=== PATIENT | male | born 1940 | race Caucasian/White ===

== ENCOUNTER → 2018-02-10 10:17 | Outpatient (CLI) | payer MEDICARE, OTHER, SELFPAY ==
--- NOTE | 2018-02-10 10:31 | MRI_ITS ---
STUDY: MRI RIGHT KNEE REASON FOR EXAM: Right knee pain for approximately 6 weeks, evaluate for medial meniscal tear. TECHNIQUE: Standardized fat and water weighted pulse sequences were obtained in all 3 orthogonal planes. COMPARISON: None. FINDINGS: There is a radial tear at the root of the posterior horn of the medial meniscus (T2 coronal images 8, 9; T2 sagittal image 15). There is peripheral subluxation of the medial meniscus. There is arthrosis of the medial femorotibial compartment with chondral thinning of the medial femoral condyle (T2 sagittal image 17). There is subchondral bone edema of the medial tibial plateau (T2 sagittal images 17-20), a stress phenomenon. There is mild deformity of the anterior nonweightbearing portion of the medial femoral condyle (proton-density sagittal image 20; proton density coronal images 18-20) suggestive of remote injury. Normal medial collateral ligamentous complex (MCL). There is a small enthesophyte at the origin of the medial collateral ligament (proton-density coronal image 15). Normal distal semimembranosus, gracilis and semitendinosus tendons. There is mild intrasubstance myxoid degeneration of the anterior horn of the lateral meniscus without discrete lateral meniscal tear. Normal hyaline cartilage of the lateral femorotibial compartment. Normal lateral femoral condyle and tibial plateau. Normal proximal tibiofibular articulation. Normal lateral collateral (fibular) ligament. Normal popliteus tendon. Normal biceps femoris tendon. Normal anterior cruciate ligament (ACL). Normal posterior cruciate ligament (PCL). Normal congruent patellofemoral articulation. There is arthrosis of the patellofemoral compartment with chondral thinning at the medial aspect compartment (T2 sagittal image 13). Normal medial and lateral patellar retinaculum. Normal visualized quadriceps tendon. Normal patellar tendon. Normal Hoffa's fat pad. There is a very small joint effusion. There is a thin medial patellar plica. There is atrophy with partial fat replacement of the medial and lateral gastrocnemius muscles (proton-density coronal images 2-4) and visualized distal vastus lateralis muscle (proton-density coronal images 15-17). There is cystic change in the proximal tibia at the insertion sites of the cruciate ligaments. MRI/Lower Ext Joint Only (Routine) IMPRESSION: Radial tear at the root of the posterior horn of the medial meniscus. Subchondral bone edema of the medial tibial plateau, a stress phenomenon. Arthrosis of the medial femorotibial and patellofemoral compartments. Very small joint effusion. Atrophy of the gastrocnemius and distal vastus lateralis muscles. Electronically Signed: Phi Gunderson MD at 7:29 EST Tel , Service support ,
== END ==
PROVIDERS: Family Provider Family Medicine; PCP Family Medicine; Referring Provider Orthopaedic Surgery; Visit Provider Orthopaedic Surgery
DX: S83.241A Other tear of medial meniscus, current injury, right knee, initial encounter (principal); X58.XXXA Exposure to other specified factors, initial encounter; Y93.9 Activity, unspecified; Y92.9 Unspecified place or not applicable; Y99.9 Unspecified external cause status
CPT/HCPCS: 73721

== ENCOUNTER → 2021-01-14 10:09 | Outpatient (CLI) | payer MEDICARE, OTHER, SELFPAY ==
[2021-01-14 12:40] LABS: Absolute Lymphocyte Count 2.28 X10^3/uL (0.83-4.51); Absolute Neutrophil Count 3.3 X10^3/uL (2.0-7.7); Basophil# 0.06 X10^3/uL; Basophil% 0.9 % (0-1); Eosinophil# 0.16 X10^3/uL; Eosinophils% 2.5 % (0-5); Hematocrit 38.9 % (40-54); Lymphocyte # 2.28 X10^3/ul (0.83-4.51); Lymphocyte % 35.4 % (19-41); Mean Corp Hgb Conc 33.4 g/dL (32-36); Mean Corpuscular Volume 89.6 fL (80-94); Mean Platelet Vol. 9.7 fl (6.2-12.0); Monocyte# 0.64 X10^3/uL; Monocyte% 9.9 % (0-10); NRBC Flagged by Analyzer 0 % (0-5); Neutrophil # 3.27 X10^3/uL (2.7-7.7); Neutrophil % 50.8 % (47-70); Platelet Count 195 K/mm3 (150-450); RBC Distribution Width CV 13.3 % (11.6-14.6); Red Blood Count 4.34 M/mm3 (4.6-6.2); White Blood Count 6.4 K/mm3 (4.4-11.0)
[2021-01-14 13:11] LABS: AST(SGOT) 22 U/L (15-37); Alanine Aminotransfer ALT/SGPT 29 U/L (16-61); Albumin, Serum 3.7 g/dL (3.2-5.0); Alkaline Phosphatase 89 U/L (45-117); Anion Gap 9 (5-15); BUN 18 mg/dL (7-18); BUN/Creat Ratio 24.2 RATIO (10-20); Calcium,Total 9.6 mg/dL (8.5-10.1); Chloride 103 mmol/L (98-107); Cholesterol 222 mg/dL (200); Creatinine, Serum 0.74 mg/dL (0.70-1.30); EST Glomerular Filtration Rate 108 mL/min (>60); Est Glom Filt Rate - Afr Amer 130 mL/min (>60); Globulin 3.7 g/dL (2.2-4.2); Glucose 109 mg/dL (74-106); High Density Lipoprotein 57 mg/dL; PSA,Total - Annual Screen 1.35 ng/mL (0.00-4.00); Potassium 3.7 mmol/L (3.5-5.1); Protein, Total 7.4 g/dL (6.4-8.2); Sodium Level 138 mmol/L (136-145); Thyroid Stim Hormone (TSH) 4.54 uIU/mL (0.358-3.74); Triglycerides 156 mg/dL; Very Low Density Lipoprotein 31 mg/dL (5-40)
[2021-01-14 14:48] LABS: Free T3 2.6 pg/mL (2.18-3.98)
== END ==
PROVIDERS: PCP Internal Medicine; Referring Provider Internal Medicine; Visit Provider Internal Medicine
DX: I10 Essential (primary) hypertension (principal); E78.5 Hyperlipidemia, unspecified; R79.89 Other specified abnormal findings of blood chemistry; Z12.5 Encounter for screening for malignant neoplasm of prostate
CPT/HCPCS: 36415; 80053; 80061; 84153; 84439; 84443; 84481; 85025; G0103

== ENCOUNTER 2021-03-18 11:01 | Outpatient (CLI) | payer MEDICARE, OTHER, SELFPAY ==
[2021-03-18 14:27] LABS: Free T3 2.6 pg/mL (2.18-3.98); T4 Free Direct 0.74 ng/dL (0.76-1.46); Thyroid Stim Hormone (TSH) 4.04 uIU/mL (0.358-3.74)
== END 2021-03-18 23:59 | disposition home or self-care (01) ==
LOC: LAB 11:05
PROVIDERS: PCP Internal Medicine; Visit Provider Internal Medicine
DX: E03.9 Hypothyroidism, unspecified (principal)
CPT/HCPCS: 36415; 84439; 84443; 84481

== ENCOUNTER → 2021-08-18 | Outpatient (CLI) | payer MEDICARE, OTHER, SELFPAY ==
[2021-08-18 13:02] LABS: Free T3 2.2 pg/mL (2.18-3.98); T4 Free Direct 0.73 ng/dL (0.76-1.46); Thyroid Stim Hormone (TSH) 3.53 uIU/mL (0.358-3.74)
== END | disposition home or self-care (01) ==
LOC: LAB 11:55
PROVIDERS: PCP Internal Medicine; Visit Provider Internal Medicine
DX: E03.9 Hypothyroidism, unspecified (principal)
CPT/HCPCS: 36415; 84439; 84443; 84481

== ENCOUNTER 2022-04-15 12:19 | Inpatient (IN) | payer MEDICARE, OTHER, SELFPAY ==
[2022-04-15 12:20] VITALS: BP 182/86; PULSE 74; RESP 14; TEMP 36.4; O2SAT 98; BMI 31.9
[2022-04-15 12:36] VITALS: BP 182/86; PULSE 74; RESP 14; TEMP 36.4; O2SAT 98
[2022-04-15] MEDS: Aspirin 81 MG TAB.CHEW 324 MG PO (12:50)
--- NOTE | 2022-04-15 12:50 | ED.VIS.CHEST ---
HPI History of Present Illness Chief Complaint: Chest Pain Informant: patient Onset/Context/Timing Onset: Weeks Activity at onset: gradual Timing: Intermittent Quality: Positive for Heaviness, Pain, Pressure and Tightness Location: Substernal Current Severity: Gone Maximum Severity: Moderate Worsened By: Exertion Relieved By: Rest Associated Symptoms: Positive for Dyspnea Narrative Narrative: 82-year-old male history of hypertension. He has had no prior cardiac history has never had a heart cath he does not remember a prior stress test. States the last 2 weeks he has had exertional chest pain and exertional dyspnea. Still has they have horses at his home when he goes out to do chores with the horses it typically takes him 45 minutes. In the past he could do that without any problem. He says now he has to sit down or rest 3 times to be able to get this done. He said once he rests 10 minutes his chest pain resolves. Also said when he takes his dogs out for a walk he has to rest several times while walking to have the chest pain go away. He says coming on more frequently and with more intensity over the last week. Associated dyspnea. No nausea or diaphoresis. Currently symptom-free. Also states has been radiating to his arms. Prior Similar Symptoms: No Recent Illness/Hospitalization: No CVD Risk Factors: Positive for Hypertension PE Risk Factors: Negative for Recent Travel/Surgery, Recent Immobilization, Prior DVT or PE, Cancer or OCP + Smoking + >/=35 TAD Risk Factors: Negative for Marfan's Syndrome [facility] Medical History Back problem Brainstem tumor Hearing problem Hyperlipemia Hypertension Trigeminal nerve disease Home Medications amlodipine 5 mg tablet 5 mg PO DAILY #90 tabs 01/14/21 [Rx Last Taken Unknown] potassium chloride 10 mEq tablet,extended release 10 meq PO BID #180 tabs 01/14/21 [Rx Last Taken Unknown] carbamazepine 200 mg tablet 200 mg PO TID #270 tabs 01/12/22 [Rx Last Taken Unknown] hydrochlorothiazide 25 mg tablet 25 mg PO DAILY #90 tabs 01/12/22 [Rx Last Taken Unknown] levothyroxine 25 mcg tablet 25 mcg PO DAILY #90 tabs 01/12/22 [Rx Last Taken Unknown] lisinopril 40 mg tablet 40 mg PO DAILY #90 tabs 01/12/22 [Rx Last Taken Unknown] lovastatin 20 mg tablet 20 mg PO QPM #90 tabs 01/12/22 [Rx Last Taken Unknown] Allergy/AdvReac Type Severity Reaction Status Date / Time No Known Allergies Allergy Verified 09/17/21 13:27 Surgical History History of prostate surgery Hx of skin graft Social History Smoking Status: Former smoker how long ago did patient quit smokin02/08/1969 alcohol intake: never substance use type: does not use what type of physical activity do you participate in: none ROS ROS ED ROS Narrative Exertional chest pain. Exertional dyspnea. Review of Systems ROS Unobtainable: Denies due to encephalopathy Constitutional Constitutional ED: Denies chills or fever(s) Eyes Eyes: Reports none ENT ENT ED: Denies ear pain or rhinorrhea Cardiovascular Cardiovascular: Reports as per HPI and chest pain; Denies palpitations or racing heartbeat Respiratory/Chest Respiratory/Chest: Reports dyspnea and dyspnea on exertion; Denies cough Gastrointestinal Gastrointestinal: Denies abdominal pain, constipation, diarrhea, melena, nausea or vomiting Genitourinary Genitourinary ED: Denies dysuria or hematuria Musculoskeletal Musculoskeletal: Denies arthralgias Integumentary Denies abscess or Abrasions Neurologic Neurologic: Denies headache(s) Psychiatric Psychiatric: Denies anxiety Endocrine Endocrinology: Denies cold intolerance Hematologic/Lymphatic Hematologic/Lymphatic: Denies easy bleeding or easy bruising Allergic/Immunologic Allergic/Immunologic ED: Denies mouth swelling or tongue swelling EXAM Physical Exam Narrative Exam Narrative: Well-appearing 82-year-old male. Vital signs are stable afebrile. Initial blood pressure 182/86. Pulse ox 90% on room air no hypoxia. He is currently in no distress. Currently is not having any chest pain or shortness of breath. H EENT exam unremarkable. Neck nontender no JVD. Lungs clear to auscultation bilaterally. Heart regular rate and rhythm rate about 75 no appreciable murmur. Chest were nontender. Abdomen soft nontender. Moving all 4 extremities. Calves are nontender that edema or cords. Neurologically is awake and alert with no focal motor deficits. Const Vital Signs: 04/15/22 12:20 04/15/22 12:27 04/15/22 12:36 Temperature 97.6 F L 97.6 F L Temperature Source Temporal Temporal Pulse Rate 74 74 Respiratory Rate 14 14 Respiratory Effort Short of Breath Blood Pressure 182/86 H 182/86 H Blood Pressure Mean 118 118 Pulse Ox 98 98 Oxygen Delivery Method Room Air Room Air 04/15/22 12:46 Temperature Temperature Source Pulse Rate Respiratory Rate Respiratory Effort Blood Pressure Blood Pressure Mean Pulse Ox Oxygen Delivery Method Room Air Positive well nourished, well developed and obese; Negative for cachectic, contractures or unkempt General Appearance ED: well developed and NAD; Negative for unkempt, cachectic, contractures or pallor Nutritional Appearance: obese; Negative for cachectic HEENT Reports moist mucous membranes normocephalic; Negative for atraumatic or trauma Eyes PERRL and EOMs intact bilaterally General Eye ED: Negative for pale conjunctiva or scleral icterus Neck no lymphadenopathy, supple and no JVD General: Negative for tenderness Chest Wall inspection of chest normal and palpation of chest normal Chest: Negative for tenderness Resp normal respiratory effort and clear to auscultation bilaterally Effort and Inspection: Negative for respiratory distress Auscultation: Negative for rales, rhonchi or wheezes Cardio regular rate, regular rhythm, S1 normal heart sound, S2 normal heart sound and no murmurs Rate: Negative for bradycardia or tachycardic Rhythm: Negative for abnormal rhythm Peripheral Pulses: pulses 2+ throughout GI normal to inspection, nondistended, normoactive bowel sounds, soft to palpation, non-tender, non-distended and no masses Auscultation: Negative for hyperactive bowel sounds Palpation: Negative for splenomegaly Back/Spine no CVA tenderness and no thoracic nor lumbar tenderness General Back: Negative for CVA tenderness Cervical Spine: Negative for cervical spine tenderness Extremity normal to inspection General Extremety ED: Negative for edema or pulses abnormal General Extremity: Negative for edema or pulses abnormal Neuro oriented x3 and CN's II-XII intact bilaterally Sensorium / Orientation: awake, alert, oriented to person and oriented to place; Negative for oriented to time, confused, lethargic or stuporous Motor Exam: strength 5/5 throughout Psych mental status grossly normal Appearance: Negative for unkempt Attitude: No agitated Mood & Affect: Negative for depressed, anxious or tearful Skin no rashes or lesions noted and no wounds General Skin Exam: Negative for jaundice or pallor Rashes: No rashes noted Trauma: Negative for abrasion or laceration Heart Score History: Highly Suspicious ECG: Normal Risk Factors: 1 or 2 Risk Factors Troponin: </= Normal Limit Score: 3 MDM MDM MDM Narrative Medical decision making narrative: 82-year-old male with new onset exertional chest pain and dyspnea for the last 2 weeks that is highly suspicious for unstable angina. Patient has a normal exam. Currently symptom-free. He will undergo cardiac work-up. Be given aspirin. I already spoke to cardiology because I think this patient most likely will need a heart catheterization. Once the labs return I will speak to the hospitalist about admission to the PCU. Repeat exam patient doing well at 1:53 PM. He will be admitted for non-ST elevation IN and unstable angina. I have spoken to general cardiology on-call for last 2 days, interventional cardiology and the hospitalist. Hospitalist will admit to the PCU. Patient will receive heparin bolus and drip. Hospitalist will consult cardiology on admission. I discussed all test results with the patient. He understands the need for admission and further evaluation. History & Record Review Discussion w/independent historian: Patient Lab Data Attestation: I reviewed the patient's lab results. Lab results narrative: CBC shows a white count of 7. H&H of 13.8 and 40. Platelets 187,000. Electrolytes are unremarkable. Gap is 7. BUN 21 creatinine 0.7. Glucose of 113. Troponin elevated at 2134. Labs: Laboratory Results - last 24 hr 04/15/22 04/15/22 12:25 12:25 WBC 7.1 RBC 4.62 Hgb 13.8 Hct 40.6 MCV 87.9 MCH 29.9 MCHC 34.0 RDW Std Deviation 42.2 RDW Coeff of Maday 13.1 Plt Count 187 MPV 8.9 Immature Gran % (Auto) 0.400 Neut % (Auto) 48.2 Lymph % (Auto) 38.1 [place] % (Auto) 10.5 H Eos % (Auto) 2.2 Baso % (Auto) 0.6 Absolute Neuts (auto) 3.4 Absolute Lymphs (auto) 2.72 Nucleated RBC % 0 Sodium 137 Potassium 3.9 Chloride 104 Carbon Dioxide 26.0 Anion Gap 7 BUN 21 H Creatinine 0.76 Estim Creat Clear Calc 59.82 Est GFR (MDRD) Af Amer 127 Est GFR (MDRD) Non-Af 105 BUN/Creatinine Ratio 27.7 H Glucose 113 H Calcium 10.3 H Troponin I High Sens 2134 H* Radiography Chest X-Ray - ED: 1 View, Read by ED Physician, Read by Radiologist, Heart, Mediastinum, Bony Structures, No Acute Disease and Chronic Changes Diagnostic Testing: Clinical Impression(s) from Imaging Studies Chest X-Ray 04/15/22 12:57 IMPRESSION: No radiographic evidence of acute cardiopulmonary disease. Electronically Signed: Destiny Luo MD at 13:15 EST , Chest x-ray, portable, single view shows no acute abnormality. Interpreted both by myself and the radiologist. Rhythm Strip Rhythm Strip: Sinus Rhythm Rate: 74 Ectopy: None EKG Initial EKG: Attestation: I personally reviewed and interpreted this EKG as follows: Interpretation: Sinus Rhythm and No Acute Injury Pattern Comments: Normal sinus rhythm rate of 74. No signs of acute IN. This he does have 2-3 signs consistent with LVH. Unchanged from prior EKG from January 2016. Prior EKG tracings: available for review Prior: Unchanged Management Discussion w/another healthcare provider: Hospitalist and Keyboard Operator Critical Care Time Critical Care Time: Yes Critical care time (excluding procedures): 30-74 minutes, Including time spent:, Discussing w/Patient &/or Family/Doweler, Discussing w/Consultants, Arranging Admission or Transfer, Performing Direct Patient Care at Bedside and - (33 min) Discharge Plan Triage Chief Complaint: Chest Pain ED Provider: Luis Miguel Mccabe Dx/Rx/DC Orders Clinical Impression: Chest pain, Non-ST elevated myocardial infarction, Unstable angina Prescriptions: No Action amlodipine 5 mg tablet 5 mg PO DAILY Qty: 90 3RF potassium chloride 10 mEq tablet extended release 10 meq PO BID Qty: 180 3RF carbamazepine 200 mg tablet 200 mg PO TID Qty: 270 3RF hydrochlorothiazide 25 mg tablet 25 mg PO DAILY Qty: 90 3RF levothyroxine 25 mcg tablet 25 mcg PO DAILY Qty: 90 3RF Rx Instructions: Take 1 tab daily, each morning on an empty stomach. Do not eat or drink for 20 minutes after taking medication. Take medication at same time every day. lisinopril 40 mg tablet 40 mg PO DAILY Qty: 90 3RF lovastatin 20 mg tablet 20 mg PO QPM Qty: 90 3RF Primary Care Provider: Jolly Brady Referrals: Jolly Brady MD [Primary Care Provider] - Disposition Disposition: Acute Care Hospital [facility]
[2022-04-15 12:57] LABS: Absolute Lymphocyte Count 2.72 X10^3/uL (0.83-4.51); Absolute Neutrophil Count 3.4 X10^3/uL (2.0-7.7); Basophil# 0.04 X10^3/uL; Basophil% 0.6 % (0-1); Eosinophil# 0.16 X10^3/uL; Eosinophils% 2.2 % (0-5); Hematocrit 40.6 % (40-54); Hemoglobin 13.8 g/dL (13.0-16.5); Lymphocyte # 2.72 X10^3/ul (0.83-4.51); Lymphocyte % 38.1 % (19-41); Mean Corpuscular Hgb 29.9 pg (27.0-32.0); Mean Corpuscular Volume 87.9 fL (80-94); Mean Platelet Vol. 8.9 fl (6.2-12.0); Monocyte# 0.75 X10^3/uL; Monocyte% 10.5 % (0-10); NRBC Flagged by Analyzer 0 % (0-5); Neutrophil # 3.44 X10^3/uL (2.7-7.7); Neutrophil % 48.2 % (47-70); Platelet Count 187 K/mm3 (150-450); RBC Distribution Width CV 13.1 % (11.6-14.6); RBC Distribution Width SD 42.2 fl (35.1-43.9); Red Blood Count 4.62 M/mm3 (4.6-6.2); White Blood Count 7.1 K/mm3 (4.4-11.0)
--- NOTE | 2022-04-15 12:57 | RAD_ITS ---
INDICATION: chest pain EXAMINATION/TECHNIQUE: X-RAY - XR Chest 2 frontal images COMPARISON: None. FINDINGS: LINES/DEVICES: None. LUNGS: No consolidation, edema or effusion. No pneumothorax. MEDIASTINUM AND CARDIOVASCULAR STRUCTURES: Cardiac silhouette not enlarged. Central airways and mediastinal contour are unremarkable. BONES AND SOFT TISSUES: Unremarkable. RAD/Chest 1 View (Portable) IMPRESSION: No radiographic evidence of acute cardiopulmonary disease. Electronically Signed: Destiny Luo MD at 13:15 EST ,
[2022-04-15 13:13] LABS: Anion Gap 7 (5-15); BUN 21 mg/dL (7-18); BUN/Creat Ratio 27.7 RATIO (10-20); Calcium,Total 10.3 mg/dL (8.5-10.1); Chloride 104 mmol/L (98-107); Creatinine, Serum 0.76 mg/dL (0.70-1.30); EST Glomerular Filtration Rate 105 mL/min (>60); Est Glom Filt Rate - Afr Amer 127 mL/min (>60); Estimated Creatinine Clearance 59.82 ml/min; Glucose 113 mg/dL (74-106); Potassium 3.9 mmol/L (3.5-5.1); Sodium Level 137 mmol/L (136-145); Troponin-I HS (w/2H Reflex) 2134 pg/mL (3.0-78.0)
--- NOTE | 2022-04-15 13:49 | HP.PCM.HOS_ITS ---
[facility] - General General Date of Admission: 04/15/22 Date of Service: 04/15/22 Chief Complaint: Anginal quality chest pain for 2 weeks along with shortness of breath. [facility] Narrative OLGA CREWS, is a 82 M who presents came to ED for exertional chest pain along with shortness of breath for 2 weeks. The patient is states that he feels my chest is caving in, is squeezing sensations/heavy weight put on the chest when he starts doing usual house chores like taking horses out or walking. He states when he tries to do his usual work he has to stop because he cannot breathe and then chest pressure starts about 4-5/10 intensity. Recently has to sit down and rest for 3 times while doing his usual house chores as compared to before when he used to do without any problem, shortness of breath or chest pain. Chest pressure radiates to both arms and the hands feels numb or heavy. After resting, it takes about 5 to 10 minutes for chest pressures or shortness of breath to go away. He does not have sublingual nitro pill. 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 He denies passing out/syncope or diaphoresis. In ED, twelve-lead EKG was done which shows normal sinus rhythm, LVH 74 bpm, nonspecific ST-T changes, QTc 406 ms. Previous EKG R 01/13/2016 and similar with LVH at 60 bpm. First troponin done in the ER is very high therefore being admitted with a diagnosis of non-STEMI. Patient already had 324 mg aspirin and started on heparin drip. Patient blood pressure is also high in ED. Social history: Former smoker. Family history: His brother had minor heart attack in his cardiac stent. His parents both have but they did not have heart disease. [facility] Medical History Back problem Brainstem tumor Hearing problem Hyperlipemia Hypertension Trigeminal nerve disease Home Medications amlodipine 5 mg tablet 5 mg PO DAILY #90 tabs 01/14/21 [Rx Last Taken Unknown] potassium chloride 10 mEq tablet,extended release 10 meq PO BID #180 tabs 01/14/21 [Rx Last Taken Unknown] carbamazepine 200 mg tablet 200 mg PO TID #270 tabs 01/12/22 [Rx Last Taken Unknown] hydrochlorothiazide 25 mg tablet 25 mg PO DAILY #90 tabs 01/12/22 [Rx Last Taken Unknown] levothyroxine 25 mcg tablet 25 mcg PO DAILY #90 tabs 01/12/22 [Rx Last Taken Unknown] lisinopril 40 mg tablet 40 mg PO DAILY #90 tabs 01/12/22 [Rx Last Taken Unknown] lovastatin 20 mg tablet 20 mg PO QPM #90 tabs 01/12/22 [Rx Last Taken Unknown] Allergy/AdvReac Type Severity Reaction Status Date / Time No Known Allergies Allergy Verified 09/17/21 13:27 Surgical History History of prostate surgery Hx of skin graft Social History Smoking Status: Former smoker how long ago did patient quit smokin02/08/1969 alcohol intake: never substance use type: does not use what type of physical activity do you participate in: none ROS ROS Narrative Constitutional: Reports fatigue and weakness while doing usual work as described in HPI. HEENT: Reports systems reviewed and no addt'l complaints, except as documented Respiratory/Chest: As described in HPI Gastrointestinal: Denies coffee ground emesis, hematemesis or vomiting Genitourinary: Denies burning urination or new urinary tract symptoms Musculoskeletal: Denies joint pain and limited range of motion Neurologic: Trigeminal neuralgia on carbamazepine. 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 No rash Endocrinology: Reports systems reviewed and no addt'l complaints, except as documented Hematologic/Lymphatic: Reports systems reviewed and no addt'l complaints, except as documented Rest 14 ROS are negative except as mentioned in HPI Vital Signs Vital Signs Vital Signs: 04/15/22 12:20 04/15/22 12:27 04/15/22 12:36 Temperature 97.6 F L 97.6 F L Temperature Source Temporal Temporal Pulse Rate 74 74 Respiratory Rate 14 14 Respiratory Effort Short of Breath Blood Pressure 182/86 H 182/86 H Blood Pressure Mean 118 118 Pulse Ox 98 98 Oxygen Delivery Method Room Air Room Air 04/15/22 12:46 Temperature Temperature Source Pulse Rate Respiratory Rate Respiratory Effort Blood Pressure Blood Pressure Mean Pulse Ox Oxygen Delivery Method Room Air Weight Weight: 222 lb 14.197 oz Body Mass Index (BMI) 31.9 Physical Exam Narrative General: Alert, Oriented x3, Cooperative HEENT: Hard of hearing bilateral. Atraumatic, PERRLA, EOMI, Normocephalic Oral: Oral mucosa moist. No Gingival or Mucosal Lesions/ Ulcerations Neck: Supple, No JVD, Negative Carotid Bruits Lungs: Air entry diminished in bilateral lung bases. No crepitation/rhonchi Cardiovascular: Regular rate, Regular Rhythm, Normal S1, Normal S2, soft systolic murmur right second ICS, and LLSB feels like click. Abdomen: Bowel Sounds Present, Soft, Non Tender, Non-Distended : No renal angle tenderness. No suprapubic tenderness. Extremities: No edema, Capillary Refill Less than 3 Seconds Skin: No rashes, No breakdown Musculoskeletal: No Tenderness to Palpation of Joints or Extremities, muscle strength 5/5 at hip and knee joints. Neurological: Cranial nerves II-XII grossly intact, DTR 2+/4 and Symmetrical, Neuro grossly intact Psych/Mental Status: Normal Affect, Appropriate. Results Lab / Micro Data Result Diagrams: 04/15/22 12:25 04/15/22 12:25 Labs: Laboratory Results - last 24 hr 04/15/22 12:25: WBC 7.1, RBC 4.62, Hgb 13.8, Hct 40.6, MCV 87.9, MCH 29.9, MCHC 34.0, RDW Std Deviation 42.2, RDW Coeff of Maday 13.1, Plt Count 187, MPV 8.9, Immature Gran % (Auto) 0.400, Neut % (Auto) 48.2, Lymph % (Auto) 38.1, [place] % (Auto) 10.5 H, Eos % (Auto) 2.2, Baso % (Auto) 0.6, Absolute Neuts (auto) 3.4, Absolute Lymphs (auto) 2.72, Nucleated RBC % 0 04/15/22 12:25: Sodium 137, Potassium 3.9, Chloride 104, Carbon Dioxide 26.0, Anion Gap 7, BUN 21 H, Creatinine 0.76, Estim Creat Clear Calc 59.82, Est GFR (MDRD) Af Amer 127, Est GFR (MDRD) Non-Af 105, BUN/Creatinine Ratio 27.7 H, G lucose 113 H, Calcium 10.3 H, Troponin I High Sens 2134 H* Rhythm Strip Rhythm Strip: Sinus Rhythm Rate: 74 Ectopy: None Radiology Impression Chest X-Ray 04/15/22 12:57 IMPRESSION: No radiographic evidence of acute cardiopulmonary disease. Electronically Signed: Destiny Luo MD at 13:15 EST , Assessment & Plan Assessment/Plan (1) Non-ST elevated myocardial infarction: PLAN: Plan This is a 82-year-old gentleman is being admitted for 2 weeks history of exertional chest pain and dyspnea, shortness of breath and lab consistent with non-STEMI. 1. Unstable angina/non-STEMI: Patient is being admitted in PCU. Twelve-lead EKG initially reviewed does not show acute change. Troponin is high to 134. Patient is started on IV heparin drip. Started on carvedilol, high intensity statin and aspirin. Serial cardiac enzymes and EKG. Senior Electronics Technician is consulted. 2D echo is ordered. Patient will need C. 2. Accelerated essential hypertension with LVH changes on EKG: Patient BP was high 182/86 in ED. HCTZ 25 mg ordered, blood pressure is better 155/77. Continue home antihypertensive medications, lisinopril, amlodipine and HCTZ. Patient also had potassium supplement. 3. Trigeminal neuralgia: Patient is on carbamazepine 200 mg 3 times daily; continued. 4. Dyslipidemia: Hold lovastatin. Fasting profile tomorrow AM. Started on atorvastatin. 5. 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 Patient does not have any acute issues regarding this diagnoses. VTE prophylaxis: Moderate to high risk. Patient is on IV heparin drip. Living will/advanced directive/end of life care: Patient does not have living will or advanced directive. His is next of kin but she is on wheelchair. Her daughter also lives in 1 mile distance. After discussion of benefits/risks procedures involved with full code, DNR CC arrest and DNR CC, the patient opted for full code. Patient does want artificial life support including intubation, tube feed, ventilator and/chest compression, central venous catheter, vasopressor and DC shock if needed Total time spent in [id number] encounter in discussion of advanced directive 17 minutes. Laboratory Results 04/15/22 12:25: WBC 7.1, RBC 4.62, Hgb 13.8, Hct 40.6, MCV 87.9, MCH 29.9, MCHC 34.0, RDW Std Deviation 42.2, RDW Coeff of Maday 13.1, Plt Count 187, MPV 8.9, Immature Gran % (Auto) 0.400, Neut % (Auto) 48.2, Lymph % (Auto) 38.1, [place] % (Auto) 10.5 H, Eos % (Auto) 2.2, Baso % (Auto) 0.6, Absolute Neuts (auto) 3.4, Absolute Lymphs (auto) 2.72, Nucleated RBC % 0 04/15/22 12:25: Sodium 137, Potassium 3.9, Chloride 104, Carbon Dioxide 26.0, Anion Gap 7, BUN 21 H, Creatinine 0.76, Estim Creat Clear Calc 59.82, Est GFR (MDRD) Af Amer 127, Est GFR (MDRD) Non-Af 105, BUN/Creatinine Ratio 27.7 H, Glucose 113 H, Calcium 10.3 H, Troponin I High Sens 2134 H* 04/15/22 12:25: Phosphorus 2.6, Magnesium 2.1 04/15/22 12:25: PT 13.6, INR 1.1, APTT 33.4 Charges/Coding Visit Charges Inpatient E&M: 18900 Init Hosp L3 Procedures Hospitalists Procedures: 08480 Advncd Care Plan 30 Min
[2022-04-15 13:59] VITALS: BP 155/77; PULSE 62; RESP 18; TEMP 36.7; O2SAT 99
[2022-04-15 14:05] LABS: Magnesium 2.1 mg/dL (1.6-2.6); Phosphorus 2.6 mg/dL (2.5-4.9)
[2022-04-15 14:12] LABS: International Normalized Ratio 1.1; Prothrombin Time (Protime)PT. 13.6 SECONDS (11.7-14.9)
[2022-04-15] MEDS: Heparin Injection (Vial) 5,000 UNIT/ML VIAL 4000 UNIT IV (14:12)
[2022-04-15 14:13] LABS: Partial Thromboplast Time 33.4 Seconds (24.1-36.2)
[2022-04-15] MEDS: HEPARIN/D5w 25,000 UNITS 25,000 UNITS/250 ML IV.SOLN. 10 UNITS CONT INF (14:17)
[2022-04-15 14:49] VITALS: BMI 30.9
[2022-04-15 14:49] LABS: Reflex Troponin-HS? (from REC) Y
[2022-04-15 14:53] VITALS: O2SAT 97
[2022-04-15 15:00] VITALS: BP 184/88; PULSE 56; RESP 23; TEMP 36.4; O2SAT 97
[2022-04-15] MEDS: Lactated Ringers 1,000 ML 75 ML IV (15:54)
[2022-04-15] MEDS: Carvedilol 6.25 MG Tablet PO (15:54)
[2022-04-15] MEDS: hydroCHLOROthiazide 25 MG Tablet PO (15:54)
[2022-04-15 16:07] LABS: Troponin-I HS 3350 pg/mL (3.0-78.0)
[2022-04-15] MEDS: Potassium Chloride Oral Tablet 10 MEQ PO (17:47)
[2022-04-15] MEDS: Lisinopril 40 MG Tablet PO (17:47)
--- NOTE | 2022-04-15 20:08 | PCM.CONS.C ---
Assessment & Plan Assessment/Plan (1) Unstable angina: PLAN: The patient has symptoms which appeared initially compatible with stable exertional angina pectoris. However the time of this appears to be worsening to the point where it may be compatible with an unstable angina pectoris. At the same time he has been evaluated. He has been found to have objective findings compatible with an acute non-ST segment elevation SD. At the present time he is resting comfortably. He will continue to be monitored. His cardiac enzymes and ECG will be followed. He will be asked to have an echocardiogram to assess his left ventricular wall motion and systolic function. He was recommended for further evaluation with diagnostic cardiac catheterization. The procedures were discussed with him. He was agreeable to this approach. In the interim he will continue medical therapy which includes his aspirin, nitrates as needed, beta-blockers, ALBAN inhibitor therapy, lipid-lowering therapy with statins, and his anticoagulant therapy. (2) Non-ST elevated myocardial infarction: PLAN: The patient does have findings compatible with an acute non-ST segment elevation SD. This is based upon his high-sensitivity troponin I level changes. Thus far there is been no other etiology to explain his symptoms or these findings. He will continue to be monitored and he will continue medical management as noted above. He will proceed with noninvasive and invasive valuation as noted above. (3) Hyperlipemia: PLAN: The patient will continue with lipid-lowering therapy. (4) Hypertension: PLAN: The patient states his blood pressure has been challenging to control. His blood pressure will be monitored. His medication can be adjusted as needed. Addt'l Comments The patient's case was discussed and reviewed with the patient, Dr. Mccabe at the [facility] emergency department staff, and Dr. Gallardo of the [facility] staff. Comment: Time spent in the patient's overall evaluation, examination, review of medical records, review of radiologic images, placing orders, documentation, and discussion with the patient and the medical staff members, etc.: 60 minutes. HPI Consult Data Date of Consult: 04/15/22 HPI Narrative HPI Narrative: OLGA CREWS, is a 82 year old white male who presents for vascular consultation based upon concerns of an acute non-ST segment elevation SD superimposed upon a history of hyperlipidemia and hypertension. The patient states for approximately the last 2 weeks she has been noticing exertional symptoms of chest discomfort which she describes as a compression on his chest that radiates down both upper extremities that improves with rest. He also notes when this occurs he feels more short of breath and dyspneic that also improves with rest. He states this is progressively gotten worse over the last 2 weeks to limit his abilities to complete his household related activities/chores which do include helping to take care of 10 horses and his spouse. He states his symptoms have gotten to the point where he can only walk a very short distance without noticing the discomfort. At the same time he has not had any associated nausea, emesis, or diaphoresis. He denies any orthopnea or PND or peripheral pitting edema. He denies any history of near syncope or syncope. To the best of his knowledge she has never required cardiovascular evaluation. Based upon his symptoms he presented to the emergency department for further evaluation. He was noted to have a high-sensitivity troponin I level 2134 which is subsequently increased to 3350. His ECG demonstrated sinus rhythm with minimal voltage criteria for LVH with nonspecific ST and T wave changes. His chest x-ray was reviewed. He did not appear to have any acute cardiopulmonary disease process. He was subsequently placed in the PCU for further evaluation and care. He was started on medical therapy which included aspirin, carvedilol, in addition to continuation of his HCTZ therapy, lisinopril therapy, amlodipine therapy, and his statin therapy. He was also placed on IV heparin. At the present time he appears to be resting comfortably. He has no acute symptoms at rest. [facility], LAT[facility] Medical History Back problem Brainstem tumor Hearing problem Hyperlipemia Hypertension Trigeminal nerve disease Home Medications amlodipine 5 mg tablet 5 mg PO DAILY #90 tabs 01/14/21 [Rx Last Taken Unknown] potassium chloride 10 mEq tablet,extended release 10 meq PO BID #180 tabs 01/14/21 [Rx Last Taken Unknown] carbamazepine 200 mg tablet 200 mg PO TID #270 tabs 01/12/22 [Rx Last Taken Unknown] hydrochlorothiazide 25 mg tablet 25 mg PO DAILY #90 tabs 01/12/22 [Rx Last Taken Unknown] levothyroxine 25 mcg tablet 25 mcg PO DAILY #90 tabs 01/12/22 [Rx Last Taken Unknown] lisinopril 40 mg tablet 40 mg PO DAILY #90 tabs 01/12/22 [Rx Last Taken Unknown] lovastatin 20 mg tablet 20 mg PO QPM #90 tabs 01/12/22 [Rx Last Taken Unknown] Allergy/AdvReac Type Severity Reaction Status Date / Time No Known Allergies Allergy Verified 09/17/21 13:27 Surgical History History of prostate surgery Hx of skin graft Social History Smoking Status: Former smoker how long ago did patient quit smokin02/08/1969 alcohol intake: never substance use type: does not use what type of physical activity do you participate in: none ROS Constitutional Constitutional: Reports as per HPI Eyes Eyes: Reports as per HPI ENT HEENT: Reports as per HPI Cardiovascular Cardiovascular: Reports chest pain with activity Respiratory/Chest Respiratory/Chest: Reports dyspnea on exertion Gastrointestinal Gastrointestinal: Reports as per HPI Genitourinary Genitourinary: Reports as per HPI Musculoskeletal Musculoskeletal: Reports as per HPI Integumentary Integumentary: Reports as per HPI Neurologic Neurologic: Reports as per HPI Physical Exam Const alert, oriented x3, no apparent distress and healthy appearing Orientation / Consciousness: awake HEENT normocephalic, head/scalp atraumatic and hearing grossly normal bilaterally Eyes PERRL, EOMs intact bilaterally and conjunctivae normal Neck full ROM, supple and no JVD Carotids: normal carotid upstroke Resp normal respiratory effort and clear to auscultation bilaterally Cardio regular rate, regular rhythm, S1 normal heart sound and S2 normal heart sound GI normal to inspection, nondistended, normoactive bowel sounds Extremity no pedal edema Skin no rashes or lesions noted Psych mental status grossly normal Risk Stratification Risk Stratification Applicable: Yes Age >/= 65: Yes >/= 3 CAD Risk Factors (HTN, HLD, DM, family hx of CAD, or current smoker): Yes Aspirin Use in the Past 7 Days: No Severe Angina (>/= episodes in 24 hours): Yes EKG ST Changes >/= 0.5mm: No Positive Cardiac Marker: Yes MANOJ Risk Stratification Score: 4 MANOJ % Risk: 20% Risk Procedure Criteria Type of Procedure Procedure Type: Elective Elective Risks - COVID COVID Risk Discussion: The surgeon/proceduralist and patient have discussed in detail the risk of exposure to and/or potential harm posed by the COVID-19 virus with having a surgery/procedure at this time versus the risk of delaying the surgery/procedure. It is not possible to know either the risk of delaying the surgery or procedure or chance of getting an infection with perfect accuracy, but a joint decision was made between the patient and the surgeon/proceduralist to proceed at this time with the scheduled surgery/procedure as indicated on the consent form. Objective Data Vital Signs: Vital Signs Temp Pulse Resp BP Pulse Ox O2 Del Method 97.6 F L 56 L 23 H 184/88 H 97 Room Air 04/15/22 15:00 04/15/22 15:00 04/15/22 15:00 04/15/22 15:00 04/15/22 15:00 04/15/22 15:00 Oxygen Delivery Method Room Air Weight: 215 lb 6.266 oz Body Mass Index (BMI) 30.9 Lab / Micro Data Result Diagrams: 04/15/22 12:25 04/15/22 12:25 Labs: Laboratory Results - last 24 hr 04/15/22 12:25: WBC 7.1, RBC 4.62, Hgb 13.8, Hct 40.6, MCV 87.9, MCH 29.9, MCHC 34.0, RDW Std Deviation 42.2, RDW Coeff of Maday 13.1, Plt Count 187, MPV 8.9, Immature Gran % (Auto) 0.400, Neut % (Auto) 48.2, Lymph % (Auto) 38.1, [place] % (Auto) 10.5 H, Eos % (Auto) 2.2, Baso % (Auto) 0.6, Absolute Neuts (auto) 3.4, Absolute Lymphs (auto) 2.72, Nucleated RBC % 0 04/15/22 12:25: Sodium 137, Potassium 3.9, Chloride 104, Carbon Dioxide 26.0, Anion Gap 7, BUN 21 H, Creatinine 0.76, Estim Creat Clear Calc 59.82, Est GFR (MDRD) Af Amer 127, Est GFR (MDRD) Non-Af 105, BUN/Creatinine Ratio 27.7 H, Glucose 113 H, Calcium 10.3 H, Troponin I High Sens 2134 H* 04/15/22 12:25: Phosphorus 2.6, Magnesium 2.1 04/15/22 12:25: PT 13.6, INR 1.1, APTT 33.4 04/15/22 15:14: Troponin I High Sens 3350 H* Rhythm Strip Rhythm Strip: Sinus Rhythm Rate: 74 Ectopy: None Cardiology Labs/Tests 04/15/22 12:25: WBC 7.1, RBC 4.62, Hgb 13.8, Hct 40.6, MCV 87.9, MCH 29.9, MCHC 34.0, Plt Count 187, MPV 8.9, Immature Gran % (Auto) 0.400, Neut % (Auto) 48.2, Lymph % (Auto) 38.1, [place] % (Auto) 10.5 H, Eos % (Auto) 2.2, Baso % (Auto) 0.6, Absolute Neuts (auto) 3.4, Nucleated RBC % 0 04/15/22 12:25: Sodium 137, Potassium 3.9, Chloride 104, Carbon Dioxide 26.0, Anion Gap 7, BUN 21 H, Creatinine 0.76, Est GFR (MDRD) Af Amer 127, Est GFR (MDRD) Non-Af 105, BUN/Creatinine Ratio 27.7 H, Glucose 113 H, Calcium 10.3 H 04/15/22 12:25: Phosphorus 2.6, Magnesium 2.1 04/15/22 12:25: PT 13.6, INR 1.1, APTT 33.4 Rhythm: Sinus rhythm EKG: As noted above Radiography Diagnostic Testing: Radiology Impression Chest X-Ray 04/15/22 12:57 IMPRESSION: No radiographic evidence of acute cardiopulmonary disease. Electronically Signed: Destiny Luo MD at 13:15 EST ,
[2022-04-15 20:41] LABS: Partial Thromboplast Time 74.3 Seconds (24.1-36.2)
[2022-04-15 20:48] LABS: Troponin-I HS 3085 pg/mL (3.0-78.0)
[2022-04-15 21:24] VITALS: BP 147/72; PULSE 58; RESP 18; TEMP 36.4; O2SAT 97
[2022-04-15] MEDS: Carvedilol 6.25 MG Tablet 3.125 MG PO (21:31)
[2022-04-15] MEDS: Atorvastatin Calcium 40 MG Tablet PO (21:31)
[2022-04-16] VITALS (12 sets, daily range): BP systolic 127–186; BP diastolic 61–99; PULSE 47–62; RESP 12–18; TEMP 36.3–36.7; O2SAT 97–100; BMI 30.9
[2022-04-16 02:16] LABS: Hematocrit 37.6 % (40-54); Hemoglobin 12.8 g/dL (13.0-16.5); Mean Corpuscular Volume 88.1 fL (80-94); Mean Platelet Vol. 8.7 fl (6.2-12.0); Platelet Count 160 K/mm3 (150-450); RBC Distribution Width CV 13.2 % (11.6-14.6); RBC Distribution Width SD 42.4 fl (35.1-43.9); Red Blood Count 4.27 M/mm3 (4.6-6.2); White Blood Count 7.5 K/mm3 (4.4-11.0)
[2022-04-16 02:26] LABS: Partial Thromboplast Time 63.6 Seconds (24.1-36.2)
[2022-04-16 02:35] LABS: Hemoglobin A1c 5.8 % (3.8-5.6)
[2022-04-16 02:41] LABS: ALB/GLOB Ratio 1.1 RATIO (0.9-2.4); AST(SGOT) 27 U/L (15-37); Alanine Aminotransfer ALT/SGPT 22 U/L (16-61); Albumin, Serum 3.3 g/dL (3.2-5.0); Alkaline Phosphatase 71 U/L (45-117); Anion Gap 4 (5-15); BUN 19 mg/dL (7-18); BUN/Creat Ratio 26.5 RATIO (10-20); Calcium,Total 9.6 mg/dL (8.5-10.1); Chloride 101 mmol/L (98-107); Cholesterol 201 mg/dL (200); Creatinine, Serum 0.72 mg/dL (0.70-1.30); EST Glomerular Filtration Rate 112 mL/min (>60); Est Glom Filt Rate - Afr Amer 135 mL/min (>60); Estimated Creatinine Clearance 59.82 ml/min; Globulin 3.1 g/dL (2.2-4.2); Glucose 114 mg/dL (74-106); High Density Lipoprotein 56 mg/dL; Potassium 3.9 mmol/L (3.5-5.1); Protein, Total 6.4 g/dL (6.4-8.2); Sodium Level 135 mmol/L (136-145); Thyroid Stim Hormone (TSH) 4.53 uIU/mL (0.358-3.74); Triglycerides 138 mg/dL; Very Low Density Lipoprotein 28 mg/dL (5-40)
[2022-04-16] MEDS: 0.9% Normal Saline 1,000 ML 15 ML IV (04:56)
[2022-04-16] MEDS: Carvedilol 6.25 MG Tablet 3.125 MG PO ×2 (04:57→20:11)
[2022-04-16] MEDS: Levothyroxine 25 MCG TABLET PO (04:57)
[2022-04-16] MEDS: Lisinopril 40 MG Tablet PO (04:57)
[2022-04-16] MEDS: Potassium Chloride Oral Tablet 10 MEQ PO ×2 (04:57→17:42)
[2022-04-16] MEDS: carBAMazepine 200 MG Tablet PO ×3 (04:58→19:32)
[2022-04-16] MEDS: amLODIPine 5 MG Tablet PO (04:58)
[2022-04-16] MEDS: Aspirin E.C. 81 MG Tablet PO (05:19)
--- NOTE | 2022-04-16 05:55 | ECHOD_ITS ---
Reason For Study: NSTEMI Procedure This was a 2D Doppler, Color Flow transthoracic echocardiogram. The exam was of adequate technical quality. Exam performed portable in patient room. Left Ventricle Normal LV size. Left ventricular systolic function is normal. The estimated ejection fraction is 65 %. No evidence for diastolic dysfunction. No regional wall motion abnormalities noted. Right Ventricle Normal RV size. Normal systolic function. Atria The left atrium is mildly enlarged. Normal right atrium. No doppler evidence for ASD. Mitral Valve There is no mitral annular calcification. Mild diffuse mitral valve thickening. Mild (1+) mitral valve insufficiency. Tricuspid Valve Normal tricuspid valve. Mild tricuspid valve insufficiency. Right ventricular systolic pressure estimated to be 30 mmHg. Aortic Valve Trisinus/trileaflet aortic valve. Mild diffuse aortic valve thickening. Moderate focal aortic valve calcification. Pulmonic Valve The pulmonic valve is not well visualized. Great Vessels Normal sized aortic root. Calcified aortic root. Pericardium/Pleural No pericardial effusion. MMode/2D Measurements & Calculations Ao root diam: 3.7 cm LAV(MOD-sp4): 103.8 ml LVAd ap4: 33.5 cm2 LVLd ap4: 9.1 cm EDV(MOD-sp4): 99.9 ml EDV(sp4-el): 104.7 ml LVAs ap4: 16.4 cm2 LVLs ap4: 6.7 cm ESV(MOD-sp4): 34.8 ml ESV(sp4-el): 33.9 ml EF(MOD-sp4): 65.2 % EF(sp4-el): 67.6 % LVAd ap2: 32.0 cm2 SV(MOD-sp4): 65.2 ml SV(MOD-sp2): 66.0 ml LVLd ap2: 8.6 cm EDV(MOD-sp2): 100.3 ml EDV(sp2-el): 100.6 ml LVAs ap2: 16.6 cm2 LVLs ap2: 7.6 cm ESV(MOD-sp2): 34.2 ml ESV(sp2-el): 30.6 ml EF(MOD-sp2): 65.9 % SV(sp4-el): 70.8 ml LA dimension(2D): 4.5 cm LA A4 area: 30.0 cm2 RA A4 area: 17.6 cm2 Time Measurements MV dec time: 0.28 sec Doppler Measurements & Calculations MV E max simeon: 65.4 cm/sec Lat Peak E' Simeon: 10.8 cm/sec Med Peak E' Simeon: 7.8 cm/sec MV A max simeon: 55.3 cm/sec E/E' lat: 6.0 E/E' med: 8.4 MV E/A: 1.2 MV V2 max: 88.0 cm/sec Ao V2 max: 92.6 cm/sec MV max P.1 mmHg MV dec slope: 233.9 cm/sec2 Ao max P.4 mmHg MV V2 mean: 47.8 cm/sec Ao V2 mean: 62.7 cm/sec MV mean P.1 mmHg Ao mean P.8 mmHg MV V2 VTI: 33.7 cm Ao V2 VTI: 24.1 cm AV (velocity ratio): 1.1 LV V1 max: 93.6 cm/sec PA V2 max: 93.3 cm/sec TR max simeon: 258.5 cm/sec LV V1 max P.5 mmHg PA V2 mean: 66.9 cm/sec TR max P.7 mmHg LV V1 mean P.8 mmHg LV V1 mean: 63.2 cm/sec LV V1 VTI: 25.4 cm ECHO/Echo Complete Interpretation Summary Left ventricular systolic function is normal. The estimated ejection fraction is 65 %. The left atrium is mildly enlarged. Mild diffuse mitral valve thickening. Mild (1+) mitral valve insufficiency. Mild tricuspid valve insufficiency. Mild diffuse aortic valve thickening. Moderate focal aortic valve calcification. Calcified aortic root. Right ventricular systolic pressure estimated to be 30 mmHg. No evidence for diastolic dysfunction. Ordering Physician: Lai Gallardo Referring Physician: Jolly Brady M.D. Performed By: Erin Yap RCS
--- NOTE | 2022-04-16 08:13 | PN.HOSP_ITS ---
Reason for Visit Reason for Visit: Follow-up for non-STEMI. Diagnoses Hyperlipidemia, unspecified (04/15/22) Essential (primary) hypertension (04/15/22) Unstable angina (04/15/22) Non-ST elevation (NSTEMI) myocardial infarction (04/15/22) Subjective Subjective Patient did not have chest pain at rest. Went for cardiac cath. Objective Data Objective Data Vital Signs: Vital Signs Temp Pulse Resp BP Pulse Ox O2 Del Method 97.6 F L 55 L 18 127/68 H 99 Room Air 04/15/22 21:24 04/16/22 05:24 04/16/22 05:24 04/16/22 05:24 04/16/22 05:24 04/16/22 05:24 Oxygen Delivery Method Room Air Weight: 215 lb 8 oz Body Mass Index (BMI) 30.9 Intake & Output: Intake and Output for Last 24 Hours 04/14/22 04/15/22 04/16/22 23:59 23:59 23:59 Intake Total 70 / 70 1110.75 / 1110.75 Balance 70 / 70 1110.75 / 1110.75 Lab / Micro Data Result Diagrams: 04/16/22 02:05 04/16/22 02:05 Labs: Laboratory Results - last 24 hr 04/15/22 12:25: WBC 7.1, RBC 4.62, Hgb 13.8, Hct 40.6, MCV 87.9, MCH 29.9, MCHC 34.0, RDW Std Deviation 42.2, RDW Coeff of Maday 13.1, Plt Count 187, MPV 8.9, Immature Gran % (Auto) 0.400, Neut % (Auto) 48.2, Lymph % (Auto) 38.1, [place] % (Auto) 10.5 H, Eos % (Auto) 2.2, Baso % (Auto) 0.6, Absolute Neuts (auto) 3.4, Absolute Lymphs (auto) 2.72, Nucleated RBC % 0 04/15/22 12:25: Sodium 137, Potassium 3.9, Chloride 104, Carbon Dioxide 26.0, Anion Gap 7, BUN 21 H, Creatinine 0.76, Estim Creat Clear Calc 59.82, Est GFR (MDRD) Af Amer 127, Est GFR (MDRD) Non-Af 105, BUN/Creatinine Ratio 27.7 H, Glucose 113 H, Calcium 10.3 H, Troponin I High Sens 2134 H* 04/15/22 12:25: Phosphorus 2.6, Magnesium 2.1 04/15/22 12:25: PT 13.6, INR 1.1, APTT 33.4 04/15/22 15:14: Troponin I High Sens 3350 H* 04/15/22 20:18: APTT 74.3 H 04/15/22 20:18: Troponin I High Sens 3085 H* 04/16/22 02:05: WBC 7.5, RBC 4.27 L, Hgb 12.8 L, Hct 37.6 L, MCV 88.1, MCH 30.0, MCHC 34.0, RDW Std Deviation 42.4, RDW Coeff of Maday 13.2, Plt Count 160, MPV 8.7 04/16/22 02:05: Sodium 135 L, Potassium 3.9, Chloride 101, Carbon Dioxide 30.0, Anion Gap 4 L, BUN 19 H, Creatinine 0.72, Estim Creat Clear Calc 59.82, Est GFR (MDRD) Af Amer 135, Est GFR (MDRD) Non-Af 112, BUN/Creatinine Ratio 26.5 H, Glucose 114 H, Calcium 9.6, Total Bilirubin 0.30, AST 27, ALT 22, Alkaline Phosphatase 71, Total Protein 6.4, Albumin 3.3, Globulin 3.1, Albumin/Globulin Ratio 1.1, Triglycerides 138, Cholesterol 201 H, LDL Cholesterol 117, VLDL Cholesterol 28, HDL Cholesterol 56, TSH 4.53 H 04/16/22 02:05: Hemoglobin A1c 5.8 H 04/16/22 02:05: APTT 63.6 H Radiography Diagnostic Testing: Radiology Impression Chest X-Ray 04/15/22 12:57 IMPRESSION: No radiographic evidence of acute cardiopulmonary disease. Electronically Signed: Destiny Luo MD at 13:15 EST , Rhythm Strip Rhythm Strip: Sinus Rhythm Rate: 74 Ectopy: None Physical Exam Narrative Seen and examined. General: Alert, Oriented x3, Cooperative HEENT: Hard of hearing bilateral. Atraumatic, PERRLA, EOMI, Normocephalic Oral: Oral mucosa moist. No Gingival or Mucosal Lesions/ Ulcerations Neck: Supple, No JVD, Negative Carotid Bruits Lungs: Air entry diminished in bilateral lung bases. No crepitation/rhonchi Cardiovascular: Regular rate, Regular Rhythm, Normal S1, Normal S2, soft systolic murmur right second ICS, and LLSB. Abdomen: Bowel Sounds Present, Soft, Non Tender, Non-Distended : No renal angle tenderness. No suprapubic tenderness. Extremities: No edema, Capillary Refill Less than 3 Seconds Skin: No rashes, No breakdown Musculoskeletal: No Tenderness to Palpation of Joints or Extremities, muscle strength 5/5 at hip and knee joints. Neurological: Cranial nerves II-XII grossly intact, DTR 2+/4 and Symmetrical, Neuro grossly intact Psych/Mental Status: Normal Affect, Appropriate. Assessment & Plan Assessment/Plan (1) Non-ST elevated myocardial infarction: PLAN: Plan This is a 82-year-old gentleman is being admitted for 2 weeks history of exertional chest pain and dyspnea, shortness of breath and lab consistent with non-STEMI. 1.? Unstable angina/non-STEMI: Patient is being admitted in PCU.? Twelve-lead EKG initially reviewed does not show acute change.? Troponin is high to 134.? Patient is started on IV heparin drip.? Started on carvedilol, high intensity statin and aspirin.? Serial cardiac enzymes and EKG.? [employer] Canning Leader is consulted.? 2D echo is ordered.? Patient will need LHC. 04/16: Serial troponins were high.? Patient went for LHC.? 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 LM distal 50%, LAD ostial 75, severe calcification proximal and mid LAD.? Circumflex ostial 75%, proximal circumflex severe calcification, OM1 50% stenosis.? RCA mild calcification ostial 90% distal 50%.? 2D echo was done reported EF 65% with no evidence for diastolic dysfunction, no RWMA noted.? Normal RV size and systolic function.? LA mildly enlarged.? Mild MR, mild TR, mild diffuse AV thickening, RVSP 30 mmHg.? CABG recommended by horse racetrack manager.? [employer] Canning Leader Dr. Crockett talked to [facility] cardiac surgeon patient waiting for the bed for transfer. 2.? Accelerated essential hypertension with LVH changes on EKG: Patient BP was high 182/86 in ED.? HCTZ 25 mg ordered,? blood pressure is better 155/77.? Continue home antihypertensive medications, lisinopril, amlodipine and HCTZ.? Patient also had potassium supplement. : BP is elevated 164/63-180/74.? BP medication uptitrated. 3.? Trigeminal neuralgia: Patient is on carbamazepine 200 mg 3 times daily; continued. 4.? Dyslipidemia: Hold lovastatin.? Fasting profile LDL 117, TC 201, HDL 56.? Started on atorvastatin 40 mg daily, continue. 5.? Mild hypothyroidism: TSH elevated 4.5, free T4 0.75 Low.? Patient on 25 mcg levothyroxine daily at home, increased to 50 mcg daily. Other comorbidities include bilateral hearing impaired, bilateral CTS, chronic back pain and history of prostate surgery: Follow-up with PCP.? Patient does not have any acute issues regarding this diagnoses. VTE prophylaxis: Moderate to high risk.? IV heparin drip discontinued. Patient had cardiac catheter done Charges/Coding Visit Charges Inpatient E&M: 51393 Subs Hosp L2
[2022-04-16 08:50] LABS: T4 Free Direct 0.75 ng/dL (0.76-1.46)
--- NOTE | 2022-04-16 09:05 | PCM.DC.SUM ---
Providers Date of Admission: 04/15/22 Date of Discharge: 04/16/22 Primary Care Physician: Dr. Jolly Brady MD Consultations 04/15/22 15:03 Consult: Cardiology Routine Consulting Provider: Garett Crockett Reason for Consult: NSTEMI/Unstable angina EMERGENT Consult: No MD Notified: Yes Date Notified: 04/15/22 Time Notified: 13:45 Method of Notification: ED Physician Initiated Reason For Visit: ATYPICAL CHEST PAIN Diagnosis Discharge Diagnosis (1) Non-ST elevated myocardial infarction: Status: Acute Code(s): I21.4 - Non-ST elevation (NSTEMI) myocardial infarction Plan Curt is a 82-year-old gentleman is being admitted for 2 weeks history of exertional chest pain and dyspnea, shortness of breath and lab consistent with non-STEMI. 1. Unstable angina/non-STEMI: Patient is being admitted in PCU. Twelve-lead EKG initially reviewed does not show acute change. Troponin is high to 134. Patient is started on IV heparin drip. Started on carvedilol, high intensity statin and aspirin. Serial cardiac enzymes and EKG. Lead Javascript Engineer is consulted. 2D echo is ordered. Patient will need LHC. 04/16: Serial troponins were high. Patient went for LHC. 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 LM distal 50%, LAD ostial 75, severe calcification proximal and mid LAD. Circumflex ostial 75%, proximal circumflex severe calcification, OM1 50% stenosis. RCA mild calcification ostial 90% distal 50%. 2D echo was done reported EF 65% with no evidence for diastolic dysfunction, no RWMA noted. Normal RV size and systolic function. LA mildly enlarged. Mild MR, mild TR, mild diffuse AV thickening, RVSP 30 mmHg. CABG recommended by philosophy faculty member. Lead Javascript Engineer Dr. Crockett talked to [facility] cardiac surgeon patient waiting for the bed for transfer. 2. Accelerated essential hypertension with LVH changes on EKG: Patient BP was high 182/86 in ED. HCTZ 25 mg ordered, blood pressure is better 155/77. Continue home antihypertensive medications, lisinopril, amlodipine and HCTZ. Patient also had potassium supplement. : BP is elevated 164/63-1 80/74. BP medication uptitrated. 3. Trigeminal neuralgia: Patient is on carbamazepine 200 mg 3 times daily; continued. 4. Dyslipidemia: Hold lovastatin. Fasting profile LDL 117, TC 201, HDL 56. Started on atorvastatin 40 mg daily, continue. 5. Mild hypothyroidism: TSH elevated 4.5, free T4 0.75 Low. Patient on 25 mcg levothyroxine daily at home, increased to 50 mcg daily. Other comorbidities include bilateral hearing impaired, bilateral CTS, chronic back pain and history of prostate surgery: Follow-up with PCP. Patient does not have any acute issues regarding this diagnoses. VTE prophylaxis: Moderate to high risk. Patient is on IV heparin drip. Living will/advanced directive/end of life care: Patient does not have living will or advanced directive. His is next of kin but she is on wheelchair. Her daughter also lives in 1 mile distance. After discussion of benefits/risks procedures involved with full code, DNR CC arrest and DNR CC, the patient opted for full code. Patient does want artificial life support including intubation, tube feed, ventilator and/chest compression, central venous catheter, vasopressor and DC shock if needed Total time spent in [id number] encounter in discussion of advanced directive 17 minutes. Medications at Discharge Home Medications amlodipine 5 mg tablet 5 mg PO DAILY #90 tabs 01/14/21 potassium chloride 10 mEq tablet,extended release 10 meq PO BID #180 tabs 01/14/21 carbamazepine 200 mg tablet 200 mg PO TID #270 tabs 01/12/22 hydrochlorothiazide 25 mg tablet 25 mg PO DAILY #90 tabs 01/12/22 levothyroxine 25 mcg tablet 25 mcg PO DAILY #90 tabs 01/12/22 lisinopril 40 mg tablet 40 mg PO DAILY #90 tabs 01/12/22 lovastatin 20 mg tablet 20 mg PO QPM #90 tabs 01/12/22 Physical Exam Narrative Seen and examined. Patient had cardiac cath in the morning. I talked to patient's daughter present in the room and patient's over the phone. Patient does not have chest pain or shortness of breath. Had mild headache which is getting better after he drank coffee and Tylenol. General: Alert, Oriented x3, Cooperative HEENT: Hard of hearing bilateral. Atraumatic, PERRLA, EOMI, Normocephalic Oral: Oral mucosa moist. No Gingival or Mucosal Lesions/ Ulcerations Neck: Supple, No JVD, Negative Carotid Bruits Lungs: Air entry diminished in bilateral lung bases. No crepitation/rhonchi Cardiovascular: Regular rate, Regular Rhythm, Normal S1, Normal S2, soft systolic murmur right second ICS, and LLSB, mild MR and TR. Abdomen: Bowel Sounds Present, Soft, Non Tender, Non-Distended : No renal angle tenderness. No suprapubic tenderness. Extremities: No edema, Capillary Refill Less than 3 Seconds Skin: Right radial artery access, no hematoma or thrill. No rashes. Musculoskeletal: No Tenderness to Palpation of Joints or Extremities, muscle strength 5/5 at hip and knee joints. Neurological: Cranial nerves II-XII grossly intact, DTR 2+/4 and Symmetrical, Neuro grossly intact Psych/Mental Status: Normal Affect, Appropriate. Weight / BMI Weight Weight: 215 lb 8 oz Body Mass Index (BMI) 30.9 ABG / Lab / Microbiology Data Result Diagrams: 04/16/22 02:05 04/16/22 02:05 Laboratory: Laboratory Results - last 24 hr 04/15/22 12:25: WBC 7.1, RBC 4.62, Hgb 13.8, Hct 40.6, MCV 87.9, MCH 29.9, MCHC 34.0, RDW Std Deviation 42.2, RDW Coeff of Maday 13.1, Plt Count 187, MPV 8.9, Immature Gran % (Auto) 0.400, Neut % (Auto) 48.2, Lymph % (Auto) 38.1, [place] % (Auto) 10.5 H, Eos % (Auto) 2.2, Baso % (Auto) 0.6, Absolute Neuts (auto) 3.4, Absolute Lymphs (auto) 2.72, Nucleated RBC % 0 04/15/22 12:25: Sodium 137, Potassium 3.9, Chloride 104, Carbon Dioxide 26.0, Anion Gap 7, BUN 21 H, Creatinine 0.76, Estim Creat Clear Calc 59.82, Est GFR (MDRD) Af Amer 127, Est GFR (MDRD) Non-Af 105, BUN/Creatinine Ratio 27.7 H, Glucose 113 H, Calcium 10.3 H, Troponin I High Sens 2134 H* 04/15/22 12:25: Phosphorus 2.6, Magnesium 2.1 04/15/22 12:25: PT 13.6, INR 1.1, APTT 33.4 04/15/22 15:14: Troponin I High Sens 3350 H* 04/15/22 20:18: APTT 74.3 H 04/15/22 20:18: Troponin I High Sens 3085 H* 04/16/22 02:05: WBC 7.5, RBC 4.27 L, Hgb 12.8 L, Hct 37.6 L, MCV 88.1, MCH 30.0, MCHC 34.0, RDW Std Deviation 42.4, RDW Coeff of Maday 13.2, Plt Count 160, MPV 8.7 04/16/22 02:05: Sodium 135 L, Potassium 3.9, Chloride 101, Carbon Dioxide 30.0, Anion Gap 4 L, BUN 19 H, Creatinine 0.72, Estim Creat Clear Calc 59.82, Est GFR (MDRD) Af Amer 135, Est GFR (MDRD) Non-Af 112, BUN/Creatinine Ratio 26.5 H, Glucose 114 H, Calcium 9.6, Total Bilirubin 0.30, AST 27, ALT 22, Alkaline Phosphatase 71, Total Protein 6.4, Albumin 3.3, Globulin 3.1, Albumin/Globulin Ratio 1.1, Triglycerides 138, Cholesterol 201 H, LDL Cholesterol 117, VLDL Cholesterol 28, HDL Cholesterol 56, TSH 4.53 H 04/16/22 02:05: Hemoglobin A1c 5.8 H 04/16/22 02:05: APTT 63.6 H 04/16/22 02:05: Free T4 0.75 L Radiography Diagnostic Testing: Radiology Impression Chest X-Ray 04/15/22 12:57 IMPRESSION: No radiographic evidence of acute cardiopulmonary disease. Electronically Signed: Destiyn Luo MD at 13:15 EST , Meaningful Use Info Meaningful Use Diagnoses (Choose all that apply): None applicable and AMI AMI/Post PCI/Angioplasty Aspirin given w/in 24hrs of arrival?: Yes ASA at discharge?: Yes Antiplatelet Therapy at Discharge:: Yes Statins at discharge?: Yes Sumit/ARB at discharge?: Yes Beta Modesta at discharge?: Yes Done w/ Acute HI measure.: Yes Documented LVEF (%): 65 Discharge Plan Admission Admit Date/Time: 04/15/22 13:43 Attending Provider: Lai Gallardo Primary Care Provider: Jolly Brady Consulting Providers: Garett Crockett Discharge Orders/Prescriptions Prescriptions: No Action amlodipine 5 mg tablet 5 mg PO DAILY Qty: 90 3RF potassium chloride 10 mEq tablet extended release 10 meq PO BID Qty: 180 3RF carbamazepine 200 mg tablet 200 mg PO TID Qty: 270 3RF hydrochlorothiazide 25 mg tablet 25 mg PO DAILY Qty: 90 3RF levothyroxine 25 mcg tablet 25 mcg PO DAILY Qty: 90 3RF Rx Instructions: Take 1 tab daily, each morning on an empty stomach. Do not eat or drink for 20 minutes after taking medication. Take medication at same time every day. lisinopril 40 mg tablet 40 mg PO DAILY Qty: 90 3RF lovastatin 20 mg tablet 20 mg PO QPM Qty: 90 3RF Referrals / Follow Up: Jolly Brady MD [Primary Care Provider] - Disposition Disposition (needs filled in before D/C Order can be placed): Acute Care Hospital Charges/Coding Visit Charges Inpatient E&M: 30896 Disch Hosp >30min
--- NOTE | 2022-04-16 09:06 | CL.D_ITS ---
Patient Name: OLGA CREWS Study Date: 04/16/2022 Performing: Garett Crockett MD Ht: 70 inches 177.8 cm : 1940 Wt: 215.5 lbs 97.75 kg Age: 82 Gender: male BSA: 2.15 PROCEDURE(S) PERFORMED [id number])[facility] CLINICAL PROFILE AND INDICATIONS Indications: Worsening Angina, Suspected CAD Heart Failure: None Stress/Imaging Stress/Image Study Performed: No Angina Classification Anginal Classification w/in 2 Weeks: CCS III CAD Presentations: Non-STEMI. CONCLUSIONS Normal Left Ventricular End Diastolic Pressure [place] Multivessel CAD RECOMMENDATIONS Risk factor modification Medical therapy Surgery consult for coronary revascularization DESCRIPTION OF PROCEDURE The patient arrived to the procedure lab. The risks and benefits of the procedure as well as a full description of our services here and current unavailability of surgical backup were fully explained to the patient and/or their significant other prior to the catheterization. The Timeout was completed, verifying the correct patient and procedure. The patient's procedural site was prepped and draped in the usual fashion. Local anesthetic was given subcutaneously to right radial region with Lidocaine 2%. Using a modified Seldinger technique, arterial access was obtained via the right radial artery, a 6Fr sheath was inserted. LV to AO pullback pressures were then recorded. Right Coronary Artery selective angiography was then performed in multiple views using a 5 Fr. 4.0 [place] catheter. Left Coronary Artery selective angiography was performed in multiple views using a 5 Fr. JL3.5 catheter.The arterial sheath was pulled and a TR Band was applied for hemostasis CORONARY ANGIOGRAPHY DOMINANCE: Right Dominant LEFT HEART ASSESSMENT Left Ventricular Ejection Fraction: Not assessed Normal Left Ventricular End Diastolic Pressure LVEDP: 10 mmHg LEFT MAIN: Severe calcification, proximal: eccentric: 25 % Stenosis, distal: 50 % Stenosis LEFT ANTERIOR DESCENDING ARTERY: OSTIAL LAD: 75 % Stenosis PROX LAD: Severe calcification MID LAD: Severe calcification, Mild luminal irregularities CIRCUMFLEX ARTERY: OSTIAL CIRC: 75 % Stenosis PROX CIRC: Severe calcification OM 1: Mid - 50 % Stenosis RIGHT CORONARY ARTERY: Mild calcification Mild luminal irregularities OSTIAL RCA: 90 % Stenosis DISTAL RCA: 50 % Stenosis COMPLICATIONS No Complications PROCEDURE MEDICATIONS Fentanyl 50 mcg IV Versed 1 mg IV Oxygen: 2 L/min via nasal cannula Heparin given IA 04/16/2022 07:56:34 Verapamil 2.5mg, Ntg 100mcgs, 3000 units of Heparin given IA 04/16/2022 07:56:34 SUMMARY OF HEMODYNAMIC DATA Time AIR REST LV 127/0, 10 08:02:35 LV 131/0, 10 08:02:42 LVp 128/-1, 10 08:02:58 AOp 136/57 (89) 08:03:05 AO 135/59 (90) SA 08:04:06 ECG 08:47:31 08:47:47 Signed By Garett Crockett MD On 04/16/2022 09:05:27 Garett Crockett MD
[2022-04-16] MEDS: 0.9% Normal Saline 1,000 ML 75 ML IV (09:40)
[2022-04-16] MEDS: hydroCHLOROthiazide 25 MG Tablet PO (11:34)
[2022-04-16] MEDS: Acetaminophen 325 MG Tablet 650 MG PO (12:31)
--- NOTE | 2022-04-16 13:50 | PCM.PN.CARD ---
Subjective Subjective The patient was evaluated earlier this day. He stated while he has been resting he has been feeling okay . He has not complained of any obvious recurrent events of his chest discomfort or dyspnea that originally brought him to the hospital. The patient underwent diagnostic cardiac catheterization earlier this day without any obvious adverse events. He was found to have angiographically significant multivessel disease. He has been recommended for coronary revascularization therapy with CABG. Objective Data Vital Signs: Vital Signs Temp Pulse Resp BP Pulse Ox O2 Del Method 97.3 F L 56 L 16 186/87 H 100 Room Air 04/16/22 11:37 04/16/22 11:37 04/16/22 11:37 04/16/22 12:32 04/16/22 11:37 04/16/22 11:37 Oxygen Delivery Method Room Air Weight: 215 lb 8 oz Body Mass Index (BMI) 30.9 Intake & Output: Intake and Output for Last 24 Hours 04/14/22 04/15/22 04/16/22 23:59 23:59 23:59 Intake Total 70 / 70 1179.25 / 1179.25 Balance 70 / 70 1179.25 / 1179.25 Lab / Micro Data Result Diagrams: 04/16/22 02:05 04/16/22 02:05 Labs: Laboratory Results - last 24 hr 04/15/22 12:25: Phosphorus 2.6, Magnesium 2.1 04/15/22 12:25: PT 13.6, INR 1.1, APTT 33.4 04/15/22 15:14: Troponin I High Sens 3350 H* 04/15/22 20:18: APTT 74.3 H 04/15/22 20:18: Troponin I High Sens 3085 H* 04/16/22 02:05: WBC 7.5, RBC 4.27 L, Hgb 12.8 L, Hct 37.6 L, MCV 88.1, MCH 30.0, MCHC 34.0, RDW Std Deviation 42.4, RDW Coeff of Maday 13.2, Plt Count 160, MPV 8.7 04/16/22 02:05: Sodium 135 L, Potassium 3.9, Chloride 101, Carbon Dioxide 30.0, Anion Gap 4 L, BUN 19 H, Creatinine 0.72, Estim Creat Clear Calc 59.82, Est GFR (MDRD) Af Amer 135, Est GFR (MDRD) Non-Af 112, BUN/Creatinine Ratio 26.5 H, Glucose 114 H, Calcium 9.6, Total Bilirubin 0.30, AST 27, ALT 22, Alkaline Phosphatase 71, Total Protein 6.4, Albumin 3.3, Globulin 3.1, Albumin/Globulin Ratio 1.1, Triglycerides 138, Cholesterol 201 H, LDL Cholesterol 117, VLDL Cholesterol 28, HDL Cholesterol 56, TSH 4.53 H 04/16/22 02:05: Hemoglobin A1c 5.8 H 04/16/22 02:05: APTT 63.6 H 04/16/22 02:05: Free T4 0.75 L Rhythm Strip Rhythm Strip: Sinus Rhythm Rate: 74 Ectopy: None Cardiology Labs/Tests 04/15/22 12:25: Phosphorus 2.6, Magnesium 2.1 04/15/22 12:25: PT 13.6, INR 1.1, APTT 33.4 04/15/22 20:18: APTT 74.3 H 04/16/22 02:05: WBC 7.5, RBC 4.27 L, Hgb 12.8 L, Hct 37.6 L, MCV 88.1, MCH 30.0, MCHC 34.0, Plt Count 160, MPV 8.7 04/16/22 02:05: Sodium 135 L, Potassium 3.9, Chloride 101, Carbon Dioxide 30.0, Anion Gap 4 L, BUN 19 H, Creatinine 0.72, Est GFR (MDRD) Af Amer 135, Est GFR (MDRD) Non-Af 112, BUN/Creatinine Ratio 26.5 H, Glucose 114 H, Calcium 9.6, Total Bilirubin 0.30, Triglycerides 138, Cholesterol 201 H, LDL Cholesterol 117, VLDL Cholesterol 28, HDL Cholesterol 56 04/16/22 02:05: Hemoglobin A1c 5.8 H 04/16/22 02:05: APTT 63.6 H Rhythm: Sinus rhythm EKG: Sinus bradycardia; no acute ECG change ECHO: See below Cardiac Cath: CONCLUSIONS Normal Left Ventricular End Diastolic Pressure [place] Multivessel CAD RECOMMENDATIONS Risk factor modification Medical therapy Surgery consult for coronary revascularization DESCRIPTION OF? PROCEDURE The patient arrived to the procedure lab. The risks and benefits of the procedure as well as a full description of our services here and current unavailability of surgical backup were fully explained to the patient and/or their significant other prior to the catheterization. The Timeout was completed, verifying the correct patient and procedure. The patient's procedural site was prepped and draped in the usual fashion. Local anesthetic was given subcutaneously to right radial region with Lidocaine 2%. Using a modified Seldinger technique, arterial access was obtained via the right radial artery, a 6Fr sheath was inserted.? LV to AO pullback pressures were then recorded. Right Coronary Artery selective angiography was then performed in multiple views using a 5 Fr. 4.0 [place] catheter. Left Coronary Artery selective angiography was performed in multiple views using a 5 Fr. JL3.5 catheter.The arterial sheath was pulled and a TR Band was applied for hemostasis CORONARY ANGIOGRAPHY DOMINANCE:? Right Dominant LEFT HEART ASSESSMENT Left Ventricular Ejection Fraction: Not assessed Normal Left Ventricular End Diastolic Pressure LVEDP: 10 mmHg LEFT MAIN: Severe calcification, proximal: eccentric: 25 % Stenosis, distal: 50 % Stenosis LEFT ANTERIOR DESCENDING ARTERY: OSTIAL LAD: 75 % Stenosis PROX LAD: Severe calcification MID LAD: Severe calcification, Mild luminal irregularities CIRCUMFLEX ARTERY: OSTIAL CIRC: 75 % Stenosis PROX CIRC: Severe calcification OM 1: Mid - 50 % Stenosis RIGHT CORONARY ARTERY: Mild calcification Mild luminal irregularities OSTIAL RCA: 90 % Stenosis DISTAL RCA: 50 % Stenosis COMPLICATIONS No Complications Radiography Diagnostic Testing: Radiology Impression Echocardiogram 04/16/22 05:55 Interpretation Summary Left ventricular systolic function is normal. The estimated ejection fraction is 65 %. The left atrium is mildly enlarged. Mild diffuse mitral valve thickening. Mild (1+) mitral valve insufficiency. Mild tricuspid valve insufficiency. Mild diffuse aortic valve thickening. Moderate focal aortic valve calcification. Calcified aortic root. Right ventricular systolic pressure estimated to be 30 mmHg. No evidence for diastolic dysfunction. Ordering Physician: Lai Gallardo Referring Physician: Jolly Brady M.D. Performed By: Erin Yap RCS Physical Exam Const alert, oriented x3, no apparent distress and healthy appearing Orientation / Consciousness: awake HEENT normocephalic, head/scalp atraumatic and hearing grossly normal bilaterally Eyes PERRL, EOMs intact bilaterally and conjunctivae normal Neck full ROM, supple and no JVD Carotids: normal carotid upstroke Resp normal respiratory effort and clear to auscultation bilaterally Cardio regular rate, regular rhythm, S1 normal heart sound and S2 normal heart sound GI normal to inspection, nondistended, normoactive bowel sounds Extremity no pedal edema Skin no rashes or lesions noted Psych mental status grossly normal Assessment & Plan Assessment/Plan (1) Unstable angina: PLAN: The patient has symptoms which appeared initially compatible with stable exertional angina pectoris. However the time of this appears to be worsening to the point where it may be compatible with an unstable angina pectoris. At the same time he has been evaluated. He has been found to have objective findings compatible with an acute non-ST segment elevation ME. At the present time he is resting comfortably. He has subsequently undergone evaluation with a transthoracic echocardiogram and a diagnostic cardiac catheterization as noted. He will continue medical therapy which includes his aspirin, nitrates as needed, beta-blockers, ALBAN inhibitor therapy, lipid-lowering therapy with statins, and his anticoagulant therapy. He is being referred for CT surgery evaluation for coronary bypass grafting surgery. The patient's case was discussed with Dr. Stock at [facility] CT surgery. He agreed to accept the patient in transfer for further evaluation and care. (2) Non-ST elevated myocardial infarction: PLAN: The patient does have findings compatible with an acute non-ST segment elevation ME. He has now undergone both noninvasive and invasive valuation as noted. He will continue his medical therapy. As noted above he is pending transfer to [facility] for consideration for CABG. (3) Hyperlipemia: PLAN: The patient will continue with lipid-lowering therapy. (4) Hypertension: PLAN: The patient states his blood pressure has been challenging to control. His blood pressure will be monitored. His medication can be adjusted as needed. Addt'l Comments The patient's case was discussed and reviewed with the patient and via telephone conversation with his . The patient's case was discussed and reviewed with Dr. Edwards of interventional cardiology. The patient's case was also discussed with Dr. Stock of CT surgery at [facility] Comment: Time spent in the patient's evaluation, examination, review of medical records/imaging studies, placing orders, documentation, discussion with the family, and discussion with other health care providers, etc.: 50 minutes
[2022-04-16] MEDS: HEPARIN/D5w 25,000 UNITS 25,000 UNITS/250 ML IV.SOLN. 9 UNITS CONT INF (14:50)
[2022-04-16] MEDS: Atorvastatin Calcium 40 MG Tablet PO (20:11)
[2022-04-16 21:15] LABS: Partial Thromboplast Time 47.3 Seconds (24.1-36.2)
--- NOTE | 2022-04-16 22:01 | NURSING ---
report called to claudette norwood on [id number] @ 2022. physicians leaving with pt at this time.
== END 2022-04-16 22:02 | disposition short-term general hospital (02) | DRG 282 ==
LOC: ED 13:57 → PCU 14:03
PROVIDERS: Internal Medicine Cardiovascular Disease; Admitting Provider Internal Medicine; Emergency Provider Emergency Medicine; PCP Internal Medicine; Visit Provider Internal Medicine
DX: I21.4 Non-ST elevation (NSTEMI) myocardial infarction (principal); E03.9 Hypothyroidism, unspecified; I25.110 Atherosclerotic heart disease of native coronary artery with unstable angina pectoris; E78.5 Hyperlipidemia, unspecified; I10 Essential (primary) hypertension; G50.0 Trigeminal neuralgia; I16.0 Hypertensive urgency; H91.93 Unspecified hearing loss, bilateral; Z79.01 Long term (current) use of anticoagulants; Z79.82 Long term (current) use of aspirin; Z79.899 Other long term (current) drug therapy; Z87.891 Personal history of nicotine dependence; Z82.49 Family history of ischemic heart disease and other diseases of the circulatory system
CPT/HCPCS: 36415; 71045; 80048; 80053; 80061; 83036; 83735; 84100; 84439; 84443; 84484; 85025; 85027; 85610; 85730; 87426; 93005; 93306; 93454; 94668; 99152; 99153; 99285; J7030; J7120; A4216; C1769; C1894; Q9967

== ENCOUNTER 2022-05-03 11:11 | Emergency (ER) | payer MEDICARE, OTHER, SELFPAY ==
[2022-05-03 11:11] VITALS: BP 101/61; PULSE 113; RESP 18; TEMP 36.4; O2SAT 96
[2022-05-03 11:13] VITALS: O2SAT 96
--- NOTE | 2022-05-03 11:41 | EKG12_ITS ---
Test Reason : SOB Blood Pressure : / mmHG Vent. Rate : 083 BPM Atrial Rate : 000 BPM P-R Int : 000 ms QRS Dur : 084 ms QT Int : 368 ms P-R-T Axes : 000 039 -13 degrees QTc Int : 432 ms Atrial fibrillation Nonspecific T wave abnormality Abnormal ECG Confirmed by CHRIS GONZALEZ, SHAY ([id number]), non linear editor AISSATOU WILKS ([id number]) on 05/05/2022 8:16:58 AM Referred By: IRA Confirmed By:SHAY PEREZ MD
--- NOTE | 2022-05-03 11:45 | EX.ED.DYSGE1 ---
HPI <ZOILA Mims - Last Filed: 05/03/22 16:20> History of Present Illness Chief Complaint: Shortness of Breath Narrative Narrative: Patient presenting today with shortness of breath that started last night. Patient recently underwent a triple bypass surgery at [facility] on 04/20 and was supposed to be transferred to [facility] on 04/30 for cardiac rehab but tested positive for COVID that day and was discharged home. He denies any chest pain, fevers, chills, abdominal pain, nausea, and vomiting at this time. PMH includes hypertension, trigeminal neuralgia, hyperlipidemia, and atrial fibrillation on Eliquis. PFSH <ZOILA Mims - Last Filed: 05/03/22 16:20> [facility] Medical History Back problem Brainstem tumor Hearing problem Hyperlipemia Hypertension Non-ST elevated myocardial infarction Trigeminal nerve disease Unstable angina Home Medications amlodipine 5 mg tablet 5 mg PO DAILY #90 tabs 01/14/21 [Rx Last Taken Unknown] potassium chloride 10 mEq tablet,extended release 10 meq PO BID #180 tabs 01/14/21 [Rx Last Taken Unknown] carbamazepine 200 mg tablet 200 mg PO TID #270 tabs 01/12/22 [Rx Last Taken Unknown] hydrochlorothiazide 25 mg tablet 25 mg PO DAILY #90 tabs 01/12/22 [Rx Last Taken Unknown] levothyroxine 25 mcg tablet 25 mcg PO DAILY #90 tabs 01/12/22 [Rx Last Taken Unknown] lisinopril 40 mg tablet 40 mg PO DAILY #90 tabs 01/12/22 [Rx Last Taken Unknown] lovastatin 20 mg tablet 20 mg PO QPM #90 tabs 01/12/22 [Rx Last Taken Unknown] albuterol sulfate 90 mcg/actuation aerosol inhaler (Ventolin HFA) 1 - 2 puff inhalation Q4H PRN PRN Wheezing #1 inh 05/03/22 [Rx Last Taken Unknown] furosemide 40 mg tablet (Lasix) 40 mg PO DAILY #2 tabs 05/03/22 [Rx Last Taken Unknown] guaifenesin 600 mg tablet, extended release 12 hr (Mucinex) 600 mg PO BID 7 days #14 tabs 05/03/22 [Rx Last Taken Unknown] Allergy/AdvReac Type Severity Reaction Status Date / Time No Known Allergies Allergy Verified 05/03/22 11:14 Surgical History History of prostate surgery Hx of skin graft Social History Smoking Status: Former smoker how long ago did patient quit smokin02/08/1969 alcohol intake: never substance use type: does not use what type of physical activity do you participate in: none ROS <ZOILA Mims - Last Filed: 05/03/22 16:20> ROS ED Constitutional Constitutional ED: Denies chills, fever(s) or sweats Cardiovascular Cardiovascular: Denies chest pain or palpitations Respiratory/Chest Respiratory/Chest: Reports dyspnea and dyspnea on exertion Gastrointestinal Gastrointestinal: Denies abdominal pain, nausea or vomiting Musculoskeletal Musculoskeletal: Denies arthralgias, back pain, myalgias or neck pain Integumentary Denies abscess, Abrasions or rash Neurologic Neurologic: Denies confusion, dizziness or paresthesias Psychiatric Psychiatric: Denies anxiety, depression, suicidal ideation or suicidal thoughts EXAM <ZOILA Mims - Last Filed: 05/03/22 16:20> Physical Exam Const Vital Signs: 05/03/22 11:11 05/03/22 11:13 05/03/22 11:42 Temperature 97.5 F L Temperature Source Temporal Pulse Rate 113 H Respiratory Rate 18 Respiratory Effort Short of Breath Respiratory Depth Normal Respiratory Pattern Normal Blood Pressure 101/61 Blood Pressure Mean 74 Pulse Ox 96 Oxygen Delivery Method Room Air Room Air Room Air 05/03/22 12:03 05/03/22 12:03 05/03/22 13:11 Temperature Temperature Source Pulse Rate 82 91 Respiratory Rate 14 18 Respiratory Effort Normal Respiratory Depth Respiratory Pattern Normal Blood Pressure 146/102 H Blood Pressure Mean 116 Pulse Ox 97 95 Oxygen Delivery Method Room Air Room Air 05/03/22 15:00 05/03/22 15:44 Temperature 97.8 F Temperature Source Pulse Rate 78 78 Respiratory Rate 16 16 Respiratory Effort Respiratory Depth Respiratory Pattern Blood Pressure 130/78 H 155/73 H Blood Pressure Mean 95 Pulse Ox 99 100 Oxygen Delivery Method Room Air Positive well nourished, well developed and no apparent distress General Appearance ED: well developed HEENT Reports normocephalic and head/scalp atraumatic Mouth ED: Yes moist mucous membranes normal Eyes PERRL and EOMs intact bilaterally Neck full ROM and supple Chest Wall inspection of chest normal Resp normal respiratory effort and clear to auscultation bilaterally Cardio regular rate and regular rhythm GI soft to palpation, non-tender, non-distended and no masses Back/Spine normal ROM and normal to inspection Extremity normal to inspection and full ROM Neuro oriented x3, CN's II-XII intact bilaterally, moves all extremities, no focal motor deficits and no sensory deficits noted Sensorium / Orientation: awake and alert Psych mental status grossly normal and thought process normal Skin no rashes or lesions noted and no wounds <Dr. Ju Garcia MD - Last Filed: 05/03/22 16:00> Physical Exam Const Vital Signs: 05/03/22 11:11 05/03/22 11:13 05/03/22 11:42 Temperature 97.5 F L Temperature Source Temporal Pulse Rate 113 H Respiratory Rate 18 Respiratory Effort Short of Breath Respiratory Depth Normal Respiratory Pattern Normal Blood Pressure 101/61 Blood Pressure Mean 74 Pulse Ox 96 Oxygen Delivery Method Room Air Room Air Room Air 05/03/22 12:03 05/03/22 12:03 05/03/22 13:11 Temperature Temperature Source Pulse Rate 82 91 Respiratory Rate 14 18 Respiratory Effort Normal Respiratory Depth Respiratory Pattern Normal Blood Pressure 146/102 H Blood Pressure Mean 116 Pulse Ox 97 95 Oxygen Delivery Method Room Air Room Air 05/03/22 15:00 05/03/22 15:44 Temperature 97.8 F Temperature Source Pulse Rate 78 78 Respiratory Rate 16 16 Respiratory Effort Respiratory Depth Respiratory Pattern Blood Pressure 130/78 H 155/73 H Blood Pressure Mean 95 Pulse Ox 99 100 Oxygen Delivery Method Room Air MDM <ZOILA Mims - Last Filed: 05/03/22 16:20> [facility] MDM Narrative Medical decision making narrative: Patient was in the emergency department at [facility] 04/15/22 with chest pain and was found to have an NSTEMI. He was admitted to the hospital and underwent a heart catheterization with Dr. 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 Patient was then transferred to [facility] and underwent a triple bypass on 04/20. He was then supposed to be going to [facility] 04/30 for cardiac rehab but tested positive for COVID that day and was discharged home. Patient began feeling short of breath last night. He is not on oxygen at home and does not have any chronic lung conditions. He is 96% on room air here and afebrile. He is on Eliquis for atrial fibrillation. Patient is requesting Tegretol for his trigeminal neuralgia as he missed his dose this afternoon, this has been given to him along with breathing treatments. Labs obtained to rule out ACS and delta troponin negative, EKG does not show any ST elevation. Patient has remained above 95% on room air. He has been given Mucinex for his congestion. On reexamination patient states he would like to go home, he will be discharged home in stable condition. He has been given 2 days of Lasix to help with his pulmonary edema could be attributed to his recent CABG. He has also been given Mucinex and an inhaler for home. He is comfortable with plan and has been given return precautions. Lab Data Attestation: I reviewed the patient's lab results. Lab results narrative: H&H 10.1, 31.6, anion gap 3, BUN 20, glucose 116, BNP 434.7, troponin 50, repeat troponin 45 Labs: Laboratory Results - last 24 hr 05/03/22 05/03/22 05/03/22 11:50 11:50 11:50 WBC 5.6 RBC 3.35 L Hgb 10.1 L Hct 31.6 L MCV 94.3 H MCH 30.1 MCHC 32.0 RDW Std Deviation 49.5 H RDW Coeff of [place] 14.6 Plt Count 212 MPV 8.5 Immature Gran % (Auto) 0.500 Neut % (Auto) 66.5 Lymph % (Auto) 23.0 Delta % (Auto) 8.9 Eos % (Auto) 0.7 Baso % (Auto) 0.4 Absolute Neuts (auto) 3.7 Absolute Lymphs (auto) 1.29 Nucleated RBC % 0 Sodium 137 Potassium 4.2 Chloride 105 Carbon Dioxide 29.0 Anion Gap 3 L BUN 20 H Creatinine 0.78 Est GFR (MDRD) Af Amer 123 Est GFR (MDRD) Non-Af 102 BUN/Creatinine Ratio 25.7 H Glucose 116 H Calcium 8.9 Troponin I High Sens 50 B-Natriuretic Peptide 434.7 H 05/03/22 14:36 WBC RBC Hgb Hct MCV MCH MCHC RDW Std Deviation RDW Coeff of [place] Plt Count MPV Immature Gran % (Auto) Neut % (Auto) Lymph % (Auto) Delta % (Auto) Eos % (Auto) Baso % (Auto) Absolute Neuts (auto) Absolute Lymphs (auto) Nucleated RBC % Sodium Potassium Chloride Carbon Dioxide Anion Gap BUN Creatinine Est GFR (MDRD) Af Amer Est GFR (MDRD) Non-Af BUN/Creatinine Ratio Glucose Calcium Troponin I High Sens 45 B-Natriuretic Peptide Radiography Chest X-Ray - ED: Read by ED Physician and Read by Radiologist Diagnostic Testing: Clinical Impression(s) from Imaging Studies Chest X-Ray 05/03/22 12:25 IMPRESSION: Suspect small left pleural effusion with left lower lobe pneumonia or atelectasis. Electronically Signed: Fredrick Allen MD at 12:43 EDT , EKG Initial EKG: Comments: 83 bpm, atrial fibrillation, no ST elevation, reviewed and interpreted by attending ED physician. <Dr. Ju Garcia MD - Last Filed: 05/03/22 16:00> [facility] Lab Data Labs: Laboratory Results - last 24 hr 05/03/22 05/03/22 05/03/22 11:50 11:50 11:50 WBC 5.6 RBC 3.35 L Hgb 10.1 L Hct 31.6 L MCV 94.3 H MCH 30.1 MCHC 32.0 RDW Std Deviation 49.5 H RDW Coeff of [place] 14.6 Plt Count 212 MPV 8.5 Immature Gran % (Auto) 0.500 Neut % (Auto) 66.5 Lymph % (Auto) 23.0 Delta % (Auto) 8.9 Eos % (Auto) 0.7 Baso % (Auto) 0.4 Absolute Neuts (auto) 3.7 Absolute Lymphs (auto) 1.29 Nucleated RBC % 0 Sodium 137 Potassium 4.2 Chloride 105 Carbon Dioxide 29.0 Anion Gap 3 L BUN 20 H Creatinine 0.78 Est GFR (MDRD) Af Amer 123 Est GFR (MDRD) Non-Af 102 BUN/Creatinine Ratio 25.7 H Glucose 116 H Calcium 8.9 Troponin I High Sens 50 B-Natriuretic Peptide 434.7 H 05/03/22 14:36 WBC RBC Hgb Hct MCV MCH MCHC RDW Std Deviation RDW Coeff of [place] Plt Count MPV Immature Gran % (Auto) Neut % (Auto) Lymph % (Auto) Delta % (Auto) Eos % (Auto) Baso % (Auto) Absolute Neuts (auto) Absolute Lymphs (auto) Nucleated RBC % Sodium Potassium Chloride Carbon Dioxide Anion Gap BUN Creatinine Est GFR (MDRD) Af Amer Est GFR (MDRD) Non-Af BUN/Creatinine Ratio Glucose Calcium Troponin I High Sens 45 B-Natriuretic Peptide Radiography Diagnostic Testing: Clinical Impression(s) from Imaging Studies Chest X-Ray 05/03/22 12:25 IMPRESSION: Suspect small left pleural effusion with left lower lobe pneumonia or atelectasis. Electronically Signed: Fredrick Allen MD at 12:43 EDT , Treatment and Re-Evaluation :: Patient seen and evaluated with [facility]. I personally interviewed and examined the patient. I was involved in all aspects of patient's orders, interpretation of results, and treatment. Patient presents secondary to increased shortness of breath. Patient had cardiac bypass surgery on April 20. He was to be discharged to rehab on the , however tested positive for COVID. He was discharged to home with family instead. Over the last 24 hours has had increased shortness of breath. Family states that every 5 to 10 minutes he will have increased anxiety and panic and stating that he cannot catch his breath. He does not have chest pain. He has had a cough with some clear sputum. He states he feels that he has chest congestion and cannot bring the sputum up. Patient sitting upright in bed no acute distress. Head and neck examination is unremarkable. Heart is regular rate and rhythm. Lung sounds are grossly clear bilaterally. There is some transmitted upper airway sounds. Abdomen is soft and nontender. Lower extremity examination reveals no evidence of edema. Patient had been given aerosol treatments prior to my initial evaluation. Chest x-ray and lab work obtained. Chest x-ray does reveal pleural effusion per my interpretation which is not abnormal for recent postop. CBC and chemistry studies significantly for mild anemia with a hemoglobin of 10.1. Troponin is 50 followed by 45 on 2-hour repeat. BNP is slightly elevated at 434. Patient does report he feels that his breathing is improved. He was given a dose of Mucinex here. He will be given Mucinex for home along with Lasix for the next 2 days. Return instructions are provided. Discharge Plan Triage Chief Complaint: Shortness of Breath ED Midlevel Provider: Toya Lazcano ED Provider: Ju Garcia Dx/Rx/DC Orders Clinical Impression: COVID-19, SOB (shortness of breath), Pulmonary edema, Hx of CABG Instructions: Caring for Someone Who Has COVID-19 Prescriptions: New furosemide [Lasix] 40 mg tablet 40 mg PO DAILY Qty: 2 0RF guaifenesin [Mucinex] 600 mg tablet extended release 12hr 600 mg PO BID 7 Days Qty: 14 0RF albuterol sulfate [Ventolin HFA] 90 mcg/actuation HFA aerosol inhaler 1 - 2 puff inhalation Q4H PRN PRN (Reason: Wheezing) Qty: 1 0RF No Action amlodipine 5 mg tablet 5 mg PO DAILY Qty: 90 3RF potassium chloride 10 mEq tablet extended release 10 meq PO BID Qty: 180 3RF carbamazepine 200 mg tablet 200 mg PO TID Qty: 270 3RF hydrochlorothiazide 25 mg tablet 25 mg PO DAILY Qty: 90 3RF levothyroxine 25 mcg tablet 25 mcg PO DAILY Qty: 90 3RF Rx Instructions: Take 1 tab daily, each morning on an empty stomach. Do not eat or drink for 20 minutes after taking medication. Take medication at same time every day. lisinopril 40 mg tablet 40 mg PO DAILY Qty: 90 3RF lovastatin 20 mg tablet 20 mg PO QPM Qty: 90 3RF Primary Care Provider: Jolly Brady Referrals: Jolly Brady MD [Primary Care Provider] - 3-5 Days Activity Restrictions/Additional Instructions: Please return for any worsening of symptoms. Follow-up with PCP. Disposition Disposition: Home, Self Care Discharge Date/Time: 05/03/22 15:45
[2022-05-03 11:56] LABS: Absolute Lymphocyte Count 1.29 X10^3/uL (0.83-4.51); Absolute Neutrophil Count 3.7 X10^3/uL (2.0-7.7); Basophil# 0.02 X10^3/uL; Basophil% 0.4 % (0-1); Eosinophil# 0.04 X10^3/uL; Eosinophils% 0.7 % (0-5); Hematocrit 31.6 % (40-54); Hemoglobin 10.1 g/dL (13.0-16.5); Lymphocyte # 1.29 X10^3/ul (0.83-4.51); Mean Corpuscular Hgb 30.1 pg (27.0-32.0); Mean Corpuscular Volume 94.3 fL (80-94); Mean Platelet Vol. 8.5 fl (6.2-12.0); Monocyte% 8.9 % (0-10); NRBC Flagged by Analyzer 0 % (0-5); Neutrophil # 3.72 X10^3/uL (2.7-7.7); Neutrophil % 66.5 % (47-70); Platelet Count 212 K/mm3 (150-450); RBC Distribution Width CV 14.6 % (11.6-14.6); RBC Distribution Width SD 49.5 fl (35.1-43.9); Red Blood Count 3.35 M/mm3 (4.6-6.2); White Blood Count 5.6 K/mm3 (4.4-11.0)
[2022-05-03] MEDS: Ipratropium/Albuterol Sulfate 3 ML AMPUL.NEB INHALATION (12:00)
[2022-05-03 12:03] VITALS: PULSE 82; RESP 14; O2SAT 97
[2022-05-03] MEDS: carBAMazepine 200 MG Tablet PO (12:10)
[2022-05-03 12:14] LABS: Anion Gap 3 (5-15); BUN 20 mg/dL (7-18); BUN/Creat Ratio 25.7 RATIO (10-20); Calcium,Total 8.9 mg/dL (8.5-10.1); Chloride 105 mmol/L (98-107); Creatinine, Serum 0.78 mg/dL (0.70-1.30); EST Glomerular Filtration Rate 102 mL/min (>60); Est Glom Filt Rate - Afr Amer 123 mL/min (>60); Glucose 116 mg/dL (74-106); Potassium 4.2 mmol/L (3.5-5.1); Sodium Level 137 mmol/L (136-145); Troponin-I HS (w/2H Reflex) 50 pg/mL (3.0-78.0)
--- NOTE | 2022-05-03 12:25 | RAD_ITS ---
STUDY: X-RAY CHEST REASON FOR EXAM: Male, 82 years old. shortness of breath TECHNIQUE: PA and lateral views of the chest. COMPARISON: 04/15/2022 FINDINGS: Status post median sternotomy. Alveolar opacity in the lower left lung consistent left lower lobe pneumonia or atelectasis. Suspect small left pleural effusion. Normal size heart. Normal mediastinum and janie. Normal visualized pulmonary arteries. Normal visualized aortic arch and descending thoracic aorta. Normal visualized thoracic spine. Normal visualized ribs, clavicles, and shoulders. There is no demonstrated abnormality of the visualized soft tissue structures of the upper abdomen. RAD/Chest PA and Lateral IMPRESSION: Suspect small left pleural effusion with left lower lobe pneumonia or atelectasis. Electronically Signed: Fredrick Allen MD at 12:43 EDT ,
[2022-05-03] MEDS: guaiFENesin 1,200 MG Tablet 1200 MG PO (12:52)
[2022-05-03 13:11] VITALS: BP 146/102; PULSE 91; RESP 18; O2SAT 95
[2022-05-03 13:12] LABS: BNP,B-Type NATRIURETIC PEPTIDE 434.7 pg/mL (0-100)
[2022-05-03] MEDS: Acetaminophen 500 MG Tablet 1000 MG PO (14:55)
[2022-05-03] MEDS: Metoprolol Tartrate 25 MG Tablet 50 MG PO (14:56)
[2022-05-03 14:57] LABS: Troponin-I HS 45 pg/mL (3.0-78.0)
[2022-05-03 15:00] VITALS: BP 130/78; PULSE 78; RESP 16; O2SAT 99; BMI 27.8
[2022-05-03 15:44] VITALS: BP 155/73; PULSE 78; RESP 16; TEMP 36.6; O2SAT 100
== END 2022-05-03 15:45 | disposition home or self-care (01) ==
PROVIDERS: Physician Assistant; Emergency Provider Emergency Medicine; PCP Internal Medicine; Visit Provider Emergency Medicine
DX: U07.1 COVID-19 (principal); I48.91 Unspecified atrial fibrillation; J81.1 Chronic pulmonary edema; I10 Essential (primary) hypertension; I25.2 Old myocardial infarction; G50.0 Trigeminal neuralgia; Z95.1 Presence of aortocoronary bypass graft; Z79.01 Long term (current) use of anticoagulants; Z79.899 Other long term (current) drug therapy; Z87.891 Personal history of nicotine dependence
CPT/HCPCS: 71046; 80048; 83880; 84484; 85025; 93005; 94640; 99252; 99285; A4216; G0463

== ENCOUNTER → 2022-06-17 | Outpatient (CLI) | payer MEDICARE, OTHER, SELFPAY ==
--- NOTE | 2022-06-17 08:07 | PCM.CR.HP2 ---
CR - History & Physical - General Arrival date:: 06/17/22 Arrival time:: 08:08 Date of Referral:: 06/09/22 Date of CR Evaluation:: 06/17/22 Referring Physician: Dr. Javier Burnett/ Dr. Lazarus Landin Primary Diagnosis: S/P CABG - History of Present Cardiac Event Onset Date: Enter Onset Date of cardiac illnesses in Comment field below Coronary Artery Bypass Graft:: Yes - 3 vessel bypass 04/20/2022 Vessel: RICHMOND-LAD, SVG-PDA, SVG-OM Heart Failure EF <35%:: No - EF 60% PRE-OP Type of Symptoms:: Chest pain on April 15, seen by Dr. Crockett and had heart cath. He was then transferred to [facility] for surgery due to the multi-vessel disease. - Sleep Disorder Evaluation Hx of Sleep Apnea: No Do you snore loudly (louder than talking or can be heard through closed doors)?: No Do you often feel tired/ fatigued/ sleepy during daytime?: Yes - tired all the time Has anyone observed you stop breathing during sleep?: No History of Hypertension (for STOP score): Yes STOP Results: Positive - Medications Home Medications: Ambulatory Orders Medication Instructions Recorded potassium chloride 10 mEq 10 meq PO BID #180 tabs 01/14/21 tablet,extended release lovastatin 20 mg tablet 20 mg PO QPM #90 tabs 01/12/22 albuterol sulfate 90 mcg/actuation 1 - 2 puff inhalation Q4H PRN PRN 05/03/22 aerosol inhaler (Ventolin HFA) Wheezing #1 inh guaifenesin 600 mg tablet, 600 mg PO BID 7 days #14 tabs 05/03/22 extended release 12 hr (Mucinex) acetaminophen 325 mg tablet 500 mg PO Q6H PRN Pain 06/17/22 (Tylenol) apixaban 5 mg tablet (Eliquis) 5 mg PO BID 06/17/22 atorvastatin 40 mg tablet (Lipitor) 40 mg PO DAILY 06/17/22 carbamazepine 200 mg tablet 200 mg PO BID 06/17/22 (Tegretol) clopidogrel 75 mg tablet (Plavix) 75 mg 06/17/22 diltiazem HCl 120 mg tablet 240 mg PO DAILY 06/17/22 (Cardizem) furosemide 20 mg tablet (Lasix) 20 mg PO DAILY 06/17/22 levothyroxine 25 mcg tablet 25 PO DAILY 06/17/22 lisinopril 40 mg tablet 10 mg PO DAILY 06/17/22 magnesium citrate,mag oxide 250 mg 400 mg PO 06/17/22 capsule metoprolol tartrate 50 mg tablet 50 mg PO Q8H 06/17/22 tamsulosin 0.4 mg capsule (Flomax) 0.4 mg PO DAILY 06/17/22 - Allergies Allergies/Adverse Reactions: Allergies No Known Allergies Allergy (Verified 05/03/22 11:14) Advanced Directives - Advanced Directives Power of Insurance Sales Producer: No Living Will: No Advance Directives Information Provided: Yes Advance Directives on File: No DNR Order?:: No - MOLST See MOLST form: No Past Medical History - Covid-19 Screening Fever: No Unexplained muscle aches: No Current respiratory symptoms: Yes - shortness of breath with activity. Upper respiratory infections symptoms: No Gastro-intestinal symptoms: No Xgd-Hohb-Mohkya symptoms: No Has tested positive for COVID-19 in last 30 days: Yes Date of testin06/17/22 - Had the J & J vaccine no boosters. Tested + on April 30 and was positive test Had contact w/person w/symptoms or Covid-19 (+) last 14 days: No Has High Risk Exposures ID'd by Health dept/Inf Control team: No 65 years or older:: Yes Lives in Assisted Living facility:: No Has a chronic lung disease or moderate to severe asthma:: Yes Has a serious heart condition:: Yes Immunocompromised:: No Severely obese (Body Mass Index of 40 or higher):: No Diabetic:: No Has chronic kidney disease undergoing dialysis:: No Has liver disease:: No - Past Medical Illness Medical History: Past Medical History (Last Updated 06/17/22 @ 08:36 by Bertram Galarza CRT, AMARILIS, BS) Atherosclerotic heart disease of [place] coronary artery without angina pectoris I25.10 Back problem M53.9 Brainstem tumor D49.6 Hearing problem H91.90 Hyperlipemia E78.5 Hypertension I10 Non-ST elevated myocardial infarction I21.4 Trigeminal nerve disease G50.9 Unstable angina I20.0 - Past Surgical History Surgical History: Past Surgical History (Last Updated 06/17/22 @ 08:36 by Bertram Freehahn, INSTITUTE DIRECTOR, [employer], BS) History of prostate surgery Z98.890 Hx of skin graft Z94.5 Hx of tonsillectomy Z90.89 S/P CABG x 3 Onset Date: ~04/20/22 Z95.1 Social History - Smoking History Smoking Status: Former smoker - Quit smoking 50 + years - Alcohol Use Alcohol Usage: No - Substance Abuse Hx Substance Use: No - Occupation Occupation (List type of work in comments):: Retired - Hobbies, Recreation, Social Activities Hobbies: Farm - Horses, Other Recreational Activities: I am able to engage in a few activities Social Environment - Status Marital Status: - Current Living Arrangements Living Environment:: Alone - is in [facility] for 4 - 6 weeks. - Children How many children do you have?: 3 Do any of your children live nearby?: Yes - Safety Do you feel safe in your surroundings?: Yes - Assistance Do you need any assistance at home?: no Review of Systems - Review of Systems Hints: Right click = Denies (Slash). Left click = Reports (Alutiiq) Review of Present Symptoms: Reports: Operative Discomfort - left side of the chest wall., Wound Healing, Dizziness/Lightheadedness, Fatigue, Heart Arrhythmia/Irregularities - Post-operative hx of atrial fibrillation, Sleep - Normal. Denies: Shortness of Breath at Rest, Shortness of Breath with Exertion, Appetite - Normal - 3-cups of coffee in the morning,, Appetite - Special Diet, Sexual Changes - Pain Pain Location: chest - left side of chest Risk Factor Assessment - Vital Signs Temperature: 98.6 F Respiratory Rate: 16 Pulse Ox: 97 Blood Pressure: 130/70 - Pulse Pulse Rate: 107 Pulse Rhythm: Regular - Hypertension Blood Pressure Sitting - Left Arm: 130/70 - Stress Stress: Recent - Blood Cholesterol/Lipids Total Cholesterol (mg/dL) Goal = less than 200 mg/dL: 201 HDL Cholesterol (mg/dL) Goal = less than 40 mg/dL: 56 LDL Cholesterol (mg/dL) Goal = less than 70 mg/dL: 117 Triglycerides (mg/dL) Goal = less than 150 mg/dL: 138 - Obesity Height: 5 ft 10 in Weight:: 203 lb Weight in Pounds: 203.0 lbs Weight Source: Stated by Patient Body Mass Index (BMI): 29.1 Nutritional Referral for Obesity: Yes - Risk Stratification Risk Guidelines: Lowest Risk: Risk Factor for Smoking, Risk Factor for Dyslipidemia, Risk Factor for Diabetes, Moderate Risk: Risk Factor for Hypertension - 130/70, Risk Factor for Depression, Highest Risk: Risk Factor for Obesity - BMI 29.8, Risk Factor for Sedentary Lifestyle Motivation - Motivation to Participate On a scale of 1 to 10, how prepared are you to commit to attending program?: 1 - Just wants to be able to go to the barn, do chores, and lift 50# What do you see as barriers to successfully being able to complete the program?: Does not believe the exercise would be beneficial for him, will help. What do you see as the benefits of succesfully completing the program? In other words, what do you hope to get out of participating in the program?: does not have any thoughts it will help him be any healthier Do you have a spouse or signficant other, family or friends who will help support you to complete the program?: Yes
--- NOTE | 2022-06-17 08:08 | CR.ITP_ITS ---
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 Secondary Diagnosis: Hypertension, Hyperlipidemia, Obesity Personal Learning Style:: Audio/Visual Barriers to Learning: Hearing Impairment Stage of change r/t lifestyle modifications:: Contemplation Gave educational material for:: Treating Heart Disease, Emotions & Heart Disease, Stress Management & Relaxation, Sleep Disorders & Heart Disease, How The Heart Works, What it means to have Heart Disease, How Coronary Artery Disease is Diagnosed, Heart Procedures, What Heart Medications Do, Risk Factors & Modifications, Living an Active Life, Nutrition - Education/Goals Individual Counseling: Initial Assessment: Abnormal Cholesterol Levels, High Blood Pressure, Overweight/Obesity Cardiac Rehabilitation Goals: 1. Maintain the individual as the primary focus of care. 2. To improve the patient's quality of life. 3. Identification of cardiac risk factors and provide cardiac risk factor management. 4. Enhance the psychosocial status of the patient. 5. Reconditioning enough to allow the patient to resume customary activities. 6. Control symptoms of cardiac disease Personal Goals: Initial Assessment: Improve management of stress and emotions, Improve energy level, Get back to work, or to resume activities faster, Improve knowledge of cardiac disease, Improve muscle strength and endurance, Improve diet and eating habits (eat healthier), Control risk factors (learn risk factor modification) Scale for measuring improvement of personal goals: Enter appropriate number in Comments. 2 = Unchanged. 3 = Slightly Better. 4 = Moderate Improvement. 5 = Met my Goal - Diagnosis & Disease Process Outcomes/Goals: Pt IDs own risk factors & lifestyle modifications by Session 10, Verbalizes symptoms of angina & response by session 3., Pt independently manages Plan/Interventions: Assist Pt to ID & engage in lifestyle modification to reduce CVD risk, Instruct on individual risk factors, Review symptoms of angina & emergency actions, Review secondary diagnosis & identify educational needs. - Safety Referral to Physical Therapy: No Referral to [facility] Case Management: No Fall Risk Assessed:: Yes Assistive Devices:: Wheelchair - uses a wheelchair for long distance ambulation for stability due to tremors Exercise - Initial Assessment - Visit Date of Eval: 06/17/22 Session #:: 0 - Pre-cardiac rehab evaluation Mets: Pre-: >5 METS for 30 minutes by discharge - Physician Prescribed Exercise Modalities: Treadmill, NuStep, Lateral [employer] Worker Frequency: 3x/week for 12 weeks [36 sessions] Intensity: 60-80% of age predicted maximum heart rate reserve Duration: 30 - 45 minutes Current METSs:: 3.0 Target Heart Rate:: 90-104 Resting Blood Pressure: 130/70 EKG Type: Sinus bradycardia (history of atrial fibrillation post-op) - Outcomes & Goals Goals:: Verbalizes understanding of THR, RPE & goal METS by session 6, Documents in home exercise log/reports 30 min aerobic 5 day/wk by DC, Demonstrates accurate pulse taking by DC - Intervention & Plan Exercise Program Goals: Instruct on personal THR & RPE, Instruct on MET level & personal MET goal, Show patient to take own pulse /validate performance until accurate, Instruct on home exercise - Physical Activity Home Exercise Physical Activity - Home Exercise: Safe Exercise, Warm-up, Self-monitoring, Cool-Down, Home Exercise > 30 min Daily, Sitting Time <3 hours/daily - Outcomes & Goals Outcomes/Goals: Demonstrates correct Warm-up/exercise Cool-Down (S3) if = 2.5 METs, Verbalizes symptoms of exercise intolerance by Session 3 (S3), Demonstrate safe equipment use (S3) & follows exercise prescrition (6) - Intervention & Plan Plan/Intervention: Instruct warm-up & cool-down if exercising at > 2 METs, Instruct on symptoms of exercise intolerance & actions to take, Instruct & monitor on saf, Assess intial functional capacity & safety risk Nutrition - Initial Assessment - Program Goals Nutrition Program Goals: LDL <100 optimal. 100 - 129 Near optimal. 130 - 159 Borderline High. 160 - 189 High. Total Cholesterol <200 desirable. 200 - 239 Borderline High. >/= 240 High. HDL < 40 Low >/=60 High. Triglycerides <150 desirable. <199 optimal. VlDL 5 - 40. HgbA1C <7%. BMI <25 Patient has diagnosis of Hyperlipidemia (ICD E78)?: Yes - Visit Date of Assessment:: 06/17/22 Session #:: 0 - Pre-cardiac Rehab evaluation - Cholesterol/Lipids (Other Core Measures) Triglycerides (mg/dL): 138 Total Cholesterol (mg/dL): 201 LDL Cholesterol (mg/dL): 117 HDL Cholesterol (mg/dL): 56 Determine presence & major risk factors that modify LDL goal: Hypertension or hypertensive medication, Family history of premature CHD in Male < 55 years: female <65 yearsFa, Age men > 45 years; women >/= 55 years Outcomes/Goals: Pt IDs own risk factors & lifestyle modifications by Session 10, Verbalizes symptoms of angina & response by session 3., Pt independently manages Intervention/Plan: Instruct on personal lipid levels & lipid goals/NCEP guidelines, Instruct on cholesterol Referral to dietitian:: Yes - Diabetes (Other Core Measures) Diabetes Type: Not Applicable - Weight Mgt (Other Care) Not Applicable: No Height: 5 ft 10 in Weight:: 203 lb BMI: 29.1 Diagnosis Overweight/Obesity BMI> 30% ICD-10 E66: No Diagnosis High BMI/Morbid Obesity BMI> 35% ICD-10 Z68: No Outcomes/Goals: Pt sets, maintains & shows weight loss goal & trend during rehab Intervention/Plan: Instruct on ideal BMI & set weight loss goal w/patient, Assist pt to ID & incorporate diet changes for weight loss by S9, Encourage goal of using 250-300dcal per session for weight loss - Healthy Eating Habits Will attend diet classes:: Yes Outcomes/Goals:: Consume diet rich in vegs,fruits,whole grain/high fiber,fish,lean meat, Limit sat/trans fats,cholesterol & added salts & sugars Intervention/Plan:: Assess current eating habits - Education Gave educational materials for:: Healthy eating Nutrition - 30-Day Assessment Nutrition - 60-Day Assessment Nutrition - 90-Day Assessment Nutrition - Final Assessment Core - Initial Assessment - Visit Date of Eval: 06/17/22 Session #:: 0 - Pre-cardiac rehab evaluation - Medication Compliance Preventative Medication(s):: Aspirin, Clopidogrel/P2Y12 inhibit, Statin/lipid, Beta jerad, Eliquis H/O mental health issues: depression, anxiety, or addiction?: Yes Doesn?t believe in the benefits of treatment?: No Believes medications are unnecessary or harmful?: No Has a concern about medication side effects?: No Expresses concern over the cost of medications?: No Outcomes/Goals: Verbalizes medications,desired effect & common side effects @ DC, Pt self-reports following medication regimen, Keeps card in wallet w/medications listed by DC Interventions/plans: Instruct on medication effects & side effects, Review medication list w/patient every two weeks, Instruct importance of taking meds as ordered & assist problem solving - Tobacco Use Tobacco Use: Non-smoker - Hypertension Hypertension Diagnosis:: Hypertension ICD-10 I10 Resting Blood Pressure:: 130/70 [place] [employer] Hypertension Guidelines: [place] [employer] Hypertension Guidelines. Normal BP Less than 120/80. Elevated BP 120/80. Hypertension Stage 1: BP 130-139/80-89. Hypertesnion Stage 2: BP 140 or higher/90 or higher. Hypertension Crisis: BP higher than 180/120 Outcomes/Goals: Able to verbalize/achieve optimal blood pressure <130/80, Incorporates diet changes & exercise for blood pressure control by DC Interventions/plan: Instruct on optimal blood pressure, hypertension & medications, Instruct on effects of sodium, alcohol, stress, exercise &hypertension - Tobacco Cessation Referral Smoking Cessation Referral:: No Individual Education/Counseling:: No Education Schedule Given:: Yes Core - 30-Day Assessment Core - 60-Day Assessment Core - 90 Day Assessment Core - Final Assessment Psychosocial - Initial Assess - VIsit Date of Eval: 06/17/22 Session #:: 0 - Pre-cardiac rehab evaluation Not Applicable: No History of previous Mental disease:: Yes History of Emotional Disorders: Depression - Family concerned about his level of depression, he has had a difficult time dealing with his recent illness. Has stated if it wasn't for his he would have not had the surgery etc. Self-reported stressors: Recent Illness - Psychosocial Test Tool Used:: [employer] QOL Cardiac, PHQ-9 Questionnaire phq-9 Severity: Severity. 1-4 Minimal Depression. 5-9 Mild Depression. 10-14 Moderate Depression. 15-19 Moderately Sever Depression. 20-27 Severe Depression. Rule: - Referral to Behavioral Health PS - Interventions: Yes Referral to Physician if PHQ-9 if score is 5-9: - Patient family concerned about his level of depression, Yes Attend Stress Management Classes, No Referral to Behavioral Health if PHQ-9 score >9:, No Referral to [facility] - Outcomes/Goals: See list Psychosocial Outcomes/Goals:: ID's personal stressors & 2 strategies to manage stress by discharge - Intervention/Plan: See List Interventions/Plan:: Assess stressors,coping strategies & signs of derpression on admission, Instruct/assist pt to develop coping & personal stress Mgt strategies, Instruct patient to recognize signs & symptoms of depression, Instruct patient to recog Psychosocial - 30-Day Assess Psychosocial - 60-Day Assess Psychosocial - 90-Day Assess Psychosocial - Final Assessmen Patient Health Questionnaire Initial Assessment 1. Little interest or pleasure in doing things: Several days 2. Feeling down, depressed, or hopeless: Not at all 3. Trouble falling or staying asleep, or sleeping too much: Not at all 4. Feeling tired or having little energy: More than half the days 5. Poor appetite or overeating: More than half the days 6. Feeling bad about yourself -- or that you are a failure or have let yourself or your family down: Several days 7. Trouble concentrating on things, such as reading the newspaper or watching television: Not at all 8. Moving or speaking so slowly that other people could have noticed. Or the opposite - being so fidgety or restless that you have been moving around a lot more than usual: Not at all 9. Thoughts that you would be better off , or of hurting yourself in some way: Not at all How difficult have these problems made it for you to do your work, take care of things at home, or get along with other people?: Somewhat difficult Total Score: 6 CRISSY-Q SV Test - Statements CAD is a disease of the arteries in the heart: False Examples of risk factors for heart disease: True Angina is chest pain or discomfort: True The benefits of resistance training include: True Eating more meat and dairy products: True Anti-platelet medications such as aspirin are important: True The only effective way to manage stress: False An exercise warm-up slowly increases heart rate: True Prepared, processed foods usually have high sodium: True Depression is common after a heart attack: True The statin medications lower cholesterol: I Don't Know To control blood pressure, lower the amount of sodium: False If someone gets chest discomfort during walking: False Transfats are partially hydrogenated vegetable oils: False Sleep apnea that is not treated increases the risk: False To control cholesterol, one should become a vegetarian: False Someone knows if he/she is exercising at the right level: True Diabetes cannot be prevented with exercise & health eating: I Don't Know Stress is a large risk for heart attack: True A diet that can help lower blood pressure is rich in: True - Total Score Total Correct Responses: 15 Self-Efficacy Initial Assessment We would like to know how confident you are in doing certain activities. Please select your confidence level for:: Select your confidence level for the following using the scale 1-10 where 1 is not at all confident and 10 is totally confident. Your score is the average of all 6 responses. Fatigue: How confident are you that you can keep the fatigue caused by your disease from interfering with the things you want to do? Select Number: 6 Physical Discomfort or Pain: How confident are you that you can keep the physical discomfort or pain of your disease from interfering with the things you want to do? Select Number: 3 Emotional Distress: How confident are you that you can keep the emotional distress caused by your disease from interfering with the things you want to do? Select Number: 3 Other Symptoms or Health Problems: How confident are you that you can keep other symptoms or health problems from interfering with the things you want to do? Select Number: 9 Different Tasks and Activities: How confident are you that you can do the different tasks and activities needed to manage your health condition so as to reduce your need to see a doctor? Select Number: 9 Medication: How confident are you that you can do things other than just taking medication to reduce how much your illness affects your everyday life? Select Number: 9 Total Score:: 6 Nutrition Survey - Nutrition Survey Initial Have you lost >10 lbs over the past 2 months without trying?: Yes Are you following a special diet at home for diabetes, low fat, or low salt?: No Are you interested in meeting with a dietitian for help understanding your diet?: No Do you eat less than 3 meals a day?: Yes Do you eat fatty meats ([place], sausage, ribs, etc), fried foods, desserts, large amounts of salad dressings, margarine, butter, or cheese most days?: No Do you have food allergies? [Enter types in comment field]: No Do you eat in restaurants more than 3 times a week?: No Do you season food with salt, seasoning salt, or garlic salt?: No Do you used canned, boxed, frozen meals, or soups, seasoning packets?: Yes Total Score:: 3
[2022-06-17 09:07] VITALS: BP 130/70; PULSE 107; RESP 16; TEMP 37; O2SAT 97; BMI 29.1
[2022-06-17 09:31] VITALS: BP 130/70; BMI 29.1
== END | disposition home or self-care (01) ==
LOC: CR 08:03
PROVIDERS: PCP Internal Medicine; Referring Provider Thoracic Surgery (Cardiothoracic Vascular Surgery); Visit Provider Thoracic Surgery (Cardiothoracic Vascular Surgery)
DX: I25.10 Atherosclerotic heart disease of native coronary artery without angina pectoris (principal); I10 Essential (primary) hypertension; I25.2 Old myocardial infarction; E78.5 Hyperlipidemia, unspecified; E03.9 Hypothyroidism, unspecified; Z95.1 Presence of aortocoronary bypass graft

== ENCOUNTER → 2023-01-29 | Outpatient (CLI) | payer MEDICARE, OTHER, SELFPAY ==
[2022-06-17 09:31] VITALS: BMI 29.1
[2023-01-29 13:28] LABS: Absolute Lymphocyte Count 1.94 X10^3/uL (0.83-4.51); Absolute Neutrophil Count 3.5 X10^3/uL (2.0-7.7); Basophil# 0.04 X10^3/uL; Basophil% 0.6 % (0-1); Eosinophil# 0.23 X10^3/uL; Eosinophils% 3.5 % (0-5); Hematocrit 38.6 % (40-54); Hemoglobin 12.3 g/dL (13.0-16.5); Lymphocyte # 1.94 X10^3/ul (0.83-4.51); Lymphocyte % 29.6 % (19-41); Mean Corp Hgb Conc 31.9 g/dL (32-36); Mean Corpuscular Hgb 29.5 pg (27.0-32.0); Mean Corpuscular Volume 92.6 fL (80-94); Mean Platelet Vol. 9.5 fl (6.2-12.0); Monocyte# 0.79 X10^3/uL; NRBC Flagged by Analyzer 0 % (0-5); Neutrophil # 3.54 X10^3/uL (2.7-7.7); Platelet Count 177 K/mm3 (150-450); RBC Distribution Width CV 13.4 % (11.6-14.6); RBC Distribution Width SD 45.6 fl (35.1-43.9); Red Blood Count 4.17 M/mm3 (4.6-6.2); White Blood Count 6.6 K/mm3 (4.4-11.0)
[2023-01-29 14:00] LABS: Anion Gap 4 (5-15); BUN 21 mg/dL (7-18); BUN/Creat Ratio 27.1 RATIO (10-20); Calcium,Total 9.7 mg/dL (8.5-10.1); Chloride 107 mmol/L (98-107); Creatinine, Serum 0.77 mg/dL (0.70-1.30); EST Glomerular Filtration Rate 102 mL/min (>60); Est Glom Filt Rate - Afr Amer 124 mL/min (>60); Free T3 2.3 pg/mL (2.18-3.98); Glucose 88 mg/dL (74-106); Potassium 4.4 mmol/L (3.5-5.1); Sodium Level 142 mmol/L (136-145); T4 Free Direct 0.63 ng/dL (0.76-1.46); Thyroid Stim Hormone (TSH) 4.86 uIU/mL (0.358-3.74)
== END | disposition home or self-care (01) ==
LOC: LAB 12:21
PROVIDERS: PCP Internal Medicine; Visit Provider Nurse Practitioner Gerontology
DX: R53.83 Other fatigue (principal)
CPT/HCPCS: 36415; 80048; 84439; 84443; 84481; 85025

== ENCOUNTER 2023-04-01 00:49 | Emergency (ER) | payer MEDICARE, OTHER, SELFPAY ==
[2022-06-17 09:31] VITALS: BMI 29.1
[2023-04-01 00:50] VITALS: BP 222/108; PULSE 90; RESP 22; TEMP 36.6; O2SAT 95; BMI 27.3
[2023-04-01 01:03] VITALS: BP 222/116
--- NOTE | 2023-04-01 01:14 | CT_ITS ---
INDICATION: Mechanical fall EXAMINATION: CT CHEST WITHOUT CONTRAST - CT Chest W/O Contrast Injection TECHNIQUE: Helically acquired images were obtained of the chest. A radiation dose optimization technique was used for this scan. IV Contrast dosage and agent: None. COMPARISON: None. FINDINGS: LUNGS, PLEURA AND LARGE AIRWAYS: There is right lower lobe airspace disease with groundglass attenuation. There is some dependent atelectasis in the left lower lobe. There is a moderately large right-sided pleural effusion. No pneumothorax. THYROID: No thyroid lesions. HEART AND PERICARDIUM: Heart size is enlarged. No pericardial effusion. CORONARY ARTERIES: Coronary artery calcification is seen. VESSELS: Thoracic aorta is not dilated. There is atherosclerotic calcification of the thoracic aorta. MEDIASTINUM AND TONY: There are multiple prominent mediastinal nodes. There is no definite hilar lymphadenopathy. Esophagus is unremarkable. No hiatal hernia. UPPER ABDOMEN: No acute pathology. BONES: No suspicious lytic or blastic abnormality. There are acute minimally displaced fractures of the lateral right-sided ninth, eighth and seventh ribs. No definite flail chest is visualized. There is soft tissue emphysema adjacent to the right sided ribs within the chest wall. The bones appear osteopenic. Patient has had a sternotomy. CT/Chest without Contrast IMPRESSION: 1. Acute displaced right lateral seventh, eighth and ninth rib fractures. 2. Right-sided hemothorax with right lower lobe pulmonary hemorrhage and possible contusion. Electronically Signed: Vicki Mckeon MD at 3:32 EST ,
--- NOTE | 2023-04-01 01:14 | CT_ITS ---
STUDY: CT BRAIN WITHOUT CONTRAST REASON FOR EXAM: Male, 83 years old patient with mechanical fall. RADIATION DOSAGE (If Supplied By Facility): CTDIvol = ( 44.99 ) mGy, DLP = ( 829.85 ) mGycm TECHNIQUE: Transaxial CT imaging of the brain was performed without administration of intravenous contrast material. Multiplanar reformations are submitted for interpretation. Individualized dose optimization techniques were used for this CT. COMPARISON: CT of the head dated June 13, 2015. FINDINGS: Normal soft tissue structures. Normal calvarium. There is a small area of encephalomalacia within the posterior right occipital lobe that is new since the previous study and may represent old infarct. There is mild cerebral atrophy with widening of the extra-axial spaces and ventricular dilatation. There are areas of decreased attenuation within the white matter tracts of the supratentorial brain, consistent with microvascular disease changes. There are small punctate calcifications of the basal ganglia which are seen in the aging brain as a normal variant. Normal brainstem. There is mild cerebellar atrophy. There is no intracranial hemorrhage. There is mild atherosclerotic calcification of the intracranial arteries. Normal visualized paranasal sinuses. CT/Brain/Head without Contrast IMPRESSION: 1. Chronic involutional changes of the brain. 2. 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 3. No CT evidence of acute intracranial hemorrhage. Electronically Signed: Vicki Mckeon MD at 3:24 EST ,
[2023-04-01] MEDS: HYDROmorphone 1 MG/ML Syringe IV (01:23)
[2023-04-01] MEDS: Ondansetron 4 MG/2 ML Vial IV ×2 (01:23→04:13)
--- OUTSIDE RECORDS SUMMARY | 2023-04-01 01:51 | XMS RPT_ITS | CCD ---
Author Name Unknown Address [address] [place] [address] Organization [facility] Care Team Providers Care Agile Project Manager Name Role Phone JuliannacaroleJaskaran Unavailable Unavailable Jose Ramon Welch Unavailable Unavailable RODNEY APONTE Unavailable Unavailable Jose Ramon Welch Unavailable Unavailable IMCA Unavailable Unavailable Unavailable Primary Care Provider UnavailJose Ramon Guerrier MD Primary Care Provider [place] FAMILY MANAGER.NASH, Magi Slade Unavailable [phone] Javier Alex MD Unavailable [phone] Zay Chavez RN Unavailable Catracho Jc RN Unavailable [phone] Shira Brady MD Primary Care Provider TERESITA BERNAL Referring Unavailable SHIRA BRADY Primary Care Unavailable TERESITA BERNAL Attending Unavailable SHIRA BRADY Primary Care Unavailable MAGI PULLIAM Referring Unavailable SHIRA BRADY Primary Care Unavailable TERESITA BERNAL Attending Unavailable SHIRA BRADY Primary Care Unavailable STEPAN MIXON Referring Unavailable TIMOTEO II, SEMAJ Admitting Unavailable JAVIER ALEX Attending Unavailable FLORIDALMA GORDON Consulting Unavailable Zay Chavez RN Unavailable [phone] SHIRA BRADY Primary Care Unavailable TERESITA BERNAL Referring Unavailable Medications Current Medications Medication Drug Class(es) Dates Sig (Normalized) Sig (Original) acetaminophen 500 mg oral tablet (20 sources) Start: 04-30-2022 End: 05-30-2022 take 2 tablets by mouth every six hours as needed acetaminophen (TYLENOL) 500 mg tablet Take 2 tablets by mouth every 6 hours as needed for pain. 100 tablet 0 04/30/2022 05/30/2022 Active Completed/Discontinued Medications Medication Drug Class(es) Dates Sig (Normalized) Sig (Original) [id number] 200 actuat albuterol 0.09 mg/actuat metered dose inhaler (20 sources) beta2-Adrenergic Agonist Start: 05-06-2022 take 1 puff(s) by inhalation every four hours as needed for wheezing albuterol HFA (PROVENTIL HFA, VENTOLIN HFA) 90 mcg/actuation inhaler Inhale 1 Puff as instructed every 4 hours as needed for wheezing/shortnes s of breath. 0 05/06/2022 Active Problems Active Problems Problem Classification Problem Date Documented Date Episodic/Chronic Acute myocardial infarction (3 sources) Myocardial infarction; Translations: [Non-ST elevation (NSTEMI) myocardial infarction] Onset: 04-17-2022 Chronic Acute posthemorrhagic anemia (1 source) Acute posthemorrhagic anemia; Translations: [Acute posthemorrhagic anemia] Episodic Cardiac dysrhythmias (1 source) Unspecified atrial fibrillation; Translations: [Atrial fibrillation, unspecified type (HCC)] Onset: 06-05-2022 Chronic Coronary atherosclerosis and other heart disease (1 source) Coronary arteriosclerosis; Translations: [Atherosclerotic heart disease of koi coronary artery without angina pectoris] Chronic Coronary atherosclerosis and other heart disease (2 sources) Presence of aortocoronary bypass graft; Translations: [S/P CABG x 3] Onset: 04-30-2022 Episodic Disorders of lipid metabolism (20 sources) Hyperlipidemia; Translations: [Hyperlipidemia, unspecified] Onset: 08-30-2013 08-30-2013 Chronic Essential hypertension (20 sources) Benign essential hypertension; Translations: [Essential (primary) hypertension] Onset: 08-30-2013 02-03-2021 Chronic Other and unspecified benign neoplasm (20 sources) Neoplasm of meninges; 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, unspecified] Onset: 06-02-2018 06-02-2018 Chronic Other lower respiratory disease (1 source) Dyspnea; Translations: [Shortness of breath] Episodic Other lower respiratory disease (1 source) Shortness of breath; Translations: [SOB (shortness of breath)] Onset: 05-11-2022 Episodic Other nervous system disorders (1 source) Trigeminal neuralgia Onset: 08-19-2017 Episodic Other nervous system disorders (20 sources) Trigeminal nerve disorder; Translations: [Disorder of trigeminal nerve, unspecified] 03-02-2019 Episodic Other nutritional; endocrine; and metabolic disorders (20 sources) Obese class I; Translations: [Obesity, unspecified] Onset: 04-17-2022 04-17-2022 Chronic Unclassified (1 source) Unknown / UNK(Unknown) Onset: 08-19-2017 Past or Other Problems Problem Classification Problem Date Documented Da te Episodic/Chronic Other nervous system disorders (20 sources) Tremor; Translations: [Tremor, unspecified] Onset: 10-24-2015 10-24-2015 Episodic Results Test Name Value Interpretation Reference Range Facil ity Vital Signs Date Time Vital Sign Value Performing Clinician Facility 06-03-2022 12:10-0400 Body temperature 97.9 [degF] Carol Most RN Work Phone: [facility] 06-03-2022 12:10-0400 Body weight 90.72 kg Carol Most RN Work Phone: [facility] 06-03-2022 12:10-0400 Diastolic blood pressure 74 mm[Hg] Carol Most RN Work Phone: [facility] 06-03-2022 12:10-0400 Heart rate 68 /min Carol Most RN Work Phone: [facility] 06-03-2022 12:10-0400 Respiratory rate 16 /min Carol Most RN Work Phone: [facility] 06-03-2022 12:10-0400 SaO2% (BldA) [Mass fraction] 98 % Carol Most RN Work Phone: [facility] 06-03-2022 12:10-0400 Systolic blood pressure 122 mm[Hg] Carol Most RN Work Phone: [facility] 05-26-2022 15:49-0400 Body temperature 97 [degF] Carol Most RN Work Phone: [facility] 05-26-2022 15:49-0400 Body weight 94.26 kg Carol Most RN Work Phone: [facility] 05-26-2022 15:49-0400 Diastolic blood pressure 62 mm[Hg] Carol Most RN Work Phone: [facility] 05-26-2022 15:49-0400 Heart rate 88 /min Carol Whittaker RN Work Phone: [facility] 05-26-2022 15:49-0400 Respiratory rate 16 /min Carol Whittaker RN Work Phone: [facility] 05-26-2022 15:49-0400 SaO2% (BldA) [Mass fraction] 96 % Carol Whittaker RN Work Phone: [facility] 05-26-2022 15:49-0400 Systolic blood pressure 118 mm[Hg] Carol Whittaker RN Work Phone: [facility] 05-21-2022 11:06-0400 Body temperature 98.6 [degF] Little Marquis PT Work Phone: [facility] 05-21-2022 11:06-0400 Diastolic blood pressure 60 mm[Hg] Little Marquis PT Work Phone: [facility] 05-21-2022 11:06-0400 Heart rate 92 /min Little Marquis PT Work Phone: [facility] 05-21-2022 11:06-0400 Respiratory rate 16 /min Little Marquis PT Work Phone: [facility] 05-21-2022 11:06-0400 SaO2% (BldA) [Mass fraction] 95 % Little Marquis PT Work Phone: [facility] 05-21-2022 11:06-0400 Systolic blood pressure 124 mm[Hg] Little Marquis PT Work Phone: [facility] 05-20-2022 12:31-0400 Body temperature 97.5 [degF] Carol Whittaker RN Work Phone: [facility] 05-20-2022 12:31-0400 Body weight 94.26 kg Carol Most RN Work Phone: [facility] 05-20-2022 12:31-0400 Diastolic blood pressure 56 mm[Hg] Carol Most RN Work Phone: [facility] 05-20-2022 12:31-0400 Heart rate 84 /min Carol Most RN Work Phone: [facility] 05-20-2022 12:31-0400 Respiratory rate 16 /min Carol Most RN Work Phone: [facility] 05-20-2022 12:31-0400 SaO2% (BldA) [Mass fraction] 97 % Carol Most RN Work Phone: [facility] 05-20-2022 12:31-0400 Systolic blood pressure 108 mm[Hg] Carol Most RN Work Phone: [facility] 05-20-2022 10:51-0400 Diastolic blood pressure 80 mm[Hg] Jessica Ashanti OT/L Work Phone: [facility] 05-20-2022 10:51-0400 Heart rate 100 /min Jessica Ashanti OT/L Work Phone: [facility] 05-20-2022 10:51-0400 SaO2% (BldA) [Mass fraction] 98 % Jessica Ashanti OT/L Work Phone: [facility] 05-20-2022 10:51-0400 Systolic blood pressure 136 mm[Hg] Jessica Ashanti OT/L Work Phone: [facility] 05-20-2022 10:22-0400 Body temperature 98.29 [degF] Jessica Ashanti OT/L Work Phone: [facility] 05-20-2022 10:22-0400 Respiratory rate 18 /min Jessica Ashanti OT/L Work Phone: [facility] 05-19-2022 17:25-0400 Diastolic blood pressure 78 mm[Hg] Anthony Kruger PTA Work Phone: [facility] 05-19-2022 17:25-0400 Heart rate 83 /min Anthony Kruger SUPERVISOR PAINT DEPARTMENT Work Phone: [facility] 05-19-2022 17:25-0400 SaO2% (BldA) [Mass fraction] 97 % Anthony Kruger SUPERVISOR PAINT DEPARTMENT Work Phone: [facility] 05-19-2022 17:25-0400 Systolic blood pressure 128 mm[Hg] Anthony Kruger SUPERVISOR PA[employer] DEPARTMENT Work Phone: [facility] 05-19-2022 16:50-0400 Body temperature 97.81 [degF] Anthony rKuger SUPERVISOR PAINT DEPARTMENT Work Phone: [facility] 05-19-2022 16:50-0400 Respiratory rate 17 /min Anthony Kruger SUPERVISOR [employer] DEPARTMENT Work Phone: [facility] 05-15-2022 13:21-0400 Body temperature 97.7 [degF] Carol Most RN Work Phone: [facility] 05-15-2022 13:21-0400 Body weight 93.08 kg Carol Most RN Work Phone: [facility] 05-15-2022 13:21-0400 Diastolic blood pressure 64 mm[Hg] Carol Most RN Work Phone: [facility] 05-15-2022 13:21-0400 Heart rate 84 /min Carol Most RN Work Phone: [facility] 05-15-2022 13:21-0400 Respiratory rate 16 /min Carol Most RN Work Phone: [facility] 05-15-2022 13:21-0400 SaO2% (BldA) [Mass fraction] 95 % Carol Most RN Work Phone: [facility] 05-15-2022 13:21-0400 Systolic blood pressure 112 mm[Hg] Carol Most RN Work Phone: [facility] 05-15-2022 12:05-0400 Diastolic blood pressure 78 mm[Hg] Anthony Kruger SUPERVISOR PA[employer] DEPARTMENT Work Phone: [facility] 05-15-2022 12:05-0400 Heart rate 80 /min Anthony Blackert SUPERVISOR PA[employer] DEPARTMENT Work Phone: [facility] 05-15-2022 12:05-0400 Respiratory rate 17 /min Anthony Blackert SUPERVISOR PA[employer] DEPARTMENT Work Phone: [facility] 05-15-2022 12:05-0400 SaO2% (BldA) [Mass fraction] 96 % Anthony Blackert SUPERVISOR PA[employer] DEPARTMENT Work Phone: [facility] 05-15-2022 12:05-0400 Systolic blood pressure 120 mm[Hg] Anthony Blackert SUPERVISOR PAINT DEPARTMENT Work Phone: [facility] 05-15-2022 11:20-0400 Body temperature 97 [degF] Anthony Blackert SUPERVISOR PAINT DEPARTMENT Work Phone: [facility] 05-13-2022 12:53-0400 Diastolic blood pressure 74 mm[Hg] Anthony Blackert SUPERVISOR PAINT DEPARTMENT Work Phone: [facility] 05-13-2022 12:53-0400 Heart rate 84 /min Anthony Blackert SUPERVISOR PA[employer] DEPARTMENT Work Phone: [facility] 05-13-2022 12:53-0400 Respiratory rate 70 /min Anthony Blackert SUPERVISOR PA[employer] DEPARTMENT Work Phone: [facility] 05-13-2022 12:53-0400 SaO2% (BldA) [Mass fraction] 98 % Anthony Blackert SUPERVISOR PA[employer] DEPARTMENT Work Phone: [facility] 05-13-2022 12:53-0400 Systolic blood pressure 110 mm[Hg] Anthony Blackert SUPERVISOR PAINT DEPARTMENT Work Phone: [facility] 05-13-2022 12:05-0400 Body temperature 97.39 [degF] Anthony Blackert SUPERVISOR PA[employer] DEPARTMENT Work Phone: [facility] 05-12-2022 15:22-0400 Body temperature 98.29 [degF] Carol Whittaker RN Work Phone: [facility] 05-12-2022 15:22-0400 Body weight 93.62 kg Carol Whittaker RN Work Phone: [facility] 05-12-2022 15:22-0400 Diastolic blood pressure 86 mm[Hg] Carolmercy Whittaker RN Work Phone: [facility] 05-12-2022 15:22-0400 Heart rate 96 /min Carol Most RN Work Phone: [facility] 05-12-2022 15:22-0400 Respiratory rate 16 /min Carol Most RN Work Phone: [facility] 05-12-2022 15:22-0400 SaO2% (BldA) [Mass fraction] 97 % Carol Most RN Work Phone: [facility] 05-12-2022 15:22-0400 Systolic blood pressure 134 mm[Hg] Carol Most RN Work Phone: [facility] 05-11-2022 14:07-0400 Body height 177.8 cm Teresita Bernal APRN.CLIENT BUSINESS MANAGER Work Phone: [facility] 05-11-2022 14:07-0400 Body weight 92.17 kg Teresiat Bernal APRN.CLIENT BUSINESS MANAGER Work Phone: [facility] 05-11-2022 14:07-0400 Diastolic blood pressure 60 mm[Hg] Teresita Bernal APRN.CLIENT BUSINESS MANAGER Work Phone: [facility] 05-11-2022 14:07-0400 Heart rate 119 /min Teresita Bernal APRN.CLIENT BUSINESS MANAGER Work Phone: [facility] 05-11-2022 14:07-0400 SaO2% (BldA) [Mass fraction] 93 % Teresita Bernal APRN.CLIENT BUSINESS MANAGER Work Phone: [facility] 05-11-2022 14:07-0400 Systolic blood pressure 104 mm[Hg] Teresita Bernal APRN.CLIENT BUSINESS MANAGER Work Phone: [facility] 05-08-2022 11:11-0400 Body temperature 97.2 [degF] Alicia Saldivar RN Work Phone: [facility] 05-08-2022 11:11-0400 Diastolic blood pressure 68 mm[Hg] Alicia Saldivar RN Work Phone: [facility] 05-08-2022 11:11-0400 Heart rate 110 /min Alicia Saldivar RN Work Phone: [facility] 05-08-2022 11:11-0400 Respiratory rate 18 /min Alicia Saldivar RN Work Phone: [facility] 05-08-2022 11:11-0400 SaO2% (BldA) [Mass fraction] 95 % Alicia Saldivar RN Work Phone: [facility] 05-08-2022 11:11-0400 Systolic blood pressure 144 mm[Hg] Alicia Saldivar RN Work Phone: [facility] 05-07-2022 13:45-0400 Body temperature 96.6 [degF] Little Marquis PT Work Phone: [facility] 05-07-2022 13:45-0400 Diastolic blood pressure 56 mm[Hg] Little Berry-Sylvester PT Work Phone: [facility] 05-07-2022 13:45-0400 Heart rate 84 /min Little Berry-Phan PT Work Phone: [facility] 05-07-2022 13:45-0400 Respiratory rate 18 /min Little Marquis PT Work Phone: [facility] 05-07-2022 13:45-0400 SaO2% (BldA) [Mass fraction] 95 % Little EdwardPhan PT Work Phone: [facility] 05-07-2022 13:45-0400 Systolic blood pressure 110 mm[Hg] Little Ayaladerman-Phan PT Work Phone: [facility] 05-06-2022 19:41-0400 Body temperature 97 [degF] Alicia Saldivar RN Work Phone: [facility] 05-06-2022 19:41-0400 Diastolic blood pressure 62 mm[Hg] Alicia Saldivar RN Work Phone: [facility] 05-06-2022 19:41-0400 Heart rate 90 /min Alicia Saldivar RN Work Phone: [facility] 05-06-2022 19:41-0400 Respiratory rate 18 /min Alicia Saldivar RN Work Phone: [facility] 05-06-2022 19:41-0400 SaO2% (BldA) [Mass fraction] 93 % Alicia Saldivar RN Work Phone: [facility] 05-06-2022 19:41-0400 Systolic blood pressure 128 mm[Hg] Alicia Saldivar RN Work Phone: [facility] 04-20-2022 16:31-0400 SaO2% (BldA) [Mass fraction] 99 % [facility] Encounters Encounter Date Encounter Type Care Provider Facility Start: 06-09-2022 Telephone encounter Javier edouard MD Work Phone: [facility] Procedures Date Procedure Procedure Detail Performing Clinician Start: 04-30-2022 History of coronary artery bypass grafting S/P CABG x 3 Javier Alex MD Work Phone: Start: 04-20-2022 Antibody screen TERESITA GRADY Plan of Treatment Date Care Activity Detail Author Start: 05-12-2025 DIABETES SCREEN DIABETES SCREEN [facility] Start: 04-29-2025 DIABETES SCREEN DIABETES SCREEN [facility] Start: 04-17-2025 DIABETES SCREEN DIABETES SCREEN [facility] Start: 10-09-2022 Influenza vaccination INFLUENZ A (Season Ended) [facility] Start: 05-18-2022 End: 06-10-2023 Radiologic exam chest 2 views XR CHEST 2V FRONTAL/LAT Radiology Routine S/P CABG x 3 Expected: 05/18/2022 (Approximate), Expires: 06/10/2023 [facility] Work Phone: Payers Date Payer Category Payer Medicare [id number] 2015 Private Health Insurance HUMANA HUMANA MEDICARE SUPPLEMENT [id number] 2015-Present [phone] [address] [address] [place] [address] Indemnity [id number] 2006 Medicare MEDICARE MEDICAR E A AND B [id number] 2006-Present [phone] [place] [address] Medicare [id number] 2006 Medicare [id number] Medicare [id number] Social History Date Type Detail Facility Start: 10-24-2015 Tobacco smoking stat [facility] Never smoked tobacco [facility] Start: 10-24-2015 Tobacco use and exposure Smoke less tobacco non-user [facility] Start: 09-21-2021 End: 05-04-2022 Alcohol intake Current non-drinker of alcohol (finding) [facility] Start: 1940 Sex Assigned At Not on file [facility] Medical Equipment Procedure Code Equipment Code Equipment Origin al Text Equipment Identifier Dates Low Profile Ster nal X-Plate 8 Holes [id number] Start: 04-20-2022 Axs Smartlock Driving Screw 2.3mm X 12mm [id number] Start: 04-20-2022 Clinical Notes 03-25-2015 to 06-09-2022 Telephone Encounter - Ramez Calle - 06/09/2022 3:03 PM EDTTelephone Encounter - Carol Whittaker RN - [facility] [place] - Carol Whittaker RN - 06/03/2022 11:57 AM EDT Note Date & Type Note Facility 06-09-2022 Miscellaneous Notes Unable to reach Joanne Talley (pt's sam) [phone] no answer voicemail not set up. Will try again Referral information. 06/23/[address] Law @ [facility] [phone] . Referred to establish care S/P 04/20/22 CABG. Records faxed on 06/09/22. Dr. Rodriguez (GI) faxed referral for right hepatic dome cystic lesion seen on 04/17/22 CT Chest. Also faxed 06/05/22 office visit, CT reports, operative report, discharge summary & demographics. They will contact pt with appt date. Dr. Simental (Pulm) faxed referral for lung nodules seen on 04/17/22 CT Chest. Also faxed 06/05/22 office visit, CT reports, operative report, discharge summary & demographics. They will contact pt with appt date. Dr. Trevino (Oncology) faxed referral for T1 & left 10th rib sclerotic focus seen on 04/17/22 CT Chest. Also faxed 06/05/22 office visit, CT reports, operative report, discharge summary & demographics. They will contact pt with appt date. [id number] documented in this encounter [facility] 06-05-2022 Note HNO ID: [id number] Author: Teresita Bernal APRN.CLIENT BUSINESS MANAGER Service: ? Author Type: Nurse Practitioner Type: Progress Notes Filed: 06/05/2022 5:34 PM Note Text: HPI: This is an 82 year old male with a PMHx of HTN, Trigeminal Neuralgia, resting tremor and HLD who presented as a transfer from [facility] to [facility]. He originally presented to [place] [facility] 04/15/22 due to worsening chest pain. Initial EKG showed NSR without ST segment changes. HS Trop elevated initially at 2134 and peaked at 3350 per record review. Given HS Trop elevations, prompted patient to undergo Cardiac Cath, which showed MV CAD. Patient diagnosed with NSTEMI, started on Heparin gtt, and transferred to [facility] for CABG evaluation. Patient underwent CABG x3 (RICHMOND-LAD, SVG-OM, SVG-PDA) with Dr. Alex on 04/20/2022. He tolerated the procedure well and there were no immediate complications. He was extubated on time per early extubation protocol. Patient went into Afib around 9PM on the evening of POD#1. PT was subsequently started on Eliquis. Pt did experience urinary retention and required reinsertion of justin catheter, but on POD#5 passed voiding trial and is able to void on his own. Metoprolol has been increased over POD 6/7 for A fib 90-110. POD7 was a fib rates 120-130 so metoprolol increased to [address] PE negative for pulmonary embolism. Small pericardial effusion. A fib rvr 160s around 1900 so cardizem gtt was started as well. POD 8 transitioned to oral cardizem, continued on betablocker. Encouraged ambulation/showering. POD 9 Rapid response team for non cardiac chest pain - no ischemic changes to EKG, trop 71 (297 prior). Ambulated in se[place] several times subsequently, and showered, tolerated well. POD#10: Tele reviewed a fib 80-90s, no arrhythmias appreciated. VSS, SBP 106-128, 96% on RA. Denies any current chest pain, palp, sob, lh or dizziness. + nonproductive moist cough at times, improving each day. Reports loose BM last hs, none today. Voiding without difficulty. No abdominal pain. Bowel regimen held x 3 days. Tolerating po well. No n/v. Reports ambulated in hallway 3 times yesterday. Denies peripheral paresthesias. Pt tested positive for COVID 3, discharged home with his who also +COVID, with [facility] on 04/30/22, with order for lasix 20 mg daily and K replacement. To have BMP in 1 week. Chart reviewed. 05/03/22 patient's daughter called reporting pt with shortness of breath and was advised to go to ER. At [facility] per daughter, lasix increased to 40 mg daily x 2 days then resume 20 mg daily. Mucinex and albuterol added. Leg edema improving, weights down trending. To have CXR before appointment 05/11/22. Reviewed EKG at ER showing afib with HR 83. He was seen by myself for one week post dc follow up in office 05/11/22, recovering from COVID, still frequent nonproductive cough. Pt presents today for one month post discharge follow up. Interval events: Home nurse reported pt fell this past week while walking dog/leash wrapped around legs tripping him without new pain/injuries. Pt was discharged from [facility] 06/03/22. On encounter, pt reports doing well Fever/chills: denies Dizziness/lightheadedness/syncop e: denies Chest pain/palpitations/incisional pain: denies Any drainage from site: denies SOB/cough: denies SOB, sometimes cough but nothing comes up, a lot less cough than last visit Activity/Ambulation/Stairs: increasing a little every day per daughter Appetite: improved N/V/D/C/abdominal pain: denies Leg swelling: denies Sleep: eh pretty good Energy: very poor, per daughter, energy is slowly improving Weights: 200-205# BP AND HR log reviewed: pt not taking BP AND HR; Chart reviewed, BP has been controlled since 05/25, HR has been in 80s. Subjective: Current Outpatient Medications Medication Sig atorvastatin (LIPITOR) 40 mg tablet Take 1 tablet by mouth daily at bedtime. clopidogrel (PLAVIX) 75 mg tablet Take 1 tablet by mouth once daily. metoprolol tartrate, short acting, (LOPRESSOR) 50 mg tablet Take 1 tablet by mouth every 8 hours. Hold for heart rate <60, SBP <100 tamsulosin (FLOMAX) 0.4 mg Take 1 capsule by mouth once daily. lisinopril (ZESTRIL) 10 mg tablet Take 1 tablet by mouth once daily. apixaban (ELIQUIS) 5 mg tab(s) Take 1 tablet by mouth twice daily. dilTIAZem CD (CARDIZEM CD, CARTIA XT) 240 mg 24 hr capsule Take 1 capsule by mouth once daily. Hold for heart rate <60, SBP <100 furosemide (LASIX) 20 mg tablet Take 2 tablets by mouth once daily for 3 days, THEN 1 tablet once daily. potassium chloride ER (KLOR-CON M10) 10 mEq tablet Take 2 tablets by mouth once daily for 3 days, THEN 1 tablet once daily. albuterol HFA (PROVENTIL HFA, VENTOLIN HFA) 90 mcg/actuation inhaler Inhale 1 Puff as instructed every 4 hours as needed for wheezing/shortness of breath. levothyroxine 25 mcg cap Take 25 mcg by mouth daily before breakfast. carBAMazepine (TEGRETOL) (more content not included)... [facility] 06-03-2022 Miscellaneous Notes Good afternoon, Pt was discharged from home health today; goals have been met. He reported a fall that he had last week outside walking the dog-the dog wrapped the strap around him and he fell to the ground. He denies any injury, no new pain since the fall. Also; his daughter requests a referral to the [place] [facility] for cardiology. The [place] office [place] far for them and he plans to do his cardiac rehab at [facility]. Thank you for following this home health pt. documented in this encounter [facility] 06-03-2022 Miscellaneous Notes SITUATION: Fdc agency discharge visit completed today. daughter also present during today's visit. patient reports the following: Allergies--reviewed Medications--reviewed current medications Falls--None BACKGROUND: Reason for Home Care: post CABG ASSESSMENT: SN greeted at door by patient no DME and demonstrates stable gait. Patient appears in no acute distress. Patient/CG concerns verbalized today: no special concerns. Vitals (see flow sheet for details): stable SN findings today:Pt is ambulating in the living room, he continues to wear the sternal vest and adheres to sternal precautions. He reports that the sternal vest is still irriating his R axilla and his L nipple.. SN encouraged him to unbuckle the vest when he is sitting in his chair and encouraged him that the vest should be discontinued on 06/05 when he sees surgery. Pt continues to weight himself every day and states that weight was less today because he weighed without his boots on.Surgical wounds: there is a small amount of dermabond left on sternal incision, it is well approximated and healed, L elg incisioins are also healed. Pt reports that he is feeling well, just still weak in legs. SN encouraged him to continue the ambulation exercises and also the HEP given to him by therapy. See intervention summary for education details and any skills performed. Specific SN discharge instructions: continue all sternal precautions until released from surgery. Anticipate that surgery will refer you to cardiac rehab for the next phase. Continue your heart healthy diet and fluid intake of 6-8 cups per day. Patient encouraged to take all medication as ordered, eat a well-balanced diet and follow up with all physician appointments. NOMNC: signed and present on EMR Discharged due to Goals met. Patient discharged from Home Care to: self-care and family support RECOMMENDATION: Additional follow ups recommended: None Patient to follow up with Teresita Bernal CNP for additional medical questions/concerns. documented in this encounter [facility] 05-27-2022 Miscellaneous Notes Daughter, Zoya Burgos, , calling in. Daughter states her and [employer] have been playing phone tag. Daughter states she is trying to get the remaining 5 (five) medications that are going to [facility] to go to [facility] in [place]. Lizbeth Morillo LPN May 27, 2022 2:19 PM documented in this encounter [facility] 05-26-2022 Miscellaneous Notes SITUATION: Fdc routine visit completed today. only patient present during today's visit. patient reports the following: Allergies--reviewed Medications--reviewed current medications Falls--None BACKGROUND: Reason for Home Care: post CABG assessment and instruction ASSESSMENT: SN greeted at door by no one. Upon entrance patient found in chair Patient appears in no acute distress. Patient/CG concerns verbalized today: pt verbalizes that he continues to have pain in his R lower larm with certain kinds of reaching movements. This appears to be possible nerv related. He has some in the L side but not as significant as the R. Vitals (see flow sheet for details): stable SN findings today: Pt is reclining in chair resting. His daughter went back to [place] this am and he has other family members checking in on him periodically by phone or in person. He feels that he is getting around and managing his own basic needs. All chest wounds are healed, L leg incition still has dermabond intact but no signs of drainage or infection. Pt states that other that weakness, he continues to feel well. Pt continues to monitor weight and vitals daily, weight has been stable. Pt has his next f/u surgical appt on 06/05 and anticipate that pt will move on to OP cardiac rehab. NOMNC signed today for dc on 06/02/22 See intervention summary for education details. Patient demonstrated a need for further skilled SN services for safety and post CABG assessment and instruction. . Current Discharge plan: self-care, family support and chronic care clinic RECOMMENDATION: Next visit to focus on (be specific): Agency dc documented in this encounter [facility] 05-25-2022 Miscellaneous Notes Returned call to patient's daughter. Left VM and asked for return call, clarifying which medications she was expecting to have sent to [facility]. Daughter, Zoya Burgos, , calling in and left message. States she would like to speak with someone regarding patient's medications to make sure ALL are going to be sent to [facility]. Daughter states that only a couple have been transferred. Lizbeth Morillo LPN May 25, 2022 9:30 AM documented in this encounter [facility] 05-21-2022 Miscellaneous Notes SITUATION: daughter present during today's visit. patient and caregiver reports the following since the last homecare visit: medications/allergies--no changes, no fall. patient reports feeling much better. BACKGROUND: Diagnoses (reason for Home Care): [facility] on 04/16/2022-04/30/2022. Primary Diagnoses (reason for Home Care): Encounter for surgical aftercare following surgery on the circulatory system Presence of aortocoronary bypass gr aftNon-ST elevation (NSTEMI) myocardial infarction Atherosclerotic heart disease of koi coronary artery without angina pectoris Essential (primary) hypertension COVID-19 PROCEDURE(S): 04/20/2022 Coronary Artery Bypass Graft ACTIVE PROBLEM LIST Essential Hypertension, Benign Hyperlipidemia Trigemina l Nerve Disorder Tremor Meningioma (Hcc) Nstemi (Non-St Elevated Myocardial Infarction) (Hcc) See intervention summary for intervention/education details. Weight Bearing or Surgical Precautions: sternal precautions ASSESSMENT: Focus of visit: reassessment /discharge Physical therapy discharged: goals achieved. Functional performance at discharge - bed mobility independent, transfers independent, ambulation independent and stairs (ramp) independent. Plan of care, goals, and discharge reviewed and agreed upon with patient and/or caregiver. RECOMMENDATION: Patient discharged from PT and is active with SN and OT. Instructions to include:home exercise program as directed - cardiac rehab when ordered See intervention summary for intervention/education details. documented in this encounter [facility] 05-20-2022 Miscellaneous Notes SITUATION: Fdc routine visit completed today. daughter also present during today's visit. patient reports the following: Allergies--reviewed Medications--reviewed current medications Falls--None BACKGROUND: Reason for Home Care: post CABG care ASSESSMENT: SN greeted at door by caregiver. Upon entrance patient found in chair Patient appears in no acute distress. Patient/CG concerns verbalized today: pt verbalizes that he has been having some arm numbness Vitals (see flow sheet for details): stable SN findings today: Pt is sitting in recliner. SN notes that the sternal vvest in bunching up under his arms because of the pillow that he is using to support his back. SN adjusted sternal vest, replaced the pillow with a smaller one and instructed pt that he can unbuckle the vest when he is sitting, only needs to have it sarina when he is up and ambulating. Pt feels better after the adjustments were made. Vitals are stable, pt feels that he is getting stronger every day. All surgical wounds are healine well, CT sites are healed, dermabond is sloughing from chest and L leg. SN trmmed some from L inner knee. No edema is present. Pt is doing his ambulation exercises, has been ambulating in the home without his walker. PT will most likely dc pt tomorrow. Pt continues to use the incentive spirometer. Lungs sounds continue to be diminished to L base. Weight is up 1.5 lb today but was not done first thing this morning. Cg will continue to monitor. See intervention summary for education details. Patient demonstrated a need for further skilled SN services for medication education, wound/skin care, safety and post CABG care. Current Discharge plan: self-care and family support RECOMMENDATION: Next visit to focus on (be specific): post CABG assessment and instruction documented in this encounter [facility] 05-20-2022 Miscellaneous Notes SITUATION: OT routine visit daughter present during today's visit. patient reports the following since the last homecare visit: medications/allergies--no changes, no fall. patient reports he has been doing well and is havin no issues . BACKGROUND: Diagnoses or reason for Home Care: elevation (NSTEMI) myocardial infarction Atherosclerotic heart disease of koi coronary artery without angina pectoris Essential (primary) hypertension COVID-19 PROCEDURE(S): 04/20/2022 Coronary Artery Bypass Graft ACTIVE PROBLEM LIST Essential Hypertension, Benign Hyperlipidemia Trigemina l Nerve Disorder Tremor Meningioma (Hcc) Nstemi (Non-St Elevated Myocardial Infarction) (Hcc) Weight Bearing or Surgical Precautions: sternal precautions ASSESSMENT: Focus of Visit ue hep initiation Patient identified goals to get stronger Plan of care, goals, and visit frequency reviewed and agreed upon with patient and/or caregiver. See intervention summary for intervention/education details. Current Discharge Plan: remain in community with/without caregiver support. Anticipate discharge by 05/30/22 RECOMMENDATION: Next visit to focus on review of ue hep documented in this encounter [facility] 05-19-2022 Miscellaneous Notes SITUATION: [employer] routine visit. daughter present during today's visit. patient and caregiver reports the following since the last homecare visit: medications/allergies--no changes, no fall. patient reports feeling much better. BACKGROUND: Diagnoses (reason for Home Care): [facility] on 04/16/2022-04/30/2022. Primary Diagnoses (reason for Home Care): Encounter for surgical aftercare following surgery on the circulatory system Presence of aortocoronary bypass gr aftNon-ST elevation (NSTEMI) myocardial infarction Atherosclerotic heart disease of koi coronary artery without angina pectoris Essential (primary) hypertension COVID-19 PROCEDURE(S): 04/20/2022 Coronary Artery Bypass Graft ACTIVE PROBLEM LIST Essential Hypertension, Benign Hyperlipidemia Trigemina l Nerve Disorder Tremor Meningioma (Hcc) Nstemi (Non-St Elevated Myocardial Infarction) (Hcc) See intervention summary for intervention/education details. Weight Bearing or Surgical Precautions: sternal precautions ASSESSMENT: Pt reports no increased pain during today's PT tx. Pt cont's to make goal directed progress with Focus of visit: Plan of care, goals, and visit frequency reviewed and agreed upon with patient and/or caregiver. Current Discharge Plan: outpatient rehab Anticipate discharge by 05/21/22 RECOMMENDATION:Pt is scheduled for PT re-eval on 05/21/22. Pt status and D/C plans discussed with pt, daughter, and PT ( Sylvester ). See intervention summary for intervention/education details. documented in this encounter [facility] 05-19-2022 Miscellaneous Notes This Nurse contacted [facility]. This medication is on HOLD due to too early to fill. Insurance will contact cover since it had already been filled. Will be ready May 25, 2022 This Nurse contacted Kaitlyn webb, [phone], and notified. Lizbeth Morillo LPN May 19, 2022 9:44 AM Teresita Bernal APRN.NASH (4:52 PM) Can you please call pharmacy and see what the situation is? Looks like I sent this to [facility] on 05/15 for 30 day supply, it says received, not sure why I need to ?resend? Thanks! Teresita Kaitlyn Webb, , calling in to speak with CHOIR SINGERTeresita. Requesting refill of diltiazem to be called in to [facility]. States request made however [facility] states they didn't receive medication refill request. Lizbeth Morillo LPN May 18, 2022 1:12 PM documented in this encounter [facility] 05-18-2022 Miscellaneous Notes 05/18/22 [employer] received a phone call back from the pt.'s daughter Kaitlyn. She stated that she gave her sister Joanne [employer]'S name and phone number to call back. Kaitlyn statd she could talk with [employer] regarding community resources. [employer] educated the pt.'s daughter on PASSPORT and she stated that her sister looked into that and the pt. and his are not low income. [employer] asked her if she wanted information on Agencies to hire an Aide/ Homemaker and she does. She stated she would like [employer] to mail information to the pt.'s home and Email her sister Joanne the information. [employer] stated she can call her sister Joanne and inform her [employer] is Emailing her information. [employer] mailed and Emailed a list of Agencies to hire an Aide/Homemaker, list of Home Delivered Meal Providers, information on [facility] Agency on Aging for PASSPORT and the Aging and Disability Resource Center, [facility] information and referral, information on [facility] Transit and information on [employer] [place] for transportation to medical appointments. Thank You, documented in this encounter [facility] 05-18-2022 Miscellaneous Notes 05/18/22 12:57 PM - 1:02 PM [employer] received a phone call back from the pt.'s daughter Kaitlyn. She stated that she gave her sister Joanne [employer] name and phone number to call back. Kaitlyn stathunter she could talk with [employer] regarding community resources. [employer] educated the pt.'s daughter on PASSP[employer] and she stated that her sister looked into that and the pt. and his are not low income. [employer] asked her if she wanted information on Agencies to hire an Aide/ Homemaker and she does. She stated she would like [employer] to mail information to the pt.'s home and Email her sister Joanne the information. Email:[email or web address] stated she can call her sister Joanne and informher [employer] is Emailing her information. 05/18/22 1:10 PM - 1:11 PM [employer] called the pt.'s daughter Joanne and shima came on voicemail not set up and unable to leave a message. 05/18/22 [employer] mailed a list of Agencies to hire an Aide/Homemaker, list of Home Delivered Meal Providers, information on [facility] Agency on Aging for PASSPORT and the Aging and Disability Resource Center, [facility] information and referral, information on [facility] Transit and information on [employer] [place] for transportation to medical appointments. [employer] attached her card with information mailed. 05/18/22 1:47 PM [employer] Emailed the pt.'s daughter Joanne - a list of Agencies to hire an Aide/Homemaker, list of Home Delivered Meal Providers, information on [facility] Agency on Aging for PASSPORT and the Aging and Disability Resource Center, [facility] information and referral, information on [facility] Transit and information on [employer] [place] for transportation to medical appointments. 05/18/[address] [employer] [address] Javier Alex - [employer] received a phone call back from the pt.'s daughter Kaitlyn. She stated that she gave her sister Joanne [employer] name and phone number to call back. Kaitlyn statd she could talk with [employer] regarding community resources. [employer] educated the pt.'s daughter on PASSP[employer] and she stated that her sister looked into that and the pt. and his are not low income. [employer] asked her if she wanted information on Agencies to hire an Aide/ Homemaker and she does. She stated she would like [employer] to mail information to the pt.'s home and Email her sister Joanne the information. [employer] stated she can call her sister Joanne and inform her [employer] is Emailing her information. [employer] mailed and Emailed a list of Agencies to hire an Aide/Homemaker, list of Home Delivered Meal Providers, information on [facility] Agency on Aging for PASSPORT and the Aging and Disability Resource Center, [facility] and [facility] information and referral, information on [facility] Transit and information on [employer] [place] for transportation to medical appointments. Thank You, documented in this encounter [facility] 05-18-2022 Note HNO ID: [id number] Author: RT Autumn(R) Service: Radiology Author Type: Technologist Type: Progress Notes Filed: 05/18/2022 10:38 AM Note Text: Radiology Service Progress Note PATIENT NAME: Olga Lindsey DATE OF SERVICE: May 18, 2022 TIME: 10:30 AM PATIENT IDENTITY VERIFICATION COMPLETED USING TWO (2) IDENTIFIERS: Name and Date of confirmed by patient verbally. FALL SCREENING: Has the patient had 2 falls in the last year or 1 fall with injury or currently using an Ambulatory Assistive Device (Walker, Cane, Wheelchair, Crutches, etc.)? No PATIENT GENDER DATA: Male PATIENT RELEVANT IMPLANT DATA REVIEWED: Yes RADIOLOGY DEPARTMENT: General X-ray: Exam(s) Completed: Chest X-Ray PERIPHERAL IV DATA: Not applicable SIGNED BY: RT Autumn(R) May 18, 2022 10:30 AM [facility] 05-15-2022 Miscellaneous Notes SITUATION: Fdc routine visit completed today. daughter also present during today's visit. patient reports the following: Allergies--reviewed Medications--reviewed current medications Falls--None BACKGROUND: Reason for Home Care: post CABG assessment and instruction. ASSESSMENT: SN greeted at door by caregiver. Upon entrance patient found in chair Patient appears in no acute distress. Patient/CG concerns verbalized today: no special concerns Vitals (see flow sheet for details): stable SN findings today: Pt is ambulating back to his recliner. He is using the rolling walker and gait is steady. Pt denies pain, Pt reports that he is feeling stronger and has had therapy this week and is pleased with his progress. Weight has slowly been decreaseing, was 205.2 lbs today, minimal edema to L leg noted today, no edema to R leg. Pt keeping them elevated while he is the the jaquelin. All surgical wounds are healing well. No drainage or redness. Pt reports that his appetite is improving and he is taking fluids well. See intervention summary for education details. Patient demonstrated a need for further skilled SN services for chronic disease management & education, medication education, safety and post CABG assessment and instruction. . Current Discharge plan: self-care and family support RECOMMENDATION: Next visit to focus on (be specific): post CABG assessment and instruction documented in this encounter [facility] 05-15-2022 Miscellaneous Notes SITUATION: [employer] routine visit. daughter present during today's visit. patient reports the following since the last homecare visit: medications/allergies--no changes, no fall. patient reports: I feel pretty good Anthony. Much better. BACKGROUND: Diagnoses (reason for Home Care): [facility] on 04/16/2022-04/30/2022. Primary Diagnoses (reason for Home Care): Encounter for surgical aftercare following surgery on the circulatory system Presence of aortocoronary bypass gr aftNon-ST elevation (NSTEMI) myocardial infarction Atherosclerotic heart disease of koi coronary artery without angina pectoris Essential (primary) hypertension COVID-19 PROCEDURE(S): 04/20/2022 Coronary Artery Bypass Graft ACTIVE PROBLEM LIST Essential Hypertension, Benign Hyperlipidemia Trigemina l Nerve Disorder Tremor Meningioma (Hcc) Nstemi (Non-St Elevated Myocardial Infarction) (Hcc) See intervention summary for intervention/education details. ASSESSMENT: Pt reports no increased pain during today's PT tx. Pt's incision appears clean, dry, and intact with no S/S of infection. Focus of visit: Improving trunk/ LE strength and functional reserve. Plan of care, goals, and visit frequency reviewed and agreed upon with patient and/or caregiver. Current Discharge Plan: outpatient rehab Anticipate discharge by 05/21/22 RECOMMENDATION: Pt would cont to benefit from further PT tx to improve LE/ trunk strength and functional reserve in order to decrease asst with transfers and Gt. Next visit to focus on: Gt training with std cane. See intervention summary for intervention/education details. documented in this encounter [facility] 05-15-2022 Miscellaneous Notes 05/15/22 8:38 AM [employer] received phone call from Carol Whittaker RN regarding the pt.'s daughter Kaitlyn is her staying with the pt. from [place]. She wanted information on Agencies to hire an Aide in the home. [employer] will contact the pt.'s daughter. 05/15/22 10:01 AM - 10:03 AM [employer] called the pt.'s daughter Kaitlyn and left her a message that Carol the Nurse called [employer] today regarding her wanting information on Agencies to hire an Aide in the home and regarding community resources. [employer] left her name and phone number for the pt.'s daughter to call [employer] back. documented in this encounter [facility] 05-14-2022 Miscellaneous Notes Kaitlyn [place], , notified per below. Lizbeth Morillo LPN May 14, 2022 9:54 AM Teresita Bernal APRN.CN Received: Today Hi! Can you please let the patient know his labs from 05/12/22 are unremarkable, no new orders from us at this point in time. Thanks! documented in this encounter [facility] 05-13-2022 Miscellaneous Notes [facility] phone [phone] fax [phone] Orders, 05/11/22 office encounter & 04/20/22 operative report faxed on 05/13/22 documented in this encounter [facility] 05-13-2022 Miscellaneous Notes SITUATION: [employer] routine visit. daughter present during today's visit. patient and caregiver reports the following since the last homecare visit: medications/allergies--no changes, no fall. patient reports feeling better. BACKGROUND: Diagnoses (reason for Home Care): [facility] on 04/16/2022-04/30/2022. Primary Diagnoses (reason for Home Care): Encounter for surgical aftercare following surgery on the circulatory system Presence of aortocoronary bypass gr aftNon-ST elevation (NSTEMI) myocardial infarction Atherosclerotic heart disease of koi coronary artery without angina pectoris Essential (primary) hypertension COVID-19 PROCEDURE(S): 04/20/2022 Coronary Artery Bypass Graft ACTIVE PROBLEM LIST Essential Hypertension, Benign Hyperlipidemia Trigemina l Nerve Disorder Tremor Meningioma (Hcc) Nstemi (Non-St Elevated Myocardial Infarction) (Hcc) See intervention summary for intervention/education details. Weight Bearing or Surgical Precautions: sternal precautions ASSESSMENT: Pt reports no increased pain during today's PT tx. Pt's incision appears clean, dry, and intact with no S/S of infection. Focus of visit: Establish HEP ( LE ex's 2-3 x a day ), walking program ( walk with walker every hour during the day.). Plan of care, goals, and visit frequency reviewed and agreed upon with patient and/or caregiver. Current Discharge Plan: outpatient rehab Anticipate discharge by 05/21/22 RECOMMENDATION: Pt would cont to benefit from further PT tx to improve LE/ trunk strength and balance in order to decrease assistance with transfers, walking, and stair negotiation. Next visit to focus on: Improving trunk/ LE strength and functional reserve. See intervention summary for intervention/education details. documented in this encounter [facility] 05-12-2022 Note HNO ID: [id number] Author: Daniel Dawson RN Service: ? Author Type: Registered Nurse Type: Progress Notes Filed: 05/12/2022 2:07 PM Note Text: TRANSITION CARE MANAGEMENT (TCM) FOLLOW-UP NOTE Provider Action/FYI TCM received VM from daughter inquiring about OT. Validated daughter Kaitlyn is involved in patient's care. She is aware [facility] will be reaching out to her later today in regards to OT visit for tomorrow. Kaitlyn appreciative of return call, denies questions/concerns. Patient identified by name and date of : YES Spoke to daughter Kaitlyn Summary: Pt discharged from [facility] on 04/30/22. Admitted for: NSTEMI Top Lift Compressor plan for next outreach: No further follow up needed at this time MERLINE Education Ordered -: No Signature Daniel Dawson RN May 12, 2022 [facility] 05-12-2022 Miscellaneous Notes SITUATION: Fdc routine visit completed today. daughter also present during today's visit. patient reports the following: Allergies--reviewed Medications--reviewed current medications Falls--None BACKGROUND: Reason for Home Care: post CABG assessment and instruction ASSESSMENT: SN greeted at door by caregiver. Upon entrance patient found in chair Patient appears in no acute distress. Patient/CG concerns verbalized today: Cg verbalizes that pt had a 3 lb weight gain overnight. Vitals (see flow sheet for details): stable SN findings today: Pt is sitting in recliner. Cg and pt reported from his vs with [employer] yesterday and that furosemide was increased back to 40 mg daily for the next 3 days. Pt had a 3 lb weight gain since yesterday but only took 20 mg of the furosemide yesterday. Pt has minimal edema to lower legs and feet and cg reports that this was worse yesterday, she feels because pt was out for quite awhile due to his appt and he did not elevate his legs much yesterday. SN to call cg tomorrow am to check on weight. Ordered labs drawn today. Pt verbalizes frustration over his weakness and he feels like he should be progressing faster, he does relate that he is feeling better day by day and much encouragement given by SN and cg that he is progressing well. All surgical wounds are healing well, pt compliant with sternal precautions and wearing sternal vest, use of incentive spirometer. He is drinking one protein shake a day. Pt is ambulating with a rollator walker with cg supervision. He reports that he did have a fall in bathroom on Wednesday, he states that he went to his knees while pulling down his pants to use the toilet. He was able to get himself up and denies any injury. He relates that to generalized weakness, he denies having any dizziness or lightheadedness when this occurred. See intervention summary for education details. Patient demonstrated a need for further skilled SN services for medication education, wound/skin care, safety and post CABG care. Current Discharge plan: self-care and family support RECOMMENDATION: Next visit to focus on (be specific): post CABG assessment and instruction. documented in this encounter [facility] 05-12-2022 History of Presen t illness Narrative TRANSITION CARE MANAGEMENT (TCM) FOLLOW-UP NOTE Provider Action/FYI TCM received VM from daughter inquiring about OT. Validated daughter Kaitlyn is involved in patient's care. She is aware [facility] will be reaching out to her later today in regards to OT visit for tomorrow. Kaitlyn appreciative of return call, denies questions/concerns. Patient identified by name and date of : YES Spoke to junito Sahni Summary: Pt discharged from [facility] on 04/30/22. Admitted for: NSTEMI Top Lift Compressor plan for next outreach: No further follow up needed at this time MERLINE Education Ordered -: No Signature Daniel Dawson RN May 12, 2022 documented in this encounter [facility] 05-12-2022 Note Patient Outreach [place] OLGA LINDSEY ([id number]) 1940 M Date Time Provider Department 05/12/22 DANIEL DAWSON During your visit today, we recorded the following information about you: Daniel Dawson RN 05/12/2022 2:07 PM Signed TRANSITION CARE MANAGEMENT (TCM) FOLLOW-UP NOTE Provider Action/FYI TCM received VM from daughter inquiring about OT. Validated daughter Kaitlyn is involved in patient's care. She is aware [facility] will be reaching out to her later today in regards to OT visit for tomorrow. Kaitlyn appreciative of return call, denies questions/concerns. Patient identified by name and date of : YES Spoke to daughter Kaitlyn Summary: Pt discharged from [facility] on 04/30/22. Admitted for: NSTEMI Top Lift Compressor plan for next outreach: No further follow up needed at this time MERLINE Education Ordered -: No Signature Daniel Dawson RN May 12, 2022 Allergies As of Date: 05/12/2022 (No Known Allergies) Date Reviewed: 05/08/2022 Reviewed by: Alicia Saldivar RN - Fully Assessed Reason for Visit: Transition Of Care [4074] Cmt: Tcm follow up Prescriptions as of 05/12/2022 - furosemide (LASIX) 20 mg tablet Take 2 tablets by mouth once daily for 3 days, THEN 1 tablet once daily. - potassium chloride ER (KLOR-CON M10) 10 mEq tablet Take 2 tablets by mouth once daily for 3 days, THEN 1 tablet once daily. - guaiFENesin (MUCINEX) 600 mg 12 hr tablet Take 600 mg by mouth twice daily. - albuterol HFA (PROVENTIL HFA, VENTOLIN HFA) 90 mcg/actuation inhaler Inhale 1 Puff as instructed every 4 hours as needed for wheezing/shortness of breath. - acetaminophen (TYLENOL) 500 mg tablet Take 2 tablets by mouth every 6 hours as needed for pain. - atorvastatin (LIPITOR) 40 mg tablet Take 1 tablet by mouth daily at bedtime. - lisinopril (ZESTRIL) 10 mg tablet Take 1 tablet by mouth once daily. - tamsulosin (FLOMAX) 0.4 mg Take 1 capsule by mouth once daily. - metoprolol tartrate, short acting, (LOPRESSOR) 50 mg tablet Take 1 tablet by mouth every 8 hours. Hold for heart rate <60, SBP <100 - dilTIAZem CD (CARDIZEM CD, CARTIA XT) 240 mg 24 hr capsule Take 1 capsule by mouth once daily. Hold for heart rate <60, SBP <100 - apixaban (ELIQUIS) 5 mg tab(s) Take 1 tablet by mouth twice daily. - magnesium oxide (MAG-OX) 400 mg (241.3 mg magnesium) tablet Take 1 tablet by mouth once daily. - clopidogrel (PLAVIX) 75 mg tablet Take 1 tablet by mouth once daily. - lidocaine (SALONPAS) 4 % patch Apply 1 Patch as directed once daily for 14 days. Cut in half lengthwise and place on either side of sternal incision. Leave on for 12 hours then remove after 12 hours and replace with new one if needed for pain - levothyroxine 25 mcg cap Take 25 mcg by mouth daily before breakfast. - carBAMazepine (TEGRETOL) 200 mg tablet Take 1 tablet by mouth three times daily. 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 Author Type: Nurse Practitioner Type: Progress Notes Filed: 05/11/2022 3:38 PM Note Text: HPI: This is an 82 year old male with a PMHx of HTN, Trigeminal Neuralgia, resting tremor and HLD who presented as a transfer from [facility] to [facility]. He originally presented to [place] 04/15/22 due to worsening chest pain. Initial EKG showed NSR without ST segment changes. HS Trop elevated initially at 2134 and peaked at 3350 per record review. Given HS Trop elevations, prompted patient to undergo Cardiac Cath, which showed MV CAD. Patient diagnosed with NSTEMI, started on Heparin gtt, and transferred to [facility] for CABG evaluation. Patient underwent CABG x3 (RICHMOND-LAD, SVG-OM, SVG-PDA) with Dr. Alex on 04/20/2022. He tolerated the procedure well and there were no immediate complications. He was extubated on time per early extubation protocol. Patient went into Afib around 9PM on the evening of POD#1. PT was subsequently started on Eliquis. Pt did experience urinary retention and required reinsertion of justin catheter, but on POD#5 passed voiding trial and is able to void on his own. Metoprolol has been increased over POD 6/7 for A fib 90-110. POD7 was a fib rates 120-130 so metoprolol increased to [address] PE negative for pulmonary embolism. Small pericardial effusion. A fib rvr 160s around 1900 so cardizem gtt was started as well. POD 8 transitioned to oral cardizem, continued on betablocker. Encouraged ambulation/showering. POD 9 Rapid response team for non cardiac chest pain - no ischemic changes to EKG, trop 71 (297 prior). Ambulated in [place] several times subsequently, and showered, tolerated well. POD#10: Tele reviewed a fib 80-90s, no arrhythmias appreciated. VSS, SBP 106-128, 96% on RA. Denies any current chest pain, palp, sob, lh or dizziness. + nonproductive moist cough at times, improving each day. Reports loose BM last hs, none today. Voiding without difficulty. No abdominal pain. Bowel regimen held x 3 days. Tolerating po well. No n/v. Reports ambulated in hallway 3 times yesterday. Denies peripheral paresthesias. Pt tested positive for COVID 04/30/22, discharged home with his who also +COVID, with [facility] on 04/30/22, with order for lasix 20 mg daily and K replacement. To have BMP in 1 week. Chart reviewed. 05/03/22 patient's daughter called reporting pt with shortness of breath and was advised to go to ER. At [place] ER per daughter, lasix increased to 40 mg daily x 2 days then resume 20 mg daily. Mucinex and albuterol added. Leg edema improving, weights down trending. To have CXR before appointment 05/11/22. Reviewed EKG at ER showing afib with HR 83. Patient returns to the office today for one week post-discharge follow up, had CXR done this afternoon prior to appointment. Interval events: pt presents with 2 daughters today. Pt seen sitting up in wheelchair. On encounter, pt reports fine, tired and weak but other than that I'm in no pain Fever/chills: denies Dizziness/lightheadedness/syncop e: dizzy when I first get up Chest pain/palpitations/incisional pain: denies Any drainage from site: denies SOB/cough: coughing all the time, nothing comes up, gets SOB with coughing, better when sitting up per daughter Activity/Ambulation/Stairs: walking with walker, not short of breath Appetite: terrible , daughters state pt has no problem eating sweets N/V/D/C/abdominal pain: denies Leg swelling: denies, they're tired though Sleep: sleeps a lot, only wakes from coughing fits Energy: feels tired weights: 216.4 day after discharge, today 203.2 per daughters. Doesn't like the protein shakes. Has been drinking one per day BP AND HR log reviewed: per daughter, 139/99 was highest, 117/68, 104/60, 144/68, 117/64; Heart rate all over the place 77-119 Pt's went to the hospital the day patient got home from the hospital, and has not seen her since. Subjective: Current Outpatient Medications Medication Sig guaiFENesin (MUCINEX) 600 mg 12 hr tablet Take 600 mg by mouth twice daily. albuterol HFA (PROAIR HFA) 90 mcg/actuation inhaler Inhale 1 Puff as instructed every 4 hours as needed for wheezing/shortness of breath. potassium chloride ER (KLOR-CON M10) 10 mEq tablet Take 1 tablet by mouth once daily for 14 days. furosemide (LASIX) 20 mg tablet Take 1 tablet by mouth once daily for 14 days. acetaminophen (TYLENOL) 500 mg tablet Take 2 tablets by mouth every 6 hours as needed for pain. atorvastatin (LIPITOR) 40 mg tablet Take 1 tablet by mouth daily at bedtime. lisinopril (ZESTRIL) 10 mg tablet Take 1 tablet by mouth once daily. tamsulosin (FLOMAX) 0.4 mg Take 1 capsule by mouth once daily. metoprolol tartrate, short acting, (LOPRESSOR) 50 mg tablet Take 1 tablet by mouth every 8 hours. Hold for heart rate <60, SBP <100 dilTIAZem CD (CARDIZEM CD, CARTIA XT) 240 mg 24 hr (more content not included)... [facility] 05-11-2022 Instructions Teresita Bernal APRN.NASH - 05/11/2022 3:15 PM EDT Weight: Please continue monitoring daily weight; Activity:Continue gradual increase in activities as tolerated; Diet: Heart healthy diet with good protein intake; green leafy vegetable, low salt, and 2 L fluid daily Devices: Wear supportive stockings until leg swelling improved; posthorax vest (up to 1 month) during daytime and off at nighttime; Restrictions: Continue the weight limit to less than 10 lbs (for one month), and no driving until cleared by your providers; Advice: please change position slowly to prevent fall due to dizziness; Medications: Increase lasix to 40 mg daily (2 tabs of lasix 20 mg) x 3 days then resume 20 mg daily. Increase potassium to 20 mEq daily (2 tabs of 10 mEq) x 3 days then resume 10 mEq daily. Will ask the home nurse to draw labs tomorrow. Please have another chest x-ray later this week or early next week. Upcoming appointments: Please follow up back here in 3-4 weeks with chest x-ray prior to that appointment Keep cardiology appointment 06/12/22 Please make primary care appointment. Please make specialist appointments with pulmonology, GI, hematology/oncology. Thanks for coming in to see me today. Please call us if you have any concerns/questions: [phone] Teresita Bernal APRN.NASH documented in this encounter [facility] 05-11-2022 History of Presen t illness Narrative HPI: This is an 82 year old male with a PMHx of HTN, Trigeminal Neuralgia, resting tremor and HLD who presented as a transfer from [facility] to [facility]. He originally presented to [place] 04/15/22 due to worsening chest pain. Initial EKG showed NSR without ST segment changes. HS Trop elevated initially at 2134 and peaked at 3350 per record review. Given HS Trop elevations, prompted patient to undergo Cardiac Cath, which showed MV CAD. Patient diagnosed with NSTEMI, started on Heparin gtt, and transferred to [facility] for CABG evaluation. Patient underwent CABG x3 (RICHMOND-LAD, SVG-OM, SVG-PDA) with Dr. Alex on 04/20/2022. He tolerated the procedure well and there were no immediate complications. He was extubated on time per early extubation protocol. Patient went into Afib around 9PM on the evening of POD#1. PT was subsequently started on Eliquis. Pt did experience urinary retention and required reinsertion of justin catheter, but on POD#5 passed voiding trial and is able to void on his own. Metoprolol has been increased over POD 6/7 for A fib 90-110. POD7 was a fib rates 120-130 so metoprolol increased to [address] PE negative for pulmonary embolism. Small pericardial effusion. A fib rvr 160s around 1900 so cardizem gtt was started as well. POD 8 transitioned to oral cardizem, continued on betablocker. Encouraged ambulation/showering. POD 9 Rapid response team for non cardiac chest pain - no ischemic changes to EKG, trop 71 (297 prior). Ambulated in [place] several times subsequently, and showered, tolerated well. POD#10: Tele reviewed a fib 80-90s, no arrhythmias appreciated. VSS, SBP 106-128, 96% on RA. Denies any current chest pain, palp, sob, lh or dizziness. + nonproductive moist cough at times, improving each day. Reports loose BM last hs, none today. Voiding without difficulty. No abdominal pain. Bowel regimen held x 3 days. Tolerating po well. No n/v. Reports ambulated in hallway 3 times yesterday. Denies peripheral paresthesias. Pt tested positive for COVID 04/30/22, discharged home with his who also +COVID, with [facility] on 04/30/22, with order for lasix 20 mg daily and K replacement. To have BMP in 1 week. Chart reviewed. 05/03/22 patient's daughter called reporting pt with shortness of breath and was advised to go to ER. At [place] ER per daughter, lasix increased to 40 mg daily x 2 days then resume 20 mg daily. Mucinex and albuterol added. Leg edema improving, weights down trending. To have CXR before appointment 05/11/22. Reviewed EKG at ER showing afib with HR 83. Patient returns to the office today for one week post-discharge follow up, had CXR done this afternoon prior to appointment. Interval events: pt presents with 2 daughters today. Pt seen sitting up in wheelchair. On encounter, pt reports fine, tired and weak but other than that I'm in no pain Fever/chills: denies Dizziness/lightheadedness/syncop e: dizzy when I first get up Chest pain/palpitations/incisional pain: denies Any drainage from site: denies SOB/cough: coughing all the time, nothing comes up, gets SOB with coughing, better when sitting up per daughter Activity/Ambulation/Stairs: walking with walker, not short of breath Appetite: terrible , daughters state pt has no problem eating sweets N/V/D/C/abdominal pain: denies Leg swelling: denies, they're tired though Sleep: sleeps a lot, only wakes from coughing fits Energy: feels tired weights: 216.4 day after discharge, today 203.2 per daughters. Doesn't like the protein shakes. Has been drinking one per day BP & HR log reviewed: per daughter, 139/99 was highest, 117/68, 104/60, 144/68, 117/64; Heart rate all over the place 77-119 Pt's went to the hospital the day patient got home from the hospital, and has not seen her since. Subjective: Current Outpatient Medications Medication Sig guaiFENesin (MUCINEX) 600 mg 12 hr tablet Take 600 mg by mouth twice daily. albuterol HFA (PROAIR HFA) 90 mcg/actuation inhaler Inhale 1 Puff as instructed every 4 hours as needed for wheezing/shortness of breath. potassium chloride ER (KLOR-CON M10) 10 mEq tablet Take 1 tablet by mouth once daily for 14 days. furosemide (LASIX) 20 mg tablet Take 1 tablet by mouth once daily for 14 days. acetaminophen (TYLENOL) 500 mg tablet Take 2 tablets by mouth every 6 hours as needed for pain. atorvastatin (LIPITOR) 40 mg tablet Take 1 tablet by mouth daily at bedtime. lisinopril (ZESTRIL) 10 mg tablet Take 1 tablet by mouth once daily. tamsulosin (FLOMAX) 0.4 mg Take 1 capsule by mouth once daily. metoprolol tartrate, short acting, (LOPRESSOR) 50 mg tablet Take 1 tablet by mouth every 8 hours. Hold for heart rate <60, SBP <100 dilTIAZem CD (CARDIZEM CD, CARTIA XT) 240 mg 24 hr capsule Take 1 capsule by mouth once daily. Hold for heart rate <60, SBP <100 apixaban (ELIQUIS) 5 mg tab(s) Take 1 tablet by mouth twice daily. magnesium oxide (MAG-OX) 400 mg (241.3 mg magnesium) tablet Take 1 tablet by mouth once daily. clopidogrel (PLAVIX) 75 mg tablet Take 1 tablet by mouth once daily. lidocaine (SALONPAS) 4 % patch Apply 1 Patch as directed once daily for 14 days. Cut in half lengthwise and place on either side of sternal incision. Leave on for 12 hours then remove after 12 hours and replace with new one if needed for pain levothyroxine 25 mcg cap Take 25 mcg by mouth daily before breakfast. carBAMazepine (TEGRETOL) 200 mg tablet Take 1 tablet by mouth three times daily. No current facility-administered medications for this visit. Patient has no known allergies. PAST MEDICAL HISTORY Diagnosis Date HTN (hypertension) 08/12/2013 [place] [facility] Tremor Trigeminal neuralgia PAST SURGICAL HISTORY Procedure Laterality Date CABG (3) VEIN GRAFTS & ARTERIAL GRAFT(S) 04/20/2022 (RICHMOND-LAD, SVG-OM, SVG-PDA PAST SURGICAL HISTORY OF chain saw laceration PAST SURGICAL HISTORY OF stereotactic radiosurgery for left sided trigeminal neuralgia and meningioma PROSTATECTOMY, SIMPLE, BENIGN 08/18/2013 Dr. Vasquez TONSILLECTOMY PRIMARY/SECONDARY <AGE 13 Tonsillectomy FAMILY HISTORY Problem Relation Age of Onset None Mother None Father Social History Tobacco Use Smoking status: Never Smokeless tobacco: Never Substance Use Topics Alcohol use: No Drug use: No ROS - see HPI Objective: Physical Examination: Vitals:There were no vitals taken for this visit. Last 2 Encounter Wt Readings: Date: Wt: 04/16/2022 198 lb 10.2 oz (90.1 kg) 02/15/2020 227 lb (103 kg) Physical Exam Vitals reviewed. Constitutional: General: He is not in acute distress. Appearance: He is not ill-appearing or toxic-appearing. HENT: Right Ear: Decreased hearing noted. Left Ear: Decreased hearing noted. Mouth/Throat: Comments: Semi moist mucous membranes Eyes: Extraocular Movements: Extraocular movements intact. Conjunctiva/sclera: Conjunctivae normal. Comments: glasses Cardiovascular: Rate and Rhythm: Normal rate. Rhythm irregular. Heart sounds: Normal heart sounds. Pulmonary: Effort: Pulmonary effort is normal. No respiratory distress. Breath sounds: Normal breath sounds. Comments: + intermittent dry cough Abdominal: General: Bowel sounds are normal. There is no distension. Palpations: Abdomen is soft. Tenderness: There is no abdominal tenderness. Musculoskeletal: Right lower leg: Edema (trace sock lines present) present. Left lower leg: Edema (trace sock lines) present. Skin: General: Skin is warm and dry. Neurological: General: No focal deficit present. Mental Status: He is alert and oriented to person, place, and time. Psychiatric: Behavior: Behavior normal. Comments: Flat affect Assessment and Plan: CAD/UA/NSTEMI S/p CABG x 3 (RICHMOND-LAD, SVG-OM, SVG-PDA) with Dr. Alex 04/20/22 Pre-Op EF 65% - Continue Plavix 75 mg daily x 1 year per ACS protocol, Atorvastatin 40 mg, Metoprolol 50 mg po TID with hold parameters - HH Diet - Ambulate as tolerated - Post-thorax vest, no driving x 30 days, no pushing/pulling/lifting more than 10 # x 30 days Anticipated Post-Op Respiratory Insufficiency -Currently saturating 93% on RA - Encourage IS, cough, and deep breathing; reiterated IS use and instructions - Encouraged slow short frequent ambulation Atrial Fibrillation with RVR - HR irregular on exam, rate controlled - Cardizem IR increased from 60 mg TID to QID on 04/30, then transitioned to cardizem CD 240 mg once daily at discharge, continue - Continue metoprolol 50 mg oral TID with hold parameters - Continue Eliquis 5mg BID Volume Overload - Admission weight 98.3 kg, discharge weight 90.1 kg, current weight 92.2 kg - Small bilateral pleural effusions on prior CXR, diminished bases - Formal read pending on CXR from today - Increase lasix to 40 mg daily x 3 days with 20 mEq K x 3 days then resume lasix 20 mg dialy and K 10 mEq daily. - repeat CXR later this week/early next week - Will ask home nurse to check BMP tomorrow -Continue daily weights/ fluid restrictions Hyponatremia -Stable sodium at 135 at discharge -Likely in relation to volume overload - Continue to monitor response to diuresis - BMP tomorrow Urinary Retention - Voiding ok, continue flomax Post Op Pain - Controlled with ERAS, continue: - 1000mg Tylenol TID - 400mg Magnesium daily - Lidocaine patches History of HTN Home regimen prior to surgery: Lisinopril 40mg daily, Amlodipine 5mg daily, HCTZ 25mg daily - Metoprolol 50mg TID with hold parameters - Lisinopril 10 mg daily - Patient's daughter from out of town concerned lisinopril causing/contributing to acute cough; Not likely as pt was taking prior to surgery at higher dose without cough; likely cough related to recent covid infection and pleural effusions - continue to monitor closely as on cardizem as above for better HR control HLD - Continue Atorvastatin Hypothyroidism - Continue Levothyroxine Trigeminal Neuralgia - Continue Carbamazepine Incidental Findings on Chest CT Incidental findings including: subpleural nodularities (LLL 1cm and RLL 0.7cm), right hepatic dome cystic lesion with punctate calcification, and T1 sclerotic focus 0.8 cm and left 10th rib 0.7 cm sclerotic focus - Patient should follow up with flag signaler, will need follow-up CT chest as well. Patient also should follow with hepatology/GI for liver findings and may need bone scan/ oncology follow up for rib/ T1 findings -Continue aspirin 81 mg daily, metoprolol, statin -Continue ambulation, IS use and VNS at home -Return in 3 to 4 weeks with chest x-ray prior -Continue 10 pound weight limit and no driving until further notice at 1 month follow-up -Follow-up with Cardiology: 06/12/22 -Cardiac rehab order placed today, to start in 3 to 4 weeks - Encouraged pt to schedule with pulm Dr. Tasha Mitchell [phone] - Encouraged pt to schedule with GI Dr. Fabricio Rogel [phone] - encouraged pt to schedule with heme/onc Dr. Radha Moya [phone] PCP follow up appointment: to be scheduled by family Electronically signed by Teresita Bernal APRN.NASH on May 11, 2022, 1530 documented in this encounter [facility] 05-08-2022 Miscellaneous Notes Heleliazar, SOC completed today and medications reviewed - SEVERE medication interaction between the following medications: apixaban and carBAMazepine, clopidogrel and apixaban. Please review and notify if pt OK to continue as prescribed. Thank you for your time, Alicia STORY, RN documented in this encounter [facility] 05-08-2022 Miscellaneous Notes SITUATION: Fdc Abbreviated SOC IV 2nd visit completed today. daughter also present during today's visit. patient and caregiver reports the following: Allergies--reviewed Medications--reviewed current medications Falls--None DME-Reviewed and added to chart BACKGROUND: Discharged/Referral from acute care hospital on 04/30 following treatment for CABGx3 c/b COVID. Pertinent referral information: HTN, obesity ASSESSMENT: SN greeted at door by caregiver. Upon entrance patient found in recliner Patient appears in no acute distress. Patient lives at home with daughter who is visiting from [place] until 05/26. Home environment: clean, uncluttered and has pets: 2 dogs. Patient/CG concerns verbalized today: CG reports pt finished Potassium Chloride - SN reviewed Rx and found pt to be taking in addition to extended doses of Lasix. Daughter to brain picker today Vitals (see flow sheet for details): stable SN findings today: Pt sitting in recliner chair, in good spirits, cooperative for visit. He lives in 1 story home with who is currently in rehab facility. Daughter is here care for patient and managing all aspects of care. Pt using rollator for ambulation. He has unsteady gait and needs reminders to slow down during ambulation. He denies pain this visit or in last 24hrs. Weight stable, has been weighing self daily. Compliant with low sodium diet - he reports poor appetite, SN encouraged small frequent meals. Daughter providing protein shakes and encouraging those. Pt needs SBA-MIN assistx1 for transfers, ambulation and completing ADLs d/t weakness, fatigue and low endurance. SN reminded pt of safety precautions. Incisions are BURAK, healing well and without s/s infection. Plan of care reviewed with pt/daughter who are agreeable. See intervention summary for education details and skills performed. Plan of care and visit frequency established with patient and caregiver and plan of care agreed upon. Patient demonstrated a need for further skilled SN services for chronic disease management & education, medication education, wound/skin care and safety RECOMMENDATION: Visit Frequency: 2w2, 1w3, 2 PRN Need for additional services: Patient agreeable to PT and OT referrals. Patient declined N/A referrals. Additional concerns to be followed up on: NONE Next visit to focus on (be specific): C/p check, review medications, review weight/BP log, has appetite improved? documented in this encounter [facility] 05-07-2022 Miscellaneous Notes SITUATION: daughter present during today's visit. patient reports the following since the last homecare visit: medications/allergies--no changes, no fall. patient reports that he is getting stronger but I'm still getting out of breath . BACKGROUND: Diagnoses (reason for Home Care): [facility] on 04/16/2022-04/30/2022. Primary Diagnoses (reason for Home Care): Encounter for surgical aftercare following surgery on the circulatory system Presence of aortocoronary bypass gr aftNon-ST elevation (NSTEMI) myocardial infarction Atherosclerotic heart disease of koi coronary artery without angina pectoris Essential (primary) hypertension COVID-19 PROCEDURE(S): 04/20/2022 Coronary Artery Bypass Graft ACTIVE PROBLEM LIST Essential Hypertension, Benign Hyperlipidemia Trigemina l Nerve Disorder Tremor Meningioma (Hcc) Nstemi (Non-St Elevated Myocardial Infarction) (Hcc) See intervention summary for intervention/education details. Weight Bearing or Surgical Precautions: sternal precautions ASSESSMENT: Patient evaluated by [facility] Homecare physical therapy. Reviewed and explained homecare services. Plan of care, goals, and visit frequency developed, reviewed, and agreed upon with patient and/or caregiver. Patient Goal: get my strength back Patient will benefit from continued physical therapy to address the following deficits: strength, balance, gait, endurance and aerobic capacity. Current Discharge Plan:outpatient cardiac rehab. Anticipate discharge by 05/23/22 RECOMMENDATION: Next visit to focus on cardiac ambulation program, gait See intervention summary for intervention/education details. documented in this encounter [facility] 05-06-2022 Miscellaneous Notes SITUATION: Fdc Abbreviated SOC IV1st visit completed today. daughter also present during today's visit. patient and caregiver reports the following: Allergies--reviewed Medications--full medication reconciliation completed Falls--None BACKGROUND: Discharged/Referral from [facility] on 04/30 following treatment for NSTEMI, CABG, COVID. ASSESSMENT: SN greeted at door by caregiver. Upon entrance patient found in recliner Patient appears in no acute distress. Patient lives at home with who is currently in rehab facility. Home environment: uncluttered and has pets: 2 boxers. SOC booklet reviewed & completed with patient and consent obtained for Home Care services. Patient/CG concerns verbalized today: Pt feeling discouraged and wishes he would have more improvement by now. SN provided support and reassurance and reminded pt that he had a few complications along the way. He is doing well and will continue to need encouragement. Vitals (see flow sheet for details): stable SN findings today: Pt sitting in recliner lift chair upon SN arrival, he is hard of hearing. Pleasant and cooperative for visit. Daughter present and helping with all aspects of care at this time. Pt lives in ranch style home and ambulates with rollator. Daughter has medications very neatly organized and manages them for pt. Pt has automatic BP cuff to monitor BP/HR prior to taking metoprolol and cardiazem. Daughter aware or parameters. No edema noted. Dyspnea on exertion. Pt using inhaler PRN, but denies it helping much. SN observed pt using inhaler to ensure it was being done correctly, no concerns noted. LS with rhonchi in upper lobes, clear otherwise. Pt has moist and occasional productive cough (clear, thin mucous). Incision - chest and LLE healing well - closed with glue and without s/s infection. Plan of care reviewed with pt/daughter who are agreeable. See intervention summary for education details and skills performed. Additional concerns to be followed up on: NONE documented in this encounter [facility] 05-05-2022 Note HNO ID: [id number] Author: Catracho Jc RN Service: ? Author Type: Registered Nurse Type: Progress Notes Filed: 05/05/2022 1:10 PM Note Text: TRANSITIONAL CARE MANAGEMENT (TCM) COMMUNITY MONITORING PROGRAM Provider Action/FYI: TCM Chart review Name removed from care team tab. Pt has outside PCP Updated pcp to Dr Shira Brady, confirmed pcp in care everywhere Outside pcp, cannot schedule for outside pcp SUMMARY: Pt discharged from [facility] on 04/30/22. Admitted for: NSTEMI Contact made with patient: No Outreach ended Catracho Jc RN [facility] 05-05-2022 Note Patient Outreach (AM BC) OLGA LINDSEY ([id number]) 1940 M Date Time Provider Department 05/05/22 CATRACHO JCSarthak During your visit today, we recorded the following information about you: Catracho Jc RN 05/05/2022 1:10 PM Signed TRANSITIONAL CARE MANAGEMENT (TCM) COMMUNITY MONITORING PROGRAM Provider Action/FYI: TCM Chart review Name removed from care team tab. Pt has outside PCP Updated pcp to Dr Shira Brady, confirmed pcp in care everywhere Outside pcp, cannot schedule for outside pcp SUMMARY: Pt discharged from [facility] on 04/30/22. Admitted for: NSTEMI Contact made with patient: No Outreach ended Catracho Jc RN Allergies As of Date: 05/05/2022 (No Known Allergies) Date Reviewed: 04/30/2022 Reviewed by: Lissette Bay APRN.CLIENT BUSINESS MANAGER - Fully Assessed Reason for Visit: Transition Of Care [4074] Cmt: TCM follow up [facility] Discharge 04/30/22 Prescriptions as of 05/05/2022 - acetaminophen (TYLENOL) 500 mg tablet Take 2 tablets by mouth every 6 hours as needed for pain. - atorvastatin (LIPITOR) 40 mg tablet Take 1 tablet by mouth daily at bedtime. - lisinopril (ZESTRIL) 10 mg tablet Take 1 tablet by mouth once daily. - tamsulosin (FLOMAX) 0.4 mg Take 1 capsule by mouth once daily. - metoprolol tartrate, short acting, (LOPRESSOR) 50 mg tablet Take 1 tablet by mouth every 8 hours. Hold for heart rate <60, SBP <100 - dilTIAZem CD (CARDIZEM CD, CARTIA XT) 240 mg 24 hr capsule Take 1 capsule by mouth once daily. Hold for heart rate <60, SBP <100 - apixaban (ELIQUIS) 5 mg tab(s) Take 1 tablet by mouth twice daily. - furosemide (LASIX) 20 mg tablet Take 1 tablet by mouth once daily for 7 days. - magnesium oxide (MAG-OX) 400 mg (241.3 mg magnesium) tablet Take 1 tablet by mouth once daily. - clopidogrel (PLAVIX) 75 mg tablet Take 1 tablet by mouth once daily. - potassium chloride ER (KLOR-CON M10) 10 mEq tablet Take 1 tablet by mouth once daily for 7 days. - lidocaine (SALONPAS) 4 % patch Apply 1 Patch as directed once daily for 14 days. Cut in half lengthwise and place on either side of sternal incision. Leave on for 12 hours then remove after 12 hours and replace with new one if needed for pain - levothyroxine 25 mcg cap Take 25 mcg by mouth daily before breakfast. - carBAMazepine (TEGRETOL) 200 mg tablet Take 1 tablet by mouth three times daily. Problem List As Of Date 05/05/2022 Noted Resolved Essential hypertension, benign [I10] 08/30/2013 Hyperlipidemia [E78.5] 08/30/2013 Closed nondisplaced fracture of styloid process*03/25/2015 10/24/2015 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] Tremor [R25.1] 10/24/2015 Meningioma (HCC) [D32.9] 06/02/2018 NSTEMI (non-ST elevated myocardial infarction) *04/17/2022 04/30/2022 Obesity, Class I, BMI 30-34.9 [E66.9] 04/17/2022 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] 04/30/2022 Encounter Status:Closed by CATRACHO JC on 05/05/22 [facility] 05-05-2022 History of Presen t illness Narrative TRANSITIONAL CARE MANAGEMENT (TCM) COMMUNITY MONITORING PROGRAM Provider Action/FYI: TCM Chart review Name removed from care team tab. Pt has outside PCP Updated pcp to Dr Shira Brady, confirmed pcp in care everywhere Outside pcp, cannot schedule for outside pcp SUMMARY: Pt discharged from [facility] on 04/30/22. Admitted for: NSTEMI Contact made with patient: No Outreach ended Catracho Jc RN documented in this encounter [facility] 05-04-2022 Note HNO ID: [id number] Author: Savannah Krishnan Population Health Navigator Service: ? Author Type: ? Type: Progress Notes Filed: 05/04/2022 10:51 AM Note Text: POPULATION HEALTH NAVIGATION OUTREACH Action/FYI Updated pcp to Dr Shira Brady, confirmed pcp in care everywhere Outside pcp, cannot schedule for outside pcp TCM eligible through 05/14 discharged from [facility] on 04/30/22. Admitted for: NSTEMI/covid Patient Identified by Name and : NO Outreach Outcome/Action PCP field updated Did you use a PCP flex slot to schedule this appointment? N/A Reason for Outreach Community Monitoring Pool Payer: Payor: MEDICARE / Plan: MEDICARE A AND B / Product Type: Medicare / Care Gap Reviewed:: Follow-up appointment Reminder: Reminder note to check Health Maintenance for items below Health Maintenance items due: DTAP,TDAP,TD(1 - Tdap) Never done SHINGRIX VACCINE(1 of 2) Never done PNEUMOCOCCAL: 65+(1 - PCV) Never done COVID-19 VACCINE(2 - Booster for Radha series) due on 01/01/2021 INFLUENZA(1) due on 10/09/2021 ADVANCE DIRECTIVE DISCUSSION Never done DEPRESSION ASSESSMENT Never done Navigation Signature: Savannah Krishnan Population Health Navigator May 04, 2022 10:45 AM [facility] 05-03-2022 Miscellaneous Notes Unmade Visit today- patient back in hospital documented in this encounter [facility] 05-01-2022 Note HNO ID: [id number] Author: Daniel Dawson RN Service: ? Author Type: Registered Nurse Type: Progress Notes Filed: 05/01/2022 4:59 PM Note Text: TRANSITIONAL CARE MANAGEMENT (TCM) COMMUNITY MONITORING PROGRAM Provider Action/FYI: Tcm eligible through 05/14 Pt. Reports PCP is Dr. Shira Brady, he is unsure if this is a Clinic Provider, TCM was not able to locate any previous appts. With this provider. Navigation Team Please assist with scheduling TCM Hospital discharge follow up. TCM eligible through 05/14. Thank you Follow-up with Dr. Rogel or another coach professional athletes/shipsmith regarding right hepatic cystic liver lesion in 4 weeks Follow-up with Dr. Alan Kiser or another oncologist regarding sclerotic lesion in T1 and left 10th rib in 4 weeks Follow-up with Dr. Kent or flag signaler regarding follow-up on bilateral lower lobe lung nodules in 4 weeks Cards in 6 weeks Vascular 05/11 Daughter aware of above appts. Needed and reports she will call Wednesday to schedule. [facility] - provided contact information to daughter, has not heard from home care but will follow up tomorrow Heart health diet/Fluid restriction 2 liters per day.- pt. Following Call parameters:- reviewed with patient and daughter Please call if the following occurred: - Heart rate less than 60 or greater than 120 - Blood pressure less than 100/50 or greater than 150/90 - Weight gain greater than 4 lbs in 24 hours - temperature grater than 99.5 or wound drainage Device(s):- pt. And daughter report following orders as instructed Please wear the post thorax vest when you are up and about. Ok to release it when seated or laying down. Vest wear for 1 month during activities. Ok to wash it if gets soiled. Incentive spirometer (breathing tool): use it 10 times every hour when you are awake to optimize your breathing and prevent pneumonia. Compression stocking: please put them on 1st thing in the morning and take off at night and keep legs elevated when seated or laying down. Spoke with patient and daughter Kaitlyn whom is staying with patient at home until she returns to [place]. Pt. Reports doing well. BM, brown, formed, today. Denies problems urinating. Completing adl's independently, utilizes walker, reports not over doing it but ambulating often. Denies fever, chills. Incisions- denies increased redness, swelling, pain, drainage, separation. BP within last hour 100/57 HR 77 Has scale- has weighed self however will start tomorrow morning. Pt. Denies new or worsening symptoms or concerns since leaving the hospital. fall yesterday evening after pt. Returned home - currently admitted into ICU at [facility]- support provided COVID-19 Caregiver Adult Monitoring COVID-19 Monitoring 05/01/2022 Are you feeling short of breath today? Yes Have you been able to perform your activities of daily living today without shortness of breath? Yes Are you having a cough today? Yes Has it been worse over the past 24 hours? No Are you vomiting? No Are you experiencing diarrhea? No Highest Temperature - last 24 hours? (Caregiver Entered) (No Data) Do you have a pulse oximeter / Oxygen Monitor at home No Temperature (Patient Entered) (None) SpO2 (Patient Entered) (None) We would like to make sure you have what you need so that your basic needs are met- including your personal safety, food, housing and medications? Would you like to speak with a social work steamblaster to help give you support for any of these needs? No It can be normal to feel anxious or down during a time like this. Would you like to talk to a mental health professional about how you have been feeling? No SUMMARY: Pt discharged from [facility] on 04/30/22. Admitted for: NSTEMI/covid Contact made with patient: Yes Hi my name is Daniel Dawson RN and I am calling from the [facility] on behalf of your PCP, Jose Ramon Welch MD I understand you were recently in the hospital so I am calling to check in with you to ensure you are feeling well now that you're home. May I ask you a few questions related to your hospital stay and well-being? Yes Contact with patient post discharge, spoke to patient. Patient identified by name and . Do you feel your health is BETTER, WORSE, or the SAME since leaving the hospital? Better ACTION TAKEN: Patient indicated symptoms are better or same, no action required. Continue outreach. MEDICATIONS: Many patients have questions or concerns about their medications once they are home. Do you have any questions about taking your medications or which medication you should be on? No Do you need any medication refills at this time, including any of the medications you might take only when needed? No ACTION TAKEN: No action required For RNs or Pharmacy completing outreach ONLY, was a medication review completed? Yes SOCIAL: We would like to make sure you have what yo (more content not included)... [facility] 05-01-2022 History of Presen t illness Narrative Images from the original note were not included. TRANSITIONAL CARE MANAGEMENT (TCM) COMMUNITY MONITORING PROGRAM Provider Action/FYI: Tcm eligible through 05/14 Pt. Reports PCP is Dr. Shira Brady, he is unsure if this is a Clinic Provider, TCM was not able to locate any previous appts. With this provider. Navigation Team Please assist with scheduling TCM Hospital discharge follow up. TCM eligible through 05/14. Thank you Follow-up with Dr. Rogel or another coach professional athletes/shipsmith regarding right hepatic cystic liver lesion in 4 weeks Follow-up with Dr. Alan Kiser or another oncologist regarding sclerotic lesion in T1 and left 10th rib in 4 weeks Follow-up with Dr. Kent or flag signaler regarding follow-up on bilateral lower lobe lung nodules in 4 weeks Cards in 6 weeks Vascular 05/11 Daughter aware of above appts. Needed and reports she will call Wednesday to schedule. [facility] - provided contact information to daughter, has not heard from home care but will follow up tomorrow Heart health diet/Fluid restriction 2 liters per day.- pt. Following Call parameters:- reviewed with patient and daughter Please call if the following occurred: - Heart rate less than 60 or greater than 120 - Blood pressure less than 100/50 or greater than 150/90 - Weight gain greater than 4 lbs in 24 hours - temperature grater than 99.5 or wound drainage Device(s):- pt. And daughter report following orders as instructed Please wear the post thorax vest when you are up and about. Ok to release it when seated or laying down. Vest wear for 1 month during activities. Ok to wash it if gets soiled. Incentive spirometer (breathing tool): use it 10 times every hour when you are awake to optimize your breathing and prevent pneumonia. Compression stocking: please put them on 1st thing in the morning and take off at night and keep legs elevated when seated or laying down. Spoke with patient and daughter Kaitlyn whom is staying with patient at home until she returns to [place]. Pt. Reports doing well. JASMIN, rey, formed, today. Denies problems urinating. Completing adl's independently, utilizes walker, reports not over doing it but ambulating often. Denies fever, chills. Incisions- denies increased redness, swelling, pain, drainage, separation. BP within last hour 100/57 HR 77 Has scale- has weighed self however will start tomorrow morning. Pt. Denies new or worsening symptoms or concerns since leaving the hospital. fall yesterday evening after pt. Returned home - currently admitted into ICU at [facility]- support provided COVID-19 Caregiver Adult Monitoring COVID-19 Monitoring 05/01/2022 Are you feeling short of breath today? Yes Have you been able to perform your activities of daily living today without shortness of breath? Yes Are you having a cough today? Yes Has it been worse over the past 24 hours? No Are you vomiting? No Are you experiencing diarrhea? No Highest Temperature - last 24 hours? (Caregiver Entered) (No Data) Do you have a pulse oximeter / Oxygen Monitor at home No Temperature (Patient Entered) (None) SpO2 (Patient Entered) (None) We would like to make sure you have what you need so that your basic needs are met- including your personal safety, food, housing and medications? Would you like to speak with a social work steamblaster to help give you support for any of these needs? No It can be normal to feel anxious or down during a time like this. Would you like to talk to a mental health professional about how you have been feeling? No SUMMARY: Pt discharged from [facility] on 04/30/22. Admitted for: NSTEMI/covid Contact made with patient: Yes Hi my name is Daniel Dawson RN and I am calling from the [facility] on behalf of your PCP, Jose Ramon Welch MD I understand you were recently in the hospital so I am calling to check in with you to ensure you are feeling well now that you're home. May I ask you a few questions related to your hospital stay and well-being? Yes Contact with patient post discharge, spoke to patient. Patient identified by name and . Do you feel your health is BETTER, WORSE, or the SAME since leaving the hospital? Better ACTION TAKEN: Patient indicated symptoms are better or same, no action required. Continue outreach. MEDICATIONS: Many patients have questions or concerns about their medications once they are home. Do you have any questions about taking your medications or which medication you should be on? No Do you need any medication refills at this time, including any of the medications you might take only when needed? No ACTION TAKEN: No action required For RNs or Pharmacy completing outreach ONLY, was a medication review completed? Yes SOCIAL: We would like to make sure you have what you need so that your basics needs are met - including your personal safety, food, housing and medications. Would you like to speak with a social work steamblaster to help give you support for any of these needs? No It can be normal to feel anxious or down during a time like this. Would you like to talk to a mental health professional about how you have been feeling? No ACTION TAKEN: No action taken DISCHARGE INTRUCTIONS: Your discharge instructions / After Visit Summary (AVS) are important in guiding you through the recovery process. Do you have any questions related to your discharge instructions? No Do you have all the necessary equipment and supplies at home? Yes ACTION TAKEN: No action required I would like to help you schedule a hospital follow-up virtual or telephone visit with your PCP. This is a great way for you to connect with your provider to ensure you have safely transitioned home. If you are agreeable, I will send your request to a signaling project engineer who will contact and assist you with that appointment. This will give you an opportunity to ask any questions or address any concerns you may have with your PCP. Inform the patient that if they have any questions or concerns prior to that appointment, to call their PCP's office right away. ACTION TAKEN: Patient desires an appointment - Routed to COMMUNITY MONITORING PSS POOL [[id number]] for scheduling telehealth visit (telephonic, virtual visit, or Facetime) within 7 days of discharge with PCP care team. Indicate hospital follow-up appointment needed within 7 days in Provider/FYI box. End Outreach. Your doctor would like us to remind you of the recommendations regarding the coronavirus (Covid19) outbreak: Avoid public places as much as possible. Avoid close contact (within 6 feet) with others you don t live with, especially if they are sick. Stay home if you are sick. Wash your hands regularly for at least 20 seconds with soap and water. Wear a cloth mask in public places to help reduce community spread. Do not go to your Doctor s office unless instructed to do so. For any non-emergency symptoms, call your Doctor s office to get instructions on how to manage (we might recommend a telephone or virtual visit). For emergency symptoms, proceed to Emergency Department as usual but inform them of cough and fever symptoms KEVIN if present (or call on the way if possible). MERLINE Education Ordered -: No TCM Home Visit Referral Source of Stratification: [facility] Admission Status: Discharged Readmission Risk Score: 26 BARRY Score: 14 Patient meets program referral criteria: No Patient does not qualify for High Risk TCM Home Visit program due to: Discharged home, does not meet program criteria Catracho Jc RN May 01, 2022 8:47 AM TRANSITIONAL CARE MANAGEMENT (TCM) COMMUNITY MONITORING PROGRAM Provider Action/FYI: Outreach attempt #1 Unable to reach patient. Left message. Will try again later Pt does not have PCP scheduled at this time. Appointments for Next 60 Days Date Time Provider Location Dept Phone 05/03/2022 4:00 AM HOME CARE, NURSING [facility] [phone] 05/04/2022 6:30 AM HOME CARE, OT [facility] [phone] 05/04/2022 6:30 AM HOME CARE, PT [facility] [phone] 05/11/2022 2:00 PM TERESITA BERNAL JESSICA [phone] SUMMARY: Pt discharged from [facility] on 04/30/22. Admitted for: NSTEMI HPI: This is a 82 year old male with a PMHx of HTN, Trigeminal Neuralgia, resting tremor and HLD who presents as a transfer from [facility]. He originally presented to [place] 04/15 due to worsening chest pain. Initial EKG showed NSR without ST segment changes, per my interpretation. HS Trop elevated initially at 2134 at peaked at 3350 per record review. Given HS Trop elevations, prompted patient to undergo Cardiac Cath, which showed MV CAD. Patient diagnosed with NSTEMI, started on Heparin gtt, and transferred to [facility] for CABG evaluation. Patient notes he was experiencing exertional chest pain and exertional dyspnea for about two weeks prior to presenting at [facility]; noting more intense pain/ increased frequency over the last week. Chest pain described as feeling like his chest is caving in and rated 9.5/10 at worse. He noted the most bothersome part for him though was the shortness of breath, stating that he felt like he could not get air at some points. This would go away, per patient, after about 10 minutes at rest. At baseline, patient states he lives a relatively active lifestyle. [place] with horses and dogs. He notes being able to perform ADLs without difficulty, including no issues walking to his mailbox prior to the symptom onset ~2 weeks ago. Now, patient states he is having difficulty even taking the dogs out due to symptoms. Patient underwent CABG x3 (RICHMOND-LAD, SVG-OM, SVG-PDA) with Dr. Alex on 04/20/2022. He tolerated the procedure well and there were no immediate complications. He was extubated on time per early extubation protocol. Patient went into Afib around 9PM on the evening of POD#1, which has been intermittent since. PT was subsequently started on Eliquis. Pt did experience urinary retention and required reinsertion of justin catheter, but on POD#5 passed voiding trial and is able to void on his own. Metoprolol has been increased over POD 6/7 for A fib 90-110. POD7 was a fib rates 20-130 so metoprolol increased to [address] PE negative for pulmonary embolism. Small pericardial effusion. A fib rvr 160s around 1900 so cardizem gtt was started as well. POD 8 transitioned to oral cardizem, continued on betablocker. Encouraged ambulation/showering. POD 9 Rapid response team for non cardiac chest pain - no ischemic changes to EKG, trop 71 (297 prior). Ambulated in [place] several times yesterday and showered, tolerated well. POD#10: Pt seen on 4200 this AM. Tele reviewed a fib 80-90s, no arrhythmias appreciated. VSS, SBP 106-128, 96% on RA. Denies any current chest pain, palp, sob, lh or dizziness. + nonproductive moist cough at times, improving each day. Reports loose BM last hs, none today. Voiding without difficulty. No abdominal pain. Bowel regimen held x 3 days. Tolerating po well. No n/v. Reports ambulated in hallway 3 times yesterday. Denies peripheral paresthesias. Relays this am that he spoke with his daughter, Elizabeth, who had planned to take him and she woke up feeling unwell with headache/chills/sore throat and congestion. She tested and is covid negative thus far. He is agreeable at this point to ESR if still a candidate given the challenging caregiver situation. Pt subsequently tested positive for Covid and thus will be going home with his with [facility] Contact made with patient: No - next outreach attempt will be on next business day Outreach ended Catracho Jc RN documented in this encounter [facility] 05-01-2022 Note Patient Outreach (AM [facility] OLGA LINDSEY ([id number]) 1940 M Date Time Provider Department 05/01/22 CATRACHO JC During your visit today, we recorded the following information about you: Catracho Jc RN 05/01/2022 4:59 PM Signed TCM Home Visit Referral Source of Stratification: [facility] Admission Status: Discharged Readmission Risk Score: 26 BARRY Score: 14 Patient meets program referral criteria: No Patient does not qualify for High Risk TCM Home Visit program due to: Discharged home, does not meet program criteria Catracho Jc RN May 01, 2022 8:47 AM TRANSITIONAL CARE MANAGEMENT (TCM) COMMUNITY MONITORING PROGRAM Provider Action/FYI: Outreach attempt #1 Unable to reach patient. Left message. Will try again later Pt does not have PCP scheduled at this time. Appointments for Next 60 Days Date Time Provider Location Dept Phone 05/03/2022 4:00 AM HOME CARE, NURSING [facility] [phone] 05/04/2022 6:30 AM HOME CARE, OT [facility] [phone] 05/04/2022 6:30 [facility] [phone] 05/11/2022 2:00 PM TERESITA BERNAL [facility] [phone] SUMMARY: Pt discharged from [facility] on 04/30/22. Admitted for: NSTEMI HPI: This is a 82 year old male with a PMHx of HTN, Trigeminal Neuralgia, resting tremor and HLD who presents as a transfer from [facility]. He originally presented to [place] 04/15 due to worsening chest pain. Initial EKG showed NSR without ST segment changes, per my interpretation. HS Trop elevated initially at 2134 at peaked at 3350 per record review. Given HS Trop elevations, prompted patient to undergo Cardiac Cath, which showed MV CAD. Patient diagnosed with NSTEMI, started on Heparin gtt, and transferred to [facility] for CABG evaluation. Patient notes he was experiencing exertional chest pain and exertional dyspnea for about two weeks prior to presenting at [facility]; noting more intense pain/ increased frequency over the last week. Chest pain described as feeling like his chest is caving in and rated 9.5/10 at worse. He noted the most bothersome part for him though was the shortness of breath, stating that he felt like he could not get air at some points. This would go away, per patient, after about 10 minutes at rest. At baseline, patient states he lives a relatively active lifestyle. He lives on a large property with horses and dogs. He notes being able to perform ADLs without difficulty, including no issues walking to his mailbox prior to the symptom onset ~2 weeks ago. Now, patient states he is having difficulty even taking the dogs out due to symptoms. Patient underwent CABG x3 (RICHMOND-LAD, SVG-OM, SVG-PDA) with Dr. Alex on 04/20/2022. He tolerated the procedure well and there were no immediate complications. He was extubated on time per early extubation protocol. Patient went into Afib around 9PM on the evening of POD#1, which has been intermittent since. PT was subsequently started on Eliquis. Pt did experience urinary retention and required reinsertion of justin catheter, but on POD#5 passed voiding trial and is able to void on his own. Metoprolol has been increased over POD 6/7 for A fib 90-110. POD7 was a fib rates 20-130 so metoprolol increased to [address] PE negative for pulmonary embolism. Small pericardial effusion. A fib rvr 160s around 1900 so cardizem gtt was started as well. POD 8 transitioned to oral cardizem, continued on betablocker. Encouraged ambulation/showering. POD 9 Rapid response team for non cardiac chest pain - no ischemic changes to EKG, trop 71 (297 prior). Ambulated in [place] several times yesterday and showered, tolerated well. POD#10: Pt seen on 4200 this AM. Tele reviewed a fib 80-90s, no arrhythmias appreciated. VSS, SBP 106-128, 96% on RA. Denies any current chest pain, palp, sob, lh or dizziness. + nonproductive moist cough at times, improving each day. Reports loose BM last hs, none today. Voiding without difficulty. No abdominal pain. Bowel regimen held x 3 days. Tolerating po well. No n/v. Reports ambulated in hallway 3 times yesterday. Denies peripheral paresthesias. Relays this am that he spoke with his daughter, Elizabeth, who had planned to take him and she woke up feeling unwell with headache/chills/sore throat and congestion. She tested and is covid negative thus far. He is agreeable at this point to ESR if still a candidate given the challenging caregiver situation. Pt subsequently tested positive for Covid and thus will be going home with his with [facility] Contact made with patient: No - next outreach attempt will be on next day Outreach ended RAN Dover RN 05/01/2022 4:59 PM Signed TRANSITIONAL CARE MANAGEMENT (TCM) COMMUNITY MONITORING PROGRAM Provi (more content not included)... [facility] 05-01-2022 Note HNO ID: [id number] Author: Catracho Jc RN Service: ? Author Type: Registered Nurse Type: Progress Notes Filed: 05/01/2022 4:59 PM Note Text: TCM Home Visit Referral Source of Stratification: TCM [facility] Hospital Admission Status: Discharged Readmission Risk Score: 26 BARRY Score: 14 Patient meets program referral criteria: No Patient does not qualify for High Risk TCM Home Visit program due to: Discharged home, does not meet program criteria Catracho Jc RN May 01, 2022 8:47 AM TRANSITIONAL CARE MANAGEMENT (TCM) COMMUNITY MONITORING PROGRAM Provider Action/FYI: Outreach attempt #1 Unable to reach patient. Left message. Will try again later Pt does not have PCP scheduled at this time. Appointments for Next 60 Days Date Time Provider Location Dept Phone 05/03/2022 4:00 AM HOME CARE, NURSING [facility] [phone] 05/04/2022 6:30 AM HOME CARE, OT [facility] [phone] 05/04/2022 6:30 [facility] [phone] 05/11/2022 2:00 PM TERESITA BERNAL [facility] [phone] SUMMARY: Pt discharged from [facility] on 04/30/22. Admitted for: NSTEMI HPI: This is a 82 year old male with a PMHx of HTN, Trigeminal Neuralgia, resting tremor and HLD who presents as a transfer from [facility]. He originally presented to [place] 04/15 due to worsening chest pain. Initial EKG showed NSR without ST segment changes, per my interpretation. HS Trop elevated initially at 2134 at peaked at 3350 per record review. Given HS Trop elevations, prompted patient to undergo Cardiac Cath, which showed MV CAD. Patient diagnosed with NSTEMI, started on Heparin gtt, and transferred to [facility] for CABG evaluation. Patient notes he was experiencing exertional chest pain and exertional dyspnea for about two weeks prior to presenting at [facility]; noting more intense pain/ increased frequency over the last week. Chest pain described as feeling like his chest is caving in and rated 9.5/10 at worse. He noted the most bothersome part for him though was the shortness of breath, stating that he felt like he could not get air at some points. This would go away, per patient, after about 10 minutes at rest. At baseline, patient states he lives a relatively active lifestyle. He lives on a large property with horses and dogs. He notes being able to perform ADLs without difficulty, including no issues walking to his mailbox prior to the symptom onset ~2 weeks ago. Now, patient states he is having difficulty even taking the dogs out due to symptoms. Patient underwent CABG x3 (RICHMOND-LAD, SVG-OM, SVG-PDA) with Dr. Alex on 04/20/2022. He tolerated the procedure well and there were no immediate complications. He was extubated on time per early extubation protocol. Patient went into Afib around 9PM on the evening of POD#1, which has been intermittent since. PT was subsequently started on Eliquis. Pt did experience urinary retention and required reinsertion of justin catheter, but on POD#5 passed voiding trial and is able to void on his own. Metoprolol has been increased over POD 6/7 for A fib 90-110. POD7 was a fib rates 20-130 so metoprolol increased to [address] PE negative for pulmonary embolism. Small pericardial effusion. A fib rvr 160s around 1900 so cardizem gtt was started as well. POD 8 transitioned to oral cardizem, continued on betablocker. Encouraged ambulation/showering. POD 9 Rapid response team for non cardiac chest pain - no ischemic changes to EKG, trop 71 (297 prior). Ambulated in [place] several times yesterday and showered, tolerated well. POD#10: Pt seen on 4200 this AM. Tele reviewed a fib 80-90s, no arrhythmias appreciated. VSS, SBP 106-128, 96% on RA. Denies any current chest pain, palp, sob, lh or dizziness. + nonproductive moist cough at times, improving each day. Reports loose BM last hs, none today. Voiding without difficulty. No abdominal pain. Bowel regimen held x 3 days. Tolerating po well. No n/v. Reports ambulated in hallway 3 times yesterday. Denies peripheral paresthesias. Relays this am that he spoke with his daughter, Elizabeth, who had planned to take him and she woke up feeling unwell with headache/chills/sore throat and congestion. She tested and is covid negative thus far. He is agreeable at this point to ESR if still a candidate given the challenging caregiver situation. Pt subsequently tested positive for Covid and thus will be going home with his with [facility] Contact made with patient: No - next outreach attempt will be on next day Outreach ended Catracho Jc RN [facility] 04-30-2022 Miscellaneous Notes Welcome Home Call: a. Date and Time: 4:17 PM 04/30/2022 b. Contact name/relationship: Kimmie/spouse c. Have you been active with any Home Care company in the last 60 days(such as help with bathing, filling medications, checking your blood pressure) ? No. d. Was patient given Flu shot this Season (After Oct,): No: Patient refused e. [facility] will be providing your care, are you agreeable to starting these services? yes (yes or no) f. Do you have any upcoming appointments in the next few days, or restrictions to your schedule? no g. Caregiver: Yes - Caregiver name Family ; spoke with Kimmie to confirm 04/30/22 h. Confirmed Visited Location and preferred #: yes Please keep our your medications both over the counter and prescribed out for the home care to review, your hospital discharge instructions and write down any questions you might have. In order to maintain a safe environment for our caregivers, [facility] requires any animals or weapons present in the home be located in a secured location. Our clinicians will call you the night before or the morning of the appointment. Their # may come up restricted but they'll leave a VM for you. In case you have any questions or concerns in the meantime, our # is [phone], option 5 Thank you for your time and have a great day. Alma Delia Wren documented in this encounter [facility] 04-30-2022 Miscellaneous Notes Spoke with Teresita Bernal,NASH & Dr. Alex will follow Olga for home care. Melina @ [facility] notified. Alma Delia Eisenberg LPN Melina from [facility] called asking if Dr. Alex would be the provider following for home health care orders. Melina can be reached @ [phone]. Alma Delia Eisenberg LPN documented in this encounter [facility] 04-30-2022 Note HNO ID: [id number] Author: Magi Pulliam APRN.NASH Service: Cardiovascular Surgery Author Type: Nurse Practitioner Type: Progress Notes Filed: 04/30/2022 11:15 AM Note Text: CARDIOTHORACIC SURGERY POSTOP PROGRESS NOTE SERVICE DATE: 04/30/2022 SERVICE TIME: 0930 Subjective S/P SURGERY: Procedure(s) (LRB): CABG x3 (RICHMOND-LAD, SVG-OM, SVG-PDA) DATE OF SURGERY: 04/20/2022 POSTOP DAY #10 LOS: 14 HPI: This is a 82 year old male with a PMHx of HTN, Trigeminal Neuralgia, resting tremor and HLD who presents as a transfer from [facility]. He originally presented to [place] 04/15 due to worsening chest pain. Initial EKG showed NSR without ST segment changes, per my interpretation. HS Trop elevated initially at 2134 at peaked at 3350 per record review. Given HS Trop elevations, prompted patient to undergo Cardiac Cath, which showed MV CAD. Patient diagnosed with NSTEMI, started on Heparin gtt, and transferred to [facility] for CABG evaluation. Patient notes he was experiencing exertional chest pain and exertional dyspnea for about two weeks prior to presenting at [facility]; noting more intense pain/ increased frequency over the last week. Chest pain described as feeling like his chest is caving in and rated 9.5/10 at worse. He noted the most bothersome part for him though was the shortness of breath, stating that he felt like he could not get air at some points. This would go away, per patient, after about 10 minutes at rest. At baseline, patient states he lives a relatively active lifestyle. [place] large property with horses and dogs. He notes being able to perform ADLs without difficulty, including no issues walking to his mailbox prior to the symptom onset ~2 weeks ago. Now, patient states he is having difficulty even taking the dogs out due to symptoms. INTERVAL EVENTS / PERTINENT ROS: Patient underwent CABG x3 (RICHMOND-LAD, SVG-OM, SVG-PDA) with Dr. Alex on 04/20/2022. He tolerated the procedure well and there were no immediate complications. He was extubated on time per early extubation protocol. Patient went into Afib around 9PM on the evening of POD#1, which has been intermittent since. PT was subsequently started on Eliquis. Pt did experience urinary retention and required reinsertion of justin catheter, but on POD#5 passed voiding trial and is able to void on his own. Metoprolol has been increased over POD 6/7 for A fib 90-110. POD7 was a fib rve 120-130 so metoprolol increased to 75 mg oral TID. A fib rvr 160s around 1900 so cardizem gtt was started as well. POD 8 transitioned to oral cardizem, continued on betablocker. Encouraged ambulation/showering. POD 9 SOFTWARE INTERN for non cardiac chest pain - no ischemic changes to EKG, trop 71 (297 prior). Ambulated in [place] several times yesterday and showered, tolerated well. 04/30 POD#10: Pt seen on 4200 this AM. NAEO. Tele reviewed a fib 80-90s, no arrhythmias appreciated. VSS, SBP 106-128, 96% on RA. Denies any current chest pain, palp, sob, lh or dizziness. + nonproductive moist cough at times, improving each day. Reports loose BM last hs, none today. Voiding without difficulty. No abdominal pain. Bowel regimen held x 3 days. Tolerating po well. No n/v. Reports ambulated in hallway 3 times yesterday. Denies peripheral paresthesias. Relays this am that he spoke with his daughter, Elizabeth, who had planned to take him and she woke up feeling unwell with headache/chills/sore throat and congestion. She tested and is covid negative thus far. He is agreeable at this point to ESR if still a candidate given the challenging caregiver situation. Labs/tele/ CXR reviewed. CT PE 04/28 negative for PE. + small pericardial effusion, small bilateral pleural effusions Objective Admission Weight: 98.3 kg (216 lb 12.8 oz) BP 107/59 Pulse 70 Temp 36.7 ?C (98.1 ?F) (Oral) Resp 18 Ht 177.8 cm (5' 10 ) Wt 90.1 kg (198 lb 10.2 oz) SpO2 94% BMI 28.50 kg/m? Body surface area is 2.11 meters squared. Min/Max/Average Temperature AND Blood Pressure: Temp (24hrs), Av.7 ?C (98.1 ?F), Min:36.5 ?C (97.7 ?F), Max:36.9 ?C (98.4 ?F) Systolic (24hrs), Av , Min:105 , Max:170 Diastolic (24hrs), Av, Min:66, Max:86 No intake or output data in the 24 hours ending 04/30/22 1034 TELEMETRY: a fib 80-90 PHYSICAL EXAM: General Appearance: sitting up in the chair, awake and alert, appears to be in no acute distress Skin: Mid-sternal incision site clean, dry, and intact without surrounding erythema or purulence. Stable sternotomy. SVG site clean, dry, and intact without surrounding erythema. Bilateral purple vascular birthmarks to bilateral legs. Previous CT site incisions well approximated and without s/sx of infection. Left BURAK Lungs: slightly diminished bilateral bases. no wheezing, rales, rhonchi appreciated. Normal respiratory effort. Heart: Irregular rate and irregular rhythm, no murmur noted. Periphe (more content not included)... [facility] 04-29-2022 Note HNO ID: [id number] Author: Magi Pulliam APRN.CLIENT BUSINESS MANAGER Service: Cardiovascular Surgery Author Type: Nurse Practitioner Type: Progress Notes Filed: 04/29/2022 10:09 AM Note Text: CARDIOTHORACIC SURGERY POSTOP PROGRESS NOTE SERVICE DATE: 04/29/2022 SERVICE TIME: 0950AM Subjective S/P SURGERY: Procedure(s) (LRB): CABG x3 (RICHMOND-LAD, SVG-OM, SVG-PDA) DATE OF SURGERY: 04/20/2022 POSTOP DAY #9 LOS: 13 HPI: This is a 82 year old male with a PMHx of HTN, Trigeminal Neuralgia, resting tremor and HLD who presents as a transfer from [facility]. He originally presented to [place] 04/15 due to worsening chest pain. Initial EKG showed NSR without ST segment changes, per my interpretation. HS Trop elevated initially at 2134 at peaked at 3350 per record review. Given HS Trop elevations, prompted patient to undergo Cardiac Cath, which showed MV CAD. Patient diagnosed with NSTEMI, started on Heparin gtt, and transferred to [facility] for CABG evaluation. Patient notes he was experiencing exertional chest pain and exertional dyspnea for about two weeks prior to presenting at [facility]; noting more intense pain/ increased frequency over the last week. Chest pain described as feeling like his chest is caving in and rated 9.5/10 at worse. He noted the most bothersome part for him though was the shortness of breath, stating that he felt like he could not get air at some points. This would go away, per patient, after about 10 minutes at rest. At baseline, patient states he lives a relatively active lifestyle. [place] with horses and dogs. He notes being able to perform ADLs without difficulty, including no issues walking to his mailbox prior to the symptom onset ~2 weeks ago. Now, patient states he is having difficulty even taking the dogs out due to symptoms. INTERVAL EVENTS / PERTINENT ROS: Patient underwent CABG x3 (RICHMOND-LAD, SVG-OM, SVG-PDA) with Dr. Alex on 04/20/2022. He tolerated the procedure well and there were no immediate complications. He was extubated on time per early extubation protocol. Patient went into Afib around 9PM on the evening of POD#1, which has been intermittent since. PT was subsequently started on Eliquis. Pt did experience urinary retention and required reinsertion of justin catheter, but on POD#5 passed voiding trial and is able to void on his own. Metoprolol has been increased over POD 6/7 for A fib 90-110. POD7 was a fib rve 120-130 so metoprolol increased to 75 mg oral TID. A fib rvr 160s around 1900 so cardizem gtt was started as well. POD 8 transitioned to oral cardizem, continued on betablocker. Encouraged ambulation/showering. 04/29 POD#9: Pt seen on 4200 this AM. Events from last evening SOFTWARE INTERN reviewed (non cardiac CP while in bathroom, no acute ischemic changes on EKG, trop 71 (297 prior). States he had some left chest pain/should/arm pain while trying to clean himself after BM. VSS were stable and his afib was in 120s at that time. These symptoms were transient, and resolved with rest. No recurrence overnight. Currently lying in bed, NAD. VSS. SBP 107-154. HR 63-113, currently tele a fib 95. Denies cp, palp, lightheadedness or dizziness. Pt reports occasional productive cough. Ambulated in hallway yesterday, but had to stop and sit in chair and return to room due to fatigue and HR a fib 130s, was advised by staff at that time to slow down his walking, and rest periodically. Did not shower yesterday. No n/v. Diarrhea resolved. No abdominal pain. Bowel regimen held x 2 days. Tolerating po well. Urinating without difficulty. Denies peripheral paresthesias. Nurse at bedside and they are going to shower him after the exam. Reiterates that his plan for DC is still home with his daughter, Elizabeth, who is prepping his house to accommodate him at [place]. Labs/tele/ CXR reviewed. CT PE 04/28 negative for PE. + small pericardial effusion, small bilateral pleural effusions Objective Admission Weight: 98.3 kg (216 lb 12.8 oz) BP 127/85 Pulse 103 Temp 37.4 ?C (99.3 ?F) (Oral) Resp 20 Ht 177.8 cm (5' 10 ) Wt 98.4 kg (217 lb) SpO2 95% BMI 31.14 kg/m? Body surface area is 2.2 meters squared. Min/Max/Average Temperature AND Blood Pressure: Temp (24hrs), Av.9 ?C (98.5 ?F), Min:36.5 ?C (97.7 ?F), Max:37.4 ?C (99.3 ?F) Systolic (24hrs), Av , Min:105 , Max:170 Diastolic (24hrs), Av, Min:66, Max:86 No intake or output data in the 24 hours ending 04/29/22 0951 TELEMETRY: atrial fibrillation with rates 90s PHYSICAL EXAM: General Appearance: Resting in bed, appears to be in no acute distress Skin: Mid-sternal incision site clean, dry, and intact without surrounding erythema or purulence. Stable sternotomy. SVG site clean, dry, and intact without surrounding erythema. Bilateral purple vascular birthmarks to bilateral legs. Previous CT site incisions well approximated and without s/sx of infection. Left (more content not included)... [facility] 04-28-2022 Note HNO ID: [id number] Author: Pepito Barragan APRN.CLIENT BUSINESS MANAGER Service: Critical Care Author Type: Nurse Practitioner Type: Progress Notes Filed: 04/28/2022 9:25 PM Note Text: EMERGENCY RESPONSE TEAM Rapid Response Date of MET Page: April 28, 2022 Time of MET Page: [id number] Requesting Provider: [id number] Staff SUMMARY DIAGNOSIS, ASSESSMENT and RECOMMENDATIONS SOFTWARE INTERN called for chest pain. Patient stated that he was in the bathroom attempting to clean himself up after a bowel movement and thinks that he over-exerted himself with his efforts. He called for staff assistance and was assisted back to bed. Upon returning to bed, he reported a sudden sharp shooting pain in the left side of his chest and arm. He did not have shortness of breath or chest pressure. The pain quickly subsided, and a rapid response was called. Patient was found to be hemodynamically stable on room air, no distress, denying chest pain, shortness of breath, palpitations, lightheadedness or dizziness at this time. An EKG demonstrated rate-controlled AF without acute ischemic changes. HSTnT 71 (297 11 days ago). Of note, a CT Chest PE Protocol done yesterday 04/27 demonstrated a new non-displaced anterior left first rib fracture. He is s/p CABG x 3 on 04/20. Chest pain Non-cardiac chest pain, do not suspect ACS Continue analgesics as ordered per primary service CTS to see Status: Stable PLAN, DISPOSITION and OUTCOME Responded to therapy, remains on current unit under care of: Dr. Alex History of Present Illness: This is a 82 year old male who was admitted to the hospital for NSTEMI and is s/p CABG x 3 on 04/20. PRIMARY REASON FOR CALL Cardiac: Patient complaint of Chest Pain PAST MEDICAL / SURGICAL HISTORY PAST MEDICAL HISTORY Diagnosis Date HTN (hypertension) 08/12/2013 [place] [facility] Tremor Trigeminal neuralgia , PAST SURGICAL HISTORY Procedure Laterality Date PAST SURGICAL HISTORY OF chain saw laceration PAST SURGICAL HISTORY OF stereotactic radiosurgery for left sided trigeminal neuralgia and meningioma PROSTATECTOMY, SIMPLE, BENIGN 08/18/13 Dr. Vasquez TONSILLECTOMY PRIMARY/SECONDARY Tonsillectomy , Active Hospital Problems Diagnosis NSTEMI (non-ST elevated myocardial infarction) (HCC) Obesity, Class I, BMI 30-34.9 MEDICATIONS Current Facility-Administered Medications Medication Dose Route Frequency metoprolol tartrate (short acting) 50 mg tab(s) (LOPRESSOR) 50 mg ORAL q 8 H dilTIAZem 60 mg tab(s) (CARDIZEM) 60 mg ORAL q 8 H iv contrast (radiology procedure) INTRAVENOUS DIRECTED PRN melatonin 3 mg tab(s) 3 mg ORAL AT BEDTIME PRN clopidogrel 75 mg tab(s) (PLAVIX) 75 mg ORAL DAILY apixaban 5 mg tab(s) (ELIQUIS) 5 mg ORAL BID tamsulosin 0.4 mg cap(s) (FLOMAX) 0.4 mg ORAL DAILY haloperidol lactate 2 mg short-acting injection (HALDOL) 2 mg INTRAVENOUS q [address] 40 mg tab(s) (PROTONIX) 40 mg ORAL DAILY (6 AM) aluminum-magnesium hydroxide-simethicone 200-200-20 mg/5 mL 30 mL 30 mL ORAL q 6 H PRN albuterol 2.5 mg /3 mL (0.083 %) 2.5 mg (PROVENTIL) 2.5 mg INHALATION q 2 H PRN atorvastatin 40 mg tab(s) (LIPITOR) 40 mg ORAL AT BEDTIME acetaminophen 1,000 mg tab(s) (TYLENOL) 1,000 mg ORAL QID lidocaine 4 % 1 Patch (SALONPAS) 1 Patch TRANSDERMAL DAILY And lidocaine patch - REMOVE OTHER AT BEDTIME And lidocaine - VERIFY PATCH OTHER q 8 H magnesium oxide 400 mg tab(s) (MAG-OX) 400 mg ORAL DAILY traMADol 50-100 mg tab(s) (ULTRAM) 50-100 mg ORAL q 6 H PRN carBAMazepine 200 mg tab(s) (TEGretol) 200 mg ORAL TID levothyroxine 25 mcg tab(s) (SYNTHROID) 25 mcg ORAL DAILY (6 AM) and ibuprofen (ADVIL) 200 mg tablet, Take 200 mg by mouth every 8 hours as needed for pain., Disp: , Rfl: potassium chloride (K-TAB) 10 mEq tablet, Take 10 mEq by mouth once daily., Disp: , Rfl: levothyroxine 25 mcg cap, Take 25 mcg by mouth daily before breakfast., Disp: , Rfl: lisinopril (ZESTRIL, PRINIVIL) 40 mg tablet, Take 1 tablet by mouth once daily., Disp: 90 tablet, Rfl: 3 amLODIPine (NORVASC) 5 mg tablet, Take 1 tablet by mouth once daily., Disp: 90 tablet, Rfl: 3 lovastatin (MEVACOR) 20 mg tablet, Take 1 tablet by mouth daily at bedtime., Disp: 90 tablet, Rfl: 3 hydroCHLOROthiazide (HYDRODIURIL, ESIDRIX) 25 mg tablet, Take 1 tablet by mouth once daily., Disp: 90 tablet, Rfl: 3 carBAMazepine (TEGRETOL) 200 mg tablet, Take 1 tablet by mouth three times daily., Disp: 270 tablet, Rfl: 3 ALLERGIES ALLERGIES No Known Allergies PERTINENT PHYSICAL EXAM and INITIAL ASSESSMENT (For vital signs prior and during MET call, see nursing documentation) Pertinent Vital Signs at Time of MET Call: HDS on RA Appearance: Alert, No distress, and Cooperative Airway Patent: Yes Breathing Evaluation: unlabored Breathing Adequate: Yes Circulation Evaluation: Skin warm, dry and Pulses Full, bounding and Irregualr Circulation Adequate: Yes Neurologic Evaluation: Alert (more content not included)... [facility] 04-28-2022 Note HNO ID: [id number] Author: Magi Pulliam APRN.CLIENT BUSINESS MANAGER Service: Cardiovascular Surgery Author Type: Nurse Practitioner Type: Progress Notes Filed: 04/29/2022 9:52 AM Note Text: CARDIOTHORACIC SURGERY POSTOP PROGRESS NOTE SERVICE DATE: 04/28/2022 SERVICE TIME: 1030 AM Subjective S/P SURGERY: Procedure(s) (LRB): CABG x3 (RICHMOND-LAD, SVG-OM, SVG-PDA) DATE OF SURGERY: 04/20/2022 POSTOP DAY #8 LOS: 12 HPI: This is a 82 year old male with a PMHx of HTN, Trigeminal Neuralgia, resting tremor and HLD who presents as a transfer from [facility]. He originally presented to [place] 04/15 due to worsening chest pain. Initial EKG showed NSR without ST segment changes, per my interpretation. HS Trop elevated initially at 2134 at peaked at 3350 per record review. Given HS Trop elevations, prompted patient to undergo Cardiac Cath, which showed MV CAD. Patient diagnosed with NSTEMI, started on Heparin gtt, and transferred to [facility] for CABG evaluation. Patient notes he was experiencing exertional chest pain and exertional dyspnea for about two weeks prior to presenting at [facility]; noting more intense pain/ increased frequency over the last week. Chest pain described as feeling like his chest is caving in and rated 9.5/10 at worse. He noted the most bothersome part for him though was the shortness of breath, stating that he felt like he could not get air at some points. This would go away, per patient, after about 10 minutes at rest. At baseline, patient states he lives a relatively active lifestyle. He lives on a large property with horses and dogs. He notes being able to perform ADLs without difficulty, including no issues walking to his mailbox prior to the symptom onset ~2 weeks ago. Now, patient states he is having difficulty even taking the dogs out due to symptoms. INTERVAL EVENTS / PERTINENT ROS: Patient underwent CABG x3 (RICHMOND-LAD, SVG-OM, SVG-PDA) with Dr. Alex on 04/20/2022. He tolerated the procedure well and there were no immediate complications. He was extubated on time per early extubation protocol. Patient went into Afib around 9PM on the evening of POD#1, which has been intermittent since. PT was subsequently started on Eliquis. Pt did experience urinary retention and required reinsertion of justin catheter, but on POD#5 passed voiding trial and is able to void on his own. Metoprolol has been increased over POD 6/7 for A fib 90-110. POD7 was a fib rve 120-130 so metoprolol increased to 75 mg oral TID. A fib rvr 160s around 1900 so cardizem gtt was started as well 04/28 POD#8: Pt seen on 4200 this AM. Pt lying in bed, NAD, reports he had a great night's sleep . Denies cp, palp, lightheadedness or dizziness. VSS, SBPs 103-146, HR 90s a fib on tele. Was 60-70s on spot checks. Cardiazem gtt at 5mg/ hour. . Pt reports occasional productive cough. Has ambulated up to BR without issue, but not into halls since arrival to floor. No n/v/. Reports soft loose BMs, denies abdominal pain. Bowel regimen held x 2 days. Tolerating po well. Urinating without difficulty. Denies peripheral paresthesias. Requests to ambulate more this am and shower, apparently he was not able to do so yesterday. Reiterates that his plan for DC is still home with his daughter, Elizabeth, who is prepping his house to accommodate him at [place]. Labs/tele/ CXR reviewed. CT PE 04/28 negative for PE. + small pericardial effusion, small bilateral pleural effusions Objective Admission Weight: 98.3 kg (216 lb 12.8 oz) BP 115/54 Pulse 95 Temp 36.5 ?C (97.7 ?F) (Oral) Resp 18 Ht 177.8 cm (5' 10 ) Wt 98.1 kg (216 lb 4.3 oz) SpO2 95% BMI 31.03 kg/m? Body surface area is 2.2 meters squared. Min/Max/Average Temperature AND Blood Pressure: Temp (24hrs), Av.9 ?C (98.4 ?F), Min:36.5 ?C (97.7 ?F), Max:37.7 ?C (99.9 ?F) Systolic (24hrs), Av , Min:105 , Max:170 Diastolic (24hrs), Av, Min:66, Max:86 No intake or output data in the 24 hours ending 04/28/22 1122 TELEMETRY: atrial fibrillation with rates 90s PHYSICAL EXAM: General Appearance: Resting in bed, appears to be in no acute distress Skin: Mid-sternal incision site clean, dry, and intact without surrounding erythema or purulence. Stable sternotomy. SVG site clean, dry, and intact without surrounding erythema. Bilateral port birthmarks to bilateral legs. Previous CT site incisions well approximated and without s/sx of infection. Left RODBUSTER Lungs: Scant rhonchi in L lung cantu, otherwise no wheezes. Normal respiratory effort. Heart: Irregular rate and irregular rhythm, no murmur noted. Peripheral Vascular/Arteries: Radial pulses 2+ bilaterally; DP pulses 1+ bilaterally Abdomen: Soft and non-tender, round. Bowel sounds present. Neurologic/Psychiatric: Alert and oriented to person, place, and time. Sales Communications Manager strength 5/5 bilaterally. No gross focal neuro deficits. Extremities: Trace- 1+ non-pitting edema of BLE (more content not included)... [facility] 04-27-2022 Note HNO ID: [id number] Author: Magi Pulliam APRN.CLIENT BUSINESS MANAGER Service: Cardiovascular Surgery Author Type: Nurse Practitioner Type: Progress Notes Filed: 04/27/2022 2:29 PM Note Text: CARDIOTHORACIC SURGERY POSTOP PROGRESS NOTE SERVICE DATE: 04/27/2022 SERVICE TIME: 1030 AM Subjective S/P SURGERY: Procedure(s) (LRB): CABG x3 (RICHMOND-LAD, SVG-OM, SVG-PDA) DATE OF SURGERY: 04/20/2022 POSTOP DAY #7 LOS: 11 HPI: This is a 82 year old male with a PMHx of HTN, Trigeminal Neuralgia, resting tremor (on propranolol) and HLD who presents as a transfer from [facility]. He originally presented to [place] 04/15 due to worsening chest pain. Initial EKG showed NSR without ST segment changes, per my interpretation. HS Trop elevated initially at 2134 at peaked at 3350 per record review. Given HS Trop elevations, prompted patient to undergo Cardiac Cath, which showed MV CAD. Patient diagnosed with NSTEMI, started on Heparin gtt, and transferred to [facility] for CABG evaluation. Patient notes he was experiencing exertional chest pain and exertional dyspnea for about two weeks prior to presenting at [facility]; noting more intense pain/ increased frequency over the last week. Chest pain described as feeling like his chest is caving in and rated 9.5/10 at worse. He noted the most bothersome part for him though was the shortness of breath, stating that he felt like he could not get air at some points. This would go away, per patient, after about 10 minutes at rest. At baseline, patient states he lives a relatively active lifestyle. He lives on a large property with horses and dogs. He notes being able to perform ADLs without difficulty, including no issues walking to his mailbox prior to the symptom onset ~2 weeks ago. Now, patient states he is having difficulty even taking the dogs out due to symptoms. INTERVAL EVENTS / PERTINENT ROS: Patient underwent CABG x3 (RICHMOND-LAD, SVG-OM, SVG-PDA) with Dr. Alex on 04/20/2022. He tolerated the procedure well and there were no immediate complications. He was extubated on time per early extubation protocol. Patient went into Afib around 9PM on the evening of POD#1, which has been intermittent since. PT was subsequently started on Eliquis. Pt did experience urinary retention and required reinsertion of justin catheter, but on POD#5 passed voiding trial and is able to void on his own. 04/27 POD#7: Pt seen on 4200 this AM. Upon arrival to room, RN at bedside an noted HR afib 120-130s. Pt lying in bed, NAD, some conversational dyspnea noted. Denies cp, palp, lightheadedness or dizziness. Tele review with A fib 90-110 over night. Just recently in 130s. Last BB dose 0530, requested RN to give 1200 dose of metoprolol 50 mg now. Pt reports occasional productive cough. Has ambulated up to BR without issue, but not into halls since arrival to floor. No n/v/. Reports soft loose BMs, denies abdominal pain. Bowel regimen held this am. Tolerating po well. Urinating without difficulty. Denies peripheral paresthesias. Requests to ambulate more this am and shower. Also states that his daughter is prepping his house to accommodate him at [place]. Reports hes been using his IS as instructed Labs/tele/ CXR from 04/25 reviewed. Bedside BP recheck during exam 162/100 Objective Admission Weight: 98.3 kg (216 lb 12.8 oz) BP 162/100 Pulse (!) 122 Temp 36.8 ?C (98.2 ?F) (Oral) Resp 20 Ht 177.8 cm (5' 10 ) Wt 98.1 kg (216 lb 4.3 oz) SpO2 98% BMI 31.03 kg/m? Body surface area is 2.2 meters squared. Min/Max/Average Temperature AND Blood Pressure: Temp (24hrs), Av.7 ?C (98 ?F), Min:36.5 ?C (97.7 ?F), Max:36.8 ?C (98.2 ?F) Systolic (24hrs), Av , Min:105 , Max:170 Diastolic (24hrs), Av, Min:66, Max:86 No intake or output data in the 24 hours ending 04/27/22 1053 TELEMETRY: atrial fibrillation with rates in 130s PHYSICAL EXAM: General Appearance: Resting in bed, appears to be in no acute distress Skin: Mid-sternal incision site clean, dry, and intact without surrounding erythema or purulence. Stable sternotomy. SVG site clean, dry, and intact without surrounding erythema. Previous CT site gauze dressing CDI- removed. CT sites x 3 with steri strips intact, removed, incisions well approximated and without s/sx of infection. Left RODBUSTER Lungs: Scant rhonchi in L lung cantu, otherwise no wheezes. Normal respiratory effort. Heart: Irregular rate and irregular rhythm, no murmur noted. Peripheral Vascular/Arteries: Radial pulses 2+ bilaterally; DP pulses 1+ bilaterally Abdomen: Soft and non-tender, round. Bowel sounds present. Neurologic/Psychiatric: Alert and oriented to person, place, and time. Sales Communications Manager strength 5/5 bilaterally. No gross focal neuro deficits. Extremities: Trace- 1+ non-pitting edema of BLE Lines, Drains, and Airways Line Duration Peripheral 04/17/22 0658 Right Hand 20 Gauge 10 days Peripheral 04/17/22 Admission to Hosp (more content not included)... [facility] 04-26-2022 Note HNO ID: [id number] Author: Kimberly Isbell PA-C Service: Cardiovascular Surgery Author Type: Physician Fruit Picker Machine Operator Type: Progress Notes Filed: 04/26/2022 12:02 PM Note Text: CARDIOTHORACIC SURGERY POSTOP PROGRESS NOTE SERVICE DATE: 04/26/2022 SERVICE TIME: 11:42 AM Subjective S/P SURGERY: Procedure(s) (LRB): CABG x3 (RICHMOND-LAD, SVG-OM, SVG-PDA) DATE OF SURGERY: 04/20/2022 POSTOP DAY #6 LOS: 9 HPI: This is a 82 year old male with a PMHx of HTN, Trigeminal Neuralgia, and HLD who presents as a transfer from [facility]. He originally presented to [place] 04/15 due to worsening chest pain. Initial EKG showed NSR without ST segment changes, per my interpretation. HS Trop elevated initially at 2134 at peaked at 3350 per record review. Given HS Trop elevations, prompted patient to undergo Cardiac Cath, which showed MV CAD. Patient diagnosed with NSTEMI, started on Heparin gtt, and transferred to [facility] for CABG evaluation. Patient notes he was experiencing exertional chest pain and exertional dyspnea for about two weeks prior to presenting at [facility]; noting more intense pain/ increased frequency over the last week. Chest pain described as feeling like his chest is caving in and rated 9.5/10 at worse. He noted the most bothersome part for him though was the shortness of breath, stating that he felt like he could not get air at some points. This would go away, per patient, after about 10 minutes at rest. At baseline, patient states he lives a relatively active lifestyle. He lives on a large property with horses and dogs. He notes being able to perform ADLs without difficulty, including no issues walking to his mailbox prior to the symptom onset ~2 weeks ago. Now, patient states he is having difficulty even taking the dogs out due to symptoms. INTERVAL EVENTS / PERTINENT ROS: Patient underwent CABG x3 (RICHMOND-LAD, SVG-OM, SVG-PDA) with Dr. Alex on 04/20/2022. He tolerated the procedure well and there were no immediate complications. He was extubated on time per early extubation protocol. Patient went into Afib around 9PM on the evening of POD#1, which has been intermittent since. PT was subsequently started on Eliquis. Pt did experience urinary retention and required reinsertion of justin catheter, but on POD#5 passed voiding trial and is able to void on his own. 04/26 POD#6: Pt seen on 4200 this AM. Notified by RN a ~0750 HR in A fib was increasing to 130s when up to BR and was fluctuating up to ~120s overnight per tele review, SBP remained stable and pt asymptomatic other than feeling palpitations. Additional 12.5 mg metoprolol PO ordered and given. Pt remains HDS. Per tele review, pt in a fib with rates fluctuating between 90s-120s, now low 100s. Pt reports did feel my heart beating hard during episode when returning from the bathroom this AM. Pt denies pain and states some mild SOB when sitting down after walking, otherwise none at rest. Pt did void after removal of justin and void trial yesterday. Pt states having too many BMs and requesting to d/c stool softener. Pt up with PT yesterday with significant improvements with walker. Pt denies lightheadedness, dizziness, nausea, vomiting, or abdominal pain. Labs reviewed. Objective Admission Weight: 98.3 kg (216 lb 12.8 oz) BP 125/81 Pulse (!) 121 Temp 36.5 ?C (97.7 ?F) (Oral) Resp 18 Ht 177.8 cm (5' 10 ) Wt 99.5 kg (219 lb 6.4 oz) SpO2 96% BMI 31.48 kg/m? Body surface area is 2.22 meters squared. Min/Max/Average Temperature AND Blood Pressure: Temp (24hrs), Av.7 ?C (98 ?F), Min:36.5 ?C (97.7 ?F), Max:36.9 ?C (98.4 ?F) Systolic (24hrs), Av , Min:105 , Max:170 Diastolic (24hrs), Av, Min:66, Max:86 Intake/Output Summary (Last 24 hours) at 04/26/2022 1142 Last data filed at 04/25/2022 1712 Gross per 24 hour Intake -- Output 1400 ml Net -1400 ml TELEMETRY: atrial fibrillation with rates in 100s PHYSICAL EXAM: General Appearance: Resting in bed, appears to be in no acute distress Skin: Mid-sternal incision site clean, dry, and intact without surrounding erythema or purulence. Chest tubes sites with clean dressing. SVG site clean, dry, and intact without surrounding erythema Lungs: Scant rhonchi in L lung cantu, otherwise no wheezes. Normal respiratory effort. Heart: Irregular rate and irregular rhythm, no murmur noted. Peripheral Vascular/Arteries: Radial pulses 2+ bilaterally; DP pulses 1+ bilaterally Abdomen: Soft and non-tender, round. Bowel sounds present. Neurologic/Psychiatric: Alert and oriented to person, place, and time. Sales Communications Manager strength 5/5 bilaterally. No gross focal neuro deficits. Extremities: Trace- 1+ non-pitting edema of BLE Lines, Drains, and Airways Line Duration Peripheral 04/17/22 0658 Right Hand 20 Gauge 9 days Peripheral 04/17/22 Admission to Hospital Right Antecubital 20 Gauge 9 days DATA: Diagnostic tests reviewed for today (more content not included)... [facility] 04-25-2022 Note HNO ID: [id number] Author: Kimberly Isbell PA-C Service: Cardiovascular Surgery Author Type: Physician Fruit Picker Machine Operator Type: Progress Notes Filed: 04/25/2022 10:14 AM Note Text: CARDIOTHORACIC SURGERY POSTOP PROGRESS NOTE SERVICE DATE: 04/25/2022 SERVICE TIME: 9:37 AM Subjective S/P SURGERY: Procedure(s) (LRB): CABG x3 (RICHMOND-LAD, SVG-OM, SVG-PDA) DATE OF SURGERY: 04/20/2022 POSTOP DAY #5 LOS: 8 HPI: This is a 82 year old male with a PMHx of HTN, Trigeminal Neuralgia, and HLD who presents as a transfer from [facility]. He originally presented to [place] 04/15 due to worsening chest pain. Initial EKG showed NSR without ST segment changes, per my interpretation. HS Trop elevated initially at 2134 at peaked at 3350 per record review. Given HS Trop elevations, prompted patient to undergo Cardiac Cath, which showed MV CAD. Patient diagnosed with NSTEMI, started on Heparin gtt, and transferred to [facility] for CABG evaluation. Patient notes he was experiencing exertional chest pain and exertional dyspnea for about two weeks prior to presenting at [facility]; noting more intense pain/ increased frequency over the last week. Chest pain described as feeling like his chest is caving in and rated 9.5/10 at worse. He noted the most bothersome part for him though was the shortness of breath, stating that he felt like he could not get air at some points. This would go away, per patient, after about 10 minutes at rest. At baseline, patient states he lives a relatively active lifestyle. [place] with horses and dogs. He notes being able to perform ADLs without difficulty, including no issues walking to his mailbox prior to the symptom onset ~2 weeks ago. Now, patient states he is having difficulty even taking the dogs out due to symptoms. INTERVAL EVENTS / PERTINENT ROS: Patient underwent CABG x3 (RICHMOND-LAD, SVG-OM, SVG-PDA) with Dr. Alex on 04/20/2022. He tolerated the procedure well and there were no immediate complications. He was extubated on time per early extubation protocol. Patient went into Afib around 9PM on the evening of POD#1, which has been intermittent since. Pt did experience urinary retention and required reinsertion of justin catheter. 04/25 POD#5: Pt seen on 4200 this AM. Per RN pt did well overnight with no episodes of confusion or agitation. Pt remains hemodynamically stable and slightly hypertensive this AM with SBP in 160s. Per tele review pt in a fib with rates 90s-110s overnight and into this AM. Pt reports no mid sternal pain this AM. Pt admits some mild SOB after attempting to get up and reach the phone and found to have NC off. Good UOP to justin, andrea in color, + BM this AM. Per RN, max 2 assist for getting up/ambulation. Will attempt walks x 3 today. Pt AANDO x 3 this AM. Pt denies lightheadedness, dizziness, nausea, vomiting, abdominal pain, or new numbness/tingling to LLE. Labs and imaging reviewed. Objective Admission Weight: 98.3 kg (216 lb 12.8 oz) BP 165/80 Pulse 89 Temp 37.1 ?C (98.8 ?F) (Oral) Resp 17 Ht 177.8 cm (5' 10 ) Wt 99.5 kg (219 lb 6.4 oz) SpO2 96% BMI 31.48 kg/m? Body surface area is 2.22 meters squared. Min/Max/Average Temperature AND Blood Pressure: Temp (24hrs), Av.6 ?C (97.9 ?F), Min:36.1 ?C (97 ?F), Max:37.1 ?C (98.8 ?F) Systolic (24hrs), Av , Min:105 , Max:168 Diastolic (24hrs), Av, Min:56, Max:85 Intake/Output Summary (Last 24 hours) at 04/25/2022 0937 Last data filed at 04/24/2022 1549 Gross per 24 hour Intake 200 ml Output 1550 ml Net -1350 ml TELEMETRY: a fib with rates 90s-110s PHYSICAL EXAM: General Appearance: Laying in bed, slightly disheveled after attempting to get up, appears to be in no acute distress Skin: Mid-sternal incision site clean, dry, and intact without surrounding erythema or purulence. Chest tubes sites well-dressed and non-saturated s/p removal. SVG site clean, dry, and intact without surrounding erythema Lungs: Rhonchi in L lung cantu, otherwise no wheezes. Normal respiratory effort. Heart: Irregular rate and rhythm, no murmur noted. Peripheral Vascular/Arteries: Radial pulses 2+ bilaterally; DP pulses 1+ bilaterally Abdomen: Soft and non-tender, round. Bowel sounds present. Neurologic/Psychiatric: Alert and oriented person, place, and time. Sales Communications Manager strength 5/5 bilaterally. No gross focal neuro deficits Extremities: Trace- 1+ pitting edema of bilateral LE Lines, Drains, and Airways Line Duration Peripheral 04/17/22 0658 Right Hand 20 Gauge 8 days Peripheral 04/17/22 Admission to Hospital Right Antecubital 20 Gauge 8 days Drain Duration Indwelling Urinary Catheter 04/22/22 1300 Justin 16 Fr 2 days DATA: Diagnostic tests reviewed for today's visit: Significant Lab Results: See below Chest X-RAY: IMPRESSION: Interval removal of right internal jugular central venous catheter. Small bilateral pleural effusions (more content not included)... [facility] 04-24-2022 Note HNO ID: [id number] Author: Cherrie Mann PA-C Service: Cardiovascular Surgery Author Type: Physician Fruit Picker Machine Operator Type: Progress Notes Filed: 04/24/2022 9:24 AM Note Text: CARDIOTHORACIC SURGERY POSTOP PROGRESS NOTE SERVICE DATE: 04/24/2022 SERVICE TIME: 0800 Subjective S/P SURGERY: Procedure(s) (LRB): BYPASS GRAFT ARTERY CORONARY ON-PUMP SINGLE CORONARY ARTERIAL GRAFT (N/A) AND TWO VENOUS GRAFTS (N/A) ENDOSCOPIC HARVEST VEIN FOR CORONARY ARTERY BYPASS PROCEDURE (N/A) DATE OF SURGERY: 04/20/2022 POSTOP DAY #4 LOS: 7 HPI: This is a 82 year old male with a PMHx of HTN, Trigeminal Neuralgia, and HLD who presents as a transfer from [facility]. He originally presented to [place] 04/15 due to worsening chest pain. Initial EKG showed NSR without ST segment changes, per my interpretation. HS Trop elevated initially at 2134 at peaked at 3350 per record review. Given HS Trop elevations, prompted patient to undergo Cardiac Cath, which showed MV CAD. Patient diagnosed with NSTEMI, started on Heparin gtt, and transferred to [facility] for CABG evaluation. Patient notes he was experiencing exertional chest pain and exertional dyspnea for about two weeks prior to presenting at [facility]; noting more intense pain/ increased frequency over the last week. Chest pain described as feeling like his chest is caving in and rated 9.5/10 at worse. He noted the most bothersome part for him though was the shortness of breath, stating that he felt like he could not get air at some points. This would go away, per patient, after about 10 minutes at rest. At baseline, patient states he lives a relatively active lifestyle. He lives on a large property with horses and dogs. He notes being able to perform ADLs without difficulty, including no issues walking to his mailbox prior to the symptom onset ~2 weeks ago. Now, patient states he is having difficulty even taking the dogs out due to symptoms. INTERVAL EVENTS / PERTINENT ROS: Patient underwent CABG x3 (RICHMOND-LAD, SVG-OM, SVG-PDA) with Dr. Alex on 04/20/2022. He tolerated the procedure well and there were no immediate complications. He was extubated on time per early extubation protocol. Patient went into Afib around 9PM on the evening of POD#1, which has been intermittent since. 04/21: Patient seen and examined in CVICU. He is POD#4 today. He is hemodynamically stable on 2L O2 via NC. Patient did require additional use of Haldol overnight due to agitation/ hallucinations. Yesterday, patient was able to walk about 3/4 of the unit in the AM however RN reported patient being unsteady on his feet/ unable to complete his walk in the afternoon. RN reported his evening walk to be similar to his AM walk. The unsteadiness, per RN, may have been related to Morphine use. This AM patient is laying in bed. Telemetry is showing atrial fibrillation. He is apparently only tolerating an hour or so in the chair before being uncomfortable. Patient only reporting pain near his mid-sternal incision site. He denies any chest pain, shortness of breath, abdominal pain, nausea/vomiting, dizziness, or lower extremity pain bilaterally. Patient denies any bowel movement postoperatively, but he endorses flatus. All relevant labs and imaging were reviewed. Objective Admission Weight: 98.3 kg (216 lb 12.8 oz) BP 124/64 Pulse 94 Temp 36.4 ?C (97.5 ?F) Resp 19 Ht 177.8 cm (5' 10 ) Wt 103 kg (227 lb) SpO2 96% BMI 32.57 kg/m? Body surface area is 2.26 meters squared. Min/Max/Average Temperature AND Blood Pressure: Temp (24hrs), Av.4 ?C (97.5 ?F), Min:36 ?C (96.8 ?F), Max:36.6 ?C (97.9 ?F) Systolic (24hrs), Av , Min:97 , Max:144 Diastolic (24hrs), Av, Min:51, Max:129 Intake/Output Summary (Last 24 hours) at 04/24/2022 0739 Last data filed at 04/24/2022 0600 Gross per 24 hour Intake 400 ml Output 2250 ml Net -1850 ml TELEMETRY: atrial fibrillation PHYSICAL EXAM: General Appearance: Laying in bed comfortably, no distress. Skin: Mid-sternal incision site clean, dry, and intact without surrounding erythema or purulence. Chest tubes sites well-dressed and non-saturated s/p removal. EVH site clean, dry, and intact - some ecchymosis along tract that is non-tender to palpation Lungs: Rhonchi in lung cantu bilaterally, L > R. 2L O2 via NC. Heart: Irregular rate and rhythm Peripheral Vascular/Arteries: Radial pulses 2+ bilaterally; DP pulses 1+ bilaterally Abdomen: Slight distention still today; bowel sounds present. Non-tender to palpation throughout Neurologic/Psychiatric: Alert and oriented place, self, time, and situation. Sales Communications Manager strength 5/5 bilaterally. Facial movement symmetric. Extremities: Trace edema of bilateral LE Lines, Drains, and Airways Line Duration Peripheral 04/17/22 Admission to Hospital Right Antecubital 20 Gauge 7 days Peripheral 04/17/22 0658 Right Hand 20 Gauge 6 days Central Line Quadrupl (more content not included)... [facility] 04-23-2022 Note HNO ID: [id number] Author: Linette Gómez [facility] Service: Pharmacy Author Type: Pharmacist Type: Plan of Care Filed: 04/24/2022 4:13 PM Note Text: PHARMACY MEDICATION REVIEW Patient Name: Olga Lindsey : 1940 The following medications were updated within the [facility] medication list: Medications ADDED to [facility] medication list ibuprofen (ADVIL) 200 mg tablet Take 200 mg by mouth every 8 hours as needed for pain. Medications CHANGED on [facility] medication list Medications REMOVED from [facility] medication list TURMERIC ORAL Course of therapy completed Additional comments: Verified medication information with e-scripts/dispense report and chart review.Confirmed medications with family. Spouse stated patient not taking turmeric - removed from med list. Spouse stated patient taking ibuprofen - added to med list. Spouse stated patient taking Tegretol at 5 am, 11 am and 6 pm - added note with times to med list. Required follow up actions for nursing: None The below information represents the best possible medication history: Yes Medication history completed by: House Manager: Carina Mazariegos (Quality Review Specialist) Source of history: Family: Reliability of source: Appears reliable, clearly identified: Medication name, Medication dose, Medication route, and Medication frequency and Spoke with Spouse, Zabrina , Pharmacy records: e-scripts/dispense, and [facility] records Medication nonadherence identified: No barriers noted Reconciliation completed: Yes Completed by: JOSIAH All [facility] medications addressed by JOSIAH Patient interested in Bedside Delivery Services or using OP Pharmacy at discharge? No Preferred outpatient pharmacy: [id number] [place] [address] - [phone] [facility] [phone] [id number] [facility] Allergies: No Known Allergies Prior to Admission Medications Prescriptions Last Dose Informant Patient Reported? Taking? amLODIPine (NORVASC) 5 mg tablet No Yes Sig: Take 1 tablet by mouth once daily. carBAMazepine (TEGRETOL) 200 mg tablet No Yes Sig: Take 1 tablet by mouth three times daily. hydroCHLOROthiazide (HYDRODIURIL, ESIDRIX) 25 mg tablet No Yes Sig: Take 1 tablet by mouth once daily. ibuprofen (ADVIL) 200 mg tablet Yes Yes Sig: Take 200 mg by mouth every 8 hours as needed for pain. levothyroxine 25 mcg cap Yes Yes Sig: Take 25 mcg by mouth daily before breakfast. lisinopril (ZESTRIL, PRINIVIL) 40 mg tablet No Yes Sig: Take 1 tablet by mouth once daily. lovastatin (MEVACOR) 20 mg tablet No Yes Sig: Take 1 tablet by mouth daily at bedtime. potassium chloride (K-TAB) 10 mEq tablet Yes Yes Sig: Take 10 mEq by mouth once daily. Facility-Administered Medications: None Carina Mazariegos (Quality Review Specialist)[id number] 04/23/2022 [facility] 04-23-2022 Note HNO ID: [id number] Author: Davion Hayward MD Service: Critical Care Author Type: Physician Type: Progress Notes Filed: 04/23/2022 3:39 PM Note Text: [facility], [place], [facility] BY [facility] PH[facility] NOTE OF PERSONAL INVOLVEMENT IN CARE I have reviewed the progress note obtained and documented by the nurse practitioner and I personally participated in the muñoz components. I have discussed the case and management of the patient's care. The following comments revise or confirm relevant muñoz components of the note. No hiccups today. No SOB. SaO2 95-98% on 2l/min. Chest tubes out. BP 99/57 Pulse 86 Temp 36 ?C (96.8 ?F) Resp 12 Ht 177.8 cm (5' 10 ) Wt 103 kg (227 lb) SpO2 95% BMI 32.57 kg/m? 24 hour Intake AND Output: Intake/Output Summary (Last 24 hours) at 04/23/2022 1539 Last data filed at 04/23/2022 0800 Gross per 24 hour Intake 480 ml Output 3200 ml Net -2720 ml EXAM: HEENT: Poor dentition. No thrush. Mucous membranes pale and dry. Grade IV airway. NECK: No JVD or LAD. +Right IJV TLC. LUNGS: Clear AANDL. HEART: Irregularly irregular -- AFib on monitor. ABDOMEN: Soft and NT. ND. +BS. EXTREMITIES: No LE edema. 04/23 CXR: Lines, tubes, and devices: Status post removal of bilateral chest tubes. Right internal jugular central line with tip in the distal superior vena cava. Intact median sternotomy wires and sternal plate. Lungs and pleura: Small bilateral pleural effusions with patchy diminished areas of aeration at the lung bases most likely representing atelectasis. No pneumothorax. Cardiomediastinal silhouette: Stable. Other: None. 04/22 CXR: RESULT: Lines, tubes, and devices: Interval removal of mediastinal drain. A right internal jugular central venous catheter and bilateral chest tubes remain. Overlying cardiac monitoring leads and radiopaque tubing. Lungs and pleura: Low lung volumes with persistent bibasilar opacities, left worse than right. Mild elevated right hemidiaphragm. Cardiomediastinal silhouette: Stable cardiomediastinal silhouette. Other: Moderate air distended stomach. Median sternotomy cerclage wires and sternal stabilization plate. 04/21 CXR: RESULT: Lines, tubes, and devices: Endotracheal tube and enteric tube have been removed. Right internal jugular central line with tip near the caval atrial junction. Stable positioning of mediastinal drain. Stable positioning of bilateral chest tubes. manager monitoring leads. Lungs and pleura: Patchy diminished aeration at both lung bases. Probable small left effusion. No pneumothorax. Cardiomediastinal silhouette: Stable. Chest CT without contrast: 04/17/22: Comparison: Chest radiograph 04/15/2022 RESULT: Limitations: None. Lines, tubes, and devices: None. Lung parenchyma and airways: Mild apical predominant centrilobular emphysema. No consolidation. A 1.0 cm pleural-based nodularity in the posterior basal left lower lobe might represent an area of scarring (6, 95) a 0.7 cm nodule with similar characteristics is present in the posterior right lower lobe (6, 56) Punctate subpleural calcification in the posterior right lower lobe and small nodular appearance with punctate calcifications in the posterior right costophrenic angle, also possibly related to prior inflammation: There are no prior studies are available for comparison. Central airways are patent. Pleural space: No pleural effusion. No pleural thickening. Lower neck, lymph nodes, and mediastinum: The imaged thyroid gland is normal. No lymphadenopathy in the supraclavicular, axillary, mediastinal, or hilar regions. Heart, pericardium, and thoracic vessels: Moderate atherosclerotic calcifications of the distal aortic arch and in the descending aorta, only mild atherosclerotic calcifications at the origin of the neck vessels. The thoracic aorta and main pulmonary artery are normal in caliber. Mild cardiomegaly. Severe coronary artery atherosclerotic calcifications are noted, although the study is not optimized for coronary assessment. No pericardial effusion or thickening. Bones and soft tissues: No destructive bone lesion. Indeterminate 0.8 cm sclerotic focus is present in the posterior vertebral body of T1 (800 HU), the 0.7 cm sclerotic focus is present in the lateral arch of the left 10th rib, demonstrates attenuation suggestive of bone island (1000 HU) Upper abdomen: Small hiatal hernia. No acute abnormality in the imaged upper abdomen. A 2.6 cm cyst in the central segment 3 is smaller cystic lesions in the superior right hepatic lobe are present. There is a punctate calcification associated to one of the cystic lesions in the segment 8, nonspecific. Bedspread Cutter Hand (topogram) images: No additional findings. DATA: BLOOD GAS: Recent Labs 04/20/22 1431 04/20/22 1250 04/20/22 1210 04/20/22 1140 04/20/22 1114 04/20/22 1110 04/20/22 1052 04/20/22 0830 VPH -- - (more content not included)... [facility] 04-23-2022 Note HNO ID: [id number] Author: Cherrie Mann PA-C Service: Cardiovascular Surgery Author Type: Physician Fruit Picker Machine Operator Type: Progress Notes Filed: 04/23/2022 1:58 PM Note Text: CARDIOTHORACIC SURGERY POSTOP PROGRESS NOTE SERVICE DATE: 04/23/2022 SERVICE TIME: 0730 Subjective S/P SURGERY: Procedure(s) (LRB): BYPASS GRAFT ARTERY CORONARY ON-PUMP SINGLE CORONARY ARTERIAL GRAFT (N/A) BYPASS GRAFT ARTERY CORONARY ON-PUMP USING VENOUS GRAFT(S) AND ARTERIAL GRAFT(S); TWO VENOUS GRAFTS (N/A) DATE OF SURGERY: 04/20/2022 POSTOP DAY #3 LOS: 6 HPI: This is a 82 year old male with a PMHx of HTN, Trigeminal Neuralgia, and HLD who presents as a transfer from [facility]. He originally presented to [place] 04/15 due to worsening chest pain. Initial EKG showed NSR without ST segment changes, per my interpretation. HS Trop elevated initially at 2134 at peaked at 3350 per record review. Given HS Trop elevations, prompted patient to undergo Cardiac Cath, which showed MV CAD. Patient diagnosed with NSTEMI, started on Heparin gtt, and transferred to [facility] for CABG evaluation. Patient notes he was experiencing exertional chest pain and exertional dyspnea for about two weeks prior to presenting at [facility]; noting more intense pain/ increased frequency over the last week. Chest pain described as feeling like his chest is caving in and rated 9.5/10 at worse. He noted the most bothersome part for him though was the shortness of breath, stating that he felt like he could not get air at some points. This would go away, per patient, after about 10 minutes at rest. At baseline, patient states he lives a relatively active lifestyle. [place] large property with horses and dogs. He notes being able to perform ADLs without difficulty, including no issues walking to his mailbox prior to the symptom onset ~2 weeks ago. Now, patient states he is having difficulty even taking the dogs out due to symptoms. INTERVAL EVENTS / PERTINENT ROS: Patient underwent CABG x3 (RICHMOND-LAD, SVG-OM, SVG-PDA) with Dr. Alex on 04/20/2022. He tolerated the procedure well and there were no immediate complications. He was extubated on time per early extubation protocol. Patient went into Afib around 9PM on the evening of POD#1, which has been intermittent since. 04/21: Patient seen and examined in CVICU. He is POD#3 today. He is hemodynamically stable on 2L O2 via NC. Overnight, patient was having some hallucinations requiring prn Haldol to be given. This AM he is laying in bed. Yesterday the patient was not up to walk due to the RN reporting him being unsteady on his feet. Telemetry showing rate-controlled atrial fibrillation. Patient seems more comfortable this morning following removal of his chest tubes yesterday. He also is not having any more episodes of hiccups. He notes he is experiencing and ache in his bilateral upper extremities. At this time, he is denying any chest pain, abdominal pain, nausea/vomiting, lightheadedness/dizziness, shortness of breath, or lower extremity pain bilaterally. He denies any BM or flatus postoperatively. Despite not walking yesterday, he notes that he would want to walk today. All relevant labs and imaging were reviewed. Objective Admission Weight: 98.3 kg (216 lb 12.8 oz) BP 99/64 Pulse 96 Temp 36.2 ?C (97.2 ?F) (Temporal) Resp 13 Ht 177.8 cm (5' 10 ) Wt 103 kg (227 lb) SpO2 99% BMI 32.57 kg/m? Body surface area is 2.26 meters squared. Min/Max/Average Temperature AND Blood Pressure: Temp (24hrs), Av.1 ?C (96.9 ?F), Min:36 ?C (96.8 ?F), Max:36.2 ?C (97.2 ?F) Systolic (24hrs), Av , Min:94 , Max:154 Diastolic (24hrs), Av, Min:50, Max:98 Intake/Output Summary (Last 24 hours) at 04/23/2022 0712 Last data filed at 04/23/2022 0400 Gross per 24 hour Intake 960 ml Output 3450 ml Net -2490 ml TELEMETRY: atrial fibrillation PHYSICAL EXAM: General Appearance: Awake, laying in bed. Skin: Mid-sternal incision site clean, dry, and intact without surrounding erythema or purulence. Some ecchymosis of superior portion. Chest tubes sites well-dressed and non-saturated s/p removal. EVH site clean, dry, and intact - some ecchymosis along tract that is non-tender to palpation Lungs: Some crackles in lung bases bilaterally; diminished respiratory effort Heart: Irregular rate and rhythm Peripheral Vascular/Arteries: Radial pulses 2+ bilaterally; DP pulses 2+ bilaterally Abdomen: Slight distention; bowel sounds present. Non-tender to palpation throughout Neurologic/Psychiatric: Alert and oriented place, self, and situation - not oriented to time (month correct, however stating wrong year). Sales Communications Manager strength 5/5 bilaterally. Facial movement symmetric. Extremities: Trace edema of bilateral UE and LE Lines, Drains, and Airways Line Duration Peripheral 04/17/22 Admission to Hospital Right Antecubital 20 Gauge 6 days Peripheral 0 (more content not included)... [facility] 04-22-2022 Note HNO ID: [id number] Author: Janelle Decker RN Service: Care Management Author Type: Registered Nurse Type: Care Mgt Progress Note Filed: 04/22/2022 3:54 PM Note Text: CARE MANAGEMENT PROGRESS NOTE SERVICE DATE: 04/22/2022 SERVICE TIME: 3:52 PM LOS: 5 days Needs Prior to Discharge: To Be Determined;Discharge Prescriptions;Facility or Agency Choices;Home Care Order;Bed Availability;Accepting Facility;Discharge Transportation Met with patient and his dtr Elizabeth who was present at bedside to discuss discharge plan. Aware of PT rec's for Acute Rehab. Spoke with patient's Kimmie by phone. Family requesting referral to [facility]. Referral placed. Awaiting acceptance. CM to continue to follow. SIGNATURE: Janelle Decker RN PATIENT NAME: Olga Lindsey DATE: April 22, 2022 TIME: 3:52 PM PAGER/CONTACT #: [phone] r [facility] 04-22-2022 Note HNO ID: [id number] Author: Janelle Decker RN Service: Care Management Author Type: Registered Nurse Type: Care Mgt Progress Note Filed: 04/22/2022 2:37 PM Note Text: CARE MANAGEMENT PROGRESS NOTE SERVICE DATE: 04/22/2022 SERVICE TIME: 2:30 PM LOS: 5 days Needs Prior to Discharge: To Be Determined;Discharge Prescriptions;Facility or Agency Choices;Home Care Order;Bed Availability;Accepting Facility;Discharge Transportation Epic notes reviewed. Patient s/p CABG POD #2. Remains on 2 L O2 at 97%. Weaning O2 as tolerated. PT nia is recommending Acute Rehab at discharge. Attempted to discuss PT rec's with patient but he is requesting that I contact his to discuss this. Attempted to reach her. Left VM. Awaiting a return call. Discharge plan is Home with [facility] vs Acute Rehab. CM to continue to follow. SIGNATURE: Janelle Decker RN PATIENT NAME: Olga Lindsey DATE: April 22, 2022 TIME: 2:30 PM PAGER/CONTACT #: [phone] [facility] 04-22-2022 Note HNO ID: [id number] Author: Cherrie Mann PA-C Service: Cardiovascular Surgery Author Type: Physician Fruit Picker Machine Operator Type: Progress Notes Filed: 04/22/2022 12:54 PM Note Text: CARDIOTHORACIC SURGERY POSTOP PROGRESS NOTE SERVICE DATE: 04/22/2022 SERVICE TIME: 0815 Subjective S/P SURGERY: Procedure(s) (LRB): BYPASS GRAFT ARTERY CORONARY ON-PUMP SINGLE CORONARY ARTERIAL GRAFT (N/A) BYPASS GRAFT ARTERY CORONARY ON-PUMP USING VENOUS GRAFT(S) AND ARTERIAL GRAFT(S); TWO VENOUS GRAFTS (N/A) ENDOSCOPIC HARVEST VEIN FOR CORONARY ARTERY BYPASS PROCEDURE (N/A) DATE OF SURGERY: 04/20/2022 POSTOP DAY #2 LOS: 5 HPI: This is a 82 year old male with a PMHx of HTN, Trigeminal Neuralgia, and HLD who presents as a transfer from [facility]. He originally presented to [place] 04/15 due to worsening chest pain. Initial EKG showed NSR without ST segment changes, per my interpretation. HS Trop elevated initially at 2134 at peaked at 3350 per record review. Given HS Trop elevations, prompted patient to undergo Cardiac Cath, which showed MV CAD. Patient diagnosed with NSTEMI, started on Heparin gtt, and transferred to [facility] for CABG evaluation. Patient notes he was experiencing exertional chest pain and exertional dyspnea for about two weeks prior to presenting at [facility]; noting more intense pain/ increased frequency over the last week. Chest pain described as feeling like his chest is caving in and rated 9.5/10 at worse. He noted the most bothersome part for him though was the shortness of breath, stating that he felt like he could not get air at some points. This would go away, per patient, after about 10 minutes at rest. At baseline, patient states he lives a relatively active lifestyle. [place] with horses and dogs. He notes being able to perform ADLs without difficulty, including no issues walking to his mailbox prior to the symptom onset ~2 weeks ago. Now, patient states he is having difficulty even taking the dogs out due to symptoms. INTERVAL EVENTS / PERTINENT ROS: Patient underwent CABG x3 (RICHMOND-LAD, SVG-OM, SVG-PDA) with Dr. Alex on 04/20/2022. He tolerated the procedure well and there were no immediate complications. He was extubated on time per early extubation protocol. Patient went into Afib around 9PM on the evening of POD#1, which has been intermittent since. 04/20: Patient seen and examined in CVICU. He is POD#2 today. Hemodynamically stable on 3L O2 via NC. Patient went into atrial fibrillation around 9PM last evening, which he has been in and out of since. On my initial exam he was in sinus tachycardia, repeat exam showing atrial fibrillation. CT output 370cc in the past 24 hours. Patient was retaining urine overnight requiring straight cath. Patient uncomfortable today, noting pain primarily near his chest tube insertion sites as well as mid-sternal chest. He also was having hiccups on my initial exam, which were very bothersome to the patient/ increasing his pain. Increased pain on inspiration as well. Patient did have some moderate air/ distention of his stomach on CXR. Given location of pain, cannot fully rule out pain in epigastric region vs. Chest tubes however when palpating under tubes patient does not have pain whereas above he does. Patient denies any vomiting or nausea. He denies any pain in his bilateral LE or numbness/ tingling of the extremities. No BM yet, denies flatus as well. All relevant labs and imaging were reviewed. Objective Admission Weight: 98.3 kg (216 lb 12.8 oz) BP 133/64 Pulse 116 Temp 36.5 ?C (97.7 ?F) (Temporal) Resp 14 Ht 177.8 cm (5' 10 ) Wt 96.2 kg (212 lb) SpO2 95% BMI 30.42 kg/m? Body surface area is 2.18 meters squared. Min/Max/Average Temperature AND Blood Pressure: Temp (24hrs), Av.3 ?C (97.4 ?F), Min:36 ?C (96.8 ?F), Max:36.5 ?C (97.7 ?F) Systolic (24hrs), Av , Min:89 , Max:144 Diastolic (24hrs), Av, Min:50, Max:93 Intake/Output Summary (Last 24 hours) at 04/22/2022 0817 Last data filed at 04/22/2022 0600 Gross per 24 hour Intake 1604 ml Output 720 ml Net 884 ml TELEMETRY: Atrial Fibrillation, rates low 100s PHYSICAL EXAM: General Appearance: Less drowsy than yesterday; sitting up in chair. Skin: Mid-sternal incision site clean, dry, and intact without surrounding erythema or purulence. Some ecchymosis of superior portion. Chest tubes present - sites well-dressed and non-saturated. EVH site clean, dry, and intact - some ecchymosis along tract. Lungs: Decreased inspiratory effort; coarse breath sounds bilaterally. 3L O2 via NC. Heart: Irregular rate and rhythm; adventitious sounds heard likely secondary to mediastinal chest tube Peripheral Vascular/Arteries: Radial pulses 2+ bilaterally; DP pulses 1+ bilaterally Abdomen: Slight distention; bowel sounds present. Some tenderness to palpation near epigastric region Neurologic/Psychiatr (more content not included)... [facility] 04-22-2022 Note HNO ID: [id number] Author: Davion Hayward MD Service: Critical Care Author Type: Physician Type: Progress Notes Filed: 04/22/2022 4:13 PM Note Text: [facility], [place], OPERATED BY [facility] PH[facility]ICIAN NOTE OF PERSONAL INVOLVEMENT IN CARE I have reviewed the progress note obtained and documented by the nurse practitioner and I personally participated in the muñoz components. I have discussed the case and management of the patient's care. The following comments revise or confirm relevant muñoz components of the note. C/O hiccups causing chest to hurt Setting up in chair on rounds this AM. No SOB. SaO2 96-99% on 2l/min. No appreciable secretions. Mediastinal tube removed. BP 154/98 Pulse 101 Temp 36 ?C (96.8 ?F) (Temporal) Resp 23 Ht 177.8 cm (5' 10 ) Wt 103 kg (227 lb) SpO2 98% BMI 32.57 kg/m? 24 hour Intake AND Output: Intake/Output Summary (Last 24 hours) at 04/22/2022 1611 Last data filed at 04/22/2022 0600 Gross per 24 hour Intake 1504 ml Output 520 ml Net 984 ml EXAM: HEENT: Poor dentition. No thrush. Mucous membranes pale and dry. Grade IV airway. NECK: No JVD or LAD. +Right IJV TLC. LUNGS: Decreased BSs left base. Right clear. Serosanguinous chest tube drainage. HEART: RRR--NSR on monitor. ABDOMEN: Soft and NT. ND. +BS. EXTREMITIES: Trace nonpitting LE edema. 04/22 CXR: RESULT: Lines, tubes, and devices: Interval removal of mediastinal drain. A right internal jugular central venous catheter and bilateral chest tubes remain. Overlying cardiac monitoring leads and radiopaque tubing. Lungs and pleura: Low lung volumes with persistent bibasilar opacities, left worse than right. Mild elevated right hemidiaphragm. Cardiomediastinal silhouette: Stable cardiomediastinal silhouette. Other: Moderate air distended stomach. Median sternotomy cerclage wires and sternal stabilization plate. 04/21 CXR: RESULT: Lines, tubes, and devices: Endotracheal tube and enteric tube have been removed. Right internal jugular central line with tip near the caval atrial junction. Stable positioning of mediastinal drain. Stable positioning of bilateral chest tubes. manager monitoring leads. Lungs and pleura: Patchy diminished aeration at both lung bases. Probable small left effusion. No pneumothorax. Cardiomediastinal silhouette: Stable. DATA: BLOOD GAS: Recent Labs 04/20/22 1431 04/20/22 1250 04/20/22 1210 04/20/22 1140 04/20/22 1114 04/20/22 1110 04/20/22 1052 04/20/22 0830 VPH -- -- -- -- 7.373 -- -- -- VPC2 -- -- -- -- 40.3* -- -- -- VPO2C -- -- -- -- 53* -- -- -- PH 7.27* -- -- -- -- -- -- -- PCO2 47* 39.3 40.9 40.8 -- 40.2 44.4 44.2 CBC: Recent Labs 04/22/22 0310 04/21/22 0333 04/20/22 1431 04/20/22 0040 04/19/22 0422 04/18/22 0449 04/17/22 0136 WBC 12.52* 10.77 14.02* 7.47 7.56 6.87 7.09 HB 10.2* 10.6* 10.3* 11.6* 12.7* 12.0* 12.4* HCT 31.5* 31.7* 30.4* 33.9* 37.7* 35.7* 36.6* PLT 139* 134* 127* 149* 164 164 154 MCV 92.9 90.3 88.4 88.5 88.3 88.4 88.0 RDWCV 13.5 13.4 13.4 13.2 13.3 13.2 13.2 COAG: Recent Labs 04/20/22 1431 04/19/22 0422 04/18/22 1800 04/18/22 1224 04/18/22 0449 04/17/22 2145 04/17/22 1535 04/17/22 0650 04/17/22 0136 APTT 30.4 56.2* 61.8* 65.0* 87.4* 62.4* 47.0* 43.0* 61.5* INR 1.1 -- -- -- -- -- -- -- 1.0 BMP: Recent Labs 04/22/22 0310 04/21/22 0333 04/20/22 1431 04/18/22 0449 04/17/22 1216 GLUC 143* 116* 144* 93 110* NA 125* 132* 131* 133* 132* K 4.9 4.7 3.9 4.0 3.8 CHLOR 95* 102 101 99 97 CO2 22 22 22 25 25 ANION 8* 8* 8* 9 10 BUN 25* 20 17 21 14 CREAT 0.76 0.80 0.73 0.76 0.70* CHEM: Recent Labs 04/22/22 0310 04/21/22 0333 04/20/22 1431 04/18/22 0449 04/17/22 1216 ALB -- -- -- -- 3.8* TPROT -- -- -- -- 6.0* CA 9.2 9.2 9.2 9.8 10.0 MG 2.1 2.2 2.1 -- -- ICAL -- -- 1.39* -- -- HEPATIC: Recent Labs 04/17/22 1216 ALKPHOS 75 ALT 15 AST 18 TBILI 0.3 CARDIAC: No results for input(s): CKTEST, CKMB, CKMBP, TROPT, PBNP in the last 168 hours. 04/17/22: Nasal PCR (-) 04/17/22 URTSB: (-) for COVID19 and Flu A/B IMPRESSION: POD #2 CABGx 3 following NSTEMI on admission of 04/16/22 and multivessel CADse Resolved postop anticipatory respiratory insufficiency Bibasilar atelectasis Hiccups Mild post-op blood loss anemia Moderate hyponatremia Hypothyroidism PLAN: Push incentive spirometry. Ambulation. Lovenox and Protonix ATBx off Chest tubes per CTS PRN Thorazine 25mg tid Tegretol restarted for trigeminal neuralgia Patient/Family Updated: Patient, Olga Lindsey, contacted. They were updated on the patient's goals of care, medical plan for the day, salesforce consultant recommendations, medical disposition and current medical condition/prognosis as and if clinically indicated. All questions and concerns were answered and addressed at this juncture. No family present at the bedside. This patient has a high probability of sudden, clinically significan (more content not included)... [facility] 04-21-2022 Note HNO ID: [id number] Author: Cherrie Mann PA-C Service: Cardiovascular Surgery Author Type: Physician Fruit Picker Machine Operator Type: Progress Notes Filed: 04/21/2022 11:01 AM Note Text: CARDIOTHORACIC SURGERY POSTOP PROGRESS NOTE SERVICE DATE: 04/21/2022 SERVICE TIME: 0800 Subjective S/P SURGERY: Procedure(s) (LRB): BYPASS GRAFT ARTERY CORONARY ON-PUMP THREE CORONARY ARTERIAL GRAFTS; RICHMOND TO LAD, SVG TO CIRC; SVG TO RCA (N/A) DATE OF SURGERY: 04/20/2022 POSTOP DAY #1 LOS: 4 HPI: This is a 82 year old male with a PMHx of HTN, Trigeminal Neuralgia, and HLD who presents as a transfer from [facility]. He originally presented to [place] 04/15 due to worsening chest pain. Initial EKG showed NSR without ST segment changes, per my interpretation. HS Trop elevated initially at 2134 at peaked at 3350 per record review. Given HS Trop elevations, prompted patient to undergo Cardiac Cath, which showed MV CAD. Patient diagnosed with NSTEMI, started on Heparin gtt, and transferred to [facility] for CABG evaluation. Patient notes he was experiencing exertional chest pain and exertional dyspnea for about two weeks prior to presenting at [facility]; noting more intense pain/ increased frequency over the last week. Chest pain described as feeling like his chest is caving in and rated 9.5/10 at worse. He noted the most bothersome part for him though was the shortness of breath, stating that he felt like he could not get air at some points. This would go away, per patient, after about 10 minutes at rest. At baseline, patient states he lives a relatively active lifestyle. [place] large property with horses and dogs. He notes being able to perform ADLs without difficulty, including no issues walking to his mailbox prior to the symptom onset ~2 weeks ago. Now, patient states he is having difficulty even taking the dogs out due to symptoms. INTERVAL EVENTS / PERTINENT ROS: Patient underwent CABG x3 (RICHMOND-LAD, SVG-OM, SVG-PDA) with Dr. Alex on 04/20/2022. He tolerated the procedure well and there were no immediate complications. He was extubated on time per early extubation protocol. 04/20: Patient seen and examined in CVICU. He is POD#1 today. He is hemodynamically stable off pressor support and on 3L O2 via NC. CT output 700cc postoperatively. UO ~1.5L over the past 24 hours. Telemetry showing NSR. Yesterday, patient was hypertensive postoperatively. He required initiation of Nitro gtt and remained hypertensive while maxed on Nitro gttt requiring transition to Cardene gtt. This was weaned/ discontinued this AM. Patient has been out of bed to chair thus far this morning. Patient alert and oriented per questions, but seems a bit confused following Morphine administration. He is fatigued/ drowsy on exam. He notes pain in his chest while he is awake. Also noting pain with deep inspiration. He denies any nausea or vomiting, but did endorse some abdominal discomfort to palpation. Denies any pain in his lower extremities bilaterally. All relevant labs and imaging were reviewed. Objective Admission Weight: 98.3 kg (216 lb 12.8 oz) BP (!) 162/48 Pulse 72 Temp 37.6 ?C (99.7 ?F) Resp 9 Ht 177.8 cm (5' 10 ) Wt 96.2 kg (212 lb) SpO2 96% BMI 30.42 kg/m? Body surface area is 2.18 meters squared. Min/Max/Average Temperature AND Blood Pressure: Temp (24hrs), Av.9 ?C (98.5 ?F), Min:35.7 ?C (96.3 ?F), Max:37.7 ?C (99.9 ?F) Systolic (24hrs), Av , Min:70 , Max:162 Diastolic (24hrs), Av, Min:38, Max:76 Intake/Output Summary (Last 24 hours) at 04/21/2022 0854 Last data filed at 04/21/2022 0800 Gross per 24 hour Intake 5318 ml Output 2505 ml Net 2813 ml TELEMETRY: normal sinus rhythm PHYSICAL EXAM: General Appearance: Drowsy, no distress. Well-developed. Skin: Mid-sternal incision site clean, dry, and intact without surrounding erythema or purulence. Chest tubes present - sites well-dressed and non-saturated. Left leg wrapped s/p EVH. Head/Eyes: Pupils pinpoint - equal. Normocephalic. Lungs: Decreased inspiratory effort; coarse breath sounds bilaterally. 3L O2 via NC. Heart: Regular rate and rhythm; adventitious sounds heard likely secondary to mediastinal chest tube Peripheral Vascular/Arteries: Radial pulses 2+ bilaterally; DP pulses 1+ bilaterally Abdomen: Slight distention; bowel sounds present. Some tenderness to palpation throughout. Neurologic/Psychiatric: Alert and oriented per questions but confused/ drowsy. Sales Communications Manager strength 5/5 bilaterally. Facial movements symmetric. Extremities: Trace nonpitting edema bilateral hands Lines, Drains, and Airways Line Duration Peripheral 04/17/22 0658 Right Hand 20 Gauge 4 days Peripheral 04/17/22 Admission to Hospital Right Antecubital 20 Gauge 4 days Arterial Line/Sheath 04/20/22 0751 Left Radial 1 day Central Line Quadruple Lumen 04/20/22 0857 Non-tunneled Right Neck <1 day Drain Duration C (more content not included)... [facility] 04-21-2022 Note HNO ID: [id number] Author: Davion Hayward MD Service: Critical Care Author Type: Physician Type: Progress Notes Filed: 04/21/2022 3:18 PM Note Text: [facility] [place], [facility] BY [facility] PHYSICIAN NOTE OF PERSONAL INVOLVEMENT IN CARE I have reviewed the progress note obtained and documented by the nurse practitioner and I personally participated in the muñoz components. I have discussed the case and management of the patient's care. The following comments revise or confirm relevant muñoz components of the note. Extubated last PM. Setting up in chair on rounds this AM. No SOB. SaO2 96-99% on 2l/min. No appreciable secretions. BP (!) 162/48 Pulse 72 Temp 37.6 ?C (99.7 ?F) Resp 14 Ht 177.8 cm (5' 10 ) Wt 96.2 kg (212 lb) SpO2 96% BMI 30.42 kg/m? 24 hour Intake AND Output: Intake/Output Summary (Last 24 hours) at 04/21/2022 0804 Last data filed at 04/21/2022 0611 Gross per 24 hour Intake 5431.5 ml Output 2430 ml Net 3001.5 ml EXAM: HEENT: Poor dentition. No thrush. Mucous membranes pale and dry. Grade IV airway. NECK: No JVD or LAD. +Right IJV TLC. LUNGS: Decreased BSs left base. Right clear. Serosanguinous chest tube drainage. HEART: RRR--NSR on monitor. ABDOMEN: Soft and NT. ND. +BS. EXTREMITIES: Trace pitting LE edema. 04/21 CXR: RESULT: Lines, tubes, and devices: Endotracheal tube and enteric tube have been removed. Right internal jugular central line with tip near the caval atrial junction. Stable positioning of mediastinal drain. Stable positioning of bilateral chest tubes. manager monitoring leads. Lungs and pleura: Patchy diminished aeration at both lung bases. Probable small left effusion. No pneumothorax. Cardiomediastinal silhouette: Stable. DATA: BLOOD GAS: Recent Labs 04/20/22 1431 04/20/22 1250 04/20/22 1210 04/20/22 1140 04/20/22 1114 04/20/22 1110 04/20/22 1052 04/20/22 0830 VPH -- -- -- -- 7.373 -- -- -- VPC2 -- -- -- -- 40.3* -- -- -- VPO2C -- -- -- -- 53* -- -- -- PH 7.27* -- -- -- -- -- -- -- PCO2 47* 39.3 40.9 40.8 -- 40.2 44.4 44.2 CBC: Recent Labs 04/21/22 03304/20/22 14304/20/22 0040 04/19/22 0422 04/18/22 0449 04/17/22 0136 WBC 10.77 14.02* 7.47 7.56 6.87 7.09 HB 10.6* 10.3* 11.6* 12.7* 12.0* 12.4* HCT 31.7* 30.4* 33.9* 37.7* 35.7* 36.6* PLT 134* 127* 149* 164 164 154 MCV 90.3 88.4 88.5 88.3 88.4 88.0 RDWCV 13.4 13.4 13.2 13.3 13.2 13.2 COAG: Recent Labs 04/20/22143004/19/2242104/18/22 1800 04/18/22 1224 04/18/22 0449 04/17/22 2145 04/17/22 1535 04/17/22 0650 04/17/22 0136 APTT 30.4 56.2* 61.8* 65.0* 87.4* 62.4* 47.0* 43.0* 61.5* INR 1.1 -- -- -- -- -- -- -- 1.0 BMP: Recent Labs 04/21/2233204/20/22143004/18/2244804/17/22 1216 GLUC 116* 144* 93 110* NA 132* 131* 133* 132* K 4.7 3.9 4.0 3.8 CHLOR 102 101 99 97 CO2 22 22 25 25 ANION 8* 8* 9 10 BUN 20 17 21 14 CREAT 0.80 0.73 0.76 0.70* CHEM: Recent Labs 04/21/2233204/20/22 14304/18/22 0449 04/17/22 1216 ALB -- -- -- 3.8* TPROT -- -- -- 6.0* CA 9.2 9.2 9.8 10.0 MG 2.2 2.1 -- -- ICAL -- 1.39* -- -- HEPATIC: Recent Labs 04/17/22 1216 ALKPHOS 75 ALT 15 AST 18 TBILI 0.3 CARDIAC: No results for input(s): CKTEST, CKMB, CKMBP, TROPT, PBNP in the last 168 hours. 04/17/22: Nasal PCR (-) 04/17/22 URTSB: (-) for COVID19 and Flu A/B IMPRESSION: POD #1 CABGx 3 following NSTEMI on admission of 04/16/22 and multivessel CADse Resolved postop anticipatory respiratory insufficiency Mild post-op blood loss anemia Mild hyponatremia PLAN: Push incentive spirometry. Ambulation. Lovenox and Protonix ATBx per CTS Surgery Chest tubes per CTS Off all pressors Patient/Family Updated: Patient, Olga Lindsey, contacted. They were updated on the patient's goals of care, medical plan for the day, salesforce consultant recommendations, medical disposition and current medical condition/prognosis as and if clinically indicated. All questions and concerns were answered and addressed at this juncture. No family present at the bedside. This patient has a high probability of sudden, clinically significant deterioration, which requires the highest level of physician preparedness to intervene urgently. I managed/supervised life or organ supporting interventions that required frequent physician assessment. I devoted my full attention to the direct care of this patient for the amount of time indicated below. Time I spent with family or surrogate(s) is included only if the patient was incapable of providing the necessary information or participating in medical decision making. Time devoted to teaching and to any procedures I billed separately is not included. Critical Care Documentation: The patient has the following organ/system impairment(s): Acute blood loss and Post-op Respiratory Insufficiency ICU Checklist Last Documented/Reviewed time: 04/20/2022 3:54 PM (more content not included)... [facility] 04-20-2022 Note HNO ID: [id number] Author: Vito Mcbride MD Service: Hospital Medicine Author Type: Physician Type: Plan of Care Filed: 04/20/2022 7:11 PM Note Text: Mr. Lindsey had CABG by Dr. Alex today. Postsurgery, he is now admitted to CVICU under Dr. Alex. MICU team is on consult. Hospital medicine will sign off at this time. Please call us at [phone] (on-call pager) if you have any questions. [facility] 04-20-2022 Note HNO ID: [id number] Author: Marily Santos APRN.CRNA Service: Anesthesiology Author Type: Nurse Community Health Counselor Type: Anesthesia Procedure Notes Filed: 04/20/2022 8:57 AM Note Text: ANESTHESIOLOGY PROCEDURE NOTE CVL General Information Procedure Start Time/Medication Administration: 04/20/2022 8:17 AM Patient location during procedure: OR Timeout Performed Pre-procedure: timeout performed Consent Obtained: Yes Patient identity confirmed: arm band and patient Indication: central venous access and CVP monitoring Staffing Anesthesiologist: Raz Doherty MD SEAT COVERS TRIMMER: Marily Santos APRN.SEAT COVERS TRIMMER SRNA: BLAYNE Gaytan Performed by: anesthesiologist Preparation Sterility Preparation: hand hygiene performed prior to procedure, sterile gloves, drapes, and procedure tray, surgical cap used, mask used, sterile drape used during line insertion, skin prep agent completely dried prior to procedure Site Prep: Chloraprep Procedure Details Patient Position: Trendelenburg Laterality: Right Site: Subclavian Catheter Type: Standard CVL Catheter Size: 8.5 Fr Catheter Length (cm): 16 Insertion Depth: 16 cm Number of Lumens: Quad lumen Ultrasound Guided: Yes Image in Chart: No Sites: potential access sites evaluated, selected vessel patent, concurrent real time ultrasound visualization of vascular needle entry Vessel: target vessel identified and guidewire advanced into vessel Needle advanced into vein and blood aspirated: Yes Transduced prior to dilation: Yes Number of Attempts: 1 Number of Guidewires Used: 1 Number of Guidewires Removed Intact: 1 Chest X-ray Ordered: Yes Chest X-Ray Results: results still pending Post Insertion Ports and Catheter: all ports aspirate easily, all ports flush easily and ports flushed with saline Catheter Secured: central line dressing applied, antimicrobial dressing applied and suture(s) Events Events: patient tolerated procedure well with no complications SIGNATURE: Marily Santos APRN.SEAT COVERS TRIMMER PATIENT NAME: Olga Lindsey DATE: April 20, 2022 TIME: 8:55 AM CSN: [id number] [facility] 04-20-2022 Note HNO ID: [id number] Author: Marily Santos APRN.CRNA Service: Anesthesiology Author Type: Nurse Community Health Counselor Type: Anesthesia Procedure Notes Filed: 04/20/2022 8:15 AM Note Text: ANESTHESIOLOGY PROCEDURE NOTE Airway General Information Procedure Start Time/Medication Administration: 04/20/2022 8:01 AM Patient location during procedure: OR Timeout Performed Pre-procedure: timeout performed Consent Obtained: Yes Patient identity confirmed: arm band and patient Staffing Anesthesiologist: Raz Doherty MD SEAT COVERS TRIMMER: Marily Santos APRN.SEAT COVERS TRIMMER SRNA: BLAYNE Gaytan Performed by: BLAYNE Indications and Patient Condition Indications for airway management: anesthesia Preoxygenated: yes anesthesia circuit Patient position: sniffing Method: asleep Airway Accessory: oral airway Final Airway Details Final airway type: endotracheal airway Final Endotracheal Airway: ETT Cuffed: yes Successful intubation technique: video laryngoscopy Devices used: Rebollar Endotracheal tube insertion site: oral Blade: Tyron Blade size: #4 ETT size (mm): 8.0 Measured from: teeth Measurement (cm): 23 Placement verified by: chest auscultation and capnometry Cormack-Lehane Classification: grade I - full view of glottis Number of attempts at approach: 2 Ventilation between attempts: 2 hand mask Comments Poor visualization with Mac 4 layngoscope. Easy mask between attempts SIGNATURE: Marily Santos APRN.CRNA PATIENT NAME: Olga Lindsey DATE: April 20, 2022 TIME: 8:13 AM CSN: [id number] [facility] 04-20-2022 Note HNO ID: [id number] Author: Marily Santos APRN.CRNA Service: Anesthesiology Author Type: Nurse Community Health Counselor Type: Anesthesia Procedure Notes Filed: 04/20/2022 9:06 AM Note Text: ANESTHESIOLOGY PROCEDURE NOTE A-Line General Information Procedure Start Time/Medication Administration: 04/20/2022 7:51 AM SIGNATURE: Marily Santos APRN.CRNA PATIENT NAME: Olga Lindsey DATE: April 20, 2022 TIME: 7:51 AM CSN: [id number] [facility] 04-19-2022 Note HNO ID: [id number] Author: Narinder Ojeda PA-C Service: Cardiovascular Surgery Author Type: Physician Fruit Picker Machine Operator Type: Plan of Care Filed: 04/19/2022 12:01 PM Note Text: Patient seen on 4200 this morning. Pre op teaching was completed and questions regarding intra and post operative course were answered. Patient is ready to move forward with the plan for CABG. Plan is for CABG with Dr. Alex tomorrow at 7:30. Pre op orders have been placed. was called for an update but did not answer so a voicemail was left. Please contact for any further questions. Narinder Ojeda PA-C [phone] Pager: [phone] [facility] 04-19-2022 Note HNO ID: [id number] Author: Vito Mcbride MD Service: Hospital Medicine Author Type: Physician Type: Progress Notes Filed: 04/19/2022 6:12 PM Note Text: DEPARTMENT OF HOSPITAL MEDICINE PROGRESS NOTE SERVICE DATE: 04/19/2022 SERVICE TIME: 9:29 AM Hospital Medicine/Primary Attending: Vito Mcbride MD NIGHT AND WEEKEND COVERAGE: After 7pm please page [phone] CHIEF COMPLAINT: NSTEMI. SUBJECTIVE: Denies any chest pain shortness of breath nausea or vomiting. No bleeding OBJECTIVE: PHYSICAL EXAM: BP 148/62 Pulse 58 Temp (Src) 98.1 (Oral) Resp 20 Ht 5' 10 (1.78m) Wt 216 lb 12.8 oz (98.3kg) SpO2 98% BMI 31.11 kg/(m2). O2 Therapy: Room Air GENERAL: Alert, no distress, cooperative, SKIN: Skin color, texture, turgor warm. OROPHARYNX: Lips, mucosa, and tongue moist LUNGS: Lungs clear to auscultation, Air entry good, Unlabored breathing. CARDIAC: Normal S1 and S2; no rubs, murmurs, or gallops ABDOMEN: Abdomen soft, non-tender, non-distended, BS normal EXTREMITIES: Trace edema in legs if any NEURO: Awake and alert. Moving all 4 limbs MEDICATIONS: Current Facility-Administered Medications Medication Dose Route Frequency heparin iv infusion 25,000 units in NaCl 0.45% 250 mL LOW DOSE/ACS NOMOGRAM 0-3,000 Units/hr INTRAVENOUS CONTINUOUS And heparin RATE CHANGE bolus 1,000-4,000 Units for subtherapeutic PTTAC results 1,000-4,000 Units INTRAVENOUS PRN morphine 4 mg injection 4 mg INTRAVENOUS q 4 H PRN carBAMazepine 200 mg tab(s) (TEGretol) 200 mg ORAL TID amLODIPine 5 mg tab(s) (NORVASC) 5 mg ORAL DAILY hydroCHLOROthiazide 25 mg tab(s) 25 mg ORAL DAILY levothyroxine 25 mcg tab(s) (SYNTHROID) 25 mcg ORAL DAILY (6 AM) carvedilol 6.25 mg tab(s) (COREG) 6.25 mg ORAL BID w MEALS NaCl 0.9% iv flush bag 20 mL INTRAVENOUS PRN aspirin 81 mg chewable tab(s) 81 mg ORAL DAILY atorvastatin 40 mg tab(s) (LIPITOR) 40 mg ORAL AT BEDTIME mupirocin 2 % 0.5 g nasal ointment (BACTROBAN) 0.5 g NASAL BID DATA: Diagnostic tests reviewed for today's visit: CBC, Coags, BMP, Mg, Phos Recent Labs 04/19/22 0422 04/18/22 1800 04/18/22 1224 04/18/22 0449 04/17/22 1535 04/17/22 1216 04/17/22 0650 04/17/22 0136 WBC 7.56 -- -- 6.87 -- -- -- 7.09 HB 12.7* -- -- 12.0* -- -- -- 12.4* HCT 37.7* -- -- 35.7* -- -- -- 36.6* PLT 164 -- -- 164 -- -- -- 154 INR -- -- -- -- -- -- -- 1.0 APTT 56.2* 61.8* 65.0* 87.4* < > -- < > 61.5* NA -- -- -- 133* -- 132* -- -- K -- -- -- 4.0 -- 3.8 -- -- CHLOR -- -- -- 99 -- 97 -- -- CO2 -- -- -- 25 -- 25 -- -- BUN -- -- -- 21 -- 14 -- -- CREAT -- -- -- 0.76 -- 0.70* -- -- GLUC -- -- -- 93 -- 110* -- -- CA -- -- -- 9.8 -- 10.0 -- -- < > = values in this interval not displayed. Liver Function, Amylase, AND Lipase Recent Labs 04/17/22 1216 TPROT 6.0* ALB 3.8* ALT 15 AST 18 ALKPHOS 75 TBILI 0.3 Cardiac Enzymes Heme: No results for input(s): RETICP, ABSRETIC, LD, ALEX, FE, TIBC, TRANSFERSAT in the last 24 hours. No results found for: UALBCR Assessment/Plan Patient Active Hospital Problem List: NSTEMI (non-ST elevated myocardial infarction) (HCC) (04/17/2022) Obesity, Class I, BMI 30-34.9 (04/17/2022) ASSESSMENT: Mr. Lindsey presented initially to [facility] on 04/15/2022 for exertional substernal chest pain and shortness of breath. 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 1. NSTEMI: LHC at [place]-left main-proximal 25%, distal 50%; mid [id number]-27%, proximal and mid - severe calcification; circumflex-ostial 75%, proximal- severe calcification, OM1-mid-50%; RCA-ostial 90%, distal 50%; LVEF 65% with mild mitral insufficiency On heparin drip. On aspirin, Coreg, amlodipine and statin. Evaluated cardiology and cardiothoracic surgery. Plan for CABG on 04/20. Pre-CABG work-up ordered by cardiothoracic surgery-bilateral carotid ultrasound CT chest. 2. Incidental finding of subpleural nodularities: LLL 1 cm and RLL 0.7 cm Needs follow-up CT chest and follow-up with flag signaler 3. Incidental finding of right hepatic dome cystic lesion with punctate calcification: Needs follow-up imaging and follow-up with hepatology/GI 4. Incidental finding of T1 sclerotic focus 0.8 cm and left 10th rib 0.7 cm sclerotic focus: Likely needs bone scan and follow-up with oncologist Other medical conditions. 1. Hypertension:: On amlodipine, hydrochlorothiazide, and Coreg. 2. Hyperlipidemia: On lovastatin 3. Hypothyroidism: On Synthroid 4. Trigeminal neuralgia on colonoscopy PLAN: Continue current treatment. Plan for CABG tomorrow VTE Prophylaxis: Patient is already anti-coagulated. Disposition: To be determined Plan of care discussed with: Provider, RN, Patient SIGNATURE: Vito Mcbride MD PATIENT NAME: Olga Lindsey DATE: April 19, 2022 MRN (more content not included)... [facility] 04-19-2022 Note HNO ID: [id number] Author: Interface Note Service: ? Author Type: ? Type: Progress Notes Filed: 04/19/2022 3:06 AM Note Text: Epic Scheduled Downtime: 04/19/2022 12:30:16 AM to 04/19/2022 1:50:00 AM [facility] 04-18-2022 Note HNO ID: [id number] Author: Vito Mcbride MD Service: Hospital Medicine Author Type: Physician Type: Progress Notes Filed: 04/18/2022 6:25 PM Note Text: DEPARTMENT OF HOSPITAL MEDICINE PROGRESS NOTE SERVICE DATE: 04/18/2022 SERVICE TIME: 9:20 AM Hospital Medicine/Primary Attending: Vito Mcbride MD NIGHT AND WEEKEND COVERAGE: After 7pm please page [phone] CHIEF COMPLAINT: NSTEMI. CAD SUBJECTIVE: Denies any chest pain or shortness of breath today. No nausea or vomiting. No bleeding OBJECTIVE: PHYSICAL EXAM: BP 154/65 Pulse 58 Temp (Src) 97.3 (Oral) Resp 20 Ht 5' 10 (1.78m) Wt 216 lb 12.8 oz (98.3kg) SpO2 100% BMI 31.11 kg/(m2). O2 Therapy: Room Air GENERAL: Alert, no distress, cooperative, SKIN: Skin color, texture, turgor warm. OROPHARYNX: Lips, mucosa, and tongue moist LUNGS: Lungs clear to auscultation, Air entry good, Unlabored breathing. CARDIAC: Normal S1 and S2; no rubs, murmurs, or gallops ABDOMEN: Abdomen soft, non-tender, non-distended, BS normal EXTREMITIES: Edema in bilateral lower extremities. NEURO: Awake and alert. Moving all 4 limbs MEDICATIONS: Current Facility-Administered Medications Medication Dose Route Frequency heparin iv infusion 25,000 units in NaCl 0.45% 250 mL LOW DOSE/ACS NOMOGRAM 0-3,000 Units/hr INTRAVENOUS CONTINUOUS And heparin RATE CHANGE bolus 1,000-4,000 Units for subtherapeutic PTTAC results 1,000-4,000 Units INTRAVENOUS PRN morphine 4 mg injection 4 mg INTRAVENOUS q 4 H PRN carBAMazepine 200 mg tab(s) (TEGretol) 200 mg ORAL TID amLODIPine 5 mg tab(s) (NORVASC) 5 mg ORAL DAILY hydroCHLOROthiazide 25 mg tab(s) 25 mg ORAL DAILY levothyroxine 25 mcg tab(s) (SYNTHROID) 25 mcg ORAL DAILY (6 AM) carvedilol 6.25 mg tab(s) (COREG) 6.25 mg ORAL BID w MEALS NaCl 0.9% iv flush bag 20 mL INTRAVENOUS PRN NaCl 0.9% iv infusion 75 mL/hr INTRAVENOUS CONTINUOUS aspirin 81 mg chewable tab(s) 81 mg ORAL DAILY atorvastatin 40 mg tab(s) (LIPITOR) 40 mg ORAL AT BEDTIME mupirocin 2 % 0.5 g nasal ointment (BACTROBAN) 0.5 g NASAL BID DATA: Diagnostic tests reviewed for today's visit: CBC, Coags, BMP, Mg, Phos Recent Labs 04/18/22 0449 04/17/22 2145 04/17/22 1535 04/17/22 1216 04/17/22 0650 04/17/22 0136 WBC 6.87 -- -- -- -- 7.09 HB 12.0* -- -- -- -- 12.4* HCT 35.7* -- -- -- -- 36.6* PLT 164 -- -- -- -- 154 INR -- -- -- -- -- 1.0 APTT 87.4* 62.4* 47.0* -- < > 61.5* NA 133* -- -- 132* -- -- K 4.0 -- -- 3.8 -- -- CHLOR 99 -- -- 97 -- -- CO2 25 -- -- 25 -- -- BUN 21 -- -- 14 -- -- CREAT 0.76 -- -- 0.70* -- -- GLUC 93 -- -- 110* -- -- CA 9.8 -- -- 10.0 -- -- < > = values in this interval not displayed. Liver Function, Amylase, AND Lipase Recent Labs 04/17/22 1216 TPROT 6.0* ALB 3.8* ALT 15 AST 18 ALKPHOS 75 TBILI 0.3 Cardiac Enzymes Heme: Recent Labs 04/17/22 1216 FE 126 TIBC 217* TRANSFERSAT 58.1* No results found for: UALBCR Assessment/Plan Patient Active Hospital Problem List: NSTEMI (non-ST elevated myocardial infarction) (HCC) (04/17/2022) Obesity, Class I, BMI 30-34.9 (04/17/2022) ASSESSMENT: Mr. Lindsey presented initially to [facility] on 04/15/2022 for exertional substernal chest pain and shortness of breath. 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 1. NSTEMI: C at [place]-left main-proximal 25%, distal 50%; mid [id number]-92%, proximal and mid - severe calcification; circumflex-ostial 75%, proximal- severe calcification, OM1-mid-50%; RCA-ostial 90%, distal 50%; LVEF 65% with mild mitral insufficiency On heparin drip. On aspirin, Coreg, amlodipine and statin. Evaluated cardiology and cardiothoracic surgery. Plan for CABG on 04/20. Pre-CABG work-up ordered by cardiothoracic surgery-bilateral carotid ultrasound CT chest. 2. Incidental finding of subpleural nodularities: LLL 1 cm and RLL 0.7 cm Needs follow-up CT chest 3. Incidental finding of right hepatic dome cystic lesion with punctate calcification: Needs follow-up imaging. 4. Incidental finding of T1 sclerotic focus 0.8 cm and left 10th rib 0.7 cm sclerotic focus Other medical conditions. 1. Hypertension:: On amlodipine, hydrochlorothiazide, and Coreg. 2. Hyperlipidemia: On lovastatin 3. Hypothyroidism: On Synthroid 4. Trigeminal neuralgia on colonoscopy PLAN: Continue current treatment. DC IV fluid discussed with cardiology Dr. Smith-likely to continue heparin drip until CABG. Discussed with Dr. Tamez regarding incidental finding of sclerotic region, pulmonary nodules and hepatic lesion. He recommended that dose findings can be followed up and worked up as outpatient not necessary the needs to be done before the CABG. [place] with patient and daughter at the bedside in detail about the possibilities of this (more content not included)... [facility] 04-18-2022 Note HNO ID: [id number] Author: Interface Note Service: ? Author Type: ? Type: Progress Notes Filed: 04/18/2022 4:23 AM Note Text: Epic Scheduled Downtime: 04/18/2022 12:00:37 AM to 04/18/2022 4:09:02 AM [facility] 04-17-2022 Note HNO ID: [id number] Author: Saman Eduardo MD Service: Thoracic Surgery Author Type: Physician Type: Plan of Care Filed: 04/17/2022 4:44 PM Note Text: Patient seen again just now. He is scheduled for CABG with Lex Salguero 04/20/2022 @ 0730. Patient said he will let family know. Surgical Discussion: I have discussed the benefits, risks, indications, and alternatives to surgery with the patient. Risks discussed include but are not limited to infection, bleeding, cardiac dysrhythmias, myocardial infarction, stroke, , blood clots, pneumonia, wound complications, wound infection, blood transfusion with associated risks of AIDS or Hepatitis, and the occasional need for reoperation for bleeding or other complications. Expected OR, ICU, hospitalization, and home recovery times were discussed. The patient states he understands, has no further questions, and wishes to proceed. [facility] 04-17-2022 Note HNO ID: [id number] Author: Keya Heart RN Service: Care Management Author Type: Registered Nurse Type: Care Mgt Initial Assessment Filed: 04/17/2022 4:07 PM Note Text: CARE MANAGEMENT: ASSESSMENT AND DISCHARGE PLAN SERVICE DATE: April 17, 2022 SERVICE TIME: 4:05 PM PRIMARY CARE PHYSICIAN: No primary care provider on file. Phone: None Primary Contact: Extended Emergency Contact Information Primary Emergency Contact: ZABRINA LINDSEY Address: [address] [place] [id number] Mobile Relation: Spouse ADMISSION STATUS: Inpatient Insurance Provider: MEDICARE A AND B NEEDS PRIOR TO DISCHARGE Needs Prior to Discharge: Home Care Order, To Be Determined POTENTIAL TRANSITION PLANS Home Care;To Be Determined Based on clinical judgement, Care Management will address the following needs: Medical Patient's perception of need for this admission: . ADVANCE DIRECTIVES Current Advance Directive: None Needle Polisher Attempted to Assist with AD Completion: Yes Action: Education Provided MS/BEHAVIOR Baseline Mental Status Prior to this Illness what was the patient's Baseline Mental Status?: Alert AND Oriented Prior to this illness, has anyone described the patient having any of the following behaviors?: Not Applicable Relationship of the informant to the patient:: Self READMISSION Last Discharge Date: 01/13/16 Is this Within the Past 30 days? From what level of care did patient present?: Home Last discharge within 30 days: No PATIENT SCREEN Patient/[place] [employer] Stated Goals: To have reduction in symptoms Under the care of a PCP?: No Does the patient have transportation upon discharge?: Yes Use of any community resources?: No Does the patient have a stable and supportive living arrangement and home setting?: Yes Are there any potential risks or gaps identified by risk/functional/fall,etc. scores in the EMR?: No Any potential risks related to substance abuse and/or behavioral health?: No Based on clinical judgement, Care Management will address the following needs: Medical CAREGIVER ASSESSMENT Caregiver is ready, willing and able to meet the patient's needs as recommended by the inter-professional team:: No Caregiver needed No social discharge barriers identified at this time. No behavioral/cognitive discharge barriers identified at this time. No functional discharge barriers identified at this time. FREEDOM OF CHOICE EXPLAINED: [place] of Choice Given: Yes Level of Care Discussed: Home Care Financial Disclosure Provided: Yes Financial Disclosure Comments: [facility] Are you interested in bedside delivery of your medications? Yes ASSESSMENT AND PLAN: Spoke with pt at the bedside. Pt from home with indept. Per notes plan for CABG. Pt is agreeable to [facility] post op if medically stable to return home with [facility]. [facility] is able to accept. CM to follow clinical progress. SIGNATURE: Keya Heart RN PATIENT NAME: Olga Lindsey DATE: April 17, 2022 TIME: 3:59 PM CONTACT #: [phone] [facility] documented as of this encounter (statuses as of 04/30/2022) [facility]03-10-2023 History of Past illness Narrative* Problem Noted Date Resolved Date NSTEMI (non-ST elevated myocardial infarction) 0 04/17/2022 04/30/2022 Closed nondisplaced fracture of styloid process of right ulna 03/25/2015 10/24/2015 documented as of this encounter (statuses as of 05/01/2022) [address]10-2023 History of Past illness Narrative* Problem Noted Date Resolved Date NSTEMI (non-ST elevated myocardial infarction) 0 04/17/2022 04/30/2022 Closed nondisplaced fracture of styloid process of right ulna 03/25/2015 10/24/2015 documented as of this encounter (statuses as of 05/03/2022) [address]-2023 History of Past illness Narrative* Problem Noted Date Resolved Date NSTEMI (non-ST elevated myocardial infarction) 0 04/17/2022 04/30/2022 Closed nondisplaced fracture of styloid process of right ulna 03/25/2015 10/24/2015 documented as of this encounter (statuses as of 05/05/2022) [address]-2023 History of Past illness Narrative* Problem Noted Date Resolved Date NSTEMI (non-ST elevated myocardial infarction) 0 04/17/2022 04/30/2022 Closed nondisplaced fracture of styloid process of right ulna 03/25/2015 10/24/2015 documented as of this encounter (statuses as of 05/07/2022) [address]-2023 History of Past illness Narrative* Problem Noted Date Resolved Date NSTEMI (non-ST elevated myocardial infarction) 0 04/17/2022 04/30/2022 Closed nondisplaced fracture of styloid process of right ulna 03/25/2015 10/24/2015 documented as of this encounter (statuses as of 05/08/2022) [address]-2023 History of Past illness Narrative* Problem Noted Date Resolved Date NSTEMI (non-ST elevated myocardial infarction) 0 04/17/2022 04/30/2022 Closed nondisplaced fracture of styloid process of right ulna 03/25/2015 10/24/2015 documented as of this encounter (statuses as of 05/08/2022) [address]-2023 History of Past illness Narrative* Problem Noted Date Resolved Date NSTEMI (non-ST elevated myocardial infarction) 0 04/17/2022 04/30/2022 Closed nondisplaced fracture of styloid process of right ulna 03/25/2015 10/24/2015 documented as of this encounter (statuses as of 05/12/2022) [address]2023 History of Past illness Narrative* Problem Noted Date Resolved Date NSTEMI (non-ST elevated myocardial infarction) 0 04/17/2022 04/30/2022 Closed nondisplaced fracture of styloid process of right ulna 03/25/2015 10/24/2015 documented as of this encounter (statuses as of 05/12/2022) [address]2023 History of Past illness Narrative* Problem Noted Date Resolved Date NSTEMI (non-ST elevated myocardial infarction) 0 04/17/2022 04/30/2022 Closed nondisplaced fracture of styloid process of right ulna 03/25/2015 10/24/2015 documented as of this encounter (statuses as of 05/12/2022) [address]2023 History of Past illness Narrative* Problem Noted Date Resolved Date NSTEMI (non-ST elevated myocardial infarction) 0 04/17/2022 04/30/2022 Closed nondisplaced fracture of styloid process of right ulna 03/25/2015 10/24/2015 documented as of this encounter (statuses as of 05/13/2022) [address]-2023 History of Past illness Narrative* Problem Noted Date Resolved Date NSTEMI (non-ST elevated myocardial infarction) 0 04/17/2022 04/30/2022 Closed nondisplaced fracture of styloid process of right ulna 03/25/2015 10/24/2015 documented as of this encounter (statuses as of 05/13/2022) [address]2023 History of Past illness Narrative* Problem Noted Date Resolved Date NSTEMI (non-ST elevated myocardial infarction) 0 04/17/2022 04/30/2022 Closed nondisplaced fracture of styloid process of right ulna 03/25/2015 10/24/2015 documented as of this encounter (statuses as of 05/13/2022) [address]-2023 History of Past illness Narrative* Problem Noted Date Resolved Date NSTEMI (non-ST elevated myocardial infarction) 0 04/17/2022 04/30/2022 Closed nondisplaced fracture of styloid process of right ulna 03/25/2015 10/24/2015 documented as of this encounter (statuses as of 05/14/2022) [address]-2023 History of Past illness Narrative* Problem Noted Date Resolved Date NSTEMI (non-ST elevated myocardial infarction) 0 04/17/2022 04/30/2022 Closed nondisplaced fracture of styloid process of right ulna 03/25/2015 10/24/2015 documented as of this encounter (statuses as of 05/15/2022) [address]10-2023 History of Past illness Narrative* Problem Noted Date Resolved Date NSTEMI (non-ST elevated myocardial infarction) 0 04/17/2022 04/30/2022 Closed nondisplaced fracture of styloid process of right ulna 03/25/2015 10/24/2015 documented as of this encounter (statuses as of 05/16/2022) [address]10-2023 History of Past illness Narrative* Problem Noted Date Resolved Date NSTEMI (non-ST elevated myocardial infarction) 0 04/17/2022 04/30/2022 Closed nondisplaced fracture of styloid process of right ulna 03/25/2015 10/24/2015 documented as of this encounter (statuses as of 05/18/2022) [address]10-2023 History of Past illness Narrative* Problem Noted Date Resolved Date NSTEMI (non-ST elevated myocardial infarction) 0 04/17/2022 04/30/2022 Closed nondisplaced fracture of styloid process of right ulna 03/25/2015 10/24/2015 documented as of this encounter (statuses as of 05/18/2022) [address]10-2023 History of Past illness Narrative* Problem Noted Date Resolved Date NSTEMI (non-ST elevated myocardial infarction) 0 04/17/2022 04/30/2022 Closed nondisplaced fracture of styloid process of right ulna 03/25/2015 10/24/2015 documented as of this encounter (statuses as of 05/19/2022) [address]-2023 History of Past illness Narrative* Problem Noted Date Resolved Date NSTEMI (non-ST elevated myocardial infarction) 0 04/17/2022 04/30/2022 Closed nondisplaced fracture of styloid process of right ulna 03/25/2015 10/24/2015 documented as of this encounter (statuses as of 05/21/2022) [address]2023 History of Past illness Narrative* Problem Noted Date Resolved Date NSTEMI (non-ST elevated myocardial infarction) 0 04/17/2022 04/30/2022 Closed nondisplaced fracture of styloid process of right ulna 03/25/2015 10/24/2015 documented as of this encounter (statuses as of 05/21/2022) [address]-2023 History of Past illness Narrative* Problem Noted Date Resolved Date NSTEMI (non-ST elevated myocardial infarction) 0 04/17/2022 04/30/2022 Closed nondisplaced fracture of styloid process of right ulna 03/25/2015 10/24/2015 documented as of this encounter (statuses as of 05/22/2022) [address]-2023 History of Past illness Narrative* Problem Noted Date Resolved Date NSTEMI (non-ST elevated myocardial infarction) 0 04/17/2022 04/30/2022 Closed nondisplaced fracture of styloid process of right ulna 03/25/2015 10/24/2015 documented as of this encounter (statuses as of 05/22/2022) [address]10-2023 History of Past illness Narrative* Problem Noted Date Resolved Date NSTEMI (non-ST elevated myocardial infarction) 0 04/17/2022 04/30/2022 Closed nondisplaced fracture of styloid process of right ulna 03/25/2015 10/24/2015 documented as of this encounter (statuses as of 05/26/2022) [address]10-2023 History of Past illness Narrative* Problem Noted Date Resolved Date NSTEMI (non-ST elevated myocardial infarction) 0 04/17/2022 04/30/2022 Closed nondisplaced fracture of styloid process of right ulna 03/25/2015 10/24/2015 documented as of this encounter (statuses as of 05/28/2022) [address]23 History of Past illness Narrative* Problem Noted Date Resolved Date NSTEMI (non-ST elevated myocardial infarction) 0 04/17/2022 04/30/2022 Closed nondisplaced fracture of styloid process of right ulna 03/25/2015 10/24/2015 documented as of this encounter (statuses as of 05/28/2022) [address]10-[address]23 History of Past illness Narrative* Problem Noted Date Resolved Date NSTEMI (non-ST elevated myocardial infarction) 0 04/17/2022 04/30/2022 Closed nondisplaced fracture of styloid process of right ulna 03/25/2015 10/24/2015 documented as of this encounter (statuses as of 06/03/2022) [address]10-[address]23 History of Past illness Narrative* Problem Noted Date Resolved Date NSTEMI (non-ST elevated myocardial infarction) 0 04/17/2022 04/30/2022 Closed nondisplaced fracture of styloid process of right ulna 03/25/2015 10/24/2015 documented as of this encounter (statuses as of 06/03/2022) [address]23 History of Past illness Narrative* Problem Noted Date Resolved Date NSTEMI (non-ST elevated myocardial infarction) 0 04/17/2022 04/30/2022 Closed nondisplaced fracture of styloid process of right ulna 03/25/2015 10/24/2015 documented as of this encounter (statuses as of 06/10/2022) [address]23 History of Past illness Narrative* Problem Noted Date Resolved Date NSTEMI (non-ST elevated myocardial infarction) 0 04/17/2022 04/30/2022 Closed nondisplaced fracture of styloid process of right ulna 03/25/2015 10/24/2015 documented as of this encounter (statuses as of 07/25/2022) [address]10-[address]23 NoteHNO ID: [id number] Author: Vito Mcbride MD Service: Hospital Medicine Author Type: Physician Type: Progress Notes Filed: 04/17/2022 7:11 PM Note Text: DEPARTMENT OF HOSPITAL MEDICINE PROGRESS NOTE SERVICE DATE: 04/17/2022 SERVICE TIME: 7:33 AM Hospital Medicine/Primary Attending: Vito Mcbride MD NIGHT AND WEEKEND COVERAGE: After 7pm please page [phone] CHIEF COMPLAINT: NSTEMI SUBJECTIVE: Reported he was having chest pain with exertion and shortness of breath after about walking 100 feet and would resolve with rest. Will radiate to bilateral arm. No cough. No swelling the legs or calf pain. No fever or chills. He walked around 16 feet and did not feel any shortness of breath but felt some pain in the chest. Denies any bleeding OBJECTIVE: PHYSICAL EXAM: BP 120/84 Pulse 60 Temp (Src) 97.7 (Oral) Resp 16 Ht 5' 10 (1.78m) Wt 216 lb 12.8 oz (98.3kg) SpO2 98% BMI 31.11 kg/(m2). O2 Therapy: Room Air GENERAL: Alert, no distress, cooperative, SKIN: Skin color, texture, turgor warm. OROPHARYNX: Lips, mucosa, and tongue moist LUNGS: Lungs clear to auscultation, Air entry good, Unlabored breathing. CARDIAC: Normal S1 and S2; no rubs, murmurs, or gallops ABDOMEN: Abdomen soft, non-tender, non-distended, BS normal EXTREMITIES: No edema. NEURO: Awake and alert. Moving all 4 limbs MEDICATIONS: Current Facility-Administered Medications Medication Dose Route Frequency heparin iv infusion 25,000 units in NaCl 0.45% 250 mL LOW DOSE/ACS NOMOGRAM 0-3,000 Units/hr INTRAVENOUS CONTINUOUS And heparin RATE CHANGE bolus 1,000-4,000 Units for subtherapeutic PTTAC results 1,000-4,000 Units INTRAVENOUS PRN morphine 4 mg injection 4 mg INTRAVENOUS q 4 H PRN carBAMazepine 200 mg tab(s) (TEGretol) 200 mg ORAL TID lisinopril 40 mg tab(s) (ZESTRIL) 40 mg ORAL DAILY amLODIPine 5 mg tab(s) (NORVASC) 5 mg ORAL DAILY hydroCHLOROthiazide 25 mg tab(s) 25 mg ORAL DAILY lovastatin 20 mg tab(s) (MEVACOR) 20 mg ORAL AT BEDTIME levothyroxine 25 mcg tab(s) (SYNTHROID) 25 mcg ORAL DAILY (6 AM) carvedilol 6.25 mg tab(s) (COREG) 6.25 mg ORAL BID w MEALS NaCl 0.9% iv flush bag 20 mL INTRAVENOUS PRN NaCl 0.9% iv infusion 75 mL/hr INTRAVENOUS CONTINUOUS DATA: Diagnostic tests reviewed for today's visit: CBC, Coags, BMP, Mg, Phos Recent Labs 04/17/22 0136 WBC 7.09 HB 12.4* HCT 36.6* PLT 154 INR 1.0 APTT 61.5* Liver Function, Amylase, AND Lipase Cardiac Enzymes Heme: No results for input(s): RETICP, ABSRETIC, LD, ALEX, FE, TIBC, TRANSFERSAT in the last 24 hours. No results found for: UALBCR Assessment/Plan Patient Active Hospital Problem List: NSTEMI (non-ST elevated myocardial infarction) (HCC) (04/17/2022) ASSESSMENT: Mr. Lindsey presented initially to [facility] on 04/15/2022 for exertional substernal chest pain and shortness of breath. 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 1. NSTEMI: LHC at [place]-left main-proximal 25%, distal 50%; mid EKB-eguiut-16%, proximal and mid - severe calcification; circumflex-ostial 75%, proximal- severe calcification, OM1-mid-50%; RCA-ostial 90%, distal 50%; LVEF 65% with mild mitral insufficiency On heparin drip. On aspirin, Coreg, amlodipine and statin. Evaluated cardiology and cardiothoracic surgery. Plan for CABG on 04/20. Pre-CABG work-up ordered by cardiothoracic surgery-bilateral carotid ultrasound CT chest. 2. Incidental finding of subpleural nodularities: LLL 1 cm and RLL 0.7 cm Needs follow-up CT chest 3. Incidental finding of right hepatic dome cystic lesion with punctate calcification: Needs follow-up imaging. 4. Incidental finding of T1 sclerotic focus 0.8 cm and left 10th rib 0.7 cm sclerotic focus Other medical conditions. 1. Hypertension:: On amlodipine, hydrochlorothiazide, and Coreg. 2. Hyperlipidemia: On lovastatin 3. Hypothyroidism: On Synthroid 4. Trigeminal neuralgia on colonoscopy PLAN: Continue current treatment. Consider Heme-onc opinion regarding incidental finding of bony lesion as well as lung nodules Tentative plan for CABG next week VTE Prophylaxis: Patient is already anti-coagulated. Disposition: To be determined Plan of care discussed with: Provider, RN, Patient SIGNATURE: Vito Mcbride MD PATIENT NAME: Olga Lindsey DATE: April 17, 2022 TIME: 7:33 AM [id number] of Past illness Narrative* Problem Noted Date Resolved Date Closed nondisplaced fracture of styloid process of right ulna 03/25/2015 10/24/2015 documented as of this encounter (statuses as of 04/17/2022) [facility] Coronary artery disease involving koi coronary artery of koi heart without angina pectoris- Primary NSTEMI (non-ST elevated myocardial infarction) (HCC) Acute myocardial infarction, subendocardial infarction, episode of care unspecified Coronary artery disease involving koi coronary artery of koi heart without angina pectoris NSTEMI (non-ST elevated myocardial infarction) (HCC) Acute myocardial infarction, subendocardial infarction, episode of care unspecified [facility] 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 Acute blood loss anemia Acute posthemorrhagic anemia [facility] Diagnosis SOB (shortness of breath) Shortness of breath [facility]* Visit Details Visit Type -SN ABBREV SOC 1S T VISIT Discipline -Fdc Problems Problem Description Start Date Status Goals Interve ntions Medication Education Disciplines: Skilled Services 05/06/2022 Active 1 goal linked to scheduled/document ed intervention 1 goal intervention scheduled/documente d in this visit Sepsis Disciplines: Skilled Services 05/06/2022 Active 1 goal linked to scheduled/document ed intervention 1 goal intervention scheduled/documente d in this visit Infection Control Disciplines: Skilled Services 05/06/2022 Active 1 goal linked to scheduled/document ed intervention 1 goal intervention scheduled/documente d in this visit Physician Specific Parameters Disciplines: Skilled Services 05/06/2022 Active 1 goal linked to scheduled/document ed intervention 1 goal intervention scheduled/documente d in this visit Pain Disciplines: Skilled Services 05/06/2022 Active 1 goal linked to scheduled/document ed intervention 1 goal intervention scheduled/documente d in this visit Nutrition/Hydra tion Disciplines: Skilled Services 05/06/2022 Active 1 goal linked to scheduled/document ed intervention 1 goal intervention scheduled/documente d in this visit Discharge Disciplines: Skilled Services 05/06/2022 Active 1 goal linked to scheduled/document ed intervention 1 goal intervention scheduled/documente d in this visit Advance Directives Disciplines: Skilled Services 05/06/2022 Active 1 goal linked to scheduled/document ed intervention 1 goal intervention scheduled/documente d in this visit SN Cardiac Procedure/Surge ry Disciplines: 05/06/2022 Active 1 goal linked to scheduled/document ed intervention 1 goal intervention scheduled/documente d in this visit SN Integumentary/W ounds Disciplines: 05/06/2022 Active 1 goal linked to scheduled/document ed intervention 2 goal interventions scheduled/documente d in this visit SN Learning Assessment Disciplines: 05/06/2022 Active 1 goal linked to scheduled/document ed intervention 1 goal intervention scheduled/documente d in this visit Goals Goal Associated Problem Outcome Goal Met? Visit Notes Patient/caregiver will demonstrate ability to obtain, store, identify and administer ordered medications, keep accurate medication list in home, and adhere to medication schedule Description: Patient/caregiver will demonstrate ability to obtain, store, identify and administer ordered medications, keep accurate medication list in home, and adhere to medication schedule by 07/04/22. Medication Education No Patient/caregiver will be able to identify and report symptoms of sepsis Description: Patient/caregiver will be able to identify signs/symptoms of sepsis infection and will verbalize actions to take if suspected by 07/04/22. Sepsis No Prevent transmission of communicable diseases Description: Patient, caregivers, and staff will maintain precautions while infection present. Infection Control No Patient to maintain parameters within physician-specified ranges throughout certification period Physician Specific Parameters No Manage Pain Description: Patient/caregiver will verbalize knowledge and understanding of appropriate techniques to control pain, including pain medication and non-pharmacological techniques. Patient will verbalize or demonstrate an acceptable level of pain as evidenced by a pain score of 0/10 and improvement in ability to perform activities of daily living to be achieved by 07/04/22. Pain No Manage Nutrition/Hydration Description: Patient/caregiver will verbalize/demonstrate knowledge of prescribed diet and/or healthy nutrition to be achieved by 07/04/22. Nutrition/Hydration No Manage discharge planning Description: Patient/caregiver will verbalize understanding of ongoing discharge plan provided related to disease management, arrangements for outpatient and/or community services, obtaining medications, supplies, and DME, as needed throughout certification period. Discharge No Patient/caregiver will make healthcare providers aware of and any changes to Advance Directives throughout certification period Advance Directives No Patient will have an uncomplicated recovery post cardiac procedure/surgery Description: Patient/caregiver will demonstrate understanding of aftercare post cardiac procedure/surgery as evidenced by an uncomplicated recovery to be achieved by 05/25/22. SN Cardiac Procedure/Surgery No Patient/Caregiver will have improved healing and be free of signs and symptoms of complications Description: Patient/caregiver will verbalize management strategies to promote wound healing & prevent complications as evidenced by improved healing & no complications by 05/26/22. SN Integumentary/Wounds No Demonstrate understanding of education Description: Patient and/or caregiver will verbalize understanding of educational instruction provided throughout certification period. SN Learning Assessment No Interventions Intervention Associated Problem/Goal Status Variance Visit Notes Medication Education Description: Evaluate/instruct patient/caregiver on obtaining, storing, identifying and administering ordered medications as well as keeping accurate medication list in the home and adhereing to medication schedule Problem:Medication Education Goal:Patient/caregive r will demonstrate ability to obtain, store, identify and administer ordered medications, keep accurate medication list in home, and adhere to medication schedule Completed Patient and Caregiver instructed on importance of keeping accurate medication list in home and adhering to medication schedule. Risk of Sepsis Description: Patient is at risk for sepsis. Monitor closely for s/s of sepsis. Problem:Sepsis Goal:Patient/caregive r will be able to identify and report symptoms of sepsis Completed Specified Precautions for COVID-19: Contact, Droplet, plus eyewear Problem:Infection Control Goal:Prevent transmission of communicable diseases Completed COVID precautions maintained. Patient and Caregiver instructed on COVID-19 infection control and safety precautions: +Stay at home except to get medical care +When leaving home to get medical care +Avoid using public transportation +Call your doctor or other health care provider prior to your visit to inform them that you have or may have COVID-19 +Separate yourself from other people and animals in your home +Stay in a specific room and use a separate bathroom if available +Avoid sharing personal household items such as towels, cups, or eating utensils +Wash hands before and after caring for animals if no one else is able to care for them +Wear a face mask when you must be around other people or pets and when going out for medical care, +Discard disposable masks and gloves; wash cloth masks daily +Cover your coughs and sneezes with a tissue or cough/sneeze into your elbow +Clean your hands often with soap and water for at least 20 seconds or with an alcohol based hand materials mgmt tech containing at least 60% alcohol, +Clean all high-touch surfaces every day such as counters, tabletops, doorknobs, phones, and bathroom fixtures, +Seek prompt medical attention if your illness is worsening, such as increased difficulty breathing, +Continue home isolation until your healthcare provider and state/local officials tell you to discontinue and Wear disposable gloves, if available, while handling soiled or contaminated items and wash laundry thoroughly +Always wash hands after removing gloves SPO2 Description: Notify Dr. Javier Alex MD if pulse ox is <92% at rest. Problem:Physician Specific Parameters Goal:Patient to maintain parameters within physician-specified ranges throughout certification period Completed Instruct on pain and instruct on strategies to control pain Problem:Pain Goal:Manage Pain Completed patient instructed on techniques to control pain including Pharmacological measures and Non-Pharmacological measures; rest, distraction and breathing/relaxation. Define patient s appetite/hydration status and implement strategies to improve compliance with prescribed diet and/or healthy nutrition. Problem:Nutrition/Hyd ration Goal:Manage Nutrition/Hydration Completed instructed patient on implementing strategies to comply with healthy nutrition and adequate hydration Instruct on ongoing discharge plan Problem:Discharge Goal:Manage discharge planning Completed Ongoing Discharge plan: Discharge plan discussed with patient including frequency and duration for home SN and plan for transition to: caregiver assistance. Determine patient's Advance Directive Status Description: Patient does not have advance directives. Patient/Caregiver declined Advance Directive information. Problem:Advance Directives Goal:Patient/caregive r will make healthcare providers aware of and any changes to Advance Directives throughout certification period Completed Discussed Advance Directives with Patient and/or Caregiver. Referred patient to Home Care handbook for further information on Healthcare DPOA & Living Will. 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 Problem:SN Cardiac Procedure/Surgery Goal:Patient will have an uncomplicated recovery post cardiac procedure/surgery Completed patient and caregiver assessed and instructed on keeping all incisions clean with mild soap and water and leave open to air, allow dermabond to slough off on it's own, signs & symptoms of complications: infection such as fever of 101 or greater, chills, redness and/or drainage of incision site, nausea/vomiting, and/or malaise, activity guidelines: no raising arms greater than 90 degrees, no lifting items >8-10lbs and energy conservation, use of incentive spirometer, record daily weights, temperature, and BP and instruct heart health diet. Instruct patient/caregiver healing process and management measures to promote healing and avoid complications Problem:SN Integumentary/Wounds Goal:Patient/Caregive r will have improved healing and be free of signs and symptoms of complications Completed patient and caregiver instructed on the following: healing process, signs and symptoms of infection and importance of good nutrition. Instruct Patient/Caregiver on wound/incision care procedure as ordered by physician Problem:SN Integumentary/Wounds Goal:Patient/Caregive r will have improved healing and be free of signs and symptoms of complications Completed patient and caregiver instructed on wound care as ordered by Physician. Instruct and educate on knowledge deficits Problem:SN Learning Assessment Goal:Demonstrate understanding of education Completed patient and caregiver verbalize and/or demonstrate understanding of nursing education completed today. Education methods include: verbal cues. Further education required to improve knowledge and compliance with cardiac disease management, fall prevention/home safety strategies, incision/wound care management, medication management, nutrition and pain management. [facility]* Visit Details Visit Type -PT EVAL Discipline -Physical Therapy Problems Problem Description Start Date Status Goals Interve ntions Medication Education Disciplines: Skilled Services 05/06/2022 Active 1 goal linked to scheduled/docume nted intervention 1 goal intervention scheduled/documen heath in this visit Sepsis Disciplines: Skilled Services 05/06/2022 Active 1 goal linked to scheduled/docume nted intervention 1 goal intervention scheduled/documen heath in this visit PT Referral Disciplines: Skilled Services 05/06/2022 Resolved on 05/07/2022 1 goal linked to scheduled/docume nted intervention 1 goal intervention scheduled/documen heath in this visit Physician Specific Parameters Disciplines: Skilled Services 05/06/2022 Active 1 goal linked to scheduled/docume nted intervention 1 goal intervention scheduled/documen heath in this visit Risk for Falls Disciplines: Skilled Services 05/06/2022 Active 1 goal linked to scheduled/docume nted intervention 1 goal intervention scheduled/documen heath in this visit Pain Disciplines: Skilled Services 05/06/2022 Active 1 goal linked to scheduled/docume nted intervention 1 goal intervention scheduled/documen heath in this visit PT Impaired Aerobic Capacity Disciplines: PT 05/07/2022 Active 1 goal linked to scheduled/docume nted intervention 1 goal intervention scheduled/documen heath in this visit PT Learning Assessment Disciplines: PT 05/07/2022 Active 1 goal linked to scheduled/docume nted intervention 1 goal intervention scheduled/documen heath in this visit PT Cardiovascular Disease Disciplines: PT 05/07/2022 Active 1 goal linked to scheduled/docume nted intervention 1 goal intervention scheduled/documen heath in this visit Goals Goal Associated Problem Outcome Goal Met? Visit Notes Patient/caregiver will demonstrate ability to obtain, store, identify and administer ordered medications, keep accurate medication list in home, and adhere to medication schedule Description: Patient/caregiver will demonstrate ability to obtain, store, identify and administer ordered medications, keep accurate medication list in home, and adhere to medication schedule by 07/04/22. Medication Education No Patient/caregiver will be able to identify and report symptoms of sepsis Description: Patient/caregiver will be able to identify signs/symptoms of sepsis infection and will verbalize actions to take if suspected by 07/04/22. Sepsis No Patient will be referred to additional discipline as needed PT Referral Completed Yes Patient to maintain parameters within physician-specified ranges throughout certification period Physician Specific Parameters No Manage Risk for falls Description: Patient/caregiver will verbalize knowledge of individualized fall prevention strategies by 07/04/22. Risk for Falls No Manage Pain Description: Patient/caregiver will verbalize knowledge and understanding of appropriate techniques to control pain, including pain medication and non-pharmacological techniques. Patient will verbalize or demonstrate an acceptable level of pain as evidenced by a pain score of 0/10 and improvement in ability to perform activities of daily living to be achieved by 07/04/22. Pain No Improved Aerobic Capacity Description: LTG: Patient will demonstrate improved aerobic capacity to meet functional goals as evidenced by Rate of Percieved Exertion (RPE) of 3/10 during walking activity, to be achieved by 05/23/22. PT Impaired Aerobic Capacity No Demonstrate understanding of education Description: Patient and/or caregiver will understand educational instruction to be achieved by 05/23/22. PT Learning Assessment No Manage Cardiac Interventions Description: Improve patient and/or caregiver understanding of post surgical and/or non-surgical cardiac intervention management as evidenced by patient and/or caregiver able to verbalize, demonstrate, and teach back instruction, to be achieved by 05/23/22. PT Cardiovascular Disease No Interventions Intervention Associated Problem/Goal Status Variance Visit Notes Medication Education Description: Evaluate/instruct patient/caregiver on obtaining, storing, identifying and administering ordered medications as well as keeping accurate medication list in the home and adhereing to medication schedule Problem:Medication Education Goal:Patient/caregive r will demonstrate ability to obtain, store, identify and administer ordered medications, keep accurate medication list in home, and adhere to medication schedule Completed Patient instructed on importance of keeping accurate medication list in home and adhering to medication schedule. Risk of Sepsis Description: Patient is at risk for sepsis. Monitor closely for s/s of sepsis. Problem:Sepsis Goal:Patient/caregive r will be able to identify and report symptoms of sepsis Completed PT evaluation and treatment Description: Evaluate and treat for the assessment of functional deficits and establishment of appropriate interventions and education, including recommendations for functional mobility training, balance training for fall reduction, and strengthening. Problem:PT Referral Goal:Patient will be referred to additional discipline as needed Completed SPO2 Description: Notify Dr. Javier Alex MD if pulse ox is <92% at rest. Problem:Physician Specific Parameters Goal:Patient to maintain parameters within physician-specified ranges throughout certification period Completed Instruct on individual fall risk factors and strategies to prevent falls and injuries caused by falls. Problem:Risk for Falls Goal:Manage Risk for falls Completed PT: Patient instructed on Eliminating Environmental Hazards: Keep pathways clear, Keep pets out of pathways, Remove unsafe rugs and Move furniture from pathways Managing Impaired Functional Mobility: Use assistive device(s): front wheeled walker Managing Pain Instruct on pain and instruct on strategies to control pain Problem:Pain Goal:Manage Pain Completed patient instructed on techniques to control pain including Pharmacological measures and Non-Pharmacological measures; rest and positioning/elevation . Physical Therapy Aerobic Capacity Training Problem:PT Impaired Aerobic Capacity Goal:Improved Aerobic Capacity Completed patient instructed on utilization of the Rate of Percieved Exertion (RPE) scale, to not exceed 3-6/10 indicating moderate to heavy intensity of activity. Developed, implemented, and instructed patient on physical therapy interventions completing 1-2 minutes of continuous, paced and physiologically monitored activity. Instruct and educate on knowledge deficits Problem:PT Learning Assessment Goal:Demonstrate understanding of education Completed patient verbalize and/or demonstrate understanding of physical therapy education including cardiac disease management, surgical precautions, pain management, fall prevention strategies, home safety, functional activity and home exercise program. Education methods include: verbal cues. Further education required to improve knowledge and compliance with surgical precautions, fall prevention strategies, home safety, functional activity and home exercise program. Instruct on self-management of post surgical and/or non-surgical cardiac intervention Problem:PT Cardiovascular Disease Goal:Manage Cardiac Interventions Completed patient and caregiver instructed on post-op management of use of RPE scale, energy conservation and exercise and activity guidelines. Instructed on precautions/restricti ons including: not raising arms higher than 90 degrees, not lifting > 10 lbs, no riding in the front of the car, no weight bearing with arms during transfers, no driving and use of pillow when coughing [facility]* Visit Details Visit Type -SN ABBREV SOC 2N D VISIT Discipline -Fdc Problems Problem Description Start Date Status Goals Interve ntions Medication Education Disciplines: Skilled Services 05/06/2022 Active 1 goal linked to scheduled/document ed intervention 1 goal intervention scheduled/documente d in this visit Sepsis Disciplines: Skilled Services 05/06/2022 Active 1 goal linked to scheduled/document ed intervention 1 goal intervention scheduled/documente d in this visit Infection Control Disciplines: Skilled Services 05/06/2022 Active 1 goal linked to scheduled/document ed intervention 1 goal intervention scheduled/documente d in this visit Physician Specific Parameters Disciplines: Skilled Services 05/06/2022 Active 1 goal linked to scheduled/document ed intervention 1 goal intervention scheduled/documente d in this visit Pain Disciplines: Skilled Services 05/06/2022 Active 1 goal linked to scheduled/document ed intervention 1 goal intervention scheduled/documente d in this visit Nutrition/Hydra tion Disciplines: Skilled Services 05/06/2022 Active 1 goal linked to scheduled/document ed intervention 1 goal intervention scheduled/documente d in this visit High Risk Medications Disciplines: Skilled Services 05/06/2022 Active 1 goal linked to scheduled/document ed intervention 1 goal intervention scheduled/documente d in this visit Discharge Disciplines: Skilled Services 05/06/2022 Active 1 goal linked to scheduled/document ed intervention 1 goal intervention scheduled/documente d in this visit SN Cardiac Procedure/Surge ry Disciplines: 05/06/2022 Active 1 goal linked to scheduled/document ed intervention 1 goal intervention scheduled/documente d in this visit SN Integumentary/W ounds Disciplines: 05/06/2022 Active 1 goal linked to scheduled/document ed intervention 2 goal interventions scheduled/documente d in this visit SN Learning Assessment Disciplines: 05/06/2022 Active 1 goal linked to scheduled/document ed intervention 1 goal intervention scheduled/documente d in this visit Goals Goal Associated Problem Outcome Goal Met? Visit Notes Patient/caregiver will demonstrate ability to obtain, store, identify and administer ordered medications, keep accurate medication list in home, and adhere to medication schedule Description: Patient/caregiver will demonstrate ability to obtain, store, identify and administer ordered medications, keep accurate medication list in home, and adhere to medication schedule by 07/04/22. Medication Education No Patient/caregiver will be able to identify and report symptoms of sepsis Description: Patient/caregiver will be able to identify signs/symptoms of sepsis infection and will verbalize actions to take if suspected by 07/04/22. Sepsis No Prevent transmission of communicable diseases Description: Patient, caregivers, and staff will maintain precautions while infection present. Infection Control No Patient to maintain parameters within physician-specified ranges throughout certification period Physician Specific Parameters No Manage Pain Description: Patient/caregiver will verbalize knowledge and understanding of appropriate techniques to control pain, including pain medication and non-pharmacological techniques. Patient will verbalize or demonstrate an acceptable level of pain as evidenced by a pain score of 0/10 and improvement in ability to perform activities of daily living to be achieved by 07/04/22. Pain No Manage Nutrition/Hydration Description: Patient/caregiver will verbalize/demonstrate knowledge of prescribed diet and/or healthy nutrition to be achieved by 07/04/22. Nutrition/Hydration No Patient/caregiver will teach back high risk medication side effect and precaution education High Risk Medications No Manage discharge planning Description: Patient/caregiver will verbalize understanding of ongoing discharge plan provided related to disease management, arrangements for outpatient and/or community services, obtaining medications, supplies, and DME, as needed throughout certification period. Discharge No Patient will have an uncomplicated recovery post cardiac procedure/surgery Description: Patient/caregiver will demonstrate understanding of aftercare post cardiac procedure/surgery as evidenced by an uncomplicated recovery to be achieved by 05/25/22. SN Cardiac Procedure/Surgery No Patient/Caregiver will have improved healing and be free of signs and symptoms of complications Description: Patient/caregiver will verbalize management strategies to promote wound healing & prevent complications as evidenced by improved healing & no complications by 05/26/22. SN Integumentary/Wounds No Demonstrate understanding of education Description: Patient and/or caregiver will verbalize understanding of educational instruction provided throughout certification period. SN Learning Assessment No Interventions Intervention Associated Problem/Goal Status Variance Visit Notes Medication Education Description: Evaluate/instruct patient/caregiver on obtaining, storing, identifying and administering ordered medications as well as keeping accurate medication list in the home and adhereing to medication schedule Problem:Medication Education Goal:Patient/caregive r will demonstrate ability to obtain, store, identify and administer ordered medications, keep accurate medication list in home, and adhere to medication schedule Completed Patient and Caregiver instructed on importance of keeping accurate medication list in home and adhering to medication schedule. Risk of Sepsis Description: Patient is at risk for sepsis. Monitor closely for s/s of sepsis. Problem:Sepsis Goal:Patient/caregive r will be able to identify and report symptoms of sepsis Completed Specified Precautions for COVID-19: Contact, Droplet, plus eyewear Problem:Infection Control Goal:Prevent transmission of communicable diseases Completed COVID precautions maintained. Patient and Caregiver instructed on COVID-19 infection control and safety precautions: +Stay at home except to get medical care +When leaving home to get medical care +Avoid using public transportation +Call your doctor or other health care provider prior to your visit to inform them that you have or may have COVID-19 +Separate yourself from other people and animals in your home +Stay in a specific room and use a separate bathroom if available +Avoid sharing personal household items such as towels, cups, or eating utensils +Wash hands before and after caring for animals if no one else is able to care for them +Wear a face mask when you must be around other people or pets and when going out for medical care, +Discard disposable masks and gloves; wash cloth masks daily +Cover your coughs and sneezes with a tissue or cough/sneeze into your elbow +Clean your hands often with soap and water for at least 20 seconds or with an alcohol based hand materials mgmt tech containing at least 60% alcohol, +Clean all high-touch surfaces every day such as counters, tabletops, doorknobs, phones, and bathroom fixtures, +Seek prompt medical attention if your illness is worsening, such as increased difficulty breathing, +Continue home isolation until your healthcare provider and state/local officials tell you to discontinue and Wear disposable gloves, if available, while handling soiled or contaminated items and wash laundry thoroughly +Always wash hands after removing gloves SPO2 Description: Notify Dr. Javier Alex MD if pulse ox is <92% at rest. Problem:Physician Specific Parameters Goal:Patient to maintain parameters within physician-specified ranges throughout certification period Completed Instruct on pain and instruct on strategies to control pain Problem:Pain Goal:Manage Pain Completed patient and caregiver instructed on techniques to control pain including Pharmacological measures and Non-Pharmacological measures; rest, distraction and breathing/relaxation. Define patient s appetite/hydration status and implement strategies to improve compliance with prescribed diet and/or healthy nutrition. Problem:Nutrition/Hyd ration Goal:Manage Nutrition/Hydration Completed instructed patient and caregiver on implementing strategies to comply with healthy nutrition and adequate hydration Antiplatelet- educated on high risk medication Problem:High Risk Medications Goal:Patient/caregive r will teach back high risk medication side effect and precaution education Completed patient and caregiver educated on taking medication(s) as prescribed by provider. Do not stop medication or alter doses without speaking with your provider. Discuss medication effectiveness or side effect concerns with your provider and home care team. Discuss all medications you are taking, even slbu-iuz-wbebjlk medicines, with your provider and pharmacist since many drugs can interact with antiplatelet medications. If you forget to take a dose, DO NOT take a double dose. Take the missed dose as soon as possible on the same day. DO NOT take a double dose the next day to make up for the missed dose. Watch for signs of abnormal or excessive bleeding and bruising (refer to Bleeding Precautions education). Call your health care provider right away if you suspect something is wrong. Instruct on ongoing discharge plan Problem:Discharge Goal:Manage discharge planning Completed Ongoing Discharge plan: Discharge plan discussed with patient and caregiver including frequency and duration for home SN and plan for transition to: caregiver assistance. 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 Problem:SN Cardiac Procedure/Surgery Goal:Patient will have an uncomplicated recovery post cardiac procedure/surgery Completed patient and caregiver assessed and instructed on keeping all incisions clean with mild soap and water and leave open to air, allow dermabond to slough off on it's own, signs & symptoms of complications: cardiac complications such as headache, dizziness, light-headedness, SOB, heart palpitations, chest pain, or chest pressure, use of incentive spirometer, record daily weights, temperature, and BP and instruct heart health diet. Instruct patient/caregiver healing process and management measures to promote healing and avoid complications Problem:SN Integumentary/Wounds Goal:Patient/Caregive r will have improved healing and be free of signs and symptoms of complications Completed patient and caregiver instructed on the following: healing process, signs and symptoms of infection and importance of good nutrition. Instruct Patient/Caregiver on wound/incision care procedure as ordered by physician Problem:SN Integumentary/Wounds Goal:Patient/Caregive r will have improved healing and be free of signs and symptoms of complications Completed patient and caregiver instructed on wound care as ordered by Physician. Instruct and educate on knowledge deficits Problem:SN Learning Assessment Goal:Demonstrate understanding of education Completed patient and caregiver verbalize and/or demonstrate understanding of nursing education completed today. Education methods include: verbal cues. Further education required to improve knowledge and compliance with cardiac disease management, depression/anxiety care management, fall prevention/home safety strategies, incision/wound care management, medication management and nutrition. documented in this encounter [facility] home Plan of care note* Visit Details Visit Type -SN ROUTINE Discipline -Fdc Problems Problem Description Start Date Status Goals Interve ntions Medication Education Disciplines: Skilled Services 05/06/2022 Active 1 goal linked to scheduled/document ed intervention 1 goal intervention scheduled/document ed in this visit Sepsis Disciplines: Skilled Services 05/06/2022 Active 1 goal linked to scheduled/document ed intervention 1 goal intervention scheduled/document ed in this visit Infection Control Disciplines: Skilled Services 05/06/2022 Resolved on 05/12/2022 1 goal linked to scheduled/document ed intervention OT Referral Disciplines: Skilled Services 05/06/2022 Active 1 goal linked to scheduled/document ed intervention Physician Specific Parameters Disciplines: Skilled Services 05/06/2022 Active 1 goal linked to scheduled/document ed intervention 1 goal intervention scheduled/document ed in this visit Risk for Falls Disciplines: Skilled Services 05/06/2022 Active 1 goal linked to scheduled/document ed intervention 1 goal intervention scheduled/document ed in this visit Pain Disciplines: Skilled Services 05/06/2022 Resolved on 05/12/2022 1 goal linked to scheduled/document ed intervention Nutrition/Hydr ation Disciplines: Skilled Services 05/06/2022 Active 1 goal linked to scheduled/document ed intervention 1 goal intervention scheduled/document ed in this visit High Risk Medications Disciplines: Skilled Services 05/06/2022 Active 1 goal linked to scheduled/document ed intervention 2 goal interventions scheduled/document ed in this visit Discharge Disciplines: Skilled Services 05/06/2022 Active 1 goal linked to scheduled/document ed intervention 1 goal intervention scheduled/document ed in this visit SN Cardiac Procedure/Surg nathan Disciplines: SN 05/06/2022 Active 1 goal linked to scheduled/document ed intervention 1 goal intervention scheduled/document ed in this visit SN Integumentary/ Wounds Disciplines: SN 05/06/2022 Active 1 goal linked to scheduled/document ed intervention 2 goal interventions scheduled/document ed in this visit SN Learning Assessment Disciplines: 05/06/2022 Active 1 goal linked to scheduled/document ed intervention 1 goal intervention scheduled/document ed in this visit Goals Goal Associated Problem Outcome Goal Met? Visit Notes Patient/caregiver will demonstrate ability to obtain, store, identify and administer ordered medications, keep accurate medication list in home, and adhere to medication schedule Description: Patient/caregiver will demonstrate ability to obtain, store, identify and administer ordered medications, keep accurate medication list in home, and adhere to medication schedule by 07/04/22. Medication Education In Progress No Patient/caregiver will be able to identify and report symptoms of sepsis Description: Patient/caregiver will be able to identify signs/symptoms of sepsis infection and will verbalize actions to take if suspected by 07/04/22. Sepsis In Progress No Prevent transmission of communicable diseases Description: Patient, caregivers, and staff will maintain precautions while infection present. Infection Control Completed Yes Patient will be referred to additional discipline as needed OT Referral In Progress No Patient to maintain parameters within physician-specified ranges throughout certification period Physician Specific Parameters In Progress No Manage Risk for falls Description: Patient/caregiver will verbalize knowledge of individualized fall prevention strategies by 07/04/22. Risk for Falls In Progress No Manage Pain Description: Patient/caregiver will verbalize knowledge and understanding of appropriate techniques to control pain, including pain medication and non-pharmacological techniques. Patient will verbalize or demonstrate an acceptable level of pain as evidenced by a pain score of 0/10 and improvement in ability to perform activities of daily living to be achieved by 07/04/22. Pain Completed Yes Manage Nutrition/Hydration Description: Patient/caregiver will verbalize/demonstrate knowledge of prescribed diet and/or healthy nutrition to be achieved by 07/04/22. Nutrition/Hydration In Progress No Patient/caregiver will teach back high risk medication side effect and precaution education High Risk Medications In Progress No Manage discharge planning Description: Patient/caregiver will verbalize understanding of ongoing discharge plan provided related to disease management, arrangements for outpatient and/or community services, obtaining medications, supplies, and DME, as needed throughout certification period. Discharge In Progress No Patient will have an uncomplicated recovery post cardiac procedure/surgery Description: Patient/caregiver will demonstrate understanding of aftercare post cardiac procedure/surgery as evidenced by an uncomplicated recovery to be achieved by 05/25/22. SN Cardiac Procedure/Surgery In Progress No Patient/Caregiver will have improved healing and be free of signs and symptoms of complications Description: Patient/caregiver will verbalize management strategies to promote wound healing & prevent complications as evidenced by improved healing & no complications by 05/26/22. SN Integumentary/Wounds In Progress No Demonstrate understanding of education Description: Patient and/or caregiver will verbalize understanding of educational instruction provided throughout certification period. SN Learning Assessment In Progress No Interventions Intervention Associated Problem/Goal Status Variance Visit Notes Medication Education Description: Evaluate/instruct patient/caregiver on obtaining, storing, identifying and administering ordered medications as well as keeping accurate medication list in the home and adhereing to medication schedule Problem:Medication Education Goal:Patient/caregiv er will demonstrate ability to obtain, store, identify and administer ordered medications, keep accurate medication list in home, and adhere to medication schedule Completed Patient instructed on adhering to medication schedule. Risk of Sepsis Description: Patient is at risk for sepsis. Monitor closely for s/s of sepsis. Problem:Sepsis Goal:Patient/caregiv er will be able to identify and report symptoms of sepsis Completed SPO2 Description: Notify Dr. Javier Alex MD if pulse ox is <92% at rest. Problem:Physician Specific Parameters Goal:Patient to maintain parameters within physician-specified ranges throughout certification period Completed Instruct on individual fall risk factors and strategies to prevent falls and injuries caused by falls. Problem:Risk for Falls Goal:Manage Risk for falls Completed SN: Patient and Caregiver instructed on Eliminating Environmental Hazards: Keep pathways clear, Keep pets out of pathways, Keep rooms and walkways well lit and Wear supportive shoes or non-skid socks Managing Impaired Functional Mobility: Use assistive device(s): rollator walker and Caregiver to provide assist with: Ambulation, Steps, Transfers and ADL/IADLs Define patient s appetite/hydration status and implement strategies to improve compliance with prescribed diet and/or healthy nutrition. Problem:Nutrition/Hy dration Goal:Manage Nutrition/Hydration Completed reinforced patient and caregiver on implementing strategies to comply with prescribed diet, healthy nutrition and adequate hydration Antiplatelet- educated on high risk medication Problem:High Risk Medications Goal:Patient/caregiv er will teach back high risk medication side effect and precaution education Completed patient educated on taking medication(s) as prescribed by provider. Do not stop medication or alter doses without speaking with your provider. Discuss medication effectiveness or side effect concerns with your provider and home care team. Discuss all medications you are taking, even flne-gwj-utnrzbw medicines, with your provider and pharmacist since many drugs can interact with antiplatelet medications. If you forget to take a dose, DO NOT take a double dose. Take the missed dose as soon as possible on the same day. DO NOT take a double dose the next day to make up for the missed dose. Watch for signs of abnormal or excessive bleeding and bruising (refer to Bleeding Precautions education). Call your health care provider right away if you suspect something is wrong. Anticoagulant- educated on high risk medication Problem:High Risk Medications Goal:Patient/caregiv er will teach back high risk medication side effect and precaution education Completed patient and caregiver educated on anticoagulant medication Eliquis Take your medication as instructed and at the same time each day. Do not stop medication or alter doses without speaking with your provider. Discuss medication effectiveness or side effect concerns with your provider and home care team. Discuss all medications you are taking, even nybt-pma-jzwflsn medicines, with your provider and pharmacist since many drugs can interact with anticoagulants. Tell anyone providing medical or dental care that you are taking an anticoagulant. DO NOT STOP your medication even for a minor procedure like dental work without first checking with the provider. If you forget to take a dose, DO NOT take a double dose. Take the missed dose as soon as possible on the same day. DO NOT take a double dose the next day to make up for the missed dose. Watch for signs of abnormal or excessive bleeding and bruising (refer to Bleeding Precautions education). Call your health care provider right away if you suspect something is wrong. Instruct on ongoing discharge plan Problem:Discharge Goal:Manage discharge planning Completed Ongoing Discharge plan: Discharge plan discussed with patient and caregiver including frequency and duration for home SN and plan for transition to: cardiac/pulmonary rehab. 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 Problem:SN Cardiac Procedure/Surgery Goal:Patient will have an uncomplicated recovery post cardiac procedure/surgery Completed patient and caregiver assessed and reinforced on keeping all incisions clean with mild soap and water and leave open to air, allow dermabond to slough off on it's own, signs & symptoms of complications: infection such as fever of 101 or greater, chills, redness and/or drainage of incision site, nausea/vomiting, and/or malaise and cardiac complications such as headache, dizziness, light-headedness, SOB, heart palpitations, chest pain, or chest pressure, activity guidelines: no raising arms greater than 90 degrees, no lifting items >8-10lbs, walking program, energy conservation and breathing exercises, use of incentive spirometer, record daily weights, temperature, and BP, instruct heart health diet and fluid restrictions no more than 64-68 oz in 24 hours. Instruct patient/caregiver healing process and management measures to promote healing and avoid complications Problem:SN Integumentary/Wounds Goal:Patient/Caregiv er will have improved healing and be free of signs and symptoms of complications Completed patient and caregiver instructed on the following: healing process, signs and symptoms of infection, importance of good nutrition and when to report symptoms. Instruct Patient/Caregiver on wound/incision care procedure as ordered by physician Problem:SN Integumentary/Wounds Goal:Patient/Caregiv er will have improved healing and be free of signs and symptoms of complications Completed patient and caregiver instructed on wound care as ordered by Physician. Instruct and educate on knowledge deficits Problem:SN Learning Assessment Goal:Demonstrate understanding of education Completed patient and caregiver verbalize and/or demonstrate understanding of nursing education completed today. Education methods include: verbal cues and written instructions. Further education required to improve knowledge and compliance with cardiac disease management, fall prevention/home safety strategies, gastrointestinal care management, incision/wound care management, medication management, nutrition and surgical care precautions. 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 Discipline -Physical Therapy Problems Problem Description Start Date Status Goals Interve ntions Risk for Falls Disciplines: Skilled Services 05/06/2022 Active 1 goal linked to scheduled/documen heath intervention 1 goal intervention scheduled/document ed in this visit PT Impaired Aerobic Capacity Disciplines: PT 05/07/2022 Active 1 goal linked to scheduled/documen heath intervention 1 goal intervention scheduled/document ed in this visit PT Impaired muscle performance and/or ROM Disciplines: PT 05/07/2022 Active 1 goal linked to scheduled/documen heath intervention 1 goal intervention scheduled/document ed in this visit PT Cardiovascular Disease Disciplines: PT 05/07/2022 Active 1 goal linked to scheduled/documen heath intervention 1 goal intervention scheduled/document ed in this visit Goals Goal Associated Problem Outcome Goal Met? Visit Notes Manage Risk for falls Description: Patient/caregiver will verbalize knowledge of individualized fall prevention strategies by 07/04/22. Risk for Falls No Improved Aerobic Capacity Description: LTG: Patient will demonstrate improved aerobic capacity to meet functional goals as evidenced by Rate of Percieved Exertion (RPE) of 3/10 during walking activity, to be achieved by 05/23/22. PT Impaired Aerobic Capacity No Improved Muscle Performance and/or ROM Description: LTG: Patient will demonstrate improved muscle performance to meet functional goals as evidenced by ability to tolerate 10 min of standing activity, to be achieved by 05/23/22. STG: Patient and/or caregiver will verbalize/demonstrate independence with home exercise program, to improve functional mobility, to be achieved by 05/16/22. PT Impaired muscle performance and/or ROM No Manage Cardiac Interventions Description: Improve patient and/or caregiver understanding of post surgical and/or non-surgical cardiac intervention management as evidenced by patient and/or caregiver able to verbalize, demonstrate, and teach back instruction, to be achieved by 05/23/22. PT Cardiovascular Disease No Interventions Intervention Associated Problem/Goal Status Variance Visit Notes Instruct on individual fall risk factors and strategies to prevent falls and injuries caused by falls. Problem:Risk for Falls Goal:Manage Risk for falls Completed PT: Patient and Caregiver instructed on Managing Impaired Functional Mobility: Use assistive device(s): rollator walker and Caregiver to provide assist with: Ambulation, Steps, Transfers and ADL/IADLs Managing Pain Physical Therapy Aerobic Capacity Training Problem:PT Impaired Aerobic Capacity Goal:Improved Aerobic Capacity Completed patient and caregiver instructed on utilization of the Rate of Percieved Exertion (RPE) scale, to not exceed 3-6/10 indicating moderate to heavy intensity of activity. Developed, implemented, and instructed patient and caregiver on physical therapy interventions completing: Pt advised to follow LE HEP ( 2-3 x a day ) and walking program ( Hourly walking during the day ). Physical Therapy Therapeutic Exercises Problem:PT Impaired muscle performance and/or ROM Goal:Improved Muscle Performance and/or ROM Completed patient and caregiver instructed on strengthening exercises including: Bilateral LE standing ex's at countertop: x 10/ 2 sets ( Marching, hip abd, hip ext, HS curls, heel to toe ). Vc's to slow down and to facilitate full ROM. patient and caregiver instructed to perform home exercise program twice a day which included: Above exercises. Pt amb with rollator up to 100 ft with supervision/ Pt requires Vc's to take appropriate seated rest breaks with the onset of SOB and/ or fatigue. Instruct on self-management of post surgical and/or non-surgical cardiac intervention Problem:PT Cardiovascular Disease Goal:Manage Cardiac Interventions Completed patient and caregiver instructed on post-op management of use of RPE scale, energy conservation, exercise and activity guidelines, signs and symptoms of infection and incision care. 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 Discipline -Physical Therapy Problems Problem Description Start Date Status Goals Interve ntions Physician Specific Parameters Disciplines: Skilled Services 05/06/2022 Active 1 goal linked to scheduled/documen heath intervention 1 goal intervention scheduled/document ed in this visit Risk for Falls Disciplines: Skilled Services 05/06/2022 Active 1 goal linked to scheduled/documen heath intervention 1 goal intervention scheduled/document ed in this visit PT Impaired Aerobic Capacity Disciplines: PT 05/07/2022 Active 1 goal linked to scheduled/documen heath intervention 1 goal intervention scheduled/document ed in this visit PT Impaired muscle performance and/or ROM Disciplines: PT 05/07/2022 Active 1 goal linked to scheduled/documen heath intervention 1 goal intervention scheduled/document ed in this visit PT Impaired balance Disciplines: PT 05/07/2022 Active 1 goal linked to scheduled/documen heath intervention 1 goal intervention scheduled/document ed in this visit PT Cardiovascular Disease Disciplines: PT 05/07/2022 Active 1 goal linked to scheduled/documen heath intervention 1 goal intervention scheduled/document ed in this visit Goals Goal Associated Problem Outcome Goal Met? Visit Notes Patient to maintain parameters within physician-specified ranges throughout certification period Physician Specific Parameters No Manage Risk for falls Description: Patient/caregiver will verbalize knowledge of individualized fall prevention strategies by 07/04/22. Risk for Falls No Improved Aerobic Capacity Description: LTG: Patient will demonstrate improved aerobic capacity to meet functional goals as evidenced by Rate of Percieved Exertion (RPE) of 3/10 during walking activity, to be achieved by 05/23/22. PT Impaired Aerobic Capacity No Improved Muscle Performance and/or ROM Description: LTG: Patient will demonstrate improved muscle performance to meet functional goals as evidenced by ability to tolerate 10 min of standing activity, to be achieved by 05/23/22. STG: Patient and/or caregiver will verbalize/demonstrate independence with home exercise program, to improve functional mobility, to be achieved by 05/16/22. PT Impaired muscle performance and/or ROM No Improved Balance Description: LTG: Patient will demonstrate improved standing balance to meet functional goals as evidenced by TUG score of <15 to be achieved by 05/23/22. PT Impaired balance No Manage Cardiac Interventions Description: Improve patient and/or caregiver understanding of post surgical and/or non-surgical cardiac intervention management as evidenced by patient and/or caregiver able to verbalize, demonstrate, and teach back instruction, to be achieved by 05/23/22. PT Cardiovascular Disease No Interventions Intervention Associated Problem/Goal Status Variance Visit Notes SPO2 Description: Notify Dr. Javier Alex MD if pulse ox is <92% at rest. Problem:Physician Specific Parameters Goal:Patient to maintain parameters within physician-specified ranges throughout certification period Completed Instruct on individual fall risk factors and strategies to prevent falls and injuries caused by falls. Problem:Risk for Falls Goal:Manage Risk for falls Completed PT: Patient and Caregiver instructed on Managing Impaired Functional Mobility: Use assistive device(s): rollator walker and Caregiver to provide assist with: Ambulation and Steps Managing Pain Physical Therapy Aerobic Capacity Training Problem:PT Impaired Aerobic Capacity Goal:Improved Aerobic Capacity Completed patient and daughter instructed on utilization of the Rate of Percieved Exertion (RPE) scale, to not exceed 3-6/10 indicating moderate to heavy intensity of activity. Developed, implemented, and instructed patient on physical therapy interventions completing: Pt advised to follow LE HEP ( 2-3 x a day ) and walking program ( Hourly walking during the day ). Physical Therapy Therapeutic Exercises Problem:PT Impaired muscle performance and/or ROM Goal:Improved Muscle Performance and/or ROM Completed patient instructed on strengthening exercises including: Bilateral LE standing ex's at countertop: x 12 / 1 set ( Marching, hip abd, hip ext, HS curls, heel to toe ). with verbal cues to slow down. patient and caregiver instructed to perform home exercise program twice a day which included: Above exercises. Pt amb with rollator up to 150 ft with Supervision. Physical Therapy Balance Training Problem:PT Impaired balance Goal:Improved Balance Completed Developed, implemented, and instructed patient on standing balance exercises including: Pt amb with std cane up to 60 ft x 2 with SBA/ VC's for sequencing/ No LOB observed. Instruct on self-management of post surgical and/or non-surgical cardiac intervention Problem:PT Cardiovascular Disease Goal:Manage Cardiac Interventions Completed patient and caregiver instructed on post-op management of energy conservation, exercise and activity guidelines and signs and symptoms of infection. Instructed on precautions/restricti ons including: not raising arms higher than 90 degrees, not lifting > 5- 10 lbs, no riding in the front of the car, no weight bearing with arms during transfers and use of pillow when coughing [facility] Visit Details Visit Type -SN ROUTINE Discipline -Fdc Problems Problem Description Start Date Status Goals Interve ntions Medication Education Disciplines: Skilled Services 05/06/2022 Active 1 goal linked to scheduled/document ed intervention 1 goal intervention scheduled/documente d in this visit Sepsis Disciplines: Skilled Services 05/06/2022 Active 1 goal linked to scheduled/document ed intervention 1 goal intervention scheduled/documente d in this visit Physician Specific Parameters Disciplines: Skilled Services 05/06/2022 Active 1 goal linked to scheduled/document ed intervention 1 goal intervention scheduled/documente d in this visit Risk for Falls Disciplines: Skilled Services 05/06/2022 Active 1 goal linked to scheduled/document ed intervention 1 goal intervention scheduled/documente d in this visit Nutrition/Hydra tion Disciplines: Skilled Services 05/06/2022 Active 1 goal linked to scheduled/document ed intervention 1 goal intervention scheduled/documente d in this visit High Risk Medications Disciplines: Skilled Services 05/06/2022 Active 1 goal linked to scheduled/document ed intervention 1 goal intervention scheduled/documente d in this visit SN Cardiac Procedure/Surge ry Disciplines: 05/06/2022 Active 1 goal linked to scheduled/document ed intervention 1 goal intervention scheduled/documente d in this visit SN Integumentary/W ounds Disciplines: 05/06/2022 Active 1 goal linked to scheduled/document ed intervention 2 goal interventions scheduled/documente d in this visit SN Learning Assessment Disciplines: 05/06/2022 Active 1 goal linked to scheduled/document ed intervention 1 goal intervention scheduled/documente d in this visit Goals Goal Associated Problem Outcome Goal Met? Visit Notes Patient/caregiver will demonstrate ability to obtain, store, identify and administer ordered medications, keep accurate medication list in home, and adhere to medication schedule Description: Patient/caregiver will demonstrate ability to obtain, store, identify and administer ordered medications, keep accurate medication list in home, and adhere to medication schedule by 07/04/22. Medication Education No Patient/caregiver will be able to identify and report symptoms of sepsis Description: Patient/caregiver will be able to identify signs/symptoms of sepsis infection and will verbalize actions to take if suspected by 07/04/22. Sepsis No Patient to maintain parameters within physician-specified ranges throughout certification period Physician Specific Parameters No Manage Risk for falls Description: Patient/caregiver will verbalize knowledge of individualized fall prevention strategies by 07/04/22. Risk for Falls No Manage Nutrition/Hydration Description: Patient/caregiver will verbalize/demonstrate knowledge of prescribed diet and/or healthy nutrition to be achieved by 07/04/22. Nutrition/Hydration No Patient/caregiver will teach back high risk medication side effect and precaution education High Risk Medications No Patient will have an uncomplicated recovery post cardiac procedure/surgery Description: Patient/caregiver will demonstrate understanding of aftercare post cardiac procedure/surgery as evidenced by an uncomplicated recovery to be achieved by 05/25/22. SN Cardiac Procedure/Surgery No Patient/Caregiver will have improved healing and be free of signs and symptoms of complications Description: Patient/caregiver will verbalize management strategies to promote wound healing & prevent complications as evidenced by improved healing & no complications by 05/26/22. SN Integumentary/Wounds No Demonstrate understanding of education Description: Patient and/or caregiver will verbalize understanding of educational instruction provided throughout certification period. SN Learning Assessment No Interventions Intervention Associated Problem/Goal Status Variance Visit Notes Medication Education Description: Evaluate/instruct patient/caregiver on obtaining, storing, identifying and administering ordered medications as well as keeping accurate medication list in the home and adhereing to medication schedule Problem:Medication Education Goal:Patient/caregive r will demonstrate ability to obtain, store, identify and administer ordered medications, keep accurate medication list in home, and adhere to medication schedule Completed Patient instructed on adhering to medication schedule. Risk of Sepsis Description: Patient is at risk for sepsis. Monitor closely for s/s of sepsis. Problem:Sepsis Goal:Patient/caregive r will be able to identify and report symptoms of sepsis Completed SPO2 Description: Notify Dr. Javier Alex MD if pulse ox is <92% at rest. Problem:Physician Specific Parameters Goal:Patient to maintain parameters within physician-specified ranges throughout certification period Completed Instruct on individual fall risk factors and strategies to prevent falls and injuries caused by falls. Problem:Risk for Falls Goal:Manage Risk for falls Completed SN: Patient instructed on Eliminating Environmental Hazards: Keep pathways clear and Keep rooms and walkways well lit Managing Impaired Functional Mobility: Use assistive device(s): rollator walker Define patient s appetite/hydration status and implement strategies to improve compliance with prescribed diet and/or healthy nutrition. Problem:Nutrition/Hyd ration Goal:Manage Nutrition/Hydration Completed reinforced patient on implementing strategies to comply with prescribed diet, healthy nutrition and adequate hydration Anticoagulant- educated on high risk medication Problem:High Risk Medications Goal:Patient/caregive r will teach back high risk medication side effect and precaution education Completed patient educated on anticoagulant medication eliquis Take your medication as instructed and at the same time each day. Do not stop medication or alter doses without speaking with your provider. Discuss medication effectiveness or side effect concerns with your provider and home care team. Discuss all medications you are taking, even [id number] medicines, with your provider and pharmacist since many drugs can interact with anticoagulants. Tell anyone providing medical or dental care that you are taking an anticoagulant. DO NOT STOP your medication even for a minor procedure like dental work without first checking with the provider. If you forget to take a dose, DO NOT take a double dose. Take the missed dose as soon as possible on the same day. DO NOT take a double dose the next day to make up for the missed dose. Watch for signs of abnormal or excessive bleeding and bruising (refer to Bleeding Precautions education). Call your health care provider right away if you suspect something is wrong. 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 Problem:SN Cardiac Procedure/Surgery Goal:Patient will have an uncomplicated recovery post cardiac procedure/surgery Completed patient assessed and reinforced on keeping all incisions clean with mild soap and water and leave open to air, allow dermabond to slough off on it's own, signs & symptoms of complications: infection such as fever of 101 or greater, chills, redness and/or drainage of incision site, nausea/vomiting, and/or malaise and cardiac complications such as headache, dizziness, light-headedness, SOB, heart palpitations, chest pain, or chest pressure, activity guidelines: no raising arms greater than 90 degrees, no lifting items >8-10lbs, walking program, energy conservation and breathing exercises, use of incentive spirometer, record daily weights, temperature, and BP, instruct heart health diet and fluid restrictions no more than 64-68 oz in 24 hours. Instruct patient/caregiver healing process and management measures to promote healing and avoid complications Problem:SN Integumentary/Wounds Goal:Patient/Caregive r will have improved healing and be free of signs and symptoms of complications Completed patient instructed on the following: healing process, importance of good nutrition and when to report symptoms. Instruct Patient/Caregiver on wound/incision care procedure as ordered by physician Problem:SN Integumentary/Wounds Goal:Patient/Caregive r will have improved healing and be free of signs and symptoms of complications Completed patient and caregiver instructed on wound care as ordered by Physician. Instruct and educate on knowledge deficits Problem:SN Learning Assessment Goal:Demonstrate understanding of education Completed patient and caregiver verbalize and/or demonstrate understanding of nursing education completed today. Education methods include: verbal cues. Further education required to improve knowledge and compliance with cardiac disease management, fall prevention/home safety strategies, incision/wound care management, medication management, nutrition and surgical care precautions. documented in this [facility] Plan of care note* Visit Details Visit Type -SN ROUTINE Discipline -Fdc Problems Problem Description Start Date Status Goals Interve ntions Medication Education Disciplines: Skilled Services 05/06/2022 Active 1 goal linked to scheduled/document ed intervention 1 goal intervention scheduled/documente d in this visit Sepsis Disciplines: Skilled Services 05/06/2022 Active 1 goal linked to scheduled/document ed intervention 1 goal intervention scheduled/documente d in this visit Physician Specific Parameters Disciplines: Skilled Services 05/06/2022 Active 1 goal linked to scheduled/document ed intervention 1 goal intervention scheduled/documente d in this visit Risk for Falls Disciplines: Skilled Services 05/06/2022 Active 1 goal linked to scheduled/document ed intervention 1 goal intervention scheduled/documente d in this visit Nutrition/Hydra tion Disciplines: Skilled Services 05/06/2022 Active 1 goal linked to scheduled/document ed intervention 1 goal intervention scheduled/documente d in this visit High Risk Medications Disciplines: Skilled Services 05/06/2022 Active 1 goal linked to scheduled/document ed intervention 2 goal interventions scheduled/documente d in this visit SN Cardiac Procedure/Surge ry Disciplines: 05/06/2022 Active 1 goal linked to scheduled/document ed intervention 1 goal intervention scheduled/documente d in this visit SN Integumentary/W ounds Disciplines: 05/06/2022 Active 1 goal linked to scheduled/document ed intervention 2 goal interventions scheduled/documente d in this visit SN Learning Assessment Disciplines: 05/06/2022 Active 1 goal linked to scheduled/document ed intervention 1 goal intervention scheduled/documente d in this visit Goals Goal Associated Problem Outcome Goal Met? Visit Notes Patient/caregiver will demonstrate ability to obtain, store, identify and administer ordered medications, keep accurate medication list in home, and adhere to medication schedule Description: Patient/caregiver will demonstrate ability to obtain, store, identify and administer ordered medications, keep accurate medication list in home, and adhere to medication schedule by 07/04/22. Medication Education In Progress No Patient/caregiver will be able to identify and report symptoms of sepsis Description: Patient/caregiver will be able to identify signs/symptoms of sepsis infection and will verbalize actions to take if suspected by 07/04/22. Sepsis In Progress No Patient to maintain parameters within physician-specified ranges throughout certification period Physician Specific Parameters In Progress No Manage Risk for falls Description: Patient/caregiver will verbalize knowledge of individualized fall prevention strategies by 07/04/22. Risk for Falls In Progress No Manage Nutrition/Hydration Description: Patient/caregiver will verbalize/demonstrate knowledge of prescribed diet and/or healthy nutrition to be achieved by 07/04/22. Nutrition/Hydration In Progress No Patient/caregiver will teach back high risk medication side effect and precaution education High Risk Medications In Progress No Patient will have an uncomplicated recovery post cardiac procedure/surgery Description: Patient/caregiver will demonstrate understanding of aftercare post cardiac procedure/surgery as evidenced by an uncomplicated recovery to be achieved by 05/25/22. SN Cardiac Procedure/Surgery In Progress No Patient/Caregiver will have improved healing and be free of signs and symptoms of complications Description: Patient/caregiver will verbalize management strategies to promote wound healing & prevent complications as evidenced by improved healing & no complications by 05/26/22. SN Integumentary/Wounds In Progress No Demonstrate understanding of education Description: Patient and/or caregiver will verbalize understanding of educational instruction provided throughout certification period. SN Learning Assessment In Progress No Interventions Intervention Associated Problem/Goal Status Variance Visit Notes Medication Education Description: Evaluate/instruct patient/caregiver on obtaining, storing, identifying and administering ordered medications as well as keeping accurate medication list in the home and adhereing to medication schedule Problem:Medication Education Goal:Patient/caregive r will demonstrate ability to obtain, store, identify and administer ordered medications, keep accurate medication list in home, and adhere to medication schedule Completed Patient and Caregiver instructed on adhering to medication schedule. Risk of Sepsis Description: Patient is at risk for sepsis. Monitor closely for s/s of sepsis. Problem:Sepsis Goal:Patient/caregive r will be able to identify and report symptoms of sepsis Completed SPO2 Description: Notify Dr. Javier Alex MD if pulse ox is <92% at rest. Problem:Physician Specific Parameters Goal:Patient to maintain parameters within physician-specified ranges throughout certification period Completed Instruct on individual fall risk factors and strategies to prevent falls and injuries caused by falls. Problem:Risk for Falls Goal:Manage Risk for falls Completed SN: Patient and Caregiver instructed on Eliminating Environmental Hazards: Keep pathways clear, Keep pets out of pathways and Keep rooms and walkways well lit Managing Impaired Functional Mobility: Use assistive device(s): rollator walker when going out and Caregiver to provide assist with: ADL/IADLs Define patient s appetite/hydration status and implement strategies to improve compliance with prescribed diet and/or healthy nutrition. Problem:Nutrition/Hyd ration Goal:Manage Nutrition/Hydration Completed reinforced patient on implementing strategies to comply with prescribed diet, healthy nutrition and adequate hydration Antiplatelet- educated on high risk medication Problem:High Risk Medications Goal:Patient/caregive r will teach back high risk medication side effect and precaution education Completed patient and caregiver educated on taking medication(s) as prescribed by provider. Do not stop medication or alter doses without speaking with your provider. Discuss medication effectiveness or side effect concerns with your provider and home care team. Discuss all medications you are taking, even [id number] medicines, with your provider and pharmacist since many drugs can interact with antiplatelet medications. If you forget to take a dose, DO NOT take a double dose. Take the missed dose as soon as possible on the same day. DO NOT take a double dose the next day to make up for the missed dose. Watch for signs of abnormal or excessive bleeding and bruising (refer to Bleeding Precautions education). Call your health care provider right away if you suspect something is wrong. Anticoagulant- educated on high risk medication Problem:High Risk Medications Goal:Patient/caregive r will teach back high risk medication side effect and precaution education Completed patient and caregiver educated on anticoagulant medication Eliquis Take your medication as instructed and at the same time each day. Do not stop medication or alter doses without speaking with your provider. Discuss medication effectiveness or side effect concerns with your provider and home care team. Discuss all medications you are taking, even [id number] medicines, with your provider and pharmacist since many drugs can interact with anticoagulants. Tell anyone providing medical or dental care that you are taking an anticoagulant. DO NOT STOP your medication even for a minor procedure like dental work without first checking with the provider. If you forget to take a dose, DO NOT take a double dose. Take the missed dose as soon as possible on the same day. DO NOT take a double dose the next day to make up for the missed dose. Watch for signs of abnormal or excessive bleeding and bruising (refer to Bleeding Precautions education). Call your health care provider right away if you suspect something is wrong. 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 Problem:SN Cardiac Procedure/Surgery Goal:Patient will have an uncomplicated recovery post cardiac procedure/surgery Completed patient and caregiver assessed and reinforced on keeping all incisions clean with mild soap and water and leave open to air, allow dermabond to slough off on it's own, activity guidelines: no lifting items >8-10lbs, walking program, energy conservation and breathing exercises, use of incentive spirometer, record daily weights, temperature, and BP and instruct heart health diet. Instruct patient/caregiver healing process and management measures to promote healing and avoid complications Problem:SN Integumentary/Wounds Goal:Patient/Caregive r will have improved healing and be free of signs and symptoms of complications Completed patient instructed on the following: healing process. Instruct Patient/Caregiver on wound/incision care procedure as ordered by physician Problem:SN Integumentary/Wounds Goal:Patient/Caregive r will have improved healing and be free of signs and symptoms of complications Completed patient instructed on wound care as ordered by Physician. Instruct and educate on knowledge deficits Problem:SN Learning Assessment Goal:Demonstrate understanding of education Completed patient and caregiver verbalize and/or demonstrate understanding of nursing education completed today. Education methods include: verbal cues. Further education required to improve knowledge and compliance with cardiac disease management, fall prevention/home safety strategies, incision/wound care management, medication management, nutrition, pain management and surgical care precautions. 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 Discipline -Physical Therapy Problems Problem Description Start Date Status Goals Interve ntions Physician Specific Parameters Disciplines: Skilled Services 05/06/2022 Active 1 goal linked to scheduled/document ed intervention 1 goal intervention scheduled/document ed in this visit Risk for Falls Disciplines: Skilled Services 05/06/2022 Active 1 goal linked to scheduled/document ed intervention 1 goal intervention scheduled/document ed in this visit PT Impaired Aerobic Capacity Disciplines: PT 05/07/2022 Active 1 goal linked to scheduled/document ed intervention 1 goal intervention scheduled/document ed in this visit PT Impaired muscle performance and/or ROM Disciplines: PT 05/07/2022 Active 1 goal linked to scheduled/document ed intervention 1 goal intervention scheduled/document ed in this visit PT Impaired balance Disciplines: PT 05/07/2022 Active 1 goal linked to scheduled/document ed intervention 1 goal intervention scheduled/document ed in this visit Goals Goal Associated Problem Outcome Goal Met? Visit Notes Patient to maintain parameters within physician-specified ranges throughout certification period Physician Specific Parameters No Manage Risk for falls Description: Patient/caregiver will verbalize knowledge of individualized fall prevention strategies by 07/04/22. Risk for Falls No Improved Aerobic Capacity Description: LTG: Patient will demonstrate improved aerobic capacity to meet functional goals as evidenced by Rate of Percieved Exertion (RPE) of 3/10 during walking activity, to be achieved by 05/23/22. PT Impaired Aerobic Capacity No Improved Muscle Performance and/or ROM Description: LTG: Patient will demonstrate improved muscle performance to meet functional goals as evidenced by ability to tolerate 10 min of standing activity, to be achieved by 05/23/22. STG: Patient and/or caregiver will verbalize/demonstrate independence with home exercise program, to improve functional mobility, to be achieved by 05/16/22. PT Impaired muscle performance and/or ROM No Improved Balance Description: LTG: Patient will demonstrate improved standing balance to meet functional goals as evidenced by TUG score of <15 to be achieved by 05/23/22. PT Impaired balance No Interventions Intervention Associated Problem/Goal Status Variance Visit Notes SPO2 Description: Notify Dr. Javier Alex MD if pulse ox is <92% at rest. Problem:Physician Specific Parameters Goal:Patient to maintain parameters within physician-specified ranges throughout certification period Completed Instruct on individual fall risk factors and strategies to prevent falls and injuries caused by falls. Problem:Risk for Falls Goal:Manage Risk for falls Completed PT: Patientand caregiver instructed on Managing Impaired Functional Mobility: Use assistive device(s): rollator walker and Caregiver to provide assist with: Ambulation and Steps Managing Pain Physical Therapy Aerobic Capacity Training Problem:PT Impaired Aerobic Capacity Goal:Improved Aerobic Capacity Completed patient and caregiver instructed on utilization of the Rate of Percieved Exertion (RPE) scale, to not exceed 3-6/10 indicating moderate to heavy intensity of activity. Developed, implemented, and instructed patient and caregiver on physical therapy interventions completing: Pt advised to follow LE HEP ( 2-3 x a day ) and walking program ( Hourly walking during the day ). Physical Therapy Therapeutic Exercises Problem:PT Impaired muscle performance and/or ROM Goal:Improved Muscle Performance and/or ROM Completed patient and caregiver instructed on strengthening exercises including: Bilateral LE standing ex's at countertop: x 15 / 1 set ( Marching, hip abd, hip ext, HS curls, heel to toe ). with verbal cues to slow down. patient and caregiver instructed to perform home exercise program twice a day which included; Above exercises. Physical Therapy Balance Training Problem:PT Impaired balance Goal:Improved Balance Completed Developed, implemented, and instructed patient and caregiver on standing balance exercises including: Backward and lateral amb with out AD with SBA. No LOB observed. Pt amb with out AD up to 100 ft inside home with Supervision/ No LOB observed. [facility] Visit Details Visit Type -OT ROUTINE Discipline -Occupational Therapy Problems Problem Description Start Date Status Goals Interve ntions Physician Specific Parameters Disciplines: Skilled Services 05/06/2022 Active 1 goal linked to scheduled/documen heath intervention 1 goal intervention scheduled/document ed in this visit Discharge Disciplines: Skilled Services 05/06/2022 Active 1 goal linked to scheduled/documen heath intervention 1 goal intervention scheduled/document ed in this visit OT Learning Assessment Disciplines: OT 05/14/2022 Active 1 goal linked to scheduled/documen heath intervention 1 goal intervention scheduled/document ed in this visit OT ADLs/IADLs Disciplines: OT 05/14/2022 Resolved on 05/20/2022 1 goal linked to scheduled/documen heath intervention 1 goal intervention scheduled/document ed in this visit OT Upper Body Strength and/or ROM Disciplines: OT 05/14/2022 Active 1 goal linked to scheduled/documen heath intervention 1 goal intervention scheduled/document ed in this visit OT Functional Transfers Disciplines: OT 05/14/2022 Resolved on 05/20/2022 1 goal linked to scheduled/documen heath intervention 1 goal intervention scheduled/document ed in this visit Goals Goal Associated Problem Outcome Goal Met? Visit Notes Patient to maintain parameters within physician-specified ranges throughout certification period Physician Specific Parameters No Manage discharge planning Description: Patient/caregiver will verbalize understanding of ongoing discharge plan provided related to disease management, arrangements for outpatient and/or community services, obtaining medications, supplies, and DME, as needed throughout certification period. Discharge No Demonstrate understanding of education Description: Patient and/or caregiver will understand educational instruction to be achieved by 05/30/22. OT Learning Assessment No Improved ADLs/IADLs performance Description: patient will verbalize understanding of instructions and demonstrate improved performance of meal prep to independence as evidenced by improved safety with food/drink retrieval and transport to be achieved by 05/30/22. OT ADLs/IADLs Completed Yes goal met Improved Strength and/or ROM Description: patient will verbalize/demonstrate independence with home exercise program, to improve functional performance, to be achieved by 05/30/22. OT Upper Body Strength and/or ROM No Improved Functional Transfers Description: patient will demonstrate safe transfers to/from shower/tub with independent assistance and no verbal cues with use of DME to be achieved by 05/30/22. OT Functional Transfers Completed Yes goal met Interventions Intervention Associated Problem/Goal Status Variance Visit Notes SPO2 Description: Notify Dr. Javier Alex MD if pulse ox is <92% at rest. Problem:Physician Specific Parameters Goal:Patient to maintain parameters within physician-specified ranges throughout certification period Completed Instruct on ongoing discharge plan Problem:Discharge Goal:Manage discharge planning Completed Ongoing Discharge plan: Discharge plan discussed with patient including frequency and duration for home OT and plan for transition to: caregiver assistance. Instruct and educate on knowledge deficits Problem:OT Learning Assessment Goal:Demonstrate understanding of education Completed Education methods include: verbal cues. Patient/Caregiver require further education to improve knowledge and compliance with fall prevention strategies, pain management, home safety and home exercise program. ADL/IADLs Training Problem:OT ADLs/IADLs Goal:Improved ADLs/IADLs performance Completed Instruct patient on safety and falls prevention and no adaptive equipment use to facilite improved performance of meal prep with independence and verbal cues. Therapeutic Exercises Problem:OT Upper Body Strength and/or ROM Goal:Improved Strength and/or ROM Completed Instructed patient/caregiver on therapeutic exercise including: upper body exercises: shoulder flexion/extension, abduction/adduction, horizontal abduction/adduction, internal/external rotation, overhead and chest press, tricep press, elbow and wrist flexion/extension and forearm supination/pronation .Provided verbal, visual and written cues for pacing and proper technique. Patient performed 2 set (s) of 10 reps this date. using 1 lb weight no overhead movement to shoulder height only Instructed patient/caregiver for HEP to be performed 1-2 sets(s) of 10-15 reps, daily. HEP program developed, issued and reviewed. Transfer Training Problem:OT Functional Transfers Goal:Improved Functional Transfers Completed Instruct patient on safe transfers and proper techniques to perform to and from toilet and shower/tub with indep [facility] Visit Details Visit Type -PT DISC DC W VIS IT Discipline -Physical Therapy Problems Problem Description Start Date Status Goals Interve ntions Sepsis Disciplines: Skilled Services 05/06/2022 Active 1 goal linked to scheduled/docume nted intervention 1 goal intervention scheduled/documen heath in this visit Physician Specific Parameters Disciplines: Skilled Services 05/06/2022 Active 1 goal linked to scheduled/docume nted intervention 1 goal intervention scheduled/documen heath in this visit Risk for Falls Disciplines: Skilled Services 05/06/2022 Active 1 goal linked to scheduled/docume nted intervention 1 goal intervention scheduled/documen heath in this visit PT Impaired Aerobic Capacity Disciplines: PT 05/07/2022 Resolved on 05/21/2022 1 goal linked to scheduled/docume nted intervention 1 goal intervention scheduled/documen heath in this visit PT Impaired muscle performance and/or ROM Disciplines: PT 05/07/2022 Resolved on 05/21/2022 1 goal linked to scheduled/docume nted intervention 1 goal intervention scheduled/documen heath in this visit PT Impaired balance Disciplines: PT 05/07/2022 Resolved on 05/21/2022 1 goal linked to scheduled/docume nted intervention 1 goal intervention scheduled/documen heath in this visit PT Learning Assessment Disciplines: PT 05/07/2022 Resolved on 05/21/2022 1 goal linked to scheduled/docume nted intervention 1 goal intervention scheduled/documen heath in this visit PT Cardiovascular Disease Disciplines: PT 05/07/2022 Resolved on 05/21/2022 1 goal linked to scheduled/docume nted intervention Goals Goal Associated Problem Outcome Goal Met? Visit Notes Patient/caregiver will be able to identify and report symptoms of sepsis Description: Patient/caregiver will be able to identify signs/symptoms of sepsis infection and will verbalize actions to take if suspected by 07/04/22. Sepsis No Patient to maintain parameters within physician-specified ranges throughout certification period Physician Specific Parameters No Manage Risk for falls Description: Patient/caregiver will verbalize knowledge of individualized fall prevention strategies by 07/04/22. Risk for Falls No Improved Aerobic Capacity Description: LTG: Patient will demonstrate improved aerobic capacity to meet functional goals as evidenced by Rate of Percieved Exertion (RPE) of 3/10 during walking activity, to be achieved by 05/23/22. PT Impaired Aerobic Capacity Completed Yes Improved Muscle Performance and/or ROM Description: LTG: Patient will demonstrate improved muscle performance to meet functional goals as evidenced by ability to tolerate 10 min of standing activity, to be achieved by 05/23/22. STG: Patient and/or caregiver will verbalize/demonstrate independence with home exercise program, to improve functional mobility, to be achieved by 05/16/22. PT Impaired muscle performance and/or ROM Completed Yes Improved Balance Description: LTG: Patient will demonstrate improved standing balance to meet functional goals as evidenced by TUG score of <15 to be achieved by 05/23/22. PT Impaired balance Completed Yes Demonstrate understanding of education Description: Patient and/or caregiver will understand educational instruction to be achieved by 05/23/22. PT Learning Assessment Completed Yes Manage Cardiac Interventions Description: Improve patient and/or caregiver understanding of post surgical and/or non-surgical cardiac intervention management as evidenced by patient and/or caregiver able to verbalize, demonstrate, and teach back instruction, to be achieved by 05/23/22. PT Cardiovascular Disease Completed Yes Interventions Intervention Associated Problem/Goal Status Variance Visit Notes Risk of Sepsis Description: Patient is at risk for sepsis. Monitor closely for s/s of sepsis. Problem:Sepsis Goal:Patient/caregiver will be able to identify and report symptoms of sepsis Completed SPO2 Description: Notify Dr. Javier Alex MD if pulse ox is <92% at rest. Problem:Physician Specific Parameters Goal:Patient to maintain parameters within physician-specified ranges throughout certification period Completed Instruct on individual fall risk factors and strategies to prevent falls and injuries caused by falls. Problem:Risk for Falls Goal:Manage Risk for falls Completed PT: Patient instructed on Eliminating Environmental Hazards: Keep pathways clear, Keep pets out of pathways, Remove unsafe rugs and Move furniture from pathways Managing Impaired Functional Mobility: Use assistive device(s): rollator walker as needed Physical Therapy Aerobic Capacity Training Problem:PT Impaired Aerobic Capacity Goal:Improved Aerobic Capacity Completed patient instructed on utilization of the Rate of Percieved Exertion (RPE) scale, to not exceed 3-6/10 indicating moderate to heavy intensity of activity. Developed, implemented, and instructed patient on physical therapy interventions completing 8 minutes of continuous and paced activity. Physical Therapy Therapeutic Exercises Problem:PT Impaired muscle performance and/or ROM Goal:Improved Muscle Performance and/or ROM Completed patient and caregiver instructed on strengthening exercises including: Bilateral LE standing ex's at countertop: x 15 / 1 set ( Marching, hip abd, hip ext, HS curls, heel to toe ). with verbal cues to slow down. patient and caregiver instructed to perform home exercise program twice a day which included; Above exercises Physical Therapy Balance Training Problem:PT Impaired balance Goal:Improved Balance Completed demonstrates improved dynamic standing balance as evidenced by a tug of 11 Instruct and educate on knowledge deficits Problem:PT Learning Assessment Goal:Demonstrate understanding of education Completed patient verbalize and/or demonstrate understanding of physical therapy education including cardiac disease management, fall prevention strategies, home safety, functional activity and home exercise program. Education methods include: verbal cues. documented in this encounter [facility] home Plan of care note* Visit Details Visit Type -SN ROUTINE Discipline -Fdc Problems Problem Description Start Date Status Goals Interve ntions Medication Education Disciplines: Skilled Services 05/06/2022 Active 1 goal linked to scheduled/document ed intervention 1 goal intervention scheduled/document ed in this visit Sepsis Disciplines: Skilled Services 05/06/2022 Active 1 goal linked to scheduled/document ed intervention 1 goal intervention scheduled/document ed in this visit Physician Specific Parameters Disciplines: Skilled Services 05/06/2022 Active 1 goal linked to scheduled/document ed intervention 1 goal intervention scheduled/document ed in this visit Risk for Falls Disciplines: Skilled Services 05/06/2022 Active 1 goal linked to scheduled/document ed intervention 1 goal intervention scheduled/document ed in this visit Nutrition/Hydr ation Disciplines: Skilled Services 05/06/2022 Resolved on 05/26/2022 1 goal linked to scheduled/document ed intervention 1 goal intervention scheduled/document ed in this visit High Risk Medications Disciplines: Skilled Services 05/06/2022 Active 1 goal linked to scheduled/document ed intervention 2 goal interventions scheduled/document ed in this visit Discharge Disciplines: Skilled Services 05/06/2022 Active 1 goal linked to scheduled/document ed intervention 2 goal interventions scheduled/document ed in this visit Advance Directives Disciplines: Skilled Services 05/06/2022 Resolved on 05/26/2022 1 goal linked to scheduled/document ed intervention SN Cardiac Procedure/Surg nathan Disciplines: SN 05/06/2022 Active 1 goal linked to scheduled/document ed intervention 1 goal intervention scheduled/document ed in this visit SN Integumentary/ Wounds Disciplines: SN 05/06/2022 Active 1 goal linked to scheduled/document ed intervention 2 goal interventions scheduled/document ed in this visit SN Learning Assessment Disciplines: SN 05/06/2022 Active 1 goal linked to scheduled/document ed intervention 1 goal intervention scheduled/document ed in this visit Goals Goal Associated Problem Outcome Goal Met? Visit Notes Patient/caregiver will demonstrate ability to obtain, store, identify and administer ordered medications, keep accurate medication list in home, and adhere to medication schedule Description: Patient/caregiver will demonstrate ability to obtain, store, identify and administer ordered medications, keep accurate medication list in home, and adhere to medication schedule by 07/04/22. Medication Education In Progress No Patient/caregiver will be able to identify and report symptoms of sepsis Description: Patient/caregiver will be able to identify signs/symptoms of sepsis infection and will verbalize actions to take if suspected by 07/04/22. Sepsis In Progress No Patient to maintain parameters within physician-specified ranges throughout certification period Physician Specific Parameters In Progress No Manage Risk for falls Description: Patient/caregiver will verbalize knowledge of individualized fall prevention strategies by 07/04/22. Risk for Falls In Progress No Manage Nutrition/Hydration Description: Patient/caregiver will verbalize/demonstrate knowledge of prescribed diet and/or healthy nutrition to be achieved by 07/04/22. Nutrition/Hydration Completed Yes Patient/caregiver will teach back high risk medication side effect and precaution education High Risk Medications In Progress No Manage discharge planning Description: Patient/caregiver will verbalize understanding of ongoing discharge plan provided related to disease management, arrangements for outpatient and/or community services, obtaining medications, supplies, and DME, as needed throughout certification period. Discharge In Progress No Patient/caregiver will make healthcare providers aware of and any changes to Advance Directives throughout certification period Advance Directives Completed Yes Patient will have an uncomplicated recovery post cardiac procedure/surgery Description: Patient/caregiver will demonstrate understanding of aftercare post cardiac procedure/surgery as evidenced by an uncomplicated recovery to be achieved by 05/25/22. SN Cardiac Procedure/Surgery In Progress No Patient/Caregiver will have improved healing and be free of signs and symptoms of complications Description: Patient/caregiver will verbalize management strategies to promote wound healing & prevent complications as evidenced by improved healing & no complications by 05/26/22. SN Integumentary/Wounds In Progress No Demonstrate understanding of education Description: Patient and/or caregiver will verbalize understanding of educational instruction provided throughout certification period. SN Learning Assessment In Progress No Interventions Intervention Associated Problem/Goal Status Variance Visit Notes Medication Education Description: Evaluate/instruct patient/caregiver on obtaining, storing, identifying and administering ordered medications as well as keeping accurate medication list in the home and adhereing to medication schedule Problem:Medication Education Goal:Patient/caregive r will demonstrate ability to obtain, store, identify and administer ordered medications, keep accurate medication list in home, and adhere to medication schedule Completed Patient instructed on adhering to medication schedule. Risk of Sepsis Description: Patient is at risk for sepsis. Monitor closely for s/s of sepsis. Problem:Sepsis Goal:Patient/caregive r will be able to identify and report symptoms of sepsis Completed SPO2 Description: Notify Dr. Javier Alex MD if pulse ox is <92% at rest. Problem:Physician Specific Parameters Goal:Patient to maintain parameters within physician-specified ranges throughout certification period Completed Instruct on individual fall risk factors and strategies to prevent falls and injuries caused by falls. Problem:Risk for Falls Goal:Manage Risk for falls Completed SN: Patient instructed on Eliminating Environmental Hazards: Keep pathways clear, Keep pets out of pathways and Keep rooms and walkways well lit Managing Impaired Functional Mobility: Use assistive device(s): single point cane Define patient s appetite/hydration status and implement strategies to improve compliance with prescribed diet and/or healthy nutrition. Problem:Nutrition/Hyd ration Goal:Manage Nutrition/Hydration Completed reinforced patient on implementing strategies to comply with healthy nutrition and adequate hydration Antiplatelet- educated on high risk medication Problem:High Risk Medications Goal:Patient/caregive r will teach back high risk medication side effect and precaution education Completed patient educated on taking medication(s) as prescribed by provider. Do not stop medication or alter doses without speaking with your provider. Discuss medication effectiveness or side effect concerns with your provider and home care team. Discuss all medications you are taking, even maif-eto-ifggrbp medicines, with your provider and pharmacist since many drugs can interact with antiplatelet medications. If you forget to take a dose, DO NOT take a double dose. Take the missed dose as soon as possible on the same day. DO NOT take a double dose the next day to make up for the missed dose. Watch for signs of abnormal or excessive bleeding and bruising (refer to Bleeding Precautions education). Call your health care provider right away if you suspect something is wrong. Anticoagulant- educated on high risk medication Problem:High Risk Medications Goal:Patient/caregive r will teach back high risk medication side effect and precaution education Completed patient educated on anticoagulant medication eliquis Take your medication as instructed and at the same time each day. Do not stop medication or alter doses without speaking with your provider. Discuss medication effectiveness or side effect concerns with your provider and home care team. Discuss all medications you are taking, even nsds-wmz-shwjwzu medicines, with your provider and pharmacist since many drugs can interact with anticoagulants. Tell anyone providing medical or dental care that you are taking an anticoagulant. DO NOT STOP your medication even for a minor procedure like dental work without first checking with the provider. If you forget to take a dose, DO NOT take a double dose. Take the missed dose as soon as possible on the same day. DO NOT take a double dose the next day to make up for the missed dose. Watch for signs of abnormal or excessive bleeding and bruising (refer to Bleeding Precautions education). Call your health care provider right away if you suspect something is wrong. Deliver NOM[facility] Problem:Discharge Goal:Manage discharge planning Completed Delivered [facility] on 05/26/22 for discharge date of 06/02/22. Instruct on ongoing discharge plan Problem:Discharge Goal:Manage discharge planning Completed Ongoing Discharge plan: Discharge plan discussed with patient including frequency and duration for home SN and plan for transition to: cardiac/pulmonary rehab. 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 Problem:SN Cardiac Procedure/Surgery Goal:Patient will have an uncomplicated recovery post cardiac procedure/surgery Completed patient assessed and reinforced on keeping all incisions clean with mild soap and water and leave open to air, allow dermabond to slough off on it's own, activity guidelines: no lifting items >8-10lbs, walking program, energy conservation and breathing exercises, use of incentive spirometer and record daily weights, temperature, and BP. Instruct patient/caregiver healing process and management measures to promote healing and avoid complications Problem:SN Integumentary/Wounds Goal:Patient/Caregive r will have improved healing and be free of signs and symptoms of complications Completed patient instructed on the following: healing process and importance of good nutrition. Instruct Patient/Caregiver on wound/incision care procedure as ordered by physician Problem:SN Integumentary/Wounds Goal:Patient/Caregive r will have improved healing and be free of signs and symptoms of complications Completed patient instructed on wound care as ordered by Physician. Instruct and educate on knowledge deficits Problem:SN Learning Assessment Goal:Demonstrate understanding of education Completed patient verbalize and/or demonstrate understanding of nursing education completed today. Education methods include: verbal cues. Further education required to improve knowledge and compliance with cardiac disease management, fall prevention/home safety strategies, hematological care management, incision/wound care management, medication management, nutrition and surgical care precautions. documented in this encounter [facility] home Plan of care note* Visit Details Visit Type -SN AGENCY DC W V ISIT Discipline -Fdc Problems Problem Description Start Date Status Goals Interve ntions Medication Education Disciplines: Skilled Services 05/06/2022 Resolved on 06/03/2022 1 goal linked to scheduled/document ed intervention 1 goal intervention scheduled/document ed in this visit Sepsis Disciplines: Skilled Services 05/06/2022 Resolved on 06/03/2022 1 goal linked to scheduled/document ed intervention 1 goal intervention scheduled/document ed in this visit Physician Specific Parameters Disciplines: Skilled Services 05/06/2022 Resolved on 06/03/2022 1 goal linked to scheduled/document ed intervention 1 goal intervention scheduled/document ed in this visit Risk for Falls Disciplines: Skilled Services 05/06/2022 Resolved on 06/03/2022 1 goal linked to scheduled/document ed intervention 1 goal intervention scheduled/document ed in this visit High Risk Medications Disciplines: Skilled Services 05/06/2022 Resolved on 06/03/2022 1 goal linked to scheduled/document ed intervention 2 goal interventions scheduled/document ed in this visit Discharge Disciplines: Skilled Services 05/06/2022 Resolved on 06/03/2022 1 goal linked to scheduled/document ed intervention 1 goal intervention scheduled/document ed in this visit SN Cardiac Procedure/Surg nathan Disciplines: SN 05/06/2022 Resolved on 06/03/2022 1 goal linked to scheduled/document ed intervention 1 goal intervention scheduled/document ed in this visit SN Integumentary/ Wounds Disciplines: SN 05/06/2022 Resolved on 06/03/2022 1 goal linked to scheduled/document ed intervention 2 goal interventions scheduled/document ed in this visit SN Learning Assessment Disciplines: SN 05/06/2022 Resolved on 06/03/2022 1 goal linked to scheduled/document ed intervention 1 goal intervention scheduled/document ed in this visit Goals Goal Associated Problem Outcome Goal Met? Visit Notes Patient/caregiver will demonstrate ability to obtain, store, identify and administer ordered medications, keep accurate medication list in home, and adhere to medication schedule Description: Patient/caregiver will demonstrate ability to obtain, store, identify and administer ordered medications, keep accurate medication list in home, and adhere to medication schedule by 07/04/22. Medication Education Completed Yes Patient/caregiver will be able to identify and report symptoms of sepsis Description: Patient/caregiver will be able to identify signs/symptoms of sepsis infection and will verbalize actions to take if suspected by 07/04/22. Sepsis Completed Yes Patient to maintain parameters within physician-specified ranges throughout certification period Physician Specific Parameters Completed Yes Manage Risk for falls Description: Patient/caregiver will verbalize knowledge of individualized fall prevention strategies by 07/04/22. Risk for Falls Completed Yes Patient/caregiver will teach back high risk medication side effect and precaution education High Risk Medications Completed Yes Manage discharge planning Description: Patient/caregiver will verbalize understanding of ongoing discharge plan provided related to disease management, arrangements for outpatient and/or community services, obtaining medications, supplies, and DME, as needed throughout certification period. Discharge Completed Yes Patient will have an uncomplicated recovery post cardiac procedure/surgery Description: Patient/caregiver will demonstrate understanding of aftercare post cardiac procedure/surgery as evidenced by an uncomplicated recovery to be achieved by 05/25/22. SN Cardiac Procedure/Surgery Completed Yes Patient/Caregiver will have improved healing and be free of signs and symptoms of complications Description: Patient/caregiver will verbalize management strategies to promote wound healing & prevent complications as evidenced by improved healing & no complications by 05/26/22. SN Integumentary/Wounds Completed Yes Demonstrate understanding of education Description: Patient and/or caregiver will verbalize understanding of educational instruction provided throughout certification period. SN Learning Assessment Completed Yes Interventions Intervention Associated Problem/Goal Status Variance Visit Notes Medication Education Description: Evaluate/instruct patient/caregiver on obtaining, storing, identifying and administering ordered medications as well as keeping accurate medication list in the home and adhereing to medication schedule Problem:Medication Education Goal:Patient/caregive r will demonstrate ability to obtain, store, identify and administer ordered medications, keep accurate medication list in home, and adhere to medication schedule Completed Patient instructed on importance of keeping accurate medication list in home and adhering to medication schedule. Risk of Sepsis Description: Patient is at risk for sepsis. Monitor closely for s/s of sepsis. Problem:Sepsis Goal:Patient/caregive r will be able to identify and report symptoms of sepsis Completed SPO2 Description: Notify Dr. Javier Alex MD if pulse ox is <92% at rest. Problem:Physician Specific Parameters Goal:Patient to maintain parameters within physician-specified ranges throughout certification period Completed Instruct on individual fall risk factors and strategies to prevent falls and injuries caused by falls. Problem:Risk for Falls Goal:Manage Risk for falls Completed SN: Patient instructed on Eliminating Environmental Hazards: Keep pathways clear, Keep pets out of pathways and Keep rooms and walkways well lit Managing Impaired Functional Mobility: Use assistive device(s): single point cane Antiplatelet- educated on high risk medication Problem:High Risk Medications Goal:Patient/caregive r will teach back high risk medication side effect and precaution education Completed patient educated on taking medication(s) as prescribed by provider. Do not stop medication or alter doses without speaking with your provider. Discuss medication effectiveness or side effect concerns with your provider and home care team. Discuss all medications you are taking, even cwry-rua-zzxylto medicines, with your provider and pharmacist since many drugs can interact with antiplatelet medications. If you forget to take a dose, DO NOT take a double dose. Take the missed dose as soon as possible on the same day. DO NOT take a double dose the next day to make up for the missed dose. Watch for signs of abnormal or excessive bleeding and bruising (refer to Bleeding Precautions education). Call your health care provider right away if you suspect something is wrong. Anticoagulant- educated on high risk medication Problem:High Risk Medications Goal:Patient/caregive r will teach back high risk medication side effect and precaution education Completed patient educated on anticoagulant medication eliquis Take your medication as instructed and at the same time each day. Do not stop medication or alter doses without speaking with your provider. Discuss medication effectiveness or side effect concerns with your provider and home care team. Discuss all medications you are taking, even ugoc-nqg-kvczagv medicines, with your provider and pharmacist since many drugs can interact with anticoagulants. Tell anyone providing medical or dental care that you are taking an anticoagulant. DO NOT STOP your medication even for a minor procedure like dental work without first checking with the provider. If you forget to take a dose, DO NOT take a double dose. Take the missed dose as soon as possible on the same day. DO NOT take a double dose the next day to make up for the missed dose. Watch for signs of abnormal or excessive bleeding and bruising (refer to Bleeding Precautions education). Call your health care provider right away if you suspect something is wrong. 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 Problem:SN Cardiac Procedure/Surgery Goal:Patient will have an uncomplicated recovery post cardiac procedure/surgery Completed patient assessed and reinforced on keeping all incisions clean with mild soap and water and leave open to air, allow dermabond to slough off on it's own, signs & symptoms of complications: infection such as fever of 101 or greater, chills, redness and/or drainage of incision site, nausea/vomiting, and/or malaise and cardiac complications such as headache, dizziness, light-headedness, SOB, heart palpitations, chest pain, or chest pressure, activity guidelines: no lifting items >8-10lbs, walking program, energy conservation and breathing exercises, record daily weights, temperature, and BP, instruct heart health diet and fluid restrictions no more than 64-68 oz in 24 hours. Instruct patient/caregiver healing process and management measures to promote healing and avoid complications Problem:SN Integumentary/Wounds Goal:Patient/Caregive r will have improved healing and be free of signs and symptoms of complications Completed patient instructed on the following: healing process, importance of good nutrition and when to report symptoms. Instruct Patient/Caregiver on wound/incision care procedure as ordered by physician Problem:SN Integumentary/Wounds Goal:Patient/Caregive r will have improved healing and be free of signs and symptoms of complications Completed patient instructed on wound care as ordered by Physician. Instruct and educate on knowledge deficits Problem:SN Learning Assessment Goal:Demonstrate understanding of education Completed patient verbalize and/or demonstrate understanding of nursing education completed today. Education methods include: verbal cues and written instructions. Further education required to improve knowledge and compliance with cardiac disease management, fall prevention/home safety strategies, hematological care management, incision/wound care management, medication management, nutrition, pain management and surgical care precautions. documented in this encounter [facility] Summary Purpose Family History No Family History Records FoundNo Family History Records FoundNo Family History Records Found Advance Directives No Advanced Directives Records FoundLatest Code Status on File Code Status Date Activated Date Inactivated Comments Full Code 05/08/2022 12:15 PM Health Concerns Infection Onset Date Last Indicated Resolved Time COVID-19 Rule-Out 04/17/2022 04/17/2022 04/17/2022 2:02 PM EST Infection Onset Date Last Indicated Resolved Time COVID-19 Rule-Out 04/30/2022 04/30/2022 04/30/2022 1:25 PM EDT COVID-19 Confirmed 04/30/2022 04/30/2022 Infection Onset Date Last Indicated Resolved Time COVID-19 Confirmed 04/30/2022 04/30/2022 Infection Onset Date Last Indicated Resolved Time COVID-19 Confirmed 04/30/2022 04/30/2022 3 8:51 PM EDT Additional Source Comments (unrecognized sect ion and content) No Status Records FoundNo Status Records FoundNo Status Records Found INFORMATION SOURCE (unrecogn ized section and content) DATE CREATED AUTHOR AUTHOR'S ORGANIZ ATION 06/18/2022 [facility] DATE CREATED AUTHOR AUTHOR'S ORGANIZ ATION 07/25/2022 [facility] Source Comments (unrecognize d section and content) In the event this informatio n is protected by the Federal Confidentiality of Alcohol and Drug Abuse Patient Records regulations: The Federal rules restrict any use of the information to criminally investigate or prosecute any alcohol or drug abuse patient.[facility] the event this information is protected by the Federal Confidentiality of Alcohol and Drug Abuse Patient Records regulations: The Federal rules restrict any use of the information to criminally investigate or prosecute any alcohol or drug abuse patient.[facility] the event this information is protected by the Federal Confidentiality of Alcohol and Drug Abuse Patient Records regulations: The Federal rules restrict any use of the information to criminally investigate or prosecute any alcohol or drug abuse patient.[facility] the event this information is protected by the Federal Confidentiality of Alcohol and Drug Abuse Patient Records regulations: The Federal rules restrict any use of the information to criminally investigate or prosecute any alcohol or drug abuse patient.[facility] CenterIn the event this information is protected by the Federal Confidentiality of Alcohol and Drug Abuse Patient Records regulations: The Federal rules restrict any use of the information to criminally investigate or prosecute any alcohol or drug abuse patient.[facility] CenterIn the event this information is protected by the Federal Confidentiality of Alcohol and Drug Abuse Patient Records regulations: The Federal rules restrict any use of the information to criminally investigate or prosecute any alcohol or drug abuse patient.[facility] Center[facility] the event this information is protected by the Federal Confidentiality of Alcohol and Drug Abuse Patient Records regulations: The Federal rules restrict any use of the information to criminally investigate or prosecute any alcohol or drug abuse patient.[facility] CenterIn the event this information is protected by the Federal Confidentiality of Alcohol and Drug Abuse Patient Records regulations: The Federal rules restrict any use of the information to criminally investigate or prosecute any alcohol or drug abuse patient.[facility] Center[facility] the event this information is protected by the Federal Confidentiality of Alcohol and Drug Abuse Patient Records regulations: The Federal rules restrict any use of the information to criminally investigate or prosecute any alcohol or drug abuse patient.[facility] Center[facility] the event this information is protected by the Federal Confidentiality of Alcohol and Drug Abuse Patient Records regulations: The Federal rules restrict any use of the information to criminally investigate or prosecute any alcohol or drug abuse patient.[facility] CenterIn the event this information is protected by the Federal Confidentiality of Alcohol and Drug Abuse Patient Records regulations: The Federal rules restrict any use of the information to criminally investigate or prosecute any alcohol or drug abuse patient.[facility] CenterIn the event this information is protected by the Federal Confidentiality of Alcohol and Drug Abuse Patient Records regulations: The Federal rules restrict any use of the information to criminally investigate or prosecute any alcohol or drug abuse patient.[facility] CenterIn the event this information is protected by the Federal Confidentiality of Alcohol and Drug Abuse Patient Records regulations: The Federal rules restrict any use of the information to criminally investigate or prosecute any alcohol or drug abuse patient.[facility] CenterIn the event this information is protected by the Federal Confidentiality of Alcohol and Drug Abuse Patient Records regulations: The Federal rules restrict any use of the information to criminally investigate or prosecute any alcohol or drug abuse patient.[facility] CenterIn the event this information is protected by the Federal Confidentiality of Alcohol and Drug Abuse Patient Records regulations: The Federal rules restrict any use of the information to criminally investigate or prosecute any alcohol or drug abuse patient.[facility] CenterIn the event this information is protected by the Federal Confidentiality of Alcohol and Drug Abuse Patient Records regulations: The Federal rules restrict any use of the information to criminally investigate or prosecute any alcohol or drug abuse patient.[facility] CenterIn the event this information is protected by the Federal Confidentiality of Alcohol and Drug Abuse Patient Records regulations: The Federal rules restrict any use of the information to criminally investigate or prosecute any alcohol or drug abuse patient.[facility] CenterIn the event this information is protected by the Federal Confidentiality of Alcohol and Drug Abuse Patient Records regulations: The Federal rules restrict any use of the information to criminally investigate or prosecute any alcohol or drug abuse patient.[facility] CenterIn the event this information is protected by the Federal Confidentiality of Alcohol and Drug Abuse Patient Records regulations: The Federal rules restrict any use of the information to criminally investigate or prosecute any alcohol or drug abuse patient.[facility] the event this information is protected by the Federal Confidentiality of Alcohol and Drug Abuse Patient Records regulations: The Federal rules restrict any use of the information to criminally investigate or prosecute any alcohol or drug abuse patient.[facility] CenterIn the event this information is protected by the Federal Confidentiality of Alcohol and Drug Abuse Patient Records regulations: The Federal rules restrict any use of the information to criminally investigate or prosecute any alcohol or drug abuse patient.[facility] CenterIn the event this information is protected by the Federal Confidentiality of Alcohol and Drug Abuse Patient Records regulations: The Federal rules restrict any use of the information to criminally investigate or prosecute any alcohol or drug abuse patient.[facility] CenterIn the event this information is protected by the Federal Confidentiality of Alcohol and Drug Abuse Patient Records regulations: The Federal rules restrict any use of the information to criminally investigate or prosecute any alcohol or drug abuse patient.[facility] CenterIn the event this information is protected by the Federal Confidentiality of Alcohol and Drug Abuse Patient Records regulations: The Federal rules restrict any use of the information to criminally investigate or prosecute any alcohol or drug abuse patient.[facility] CenterIn the event this information is protected by the Federal Confidentiality of Alcohol and Drug Abuse Patient Records regulations: The Federal rules restrict any use of the information to criminally investigate or prosecute any alcohol or drug abuse patient.[facility] CenterIn the event this information is protected by the Federal Confidentiality of Alcohol and Drug Abuse Patient Records regulations: The Federal rules restrict any use of the information to criminally investigate or prosecute any alcohol or drug abuse patient.[facility] CenterIn the event this information is protected by the Federal Confidentiality of Alcohol and Drug Abuse Patient Records regulations: The Federal rules restrict any use of the information to criminally investigate or prosecute any alcohol or drug abuse patient.[facility] CenterIn the event this information is protected by the Federal Confidentiality of Alcohol and Drug Abuse Patient Records regulations: The Federal rules restrict any use of the information to criminally investigate or prosecute any alcohol or drug abuse patient.[facility] CenterIn the event this information is protected by the Federal Confidentiality of Alcohol and Drug Abuse Patient Records regulations: The Federal rules restrict any use of the information to criminally investigate or prosecute any alcohol or drug abuse patient.[facility] CenterIn the event this information is protected by the Federal Confidentiality of Alcohol and Drug Abuse Patient Records regulations: The Federal rules restrict any use of the information to criminally investigate or prosecute any alcohol or drug abuse patient.[facility] CenterIn the event this information is protected by the Federal Confidentiality of Alcohol and Drug Abuse Patient Records regulations: The Federal rules restrict any use of the information to criminally investigate or prosecute any alcohol or drug abuse patient.[facility] CenterIn the event this information is protected by the Federal Confidentiality of Alcohol and Drug Abuse Patient Records regulations: The Federal rules restrict any use of the information to criminally investigate or prosecute any alcohol or drug abuse patient.[facility] CenterIn the event this information is protected by the Federal Confidentiality of Alcohol and Drug Abuse Patient Records regulations: The Federal rules restrict any use of the information to criminally investigate or prosecute any alcohol or drug abuse patient.[facility] CenterIn the event this information is protected by the Federal Confidentiality of Alcohol and Drug Abuse Patient Records regulations: The Federal rules restrict any use of the information to criminally investigate or prosecute any alcohol or drug abuse patient.[facility] CenterIn the event this information is protected by the Federal Confidentiality of Alcohol and Drug Abuse Patient Records regulations: The Federal rules restrict any use of the information to criminally investigate or prosecute any alcohol or drug abuse patient.[facility] Reason for Visit (unrecogniz ed section and content) Reason Comments Other Home Health Care ord ers Reason Comments Home Care Confirmation Call Reason Onset Date Comments Transition Of Care 05/01/2022 TCM Initial A [facility] Discharge 04/30/22 Reason Onset Date Comments Transition Of Care 05/05/2022 TCM follow up [facility] Discharge 04/30/22 Reason Comments Post Op Follow Up 1-week follow-up sta tus-post CABG Reason Onset Date Comments Transition Of Care 05/12/2022 Tcm follow up Reason Comments Cardiac Rehab Referral to [facility] Reason Comments Request to call [facility] requests to conta ct daughter, Kaitlyn Burgos, regarding patient's recent lab work. Reason Comments Home Care Reason Comments Orders Prescription for Dil tiazem Request to contact [facility] request to contac t pharmacy Reason Comments Question DaughterZoya, Reason Comments Patient Update Home Care Patient Question Reason Comments Referral Information Reason Comments Home Care Severe medication in teraction Care Teams (unrecognized sec tion and content) Agile Project Manager Relationship Specialty Start Date End Date Jose Ramon Welch MD [address] [place] [address] PCP - General Family Medicine 04/30/22 Magi Pulliam, FAMILY MANAGER.CLIENT BUSINESS MANAGER [address] [facility] [address] [place] [address] Referring Cardiac Surg 04/30/22 Javier Alex MD [address] [place] [address] Home Care Provider Cardiothoracic Surgery 04/30/22 Zay Chavez, RAN [address] [place], [place] [id number] Reporting Consultant Post Acute Care 04/30/22 Agile Project Manager Relationship Specialty Start Date End Date Jose Ramon Welch MD [address] [place], [place] [address] PCP - General Family Medicine 04/30/22 Magi Pulliam, FAMILY MANAGER.CLIENT BUSINESS MANAGER [address] [place] [address] Referring Cardiac Surg 04/30/22 Javier Alex MD [address] [place] [address] Home Care Provider Cardiothoracic Surgery 04/30/22 Zay Chavez, RAN [address] [place], [place] [phone] Reporting Consultant Post Acute Care 04/30/22 Catracho Jc, RAN [address] [place], [place] [id number] Primary Care Manager Of Recruiting Internal Medicine 05/01/22 05/31/22 Agile Project Manager Relationship Specialty Start Date End Date Jose Ramon Welch MD [address] [place] [address] PCP - General Family Medicine 04/30/22 Magi Pulliam, FAMILY MANAGER.CLIENT BUSINESS MANAGER [address] [place] [address] Referring Cardiac Surg 04/30/22 Javier Alex MD [address] [place] [address] Home Care Provider Cardiothoracic Surgery 04/30/22 Zay Chavez RN [address] [facility] [place] [address] Reporting Consultant Post Acute Care 04/30/22 Catracho Jc, RAN [address] [place], [place] [phone] Primary Care Manager Of Recruiting Internal Medicine 05/01/22 05/31/22 Agile Project Manager Relationship Specialty Start Date End Date Shira Brady MD [address] [place] [address] PCP - General Internal Medicine 05/04/22 Magi Pulliam, FAMILY MANAGER.CLIENT BUSINESS MANAGER [address] [place] [address] [place] [address] Referring Cardiac Surg 04/30/22 Javier Alex MD [address] [place] [address] [place] [address] Home Care Provider Cardiothoracic Surgery 04/30/22 Zay Chavez RN [address] [facility] [place] [address] Reporting Consultant Post Acute Care 04/30/22 Agile Project Manager Relationship Specialty Start Date End Date Shira Brady MD [address] [facility] [place] [address] PCP - General Internal Medicine 05/04/22 Magi Pulliam, FAMILY MANAGER.CLIENT BUSINESS MANAGER [address] [place] [address] [place] [address] Referring Cardiac Surg 04/30/22 Javier Alex MD [address] [place] [address] [place] [address] Home Care Provider Cardiothoracic Surgery 04/30/22 Zay Chavez RN [address] [facility] [place] [address] Reporting Consultant Post Acute Care 04/30/22 Agile Project Manager Relationship Specialty Start Date End Date Shira Brady MD [address] [place] [address] PCP - General Internal Medicine 05/04/22 Magi Pulliam, FAMILY MANAGER.CLIENT BUSINESS MANAGER [address] [place] [address] [place] [address] Referring Cardiac Surg 04/30/22 Javier Alex MD [address] [place] [address] [place] [address] Home Care Provider Cardiothoracic Surgery 04/30/22 Zay Chavez RN [address] [place] [address] Reporting Consultant Post Acute Care 04/30/22 Agile Project Manager Relationship Specialty Start Date End Date Shira Brady MD [address] [place] [address] PCP - General Internal Medicine 05/04/22 Magi Pulliam, FAMILY MANAGER.CLIENT BUSINESS MANAGER [address] [place] [address] [place] [address] Referring Cardiac Surg 04/30/22 Javier Alex MD [address] [place] [address] [place] [address] Home Care Provider Cardiothoracic Surgery 04/30/22 Zay Chavez RN [address] [place] [address] Reporting Consultant Post Acute Care 04/30/22 Agile Project Manager Relationship Specialty Start Date End Date Shira Brady MD [address] [place] [address] PCP - General Internal Medicine 05/04/22 Magi Pulliam, FAMILY MANAGER.CLIENT BUSINESS MANAGER [address] [place] [address] [place] [address] Referring Cardiac Surg 04/30/22 Javier Alex MD [address] [place] [address] [place] [address] Home Care Provider Cardiothoracic Surgery 04/30/22 Zay Chavez RN [address] [place] [address] Reporting Consultant Post Acute Care 04/30/22 Agile Project Manager Relationship Specialty Start Date End Date Shira Brady MD [address] [place] [address] PCP - General Internal Medicine 05/04/22 Magi Pulliam, FAMILY MANAGER.CLIENT BUSINESS MANAGER [address] [place] [address] [place] [address] Referring Cardiac Surg 04/30/22 Javier Alex MD [address] [place] [address] [place] [address] Home Care Provider Cardiothoracic Surgery 04/30/22 Zay Chavez RN [address] [place] [address] Reporting Consultant Post Acute Care 04/30/22 Agile Project Manager Relationship Specialty Start Date End Date Shira Brady MD [address] [place] [address] PCP - General Internal Medicine 05/04/22 Magi Pulliam, FAMILY MANAGER.CLIENT BUSINESS MANAGER [address] [place] [address] [place] [address] Referring Cardiac Surg 04/30/22 Javier Alex MD [address] [place] [address] [place] [address] Home Care Provider Cardiothoracic Surgery 04/30/22 Zay Chavez RN [address] [place] [address] Reporting Consultant Post Acute Care 04/30/22 Agile Project Manager Relationship Specialty Start Date End Date Shira Brady MD [address] [place] [address] PCP - General Internal Medicine 05/04/22 Magi Pulliam, FAMILY MANAGER.CLIENT BUSINESS MANAGER [address] [place] [address] [place] [address] Referring Cardiac Surg 04/30/22 Javier Alex MD [address] [place] [address] [place] [address] Home Care Provider Cardiothoracic Surgery 04/30/22 Zay Chavez, RAN [address] [place] [address] Reporting Consultant Post Acute Care 04/30/22 Agile Project Manager Relationship Specialty Start Date End Date Shira Brady MD [address] [place] [address] PCP - General Internal Medicine 05/04/22 Magi Pulliam, FAMILY MANAGER.CLIENT BUSINESS MANAGER [address] [place] [address] [place] [address] Referring Cardiac Surg 04/30/22 Javier Alex MD [address] [place] [address] [place] [address] Home Care Provider Cardiothoracic Surgery 04/30/22 Zay Chavez, RAN [address] [place] [address] Reporting Consultant Post Acute Care 04/30/22 Agile Project Manager Relationship Specialty Start Date End Date Shira Brady MD [address] [place] [address] PCP - General Internal Medicine 05/04/22 Magi Pulliam, FAMILY MANAGER.CLIENT BUSINESS MANAGER [address] [place] [address] [place] [address] Referring Cardiac Surg 04/30/22 Javier Alex MD [address] [place] [address] [place] [address] Home Care Provider Cardiothoracic Surgery 04/30/22 Zay Chavez RN [address] [place] [address] Reporting Consultant Post Acute Care 04/30/22 Agile Project Manager Relationship Specialty Start Date End Date Shira Brady MD [address] [place] [address] PCP - General Internal Medicine 05/04/22 Magi Pulliam, FAMILY MANAGER.CLIENT BUSINESS MANAGER [address] [place] [address] [place] [address] Referring Cardiac Surg 04/30/22 Javier Alex MD [address] [place] [address] [place] [address] Home Care Provider Cardiothoracic Surgery 04/30/22 Zay Chavez RN [address] [place] [address] Reporting Consultant Post Acute Care 04/30/22 Agile Project Manager Relationship Specialty Start Date End Date Shira Brady MD [address] [place] [address] PCP - General Internal Medicine 05/04/22 Magi Pulliam, FAMILY MANAGER.CLIENT BUSINESS MANAGER [address] [place] [address] [place] [address] Referring Cardiac Surg 04/30/22 Javier Alex MD [address] [place] [address] [place] [address] Home Care Provider Cardiothoracic Surgery 04/30/22 Zay Chavez RN [address] [place] [address] Reporting Consultant Post Acute Care 04/30/22 Agile Project Manager Relationship Specialty Start Date End Date Shira Brady MD [address] [place] [address] PCP - General Internal Medicine 05/04/22 Magi Pulliam, FAMILY MANAGER.CLIENT BUSINESS MANAGER [address] [place] [address] [place] [address] Referring Cardiac Surg 04/30/22 Javier Alex MD [address] [place] [address] [place] [address] Home Care Provider Cardiothoracic Surgery 04/30/22 Zay Chavez, RAN [address] [facility] [place] [address] Reporting Consultant Post Acute Care 04/30/22 Agile Project Manager Relationship Specialty Start Date End Date Shira Brady MD [address] [place] [address] PCP - General Internal Medicine 05/04/22 Magi Pulliam, FAMILY MANAGER.CLIENT BUSINESS MANAGER [address] [place] [address] [place] [address] Referring Cardiac Surg 04/30/22 Javier Alex MD [address] [place] [address] [place] [address] Home Care Provider Cardiothoracic Surgery 04/30/22 Zay Chavez, RN [address] [facility] [place] [address] Reporting Consultant Post Acute Care 04/30/22 Agile Project Manager Relationship Specialty Start Date End Date Shira Brady MD [address] [place] [address] PCP - General Internal Medicine 05/04/22 Magi Pulliam, FAMILY MANAGER.CLIENT BUSINESS MANAGER [address] [place] [address] [place], [place] [id number] Referring Cardiac Surg 04/30/22 Javier Alex MD [address] [place] [address] [place], [place] [id number] [phone] Home Care Provider Cardiothoracic Surgery 04/30/22 Agile Project Manager Relationship Specialty Start Date End Date Shira Brady MD [address] [place], [place] [id number] PCP - General Internal Medicine 05/04/22 Magi Pulliam, FAMILY MANAGER.CLIENT BUSINESS MANAGER [address] [place] [address] [place], [place] [id number] Referring Cardiac Surg 04/30/22 Javier Alex MD [address] [place] [address] [place], [place] [id number] Home Care Provider Cardiothoracic Surgery 04/30/22 Zay Chavez, RN [address] [place] [address] Reporting Consultant Post Acute Care 04/30/22 06/03/22 FOR RECORDS PERTAINING TO PATIENTS WHO ARE OR HAVE BEEN ENROLLED IN A CHEMICAL DEPENDENCY/SUBSTANCEABUSE PROGRAM, SOME INFORMATION MAY BE OMITTED. This clinical summary was aggregated from multiple sources. Caution should be exercised in using it in the provision of clinical care. This summary normalizes information from multiple sources, and as a consequence, information in this document may materially change the coding, format and clinical context of patient data. In addition, data may be omitted in some cases. CLINICAL DECISIONS SHOULD BE BASED ON THE PRIMARY CLINICAL RECORDS. [employer] provides no warranty or guarantee of the accuracy or completeness of information in this document.
[2023-04-01 03:00] VITALS: BP 155/72
--- NOTE | 2023-04-01 03:10 | CT_ITS ---
STUDY: CT ABDOMEN AND PELVIS WITHOUT CONTRAST REASON FOR EXAM: Male, 83 years old patient with abdominal injury after fall. RADIATION DOSAGE (If Supplied By Facility): CTDIvol = ( 11.61 ) mGy, DLP = ( 667.15 ) mGycm TECHNIQUE: Transaxial images were obtained from the dome of the diaphragm to the symphysis pubis without oral contrast, and without intravenous contrast. Sagittal and coronal images were reconstructed. Individualized dose optimization techniques were used for this CT. COMPARISON: CT of abdomen and pelvis dated July 13, 2013. FINDINGS: There is a right-sided hemothorax there is right lower lobe airspace disease suggesting pulmonary hemorrhage and pulmonary contusion. There are acute displaced right lateral rib fractures involving the seventh, eighth and ninth ribs. The visualized portions of the heart are within normal limits. There are multiple hepatic cysts with the largest measuring 2.7 cm. Normal gallbladder and extrahepatic biliary system. Normal spleen. Normal pancreas. Normal bilateral adrenal glands. Normal right kidney. Normal left kidney. There is a small hiatal hernia. There is no obvious dilated bowel, ascites or pneumoperitoneum. The small bowel has a grossly normal appearance. There is stool and/or gas visible within the colon. There is a calcified appendicolith. There is diffuse atherosclerotic calcification of the abdominal aorta and iliac arteries, without a demonstrated aneurysm. Normal inferior vena cava. Normal retroperitoneum. Urinary bladder is very distended. Normal visualized prostate gland. Normal abdominal wall. The bones appear osteopenic. There is mild wedge-shaped deformity of L1 consistent with mild old compression fracture. Imaged thoracic and lumbar vertebral bodies have normal height otherwise. Patient has had a sternotomy. There are degenerative changes of both hips. CT/Abdomen/Pelvis without Cont IMPRESSION: 1. Right-sided hemothorax with right-sided pulmonary hemorrhage and contusion secondary to multiple right-sided rib fractures. 2. No CT evidence of acute intra-abdominal disease. Electronically Signed: Vicki Mckeon MD at 5:19 EST ,
--- NOTE | 2023-04-01 03:10 | CT_ITS ---
STUDY: CT CERVICAL SPINE WITHOUT CONTRAST REASON FOR EXAM: Male, 83 years old patient with neck injury after fall. RADIATION DOSAGE (If Supplied By Facility): CTDIvol = ( 20.68 ) mGy, DLP = ( 486.82 ) mGycm TECHNIQUE: High resolution transaxial imaging was performed without contrast material. Sagittal and coronal images were reconstructed. Individualized dose optimization techniques were used for this CT. COMPARISON: None FINDINGS: Normal craniovertebral junction. There are degenerative changes of the anterior atlantoaxial articulation. Normal odontoid process. There is straightening of the normal cervical lordosis. The bones appear osteopenic. There is sclerotic lesion within the posterior aspect of T1 that may represent a bone island. C2-3: Normal endplates. Normal disc height and morphology. Normal central canal and intervertebral neuroforamina. There is mild degenerative arthropathy of the uncovertebral and facet joints. C3-4: Normal endplates. Normal disc height and morphology. Normal central canal. There is severe narrowing of bilateral intervertebral neuroforamina. There is hypertrophic right-sided facet joint hypertrophy. There is mild degenerative arthropathy of the uncovertebral joints and left-sided facet joint. C4-5: Normal endplates. Normal disc height and morphology. Normal central canal. There is severe narrowing of the right-sided neuroforamen with hypertrophic facet joint hypertrophy. There is mild narrowing of the left neuroforamen. C5-6: Normal endplates. Normal disc height and morphology. Normal central canal. There is severe narrowing of the left-sided intervertebral neuroforamen with hypertrophic facet and uncovertebral joint hypertrophy. There is mild narrowing of the right neuroforamen. C6-7: Normal endplates. Normal disc height and morphology. Normal central canal and intervertebral neuroforamina. C7-T1: Normal endplates. Normal disc height and morphology. Normal central canal and intervertebral neuroforamina. The thyroid has heterogeneous attenuation and appears mildly atrophic. There is moderate atherosclerotic calcification of the carotid bulbs. Paraspinal soft tissues are within normal limits in appearance. The patient has had a sternotomy. CT/Spine Cervical without Contras IMPRESSION: No CT evidence of acute compression or displaced fracture. Electronically Signed: Vicki Mckeon MD at 5:06 EST ,
[2023-04-01 03:24] LABS: Absolute Lymphocyte Count 1.01 X10^3/uL (0.83-4.51); Basophil# 0.04 X10^3/uL; Basophil% 0.5 % (0-1); Eosinophil# 0.02 X10^3/uL; Eosinophils% 0.2 % (0-5); Hematocrit 36.8 % (40-54); Hemoglobin 11.6 g/dL (13.0-16.5); Lymphocyte # 1.01 X10^3/ul (0.83-4.51); Lymphocyte % 11.5 % (19-41); Mean Corp Hgb Conc 31.5 g/dL (32-36); Mean Corpuscular Hgb 28.9 pg (27.0-32.0); Mean Corpuscular Volume 91.5 fL (80-94); Mean Platelet Vol. 9.2 fl (6.2-12.0); Monocyte# 0.74 X10^3/uL; Monocyte% 8.4 % (0-10); NRBC Flagged by Analyzer 0 % (0-5); Neutrophil # 6.97 X10^3/uL (2.7-7.7); Neutrophil % 78.9 % (47-70); Platelet Count 167 K/mm3 (150-450); RBC Distribution Width CV 14.6 % (11.6-14.6); RBC Distribution Width SD 49.1 fl (35.1-43.9); Red Blood Count 4.02 M/mm3 (4.6-6.2); White Blood Count 8.8 K/mm3 (4.4-11.0)
[2023-04-01 03:40] LABS: Anion Gap 4 (5-15); BUN 20 mg/dL (7-18); BUN/Creat Ratio 28.1 RATIO (10-20); Calcium,Total 9.9 mg/dL (8.5-10.1); Chloride 108 mmol/L (98-107); Creatinine, Serum 0.71 mg/dL (0.70-1.30); EST Glomerular Filtration Rate 113 mL/min (>60); Est Glom Filt Rate - Afr Amer 136 mL/min (>60); Estimated Creatinine Clearance 73.51 ml/min; Glucose 161 mg/dL (74-106); Potassium 3.9 mmol/L (3.5-5.1); Sodium Level 139 mmol/L (136-145)
[2023-04-01 04:07] LABS: International Normalized Ratio 1.4; Partial Thromboplast Time 33.3 Seconds (24.1-36.2); Prothrombin Time (Protime)PT. 17.7 SECONDS (11.7-14.9)
[2023-04-01] MEDS: Labetalol (Prefilled) 20 MG/4 ML 10 MG IV (04:13)
[2023-04-01] MEDS: cloNIDine HCl 0.1 MG Tablet 0.100000000000000006 MG PO (04:13)
--- NOTE | 2023-04-01 04:28 | ED.RN ---
PT ACCEPTED AT [facility] ED. N2N [id number] THEIR SQUAD TO BE HERE APPROX [id number]
--- NOTE | 2023-04-01 04:32 | EX.ED.DYSGE1 ---
HPI History of Present Illness Chief Complaint: Fall Informant: patient and EMS Narrative Narrative: Patient is an 83-year-old male with past medical history of hypertension hyperlipidemia chronic A-fib currently on Eliquis as well as coronary artery disease with three-vessel bypass roughly 1 year ago on Plavix. He states that he was working out in the barn and around 8 PM he was trying to jump a wheelbarrow when he lost his balance and fell landing on his right side. He denies striking his head or any loss of consciousness. He states he was able to get up and make it into the house. He states however that as time passed his pain continued to worsen and he could not sleep secondary to it and therefore EMS was called 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 Unstable angina Home Medications albuterol sulfate 90 mcg/actuation aerosol inhaler (Ventolin HFA) 1 - 2 puff inhalation Q4H PRN PRN Wheezing #1 inh 05/03/22 [Rx Last Taken Unknown] acetaminophen 325 mg tablet (Tylenol) 500 mg PO Q6H PRN Pain 06/17/22 [History Last Taken Unknown] carbamazepine 200 mg tablet (Tegretol) 200 mg PO TID #270 tabs 06/17/22 [Rx Last Taken Unknown] clopidogrel 75 mg tablet (Plavix) 75 mg PO 06/17/22 [History Last Taken Unknown] lisinopril 20 mg tablet 20 mg PO DAILY #90 tabs 10/02/22 [Rx Last Taken Unknown] atorvastatin 40 mg tablet (Lipitor) 40 mg PO DAILY #90 tabs 10/29/22 [Rx Last Taken Unknown] metoprolol tartrate 50 mg tablet 50 mg PO BID #180 tabs 11/19/22 [Rx Last Taken Unknown] diltiazem HCl 240 mg capsule,extended release 24 hr 240 mg PO DAILY #90 caps 12/16/22 [Rx Last Taken Unknown] apixaban 5 mg tablet (Eliquis) 5 mg PO BID #180 tabs 01/29/23 [Rx Last Taken Unknown] levothyroxine 50 mcg tablet 50 mcg PO DAILY #90 tabs 02/04/23 [Rx Last Taken Unknown] Allergy/AdvReac Type Severity Reaction Status Date / Time No Known Allergies Allergy Verified 04/01/23 01:18 Surgical History (Reviewed 01/29/23 @ 11:51 by Daniela Law AUTOMOTIVE COLLISION ESTIMATOR, AUTOMOTIVE COLLISION ESTIMATOR-C) History of prostate surgery Hx of skin graft Hx of tonsillectomy S/P CABG x 3 (~04/20/22) Social History Smoking Status: Former smoker how long ago did patient quit smokin02/08/1969 alcohol intake: never substance use type: does not use what type of physical activity do you participate in: none ROS ROS ED Constitutional Constitutional ED: Denies chills or fever(s) Eyes Eyes: Denies change in vision ENT ENT ED: Denies sore throat Cardiovascular Cardiovascular: Reports palpitations; Denies chest pain or racing heartbeat Respiratory/Chest Respiratory/Chest: Denies cough or dyspnea Gastrointestinal Gastrointestinal: Reports nausea; Denies abdominal pain, diarrhea or vomiting Genitourinary Genitourinary ED: Denies dysuria or hematuria Musculoskeletal Musculoskeletal: Reports back pain; Denies neck pain Integumentary Reports Abrasions Neurologic Neurologic: Denies headache(s) Hematologic/Lymphatic Hematologic/Lymphatic: Reports easy bleeding and easy bruising EXAM Physical Exam Const Vital Signs: 04/01/23 00:50 04/01/23 00:57 04/01/23 01:03 Temperature 97.8 F Temperature Source Temporal Pulse Rate 90 Respiratory Rate 22 H Respiratory Effort Normal Non-Labored Respiratory Depth Shallow Blood Pressure 222/108 H 222/116 H Blood Pressure Mean 146 151 Pulse Ox 95 Oxygen Delivery Method Room Air Room Air 04/01/23 03:00 Temperature Temperature Source Pulse Rate Respiratory Rate Respiratory Effort Respiratory Depth Blood Pressure 155/72 H Blood Pressure Mean 99 Pulse Ox Oxygen Delivery Method Positive well nourished and well developed General Appearance ED: well developed HEENT HEENT Narrative: Normocephalic atraumatic Eyes PERRL and EOMs intact bilaterally Eyes Narrative: No hyphema noted Neck supple Neck Narrative: No bony deformity or step-off of the cervical spine no midline pain with palpation Patient is able to move his neck in all directions without pain Chest Wall Chest Narrative: Patient has soft tissue swelling with ecchymosis along the right posterior lateral aspect of his ribs/back rib regions 8-10. There is severe reproducible pain at the site but no obvious crepitance palpated. Resp normal respiratory effort and clear to auscultation bilaterally Resp Narrative: Breath sounds are diminished throughout with faint crackles noted in the right lower base but no nasal flaring retractions tachypnea or accessory muscle use Cardio regular rate Rate: other Other Details: Irregularly irregular rhythm with regular rate consistent with past medical history of chronic atrial fibrillation GI normal to inspection, nondistended, normoactive bowel sounds, non-tender and non-distended GI Narrative: Soft nontender nondistended with normal active bowel sounds no voluntary guarding or rigidity or pulsatile mass Auscultation: normoactive bowel sounds Palpation: soft Back/Spine Back/Spine Narrative: No bony deformity or step-off of the thoracic or lumbar spine no midline pain with palpation Extremity normal to inspection Extremity Narrative: Pelvis is stable there is no shortening or external rotation of either lower extremity Patient is able to move all extremities without difficulty Neuro oriented x3, CN's II-XII intact bilaterally and no sensory deficits noted Sensorium / Orientation: alert Motor Exam: strength 5/5 throughout Psych mental status grossly normal Skin Skin Narrative: Soft tissue swelling with ecchymosis to the right posterior lateral back as documented above otherwise no other areas of abrasions or ecchymosis MDM MDM MDM Narrative Medical decision making narrative: Patient arrived to the ER hypertensive but has a past medical history of this and it is unsure if he took his nighttime medication and he is in pain. He reported mechanical fall so there is no need for cardiac or syncope workup. However with bruising swelling and pain along the right back/rib cage there is concern for rib fracture versus pneumothorax versus hemothorax versus pulmonary contusion versus underlying head trauma such as subdural or subarachnoid hemorrhage. CTs of the head and chest were obtained. Head CT revealed no acute bleed or signs of skull fracture but chest CT did confirm fractures to the right seventh eighth and ninth ribs with hemothorax. Based on the fact he had a trauma leading to multiple rib fractures with blood within the lungs and is on a blood thinner it was felt he should be transferred to higher level of care/trauma center. After the rib fractures with hemothorax was found basic blood work was ordered to ensure he is not anemic and imaging of the cervical spine as well as abdomen and pelvis were obtained to rule out any other signs of trauma or active bleeding. A FAST exam was performed at bedside upon arrival and there was no obvious signs of internal bleeding on that exam. The patient requested transfer to [facility] as he has been there in the past for his bypass surgery. They were contacted and they do agree to except the patient at this time. We discussed providing DDAVP or Andexxa but at this time it has been multiple hours since his last Eliquis dose he is overall hemodynamically stable and not in any distress and therefore was decided to hold off at this point. As the patient is at high risk for potential decompensation based on his hemothorax and blood thinner use he will be transferred to [facility] by mobile ICU. This plan of care was discussed with the patient he is agreeable to it. He was given medication for his hypertension but overall remained hemodynamically stable for his entire ER stay History & Record Review Discussion w/independent historian: Patient Lab Data Attestation: I reviewed the patient's lab results. Labs: Laboratory Results - last 24 hr 04/01/23 03:15 WBC 8.8 RBC 4.02 L Hgb 11.6 L Hct 36.8 L MCV 91.5 MCH 28.9 MCHC 31.5 L RDW Std Deviation 49.1 H RDW Coeff of [place] 14.6 Plt Count 167 MPV 9.2 Immature Gran % (Auto) 0.500 Neut % (Auto) 78.9 H Lymph % (Auto) 11.[address] [place] % (Auto) 8.4 Eos % (Auto) 0.2 Baso % (Auto) 0.5 Absolute Neuts (auto) 7.0 Absolute Lymphs (auto) 1.01 Nucleated RBC % 0 PT 17.7 H INR 1.4 APTT 33.3 Sodium 139 Potassium 3.9 Chloride 108 H Carbon Dioxide 27.0 Anion Gap 4 L BUN 20 H Creatinine 0.71 Estim Creat Clear Calc 73.51 Est GFR (MDRD) Af Amer 136 Est GFR (MDRD) Non-Af 113 BUN/Creatinine Ratio 28.1 H Glucose 161 H Calcium 9.9 Radiography Diagnostic Testing: Clinical Impression(s) from Imaging Studies Brain CT 04/01/23 01:14 IMPRESSION: 1. Chronic involutional changes of the brain. 2. 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 3. No CT evidence of acute intracranial hemorrhage. Electronically Signed: Vicki Mckeon MD at 3:24 EST , Chest CT 04/01/23 01:14 IMPRESSION: 1. Acute displaced right lateral seventh, eighth and ninth rib fractures. 2. Right-sided hemothorax with right lower lobe pulmonary hemorrhage and possible contusion. Electronically Signed: Vicki Mckeon MD at 3:32 EST Reading Location ID and State: [id number] , Service support , Critical Care Time Critical Care Time: Yes Critical care time (excluding procedures): Discussing w/Patient &/or Family/Heating Equipment Installer, Discussing w/Consultants, Arranging Admission or Transfer and - (Critical care time of 33 minutes) Discharge Plan Triage Chief Complaint: Fall ED Provider: Rayray Wiggins Dx/Rx/DC Orders Clinical Impression: Multiple fractures of ribs of right side, Hypertension, Hemothorax on right, Chronic atrial fibrillation, Current use of retirement anticoagulation, Accidental fall Prescriptions: No Action albuterol sulfate [Ventolin HFA] 90 mcg/actuation HFA aerosol inhaler 1 - 2 puff inhalation Q4H PRN PRN (Reason: Wheezing) Qty: 1 0RF acetaminophen [Tylenol] 325 mg Tablet 500 mg PO Q6H PRN (Reason: Pain) clopidogrel [Plavix] 75 mg Tablet 75 mg PO carbamazepine [Tegretol] 200 mg tablet 200 mg PO TID Qty: 270 3RF lisinopril 20 mg tablet 20 mg PO DAILY Qty: 90 3RF atorvastatin [Lipitor] 40 mg tablet 40 mg PO DAILY Qty: 90 3RF metoprolol tartrate 50 mg tablet 50 mg PO BID Qty: 180 3RF diltiazem HCl 240 mg capsule,extended release 24hr 240 mg PO DAILY Qty: 90 3RF Eliquis 5 mg tablet 5 mg PO BID Qty: 180 4RF levothyroxine 50 mcg tablet 50 mcg PO DAILY Qty: 90 3RF Primary Care Provider: Jolly Brady Referrals: Jolly Brady MD [Primary Care Provider] - Disposition Disposition: Acute Care Hospital Discharge Location: [facility]
[2023-04-01 05:35] VITALS: BP 155/22; PULSE 88; RESP 18; TEMP 36.6; O2SAT 93
== END 2023-04-01 05:15 | disposition short-term general hospital (02) ==
PROVIDERS: Emergency Provider Emergency Medicine; PCP Internal Medicine; Visit Provider Emergency Medicine
DX: S27.1XXA Traumatic hemothorax, initial encounter (principal); I48.20 Chronic atrial fibrillation, unspecified; S22.41XA Multiple fractures of ribs, right side, initial encounter for closed fracture; W18.39XA Other fall on same level, initial encounter; Y93.89 Activity, other specified; Y99.8 Other external cause status; Y92.71 Barn as the place of occurrence of the external cause; Z79.01 Long term (current) use of anticoagulants; I25.10 Atherosclerotic heart disease of native coronary artery without angina pectoris; I10 Essential (primary) hypertension; I25.2 Old myocardial infarction; Z95.1 Presence of aortocoronary bypass graft; Z79.02 Long term (current) use of antithrombotics/antiplatelets; Z79.899 Other long term (current) drug therapy; Z87.891 Personal history of nicotine dependence
CPT/HCPCS: 70450; 71250; 72125; 74176; 80048; 85025; 85610; 85730; 96374; 96375; 96376; 99284; A4216; J2405

== ENCOUNTER 2023-04-08 16:40 | Inpatient (IN) | payer MEDICARE, OTHER, SELFPAY ==
[2022-06-17 09:31] VITALS: BMI 29.1
[2023-04-08 17:52] VITALS: BMI 26.2
[2023-04-08 18:00] VITALS: BP 194/95; PULSE 104; RESP 18; TEMP 36.9; O2SAT 96
[2023-04-08] MEDS: cloNIDine HCl 0.1 MG Tablet 0.100000000000000006 MG PO (18:08)
[2023-04-08 19:52] VITALS: BP 123/58; PULSE 83; RESP 16; TEMP 37.2; O2SAT 100
[2023-04-08] MEDS: Magnesium Chloride 64 MG Delay Rel.Tablet 128 MG PO (21:35)
[2023-04-08] MEDS: Senna/Docusate Sodium 1 Tablet 2 TABLET PO (21:35)
[2023-04-08] MEDS: Atorvastatin Calcium 40 MG Tablet PO (21:35)
[2023-04-08] MEDS: APIXABAN 5 MG TABLET PO (21:35)
[2023-04-08] MEDS: Acetaminophen 500 MG Tablet 1000 MG PO (21:36)
[2023-04-08] MEDS: carBAMazepine 200 MG Tablet PO (21:36)
[2023-04-08] MEDS: MELATONIN 3 MG TABLET 9 MG PO (21:36)
[2023-04-08] MEDS: QUEtiapine 25 MG Tablet 12.5 MG PO (21:37)
[2023-04-08 22:00] VITALS: PULSE 94; RESP 16; O2SAT 92
[2023-04-09 04:53] LABS: Mucous, Urine 0 SEEN /hpf (<or=2+); Squamous Epithelial Cells - UA 0 SEEN /hpf (0-5)
[2023-04-09 04:57] LABS: Color, Urine Yellow (Yellow); Glucose, Dipstick Normal (Normal); Ketone-Dipstick Negative (Negative); Leukocyte Esterase-Dipstick 500 /ul (Negative); Nitrite-Dipstick Negative (Negative); Occult Blood-Urine 50 /ul (Negative); Protein-Dipstick 15 mg/dl (Negative); Urine Bilirubin Dipstick Negative (Negative); Urine Clarity Clear (Clear); Urine Urobilinogen 1 mg/dl (Normal)
[2023-04-09] MEDS: carBAMazepine 200 MG Tablet PO ×3 (05:16→21:20)
[2023-04-09] MEDS: Levothyroxine 25 MCG TABLET PO (05:16)
[2023-04-09] MEDS: Acetaminophen 500 MG Tablet 1000 MG PO ×3 (05:16→21:23)
[2023-04-09 05:17] LABS: Bacteria 4+ /hpf (None Seen); Red Blood Cells-Urine 5-10 SEEN /hpf (0-5); White Blood Cells >100 SEEN /hpf (0-5)
[2023-04-09 06:01] LABS: Absolute Lymphocyte Count 1.45 X10^3/uL (0.83-4.51); Absolute Neutrophil Count 4.5 X10^3/uL (2.0-7.7); Basophil# 0.05 X10^3/uL; Basophil% 0.7 % (0-1); Eosinophils% 5.4 % (0-5); Hemoglobin 8.8 g/dL (13.0-16.5); Lymphocyte # 1.45 X10^3/ul (0.83-4.51); Lymphocyte % 19.4 % (19-41); Mean Corp Hgb Conc 31.4 g/dL (32-36); Mean Corpuscular Volume 92.4 fL (80-94); Mean Platelet Vol. 9.2 fl (6.2-12.0); Monocyte# 1.07 X10^3/uL; Monocyte% 14.3 % (0-10); NRBC Flagged by Analyzer 0 % (0-5); Neutrophil # 4.45 X10^3/uL (2.7-7.7); Neutrophil % 59.7 % (47-70); Platelet Count 235 K/mm3 (150-450); RBC Distribution Width SD 47.8 fl (35.1-43.9); Red Blood Count 3.03 M/mm3 (4.6-6.2); White Blood Count 7.5 K/mm3 (4.4-11.0)
[2023-04-09 06:26] LABS: ALB/GLOB Ratio 0.7 RATIO (0.9-2.4); AST(SGOT) 27 U/L (15-37); Alanine Aminotransfer ALT/SGPT 21 U/L (16-61); Albumin, Serum 2.5 g/dL (3.2-5.0); Alkaline Phosphatase 85 U/L (45-117); Anion Gap 3 (5-15); BUN 21 mg/dL (7-18); BUN/Creat Ratio 28.7 RATIO (10-20); Calcium,Total 9.5 mg/dL (8.5-10.1); Chloride 104 mmol/L (98-107); Creatinine, Serum 0.73 mg/dL (0.70-1.30); EST Glomerular Filtration Rate 109 mL/min (>60); Est Glom Filt Rate - Afr Amer 132 mL/min (>60); Estimated Creatinine Clearance 73.51 ml/min; Globulin 3.6 g/dL (2.2-4.2); Glucose 103 mg/dL (74-106); Magnesium 2.2 mg/dL (1.6-2.6); Phosphorus 3.3 mg/dL (2.5-4.9); Protein, Total 6.1 g/dL (6.4-8.2); Sodium Level 136 mmol/L (136-145)
[2023-04-09 07:27] VITALS: BP 164/83; PULSE 80; RESP 16; TEMP 36.6; O2SAT 100
[2023-04-09] MEDS: Aspirin 81 MG TAB.CHEW PO (08:14)
[2023-04-09] MEDS: Lisinopril 5 MG Tablet PO (08:14)
[2023-04-09] MEDS: dilTIAZem CD 240 MG Capsule PO (08:14)
[2023-04-09] MEDS: Lidocaine 5% Patch 1 PATCH TOPICAL (08:14)
[2023-04-09] MEDS: Senna/Docusate Sodium 1 Tablet 2 TABLET PO (08:15)
[2023-04-09] MEDS: Magnesium Chloride 64 MG Delay Rel.Tablet 128 MG PO ×2 (08:15→21:22)
[2023-04-09] MEDS: APIXABAN 5 MG TABLET PO ×2 (08:15→21:21)
[2023-04-09] MEDS: Menthol/Lanolin/Calamine/Znox 113 GM Tube 1 APPLIC TOPICAL ×2 (08:15→22:45)
[2023-04-09 08:26] VITALS: O2SAT 92
--- NOTE | 2023-04-09 09:20 | HP.PCM_ITS ---
[facility] - General General Date of Admission: 04/08/23 Date of Service: 04/09/23 Chief Complaint: multiple rib fractures HPI Narrative OLGA CREWS, is a 83 YO M with a PMH of chronic AF, chronic anticoagulation with Eliquis, HLD, HTN, CAD, hx of NSTEMI, Hx of CABG, trigeminal neuralgia, history of meningioma and hypothyroidism who presented to the ED at [facility] on 04/01/2023 c/o R rib pain after a fall. CT chest showed acute minimally displaced fractures of the lateral right-sided ninth, eighth and seventh ribs. There was soft tissue emphysema adjacent to the right sided ribs within the chest wall. Bones appeared osteopenic. CT of the abdomen/pelvis showed a right-sided hemothorax with right side pulmonary hemorrhage and contusions secondary to multiple right-sided rib fractures and no CT evidence of acute intra-abdominal disease. CT head showed no acute processes. There was an old right occipital lobe infarct present He was transferred to [facility] hospital for further trauma evaluation. A chest tube was placed on the R. The CT was placed to water seal on 04/05/23 and removed on 04/07/2023. He required no surgical intervention for rib fractures. He was transferred to acute inpt rehab at [facility] on 04/08/23 for 3 hours of therapy daily to restore function/independence at or near his level prior to the trauma. While at [facility] he had delirium and was requiring a sitter. He apparently had delirium through the night prior to transfer and we were told that the delirium had resolved. He was transferred on no sedating medications and on no pain meds. 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 There were no acute changes. BP at arrival on rehab was 194/95. He received Catapres and the BP 1 hour later was 123/58. This morning it is 164/83. BP's were uncontrolled when he uncontrolled at presentation to [facility] Ed and while he was at [facility]. Adjustments to the antihypertensive regimen were made at [facility]. He is afebrile. Other complications at [facility] were bradycardia with HR's in the 30-40 range. Metoprolol was discontinued and he continued on Cardizem. Heart rate is ranged from 80-104. He is maintaining an appropriate oxygen saturation on room air and it has ranged from 92 to 100%. All lab drawn this morning was personally reviewed. Hemoglobin is 8.8, down from 11.6 on the calcium, phosphorus and magnesium are all within normal limits. LFTs are normal. TSH in January was mildly increased at 4.86 with a free T4 of 0.63 which is mildly decreased. Repeat TSH at [facility] was normal at 2.32. T3 and T4 were both mildly decreased and this is consistent with euthyroid sick syndrome. No changes in the levothyroxine dose are indicated. Night nursing reports that he slept well last night. I ordered Tramadol for him PRN but, he pain has been controlled with Acetaminophen 1,000 mg Q 8H ELMO. Restrictions: no lifting > 10-15 lbs and no strenuous exercise for 4 weeks. He was started back on Eliquis prior to transfer to [place]. [facility] Medical History (Updated 04/09/23 @ 11:[address] Brandee Monterroso, ) Atherosclerotic heart disease of [place] coronary artery without angina pectoris Back problem Brainstem tumor Fall Hearing problem History of hypothyroidism Hyperlipemia Hypertension Longstanding persistent atrial fibrillation Non-ST elevated myocardial infarction Trigeminal nerve disease Unstable angina Home Medications carbamazepine 200 mg tablet (Tegretol) 200 mg PO TID seziures #270 tabs 06/17/22 [Rx Last Taken Unknown] diltiazem HCl 240 mg capsule,extended release 24 hr 240 mg PO DAILY blood pressure #90 caps 12/16/22 [Rx Last Taken 04/08/23] apixaban 5 mg tablet (Eliquis) 5 mg PO BID AFIB #180 tabs 01/29/23 [Rx Last Taken 04/08/23] acetaminophen 500 mg tablet 1,000 mg PO Q8 pain 04/08/23 [History Last Taken Unknown] albuterol sulfate 90 mcg/actuation aerosol inhaler (Ventolin HFA) 1 puff inhalation Q4H PRN PRN Wheezing 04/08/23 [History Last Taken Unknown] aspirin 81 mg chewable tablet 1 tab PO DAILY heart health 04/08/23 [History Last Taken 04/08/23] atorvastatin 40 mg tablet (Lipitor) 40 mg PO QHS cholesterol 04/08/23 [History Last Taken 04/07/23] ergocalciferol (vitamin D2) 1,250 mcg (50,000 unit) capsule 1,250 mcg PO QWEEK supplement 04/08/23 [History Last Taken 04/06/23] ipratropium 0.5 mg-albuterol 3 mg (2.5 mg base)/3 mL nebulization soln 3 ml inhalation Q6H PRN wheezing/SOB 04/08/23 [History Last Taken Unknown] levothyroxine 25 mcg tablet 25 mcg PO DAILY thyroid 04/08/23 [History Last Taken 04/08/23] lidocaine 5 % topical patch (Lidoderm) 1 patch topical DAILY pain 04/08/23 [History Last Taken Unknown] lisinopril 5 mg tablet 5 mg PO DAILY Blood Pressure 04/08/23 [History Last Taken 04/08/23] magnesium oxide 400 mg PO BID supplement 04/08/23 [History Last Taken 04/08/23] melatonin 3 mg tablet 9 mg PO QHS sleep 04/08/23 [History Last Taken 04/07/23] Allergy/AdvReac Type Severity Reaction Status Date / Time No Known Allergies Allergy Verified 04/01/23 01:18 Family History unable to obtain Surgical History (Updated 04/09/23 @ 11:[address] Brandee Monterroso DO) History of chest tube placement History of prostate surgery Hx of skin graft Hx of tonsillectomy Status post aorto-coronary artery bypass graft Social History Smoking Status: Former smoker how long ago did patient quit smokin02/08/1969 alcohol intake: never substance use type: does not use what type of physical activity do you participate in: none ROS Constitutional Constitutional: Reports fatigue and weakness; Denies anorexia, change in weight, chills, fever(s) or night sweats Eyes Eyes: Denies blurry vision, change in vision, eye pain or loss of vision ENT HEENT: Reports abnormal hearing and hearing loss; Denies dizziness, dysphagia, headache(s), nasal congestion or sore throat Cardiovascular Cardiovascular: Reports chest pain and other Details: Chest pain is localized to the R chest and is due to recent fall resulting in multiple R rib fractures. ; Denies dyspnea on exertion, edema, lightheadedness, orthopnea, palpitations, paroxysmal nocturnal dyspnea or syncope Respiratory/Chest Respiratory/Chest: Reports cough; Denies dyspnea, shortness of breath at rest, shortness of breath with exertion or wheezing Gastrointestinal Gastrointestinal: Denies abdominal pain, constipation, diarrhea, dyspepsia, hematemesis, hematochezia, nausea or vomiting Genitourinary Genitourinary: Denies dysuria, hematuria, nocturia, urinary frequency, urinary hesitancy, urinary incontinence or urinary urgency Musculoskeletal Musculoskeletal: Denies back pain, joint pain, joint swelling or neck pain Integumentary Integumentary: Reports dry skin, wounds and other Details: There is a wound to the right chest secondary to recent chest tube placement for right hemothorax ; Denies jaundice or rash Neurologic Neurologic: Reports other; Denies confusion, disequilibrium, dizziness, focal weakness, headache(s), paresthesias, seizures or tremor(s) Psychiatric Psychiatric: Reports other Details: He had delirium at the previous hospital......including the night prior to transfer ; Denies anxiety, depression, homicidal ideation or suicidal ideation Endocrine Endocrinology: Reports fatigue; Denies change in body appearance, cold into lerance, polydipsia or polyuria Hematologic/Lymphatic Hematologic/Lymphatic: Reports easy bleeding and easy bruising; Denies lymphadenopathy Allergic/Immunologic Allergic/Immunologic: Denies rhinitis, eczemia or asthma Vital Signs Vital Signs Vital Signs: 04/08/23 18:00 04/08/23 19:52 04/08/23 22:00 Temperature 98.5 F 98.9 F Temperature Source Temporal Temporal Pulse Rate 104 H 83 94 Respiratory Rate 18 16 16 Respiratory Effort Normal Non-Labored Respiratory Depth Normal Respiratory Pattern Normal Blood Pressure 194/95 H 123/58 H Blood Pressure Mean 128 79 Blood Pressure Source Monitor Monitor Blood Pressure Position Semi-Fowlers Semi-Fowlers Blood Pressure Location Right Arm Left Arm Pulse Ox 96 100 92 Oxygen Delivery Method Room Air Room Air Room Air 04/09/23 07:27 04/09/23 08:26 Temperature 98 F Temperature Source Temporal Pulse Rate 80 Respiratory Rate 16 Respiratory Effort Respiratory Depth Respiratory Pattern Blood Pressure 164/83 H Blood Pressure Mean 110 Blood Pressure Source Monitor Blood Pressure Position Semi-Fowlers Blood Pressure Location Left Arm Pulse Ox 100 92 Oxygen Delivery Method Room Air Room Air Weight Weight: 182 lb 8.684 oz Body Mass Index (BMI) 26.2 Physical Exam Const alert, oriented x3, no apparent distress, average body habitus and healthy appearing General Appearance: cooperative, well kempt and well developed HEENT HEENT Narrative: some hearing difficulty.....he has hearing aids but, family has no brought them in yet. Mucous membranes are moist. Head and Scalp: normocephalic and atraumatic Mouth: No mouth trauma and No thrush Eyes PERRL, EOMs intact bilaterally, conjunctivae normal and no scleral icterus Eyes Narrative: No discharge from the eye and no mattering of the eyelashes. Neck supple Chest Chest Narrative: Pain with palpation of the right chest around the site of previous chest tube. No erythema around the dressing and only a small spot of dried serosanguineous drainage on the dressing. He is splinting the R chest when taking deep breaths due to pain. He tells me that the pain in the R chest is gradually decreasing. Resp Resp Narrative: Very diminished on the R side , better air exchange on the left. No wheezes or crackles. Not tachypneic. Resp is not labored. No conversational dyspnea. Effort and Inspection: able to speak in complete sentences Cardio Cardio Narrative: irreg, irreg with controlled VR. No MM and no gallop. Jugular Venous Distention: Negative for JVD GI normal to inspection, nondistended, normoactive bowel sounds and soft to palpation GI Narrative: No guarding with palpation, no HS and no masses. Back/Spine no CVA tenderness and normal to inspection Extremity no calf tenderness Extremity Narrative: Trace edema of the Left ankle only. V graft for CABG was likely taken from the left leg. He tells me that this is normal for him. No clubbing and no cy anosis. Peripheral Pulses: Yes pulses 2+ throughout Skin Skin Narrative: He has a bandage over the chest tube site in the right lower chest and the bandage has a very small amount of dried serosanguineous discharge. There is no erythema and no significant swelling around the site. He has some tenderness to palpation with the area immediately around the chest tube site. General Skin Exam: dry skin; Negative for jaundice Neuro oriented x3, CN's II-XII intact bilaterally, moves all extremities, no focal motor deficits and no sensory deficits noted Psych mental status grossly normal and cooperative; Negative for denies hallucinations, denies homicidal ideation or denies suicidal ideation Psych Narrative: He is very pleasant and talkative. He is appropriate and calm. He is able to stay on topic when I am speaking with him. Appearance: grossly normal, appropriate and well kempt Attitude: calm Activity / Motor Behavior: appropriate eye contact Speech: normal speech Mood & Affect: euthymic mood Results Lab / Micro Data 04/09/23 05:14 04/09/23 05:14 Labs: Laboratory Results - last 24 hr 04/09/23 04:40: Urine Color Yellow, Urine Clarity Clear, Urine pH 7.0, Ur Specific [place] 1.010, Urine Protein 15 H, Urine Glucose (UA) Normal, Urine Ketones Negative, Urine Occult Blood 50 H, Urine Nitrite Negative, Urine Bilirubin Negative, Urine Urobilinogen 1 H, Ur Leukocyte Esterase 500 H, Urine RBC 5-10 SEEN, Urine WBC >100 SEEN, Ur Squamous Epith Cells 0 SEEN, Urine Bacteria 4+, Urine Mucus 0 SEEN 04/09/23 05:14: WBC 7.5, RBC 3.03 L, Hgb 8.8 L, Hct 28.0 L, MCV 92.4, MCH 29.0, MCHC 31.4 L, RDW Std Deviation 47.8 H, RDW Coeff of [place] 14.0, Plt Count 235, MPV 9.2, Immature Gran % (Auto) 0.500, Neut % (Auto) 59.7, Lymph % (Auto) 19.4, [place] % (Auto) 14.3 H, Eos % (Auto) 5.4 H, Baso % (Auto) 0.7, Absolute Neuts (auto) 4.5, Absolute Lymphs (auto) 1.45, Nucleated RBC % 0, Sodium 136, Potassium 4.0, Chloride 104, Carbon Dioxide 29.0, Anion Gap 3 L, BUN 21 H, Creatinine 0.73, Estim Creat Clear Calc 73.51, Est GFR (MDRD) Af Amer 132, Est GFR (MDRD) Non-Af 109, BUN/Creatinine Ratio 28.7 H, Glucose 103, Calcium 9.5, Phosphorus 3.3, Magnesium 2.2, Total Bilirubin 0.50, AST 27, ALT 21, Alkaline Phosphatase 85, Total Protein 6.1 L, Albumin 2.5 L, Globulin 3.6, Albumin/Globulin Ratio 0.7 L Assessment & Plan Assessment/Plan (1) Physical debility: (2) Fall: QUALIFIERS: Encounter type: subsequent encounter Qualified Co de(s): W19.XXXD - Unspecified fall, subsequent encounter (3) Multiple fractures of ribs of right side: (4) Hemothorax on right: (5) History of chest tube placement: (6) Acute on chronic anemia: (7) Uncontrolled hypertension: (8) Urine retention: (9) Euthyroid sick syndrome: PLAN: Normal TSH with low T3 and T4. (10) Longstanding persistent atrial fibrillation: PLAN: Rate controlled. 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 Analgesics as needed Bowel protocol Fall precautions Assess for Anxiety/Depression GI prophylaxis -not currently on a PPI or an H2 jerad. He denies nausea/vomiting/abdominal pain/heartburn and has a good appetite. Will continue to monitor for any signs of epigastric pain/heartburn. DVT prophylaxis- He is on Eliquis chronically for AF Follow up with [facility], Dr. Jolly Brady and the trauma surgeon at [facility] following DC from [facility] Re[facility] AM lab including CMP, CBC, Mag and Phos -personally reviewed PA and lateral chest x-ray today for diminished breath sounds in the right base Check a Hemoccult stool Cancel/reschedule appts for follow up with surgery until he is discharged from rehab. He normally uses a WW at home for ambulation and if it is a longer distance he has someone with him. He tells me that he takes care of the horses.....wondering what he was doing using a wheelbarrow? Will discuss safety with his family. Wait to see the other postvoid residuals prior to adding Flomax. Continue Seroquel 12.5 mg nightly for a couple days and if he continues to sleep well we will try discontinuing early next week. Continue tramadol for breakthrough pain Obtain records from Dr. Brady Decrease melatonin to 3 mg p.o. nightly. Continue clonidine 0.1 mg every 8 hours as needed uncontrolled blood pressure Vital signs every 4 hours while awake so that we can adjust antihypertensives to get the blood pressure under control. 75 minutes spent reviewing past diagnostic tests, lab results, vital sign trends, medical history, medications, all additional paperwork sent by [facility], and ordering medications, examining the the patient and completing documentation. Charges/Coding Visit Charges Inpatient E&M: 79542 Init Hosp L2
--- NOTE | 2023-04-09 10:51 | RAD_ITS ---
STUDY: X-RAY CHEST REASON FOR EXAM: Male, 83 years old. Follow up on R hemothorax. TECHNIQUE: PA and lateral views of the chest. COMPARISON: Comparison is made with prior study dated May 03, 2022. FINDINGS: Progressive right-sided pleural effusion with consolidation in the right lower lobe. An air-fluid level is seen along the posterior aspect. This may represent either loculated hydropneumothorax versus a possible abscess formation. There is no demonstrated pleural abnormality. Sternal cerclage wires and vascular clips are present from a prior sternotomy and coronary artery bypass graft procedure (CABG). Normal mediastinum and janie. Normal visualized pulmonary arteries. There is atherosclerotic calcification of the aortic arch with tortuosity. There is demineralization of the osseous structures. There are nondisplaced fractures of the right seventh eighth and ninth ribs anterolaterally. There is no demonstrated abnormality of the visualized soft tissue structures of the upper abdomen. RAD/Chest PA and Lateral IMPRESSION: Progressive right pleural effusion with right lower lobe consolidation with an air-fluid level. This may represent either loculated hydropneumothorax versus possible abscess. Nondisplaced fractures of the anterolateral aspect of the right seventh eighth and ninth ribs. Electronically Signed: Jose Carrillo MD at 12:59 EST ,
--- NOTE | 2023-04-09 11:35 | PCM.RU.PYE ---
Admission Information Primary Diagnosis:: Physical debility post fall with multiple rib fractures and hemothorax. Status Changes from Prescreening?: No changes Identified Actual Problem List:: Bleeding, Falls, Skin Intergrity, Pain, ALteration in Cmfrt, Alteration in Sleep, Mobility Impaired, Self Care Deficit, BP, Hypertension, Alteration/ Air Exchange and Alteration-Leisure Activ. Potential Problem List:: DVT, Bleeding, Infection, UTI, Aspiration, Falls, Skin Integrity and Depression Risk of Complications DVT: AUGUSTA Harris and - (Eliquis 5 mg p.o. twice daily for chronic persistent atrial fibrillation) Bleeding: Monitor Lab Values, Nursing to Teach Precautions for anti-coagulation therapy., Wound, if applicable, to be assessed every shift. and Stroke patients assessed for lethargy or change in status. Infection: Clinical Staff to Monitor for S/S of infection: and S/S of infection include fever, redness, warmth, etc. Urinary Tract Infection: Monitor for frequency, burning, discomfort, or incontinence. and Nursing will obtain urine sample for urinalysis and C&S when ordered. Aspiration: Clinical staff will monitor for coughing, drooling, congestion., Speech will evaluate swallowing and dsyphasia. and Nursing will monitor patient swallowing during meals. Falls: Patient will be evaluated for Fall Precautions and Patient will be placed on Fall Precautions as indicated per protocol. Skin Breakdown: Nursing will assess skin daily using assessment tool. and Nursing will place on Skin Breakdown Precautions as indicated. Pain: Clinical staff will assess patient's pain level per protocol., Medications will be given, if needed, and the pain level reassessed. and Other methods: Massage, distraction, decrease stimulus, etc. used PRN. Plan of Care Patient requires physician specializing in physical medicine and rehab oversight to provide close medical supervision of rehab issues including: Pain Management, Sleep Problems, Bowel and Bladder, Medical and co-morbidity Management, DVT prophylaxis, Rehabilitation Leadership and Coordination of treatment team Patient needs Physical Therapy: For a minimum of 1 hour and At least 5 out of 7 days Patient needs Physical Therapy to improve:: Mobility, Strengthening, Transfers, Stretching, ROM, Endurance, Stairs, Gait and Balance Patient needs Occupational Therapy: For a minimum of 1 hour and At least 5 out of 7 days Patient needs Occupational Therapy to improve ADL's incl.: Eating, Grooming, Bathing, Dressing, Toileting, Toilet transfers, Community Reintegration, Higher functioning activities, Household tasks, Adaptive Equipment, Splinting and Other activities as determined Patient requires speech therapy: For a minimum of 1 hour and At least 5 out of 7 days Patient requires speech therapy for: Swallowing, Cognition, Language Skills and Compensatory Strategies Patient requires 24/7 Rehabilitation Nursing for: Pain Issues, Identifying and preventing risk factors, Monitoring and reporting current medical conditions, Assisting with ambulation, transfer, and all ADL's, Teaching patients about disease process and medications, Family teaching, Providing safe environment, Bowel and Bladder Issues, Skin integrity and Medication Management Patient needs Material Requirements Worker/ Case Management for: Discharge Planning, Arranging Home Equipment or Services and Family Interventions Patient needs Dietary and Nutrition Services for: Adequate Nutrition, Nutritional Supplements and Nutritional Education Goals Goals Patient will remain: free from falls Patient will perform eating at: MOD I level of assist. Patient will perform bed mobility at: MOD I level of assist. Patient will complete transfers from bed to chair at: MOD I level of assist. Patient will ambulate: 50 feet (50 feet without a device on various surfaces at mod I. 165 feet with a wheeled walker) Patient will complete upper body dressing at: MOD I level of assist. Patient will complete lower body dressing at: MOD I level of assist. Patient will complete toilet transfer at: MOD I level of assist. Patient will complete toileting at: MOD I level of assist. Patient will perform bathing at: MOD I level of assist. Patient will perform Tub/Shower transfer at: MOD I level of assist. Patient will complete grooming at: MOD I level of assist. Patient will complete home management skills at: MOD I level of assist. Patient will achieve: 12 stairs (He will ascend/descend 12 steps with 1 handrail at standby assist to allow access to his basement. He will complete 1 curb step for community access with the least restrictive device at standby assist to allow access for his doctors appointments.) Patient will have pain level of: of 3 or less Patient's skin will: remain intact Patient will receive: adequate nutrition. Discharge Planning Pt Prognosis for Sig. Practical Improv. w/in Reasonable Time: Good Estimated Length of stay (days): 21 Anticipated D/C Destination: Home Was Preadmission Assessment Accurate?: Yes
[2023-04-09] MEDS: Amox/Clavulanate 500 MG Tablet PO (12:18)
[2023-04-09 12:22] VITALS: BP 150/84
[2023-04-09 13:34] VITALS: BP 149/81; BP 150/68; BP 160/63; PULSE 105; PULSE 68; PULSE 89
--- NOTE | 2023-04-09 17:06 | NURSING ---
pt daughter Joanne made aware of team.
[2023-04-09] MEDS: Tamsulosin HCl 0.4 MG Capsule 0.400000000000000022 MG PO (17:15)
[2023-04-09 18:20] VITALS: BP 160/82; PULSE 102
[2023-04-09] MEDS: MELATONIN 3 MG TABLET PO (21:22)
[2023-04-09] MEDS: QUEtiapine 25 MG Tablet 12.5 MG PO (21:22)
[2023-04-09] MEDS: Atorvastatin Calcium 40 MG Tablet PO (21:22)
[2023-04-09 22:00] VITALS: BP 140/74; PULSE 78; RESP 18; TEMP 36.7; O2SAT 95
[2023-04-10] MEDS: Acetaminophen 500 MG Tablet 1000 MG PO ×3 (05:15→21:42)
[2023-04-10] MEDS: carBAMazepine 200 MG Tablet PO ×3 (05:15→20:48)
[2023-04-10] MEDS: Levothyroxine 25 MCG TABLET PO (06:35)
[2023-04-10 07:00] VITALS: BP 152/84; PULSE 95; RESP 18; TEMP 37.2; O2SAT 96
[2023-04-10] MEDS: Aspirin 81 MG TAB.CHEW PO (08:43)
[2023-04-10] MEDS: dilTIAZem CD 240 MG Capsule PO (08:43)
[2023-04-10] MEDS: Lidocaine 5% Patch 1 PATCH TOPICAL (08:44)
[2023-04-10] MEDS: APIXABAN 5 MG TABLET PO ×2 (08:44→21:41)
[2023-04-10] MEDS: Lisinopril 5 MG Tablet PO (08:46)
[2023-04-10] MEDS: Senna/Docusate Sodium 1 Tablet 2 TABLET PO (08:46)
[2023-04-10] MEDS: Magnesium Chloride 64 MG Delay Rel.Tablet 128 MG PO ×2 (08:46→21:41)
[2023-04-10] MEDS: Menthol/Lanolin/Calamine/Znox 113 GM Tube 1 APPLIC TOPICAL ×2 (08:49→21:42)
[2023-04-10] MEDS: traMADol 50 MG Tablet PO (10:29)
[2023-04-10 11:56] VITALS: BP 126/63; PULSE 78
[2023-04-10] MEDS: Tamsulosin HCl 0.4 MG Capsule 0.400000000000000022 MG PO (17:44)
[2023-04-10 17:50] VITALS: BP 158/89; PULSE 84; RESP 17; TEMP 37.1; O2SAT 98
[2023-04-10] MEDS: cloNIDine HCl 0.1 MG Tablet 0.100000000000000006 MG PO (21:40)
[2023-04-10] MEDS: MELATONIN 3 MG TABLET PO (21:41)
[2023-04-10] MEDS: QUEtiapine 25 MG Tablet 12.5 MG PO (21:41)
[2023-04-10] MEDS: Atorvastatin Calcium 40 MG Tablet PO (21:41)
[2023-04-10 22:00] VITALS: BP 176/81; PULSE 91; RESP 17; TEMP 37.3; O2SAT 96
[2023-04-11] MEDS: carBAMazepine 200 MG Tablet PO ×3 (04:55→20:25)
[2023-04-11] MEDS: Acetaminophen 500 MG Tablet 1000 MG PO ×3 (05:01→22:17)
[2023-04-11] MEDS: Levothyroxine 25 MCG TABLET PO (06:27)
[2023-04-11 07:00] VITALS: BP 150/80; PULSE 86; RESP 18; TEMP 37.2; O2SAT 97
[2023-04-11] MEDS: dilTIAZem CD 240 MG Capsule PO (08:37)
[2023-04-11] MEDS: Aspirin 81 MG TAB.CHEW PO (08:37)
[2023-04-11] MEDS: Lidocaine 5% Patch 1 PATCH TOPICAL (08:38)
[2023-04-11] MEDS: Magnesium Chloride 64 MG Delay Rel.Tablet 128 MG PO ×2 (08:38→22:17)
[2023-04-11] MEDS: APIXABAN 5 MG TABLET PO ×2 (08:38→22:17)
[2023-04-11] MEDS: Lisinopril 5 MG Tablet PO (08:38)
[2023-04-11] MEDS: Senna/Docusate Sodium 1 Tablet 2 TABLET PO ×2 (08:38→22:18)
[2023-04-11] MEDS: Menthol/Lanolin/Calamine/Znox 113 GM Tube 1 APPLIC TOPICAL ×2 (08:39→20:32)
[2023-04-11] MEDS: Smz/Tmp Ds Tablet 1 TABLET PO ×2 (11:08→17:40)
[2023-04-11 11:09] VITALS: BP 145/75; PULSE 84
[2023-04-11] MEDS: Tamsulosin HCl 0.4 MG Capsule 0.400000000000000022 MG PO (17:41)
[2023-04-11 17:44] VITALS: BP 155/62; PULSE 93
[2023-04-11 22:00] VITALS: BP 173/106; PULSE 98; RESP 16; TEMP 36.8; O2SAT 99
[2023-04-11] MEDS: Atorvastatin Calcium 40 MG Tablet PO (22:17)
[2023-04-11] MEDS: QUEtiapine 25 MG Tablet 12.5 MG PO (22:17)
[2023-04-11] MEDS: MELATONIN 3 MG TABLET PO (22:17)
[2023-04-11] MEDS: cloNIDine HCl 0.1 MG Tablet 0.100000000000000006 MG PO (22:30)
[2023-04-12] MEDS: carBAMazepine 200 MG Tablet PO ×3 (05:09→21:05)
[2023-04-12 06:00] VITALS: BP 154/72; PULSE 80; RESP 20; TEMP 37.2; O2SAT 96
[2023-04-12] MEDS: Acetaminophen 500 MG Tablet 1000 MG PO ×3 (06:23→22:13)
[2023-04-12] MEDS: Levothyroxine 25 MCG TABLET PO (06:23)
[2023-04-12] MEDS: APIXABAN 5 MG TABLET PO ×2 (07:45→22:15)
[2023-04-12] MEDS: Smz/Tmp Ds Tablet 1 TABLET PO ×2 (07:45→17:12)
[2023-04-12] MEDS: Aspirin 81 MG TAB.CHEW PO (07:45)
[2023-04-12] MEDS: dilTIAZem CD 240 MG Capsule PO (07:45)
[2023-04-12] MEDS: Lidocaine 5% Patch 1 PATCH TOPICAL (07:46)
[2023-04-12] MEDS: Magnesium Chloride 64 MG Delay Rel.Tablet 128 MG PO ×2 (07:47→22:14)
[2023-04-12] MEDS: Lisinopril 5 MG Tablet PO (07:47)
[2023-04-12] MEDS: Senna/Docusate Sodium 1 Tablet 2 TABLET PO ×2 (07:47→22:13)
--- NOTE | 2023-04-12 11:20 | PCM.PROGNOTE ---
Subjective Subjective Margaret was seen on team rounds today. Margaret's daughter Joanne was present in the room for rounds. She is aware that he lacks judgement at times. Both her mother and father have not been wanting to face that they have been declining. Margaret's is physically disabled but, she is able to take care of finances and help with medications. Jazzy also helps with medications. Margaret is able to physically assist his in the house. By the end of the meeting Margaret realized that he likely needs to quit walking up to the barn with no assistive device to take care of horses. We explained we are concerned about his safety. his was very tearful on rounds and all he wants is to go home so he can take care of his . Bactrim day # 2/ for MRSA urinary tract infection Afebrile VSS-blood pressures remain uncontrolled. Blood pressures for the past 3 days have ranged from 126/63 to 173/106. Heart rates have ranged from 78-98. No bradycardia. Maintaining appropriate oxygen saturation on RA Oral intake - FOOD very good FLUIDS good Discussed with nursing - no problems that need addressed Reviewed the THERAPY notes Medication list reviewed. Denies rib pain. He denies SOB at rest but, when ambulating without an AD he became SOB and had to sit down and rest. No coughing. Has not requested an aerosol treatment. Not tachypneic at rest. Denies suprapubic pain, penile pain, calf pain, cephalgia, lightheadedness. Margaret denies feeling depressed. He is sad that he is not at home helping his Kimmie. They have only been apart 3 times in the 57 years they have been . He is willing to sell his horses so that he does not have to care for them. Objective Data Objective Data Vital Signs: Vital Signs Temp Pulse Resp BP Pulse Ox O2 Del Method 99.0 F 80 20 H 154/72 H 96 Room Air 04/12/23 06:00 04/12/23 06:00 04/12/23 06:00 04/12/23 06:00 04/12/23 06:00 04/12/23 09:01 Oxygen Delivery Method Room Air Weight: 182 lb 8.684 oz Body Mass Index (BMI) 26.2 Intake & Output: Intake and Output for Last 24 Hours 04/10/23 04/11/23 04/12/23 23:59 23:59 23:59 Intake Total 2130 / 2330 2320 / 2320 580 / 580 Output Total 1350 / 2100 5 / 207 650 / 650 Balance 780 / 230 245 / 245 -70 / -70 Lab / Micro Data 04/09/23 05:14 04/09/23 05:14 Micro: Microbiology 04/09/23 04:40 Urine Catheter - Catheter Urine Culture - Final Meth. resistant Staph. aureus Physical Exam Const alert, oriented x3 and no apparent distress Constitutional Narrative: He is sitting in the recliner and appears comfortable. General Appearance: cooperative HEENT moist oral mucous membranes Resp Resp Narrative: He has diminished breath sounds in the right base however there is more air exchange than there was at admission to rehab. No wheezing. There are a few coarse crackles in the right base. He is able to take a deep breath without coughing. He denies any rib breaking when taking a deep breath. He is not tachypneic at rest and has no conversational dyspnea. Effort and Inspection: Negative for labored Cardio Cardio Narrative: irreg irreg rhythm with controlled ventricular response. He denies palpitations. Denies orthopnea. GI normal to inspection, nondistended, normoactive bowel sounds, soft to palpation and non-tender GI Narrative: No guarding with palpation Extremity no calf tenderness General Extremity: Negative for edema Skin Wound Narrative: The wound created by the chest tube in the right chest is healing. There is a small spot of dried serosanguineous drainage on the bandage but there is no erythema around the puncture site and no swelling. He did Norovirus with palpation of the area around the previous chest tube Neuro CN's II-XII intact bilaterally and no focal motor deficits Psych Psych Narrative: Tearful and realizes he could be depressed with the recent events but, he tells himself he is not going to go there. She is sleeping well at night and he has a good appetite. He is cooperative with therapy and never refuses to do therapy. He is tearful but, I would not call him depressed at this time. Appearance: appropriate Attitude: No agitated Activity / Motor Behavior: Negative for restless Mood & Affect: Negative for anxious Assessment & Plan Assessment/Plan (1) Physical debility: (2) Multiple fractures of ribs of right side: (3) Uncontrolled hypertension: (4) Urine retention: PLAN: Etiology undetermined at this time. With his age he may have BPH but could also have prostate cancer. He could also have a neurogenic bladder. He denies any back pain or pain that radiates into his legs but, after reviewing the EMR he has apparently complained of back pain in the past. PLAN: Plan 1. Continue therapy 2. DC clonidine. Start doxazosin 1 mg p.o. nightly 3. Hydralazine 10 mg every 6 hours as needed systolic greater than 160 or diastolic greater than 90 4. CMP and CBC in the AM 5. Orthostatics daily X 3 days. Denies lightheadedness. 6. Continue the Bactrim for a total of 7 days. Can not increase the Lisinopril while he is on Bactrim due to a drug interaction. 7. He is very unaware of his deficits. Poor safety awareness. Balance is poor and he is at risk for falls. His story about how often he uses a WW at home changes from day to day. 8. Voiding trial at the end of the week. I informed Margaret and Joanne that he has had CVA's in the past even though he has never been diagnosed with this. There are areas of encephalomalacia within the posterior right occipital lobe and there is mild cerebellar atrophy. He had a CT scan of the brain done in 2013 that showed a possible left cerebellar stroke. MRI done in 2015 showed no evidence of prior strokes. 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 I suspect these posterior strokes contribute to his poor balance/proprioception. All Zia's questions were answered while on team rounds. Charges/Coding Visit Charges Inpatient E&M: 84834 Subs Hosp L2
[2023-04-12 12:00] VITALS: BP 142/67; PULSE 76; RESP 20; TEMP 36.5; O2SAT 98
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
[2023-04-12] MEDS: Menthol/Lanolin/Calamine/Znox 113 GM Tube 1 APPLIC TOPICAL ×2 (14:01→22:18)
[2023-04-12] MEDS: Tamsulosin HCl 0.4 MG Capsule 0.400000000000000022 MG PO (17:12)
[2023-04-12 17:16] VITALS: BP 158/80; PULSE 71; RESP 18; O2SAT 96
[2023-04-12 22:00] VITALS: BP 187/91; PULSE 87; RESP 15; RESP 16; TEMP 37.2; O2SAT 96
[2023-04-12] MEDS: QUEtiapine 25 MG Tablet 12.5 MG PO (22:13)
[2023-04-12] MEDS: Atorvastatin Calcium 40 MG Tablet PO (22:13)
[2023-04-12] MEDS: Doxazosin 1 MG Tablet PO (22:13)
[2023-04-12] MEDS: MELATONIN 3 MG TABLET PO (22:13)
[2023-04-12 22:33] VITALS: BP 187/91; PULSE 87
[2023-04-12] MEDS: hydrALAZINE 10 MG Tablet PO (22:33)
[2023-04-12 23:58] VITALS: BP 164/72; PULSE 76
[2023-04-13] VITALS (9 sets, daily range): BP systolic 100–168; BP diastolic 46–80; PULSE 67–97; RESP 15–18; TEMP 36.5–37.4; O2SAT 94–97
[2023-04-13] MEDS: carBAMazepine 200 MG Tablet PO ×3 (06:00→20:59)
[2023-04-13 06:14] LABS: Absolute Lymphocyte Count 1.37 X10^3/uL (0.83-4.51); Absolute Neutrophil Count 4.3 X10^3/uL (2.0-7.7); Basophil# 0.04 X10^3/uL; Basophil% 0.6 % (0-1); Eosinophil# 0.36 X10^3/uL; Eosinophils% 5.2 % (0-5); Hematocrit 24.5 % (40-54); Hemoglobin 7.9 g/dL (13.0-16.5); Lymphocyte # 1.37 X10^3/ul (0.83-4.51); Lymphocyte % 19.6 % (19-41); Mean Corp Hgb Conc 32.2 g/dL (32-36); Mean Corpuscular Volume 90.1 fL (80-94); Mean Platelet Vol. 8.8 fl (6.2-12.0); Monocyte# 0.87 X10^3/uL; Monocyte% 12.5 % (0-10); NRBC Flagged by Analyzer 0 % (0-5); Neutrophil # 4.29 X10^3/uL (2.7-7.7); Neutrophil % 61.4 % (47-70); Platelet Count 262 K/mm3 (150-450); RBC Distribution Width CV 14.3 % (11.6-14.6); RBC Distribution Width SD 47.4 fl (35.1-43.9); Red Blood Count 2.72 M/mm3 (4.6-6.2)
[2023-04-13] MEDS: Levothyroxine 25 MCG TABLET PO (06:49)
[2023-04-13] MEDS: Acetaminophen 500 MG Tablet 1000 MG PO ×3 (06:50→21:05)
[2023-04-13 07:01] LABS: ALB/GLOB Ratio 0.6 RATIO (0.9-2.4); AST(SGOT) 35 U/L (15-37); Alanine Aminotransfer ALT/SGPT 36 U/L (16-61); Albumin, Serum 2.3 g/dL (3.2-5.0); Alkaline Phosphatase 101 U/L (45-117); Anion Gap 8 (5-15); BUN 18 mg/dL (7-18); BUN/Creat Ratio 24.4 RATIO (10-20); Calcium,Total 9.3 mg/dL (8.5-10.1); Chloride 106 mmol/L (98-107); Creatinine, Serum 0.74 mg/dL (0.70-1.30); EST Glomerular Filtration Rate 108 mL/min (>60); Est Glom Filt Rate - Afr Amer 131 mL/min (>60); Estimated Creatinine Clearance 73.51 ml/min; Globulin 3.6 g/dL (2.2-4.2); Glucose 92 mg/dL (74-106); PSA,Total - Annual Screen 1.73 ng/mL (0.00-4.00); Potassium 4.1 mmol/L (3.5-5.1); Protein, Total 5.9 g/dL (6.4-8.2); Sodium Level 141 mmol/L (136-145)
--- NOTE | 2023-04-13 08:43 | PCM.PROGNOTE ---
Subjective Subjective Day #04/14 of Bactrim for MRSA UTI Afebrile VSS-systolic blood pressure remains high and over the past 24 hours has ranged from 142/67 to 187/91. Pulse is ranged from 71-87. Maintaining appropriate oxygen saturation on RA Oral intake - FOOD good FLUIDS good Having regular bowel movements. Discussed with nursing - no problems that need addressed Reviewed the THERAPY notes Medication list reviewed. Antihypertensives include doxazosin 1 mg nightly, lisinopril 5 mg daily, Cardizem CD 240 mg daily and as needed hydralazine 10 mg. He received 10 mg of hydralazine last night for blood pressure of 187/91 and 1 hour later it was 164/72. All lab drawn this morning was personally reviewed. The white blood cell count is normal at 7. Hemoglobin is 7.9, down from 8.8 on 04/09/2023. Platelets are within normal limits. Sodium is 141 and the potassium is 4.1. BUN is down to 18 from 21 and the creatinine is stable at 0.74. LFTs are normal. PSA is good at 1.73. Objective Data Objective Data Vital Signs: Vital Signs Temp Pulse Resp BP Pulse Ox O2 Del Method 97.7 F L 87 18 168/80 H 97 Room Air 04/13/23 06:00 04/13/23 06:00 04/13/23 06:00 04/13/23 06:00 04/13/23 06:00 04/13/23 06:00 Oxygen Delivery Method Room Air Weight: 182 lb 8.684 oz Body Mass Index (BMI) 26.2 Intake & Output: Intake and Output for Last 24 Hours 04/11/23 04/12/23 04/13/23 23:59 23:59 23:59 Intake Total 2320 / 2320 1620 / 1620 Output Total 5 / 2074 1700 / 1700 700 / 700 Balance 245 / 245 -80 / -80 -700 / -700 Lab / Micro Data 04/13/23 05:45 04/13/23 05:45 Labs: Laboratory Results - last 24 hr 04/13/23 05:45: WBC 7.0, RBC 2.72 L, Hgb 7.9 L, Hct 24.5 L, MCV 90.1, MCH 29.0, MCHC 32.2, RDW Std Deviation 47.4 H, RDW Coeff of Maday 14.3, Plt Count 262, MPV 8.8, Immature Gran % (Auto) 0.700, Neut % (Auto) 61.4, Lymph % (Auto) 19.6, Pitkin % (Auto) 12.5 H, Eos % (Auto) 5.2 H, Baso % (Auto) 0.6, Absolute Neuts (auto) 4.3, Absolute Lymphs (auto) 1.37, Nucleated RBC % 0, Sodium 141, Potassium 4.1, Chloride 106, Carbon Dioxide 27.0, Anion Gap 8, BUN 18, Creatinine 0.74, Estim Creat Clear Calc 73.51, Est GFR (MDRD) Af Amer 131, Est GFR (MDRD) Non-Af 108, BUN/Creatinine Ratio 24.4 H, Glucose 92, Calcium 9.3, Total Bilirubin 0.30, AST 35, ALT 36, Alkaline Phosphatase 101, Total Protein 5.9 L, Albumin 2.3 L, Globulin 3.6, Albumin/Globulin Ratio 0.6 L, PSA Screen 1.73 Micro: Microbiology 04/09/23 04:40 Urine Catheter - Catheter Urine Culture - Final Meth. resistant Staph. aureus Physical Exam Const alert and no apparent distress General Appearance: cooperative HEENT moist oral mucous membranes Resp Resp Narrative: Diminished in the right base with a few coarse crackles. No cough with deep inspiration. Denies shortness of breath. Effort and Inspection: Negative for tachypneic or labored Cardio Cardio Narrative: irreg irreg rhythm with controlled ventricular response. He denies palpitations. Denies orthopnea. GI normal to inspection, nondistended, normoactive bowel sounds, soft to palpation and non-tender GI Narrative: No guarding with palpation Extremity no calf tenderness General Extremity: Negative for edema Assessment & Plan Assessment/Plan (1) Physical debility: (2) Multiple fractures of ribs of right side: QUALIFIERS: Encounter type: subsequent encounter Fracture type: closed (3) Uncontrolled hypertension: (4) Urine retention: (5) Acute on chronic anemia: PLAN: Plan 1. Continue therapy 2. Start hydralazine 25 mg p.o. twice daily for better blood pressure control and continue as needed hydralazine for uncontrolled hypertension. 3. Hemoccult stool today 4. Orthostatic vital signs today 5. Continue Bactrim for MRSA UTI 6. Recheck H&H in a.m. Charges/Coding Visit Charges Inpatient E&M: 29967 Subs Hosp L1
[2023-04-13] MEDS: Aspirin 81 MG TAB.CHEW PO (10:08)
[2023-04-13] MEDS: Smz/Tmp Ds Tablet 1 TABLET PO ×2 (10:08→17:11)
[2023-04-13] MEDS: hydrALAZINE 25 MG Tablet PO ×2 (10:08→21:02)
[2023-04-13] MEDS: APIXABAN 5 MG TABLET PO ×2 (10:09→21:03)
[2023-04-13] MEDS: Lidocaine 5% Patch 1 PATCH TOPICAL (10:09)
[2023-04-13] MEDS: dilTIAZem CD 240 MG Capsule PO (10:09)
[2023-04-13] MEDS: Senna/Docusate Sodium 1 Tablet 2 TABLET PO ×2 (10:09→21:04)
[2023-04-13] MEDS: Lisinopril 5 MG Tablet PO (10:09)
[2023-04-13] MEDS: Magnesium Chloride 64 MG Delay Rel.Tablet 128 MG PO ×2 (10:09→21:03)
[2023-04-13] MEDS: Menthol/Lanolin/Calamine/Znox 113 GM Tube 1 APPLIC TOPICAL ×2 (10:15→21:01)
[2023-04-13] MEDS: Tamsulosin HCl 0.4 MG Capsule 0.400000000000000022 MG PO (17:11)
[2023-04-13] MEDS: Doxazosin 1 MG Tablet PO (21:02)
[2023-04-13] MEDS: Atorvastatin Calcium 40 MG Tablet PO (21:03)
[2023-04-13] MEDS: MELATONIN 3 MG TABLET PO (21:03)
[2023-04-13] MEDS: QUEtiapine 25 MG Tablet 12.5 MG PO (21:05)
[2023-04-14] VITALS (7 sets, daily range): BP systolic 105–160; BP diastolic 45–72; PULSE 76–88; RESP 16–18; TEMP 36.5; O2SAT 94; BMI 25.9
[2023-04-14] MEDS: Levothyroxine 25 MCG TABLET PO (05:24)
[2023-04-14] MEDS: carBAMazepine 200 MG Tablet PO ×3 (05:24→22:04)
[2023-04-14 05:50] LABS: Hematocrit 27.1 % (40-54); Hemoglobin 8.6 g/dL (13.0-16.5)
[2023-04-14] MEDS: Acetaminophen 500 MG Tablet 1000 MG PO ×3 (06:11→22:03)
[2023-04-14] MEDS: Lidocaine 5% Patch 1 PATCH TOPICAL (08:01)
[2023-04-14] MEDS: APIXABAN 5 MG TABLET PO ×2 (08:02→22:05)
[2023-04-14] MEDS: Ergocalciferol 1.25 MG (50, 000 UNIT) Capsule PO (08:02)
[2023-04-14] MEDS: hydrALAZINE 25 MG Tablet PO ×2 (08:02→22:33)
[2023-04-14] MEDS: Smz/Tmp Ds Tablet 1 TABLET PO ×2 (08:02→16:22)
[2023-04-14] MEDS: Lisinopril 5 MG Tablet PO (08:02)
[2023-04-14] MEDS: Magnesium Chloride 64 MG Delay Rel.Tablet 128 MG PO ×2 (08:02→22:04)
[2023-04-14] MEDS: Aspirin 81 MG TAB.CHEW PO (08:02)
[2023-04-14] MEDS: Senna/Docusate Sodium 1 Tablet 2 TABLET PO (08:02)
[2023-04-14] MEDS: dilTIAZem CD 240 MG Capsule PO (08:03)
[2023-04-14] MEDS: Menthol/Lanolin/Calamine/Znox 113 GM Tube 1 APPLIC TOPICAL ×2 (08:10→22:05)
[2023-04-14] MEDS: Tamsulosin HCl 0.4 MG Capsule 0.400000000000000022 MG PO (16:21)
[2023-04-14] MEDS: MELATONIN 3 MG TABLET PO (22:05)
[2023-04-14] MEDS: Atorvastatin Calcium 40 MG Tablet PO (22:05)
[2023-04-14] MEDS: QUEtiapine 25 MG Tablet 12.5 MG PO (22:05)
[2023-04-14] MEDS: Doxazosin 1 MG Tablet PO (22:05)
[2023-04-15] VITALS (8 sets, daily range): BP systolic 98–166; BP diastolic 50–96; PULSE 76–106; RESP 17–18; TEMP 36.9–37.1; O2SAT 97
[2023-04-15] MEDS: Levothyroxine 25 MCG TABLET PO (06:00)
[2023-04-15] MEDS: carBAMazepine 200 MG Tablet PO ×3 (06:01→21:09)
[2023-04-15] MEDS: Acetaminophen 500 MG Tablet 1000 MG PO ×3 (06:01→21:09)
[2023-04-15] MEDS: Smz/Tmp Ds Tablet 1 TABLET PO ×2 (07:53→17:31)
[2023-04-15] MEDS: dilTIAZem CD 240 MG Capsule PO (07:53)
[2023-04-15] MEDS: Senna/Docusate Sodium 1 Tablet 2 TABLET PO ×2 (07:53→21:07)
[2023-04-15] MEDS: Lidocaine 5% Patch 1 PATCH TOPICAL (07:53)
[2023-04-15] MEDS: Aspirin 81 MG TAB.CHEW PO (07:53)
[2023-04-15] MEDS: Lisinopril 5 MG Tablet PO ×2 (07:54→21:40)
[2023-04-15] MEDS: APIXABAN 5 MG TABLET PO ×2 (07:54→21:09)
[2023-04-15] MEDS: Magnesium Chloride 64 MG Delay Rel.Tablet 128 MG PO ×2 (07:54→21:09)
[2023-04-15] MEDS: hydrALAZINE 25 MG Tablet PO ×2 (07:55→21:07)
[2023-04-15] MEDS: Menthol/Lanolin/Calamine/Znox 113 GM Tube 1 APPLIC TOPICAL ×2 (07:58→21:40)
--- NOTE | 2023-04-15 11:52 | PN_ITS ---
Subjective Subjective Afebrile VSS-he had 1 blood pressure of 98/50 yesterday but I think this is a false number. Blood pressures have been elevated the past 24 hours. Repeat orthostatics were negative. Maintaining appropriate oxygen saturation on RA Oral intake - FOOD good FLUIDS good Discussed with nursing - no problems that need addressed Reviewed the THERAPY notes Medication list reviewed. Margaret is c/o tremors in his hands with activity. He has had this in the past but, it seems to be getting worse. Possibly due to increased Carbamazepine level due to drug interactions with Seroquel, Tramadol. Has not taken any breat sandra treatments since admission. Denies rib pain, CP, SOB, cough, N/V, abd pain, diarrhea/constipation, dysuria and calf tenderness. Denies lightheadedness. Objective Data Objective Data Vital Signs: Vital Signs Temp Pulse Resp BP Pulse Ox O2 Del Method 98.5 F 83 17 142/96 H 97 Room Air 04/15/23 06:00 04/15/23 08:10 04/15/23 06:00 04/15/23 08:10 04/15/23 06:00 04/15/23 06:00 Oxygen Delivery Method Room Air Weight: 181 lb 7.047 oz Body Mass Index (BMI) 25.9 Intake & Output: Intake and Output for Last 24 Hours 04/13/23 04/14/23 04/15/23 23:59 23:59 23:59 Intake Total 1650 / 1650 1690 / 1690 1060 / 1060 Output Total 2100 / 2100 1450 / 1450 1100 / 1100 Balance -450 / -450 240 / 240 -40 / -40 Lab / Micro Data 04/14/23 05:30 04/13/23 05:45 Micro: Microbiology 04/13/23 09:50 Stool Stool Occult Blood (LEW) - Final 04/09/23 04:40 Urine Catheter - Catheter Urine Culture - Final Meth. resistant Staph. aureus Assessment & Plan Assessment/Plan (1) Physical debility: (2) Multiple fractures of ribs of right side: QUALIFIERS: Encounter type: subsequent encounter Fracture type: closed (3) Uncontrolled hypertension: (4) Urine retention: (5) Acute on chronic anemia: (6) Action tremor: PLAN: Plan 1. Continue therapy 2. Increase lisinopril to 5 mg p.o. twice daily. Continue Cardizem CD 240 mg once daily, hydralazine 25 mg twice daily and doxazosin 1 mg at at bedtime. 3. Voiding trial today. 4. check a carbamazepine level. Charges/Coding Visit Charges Inpatient E&M: 21961 Subs Hosp L1
[2023-04-15] MEDS: Tamsulosin HCl 0.4 MG Capsule 0.400000000000000022 MG PO (17:31)
[2023-04-15] MEDS: Atorvastatin Calcium 40 MG Tablet PO (21:07)
[2023-04-15] MEDS: Doxazosin 1 MG Tablet PO (21:08)
[2023-04-15] MEDS: MELATONIN 3 MG TABLET PO (21:09)
[2023-04-15] MEDS: QUEtiapine 25 MG Tablet 12.5 MG PO (21:41)
[2023-04-16] VITALS (8 sets, daily range): BP systolic 121–187; BP diastolic 57–89; PULSE 71–113; RESP 15–17; TEMP 36.6–37.2; O2SAT 94–96
[2023-04-16] MEDS: Acetaminophen 500 MG Tablet 1000 MG PO ×3 (05:41→22:06)
[2023-04-16] MEDS: carBAMazepine 200 MG Tablet PO ×3 (05:41→22:08)
[2023-04-16] MEDS: Levothyroxine 25 MCG TABLET PO (05:41)
[2023-04-16] MEDS: hydrALAZINE 10 MG Tablet PO (05:41)
--- NOTE | 2023-04-16 07:50 | NURSING ---
0600 pt bladder scanned for >792cc, pt voided 125cc, and bladder scanned again. the value this time was 639cc, younger placed as per order and tolerated the procedure fair. 600cc was emptied out of the younger bag, the urine was clear yellow. pt voiced anxiety over have the catheter placed again. prn hydralazine give for bp of 166/63 and ap of 101.
[2023-04-16] MEDS: dilTIAZem CD 240 MG Capsule PO (08:44)
[2023-04-16] MEDS: Smz/Tmp Ds Tablet 1 TABLET PO ×2 (08:44→16:48)
[2023-04-16] MEDS: Aspirin 81 MG TAB.CHEW PO (08:44)
[2023-04-16] MEDS: Lisinopril 5 MG Tablet PO ×2 (08:45→22:07)
[2023-04-16] MEDS: Magnesium Chloride 64 MG Delay Rel.Tablet 128 MG PO ×2 (08:45→22:06)
[2023-04-16] MEDS: Senna/Docusate Sodium 1 Tablet 2 TABLET PO (08:45)
[2023-04-16] MEDS: APIXABAN 5 MG TABLET PO ×2 (08:45→22:08)
[2023-04-16] MEDS: hydrALAZINE 25 MG Tablet PO ×2 (08:46→22:07)
[2023-04-16] MEDS: Lidocaine 5% Patch 1 PATCH TOPICAL (08:46)
[2023-04-16] MEDS: Menthol/Lanolin/Calamine/Znox 113 GM Tube 1 APPLIC TOPICAL ×2 (08:48→22:08)
[2023-04-16] MEDS: traMADol 50 MG Tablet PO (08:56)
--- NOTE | 2023-04-16 13:23 | CASEMGMT ---
Social Work SW scheduled call with pt's dtr and . SW explained current LOF and pt has made great progress. IDT agreeable for pt to DC home. SW discussed CGA for the transition home, to be cognizant of pt's dogs and the trip hazard at home, and for pt to remain limited weight for lifting, recommended hip kip and half bed rail at home. Both expressed understanding. Pt has a hospital bed with rails. Pt does not have own FWW. SW to coordinate. IDT recommending skilled HHC PT/OT/ST/SN. Currently, pt's younger is removed. and dtr agreeable to [facility]. SW offered to provide dtr with list of skilled HHC agencies with quality and resource data during Team meeting Wednesday. Dtr denied and requested [facility]. agreeable. SW agreed. and dtr inquired about completing advanced directives. SW to complete if pt agreeable. Dtr to transport at DC 04/20. SW phoned referral to [facility] PT/OT/ST/SN. SW to send referral [place] [facility]. Plan: [place] home with 04/20, [facility] PT/OT/ST/SN, FWW Beckie Muro, [employer]
--- NOTE | 2023-04-16 13:48 | PN_ITS ---
Subjective Subjective Afebrile VSS Maintaining appropriate oxygen saturation on RA Oral intake - FOOD good FLUIDS good Discussed with nursing - no problems that need addressed Reviewed the THERAPY notes Medication list reviewed. The Justin was removed yesterday. He had 2 bladder scans that were greater than 300 cc with no urge to void and the Justin has been reinserted. Lab for today is pending. TSH has been high the past few times it was checked. T4 has been low since 01/14/21. TSH and T4 are pending. There is a drug int eraction between carbamazepine and levothyroxine. May need to increase the levothyroxine dose. Carbamazepine level is also pending. Urine in the Justin bag is pale yellow and clear. Denies cephalgia, lightheadedness, vertigo, chest pain, cough, shortness of breath, nausea/vomiting/abdominal pain, diarrhea/constipation, dysuria and calf pain. Objective Data Objective Data Vital Signs: Vital Signs Temp Pulse Resp BP Pulse Ox O2 Del Method 98.7 F 95 15 121/57 H 96 Room Air 04/16/23 08:41 04/16/23 08:46 04/16/23 08:41 04/16/23 08:46 04/16/23 08:41 04/16/23 10:00 Oxygen Delivery Method Room Air Weight: 181 lb 7.047 oz Body Mass Index (BMI) 25.9 Intake & Output: Intake and Output for Last 24 Hours 04/14/23 04/15/23 04/16/23 23:59 23:59 23:59 Intake Total 1690 / 1690 1880 / 1880 720 / 720 Output Total 1450 / 1450 1800 / 1800 1075 / 1075 Balance 240 / 240 80 / 80 -355 / -355 Lab / Micro Data 04/14/23 05:30 04/13/23 05:45 Micro: Microbiology 04/13/23 09:50 Stool Stool Occult Blood (LEW) - Final 04/09/23 04:40 Urine Catheter - Catheter Urine Culture - Final Meth. resistant Staph. aureus Physical Exam Const alert and no apparent distress General Appearance: cooperative HEENT moist oral mucous membranes Resp Resp Narrative: Diminished in the right base with a few coarse crackles. No cough with deep inspiration. Denies shortness of breath. Cardio Cardio Narrative: irreg irreg rhythm with controlled ventricular response. He denies pa lpitations. Denies orthopnea. GI normal to inspection, nondistended, normoactive bowel sounds, soft to palpation and non-tender GI Narrative: No guarding with palpation Extremity no calf tenderness General Extremity: Negative for edema Assessment & Plan Assessment/Plan (1) Physical debility: (2) Multiple fractures of ribs of right side: QUALIFIERS: Encounter type: subsequent encounter Fracture type: closed (3) Uncontrolled hypertension: (4) Urine retention: (5) Acute on chronic anemia: (6) Action tremor: PLAN: Plan 1. Continue therapy 2. Check TSH, T4, T3, carbamazepine level. 3. DC the Justin and bladder scan if he goes more than 6 hours without voiding. Straight cath if residual or bladder scan is > 300. Do this for the next 48 hours and if he continues to retain will reinsert the Justin and have him follow up with urology as OP. 4. Dc Seroquel, albuterol/ipratropium and doxazosin. 5. CBC and CMP on Wednesday 6. Bactrim will conclude after his second dose tomorrow. 7. I suspect we are going to need to increase the levothyroxine dose because of the drug interaction between carbamazepine and levothyroxine. Charges/Coding Visit Charges Inpatient E&M: 65863 [facility] [[email or web address] Hosp L1
[2023-04-16 15:44] LABS: Carbamazepine (Tegretol) 12.3 ug/mL (4.0-12.0)
[2023-04-16 15:58] LABS: T4 Free Direct 0.81 ng/dL (0.76-1.46); Thyroid Stim Hormone (TSH) 2.87 uIU/mL (0.358-3.74)
[2023-04-16] MEDS: Tamsulosin HCl 0.4 MG Capsule 0.400000000000000022 MG PO (16:48)
[2023-04-16] MEDS: MELATONIN 3 MG TABLET PO (22:07)
[2023-04-16] MEDS: Atorvastatin Calcium 40 MG Tablet PO (22:07)
[2023-04-17] VITALS (8 sets, daily range): BP systolic 128–160; BP diastolic 55–100; PULSE 80–102; RESP 16–18; TEMP 36.6–36.9; O2SAT 90–98
[2023-04-17] MEDS: carBAMazepine 200 MG Tablet PO ×3 (05:46→20:16)
[2023-04-17] MEDS: Acetaminophen 500 MG Tablet 1000 MG PO ×3 (05:46→21:37)
[2023-04-17] MEDS: Levothyroxine 25 MCG TABLET PO (05:46)
[2023-04-17] MEDS: hydrALAZINE 10 MG Tablet PO (06:06)
--- NOTE | 2023-04-17 06:22 | NURSING ---
pt was bladder scanned this am for 1053cc, pt was able to void 300cc. pt bladder scanned again and value was 776 cc, pt was then straight cathed for 800cc.
[2023-04-17] MEDS: Lidocaine 5% Patch 1 PATCH TOPICAL (08:46)
[2023-04-17] MEDS: dilTIAZem CD 240 MG Capsule PO (08:48)
[2023-04-17] MEDS: Lisinopril 5 MG Tablet PO ×2 (08:48→21:37)
[2023-04-17] MEDS: Smz/Tmp Ds Tablet 1 TABLET PO ×2 (08:48→16:54)
[2023-04-17] MEDS: hydrALAZINE 25 MG Tablet PO ×2 (08:48→21:37)
[2023-04-17] MEDS: Senna/Docusate Sodium 1 Tablet 2 TABLET PO ×2 (08:49→21:37)
[2023-04-17] MEDS: Magnesium Chloride 64 MG Delay Rel.Tablet 128 MG PO ×2 (08:49→21:36)
[2023-04-17] MEDS: Menthol/Lanolin/Calamine/Znox 113 GM Tube 1 APPLIC TOPICAL ×2 (08:49→21:41)
[2023-04-17] MEDS: Aspirin 81 MG TAB.CHEW PO (08:49)
[2023-04-17] MEDS: APIXABAN 5 MG TABLET PO ×2 (08:51→21:36)
[2023-04-17] MEDS: Tamsulosin HCl 0.4 MG Capsule 0.400000000000000022 MG PO (16:54)
[2023-04-17] MEDS: Atorvastatin Calcium 40 MG Tablet PO (21:36)
[2023-04-17] MEDS: MELATONIN 3 MG TABLET PO (21:37)
[2023-04-18] VITALS (7 sets, daily range): BP systolic 116–145; BP diastolic 44–76; PULSE 66–97; RESP 16–18; TEMP 36.6–37.2; O2SAT 95–98
[2023-04-18] MEDS: Acetaminophen 500 MG Tablet 1000 MG PO ×3 (05:35→22:03)
[2023-04-18] MEDS: carBAMazepine 200 MG Tablet PO ×3 (05:35→20:28)
[2023-04-18] MEDS: Levothyroxine 25 MCG TABLET PO (05:35)
[2023-04-18] MEDS: dilTIAZem CD 240 MG Capsule PO (09:23)
[2023-04-18] MEDS: Senna/Docusate Sodium 1 Tablet 2 TABLET PO ×2 (09:24→22:03)
[2023-04-18] MEDS: Magnesium Chloride 64 MG Delay Rel.Tablet 128 MG PO ×2 (09:24→22:04)
[2023-04-18] MEDS: hydrALAZINE 25 MG Tablet PO ×2 (09:25→22:09)
[2023-04-18] MEDS: Aspirin 81 MG TAB.CHEW PO (09:26)
[2023-04-18] MEDS: Lisinopril 5 MG Tablet PO ×2 (09:26→22:10)
[2023-04-18] MEDS: Lidocaine 5% Patch 1 PATCH TOPICAL (09:27)
[2023-04-18] MEDS: APIXABAN 5 MG TABLET PO ×2 (10:39→22:05)
[2023-04-18] MEDS: Menthol/Lanolin/Calamine/Znox 113 GM Tube 1 APPLIC TOPICAL ×2 (10:40→22:07)
[2023-04-18] MEDS: Tamsulosin HCl 0.4 MG Capsule 0.400000000000000022 MG PO (17:24)
[2023-04-18] MEDS: MELATONIN 3 MG TABLET PO (22:04)
[2023-04-18] MEDS: Atorvastatin Calcium 40 MG Tablet PO (22:05)
[2023-04-19] VITALS (10 sets, daily range): BP systolic 108–192; BP diastolic 42–84; PULSE 75–100; RESP 16–18; TEMP 36.4–37.1; O2SAT 95–97
[2023-04-19] MEDS: carBAMazepine 200 MG Tablet PO ×3 (05:34→22:17)
[2023-04-19 05:47] LABS: Hematocrit 25.8 % (40-54); Hemoglobin 8.2 g/dL (13.0-16.5); Mean Corp Hgb Conc 31.8 g/dL (32-36); Mean Corpuscular Hgb 28.3 pg (27.0-32.0); Mean Platelet Vol. 8.4 fl (6.2-12.0); Platelet Count 403 K/mm3 (150-450); RBC Distribution Width CV 14.9 % (11.6-14.6); RBC Distribution Width SD 48.7 fl (35.1-43.9); White Blood Count 6.7 K/mm3 (4.4-11.0)
[2023-04-19 06:22] LABS: Carbamazepine (Tegretol) 11.2 ug/mL (4.0-12.0)
[2023-04-19 06:24] LABS: ALB/GLOB Ratio 0.5 RATIO (0.9-2.4); AST(SGOT) 39 U/L (15-37); Alanine Aminotransfer ALT/SGPT 46 U/L (16-61); Albumin, Serum 2.3 g/dL (3.2-5.0); Alkaline Phosphatase 128 U/L (45-117); Anion Gap 5 (5-15); BUN 21 mg/dL (7-18); BUN/Creat Ratio 30.5 RATIO (10-20); Calcium,Total 9.6 mg/dL (8.5-10.1); Chloride 106 mmol/L (98-107); Creatinine, Serum 0.69 mg/dL (0.70-1.30); EST Glomerular Filtration Rate 117 mL/min (>60); Est Glom Filt Rate - Afr Amer 141 mL/min (>60); Estimated Creatinine Clearance 73.51 ml/min; Globulin 4.3 g/dL (2.2-4.2); Glucose 95 mg/dL (74-106); Potassium 4.2 mmol/L (3.5-5.1); Protein, Total 6.6 g/dL (6.4-8.2); Sodium Level 137 mmol/L (136-145)
[2023-04-19] MEDS: Acetaminophen 500 MG Tablet 1000 MG PO ×3 (06:27→22:18)
[2023-04-19] MEDS: hydrALAZINE 10 MG Tablet PO ×2 (06:28→23:40)
[2023-04-19] MEDS: Levothyroxine 25 MCG TABLET PO (06:29)
[2023-04-19] MEDS: Lisinopril 5 MG Tablet PO ×2 (07:55→22:19)
[2023-04-19] MEDS: Magnesium Chloride 64 MG Delay Rel.Tablet 128 MG PO ×2 (07:55→22:19)
[2023-04-19] MEDS: Senna/Docusate Sodium 1 Tablet 2 TABLET PO ×2 (07:55→22:19)
[2023-04-19] MEDS: Lidocaine 5% Patch 1 PATCH TOPICAL (07:55)
[2023-04-19] MEDS: dilTIAZem CD 240 MG Capsule PO (07:56)
[2023-04-19] MEDS: Aspirin 81 MG TAB.CHEW PO (07:56)
[2023-04-19] MEDS: APIXABAN 5 MG TABLET PO ×2 (07:56→22:19)
[2023-04-19] MEDS: Menthol/Lanolin/Calamine/Znox 113 GM Tube 1 APPLIC TOPICAL ×2 (08:01→22:23)
--- NOTE | 2023-04-19 10:49 | PCM.PROGNOTE ---
Subjective Subjective Margaret was seen on team rounds today. Afebrile VSS-blood pressures are erratic. Blood pressure earlier this morning was 178/66 at 6 AM but currently is 108/42. Antihypertensives currently include diltiazem CD 240 mg daily lisinopril 5 mg twice daily and hydralazine 25 mg twice daily Maintaining appropriate oxygen saturation on RA Oral intake - FOOD good FLUIDS good Discussed with nursing - Reviewed the THERAPY notes Medication list reviewed. Remains on FLomax. Did not tolerate addition of a second agent due to orthostatic hypotension. Denies lightheadedness. Denies chest pain, shortness of breath, cough, palpitations, nausea/vomiting/abdominal pain, dysuria, suprapubic pain, calf tenderness. All lab from today was personally reviewed. White blood cell count is normal. Hemoglobin is 8.2. Stable. Platelets are within normal limits. Sodium and potassium are normal and the BUN is 21 with a creatinine of 0.69 which is stable. I spoke with Margaret's dtr today and she tells me that Nash was increased to 50 mcg of Levothyroxine in February and this is likely why the TSH is now normal. He came to us on 25 mcg. Objective Data Objective Data Vital Signs: Vital Signs Temp Pulse Resp BP Pulse Ox O2 Del Method 97.5 F L 100 16 108/42 L 97 Room Air 04/19/23 05:42 04/19/23 06:28 04/19/23 05:42 04/19/23 08:04 04/19/23 05:42 04/19/23 05:42 Oxygen Delivery Method Room Air Weight: 181 lb 7.047 oz Body Mass Index (BMI) 25.9 Intake & Output: Intake and Output for Last 24 Hours 04/17/23 04/18/23 04/19/23 22:59 23:59 23:59 Intake Total 920 / 920 Output Total 1625 / 1625 Balance -705 / -705 Lab / Micro Data 04/19/23 05:07 04/19/23 05:07 Labs: Laboratory Results - last 24 hr 04/19/23 05:07: WBC 6.7, RBC 2.90 L, Hgb 8.2 L, Hct 25.8 L, MCV 89.0, MCH 28.3, MCHC 31.8 L, RDW Std Deviation 48.7 H, RDW Coeff of Maday 14.9 H, Plt Count 403, MPV 8.4, Sodium 137, Potassium 4.2, Chloride 106, Carbon Dioxide 26.0, Anion Gap 5, BUN 21 H, Creatinine 0.69 L, Estim Creat Clear Calc 73.51, Est GFR (MDRD) Af Amer 141, Est GFR (MDRD) Non-Af 117, BUN/Creatinine Ratio 30.5 H, Glucose 95, Calcium 9.6, Total Bilirubin 0.30, AST 39 H, ALT 46, Alkaline Phosphatase 128 H, Total Protein 6.6, Albumin 2.3 L, Globulin 4.3 H, Albumin/Globulin Ratio 0.5 L, Carbamazepine 11.2 Micro: Microbiology 04/13/23 09:50 Stool Stool Occult Blood (LEW) - Final 04/09/23 04:40 Urine Catheter - Catheter Urine Culture - Final Meth. resistant Staph. aureus Physical Exam Const alert and no apparent distress General Appearance: cooperative HEENT moist oral mucous membranes Resp clear to auscultation bilaterally Resp Narrative: No conversational dyspnea Effort and Inspection: Negative for tachypneic Cardio Cardio Narrative: irreg irreg rhythm with controlled ventricular response. He denies palpitations. Denies orthopnea. GI normal to inspection, nondistended, normoactive bowel sounds, soft to palpation and non-tender GI Narrative: No guarding with palpation Extremity no calf tenderness General Extremity: Negative for edema Assessment & Plan Assessment/Plan (1) Physical debility: (2) Multiple fractures of ribs of right side: QUALIFIERS: Encounter type: subsequent encounter Fracture type: closed PLAN: No CP and no SOB today (3) Uncontrolled hypertension: (4) Urine retention: (5) Acute on chronic anemia: (6) Action tremor: PLAN: Plan 1. Continue therapy 2. Increase levothyroxine to 50 mcg daily 3. Check a serum iron, percent iron saturation, ferritin and retic count today. Stool is heme negative. ` 4. Increase hydralazine to 50 mg p.o. twice daily and continue to monitor blood pressures. 5. Margaret is agreeable to trying to manage meds with a pill box. His dtr will assist him in setting up the pill boxes. He is also agreeable to having [facility] but, this is a hard sell for him. 6. will reinsert Justin. Will need a SN at [place] to help manage the Justin at home. 7. Follow up with urology as OP. I suspect he has neurogenic bladder. Charges/Coding Visit Charges Inpatient E&M: 64477 Subs Hosp L2
[2023-04-19 11:40] LABS: Ferritin 325 ng/mL (26-388); Iron 18 ug/dL (65-175); Iron Binding Capacity,Total 194 ug/dL (250-450); PERCENT IRON SATURATION 9.3 % (15.0-55.0)
[2023-04-19 12:13] LABS: Platelet Count 413 K/mm3 (150-450); Reticulocyte Count 1.45 % (0.5-1.5)
[2023-04-19] MEDS: hydrALAZINE 25 MG Tablet PO ×2 (12:35→22:20)
--- NOTE | 2023-04-19 13:51 | CASEMGMT ---
Social Work IDT met with patient and dtr for Team meeting. Discussed patient's progress in PT/OT/ST/SN. Confirmed DC plans home with 04/20, [facility] PT/OT/ST/SN, FWW. FWW will be delivered to pt's room. Dtr to transport at DC. SW discussed advanced directives with pt. Pt did state he would like his primary and dtr secondary, however, does not want to complete documents until he discusses with his . SW educated to importance of completing documents and provided social service rack card and blank copies of paperwork to review and schedule to complete after DC, if pt wishes. Pt/dtr expressed understanding. Plan: DC home with 04/20, [facility] PT/OT/ST/SN, FWW MISTY Davies
[2023-04-19] MEDS: Tamsulosin HCl 0.4 MG Capsule 0.400000000000000022 MG PO (17:33)
[2023-04-19] MEDS: Atorvastatin Calcium 40 MG Tablet PO (22:18)
[2023-04-19] MEDS: MELATONIN 3 MG TABLET PO (22:19)
[2023-04-20] MEDS: Acetaminophen 500 MG Tablet 1000 MG PO ×3 (04:59→20:39)
[2023-04-20] MEDS: carBAMazepine 200 MG Tablet PO ×3 (05:00→20:40)
[2023-04-20] MEDS: Levothyroxine 50 MCG Tablet PO (05:01)
[2023-04-20 05:54] VITALS: BP 155/81; PULSE 94
[2023-04-20] MEDS: Lidocaine 5% Patch 1 PATCH TOPICAL (07:53)
[2023-04-20] MEDS: Magnesium Chloride 64 MG Delay Rel.Tablet 128 MG PO ×2 (07:53→20:39)
[2023-04-20] MEDS: Lisinopril 5 MG Tablet PO ×2 (07:53→20:39)
[2023-04-20] MEDS: Senna/Docusate Sodium 1 Tablet 2 TABLET PO (07:53)
[2023-04-20 07:54] VITALS: BP 155/81; PULSE 94
[2023-04-20] MEDS: hydrALAZINE 25 MG Tablet PO (07:54)
[2023-04-20] MEDS: Aspirin 81 MG TAB.CHEW PO (07:54)
[2023-04-20] MEDS: Menthol/Lanolin/Calamine/Znox 113 GM Tube 1 APPLIC TOPICAL ×2 (07:54→20:45)
[2023-04-20] MEDS: dilTIAZem CD 240 MG Capsule PO (07:54)
[2023-04-20] MEDS: APIXABAN 5 MG TABLET PO ×2 (07:54→20:40)
[2023-04-20 11:50] VITALS: BP 122/59; PULSE 72; RESP 16; TEMP 36.8; O2SAT 99
[2023-04-20] MEDS: Tamsulosin HCl 0.4 MG Capsule 0.400000000000000022 MG PO (16:28)
[2023-04-20 17:42] VITALS: BP 154/80; PULSE 75
[2023-04-20 20:40] VITALS: PULSE 74
[2023-04-20] MEDS: hydrALAZINE 50 MG Tablet PO (20:40)
[2023-04-20] MEDS: MELATONIN 3 MG TABLET PO (20:40)
[2023-04-20] MEDS: Atorvastatin Calcium 40 MG Tablet PO (20:40)
[2023-04-20] MEDS: Sodium Ferric Gluconat 125 MG in 0.9% Normal Saline 100 ML 110 MG IV (20:40)
[2023-04-20 21:00] VITALS: BP 155/54; PULSE 74; RESP 16; TEMP 36.9; O2SAT 98
[2023-04-21 06:00] VITALS: BP 155/88; PULSE 91; BMI 25.2
[2023-04-21] MEDS: Acetaminophen 500 MG Tablet 1000 MG PO (06:13)
[2023-04-21] MEDS: Levothyroxine 50 MCG Tablet PO (06:13)
[2023-04-21] MEDS: carBAMazepine 200 MG Tablet PO ×2 (06:14→11:52)
[2023-04-21] MEDS: Lisinopril 5 MG Tablet PO (08:00)
[2023-04-21] MEDS: Senna/Docusate Sodium 1 Tablet 2 TABLET PO (08:00)
[2023-04-21] MEDS: dilTIAZem CD 240 MG Capsule PO (08:00)
[2023-04-21] MEDS: Magnesium Chloride 64 MG Delay Rel.Tablet 128 MG PO (08:00)
[2023-04-21] MEDS: Aspirin 81 MG TAB.CHEW PO (08:00)
[2023-04-21 08:01] VITALS: BP 155/88; PULSE 91
[2023-04-21] MEDS: APIXABAN 5 MG TABLET PO (08:01)
[2023-04-21] MEDS: Menthol/Lanolin/Calamine/Znox 113 GM Tube 1 APPLIC TOPICAL (08:01)
[2023-04-21] MEDS: hydrALAZINE 50 MG Tablet PO (08:01)
[2023-04-21] MEDS: Ergocalciferol 1.25 MG (50, 000 UNIT) Capsule PO (08:01)
[2023-04-21 12:00] VITALS: BP 107/51; PULSE 88
[2023-04-21] MEDS: Sodium Ferric Gluconat 250 MG in 0.9% Normal Saline 250 ML 135 MG IV (12:20)
--- NOTE | 2023-04-21 12:28 | PCM.DC.SUM ---
Providers Date of Admission: 04/08/23 Date of Discharge: 04/21/23 Primary Care Physician: Dr. Jolly Brady MD Reason For Visit: MULTIPLE TRAUMA Diagnosis Discharge Diagnosis (1) Physical debility: Status: Acute Code(s): R53.81 - Other malaise Plan: Due to a fall with fractured ribs and R hemothorax. (2) Multiple fractures of ribs of right side: Status: Acute Code(s): S22.41XA - Multiple fractures of ribs, right side, initial encounter for closed fracture Qualifiers: Encounter type: subsequent encounter Fracture type: closed Plan: Ribs 7 through 9 on the right side. (3) Hemothorax on right: Status: Resolved Code(s): J94.2 - Hemothorax (4) History of chest tube placement: Status: Acute Code(s): Z98.890 - Other specified postprocedural states (5) Acute on chronic anemia: Status: Chronic Code(s): D64.9 - Anemia, unspecified (6) Iron deficiency: Status: Acute Code(s): E61.1 - Iron deficiency (7) Uncontrolled hypertension: Status: Acute Code(s): I10 - Essential (primary) hypertension Plan: Lisinopril was increased to 5 mg BID. Hydralazine 50 mg added to drug regimen. BP still mildly elevated at NH from rehab. He was instructed to obtain a BP cuff and check his BP twice a day. He will keep a record of the results and take them to Dr. Brady at his next office visit. I suspect the BP's may improve once he is home. While he was at [facility] he had bradycardia into the 30's and 40's and Metoprolol was discontinued BP has been normal while he has been on rehab with no bradycardia. May be able to go up on the [facility] CD IF the BP remains elevated at home. He has been very emotional while on rehab and I suspect this contributes to the increased BP. (8) Urine retention: Status: Chronic Code(s): R33.9 - Retention of urine, unspecified Plan: Still retaining with Flomax alone and did not tolerate the addition of a second agent due to orthostatic hypotension. Being discharged with a Justin catheter. Has an appt to follow up with Dr. Vasquez. I suspect he has neurogenic bladder. He had 1200 cc of urine in the bladder at presentation to rehab and had no urge to go. (9) Action tremor: Status: Chronic Code(s): G25.2 - Other specified forms of tremor (10) Hypertension: Status: Chronic Code(s): I10 - Essential (primary) hypertension Qualifiers: Hypertension type: primary hypertension Qualified Code(s): I10 - Essential (primary) hypertension (11) History of hypothyroidism: Status: Acute Code(s): Z86.39 - Personal history of other endocrine, nutritional and metabolic disease Plan: TSH has been elevated in the past and the T4 low. Levothyroxine was increased to [address] Brady in February 2023 and his TSH is now normal at 2.87 with a free T4 of 0.81 which is within normal limits. Plan 1. NH home with [facility] for Pt/OT/ST/SN. 2. DME at NH includes a FWW. 3. He has poor safety awareness and was advised that he should not walk out to the barn without an AD to care for the horses. 4. Follow up appts have been scheduled for him, including an appt with neurology to be evaluated for cognitive dysfunction/memory loss. He will be seeing Dr. César Javier. 5. He is being discharged with a Justin catheter. Medications at Discharge Home Medications aspirin 81 mg chewable tablet 1 tab PO DAILY heart health 04/08/23 ipratropium 0.5 mg-albuterol 3 mg (2.5 mg base)/3 mL nebulization soln 3 ml inhalation Q6H PRN wheezing/SOB 04/08/23 acetaminophen 500 mg tablet 1,000 mg (2 x 500 mg) PO Q8H PRN PRN fever or pain #50 tabs 04/21/23 apixaban 5 mg tablet 5 mg PO BID #60 tabs 04/21/23 atorvastatin 40 mg tablet (Lipitor) 40 mg PO QHS cholesterol #30 tabs 04/21/23 carbamazepine 200 mg tablet (Tegretol) 200 mg PO TID seziures #90 tabs 04/21/23 diltiazem HCl 240 mg capsule,extended release 24 hr 240 mg PO DAILY blood pressure #30 caps 04/21/23 ergocalciferol (vitamin D2) 1,250 mcg (50,000 unit) capsule 1,250 mcg PO QWEEK supplement #4 caps 04/21/23 ferrous gluconate 324 mg (37.5 mg iron) tablet 324 mg PO DAILY #90 tabs 04/21/23 hydralazine 50 mg tablet 50 mg PO BID #60 tabs 04/21/23 levothyroxine 50 mcg tablet 50 mcg PO DAILY@0600 #30 tabs 04/21/23 lisinopril 5 mg tablet 5 mg PO BID #60 tabs 04/21/23 magnesium oxide 400 mg PO BID supplement #60 tabs 04/21/23 melatonin 3 mg tablet 3 mg PO QHS #30 tabs 04/21/23 sennosides 8.6 mg-docusate sodium 50 mg tablet (Stool Softener-Stimulant Laxative) 2 tab PO BID #120 tabs 04/21/23 tamsulosin 0.4 mg capsule 0.4 mg PO DAILY@1730 #30 caps 04/21/23 Hospital Course Operations None Procedures - (He had a R side chest tube at [facility] but, it was removed prior to presentation to rehab. the site is healing and there is no DC, erythema or swelling around the site of the previous CT. ) Summary of Care Provided Minutes Spent on Discharge: 42 Hospital Course: MARGARET CREWS, is a 83 YO M with a PMH of chronic AF, chronic anticoagulation with Eliquis, HLD, HTN, CAD, hx of NSTEMI, Hx of CABG, trigeminal neuralgia, history of meningioma and hypothyroidism who presented to the ED at [facility] on 04/01/2023 c/o R rib pain after a fall. CT chest showed acute minimally displaced fractures of the lateral right-sided ninth, eighth and seventh ribs. There was soft tissue emphysema adjacent to the right sided ribs within the chest wall. Bones appeared osteopenic. CT of the abdomen/pelvis showed a right-sided hemothorax with right side pulmonary hemorrhage and contusions secondary to multiple right-sided rib fractures. CT A/P showed no evidence of acute intra-abdominal/pelvic disease. CT head showed no acute processes. There was an old right occipital lobe infarct and also old left occipital and cerebellar infarcts present. He was transferred to [facility] for further trauma evaluation. A chest tube was placed on the R. The CT was placed to water seal on 04/05/23 and removed on 04/07/2023. He required no surgical intervention for rib fractures. While at [facility] he had delirium and had to have a sitter. He was delirious the night prior to transfer. He was restless at night at admission to rehab and was on low dose Seroquel for a short time. It was discontinued several days prior to DC from rehab and he has been calm and sleeping well. Family related that his memory/cognition has been declining for the year prior to the fall. He was transferred to acute inpt rehab at [facility] on 04/08/23 for 3 hours of therapy daily to restore function/independence at or near his level prior to the trauma. Blood pressure upon arrival at rehab was 194/95. Adjustments have been made to his antihypertensive regimen. Blood Pressure is still mildly elevated at discharge however, he has had some anxiety about getting out of rehab so he can go home and take care of his which I suspect is increasing the BP. He has been very emotional and tearful at times. He has a BP cuff at home and will check it a few times a day and record the results to bring to Dr. Brady at his next office visit. Hemoglobin has been low since April 2022 and it dropped further with the hemothorax. Hemoglobin at presentation to rehab was 8.8 and at discharge it was 8.2 which I suspect is due to better hydration. Iron studies were checked while he was on rehab and the serum iron was low at 18 and the iron saturation was only 9.3% which is very depleted. He was given 2 doses of intravenous iron sucrose while on rehab and will be going home on ferrous gluconate 324 mg daily with a meal. Hemoccult stool was negative while on rehab. Levothyroxine dose was recently increased to [address] Brady in February 2023. Currently his TSH is normal at 2.87 and his free T4 is also normal at 0.81. He has not had any bradycardia since arriving on rehab. At presentation to rehab he had 1200 cc of urine in his bladder with no urge to urinate. Postvoid residuals x 3 were markedly elevated. A Justin catheter was inserted and he had just recently been started on Flomax while at [facility]. He has had a prostatectomy in the past and he has chronic back pain so I am suspecting he may have neurogenic bladder. Voiding trial after a week on Flomax still failed. He was started on a second agent for BPH but became very orthostatic and it was discontinued. We did another voiding trial prior to discharge and even did straight cath for 3 days before reinserting the Justin catheter. An appointment was made for him to follow-up with Dr. Vasquez for urine retention. Margaret required nothing stronger than Tylenol for control of right chest pain while on rehab. At the time of discharge he is sleeping well and has good nutritional intake. Fluid intake is always a challenge and we are always encouraging him to increase his fluid intake. He denied lightheadedness at discharge. His lungs are clear to auscultation and the site of the chest tube is healing well and has no discharge, no erythema and no swelling around the site of the chest tube. At the time of discharge from rehab he is supervision/set up for grooming and independent for eating. He is contact-guard assist for bathing and tub/shower transfer. He is independent with upper body dressing but contact-guard assist for lower body dressing. He has ambulated up to 510 feet on various surfaces with a front wheeled walker at contact-guard assist. He has ambulated 150 feet with a front wheel walker at standby assist with no loss of balance. He is able to ascend/descend 8 steps with 2 handrails at light contact-guard assist. He was instructed not to try and ambulate out to the barn to care for the horses. He now realizes that this puts him at risk for additional falls/injuries. He had been ambulating to the barn, which is quite a distance from the house, without a device to feed and care for his horses. He was initially resistant to having [facility] but, at the time of DC he is agreeable. Margaret had significant cognitive impairment at presentation to rehab with decreased attention, memory, word finding and executive function. He was seen daily by speech therapy and has improved somewhat but speech therapy was recommended at discharge. His baseline Becat at admission was 30/50 and this improved to 35/50 following 1-1/2 weeks of skilled speech therapy intervention. We strongly recommended to family that they oversee his medications at discharge. Prior to discharge his daughter brought in a pillbox and she and Margaret were instructed in how to properly use the pillbox. Margaret was discharged on 04/21/2023 to home. [facility] home health care will be following up with him for PT/OT/ST. He will also have care home for management of the Justin catheter. Appointment scheduled for him are listed in this document. Physical Exam Const alert and oriented x3 Constitutional Narrative: Oriented to person, place, month and year. General Appearance: cooperative HEENT head/scalp atraumatic Mouth: dry mucous membranes Eyes PERRL and EOMs intact bilaterally Eyes Narrative: No scleral icterus, no discharge from the eyes and no conjunctival injection. Neck supple Resp normal respiratory effort and clear to auscultation bilaterally Resp Narrative: No conversational dyspnea. Effort and Inspection: Negative for tachypneic Cardio Cardio Narrative: Irregular irregular with controlled ventricular response. No murmurs and no gallop. GI normal to inspection, nondistended, normoactive bowel sounds, soft to palpation and non-tender GI Narrative: No guarding with palpation. Extremity no calf tenderness Extremity Narrative: He has a trace of edema in the left ankle which is chronic since he had CABG with vein harvesting in the left lower extremity. General Extremity: Negative for clubbing Skin General Skin Exam: no breakdown Rashes: no rashes Wound Narrative: The site of the previous chest tube in the right chest is healing. There is a small scab over the puncture site. He has no discharge and no erythema surrounding the previous wound. There is no swelling and he is not tender to palpation in the area around the previous site of the chest tube. Neuro Neuro Narrative: He has a slight right facial droop. Speech is completely intelligible. No aphasia. No focal motor or sensory deficits. Psych Psych Narrative: He is emotional at times and gets tearful. He is very thankful for the help he has received while on rehab and he has been exceptionally cooperative and motivated to get better. He is eating well and sleeping well at night on no sedating agents. He is anxious to get home and be with his . Weight / BMI Weight Weight: 175 lb 15.991 oz Body Mass Index (BMI) 25.2 ABG / Lab / Microbiology Data 04/19/23 05:07 04/19/23 05:07 Microbiology: Microbiology 04/13/23 09:50 Stool Stool Occult Blood (LEW) - Final 04/09/23 04:40 Urine Catheter - Catheter Urine Culture - Final Meth. resistant Staph. aureus Meaningful Use Info Meaningful Use Diagnoses (Choose all that apply): None applicable Discharge Plan Admission Admit Date/Time: 04/08/23 16:40 Primary Reason for Your Visit: Debility due to fall with fractured ribs and R hemothorax Attending Provider: Brandee Monterroso Primary Care Provider: Jolly Brady Instructions Patient Instructions: Neurogenic Bladder Ch, Alzheimer Disease, ED Urinary Retention, Male Additional Instructions / Restrictions: 1. You have done a great job in therapy. you worked very hard and I think you are going to be good AND safe at home. Remember you must let your family help you. It is vital that you take your medications how they are prescribed. In my opinion the pill boxes are the way to go. this way you will have all your medications in a box for the entire week and all you have to do is take them at the appropriate times. I think setting your alarm to take your medications (you have already been doing this) is an excellent idea and you should continue this. Your medications have changed some since your fall and time in rehab. 2. You are having a problem with your memory. You have gotten better since you have been having speech therapy but, there are still some issues. Your family has been noticing some difficulties with memory over the past year. There are many reasons why people have memory issues. Depression is a big one as we get older and also many of the medications we tolerated when younger can cause memory difficulties as we get older. AND there is also a concern for Alzheimer's disease. IF you have Alzheimer's know that there is now some effective treatment to prevent further memory loss and disability. I think you should see a neurologist to be evaluated for memory loss. We have scheduled an appt for you to see Dr. César Javier to be evaluated. 3. You chronically retain urine. This means that your bladder is not emptying completely when you urinate. This leads to urinary tract infections, kidney failure and urinary incontinence. We have tried to resolve this problem with medications but, you are stilling retaining, even with the medication. I suspect you may have what is called a neurogenic bladder. This means that the nerves to the bladder are not working appropriately. This may be due to the prostate surgery but, it could also be due to chronic back problems and compression/dysfunction of the nerves leading to the bladder. We are going to send you home with a catheter. You will have a nurse come to your house and check on you to make sure the catheter is working well. You will need to see a urologist. There is a urologist at the hospital and his name is Dr. Vasquez. 4. You are anemic. This means that the red blood cell count is low. The bone marrow needs iron to make new red blood cells and your iron in the blood is very low. We gave you iron in an IV yesterday and we are going to give another code prior to going home today. you will be taking an iron supplement orally when you go home. Iron can make you very constipated so I am sending you home with a prescription for the same stool softener you have been taking while on rehab. It is Senna S and you will take 2 tablets twice a day. you will need to take the iron for at least 3 months. Your family doctor will need to do periodic lab test to make sure the iron is building back up and the anemia is improving. Iron can make your stool look black. 5. Your BP is a little high but, with some changes in your medication it is coming down. It would be a good idea to have a BP cuff at home. I suggest you check your BP twice a day at different times of the day and keep a record of the results to take to Dr. Brady at your next appt. 6. Since the Thyroid medication was increased in February your thyroid test are now normal. 7. The maximum dose for melatonin and a person your age is 1.5 to 3 mg. You should not be taking 9 mg a day because it can contribute to confusion/memory loss. 8. I do not think the Flomax is helping with your urine retention and the urologist will possibly want to discontinue this since it is not working. For now I have given you a prescription in hopes that over the next few weeks things may improve since she will have been on it for a longer period of time. 9.. It has been a pleasure meeting you Margaret. We have all enjoyed working with you and appreciate your hard work to be able to get home. If you or Joanne have any questions after Dc please do not hesitate to call me. Office: [phone] CELL: [phone] Change is always kind of scary and hard. Some changes are necessary as we get older. You need more help than you have been getting up until now. Allowing other people take over some of the things you used to do helps you to be able to stay at home in your own house safely with your rather than needing to go to a snf. Some people are stubborn and continue to do things they should not be doing and then they get hurt and end up in a snf. Let your family help you. Discharge Orders/Prescriptions Prescriptions: New acetaminophen 500 mg Tablet 1,000 mg PO Q8H PRN PRN (Reason: fever or pain) Qty: 50 0RF sennosides-docusate sodium [Stool Softener-Stimulant Laxat] 8.6-50 mg Tablet 2 tab PO BID Qty: 120 3RF melatonin 3 mg Tablet 3 mg PO QHS Qty: 30 0RF tamsulosin 0.4 mg Capsule 0.4 mg PO DAILY@1730 Qty: 30 0RF levothyroxine 50 mcg Tablet 50 mcg PO DAILY@0600 Qty: 30 0RF hydralazine 50 mg Tablet 50 mg PO BID Qty: 60 0RF lisinopril 5 mg Tablet 5 mg PO BID Qty: 60 0RF ferrous gluconate 324 mg (37.5 mg iron) tablet 324 mg PO DAILY Qty: 90 0RF Rx Instructions: Take this medication once daily WITH FOOD Continued aspirin 81 mg tablet,chewable 1 tab PO DAILY diltiazem HCl 240 mg capsule,extended release 24hr 240 mg PO DAILY Qty: 30 3RF carbamazepine [Tegretol] 200 mg tablet 200 mg PO TID Qty: 90 3RF ergocalciferol (vitamin D2) 1,250 mcg (50,000 unit) capsule 1,250 mcg PO QWEEK Qty: 4 0RF apixaban 5 mg tablet 5 mg PO BID Qty: 60 0RF magnesium oxide 400 mg magnesium tablet 400 mg PO BID Qty: 60 0RF Changed atorvastatin [Lipitor] 40 mg tablet 40 mg PO QHS Qty: 30 0RF Discontinued acetaminophen 500 mg tablet 1,000 mg PO Q8 levothyroxine 25 mcg tablet 25 mcg PO DAILY lisinopril 5 mg tablet 5 mg PO DAILY lidocaine [Lidoderm] 5 % adhesive patch,medicated 1 patch topical DAILY Rx Instructions: leave on most painful area for up to 12 hrs melatonin 3 mg tablet 9 mg PO QHS albuterol sulfate [Ventolin HFA] 90 mcg/actuation HFA aerosol inhaler 1 puff inhalation Q4H PRN PRN (Reason: Wheezing) No Action ipratropium-albuterol 0.5 mg-3 mg(2.5 mg base)/3 mL solution for nebulization 3 ml inhalation Q6H PRN (Reason: wheezing/SOB) Referrals / Follow Up: Laura Davis [Other] - 04/29/23 1:00 pm moiz ABAD [Other] - 04/29/23 12:00 pm Jesse Garza [Other] - 08/03/23 11:20 am Kirk Vasquez MD [Med Staff - Active Staff] - Jolly Brady MD [Primary Care Provider] - 04/28/23 4:00 pm Disposition Disposition (needs filled in before D/C Order can be placed): Home Health Service Charges/Coding Visit Charges Inpatient E&M: 08497 Disch Hosp >30min
[2023-04-21 14:53] VITALS: BP 107/51; PULSE 88
--- NOTE | 2023-04-21 14:55 | NURSING ---
discharge home with daughter. discharged instructions, medications and appointments reviewed with pt and daughter. catheter care reviewed with pt & daughter. denies questions or concerns
[2023-04-21 14:58] VITALS: BP 107/51; PULSE 88; RESP 17; TEMP 36.6; O2SAT 98
== END 2023-04-21 14:59 | disposition home health service (06) | DRG 560 ==
PROVIDERS: Admitting Provider Internal Medicine; PCP Internal Medicine; Referring Provider Internal Medicine; Visit Provider Internal Medicine
DX: S22.41XD Multiple fractures of ribs, right side, subsequent encounter for fracture with routine healing (principal); I48.11 Longstanding persistent atrial fibrillation; N39.0 Urinary tract infection, site not specified; I10 Essential (primary) hypertension; E78.5 Hyperlipidemia, unspecified; I25.10 Atherosclerotic heart disease of native coronary artery without angina pectoris; W19.XXXD Unspecified fall, subsequent encounter; F09 Unspecified mental disorder due to known physiological condition; S27.1XXD Traumatic hemothorax, subsequent encounter; T79.7XXD Traumatic subcutaneous emphysema, subsequent encounter; E07.81 Sick-euthyroid syndrome; Z87.891 Personal history of nicotine dependence; Z79.01 Long term (current) use of anticoagulants; N31.9 Neuromuscular dysfunction of bladder, unspecified; R33.8 Other retention of urine; Z79.899 Other long term (current) drug therapy; Z79.890 Hormone replacement therapy; Z79.82 Long term (current) use of aspirin; B95.62 Methicillin resistant Staphylococcus aureus infection as the cause of diseases classified elsewhere; M85.80 Other specified disorders of bone density and structure, unspecified site; N40.1 Benign prostatic hyperplasia with lower urinary tract symptoms
CPT/HCPCS: 36415; 71046; 80053; 80156; 81001; 82274; 82728; 83540; 83550; 83735; 84100; 84153; 84439; 84443; 85014; 85018; 85025; 85027; 85045; 87077; 87086; 87088; 87186; 92507; 92523; 92526; 92610; 97110; 97112; 97116; 97129; 97130; 97162; 97166; 97530; 97535; J7050; G0103; J2916

== ENCOUNTER → 2023-04-27 | Outpatient (CLI) | payer MEDICARE, OTHER, SELFPAY ==
[2022-06-17 09:31] VITALS: BMI 29.1
[2023-04-27 18:00] LABS: Mucous, Urine 0 SEEN /hpf (<or=2+); Squamous Epithelial Cells - UA 0 SEEN /hpf (0-5)
[2023-04-27 18:10] LABS: Color, Urine Yellow (Yellow); Glucose, Dipstick Normal (Normal); Ketone-Dipstick 5 mg/dl (Negative); Leukocyte Esterase-Dipstick 500 /ul (Negative); Nitrite-Dipstick Negative (Negative); Occult Blood-Urine 250 /ul (Negative); Protein-Dipstick 30 mg/dl (Negative); Specific Gravity, Urine 1.015 (1.002-1.030); Urine Bilirubin Dipstick Negative (Negative); Urine Clarity Cloudy (Clear); Urine Urobilinogen 1 mg/dl (Normal)
[2023-04-27 18:22] LABS: Amorphous Sediment 2+; Red Blood Cells-Urine 25-50 SEEN /hpf (0-5); White Blood Cells 25-50 SEEN /hpf (0-5)
[2023-04-27 18:23] LABS: Bacteria 2+ /hpf (None Seen)
== END | disposition home or self-care (01) ==
PROVIDERS: PCP Internal Medicine; Visit Provider Internal Medicine
DX: R33.9 Retention of urine, unspecified (principal); N39.0 Urinary tract infection, site not specified; E07.81 Sick-euthyroid syndrome; Z86.39 Personal history of other endocrine, nutritional and metabolic disease
CPT/HCPCS: 81001; 87077; 87086; 87088; 87186

== ENCOUNTER → 2023-05-10 | Outpatient (CLI) | payer MEDICARE, OTHER, SELFPAY ==
[2022-06-17 09:31] VITALS: BMI 29.1
[2023-05-10 16:02] LABS: Absolute Lymphocyte Count 1.44 X10^3/uL (0.83-4.51); Basophil# 0.05 X10^3/uL; Basophil% 0.8 % (0-1); Eosinophil# 0.17 X10^3/uL; Eosinophils% 2.7 % (0-5); Hematocrit 29.1 % (40-54); Hemoglobin 9.1 g/dL (13.0-16.5); Lymphocyte # 1.44 X10^3/ul (0.83-4.51); Lymphocyte % 22.5 % (19-41); Mean Corp Hgb Conc 31.3 g/dL (32-36); Mean Corpuscular Hgb 27.8 pg (27.0-32.0); Mean Platelet Vol. 9.1 fl (6.2-12.0); Monocyte# 0.71 X10^3/uL; Monocyte% 11.1 % (0-10); NRBC Flagged by Analyzer 0 % (0-5); Neutrophil # 4.01 X10^3/uL (2.7-7.7); Neutrophil % 62.6 % (47-70); Platelet Count 271 K/mm3 (150-450); RBC Distribution Width CV 15.9 % (11.6-14.6); RBC Distribution Width SD 51.8 fl (35.1-43.9); Red Blood Count 3.27 M/mm3 (4.6-6.2); White Blood Count 6.4 K/mm3 (4.4-11.0)
== END | disposition home or self-care (01) ==
LOC: LAB 14:42
PROVIDERS: PCP Internal Medicine; Referring Provider Internal Medicine; Visit Provider Internal Medicine
DX: E07.81 Sick-euthyroid syndrome (principal)
CPT/HCPCS: 36415; 85025

== ENCOUNTER → 2023-05-20 | Outpatient (CLI) | payer MEDICARE, OTHER, SELFPAY ==
[2022-06-17 09:31] VITALS: BMI 29.1
--- NOTE | 2023-05-20 12:35 | RAD_ITS ---
STUDY: X-RAY - LEFT HUMERUS REASON FOR EXAM: Male, 83 years old. Left arm pain. TECHNIQUE: 2 views of the left humerus. COMPARISON: None. FINDINGS: Normal visualized humerus. There is no demonstrated fracture or osseous destructive process. There is no demonstrated soft tissue abnormality. RAD/Humerus min 2 Views IMPRESSION: Normal x-ray examination of the humerus. Electronically Signed: Wolfgang Colindres MD at 10:43 EDT ,
--- NOTE | 2023-05-20 12:35 | RAD_ITS ---
STUDY: X-RAY - LEFT SHOULDER REASON FOR EXAM: Male, 83 years old. Left arm pain. TECHNIQUE: 6 views of the left shoulder. COMPARISON: None. FINDINGS: Normal glenohumeral articulation. Normal acromioclavicular joint. Normal acromion. There is small calcific density adjacent to the greater tuberosity of the humeral head, probably related to calcific tendinitis of the rotator cuff. Intact humeral head and visualized proximal humerus. The soft tissue structures are unremarkable. There is no demonstrated fracture. There is atherosclerotic calcification of the aortic arch. Normal visualized pulmonary apex. RAD/Shoulder min 2 Views IMPRESSION: Suspected calcific tendinitis of the rotator cuff. No demonstrated fracture. Electronically Signed: Wolfgang Colindres MD at 8:52 EDT ,
== END | disposition home or self-care (01) ==
LOC: RAD 12:33
PROVIDERS: PCP Internal Medicine; Referring Provider Internal Medicine; Visit Provider Internal Medicine
DX: M79.602 Pain in left arm (principal)
CPT/HCPCS: 73030; 73060

== ENCOUNTER 2023-06-17 07:39 | Inpatient (IN) | payer MEDICARE, OTHER, SELFPAY ==
[2022-06-17 09:31] VITALS: BMI 29.1
[2023-06-17] VITALS (13 sets, daily range): BP systolic 100–201; BP diastolic 53–121; PULSE 82–111; RESP 14–26; TEMP 36.2–36.8; O2SAT 90–100; BMI 29.2; BMI 25.9
--- NOTE | 2023-06-17 07:54 | CT_ITS ---
STUDY: CT CERVICAL SPINE WITHOUT CONTRAST REASON FOR EXAM: Male, 83 years old. Trauma RADIATION DOSAGE (If Supplied By Facility): CTDIvol = ( 17.52 ) mGy, DLP = ( 348.43 ) mGycm TECHNIQUE: High resolution transaxial imaging was performed without contrast material. Sagittal and coronal images were reconstructed. Individualized dose optimization techniques were used for this CT. COMPARISON: Comparison is made with prior study April 01, 2023. FINDINGS: Normal craniovertebral junction. There are degenerative changes of the anterior atlantoaxial articulation. Normal odontoid process. Normal cervical lordosis. Normal vertebral bodies and posterior osseous elements. C2-3: Disc space narrowing. C3-4: Facet joint osteoarthritis and hypertrophy worse on the right side. Uncovertebral arthrosis. Mild degree of bilateral neural foraminal stenosis. C4-5: Facet joint osteoarthritis and hypertrophy worse on the right side. Uncovertebral arthrosis. Mild bilateral neural foraminal stenosis. C5-6: Facet joint osteoarthritis and hypertrophy worse on the left side. Marked degree of bilateral neural foraminal stenosis. C6-7: Normal endplates. Normal disc height and morphology. Normal central canal and intervertebral neuroforamina. C7-T1: Normal endplates. Normal disc height and morphology. Normal central canal and intervertebral neuroforamina. Calcification of the vertebral arteries and the cavernous portions of the internal carotid arteries bilaterally. Heterogeneous appearance of the thyroid. CT/Spine Cervical without Contras IMPRESSION: Multilevel degenerative changes, as described above. Electronically Signed: Jose Carrillo MD at 9:46 EDT ,
--- NOTE | 2023-06-17 07:54 | CT_ITS ---
STUDY: CT BRAIN WITHOUT CONTRAST REASON FOR EXAM: Male, 83 years old. Trauma RADIATION DOSAGE (If Supplied By Facility): CTDIvol = ( 47.06 ) mGy, DLP = ( 1780.66 ) mGycm TECHNIQUE: Transaxial CT imaging of the brain was performed without administration of intravenous contrast material. Individualized dose optimization techniques were used for this CT. COMPARISON: Comparison is made with prior study dated April 01, 2023. FINDINGS: Soft tissue swelling overlying the right orbit. Normal calvarium. There is mild cerebral atrophy with widening of the extra-axial spaces and ventricular dilatation. There are areas of decreased attenuation within the white matter tracts of the supratentorial brain, consistent with microvascular disease changes. Tiny old lacunae in the insular cortex of the left temporal lobe. Normal brainstem. Normal cerebellum. There is no intracranial hemorrhage. There are no findings of an acute ischemic infarction. Dense calcification of the vertebral arteries. Minimal mucosal thickening along the posterior aspect of the left sphenoid sinus. CT/Brain/Head without Contrast IMPRESSION: Chronic involutional changes of the brain. Soft tissue swelling overlying the right orbital region. Electronically Signed: Jose Carrillo MD at 9:44 EDT ,
--- NOTE | 2023-06-17 07:58 | ED.VIS.FALL ---
HPI HPI - Fall History of Present Illness Chief Complaint: Fall Informant: patient and EMS Narrative Narrative: Patient presents after fall at home. He states he got up to go the restroom this morning, had to take 1 step down on a carpeted step and lost his balance falling forward. He has a small laceration just above the right eye with pain to his right femur and hip. Patient is on chronic Eliquis secondary to A-fib. He was given fentanyl and Zofran with EMS. 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 Fall Hearing problem Hemothorax on right History of hypothyroidism Hyperlipemia Hypertension Longstanding persistent atrial fibrillation Multiple fractures of ribs of right side Non-ST elevated myocardial infarction Trigeminal nerve disease Unstable angina Home Medications aspirin 81 mg chewable tablet 1 tab PO DAILY heart health 04/08/23 [History Last Taken 06/16/23] acetaminophen 500 mg tablet 1,000 mg (2 x 500 mg) PO Q8H PRN PRN fever or pain #50 tabs 04/21/23 [Rx Last Taken Unknown] apixaban 5 mg tablet 5 mg PO BID #60 tabs 04/21/23 [Rx Last Taken 06/16/23] atorvastatin 40 mg tablet (Lipitor) 40 mg PO QHS cholesterol #30 tabs 04/21/23 [Rx Last Taken 06/16/23] diltiazem HCl 240 mg capsule,extended release 24 hr 240 mg PO DAILY blood pressure #30 caps 04/21/23 [Rx Last Taken 06/16/23] ferrous gluconate 324 mg (37.5 mg iron) tablet 324 mg PO DAILY #90 tabs 04/21/23 [Rx Last Taken 06/16/23] levothyroxine 50 mcg tablet 50 mcg PO DAILY@0600 #30 tabs 04/21/23 [Rx Last Taken 06/17/23] magnesium oxide 400 mg PO BID supplement #60 tabs 04/21/23 [Rx Last Taken 06/16/23] sennosides 8.6 mg-docusate sodium 50 mg tablet (Stool Softener-Stimulant Laxative) 2 tab PO BID #120 tabs 04/21/23 [Rx Last Taken Unknown] tamsulosin 0.4 mg capsule 0.4 mg PO DAILY@1730 #30 caps 04/21/23 [Rx Last Taken 06/16/23] lisinopril 5 mg tablet 5 mg PO BID #60 tabs 05/03/23 [Rx Last Taken 06/16/23] hydralazine 25 mg tablet 25 mg PO BID #180 tabs 05/10/23 [Rx Last Taken 06/16/23] carbamazepine 200 mg tablet (Tegretol) 200 mg PO TID seziures #90 tabs 06/11/23 [Rx Last Taken 06/17/23] cranberry 500 mg capsule 1,000 mg PO DAILY 06/17/23 [History Last Taken 06/16/23] Allergy/AdvReac Type Severity Reaction Status Date / Time No Known Allergies Allergy Verified 06/17/23 07:40 Surgical History History of chest tube placement History of prostate surgery Hx of skin graft Hx of tonsillectomy Status post aorto-coronary artery bypass graft Social History Smoking Status: Former smoker how long ago did patient quit smokin02/08/1969 alcohol intake: never substance use type: does not use what type of physical activity do you participate in: none ROS ROS ED Constitutional Constitutional ED: Denies chills or fever(s) Eyes Eyes: Denies discharge from eye(s) ENT ENT ED: Denies discharge from eye(s), rhinorrhea or sore throat Cardiovascular Cardiovascular: Denies chest pain or palpitations Respiratory/Chest Respiratory/Chest: Denies cough or dyspnea Gastrointestinal Gastrointestinal: Denies abdominal pain, nausea or vomiting Musculoskeletal Musculoskeletal: Reports extremity pain; Denies back pain Integumentary Reports other Details: Facial laceration ; Denies Abrasions or rash Neurologic Neurologic: Denies headache(s) or weakness Allergic/Immunologic Allergic/Immunologic ED: Denies lip swelling or urticaria EXAM Physical Exam Const Vital Signs: 06/17/23 07:40 06/17/23 07:44 06/17/23 08:39 Temperature 97.2 F L Temperature Source Temporal Pulse Rate 87 91 Respiratory Rate 14 19 H Respiratory Effort Normal Non-Labored Blood Pressure 186/121 H 158/90 H Blood Pressure Mean 142 112 Pulse Ox 100 99 Oxygen Delivery Method Room Air Room Air 06/17/23 09:00 Temperature Temperature Source Pulse Rate 104 H Respiratory Rate 26 H Respiratory Effort Blood Pressure 157/94 H Blood Pressure Mean 115 Pulse Ox 100 Oxygen Delivery Method Room Air Positive well nourished and well developed General Appearance ED: well developed HEENT HEENT Narrative: 2 cm laceration along the right eyebrow. Mild bleeding noted at this time. Early ecchymosis. Eyes EOMs intact bilaterally Neck Neck Narrative: No focal C-spine tenderness. Chest Wall inspection of chest normal and palpation of chest normal Resp normal respiratory effort and clear to auscultation bilaterally Cardio regular rate and regular rhythm GI non-tender Palpation: soft Extremity Extremity Narrative: Tenderness along the proximal right femur with hip held in slight flexion. Calf is soft and nontender. Good sensation distally. Can wiggle toes. Neuro oriented x3 Psych mental status grossly normal MDM MDM MDM Narrative Medical decision making narrative: IV line established. Patient placed on environmental monitoring specialist. Additional morphine will be given for pain control. Labwork obtained to evaluate for leukocytosis, anemia, and electrolyte derangement. CT scan of the head and C-spine obtained to evaluate for intracranial bleed or fracture. X-rays of the pelvis, right hip, and right femur obtained to evaluate for potential fracture. History & Record Review Discussion w/independent historian: Patient Lab Data Attestation: I reviewed the patient's lab results. Labs: Laboratory Results - last 24 hr 06/17/23 08:08 WBC 8.9 RBC 4.17 L Hgb 11.5 L Hct 36.5 L MCV 87.5 MCH 27.6 MCHC 31.5 L RDW Std Deviation 50.4 H RDW Coeff of [place] 15.8 H Plt Count 165 MPV 8.9 Immature Gran % (Auto) 0.900 Neut % (Auto) 79.2 H Lymph % (Auto) 11.6 L [place] % (Auto) 6.7 Eos % (Auto) 1.2 Baso % (Auto) 0.4 Absolute Neuts (auto) 7.1 Absolute Lymphs (auto) 1.03 Nucleated RBC % 0 PT 16.2 H INR 1.3 APTT 35.6 Sodium 140 Potassium 3.3 L Chloride 108 H Carbon Dioxide 28.0 Anion Gap 4 L BUN 12 Creatinine 0.61 L Estim Creat Clear Calc 81.40 Est GFR (MDRD) Af Amer 161 Est GFR (MDRD) Non-Af 133 BUN/Creatinine Ratio 19.5 Glucose 114 H Calcium 10.1 Radiography Diagnostic Testing: Clinical Impression(s) from Imaging Studies Brain CT 06/17/23 07:54 IMPRESSION: Chronic involutional changes of the brain. Soft tissue swelling overlying the right orbital region. Electronically Signed: Jose Carrillo MD at 9:44 EDT , Cervical Spine CT 06/17/23 07:54 IMPRESSION: Multilevel degenerative changes, as described above. Electronically Signed: Jose Carrillo MD at 9:46 EDT Reading Location ID and State: [id number] , Service support , Chest X-Ray 06/17/23 08:50 IMPRESSION: Hyperinflation. Pleural parenchymal changes at the right lung base. Electronically Signed: Jose Carrillo MD at 9:37 EDT Reading Location ID and State: [id number] , Service support , Femur X-Ray 06/17/23 08:50 IMPRESSION: Nondisplaced right intertrochanteric fracture. Electronically Signed: Jose Carrillo MD at 9:35 EDT Reading Location ID and State: [id number] , Service support , Pelvis X-Ray 06/17/23 08:50 IMPRESSION: Nondisplaced right intertrochanteric fracture. Electronically Signed: Jose Carrillo MD at 9:41 EDT Reading Location ID and State: [id number] , Service support , EKG Initial EKG: Comments: A-fib with ventricular rate of 88 bpm. No obvious ischemia. Treatment and Re-Evaluation Narrative: CBC reveals white count of 8.9 with a hemoglobin 11.5. 165,000 platelet count noted. 79% neutrophils. INR is 1.3. Chemistry studies significant for potassium of 3.3. This is replaced IV. CT scan of the head reveals chronic involutional changes. CT of the C-spine reveals multilevel degenerative changes. Chest x-ray per my interpretation was chronic changes with no focal infiltrate. Radiology interpretation reviewed and agrees. Pelvis and right femur x-rays per my interpretation reveal an intertrochanteric hip fracture. Radiology interpretation reviewed and agrees. Laceration along the right eyebrow is cleansed. This is sealed with Dermabond. Patient tolerates procedure well. Test results discussed with patient and daughter at bedside. Justin catheter will be placed at this time. I will obtain an EKG for preoperative clearance. He is last dose of Eliquis was at 8 PM last evening. I will speak with both orthopedics as well as hospitalist for admission. I did speak with Dr. Sifuentes, on-call for orthopedics. Given his last dose of Eliquis was last evening plan will be for operative repair of his right hip on Wednesday morning. Discharge Plan Dx/Rx/DC Orders Clinical Impression: Laceration of right facial nerve, Fall, Closed right hip fracture Disposition Disposition: Acute Care [facility]
[2023-06-17] MEDS: Morphine 4 MG/ML Syringe IV ×2 (08:10→10:34)
[2023-06-17 08:23] LABS: Absolute Lymphocyte Count 1.03 X10^3/uL (0.83-4.51); Absolute Neutrophil Count 7.1 X10^3/uL (2.0-7.7); Basophil# 0.04 X10^3/uL; Basophil% 0.4 % (0-1); Eosinophil# 0.11 X10^3/uL; Eosinophils% 1.2 % (0-5); Hematocrit 36.5 % (40-54); Hemoglobin 11.5 g/dL (13.0-16.5); Lymphocyte # 1.03 X10^3/ul (0.83-4.51); Lymphocyte % 11.6 % (19-41); Mean Corp Hgb Conc 31.5 g/dL (32-36); Mean Corpuscular Hgb 27.6 pg (27.0-32.0); Mean Corpuscular Volume 87.5 fL (80-94); Mean Platelet Vol. 8.9 fl (6.2-12.0); Monocyte% 6.7 % (0-10); NRBC Flagged by Analyzer 0 % (0-5); Neutrophil # 7.05 X10^3/uL (2.7-7.7); Neutrophil % 79.2 % (47-70); Platelet Count 165 K/mm3 (150-450); RBC Distribution Width CV 15.8 % (11.6-14.6); RBC Distribution Width SD 50.4 fl (35.1-43.9); Red Blood Count 4.17 M/mm3 (4.6-6.2); White Blood Count 8.9 K/mm3 (4.4-11.0)
[2023-06-17 08:39] LABS: Anion Gap 4 (5-15); BUN 12 mg/dL (7-18); BUN/Creat Ratio 19.5 RATIO (10-20); Calcium,Total 10.1 mg/dL (8.5-10.1); Chloride 108 mmol/L (98-107); Creatinine, Serum 0.61 mg/dL (0.70-1.30); EST Glomerular Filtration Rate 133 mL/min (>60); Est Glom Filt Rate - Afr Amer 161 mL/min (>60); Glucose 114 mg/dL (74-106); Potassium 3.3 mmol/L (3.5-5.1); Sodium Level 140 mmol/L (136-145)
[2023-06-17 08:41] LABS: International Normalized Ratio 1.3; Prothrombin Time (Protime)PT. 16.2 SECONDS (11.7-14.9)
[2023-06-17 08:43] LABS: Partial Thromboplast Time 35.6 Seconds (24.1-36.2)
--- NOTE | 2023-06-17 08:50 | RAD_ITS ---
STUDY: X-RAY - RIGHT FEMUR REASON FOR STUDY: Male, 83 years old. Fall TECHNIQUE: 5 view(s) of the femur. COMPARISON: None. FINDINGS: There is a nondisplaced right intertrochanteric fracture. Soft tissue swelling. There are atherosclerotic vascular calcifications. RAD/Femur Min 2 Views IMPRESSION: Nondisplaced right intertrochanteric fracture. Electronically Signed: Jose Carrillo MD at 9:35 EDT ,
--- NOTE | 2023-06-17 08:50 | RAD_ITS ---
STUDY: X-RAY CHEST REASON FOR EXAM: Male, 83 years old. Trauma TECHNIQUE: Single AP portable view of the chest. COMPARISON: Comparison is made with prior study dated May 10, 2023. FINDINGS: EKG electrodes are seen. Hyperinflation. Residual blunting of the right costophrenic angle. Stable scarring at the right lung base. Sternal cerclage wires and vascular clips are present from a prior sternotomy and coronary artery bypass graft procedure (CABG). Normal mediastinum and janie. Normal visualized pulmonary arteries. There is atherosclerotic calcification of the aortic arch with tortuosity. Normal visualized thoracic spine. Normal visualized ribs, clavicles, and shoulders. There is no demonstrated abnormality of the visualized soft tissue structures of the upper abdomen. RAD/Chest 1 View (Portable) IMPRESSION: Hyperinflation. Pleural parenchymal changes at the right lung base. Electronically Signed: Jose Carrillo MD at 9:37 EDT ,
--- NOTE | 2023-06-17 08:50 | RAD_ITS ---
STUDY: X-RAY - PELVIS REASON FOR EXAM: Male, 83 years old. Trauma TECHNIQUE: One view of the pelvis was obtained. COMPARISON: None. FINDINGS: Moderate amount of fecal material is seen in the colon. Normal visualized soft tissue structures. Normal bilateral iliac wings, sacroiliac joints and visualized sacrum. Normal visualized bilateral superior and inferior pubic rami. Normal pubic symphysis. Normal ischial tuberosities. Nondisplaced right intertrochanteric fracture. Normal visualized left femoral head. Normal left acetabulum. Normal left hip joint. RAD/Pelvis 1 or 2 Views IMPRESSION: Nondisplaced right intertrochanteric fracture. Electronically Signed: Jose Carrillo MD at 9:41 EDT ,
[2023-06-17] MEDS: Ondansetron 4 MG/2 ML Vial IV ×2 (10:29→15:00)
--- NOTE | 2023-06-17 11:13 | PCM.HP.STD ---
HPI - General General Date of Admission: 06/17/23 Date of Service: 06/17/23 Chief Complaint: R Hip pain HPI Narrative OLGA CREWS, is a 83 M who presented to the emergency department at [facility] on 06/17/2023 after sustaining a mechanical fall. He indicated he got up out of bed to go to the bathroom and he had 1 step built up to his bed for his who has some disability to help her get in bed and stepped onto the carpeted step accidentally and lost his balance falling forward. He did hit his head and had small laceration above his right eye and was complaining of some pain to his right eye area with no change in his vision as well as pain in his right hip area. He is chronically anticoagulated with Eliquis due to history of atrial fibrillation. Vital signs on presentation showed temperature of 97.2, heart rate 87, blood pressure was 186/21 with repeat at 158/90, respiratory was 14 oxygen saturations were 100% on room air. His initial EKG was atrial fibrillation with a ventricular rate of 88 bpm and no signs of ischemia. CBC showed a mild anemia with a hemoglobin of 11.5. Or slightly elevated but not dramatically abnormal given his history of Eliquis use. His chemistry panel showed mild hyponatremia with a potassium of 3.3 his glucose was 114. Extensive imaging was performed given his fall on Eliquis. He had a CT of his brain which showed soft tissue swelling at the right orbital region but no signs of fractures and only chronic involutional changes of the brain. CT of the cervical spine was unremarkable for any acute findings. Chest x-ray demonstrated hyperinflation with pleural-parenchymal changes at the right base. Sternotomy wires are noted. Pelvic x-rays and right femoral x-rays both demonstrated a nondisplaced right intertrochanteric fracture. He was given potassium placement as well as medications for pain and nausea and admitted to the medical floor. 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 Fall Hearing loss, left Hearing problem Heart attack Hemothorax on right History of hypothyroidism Hyperlipemia Hypertension Longstanding persistent atrial fibrillation Multiple fractures of ribs of right side Non-ST elevated myocardial infarction Trigeminal nerve disease Unstable angina Home Medications aspirin 81 mg chewable tablet 1 tab PO DAILY heart health 04/08/23 [History Last Taken 06/16/23] acetaminophen 500 mg tablet 1,000 mg (2 x 500 mg) PO Q8H PRN PRN fever or pain #50 tabs 04/21/23 [Rx Last Taken Unknown] apixaban 5 mg tablet 5 mg PO BID #60 tabs 04/21/23 [Rx Last Taken 06/16/23] atorvastatin 40 mg tablet (Lipitor) 40 mg PO QHS cholesterol #30 tabs 04/21/23 [Rx Last Taken 06/16/23] diltiazem HCl 240 mg capsule,extended release 24 hr 240 mg PO DAILY blood pressure #30 caps 04/21/23 [Rx Last Taken 06/16/23] ferrous gluconate 324 mg (37.5 mg iron) tablet 324 mg PO DAILY #90 tabs 04/21/23 [Rx Last Taken 06/16/23] levothyroxine 50 mcg tablet 50 mcg PO DAILY@0600 #30 tabs 04/21/23 [Rx Last Taken 06/17/23] magnesium oxide 400 mg PO BID supplement #60 tabs 04/21/23 [Rx Last Taken 06/16/23] sennosides 8.6 mg-docusate sodium 50 mg tablet (Stool Softener-Stimulant Laxative) 2 tab PO BID #120 tabs 04/21/23 [Rx Last Taken Unknown] tamsulosin 0.4 mg capsule 0.4 mg PO DAILY@1730 #30 caps 04/21/23 [Rx Last Taken 06/16/23] lisinopril 5 mg tablet 5 mg PO BID #60 tabs 05/03/23 [Rx Last Taken 06/16/23] hydralazine 25 mg tablet 25 mg PO BID #180 tabs 05/10/23 [Rx Last Taken 06/16/23] carbamazepine 200 mg tablet (Tegretol) 200 mg PO TID seziures #90 tabs 06/11/23 [Rx Last Taken 06/17/23] cranberry 500 mg capsule 1,000 mg PO DAILY 06/17/23 [History Last Taken 06/16/23] Allergy/AdvReac Type Severity Reaction Status Date / Time No Known Allergies Allergy Verified 06/17/23 07:40 Family History Other Heart disease Surgical History History of chest tube placement History of prostate surgery Hx of skin graft Hx of tonsillectomy Status post aorto-coronary artery bypass graft Social History Smoking Status: Former smoker how long ago did patient quit smokin02/08/1969 alcohol intake: never substance use type: does not use what type of physical activity do you participate in: none ROS Constitutional Constitutional: Denies anorexia, change in weight, chills, fatigue, fever(s), malaise, night sweats, weakness or other Eyes Eyes: Denies blurry vision, change in eye color, change in vision, discharge from eye(s), double vision, erythema, eye pain, loss of vision or other ENT HEENT: Reports abnormal hearing and hearing loss; Denies dysphagia, ear pain, epistaxis, headache(s), nasal congestion, nasal discharge, post nasal drip, sinus pressure, sore throat or other Cardiovascular Cardiovascular: Denies chest pain, claudication, dyspnea on exertion, edema, lightheadedness, orthopnea, palpitations, paroxysmal nocturnal dyspnea, rapid heart rate, syncope or other Respiratory/Chest Respiratory/Chest: Denies cough, dyspnea, excessive phlegm production, hemoptysis, productive cough, shortness of breath at rest, shortness of breath with exertion, wheezing or other Gastrointestinal Gastrointestinal: Reports nausea and other Details: Dry heaving ; Denies abdominal pain, coffee ground emesis, constipation, diarrhea, dyspepsia, hematemesis, hematochezia, loose stools, melena or vomiting Genitourinary Genitourinary: Reports difficulty urinating, nocturia and urinary hesitancy; Denies burning urination, dysuria, hematuria, urinary frequency, urinary incontinence, urinary urgency or other Musculoskeletal Musculoskeletal: Reports joint pain and joint swelling; Denies arthralgias, back pain, joint stiffness, myalgias, neck pain or other Neurologic Neurologic: Reports abnormal gait; Denies abnormal speech, confusion, disequilibrium, dizziness, focal weakness, headache(s), numbness, paresthesias, seizure-like activity, seizures, syncope, tingling, tremor(s) or other Psychiatric Psychiatric: Denies anxiety, depression, homicidal ideation, suicidal ideation or other Endocrine Endocrinology: Denies change in body appearance, cold intolerance, excessive sweating, heat intolerance, polydipsia, polyuria or other Hematologic/Lymphatic Hematologic/Lymphatic: Denies anemia, easy bleeding, easy bruising, lymphadenopathy or other Allergic/Immunologic Allergic/Immunologic: Denies rhinitis, hives, eczemia, asthma or other Vital Signs Vital Signs Vital Signs: 06/17/23 07:40 06/17/23 07:44 06/17/23 08:39 Temperature 97.2 F L Temperature Source Temporal Pulse Rate 87 91 Respiratory Rate 14 19 H Respiratory Effort Normal Non-Labored Blood Pressure 186/121 H 158/90 H Blood Pressure Mean 142 112 Pulse Ox 100 99 Oxygen Delivery Method Room Air Room Air 06/17/23 09:00 Temperature Temperature Source Pulse Rate 104 H Respiratory Rate 26 H Respiratory Effort Blood Pressure 157/94 H Blood Pressure Mean 115 Pulse Ox 100 Oxygen Delivery Method Room Air Weight Weight: 92.6 kg Body Mass Index (BMI) 29.2 Physical Exam Const alert, oriented x3, average body habitus and well nourished; Negative for no apparent distress Constitutional Narrative: Elderly, white male, sitting up in bed, nursing at bedside, nurses aide at bedside, patient quite nauseated and actively dry heaving, does not appear toxic but does appear uncomfortable General Appearance: cooperative HEENT normocephalic and moist oral mucous membranes; Negative for head/scalp atraumatic HEENT Narrative: Laceration above right eye that has been glued with Dermabond and ecchymotic area around right eye superior and inferior to the orbit, no significant hearing loss appreciated, Mallampati is 2, no thrush Eyes PERRL, EOMs intact bilaterally and conjunctivae normal Eyes Narrative: No scleral icterus Neck no lymphadenopathy and supple Neck Narrative: Trachea midline, no thyroid enlargement Resp normal respiratory effort, no retractions, no use of accessory muscles and clear to auscultation bilaterally Cardio S1 normal heart sound, S2 normal heart sound, no murmurs, no rub, no gallops and no clicks; Negative for regular rate or regular rhythm Cardio Narrative: Irregular irregular rhythm with slightly elevated heart rate GI normal to inspection, nondistended, normoactive bowel sounds, soft to palpation and non-tender Extremity no clubbing, cyanosis or edema Extremity Narrative: Right lower extremity is shortened and externally rotated Skin No no rashes or lesions noted, No no wounds, skin turgor normal, no jaundice, no petechiae and no mottling Skin Narrative: Significant ecchymosis on face as noted above with laceration as noted above, well-healing sternotomy incision Neuro oriented x3, moves all extremities and no focal motor deficits Speech: speech normal Psych affect normal Psych Narrative: Appears comfortable, nontoxic Results Lab / Micro Data 06/17/23 08:08 06/17/23 08:08 Labs: Laboratory Results - last 24 hr 06/17/23 08:08: WBC 8.9, RBC 4.17 L, Hgb 11.5 L, Hct 36.5 L, MCV 87.5, MCH 27.6, MCHC 31.5 L, RDW Std Deviation 50.4 H, RDW Coeff of [place] 15.8 H, Plt Count 165, MPV 8.9, Immature Gran % (Auto) 0.900, Neut % (Auto) 79.2 H, Lymph % (Auto) 11.6 L, [place] % (Auto) 6.7, Eos % (Auto) 1.2, Baso % (Auto) 0.4, Absolute Neuts (auto) 7.1, Absolute Lymphs (auto) 1.03, Nucleated RBC % 0, PT 16.2 H, INR 1.3, APTT 35.6, Sodium 140, Potassium 3.3 L, Chloride 108 H, Carbon Dioxide 28.0, Anion Gap 4 L, BUN 12, Creatinine 0.61 L, Estim Creat Clear Calc 81.40, Est GFR (MDRD) Af Amer 161, Est GFR (MDRD) Non-Af 133, BUN/Creatinine Ratio 19.5, Glucose 114 H, Calcium 10.1 Imaging Radiology Impression Brain CT 06/17/23 07:54 IMPRESSION: Chronic involutional changes of the brain. Soft tissue swelling overlying the right orbital region. Electronically Signed: Jose Carrillo MD at 9:44 EDT , Cervical Spine CT 06/17/23 07:54 IMPRESSION: Multilevel degenerative changes, as described above. Electronically Signed: Jose Carrillo MD at 9:46 EDT , Chest X-Ray 06/17/23 08:50 IMPRESSION: Hyperinflation. Pleural parenchymal changes at the right lung base. Electronically Signed: Jose Carrillo MD at 9:37 EDT , Femur X-Ray 06/17/23 08:50 IMPRESSION: Nondisplaced right intertrochanteric fracture. Electronically Signed: Jose Carrillo MD at 9:35 EDT , Pelvis X-Ray 06/17/23 08:50 IMPRESSION: Nondisplaced right intertrochanteric fracture. Electronically Signed: Jose Carrillo MD at 9:41 EDT , Assessment & Plan Assessment/Plan (1) Closed right hip fracture: (2) Fall: (3) Closed head injury: (4) Laceration: (5) Hypokalemia: PLAN: Plan Right closed hip fracture -Imaging shows intertrochanteric fracture -Preop chest x-ray was unremarkable for any acute findings -Preop EKG with A-fib with rate control -Patient is not having any chest pain or shortness of breath -Will assess with echocardiogram and if any significant abnormalities we will have cardiology evaluate for preop clearance -Hold Eliquis--> last dose was p.m. of 06/16/2023 -Bedrest for now and PT/OT consultation postoperatively -SCDs for now -Check vitamin D level and replace if less than 30 -Will restart Eliquis for DVT prophylaxis postoperatively when okay with Dr. Sifuentes -Orthopedic surgery consult--> Case was discussed by ER physician with Ortho and plan is for OR Wednesday a.m. -Consult case management/social work as I do anticipate that he will likely need placement at discharge Closed head injury/right supraorbital laceration -Closed with Dermabond -CT x 2 of brain unremarkable -Repeat CT was pursued due to vomiting -Monitor clinically for any change Hypokalemia -Patient has been repleted -Repeat in a.m. -Check a.m. magnesium Mechanical fall -PT/OT to evaluate after surgery CAD/HTN/HPL -CABG x3 on 04/20/[address] Prasad in situ mammary end-to-side mid LAD, vein graft ascending aorta end-to-side obtuse marginal 1, vein graft ascending aorta end-to-side posterior descending (PDA) -Continue home aspirin -Continue home atorvastatin -Continue home hydralazine -Continue home diltiazem -Hold lisinopril for now and restart parts operatively -As needed hydralazine available for systolic pressure greater than 160 -Most recent echocardiogram from 04/16/2022 showed an EF of 65% with a mildly enlarged left atrium Paroxysmal atrial fibrillation with RVR -Continue diltiazem -Heart rates are slightly elevated right now and I suspect this is related to his acute pain -Patient is without chest pain -Will give dose of diltiazem right now -Eliquis on hold due to fracture and in preparation for surgery on Wednesday morning History of trigeminal neuralgia -Continue home carbamazepine BPH with obstruction -Continue home Flomax Hypothyroidism -Continue levothyroxine -Check TSH Chronic anemia -Hemoglobin appears to be stable -Apixaban on hold in preparation for surgery -Will follow blood counts while hospitalized -Expect some drop with fracture and pending surgery Chronic tremor -Slightly worse currently due to pain -Continue to monitor History of meningioma -No current issues DVT prophylaxis -SCDs for now -Will restart Eliquis when appropriate per orthopedic surgery -Anticipate a.m. of 06/20/2023 CODE STATUS -Full code is verified Charges/Coding Visit Charges Inpatient E&M: 43459 Init Hosp L2
[2023-06-17] MEDS: Potassium Chloride 10mEq/100mL 10 MEQ/100 ML IV.SOLN. 100 MEQ IV BOLUS ×4 (12:30→17:09)
--- NOTE | 2023-06-17 14:47 | CT_ITS ---
EXAM: CT HEAD WITHOUT INTRAVENOUS CONTRAST CLINICAL INDICATION: FALL/NAUSEA TECHNIQUE: Multiple axial images were obtained of the head without intravenous contrast. This CT exam was performed using one or more of the following dose reduction techniques: automated exposure control, adjustment of the mA and/or kV according to patient size, and/or use of iterative reconstruction technique. COMPARISON: CT Head dated 06/17/2023 FINDINGS: BRAIN AND EXTRA-AXIAL SPACES: No hemorrhage or mass effect. No acute ischemia. Areas of diminished white matter density noted within both cerebral hemispheres suggestive of chronic microvascular change. Prominence of the cortical sulci and ventricles related to volume loss change. BONES/JOINTS: Normal calvarium. SOFT TISSUES: Right periorbital soft tissue swelling is again noted. SINUSES: No acute sinusitis. MASTOID AIR CELLS: Normal. Clear. CT/Brain/Head without Contrast IMPRESSION: 1. No acute intracranial abnormality. 2. Stable senescent changes. Electronically Signed: Constantino Euceda MD at 15:40 EDT ,
[2023-06-17] MEDS: Morphine 2 MG/ML Syringe IV ×2 (15:00→15:44)
--- NOTE | 2023-06-17 15:06 | NURSING ---
PT LEAVING UNIT FOR STAT CT
[2023-06-17] MEDS: Tamsulosin HCl 0.4 MG Capsule PO (15:45)
[2023-06-17] MEDS: Acetaminophen 500 MG Tablet 1000 MG PO ×2 (16:01→21:12)
[2023-06-17] MEDS: carBAMazepine 200 MG Tablet PO ×2 (16:01→21:12)
[2023-06-17] MEDS: hydrALAZINE 20 MG/ML Vial 10 MG IV (16:02)
[2023-06-17] MEDS: 0.9% Saline Lock 10 ML Syringe IV (16:02)
[2023-06-17] MEDS: oxyCODONE 5 MG Tablet PO ×2 (16:39→21:17)
[2023-06-17 16:54] LABS: Vitamin D,25 Hydroxy 45.6 ng/mL
[2023-06-17] MEDS: dilTIAZem CD 240 MG Capsule PO (17:29)
--- NOTE | 2023-06-17 17:36 | NURSING ---
HR IN THE 150S, DR FRANZ HAPPENED ON THE UNIT AND REVIEWED. ORDERS RECEIVED TO GIVE IV METOPROL AND THEN CHANGED TO PO DOSE OF CARDIZEM TAKES AT HOME PT IS UNSURE IF HE HAS TAKEN IT THIS AM OR NOT. EKG OBTAINED, RESULTS SENT TO DR FRANZ. WILL REPEAT EKG WHEN HR IS BETTER CONTROLLED.
--- NOTE | 2023-06-17 18:33 | NURSING ---
ATTEMPTED TO CALL DAUGHTER YURIDIA WITH UPDATE, NO ANSWER
[2023-06-17] MEDS: Senna/Docusate Sodium 1 Tablet 2 TABLET PO (21:12)
[2023-06-17] MEDS: Atorvastatin Calcium 40 MG Tablet PO (21:12)
[2023-06-17] MEDS: Magnesium Chloride 64 MG Delay Rel.Tablet 128 MG PO (21:12)
[2023-06-18] VITALS (10 sets, daily range): BP systolic 107–169; BP diastolic 57–85; PULSE 75–93; RESP 15–18; TEMP 36.2–36.8; O2SAT 95–98; BMI 25.9; BMI 28.0
[2023-06-18] MEDS: Levothyroxine 50 MCG Tablet PO (06:02)
[2023-06-18] MEDS: carBAMazepine 200 MG Tablet PO ×3 (06:02→22:22)
[2023-06-18] MEDS: oxyCODONE 5 MG Tablet PO ×2 (06:02→20:16)
[2023-06-18] MEDS: Acetaminophen 500 MG Tablet 1000 MG PO ×3 (06:02→22:22)
[2023-06-18 07:46] LABS: Absolute Lymphocyte Count 1.32 X10^3/uL (0.83-4.51); Absolute Neutrophil Count 6.1 X10^3/uL (2.0-7.7); Basophil# 0.05 X10^3/uL; Basophil% 0.6 % (0-1); Eosinophils% 4.6 % (0-5); Hematocrit 29.9 % (40-54); Hemoglobin 9.6 g/dL (13.0-16.5); Lymphocyte # 1.32 X10^3/ul (0.83-4.51); Lymphocyte % 15.3 % (19-41); Mean Corp Hgb Conc 32.1 g/dL (32-36); Mean Corpuscular Hgb 28.2 pg (27.0-32.0); Mean Corpuscular Volume 87.9 fL (80-94); Mean Platelet Vol. 9.2 fl (6.2-12.0); Monocyte# 0.73 X10^3/uL; Monocyte% 8.5 % (0-10); NRBC Flagged by Analyzer 0 % (0-5); Neutrophil # 6.09 X10^3/uL (2.7-7.7); Neutrophil % 70.7 % (47-70); Platelet Count 138 K/mm3 (150-450); RBC Distribution Width CV 16.1 % (11.6-14.6); RBC Distribution Width SD 52.1 fl (35.1-43.9); White Blood Count 8.6 K/mm3 (4.4-11.0)
[2023-06-18] MEDS: Potassium Chloride Oral Tablet 20 MEQ 60 MEQ PO (08:19)
[2023-06-18] MEDS: Ferrous Gluconate 324 MG Tablet PO (08:20)
[2023-06-18] MEDS: Aspirin 81 MG TAB.CHEW PO (08:20)
[2023-06-18 08:28] LABS: AST(SGOT) 12 U/L (15-37); Alanine Aminotransfer ALT/SGPT 18 U/L (16-61); Albumin, Serum 2.9 g/dL (3.2-5.0); Alkaline Phosphatase 77 U/L (45-117); Anion Gap 6 (5-15); BUN 20 mg/dL (7-18); Calcium,Total 9.2 mg/dL (8.5-10.1); Chloride 105 mmol/L (98-107); Creatinine, Serum 0.87 mg/dL (0.70-1.30); EST Glomerular Filtration Rate 89 mL/min (>60); Est Glom Filt Rate - Afr Amer 108 mL/min (>60); Estimated Creatinine Clearance 67.59 ml/min; Glucose 109 mg/dL (74-106); Magnesium 1.8 mg/dL (1.6-2.6); Phosphorus 3.2 mg/dL (2.5-4.9); Potassium 4.1 mmol/L (3.5-5.1); Protein, Total 5.9 g/dL (6.4-8.2); Sodium Level 136 mmol/L (136-145)
[2023-06-18] MEDS: Magnesium Chloride 64 MG Delay Rel.Tablet 128 MG PO ×2 (11:05→22:22)
[2023-06-18] MEDS: Senna/Docusate Sodium 1 Tablet 2 TABLET PO ×2 (11:06→22:21)
--- NOTE | 2023-06-18 11:19 | CON.PCM.OR_ITS ---
HPI Consult Data Date of Consult: 06/18/23 HPI Narrative Reason for Consultation: Right hip pain HPI Narrative: OLGA CREWS, is a 83 M with history of atrial fibrillation and chronic anticoagulation who presents today with right hip pain after a fall. Patient notes that he has a platform at the bedside to help his in and out of bed he stepped awkwardly off the platform and this with his foot falling onto his right hip. He also hit his face and had a laceration over his eye. He is contusion over his right eye. Patient notes he was unable to bear weight was brought to the emergency department was found to have intertrochanteric hip fracture. Patient reports pain is severe better with immobilization and pain medications as well as ice worse with movement. Denies any numbness and tingling distally. 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 Patient denies the use of cane or walker regularly. Patient does report he completes all ADLs except as daughter does not grocery shopping. Additionally, he reports pain in his right knee today. 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 Back problem Bleeding tendency Brainstem tumor Current use of exterminator termite anticoagulation Fall Hearing loss, left Hearing problem Heart attack Hemothorax on right History of hypothyroidism Hyperlipemia Hypertension Longstanding persistent atrial fibrillation Multiple fractures of ribs of right side Non-ST elevated myocardial infarction Trigeminal nerve disease Unstable angina Home Medications aspirin 81 mg chewable tablet 1 tab PO DAILY heart health 04/08/23 [History Last Taken 06/16/23] acetaminophen 500 mg tablet 1,000 mg (2 x 500 mg) PO Q8H PRN PRN fever or pain #50 tabs 04/21/23 [Rx Last Taken Unknown] apixaban 5 mg tablet 5 mg PO BID #60 tabs 04/21/23 [Rx Last Taken 06/16/23] atorvastatin 40 mg tablet (Lipitor) 40 mg PO QHS cholesterol #30 tabs 04/21/23 [Rx Last Taken 06/16/23] diltiazem HCl 240 mg capsule,extended release 24 hr 240 mg PO DAILY blood pressure #30 caps 04/21/23 [Rx Last Taken 06/16/23] ferrous gluconate 324 mg (37.5 mg iron) tablet 324 mg PO DAILY #90 tabs 04/21/23 [Rx Last Taken 06/16/23] levothyroxine 50 mcg tablet 50 mcg PO DAILY@0600 #30 tabs 04/21/23 [Rx Last Taken 06/17/23] magnesium oxide 400 mg PO BID supplement #60 tabs 04/21/23 [Rx Last Taken 06/16/23] sennosides 8.6 mg-docusate sodium 50 mg tablet (Stool Softener-Stimulant Laxative) 2 tab PO BID #120 tabs 04/21/23 [Rx Last Taken Unknown] tamsulosin 0.4 mg capsule 0.4 mg PO DAILY@1730 #30 caps 04/21/23 [Rx Last Taken 06/16/23] lisinopril 5 mg tablet 5 mg PO BID #60 tabs 05/03/23 [Rx Last Taken 06/16/23] hydralazine 25 mg tablet 25 mg PO BID #180 tabs 05/10/23 [Rx Last Taken 06/16/23] carbamazepine 200 mg tablet (Tegretol) 200 mg PO TID seziures #90 tabs 06/11/23 [Rx Last Taken 06/17/23] cranberry 500 mg capsule 1,000 mg PO DAILY 06/17/23 [History Last Taken 06/16/23] Allergy/AdvReac Type Severity Reaction Status Date / Time No Known Allergies Allergy Verified 06/17/23 07:40 Family History Other Heart disease Surgical History History of chest tube placement History of prostate surgery Hx of skin graft Hx of tonsillectomy Status post aorto-coronary artery bypass graft Social History Smoking Status: Former smoker how long ago did patient quit smokin02/08/1969 alcohol intake: never substance use type: does not use what type of physical activity do you participate in: none ROS ROS Narrative 14 point review of systems outside was mentioned in the HPI is negative Vital Signs Vital Signs Vital Signs: 06/17/23 12:00 06/17/23 12:39 06/17/23 13:00 Temperature 97.2 F L Temperature Source Pulse Rate 93 91 95 Pulse Strength Respiratory Rate 20 H 21 H 21 H Respiratory Effort Respiratory Depth Respiratory Pattern Blood Pressure 188/115 H 179/97 H 158/98 H Blood Pressure Mean 139 124 118 Blood Pressure Source Blood Pressure Position Blood Pressure Location Pulse Ox 93 93 95 Oxygen Delivery Method Room Air Oxygen Flow Rate (L/min) 06/17/23 14:18 06/17/23 16:02 06/17/23 16:31 Temperature Temperature Source Pulse Rate 102 H 82 Pulse Strength Respiratory Rate 14 Respiratory Effort Respiratory Depth Respiratory Pattern Blood Pressure 168/90 H 201/107 H Blood Pressure Mean 116 Blood Pressure Source Blood Pressure Position Blood Pressure Location Pulse Ox 94 Oxygen Delivery Method Room Air Room Air Oxygen Flow Rate (L/min) 06/17/23 17:32 06/17/23 14:58 06/17/23 15:53 Temperature 98.1 F 98.3 F Temperature Source Oral Oral Pulse Rate 82 111 H Pulse Strength Respiratory Rate 16 15 Respiratory Effort Respiratory Depth Respiratory Pattern Blood Pressure 201/107 H 184/95 H Blood Pressure Mean 138 124 Blood Pressure Source Monitor Monitor Blood Pressure Position Semi-Fowlers Semi-Fowlers Blood Pressure Location Left Arm Left Arm Pulse Ox 100 96 Oxygen Delivery Method Nasal Cannula Room Air Room Air Oxygen Flow Rate (L/min) 2 06/17/23 21:00 06/17/23 21:05 06/17/23 23:10 Temperature 97.1 F L Temperature Source Temporal Pulse Rate 103 H 95 Pulse Strength Respiratory Rate 18 Respiratory Effort Normal Non-Labored Respiratory Depth Normal Respiratory Pattern Normal Blood Pressure 108/55 L 100/53 L Blood Pressure Mean 72 Blood Pressure Source Monitor Blood Pressure Position Semi-Fowlers Blood Pressure Location Right Arm Pulse Ox 100 Oxygen Delivery Method Room Air Room Air Oxygen Flow Rate (L/min) 06/17/23 22:00 06/18/23 03:00 06/18/23 08:03 Temperature 97.2 F L Temperature Source Temporal Pulse Rate 93 Pulse Strength Strong (3+) Respiratory Rate 18 Respiratory Effort Respiratory Depth Respiratory Pattern Blood Pressure 118/57 L Blood Pressure Mean 77 Blood Pressure Source Monitor Blood Pressure Position Semi-Fowlers Blood Pressure Location Right Arm Pulse Ox 98 Oxygen Delivery Method Room Air Room Air Oxygen Flow Rate (L/min) 06/18/23 08:14 06/18/23 08:23 Temperature 98.2 F Temperature Source Oral Pulse Rate 89 84 Pulse Strength Respiratory Rate 18 Respiratory Effort Respiratory Depth Respiratory Pattern Blood Pressure 107/63 Blood Pressure Mean 77 Blood Pressure Source Monitor Blood Pressure Position Blood Pressure Location Pulse Ox 96 Oxygen Delivery Method Room Air Oxygen Flow Rate (L/min) Weight Weight: 180 lb 15.992 oz Body Mass Index (BMI) 25.9 Physical Exam Const alert and oriented x3 General Appearance: cooperative HEENT HEENT Narrative: Contusion of the right eye. Eyes PERRL Neck no JVD Resp normal respiratory effort Cardio Cardio Narrative: irregular pulse rate GI non-distended Extremity Extremity Narrative: Right lower extremity: Skin clean, dry, and intact. Posterior bruising and ecchymosis Limb is shortened and externally rotated Motor is intact dorsiflexion, EHL and plantar flexion. Sensation is intact to light touch saphenous, burak,l superficial peroneal, deep peroneal and tibial distributions. Calves are soft and supple. Tenderness palpation around the knee Skin Skin Narrative: Posterior thigh bruising and ecchymosis Neuro CN's II-XII intact bilaterally Psych mental status grossly normal Psych Narrative: Tearful Medical Records Data Attestation: I reviewed the patient's medical records Lab / Micro Data Attestation: I reviewed the patient's lab results. 06/18/23 07:10 06/18/23 07:10 Labs: Laboratory Results - last 24 hr 06/17/23 15:57: Vitamin D 25-Hydroxy 45.6 06/18/23 07:10: WBC 8.6, RBC 3.40 L, Hgb 9.6 L, Hct 29.9 L, MCV 87.9, MCH 28.2, MCHC 32.1, RDW Std Deviation 52.1 H, RDW Coeff of Maday 16.1 H, Plt Count 138 L, MPV 9.2, Immature Gran % (Auto) 0.300, Neut % (Auto) 70.7 H, Lymph % (Auto) 15.3 L, Cottle % (Auto) 8.5, Eos % (Auto) 4.6, Baso % (Auto) 0.6, Absolute Neuts (auto) 6.1, Absolute Lymphs (auto) 1.32, Nucleated RBC % 0, Sodium 136, Potassium 4.1, Chloride 105, Carbon Dioxide 25.0, Anion Gap 6, BUN 20 H, Creatinine 0.87, Estim Creat Clear Calc 67.59, Est GFR (MDRD) Af Amer 108, Est GFR (MDRD) Non-Af 89, BUN/Creatinine Ratio 23.0 H, Glucose 109 H, Calcium 9.2, Phosphorus 3.2, Magnesium 1.8, Total Bilirubin 0.60, AST 12 L, ALT 18, Alkaline Phosphatase 77, Total Protein 5.9 L, Albumin 2.9 L, Globulin 3.0, Albumin/Globulin Ratio 1.0 Imaging Radiology Impression Brain CT 06/17/23 14:47 IMPRESSION: 1. No acute intracranial abnormality. 2. Stable senescent changes. Electronically Signed: Constantino Euceda MD at 15:40 EDT , Right hip images full length femur and pelvis were reviewed as well as femur images consistent with minimally displaced right intertrochanteric hip fracture. Femur radiographs distally show degenerative changes of the knee. I do have some concern for a medial tibial plateau fracture. Cervical spine results were also reviewed showing multiple levels of degenerative disc disease, no acute fractures Assessment & Plan Assessment/Plan (1) Closed right hip fracture: PLAN: Natural history of the disease process was discussed the patient. Patient was alert and able to discuss appropriately. Treatment options including nonoperative and operative intervention were discussed the patient. This includes cephalomedullary nail as appropriate operative intervention. Ultimately, I did not recommend nonoperative intervention. Patient was healthy and active prior to the injury and was a poor candidate for nonoperative treatment. Cephalomedullary nail was recommended as appropriate treatment. Risk and benefits of the procedure were discussed the patient clean but not limi heath to blood loss, DVTs, PEs, neurovascular damage, infection, risk of anesthesia include loss of life. Additionally discussed nonunion, malunion hardware failure and hardware cut out as a potential complication of the surgery. In addition to this we discussed postoperative expectations and rehabi litation including the potential for chronic use of cane or walker and loss of ambulation. Patient demonstrated understanding. Did inform me that his daughter is his primary accounting manager assistant controller. I attempted to call her with no answer. A message was left with my cell phone number for her to contact me. Plan is to proceed with surgery tomorrow as Shelly was taken late Wednesday evening will need 48 hours to proceed with surgical intervention. Patient demonstrates understanding and is agreeable to this. Antibiotics were ordered on-call to the operating room. (2) Acute on chronic anemia: PLAN: Primary service to monitor will transfuse as necessary. (3) Atherosclerotic heart disease of [place] coronary artery without angina pectoris: PLAN: Patient was receiving echo today. Will await final surgical optimization. (4) Right knee pain: PLAN: Patient reports pain after the fall will obtain x-rays of the knee to ensure no concomitant injuries and further care.
[2023-06-18] MEDS: dilTIAZem CD 240 MG Capsule PO (11:22)
[2023-06-18] MEDS: hydrALAZINE 25 MG Tablet PO ×2 (11:23→22:27)
--- NOTE | 2023-06-18 11:47 | CASEMGMT ---
RAN LUNDBERG Assessment: Face to Face with pt for initial transition planning/care coordination assessment. RAN LUNDBERG introduced self and role at [facility], pt voices understanding and consents to assessment. Pt lying in bed in no distress, US tech in room at time of assessment finishing up, pt agreeable to assessment. Pt is A&O x4 and answers all questions appropriately at this time. Care providers, pharmacy, and demographics verified/updated. Admitting Dx: R hip fracture S/P mechanical fall PCP: Caitlyn Specialists: Denies Preferred Pharmacy: [facility] Insurance: Medicare - primary, [employer] - secondary Prescription Benefit: yes LNOK: Zabrina - , Joanne - daughter Living Arrangements: Pt lives with in a 1 story home with a ramp to enter. Pt states uses a wheelchair and pt assists at home. Pt stated I with ADLs, needs assistance with IADLs. Pt states daughter lives a mile away and assists parents with grocery shopping. Transportation: Pt states does not drive, daughter able to take to appointments and errands. DME: cane, walker, wheelchair, crutches, raised toilet seat, shower chair. HHC/SNF: Pt states he previously used HHC but can not remember agency name, Pt states he was previously in [facility] rehab. Discussed with pt therapy will evaluate after surgery and will make recommendations, pt verbalized understanding and is agreeable to these recommendations. Pt states no further concerns/needs. CM to follow. Advised pt to ask CM if any further question/concerns/needs arise, voices understanding. Pt Goal: Home Plan: TBD pending surgery and therapy evaluation. Poncho TONG CM
--- NOTE | 2023-06-18 11:48 | ECHOD_ITS ---
Reason For Study: Afib/Flutter Procedure This was a 2D Doppler, Color Flow transthoracic echocardiogram. Technically difficult study, patient scanned sitting upright due to right hip fracture. Exam performed portable in patient room. Left Ventricle Normal LV size. Moderate concentric left ventricular hypertrophy. The left ventricular ejection fraction is 55 %. Unable to assess diastolic dysfunction due to arrhythmia. Right Ventricle Normal right ventricle. Atria There is severe biatrial dilatation. Mitral Valve Mild diffuse mitral valve thickening. Trivial mitral valve insufficiency. Tricuspid Valve Mild tricuspid valve insufficiency. Normal pulmonary artery pressure. Aortic Valve Trisinus/trileaflet aortic valve. Aortic sclerosis, no stenosis. Pulmonic Valve The pulmonic valve is not well visualized. Trivial pulmonic valve insufficiency. Great Vessels Normal sized aortic root. Pericardium/Pleural No pericardial effusion. MMode/2D Measurements & Calculations LVIDd: 3.8 cm IVSd: 1.5 cm LA dimension: 4.6 cm LVIDs: 2.7 cm LVPWd: 1.2 cm FS: 28.5 % LAV(MOD-bp): 89.3 ml LVAd ap4: 23.7 cm2 SV(MOD-sp4): 34.3 ml LAV(MOD-bp) Indexed: 44.8 ml/m2 LVLd ap4: 6.9 cm LAV(MOD-sp2): 84.7 ml EDV(MOD-sp4): 67.0 ml LAV(MOD-sp4): 95.5 ml EDV(sp4-el): 69.1 ml LVAs ap4: 15.3 cm2 LVLs ap4: 6.0 cm ESV(MOD-sp4): 32.7 ml ESV(sp4-el): 32.8 ml EF(MOD-sp4): 51.1 % EF(sp4-el): 52.5 % SV(sp4-el): 36.3 ml LA A4 area: 27.1 cm2 RA A4 area: 25.5 cm2 Doppler Measurements & Calculations MV E max josé manuel: 69.0 cm/sec MV V2 max: 102.8 cm/sec Ao V2 max: 94.5 cm/sec MV max P.3 mmHg Ao max P.6 mmHg MV V2 mean: 37.5 cm/sec MV mean P.83 mmHg MV V2 VTI: 21.1 cm LV V1 max: 57.9 cm/sec TR max josé manuel: 196.6 cm/sec LV V1 max P.4 mmHg TR max P.5 mmHg ECHO/Echo Complete Interpretation Summary Moderate concentric left ventricular hypertrophy. The left ventricular ejection fraction is 55 %. Aortic sclerosis, no stenosis. There is severe biatrial dilatation. Mild tricuspid valve insufficiency. Ordering Physician: Lucille Colindres Referring Physician: Jolly Brady M.D. Performed By: Koffi Villarreal and Student
--- NOTE | 2023-06-18 12:50 | RAD_ITS ---
INDICATION: pain, fall -- EXAMINATION/TECHNIQUE: X-RAY - RIGHT XR Knee 3 Views 3 VIEWS COMPARISON: No relevant prior comparison study available FINDINGS: SOFT TISSUES: No soft tissue swelling or gas. No radiopaque foreign body. Vascular calcifications are present. BONES/JOINTS: Diffuse osteopenia, medial joint space narrowing and moderate osteophyte formation present. No fracture destructive bony process. RAD/Knee 3 Views IMPRESSION: 1. Osteopenia and mild osteoporotic changes. 2. No fracture malalignment or destructive bony process. Electronically Signed: Fredrick Diaz MD at 17:34 EDT ,
--- NOTE | 2023-06-18 13:58 | PN.HOSP_ITS ---
Reason for Visit Reason for Visit: R Hip pain s/p [facility] [place] fall Subjective Subjective Patient states his pain is much better controlled. Only having pain if he tries to move at all. Echocardiogram performed and no wall motion abnormalities. Plan is for surgery tomorrow morning. Objective Data Objective Data Vital Signs: Vital Signs Temp Pulse Resp BP Pulse Ox O2 Del Method O2 Flow Rate 98.2 F 77 18 130/65 H 96 Room Air 2 06/18/23 08:23 06/18/23 11:23 06/18/23 08:23 06/18/23 11:23 06/18/23 08:23 06/18/23 09:15 06/17/23 17:32 Oxygen Flow Rate (L/min) 2 Oxygen Delivery Method Room Air Weight: 82.1 kg Body Mass Index (BMI) 25.9 Intake & Output: Intake and Output for Last 24 Hours 06/16/23 06/17/23 06/18/23 23:59 23:59 23:59 Intake Total 600 / 900 350 / 350 Output Total 500 / 1150 800 / 800 Balance 100 / -250 -450 / -450 Lab / Micro Data 06/18/23 07:10 06/18/23 07:10 Labs: Laboratory Results - last 24 hr 06/17/23 15:57: Vitamin D 25-Hydroxy 45.6 06/18/23 07:10: WBC 8.6, RBC 3.40 L, Hgb 9.6 L, Hct 29.9 L, MCV 87.9, MCH 28.2, MCHC 32.1, RDW Std Deviation 52.1 H, RDW Coeff of Maday 16.1 H, Plt Count 138 L, MPV 9.2, Immature Gran % (Auto) 0.300, Neut % (Auto) 70.7 H, Lymph % (Auto) 15.3 L, [place] % (Auto) 8.5, Eos % (Auto) 4.6, Baso % (Auto) 0.6, Absolute Neuts (auto) 6.1, Absolute Lymphs (auto) 1.32, Nucleated RBC % 0, Sodium 136, Potassium 4.1, Chloride 105, Carbon Dioxide 25.0, Anion Gap 6, BUN 20 H, Creatinine 0.87, Estim Creat Clear Calc 67.59, Est GFR (MDRD) Af Amer 108, Est GFR (MDRD) Non-Af 89, BUN/Creatinine Ratio 23.0 H, Glucose 109 H, Calcium 9.2, Phosphorus 3.2, Magnesium 1.8, Total Bilirubin 0.60, AST 12 L, ALT 18, Alkaline Phosphatase 77, Total Protein 5.9 L, Albumin 2.9 L, Globulin 3.0, Albumin/Globulin Ratio 1.0 Radiography Diagnostic Testing: Radiology Impression Brain CT 06/17/23 14:47 IMPRESSION: 1. No acute intracranial abnormality. 2. Stable senescent changes. Electronically Signed: Constantino Euceda MD at 15:40 EDT , Echocardiogram 06/18/23 11:48 Interpretation Summary Moderate concentric left ventricular hypertrophy. The left ventricular ejection fraction is 55 %. Aortic sclerosis, no stenosis. There is severe biatrial dilatation. Mild tricuspid valve insufficiency. Ordering Physician: Lucille Colindres Referring Physician: Jolly Brady M.D. Performed By: Koffi Villarreal and Student Physical Exam Const alert, oriented x3, average body habitus, healthy appearing and well nourished; Negative for no apparent distress Constitutional Narrative: Elderly, white male, sitting up in bed watching television, appears comfortable, nontoxic, much more comfortable than yesterday General Appearance: cooperative HEENT normocephalic and moist oral mucous membranes; Negative for head/scalp atraumatic HEENT Narrative: Ecchymotic area over and surrounding right eye with no ocular abnormalities Resp normal respiratory effort, no retractions, no use of accessory muscles and clear to auscultation bilaterally Cardio regular rate, S1 normal heart sound, S2 normal heart sound, no murmurs, no rub, no gallops and no clicks; Negative for regular rhythm Cardio Narrative: Irregular irregular rhythm GI normal to inspection, nondistended, normoactive bowel sounds, soft to palpation and non-tender Extremity no clubbing, cyanosis or edema Extremity Narrative: Right lower extremity is shortened and externally rotated Neuro oriented x3 and no focal motor deficits Neuro Narrative: Unable to move right lower extremity due to pain Speech: speech normal Psych affect normal Psych Narrative: Appears comfortable, nontoxic Assessment & Plan Assessment/Plan (1) Closed right hip fracture: (2) Fall: (3) Closed head injury: (4) Laceration: (5) Hypokalemia: PLAN: Plan Right closed hip fracture -Imaging shows intertrochanteric fracture -Preop chest x-ray was unremarkable for any acute findings -Preop EKG with A-fib with rate control -Patient is not having any chest pain or shortness of breath -Echocardiogram shows a normal EF at 55% with moderate LVH and biatrial enlargement which would explain his chronic atrial fibrillation with no wall motion abnormality--> patient had multivessel 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 of 06/16/2023 -Bedrest for now and PT/OT consultation postoperatively -SCDs until postoperatively -Vitamin D level was greater than 30 -Will restart Eliquis for DVT prophylaxis postoperatively when okay with Dr. Sifuentes -Orthopedic surgery following and plan is for cephalomedullary nail tomorrow morning -Consult case management/social work as I do anticipate that he will likely need placement at discharge Closed head injury/right supraorbital laceration -Closed with Dermabond -CT x 2 of brain unremarkable -Repeat CT was pursued due to vomiting -Clinically stable -Continue monitor clinically for any change Hypokalemia -Resolved Mechanical fall -PT/OT to evaluate after surgery CAD/HTN/HPL -CABG x3 on 04/20/[address] Prasad in situ mammary end-to-side mid LAD, vein graft ascending aorta end-to-side obtuse marginal 1, vein graft ascending aorta end-to-side posterior descending (PDA) -Continue home aspirin -Continue home atorvastatin -Continue home hydralazine -Continue home diltiazem -Hold lisinopril for now and restart parts operatively -As needed hydralazine available for systolic pressure greater than 160 -Most recent echocardiogram from 04/16/2022 showed an EF of 65% with a mildly enlarged left atrium--> repeat echo done today postoperative after his bypass is relatively stable compared to previous Paroxysmal atrial fibrillation with RVR -Continue diltiazem -Eliquis on hold due to fracture and in preparation for surgery on Wednesday morning -Restart Eliquis postoperatively when okay with orthopedic surgery History of trigeminal neuralgia -Continue home carbamazepine BPH with obstruction -Continue home Flomax Hypothyroidism -Continue levothyroxine -TSH is within normal limits Chronic anemia -Hemoglobin appears to be stable -Apixaban on hold in preparation for surgery -Will follow blood counts while hospitalized -Expect some drop with fracture and pending surgery Chronic tremor -Slightly worse currently due to pain -Continue to monitor History of meningioma -No current issues DVT prophylaxis -SCDs for now -Will restart Eliquis when appropriate per orthopedic surgery -Anticipate a.m. of 06/20/2023 CODE STATUS -Full code is verified Charges/Coding Visit Charges Inpatient E&M: 58382 Subs Hosp L2
[2023-06-18] MEDS: Tamsulosin HCl 0.4 MG Capsule PO (16:03)
[2023-06-18] MEDS: Atorvastatin Calcium 40 MG Tablet PO (22:21)
[2023-06-19] VITALS (22 sets, daily range): BP systolic 118–225; BP diastolic 56–133; PULSE 85–139; RESP 15–18; TEMP 36.3–37.2; O2SAT 92–100; BMI 28.1
[2023-06-19 07:05] LABS: Hematocrit 30.4 % (40-54); Hemoglobin 9.6 g/dL (13.0-16.5); Mean Corp Hgb Conc 31.6 g/dL (32-36); Mean Corpuscular Hgb 27.8 pg (27.0-32.0); Mean Corpuscular Volume 88.1 fL (80-94); Platelet Count 142 K/mm3 (150-450); RBC Distribution Width CV 16.1 % (11.6-14.6); RBC Distribution Width SD 52.5 fl (35.1-43.9); Red Blood Count 3.45 M/mm3 (4.6-6.2); White Blood Count 7.8 K/mm3 (4.4-11.0)
[2023-06-19 07:11] LABS: International Normalized Ratio 1.4; Prothrombin Time (Protime)PT. 16.8 SECONDS (11.7-14.9)
[2023-06-19 07:12] LABS: Partial Thromboplast Time 37.4 Seconds (24.1-36.2)
[2023-06-19 07:23] LABS: Anion Gap 4 (5-15); BUN 15 mg/dL (7-18); BUN/Creat Ratio 25.4 RATIO (10-20); Calcium,Total 9.5 mg/dL (8.5-10.1); Chloride 106 mmol/L (98-107); Creatinine, Serum 0.59 mg/dL (0.70-1.30); EST Glomerular Filtration Rate 139 mL/min (>60); Est Glom Filt Rate - Afr Amer 169 mL/min (>60); Estimated Creatinine Clearance 79.95 ml/min; Glucose 112 mg/dL (74-106); Potassium 4.2 mmol/L (3.5-5.1); Sodium Level 136 mmol/L (136-145)
[2023-06-19] MEDS: dilTIAZem CD 240 MG Capsule PO (07:49)
--- NOTE | 2023-06-19 08:00 | RAD_ITS ---
STUDY: X-RAY - PELVIS AND RIGHT HIP REASON FOR EXAM: Male, 83 years old. ORIF for hip fracture TECHNIQUE: 10 limited intraoperative views of the pelvis and hip. COMPARISON: None. FINDINGS: 10 Limited intraoperative C-arm films were performed as the patient is undergoing open reduction internal fixation of an intertrochanteric fracture of the right femur. No intraoperative complications noted RAD/Hip Min 2 Views (Portable) IMPRESSION: No intraoperative complications noted during open reduction internal fixation of an intertrochanteric fracture of the right femur. Electronically Signed: Ignacio Natarajan MD at 13:38 EDT ,
[2023-06-19] MEDS: Cefazolin 2 GM in 0.9% Normal Saline (100mL Bag) 100 ML IV (08:16)
--- NOTE | 2023-06-19 09:01 | OP.PCM_ITS ---
Report of Operation Date of Procedure: 06/19/23 Pre-Operative Diagnosis: Right intertrochanteric hip fracture Post-Operative Diagnosis: Right intertrochanteric hip fracture Surgery/Procedure Performed:: Right hip cephalomedullary nail Description of Surgical Findings:: Stable reduction Surgeon: Ignacio Sifuentes assembly inspector helper: Vasquez Starr Type of Anesthesia: General Anesthesiologist: Raz Putnam Special Medications: Ancef Estimated Blood Loss (mL): 200 Fluids Replaced: 300 Description of Procedure: Components used: 1. Di[employer] Nephew InterTAN nail short 11.5mm nail 2. [employer]hew InterTAN lag screw 95mm 3. Dias [employer] Nephew 32.5 millimeter interlocking screw Procedure: On the date of the procedure the patient's Right hip was marked in the preoperative area and patient was taken back to the operating room. Anesthetic was administered and patient was transferred to the table were all bony prominence identified well-padded and the ipsilateral arm was placed across the chest. Patient was then translated down to the perineal post and the operative leg was placed in the boot while the nonoperative leg was lowered and secured. The operative leg was placed in traction and internal rotation and live fluoro scopy was used to verify adequate reduction. The operative leg was then prepped in a sterile fashion with chlorhexidine while the surgeon scrubbed. Upon reentering the room the operative extremity was draped in the standard orthopedic fashion. Skin incision was marked and a timeout was called. Everyone agreed upon the side, the site, the procedure be performed, patient's identity, and antibiotics given. Skin incision was made and the position of the entry guidepin was verified using live fluoroscopy. Once we were satisfied with our position the pin was advanced in the soft tissue protector was placed over the pin. The entry reamer was then advanced into the proximal portion of the femur. A Di[employer] Nephew short InterTAN 11.5 mm 125 hip nail was selected. The nail did not initially fit so we did place a ball-tipped guidewire and reamed to 13 mm. This allowed proper fit of the nail distally. The nail was then attached to the inspector and sorter and inserted into the intramedullary canal. The appropriate depth was verified and the skin incision for the lag screw was made. The lag screw guidepin was then placed under live fluoroscopy and when a satisfactory position was obtained the length of the screw was measured and the standard technique to drill for the lag screws was performed. The anti-rotation bar was used. At this time a 95mm lag screw was selected with its corresponding compression screw. The lag screw was then passed and traction was left off the leg. The compression screw was then passed and the fracture was compressed. The final position of the lag screw was verified under fluoroscopy. Attention was then turned to the distal portion of the nail and a distal guide technique was used to locate the distal interlocking screw and a 32.5mm distal interlocking screw was placed using this technique. Live fluoroscopy was used to verify the position of the interlocking screw and the final position of the hip components. Once we were satisfied with our positioning the wounds were copiously irrigated out with normal saline skin was closed with 2-0 Vicryl and martina for final skin closure. A sterile dressing was placed with Xeroform. Patient was then awakened by anesthesia transferred from the fracture table back to their hospital bed and transferred to the PACU for recovery. Postoperative plan: Patient will be weight-bear as tolerated. Resume Eliquis tomorrow morning for DVT prophylaxis with knee-high stockings. Follow up in the office in 2 weeks. Physician law office assistant was vital throughout the procedure. He was vital in helping position the patient. He was vital nothing obtained reduction of the fracture. He was vital in helping retract all tissues. He was vital to maintain reduction during the procedure. Following his vital in closure under my direct supervision. Complications none Admit VTE Documentation VTE Present on Admission: No VTE Mechan Device Prophylaxis: SCD's and Thigh High AUGUSTA Hose VTE Pharm Prophylaxis ordered?: Yes
--- NOTE | 2023-06-19 13:24 | PCM.PN.HOSP ---
Reason for Visit Reason for Visit: Mechanical fall with resultant right hip pain Subjective Subjective Patient seen postoperatively. Slight confusion but does complain that he is cold. I did get him some warm blankets. His right eye is matted so we cleaned this up for him as well. He denied any other needs at this time. Objective Data Objective Data Vital Signs: Vital Signs Temp Pulse Resp BP Pulse Ox O2 Del Method O2 Flow Rate 98.1 F 100 16 149/67 H 100 Room Air 2 06/19/23 11:06/19/23 11:17 06/19/23 11:17 06/19/23 11:17 06/19/23 11:17 06/19/23 11:17 06/19/23 10:15 Oxygen Flow Rate (L/min) 2 Oxygen Delivery Method Room Air Weight: 89 kg Body Mass Index (BMI) 28.1 Intake & Output: Intake and Output for Last 24 Hours 06/17/23 06/18/23 06/19/23 23:59 23:59 23:59 Intake Total 600 / 900 350 / 550 310 / 310 Output Total 500 / 1150 1550 / 2300 1150 / 1150 Balance 100 / -250 -1200 / -1750 -840 / -840 Lab / Micro Data 06/19/23 06:30 06/19/23 06:30 Labs: Laboratory Results - last 24 hr 06/19/23 06:30: WBC 7.8, RBC 3.45 L, Hgb 9.6 L, Hct 30.4 L, MCV 88.1, MCH 27.8, MCHC 31.6 L, RDW Std Deviation 52.5 H, RDW Coeff of Maday 16.1 H, Plt Count 142 L, MPV 10.0, PT 16.8 H, INR 1.4, APTT 37.4 H, Sodium 136, Potassium 4.2, Chloride 106, Carbon Dioxide 26.0, Anion Gap 4 L, BUN 15, Creatinine 0.59 L, Estim Creat Clear Calc 79.95, Est GFR (MDRD) Af Amer 169, Est GFR (MDRD) Non-Af 139, BUN/Creatinine Ratio 25.4 H, Glucose 112 H, Calcium 9.5, Blood Type B POSITIVE, Antibody Screen NEGATIVE Radiography Diagnostic Testing: Radiology Impression Knee X-Ray 06/18/23 12:50 IMPRESSION: 1. Osteopenia and mild osteoporotic changes. 2. No fracture malalignment or destructive bony process. Electronically Signed: Fredrick Diaz MD at 17:34 EDT , Physical Exam Const alert, average body habitus and well nourished; Negative for no apparent distress Constitutional Narrative: Elderly, white male, lying in bed, has just returned from surgery, slightly confused but cooperative, oriented to self only at this time Orientation / Consciousness: confused HEENT normocephalic and moist oral mucous membranes; Negative for head/scalp atraumatic HEENT Narrative: Ecchymosis around right eye has extended and eye is slightly swollen but vision per his report is stable, eye is slightly matted Resp normal respiratory effort, no retractions, no use of accessory muscles and clear to auscultation bilaterally Cardio regular rate, S1 normal heart sound, S2 normal heart sound, no murmurs, no rub, no gallops and no clicks; Negative for regular rhythm Cardio Narrative: Irregular irregular rhythm GI normal to inspection, nondistended, normoactive bowel sounds, soft to palpation and non-tender Extremity no clubbing, cyanosis or edema Extremity Narrative: Postoperative dressing in place with a small area of bloody drainage, no significant ecchymosis noted ice in place Neuro no focal motor deficits Sensorium / Orientation: awake, alert and oriented to person; Negative for oriented to place or oriented to time Speech: speech normal Psych Psych Narrative: Affect is flat but appropriate for current situation Assessment & Plan Assessment/Plan (1) Closed right hip fracture: (2) Fall: (3) Closed head injury: (4) Laceration: (5) Hypokalemia: PLAN: Plan Right closed hip fracture -Imaging showed intertrochanteric fracture -Postop day 0 intramedullary nail done with Dr. Sifuentes -Samaria Brvao--> last dose was p.m. of 06/16/2023--> okay to resume tomorrow morning per orthopedic surgery documentation -PT/OT to follow -Weightbearing as tolerated -Knee-high AUGUSTA hose recommended -Continue SCDs for now -Vitamin D level was greater than 30 -Outpatient follow-up with Dr. Sifuentes in 2 weeks -Consult case management/social work as I do anticipate that he will likely need placement at discharge Closed head injury/right supraorbital laceration -Closed with Dermabond -CT x 2 of brain unremarkable -Remains clinically stable -Continue monitor clinically for any change Mechanical fall -PT/OT consultation CAD/HTN/HPL -CABG x3 on 04/20/[address] Burnett-[place] in situ mammary end-to-side mid LAD, vein graft ascending aorta end-to-side obtuse marginal 1, vein graft ascending aorta end-to-side posterior descending (PDA) -Continue home aspirin -Continue home atorvastatin -Continue home hydralazine -Continue home diltiazem -Restart lisinopril tomorrow as blood pressure allows -As needed hydralazine available for systolic pressure greater than 160 -Most recent echocardiogram from 04/16/2022 showed an EF of 65% with a mildly enlarged left atrium--> repeat echo done today postoperative after his bypass is relatively stable compared to previous Paroxysmal atrial fibrillation with RVR -Continue diltiazem -Hold Eliquis and restart tomorrow morning per orthopedic surgery documentation History of trigeminal neuralgia -Continue home carbamazepine BPH with obstruction -Continue home Flomax Hypothyroidism -Continue levothyroxine -TSH is within normal limits Chronic anemia -Hemoglobin appears to be stable -Apixaban on hold till tomorrow morning -Will follow blood counts while hospitalized -Expect some drop with fracture and pending surgery -Repeat CBC in a.m. Chronic tremor -Slightly worse currently due to pain -Continue to monitor History of meningioma -No current issues DVT prophylaxis -SCDs for now -Will restart Eliquis tomorrow morning CODE STATUS -Full code is verified Charges/Coding Visit Charges Inpatient E&M: 33343 Subs Hosp L2
--- NOTE | 2023-06-19 13:51 | CPS ---
attempted to do SMI and pep with Pt. Pt sleeping so. SMI and Pep held
[2023-06-19] MEDS: Cefazolin 1 GM/50 ML BAG IV (16:24)
[2023-06-19] MEDS: Ensure Surgery 237 ML LIQUID PO (16:38)
[2023-06-19] MEDS: Tamsulosin HCl 0.4 MG Capsule PO (16:38)
[2023-06-19] MEDS: Morphine 2 MG/ML Syringe IV (17:24)
[2023-06-19] MEDS: hydrALAZINE 25 MG Tablet PO (20:59)
[2023-06-19] MEDS: carBAMazepine 200 MG Tablet PO (21:02)
[2023-06-19] MEDS: Acetaminophen 500 MG Tablet 1000 MG PO (21:03)
[2023-06-19] MEDS: Atorvastatin Calcium 40 MG Tablet PO (21:04)
[2023-06-19] MEDS: Magnesium Chloride 64 MG Delay Rel.Tablet 128 MG PO (21:14)
--- NOTE | 2023-06-19 22:33 | NURSING ---
2030; pt noted to be confused. pt pulled out left hand iv and pulled off all telemmetry leads.
[2023-06-20] VITALS (11 sets, daily range): BP systolic 114–125; BP diastolic 58–72; PULSE 89–130; RESP 15–18; TEMP 36.4–37.3; O2SAT 94–99; BMI 25.9
[2023-06-20] MEDS: Cefazolin 1 GM/50 ML BAG IV (00:27)
--- NOTE | 2023-06-20 00:37 | NURSING ---
pt refuses to keep digital artist on. tele pads have been reapplied x 2 and pt continues to rip them off.
[2023-06-20] MEDS: Acetaminophen 500 MG Tablet 1000 MG PO ×3 (05:38→20:50)
[2023-06-20] MEDS: Levothyroxine 50 MCG Tablet PO (05:38)
[2023-06-20] MEDS: carBAMazepine 200 MG Tablet PO ×3 (05:38→20:49)
[2023-06-20 05:50] LABS: Hematocrit 24.9 % (40-54); Hemoglobin 7.9 g/dL (13.0-16.5); Mean Corp Hgb Conc 31.7 g/dL (32-36); Mean Corpuscular Hgb 28.2 pg (27.0-32.0); Mean Corpuscular Volume 88.9 fL (80-94); Mean Platelet Vol. 9.7 fl (6.2-12.0); Platelet Count 110 K/mm3 (150-450); RBC Distribution Width CV 15.9 % (11.6-14.6); RBC Distribution Width SD 51.8 fl (35.1-43.9); White Blood Count 8.1 K/mm3 (4.4-11.0)
[2023-06-20] MEDS: oxyCODONE 5 MG Tablet PO (05:54)
[2023-06-20 06:12] LABS: Anion Gap 5 (5-15); BUN 22 mg/dL (7-18); BUN/Creat Ratio 41.4 RATIO (10-20); Calcium,Total 9.1 mg/dL (8.5-10.1); Chloride 104 mmol/L (98-107); Creatinine, Serum 0.53 mg/dL (0.70-1.30); EST Glomerular Filtration Rate 158 mL/min (>60); Est Glom Filt Rate - Afr Amer 191 mL/min (>60); Estimated Creatinine Clearance 73.51 ml/min; Glucose 116 mg/dL (74-106); Potassium 4.1 mmol/L (3.5-5.1); Sodium Level 134 mmol/L (136-145)
[2023-06-20] MEDS: dilTIAZem CD 240 MG Capsule PO (09:03)
[2023-06-20] MEDS: Polyethylene Glycol 3350 17 GM PACKET PO (09:05)
[2023-06-20] MEDS: APIXABAN 5 MG TABLET PO ×2 (09:05→20:59)
[2023-06-20] MEDS: Senna/Docusate Sodium 1 Tablet 2 TABLET PO ×2 (09:05→20:49)
[2023-06-20] MEDS: Ferrous Gluconate 324 MG Tablet PO (09:05)
[2023-06-20] MEDS: Magnesium Chloride 64 MG Delay Rel.Tablet 128 MG PO ×2 (09:06→20:49)
[2023-06-20] MEDS: Aspirin 81 MG TAB.CHEW PO (09:06)
--- NOTE | 2023-06-20 09:13 | PCM.PN.ORT ---
Subjective Subjective Patient is doing well this morning. He did have some confusion after anesthesia yesterday. His cognitive function has improved throughout the wound. He is alert and oriented this morning. Objective Data Objective Data Vital Signs: Vital Signs Temp Pulse Resp BP Pulse Ox O2 Del Method O2 Flow Rate 99.1 F 98 15 125/64 H 94 Room Air 2 06/20/23 02:39 06/20/23 07:02 06/20/23 07:02 06/20/23 02:39 06/20/23 07:02 06/20/23 07:02 06/20/23 02:39 Oxygen Flow Rate (L/min) 2 Oxygen Delivery Method Room Air Weight: 181 lb 10.574 oz Body Mass Index (BMI) 25.9 Intake & Output: Intake and Output for Last 24 Hours 06/18/23 06/19/23 06/20/23 23:59 23:59 23:59 Intake Total 350 / 550 710 / 1210 1150 / 1150 Output Total 1550 / 2300 2450 / 2800 550 / 550 Balance -1200 / -1750 -1740 / -1590 600 / 600 Lab / Micro Data Attestation: I reviewed the patient's lab results. 06/20/23 05:31 06/20/23 05:31 Labs: Laboratory Results - last 24 hr 06/20/23 05:31: WBC 8.1, RBC 2.80 L, Hgb 7.9 L, Hct 24.9 L, MCV 88.9, MCH 28.2, MCHC 31.7 L, RDW Std Deviation 51.8 H, RDW Coeff of Maday 15.9 H, Plt Count 110 L, MPV 9.7, Sodium 134 L, Potassium 4.1, Chloride 104, Carbon Dioxide 25.0, Anion Gap 5, BUN 22 H, Creatinine 0.53 L, Estim Creat Clear Calc 73.51, Est GFR (MDRD) Af Amer 191, Est GFR (MDRD) Non-Af 158, BUN/Creatinine Ratio 41.4 H, Glucose 116 H, Calcium 9.1 Radiography Diagnostic Testing: Radiology Impression Hip X-Ray 06/19/23 08:00 IMPRESSION: No intraoperative complications noted during open reduction internal fixation of an intertrochanteric fracture of the right femur. Electronically Signed: Ignacio Natarajan MD at 13:38 EDT , Physical Exam Narrative Right lower extremity: Distal dressing is clean dry and intact. Proximal dressing does have some saturation. Sensations intact to light touch saphenous, sural, superficial peroneal, deep peroneal, and tibial distributions Motors intact EHL, DF, PF calves are soft and supple Const alert and oriented x3 Constitutional Narrative: Tearful Assessment & Plan Assessment/Plan (1) Closed right hip fracture: PLAN: Postop day 1 cephalomedullary nail right hip 1. DVT prophylaxis: Patient will resume Eliquis today 2. Pain control: Per primary service. Recommend minimizing use of narcotics Tylenol. Patient's kidney function appropriate nonsteroidal anti-inflammatory such as Mobic. 3. Physical therapy: Weightbearing as tolerated, activity as tolerated 4. Dressing: Proximal dressing wound changes 3 sides, contact with blood. Currently stable. Remove dressing in place after day 5 clean and dry okay to leave open to air. Currently patient can shower current dressings. 5. Anemia: Acute on chronic. Recent changes associated with hip fracture internal bleeding and perioperative blood loss. Vitals are stable at this time. 6. Disposition: Patient is doing well today. Will recommend follow-up with orthopedics in 2 weeks in the office with x-ray and removal of martina. Okay to remove dressing on postop day 5 and leave open to air clean and dry. Continue appropriate dressing changes if drainage continues. Contact orthopedics at drainage continues. Patient will likely need jail upon discharge due to nature of injury and surgical intervention. Please contact orthopedics if any further questions or concerns arise. [facility] Office: (2) Right knee pain: PLAN: X-rays reviewed. No acute fractures or bony lesions. No degenerative changes. As tolerated.
[2023-06-20] MEDS: Furosemide 40 MG/4 ML Vial IV (09:15)
--- NOTE | 2023-06-20 10:40 | PCM.PN.HOSP ---
Reason for Visit Reason for Visit: Right hip pain after mechanical fall Subjective Subjective Patient denies any complaints at this time. He does state that the ice pack was burning earlier so they took it off. Reports he is currently comfortable. He did indicate they got him up to stand him and he had a hard time with that. We did discuss that he would need to go to skilled facility at discharge and he understands. Did have some confusion last night and it was noted yesterday when I saw him as per my note. I suspect this is related to anesthesia. Family has reported that he is sensitive to this and he indicated preoperatively that he had some sensitivities to medications as well. Objective Data Objective Data Vital Signs: Vital Signs Temp Pulse Resp BP Pulse Ox O2 Del Method O2 Flow Rate 99.1 F 130 H 15 114/72 94 Room Air 2 06/20/23 02:39 06/20/23 09:04 06/20/23 07:02 06/20/23 09:04 06/20/23 07:02 06/20/23 07:02 06/20/23 02:39 Oxygen Flow Rate (L/min) 2 Oxygen Delivery Method Room Air Weight: 82.4 kg Body Mass Index (BMI) 25.9 Intake & Output: Intake and Output for Last 24 Hours 06/18/23 06/19/23 06/20/23 23:59 23:59 23:59 Intake Total 350 / 550 710 / 1210 1150 / 1150 Output Total 1550 / 2300 2450 / 2800 550 / 550 Balance -1200 / -1750 -1740 / -1590 600 / 600 Lab / Micro Data 06/20/23 05:31 06/20/23 05:31 Labs: Laboratory Results - last 24 hr 06/20/23 05:31: WBC 8.1, RBC 2.80 L, Hgb 7.9 L, Hct 24.9 L, MCV 88.9, MCH 28.2, MCHC 31.7 L, RDW Std Deviation 51.8 H, RDW Coeff of Maday 15.9 H, Plt Count 110 L, MPV 9.7, Sodium 134 L, Potassium 4.1, Chloride 104, Carbon Dioxide 25.0, Anion Gap 5, BUN 22 H, Creatinine 0.53 L, Estim Creat Clear Calc 73.51, Est GFR (MDRD) Af Amer 191, Est GFR (MDRD) Non-Af 158, BUN/Creatinine Ratio 41.4 H, Glucose 116 H, Calcium 9.1 Radiography Diagnostic Testing: Radiology Impression Hip X-Ray 06/19/23 08:00 IMPRESSION: No intraoperative complications noted during open reduction internal fixation of an intertrochanteric fracture of the right femur. Electronically Signed: Ignacio Natarajan MD at 13:38 EDT Reading Location ID and State: [facility] / [place] , Service support , Physical Exam Const alert, oriented x3, average body habitus, healthy appearing and well nourished; Negative for no apparent distress Constitutional Narrative: Elderly, white male, sitting up in bed, appears comfortable, alert and oriented x 3 but still some mild confusion noted as compared to baseline, appears comfortable and nontoxic at this time HEENT normocephalic and moist oral mucous membranes; Negative for head/scalp atraumatic HEENT Narrative: Mallampati is 2, no thrush, still significant ecchymosis surrounding right eye but less swelling noted today, vision is stable, laceration above the eye that was glued on emergency department appears to be healing Resp normal respiratory effort, no retractions, no use of accessory muscles and clear to auscultation bilaterally Cardio regular rate, S1 normal heart sound, S2 normal heart sound, no murmurs, no rub, no gallops and no clicks; Negative for regular rhythm Cardio Narrative: Irregular irregular rhythm GI normal to inspection, nondistended, normoactive bowel sounds, soft to palpation and non-tender Extremity no clubbing, cyanosis or edema Extremity Narrative: Postoperative dressing is in place and is clean dry and intact, no significant ecchymosis surrounding, mild tenderness Neuro oriented x3, moves all extremities and no focal motor deficits Neuro Narrative: Unable to move right lower extremity due to pain Sensorium / Orientation: awake, alert and oriented to person; Negative for oriented to place or oriented to time Speech: speech normal Psych affect normal Psych Narrative: Affect is flat but appropriate for current situation Assessment & Plan Assessment/Plan (1) Closed right hip fracture: (2) Fall: (3) Closed head injury: (4) Laceration: (5) Hypokalemia: PLAN: Plan Closed intertrochanteric fracture of the right hip -Imaging showed intertrochanteric fracture -Postop day 1 intramedullary nail done with Dr. Sifuentes -Continue scheduled Tylenol and as needed oxycodone -Discontinue IV pain medication -Continue bowel regimen with scheduled and as needed stool softeners available -Restart Eliquis today -PT/OT to follow -Weightbearing as tolerated -Knee-high AUGUSTA hose recommended -Vitamin D level was greater than 30 -Outpatient follow-up with Dr. Sifuentes in 2 weeks -Consult case management/social work as I do anticipate that he will likely need placement at discharge -Should be able to discharge once deemed medically stable-should not need pre-CERT Acute on chronic anemia -Baseline hemoglobin appears to be between 8 and 10 -7.9 this morning -40 mg of Lasix given -Repeat hemoglobin at noon -Anticoagulations restarted today per orthopedic surgery -Will repeat a.m.--> suspect this is related to volume status from intraoperative fluids and not active bleeding as there does not seem to be any identifiable bleeding Closed head injury/right supraorbital laceration -Closed with Dermabond -CT x 2 of brain unremarkable -Remains clinically stable -Continue monitor clinically for any change Mechanical fall -PT/OT consultation CAD/HTN/HPL -CABG x3 on 04/20/[address] Burnett-YI in situ mammary end-to-side mid LAD, vein graft ascending aorta end-to-side obtuse marginal 1, vein graft ascending aorta end-to-side posterior descending (PDA) -Continue home aspirin -Continue home atorvastatin -Continue home hydralazine -Continue home diltiazem -Restart lisinopril tomorrow as blood pressure allows -As needed hydralazine available for systolic pressure greater than 160 -Most recent echocardiogram from 04/16/2022 showed an EF of 65% with a mildly enlarged left atrium--> repeat echo done today postoperative after his bypass is relatively stable compared to previous Paroxysmal atrial fibrillation with RVR -Continue diltiazem -Eliquis restarted today History of trigeminal neuralgia -Continue home carbamazepine BPH with obstruction -Continue home Flomax Hypothyroidism -Continue levothyroxine -TSH is within normal limits Chronic tremor -Slightly worse currently due to pain -Continue to monitor History of meningioma -No current issues DVT prophylaxis -Continue home Eliquis CODE STATUS -Full code is verified Charges/Coding Visit Charges Inpatient E&M: 84291 Subs Hosp L2
[2023-06-20] MEDS: Tamsulosin HCl 0.4 MG Capsule PO (17:27)
[2023-06-20] MEDS: Ensure Surgery 237 ML LIQUID PO (17:27)
[2023-06-20] MEDS: Atorvastatin Calcium 40 MG Tablet PO (20:50)
[2023-06-21] VITALS (8 sets, daily range): BP systolic 135–168; BP diastolic 60–87; PULSE 81–99; RESP 15–18; TEMP 36.6–36.9; O2SAT 96–100; BMI 25.9
[2023-06-21] MEDS: carBAMazepine 200 MG Tablet PO ×3 (06:04→21:06)
[2023-06-21] MEDS: Levothyroxine 50 MCG Tablet PO (06:04)
[2023-06-21] MEDS: Acetaminophen 500 MG Tablet 1000 MG PO ×3 (06:04→21:05)
[2023-06-21 06:36] LABS: Hematocrit 22.8 % (40-54); Hemoglobin 7.3 g/dL (13.0-16.5); Mean Corpuscular Hgb 28.2 pg (27.0-32.0); Mean Platelet Vol. 10.2 fl (6.2-12.0); Platelet Count 133 K/mm3 (150-450); RBC Distribution Width CV 15.9 % (11.6-14.6); RBC Distribution Width SD 51.5 fl (35.1-43.9); Red Blood Count 2.59 M/mm3 (4.6-6.2); White Blood Count 7.2 K/mm3 (4.4-11.0)
[2023-06-21 07:08] LABS: Anion Gap 3 (5-15); BUN 26 mg/dL (7-18); BUN/Creat Ratio 45.9 RATIO (10-20); Calcium,Total 9.2 mg/dL (8.5-10.1); Chloride 102 mmol/L (98-107); Creatinine, Serum 0.57 mg/dL (0.70-1.30); EST Glomerular Filtration Rate 147 mL/min (>60); Est Glom Filt Rate - Afr Amer 177 mL/min (>60); Estimated Creatinine Clearance 73.51 ml/min; Glucose 116 mg/dL (74-106); Sodium Level 132 mmol/L (136-145)
[2023-06-21] MEDS: Senna/Docusate Sodium 1 Tablet 2 TABLET PO ×2 (08:59→21:05)
[2023-06-21] MEDS: Ferrous Gluconate 324 MG Tablet PO (08:59)
[2023-06-21] MEDS: hydrALAZINE 25 MG Tablet PO (08:59)
[2023-06-21] MEDS: Magnesium Chloride 64 MG Delay Rel.Tablet 128 MG PO ×2 (08:59→21:06)
[2023-06-21] MEDS: dilTIAZem CD 240 MG Capsule PO (08:59)
[2023-06-21] MEDS: Polyethylene Glycol 3350 17 GM PACKET PO (09:00)
[2023-06-21] MEDS: Aspirin 81 MG TAB.CHEW PO (09:00)
[2023-06-21] MEDS: APIXABAN 5 MG TABLET PO ×2 (09:00→21:06)
[2023-06-21] MEDS: Ensure Surgery 237 ML LIQUID PO ×2 (09:05→17:38)
--- NOTE | 2023-06-21 09:39 | CASEMGMT ---
Addendum entered by Dayan Beyer 06/21/23 10:19: A list of SNF providers including quality and resource use data and consistent with the patient?s preferred geographic region, medical needs, and insurance network were provided from the [facility] Guide, however, pt already had a facility in mind and chose [facility]. [facility] accepted pt. Pt advised. BALDEMAR Jama Original Note: Social Work- SW met with pt to discuss list of facilities for pt choice. Pt would like [facility] as FOC and was uncertain about any other choices. SW will start referral to [facility]. BALDEMAR Jama
--- NOTE | 2023-06-21 13:31 | CASEMGMT ---
Social Work Pt's daughter Joanne here, asked to speak w/SW. SW met w/pt and daughter, answered questions in regard to pt going to SNF today. SW did let them know that the plan is for pt to go to [place] today. SW will let daughter know once everything is set up. ROSA Ibarra
--- NOTE | 2023-06-21 16:13 | PCM.TXEXTCAR ---
Diet Diet Order/Speech Therapy: 06/20/23 14:32 Diet: Regular - General Routine Orders/Code Status Enema Type: Fleetz Enema Frequency: Daily PRN Suppository Type: Dulcolax 10mg Suppository Frequency: Daily PRN O2 Frequency: PRN Keep PO Greater than or Equal to (%): 90 Wound(s) X2 ON RT ELBOW: Wound Type: Abrasion X2 ABOVE RT EYE: Wound Type: Abrasion RIGHT HIP: Wound Type: Surgical Incision Therapies Weight Bearing: Weight bearing as tolerated Physical Therapy: Eval and Treat Occupational Therapy: Eval and Treat Problem/Diagnosis (1) Closed right hip fracture: Status: Acute Code(s): S72.001A - Fracture of unspecified part of neck of right femur, initial encounter for closed fracture (2) Fall: Status: Acute Code(s): W19.XXXA - Unspecified fall, initial encounter (3) Closed head injury: Status: Acute Code(s): S09.90XA - Unspecified injury of head, initial encounter (4) Laceration: Status: Acute (5) Hypokalemia: Status: Acute Code(s): E87.6 - Hypokalemia Allergies/Procedures Done in Hospital Allergies No Known Allergies Allergy (Verified 06/17/23 07:40) Type of Care/Length of Stay Estimated LOS: Convalescent Care Less Than 30 days Type of Care Needed: Skilled Rehab Potential: Fair Prognosis: Fair Additional Orders/Day of Discharge Day of Discharge: 06/21/23 Discharge Plan Admission Admit Date/Time: 06/17/23 11:16 Primary Reason for Your Visit: right hip fracture Attending Provider: Katerina Moreno Primary Care Provider: Jolly Brady Consulting Providers: Ignacio Sifuentes; Lucille Colindres Instructions Patient Instructions: Hip Fx Surg Dc Discharge Orders/Prescriptions Prescriptions: New oxycodone 5 mg Tablet 5 mg PO Q4H PRN PRN (Reason: Pain Score 4-10) 3 Days Qty: 18 0RF Continued aspirin 81 mg tablet,chewable 1 tab PO DAILY acetaminophen 500 mg Tablet 1,000 mg PO Q8H PRN PRN (Reason: fever or pain) Qty: 50 0RF sennosides-docusate sodium [Stool Softener-Stimulant Laxat] 8.6-50 mg Tablet 2 tab PO BID Qty: 120 3RF tamsulosin 0.4 mg Capsule 0.4 mg PO DAILY@1730 Qty: 30 0RF levothyroxine 50 mcg Tablet 50 mcg PO DAILY@0600 Qty: 30 0RF atorvastatin [Lipitor] 40 mg tablet 40 mg PO QHS Qty: 30 0RF diltiazem HCl 240 mg capsule,extended release 24hr 240 mg PO DAILY Qty: 30 3RF apixaban 5 mg tablet 5 mg PO BID Qty: 60 0RF magnesium oxide 400 mg magnesium tablet 400 mg PO BID Qty: 60 0RF ferrous gluconate 324 mg (37.5 mg iron) tablet 324 mg PO DAILY Qty: 90 0RF Rx Instructions: Take this medication once daily WITH FOOD cranberry 500 mg capsule 1,000 mg PO DAILY Patient Comments: unsure of strength lisinopril 5 mg tablet 5 mg PO BID Qty: 60 5RF hydralazine 25 mg tablet 25 mg PO BID Qty: 180 3RF carbamazepine [Tegretol] 200 mg tablet 200 mg PO TID Qty: 90 1RF Patient Comments: 1st dose taken today 06/16 Referrals / Follow Up: Jolly Brady MD [Primary Care Provider] - Within 2 Weeks Disposition Disposition (needs filled in before D/C Order can be placed): [facility] Facility
--- NOTE | 2023-06-21 16:15 | DS.PCM_ITS ---
Providers Date of Admission: 06/17/23 Date of Discharge: 06/21/23 Primary Care Physician: Dr. Jolly Brady MD Consultations 06/17/23 14:53 Consult: Orthopedics Routine Consulting Provider: Ignacio Sifuentes Reason for Consult: R Hip Fracture EMERGENT Consult: No MD Notified: Yes Date Notified: 06/17/23 Time Notified: 11:22 Method of Notification: ED Physician Initiated Reason For Visit: R HIP FRACTURE S/P MECHANICAL FALL Diagnosis Discharge Diagnosis (1) Closed right hip fracture: Status: Acute Code(s): S72.001A - Fracture of unspecified part of neck of right femur, initial encounter for closed fracture (2) Fall: Status: Acute Code(s): W19.XXXA - Unspecified fall, initial encounter (3) Closed head injury: Status: Acute Code(s): S09.90XA - Unspecified injury of head, initial encounter (4) Laceration: Status: Acute (5) Hypokalemia: Status: Acute Code(s): E87.6 - Hypokalemia Medications at Discharge Home Medications aspirin 81 mg chewable tablet 1 tab PO DAILY [facility] 04/08/23 acetaminophen 500 mg tablet 1,000 mg (2 x 500 mg) PO Q8H PRN PRN fever or pain #50 tabs 04/21/23 apixaban 5 mg tablet 5 mg PO BID #60 tabs 04/21/23 atorvastatin 40 mg tablet (Lipitor) 40 mg PO QHS cholesterol #30 tabs 04/21/23 diltiazem HCl 240 mg capsule,extended release 24 hr 240 mg PO DAILY blood pressure #30 caps 04/21/23 ferrous gluconate 324 mg (37.5 mg iron) tablet 324 mg PO DAILY #90 tabs 04/21/23 levothyroxine 50 mcg tablet 50 mcg PO DAILY@0600 #30 tabs 04/21/23 magnesium oxide 400 mg PO BID supplement #60 tabs 04/21/23 sennosides 8.6 mg-docusate sodium 50 mg tablet (Stool Softener-Stimulant Laxative) 2 tab PO BID #120 tabs 04/21/23 tamsulosin 0.4 mg capsule 0.4 mg PO DAILY@1730 #30 caps 04/21/23 lisinopril 5 mg tablet 5 mg PO BID #60 tabs 05/03/23 hydralazine 25 mg tablet 25 mg PO BID #180 tabs 05/10/23 carbamazepine 200 mg tablet (Tegretol) 200 mg PO TID seziures #90 tabs 06/11/23 cranberry 500 mg capsule 1,000 mg PO DAILY 06/17/23 oxycodone 5 mg tablet 5 mg PO Q4H PRN PRN Pain Score 4-10 3 days #18 tabs 06/08 05/01 Hospital Course Operations - (right hip cephalomedullary nailing) Procedures None Summary of Care Provided Minutes Spent on Discharge: 47 Hospital Course: Patient is an 83-year-old male with a past medical history as outlined was admitted through the ED on 06/17/2023 with a complaint of mechanical fall. He was getting out of bed to go to the bathroom and fell. He hit his head and had a small laceration above his right eye. He had severe pain in his right hip so he was brought into the ED. CT of the brain shows soft tissue swelling over the right orbital region but no evidence of fracture. CT of the cervical spine was unremarkable and chest x-ray showed hyperinflation with pleural-parenchymal changes at the right base. Pelvic x-ray showed a nondisplaced right intertrochanteric fracture. He was admitted and managed for debility due to mechanical fall with resultant right intertrochanteric fracture. He had a right cephalomedullary nailing done on 06/19/2023. Post op course was uncomplicated. He was placed back on his home dose of eliquis for DVT prophylaxis. He reemained stable and was discharged to a rehab facility on 06/21/2023. He is to follow up with his PCP and orthopedic surgery within 1-2 weeks. Patient was seen and examined prior to discharge. He felt well and had no complaints. He had had an uneventful night. Review of systems otherwise negative. Labs and vitals reviewed. Medication reviewed and reconciled. Patient was given a prescription for p.o. oxycodone 5 mg every 4 hours as needed for total of 18 tablets for 3 days. Physical Exam Const alert, oriented x3, no apparent distress and average body habitus General Appearance: cooperative, comfortable and well kempt Orientation / Consciousness: awake Exam Limitations: no limitations HEENT normocephalic, head/scalp atraumatic, hearing grossly normal bilaterally and moist oral mucous membranes HEENT Narrative: resolving right periorbital bruising. Mouth: oral and palatal mucosa normal Eyes PERRL, EOMs intact bilaterally and conjunctivae normal Neck no lymphadenopathy and supple Resp normal respiratory effort, no retractions, no use of accessory muscles and clear to auscultation bilaterally Cardio regular rate, regular rhythm, S1 normal heart sound, S2 normal heart sound and no murmurs GI normal to inspection, nondistended, normoactive bowel sounds, soft to palpation and non-tender Extremity normal to inspection, full ROM and no clubbing, cyanosis or edema Skin no rashes or lesions noted and no wounds Skin Narrative: intact dressing over right hip. Neuro oriented x3, CN's II-XII intact bilaterally, moves all extremities, no focal motor deficits and no sensory deficits noted Motor Exam: strength 5/5 throughout Weight / BMI Weight Weight: 181 lb 3.52 oz Body Mass Index (BMI) 25.9 ABG / Lab / Microbiology Data 06/21/23 05:54 06/21/23 05:54 Laboratory: Laboratory Results - last 24 hr 06/21/23 05:54: WBC 7.2, RBC 2.59 L, Hgb 7.3 L, Hct 22.8 L, MCV 88.0, MCH 28.2, MCHC 32.0, RDW Std Deviation 51.5 H, RDW Coeff of Maday 15.9 H, Plt Count 133 L, MPV 10.2, Sodium 132 L, Potassium 4.0, Chloride 102, Carbon Dioxide 27.0, Anion Gap 3 L, BUN 26 H, Creatinine 0.57 L, Estim Creat Clear Calc 73.51, Est GFR (MDRD) Af Amer 177, Est GFR (MDRD) Non-Af 147, BUN/Creatinine Ratio 45.9 H, Glucose 116 H, Calcium 9.2 Microbiology: Microbiology 06/21/23 15:00 Nasal Secretion SARS-CoV-2 Antigen (Rapid) - Final D/C Instructions Discharge Diet: Low fat / Low cholesterol Discharge Activity: Return to Normal Activity Weight Bearing Status: Weight bearing as tolerated Call your doctor if you observe: Fever of 101 or Higher, Shortness of breath, Dizziness, Swelling in the ankles and Chest pain Meaningful Use Info Meaningful Use Meaningful Use Diagnoses (Choose all that apply): None applicable Ischemic Stroke Statin Dosing Therapy Reference: STATIN DOSE THERAPY REFERENCE: * Patients > 75 years receive moderate or high dose statin therapy. * Patients 75 years or YOUNGER should receive HIGH intensity statin dose unless contraindicated. You will be required to document reason for non-treatment if statin daily dose does not meet guidelines. HIGH DOSE STATIN THERAPY DAILY Atorvastatin > than or = to 40 mg Rosuvastatin > than or = to 20 mg Amlodipine + Atorvastatin > than or = to 2.5/40 mg Ezetimibe + Simvastatin 10/80 mg Simvastatin 80mg Discharge Plan Admission Admit Date/Time: 06/17/23 11:16 Primary Reason for Your Visit: right hip fracture Attending Provider: Katerina Moreno Primary Care Provider: Jolly Brady Consulting Providers: Ignacio Sifuentes; Lucille Colindres Instructions Patient Instructions: Hip Fx Surg Dc Discharge Orders/Prescriptions Prescriptions: New oxycodone 5 mg Tablet 5 mg PO Q4H PRN PRN (Reason: Pain Score 4-10) 3 Days Qty: 18 0RF Continued aspirin 81 mg tablet,chewable 1 tab PO DAILY acetaminophen 500 mg Tablet 1,000 mg PO Q8H PRN PRN (Reason: fever or pain) Qty: 50 0RF sennosides-docusate sodium [Stool Softener-Stimulant Laxat] 8.6-50 mg Tablet 2 tab PO BID Qty: 120 3RF tamsulosin 0.4 mg Capsule 0.4 mg PO DAILY@1730 Qty: 30 0RF levothyroxine 50 mcg Tablet 50 mcg PO DAILY@0600 Qty: 30 0RF atorvastatin [Lipitor] 40 mg tablet 40 mg PO QHS Qty: 30 0RF diltiazem HCl 240 mg capsule,extended release 24hr 240 mg PO DAILY Qty: 30 3RF apixaban 5 mg tablet 5 mg PO BID Qty: 60 0RF magnesium oxide 400 mg magnesium tablet 400 mg PO BID Qty: 60 0RF ferrous gluconate 324 mg (37.5 mg iron) tablet 324 mg PO DAILY Qty: 90 0RF Rx Instructions: Take this medication once daily WITH FOOD cranberry 500 mg capsule 1,000 mg PO DAILY Patient Comments: unsure of strength lisinopril 5 mg tablet 5 mg PO BID Qty: 60 5RF hydralazine 25 mg tablet 25 mg PO BID Qty: 180 3RF carbamazepine [Tegretol] 200 mg tablet 200 mg PO TID Qty: 90 1RF Patient Comments: 1st dose taken today 06/16 Referrals / Follow Up: Jolly Brady MD [Primary Care Provider] - Within 2 Weeks Ignacio Sifuentes MD [Med Staff - Active Staff] - Within 2 Weeks Disposition Disposition (needs filled in before D/C Order can be placed): [facility] Charges/Coding Visit Charges Inpatient E&M: 24327 Disch Hosp >30min
[2023-06-21] MEDS: Tamsulosin HCl 0.4 MG Capsule PO (17:38)
[2023-06-21] MEDS: Atorvastatin Calcium 40 MG Tablet PO (21:06)
[2023-06-21] MEDS: oxyCODONE 5 MG Tablet PO (21:12)
== END 2023-06-21 21:45 | disposition skilled nursing facility (03) | DRG 481 ==
LOC: ED 13:05 → MS3 13:40
PROVIDERS: Anesthesiology; Specialist; Admitting Provider Internal Medicine; Emergency Provider Emergency Medicine; PCP Internal Medicine; Visit Provider Student in an Organized Health Care Education/Training Program
PROC: 0QS636Z Reposition Right Upper Femur with Intramedullary Internal Fixation Device, Percutaneous Approach (ICD-10-PCS; CPT 27245; principal; 2023-06-19 07:30)
DX: S72.144A Nondisplaced intertrochanteric fracture of right femur, initial encounter for closed fracture (principal); D62 Acute posthemorrhagic anemia; E87.1 Hypo-osmolality and hyponatremia; N13.8 Other obstructive and reflux uropathy; I48.0 Paroxysmal atrial fibrillation; I10 Essential (primary) hypertension; E03.9 Hypothyroidism, unspecified; S01.111A Laceration without foreign body of right eyelid and periocular area, initial encounter; E78.5 Hyperlipidemia, unspecified; E87.6 Hypokalemia; I25.10 Atherosclerotic heart disease of native coronary artery without angina pectoris; W10.9XXA Fall (on) (from) unspecified stairs and steps, initial encounter; M25.561 Pain in right knee; N40.1 Benign prostatic hyperplasia with lower urinary tract symptoms; R41.0 Disorientation, unspecified; T41.205A Adverse effect of unspecified general anesthetics, initial encounter; Y92.239 Unspecified place in hospital as the place of occurrence of the external cause; R53.81 Other malaise; Z79.82 Long term (current) use of aspirin; Z79.01 Long term (current) use of anticoagulants; Z79.890 Hormone replacement therapy; Z79.899 Other long term (current) drug therapy; Z87.891 Personal history of nicotine dependence
CPT/HCPCS: 36415; 51702; 70450; 71045; 72125; 72170; 73502; 73552; 73562; 76000; 80048; 80053; 82306; 83735; 84100; 85018; 85025; 85027; 85610; 85730; 86850; 86900; 86901; 87426; 93005; 93306; 94668; 97163; 97167; 97530; 97535; 99252; 99285; C1776; J7030; A4216; G0463; J1940; J2405

== ENCOUNTER 2023-06-22 11:40 | Emergency (ER) | payer MEDICARE, OTHER, SELFPAY ==
[2022-06-17 09:31] VITALS: BMI 29.1
[2023-06-22] VITALS (8 sets, daily range): BP systolic 118–167; BP diastolic 58–80; PULSE 78–112; RESP 16–22; TEMP 36.4–36.8; O2SAT 97–100; BMI 27.1
--- NOTE | 2023-06-22 11:50 | EDS_ITS ---
HPI History of Present Illness Chief Complaint: GI Bleed Detail of Chief Complaint: GI bleed, hypotensive, tachycardia on aspirin and Eliquis Informant: patient, PCP and SNF Onset/Context/Timing Onset: - (Received a call 30 minutes prior to arrival because of tachycardia, black stool and hypotension) Context: Sudden Onset Timing: - (Not applicable) Quality: Hypotension tachycardia with reported black stool Location: Cardiovascular and GI Current Severity: Mild Maximum Severity: Moderate Worsened by: Presumed GI bleed Relieved by: Nothing Associated Symptoms Associated Symptoms: Generalized weakness, shortness of breath Narrative Narrative: Patient is an 83-year-old male. He has history of acute on chronic anemia. Patient was recently admitted to the hospital for right hip fracture. He also was noted to have hypokalemia. I received a call from Radha Yadav that patient was tachycardic with rate of 1 30-1 40 with a blood pressure of 96 systolic and black stool. She also informed me that he is on aspirin and Eliquis. He complains of generalized weakness and mild shortness of breath. He does complain of right hip pain. Patient denies headache, visual, ocular auditory symptoms. Patient denies neck pain. Patient denies chest pain. Patient denies abdominal pain. Patient denies blood in his urine. Patient does endorse bruising easily. The randall on his left thigh is a birthmark. 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 Hemothorax on right Multiple fractures of ribs of right side Atherosclerotic heart disease of [place] coronary artery without angina pectoris Unstable angina Non-ST elevated myocardial infarction Trigeminal nerve disease Brainstem tumor Hyperlipemia Hearing problem Back problem Hypertension Home Medications ?Medication ?Instructions ?Recorded ?Last Taken ?Type aspirin 81 mg chewable tablet 1 tab PO DAILY [facility] 04/08/23 06/16/23 History acetaminophen 500 mg tablet 1,000 mg (2 x 500 mg) PO Q8H PRN 04/21/23 Unknown Rx PRN fever or pain #50 tabs apixaban 5 mg tablet 5 mg PO BID #60 tabs 03/13/24 05/08/24 Rx atorvastatin 40 mg tablet (Lipitor) 40 mg PO QHS cholesterol #30 tabs 04/21/23 06/16/23 Rx diltiazem HCl 240 mg 240 mg PO DAILY blood pressure #30 04/21/23 06/16/23 Rx capsule,extended release 24 hr caps ferrous gluconate 324 mg (37.5 mg 324 mg PO DAILY #90 tabs 04/21/23 06/16/23 Rx iron) tablet levothyroxine 50 mcg tablet 50 mcg PO DAILY@0600 #30 tabs 04/21/23 06/17/23 Rx magnesium oxide 400 mg PO BID supplement #60 tabs 04/21/23 06/16/23 Rx sennosides 8.6 mg-docusate sodium 2 tab PO BID #120 tabs 04/21/23 Unknown Rx 50 mg tablet (Stool Softener-Stimulant Laxative) tamsulosin 0.4 mg capsule 0.4 mg PO DAILY@1730 #30 caps 04/21/23 06/16/23 Rx lisinopril 5 mg tablet 5 mg PO BID #60 tabs 05/03/23 06/16/23 Rx hydralazine 25 mg tablet 25 mg PO BID #180 tabs 05/10/23 06/16/23 Rx carbamazepine 200 mg tablet 200 mg PO TID seziures #90 tabs 06/11/23 06/17/23 Rx (Tegretol) cranberry 500 mg capsule 1,000 mg PO DAILY 06/17/23 06/16/23 History oxycodone 5 mg tablet 5 mg PO Q4H PRN PRN Pain Score 06/21/23 Unknown Rx 4-10 3 days #18 tabs Allergy/AdvReac Type Severity Reaction Status Date / Time No Known Allergies Allergy Verified 06/17/23 07:40 Family History Other Heart disease Surgical History History of chest tube placement Status post aorto-coronary artery bypass graft Hx of tonsillectomy Hx of skin graft History of prostate surgery Social History Smoking Status: Former smoker how long ago did patient quit smokin02/08/1969 alcohol intake: never substance use type: does not use what type of physical activity do you participate in: none ROS ROS ED Constitutional Constitutional ED: Denies chills, fever(s), subjective or sweats Eyes Eyes: Denies blurry vision, change in vision or diplopia ENT ENT ED: Denies rhinorrhea or sore throat Cardiovascular Cardiovascular: Denies chest pain, orthopnea, palpitations or paroxysmal nocturnal dyspnea Respiratory/Chest Respiratory/Chest: Reports dyspnea and dyspnea on exertion; Denies cough, orthopnea or paroxysmal nocturnal dyspnea Gastrointestinal Gastrointestinal: Reports melena; Denies abdominal pain, constipation, diarrhea, nausea or vomiting Genitourinary Genitourinary ED: Denies dysuria, hematuria or urinary frequency Musculoskeletal Musculoskeletal: Reports other Details: Right hip pain. Status post surgery June 17. Integumentary Denies rash Neurologic Neurologic: Reports weakness; Denies headache(s) or paresthesias Endocrine Endocrinology: Denies cold intolerance or heat intolerance Hematologic/Lymphatic Hematologic/Lymphatic: Reports easy bleeding and easy bruising EXAM Physical Exam Const Vital Signs: 06/22/23 11:42 Temperature 97.5 F L Temperature Source Temporal Pulse Rate 112 H Respiratory Rate 22 H Blood Pressure 118/67 Blood Pressure Mean 84 Pulse Ox 100 Oxygen Delivery Method Room Air Positive well nourished and well developed Constitutional Narrative: Patient does appear pale. He is tachycardic. He is not hypotensive. His respiratory rate is slightly elevated 22. He is not hypoxic on room air. General Appearance ED: well developed, NAD and pallor Eyes PERRL and EOMs intact bilaterally General Eye ED: Yes pale conjunctiva; Negative for scleral icterus Neck no lymphadenopathy, supple and no JVD Chest Wall inspection of chest normal and palpation of chest normal Resp normal respiratory effort Auscultation: rales bilateral base Cardio regular rhythm, S1 normal heart sound, S2 normal heart sound and no murmurs Rate: tachycardic GI normal to inspection, nondistended, normoactive bowel sounds, non-tender, non- distended and no masses; Negative for hepatosplenomegaly GI Narrative: No obvious patient is fistulas or hemorrhoids noted. Stool is very dark. It is not truly black. Back/Spine no CVA tenderness Extremity Negative for normal to inspection Extremity Narrative: Postop dressing noted right hip region. There is slight blood noted on the proximal gauze dressing. Neuro oriented x3 and CN's II-XII intact bilaterally Sensorium / Orientation: alert Psych mental status grossly normal Skin No no wounds and No skin turgor normal Skin Narrative: Patient has right periorbital bruising and wound from fall June 16. General Skin Exam: pallor; Negative for elasticity normal or jaundice MDM MDM MDM Narrative Medical decision making narrative: Will obtain type and screen. Reportedly hemoglobin is less than 7. CBC was obtained to confirm and assess platelet count. BMP to assess BUN to creatinine ratio as well as renal function. PT PTT was not obtained since she is on Eliquis. History & Record Review Additional record(s) reviewed:: Prior inpatient record (Admitted June 16 for right hip fracture. Underwent surgery. Was discharged to nursing facility yesterday.), Prior ED visit and Prior labs Lab Data Attestation: I reviewed the patient's lab results. Lab results narrative: Hemoglobin 6.6 which is slightly higher than results from this morning. Platelet count is 160 which is within normal limits. BUN and creatinine are elevated at 23 and 0.68 which is close to baseline. His BUN to creatinine ratio is lower than prior results. Glucose elevated 147 with normal CO2 anion gap. Labs: Laboratory Results - last 24 hr 06/22/23 11:55 WBC 8.2 RBC 2.30 L Hgb 6.6 L Hct 20.4 L MCV 88.7 MCH 28.7 MCHC 32.4 RDW Std Deviation 51.5 H RDW Coeff of [place] 15.8 H Plt Count 160 MPV 9.5 Sodium 135 L Potassium 4.4 Chloride 103 Carbon Dioxide 27.0 Anion Gap 5 BUN 23 H Creatinine 0.68 L Estim Creat Clear Calc 73.51 Est GFR (MDRD) Af Amer 143 Est GFR (MDRD) Non-Af 118 BUN/Creatinine Ratio 33.7 H Glucose 147 H Calcium 9.0 EKG Initial EKG: Attestation: I personally reviewed and interpreted this EKG as follows: Interpretation: Atrial Flutter (Variable heart block, 3-4-1. Rate is 97. There is evidence of LVH by voltage criteria. QS duration 90 ms. QT duration 160 ms. [place] is normal. There are no ischemic changes noted.) Treatment and Re-Evaluation :: Stool for blood is negative. Will discharge after unit of blood. Suspect this is due to his surgery with acute on chronic blood loss Discharge Plan Triage Chief Complaint: GI Bleed ED Provider: Obdulio Wolf Dx/Rx/DC Orders Clinical Impression: Symptomatic anemia, Atherosclerotic heart disease of [place] coronary artery without angina pectoris, Acute on chronic anemia, Signs and symptoms of anemia, Transfusion of blood during current hospitalisation, Sinus tachycardia seen on manager cardiac cath, S/P right hip fracture Instructions: ED Anemia, Type Not Specified (Adult) Prescriptions: No Action aspirin 81 mg tablet,chewable 1 tab PO DAILY acetaminophen 500 mg Tablet 1,000 mg PO Q8H PRN PRN (Reason: fever or pain) Qty: 50 0RF sennosides-docusate sodium [Stool Softener-Stimulant Laxat] 8.6-50 mg Tablet 2 tab PO BID Qty: 120 3RF tamsulosin 0.4 mg Capsule 0.4 mg PO DAILY@1730 Qty: 30 0RF levothyroxine 50 mcg Tablet 50 mcg PO DAILY@0600 Qty: 30 0RF atorvastatin [Lipitor] 40 mg tablet 40 mg PO QHS Qty: 30 0RF diltiazem HCl 240 mg capsule,extended release 24hr 240 mg PO DAILY Qty: 30 3RF apixaban 5 mg tablet 5 mg PO BID Qty: 60 0RF magnesium oxide 400 mg magnesium tablet 400 mg PO BID Qty: 60 0RF ferrous gluconate 324 mg (37.5 mg iron) tablet 324 mg PO DAILY Qty: 90 0RF Rx Instructions: Take this medication once daily WITH FOOD cranberry 500 mg capsule 1,000 mg PO DAILY Patient Comments: unsure of strength oxycodone 5 mg Tablet 5 mg PO Q4H PRN PRN (Reason: Pain Score 4-10) 3 Days Qty: 18 0RF lisinopril 5 mg tablet 5 mg PO BID Qty: 60 5RF hydralazine 25 mg tablet 25 mg PO BID Qty: 180 3RF carbamazepine [Tegretol] 200 mg tablet 200 mg PO TID Qty: 90 1RF Patient Comments: 1st dose taken today 06/16 Primary Care Provider: Jolly Brady Referrals: Jolly Brady MD [Primary Care Provider] - Print Language: [place] Citizen Disposition Disposition: Home, Self Care
[2023-06-22 12:14] LABS: Hematocrit 20.4 % (40-54); Hemoglobin 6.6 g/dL (13.0-16.5); Mean Corp Hgb Conc 32.4 g/dL (32-36); Mean Corpuscular Hgb 28.7 pg (27.0-32.0); Mean Corpuscular Volume 88.7 fL (80-94); Mean Platelet Vol. 9.5 fl (6.2-12.0); Platelet Count 160 K/mm3 (150-450); RBC Distribution Width CV 15.8 % (11.6-14.6); RBC Distribution Width SD 51.5 fl (35.1-43.9); White Blood Count 8.2 K/mm3 (4.4-11.0)
[2023-06-22 12:18] LABS: Anion Gap 5 (5-15); BUN 23 mg/dL (7-18); BUN/Creat Ratio 33.7 RATIO (10-20); Chloride 103 mmol/L (98-107); Creatinine, Serum 0.68 mg/dL (0.70-1.30); EST Glomerular Filtration Rate 118 mL/min (>60); Est Glom Filt Rate - Afr Amer 143 mL/min (>60); Estimated Creatinine Clearance 73.51 ml/min; Glucose 147 mg/dL (74-106); Potassium 4.4 mmol/L (3.5-5.1); Sodium Level 135 mmol/L (136-145)
[2023-06-22] MEDS: carBAMazepine 200 MG Tablet PO (14:10)
== END 2023-06-22 17:20 | disposition skilled nursing facility (03) ==
PROVIDERS: Emergency Provider Emergency Medicine; PCP Internal Medicine; Visit Provider Emergency Medicine
DX: D62 Acute posthemorrhagic anemia (principal); I48.11 Longstanding persistent atrial fibrillation; I25.10 Atherosclerotic heart disease of native coronary artery without angina pectoris; R00.0 Tachycardia, unspecified; I25.2 Old myocardial infarction; Z95.1 Presence of aortocoronary bypass graft; Z79.01 Long term (current) use of anticoagulants; Z79.82 Long term (current) use of aspirin; Z79.899 Other long term (current) drug therapy; Z87.891 Personal history of nicotine dependence
CPT/HCPCS: 99284; 80048; 82274; 85027; 86850; 86900; 86901; 86920; 93005; P9016

== ENCOUNTER 2023-06-25 10:13 | Inpatient (IN) | payer MEDICARE, OTHER, SELFPAY ==
[2022-06-17 09:31] VITALS: BMI 29.1
[2023-06-25] VITALS (12 sets, daily range): BP systolic 99–156; BP diastolic 48–88; PULSE 67–102; RESP 12–26; TEMP 36.4–36.7; O2SAT 95–100; BMI 26.0; BMI 25.5
[2023-06-25 10:50] LABS: Absolute Lymphocyte Count 1.78 X10^3/uL (0.83-4.51); Absolute Neutrophil Count 5.4 X10^3/uL (2.0-7.7); Basophil# 0.06 X10^3/uL; Basophil% 0.7 % (0-1); Eosinophil# 0.33 X10^3/uL; Eosinophils% 3.8 % (0-5); Hematocrit 21.6 % (40-54); Hemoglobin 6.7 g/dL (13.0-16.5); Lymphocyte # 1.78 X10^3/ul (0.83-4.51); Lymphocyte % 20.6 % (19-41); Mean Corpuscular Hgb 27.8 pg (27.0-32.0); Mean Corpuscular Volume 89.6 fL (80-94); Monocyte# 1.01 X10^3/uL; Monocyte% 11.7 % (0-10); NRBC Flagged by Analyzer 0 % (0-5); Neutrophil # 5.37 X10^3/uL (2.7-7.7); Platelet Count 280 K/mm3 (150-450); RBC Distribution Width CV 16.2 % (11.6-14.6); Red Blood Count 2.41 M/mm3 (4.6-6.2); White Blood Count 8.7 K/mm3 (4.4-11.0)
[2023-06-25 11:05] LABS: International Normalized Ratio 1.6; Prothrombin Time (Protime)PT. 19.2 SECONDS (11.7-14.9)
--- NOTE | 2023-06-25 11:09 | EDS_ITS ---
HPI History of Present Illness Chief Complaint: Abn Labs Narrative Narrative: 83-year-old male presenting with anemia which has been a chronic issue. He had a recent hip surgery status post fall and hip fracture. He states he is on Eliquis. He states he does have black stools but they have been giving him iron. He states he has not been able to walk yet but he did 20 minutes of PT today. He did not feel lightheaded but he did state he feels weak. He denies any bloody stools. [facility] Medical History Right knee pain Bleeding tendency Heart attack Hearing loss, left Fall Laceration of right facial nerve Action tremor Acute on chronic anemia Longstanding persistent atrial fibrillation History of hypothyroidism Fall Current use of manager intermediate anticoagulation Hemothorax on right Multiple fractures of ribs of right side Atherosclerotic heart disease of [place] coronary artery without angina pectoris Unstable angina Non-ST elevated myocardial infarction Trigeminal nerve disease Brainstem tumor Hyperlipemia Hearing problem Back problem Hypertension Home Medications ?Medication ?Instructions ?Recorded ?Last Taken ?Type aspirin 81 mg chewable tablet 1 tab PO DAILY heart health 04/08/23 06/16/23 History apixaban 5 mg tablet 5 mg PO BID #60 tabs 04/21/23 06/16/23 Rx atorvastatin 40 mg tablet (Lipitor) 40 mg PO QHS cholesterol #30 tabs 04/21/23 06/16/23 Rx diltiazem HCl 240 mg 240 mg PO DAILY blood pressure #30 04/21/23 06/16/23 Rx capsule,extended release 24 hr caps ferrous gluconate 324 mg (37.5 mg 324 mg PO DAILY #90 tabs 04/21/23 06/16/23 Rx iron) tablet levothyroxine 50 mcg tablet 50 mcg PO DAILY@0600 #30 tabs 04/21/23 06/17/23 Rx magnesium oxide 400 mg PO BID supplement #60 tabs 04/21/23 06/16/23 Rx sennosides 8.6 mg-docusate sodium 2 tab PO BID #120 tabs 04/21/23 Unknown Rx 50 mg tablet (Stool Softener-Stimulant Laxative) lisinopril 5 mg tablet 5 mg PO BID #60 tabs 05/03/23 06/16/23 Rx hydralazine 25 mg tablet 25 mg PO BID #180 tabs 05/10/23 06/16/23 Rx carbamazepine 200 mg tablet 200 mg PO TID seziures #90 tabs 06/11/23 06/17/23 Rx (Tegretol) cranberry 500 mg capsule 1,000 mg PO DAILY 06/17/23 06/16/23 History acetaminophen 500 mg tablet 1,000 mg PO Q8H PRN fever or pain 06/25/23 Unknown History ferrous sulfate 325 mg (65 mg 325 mg PO DAILY 06/25/23 Unknown History iron) tablet (Feosol) oxycodone 5 mg tablet 5 mg PO Q4H PRN Pain Score 4-10 06/25/23 Unknown History tamsulosin 0.4 mg capsule 0.4 mg PO BID 06/25/23 Unknown History Allergy/AdvReac Type Severity Reaction Status Date / Time No Known Allergies Allergy Verified 06/25/23 10:19 Family History Other Heart disease Surgical History History of chest tube placement Status post aorto-coronary artery bypass graft Hx of tonsillectomy Hx of skin graft History of prostate surgery Social History Smoking Status: Former smoker how long ago did patient quit smokin02/08/1969 alcohol intake: never substance use type: does not use what type of physical activity do you participate in: none ROS ROS ED Constitutional Constitutional ED: Denies chills, fever(s) or sweats Eyes Eyes: Denies blurry vision or change in vision ENT ENT ED: Denies ear pain or sore throat Cardiovascular Cardiovascular: Denies chest pain, palpitations or racing heartbeat Respiratory/Chest Respiratory/Chest: Denies cough, dyspnea or sputum Gastrointestinal Gastrointestinal: Denies abdominal pain, constipation, diarrhea, nausea or vomiting Genitourinary Genitourinary ED: Denies dysuria, hematuria or urinary frequency Musculoskeletal Musculoskeletal: Denies arthralgias, myalgias or neck pain Integumentary Denies abscess, Abrasions or rash Neurologic Neurologic: Denies headache(s), paresthesias or weakness Psychiatric Psychiatric: Denies anxiety, depression, suicidal ideation or suicidal thoughts Endocrine Endocrinology: Denies polydipsia or polyuria EXAM Physical Exam Const Vital Signs: 06/25/23 10:15 06/25/23 10:20 06/25/23 12:14 Temperature 98.1 F Temperature Source Oral Pulse Rate 85 78 Respiratory Rate 12 16 Respiratory Effort Normal Non-Labored Respiratory Pattern Normal Blood Pressure 117/62 134/78 H Blood Pressure Mean 80 96 Pulse Ox 95 98 Oxygen Delivery Method Room Air Room Air Positive well nourished General Appearance ED: NAD; Negative for pallor HEENT Reports moist mucous membranes Eyes PERRL and EOMs intact bilaterally Resp clear to auscultation bilaterally Auscultation: Negative for rales, rhonchi or wheezes Cardio regular rate and regular rhythm GI GI Narrative: Black stool on rectal exam. Neuro oriented x3 and CN's II-XII intact bilaterally Sensorium / Orientation: alert Motor Exam: general weakness Psych mental status grossly normal Skin General Skin Exam: Negative for jaundice or pallor MDM MDM MDM Narrative Medical decision making narrative: Patient presenting with anemia. It does look as if he has had anemia for the st couple of visits here but he does sound symptomatic of it. He is also on Eliquis and states he has black stools. He was Hemoccult positive today. I did give him a dose of Protonix and spoke with Dr. Rodriguez regarding him and he recommended giving him 2 units of blood which I did agree with and ordered. He is will be transfused. CBC shows white blood cell count 8.7. Hemoglobin 6.7 which is slightly higher than earlier. Platelets are normal at 280. INR is 1.61, PTT 190.21. LFTs are unremarkable. Renal function and electrolytes are within normal limits. Patient remains normotensive and awake and alert. Discussed at length with both he and his daughter. Admitted to the hospitalist. Impression: 1. Acute blood loss anemia 2. Upper GI bleed Lab Data Attestation: I reviewed the patient's lab results. Labs: Laboratory Results - last 24 hr 06/25/23 10:28 WBC 8.7 RBC 2.41 L Hgb 6.7 L Hct 21.6 L MCV 89.6 MCH 27.8 MCHC 31.0 L RDW Std Deviation 52.0 H RDW Coeff of Maday 16.2 H Plt Count 280 MPV 9.0 Immature Gran % (Auto) 1.200 H Neut % (Auto) 62.0 Lymph % (Auto) 20.6 [place] % (Auto) 11.7 H Eos % (Auto) 3.8 Baso % (Auto) 0.7 Absolute Neuts (auto) 5.4 Absolute Lymphs (auto) 1.78 Nucleated RBC % 0 PT 19.2 H INR 1.6 Sodium 135 L Potassium 4.0 Chloride 103 Carbon Dioxide 27.0 Anion Gap 5 BUN 26 H Creatinine 0.59 L Estim Creat Clear Calc 73.51 Est GFR (MDRD) Af Amer 168 Est GFR (MDRD) Non-Af 139 BUN/Creatinine Ratio 43.8 H Glucose 105 Calcium 9.2 Total Bilirubin 0.90 AST 27 ALT 29 Alkaline Phosphatase 86 Total Protein 6.0 L Albumin 2.7 L Globulin 3.3 Albumin/Globulin Ratio 0.8 L Blood Type B POSITIVE Antibody Screen NEGATIVE Crossmatch See Detail Discharge Plan Disposition Disposition: Acute Care [facility] Discharge Date/Time: 06/25/23 14:44
[2023-06-25 11:20] LABS: ALB/GLOB Ratio 0.8 RATIO (0.9-2.4); AST(SGOT) 27 U/L (15-37); Alanine Aminotransfer ALT/SGPT 29 U/L (16-61); Albumin, Serum 2.7 g/dL (3.2-5.0); Alkaline Phosphatase 86 U/L (45-117); Anion Gap 5 (5-15); BUN 26 mg/dL (7-18); BUN/Creat Ratio 43.8 RATIO (10-20); Calcium,Total 9.2 mg/dL (8.5-10.1); Chloride 103 mmol/L (98-107); Creatinine, Serum 0.59 mg/dL (0.70-1.30); EST Glomerular Filtration Rate 139 mL/min (>60); Est Glom Filt Rate - Afr Amer 168 mL/min (>60); Estimated Creatinine Clearance 73.51 ml/min; Globulin 3.3 g/dL (2.2-4.2); Glucose 105 mg/dL (74-106); Sodium Level 135 mmol/L (136-145)
[2023-06-25] MEDS: carBAMazepine 200 MG Tablet PO ×3 (13:08→19:59)
[2023-06-25] MEDS: Pantoprazole Sodium 40 MG in 0.9% Normal Saline (100mL MB+) 100 ML 330 MG IV ×2 (13:08→20:00)
--- NOTE | 2023-06-25 13:28 | EKG12_ITS ---
Test Reason : Blood Pressure : / mmHG Vent. Rate : 080 BPM Atrial Rate : 394 BPM P-R Int : 000 ms QRS Dur : 094 ms QT Int : 382 ms P-R-T Axes : 000 055 044 degrees QTc Int : 440 ms Atrial flutter with variable A-V block with premature ventricular or aberrantly conducted complexes Minimal voltage criteria for LVH, may be normal variant ( Sokolow-Rankin ) Abnormal ECG Confirmed by Pepito Cooper ([id number]), health editor CUCA MAZARIEGOS ([id number]) on 06/28/2023 8:49:52 AM Referred By: Confirmed By:Pepito Cooper
--- NOTE | 2023-06-25 13:36 | PCM.HP.STD ---
HPI - General General Date of Admission: 06/25/23 Date of Service: 06/25/23 Chief Complaint: Found to have severe anemia on lab HPI Narrative OLGA CREWS, is a 83 M was sent from intermediate for hemoglobin 6.3. Patient himself denies dizziness lightheadedness on standing up but he states he could not walk after he had a new hip surgery. Patient had a fall last , on 06/16 and injured his right supraorbital margin and at right intertrochanteric fracture for which cephalomedullary nailing was done on 06/18. Patient was discharged on 06/20 but he said he cannot walk after he had a new hip. He states he has black tarry stool for some time and he attributed to taking iron tablet. Denies any chest pain shortness of breath. On german tutor irregular heart rhythm but controlled. Vitals in the ED reviewed. BP was 170s/62, heart rate 85/min. Hemoglobin found 6.7. ED physician discussed with Dr. 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 Hemothorax on right Multiple fractures of ribs of right side Atherosclerotic heart disease of [place] coronary artery without angina pectoris Unstable angina Non-ST elevated myocardial infarction Trigeminal nerve disease Brainstem tumor Hyperlipemia Hearing problem Back problem Hypertension Home Medications ?Medication ?Instructions ?Recorded ?Last Taken ?Type aspirin 81 mg chewable tablet 1 tab PO DAILY heart health 04/08/23 06/16/23 History apixaban 5 mg tablet 5 mg PO BID #60 tabs 04/21/23 06/16/23 Rx atorvastatin 40 mg tablet (Lipitor) 40 mg PO QHS cholesterol #30 tabs 04/21/23 06/16/23 Rx diltiazem HCl 240 mg 240 mg PO DAILY blood pressure #30 04/21/23 06/16/23 Rx capsule,extended release 24 hr caps ferrous gluconate 324 mg (37.5 mg 324 mg PO DAILY #90 tabs 04/21/23 06/16/23 Rx iron) tablet levothyroxine 50 mcg tablet 50 mcg PO DAILY@0600 #30 tabs 04/21/23 06/17/23 Rx magnesium oxide 400 mg PO BID supplement #60 tabs 04/21/23 06/16/23 Rx sennosides 8.6 mg-docusate sodium 2 tab PO BID #120 tabs 04/21/23 Unknown Rx 50 mg tablet (Stool Softener-Stimulant Laxative) lisinopril 5 mg tablet 5 mg PO BID #60 tabs 05/03/23 06/16/23 Rx hydralazine 25 mg tablet 25 mg PO BID #180 tabs 05/10/23 06/16/23 Rx carbamazepine 200 mg tablet 200 mg PO TID seziures #90 tabs 06/11/23 06/17/23 Rx (Tegretol) cranberry 500 mg capsule 1,000 mg PO DAILY 06/17/23 06/16/23 History acetaminophen 500 mg tablet 1,000 mg PO Q8H PRN fever or pain 06/25/23 Unknown History ferrous sulfate 325 mg (65 mg 325 mg PO DAILY 06/25/23 Unknown History iron) tablet (Feosol) oxycodone 5 mg tablet 5 mg PO Q4H PRN Pain Score 4-10 06/25/23 Unknown History tamsulosin 0.4 mg capsule 0.4 mg PO BID 06/25/23 Unknown History Allergy/AdvReac Type Severity Reaction Status Date / Time No Known Allergies Allergy Verified 06/25/23 10:19 Family History Other Heart disease Surgical History History of chest tube placement Status post aorto-coronary artery bypass graft Hx of tonsillectomy Hx of skin graft History of prostate surgery Social History Smoking Status: Former smoker how long ago did patient quit smokin02/08/1969 alcohol intake: never substance use type: does not use what type of physical activity do you participate in: none ROS ROS Narrative Constitutional: Reports fatigue and weakness. No fever. HEENT: Reports systems reviewed and no addt'l complaints, except as documented Respiratory/Chest: No acute shortness of breath or respiratory distress or wheezing. CVS: No chest pain or shortness of breath. No dizziness. No syncope. Gastrointestinal: Denies vomiting or hematemesis. Melena positive. No abdominal pain Genitourinary: Denies burning urination or new urinary tract symptoms Musculoskeletal: Right hip cephalomedullary done about a week ago. Denies acute joint pain. Recent fall as described in HPI. Neurologic: Denies seizure-like symptoms. skin: Bruise/laceration right supraorbital margin which is glued, 1 week old Endocrinology: Reports systems reviewed and no addt'l complaints, except as documented Hematologic/Lymphatic: Reports systems reviewed and no addt'l complaints, except as documented Rest 14 ROS are negative except as mentioned in HPI Vital Signs Vital Signs Vital Signs: 06/25/23 10:15 06/25/23 10:20 06/25/23 12:14 Temperature 98.1 F Temperature Source Oral Pulse Rate 85 78 Respiratory Rate 12 16 Respiratory Effort Normal Non-Labored Respiratory Pattern Normal Blood Pressure 117/62 134/78 H Blood Pressure Mean 80 96 Pulse Ox 95 98 Oxygen Delivery Method Room Air Room Air Weight Weight: 181 lb 10.574 oz Body Mass Index (BMI) 26.0 Physical Exam Narrative General: Alert, Oriented x3, Cooperative HEENT: Atraumatic, PERRLA, EOMI, Normocephalic Oral: Oral mucosa moist. No Gingival or Mucosal Lesions/ Ulcerations Neck: Supple, No JVD, Negative Carotid Bruits Chest wall/Lungs: Air entry diminished in bilateral lung bases. No crepitation/rhonchi Cardiovascular: Irregular rhythm. Systolic murmur right second ICS, LLSB and cardiac apex with radiation. Probably +MR Abdomen: Bowel Sounds Present, Soft, Non Tender, Non-Distended : No dysuria. No renal angle tenderness. No suprapubic tenderness. Extremities: Mild bilateral leg 1+ edema, Capillary Refill Less than 3 Seconds Skin: Recent laceration right supraorbital margin which is glued, 1 week old. Birthmark over left thigh. Right lower leg has discoloration after accident in 1980s Musculoskeletal: Status post right hip cephalomedullary nailing. No acute tenderness to Palpation of Joints or Extremities Neurological: Cranial nerves II-XII grossly intact, DTR 2+/4. No acute focal neurological deficit. Psych/Mental Status: Normal Affect, Appropriate. Results Lab / Micro Data 06/25/23 10:28 06/25/23 10:28 Labs: Laboratory Results - last 24 hr 06/25/23 10:28: WBC 8.7, RBC 2.41 L, Hgb 6.7 L, Hct 21.6 L, MCV 89.6, MCH 27.8, MCHC 31.0 L, RDW Std Deviation 52.0 H, RDW Coeff of Maday 16.2 H, Plt Count 280, MPV 9.0, Immature Gran % (Auto) 1.200 H, Neut % (Auto) 62.0, Lymph % (Auto) 20.6, [place] % (Auto) 11.7 H, Eos % (Auto) 3.8, Baso % (Auto) 0.7, Absolute Neuts (auto) 5.4, Absolute Lymphs (auto) 1.78, Nucleated RBC % 0, PT 19.2 H, INR 1.6, Sodium 135 L, Potassium 4.0, Chloride 103, Carbon Dioxide 27.0, Anion Gap 5, BUN 26 H, Creatinine 0.59 L, Estim Creat Clear Calc 73.51, Est GFR (MDRD) Af Amer 168, Est GFR (MDRD) Non-Af 139, BUN/Creatinine Ratio 43.8 H, Glucose 105, Calcium 9.2, Total Bilirubin 0.90, AST 27, ALT 29, Alkaline Phosphatase 86, Total Protein 6.0 L, Albumin 2.7 L, Globulin 3.3, Albumin/Globulin Ratio 0.8 L, Crossmatch See Detail Micro: Microbiology 06/25/23 12:27 Stool Stool Occult Blood (LEW) - Final Assessment & Plan Assessment/Plan (1) Acute GI bleeding: PLAN: Plan This 81-year-old gentleman being admitted from nursing of for severe anemia most likely upper GI bleed 1. Severe acute on chronic anemia most likely due to upper GI bleed on Eliquis: Patient is being admitted in PCU. Hemodynamically vitals in acceptable range. IV fluid ordered. Protonix 40 mg IV every 12 hourly. 2 units of PRBC type and crossmatch and transfuse 1 unit. GI is consulted. H&H every 6 hourly. Hold Eliquis and baby aspirin. 2. Closed intertrochanteric fracture of right hip status post intramedullary nailing by Dr. Sifuentes on 06/18: PT and OT ordered. Pain controlled. Patient also had closed head injury/right supraorbital laceration with glued, at that time about a week ago. CT of the head was unremarkable. 3. CAD status post CABG triple-vessel on 04/20/[address] Prasad in situ mammary end-to-side mid LAD, vein graft ascending aorta end-to-side obtuse marginal 1, vein graft ascending aorta end-to-side posterior: Hold baby aspirin. Continue other medications including atorvastatin, diltiazem and lisinopril with holding parameters. Hold hydralazine as blood pressure is in normal limit patient has GI bleed Most recent echo on 06/18/2023 Moderate concentric left ventricular hypertrophy. The left ventricular ejection fraction is 55 %. Aortic sclerosis, no stenosis. There is severe biatrial dilatation. Mild tricuspid valve insufficiency. 4. Paroxysmal A-fib: Continue diltiazem. Hold Eliquis as mentioned above. 5. History of trigeminal neuralgia -Continue home carbamazepine 6. 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 Hypothyroidism -Continue levothyroxine -TSH is within normal limits no need to repeat it 8. History of meningioma -No acute/current issues DVT prophylaxis high risk: Pharmacological prophy is contraindicated because of active GI bleed. Bilateral SCDs Living will/advanced directive/end of life care: Patient does have living will or advanced directive. After discussion of benefits/risks procedures involved with full code, DNR CC arrest and DNR CC, the patient and her daughter opted for full code. Patient does want artificial life support including intubation, tube feed, ventilator and/chest compression, central venous catheter, vasopressor and DC shock if needed. Patient daughter stated that if he does not respond with 2 weeks of aggressive/intensive treatment including ventilator, then will decide for withdrawal of care. Total time spent in [id number] encounter in discussion of advanced directive 17 minutes. Charges/Coding Visit Charges Inpatient E&M: 50434 Init Hosp L3 Procedures Hospitalists Procedures: 70138 Advncd Care Plan 30 Min
--- NOTE | 2023-06-25 13:40 | CASEMGMT ---
Emergency Department [facility] [facility] Sw received phone call from Rehab Helper [employer]ble Finisher, Roselyn, who stated that once patient is transferred from ED to the floor, he has been accepted to return to Rehab by Dr. Monterroso. Sw presented to emergency room and informed Dr. Pierre of this tentative plan. Dr. Pierre expressed understanding. Evonne Ward, MANAGER TELEMARKETING, INTERNATIONAL [employer]REIGHT FORWARDER
[2023-06-25] MEDS: dilTIAZem CD 240 MG Capsule PO (16:40)
[2023-06-25] MEDS: Acetaminophen 500 MG Tablet 1000 MG PO (17:46)
[2023-06-25 18:14] LABS: Magnesium 2.2 mg/dL (1.6-2.6); Phosphorus 2.4 mg/dL (2.5-4.9)
[2023-06-25] MEDS: Lactated Ringers 1,000 ML 75 ML IV (19:58)
[2023-06-25] MEDS: Magnesium Chloride 64 MG Delay Rel.Tablet 128 MG PO (19:59)
[2023-06-25] MEDS: Atorvastatin Calcium 40 MG Tablet PO (19:59)
[2023-06-25] MEDS: Tamsulosin HCl 0.4 MG Capsule PO (20:00)
[2023-06-25] MEDS: 0.9% Saline Lock 10 ML Syringe IV (20:01)
--- NOTE | 2023-06-25 20:28 | NURSING ---
notified lab that next h&h will be at 2130 as blood is finished
[2023-06-25] MEDS: Menthol/Lanolin/Calamine/Znox 113 GM Tube 1 APPLIC TOPICAL (21:43)
[2023-06-25 21:53] LABS: Hematocrit 24.5 % (40-54); Hemoglobin 7.9 g/dL (13.0-16.5)
--- NOTE | 2023-06-25 23:00 | CON.PCM.GI_ITS ---
HPI Consult Data Date of Consult: 06/25/23 HPI Narrative Reason for Consultation: GI bleed HPI Narrative: OLGA CREWS, is a 83 M who presents to the ED with shortness of breath and fatigue. He was sent from [facility] for hemoglobin 6.3. Patient himself denies dizziness lightheadedness on standing up but he states he could not walk after he had a new hip surgery. Patient had a fall last , on 06/16 and injured his right supraorbital margin and at right intertrochanteric fracture for which cephalomedullary nailing was done on 06/18. Patient was discharged on 06/20 but he said he cannot walk after he had a new hip. He states he has black tarry stool for some time and he attributed to taking iron tablet. Denies any chest pain shortness of breath. 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 Vitals in the ED reviewed. BP was 170s/62, heart rate 85/min. Hemoglobin found 6.7. COUNT INCLUDES THE [facility] Medical History Right knee pain Bleeding tendency Heart attack Hearing loss, left Fall Laceration of right facial nerve Action tremor Acute on chronic anemia Longstanding persistent atrial fibrillation History of hypothyroidism Fall Current use of mcc anticoagulation Hemothorax on right Multiple fractures of ribs of right side Atherosclerotic heart disease of [place] coronary artery without angina pectoris Unstable angina Non-ST elevated myocardial infarction Trigeminal nerve disease Brainstem tumor Hyperlipemia Hearing problem Back problem Hypertension Home Medications ?Medication ?Instructions ?Recorded ?Last Taken ?Type aspirin 81 mg chewable tablet 1 tab PO DAILY heart health 04/08/23 06/16/23 History apixaban 5 mg tablet 5 mg PO BID #60 tabs 04/21/23 06/16/23 Rx atorvastatin 40 mg tablet (Lipitor) 40 mg PO QHS cholesterol #30 tabs 04/21/23 06/16/23 Rx diltiazem HCl 240 mg 240 mg PO DAILY blood pressure #30 04/21/23 06/16/23 Rx capsule,extended release 24 hr caps ferrous gluconate 324 mg (37.5 mg 324 mg PO DAILY #90 tabs 04/21/23 06/16/23 Rx iron) tablet levothyroxine 50 mcg tablet 50 mcg PO DAILY@0600 #30 tabs 04/21/23 06/17/23 Rx magnesium oxide 400 mg PO BID supplement #60 tabs 04/21/23 06/16/23 Rx sennosides 8.6 mg-docusate sodium 2 tab PO BID #120 tabs 04/21/23 Unknown Rx 50 mg tablet (Stool Softener-Stimulant Laxative) lisinopril 5 mg tablet 5 mg PO BID #60 tabs 05/03/23 06/16/23 Rx hydralazine 25 mg tablet 25 mg PO BID #180 tabs 05/10/23 06/16/23 Rx carbamazepine 200 mg tablet 200 mg PO TID seziures #90 tabs 06/11/23 06/17/23 Rx (Tegretol) cranberry 500 mg capsule 1,000 mg PO DAILY 06/17/23 06/16/23 History acetaminophen 500 mg tablet 1,000 mg PO Q8H PRN fever or pain 06/25/23 Unknown History ferrous sulfate 325 mg (65 mg 325 mg PO DAILY 06/25/23 Unknown History iron) tablet (Feosol) oxycodone 5 mg tablet 5 mg PO Q4H PRN Pain Score 4-10 06/25/23 Unknown History tamsulosin 0.4 mg capsule 0.4 mg PO BID 06/25/23 Unknown History Allergy/AdvReac Type Severity Reaction Status Date / Time No Known Allergies Allergy Verified 06/25/23 10:19 Family History Other Heart disease Surgical History History of chest tube placement Status post aorto-coronary artery bypass graft Hx of tonsillectomy Hx of skin graft History of prostate surgery Social History Smoking Status: Former smoker how long ago did patient quit smokin02/08/1969 alcohol intake: never substance use type: does not use what type of physical activity do you participate in: none ROS ROS Narrative Constitutional: Reports fatigue and weakness. No fever. HEENT: Reports systems reviewed and no addt'l complaints, except as documented Respiratory/Chest: No acute shortness of breath or respiratory distress or wheezing. CVS: No chest pain or shortness of breath. No dizziness. No syncope. Gastrointestinal: Denies vomiting or hematemesis. Melena positive. No abdominal pain Genitourinary: Denies burning urination or new urinary tract symptoms Musculoskeletal: Right hip cephalomedullary done about a week ago. Denies acute joint pain. Recent fall as described in HPI. Neurologic: Denies seizure-like symptoms. skin: Bruise/laceration right supraorbital margin which is glued, 1 week old Endocrinology: Reports systems reviewed and no addt'l complaints, except as documented Hematologic/Lymphatic: Reports systems reviewed and no addt'l complaints, except as documented Rest 14 ROS are negative except as mentioned in HPI Physical Exam Narrative General: Alert, Oriented x3, Cooperative HEENT: Atraumatic, PERRLA, EOMI, Normocephalic Oral: Oral mucosa moist. No Gingival or Mucosal Lesions/ Ulcerations Neck: Supple, No JVD, Negative Carotid Bruits Chest wall/Lungs: Air entry diminished in bilateral lung bases. No crepitation/rhonchi Cardiovascular: Irregular rhythm. Systolic murmur right second ICS, LLSB and cardiac apex with radiation. Probably +MR Abdomen: Bowel Sounds Present, Soft, Non Tender, Non-Distended : No dysuria. No renal angle tenderness. No suprapubic tenderness. Extremities: Mild bilateral leg 1+ edema, Capillary Refill Less than 3 Seconds Skin: Recent laceration right supraorbital margin which is glued, 1 week old. Birthmark over left thigh. Right lower leg has discoloration after accident in 1980s Musculoskeletal: Status post right hip cephalomedullary nailing. No acute tenderness to Palpation of Joints or Extremities Neurological: Cranial nerves II-XII grossly intact, DTR 2+/4. No acute focal neurological deficit. Psych/Mental Status: Normal Affect, Appropriate. Lab / Micro Data 06/26/23 08:30 06/26/23 03:27 Labs: Laboratory Results - last 24 hr 06/25/23 10:28: WBC 8.7, RBC 2.41 L, Hgb 6.7 L, Hct 21.6 L, MCV 89.6, MCH 27.8, MCHC 31.0 L, RDW Std Deviation 52.0 H, RDW Coeff of Maday 16.2 H, Plt Count 280, MPV 9.0, Immature Gran % (Auto) 1.200 H, Neut % (Auto) 62.0, Lymph % (Auto) 20.6, [place] % (Auto) 11.7 H, Eos % (Auto) 3.8, Baso % (Auto) 0.7, Absolute Neuts (auto) 5.4, Absolute Lymphs (auto) 1.78, Nucleated RBC % 0, PT 19.2 H, INR 1.6, Sodium 135 L, Potassium 4.0, Chloride 103, Carbon Dioxide 27.0, Anion Gap 5, BUN 26 H, Creatinine 0.59 L, Estim Creat Clear Calc 73.51, Est GFR (MDRD) Af Amer 168, Est GFR (MDRD) Non-Af 139, BUN/Creatinine Ratio 43.8 H, Glucose 105, Calcium 9.2, Phosphorus 2.4 L, Magnesium 2.2, Total Bilirubin 0.90, AST 27, ALT 29, Alkaline Phosphatase 86, Total Protein 6.0 L, Albumin 2.7 L, Globulin 3.3, A lbumin/Globulin Ratio 0.8 L, Blood Type B POSITIVE, Antibody Screen NEGATIVE, Crossmatch See Detail 06/25/23 21:32: Hgb 7.9 L, Hct 24.5 L 06/26/23 03:27: WBC 7.7, RBC 2.79 L, Hgb 8.1 L, Hct 25.0 L, MCV 89.6, MCH 29.0, MCHC 32.4, RDW Std Deviation 52.3 H, RDW Coeff of Maday 16.1 H, Plt Count 251, MPV 8.5, Immature Gran % (Auto) 1.200 H, Neut % (Auto) 51.4, Lymph % (Auto) 20.2, M [place] % (Auto) 12.3 H, Eos % (Auto) 14.2 H, Baso % (Auto) 0.7, Absolute Neuts (auto) 4.0, Absolute Lymphs (auto) 1.55, Nucleated RBC % 0, Sodium 138, Potassium 4.1, Chloride 106, Carbon Dioxide 27.0, Anion Gap 5, BUN 24 H, C reatinine 0.45 L, Estim Creat Clear Calc 73.51, Est GFR (MDRD) Af Amer 232, Est GFR (MDRD) Non-Af 191, BUN/Creatinine Ratio 53.5 H, Glucose 99, Calcium 8.8, Total Bilirubin 0.90, Direct Bilirubin 0.37 H, AST 24, ALT 26, Alkaline Phosphatase 78, Total Protein 5.3 L, Albumin 2.4 L, Globulin 2.9, TSH 2.32 06/26/23 08:30: Hgb 8.0 L, Hct 25.1 L Micro: Microbiology 06/25/23 12:27 Stool Stool Occult Blood (LEW) - Final Assessment & Plan Assessment/Plan (1) Closed right hip fracture: (2) Fall: (3) Closed head injury: (4) Laceration: (5) Hypokalemia: PLAN: Plan 83-year-old gentleman with recent Closed intertrochanteric fracture of the right hip Status post intramedullary nail done with Dr. Sifuentes with also history of Acute on chronic anemia -Baseline hemoglobin appears to be between 8 and 10 -hemoglobin was 6.1 on admission -recommend upper endoscopy to evaluate his upper GI tract. He may need a colonoscopy if upper GI tract analysis is negative. He was explained alternatives, risk, benefits including not withstanding bleeding, infection, sepsis, perforation, need for discharge and . He will have an ASA of 3. Charges/Coding Visit Charges Inpatient E&M: 59506 Init Hosp L3
[2023-06-26] VITALS (8 sets, daily range): BP systolic 99–151; BP diastolic 51–79; PULSE 70–95; RESP 16–18; TEMP 36.2–36.7; O2SAT 98–100
--- NOTE | 2023-06-26 | IMM_PTH ---
PATIENT: OLGA CREWS LOC: [facility] U#:[id number] AGE/SX: 83/M ROOM: [facility] RE06/25/[address]: Dr. Lucille Colindres DO : 1940 BED: 1 DIS: 06/28/2023 SPEC #: [id number] RECD: 06/29/23 13:23 STATUS: SOUT REQ #: [id number] DARIUS: 06/26/23 00:[address]: Asher Rodriguez DEPT: IMMUNOHISTOCHEMISTRY RECD BY: Stanley Amos ENTERED: 06/29/23 13:26 SP TYPE: IMMUNO OTHR DR: DO Dr. Jolly Chavez MD Dr. Prakash Chand, MD Tissues: Esophagus, NOS Procedures: P53 (initial) KI-67 (add) Comments: @ Ordering doctor for P53 edited from to @ by RUTH at 06/29/23 1334 @ Ordering doctor for KI67. edited from to @ by RUTH at 06/29/23 1337 @ Submitting doctor edited from to @ by RUTH at 06/29/23 1337 PHYSICIAN & [place] [id number] SPECIMEN INFORMATION: Tissue Source: Distal esophagus biopsy Clinical Info: Acute GI bleed Specimen Number: [id number] CPT code: 39923,05055 METHODOLOGY: Deparaffinized sections of prefer/formalin-fixed tissue or PAP/DQ stained slides are incubated with monoclonal/polyclonal antibodies/oligonucleotide probes. Localization is made via biotin free immunoperoxidase method. Appropriate controls are performed and reacted as expected. Results on target cell population are indicated in the following table: RESULTS: ANTIBODY / CLONE RESULT P53 (DO-7) positive, wild type Ki-67 (30-9) positive, low These tests were developed and their performance characteristics determined by [facility]. They may not have been cleared or approved by the U.S. Food and Drug Administration. The FDA has determined that such clearance or approval is not necessary. The above immunohistochemical/dualISH markers are ordered and reviewed by the Pathologist. INTERPRETATION: Distal esophagus, biopsy: No evidence of dysplasia. KADEN/ 06/30/2023
[2023-06-26 03:37] LABS: Absolute Lymphocyte Count 1.55 X10^3/uL (0.83-4.51); Basophil# 0.05 X10^3/uL; Basophil% 0.7 % (0-1); Eosinophil# 1.09 X10^3/uL; Eosinophils% 14.2 % (0-5); Hemoglobin 8.1 g/dL (13.0-16.5); Lymphocyte # 1.55 X10^3/ul (0.83-4.51); Lymphocyte % 20.2 % (19-41); Mean Corp Hgb Conc 32.4 g/dL (32-36); Mean Corpuscular Volume 89.6 fL (80-94); Mean Platelet Vol. 8.5 fl (6.2-12.0); Monocyte# 0.94 X10^3/uL; Monocyte% 12.3 % (0-10); NRBC Flagged by Analyzer 0 % (0-5); Neutrophil # 3.95 X10^3/uL (2.7-7.7); Neutrophil % 51.4 % (47-70); Platelet Count 251 K/mm3 (150-450); RBC Distribution Width CV 16.1 % (11.6-14.6); RBC Distribution Width SD 52.3 fl (35.1-43.9); Red Blood Count 2.79 M/mm3 (4.6-6.2); White Blood Count 7.7 K/mm3 (4.4-11.0)
[2023-06-26 04:26] LABS: AST(SGOT) 24 U/L (15-37); Alanine Aminotransfer ALT/SGPT 26 U/L (16-61); Albumin, Serum 2.4 g/dL (3.2-5.0); Alkaline Phosphatase 78 U/L (45-117); Anion Gap 5 (5-15); BUN 24 mg/dL (7-18); BUN/Creat Ratio 53.5 RATIO (10-20); Bilirubin, Direct 0.37 mg/dL (0.00-0.30); Calcium,Total 8.8 mg/dL (8.5-10.1); Chloride 106 mmol/L (98-107); Creatinine, Serum 0.45 mg/dL (0.70-1.30); EST Glomerular Filtration Rate 191 mL/min (>60); Est Glom Filt Rate - Afr Amer 232 mL/min (>60); Estimated Creatinine Clearance 73.51 ml/min; Globulin 2.9 g/dL (2.2-4.2); Glucose 99 mg/dL (74-106); Potassium 4.1 mmol/L (3.5-5.1); Protein, Total 5.3 g/dL (6.4-8.2); Sodium Level 138 mmol/L (136-145); Thyroid Stim Hormone (TSH) 2.32 uIU/mL (0.358-3.74)
[2023-06-26] MEDS: Levothyroxine 50 MCG Tablet PO (05:05)
[2023-06-26] MEDS: carBAMazepine 200 MG Tablet PO ×3 (05:05→21:37)
--- NOTE | 2023-06-26 08:27 | PCM.PN.HOSP ---
Reason for Visit Reason for Visit: Diagnoses Gastrointestinal hemorrhage, unspecified (06/25/23) Objective Data Objective Data Vital Signs: Vital Signs Temp Pulse Resp BP Pulse Ox O2 Del Method 97.1 F L 85 16 151/76 H 100 Room Air 06/26/23 05:12 06/26/23 05:12 06/26/23 05:12 06/26/23 05:12 06/26/23 05:12 06/26/23 07:44 Oxygen Delivery Method Room Air Weight: 178 lb 2.136 oz Body Mass Index (BMI) 25.5 Intake & Output: Intake and Output for Last 24 Hours 06/24/23 06/25/23 06/26/23 23:59 23:59 23:59 Intake Total 464.5 / 464.5 Output Total 300 / 300 300 / 300 Balance 164.5 / 164.5 -300 / -300 Lab / Micro Data 06/26/23 08:30 06/26/23 03:27 Labs: Laboratory Results - last 24 hr 06/25/23 10:28: WBC 8.7, RBC 2.41 L, Hgb 6.7 L, Hct 21.6 L, MCV 89.6, MCH 27.8, MCHC 31.0 L, RDW Std Deviation 52.0 H, RDW Coeff of Maday 16.2 H, Plt Count 280, MPV 9.0, Immature Gran % (Auto) 1.200 H, Neut % (Auto) 62.0, Lymph % (Auto) 20.6, [place] % (Auto) 11.7 H, Eos % (Auto) 3.8, Baso % (Auto) 0.7, Absolute Neuts (auto) 5.4, Absolute Lymphs (auto) 1.78, Nucleated RBC % 0, PT 19.2 H, INR 1.6, Sodium 135 L, Potassium 4.0, Chloride 103, Carbon Dioxide 27.0, Anion Gap 5, BUN 26 H, Creatinine 0.59 L, Estim Creat Clear Calc 73.51, Est GFR (MDRD) Af Amer 168, Est GFR (MDRD) Non-Af 139, BUN/Creatinine Ratio 43.8 H, Glucose 105, Calcium 9.2, Phosphorus 2.4 L, Magnesium 2.2, Total Bilirubin 0.90, AST 27, ALT 29, Alkaline Phosphatase 86, Total Protein 6.0 L, Albumin 2.7 L, Globulin 3.3, Albumin/Globulin Ratio 0.8 L, Blood Type B POSITIVE, Antibody Screen NEGATIVE, Crossmatch See Detail 06/25/23 21:32: Hgb 7.9 L, Hct 24.5 L 06/26/23 03:27: WBC 7.7, RBC 2.79 L, Hgb 8.1 L, Hct 25.0 L, MCV 89.6, MCH 29.0, MCHC 32.4, RDW Std Deviation 52.3 H, RDW Coeff of Maday 16.1 H, Plt Count 251, MPV 8.5, Immature Gran % (Auto) 1.200 H, Neut % (Auto) 51.4, Lymph % (Auto) 20.2, [place] % (Auto) 12.3 H, Eos % (Auto) 14.2 H, Baso % (Auto) 0.7, Absolute Neuts (auto) 4.0, Absolute Lymphs (auto) 1.55, Nucleated RBC % 0, Sodium 138, Potassium 4.1, Chloride 106, Carbon Dioxide 27.0, Anion Gap 5, BUN 24 H, Creatinine 0.45 L, Estim Creat Clear Calc 73.51, Est GFR (MDRD) Af Amer 232, Est GFR (MDRD) Non-Af 191, BUN/Creatinine Ratio 53.5 H, Glucose 99, Calcium 8.8, Total Bilirubin 0.90, Direct Bilirubin 0.37 H, AST 24, ALT 26, Alkaline Phosphatase 78, Total Protein 5.3 L, Albumin 2.4 L, Globulin 2.9, TSH 2.32 Micro: Microbiology 06/25/23 12:27 Stool Stool Occult Blood (LEW) - Final Physical Exam Narrative Seen and examined No further issues of melena after admission. Hemodynamically stable. Scheduled for EGD today Seen and examined General: Alert, Oriented x3, Cooperative HEENT: Atraumatic, PERRLA, EOMI, Normocephalic Oral: Oral mucosa moist. No Gingival or Mucosal Lesions/ Ulcerations Neck: Supple, No JVD, Negative Carotid Bruits Chest wall/Lungs: Air entry diminished in bilateral lung bases. No crepitation/rhonchi Cardiovascular: Irregular rhythm. Systolic murmur right second ICS, LLSB and cardiac apex with radiation. Probably +MR Abdomen: Bowel Sounds Present, Soft, Non Tender, Non-Distended : No dysuria. No renal angle tenderness. No suprapubic tenderness. Extremities: Mild bilateral leg 1+ edema, Capillary Refill Less than 3 Seconds Skin: Recent laceration right supraorbital margin which is glued, 1 week old. Birthmark over left thigh. Right lower leg has discoloration after accident in 1980s Musculoskeletal: Status post right hip cephalomedullary nailing. No acute tenderness to Palpation of Joints or Extremities Neurological: Cranial nerves II-XII grossly intact, DTR 2+/4. No acute focal neurological deficit. Psych/Mental Status: Normal Affect, Appropriate. Assessment & Plan Assessment/Plan (1) Acute GI bleeding: PLAN: Plan This 81-year-old gentleman being admitted from nursing of for severe anemia most likely upper GI bleed 1. Severe acute on chronic anemia most likely due to upper GI bleed on Eliquis: Patient is being admitted in PCU. Hemodynamically vitals in acceptable range. IV fluid ordered. Protonix 40 mg IV every 12 hourly. 2 units of PRBC type and crossmatch and transfuse 1 unit. GI is consulted. H&H every 6 hourly. Hold Eliquis and baby aspirin. 06/25 EGD: Impressions : - Z-line irregular, 40 cm from the incisors. - Small hiatal hernia. - Duodenal lipoma. Recommendation continue present medication 2. Closed intertrochanteric fracture of right hip status post intramedullary nailing by Dr. Sifuentes on 06/18: PT and OT ordered. Pain controlled. Patient also had closed head injury/right supraorbital laceration with glued, at that time about a week ago. CT of the head was unremarkable. 3. CAD status post CABG triple-vessel on 04/20/[address] Prasad in situ mammary end-to-side mid LAD, vein graft ascending aorta end-to-side obtuse marginal 1, vein graft ascending aorta end-to-side posterior: Hold baby aspirin. Continue other medications including atorvastatin, diltiazem and lisinopril with holding parameters. Hold hydralazine as blood pressure is in normal limit patient has GI bleed Most recent echo on 06/18/2023 Moderate concentric left ventricular hypertrophy. The left ventricular ejection fraction is 55 %. Aortic sclerosis, no stenosis. There is severe biatrial dilatation. Mild tricuspid valve insufficiency. 4. Paroxysmal A-fib: Continue diltiazem. Hold Eliquis as mentioned above. 5. History of trigeminal neuralgia -Continue home carbamazepine 6. 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 Hypothyroidism -Continue levothyroxine -TSH is within normal limits no need to repeat it 8. History of meningioma -No acute/current issues DVT prophylaxis high risk: Pharmacological prophy is contraindicated because of active GI bleed. Bilateral SCDs Living will/advanced directive/end of life care: Patient does have living will or advanced directive. After discussion of benefits/risks procedures involved with full code, DNR CC arrest and DNR CC, the patient and her daughter opted for full code. Patient does want artificial life support including intubation, tube feed, ventilator and/chest compression, central venous catheter, vasopressor and DC shock if needed. Patient daughter stated that if he does not respond with 2 weeks of aggressive/intensive treatment including ventilator, then will decide for withdrawal of care. Charges/Coding Visit Charges Inpatient E&M: 83406 Subs Hosp L2
[2023-06-26 08:50] LABS: Hematocrit 25.1 % (40-54)
[2023-06-26] MEDS: Lactated Ringers 1,000 ML 15 ML IV (09:27)
--- NOTE | 2023-06-26 09:35 | EGD_PTH ---
PATIENT: OLGA CREWS LOC: [facility] U#:[id number] AGE/SX: 83/M ROOM: [facility] RE06/25/[address]: Dr. Lucille Colindres DO : 1940 BED: 1 DIS: 06/28/2023 SPEC #: [id number] RECD: 06/28/23 07:36 STATUS: HIRAL NAVARRO #: [id number] DARIUS: 06/26/23 09:[address]: Asher Rodriguez DEPT: SURGICAL PATHOLOGY RECD BY: Brock Gallardo ENTERED: 06/28/23 09:09 SP TYPE: EGD [facility] DR: DO Dr. Jolly Chavez MD Dr. Prakash Chand, MD Tissues: Esophagus, NOS Procedures: Special Stain Group II Surgery Specimen Level IV Alcian Blue/PAS (control) HEADER OPERATION: EGD with biopsy PRE-OP DIAGNOSIS: Acute GI bleeding TISSUE SUBMITTED: Biopsy distal esophagus MICROSCOPIC DIAGNOSIS Distal esophagus, biopsy: Gastroesophageal junction biopsy with chronic inflammation. 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 No evidence of dysplasia. See comment. KADEN/ 06/29/2023 COMMENT Immunohistochemistry ([id number]) for P53 and Ki-67 will be performed and results will be reported separately. Alcian blue/PAS stain with matched control supports the above diagnosis. MICROSCOPIC DESCRIPTION Slides are reviewed. GROSS DESCRIPTION Received in fixative is one container labeled with the patient's name and designated Distal esophagus biopsy. The specimen consists of two irregular fragments of light tim soft tissue that in aggregate measure 0.8 x 0.7 x 0.1 cm. The specimen is totally submitted in one cassette. KADEN/ 06/28/2023 TC:3 CPT:47909,12383
--- NOTE | 2023-06-26 09:52 | OP.CCLET_ITS ---
06/26/2023 Jolly Brady [facility] [address] [place] [address] Re : Upper GI endoscopy procedure for Margaret Lindsey Dear Dr. Brady This procedure was performed on Monday, June 26, 2023. My impressions and recommendations are as follows: Impressions : - Z-line irregular, 40 cm from the incisors. - Small hiatal hernia. - Duodenal lipoma. - No specimens collected. Recommendations : - [facility] to [facility]. - Resume previous diet. - Continue present medications. - Await pathology results. My findings are described in the full procedure note, which is enclosed. If I can be of further assistance, please feel free to contact me at . Sincerely, Asher Rodriguez, 06/26/2023 9:51:41 AM This report has been signed electronically.
--- NOTE | 2023-06-26 09:52 | OP.EGD_ITS ---
Patient Name: Margaret Lindsey Procedure Date: 06/26/2023 9:30 AM Date of : 1940 Age: 83 Procedure: Upper GI endoscopy Indications: Iron deficiency anemia Providers: Asher Rodriguez DO Medicines: Monitored Anesthesia Care Patient Profile: This is an 83 year old male. Refer to note in patient chart for documentation of history and physical. Patient has symptoms. Complications: No immediate complications. Procedure: Pre-Anesthesia Assessment: - Prior to the procedure, a History and Physical was performed, and patient medications and allergies were reviewed. The patient is competent. The risks and benefits of the procedure and the sedation options and risks were discussed with the patient. All questions were answered and informed consent was obtained. Patient identification and proposed procedure were verified by the physician in the pre-procedure area. Mental Status Examination: alert and oriented. Airway Examination: normal oropharyngeal airway and neck mobility. Respiratory Examination: clear to auscultation. CV Examination: normal. Prophylactic Antibiotics: The patient does not require prophylactic antibiotics. Prior Anticoagulants: The patient has taken no anticoagulant or antiplatelet agents. ASA Grade Assessment: II - A patient with mild systemic disease. After reviewing the risks and benefits, the patient was deemed in satisfactory condition to undergo the procedure. The anesthesia plan was to use monitored anesthesia care (MAC). Immediately prior to administration of medications, the patient was re-assessed for adequacy to receive sedatives. The heart rate, respiratory rate, oxygen saturations, blood pressure, adequacy of pulmonary ventilation, and response to care were monitored throughout the procedure. The physical status of the patient was re-assessed after the procedure. After obtaining informed consent, the endoscope was passed under direct vision. Throughout the procedure, the patient's blood pressure, pulse, and oxygen saturations were monitored continuously. The Endoscope was introduced through the mouth, and advanced to the second part of duodenum. The upper GI endoscopy was accomplished without difficulty. The patient tolerated the procedure well. Scope In: 9:41:06 AM Scope Out: 9:47:45 AM Total Procedure Duration Time 0 hours 6 minutes 39 seconds Findings: The Z-line was irregular and was found 40 cm from the incisors. A small hiatal hernia was present. No other significant abnormalities were identified in a careful examination of the stomach. There was a large lipoma in the second portion of the duodenum. Impression: - Z-line irregular, 40 cm from the incisors. - Small hiatal hernia. - Duodenal lipoma. - No specimens collected. Recommendation: - Return patient to [facility] for [facility] care. - Resume previous diet. - Continue present medications. - Await pathology results. Procedure Code(s): --- Professional --- 18801, RT, Esophagogastroduodenoscopy, flexible, transoral; diagnostic, including collection of specimen(s) by brushing or washing, when performed (separate procedure) CPT copyright 2021 [employer]. All rights reserved. The codes documented in this report are preliminary and upon auditing coder review may be revised to meet current compliance requirements. Asher Rodriguez DO 06/26/2023 9:51:41 AM This report has been signed electronically. Number of Addenda: 0 Note Initiated On: 06/26/2023 9:30 AM
[2023-06-26] MEDS: Magnesium Chloride 64 MG Delay Rel.Tablet 128 MG PO ×2 (10:41→21:37)
[2023-06-26] MEDS: dilTIAZem CD 240 MG Capsule PO (10:42)
[2023-06-26] MEDS: Tamsulosin HCl 0.4 MG Capsule PO ×2 (10:42→21:37)
[2023-06-26] MEDS: Lisinopril 5 MG Tablet PO ×2 (10:42→21:37)
[2023-06-26] MEDS: Menthol/Lanolin/Calamine/Znox 113 GM Tube 1 APPLIC TOPICAL ×2 (10:43→21:30)
[2023-06-26] MEDS: Ferrous Sulfate 325 MG Tablet PO (10:43)
[2023-06-26] MEDS: Senna/Docusate Sodium 1 Tablet 2 TABLET PO ×2 (10:44→21:36)
[2023-06-26] MEDS: Pantoprazole Sodium 40 MG in 0.9% Normal Saline (100mL MB+) 100 ML 330 MG IV ×2 (10:44→21:29)
[2023-06-26] MEDS: Ensure Plus High Protein 120 ML LIQUID PO ×2 (14:55→21:36)
[2023-06-26] MEDS: Sodium Ferric Gluconat/Sucrose 250 MG in 0.9% Normal Saline (250mL Bag) 250 ML 135 MG IV (15:21)
--- NOTE | 2023-06-26 16:13 | CASEMGMT ---
Social Work Pt's daughter Greta had called in asking for SW. SW called Greta back, her cell phone is not set up to take messages. SW called her home phone, message left. ROSA Ibarra
[2023-06-26] MEDS: Atorvastatin Calcium 40 MG Tablet PO (21:38)
[2023-06-26] MEDS: 0.9% Saline Lock 10 ML Syringe IV (21:39)
[2023-06-27 04:00] VITALS: BP 136/61; PULSE 84; RESP 18; TEMP 36.9; O2SAT 99
[2023-06-27] MEDS: carBAMazepine 200 MG Tablet PO ×3 (05:40→20:53)
[2023-06-27] MEDS: Levothyroxine 50 MCG Tablet PO (05:41)
[2023-06-27 07:17] LABS: Absolute Lymphocyte Count 1.45 X10^3/uL (0.83-4.51); Absolute Neutrophil Count 4.5 X10^3/uL (2.0-7.7); Basophil# 0.04 X10^3/uL; Basophil% 0.5 % (0-1); Eosinophil# 1.12 X10^3/uL; Eosinophils% 13.7 % (0-5); Hematocrit 25.5 % (40-54); Hemoglobin 8.1 g/dL (13.0-16.5); Lymphocyte # 1.45 X10^3/ul (0.83-4.51); Lymphocyte % 17.7 % (19-41); Mean Corp Hgb Conc 31.8 g/dL (32-36); Mean Corpuscular Hgb 28.8 pg (27.0-32.0); Mean Corpuscular Volume 90.7 fL (80-94); Mean Platelet Vol. 8.8 fl (6.2-12.0); Monocyte# 0.89 X10^3/uL; Monocyte% 10.9 % (0-10); NRBC Flagged by Analyzer 0 % (0-5); Neutrophil # 4.48 X10^3/uL (2.7-7.7); Neutrophil % 54.8 % (47-70); Platelet Count 287 K/mm3 (150-450); RBC Distribution Width CV 16.2 % (11.6-14.6); RBC Distribution Width SD 53.1 fl (35.1-43.9); Red Blood Count 2.81 M/mm3 (4.6-6.2); White Blood Count 8.2 K/mm3 (4.4-11.0)
[2023-06-27 07:43] LABS: Anion Gap 1 (5-15); BUN 20 mg/dL (7-18); BUN/Creat Ratio 37.2 RATIO (10-20); Calcium,Total 9.1 mg/dL (8.5-10.1); Chloride 107 mmol/L (98-107); Creatinine, Serum 0.54 mg/dL (0.70-1.30); EST Glomerular Filtration Rate 156 mL/min (>60); Est Glom Filt Rate - Afr Amer 188 mL/min (>60); Estimated Creatinine Clearance 73.51 ml/min; Glucose 129 mg/dL (74-106); Potassium 3.7 mmol/L (3.5-5.1); Sodium Level 137 mmol/L (136-145)
[2023-06-27 08:42] VITALS: BP 153/63; PULSE 80; RESP 18; TEMP 36.6; O2SAT 97
[2023-06-27] MEDS: Pantoprazole Sodium 40 MG in 0.9% Normal Saline (100mL MB+) 100 ML 330 MG IV (08:44)
[2023-06-27] MEDS: 0.9% Saline Lock 10 ML Syringe IV (08:44)
[2023-06-27] MEDS: Lisinopril 5 MG Tablet PO ×2 (08:47→20:54)
[2023-06-27] MEDS: Ensure Plus High Protein 120 ML LIQUID PO ×2 (08:47→13:05)
[2023-06-27] MEDS: Magnesium Chloride 64 MG Delay Rel.Tablet 128 MG PO ×2 (08:47→20:54)
[2023-06-27] MEDS: Tamsulosin HCl 0.4 MG Capsule PO ×2 (08:47→20:54)
[2023-06-27] MEDS: dilTIAZem CD 240 MG Capsule PO (08:47)
[2023-06-27] MEDS: Senna/Docusate Sodium 1 Tablet 2 TABLET PO (08:47)
[2023-06-27] MEDS: Menthol/Lanolin/Calamine/Znox 113 GM Tube 1 APPLIC TOPICAL ×2 (08:48→20:56)
[2023-06-27] MEDS: Ferrous Sulfate 325 MG Tablet PO (08:50)
[2023-06-27] MEDS: Acetaminophen 500 MG Tablet 1000 MG PO ×2 (08:56→20:52)
[2023-06-27] MEDS: Bisacodyl 5 MG Tablet 10 MG PO (09:36)
[2023-06-27] MEDS: Polyethylene Glycol 3350 17 GM PACKET PO (09:36)
--- NOTE | 2023-06-27 12:29 | PN.HOSP_ITS ---
Reason for Visit Reason for Visit: Diagnoses Hypokalemia (06/25/23) Gastrointestinal hemorrhage, unspecified (06/25/23) Unspecified injury of head, initial encounter (06/25/23) Fracture of unspecified part of neck of right femur, initial encounter for closed fracture (06/25/23) Unspecified fall, initial encounter (06/25/23) Objective Data Objective Data Vital Signs: Vital Signs Temp Pulse Resp BP Pulse Ox O2 Del Method O2 Flow Rate 97.9 F 80 18 153/63 H 97 Room Air 2 06/27/23 08:42 06/27/23 08:42 06/27/23 08:42 06/27/23 08:42 06/27/23 08:42 06/27/23 08:42 06/26/23 10:00 Oxygen Flow Rate (L/min) 2 Oxygen Delivery Method Room Air Weight: 178 lb 2.136 oz Body Mass Index (BMI) 25.5 Intake & Output: Intake and Output for Last 24 Hours 06/25/23 06/26/23 06/27/23 23:59 23:59 23:59 Intake Total 464.5 / 464.5 2122.75 / 2422.75 1010 / 1010 Output Total 300 / 300 300 / 300 450 / 450 Balance 164.5 / 164.5 1822.75 / 2122.75 560 / 560 Medical Nutrition Assessment Dietitian: Malnutrition Criteria Met Start: 06/26/23 11:38 Freq: Status: Active Protocol: Document 06/26/23 11:38 NIRAV (Rec: 06/26/23 11:38 NIRAV [id number]) Nutrition Malnutrition Evidence of Malnutrition Exists Yes Malnutrition (moderate): Acute Illness/Injury Evidenced By Suboptimal Energy Intake ( Moderate),Weight Loss (Severe) ,Physical Changes (Mild), Physical Changes (Moderate) Clinical Problem Chronic Disease or Condition Related Malnutrition Etiology related to physiological changes limiting oral intakes Signs/Symptoms as evidenced by poor oral intakes of less than 75% of estimated nutrient needs for at least 7 days 2/2 poor appetite and some NPO status, significant weight loss of 9.2 % or 18lb in 1 week based upon 06/19/23 weight of 196lb and mild to moderate muscle and fat wasting per NFPA (temples, buccal, clavicles,etc). Status Active Problem Recommendation Dietitian Recommendations/Changes Continue with Regular diet for liberalization. Will order Ensure Plus High Protein 120mL 4x/day with medpass to help increase oral intakes and prevent further weight loss. Lab / Micro Data 06/27/23 06:05 06/27/23 06:05 Labs: Laboratory Results - last 24 hr 06/27/23 06:05: WBC 8.2, RBC 2.81 L, Hgb 8.1 L, Hct 25.5 L, MCV 90.7, MCH 28.8, MCHC 31.8 L, RDW Std Deviation 53.1 H, RDW Coeff of Maday 16.2 H, Plt Count 287, MPV 8.8, Immature Gran % (Auto) 2.400 H, Neut % (Auto) 54.8, Lymph % (Auto) 17.7 L, [place] % (Auto) 10.9 H, Eos % (Auto) 13.7 H, Baso % (Auto) 0.5, Absolute Neuts (auto) 4.5, Absolute Lymphs (auto) 1.45, Nucleated RBC % 0, Sodium 137, Potassium 3.7, Chloride 107, Carbon Dioxide 29.0, Anion Gap 1 L, BUN 20 H, C reatinine 0.54 L, Estim Creat Clear Calc 73.51, Est GFR (MDRD) Af Amer 188, Est GFR (MDRD) Non-Af 156, BUN/Creatinine Ratio 37.2 H, Glucose 129 H, Calcium 9.1 Micro: Microbiology 06/25/23 12:27 Stool Stool Occult Blood (LEW) - Final Physical Exam Narrative Seen and examined No further issues of melena after admission. Patient had EGD yesterday. No further bleeding. Physical exam General: Alert, Oriented x3, Cooperative HEENT: Atraumatic, PERRLA, EOMI, Normocephalic Oral: Oral mucosa moist. No Gingival or Mucosal Lesions/ Ulcerations Neck: Supple, No JVD, Negative Carotid Bruits Chest wall/Lungs: Air entry diminished in bilateral lung bases. No crepitation/rhonchi Cardiovascular: Irregular rhythm. Systolic murmur right second ICS, LLSB and cardiac apex with radiation. Abdomen: Bowel Sounds Present, Soft, Non Tender, Non-Distended : No dysuria. No renal angle tenderness. No suprapubic tenderness. Extremities: Mild bilateral leg 1+ edema, Capillary Refill Less than 3 Seconds Skin: Recent laceration right supraorbital margin which is glued, 1 week old. Birthmark over left thigh. Right lower leg has discoloration after accident in 1980s Musculoskeletal: Status post right hip cephalomedullary nailing. Dex are intact. No acute tenderness to Palpation of Joints or Extremities Neurological: Cranial nerves II-XII grossly intact, DTR 2+/4. No acute focal neurological deficit. Psych/Mental Status: Normal Affect, Appropriate. Assessment & Plan Assessment/Plan (1) Acute GI bleeding: PLAN: Plan This 81-year-old gentleman being admitted from nursing of for severe anemia most likely upper GI bleed 1. Severe acute on chronic anemia most likely due to upper GI bleed on Eliquis: Patient is being admitted in PCU. Hemodynamically vitals in acceptable range. IV fluid ordered. Protonix 40 mg IV every 12 hourly. 2 units of PRBC type and crossmatch and transfuse 1 unit. GI is consulted. H&H every 6 hourly. Hold Eliquis and baby aspirin. 06/25 EGD: Impressions : - Z-line irregular, 40 cm from the incisors. - Small hiatal hernia. - Duodenal lipoma. Recommendation continue present medication 06/26: H&H similar over last 2 days. 8.1/25%. Platelet count normal. Pantoprazole 40 mg IV changed to oral twice daily. Baby aspirin to regimen from tomorrow a.m. 2. Closed intertrochanteric fracture of right hip status post intramedullary nailing by Dr. Sifuentes on 06/18: PT and OT ordered. Pain controlled. Patient also had closed head injury/right supraorbital laceration with glued, at that time about a week ago. CT of the head was unremarkable. 3. CAD status post CABG triple-vessel on 04/20/[address] Prasad in situ mammary end-to-side mid LAD, vein graft ascending aorta end-to-side obtuse marginal 1, vein graft ascending aorta end-to-side posterior: Hold baby aspirin. Continue other medications including atorvastatin, diltiazem and lisinopril with holding parameters. Hold hydralazine as blood pressure is in normal limit patient has GI bleed Most recent echo on 06/18/2023 Moderate concentric left ventricular hypertrophy. The left ventricular ejection fraction is 55 %. Aortic sclerosis, no stenosis. There is severe biatrial dilatation. Mild tricuspid valve insufficiency. 4. Paroxysmal A-fib: Continue diltiazem. Hold Eliquis as mentioned above. Will prefer to continue 1 anticoagulants/antiplatelet most likely Eliquis and discontinue baby aspirin 5. History of trigeminal neuralgia -Continue home carbamazepine 6. 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 Hypothyroidism -Continue levothyroxine -TSH is within normal limits no need to repeat it 8. History of meningioma -No acute/current issues DVT prophylaxis high risk: Pharmacological prophylaxis is contraindicated because of active GI bleed. Bilateral SCDs. Eliquis on hold, might resume after 3 more days. Discharge plan: Living will/advanced directive/end of life care: Patient does have living will or advanced directive. After discussion of benefits/risks procedures involved with full code, DNR CC arrest and DNR CC, the patient and her daughter opted for full code. Patient does want artificial life support including intubation, tube feed, ventilator and/chest compression, central venous catheter, vasopressor and DC shock if needed. Patient daughter stated that if he does not respond with 2 weeks of aggressive/intensive treatment including ventilator, then will decide for withdrawal of care. Charges/Coding Visit Charges Inpatient E&M: 66148 Subs Hosp L2
[2023-06-27 15:08] VITALS: BP 119/59; PULSE 85; RESP 18; TEMP 36.6; O2SAT 98
[2023-06-27] MEDS: Pantoprazole Sodium 40 MG Tablet PO (20:54)
[2023-06-27] MEDS: oxyCODONE 5 MG Tablet PO (20:54)
[2023-06-27] MEDS: Atorvastatin Calcium 40 MG Tablet PO (20:54)
[2023-06-27 21:09] VITALS: BP 165/70; PULSE 86; RESP 18; TEMP 36.5; O2SAT 100
[2023-06-28 03:00] VITALS: BP 153/70; PULSE 102; RESP 18; TEMP 36.2; O2SAT 98
[2023-06-28] MEDS: Levothyroxine 50 MCG Tablet PO (05:50)
[2023-06-28] MEDS: carBAMazepine 200 MG Tablet PO (05:51)
[2023-06-28 05:56] LABS: Absolute Lymphocyte Count 1.83 X10^3/uL (0.83-4.51); Absolute Neutrophil Count 4.8 X10^3/uL (2.0-7.7); Basophil# 0.06 X10^3/uL; Basophil% 0.7 % (0-1); Eosinophil# 0.67 X10^3/uL; Eosinophils% 7.9 % (0-5); Hematocrit 25.3 % (40-54); Hemoglobin 8.1 g/dL (13.0-16.5); Lymphocyte # 1.83 X10^3/ul (0.83-4.51); Lymphocyte % 21.7 % (19-41); Mean Corpuscular Hgb 29.1 pg (27.0-32.0); Mean Platelet Vol. 8.5 fl (6.2-12.0); Monocyte# 0.89 X10^3/uL; Monocyte% 10.5 % (0-10); NRBC Flagged by Analyzer 0 % (0-5); Neutrophil % 56.8 % (47-70); Platelet Count 286 K/mm3 (150-450); RBC Distribution Width CV 16.5 % (11.6-14.6); RBC Distribution Width SD 53.7 fl (35.1-43.9); Red Blood Count 2.78 M/mm3 (4.6-6.2); White Blood Count 8.5 K/mm3 (4.4-11.0)
[2023-06-28 06:42] LABS: Anion Gap 2 (5-15); BUN 19 mg/dL (7-18); Chloride 107 mmol/L (98-107); Creatinine, Serum 0.46 mg/dL (0.70-1.30); EST Glomerular Filtration Rate 185 mL/min (>60); Est Glom Filt Rate - Afr Amer 224 mL/min (>60); Estimated Creatinine Clearance 73.51 ml/min; Glucose 104 mg/dL (74-106); Potassium 3.9 mmol/L (3.5-5.1); Sodium Level 138 mmol/L (136-145)
[2023-06-28 08:35] VITALS: BP 129/63; PULSE 63; RESP 16; TEMP 36.5; O2SAT 99
[2023-06-28] MEDS: Pantoprazole Sodium 40 MG Tablet PO (08:39)
[2023-06-28] MEDS: Aspirin 81 MG TAB.CHEW PO (08:39)
[2023-06-28] MEDS: Polyethylene Glycol 3350 17 GM PACKET PO (08:39)
[2023-06-28] MEDS: Senna/Docusate Sodium 1 Tablet 2 TABLET PO (08:39)
[2023-06-28] MEDS: Magnesium Chloride 64 MG Delay Rel.Tablet 128 MG PO (08:40)
[2023-06-28] MEDS: Tamsulosin HCl 0.4 MG Capsule PO (08:40)
[2023-06-28] MEDS: Ferrous Sulfate 325 MG Tablet PO (08:40)
[2023-06-28] MEDS: Lisinopril 5 MG Tablet PO (08:41)
[2023-06-28] MEDS: dilTIAZem CD 240 MG Capsule PO (08:41)
[2023-06-28] MEDS: Menthol/Lanolin/Calamine/Znox 113 GM Tube 1 APPLIC TOPICAL (08:45)
--- NOTE | 2023-06-28 09:21 | CASEMGMT ---
Addendum entered by Lucy Fallon 06/28/23 12:21: Social Work Per physician, pt is ready for dc today. [facility] is able to accept pt. BRENDA met with pt and updated on discharge plan and pt is agreeable. Phone call to pt dgt Joanne and notified and questions answered. Joanne agreeable to dc plan. Nurse updated that pt is ready for dc at this time. Disposition: [facility] Inpatient Rehab BALDEMAR Monroy Original Note: Social Work Pt had been admitted from [facility]. Pt's family requesting placement at [facility]. BRENDA spoke with Kamila in [facility] who states pt has been accepted and can admit when pt is medically ready. Physician updated. VM left with pt's dgt Joanne to update. BALDEMAR Monroy
--- NOTE | 2023-06-28 09:27 | CASEMGMT ---
Discharge Planning [facility] updated that patient will discharge to the acute rehab unit. Brunilda Fajardo DC Planning Asst.
[2023-06-28] MEDS: oxyCODONE 5 MG Tablet PO (10:38)
--- NOTE | 2023-06-28 11:34 | DS.PCM_ITS ---
Providers Date of Admission: 06/25/23 Date of Discharge: 06/28/23 Primary Care Physician: Dr. Jolly Brady MD Consultations 06/25/23 14:56 Consult: Gastroenterology Routine Consulting Provider: [facility] Reason for Consult: GI bleed EMERGENT Consult: No MD Notified: Yes Date Notified: 06/25/23 Time Notified: 13:33 Method of Notification: ED Physician Initiated Reason For Visit: SEVERE ANEMIA, GI BLEED Diagnosis Discharge Diagnosis (1) Acute GI bleeding: Status: Acute Code(s): K92.2 - Gastrointestinal hemorrhage, unspecified Medications at Discharge Home Medications aspirin 81 mg chewable tablet 1 tab PO DAILY heart health 04/08/23 apixaban 5 mg tablet 5 mg PO BID #60 tabs 04/21/23 atorvastatin 40 mg tablet (Lipitor) 40 mg PO QHS cholesterol #30 tabs 04/21/23 diltiazem HCl 240 mg capsule,extended release 24 hr 240 mg PO DAILY blood pressure #30 caps 04/21/23 ferrous gluconate 324 mg (37.5 mg iron) tablet 324 mg PO DAILY #90 tabs 04/21/23 levothyroxine 50 mcg tablet 50 mcg PO DAILY@0600 #30 tabs 04/21/23 magnesium oxide 400 mg PO BID supplement #60 tabs 04/21/23 sennosides 8.6 mg-docusate sodium 50 mg tablet (Stool Softener-Stimulant Laxative) 2 tab PO BID #120 tabs 04/21/23 lisinopril 5 mg tablet 5 mg PO BID #60 tabs 05/03/23 hydralazine 25 mg tablet 25 mg PO BID #180 tabs 05/10/23 carbamazepine 200 mg tablet (Tegretol) 200 mg PO TID seziures #90 tabs 06/11/23 cranberry 500 mg capsule 1,000 mg PO DAILY 06/17/23 acetaminophen 500 mg tablet 1,000 mg PO Q8H PRN fever or pain 06/25/23 ferrous sulfate 325 mg (65 mg iron) tablet (Feosol) 325 mg PO DAILY 06/25/23 oxycodone 5 mg tablet 5 mg PO Q4H PRN Pain Score 4-10 06/25/23 tamsulosin 0.4 mg capsule 0.4 mg PO BID 06/25/23 Hospital Course Operations None Procedures EGD and EKG Summary of Care Provided Minutes Spent on Discharge: 37 Hospital Course: Mr. Lindsey is an 83-year-old white male who presented to the emergency department from acute rehab facility here at [facility] on 06/25/2023 after follow-up labs showed hemoglobin of 6.3. This was asymptomatic. He had admission prior to that from 06/17/2023 through 06/21/2023 after sustaining a fall at home which required cephalomedullary nail to the right hip due to fracture. The patient indicated he been having black tarry stools for some time but he had been taking iron tablets at home for an extended period of time. He is on aspirin and Eliquis at baseline. He takes aspirin for coronary disease but has had no recent stent placements and had a CABG done about 1 year ago. He also takes Eliquis for paroxysmal atrial fibrillation. He was admitted to the PCU. Baseline hemoglobin appears to run between 8 and 9. On admission his hemoglobin was 6.7 and he was transfused 2 units of packed red blood cells. Following transfusion, his hemoglobin has been running anywhere from 7.5-8.5. Gastroenterology was consulted and performed an EGD on 06/26/2023 which was unremarkable. It only showed irregularity at the Z-line, small hiatal hernia and a large lipoma in the second portion of the duodenum but no other abnormalities were identified and no source of bleeding was found. I discussed the case further with Dr. Rodriguez and he felt that it would be very difficult to do a colonoscopy at this time due to his recent hip fracture and him needing to be lie on the right side-lying to perform this. He discussed this with family and they were in agreement that they should not pursue this at this time. Dr. Rodriguez did report that I could restart his Eliquis which we started 5 mg p.o. twice daily on 06/28/2023. We will hold his aspirin for 30 days and restarted at that time as long as there is no recurrent bleeding. We have also made him a follow-up outpatient appointment with gastroenterology with Dr. Rodriguez to be seen on 07/22/2023. His hemoglobin has been stable and I discussed the case with Dr. Monterroso from rehab and she will keep an eye on his hemoglobin monitoring it periodically. He did have 2 guaiac stools while he was here at 1 was positive and 1 was negative. He had no signs of oriana bleeding while hospitalized ever. If he has recurrent anemia requiring transfusion he will need to be readmitted and colonoscopy will need to be pursued. He is aware of this and agreeable. Hemoglobin at the time of discharge was 8.1. He will also need to follow-up with orthopedic surgery as previously recommended and his primary care physician as previously recommended. Discharge diagnoses: Acute on chronic anemia-stabilized Closed intertrochanteric fracture of the right hip status post cephalomedullary nailing Closed head injury Right supraorbital laceration History of falls CAD Hypertension Hyperlipidemia PAF History of trigeminal neuralgia BPH with obstruction Hypothyroidism Chronic tremor History of meningioma Physical Exam Const alert, oriented x3, no apparent distress, average body habitus and no limitations General Appearance: cooperative, comfortable, well kempt and well developed Orientation / Consciousness: awake, oriented to person, oriented to place and oriented to time Exam Limitations: no limitations HEENT normocephalic and moist oral mucous membranes; Negative for head/scalp atraumatic HEENT Narrative: Moderate hearing loss, Mallampati is 2, no thrush, healing ecchymosis around his right eye with a laceration in the supraorbital ridge that is healing well with no signs of infection Eyes PERRL and EOMs intact bilaterally Eyes Narrative: Conjunctiva are slightly pale bilaterally, no scleral icterus Neck no lymphadenopathy and supple Neck Narrative: Trachea midline, no thyroid enlargement Resp normal respiratory effort, no retractions, no use of accessory muscles and clear to auscultation bilaterally Auscultation: Negative for rales, rhonchi or wheezes Cardio regular rate, regular rhythm, S1 normal heart sound, S2 normal heart sound, no murmurs, no rub, no gallops and no clicks GI normal to inspection, nondistended, normoactive bowel sounds, soft to palpation and non-tender Extremity Extremity Narrative: Trace bilateral lower extremity edema, no cyanosis or clubbing Skin no wounds, skin turgor normal and no jaundice Neuro oriented x3, moves all extremities and no focal motor deficits Neuro Narrative: Decreased movement right lower extremity due to pain in the right hip Speech: speech normal Psych affect normal Psych Narrative: Eye contact is good and patient interacts appropriately Medical Records Data Medical Nutrition Assessment Dietitian: Malnutrition Criteria Met Start: 06/26/23 11:38 Freq: Status: Active Protocol: Document 06/26/23 11:38 [facility] (Rec: 06/26/23 11:38 [facility] [id number]) Nutrition Malnutrition Evidence of Malnutrition Exists Yes Malnutrition (moderate): Acute Illness/Injury Evidenced By Suboptimal Energy Intake ( Moderate),Weight Loss (Severe) ,Physical Changes (Mild), Physical Changes (Moderate) Clinical Problem Chronic Disease or Condition Related Malnutrition Etiology related to physiological changes limiting oral intakes Signs/Symptoms as evidenced by poor oral intakes of less than 75% of estimated nutrient needs for at least 7 days 2/2 poor appetite and some NPO status, significant weight loss of 9.2 % or 18lb in 1 week based upon 06/19/23 weight of 196lb and mild to moderate muscle and fat wasting per NFPA (temples, buccal, clavicles,etc). Status Active Problem Recommendation Dietitian Recommendations/Changes Continue with Regular diet for liberalization. Will order Ensure Plus High Protein 120mL 4x/day with medpass to help increase oral intakes and prevent further weight loss. Weight / BMI Weight Weight: 80.8 kg Body Mass Index (BMI) 25.5 ABG / Lab / Microbiology Data 06/28/23 05:20 06/28/23 05:20 Laboratory: Laboratory Results - last 24 hr 06/28/23 05:20: WBC 8.5, RBC 2.78 L, Hgb 8.1 L, Hct 25.3 L, MCV 91.0, MCH 29.1, MCHC 32.0, RDW Std Deviation 53.7 H, RDW Coeff of Maday 16.5 H, Plt Count 286, MPV 8.5, Immature Gran % (Auto) 2.400 H, Neut % (Auto) 56.8, Lymph % (Auto) 21.7, M saray % (Auto) 10.5 H, Eos % (Auto) 7.9 H, Baso % (Auto) 0.7, Absolute Neuts (auto) 4.8, Absolute Lymphs (auto) 1.83, Nucleated RBC % 0, Sodium 138, Potassium 3.9, Chloride 107, Carbon Dioxide 29.0, Anion Gap 2 L, BUN 19 H, C reatinine 0.46 L, Estim Creat Clear Calc 73.51, Est GFR (MDRD) Af Amer 224, Est GFR (MDRD) Non-Af 185, BUN/Creatinine Ratio 41.0 H, Glucose 104, Calcium 9.0 Microbiology: Microbiology 06/25/23 12:27 Stool Stool Occult Blood (LEW) - Final D/C Instructions Discharge Diet: Low fat / Low cholesterol Weight Bearing Status: Weight bearing as tolerated Keep extremity elevated above heart level: Right Leg Meaningful Use Info Meaningful Use Meaningful Use Diagnoses (Choose all that apply): None applicable Ischemic Stroke Statin Dosing Therapy Reference: STATIN DOSE THERAPY REFERENCE: * Patients > 75 years receive moderate or high dose statin therapy. * Patients 75 years or YOUNGER should receive HIGH intensity statin dose unless contraindicated. You will be required to document reason for non-treatment if statin daily dose does not meet guidelines. HIGH DOSE STATIN THERAPY DAILY Atorvastatin > than or = to 40 mg Rosuvastatin > than or = to 20 mg Amlodipine + Atorvastatin > than or = to 2.5/40 mg Ezetimibe + Simvastatin 10/80 mg Simvastatin 80mg Discharge Plan Admission Admit Date/Time: 06/25/23 13:28 Primary Reason for Your Visit: Worsening anemia Attending Provider: Lucille Colindres Primary Care Provider: Jolly Brady Consulting Providers: Lai Gallardo Instructions Additional Instructions / Restrictions: 1. You will need close follow-up of your hemoglobin as we were not able to do a colonoscopy during this hospitalization. Plan is for outpatient follow-up and consider is an outpatient colonoscopy at that time once he is able to live better on his hip 2. Follow-up as an outpatient with orthopedic surgery as previously recommended at last discharge Discharge Orders/Prescriptions Prescriptions: Continued sennosides-docusate sodium [Stool Softener-Stimulant Laxat] 8.6-50 mg Tablet 2 tab PO BID Qty: 120 3RF levothyroxine 50 mcg Tablet 50 mcg PO DAILY@0600 Qty: 30 0RF atorvastatin [Lipitor] 40 mg tablet 40 mg PO QHS Qty: 30 0RF diltiazem HCl 240 mg capsule,extended release 24hr 240 mg PO DAILY Qty: 30 3RF apixaban 5 mg tablet 5 mg PO BID Qty: 60 0RF magnesium oxide 400 mg magnesium tablet 400 mg PO BID Qty: 60 0RF ferrous gluconate 324 mg (37.5 mg iron) tablet 324 mg PO DAILY Qty: 90 0RF Rx Instructions: Take this medication once daily WITH FOOD ferrous sulfate [Feosol] 325 mg (65 mg iron) tablet 325 mg PO DAILY acetaminophen 500 mg Tablet 1,000 mg PO Q8H PRN (Reason: fever or pain) tamsulosin 0.4 mg Capsule 0.4 mg PO BID oxycodone 5 mg Tablet 5 mg PO Q4H PRN (Reason: Pain Score 4-10) cranberry 500 mg capsule 1,000 mg PO DAILY Patient Comments: unsure of strength lisinopril 5 mg tablet 5 mg PO BID Qty: 60 5RF hydralazine 25 mg tablet 25 mg PO BID Qty: 180 3RF carbamazepine [Tegretol] 200 mg tablet 200 mg PO TID Qty: 90 1RF Patient Comments: 1st dose taken today 06/16 Held aspirin 81 mg tablet,chewable 1 tab PO DAILY Hold Instructions: Hold for 30 days Referrals / Follow Up: Jolly Brady MD [Primary Care Provider] - Asher Rodriguez DO [Med Staff - Active Staff] - 07/22/23 11:00 am Disposition Disposition (needs filled in before D/C Order can be placed): Inpatient Rehab Unit/Facility Charges/Coding Visit Charges Inpatient E&M: 13666 Disch Hosp >30min
--- NOTE | 2023-06-28 12:21 | PHA.DC.MR.R ---
Pharmacy [place] Med Reconciliation Pharmacy Service has performed discharge medication reconciliation for this patient. The patient's discharge medication list was reviewed for discrepancies and discrepancies were resolved. Medications at Discharge Home Medications aspirin 81 mg chewable tablet 1 tab PO DAILY heart health 04/08/23 apixaban 5 mg tablet 5 mg PO BID #60 tabs 04/21/23 atorvastatin 40 mg tablet (Lipitor) 40 mg PO QHS cholesterol #30 tabs 04/21/23 diltiazem HCl 240 mg capsule,extended release 24 hr 240 mg PO DAILY blood pressure #30 caps 04/21/23 ferrous gluconate 324 mg (37.5 mg iron) tablet 324 mg PO DAILY #90 tabs 04/21/23 levothyroxine 50 mcg tablet 50 mcg PO DAILY@0600 #30 tabs 04/21/23 magnesium oxide 400 mg PO BID supplement #60 tabs 04/21/23 sennosides 8.6 mg-docusate sodium 50 mg tablet (Stool Softener-Stimulant Laxative) 2 tab PO BID #120 tabs 04/21/23 lisinopril 5 mg tablet 5 mg PO BID #60 tabs 05/03/23 hydralazine 25 mg tablet 25 mg PO BID #180 tabs 05/10/23 carbamazepine 200 mg tablet (Tegretol) 200 mg PO TID seziures #90 tabs 06/11/23 cranberry 500 mg capsule 1,000 mg PO DAILY 06/17/23 acetaminophen 500 mg tablet 1,000 mg PO Q8H PRN fever or pain 06/25/23 ferrous sulfate 325 mg (65 mg iron) tablet (Feosol) 325 mg PO DAILY 06/25/23 oxycodone 5 mg tablet 5 mg PO Q4H PRN Pain Score 4-10 06/25/23 tamsulosin 0.4 mg capsule 0.4 mg PO BID 06/25/23
== END 2023-06-28 13:38 | DRG 378 ==
LOC: ED 13:19 → PCU 13:51
PROVIDERS: Internal Medicine Gastroenterology; Admitting Provider Internal Medicine; Emergency Provider Student in an Organized Health Care Education/Training Program; PCP Internal Medicine; Visit Provider Internal Medicine
PROC: 0DJ08ZZ Inspection of Upper Intestinal Tract, Via Natural or Artificial Opening Endoscopic (ICD-10-PCS; CPT 43235; principal; 2023-06-26 09:30)
DX: K92.1 Melena (principal); D62 Acute posthemorrhagic anemia; E44.1 Mild protein-calorie malnutrition; N13.8 Other obstructive and reflux uropathy; I48.0 Paroxysmal atrial fibrillation; G50.0 Trigeminal neuralgia; E03.9 Hypothyroidism, unspecified; I10 Essential (primary) hypertension; E78.5 Hyperlipidemia, unspecified; E87.6 Hypokalemia; K44.9 Diaphragmatic hernia without obstruction or gangrene; I25.10 Atherosclerotic heart disease of native coronary artery without angina pectoris; R25.1 Tremor, unspecified; W19.XXXD Unspecified fall, subsequent encounter; I25.2 Old myocardial infarction; D17.5 Benign lipomatous neoplasm of intra-abdominal organs; N40.1 Benign prostatic hyperplasia with lower urinary tract symptoms; S72.141D Displaced intertrochanteric fracture of right femur, subsequent encounter for closed fracture with routine healing; R29.6 Repeated falls; Z95.1 Presence of aortocoronary bypass graft; Z68.25 Body mass index [BMI] 25.0-25.9, adult; Z79.01 Long term (current) use of anticoagulants; Z79.82 Long term (current) use of aspirin; Z79.899 Other long term (current) drug therapy; Z86.011 Personal history of benign neoplasm of the brain; Z87.891 Personal history of nicotine dependence
CPT/HCPCS: 36415; 80048; 80053; 80076; 82274; 83735; 84100; 84443; 85014; 85018; 85025; 85027; 85610; 86850; 86900; 86901; 86920; 86922; 88305; 88313; 88341; 88342; 93005; 94668; 97162; 97166; 97530; 97535; 97802; 99284; 99285; J7040; J7050; J7120; P9016; A4216; J2405; J2916

== ENCOUNTER 2023-06-28 13:36 | Inpatient (IN) | payer MEDICARE, OTHER, SELFPAY ==
[2022-06-17 09:31] VITALS: BMI 29.1
[2023-06-28 13:50] VITALS: BP 128/56; PULSE 73; RESP 16; TEMP 36.7; O2SAT 94; BMI 26.9
--- NOTE | 2023-06-28 15:06 | HP.PCM_ITS ---
HPI - General General Date of Admission: 06/28/23 Date of Service: 06/28/23 HPI Narrative MARGARET CREWS, is a 83 YO M with a PMH of chronic atrial fibrillation, chronic anticoagulation with Eliquis, hyperlipidemia, hypertension, coronary artery disease, history of NSTEMI, history of CABG, trigeminal neuralgia, CVAs, BPH with urine retention, history of meningioma, in hospital delirium and hypothyroidism who is well known to me from an admission to inpt rehab in MAR/Apr for multiple rib fractures with associated right hemothorax and right side pulmonary contusions. Margaret presented to the ED at [facility] on 06/17/23 after a fall c/o R R hip pain and a laceration above the R eye. On physical examination he had a 2 cm laceration along the right eyebrow and tenderness along the proximal right femur with the hip held in slight flexion. Brain CT showed no acute changes with the exception of soft tissue swelling overlying the right orbital region. X-ray of the right hip and pelvis that showed a nondisplaced right intertrochanteric fracture. The laceration was sealed with Dermabond and the patient was admitted to the hospitalist service with consult placed to Dr. Sifuentes. Eliquis was placed on hold. He was taken to the OR on 06/19/2023 for right hip cephalomedullary nailing. The postoperative course was uncomplicated with the exception of some confusion at night which she has had in the past when in the hospital. He was transferred to [facility] long term on 06/21/2023. He returned to the ER on 06/22/2023 with complaint of black, tarry stools and hypotension. He was complaining of generalized weakness and shortness of breath. Blood pressure in the emergency room at presentation was 118/67 with a pulse rate of 112. He was 100% saturated on room air. Hemoglobin was 6.6 and he was transfused with 1 unit of packed red blood cells and return to [facility]. He returned to the emergency room on 06/25/2023 again with black heme positive stool and complaints of shortness of breath and fatigue. Hemoglobin was 6.7. He had been taking Eliquis 5 mg twice daily and aspirin 81 mg once daily. He was admitted to the hospitalist service and Dr. Rodriguez was consulted. He underwent EGD with Dr. Rodriguez on 06/26/2023 and this revealed an irregular Z-line, small hiatal hernia and duodenal lipoma. No source of bleeding was identified. Colonoscopy was discussed and is going to be deferred until he is home following recovery from the hip fracture. He has an outpatient appointment scheduled with Dr. Rodriguez on 07/22/2023. Eliquis was restarted on 06/28/2023. Aspirin will be held for period of 30 days and can be restarted if stool is heme-negative. Hemoglobin at the time of discharge from the hospital was stable at 8.1. He was transferred to the acute inpatient rehab unit at [facility] on 06/28/2023 for 3 hours of therapy daily to restore function/independence at or near his level prior to the recent right hip fracture. At the time of discharge from acute rehab in April 2023 he was ambulating with a front wheeled walker. Echocardiogram done on 06/18/2023 showed moderate concentric left ventricular hypertrophy with an ejection fraction of 65%. There was aortic sclerosis but no stenosis. There was severe biatrial dilatation and mild TR. All lab drawn on 06/28/2023 was personally reviewed. White blood cell count is normal at 8.5 and hemoglobin is stable at 8.1. Platelets are within normal limits. Sodium is 138 with a potassium of 3.9. The BUN is 19 with a creatinine of 0.46 which is within his baseline. Magnesium was normal on the . Phosphorus on that date was mildly decreased at 2.4. He has had no follow-up iron studies since he was discharged from rehab in April and at that time he had received intravenous iron supplementation for iron deficiency. [facility] Medical History (Updated 06/29/23 @ 14:[address] Brandee Monterroso, ) Acute on chronic anemia Current use of custodial anticoagulation Atrial fibrillation and flutter History of trigeminal neuralgia Transfusion of blood during current hospitalisation Rib fractures Hip fracture, right Right knee pain Bleeding tendency Heart attack Hearing loss, left Fall Laceration of right facial nerve Action tremor Longstanding persistent atrial fibrillation History of hypothyroidism Fall Hemothorax on right Multiple fractures of ribs of right side Atherosclerotic heart disease of [place] coronary artery without angina pectoris Unstable angina Non-ST elevated myocardial infarction Trigeminal nerve disease Brainstem tumor Hyperlipemia Back problem Hypertension Home Medications ?Medication ?Instructions ?Recorded ?Last Taken ?Type apixaban 5 mg tablet 5 mg PO BID blood thinner #60 tabs 04/21/23 06/16/23 Rx atorvastatin 40 mg tablet (Lipitor) 40 mg PO QHS cholesterol #30 tabs 04/21/23 06/16/23 Rx diltiazem HCl 240 mg 240 mg PO DAILY blood pressure #30 04/21/23 06/16/23 Rx capsule,extended release 24 hr caps levothyroxine 50 mcg tablet 50 mcg PO DAILY@0600 thyroid #30 04/21/23 06/17/23 Rx tabs magnesium oxide 400 mg PO BID supplement #60 tabs 04/21/23 06/16/23 Rx sennosides 8.6 mg-docusate sodium 2 tab PO BID constipation #120 tabs 04/21/23 Unknown Rx 50 mg tablet (Stool Softener-Stimulant Laxative) lisinopril 5 mg tablet 5 mg PO BID bp #60 tabs 05/03/23 06/16/23 Rx hydralazine 25 mg tablet 25 mg PO BID bp #180 tabs 05/10/23 06/16/23 Rx carbamazepine 200 mg tablet 200 mg PO TID seziures #90 tabs 06/11/23 06/17/23 Rx (Tegretol) acetaminophen 500 mg tablet 1,000 mg PO Q8H fever or pain 06/25/23 Unknown History ferrous sulfate 325 mg (65 mg 325 mg PO DAILY iron 06/25/23 Unknown History iron) tablet (Feosol) oxycodone 5 mg tablet 5 mg PO Q4H PRN pain 06/25/23 Unknown History tamsulosin 0.4 mg capsule 0.4 mg PO BID bladder 06/25/23 Unknown History Allergy/AdvReac Type Severity Reaction Status Date / Time No Known Allergies Allergy Verified 06/25/23 10:19 Family History Other Heart disease Surgical History (Updated 06/29/23 @ 14:[address] Brandee Monterroso DO) History of chest tube placement Status post aorto-coronary artery bypass graft Hx of tonsillectomy Hx of skin graft History of prostate surgery Social History Smoking Status: Former smoker how long ago did patient quit smokin02/08/1969 alcohol intake: never substance use type: does not use what type of physical activity do you participate in: none ROS Constitutional Constitutional: Reports frequent falls and weakness; Denies anorexia, change in weight, chills, fatigue, fever(s) or night sweats Eyes Eyes: Denies blurry vision, change in vision, eye pain or loss of vision ENT HEENT: Reports abnormal hearing and hearing loss; Denies dysphagia, headache(s), nasal congestion or sore throat Cardiovascular Cardiovascular: Reports lightheadedness and weakness in extremities; Denies chest pain, dyspnea on exertion, edema, orthopnea, palpitations, paroxysmal nocturnal dyspnea or syncope Respiratory/Chest Respiratory/Chest: Denies cough, dyspnea, shortness of breath at rest, shortness of breath with exertion or wheezing Gastrointestinal Gastrointestinal: Denies abdominal pain, constipation, diarrhea, dyspepsia, hematemesis, hematochezia, nausea or vomiting Genitourinary Genitourinary: Denies dysuria, hematuria, nocturia, urinary frequency, urinary hesitancy, urinary incontinence or urinary urgency Musculoskeletal Musculoskeletal: Denies back pain, joint pain, joint swelling or neck pain Neurologic Neurologic: Reports weakness; Denies confusion, disequilibrium, dizziness, focal weakness, headache(s), paresthesias, seizures or tremor(s) Psychiatric Psychiatric: Reports other Details: He has some sundowning in the evening. No aggressive behavior. I suspect he will be fine on rehab because he was recently here and he knows everyone. He immediately recognized me when I entered his room and told me he is happy to be back here with us. ; Denies anxiety, depression, homicidal ideation or suicidal ideation Endocrine Endocrinology: Denies change in body appearance, polydipsia or polyuria Hematologic/Lymphatic Hematologic/Lymphatic: Reports easy bruising; Denies easy bleeding or lymphadenopathy Allergic/Immunologic Allergic/Immunologic: Denies rhinitis, eczemia or asthma Vital Signs Vital Signs Vital Signs: 06/28/23 13:50 Temperature 98.1 F Temperature Source Temporal Pulse Rate 73 Respiratory Rate 16 Blood Pressure 128/56 H Blood Pressure Mean 80 Blood Pressure Source Monitor Blood Pressure Position Semi-Fowlers Blood Pressure Location Left Arm Pulse Ox 94 Oxygen Delivery Method Room Air Weight Weight: 188 lb 0.869 oz Body Mass Index (BMI) 26.9 Physical Exam Const alert and no apparent distress Constitutional Narrative: Lying in bed. Cooperative. NO TEDS on. HAs shreya-orbital ecchymosis on the R. Recognized me. General Appearance: cooperative, comfortable and well kempt HEENT HEENT Narrative: Healing laceration above the R eyebrow. Was repaired with Dermabond. MM are very dry. No conjunctival injection, no scleral icterus and no discharge from the eyes. Has some hearing loss. Hearing aids are in place. Eyes EOMs intact bilaterally Eyes Narrative: s. Neck supple and No nodes Neck Narrative: Trachea is midline. Chest Chest: symmetrical chest wall rise Resp Resp Narrative: Clear to auscultation anterior and lateral. Not tachypneic, no labored breathing. Cardio S1 normal heart sound, S2 normal heart sound, no murmurs, no rub and no gallops Cardio Narrative: Irregular irregular rhythm with controlled ventricular response. GI normal to inspection, nondistended, normoactive bowel sounds, soft to palpation and non-tender GI Narrative: No guarding with palpation no CVA tenderness Extremity no calf tenderness Extremity Narrative: Has pretibial pitting edema in the right lower extremity and a very mild amount of edema in the left ankle. He has a large birthmark over the left knee and distal to the knee. He has discoloration and deformity of the right proximal medial calf from an accident with a chainsaw in the past. Pedal pulses are 2+ bilaterally. Both feet are warm to touch with intact sensation. Skin no jaundice Rashes: no rashes Neuro CN's II-XII intact bilaterally and moves all extremities Results Lab / Micro Data 06/29/23 05:03 06/29/23 05:03 Assessment & Plan Assessment/Plan (1) Debility: (2) S/P right hip fracture: (3) History of open reduction and internal fixation (ORIF) procedure: (4) Acute on chronic anemia: (5) Acute GI bleeding: (6) Symptomatic anemia: (7) Current use of custodial anticoagulation: (8) Generalized weakness: PLAN: Plan PLAN PT for gait stability OT for ADL's ST for evaluation Analgesics as needed Bowel protocol Fall precautions Assess for Anxiety/Depression GI prophylaxis -pantoprazole 40 mg twice daily for a total of 60 doses DVT prophylaxis with apixaban 5 mg p.o. twice daily for atrial fibrillation and DVT prophylaxis Follow up with Dr. Sifuentes, Dr. Brady and Dr. Rodriguez following DC from [facility] Rehab AM lab including CMP, CBC, Mag and Phos Check a serum iron and iron saturation Continue ferrous sulfate 325 mg daily. Add ascorbic acid to help promote absorption Follow-up with Dr. Rodriguez to schedule a colonoscopy as an outpatient. Charges/Coding Visit Charges Inpatient E&M: 85278 Init Hosp L2
[2023-06-28] MEDS: carBAMazepine 200 MG Tablet PO ×2 (15:19→20:52)
[2023-06-28] MEDS: Acetaminophen 500 MG Tablet 1000 MG PO ×2 (15:19→20:52)
--- NOTE | 2023-06-28 15:45 | NURSING ---
Patient pleasant. called and notified of room number and she asked me to call her daughter. Daughter Joanne's phone does not have a voicemail set up and unable to inform her of room number or team, will retry.
[2023-06-28 15:59] LABS: Platelet Count 306 K/mm3 (150-450); RET-HE 31.9 pg (30-35)
[2023-06-28 16:28] VITALS: BP 152/78; BP 153/62; BP 159/76; PULSE 74; PULSE 79; PULSE 86
[2023-06-28 16:36] LABS: Ferritin 299 ng/mL (26-388); Iron 36 ug/dL (65-175); Iron Binding Capacity,Total 180 ug/dL (250-450)
--- NOTE | 2023-06-28 16:53 | NURSING ---
aware of team day. Patient declined ice for post op hip surgery x several attempts to help with swelling.
[2023-06-28 19:39] VITALS: BP 153/70; PULSE 77; RESP 17; TEMP 36.7
[2023-06-28 20:40] VITALS: O2SAT 98
[2023-06-28] MEDS: 0.9% Saline Lock 10 ML Syringe IV (20:46)
[2023-06-28] MEDS: Menthol/Lanolin/Calamine/Znox 113 GM Tube 1 APPLIC TOPICAL (20:47)
[2023-06-28] MEDS: APIXABAN 5 MG TABLET PO (20:49)
[2023-06-28] MEDS: Lisinopril 5 MG Tablet PO (20:50)
[2023-06-28 20:51] VITALS: BP 146/62; PULSE 94
[2023-06-28] MEDS: Magnesium Chloride 64 MG Delay Rel.Tablet 128 MG PO (20:51)
[2023-06-28] MEDS: Atorvastatin Calcium 40 MG Tablet PO (20:51)
[2023-06-28] MEDS: hydrALAZINE 25 MG Tablet PO (20:51)
[2023-06-28] MEDS: Tamsulosin HCl 0.4 MG Capsule PO (20:51)
[2023-06-28] MEDS: Pantoprazole Sodium 40 MG Tablet PO (20:51)
[2023-06-28 22:00] VITALS: PULSE 94
[2023-06-29] MEDS: 0.9% Saline Lock 10 ML Syringe IV ×2 (05:03→22:36)
[2023-06-29] MEDS: Levothyroxine 50 MCG Tablet PO (05:07)
[2023-06-29] MEDS: carBAMazepine 200 MG Tablet PO ×3 (05:07→22:41)
[2023-06-29] MEDS: Acetaminophen 500 MG Tablet 1000 MG PO ×3 (05:07→22:37)
[2023-06-29] MEDS: Menthol/Lanolin/Calamine/Znox 113 GM Tube 1 APPLIC TOPICAL ×3 (05:08→22:47)
[2023-06-29 06:52] LABS: Hematocrit 29.1 % (40-54); Hemoglobin 8.9 g/dL (13.0-16.5); Mean Corp Hgb Conc 30.6 g/dL (32-36); Mean Corpuscular Hgb 28.3 pg (27.0-32.0); Mean Corpuscular Volume 92.7 fL (80-94); Mean Platelet Vol. 9.3 fl (6.2-12.0); Platelet Count 286 K/mm3 (150-450); RBC Distribution Width CV 17.2 % (11.6-14.6); RBC Distribution Width SD 56.1 fl (35.1-43.9); Red Blood Count 3.14 M/mm3 (4.6-6.2); White Blood Count 8.4 K/mm3 (4.4-11.0)
[2023-06-29 07:11] VITALS: O2SAT 93
[2023-06-29 07:32] VITALS: BP 148/62; PULSE 75; RESP 16; TEMP 36.9; O2SAT 98
[2023-06-29 07:39] LABS: ALB/GLOB Ratio 0.8 RATIO (0.9-2.4); AST(SGOT) 27 U/L (15-37); Alanine Aminotransfer ALT/SGPT 25 U/L (16-61); Albumin, Serum 2.5 g/dL (3.2-5.0); Alkaline Phosphatase 114 U/L (45-117); Anion Gap 5 (5-15); BUN 21 mg/dL (7-18); BUN/Creat Ratio 48.6 RATIO (10-20); Calcium,Total 9.5 mg/dL (8.5-10.1); Chloride 107 mmol/L (98-107); Creatinine, Serum 0.43 mg/dL (0.70-1.30); EST Glomerular Filtration Rate 200 mL/min (>60); Est Glom Filt Rate - Afr Amer 242 mL/min (>60); Estimated Creatinine Clearance 73.51 ml/min; Globulin 3.3 g/dL (2.2-4.2); Glucose 90 mg/dL (74-106); Magnesium 2.2 mg/dL (1.6-2.6); Phosphorus 2.8 mg/dL (2.5-4.9); Potassium 4.3 mmol/L (3.5-5.1); Protein, Total 5.8 g/dL (6.4-8.2); Sodium Level 137 mmol/L (136-145)
[2023-06-29] MEDS: Magnesium Chloride 64 MG Delay Rel.Tablet 128 MG PO ×2 (08:10→22:43)
[2023-06-29] MEDS: Pantoprazole Sodium 40 MG Tablet PO ×2 (08:10→22:40)
[2023-06-29] MEDS: Ferrous Sulfate 325 MG Tablet PO (08:10)
[2023-06-29] MEDS: APIXABAN 5 MG TABLET PO ×2 (08:10→22:40)
[2023-06-29] MEDS: Lisinopril 5 MG Tablet PO ×2 (08:10→22:44)
[2023-06-29 08:11] VITALS: BP 148/62; PULSE 75
[2023-06-29] MEDS: hydrALAZINE 25 MG Tablet PO ×2 (08:11→22:44)
[2023-06-29] MEDS: dilTIAZem CD 240 MG Capsule PO (08:11)
[2023-06-29] MEDS: Tamsulosin HCl 0.4 MG Capsule PO ×2 (08:12→22:40)
[2023-06-29] MEDS: oxyCODONE 5 MG Tablet PO (12:51)
--- NOTE | 2023-06-29 14:27 | CHAPLAIN ---
Type of Pastoral Visit _x__ Initial Visit ___ Follow-up Visit ___ On-call Visit ___ General Patient Visit ___ Spiritual Assessment ___ Family Conference ___ Bereavement ___ Rapid Response ___ Code Blue ___ Other (describe below) Pastoral Care Referral From _x__ Patient ___ Family ___ Nurse ___ Physician ___ Knitting Supervisor ___ Used Car Lot Attendant ___ Other (describe below) Sacrament/Intervention _x__ Active listening ___ Anointing ___ Synagogue ___ Bereavement ___ Communion ___ Molly exploration ___ _x__ Life review _x__ Prayer ___ Reconciliation ___ Sacrament of Sick _x__ Supportive presence ___ Wedding ___ Other (describe below) Pastoral Comments patient is welcoming; pt downplays his physical pain but talks more about his of 58 years that needs me because she is in a wheelchair and no one knows better how to care for her; pt is also concerned about [place]; pt welcomes someone to talk with and for the prayers given for these needs; pt is tearful often as he discusses his life and situation
--- NOTE | 2023-06-29 14:30 | PN_ITS ---
Subjective Subjective Afebrile VSS -systolic blood pressures are mildly elevated and have ranged from 128/56 to 153/70 since arriving on rehab. Orthostatics were negative. Maintaining appropriate oxygen saturation on RA Oral intake - FOOD good FLUIDS good Discussed with nursing - no problems that need addressed. No PVR's done yet. He is a retainer in the past when on rehab. Will have nursing do 3 PVR's. Reviewed the THERAPY notes Medication list reviewed. Serum iron is mildly decreased but the percent iron saturation is adequate at 20%. He is currently on ferrous sulfate 325 mg daily but he is also on Protonix 40 mg twice daily which impairs absorption of iron from the GI tract. Will need to add ascorbic acid. If addition of ascorbic acid is not effective then will likely need periodic IV iron sucrose as an outpatient. Suspect since he is on chronic anticoagulation with apixaban that he intermittently loses blood from the GI tract. Maragret denies chest pain, shortness of breath at rest, cough, palpitations, nausea/vomiting/epigastric pain, dysuria and calf tenderness. Objective Data Objective Data Vital Signs: Vital Signs Temp Pulse Resp BP Pulse Ox O2 Del Method 98.5 F 75 16 148/62 H 98 Room Air 06/29/23 07:32 06/29/23 08:11 06/29/23 07:32 06/29/23 08:11 06/29/23 07:32 06/29/23 10:00 Oxygen Delivery Method Room Air Weight: 188 lb 0.869 oz Body Mass Index (BMI) 26.9 Intake & Output: Intake and Output for Last 24 Hours 06/27/23 06/28/23 06/29/23 23:59 23:59 23:59 Intake Total 510 / 510 1200 / 1200 Output Total 500 / 500 Balance 510 / 510 700 / 700 Lab / Micro Data 06/29/23 05:03 06/29/23 05:03 Labs: Laboratory Results - last 24 hr 06/28/23 05:20: Retic Count 3.80 H, Immature Retic Fraction 27.10 H, Retic Hgb Equivalent 31.9, Iron 36 L, TIBC 180 L, Iron Saturation 20.0, Ferritin 299 06/29/23 05:03: WBC 8.4, RBC 3.14 L, Hgb 8.9 L, Hct 29.1 L, MCV 92.7, MCH 28.3, MCHC 30.6 L, RDW Std Deviation 56.1 H, RDW Coeff of [place] 17.2 H, Plt Count 286, MPV 9.3, Sodium 137, Potassium 4.3, Chloride 107, Carbon Dioxide 25.0, Anion Gap 5, BUN 21 H, Creatinine 0.43 L, Estim Creat Clear Calc 73.51, Est GFR (MDRD) Af Amer 242, Est GFR (MDRD) Non-Af 200, BUN/Creatinine Ratio 48.6 H, Glucose 90, Calcium 9.5, Phosphorus 2.8, Magnesium 2.2, Total Bilirubin 0.70, AST 27, ALT 25, Alkaline Phosphatase 114, Total Protein 5.8 L, Albumin 2.5 L, Globulin 3.3, Albumin/Globulin Ratio 0.8 L Physical Exam Const alert and no apparent distress Constitutional Narrative: Lying in bed. Cooperative. NO TEDS on. HAs shreya-orbital ecchymosis on the R. Recognized me. Resp Resp Narrative: Clear to auscultation anterior and lateral. Not tachypneic, no labored breathing. Cardio no murmurs, no rub and no gallops Cardio Narrative: Irregular irregular rhythm with controlled ventricular response. GI normal to inspection, nondistended, normoactive bowel sounds, soft to palpation and non-tender GI Narrative: No guarding with palpation Extremity no calf tenderness Skin Rashes: no rashes Psych Psych Narrative: Margaret is tearful at times but this is his baseline. He has always been sensitive per his family. He denies feeling depressed or anxious. He is happy to be on rehab again and recognizes people. He is appropriate and not agitated. No hallucinations. 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 Continue therapy 2. Give ferrous sulfate with 1000 mg of ascorbic acid daily 3. Recheck a serum iron and iron saturation in 1 month and if it has decreased in that time will likely need IV iron periodically as an outpatient 4. Recheck CBC and BMP in 1 week. Charges/Coding Visit Charges Inpatient E&M: 80314 Subs Hosp L1
--- NOTE | 2023-06-29 14:44 | PCM.RU.PYE ---
Admission Information Primary Diagnosis:: Debility secondary to generalized weakness and recent right hip fracture Status Changes from Prescreening?: No changes Identified Actual Problem List:: Falls, Skin Intergrity, Pain, ALteration in Cmfrt, Cognitve Impr/Memory Loss, Mobility Impaired, Self Care Deficit and Alteration-Leisure Activ. Potential Problem List:: DVT, Bleeding, Infection, UTI, Aspiration, Falls, Skin Integrity and Depression Risk of Complications DVT: [place] Hose and - (Apixaban 5 mg twice daily) Bleeding: Monitor Lab Values, Nursing to Teach Precautions for anti-coagulation therapy., Wound, if applicable, to be assessed every shift. and Stroke patients assessed for lethargy or change in status. Infection: Clinical Staff to Monitor for S/S of infection: and S/S of infection include fever, redness, warmth, etc. Urinary Tract Infection: Monitor for frequency, burning, discomfort, or incontinence. and Nursing will obtain urine sample for urinalysis and C&S when ordered. Aspiration: Clinical staff will monitor for coughing, drooling, congestion., Speech will evaluate swallowing and dsyphasia. and Nursing will monitor patient swallowing during meals. Falls: Patient will be evaluated for Fall Precautions and Patient will be placed on Fall Precautions as indicated per protocol. Skin Breakdown: Nursing will assess skin daily using assessment tool. and Nursing will place on Skin Breakdown Precautions as indicated. Pain: Clinical staff will assess patient's pain level per protocol., Medications will be given, if needed, and the pain level reassessed. and Other methods: Massage, distraction, decrease stimulus, etc. used PRN. Plan of Care Patient requires physician specializing in physical medicine and rehab oversight to provide close medical supervision of rehab issues including: Pain Management, Sleep Problems, Bowel and Bladder, Medical and co-morbidity Management, DVT prophylaxis, Rehabilitation Leadership and Coordination of treatment team Patient needs Physical Therapy: For a minimum of 1 hour and At least 5 out of 7 days Patient needs Physical Therapy to improve:: Mobility, Strengthening, Transfers, Stretching, ROM, Endurance, Stairs, Gait and Balance Patient needs Occupational Therapy: For a minimum of 1 hour and At least 5 out of 7 days Patient needs Occupational Therapy to improve ADL's incl.: Eating, Grooming, Bathing, Dressing, Toileting, Toilet transfers, Community Reintegration, Higher functioning activities, Household tasks, Adaptive Equipment, Splinting and Other activities as determined Patient requires 24/7 Rehabilitation Nursing for: Pain Issues, Identifying and preventing risk factors, Monitoring and reporting current medical conditions, Assisting with ambulation, transfer, and all ADL's, Teaching patients about disease process and medications, Family teaching, Providing safe environment, Bowel and Bladder Issues, Skin integrity and Medication Management Patient needs Supervisor Winter/ Case Management for: Discharge Planning, Arranging Home Equipment or Services and Family Interventions Patient needs Dietary and Nutrition Services for: Adequate Nutrition, Nutritional Supplements and Nutritional Education Goals Goals Patient will remain: free from falls Patient will perform eating at: MOD I level of assist. Patient will perform bed mobility at: MOD I level of assist. Patient will complete transfers from bed to chair at: - (Supervision) Patient will ambulate: - (165 feet with a wheeled walker at supervision on various surfaces) Patient will complete upper body dressing at: MOD I level of assist. Patient will complete lower body dressing at: MOD I level of assist. (With adaptive equipment as needed to increase independence with self-care.) Patient will complete toilet transfer at: MOD I level of assist. Patient will complete toileting at: MOD I level of assist. Patient will perform bathing at: MOD I level of assist. (Using adaptive equipment for lower body bathing as needed for completeness.) Patient will perform Tub/Shower transfer at: - (Supervision for at least 2 weeks following discharge home.) Patient will complete grooming at: MOD I level of assist. Patient will achieve: - (1 curb step with a wheeled walker at standby assist/contact-guard assist) Patient will have pain level of: of 3 or less Patient's skin will: remain intact Patient will receive: adequate nutrition. Discharge Planning Pt Prognosis for Sig. Practical Improv. w/in Reasonable Time: Good Estimated Length of stay (days): 21 Anticipated D/C Destination: Home with Home Health (With family support) Was Preadmission Assessment Accurate?: Yes
[2023-06-29 15:52] LABS: Mucous, Urine 0 SEEN /hpf (<or=2+); Red Blood Cells-Urine 0 SEEN /hpf (0-5); Squamous Epithelial Cells - UA 0 SEEN /hpf (0-5)
[2023-06-29 16:01] LABS: Color, Urine Yellow (Yellow); Glucose, Dipstick Normal (Normal); Ketone-Dipstick Negative (Negative); Leukocyte Esterase-Dipstick 25 /ul (Negative); Nitrite-Dipstick Negative (Negative); Occult Blood-Urine Negative /ul (Negative); Protein-Dipstick Negative (Negative); Specific Gravity, Urine 1.015 (1.002-1.030); Urine Bilirubin Dipstick Negative (Negative); Urine Clarity Sl. Cloudy (Clear); Urine Urobilinogen Normal (Normal)
[2023-06-29 16:07] LABS: Amorphous Sediment 1+; White Blood Cells 0-5 SEEN /hpf (0-5)
[2023-06-29 16:08] LABS: Bacteria 2+ /hpf (None Seen)
[2023-06-29 19:32] VITALS: BP 143/67; PULSE 65; RESP 16; TEMP 36.8; O2SAT 94
[2023-06-29 22:00] VITALS: BP 167/70; PULSE 82; RESP 16; O2SAT 94
[2023-06-29] MEDS: Atorvastatin Calcium 40 MG Tablet PO (22:40)
[2023-06-29 22:44] VITALS: PULSE 82
[2023-06-30 06:00] VITALS: BMI 26.5
[2023-06-30] MEDS: Acetaminophen 500 MG Tablet 1000 MG PO ×3 (06:22→22:00)
[2023-06-30] MEDS: Levothyroxine 50 MCG Tablet PO (06:22)
[2023-06-30] MEDS: carBAMazepine 200 MG Tablet PO ×3 (06:22→22:01)
[2023-06-30] MEDS: Menthol/Lanolin/Calamine/Znox 113 GM Tube 1 APPLIC TOPICAL ×3 (06:23→21:58)
[2023-06-30 07:16] VITALS: BP 150/67; PULSE 73; RESP 16; TEMP 37; O2SAT 95
[2023-06-30 08:19] VITALS: O2SAT 97
[2023-06-30 08:31] VITALS: BP 150/67; PULSE 73
[2023-06-30] MEDS: dilTIAZem CD 240 MG Capsule PO (08:31)
[2023-06-30] MEDS: Lisinopril 5 MG Tablet PO ×2 (08:31→22:00)
[2023-06-30] MEDS: hydrALAZINE 25 MG Tablet PO ×2 (08:31→22:10)
[2023-06-30] MEDS: APIXABAN 5 MG TABLET PO ×2 (08:32→21:59)
[2023-06-30] MEDS: Tamsulosin HCl 0.4 MG Capsule PO ×2 (08:32→21:59)
[2023-06-30] MEDS: Magnesium Chloride 64 MG Delay Rel.Tablet 128 MG PO ×2 (08:32→21:59)
[2023-06-30] MEDS: Pantoprazole Sodium 40 MG Tablet PO ×2 (08:32→22:01)
[2023-06-30] MEDS: oxyCODONE 5 MG Tablet PO ×3 (10:04→22:07)
[2023-06-30] MEDS: Ferrous Sulfate 325 MG Tablet PO (15:13)
[2023-06-30] MEDS: Ascorbic Acid 500 MG Tablet 1000 MG PO (15:13)
[2023-06-30 19:34] VITALS: BP 142/64; PULSE 75; RESP 17; TEMP 36.4; O2SAT 97
[2023-06-30] MEDS: Atorvastatin Calcium 40 MG Tablet PO (22:00)
[2023-06-30] MEDS: Doxycycline 100 MG CAPSULE PO (22:07)
[2023-06-30 22:10] VITALS: BP 135/56; PULSE 65
[2023-06-30] MEDS: Senna/Docusate Sodium 1 Tablet 2 TABLET PO (22:13)
[2023-07-01] MEDS: Acetaminophen 500 MG Tablet 1000 MG PO ×3 (06:27→22:01)
[2023-07-01] MEDS: carBAMazepine 200 MG Tablet PO ×3 (06:28→22:02)
[2023-07-01] MEDS: Levothyroxine 50 MCG Tablet PO (06:28)
[2023-07-01] MEDS: Menthol/Lanolin/Calamine/Znox 113 GM Tube 1 APPLIC TOPICAL ×3 (06:31→21:59)
[2023-07-01 08:04] VITALS: BP 168/75; PULSE 85; RESP 16; TEMP 36.3; O2SAT 97
[2023-07-01] MEDS: Senna/Docusate Sodium 1 Tablet 2 TABLET PO ×2 (08:42→22:01)
[2023-07-01] MEDS: Lisinopril 5 MG Tablet PO ×2 (08:42→22:02)
[2023-07-01] MEDS: APIXABAN 5 MG TABLET PO ×2 (08:42→21:59)
[2023-07-01] MEDS: Tamsulosin HCl 0.4 MG Capsule PO ×2 (08:42→21:59)
[2023-07-01 08:43] VITALS: PULSE 85
[2023-07-01] MEDS: Magnesium Chloride 64 MG Delay Rel.Tablet 128 MG PO ×2 (08:43→22:00)
[2023-07-01] MEDS: Pantoprazole Sodium 40 MG Tablet PO ×2 (08:43→22:00)
[2023-07-01] MEDS: hydrALAZINE 25 MG Tablet PO ×2 (08:43→22:08)
[2023-07-01] MEDS: Doxycycline 100 MG CAPSULE PO (08:43)
[2023-07-01] MEDS: dilTIAZem CD 240 MG Capsule PO (08:43)
--- NOTE | 2023-07-01 11:51 | PCM.PROGNOTE ---
Subjective Subjective Margaret was seen on team rounds today. His daughter Joanne was present in the room. Doxycycline day #2 of 7 Afebrile VSS -blood pressures are elevated and have ranged from 135/56 to 168/75 over the past 24 hours. Maintaining appropriate oxygen saturation on RA Oral intake - FOOD good FLUIDS good Discussed with nursing -Justin was placed for large postvoid residuals. I was told by nursing that Margaret saw Dr. Vasquez for urine retention and they were told to DC the catheter and no follow up was needed. I reviewed Dr. Vasquez's note - he felt since the patient was asymptomatic he could do without the Fo,rah even though he was retaining. But he did have a UTI with pyuria in April and urine was + for MRSA and MRSE. CREAT has been stable. Reviewed the THERAPY notes Medication list reviewed. A UA was done at the time of insertion of the Justin catheter. The urine was slightly cloudy and it had no RBCs and only 0-5 WBCs. There was 2+ bacteria and the culture grew Staph epidermidis resistant to oxacillin. White blood cell count is normal and he has been afebrile. The urine looks clear to me. I suspect he is colonized. He has grown methicillin-resistant Staph epidermidis and MRSA in his urine in the past and at that time he had pyuria (that was in April on a UA done as OP. Objective Data Objective Data Vital Signs: Vital Signs Temp Pulse Resp BP Pulse Ox O2 Del Method 97.3 F L 85 16 168/75 H 97 Room Air 07/01/23 08:04 07/01/23 08:43 07/01/23 08:04 07/01/23 08:04 07/01/23 08:04 07/01/23 09:39 Oxygen Delivery Method Room Air Weight: 185 lb 10.067 oz Body Mass Index (BMI) 26.5 Intake & Output: Intake and Output for Last 24 Hours 06/29/23 06/30/23 07/01/23 23:59 23:59 23:59 Intake Total 2350 / 2350 1690 / 2090 1500 / 1500 Output Total 2250 / 2250 1900 / 2050 1280 / 1280 Balance 100 / 100 -210 / 40 220 / 220 Lab / Micro Data 06/29/23 05:03 06/29/23 05:03 Micro: Microbiology 06/29/23 15:28 Urine Catheter - Catheter Urine Culture - Final Staphylococcus epidermidis Physical Exam Const alert and no apparent distress Resp Resp Narrative: Clear to auscultation anterior and lateral. Not tachypneic, no labored breathing. Cardio no murmurs, no rub and no gallops Cardio Narrative: Irregular irregular rhythm with controlled ventricular response. GI normal to inspection, nondistended, normoactive bowel sounds, soft to palpation and non-tender GI Narrative: No guarding with palpation Extremity no calf tenderness Skin Rashes: no rashes Wound Narrative: The incisions are intact with no shreya-incisional erythema and no discharge. Periorbital bruising on the right is resolving. There is no discharge from the laceration above the right eye that was treated with Dermabond in the ER. Assessment & Plan Assessment/Plan (1) Debility: (2) S/P right hip fracture: (3) History of open reduction and internal fixation (ORIF) procedure: (4) Acute on chronic anemia: (5) Acute GI bleeding: (6) Symptomatic anemia: (7) Current use of usp anticoagulation: (8) Generalized weakness: (9) Colonization with drug-resistant bacteria: PLAN: He is colonized with methicillin-resistant Staph epidermidis. The last time he had a urinary tract infection he grew MRSA and MRSE. He required antibiotics when he had MRSA. He does not need treatment for MRSE colonization. PLAN: Plan 1. Continue therapy 2. Discontinue doxycycline since he is afebrile with a normal white blood cell count and clear pale yellow urine. He is likely colonized and there is no need to treat. 3. discussed with Margaret and Joanne the risks associated with removing the Justin......infection, kidney failure due to obstructive uropathy, overflow incontinence. Margaret has decided that he would rather have a Justin catheter and risk kidney failure and infection. We talked about using a leg bag at discharge and nursing will show him how to care for it. Will also have fpc at discharge to make sure that he knows how to properly care for the catheter following discharge. 4. family service caseworker will see if patient can qualify for passport services at the time of discharge. We discussed that he is not as strong as he used to be and he has had 2 severe injuries in less than 3 months due to falls. Eventually he will not be able to provide 24/7 care for his . I stressed to Him that the time has not yet come when he will have to give up f24/7 care for his but, I wanted him and his dtr to think about what the plan would be when that time comes. Charges/Coding Visit Charges Inpatient E&M: 89194 Subs Hosp L1
[2023-07-01] MEDS: Ferrous Sulfate 325 MG Tablet PO (12:05)
[2023-07-01] MEDS: Ascorbic Acid 500 MG Tablet 1000 MG PO (12:05)
--- NOTE | 2023-07-01 12:50 | CASEMGMT ---
Social Work - Team Meeting IDT met with patient and daughterJoanne at bedside to complete Team meeting. Discussed patient progress with therapy PT/OT and nursing. Patient is progressing with therapy ambulating 40ft with walker contact guard; stand/sit contact guard. Patient continues to require rehabilitation. Patient has staph aureus; contact precautions required. Physician requested that patient has home health care services with skilled services. SW educated patient and daughterJoanne of Medicare approved days: 15 with anticipated discharge 07/12. [facility]. Patient would like to return home with his . SW discussed [facility] referral for in home support for passport program. Patient goal is to return home Patient would like younger with leg bag. Patient and daughter inquired about support for completing advanced directive and living will with notary. SW to submit referral for [facility] and discuss home health care with patient. SW will continue to follow for discharge planning. JERMAIN Hernández
[2023-07-01 14:17] VITALS: BP 127/55; PULSE 66
--- NOTE | 2023-07-01 18:10 | CASEMGMT ---
Social Work- Initial Assessment SW met with patient at bedside to complete initial intake assessment. SW introduced self and role. Patient is [facility]. Patient confirmed demographics and emergency contact information. Patient confirmed code status as Full Code, but states that if he remains intubated longer than two weeks, he request to be terminally weaned. Patient informed SW that he has paperwork regarding code status request. Patient informed SW that he has an advanced directive, but it wasn't notarized. The patient was provided Advanced Directive/Living Will was provided at bedside. Patient was tearful when discussing goals. Patient informed SW that he would like to return home with to provide care. Patient informed SW that his is wheelchair bound and require assistance for care. Patient informed SW that he has been 58 years and would like to remain home with . SW discussed safety concerns for caring for without additional support. Patient informed SW that he would like to obtain more support for care. SW discussed direction home passport program. SW provided patient with medical alert device information and home health care. Patient informed SW that he has home health care services in the past. Patient is amendable for services. Patient requested for resource for transportation. Patient's daughter is currently providing transportation. SW provided patient with resources for [employer]. SW will continue to monitor to provide support for discharge planning. JERMAIN Hernández
[2023-07-01 22:00] VITALS: BP 158/75; PULSE 80; RESP 16; TEMP 37.1; O2SAT 99
[2023-07-01] MEDS: Atorvastatin Calcium 40 MG Tablet PO (22:00)
[2023-07-01 22:08] VITALS: BP 158/75; PULSE 80
[2023-07-01] MEDS: oxyCODONE 5 MG Tablet PO (22:08)
[2023-07-01] MEDS: 0.9% Saline Lock 10 ML Syringe IV (22:11)
[2023-07-02] MEDS: Acetaminophen 500 MG Tablet 1000 MG PO ×3 (05:02→22:08)
[2023-07-02] MEDS: Levothyroxine 50 MCG Tablet PO (05:02)
[2023-07-02] MEDS: Menthol/Lanolin/Calamine/Znox 113 GM Tube 1 APPLIC TOPICAL ×3 (05:03→22:17)
[2023-07-02] MEDS: carBAMazepine 200 MG Tablet PO ×3 (05:03→22:08)
[2023-07-02 05:29] VITALS: BP 153/66; PULSE 79
[2023-07-02 08:59] VITALS: PULSE 79
[2023-07-02] MEDS: dilTIAZem CD 240 MG Capsule PO (08:59)
[2023-07-02] MEDS: hydrALAZINE 25 MG Tablet PO ×2 (08:59→22:15)
[2023-07-02] MEDS: Magnesium Chloride 64 MG Delay Rel.Tablet 128 MG PO ×2 (08:59→22:09)
[2023-07-02] MEDS: Tamsulosin HCl 0.4 MG Capsule PO ×2 (08:59→22:07)
[2023-07-02] MEDS: Lisinopril 5 MG Tablet PO ×2 (09:00→22:07)
[2023-07-02] MEDS: Senna/Docusate Sodium 1 Tablet 2 TABLET PO ×2 (09:00→22:07)
[2023-07-02] MEDS: APIXABAN 5 MG TABLET PO ×2 (09:01→22:07)
[2023-07-02] MEDS: Pantoprazole Sodium 40 MG Tablet PO ×2 (09:01→22:10)
[2023-07-02] MEDS: Ferrous Sulfate 325 MG Tablet PO (11:57)
[2023-07-02] MEDS: Ascorbic Acid 500 MG Tablet 1000 MG PO (11:57)
[2023-07-02] MEDS: oxyCODONE 5 MG Tablet PO (13:19)
[2023-07-02 14:00] VITALS: BP 101/49; PULSE 72; RESP 16; TEMP 36.9; O2SAT 99
[2023-07-02 22:00] VITALS: BP 140/68; PULSE 87; RESP 18; TEMP 36.6; O2SAT 99
[2023-07-02] MEDS: Atorvastatin Calcium 40 MG Tablet PO (22:09)
[2023-07-02 22:15] VITALS: BP 140/68; PULSE 87
[2023-07-03] VITALS (8 sets, daily range): BP systolic 87–153; BP diastolic 45–77; PULSE 67–87; RESP 16–18; TEMP 36.6–36.8; O2SAT 99
[2023-07-03] MEDS: Acetaminophen 500 MG Tablet 1000 MG PO ×3 (06:41→21:44)
[2023-07-03] MEDS: carBAMazepine 200 MG Tablet PO ×3 (06:41→21:39)
[2023-07-03] MEDS: Levothyroxine 50 MCG Tablet PO (06:42)
[2023-07-03] MEDS: Menthol/Lanolin/Calamine/Znox 113 GM Tube 1 APPLIC TOPICAL ×3 (06:43→21:46)
[2023-07-03] MEDS: oxyCODONE 5 MG Tablet PO (06:46)
[2023-07-03] MEDS: 0.9% Saline Lock 10 ML Syringe IV ×2 (06:48→21:50)
[2023-07-03] MEDS: APIXABAN 5 MG TABLET PO ×2 (08:36→21:43)
[2023-07-03] MEDS: Tamsulosin HCl 0.4 MG Capsule PO ×2 (08:36→21:43)
[2023-07-03] MEDS: Magnesium Chloride 64 MG Delay Rel.Tablet 128 MG PO ×2 (08:36→21:43)
[2023-07-03] MEDS: Pantoprazole Sodium 40 MG Tablet PO ×2 (08:36→21:44)
[2023-07-03] MEDS: Senna/Docusate Sodium 1 Tablet 2 TABLET PO ×2 (08:37→21:44)
[2023-07-03] MEDS: dilTIAZem CD 240 MG Capsule PO (10:16)
[2023-07-03] MEDS: Lisinopril 5 MG Tablet PO ×2 (10:16→21:44)
[2023-07-03] MEDS: hydrALAZINE 25 MG Tablet PO ×2 (10:17→21:43)
[2023-07-03] MEDS: Ferrous Sulfate 325 MG Tablet PO (12:08)
[2023-07-03] MEDS: Ascorbic Acid 500 MG Tablet 1000 MG PO (12:08)
[2023-07-03] MEDS: Atorvastatin Calcium 40 MG Tablet PO (21:43)
[2023-07-04 06:00] VITALS: BP 159/78; PULSE 88; RESP 17; TEMP 36.6; O2SAT 97
[2023-07-04] MEDS: Acetaminophen 500 MG Tablet 1000 MG PO ×3 (06:13→21:10)
[2023-07-04] MEDS: oxyCODONE 5 MG Tablet PO (06:13)
[2023-07-04] MEDS: carBAMazepine 200 MG Tablet PO ×3 (06:14→21:09)
[2023-07-04] MEDS: Menthol/Lanolin/Calamine/Znox 113 GM Tube 1 APPLIC TOPICAL ×3 (06:15→21:10)
[2023-07-04] MEDS: Levothyroxine 50 MCG Tablet PO (06:16)
[2023-07-04] MEDS: Lisinopril 5 MG Tablet PO ×2 (08:29→21:09)
[2023-07-04] MEDS: Magnesium Chloride 64 MG Delay Rel.Tablet 128 MG PO ×2 (08:29→21:10)
[2023-07-04] MEDS: Pantoprazole Sodium 40 MG Tablet PO ×2 (08:29→21:09)
[2023-07-04 08:30] VITALS: PULSE 70
[2023-07-04] MEDS: APIXABAN 5 MG TABLET PO ×2 (08:30→21:09)
[2023-07-04] MEDS: dilTIAZem CD 240 MG Capsule PO (08:30)
[2023-07-04] MEDS: hydrALAZINE 25 MG Tablet PO ×2 (08:30→21:09)
[2023-07-04] MEDS: Senna/Docusate Sodium 1 Tablet 2 TABLET PO ×2 (08:30→21:09)
[2023-07-04] MEDS: Tamsulosin HCl 0.4 MG Capsule PO ×2 (08:31→21:09)
--- NOTE | 2023-07-04 09:00 | RAD_ITS ---
STUDY: X-RAY - PELVIS AND RIGHT HIP REASON FOR EXAM: Male, 83 years old. Postop follow-up TECHNIQUE: 3 views of the pelvis and hip. COMPARISON: 06/17/2023 FINDINGS: Follow-up from open reduction internal fixation to stabilize and reduce a intertrochanteric fracture of the right femur. Alignment at the fracture site is anatomic, there has been some healing since the previous study, follow-up recommended to assure complete osseous union. No hardware complication or failure. Age consistent degenerative changes in the left hip and SI joints. RAD/HIP, UNI W/ Pelvis 2-3 Views IMPRESSION: Anatomic alignment of the reduced intertrochanteric fracture of the right femur. Some healing has occurred since the previous study, follow-up recommended to ensure complete osseous union No hardware complication or failure Electronically Signed: Ignacio Natarajan MD at 14:39 EDT ,
[2023-07-04] MEDS: Ascorbic Acid 500 MG Tablet 1000 MG PO (13:07)
[2023-07-04] MEDS: Ferrous Sulfate 325 MG Tablet PO (13:07)
[2023-07-04 14:00] VITALS: BP 111/46; PULSE 62
--- NOTE | 2023-07-04 15:38 | NURSING ---
Xray report faxed to Dr. Sifuentes's office per order today at [phone] with confirmation it was sent.
[2023-07-04 21:05] VITALS: BP 140/72; PULSE 74; RESP 17; TEMP 36.4; O2SAT 97
[2023-07-04 21:09] VITALS: BP 140/72; PULSE 74
[2023-07-04] MEDS: Atorvastatin Calcium 40 MG Tablet PO (21:09)
[2023-07-05] VITALS (7 sets, daily range): BP systolic 130–159; BP diastolic 54–76; PULSE 68–87; RESP 16; TEMP 36.3–36.6; O2SAT 98–99
[2023-07-05] MEDS: Levothyroxine 50 MCG Tablet PO (05:58)
[2023-07-05] MEDS: Acetaminophen 500 MG Tablet 1000 MG PO ×3 (05:58→21:34)
[2023-07-05] MEDS: 0.9% Saline Lock 10 ML Syringe IV (05:58)
[2023-07-05] MEDS: carBAMazepine 200 MG Tablet PO ×3 (05:58→21:34)
[2023-07-05] MEDS: Menthol/Lanolin/Calamine/Znox 113 GM Tube 1 APPLIC TOPICAL ×3 (05:59→21:35)
[2023-07-05] MEDS: Lisinopril 5 MG Tablet PO ×2 (08:01→21:32)
[2023-07-05] MEDS: Senna/Docusate Sodium 1 Tablet 2 TABLET PO ×2 (08:01→21:34)
[2023-07-05] MEDS: APIXABAN 5 MG TABLET PO ×2 (08:01→21:33)
[2023-07-05] MEDS: dilTIAZem CD 240 MG Capsule PO (08:01)
[2023-07-05] MEDS: Tamsulosin HCl 0.4 MG Capsule PO ×2 (08:01→21:33)
[2023-07-05] MEDS: Magnesium Chloride 64 MG Delay Rel.Tablet 128 MG PO ×2 (08:01→21:33)
[2023-07-05] MEDS: Pantoprazole Sodium 40 MG Tablet PO ×2 (08:01→21:34)
[2023-07-05] MEDS: hydrALAZINE 25 MG Tablet PO ×2 (08:01→21:34)
[2023-07-05] MEDS: Ascorbic Acid 500 MG Tablet 1000 MG PO (13:04)
[2023-07-05] MEDS: Ferrous Sulfate 325 MG Tablet PO (13:04)
[2023-07-05] MEDS: Atorvastatin Calcium 40 MG Tablet PO (21:33)
[2023-07-06] MEDS: Acetaminophen 500 MG Tablet 1000 MG PO ×3 (04:52→21:54)
[2023-07-06] MEDS: Levothyroxine 50 MCG Tablet PO (04:52)
[2023-07-06] MEDS: Menthol/Lanolin/Calamine/Znox 113 GM Tube 1 APPLIC TOPICAL ×3 (04:54→21:57)
[2023-07-06] MEDS: oxyCODONE 5 MG Tablet PO ×2 (04:57→11:10)
[2023-07-06] MEDS: carBAMazepine 200 MG Tablet PO ×3 (04:57→21:55)
[2023-07-06 06:00] VITALS: BP 134/78; PULSE 72; RESP 16; TEMP 36.4; O2SAT 98
[2023-07-06] MEDS: 0.9% Saline Lock 10 ML Syringe IV (06:46)
[2023-07-06 08:22] VITALS: BP 132/78; PULSE 72
[2023-07-06] MEDS: hydrALAZINE 25 MG Tablet PO ×2 (08:22→21:54)
[2023-07-06] MEDS: Magnesium Chloride 64 MG Delay Rel.Tablet 128 MG PO ×2 (08:22→21:55)
[2023-07-06] MEDS: Tamsulosin HCl 0.4 MG Capsule PO ×2 (08:22→21:55)
[2023-07-06] MEDS: APIXABAN 5 MG TABLET PO ×2 (08:22→21:55)
[2023-07-06] MEDS: Senna/Docusate Sodium 1 Tablet 2 TABLET PO ×2 (08:23→21:54)
[2023-07-06] MEDS: dilTIAZem CD 240 MG Capsule PO (08:23)
[2023-07-06] MEDS: Lisinopril 5 MG Tablet PO ×2 (08:23→12:35)
[2023-07-06] MEDS: Pantoprazole Sodium 40 MG Tablet PO ×2 (08:23→21:55)
[2023-07-06 08:38] VITALS: BMI 26.0
[2023-07-06] MEDS: Ascorbic Acid 500 MG Tablet 1000 MG PO ×2 (11:10)
--- NOTE | 2023-07-06 11:13 | PN_ITS ---
Subjective Subjective Afebrile VSS -systolic blood pressure is more often than not elevated and over the past 2 days has ranged from 130/62 to 159/76. Heart rate is within normal limits. Maintaining appropriate oxygen saturation on RA-98 to 99% Oral intake - FOOD good FLUIDS good Discussed with nursing - no problems that need addressed. Had been constipated but had a bowel movement yesterday and a bowel movement today. He is taking ferrous sulfate 325 mg daily which is likely contributing to constipation. So does the oxycodone. He is on senna 2 tablets twice daily for stool softener. Reviewed the THERAPY notes Medication list reviewed. Antihypertensives include lisinopril 5 mg twice daily, hydralazine 25 mg twice daily, diltiazem 240 mg daily. Has been taking oxycodone 1-2 times daily for pain control. Denies lightheadedness, chest pain, shortness of breath, cough, nausea/vomiting/abdominal pain, suprapubic pain and calf pain. Objective Data Objective Data Vital Signs: Vital Signs Temp Pulse Resp BP Pulse Ox O2 Del Method 97.6 F L 72 16 132/78 H 98 Room Air 07/06/23 06:00 07/06/23 08:22 07/06/23 06:00 07/06/23 08:22 07/06/23 06:00 07/06/23 06:00 Oxygen Delivery Method Room Air Weight: 182 lb Body Mass Index (BMI) 26.0 Intake & Output: Intake and Output for Last 24 Hours 07/04/23 07/05/23 07/06/23 23:59 23:59 23:59 Intake Total 3510 / 3510 2200 / 2200 480 / 480 Output Total 2100 / 2100 3300 / 3300 1999 / 1999 Balance 1410 / 1410 -1100 / -1100 -1520 / -1520 Lab / Micro Data 07/07/23 07:05 07/07/23 07:05 Micro: Microbiology 06/29/23 15:28 Urine Catheter - Catheter Urine Culture - Final Staphylococcus epidermidis Physical Exam Const alert and no apparent distress General Appearance: cooperative Resp clear to auscultation bilaterally Effort and Inspection: Negative for tachypneic Cardio no gallops Cardio Narrative: Irregular irregular rhythm with controlled ventricular response. Has known chronic atrial fibrillation. GI normal to inspection, nondistended, normoactive bowel sounds, soft to palpation and non-tender GI Narrative: No guarding with palpation. Bowel sounds are not hyperactive. Extremity no calf tenderness Extremity Narrative: [place] hose are now in place and the edema of the distal lower extremities is improved. He has only a trace of edema in his ankles today. Skin General Skin Exam: no breakdown Rashes: no rashes Wound Narrative: The laceration above the right eye is healing with no dehiscence, no erythema and no purulent discharge. The hip incisions are healing well with no dehiscence, no shreya-incisional erythema and no discharge. Assessment & Plan Assessment/Plan (1) Debility: (2) S/P right hip fracture: (3) History of open reduction and internal fixation (ORIF) procedure: (4) Acute on chronic anemia: (5) Acute GI bleeding: (6) Symptomatic anemia: (7) Generalized weakness: PLAN: Plan 1. Continue therapy 2. Add MiraLAX 17 g daily to the current drug regimen 3. Increase lisinopril to 10 mg twice daily 4. Check a CBC with no differential, magnesium and a BMP in the a.m. I got a VM from Margaret's dtr, Joanne, requesting that he be discharged a day or 2 prior to July 12. She is leaving to go out of town on July 13 and would like to be around for the first 2 days Margaret is home. She also wants to view the XRAYS done in the hospital......of the hip fracture. She also wants to know if Margaret can have the same [facility] nurse as he had prior to the recent fall and fracture. Will discuss with the SW. Charges/Coding Visit Charges Inpatient E&M: 28734 Subs Hosp L1
[2023-07-06] MEDS: Ferrous Sulfate 325 MG Tablet PO (12:35)
[2023-07-06 14:00] VITALS: BP 137/68; PULSE 66
--- NOTE | 2023-07-06 16:36 | CASEMGMT ---
Addendum entered by Ronnell Bean 07/06/23 17:27: Referral to [facility] Completed. Original Note: Social Work SW received a voicemail from patient's daughter requesting for Financial Power of [employer] paperwork. Patient's daughter informed SW that the patient has advanced directive for health advocate and living will completed. Daughter is requesting for Financial Power of [employer] to complete with patient. SW does not have access to Financial paperwork. SW received notification that the patient's daughter is requesting to discharge prior to 07/12. Team discussed and recommended for discharge on Wednesday, 07/10. SW met with patient at bedside to discuss current recommendations for discharge. Patient informed SW that he would like to discharge with family and home health care services. The patient discussed home health care services with patient. Patient is agreeable to PT/OT/STONE CLEANER/SN services. Patient informed SW that he had home health care services in the past, but he was unable to remember name of provider. Upon review of medical charts, the patient had [facility] services in the past. SW submitted a phone referral to [facility] for PT/OT/SN/STONE CLEANER. SW discussed referral for [facility]. Patient awaiting follow up from [facility] for acceptance. JERMAIN Hernández
[2023-07-06 21:50] VITALS: BP 162/75
[2023-07-06 21:54] VITALS: BP 162/75; PULSE 85
[2023-07-06] MEDS: Lisinopril 10 MG Tablet PO (21:54)
[2023-07-06] MEDS: Atorvastatin Calcium 40 MG Tablet PO (21:55)
[2023-07-06 22:00] VITALS: BP 137/68; PULSE 66; RESP 18; TEMP 36.8; O2SAT 100
[2023-07-07] MEDS: Levothyroxine 50 MCG Tablet PO (05:24)
[2023-07-07] MEDS: carBAMazepine 200 MG Tablet PO ×3 (05:25→20:46)
[2023-07-07] MEDS: Acetaminophen 500 MG Tablet 1000 MG PO ×3 (05:25→20:46)
[2023-07-07] MEDS: Menthol/Lanolin/Calamine/Znox 113 GM Tube 1 APPLIC TOPICAL ×3 (05:27→20:47)
[2023-07-07] MEDS: 0.9% Saline Lock 10 ML Syringe IV (05:30)
[2023-07-07 05:33] VITALS: BP 162/76; PULSE 82
[2023-07-07 07:30] LABS: Hemoglobin 9.6 g/dL (13.0-16.5); Mean Corpuscular Volume 93.7 fL (80-94); Mean Platelet Vol. 8.4 fl (6.2-12.0); Platelet Count 293 K/mm3 (150-450); RBC Distribution Width CV 17.6 % (11.6-14.6); RBC Distribution Width SD 59.9 fl (35.1-43.9); Red Blood Count 3.31 M/mm3 (4.6-6.2); White Blood Count 5.4 K/mm3 (4.4-11.0)
[2023-07-07 07:55] LABS: Anion Gap 6 (5-15); BUN 12 mg/dL (7-18); BUN/Creat Ratio 24.2 RATIO (10-20); Calcium,Total 9.6 mg/dL (8.5-10.1); Chloride 107 mmol/L (98-107); EST Glomerular Filtration Rate 171 mL/min (>60); Est Glom Filt Rate - Afr Amer 207 mL/min (>60); Estimated Creatinine Clearance 73.51 ml/min; Glucose 116 mg/dL (74-106); Potassium 3.7 mmol/L (3.5-5.1); Sodium Level 139 mmol/L (136-145)
[2023-07-07] MEDS: Magnesium Chloride 64 MG Delay Rel.Tablet 128 MG PO ×2 (10:43→20:46)
[2023-07-07] MEDS: dilTIAZem CD 240 MG Capsule PO (10:43)
[2023-07-07] MEDS: Tamsulosin HCl 0.4 MG Capsule PO ×2 (10:43→20:46)
[2023-07-07] MEDS: APIXABAN 5 MG TABLET PO ×2 (10:43→20:47)
[2023-07-07] MEDS: Lisinopril 10 MG Tablet PO ×2 (10:44→20:46)
[2023-07-07] MEDS: Pantoprazole Sodium 40 MG Tablet PO ×2 (10:44→20:46)
[2023-07-07] MEDS: Senna/Docusate Sodium 1 Tablet 2 TABLET PO ×2 (10:44→20:45)
[2023-07-07 10:45] VITALS: PULSE 76
[2023-07-07] MEDS: hydrALAZINE 25 MG Tablet PO ×2 (10:45→20:47)
[2023-07-07] MEDS: Ferrous Sulfate 325 MG Tablet PO (11:58)
[2023-07-07 14:00] VITALS: BP 128/52; PULSE 71
--- NOTE | 2023-07-07 14:13 | CASEMGMT ---
Addendum entered by Ronnell Bean 07/07/23 16:18: SW met with patient at bedside to review discharge disposition. Patient is agreeable to discharge plans to transition home with home health care services on 07/11/2023. Patient denies any concerns at this time. SW will continue to follow to support discharge. Discharge: Home with [facility] PT/OT/SN/SWIMMING COACH OR INSTRUCTOR and [facility]- Referral Original Note: Social Work SW received notification from [facility] that the patient has been accepted for home health care services; SOC 07/11 and 07/12. Discharge: Home with [facility] PT/OT/SN/SWIMMING COACH OR INSTRUCTOR and [facility]- Referral JERMAIN Hernández
[2023-07-07 20:40] VITALS: BP 154/68; PULSE 92
[2023-07-07] MEDS: Atorvastatin Calcium 40 MG Tablet PO (20:45)
[2023-07-07 20:47] VITALS: BP 154/68; PULSE 92
[2023-07-07 22:14] VITALS: BP 148/78; PULSE 63; RESP 16; TEMP 36.6; O2SAT 99
[2023-07-08 06:00] VITALS: BP 157/66; PULSE 73; RESP 16; TEMP 36.4; O2SAT 98
[2023-07-08] MEDS: Acetaminophen 500 MG Tablet 1000 MG PO ×3 (06:16→21:38)
[2023-07-08] MEDS: carBAMazepine 200 MG Tablet PO ×3 (06:16→21:38)
[2023-07-08] MEDS: Menthol/Lanolin/Calamine/Znox 113 GM Tube 1 APPLIC TOPICAL ×2 (06:16→21:37)
[2023-07-08] MEDS: Levothyroxine 50 MCG Tablet PO (06:16)
[2023-07-08] MEDS: dilTIAZem CD 240 MG Capsule PO (08:09)
[2023-07-08] MEDS: Tamsulosin HCl 0.4 MG Capsule PO ×2 (08:09→21:39)
[2023-07-08 08:10] VITALS: PULSE 73
[2023-07-08] MEDS: Magnesium Chloride 64 MG Delay Rel.Tablet 128 MG PO ×2 (08:10→21:39)
[2023-07-08] MEDS: Lisinopril 10 MG Tablet PO ×2 (08:10→21:38)
[2023-07-08] MEDS: Pantoprazole Sodium 40 MG Tablet PO ×2 (08:10→21:39)
[2023-07-08] MEDS: APIXABAN 5 MG TABLET PO ×2 (08:10→21:37)
[2023-07-08] MEDS: hydrALAZINE 25 MG Tablet PO ×2 (08:10→21:44)
[2023-07-08] MEDS: Senna/Docusate Sodium 1 Tablet 2 TABLET PO ×2 (08:11→21:39)
--- NOTE | 2023-07-08 10:06 | NURSING ---
Reviewed younger leg bag with pt and applied bag to leg. Will need re-enforcement before d/c.
[2023-07-08] MEDS: Ferrous Sulfate 325 MG Tablet PO (11:52)
[2023-07-08] MEDS: Ascorbic Acid 500 MG Tablet 1000 MG PO (11:52)
--- NOTE | 2023-07-08 11:58 | PCM.PROGNOTE ---
Subjective Subjective Margaret was seen on team rounds today. His daughter Joanne was not available to be with us on rounds today. I will call her this afternoon and update her. Afebrile VSS -systolic blood pressure remains uncontrolled. The systolic most often ranges from 1 45-1 65. Diastolics are always within goal. Heart rate is within normal limits. Maintaining appropriate oxygen saturation on RA-98 to 100%. Oral intake - FOOD good FLUIDS good Discussed with nursing - no problems that need addressed. Intermittently constipated and requiring laxatives. Last bowel movement was 07/06/2023. He is on senna 2 tablets twice daily Reviewed the THERAPY notes Medication list reviewed. The last oxycodone he took was on 07/06/2023 at 11 AM. All lab work was personally reviewed. The white blood cell count is normal at 5.4. Hemoglobin is 9.6, up from 8.9 on 06/29/2023. Platelets are within normal limits. Sodium is 139 and the potassium is 3.7. Serum bicarb is normal. The BUN is 12 with a creatinine of 0.5. The BUNs/creatinine ratio is 24.2, down from 48.6 on 06/29/2023. Magnesium is normal at 2.0 fasting glucose is mildly increased at 116. Hemoglobin A1c a little over a year ago was mildly increased at 5.8 consistent with glucose intolerance. Urine output sometimes significantly exceeds intake. Margaret denies cephalgia, lightheadedness, palpitations, chest pain, shortness of breath, cough, nausea/vomiting/abdominal pain, suprapubic pain, flank pain and calf tenderness. He did recently have some constipation. Objective Data Objective Data Vital Signs: Vital Signs Temp Pulse Resp BP Pulse Ox O2 Del Method 97.6 F L 73 16 157/66 H 98 Room Air 07/08/23 06:07/08/23 08:10 07/08/23 06:00 07/08/23 06:00 07/08/23 06:00 07/08/23 06:00 Oxygen Delivery Method Room Air Weight: 182 lb Body Mass Index (BMI) 26.0 Intake & Output: Intake and Output for Last 24 Hours 07/06/23 07/07/23 07/08/23 23:59 23:59 23:59 Intake Total 2059 / 1959 480 / 480 Output Total 1999 3875 / 4775 3900 / 3900 Balance 60 / -1340 -1915 / -2815 -3420 / -3420 Lab / Micro Data 07/07/23 07:05 07/07/23 07:05 Micro: Microbiology 06/29/23 15:28 Urine Catheter - Catheter Urine Culture - Final Staphylococcus epidermidis Physical Exam Const alert and no apparent distress Constitutional Narrative: He is tearful today. His daughter called him and told him that her son had an accident at work and is being life flighted to a hospital. He is obviously worried. He is generally pretty emotional all of the time. He cries very easily. He has not been depressed and he is looking forward to going home. Resp Resp Narrative: Clear to auscultation anterior and lateral. Not tachypneic, no labored breathing. Cardio no murmurs, no rub and no gallops Cardio Narrative: Irregular irregular rhythm with controlled ventricular response. GI normal to inspection, nondistended, normoactive bowel sounds, soft to palpation and non-tender GI Narrative: No guarding with palpation Extremity no calf tenderness Skin Rashes: no rashes Wound Narrative: The right periorbital bruising is nearly gone. The laceration above the right eyebrow is healing with no dehiscence, no erythema and no purulent discharge. He denies pain. Assessment & Plan Assessment/Plan (1) Debility: (2) S/P right hip fracture: (3) History of open reduction and internal fixation (ORIF) procedure: (4) Acute on chronic anemia: (5) Acute GI bleeding: (6) Symptomatic anemia: (7) Current use of detention anticoagulation: (8) Generalized weakness: (9) Colonization with drug-resistant bacteria: (10) Urine retention: PLAN: This is chronic. He has had a urinary tract infection related to urinary retention in the past 2 months. Justin catheter is currently in place and he will go home with a catheter. Nursing is teaching him how to manage a leg bag. PLAN: Plan 1. Continue therapy 2. Add Metamucil 1 packet twice daily to the current drug regimen. 3. I called his dtr after rounds but, there was no answer and her VM has not been set up. Charges/Coding Visit Charges Inpatient E&M: 22872 Subs Hosp L2
[2023-07-08 13:32] LABS: Hemoglobin A1c 4.9 % (3.8-5.6)
--- NOTE | 2023-07-08 13:35 | CASEMGMT ---
Social Work- Teams Meeting Patient informed staff that daughter, Joanne was unable to attend meeting for care plan. Joanne is currently in hospital with her son. Patient was tearful during notification. IDT met with patient at bedside to complete care plan meeting. Discussed patient progress with therapy. Patient continues to make progress with therapy. Patient continues to maintain training for younger care prior to discharge home. SW reviewed discharge plans for home health care via [facility] PT/OT/SN/CLINICAL NURSE LEADER and [facility] referral for additional support. JERMAIN Hernández
[2023-07-08 14:00] VITALS: BP 143/55; PULSE 70
[2023-07-08] MEDS: Atorvastatin Calcium 40 MG Tablet PO (21:38)
[2023-07-08] MEDS: Psyllium 1 PACKET PO (21:39)
[2023-07-08 21:44] VITALS: BP 147/73; PULSE 64
[2023-07-08] MEDS: 0.9% Saline Lock 10 ML Syringe IV (21:45)
[2023-07-08 21:49] VITALS: BP 147/73; PULSE 64; RESP 16; TEMP 36.6; O2SAT 95
[2023-07-09] MEDS: Levothyroxine 50 MCG Tablet PO (05:29)
[2023-07-09] MEDS: carBAMazepine 200 MG Tablet PO ×3 (05:29→20:06)
[2023-07-09] MEDS: Acetaminophen 500 MG Tablet 1000 MG PO ×3 (05:30→20:05)
[2023-07-09] MEDS: Menthol/Lanolin/Calamine/Znox 113 GM Tube 1 APPLIC TOPICAL ×2 (05:54→20:04)
[2023-07-09 05:57] VITALS: BP 155/72; PULSE 73; RESP 16; TEMP 36.7; O2SAT 98
[2023-07-09 08:04] VITALS: BP 143/75; PULSE 78
[2023-07-09] MEDS: Magnesium Chloride 64 MG Delay Rel.Tablet 128 MG PO ×2 (08:04→20:03)
[2023-07-09] MEDS: Pantoprazole Sodium 40 MG Tablet PO ×2 (08:04→20:03)
[2023-07-09] MEDS: Tamsulosin HCl 0.4 MG Capsule PO ×2 (08:04→20:05)
[2023-07-09] MEDS: dilTIAZem CD 240 MG Capsule PO (08:04)
[2023-07-09] MEDS: hydrALAZINE 25 MG Tablet PO ×2 (08:04→20:04)
[2023-07-09] MEDS: Psyllium 1 PACKET PO (08:05)
[2023-07-09] MEDS: APIXABAN 5 MG TABLET PO ×2 (08:05→20:03)
[2023-07-09] MEDS: Lisinopril 10 MG Tablet PO ×2 (08:05→20:06)
[2023-07-09] MEDS: Senna/Docusate Sodium 1 Tablet 2 TABLET PO (08:06)
[2023-07-09] MEDS: Ascorbic Acid 500 MG Tablet 1000 MG PO (11:42)
[2023-07-09] MEDS: Ferrous Sulfate 325 MG Tablet PO (11:42)
[2023-07-09 14:47] VITALS: BP 130/58; PULSE 68; RESP 16; TEMP 36.5; O2SAT 99
[2023-07-09 20:00] VITALS: BP 144/72; PULSE 69; RESP 18; TEMP 36.6; O2SAT 99
[2023-07-09 20:04] VITALS: BP 144/72; PULSE 69
[2023-07-09] MEDS: Atorvastatin Calcium 40 MG Tablet PO (20:05)
[2023-07-10] VITALS (7 sets, daily range): BP systolic 124–141; BP diastolic 55–78; PULSE 61–74; RESP 15–18; TEMP 36.4–36.6; O2SAT 94–99
[2023-07-10] MEDS: carBAMazepine 200 MG Tablet PO ×3 (05:30→21:32)
[2023-07-10] MEDS: Acetaminophen 500 MG Tablet 1000 MG PO ×3 (05:30→21:32)
[2023-07-10] MEDS: Menthol/Lanolin/Calamine/Znox 113 GM Tube 1 APPLIC TOPICAL ×3 (05:31→21:36)
[2023-07-10] MEDS: Levothyroxine 50 MCG Tablet PO (05:31)
[2023-07-10] MEDS: hydrALAZINE 25 MG Tablet PO ×2 (08:25→21:35)
[2023-07-10] MEDS: dilTIAZem CD 240 MG Capsule PO (08:25)
[2023-07-10] MEDS: Lisinopril 10 MG Tablet PO ×2 (08:25→21:35)
[2023-07-10] MEDS: APIXABAN 5 MG TABLET PO ×2 (08:25→21:36)
[2023-07-10] MEDS: Magnesium Chloride 64 MG Delay Rel.Tablet 128 MG PO ×2 (08:25→21:33)
[2023-07-10] MEDS: Pantoprazole Sodium 40 MG Tablet PO ×2 (08:25→21:34)
[2023-07-10] MEDS: Tamsulosin HCl 0.4 MG Capsule PO ×2 (08:26→21:32)
--- NOTE | 2023-07-10 09:35 | DCINST_ITS ---
Discharge Instructions Diet Discharge Diet: No restrictions Activity Discharge Activity: May Not Drive and Use Walker Weight Bearing Status: Full weight bearing Keep extremity elevated above heart level: Legs Dressing / Incision Call your doctor if your incision/area has: Continuous Slow Oozing, Sudden Increased Bleeding, Increased Pain/ Swelling, Increased Redness, Foul Smelling Discharge and Swelling at the incision site Call your doctor if you observe: Fever of 101 or Higher, Shortness of breath, Dizziness, Fainting spells, Swelling in the ankles, Chest pain, Increased palpitations (irregular heartbeat), Calf discomfort, Uncontrolled pain and - (CAll your PCP if any night sweats, change in mental status, shaking chills, nausea/vomiting, foul smelling urine, blood in the urine. These can be signs of a urinary tract infection. ) Suture Line Care: Avoid Pulling/Pushing, Avoid Pinching/Bending and - (Call Dr. Sifuentes if there is any discharge from the surgical incisions or any increasing redness around the incision. ) Cleanse incision/area with: Soap & Water and - (No dressing is needed on the incisions. If your clothing is irritation the incision you may cover with a dry dressing. ) Catheter: Justin to leg bag Follow Up Care Please Follow Up With: Ignacio Sifuentes MD When: you will also need to follow up with Dr. Rodriguez and with Dr. Brady. Test Results: Test results from this visit will be discussed in further detail at your follow- up appointment, if applicable. Pending Tests Upon Discharge: none Discharge Plan Admission Admit Date/Time: 06/28/23 13:36 Primary Reason for Your Visit: Debility due to GIB and recent hip fracture. Attending Provider: Brandee Monterroso Primary Care Provider: Jolly Brady Instructions Additional Instructions / Restrictions: 1. Your blood count has been improving while you have been on rehab. The hemoglobin(HGB) has improved from 8.9 to 9.6. HGB is a component of the red blood cell. We checked your iron level and it is good so you did not need any intravenous iron at this visit. I am going to send you home on an iron supplement to keep the iron within normal limits. 2. You still have a large amount of urine in the bladder after you urinate. This can lead to urinary tract infections and kidney failure. Having a Justin catheter in can also lead to infections. I have listed in your instructions the symptoms of a urinary tract infection. If you have any of these symptoms call Dr. Brady. 3. You really need to cut back on some of the things you are doing because you are putting your self at risk for falls and more broken bones. Walking outside on uneven ground when you have poor balance increases your risk for falls. At your age it will take 8-12 weeks for the hip to heal. I think you should stay off the mower and out of the barn for the next 3 months to allow your body to heal. If you want to be able to stay in your home and take care of your you need to take better care of yourself and have better safety awareness. 4. If you or Joanne have any questions after you leave rehab please do not hesitate to call me. OFFICE: [phone] CELL: [phone] Discharge Orders/Prescriptions Prescriptions: New lisinopril 10 mg Tablet 10 mg PO BID Qty: 60 0RF sennosides-docusate sodium [Stool Softener-Stimulant Laxat] 8.6-50 mg Tablet 2 tab PO BID Qty: 120 0RF pantoprazole 40 mg Tablet,Delayed Release (Dr/Ec) 40 mg PO BID Qty: 60 0RF ascorbic acid (vitamin C) 500 mg Tablet 1,000 mg PO LUNCH Qty: 30 0RF Rx Instructions: take the ascorbic acid and the ferrous sulfate at the same time daily......with a meal. Continued levothyroxine 50 mcg Tablet 50 mcg PO DAILY@0600 Qty: 30 0RF atorvastatin [Lipitor] 40 mg tablet 40 mg PO QHS Qty: 30 0RF diltiazem HCl 240 mg capsule,extended release 24hr 240 mg PO DAILY Qty: 30 3RF apixaban 5 mg tablet 5 mg PO BID Qty: 60 0RF magnesium oxide 400 mg magnesium tablet 400 mg PO BID Qty: 60 0RF tamsulosin 0.4 mg Capsule 0.4 mg PO BID ferrous sulfate [Feosol] 325 mg (65 mg iron) tablet 325 mg PO DAILY Qty: 30 0RF oxycodone 5 mg Tablet 5 mg PO Q4H PRN (Reason: pain) 7 Days Qty: 14 0RF hydralazine 25 mg tablet 25 mg PO BID Qty: 180 3RF carbamazepine [Tegretol] 200 mg tablet 200 mg PO TID Qty: 90 1RF Patient Comments: 1st dose taken today 06/16 Changed acetaminophen 500 mg Tablet 1,000 mg PO Q8H PRN (Reason: fever or pain) Qty: 180 0RF Rx Instructions: Take Tylenol every 8 hours as need for pain or fever. Discontinued lisinopril 5 mg tablet 5 mg PO BID Qty: 60 5RF No Action sennosides-docusate sodium [Stool Softener-Stimulant Laxat] 8.6-50 mg Tablet 2 tab PO BID Qty: 120 3RF Referrals / Follow Up: Kirk Vasquez MD [Med Staff - Active Staff] - (call office on Wednesday and make appointment they are expecting your call. let them know you were in the hospital.) Jolly Brady MD [Primary Care Provider] - 07/14/23 10:30 am Asher Rodriguez DO [Med Staff - Active Staff] - 07/22/23 11:00 am Disposition Disposition (needs filled in before D/C Order can be placed): Home Health Service
--- NOTE | 2023-07-10 09:44 | EKG12_ITS ---
Test Reason : CHEST PRESSURE Blood Pressure : / mmHG Vent. Rate : 067 BPM Atrial Rate : 000 BPM P-R Int : 000 ms QRS Dur : 086 ms QT Int : 382 ms P-R-T Axes : 000 070 040 degrees QTc Int : 403 ms Atrial fibrillation Minimal voltage criteria for LVH, may be normal variant ( Sokolow-Rankin ) Abnormal ECG Confirmed by Pepito Cooper [id number]), editor house organ CUCA MAZARIEGOS ([id number]) on 07/12/2023 9:27:18 AM Referred By: MONIKA Confirmed By:Pepito Cooper
--- NOTE | 2023-07-10 10:08 | NURSING ---
pt c/o chest pressure. denies CP or SOB. VS WNL. EKG complete. Dr Monterroso aware. NNO
--- NOTE | 2023-07-10 10:28 | PCM.DC.SUM ---
Providers Date of Admission: 06/28/23 Date of Discharge: 07/11/23 Primary Care Physician: Dr. Jolly Brady MD Reason For Visit: Debility due to hip fracture and acute upper GIB Diagnosis Discharge Diagnosis (1) Debility: Status: Acute Code(s): R53.81 - Other malaise (2) S/P right hip fracture: Status: Inactive Code(s): Z87.81 - Personal history of (healed) traumatic fracture (3) History of open reduction and internal fixation (ORIF) procedure: Status: Inactive Code(s): Z98.890 - Other specified postprocedural states Plan: 06/19/2023 had open reduction internal fixation with a cephalomedullary nail in the right hip (4) Acute on chronic anemia: Status: Acute Code(s): D64.9 - Anemia, unspecified Plan: Acute anemia requiring transfusion due to GI bleed. EGD was negative for source of bleeding. He is to have colonoscopy following DC from rehab. Has a appt with Dr. Rodriguez scheduled. HGB is stable at the time of Dc from rehab and in fact has improved from 8.9-9.6 while on rehab. Iron saturation was within normal limits when tested. (5) Acute GI bleeding: Status: Inactive Code(s): K92.2 - Gastrointestinal hemorrhage, unspecified Plan: EGD showed no source of bleeding. He has an appointment to follow-up with Dr. Rodriguez to schedule colonoscopy. (6) Symptomatic anemia: Status: Resolved Code(s): D64.9 - Anemia, unspecified (7) Generalized weakness: Status: Acute Code(s): R53.1 - Weakness (8) Current use of skilled nursing anticoagulation: Status: Chronic Code(s): Z79.01 - residential (current) use of anticoagulants Plan: Apixaban has been restarted and he is tolerating this medication without recurrent GI bleeding. Hemoglobin is stable at 9.6. (9) Colonization with drug-resistant bacteria: Status: Acute Code(s): Z22.39 - Carrier of other specified bacterial diseases Plan: Urinary tract is colonized with MRSE. No antibiotic treatment was necessary. He has been afebrile and asymptomatic since admission to rehab with a normal white blood cell count. (10) Urine retention: Status: Chronic Code(s): R33.9 - Retention of urine, unspecified Plan: This is chronic. He has had a urinary tract infection related to urinary retention in the past 2 months due to MRSA. Justin catheter is currently in place and he will go home with a catheter. Nursing is teaching him how to manage a leg bag. Plan 1. 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 Follow-up has been scheduled with Dr. Rodriguez and Dr. Brady. Medications at Discharge Home Medications apixaban 5 mg tablet 5 mg PO BID blood thinner #60 tabs 04/21/23 atorvastatin 40 mg tablet (Lipitor) 40 mg PO QHS cholesterol #30 tabs 04/21/23 diltiazem HCl 240 mg capsule,extended release 24 hr 240 mg PO DAILY blood pressure #30 caps 04/21/23 levothyroxine 50 mcg tablet 50 mcg PO DAILY@0600 thyroid #30 tabs 04/21/23 magnesium oxide 400 mg PO BID supplement #60 tabs 04/21/23 sennosides 8.6 mg-docusate sodium 50 mg tablet (Stool Softener-Stimulant Laxative) 2 tab PO BID constipation #120 tabs 04/21/23 hydralazine 25 mg tablet 25 mg PO BID bp #180 tabs 05/10/23 carbamazepine 200 mg tablet (Tegretol) 200 mg PO TID seziures #90 tabs 06/11/23 tamsulosin 0.4 mg capsule 0.4 mg PO BID bladder 06/25/23 acetaminophen 500 mg tablet 1,000 mg (2 x 500 mg) PO Q8H PRN fever or pain #180 tabs 07/10/23 ascorbic acid (vitamin C) 500 mg tablet 1,000 mg (2 x 500 mg) PO LUNCH #30 tabs 07/10/23 ferrous sulfate 325 mg (65 mg iron) tablet (Feosol) 325 mg PO DAILY iron #30 tabs 07/10/23 lisinopril 10 mg tablet 10 mg PO BID #60 tabs 07/10/23 oxycodone 5 mg tablet 5 mg PO Q4H PRN pain 7 days #14 tabs 07/10/23 pantoprazole 40 mg tablet,delayed release 40 mg PO BID #60 tabs 07/10/23 sennosides 8.6 mg-docusate sodium 50 mg tablet (Stool Softener-Stimulant Laxative) 2 tab PO BID #120 tabs 07/10/23 Hospital Course Operations - (Open reduction internal fixation right hip fracture with cephalomedullary nailing on 06/19/[address] Sifuentes) Procedures None Summary of Care Provided Minutes Spent on Discharge: 30 Hospital Course: MARGARET CREWS, is a 83 YO M with a PMH of chronic atrial fibrillation, chronic anticoagulation with Eliquis, hyperlipidemia, hypertension, coronary artery disease, history of NSTEMI, history of CABG, trigeminal neuralgia, CVAs, BPH with urine retention, history of meningioma, in hospital delirium and hypothyroidism who is well known to me from an admission to inpt rehab in MAR/Apr for multiple rib fractures with associated right hemothorax and right side pulmonary contusions. Margaret presented to the ED at [facility] on 06/17/23 after a fall c/o R R hip pain and a laceration above the R eye. On physical examination he had a 2 cm laceration along the right eyebrow and tenderness along the proximal right femur with the hip held in slight flexion. Brain CT showed no acute changes with the exception of soft tissue swelling overlying the right orbital region. X-ray of the right hip and pelvis that showed a nondisplaced right intertrochanteric fracture. The laceration was sealed with Dermabond and the patient was admitted to the hospitalist service with consult placed to Dr. Sifuentes. Eliquis was placed on hold. He was taken to the OR on 06/19/2023 for right hip cephalomedullary nailing. The postoperative course was uncomplicated with the exception of some confusion at night which she has had in the past when in the hospital. He was transferred to [facility] residential on 06/21/2023. He returned to the ER on 06/22/2023 with complaint of black, tarry stools and hypotension. He was complaining of generalized weakness and shortness of breath. Blood pressure in the emergency room at presentation was 118/67 with a pulse rate of 112. He was 100% saturated on room air. Hemoglobin was 6.6 and he was transfused with 1 unit of packed red blood cells and return to [facility]. He returned to the emergency room on 06/25/2023 again with black heme positive stool and complaints of shortness of breath and fatigue. Hemoglobin was 6.7. He had been taking Eliquis 5 mg twice daily and aspirin 81 mg once daily. He was admitted to the hospitalist service and Dr. Rodriguez was consulted. He underwent EGD with Dr. Rodriguez on 06/26/2023 and this revealed an irregular Z-line, small hiatal hernia and duodenal lipoma. No source of bleeding was identified. Colonoscopy was discussed and is going to be deferred until he is home following recovery from the hip fracture. He has an outpatient appointment scheduled with Dr. Rodriguez on 07/22/2023. Eliquis was restarted on 06/28/2023. Aspirin will be held for period of 30 days and can be restarted if stool is heme-negative. Hemoglobin at the time of discharge from the hospital was stable at 8.1. He was transferred to the acute inpatient rehab unit at [facility] on 06/28/2023 for 3 hours of therapy daily to restore function/independence at or near his level prior to the recent right hip fracture. Post void residuals were very high at presentation to rehab. This was the case when he was last discharged from rehab and he went home with a Justin catheter. He had follow up with Dr. aVsquez. the catheter was removed and he was not scheduled for any follow up. He had a UTI due to MRSA following DC from rehab the last time. A UA at admission to rehab on this visit grew > 100,000 MRSE. The WBC was WNL, he had no fever, nausea or flank pain. This is presumed to be colonization. Justin was inserted on rehab and prior to DC he was taught how to take care of a leg bag. He has had no fevers on rehab and he denies suprapubic pain, flank pain, N/V. the urine in the Justin bag and tubing is pale yellow and clear at the time of DC from rehab. Iron studies were repeated on rehab and the iron and percent iron saturation are within normal limits. He was given intravenous iron sucrose on his last admission to rehab. HGB is stable at 9.6 at the time of DC from rehab. Margaret di well on rehab. At the time of DC he is able to groom himself at mod I. He is able to dress his upper body at set up but requires minimal assistance with lower body dressing. He is able to bathe himself at set up/standby assist. He is contact-guard assist for tub/shower transfer. He is able to do 7 sit to stands in 30 seconds using his upper extremities to push out and he has completed the turn up and go test and 24.41 seconds with a wheeled walker at standby assist/contact-guard assist. He is able to do a curb step with a wheeled walker at min assist/contact-guard assist. He has ambulated up to 200 feet with a wheeled walker at standby assist/contact-guard assist on various surfaces. He is standby assist/contact-guard assist for transfers to stand and requires minimal assistance for bed mobility, mostly to lift his right lower extremity onto the bed. He does have a leg resident in diagnostic radiology available to assist him. Margaret was discharged home on 07/11/2023 and will follow-up with Dr. Sifuentes for the right hip fracture, with Dr. Rodriguez to schedule a colonoscopy and with Dr. Brady his PCP. He was discharged with a Justin catheter. 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 Physical Exam Const alert and no apparent distress General Appearance: cooperative HEENT HEENT Narrative: Hearing aids are in place. No scleral icterus, no conjunctival injection, no discharge from the eyes and no mattering of the eyelashes. Mouth: dry mucous membranes Resp clear to auscultation bilaterally Effort and Inspection: Negative for tachypneic, respiratory distress, labored or uses accessory muscles Cardio no murmurs, no rub and no gallops Cardio Narrative: Irregular irregular rhythm with controlled ventricular response. GI normal to inspection, nondistended, normoactive bowel sounds, soft to palpation and non-tender GI Narrative: No guarding with palpation Extremity no calf tenderness Extremity Narrative: Mild ankle edema R>L. He has discoloration and deformity of the right proximal medial calf from an accident with a chainsaw in the past. Both feet are warm to touch and have intact sensation. General Extremity: Negative for clubbing or cyanosis Skin Rashes: no rashes Wound Narrative: The right periorbital bruising is nearly gone. The laceration above the right eyebrow is healing with no dehiscence, no erythema and no purulent discharge. He denies pain. The incisions from the cephalomedullary nailing of the right hip are intact and healing with no erythema and no discharge. Psych denies suicidal ideation Psych Narrative: He is always emotional and cries easily. His dtr tells us that he has been this way most of his life. He is motivated to get better and go home to take care of his . always cooperative and works hard in therapy. Appearance: appropriate Activity / Motor Behavior: Negative for restless Weight / BMI Weight Weight: 182 lb Body Mass Index (BMI) 26.0 ABG / Lab / Microbiology Data 07/07/23 07:05 07/07/23 07:05 Microbiology: Microbiology 06/29/23 15:28 Urine Catheter - Catheter Urine Culture - Final Staphylococcus epidermidis D/C Instructions Discharge Diet: No restrictions Weight Bearing Status: Full weight bearing Keep extremity elevated above heart level: Legs Call your doctor if your incision/area has: Continuous Slow Oozing, Sudden Increased Bleeding, Increased Pain/ Swelling, Increased Redness, Foul Smelling Discharge and Swelling at the incision site Call your doctor if you observe: Fever of 101 or Higher, Shortness of breath, Dizziness, Fainting spells, Swelling in the ankles, Chest pain, Increased palpitations (irregular heartbeat), Calf discomfort, Uncontrolled pain and - (CAll your PCP if any night sweats, change in mental status, shaking chills, nausea/vomiting, foul smelling urine, blood in the urine. These can be signs of a urinary tract infection. ) Suture Line Care: Avoid Pulling/Pushing, Avoid Pinching/Bending and - (Call Dr. Sifuentes if there is any discharge from the surgical incisions or any increasing redness around the incision. ) Cleanse incision/area with: Soap & Water and - (No dressing is needed on the incisions. If your clothing is irritation the incision you may cover with a dry dressing. ) Catheter: Justin to leg bag Pending Tests Upon Discharge: none Please Follow Up With: gInacio Sifuentes MD When: you will also need to follow up with Dr. Rodriguez and with Dr. Brady. Meaningful Use Info Meaningful Use Meaningful Use Diagnoses (Choose all that apply): None applicable Ischemic Stroke Statin Dosing Therapy Reference: STATIN DOSE THERAPY REFERENCE: * Patients > 75 years receive moderate or high dose statin therapy. * Patients 75 years or YOUNGER should receive HIGH intensity statin dose unless contraindicated. You will be required to document reason for non-treatment if statin daily dose does not meet guidelines. HIGH DOSE STATIN THERAPY DAILY Atorvastatin > than or = to 40 mg Rosuvastatin > than or = to 20 mg Amlodipine + Atorvastatin > than or = to 2.5/40 mg Ezetimibe + Simvastatin 10/80 mg Simvastatin 80mg Discharge Plan Admission Admit Date/Time: 06/28/23 13:36 Primary Reason for Your Visit: Debility due to GIB and recent hip fracture. Attending Provider: Brandee Monterroso Primary Care Provider: Jolly Brady Instructions Additional Instructions / Restrictions: 1. Your blood count has been improving while you have been on rehab. The hemoglobin(HGB) has improved from 8.9 to 9.6. HGB is a component of the red blood cell. We checked your iron level and it is good so you did not need any intravenous iron at this visit. I am going to send you home on an iron supplement to keep the iron within normal limits. 2. You still have a large amount of urine in the bladder after you urinate. This can lead to urinary tract infections and kidney failure. Having a Justin catheter in can also lead to infections. I have listed in your instructions the symptoms of a urinary tract infection. If you have any of these symptoms call Dr. Brady. 3. You really need to cut back on some of the things you are doing because you are putting your self at risk for falls and more broken bones. Walking outside on uneven ground when you have poor balance increases your risk for falls. At your age it will take 8-12 weeks for the hip to heal. I think you should stay off the mower and out of the barn for the next 3 months to allow your body to heal. If you want to be able to stay in your home and take care of your you need to take better care of yourself and have better safety awareness. 4. If you or Joanne have any questions after you leave rehab please do not hesitate to call me. OFFICE: [phone] CELL: [phone] Discharge Orders/Prescriptions Prescriptions: New lisinopril 10 mg Tablet 10 mg PO BID Qty: 60 0RF sennosides-docusate sodium [Stool Softener-Stimulant Laxat] 8.6-50 mg Tablet 2 tab PO BID Qty: 120 0RF pantoprazole 40 mg Tablet,Delayed Release (Dr/Ec) 40 mg PO BID Qty: 60 0RF ascorbic acid (vitamin C) 500 mg Tablet 1,000 mg PO LUNCH Qty: 30 0RF Rx Instructions: take the ascorbic acid and the ferrous sulfate at the same time daily......with a meal. Continued levothyroxine 50 mcg Tablet 50 mcg PO DAILY@0600 Qty: 30 0RF atorvastatin [Lipitor] 40 mg tablet 40 mg PO QHS Qty: 30 0RF diltiazem HCl 240 mg capsule,extended release 24hr 240 mg PO DAILY Qty: 30 3RF apixaban 5 mg tablet 5 mg PO BID Qty: 60 0RF magnesium oxide 400 mg magnesium tablet 400 mg PO BID Qty: 60 0RF tamsulosin 0.4 mg Capsule 0.4 mg PO BID ferrous sulfate [Feosol] 325 mg (65 mg iron) tablet 325 mg PO DAILY Qty: 30 0RF oxycodone 5 mg Tablet 5 mg PO Q4H PRN (Reason: pain) 7 Days Qty: 14 0RF hydralazine 25 mg tablet 25 mg PO BID Qty: 180 3RF carbamazepine [Tegretol] 200 mg tablet 200 mg PO TID Qty: 90 1RF Patient Comments: 1st dose taken today 06/16 Changed acetaminophen 500 mg Tablet 1,000 mg PO Q8H PRN (Reason: fever or pain) Qty: 180 0RF Rx Instructions: Take Tylenol every 8 hours as need for pain or fever. Discontinued lisinopril 5 mg tablet 5 mg PO BID Qty: 60 5RF No Action sennosides-docusate sodium [Stool Softener-Stimulant Laxat] 8.6-50 mg Tablet 2 tab PO BID Qty: 120 3RF Referrals / Follow Up: Kirk Vasquez MD [Med Staff - Active Staff] - (call office on Wednesday and make appointment they are expecting your call. let them know you were in the hospital.) Jolly Brady MD [Primary Care Provider] - 07/14/23 10:30 am Asher Rodriguez DO [Med Staff - Active Staff] - 07/22/23 11:00 am Disposition Disposition (needs filled in before D/C Order can be placed): Home Health Service Charges/Coding Visit Charges Inpatient E&M: 60812 Disch Hosp
[2023-07-10] MEDS: Ascorbic Acid 500 MG Tablet 1000 MG PO (11:46)
[2023-07-10] MEDS: Ferrous Sulfate 325 MG Tablet PO (11:47)
[2023-07-10 14:16] LABS: Mucous, Urine 0 SEEN /hpf (<or=2+); Red Blood Cells-Urine 0 SEEN /hpf (0-5); Squamous Epithelial Cells - UA 0 SEEN /hpf (0-5)
[2023-07-10 14:18] LABS: Color, Urine Yellow (Yellow); Glucose, Dipstick Normal (Normal); Ketone-Dipstick Negative (Negative); Leukocyte Esterase-Dipstick 500 /ul (Negative); Nitrite-Dipstick Positive (Negative); Occult Blood-Urine Negative /ul (Negative); Protein-Dipstick Negative (Negative); Specific Gravity, Urine 1.015 (1.002-1.030); Urine Bilirubin Dipstick Negative (Negative); Urine Clarity Clear (Clear); Urine Urobilinogen Normal (Normal)
[2023-07-10 14:39] LABS: Bacteria 2+ /hpf (None Seen); White Blood Cells 5-10 SEEN /hpf (0-5)
[2023-07-10] MEDS: Atorvastatin Calcium 40 MG Tablet PO (21:33)
[2023-07-11] MEDS: Menthol/Lanolin/Calamine/Znox 113 GM Tube 1 APPLIC TOPICAL (05:07)
[2023-07-11] MEDS: carBAMazepine 200 MG Tablet PO (05:07)
[2023-07-11] MEDS: Acetaminophen 500 MG Tablet 1000 MG PO (05:07)
[2023-07-11] MEDS: Levothyroxine 50 MCG Tablet PO (05:07)
[2023-07-11 05:26] VITALS: BP 156/82; PULSE 70; RESP 18; TEMP 36.8; O2SAT 100
[2023-07-11] MEDS: APIXABAN 5 MG TABLET PO (08:06)
[2023-07-11] MEDS: Magnesium Chloride 64 MG Delay Rel.Tablet 128 MG PO (08:07)
[2023-07-11] MEDS: dilTIAZem CD 240 MG Capsule PO (08:07)
[2023-07-11 08:08] VITALS: BP 156/82; PULSE 70
[2023-07-11] MEDS: Pantoprazole Sodium 40 MG Tablet PO (08:08)
[2023-07-11] MEDS: hydrALAZINE 25 MG Tablet PO (08:08)
[2023-07-11] MEDS: Lisinopril 10 MG Tablet PO (08:08)
[2023-07-11] MEDS: Tamsulosin HCl 0.4 MG Capsule PO (08:09)
[2023-07-11] MEDS: Cefadroxil 500 MG CAPSULE 1000 MG PO (09:41)
[2023-07-11 10:04] VITALS: BP 156/82; PULSE 70; RESP 18; TEMP 36.8; O2SAT 100
--- NOTE | 2023-07-11 10:05 | NURSING ---
discharged home with daughter. discharge instructions, medications and appointments reviewed with pt and family. Justin catheter care reviewed with pt and daughter. denies questions or concerns .
== END 2023-07-11 10:08 | disposition home health service (06) | DRG 812 ==
PROVIDERS: Admitting Provider Internal Medicine; PCP Internal Medicine; Visit Provider Internal Medicine
DX: D62 Acute posthemorrhagic anemia (principal); D68.9 Coagulation defect, unspecified; I48.11 Longstanding persistent atrial fibrillation; K92.2 Gastrointestinal hemorrhage, unspecified; N13.8 Other obstructive and reflux uropathy; G50.0 Trigeminal neuralgia; I10 Essential (primary) hypertension; I70.0 Atherosclerosis of aorta; K44.9 Diaphragmatic hernia without obstruction or gangrene; E78.5 Hyperlipidemia, unspecified; I25.10 Atherosclerotic heart disease of native coronary artery without angina pectoris; W19.XXXD Unspecified fall, subsequent encounter; S72.144D Nondisplaced intertrochanteric fracture of right femur, subsequent encounter for closed fracture with routine healing; S01.111D Laceration without foreign body of right eyelid and periocular area, subsequent encounter; Z79.01 Long term (current) use of anticoagulants; N39.490 Overflow incontinence; Z87.891 Personal history of nicotine dependence; N40.1 Benign prostatic hyperplasia with lower urinary tract symptoms; R33.8 Other retention of urine; Z79.899 Other long term (current) drug therapy; Z22.359 Carrier of Enterobacterales, unspecified
CPT/HCPCS: 36415; 73502; 80048; 80053; 81001; 82728; 83036; 83540; 83550; 83735; 84100; 85027; 85045; 87077; 87086; 87088; 87186; 93005; 94668; 97110; 97116; 97162; 97166; 97530; 97535; 97802; A4216

== ENCOUNTER → 2023-08-16 | Outpatient (CLI) | payer MEDICARE, OTHER, SELFPAY ==
[2022-06-17 09:31] VITALS: BMI 29.1
[2023-08-16 11:03] LABS: Absolute Lymphocyte Count 1.01 X10^3/uL (0.83-4.51); Absolute Neutrophil Count 2.9 X10^3/uL (2.0-7.7); Basophil# 0.02 X10^3/uL; Basophil% 0.4 % (0-1); Eosinophil# 0.08 X10^3/uL; Eosinophils% 1.7 % (0-5); Hemoglobin 11.2 g/dL (13.0-16.5); Lymphocyte # 1.01 X10^3/ul (0.83-4.51); Lymphocyte % 21.7 % (19-41); Mean Corp Hgb Conc 31.1 g/dL (32-36); Mean Corpuscular Hgb 29.2 pg (27.0-32.0); Mean Platelet Vol. 9.7 fl (6.2-12.0); Monocyte% 12.9 % (0-10); NRBC Flagged by Analyzer 0 % (0-5); Neutrophil # 2.92 X10^3/uL (2.7-7.7); Neutrophil % 62.9 % (47-70); Platelet Count 162 K/mm3 (150-450); RBC Distribution Width CV 15.2 % (11.6-14.6); Red Blood Count 3.83 M/mm3 (4.6-6.2); White Blood Count 4.7 K/mm3 (4.4-11.0)
[2023-08-16 11:53] LABS: Anion Gap 6 (5-15); BUN 18 mg/dL (7-18); BUN/Creat Ratio 26.9 RATIO (10-20); Calcium,Total 9.7 mg/dL (8.5-10.1); Chloride 106 mmol/L (98-107); Creatinine, Serum 0.67 mg/dL (0.70-1.30); EST Glomerular Filtration Rate 121 mL/min (>60); Est Glom Filt Rate - Afr Amer 146 mL/min (>60); Glucose 88 mg/dL (74-106); Potassium 3.9 mmol/L (3.5-5.1); Sodium Level 139 mmol/L (136-145)
== END | disposition home or self-care (01) ==
LOC: LAB 10:01
PROVIDERS: PCP Internal Medicine; Referring Provider Internal Medicine; Visit Provider Internal Medicine
DX: D64.9 Anemia, unspecified (principal); E03.9 Hypothyroidism, unspecified; I10 Essential (primary) hypertension; E78.5 Hyperlipidemia, unspecified; E61.1 Iron deficiency; R53.81 Other malaise; Z79.01 Long term (current) use of anticoagulants
CPT/HCPCS: 36415; 80048; 85025

== ENCOUNTER → 2024-11-17 | Outpatient (CLI) | payer MEDICARE, OTHER, SELFPAY ==
[2022-06-17 09:31] VITALS: BMI 29.1
[2024-11-17 13:07] LABS: AST(SGOT) 26 U/L (<=37); Alanine Aminotransfer ALT/SGPT 24 U/L (<=46); Albumin, Serum 4.4 g/dL (3.4-4.8); Alkaline Phosphatase 112 U/L (40-129); Anion Gap 9 (5-15); BUN 18 mg/dL (4-19); BUN/Creat Ratio 24.8 RATIO (10-20); Calcium,Total 10.3 mg/dL (7.6-11.0); Carbon Dioxide 25.9 mmol/L (21.0-32.0); Chloride 104 mmol/L (98-108); Cholesterol 155 mg/dL (<=200); Globulin 2.7 g/dL (2.2-4.2); Glucose 98 mg/dL (70-99); Low Density Lipoprotein Calc. 63 mg/dL; Magnesium 2.2 mg/dL (1.5-2.2); Potassium 4.3 mmol/L (3.3-5.1); Triglycerides 57 mg/dL; Very Low Density Lipoprotein 11 mg/dL (5-40); cholesterol:hdl ratio screen 1.92
== END | disposition home or self-care (01) ==
LOC: LAB 12:11
PROVIDERS: PCP Internal Medicine; Referring Provider Nurse Practitioner Gerontology; Visit Provider Nurse Practitioner Gerontology
DX: I10 Essential (primary) hypertension (principal); E78.5 Hyperlipidemia, unspecified
CPT/HCPCS: 36415; 80053; 80061; 83735

== ENCOUNTER → 2024-12-20 | Outpatient (CLI) | payer MEDICARE, OTHER, SELFPAY ==
[2022-06-17 09:31] VITALS: BMI 29.1
--- NOTE | 2024-12-20 15:16 | NEURO ---
NCS and/or EMG Patient Report Ordering Doctor: Jolly Brady DATE OF SERVICE: 12/20/24 Margaret presents for electrodiagnostic testing of the right upper limb. He reports numbness and tingling in the right hand. Electrodiagnostic findings: Right median motor nerve demonstrates prolonged distal latency with reduced amplitude and reduced conduction velocity. Right ulnar motor response within normal limits. Prolonged right median F–wave. Prolonged right ulnar F–wave. Absent right median sensory latency at the wrist and palm. Needle EMG testing was performed in the right upper limb. Motor unit action potentials were of normal amplitude and duration. Electrodiagnostic impression: This is an abnormal study. 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 This consistent with a severe right carpal tunnel syndrome. Multi Select Codes Neurology Neurology Interp Codes: 84508-42 Musc test done w/n test comp (interp) and 78497-07 Nrv cndj tst 5-6 studies (interp)
== END | disposition home or self-care (01) ==
LOC: PSN 09:49
PROVIDERS: PCP Internal Medicine; Referring Provider Internal Medicine; Visit Provider Internal Medicine
DX: R20.0 Anesthesia of skin (principal); R20.2 Paresthesia of skin; M79.641 Pain in right hand
CPT/HCPCS: 95886; 95909

== ENCOUNTER 2025-01-31 06:00 | Day surgery (SDC) | payer MEDICARE, OTHER, SELFPAY ==
[2022-06-17 09:31] VITALS: BMI 29.1
--- NOTE | 2025-01-22 22:54 | PAT.ANE_ITS ---
Pre-Assessment Diagnosis/Proposed Procedure Planned Operative Procedure(s): (R) Right Endoscopic Carpal Tunnel Release Anesthesia History Anesthesia History - geriatric nursing assistant: Anesthesia History - geriatric nursing assistant Hx Hospitalization No 01/22/25 10:17 Any Problems With Anesthesia Yes: confusion, 01/22/25 10:17 hallucinations after open heart surgery Cholinesterase deficiency No 01/22/25 10:17 You/Your Family Experience No 01/22/25 10:17 fever (hyperthermia) with Relationship Recent Exposure to Contagious No 06/25/23 22:48 Disease Does patient have nerve No 01/22/25 10:17 stimulator Patient instructed to have device shut off --Does patient have Pacemaker or ICD? When Was Last Pacemaker Check QUESTION #4 FULL TEXT: You/Your Family Experience fever (hyperthermia) with Anesthesia Last Oral Intake Last Oral intake: Last Oral Intake NPO since Meds taken in AM with sips of water? Meds patient instructed to take am of surgery PONV PONV - geriatric nursing assistant: PONV - geriatric nursing assistant Female No 01/22/25 10:17 HX of Motion Sickness No 01/22/25 10:17 HX of N/V After Surgery No 01/22/25 10:17 Non-Smoker Yes 01/22/25 10:17 Duration of Surgery greater No 01/22/25 10:17 than 60 minutes Number of Risk Factors 1 01/22/25 10:17 PONV Score Low Risk 01/22/25 10:17 Height & Weight Height & Weight: Anesthesia: Height & Weight Height 5 ft 10 in 01/01/25 13:24 Respiratory Assessment Respiratory Assessment - geriatric nursing assistant: Respiratory Tract Infection Hx - geriatric nursing assistant Hx Respiratory Tract Infection No 01/22/25 10:17 STOP Sleep Apnea STOP Sleep Apnea - geriatric nursing assistant: STOP Sleep Apnea - geriatric nursing assistant Hx Hypertension Yes: currently trying to 01/22/25 10:17 control, recent med changes Hx Sleep Apnea No 01/22/25 10:17 CPAP No 06/26/23 09:55 BIPAP No 04/15/22 14:50 Do you snore loudly (louder No 01/22/25 10:17 than talking or can be heard Do you often feel tired/ No 01/22/25 10:17 fatigued/ sleepy during daytime? Has anyone observed you stop No 01/22/25 10:17 breathing during sleep? STOP Results Negative 01/22/25 10:17 QUESTION #5 FULL TEXT : Do you snore loudly (louder than talking or can be heard through closed doors)? Tobacco Use History Tobacco Use History - geriatric nursing assistant: Tobacco Use History - geriatric nursing assistant Tobacco Use Smoking Status Former smoker 01/22/25 10:17 Hx Tobacco Use No 01/22/25 10:17 Years Smoking Packs Smoked per Day Smoking Cessation Date was No - quit smoking greater 01/22/25 10:17 within the last 15 years than 15 years ago Hx Smoking Cessation Date 02/08/74 01/22/25 10:17 Hx Smoking Cessation No 01/22/25 10:17 Counseling Hematologic Medial History Hematologic Hx - geriatric nursing assistant: Hematologic Medical Hx - dry kiln feeder Hx of Blood Transfusion Yes 01/22/25 10:17 Hx of Transfusion in last 3 No 01/22/25 10:17 Months Date of Last Transfusion (if within last 3 months) Ever experience any problems No 01/22/25 10:17 with transfusion(s)? Specify any problems Hx of Preganancy in last 3 N/A 01/22/25 10:17 Months Nurse Filling Out Transfusion NBUCHER 01/22/25 10:17 & Questions: Date: 01/22/25 01/22/25 10:17 Time: 10:26 01/22/25 10:17 Patient unable to answer at this time (ie. confused, unrespo /Reproduction History /Reproductive History - geriatric nursing assistant: /Reproductive Hx- geriatric nursing assistant Hx Now No 01/22/25 10:17 Gestational Age (in weeks): EDC: Hx Hx Para Hx Section SAB No 01/22/25 10:17 Does the father of the baby or his family experience fever w Father of the baby Malignant Hypertension history comment [facility] Medical History (Updated 01/22/25 @ 10:38 by Maite Hoang) Wears hearing aid Loss of hearing Wears glasses Hypothyroid Thyroid disease Arthritis BPH (benign prostatic hyperplasia) Prostate disease High cholesterol Trigeminal neuralgia Difficulty chewing History of hiatal hernia History of GI bleed History of heart attack History of echocardiogram Cardiology follow-up encounter History of rib fracture History of hip fracture Right carpal tunnel syndrome Colonization with drug-resistant bacteria Generalized weakness Hip fracture, right Atrial fibrillation and flutter S/P right hip fracture Transfusion of blood during current hospitalisation Symptomatic anemia Right knee pain Bleeding tendency Heart attack Hearing loss, left Fall Laceration of right facial nerve Rib fractures History of trigeminal neuralgia Action tremor Acute on chronic anemia Longstanding persistent atrial fibrillation History of hypothyroidism Fall Current use of senior living anticoagulation Hemothorax on right Multiple fractures of ribs of right side Atherosclerotic heart disease of [place] coronary artery without angina pectoris Unstable angina Non-ST elevated myocardial infarction Trigeminal nerve disease Brainstem tumor Hyperlipemia Back problem Hypertension Home Medications ?Medication ?Instructions ?Recorded ?Last Taken ?Type magnesium oxide 400 mg PO BID supplement #60 tabs 04/21/23 06/16/23 Rx acetaminophen 500 mg tablet 1,000 mg (2 x 500 mg) PO Q 8H PRN 07/10/23 Unknown Rx fever or pain #180 tabs ergocalciferol (vitamin D2) 1,250 1,250 mcg PO QWEEK 0 10/04/23 Unknown History mcg (50,000 unit) capsule nitroglycerin 0.4 mg sublingual 0.4 mg sublingual Q5-1 5M PRN chest 10/04/23 Unknown Rx tablet (Nitrostat) pain #25 tabs apixaban 5 mg tablet 5 mg PO BID Faxed to [facility] 06/16/24 Unknown Rx [facility] #180 tabs Fruits supplement 1 cap PO QDAY 08/03/24 Unkno wn History ferrous gluconate 324 mg (37.5 mg 324 mg PO QDAY 08/03 Unknown History iron) tablet veggies supplement 1 cap PO QDAY 08/03/24 Unkno wn History aspirin 81 mg tablet,delayed 81 mg PO DAILY #90 tabs 0 09/20/24 Unknown Rx release (Adult Low Dose Aspirin) atorvastatin 40 mg tablet (Lipitor) 40 mg PO QHS murali sterol #90 tabs 09/20/24 Unknown Rx carbamazepine 200 mg tablet 200 mg PO TID trigeminal n euralgia 09/20/24 Unknown Rx (Tegretol) #270 tabs diltiazem HCl 240 mg 240 mg PO DAILY blood pressu re #90 09/20/24 Unknown Rx capsule,extended release 24 hr caps levothyroxine 50 mcg tablet 50 mcg PO DAILY@0600 thyro id #90 09/20/24 Unknown Rx tabs tamsulosin 0.4 mg capsule 0.4 mg PO BID bladder #180 c aps 09/20/24 Unknown Rx lisinopril 20 mg tablet 20 mg PO BID #60 tabs Unknown Rx hydralazine 50 mg tablet 50 mg PO TID #270 tabs 01/16 Unknown Rx Prevagen 1 cap PO DAILY 01/22/25 Unkn own History ascorbic acid (vitamin C) 1,000 mg 1 g PO DAILY Unknown History tablet (Vitamin C) cranberry fruit 450 mg tablet 450 mg PO DAILY 01/22/25 Unknown History (cranberry) Allergy/AdvReac Type Severity Reaction Status Date / Time No Known Allergies Allergy Verified 01/22/25 10:05 Family History Other Heart disease Surgical History (Updated 01/22/25 @ 10:38 by Maite Hoang) S/P CABG (coronary artery bypass graft) History of heart surgery History of esophagogastroduodenoscopy (EGD) History of open reduction and internal fixation (ORIF) procedure History of chest tube placement Status post aorto-coronary artery bypass graft Hx of tonsillectomy Hx of skin graft History of prostate surgery Social History Smoking Status: Former smoker how long ago did patient quit smokin02/08/1969 alcohol intake: never substance use type: does not use what type of physical activity do you participate in: none Audit: Pertinent Findings Pertinent Findings EKG Perinent findings: 07/10/2023. Atrial fibrillation. Minimal voltage criteria for LVH. Echo (EF%) pertinent findings: 06/18/2023. EF is 55%. Normal PA pressure. No aortic stenosis. Heart catheterization pertinent findings: 04/16/2022. Normal left ventricular end-diastolic pressure [place] multivessel coronary artery disease. Left main is a distal 50% stenosis. Left anterior descending has a 75% stenosis as the ostial LAD. There is severe calcification in the proximal and mid LAD's. Circumflex ostial circumflex is 75%. RCA has a ostial RCA stenosis of 90%. Coronary revascularization was recommended. (CABG x 3 on 04/20/2022) Consult pertinent findings: 12/22/2024. Thanh WISEMAN. 1. Coronary artery disease-CABG x 3 on 04/20/2022. Patient is not having current symptoms. Stable at this time. 2. Atrial fibrillation?persistent. Latest EF is 55%. Continue Eliquis and diltiazem. 3. Hypertension- 4. Cardiology standpoint-patient is doing well. Recommendation Anesthesia Recommendation Anesthesia recommendation: OPTIMIZED for anesthesia
[2025-01-31] VITALS (8 sets, daily range): BP systolic 121–208; BP diastolic 51–109; PULSE 59–89; RESP 16; TEMP 36.4–36.8; O2SAT 94–100; BMI 27.6
--- OUTSIDE RECORDS SUMMARY | 2025-01-31 06:04 | XMS RPT_ITS | CCD ---
Author Organization [facility] Care Team Providers Care Plugger Worker Name Role Phone Roque Jaskaran F. Unavailable Unavailable Jose Ramon Welch Unavailable Unavailable RODNEY APONTE Unavailable Unavailable Jose Ramon Welch Unavailable Unavailable [facility] Unavailable Unavailable Dr. Shira Brady Primary Care Provider Dr. Luis Miguel Mccabe Emergency Provider Dr. Lai Gallardo Admit Provider Dr. Lai Gallardo Attending Provider Dr. Lai Gallardo Other Provider Dr. Garett Crockett Attending Provider [phone] Garett Crockett Other Provider Unavailable Primary Care Provider Unavailemilia Welch MD, Jose Ramon Ricardo Primary Care Provider Keya FOOT CUTTER.FOUNTAIN WORKER, Magi A Unavailable Lex GONZALEZ, Javier Slade Unavailable Scott TONG, Zay Unavailable Catracho Sutton RN Unavailable [phone] Dr. Shira Brady Primary Care Provider Dr. Luis Miguel Mccabe Emergency Provider Dr. Lai Gallardo Admit Provider Dr. Lai Gallardo Attending Provider Dr. Lai Gallardo Other Provider Dr. Garett Crockett Attending Provider Dr. Garett Crockett Other Provider Shira Brady MD Primary Care Provider Dr. Shira Brady Attending Provider Scott TONG, Zay Unavailable Dr. Shira Brady Primary Care Provider Dr. Shira Brady Referring Provider [phone] Thanh 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, BOWEN Suarez Attending Provider Shira Brady MD Primary Care Provider [phone] Jose Ramon Welch MD Primary Care Provider Scott RN, Zay Unavailable Lesley TONG, Catracho Unavailable [phone] Dr. Shira Brady Primary Care Provider Dr. Shira Brady Referring Provider Thanh 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, BOWEN Suarez Attending Provider Kriss, Dr. Brandee Smith Admit Provider Kriss, Dr. Brandee Smith Attending Provider Kriss, Dr. Brandee Smith Other Provider Kriss, Dr. Brandee Smith Referring Provider TERESITA BERNAL Referring Unavailable SHIRA BRADY Primary Care Unavailable TERESITA BERNAL Attending Unavailable SHIRA BRADY Primary Care Unavailable SHIRA BRADY Primary Care Unavailable MAGI PULLIAM Referring Unavailable SHIRA BRADY Primary Care Unavailable SHIRA BRADY Primary Care Unavailable VIKAS JOHNSTON Consulting Unavailable RICHMOND NOVAK Attending UnavailJOSE RAMON Hart Admitting Unavailable SHIRA BRADY Primary Care Unavailable DANIELLE VU ([facility]) Referring Unavailab TERESITA Pat Attending Unavailable SHIRA BRADY Primary Care Unavailable Dr. Shira Brady Attending Provider [phone] TERESITA BERNAL Referring Unavailable SHIRA BRADY Primary Care Unavailable JOSE RAMON WERNER Referring Unavailable SHIRA BRADY Primary Care Unavailable Dr. Shira Brady Primary Care Provider Dr. Kris Edwards Attending Provider Dr. Ju Garcia Emergency Provider Dr. Lucille Colindres Admit Provider Dr. Lucille Colindres Attending Provider Dr. Lucille Colindres Other Provider Dr. Ignacio Sifuentes Other Provider Josh, Dr. Katerina Smith Attending Provider Josh, Dr. Katerina Smith Other Provider Caitlyn GONZALEZ, Shira Monk Primary Care Provider Caitlyn GONZALEZ, Dr. Azevedo Primary Care Provider Caitlyn GONZALEZ, Dr. Azevedo Referring Provider Pilar Lares Attending Provider [phone] Caitlyn GONZALEZ, Dr. Azevedo Primary Care Physician Caitlyn GONZALEZ, Dr. Azevedo Referring Provider Daniela Rasmussen Attending Physician Daniela Rasmussen Referring Provider [phone] Blade Espino Attending Unavailable Shira Brady Consulting Unavailable Shira Brady Referring Unavailable Shira Brady Primary Care Unavailable Shira Brady Primary Care Unavailable Daniela Law Attending Unavailable Daniela Law Referring Unavailable Shira Brady Primary Care Unavailable Shira Brady Attending Unavailable Shira Brady Referring Unavailable Pilar Alvarez Attending Unavailabl e Shira Brady Primary Care Unavailable Shira Brady Referring Unavailable Shira Brady Primary Care Unavailable Daniela Law Attending Unavailable Shira Brady Referring Unavailable Medications Current Medications Medication Drug Class(es) Dates Sig (Normalized) Sig (Original) aspirin 81 mg delayed release oral tablet (16 sources) Platelet Aggregation Inhibitor, Nonsteroidal Anti-inflammatory Drug Start: 10-04-2023 End: 09-20-2024 Start: 04-08-2023 End: 06-28-2023 Aspirin 81 mg tablet,chewabl e Discontinued 1 {tbl} PO DAILY April 08, 2023 1:00am June 28, 2023 1:58pm heart health On Hold: Hold for 30 days Start: 04-08-2023 take 1 tablet by [facility] once daily aspirin 81 mg chewable tablet Take 1 tablet by mouth once daily. 04/09/2023 Active Comment on above: Take 1 tablet by [facility] once daily. atorvastatin 40 mg oral tablet (20 sources) HMG-CoA Reductase Inhibitor Start: 04-30-2022 End: 09-20-2024 take 1 tablet by mouth at bedtime Start: 01-13-2016 End: 05-21-2020 take 1 tablet by mouth at bedtime Atorvastatin 40 MG tablet Discontinued 40 mg PO AT BEDTIME January 13, 2016 1:00am May 21, 2020 4:13pm Comment on above: Take 1 tablet by [facility] daily at bedtime. carBAMazepine 200 mg oral tablet (20 sources) Mood Stabilizer Start: End: take 1 tablet by mouth twice daily Carbamazepine (Tegretol) 200 mg Tablet Discontinued 200 mg PO TWICE A DAY June 17, 2022 12:00am June 17, 2022 9:52am Start: 02-15-2020 End: 09-20-2024 take 1 tablet by mouth three times daily Start: 01-13-2016 End: 05-21-2020 take 500 mg by mouth twice daily at mealtime Carbamazepine Discontinued 500 MG PO TWICE DAILY WITH MEALS January 13, 2016 3:53pm May 21, 2020 4:16pm Start: 06-13-2015 End: 05-21-2020 take 1 tablet by mouth twice daily at mealtime Carbamazepine 200 MG tablet Discontinued 500 mg PO TWICE DAILY WITH MEALS January 13, 2016 3:53pm May 21, 2020 4:16pm Comment on above: Take 1 tablet by [facility] three times daily. ergocalciferol 1.25 mg oral capsule (20 sources) Provitamin D2 Compound Start: 10-04-2023 Start: 04-08-2023 End: 06-17-2023 Ergocalciferol (Vitamin D2) 1,250 mcg (50,000 unit) capsule Discontinued 1250 ug PO EVERY WEEK April 21, 2023 12:08pm June 17, 2023 10:43am supplement Comment on above: Take 1 capsule by [facility] one time a week for 7 doses. ferrous gluconate 324 mg oral tablet (10 sources) Start: 08-03-2024 take 1 tablet by mouth once daily Start: 04-21-2023 End: 06-28-2023 take 1 tablet by mouth once daily at mealtime Ferrous Gluconate 324 mg (37.5 mg iron) tablet Discontinued 324 mg PO DAILY 90 0 April 21, 2023 12:00am June 28, 2023 1:59pm Take this medication once daily WITH FOOD Fruits supplement capsule (2 sources) Start: 08-03-2024 take 1 capsule by mouth once d aily Start: 08-03-2024 take 1 capsule by [facility] once daily Fruits supplement capsule Active PO daily August 03, 2024 12:00am hydrALAZINE hydrochloride 50 mg oral tablet (20 sources) Arteriolar Vasodilator Start: 08-03-2024 End: 09-20-2024 take 1 tablet by mouth twice daily Start: 05-10-2023 End: 08-03-2024 take 1 tablet by mouth twice daily Hydralazine 25 mg tablet Discontinued 25 mg PO TWICE A DAY 180 December 14, 2023 10:33am August 03, 2024 11:16am bp Start: 04-28-2023 End: 05-10-2023 Hydralazine 50 mg tablet Discontinued 25 mg PO TWICE A DAY April 28, 2023 3:56pm May 10, 2023 11:36am Start: 04-28-2023 End: 05-10-2023 take 25 mg by mouth twice daily Hydralazine Discontinu ed 25 MG PO TWICE A DAY April 28, 2023 3:56pm May 10, 2023 11:36am Start: 04-21-2023 End: 04-28-2023 take 1 tablet by mouth twice daily Hydralazine 50 mg Tablet Discontinued 50 mg PO TWICE A DAY 60 0 April 21, 2023 12:00am April 28, 2023 3:56pm levothyroxine sodium 0.05 mg oral tablet (20 sources) l-Thyroxine Start: 04-21-2023 End: 09-20-2024 take 1 tablet by mouth once daily Start: 04-08-2023 End: 04-21-2023 take 1 tablet by mouth once daily Levothyroxine 25 mcg tablet Discontinued 25 ug PO DAILY April 08, 2023 1:00am April 21, 2023 12:05pm thyroid Start: 02-04-2023 End: 02-04-2023 take 1 tablet by mouth once daily Levothyroxine 75 mcg tablet Discontinued 75 ug PO DAILY 90 1 February 04, 2023 11:36am February 04, 2023 11:38am Start: 01-30-2023 End: 04-08-2023 take 1 tablet by mouth once daily Levothyroxine 50 mcg tablet Discontinued 50 ug PO DAILY 90 February 04, 2023 11:38am April 08, 2023 6:18pm Start: 06-17-2022 End: 06-17-2022 Levothyroxine 25 mcg Tablet Discontinued 25 PO DAILY June 17, 2022 12:00am June 17, 2022 10:59am Start: 01-15-2021 End: 01-30-2023 take 1 tablet by mouth once daily Levothyroxine 25 mcg tablet Discontinued 25 ug PO DAILY 90 June 17, 2022 10:58am January 30, 2023 2:51pm take 1 capsule by [facility] once daily before breakfast levothyroxine 50 mcg cap Take 50 mcg by mouth daily before breakfast. 0 Suspended take 1 capsule by mo [facility] once daily before breakfast levothyroxine 25 mcg cap Take 25 mcg by mouth daily before breakfast. 0 Active Comment on above: Take 25 mcg by mouth daily before breakfast. Take 50 mcg by mouth daily before breakfast. Take 1 tablet by [facility] daily before breakfast. lidocaine 0.04 mg/mg medicated patch (20 sources) Antiarrhythmic, Amide Local Anesthetic Start: apply 1 dose transdermal route once daily lidocaine (SALONPAS) 4 % patch Apply 1 Patch as directed once daily. 04/09/2023 Active Start: 04-08-2023 End: 04-21-2023 Lidocaine (Lidoderm) 5 % adh esive patch,medicated Discontinued 1 NMA TOPICAL DAILY April 08, 2023 1:00am April 21, 2023 12:05pm pain leave on most painful area for up to 12 hrs Start: 05-01-2022 End: 05-21-2022 lidocaine (SALONPAS) 4 % pat ch [The details of the medication are not available because there are pending changes by a home health clinician.] 14 Patch 0 05/01/2022 05/21/2022 Discontinued (Course of therapy completed) Start: 05-01-2022 End: 05-15-2022 lidocaine (SALONPAS) 4 % pat ch Apply 1 Patch as directed once daily for 14 days. Cut in half lengthwise and place on either side of sternal incision. Leave on for 12 hours then remove after 12 hours and replace with new one if needed for pain 14 Patch 0 05/01/2022 05/15/2022 Comment on above: Apply 1 Patch as dir ected once daily for 14 days. Cut in half lengthwise and place on either side of sternal incision. Leave on for 12 hours then remove after 12 hours and replace with new one if needed for pain [The details of the medication are not available because there are pending changes by a home health clinician.] Apply 1 Patch as dir ected once daily. lisinopril 20 mg oral tablet (20 sources) Angiotensin Converting Enzyme Inhibitor Start: 11-30-2024 take 1 tablet by mouth twice daily, then take 2 tablets by mouth twice daily Start: 11-30-2024 take 1 tablet by [facility] twice daily Start: 11-17-2024 End: 11-30-2024 take 1 tablet by mouth twice daily Lisinopril 10 mg tablet Discontinued 10 mg PO TWICE A DAY 180 November 17, 2024 11:46am November 30, 2024 8:35am Start: 10-04-2023 End: 11-17-2024 take 1 tablet by mouth twice daily Lisinopril 5 mg tablet Discontinued 5 mg PO TWICE A DAY 60 0 November 17, 2024 11:45am November 17, 2024 11:47am Start: 07-10-2023 End: 10-04-2023 take 1 tablet by mouth twice daily Lisinopril 10 mg tablet Discontinued 10 mg PO TWICE A DAY 60 October 04, 2023 9:30am October 04, 2023 2:04pm Start: 04-21-2023 End: 07-10-2023 take 1 tablet by mouth twice daily Lisinopril 5 mg tablet Discontinued 5 mg PO TWICE A DAY 60 May 03, 2023 10:45am July 10, 2023 10:18am bp Start: 04-08-2023 End: 04-21-2023 take 1 tablet by mouth once daily Lisinopril 5 mg tablet Discontinued 5 mg PO DAILY April 08, 2023 1:00am April 21, 2023 12:05pm Blood Pressure Start: 10-02-2022 End: 04-08-2023 take 1 tablet by mouth once daily Lisinopril 20 mg tablet Discontinued 20 mg PO DAILY 90 October 02, 2022 12:00am April 08, 2023 6:20pm Start: 06-17-2022 End: 10-02-2022 take 10 mg by mouth once daily Lisinopril 40 mg tablet Discontinued 10 mg PO DAILY June 17, 2022 8:30am October 02, 2022 1:58pm Start: 06-17-2022 End: 10-02-2022 take 10 mg by mouth once daily Lisinopril Discontinued 10 MG PO DAILY June 17, 2022 8:30am October 02, 2022 1:58pm Start: 05-01-2022 End: 04-01-2023 take 1 tablet by mouth once daily lisinopril (ZESTRIL) 10 mg tablet Take 1 tablet by mouth once daily. 90 tablet 0 05/27/2022 08/25/2022 Active Start: 02-15-2020 End: 06-17-2022 take 1 tablet by mouth once daily Lisinopril 40 mg tablet Discontinued 40 mg PO DAILY 90 3 January 12, 2022 5:23pm June 17, 2022 8:31am Start: 01-13-2016 End: 01-14-2021 take 1 tablet by mouth once daily Lisinopril 20 MG tablet Discontinued 20 mg PO DAILY January 13, 2016 1:00am January 14, 2021 10:17am Comment on above: Take 1 tablet by [facility] once daily. magnesium oxide 400 mg oral tablet (20 sources) Start: 04-08-2023 End: 04-21-2023 take 1 tablet by mouth twice daily Start: 05-01-2022 End: 05-31-2022 take 1 tablet by mouth once daily magnesium oxide (MAG-OX) 400 mg (241.3 mg magnesium) tablet Take 1 tablet by mouth once daily. 30 tablet 0 05/01/2022 Active Comment on above: Take 1 tablet by [facility] once daily. Take 1 tablet by [facility] two times a day. nitroglycerin 0.4 mg sublingual tablet (2 sources) Nitrate Vasodilator Start: 10-04-19 microencapsulated potassium chloride 10 meq extended release oral tablet (20 sources) Start: 05-02-19 End: 09-04-19 take 1 tablet by mouth once daily potassium chloride ER (KLOR-CON M10) 10 mEq tablet Indications: S/P CABG x 3 Take 1 tablet by mouth once daily. 30 tablet 2 06/05/2022 09/03/2022 Active Start: 05-21-2020 End: 09-18-2022 take 1 tablet by mouth twice daily Potassium Chloride 10 mEq tablet extended release Discontinued 10 meq PO TWICE A DAY 180 3 January 14, 2021 11:19am September 18, 2022 9:30am take 10 mEq by mouth once daily POTASSIUM CHLORIDE ORAL Take 10 mEq by mouth once daily. 0 Suspended Comment on above: Take 10 mEq by mouth once daily. Take 1 tablet by [facility] once daily for 7 days. Take 1 tablet by [facility] once daily for 14 days. Take 2 tablets by [facility] once daily for 3 days, THEN 1 tablet once daily. Take 1 tablet by [facility] once daily. prevagen capsule (2 sources) Start: 08-03-2024 take 1 capsule by [facility] once daily Start: 08-03-2024 take 1 capsule by [facility] once daily prevagen capsule Active PO daily August 03, 2024 12:00am tamsulosin hydrochloride 0.4 mg oral capsule (20 sources) alpha-Adrenergic Jerad Start: 06-25-2023 End: 09-20-2024 take 1 capsule by mouth twice daily Start: 04-21-2023 End: 06-25-2023 take 1 capsule by mouth once daily Tamsulosin 0.4 mg Capsule Discontinued 0.4 mg PO DAILY@1730 30 0 April 21, 2023 12:00am June 25, 2023 1:21pm Start: 05-01-2022 End: 04-01-2023 take 1 capsule by mouth once daily Tamsulosin (Flomax) 0.4 mg Capsule Discontinued 0.4 mg PO DAILY June 17, 2022 12:00am June 22, 2022 1:59pm Comment on above: Take 1 capsule by [facility] once daily. veggies supplement capsule (2 sources) Start: 08-03-2024 take 1 capsule by mouth once daily Start: 08-03-2024 take 1 capsule by [facility] once daily veggies supplement capsule Active PO daily August 03, 2024 12:00am Completed/Discontinued Medications Medication Drug Class(es) Dates Sig (Normalized) Sig (Original) acetaminophen 500 mg oral tablet (20 sources) Start: 04-08-2023 take 3 tablets by mouth four times daily acetaminophen (TYLENOL) 325 mg tablet 3 tablets by ORAL/FEEDING TUBE route four times daily. 04/08/2023 Active Start: 04-08-2023 End: 07-10-2023 take 2 tablets by mouth every eight hours Acetaminophen 500 mg Tablet Discontinued 1000 mg PO Q8H June 25, 2023 12:00am July 10, 2023 10:23am fever or pain Start: 04-08-2023 End: 04-21-2023 take 1000 mg by mouth every eight hours as needed Acetaminophen Active 1000 MG PO EVERY 8 HOURS NEEDED 50 April 21, 2023 11:59am Start: 06-17-2022 End: 04-08-2023 Acetaminophen (Tylenol) 325 mg Tablet Discontinued 500 mg PO EVERY 6 HOURS as needed for Pain June 17, 2022 12:00am April 08, 2023 6:13pm Start: 04-30-2022 End: 05-30-2022 take 2 tablets by mouth every six hours as needed acetaminophen (TYLENOL) 500 mg tablet Take 2 tablets by mouth every 6 hours as needed for pain. 100 tablet 0 04/30/2022 05/30/2022 Active Comment on above: Take 2 tablets by mo [facility] every 6 hours as needed for pain. 3 tablets by ORAL/FE EDING TUBE route four times daily. acetaminophen 300 mg / HYDROcodone bitartrate 5 mg oral tablet (15 sources) Opioid Agonist Start: 4 End: 4 Hydrocodone-Acetamin ophen (Vicodin 5-300 Mg Tablet) 1 EACH tablet Discontinued 1 - 2 {tbl} PO EVERY 4 HOURS NEEDED as needed for Pain August 15, 2013 12:00am August 20, 2013 8:08am [id number] actuat albuterol 0.09 mg/actuat metered dose inhaler (20 sources) beta2-Adrenergic Agonist Start: take 1 puff(s) by inhalation every four hours as needed for wheezing albuterol HFA (PROVENTIL HFA, VENTOLIN HFA) 90 mcg/actuation inhaler Inhale 1 Puff as instructed every 4 hours as needed for wheezing/shortness of breath. 05/06/2022 Active Start: 05-03-2022 End: 04-21-2023 Albuterol Sulfate (Ventolin Hfa) 90 mcg/actuation HFA aerosol inhaler Discontinued 1 NMA INHALATION EVERY 4 HOURS NEEDED as needed for Wheezing April 08, 2023 1:00am April 21, 2023 12:00pm Start: 05-03-2022 End: 04-21-2023 take 1 puff(s) by inhalation every four hours as needed Albuterol Sulfate (Ventolin Hfa) 90 mcg/actuation HFA aerosol inhaler Discontinued 1 PUFF INHALATION EVERY 4 HOURS NEEDED April 08, 2023 1:00am April 21, 2023 12:00pm Comment on above: Inhale 1 Puff as ins tructed every 4 hours as needed for wheezing/shortness of breath. albuterol 0.833 mg/ml / ipratropium bromide 0.167 mg/ml inhalation solution (13 sources) Anticholinergic, beta2-Adrenergic Agonist Start: End: take 1 mL by inhalation every six hours as needed for wheezing Ipratropium-Albute rol 0.5 mg-3 mg(2.5 mg base)/3 mL solution for nebulization Discontinued 3 mL INHALATION EVERY 6 HOURS as needed for wheezing/SOB April 08, 2023 1:00am June 17, 2023 10:44am Start: 04-08-2023 End: 06-17-2023 take 1 mL by inhalation every six hours Ipratropium-Albuterol Discontinued 3 ML INHALATION EVERY 6 HOURS April 08, 2023 1:00am June 17, 2023 10:44am Comment on above: Inhale 3 mL as instr ucted every 6 hours as needed for wheezing/shortness of breath. amLODIPine 5 mg oral tablet (20 sources) Dihydropyridine Calcium Channel Jerad Start: 02-14-19 End: 06-18-19 take 1 tablet by mouth once daily Amlodipine 5 mg tablet Discontinued 5 mg PO DAILY 90 January 14, 2021 11:17am June 17, 2022 8:29am Comment on above: Take 1 tablet by [facility] once daily. apixaban 5 mg oral tablet (20 sources) Factor Xa Inhibitor Start: 02-05-20 take 1 tablet by mouth every twelve hours ELIQUIS 5 mg tab(s) Take 1 tablet by mouth every 12 hours. 02/04/2023 Active Start: 04-30-2022 End: 06-16-2024 take 1 tablet by mouth twice daily Apixaban 5 mg tablet Discontinued 5 mg PO TWICE A DAY 180 December 31, 2023 1:08pm June 16, 2024 7:12pm blood thinner Comment on above: Take 1 tablet by [facility] twice daily. Take 1 tablet by [facility] every 12 hours. ascorbic acid 500 mg oral tablet (2 sources) Vitamin C Start: 07-10-19 End: 10-04-19 take 2 tablets by mouth at mealtime Ascorbic Acid (Vitamin C) 500 mg Tablet Discontinued 1000 mg PO WITH LUNCH 30 July 10, 2023 12:00am October 04, 2023 9:39am take the ascorbic acid and the ferrous sulfate at the same time daily......with a meal. cefadroxil 1000 mg oral tablet (2 sources) Cephalosporin Antibacterial Start: 07-12-19 End: 10-04-19 Cefadroxil 1 gram tablet Discontinued 1000 mg PO TWICE A DAY 14 0 July 12, 2023 12:00am October 04, 2023 9:38am ciprofloxacin 250 mg oral tablet (20 sources) Quinolone Antimicrobial Start: 04-28-19 End: 05-03-19 take 1 tablet by mouth twice daily Ciprofloxacin Hcl 250 mg tablet Discontinued 250 mg PO TWICE A DAY 10 5 0 April 28, 2023 12:00am May 02, 2023 12:00am May 03, 2023 12:06am Start: 08-15-2013 End: 08-20-2013 take 1 tablet by mouth twice daily Ciprofloxacin Hcl 500 MG tablet Discontinued 500 mg PO TWICE A DAY August 15, 2013 12:00am August 20, 2013 8:08am clopidogrel 75 mg oral tablet (20 sources) [id number] Platelet Inhibitor Start: 06-17-2023 End: 06-17-2023 take 1 tablet by mouth once daily Clopidogrel 75 mg tablet Discontinued 75 mg PO DAILY June 17, 2023 12:00am June 17, 2023 10:43am Start: 05-01-2022 End: 05-27-2023 Clopidogrel (Plavix) 75 mg T ablet Discontinued 75 mg PO June 17, 2022 12:00am April 08, 2023 6:17pm Comment on above: Take 1 tablet by [facility] once daily. Cranberry (4 sources) Non-Standardized Food Allergenic Extract, Non-Standardized Plant Allergenic Extract Start: 06-17-2023 End: 06-28-2023 take 1 capsule by mouth once daily Cranberry 500 mg capsule Discontinued 1000 mg PO DAILY June 17, 2023 12:00am June 28, 2023 1:58pm Start: 06-17-2023 take 1000 mg by mouth once teresa ly Cranberry Active 1000 MG PO DAILY June 17, 2023 12:00am 24 hr dilTIAZem hydrochloride 240 mg extended release oral capsule (20 sources) Calcium Channel Jerad Start: 06-17-2022 End: 11-19-2022 take 2 tablets by mouth once daily Diltiazem Hcl (Cardizem) 120 mg tablet Discontinued 240 mg PO DAILY 90 June 17, 2022 10:58am November 19, 2022 11:08am Start: 04-30-2022 End: 09-20-2024 take 1 capsule by mouth once daily Diltiazem Hcl 240 mg capsule,extended release 24hr Discontinued 240 mg PO DAILY 90 September 20, 2024 10:00am September 20, 2024 11:08am blood pressure Comment on above: Take 1 capsule by [facility] once daily. Hold for heart rate <60, SBP <100 docusate sodium 100 mg oral capsule (15 sources) Start: 08-15-2013 End: 08-20-2013 take 1 capsule by mouth twice daily Docusate Sodium (Colace) 100 MG capsule Discontinued 100 mg PO TWICE A DAY August 15, 2013 12:00am August 20, 2013 8:08am docusate sodium 50 mg / sennosides, long term 8.6 mg oral tablet (15 sources) Start: 04-08-2023 End: 08-03-2024 Sennosides-Docusate Sodium (Stool Softener-Stimulant Laxat) 8.6-50 mg Tablet Discontinued 2 {tbl} PO TWICE A DAY 120 0 July 10, 2023 12:00am August 03, 2024 11:17am Comment on above: Take 1 tablet by [facility] two times a day. ferrous sulfate 325 mg oral tablet (4 sources) Start: 06-25-2023 End: 08-03-2024 take 1 tablet by mouth once daily Ferrous Sulfate (Feosol) 325 mg (65 mg iron) tablet Discontinued 325 mg PO DAILY 30 0 July 10, 2023 10:22am August 03, 2024 11:15am iron furosemide 20 mg oral tablet (20 sources) Loop Diuretic Start: 06-05-2022 End: 04-01-2023 take 1 tablet by mouth once daily Furosemide (Lasix) 20 mg Tablet Discontinued 20 mg PO DAILY June 17, 2022 12:00am September 18, 2022 9:30am Start: 05-11-2022 End: 06-13-2022 take 2 tablets by mouth once daily, then take 1 tablet by mouth once daily furosemide (LASIX) 20 mg tablet Indications: S/P CABG x 3 Take 2 tablets by mouth once daily for 3 days, THEN 1 tablet once daily. 36 tablet 0 05/11/2022 06/13/2022 Active Start: 05-03-2022 End: 06-17-2022 take 1 tablet by mouth once daily Furosemide (Lasix) 40 mg tablet Discontinued 40 mg PO DAILY 2 May 03, 2022 12:00am June 17, 2022 8:29am Start: 05-01-2022 End: 05-19-2022 take 1 tablet by mouth once daily furosemide (LASIX) 20 mg tablet Take 1 tablet by mouth once daily for 14 days. 14 tablet 0 05/05/2022 05/11/2022 Discontinued Comment on above: [facility] tablet [facility] once daily for 7 days. [facility] once daily for 14 days. Take 2 tablets by mo [facility] once daily for 3 days, THEN 1 tablet once daily. [facility] once daily for 3 days. 12 hr guaiFENesin 600 mg extended release oral tablet (20 sources) Start: End: 05-15-2 023 take 1 tablet by mouth twice daily, then take 1 tablet by mouth every twelve hours Guaifenesin (Mucinex) 600 mg tablet extended release 12hr Discontinued 600 mg PO TWICE A DAY 14 7 0 May 03, 2022 12:00am June 22, 2022 1:37pm Comment on above: Take 600 mg by mouth twice daily. hydroCHLOROthiazide 25 mg oral tablet (20 sources) Thiazide Diuretic Start: End: take 1 tablet by mouth once daily Hydrochlorothiazide 25 mg tablet Discontinued 25 mg PO DAILY 90 3 January 12, 2022 5:23pm June 17, 2022 8:30am Start: 08-12-2013 End: 01-14-2021 take 1 capsule by mouth once daily Hydrochlorothiazide 12.5 MG capsule Discontinued 12.5 mg PO DAILY 30 0 August 12, 2013 12:00am January 14, 2021 10:16am Comment on above: Take 1 tablet by charbel th once daily. iv contrast (will be provided with radiology test) (2 sources) Start: 0 inject 1 dose intravenously once iv contrast (will be provided with radiology test) Indications: Benign neoplasm of meninges (HCC) MRI Brain Inject, intravenously, once for 1 dose.No IV access, insert saline lock prior to beginning of sedation, infusion, injection of imaging exam.Discontinue saline lock post exam. If Pt. has a central line or IVAD, may access for administration according to line specific nursing protocol.Once exam is complete flush line and de-access according to line specific nursing protocol in the MR contrast administration guidelines link 1 Each 0 04/04/2019 Suspended Start: 03-02-2019 inject 1 dose intravenously on ce iv contrast (will be provided with radiology test) Indications: Trigeminal nerve disorder , Meningioma (HCC) MRI Brain Inject, intravenously, once for 1 dose.No IV access, insert saline lock prior to beginning of sedation, infusion, injection of imaging exam.Discontinue saline lock post exam. If Pt. has a central line or IVAD, may access for administration according to line specific nursing protocol.Once exam is complete flush line and de-access according to line specific nursing protocol in the MR contrast administration guidelines link 1 Each 0 03/02/2019 Suspended Comment on above: MRI Brain Inject, in travenously, once for 1 dose.No IV access, insert saline lock prior to beginning of sedation, infusion, injection of imaging exam.Discontinue saline lock post exam. If Pt. has a central line or IVAD, may access for administration according to line specific nursing protocol.Once exam is complete flush line and de-access according to line specific nursing protocol in the MR contrast administration guidelines link lovastatin 20 mg oral tablet (20 sources) HMG-CoA Reductase Inhibitor Start: 02-14-19 End: 06-23-19 take 1 tablet by mouth once daily in the evening Lovastatin 20 mg tablet Discontinued 20 mg PO EVERY EVENING January 12, 2022 5:23pm June 22, 2022 1:56pm Comment on above: Take 1 tablet by charbel daily at bedtime. Magnesium Citrate,Mag Oxide (9 sources) Start: 06-18-19 End: 06-18-19 Magnesium Citrate,Mag Oxide Discontinued 400 MG PO June 16, 2022 11:00pm June 17, 2022 8:52am Start: 06-17-2022 End: 06-17-2022 Magnesium Citrate,Mag Oxide Discontinued 400 MG PO June 17, 2022 12:00am June 17, 2022 9:52am Magnesium Citrate,Mag Oxide 250 mg Capsule (2 sources) Start: 06-17-2022 End: 06-17-2022 Magnesium Citrate,Mag Oxide 250 mg Capsule Discontinued 400 mg PO June 17, 2022 12:00am June 17, 2022 9:52am melatonin 3 mg oral tablet (20 sources) Start: 04-08-2023 End: 06-17-2023 take 1 tablet by mouth at bedtime Melatonin 3 mg Tablet Discontinued 3 mg PO AT BEDTIME 30 0 April 21, 2023 12:00am June 17, 2023 10:45am Start: 04-08-2023 End: 04-21-2023 take 9 mg by mouth at bedtime Melatonin Discontinued 9 MG PO AT BEDTIME April 08, 2023 1:00am April 21, 2023 12:06pm Comment on above: Take 3 tablets by mo ut daily at bedtime. metoprolol tartrate 50 mg oral tablet (20 sources) beta-Adrenergic Jerad Start: 06-17-2023 End: 06-17-2023 take 1 tablet by mouth twice daily Metoprolol Tartrate 50 mg tablet Discontinued 50 mg PO TWICE A DAY June 17, 2023 12:00am June 17, 2023 10:45am Start: 09-18-2022 End: 04-08-2023 take 1 tablet by mouth twice daily Metoprolol Tartrate 50 mg tablet Discontinued 50 mg PO TWICE A DAY 180 3 November 19, 2022 11:34am April 08, 2023 6:21pm Start: 04-30-2022 End: 09-18-2022 take 1 tablet by mouth every eight hours Metoprolol Tartrate 50 mg tablet Discontinued 50 mg PO Q8H 90 3 June 17, 2022 10:59am September 18, 2022 9:31am Comment on above: Take 1 tablet by charbel th every 8 hours. Hold for heart rate <60, SBP <100 oxyCODONE hydrochloride 5 mg oral tablet (7 sources) Opioid Agonist Start: 06-21-19 24 End: 08-04-19 25 take 1 tablet by mouth every four hours as needed for pain Oxycodone 5 mg Tablet Discontinued 5 mg PO Q4H as needed for pain 14 7 0 July 10, 2023 August 03, 2024 11:17am History of open reduction and internal fixation (ORIF) procedure Status post fracture of right hip Other specified postprocedural states Personal history of (healed) traumatic fracture pantoprazole 40 mg delayed release oral tablet (2 sources) Proton Pump Inhibitor Start: 07-10-19 24 End: 10-04-19 24 take 1 tablet by mouth twice daily Pantoprazole 40 mg Tablet,Delayed Release (Dr/Ec) Discontinued 40 mg PO TWICE A DAY 60 0 July 10, 2023 12:00am October 04, 2023 9:38am phenazopyridine hydrochloride 100 mg oral tablet (15 sources) Start: 08-16-19 14 End: 08-21-19 14 take 1 tablet by mouth twice daily as needed Phenazopyridine 100 MG tablet Discontinued 100 mg PO TWICE A DAY as needed for DYSURIA August 15, 2013 12:00am August 20, 2013 8:08am propranolol hydrochloride 40 mg oral tablet (15 sources) beta-Adrenergic Jerad Start: 01-13-20 16 End: 05-22-19 21 take 1 tablet by mouth twice daily Propranolol 40 MG tablet Discontinued 40 mg PO TWICE A DAY January 13, 2016 1:00am May 21, 2020 4:16pm Turmeric extract (1 source) TURMERIC ORAL Ta ke by mouth. 0 Suspended Comment on above: Take by mouth. Problems Active Problems Problem Classification Problem Date Documented Da te Episodic/Chronic Acute myocardial infarction (20 sources) Myocardial infarction; Translations: [Non-ST elevation (NSTEMI) myocardial infarction] Onset: 3 Resolved: 3 04-15-2022 Chronic Cardiac dysrhythmias (20 sources) Atrial fibrillation; Translations: [Unspecified atrial fibrillation] Onset: 3 06-22-2022 Chronic Conditions associated with dizziness or vertigo (15 sources) Postural dizziness; Translations: [Dizziness and giddiness] 09-17-2021 Episodic Coronary atherosclerosis and other heart disease (20 sources) Preinfarction syndrome; Translations: [Unstable angina] 04-15-2022 Chronic Deficiency and other anemia (8 sources) Chronic anemia; Translations: [Anemia, unspecified] 04-09-2023 Episodic Deficiency and other anemia (7 sources) Anemia, unspecified; Translations: [Anemia, unspecified] 04-21-2023 Episodic Deficiency and other anemia (2 sources) Anemia; Translations: [Anemia, unspecified] 07-19-2023 Episodic Disorders of lipid metabolism (20 sources) Hyperlipidemia; Translations: [Hyperlipidemia, unspecified] Onset: 4 05-21-2020 Chronic E Codes: Fall (20 sources) Accidental fall ; Translations: [Unspecified fall, initial encounter] 04-01-2023 Episodic Essential hypertension (20 sources) Hypertensive disorder; Translations: [Essential (primary) hypertension] Onset: 4 05-21-2020 Chronic Fluid and electrolyte disorders (6 sources) Hypokalemia; Translations: [Hypokalemia] 06-17-2023 Episodic Fracture of neck of femur (hip) (6 sources) Closed fracture of hip; Translations: [Fracture of unspecified part of neck of right femur, initial encounter for closed fracture] 06-17-2023 Episodic Gastrointestinal hemorrhage (2 sources) Acute gastrointestinal hemorrhage; Translations: [Gastrointestinal hemorrhage, unspecified] 07-19-2023 Episodic Genitourinary symptoms and ill-defined conditions (14 sources) Retention of urine; Translations: [Retention of urine, unspecified] 04-21-2023 Episodic Hypertension with complications and secondary hypertension (6 sources) Hypertensive urgency ; Translations: [Hypertensive urgency] Onset: 4 04-05-2023 Chronic Immunizations and screening for infectious disease (2 sources) Infectious disease carrier; Translations: [Carrier of other specified bacterial diseases] 07-19-2023 Episodic Malaise and fatigue (20 sources) Fatigue; Translations: [Other fatigue] 01-29-2023 Episodic Nonspecific chest pain (18 sources) Chest pain; Translations: [Chest pain, unspecified] 04-15-2022 Episodic Nutritional deficiencies (14 sources) Iron deficiency; Translations: [Iron deficiency] 04-21-2023 Episodic Open wounds of head; neck; and trunk (6 sources) Laceration - injury; Translations: [Laceration] 06-17-2023 Episodic Other aftercare (9 sources) Long-term current use of anticoagulant; 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] 04-01-2023 Episodic Comment on above: Eliquis Other aftercare (1 source) shelter (current) use of anticoagulants; Translations: [Long-term (current) use of anticoagulants] 04-21-2023 Episodic Other aftercare (2 sources) Blood transfusion finding; Translations: [Blood transfusion, without reported diagnosis] 06-29-2023 Episodic Other and unspecified benign neoplasm (20 sources) Neoplasm of meninges; 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, unspecified] Onset: 9 06-02-2018 Chronic Other connective tissue disease (5 sources) Pain in left arm; Translations: [Pain in left arm] 05-20-2023 Episodic Other connective tissue disease (3 sources) Pain in left arm; Translations: [Pain in limb] 05-20-2023 Episodic Other connective tissue disease (1 source) Pain in right hand; Translations: [Pain in right hand] Onset: Episodic Other ear and sense organ disorders (13 sources) Hearing disorder; Translations: [Unspecified hearing loss, unspecified ear] 05-21-2020 Chronic Other fractures (14 sources) Fracture of multiple ribs ; Translations: [Multiple fractures of ribs, right side, initial encounter for closed fracture] 04-01-2023 Episodic Other fractures (4 sources) Multiple fractures of ribs, right side, initial encounter for closed fracture; Translations: [Closed fracture of multiple ribs, unspecified] Onset: 4 04-21-2023 Episodic Other fractures (8 sources) Closed fracture of multiple ribs; Translations: [Multiple fractures of ribs, right side, subsequent encounter for fracture with routine healing] Onset: 4 04-29-2023 Episodic Other fractures (2 sources) Multiple fractures of ribs, right side, subsequent encounter for fracture with routine healing; Translations: [Closed fracture of multiple ribs of right side with routine healing] Onset: 4 Episodic Other fractures (5 sources) Multiple fractures of ribs, unspecified side, initial encounter for closed fracture; Translations: [Closed fracture of multiple ribs, unspecified] 04-28-2023 Episodic Other hereditary and degenerative nervous system conditions (8 sources) Intention tremor; Translations: [Other specified forms of tremor] 04-21-2023 Chronic Other hereditary and degenerative nervous system conditions (1 source) Other specified forms of tremor; Translations: [Essential and other specified forms of tremor] 04-21-2023 Chronic Other injuries and conditions due to external causes (4 sources) Closed injury of head; Translations: [Unspecified injury of head, initial encounter] 06-17-2023 Episodic Other injuries and conditions due to external causes (4 sources) Injury of right facial nerve; Translations: [Injury of facial nerve, right side, initial encounter] 06-17-2023 Episodic Other injuries and conditions due to external causes (2 sources) Unspecified injury of head, initial encounter; Translations: [Head injury, unspecified] 06-17-2023 Episodic Other injuries and conditions due to external causes (2 sources) Injury of facial nerve, right side, initial encounter; Translations: [Injury to facial nerve] 06-17-2023 Episodic Other injuries and conditions due to external causes (2 sources) H/O: hip fracture; Translations: [Personal history of (healed) traumatic fracture] 07-19-2023 Episodic Other lower respiratory disease (12 sources) Pulmonary edema; Translations: [Chronic pulmonary edema] 05-03-2022 Chronic Other lower respiratory disease (11 sources) Dyspnea; Translations: [Shortness of breath] 05-03-2022 Episodic Other nervous system disorders (1 source) Trigeminal neuralgia Onset: 8 Episodic Other nervous system disorders (6 sources) General unsteadiness; Translations: [Unsteadiness on feet] 09-17-2021 Episodic Other nervous system disorders (20 sources) Trigeminal nerve disorder; Translations: [Disorder of trigeminal nerve, unspecified] 03-02-2019 Episodic Other nervous system disorders (1 source) Unsteadiness on feet; Translations: [Abnormality of gait] 06-17-2022 Episodic Other nervous system disorders (7 sources) H/O: trigeminal neuralgia; Translations: [Personal history of other diseases of the nervous system and sense organs] 04-28-2023 Episodic Other nervous system disorders (5 sources) Personal history of other diseases of the nervous system and sense organs; Translations: [Personal history of other disorders of nervous system and sense organs] 04-28-2023 Episodic Other nervous system disorders (1 source) Anesthesia of skin; Translations: [Anesthesia of skin] Onset: 5 Episodic Other nervous system disorders (1 source) Paresthesia of skin; Translations: [Paresthesia of skin] Onset: 5 Episodic Other non-traumatic joint disorders (4 sources) Pain in right knee; Translations: [Right knee pain] 06-18-2023 Episodic Other nutritional; endocrine; and metabolic disorders (20 sources) Obese class I; Translations: [Obesity, unspecified] Onset: 3 04-17-2022 Chronic Other nutritional; endocrine; and metabolic disorders (6 sources) Hypophosphatemia; Translations: [Other disorders of phosphorus metabolism] Onset: 4 04-05-2023 Chronic Other nutritional; endocrine; and metabolic disorders (8 sources) H/O: hypothyroidism; Translations: [Personal history of other endocrine, nutritional and metabolic disease] 04-21-2023 Episodic Other nutritional; endocrine; and metabolic disorders (11 sources) Personal history of other endocrine, nutritional and metabolic disease; Translations: [Personal history of other endocrine, metabolic, and immunity disorders] 04-21-2023 Episodic Pleurisy; pneumothorax; pulmonary collapse (20 sources) Hemothorax; Translations: [Hemothorax] Onset: 4 04-01-2023 Episodic Residual codes; unclassified (1 source) Other specified postprocedural states; Translations: [Personal history of surgery to other organs] 04-21-2023 Episodic Residual codes; unclassified (2 sources) History of operation on musculoskeletal system; Translations: [Other specified postprocedural states] 07-19-2023 Episodic Comment on above: 06/19/[address] Mookie dave-right hip cephalomedullary nailing Spondylosis; intervertebral disc disorders; other back problems (15 sources) Back problem; Translations: [Dorsopathy, unspecified] 05-21-2020 Episodic Thyroid disorders (8 sources) Hypothyroidism; Translations: [Hypothyroidism, unspecified] 01-15-2021 Chronic Thyroid disorders (2 sources) Sick-euthyroid syndrome; Translations: [Sick-euthyroid syndrome] 04-09-2023 Episodic Unclassified (1 source) Unknown / UNK(Unknown) Onset: 8 Urinary tract infections (12 sources) Urinary tract infectious disease; Translations: [Urinary tract infection, site not specified] 04-27-2023 Episodic Viral infection (12 sources) Disease caused by 2019-nCoV; Translations: [COVID-19] 05-03-2022 Episodic Past or Other Problems Problem Classification Problem Date Documented Date Episodic/Chronic Acute posthemorrhagic anemia (7 sources) Acute posthemorrhagic anemia; Translations: [Acute posthemorrhagic anemia] Onset: 04-02-2023 Episodic Coronary atherosclerosis and other heart disease (5 sources) Presence of aortocoronary bypass graft; Translations: [Aortocoronary bypass status] Onset: 04-30-2022 06-17-2022 Episodic Crushing injury or internal injury (7 sources) Traumatic hemothorax; Translations: [Traumatic hemothorax, initial encounter] Onset: 04-02-2023 04-08-2023 Episodic Fracture of upper limb (2 sources) Closed fracture of styloid process of ulna; Translations: [Nondisplaced fracture of right ulna styloid process, initial encounter for closed fracture] Onset: 03-25-2015 Resolved: 10-24-2015 10-24-2015 Episodic Other aftercare (6 sources) Drug therapy finding; 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] Onset: 04-02-2023 04-08-2023 Episodic Other fractures (7 sources) Closed fracture of multiple right ribs; Translations: [Multiple fractures of ribs, right side, initial encounter for closed fracture] Onset: 04-02-2023 04-08-2023 Episodic Other injuries and conditions due to external causes (7 sources) Traumatic injury; Translations: [Injury, unspecified, initial encounter] Onset: 04-01-2023 04-01-2023 Episodic Other lower respiratory disease (1 source) Shortness of breath; Translations: [SOB (shortness of breath)] Onset: 05-11-2022 Episodic Other nervous system disorders (20 sources) Tremor; Translations: [Tremor, unspecified] Onset: 10-24-2015 10-24-2015 Episodic Other nervous system disorders (6 sources) Acute pain due to injury; Translations: [Acute pain due to trauma] Onset: 04-06-2023 04-08-2023 Episodic Residual codes; unclassified (6 sources) Delirium; Translations: [Disorientation, unspecified] Onset: 04-06-2023 04-08-2023 Episodic Results Test Name Value Interpretation Reference Range Facility NCS and/or EMG Patienton NCS and/or EMG Patient [facility] Pulmonary Services/Neurology [address] [place] [address] MR#: [id number] Acct: [id number] Name: OLGA LINDSEY Rep #: [id number] : 1940 84 From: Blade Espino MD Referring Dr: Shira Brady MD Status: REG CLI Location: [facility] Date: 12/20/24 Sex: M C NCS and/or EMG Patient Report Ordering Doctor: Shira Brady DATE OF SERVICE: 12/20/24 Olga presents for electrodiagnostic testing of the right upper limb. He reports numbness and tingling in the right hand. Electrodiagnostic findings: Right median motor nerve demonstrates prolonged distal latency with reduced amplitude and reduced conduction velocity. Right ulnar motor response within normal limits. Prolonged right median F???wave. Prolonged right ulnar F???wave. Absent right median sensory latency at the wrist and palm. Needle EMG testing was performed in the right upper limb. Motor unit action potentials were of normal amplitude and duration. Electrodiagnostic impression: This is an abnormal study. 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 This consistent with a severe right carpal tunnel syndrome. Multi Select Codes Neurology Neurology Interp Codes: 26046-26 Musc test done w/n test comp (interp) and 67767-40 Nrv cndj tst 5-6 studies (interp) 12/20/241517 Date Blade Espino MD CC: Dr. Blade Espino MD; Dr. Shira Brady MD Date Dictated: 12/20/241515 Date Transcribed: 12/20/241515 Sourcing Intern: MARCEL Signed Normal [facility] Anion gap in Serum or Plasma Ordered By: Daniela Law on 11-17-2024 Anion gap [Moles/Vol] 9 mmol/L - [facility] BUN/creatinine ratioOrdered By: Daniela Law on 11-17-2024 Urea nitrogen/Creatinine [Mass ratio] 24.8 mg/mg High 11-27 [facility] Bilirubin, totalOrdered By: Daniela Law on 11-17-2024 Bilirubin [Mass/Vol] 0.37 mg/dL 0.00-1.30 [facility] Calculated very low density lipoprotein (VLDL) cholesterol measurementOrdered By: Daniela Law on 11-17-2024 Calculated very low density lipoprotein (VLDL) cholesterol measurement 11 mg/dL -40 [facility] Carbon dioxide, total [Moles /volume] in Central venous bloodOrdered By: Daniela Law on 11-17-2024 CO2 [Moles/Vol] 25.9 mmol/L 21.0-32.0 [facility] Cardiology Visit Reporton Cardiology Visit Report [facility] [address] [place], [place] [id number] OFFICE VISIT Date of Service: 11/17/24 MR#: [id number] Acct: [id number] Name: OLGA LINDSEY Rep #: [id number] : 1940 Provider: BOWEN Nam rts Age/Sex: 84/M Location: [facility] Status: Signed HPI HPI History of Present Illness Details: Olga Lindsey is an 84-year-old male who presents to the office today for a cardiovascular follow-up visit. Patient presented to [facility] emergency room on 04/15/2022 with complaints of chest pain, and exertional dyspnea. Patient was admitted for non-ST elevation WI and unstable angina. Patient underwent a cardiac catheterization on 04/16/2022 which demonstrated [place] multivessel coronary artery disease. He was then referred for coronary revascularization. He underwent CABG x3 on 04/20/[address] Prasad in situ mammary end-to-side mid LAD, vein graft ascending aorta end-to-side obtuse marginal 1, vein graft ascending aorta end-to-side posterior descending (PDA). He has a history of atrial fibrillation, hypertension, and hyperlipidemia. From a cardiac standpoint, the patient is doing well. He denies any palpitations, chest pain, pressure or heaviness. He denies SOB, Orthopnea, and PND. He does not have bleeding issues; no blood in urine, stool, or nosebleeds. He denies any decrease in energy level, myalgias, or claudication. He does acknowledge occasional bilateral ankle edema. He does not have sudden weight gain. He does have occasional lightheadedness with quick positional changes. He denies dizziness, syncopal or near syncopal episodes, and headaches. He states he monitors his blood pressures at home, and they have been trending up. 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: No Is patient in pain?: No Allergies No Known Allergies Allergy (Verified 11/17/24 11:36) Medications ???Medication ???Instructions ???Recorded ???Confirmed ???Type magnesium oxide 400 mg PO BID supplement #60 tabs 04/21/23 11/17/24 Rx acetaminophen 500 mg tablet 1,000 mg (2 x 500 mg) PO Q8H PRN 0 07/10/23 11/17/24 Rx fever or pain #180 tabs ergocalciferol (vitamin D2) 1,250 1,250 mcg PO QWEEK 10/04/2311/17 History mcg (50,000 unit) capsule nitroglycerin 0.4 mg sublingual 0.4 mg sublingual Q5-15M PRN chest 10/04/23 11/17/24 Rx tablet (Nitrostat) pain #25 tabs apixaban 5 mg tablet 5 mg PO BID [facility]11[facility]17/24 Rx [facility] #180 tabs Fruits supplement PO QDAY 08/03/24 11/17/24 History ferrous gluconate 324 mg (37.5 mg 324 mg PO QDAY 08/03/24 11/17/24 History iron) tablet prevagen PO QDAY 08/03/24 11/17/24 History veggies supplement PO QDAY 08/03/24 11/17/24 History aspirin 81 mg tablet,delayed 81 mg PO DAILY #90 tabs 09/20/24 1 Rx release (Adult Low Dose Aspirin) atorvastatin 40 mg tablet (Lipitor) 40 mg PO QHS cholesterol #90 ta bs 09/20/24 11/17/24 Rx carbamazepine 200 mg tablet 200 mg PO TID seziures #270 tabs 0 09/20/24 11/17/24 Rx (Tegretol) diltiazem HCl 240 mg 240 mg PO DAILY blood pressure #90 09/20/24 11/17/24 Rx capsule,extended release 24 hr caps hydralazine 50 mg tablet 50 mg PO BID #180 tabs 09/20/24 Rx levothyroxine 50 mcg tablet 50 mcg PO DAILY@0600 thyroid #90 0 09/20/24 11/17/24 Rx tabs tamsulosin 0.4 mg capsule 0.4 mg PO BID bladder #180 caps 11/17/24 Rx lisinopril 10 mg tablet 10 mg PO BID #180 tabs 11/17/24 Rx Ejection fraction %: 55 Have you fallen in the past year?: No PFSH Medical History (Reviewed 11/17/24 @ 11:36 by Daniela Law 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, 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-C) S/P right hip fracture 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 Colonization with drug-resistant bacteria Generalized weakness Symptomatic anemia Acute on chronic anemia Atrial fibrillation and flutter History of trigeminal neuralgia Transfusion of blood during current hospitalisation Rib fractures Hip fracture, right Right knee pain Bleeding tendency Heart attack Hearing loss, left Fall Laceration of right facial nerve Action tremor Longstanding persistent atrial fibrillation History of hypothyroidism Fall Hemothorax on right Multiple fractures of ribs of right side Atherosclerotic heart disease of [place] coronary artery without angina pectoris Unstable angina Non-ST elevated myocardial infarction Trigeminal nerve (more content not included)... Normal [facility] Chloride assayOrdered By: Manuel Law on 11-17-2024 Chloride [Moles/Vol] 104 mmol/L 98-108 [facility] Comprehensive Metabolic Prof ilon 11-17-2024 Albumin [Mass/Vol] 4.4 g/dL Normal 3.4-4.8 [facility] Comment on above: Performed By: #### L 500.4050, L500.4100, L501.5200 #### [facility] [address] [facility] [address] Albumin/Globulin [Mass ratio] 1.7 {ratio} Normal 0.9-2.4 [facility] Comment on above: Performed By: #### L 500.4050, L500.4100, L501.5200 #### [facility] [address] [facility] [address] ALK PHOS 112 U/L Normal 40-129 [facility] Comment on above: Performed By: #### L 500.4050, L500.4100, L501.5200 #### [facility] [address] [facility] [address] ALT [Catalytic activity/Vol] 24 U/L Normal <=46 [facility] Comment on above: Performed By: #### L 500.4050, L500.4100, L501.5200 #### [facility] [address] [place], [address] AST [Catalytic activity/Vol] 26 U/L Normal <=37 [facility] Comment on above: Performed By: #### L 500.4050, L500.4100, L501.5200 #### [facility] [address] [place], [address] Bilirubin [Mass/Vol] 0.37 mg/dL Normal 0.00-1.30 [facility] Comment on above: Performed By: #### L 500.4050, L500.4100, L501.5200 #### [facility] [address] [place], [address] BUN/CRE 24.8 RATIO High 10-20 [facility] Comment on above: Performed By: #### L 500.4050, L500.4100, L501.5200 #### [facility] [address] [place], [address] Calcium [Mass/Vol] 10.3 mg/dL Normal 7.6-11.0 [facility] Comment on above: Performed By: #### L 500.4050, L500.4100, L501.5200 #### [facility] [address] [place], [address] Chloride [Moles/Vol] 104 mmol/L Normal 98-108 [facility] Comment on above: Performed By: #### L 500.4050, L500.4100, L501.5200 #### [facility] [address] [place], [address] CO2 [Moles/Vol] 25.9 mmol/L Normal 21.0-32.0 [facility] Comment on above: Performed By: #### L 500.4050, L500.4100, L501.5200 #### [facility] [address] [place], [address] Creatinine [Mass/Vol] 0.72 mg/dL Normal 0.70-1.20 [facility] Comment on above: Performed By: #### L 500.4050, L500.4100, L501.5200 #### [facility] [address] [place], [address] GAP 9 Normal 5-15 [facility] Comment on above: Performed By: #### L 500.4050, L500.4100, L501.5200 #### [facility] [address] [place], [address] GFR/1.73 sq M.predicted among non-blacks MDRD (S/P/Bld) [Vol rate/Area] 91 mL/min/{1.73_m2} Normal >60 [facility] Comment on above: Result Comment: mL/m in/1.73m2 CKD-EPI Creatinine Equation (2020) Performed By: #### L 500.4050, L500.4100, L501.5200 #### [facility] [address] [place], [address] Globulin (S) [Mass/Vol] 2.7 g/dL Normal 2.2-4.2 [facility] Comment on above: Performed By: #### L 500.4050, L500.4100, L501.5200 #### [facility] [address] [place], [address] Glucose [Mass/Vol] 98 mg/dL Normal 70-99 [facility] Comment on above: Performed By: #### L 500.4050, L500.4100, L501.5200 #### [facility] [address] [place], [address] Potassium [Moles/Vol] 4.3 mmol/L Normal 3.3-5.1 [facility] Comment on above: Performed By: #### L 500.4050, L500.4100, L501.5200 #### [facility] [address] [place], [address] Sodium [Moles/Vol] 139 mmol/L Normal 133-145 [facility] Comment on above: Performed By: #### L 500.4050, L500.4100, L501.5200 #### [facility] [address] [place], [address] T PROT 7.1 g/dL Normal 5.9-8.4 [facility] Comment on above: Performed By: #### L 500.4050, L500.4100, L501.5200 #### [facility] [address] [place], [address] Urea nitrogen [Mass/Vol] 18 mg/dL Normal 4-19 [facility] Comment on above: Performed By: #### L 500.4050, L500.4100, L501.5200 #### [facility] [address] [place], [address] Glomerular filtration rate ( GFR) estimation/1.73 sq m using serum, plasma, or whole bOrdered By: Daniela Law on 11-17-2024 GFR/1.73 sq M.predicted among non-blacks MDRD (S/P/Bld) [Vol rate/Area] 91 mL/min/{1.73_m2} >60 [facility] Comment on above: mL/min/1.73m2 CKD-EP I Creatinine Equation (2020) LDL calc ser/plasOrdered By: Daniela Law on 11-17-2024 Cholesterol in LDL [Mass/Vol] 63 mg/dL [facility] Comment on above: Lbindmcqwh=308-344 m g/dL & Higher Ywmm=645 mg/dL or greaterFriedwald Equation for LDL-C Laboratory - Chemistry and C hemistry - challengeOrdered By: Daniela Law on 11-17-2024 AST [Catalytic activity/Vol] 26 U/L <38 [facility] Lipid Profileon 11-17-2024 CHOL:HDL 1.92 Normal [facility] Comment on above: Performed By: #### L 500.4050, L500.4100, L501.5200 #### [facility] [address] [place], [address] Cholesterol [Mass/Vol] 155 mg/dL Normal <=200 [facility] Comment on above: Result Comment: Chol esterol level, Desirable <200 mg/dL Borderline high cholesterol 200-239 mg/dL High cholesterol >=240 mg/dL Recommendations of the NCEP Adult Treatment Panel for the following risk-cutoff thresholds for the [place] Citizen population. Performed By: #### L 500.4050, L500.4100, L501.5200 #### [facility] [address] [place], [address] Cholesterol in HDL [Mass/Vol] 81 mg/dL Normal [facility] Comment on above: Result Comment: Nithya onal Cholesterol Education Program (NCEP) guidelines: <40 mg/dL: Low HDL-cholesterol (major risk factor for CHD) >= 60 mg/dL: High HDL-cholesterol (negative risk factor for CHD) HDL-cholesterol is affected by a number of factors, e.g. smoking, exercise, hormones, sex and age. Performed By: #### L 500.4050, L500.4100, L501.5200 #### [facility] [address] [place], [address] Cholesterol in LDL [Mass/Vol] 63 mg/dL Normal [facility] Comment on above: Result Comment: Bord kgrpdd=369-702 mg/dL Higher Jhon=668 mg/dL or greater Friedwald Equation for LDL-C Performed By: #### L 500.4050, L500.4100, L501.5200 #### [facility] [address] [place], [address] Cholesterol in VLDL [Mass/Vol] 11 mg/dL Normal 5-40 [facility] Comment on above: Performed By: #### L 500.4050, L500.4100, L501.5200 #### [facility] [address] [place], [address] Triglyceride [Mass/Vol] 57 mg/dL Normal [facility] Comment on above: Result Comment: The drugs N-Acetylcysteine and Metamizole may falsely depress this assay. Normal range: <150 mg/dL Borderline High: 150-199 mg/dL High: 200-499 mg/dL Very High: >500 mg/dL Performed By: #### L 500.4050, L500.4100, L501.5200 #### [facility] [address] [place], [address] Magnesiumon 11-17-2024 Magnesium [Mass/Vol] 2.2 mg/dL Normal 1.5-2.2 [facility] Comment on above: Performed By: #### L 500.4050, L500.4100, L501.5200 #### [facility] [address] [place], [address] Magnesium measurement (mass/ volume)Ordered By: Daniela Law on 11-17-2024 Magnesium (Unsp spec) [Mass/Vol] 2.2 mg/dL 1.5-2.2 [facility] Potassium measurement (mass/ volume)Ordered By: Daniela Law on 11-17-2024 Potassium (Unsp spec) [Mass/Vol] 4.3 mmol/L 3.3-5.1 [facility] Screening total cholesterol/ high density lipoprotein (HDL) cholesterol ratioOrdered By: Daniela Law on 11-17-2024 Cholesterol.total/Fidelia sterol in HDL [Mass ratio] 1.92 {ratio} [facility] Serum creatinine measurement (mass/volume)Ordered By: Daniela Law on 11-17-2024 Creatinine [Mass/Vol] 0.72 mg/dL 0.70-1.20 [facility] Serum globulin measurementOr dered By: Daniela Law on 11-17-2024 Globulin (S) [Mass/Vol] 2.7 g/dL 2.2-4.2 [facility] Serum glucose measurement (m ass/volume)Ordered By: Daniela Law on 11-17-2024 Glucose [Mass/Vol] 98 mg/dL 70-99 [facility] Serum or plasma alanine tesfaye otransferase (ALT) measurementOrdered By: Daniela Law on 11-17-2024 ALT [Catalytic activity/Vol] 24 U/L <47 [facility] Serum or plasma albumin betty urement (mass/volume)Ordered By: Daniela Law on 11-17-2024 Albumin [Mass/Vol] 4.4 g/dL 3.4-4.8 [facility] Serum or plasma albumin/glob ulin mass ratioOrdered By: Daniela Law on 11-17-2024 Albumin/Globulin [Mass ratio] 1.7 {ratio} 0.9-2.4 [facility] Serum or plasma alkaline ro sphatase measurementOrdered By: Daniela Law on 11-17-2024 ALP [Catalytic activity/Vol] 112 U/L 40-129 [facility] Serum or plasma calcium betty urement (mass/volume)Ordered By: Daniela Law on 11-17-2024 Calcium [Mass/Vol] 10.3 mg/dL 7.6-11.0 [facility] Serum or plasma cholesterol in HDL measurement (mass/volume)Ordered By: Daniela Law on 11-17-2024 Cholesterol in HDL [Mass/Vol] 81 mg/dL >40 [facility] Comment on above: National Cholesterol Education Program (NCEP) guidelines:<40 mg/dL: Low HDL-cholesterol (major risk factor for CHD)>= 60 mg/dL: High HDL-cholesterol (negative risk factor for CHD)HDL-cholesterol is affected by a number of factors, e.g. smoking, exercise, hormones, sex and age. Serum or plasma cholesterol measurement (mass/volume)Ordered By: Daniela Law on 11-17-2024 Cholesterol [Mass/Vol] 155 mg/dL <201 [facility] Comment on above: Cholesterol level, D esirable <200 mg/dLBorderline high cholesterol 200-239 mg/dLHigh cholesterol >=240 mg/dLRecommendations of the NCEP Adult Treatment Panel for the following risk-cutoff thresholds for the [place] population. Serum or plasma urea nitroge n measurement (mass/volume)Ordered By: Daniela Law on 11-17-2024 Urea nitrogen [Mass/Vol] 18 mg/dL 4-19 [facility] Sodium levelOrdered By: Celia Law on 11-17-2024 Sodium [Moles/Vol] 139 mmol/L 133-145 [facility] Total proteinOrdered By: Yobany jesus Law on 11-17-2024 Protein [Mass/Vol] 7.1 g/dL 5.9-8.4 [facility] Triglycerides measurementOrd ered By: Daniela Thanh on 11-17-2024 Triglyceride [Mass/Vol] 57 mg/dL <199 [facility] Comment on above: The drugs N-Acetylcy steine and Metamizole may falsely depress this assay. Normal range: <150 mg/dLBorderline High: 150-199 mg/dLHigh: 200-499 mg/dLVery High: >500 mg/dL Cardiology Visit Reporton Cardiology Visit Report [facility] [address] [place] [address] OFFICE VISIT Date of Service: 08/03/24 MR#: [id number] Acct: [id number] Name: OLGA LINDSEY Rep #: [id number] : 1940 Provider: ZOILA Jay Age/Sex: 84/M Location: [facility] [place] Status: Signed HPI HPI History of Present Illness Details: Olga Lindsey is an 84-year-old male who presents to the office today for a cardiovascular follow-up visit. Patient presented to [facility] emergency room on 04/15/2022 with complaints of chest pain, and exertional dyspnea. Patient was admitted for non-ST elevation WI and unstable angina. Patient underwent a cardiac catheterization on 04/16/2022 which demonstrated [place] multivessel coronary artery disease. He was then referred for coronary revascularization. He underwent CABG x3 on 04/20/[address] Prasad in situ mammary end-to-side mid LAD, vein graft ascending aorta end-to-side obtuse marginal 1, vein graft ascending aorta end-to-side posterior descending (PDA). He has a history of atrial fibrillation, hypertension, and hyperlipidemia. pt tells me that he does occasionally have left sided chest discomfort. It is not brought on by anything in particular. It only lasts less than 5 minutes. He has never thought about taking a NTG for this. He does not have any palpitations that he is aware of. He does not have any lightheadedness/dizzi ness. He does not have any edema. He does not have any worsening SOB. Intake Vital Signs 10/04/23 09:35 08/03/24 11:08 Height 5 ft 10 in 5 ft 10 in Weight: 188 lb 189 lb BMI 26.9 27.1 BP 177/89 H 157/79 H Blood Pressure Location Lt brachial Lt brachial Position Sitting Sitting Respiration 18 18 Pulse 77 71 Pulse Source Monitor Monitor Pulse Oximetry (%) 97 Intake Visit Reasons: 6 M [employer] Required: No Accompanied by: Daughter Is patient in pain?: No Allergies No Known Allergies Allergy (Verified 08/03/24 11:08) Medications ???Medication ???Instructions ???Recorded ???Confirmed ???Type magnesium oxide 400 mg PO BID supplement #60 tabs 04/21/23 08/03/24 Rx acetaminophen 500 mg tablet 1,000 mg (2 x 500 mg) PO Q8H PRN 0 07/10/23 08/03/24 Rx fever or pain #180 tabs aspirin 81 mg tablet,delayed 81 mg PO DAILY 10/04/23 08/03/24 H istory release (Adult Low Dose Aspirin) ergocalciferol (vitamin D2) 1,250 1,250 mcg PO QWEEK 10/04/2308/03 History mcg (50,000 unit) capsule nitroglycerin 0.4 mg sublingual 0.4 mg sublingual Q5-15M PRN chest 10/04/23 08/03/24 Rx tablet (Nitrostat) pain #25 tabs diltiazem HCl 240 mg 240 mg PO DAILY blood pressure #90 12/14/23 08/03/24 Rx capsule,extended release 24 hr caps levothyroxine 50 mcg tablet 50 mcg PO DAILY@0600 thyroid #90 1 02/12/23 08/03/24 Rx tabs lisinopril 5 mg tablet 5 mg PO BID #180 tabs 12/14/23 Rx tamsulosin 0.4 mg capsule 0.4 mg PO BID bladder #180 caps 08/03/24 Rx atorvastatin 40 mg tablet (Lipitor) 40 mg PO QHS cholesterol #90 ta bs 04/03/24 08/03/24 Rx carbamazepine 200 mg tablet 200 mg PO TID seziures #90 tabs 08/03/24 Rx (Tegretol) apixaban 5 mg tablet 5 mg PO BID [facility]/0208/03/24 Rx [facility] #180 tabs Fruits supplement PO QDAY 08/03/24 08/03/24 History ferrous gluconate 324 mg (37.5 mg 324 mg PO QDAY 08/03/24 08/03/24 History iron) tablet hydralazine 50 mg tablet 50 mg PO BID 08/03/24 08/03/24 His tory prevagen PO QDAY 08/03/24 History veggies supplement PO QDAY 08/03/24 08/03/24 History Ejection fraction %: 55 Have you fallen in the past year?: No [facility] Medical History S/P right hip fracture 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 Colonization with drug-resistant bacteria Generalized weakness Symptomatic anemia Acute on chronic anemia Atrial fibrillation and flutter History of trigeminal neuralgia Transfusion of blood during current hospitalisation Rib fractures Hip fracture, right Right knee pain Bleeding tendency Heart attack Hearing loss, left Fall Laceration of right facial nerve Action tremor Longstanding persistent atrial fibrillation History of hypothyroidism Fall Hemothorax on right Multiple fractures of ribs of right side Atherosclerotic heart disease of [place] coronary artery without angina pectoris Unstable angina Non-ST elevated myocardial infarction Trigeminal nerve disease Brainstem tumor Hyperlipemia Back problem Hypertension Surgical History History of open reduction and internal fixation (ORIF) procedure History of chest tube placement Status post aorto-coronary artery bypass graft Hx of (more content not included)... Normal [facility] Basophil percentageOrdered B y: Lucille Colindres on 06-21-2023 Chloride [Moles/Vol] 102 mmol/L 98-107 [facility] Glucose [Mass/Vol] 116 mg/dL 74-106 [facility] Comment on above: Fasting Glucose resu lt from 100 to 125 mg/dL suggests IMPAIRED HOMEOSTASIS per A.D.A. criteria. Hemoglobin (Bld) [Mass/Vol] 7.3 g/dL 13.0-16.5 [facility] Potassium [Moles/Vol] 4.0 mmol/L 3.5-5.1 [facility] Sodium [Moles/Vol] 132 mmol/L 136-145 [facility] WBC (Bld) [#/Vol] 7.2 10*3/uL 4.4-11.0 [facility] COVID-19 virus antigen assay Ordered By: Katerina Moreno on 06-21-2023 SARS-CoV-2 (COVID-19) Ag IA.rapid Ql (Resp) [facility] Determination of erythrocyte mean corpuscular volume (MCV)Ordered By: Lucille Colindres on 06-21-2023 MCV (RBC) [Entitic vol] 88.0 fL 80-94 [facility] Erythrocyte distribution wid th ratioOrdered By: Lucille Colindres on 06-21-2023 Erythrocyte distribution width (RBC) [Ratio] 15.9 % 11.6-14.6 [facility] Erythrocyte distribution wid th standard deviationOrdered By: Lucille Colindres on 06-21-2023 Erythrocyte distribution width (RBC) [Entitic vol] 51.5 fL 35.1-43.9 [facility] Hematocrit Auto (Bld) [Volum e fraction]Ordered By: Lucille Colindres on 06-21-2023 Hematocrit (Bld) [Volume fraction] 22.8 % 40-54 [facility] - Chemistry and C hemistry - challengeOrdered By: Lucille Colindres on 06-21-2023 CO2 [Moles/Vol] 27.0 mmol/L 21.0-32.0 [facility] Urea nitrogen/Creatinine [Mass ratio] 45.9 mg/mg 10-20 [facility] - Hematology and Cell countsOrdered By: Lucille Colindres on 06-21-2023 MCH (RBC) [Entitic mass] 28.2 pg 27.0-32.0 [facility] MCHC (RBC) [Mass/Vol] 32.0 g/dL 32-36 [facility] Platelet mean volume (Bld) [Entitic vol] 10.2 fL 6.2-12.0 [facility] Platelets (Bld) [#/Vol] 133 10*3/uL 150-450 [facility] No Panel InformationOrdered By: Lucille Colindres on 06-21-2023 Estimated Creatinine Clearance Calc 73.51 ml/min [facility] Estimated GFR (MDRD) Amer 177 mL/min >60 [facility] Comment on above: GFR Calc Estimated GFR (MDRD) Non-Af Amer 147 mL/min >60 [facility] Comment on above: Non- GFR Calc RBC Auto (Bld) [#/Vol]Ordere d By: Lucille Colindres on 06-21-2023 RBC (Bld) [#/Vol] 2.59 10*6/uL 4.6-6.2 [facility] Serum or plasma calcium betty urement (mass/volume)Ordered By: Lucille Colindres on 06-21-2023 Calcium [Mass/Vol] 9.2 mg/dL 8.5-10.1 [facility] Serum or plasma creatinine m easurement (mass/volume)Ordered By: Lucille Colindres on 06-21-2023 Creatinine [Mass/Vol] 0.57 mg/dL 0.70-1.30 [facility] Comment on above: The validity of the calculated GFR & GFRAA in patients over 70 years has not been determined. Clinical correlation is essential. Serum or plasma urea nitroge n measurement (mass/volume)Ordered By: Lucille Colindres on 06-21-2023 Urea nitrogen [Mass/Vol] 26 mg/dL 7-18 [facility] Thin prep Papanicolaou smear with manual screeningOrdered By: Lucille Colindres on 06-21-2023 Thin prep Papanicolaou smear with manual screening 3 5-15 [facility] Activated partial thrombopla stin time (aPTT) in platelet poor plasma by coagulation aOrdered By: Raz Putnam on 06-19-2023 aPTT Coag (PPP) [Time] 37.4 s 24.1-36.2 [facility] - CoagulationOrde red By: Raz Putnam on 06-19-2023 INR Coag (Bld) [Relative time] 1.4 {INR} [facility] PT Coag (PPP) [Time] 16.8 s 11.7-14.9 [facility] Absolute lymphocyte countOrd ered By: Lucille Colindres on 06-18-2023 Lymphocytes Auto (Unsp spec) [#/Vol] 1.32 10*3/uL 0.83-4.51 [facility] Automated lymphocyte count a s percentage of total leukocytesOrdered By: Lucille Colindres on 06-18-2023 Lymphocytes/100 WBC Auto (Unsp spec) 15.3 % 19-41 [facility] Basophil percentageOrdered B y: Lucille Colindres on 06-18-2023 Basophil percentage 3.2 mg/dL 2.5-4.9 [facility] Basophils/100 WBC (Bld) 0.6 % 0-1 [facility] Bilirubin [Mass/Vol] 0.60 mg/dL 0.20-1.00 [facility] Comment on above: For patients on eltr ombopag therapy, use of Dimension [place] TBIL is not recommended. Eosinophils/100 WBC (Bld) 4.6 % 0-5 [facility] Monocytes/100 WBC (Bld) 8.5 % 0-10 [facility] Neutrophils (Bld) [#/Vol] 6.1 10*3/uL 2.0-7.7 [facility] Neutrophils/100 WBC (Bld) 70.7 % 47-70 [facility] Protein [Mass/Vol] 5.9 g/dL 6.4-8.2 [facility] Immature granulocytes/100 WB C Auto (Bld)Ordered By: Lucille Colindres on 06-18-2023 Immature granulocytes/100 WBC (Bld) 0.300 % 0.0-0.9 [facility] Comment on above: IG% - Immature Granu locytes (promyelocytes, myelocytes and metamyelocytes) > 1% indicates that a LEFT SHIFT is Present. Laboratory - Chemistry and C hemistry - challengeOrdered By: Lucille Colindres on 06-18-2023 Albumin/Globulin [Mass ratio] 1.0 {ratio} 0.9-2.4 [facility] ALP [Catalytic activity/Vol] 77 U/L 45-117 [facility] ALT [Catalytic activity/Vol] 18 U/L 16-61 [facility] Globulin (S) [Mass/Vol] 3.0 g/dL 2.2-4.2 [facility] Magnesium [Mass/Vol] 1.8 mg/dL 1.6-2.6 [facility] - Hematology and Cell countsOrdered By: Lucille Colindres on 06-18-2023 Nucleated RBC/100 WBC (Bld) [Ratio] 0 % 0-5 [facility] Thin prep Papanicolaou smear with manual screeningOrdered By: Lucille Colindres on 06-18-2023 Thin prep Papanicolaou smear with manual screening 2.9 g/dL 3.2-5.0 [facility] Thin prep Papanicolaou smear with manual screening 12 U/L 15-37 [facility] Absolute lymphocyte countOrd ered By: Ju Garcia on 06-17-2023 Lymphocytes Auto (Unsp spec) [#/Vol] 1.03 10*3/uL 0.83-4.51 [facility] Activated partial thrombopla stin time (aPTT) in platelet poor plasma by coagulation aOrdered By: Ju Garcia on 06-17-2023 aPTT Coag (PPP) [Time] 35.6 s 24.1-36.2 [facility] Automated lymphocyte count a s percentage of total leukocytesOrdered By: Ju Garcia on 06-17-2023 Lymphocytes/100 WBC Auto (Unsp spec) 11.6 % 19-41 [facility] Basophil percentageOrdered B y: Ju Garcia on 06-17-2023 Basophils/100 WBC (Bld) 0.4 % 0-1 [facility] Chloride [Moles/Vol] 108 mmol/L 98-107 [facility] Eosinophils/100 WBC (Bld) 1.2 % 0-5 [facility] Glucose [Mass/Vol] 114 mg/dL 74-106 [facility] Comment on above: Fasting Glucose resu lt from 100 to 125 mg/dL suggests IMPAIRED HOMEOSTASIS per A.D.A. criteria. Hemoglobin (Bld) [Mass/Vol] 11.5 g/dL 13.0-16.5 [facility] Monocytes/100 WBC (Bld) 6.7 % 0-10 [facility] Neutrophils (Bld) [#/Vol] 7.1 10*3/uL 2.0-7.7 [facility] Neutrophils/100 WBC (Bld) 79.2 % 47-70 [facility] Potassium [Moles/Vol] 3.3 mmol/L 3.5-5.1 [facility] Sodium [Moles/Vol] 140 mmol/L 136-145 [facility] WBC (Bld) [#/Vol] 8.9 10*3/uL 4.4-11.0 [facility] Determination of erythrocyte mean corpuscular volume (MCV)Ordered By: Ju Garcia on 06-17-2023 MCV (RBC) [Entitic vol] 87.5 fL 80-94 [facility] Erythrocyte distribution wid th ratioOrdered By: Ju Garcia on 06-17-2023 Erythrocyte distribution width (RBC) [Ratio] 15.8 % 11.6-14.6 [facility] Erythrocyte distribution wid th standard deviationOrdered By: Ju Garcia on 06-17-2023 Erythrocyte distribution width (RBC) [Entitic vol] 50.4 fL 35.1-43.9 [facility] Hematocrit Auto (Bld) [Volum e fraction]Ordered By: Ju Garcia on 06-17-2023 Hematocrit (Bld) [Volume fraction] 36.5 % 40-54 [facility] Immature granulocytes/100 WB C Auto (Bld)Ordered By: Ju Garcia on 06-17-2023 Immature granulocytes/100 WBC (Bld) 0.900 % 0.0-0.9 [facility] Comment on above: IG% - Immature Granu locytes (promyelocytes, myelocytes and metamyelocytes) > 1% indicates that a LEFT SHIFT is Present. Laboratory - Chemistry and C hemistry - challengeOrdered By: Ju Garcia on 06-17-2023 CO2 [Moles/Vol] 28.0 mmol/L 21.0-32.0 [facility] Urea nitrogen/Creatinine [Mass ratio] 19.5 mg/mg 10-20 [facility] Laboratory - CoagulationOrde red By: Ju Garcia on 06-17-2023 INR Coag (Bld) [Relative time] 1.3 {INR} [facility] PT Coag (PPP) [Time] 16.2 s 11.7-14.9 [facility] Laboratory - Hematology and Cell countsOrdered By: Ju Garcia on 06-17-2023 MCH (RBC) [Entitic mass] 27.6 pg 27.0-32.0 [facility] MCHC (RBC) [Mass/Vol] 31.5 g/dL 32-36 [facility] Nucleated RBC/100 WBC (Bld) [Ratio] 0 % 0-5 [facility] Platelet mean volume (Bld) [Entitic vol] 8.9 fL 6.2-12.0 [facility] Platelets (Bld) [#/Vol] 165 10*3/uL 150-450 [facility] No Panel InformationOrdered By: Lucille Colindres on 06-17-2023 Vitamin D 25-Hydroxy 45.6 ng/mL [facility] Comment on above: Vitamin D 25(OH) Sta tus Range Deficiency <20 ng/mL (50nmol/L) Insufficiency 20 - 30 ng/mL (50 - 75 nmol/L) Sufficiency 30 - 100 ng/mL (75 - 250 nmol/L) Toxicity >100 ng/mL (>250 nmol/L) No Panel InformationOrdered By: Ju Garcia on 06-17-2023 Estimated Creatinine Clearance Calc 81.40 ml/min [facility] Estimated GFR (MDRD) Amer 161 mL/min >60 [facility] Comment on above: GFR Calc Estimated GFR (MDRD) Non-Af Amer 133 mL/min >60 [facility] Comment on above: Non- GFR Calc RBC Auto (Bld) [#/Vol]Ordere d By: Ju Garcia on 06-17-2023 RBC (Bld) [#/Vol] 4.17 10*6/uL 4.6-6.2 [facility] Serum or plasma calcium betty urement (mass/volume)Ordered By: Ju Garcia on 06-17-2023 Calcium [Mass/Vol] 10.1 mg/dL 8.5-10.1 [facility] Serum or plasma creatinine m easurement (mass/volume)Ordered By: Ju Garcia on 06-17-2023 Creatinine [Mass/Vol] 0.61 mg/dL 0.70-1.30 [facility] Comment on above: The validity of the calculated GFR & GFRAA in patients over 70 years has not been determined. Clinical correlation is essential. Serum or plasma urea nitroge n measurement (mass/volume)Ordered By: Ju Garcia on 06-17-2023 Urea nitrogen [Mass/Vol] 12 mg/dL 7-18 [facility] Thin prep Papanicolaou smear with manual screeningOrdered By: Ju Garcia on 06-17-2023 Thin prep Papanicolaou smear with manual screening 4 5-15 [facility] XR Chest PA and Lateralon IMPRESSION: Stable chest. Stable pleural fluid and thickening on the right. Sourcing Intern: PSCB Transcribe Date/Time: May 11 2023 4:15P Dictated by : DEMETRIA LEE MD This examination was interpreted and the report reviewed and electronically signed by: DEMETRIA LEE MD on May 11 2023 4:17PM [facility] DIVISION OF RADIOLOGY * * *Final Report* * * DATE OF EXAM: May 10 2023 3:49PM WOX 5291 - XR CHEST 2V FRONTAL/LAT / PROCEDURE REASON: multiple diagnoses * * * * Physician Interpretation * * * * EXAMINATION: CHEST RADIOGRAPH (2 VIEW FRONTAL & LATERAL) CLINICAL HISTORY: Closed fracture of multiple ribs of right side with routine healing Pleural effusion MQ: XC2_6 EXAM DATE/TIME: 05/10/2023 3:49 PM COMPARISON: 04/29/2023 RESULT: Lines, tubes, and devices: Mediastinal wires are in place. Lungs and pleura: Pleural fluid and thickening on the right is stable. No new significant collapse or consolidation. No pneumothorax Cardiomediastinal silhouette: Normal cardiomediastinal silhouette. Bones and soft tissues: Multiple right rib fractures are again noted. DIVISION OF RADIOLOGY Provider, [facility] - 05/11/2023 * * *Final Report* * * DATE OF EXAM: May 10 2023 3:49PM WOX 5291 - XR CHEST 2V FRONTAL/LAT / PROCEDURE REASON: multiple diagnoses * * * * Physician Interpretation * * * * EXAMINATION: CHEST RADIOGRAPH (2 VIEW FRONTAL & LATERAL) CLINICAL HISTORY: Closed fracture of multiple ribs of right side with routine healing Pleural effusion MQ: XC2_6 EXAM DATE/TIME: 05/10/2023 3:49 PM COMPARISON: 04/29/2023 RESULT: Lines, tubes, and devices: Mediastinal wires are in place. Lungs and pleura: Pleural fluid and thickening on the right is stable. No new significant collapse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 Normal 3.7-5.1 [facility] Comment on above: Order Comment: Nelli men Type: BLOOD SPECIMENOrdering Facility: [facility] Address: [address] [place] [address] Performed By: #### 2 4321-2 ####[facility] LABORATORYCLIA [id number] [place] [address] [place] Sodium [Moles/Vol] 135 mmol/L Low 136-144 [facility] Comment on above: Order Comment: Speci men Type: BLOOD SPECIMENOrdering Facility: [facility] Address: [address] [id number] Performed By: #### 2 4321-2 ####[facility] LABORATORYCLIA [id number] [place] [address] [place] Urea nitrogen [Mass/Vol] 18 mg/dL Normal 9-24 [facility] Comment on above: Order Comment: Speci men Type: BLOOD SPECIMENOrdering Facility: [facility] Address: [address] [place] [address] Performed By: #### 2 4321-2 ####[facility] LABORATORYCLIA [id number] [address] CBC panel Auto (Bld)on Erythrocyte distribution width (RBC) [Ratio] 14.2 % Normal 11.5-15.0 [facility] Comment on above: Order Comment: Speci men Type: BLOOD SPECIMENOrdering Facility: [facility] Address: [address] [place] [address] Performed By: #### 5 8410-2 ####[facility] LABORATORYCLIA [id number] [address] Hematocrit (Bld) [Volume fraction] 27.4 % Low 39.0-51.0 [facility] Comment on above: Order Comment: Speci men Type: BLOOD SPECIMENOrdering Facility: [facility] Address: [address] [place] [address] Performed By: #### 5 8410-2 ####[facility] LABORATORYCLIA [id number] [address] Hemoglobin (Bld) [Mass/Vol] 8.8 g/dL Low 13.0-17.0 [facility] Comment on above: Order Comment: Speci men Type: BLOOD SPECIMENOrdering Facility: [facility] Address: [address] [place] [address] Performed By: #### 5 8410-2 ####[facility] LABORATORYCLIA [id number] [address] STATES [facility] MCH (RBC) [Entitic mass] 29.6 pg Normal 26.0-34.0 [facility] Comment on above: Order Comment: Speci men Type: BLOOD SPECIMENOrdering Facility: [facility] Address: [address] [place] [address] Performed By: #### 5 8410-2 ####[facility] LABORATORYCLIA [id number] [address] [place] MCHC (RBC) [Mass/Vol] 32.1 g/dL Normal 30.5-36.0 [facility] Comment on above: Order Comment: Speci men Type: BLOOD SPECIMENOrdering Facility: [facility] Address: [address] [place] [address] Performed By: #### 5 8410-2 ####[facility] LABORATORYCLIA [id number] [address] MCV (RBC) [Entitic vol] 92.3 fL Normal 80.0-100.0 [facility] Comment on above: Order Comment: Speci men Type: BLOOD SPECIMENOrdering Facility: [facility] Address: [address] [place] [address] Performed By: #### 5 8410-2 ####[facility] LABORATORYCLIA [id number] [address] Nucleated RBC (Bld) [#/Vol] 10*3/uL Normal <0.01 [facility] Comment on above: Order Comment: Speci men Type: BLOOD SPECIMENOrdering Facility: [facility] Address: [address] [place] [address] Performed By: #### 5 8410-2 ####[facility] LABORATORYCLIA [id number] [address] Platelet mean volume (Bld) [Entitic vol] 9.2 fL Normal 9.0-12.7 [facility] Comment on above: Order Comment: Speci men Type: BLOOD SPECIMENOrdering Facility: [facility] Address: [address] [place] [address] Performed By: #### 5 8410-2 ####[facility] LABORATORYCLIA [id number] [address] Platelets (Bld) [#/Vol] 204 10*3/uL Normal 150-400 [facility] Comment on above: Order Comment: Speci men Type: BLOOD SPECIMENOrdering Facility: [facility] Address: [address] [place] [address] Performed By: #### 5 8410-2 ####[facility] LABORATORYCLIA [id number] [place], [place] [id number] [place] [address] [place] RBC (Bld) [#/Vol] 2.97 10*6/uL Low 4.20-6.00 [facility] Comment on above: Order Comment: Speci men Type: BLOOD SPECIMENOrdering Facility: [facility] Address: [address] [place] [address] Performed By: #### 5 8410-2 ####[facility] LABORATORYCLIA [id number] [place] [id number] [facility] WBC (Bld) [#/Vol] 7.77 10*3/uL Normal 3.70-11.00 [facility] Comment on above: Order Comment: Speci men Type: BLOOD SPECIMENOrdering Facility: [facility] Address: [address] [place] [address] Performed By: #### 5 8410-2 ####[facility] LABORATORYCLIA [id number] [place] [id number] [facility] CNDSon 04-08-2023 CNDS HNO ID: [id number] Author: RICHMOND NOVAK MD Service: General Surgery Author Type: Physician Type: Discharge Summary Filed: 04/09/2023 19:36 Note Text: DISCHARGE SUMMARY PATIENT NAME: Olga Lindsey Code Status: Full Code Highest Readmission Risk Score: 34 The 30 day readmissions risk score is derived from an internally validated risk model which evaluates patient level characteristics, utilization history, medication orders and lab results up until the day of discharge. Patients with a score of 40 or above are considered highest risk for readmission. Specific patient level drivers will be listed at the bottom of the summary. Admission Information Admission Information ADMIT DATE: 04/01/2023 DISCHARGE DATE: 04/08/2023 MY DOCTORS AND MEDICAL TEAM: My Main Hospital Doctor: Richmond Novak MD Primary Care Provider: Shira Brady MD My Medical Team Members: Treatment Team: Attending Provider: Richmond Novak MD Consulting: Vikas Johnston MD MY CONDITION AT DISCHARGE: Stable REASON I WAS IN THE HOSPITAL: Evaluation and treatment of injuries sustained following a fall SUMMARY OF WHAT HAPPENED WHILE I WAS IN THE HOSPITAL: Olga Lindsey is an 83-year old male who presented to [place] ED on 04/01/23 following a fall at home. Patient was pushing a wheelbarrow when it fell over causing him to fall onto a different piece of equipment, hitting his right side. Patient denied head strike or loss of consciousness. Imaging obtained and showed: 1. Acute displaced right lateral 6th, 8th, and 9th rib fractures 2. Right-sided hemothorax with right lower lobe pulmonary hemorrhage and possible contusion Given the above injuries, patient was transferred to [facility] for further trauma evaluation. A large bore CT was placed on the right and patient was admitted to SICU for respiratory monitoring. Patient's rib fractures were managed non-operatively, with multimodal pain control, and aggressive pulmonary hygiene. Daily CXR were obtained while CT was in place and showed improving appearance of right-sided loculated pleural fluid. His CT was placed to water seal on 04/05 and removed 04/07. Post CT removal CXR showed stable appearance of fluid collection without pneumothorax. Patient's hospitalization was complicated by delirium. Delirium protocol was initiated and patient's pain regimen was adjusted. His mentation improved with medication adjustments. His hospital stay was also complicated by afib with slow ventricular response with rates as low as the 30s. Cardiology was consulted and patient's home medications were adjusted, included the discontinuation of Metoprolol. With medication adjustments, his rate improved. PT/OT evaluated patient and recommended discharge to [facility]. On , patient was evaluated by trauma surgery and deemed medically stable to discharge to [facility]. He is to follow-up with cardiology in 2 weeks and trauma clinic in 1 week with repeat 2V CXR. OTHER PROBLEMS/DIAGNOSIS: Principal Problem: Hemothorax, traumatic, initial encounter Active Problems: Essential hypertension, benign Hyperlipidemia Tremor S/P CABG x 3 Trauma Closed fracture of multiple ribs of right side Atrial fibrillation with slow ventricular response (HCC) Acute blood loss anemia On anticoagulant therapy Slow ventricular response Longstanding persistent atrial fibrillation (HCC) Hypertensive urgency Hypophosphatemia Delirium Acute pain due to trauma Resolved Problems: * No resolved hospital problems. * OPERATIONS PERFORMED WHILE IN THE HOSPITAL: None IMPORTANT TEST/PROCEDURES: CT placement on 04/01/23 TEST RESULTS NOT AVAILABLE AT THIS TIME: No pending results Discharge Disposition Discharge Disposition: Acute Care Facility Activity When You Leave the Hospital Limited to: No heavy lifting (10-15 pounds) or strenuous exercise x 4 weeks May bathe and shower No prolonged bedrest, longer than 8 hours in a 24 hour period Diet Instructions Drink 6 to 8 glasses of fluids per day Resume your pre-hospital diet For Pain When You Leave the Hospital Apply a covered cold pack to the area If you become constipated, you may use any njrx-csv-uldgyof treatment such as Milk of Magnesia, Sennakot, Prune Juice, Suppositories, etc. in addition to the stool softener/fiber supplement Use acetaminophen (Tylenol) as recommended on the bottle Wound/Surgical Site Care Apply ice packs as needed Keep your dressing clean and dry Remove old dressing, shower, pat dry, and apply clean dressing Please use occlusive dressing (Vaseline gauze or xeroform) covered by 4 x 4 and Tegaderm Some bleeding from the wound/surgical site can be expected. If excessive, see a doctor at once Some bleeding from the wound/surgical site can be expected. If you soak a gauze bandage in one hour, see a doctor at once Wash your hands frequently, especially before touching yo (more content not included)... Normal [facility] XR CHEST 1V FRONTALon 2023 XR CHEST 1V FRONTAL * * *Final Report* * * DATE OF EXAM: Apr 08 2023 5:10AM [id number] [id number] - XR CHEST 1V FRONTAL / PROCEDURE REASON: Post-operative/post-p rocedure assessment * * * * Physician Interpretation * * * * EXAMINATION: CHEST RADIOGRAPH (SINGLE VIEW AP OR PA) CLINICAL HISTORY: Post-operative/post-p rocedure assessment, Evaluate tube, line, or lead position MQ: XC1_5 Comparison: 04/07/2023 at 1858 RESULT: Lines, tubes, and devices: Overlying cardiac catheterization technologist leads. Intact median sternotomy wires and sternal plate. Lungs and pleura: Persistent right-sided pleural effusion with loculated pleural fluid and/or pleural thickening laterally. Stable. Minimal diminished aeration left upper lung laterally. Probable atelectasis. No pneumothorax. Cardiomediastinal silhouette: Stable. Other: Right-sided rib fractures are again noted. IMPRESSION: Diminished lung volumes. Persistent right-sided pleural effusion. Vague density lateral aspect left upper lung. Probable atelectasis. Recommend attention to this area to ensure it resolves. Sourcing Intern: PSCB Transcribe Date/Time: Apr 08 2023 7:21A Dictated by : RANULFO MORTON MD This examination was interpreted and the report reviewed and electronically signed by: RANULFO MORTON MD on Apr 08 2023 7:24AM EST [id number] Normal [facility] ALLIED HEALTHon 04-07-2023 ALLIED HEALTH HNO ID: [id number] Author: OMER BALDERAS RT(R) Service: Radiology Author Type: Technologist Type: Allied Health Filed: 04/07/2023 05:42 Note Text: Radiology Service Progress Note PATIENT NAME: Olga Lindsey DATE OF SERVICE: April 07, 2023 TIME: 5:42 AM PATIENT IDENTITY VERIFICATION COMPLETED USING TWO (2) IDENTIFIERS: Name and Date of confirmed by patient verbally and Name and Date of confirmed by identification band. FALL SCREENING: Has the patient had 2 falls in the last year or 1 fall with injury or currently using an Ambulatory Assistive Device (Walker, Cane, Wheelchair, Crutches, etc.)? Inpatient: Screened on floor PATIENT GENDER DATA: Male PATIENT RELEVANT IMPLANT DATA REVIEWED: Not Applicable PATIENT PRESENTS WITH AN IMPLANTABLE OR ATTACHED EDUCATION ADMINISTRATIVE ASSISTANT: No RADIOLOGY DEPARTMENT: General X-ray: Exam(s) Completed: Chest X-Ray PERIPHERAL IV DATA: Not applicable SIGNED BY: RT Adeel(R) April 07, 2023 5:42 AM Normal [facility] Basic metabolic 2000 panelon 04-07-2023 Anion gap [Moles/Vol] 7 mmol/L Low 9-18 [facility] Comment on above: Order Comment: Speci men Type: BLOOD SPECIMENOrdering Facility: [facility] Address: [address] [place] [address] Performed By: #### 2 4321-2, 18729-4 ####[facility] LABORATORYCLIA [id number] [place] [address] [place] Calcium [Mass/Vol] 7.5 mg/dL Low 8.5-10.2 [facility] Comment on above: Order Comment: Speci men Type: BLOOD SPECIMENOrdering Facility: [facility] Address: [address] [place] [address] Performed By: #### 2 4321-2, ####[facility] LABORATORYCLIA [id number] [place] [address] [place] Chloride [Moles/Vol] 108 mmol/L High 97-105 [facility] Comment on above: Order Comment: Speci men Type: BLOOD SPECIMENOrdering Facility: [facility] Address: [address] [place] [address] Performed By: #### 2 2, ####[facility] LABORATORYCLIA [id number] [place] [id number] [place] CO2 [Moles/Vol] 23 mmol/L Normal 22-30 [facility] Comment on above: Order Comment: Speci men Type: BLOOD SPECIMENOrdering Facility: [facility] Address: [address] [place] [address] Performed By: #### 2 2, ####[facility] LABORATORYCLIA [id number] [place] [address] [place] Creatinine [Mass/Vol] 0.59 mg/dL Low 0.73-1.22 [facility] Comment on above: Order Comment: Speci men Type: BLOOD SPECIMENOrdering Facility: [facility] Address: [address] [place] [address] Performed By: #### 2 2, ####[facility] LABORATORYCLIA [id number] [place] [address] [facility] [place] Creatinine and Glomerular filtration rate.predicted panel (S/P/Bld) 97 mL/min/1.73m??? Normal >=60 [facility] Comment on above: Order Comment: Speci men Type: BLOOD SPECIMENOrdering Facility: [facility] Address: [address] [place] [address] Result Comment: Christiane mated Glomerular Filtration Rate (eGFR) is calculated using the 2020 CKD-EPI creatinine equation. This equation utilizes serum creatinine, sex, and age as parameters. The creatinine assay has traceable calibration to isotope dilution-mass spectrometry. Refer to KDIGO guidelines for clinical interpretation. In patients with unstable renal function, e.g. those with acute kidney injury, the eGFR may not accurately reflect actual GFR. Performed By: #### 2 43202-09, ####[facility] LABORATORYCLIA [id number] [place] [id number] [place] Glucose [Mass/Vol] 86 mg/dL Normal 74-99 [facility] Comment on above: Order Comment: Jaime howell Type: BLOOD SPECIMENOrdering Facility: [facility] Address: [address] [place] [address] Result Comment: The [place] Diabetes [employer] (ADA) provides guidance for cutoff values for fasting glucose and random glucose. The ADA defines fasting as no caloric intake for at least 8 hours. Fasting plasma glucose results between 100 to 125 mg/dL indicate increased risk for diabetes (prediabetes). Fasting plasma glucose results greater than or equal to 126 mg/dL meet the criteria for diagnosis of diabetes. In the absence of unequivocal hyperglycemia, results should be confirmed by repeat testing. In a patient with classic symptoms of hyperglycemia or hyperglycemic crisis, random plasma glucose results greater than or equal to 200 mg/dL meet the criteria for diagnosis of diabetes. Reference: Standards of Medical Care in Diabetes 2016, [place] [employer]. Diabetes Care. 2016.39(Suppl 1). Performed By: #### 2 4320-03, ####[facility] LABORATORYCLIA [id number] [place] [address] [place] Potassium [Moles/Vol] 3.4 mmol/L Low 3.7-5.1 [facility] Comment on above: Order Comment: Jaime howell Type: BLOOD SPECIMENOrdering Facility: [facility] Address: [address] [place] [address] Performed By: #### 2 43202-09, ####[facility] LABORATORYCLIA [id number] [place] [address] [place] Sodium [Moles/Vol] 138 mmol/L Normal 136-144 [facility] Comment on above: Order Comment: Speci men Type: BLOOD SPECIMENOrdering Facility: [facility] Address: [address] [place] [address] Performed By: #### 2 4321-2, 27464-7 ####[facility] LABORATORYCLIA [id number] [place] [address] [place] Urea nitrogen [Mass/Vol] 15 mg/dL Normal 9-24 [facility] Comment on above: Order Comment: Speci men Type: BLOOD SPECIMENOrdering Facility: [facility] Address: [address] [place] [address] Performed By: #### 2 4321-2, ####[facility] LABORATORYCLIA [id number] [address] STATES OF [facility] CBC panel Auto (Bld)on 04-07 Erythrocyte distribution width (RBC) [Ratio] 13.9 % Normal 11.5-15.0 [facility] Comment on above: Order Comment: Speci men Type: BLOOD SPECIMENOrdering Facility: [facility] Address: [address] [place] [address] Performed By: #### 5 8410-2 ####[facility] LABORATORYCLIA [id number] [address] [place] Hematocrit (Bld) [Volume fraction] 28.9 % Low 39.0-51.0 [facility] Comment on above: Order Comment: Speci men Type: BLOOD SPECIMENOrdering Facility: [facility] Address: [address] [place] [address] Performed By: #### 5 8410-2 ####[facility] LABORATORYCLIA [id number] [place] [id number] [place] Hemoglobin (Bld) [Mass/Vol] 9.4 g/dL Low 13.0-17.0 [facility] Comment on above: Order Comment: Speci men Type: BLOOD SPECIMENOrdering Facility: [facility] Address: [address] [place] [address] Performed By: #### 5 8410-2 ####[facility] LABORATORYCLIA [id number] [address] MCH (RBC) [Entitic mass] 29.7 pg Normal 26.0-34.0 [facility] Comment on above: Order Comment: Speci men Type: BLOOD SPECIMENOrdering Facility: [facility] Address: [address] [place] [address] Performed By: #### 5 8410-2 ####[facility] LABORATORYCLIA [id number] [address] MCHC (RBC) [Mass/Vol] 32.5 g/dL Normal 30.5-36.0 [facility] Comment on above: Order Comment: Speci men Type: BLOOD SPECIMENOrdering Facility: [facility] Address: [address] [place] [address] Performed By: #### 5 8410-2 ####[facility] LABORATORYCLIA [id number] [address] MCV (RBC) [Entitic vol] 91.5 fL Normal 80.0-100.0 [facility] Comment on above: Order Comment: Speci men Type: BLOOD SPECIMENOrdering Facility: [facility] Address: [address] [place] [address] Performed By: #### 5 8410-2 ####[facility] LABORATORYCLIA [id number] [address] Nucleated RBC (Bld) [#/Vol] 10*3/uL Normal <0.01 [facility] Comment on above: Order Comment: Speci men Type: BLOOD SPECIMENOrdering Facility: [facility] Address: [address] [place] [address] Performed By: #### 5 8410-2 ####[facility] LABORATORYCLIA [id number] [address] Platelet mean volume (Bld) [Entitic vol] 9.3 fL Normal 9.0-12.7 [facility] Comment on above: Order Comment: Speci men Type: BLOOD SPECIMENOrdering Facility: [facility] Address: [address] [place] [address] Performed By: #### 5 8410-2 ####[facility] LABORATORYCLIA [id number] [address] OF [place] Platelets (Bld) [#/Vol] 183 10*3/uL Normal 150-400 [facility] Comment on above: Order Comment: Speci men Type: BLOOD SPECIMENOrdering Facility: [facility] Address: [address] [place] [address] Performed By: #### 5 8410-2 ####[facility] LABORATORYCLIA [id number] [address] [place] RBC (Bld) [#/Vol] 3.16 10*6/uL Low 4.20-6.00 [facility] Comment on above: Order Comment: Speci men Type: BLOOD SPECIMENOrdering Facility: [facility] Address: [address] [place] [address] Performed By: #### 5 8410-2 ####[facility] LABORATORYCLIA [id number] [address] OF [facility] WBC (Bld) [#/Vol] 7.51 10*3/uL Normal 3.70-11.00 [facility] Comment on above: Order Comment: Speci men Type: BLOOD SPECIMENOrdering Facility: [facility] Address: [address] [place] [address] Performed By: #### 5 8410-2 ####[facility] LABORATORYCLIA [id number] [address] [place] Magnesium SerPl-mCncon 04-07 Magnesium [Mass/Vol] 1.5 mg/dL Low 1.7-2.3 [facility] Comment on above: Order Comment: Speci men Type: BLOOD SPECIMENOrdering Facility: [facility] Address: [address] [place] [address] Performed By: #### 2 4321-2, 21912-3 ####[facility] LABORATORYCLIA [id number] [place] [address] [place] [facility] XR CHEST 1V FRONTALon 2023 XR CHEST 1V FRONTAL * * *Final Report* * * DATE OF EXAM: Apr 07 2023 5:47AM AKX 5290 - XR CHEST 1V FRONTAL / PROCEDURE REASON: Post-operative/post-p rocedure assessment * * * * Physician Interpretation * * * * EXAMINATION: CHEST RADIOGRAPH (SINGLE VIEW AP OR PA) CLINICAL HISTORY: Post-operative/post-p rocedure assessment, Evaluate tube, line, or lead position MQ: XC1_5 Comparison: 04/06/2023 at 0504 RESULT: Lines, tubes, and devices: Right-sided chest tube in stable position. Overlying cardiac catheterization technologist leads. Overlying cardiac catheterization technologist leads. Lungs and pleura: Stable appearance of pleural thickening and pleural effusion at right base. Left lung is clear. Cardiomediastinal silhouette: Stable. Other: No significant additional findings. IMPRESSION: Stable appearance of the chest. Sourcing Intern: PSCB Transcribe Date/Time: Apr 07 2023 7:18A Dictated by : RANULFO MORTON MD This examination was interpreted and the report reviewed and electronically signed by: RANULFO MORTON MD on Apr 07 2023 7:19AM EST [id number] N Normal [facility] XR CHEST 2V FRONTAL/LATon XR CHEST 2V FRONTAL/LAT * * *Final Repor t* * * DATE OF EXAM: Apr 07 2023 7:00PM AKX 5291 - XR CHEST 2V FRONTAL/LAT / PROCEDURE REASON: Other * * * * Physician Interpretation * * * * EXAMINATION: CHEST RADIOGRAPH (2 VIEW FRONTAL and LATERAL) CLINICAL HISTORY: Other, Post CT removal MQ: XC2_6 EXAM DATE/TIME: 04/07/2023 7:00 PM COMPARISON: Radiograph 04/07/2023 at 0517 hours RESULT: Lines, tubes, and devices: Right-sided thoracostomy tube has been removed. No evidence of pneumothorax. Loculated pleural fluid again noted along the right chest wall. There is mild right basilar atelectasis or pneumonia. Left lung appears clear. Lungs and pleura: No consolidation. No lung mass. No pleural effusion. No pneumothorax. Cardiomediastinal silhouette: Normal cardiomediastinal silhouette. Bones and soft tissues: Unremarkable. IMPRESSION: 1. Status post right chest tube removal without evidence of pneumothorax. 2. Right-sided loculated pleural fluid and mild adjacent atelectasis and/or pneumonia, similar compared to prior. Sourcing Intern: ELIZA Transcribe Date/Time: Apr 07 2023 7:13P Dictated by : EBENEZER HECK MD This examination was interpreted and the report reviewed and electronically signed by: EBENEZER HECK MD on Apr 07 2023 7:15PM EST [id number] N Normal [facility] 25(OH)D3 SerPl-mCncon 2023 25-hydroxyvitamin D3 [Mass/Vol] ng/mL Low >=30.0 [facility] Comment on above: Order Comment: Speci men Type: BLOOD SPECIMENOrdering Facility: [facility] Address: [address] [place] [address] Result Comment: Clas sification of 25 [place] Vitamin D status: Deficiency: <= 20.0 ng/ml. Insufficiency: 21.0-29.0 ng/ml. Sufficiency: >= 30.0 ng/ml. Performed By: #### 1 989-3 ####[facility] LABORATORYCLIA [id number] [place] [address] [place] Basic metabolic 2000 panelon 04-06-2023 Anion gap [Moles/Vol] 8 mmol/L Low 9-18 [facility] Comment on above: Order Comment: Speci men Type: BLOOD SPECIMENOrdering Facility: [facility] Address: [address] [place] [address] Performed By: #### 2 4321-2 ####[facility] LABORATORYCLIA [id number] [place] [address] [place] Calcium [Mass/Vol] 7.9 mg/dL Low 8.5-10.2 [facility] Comment on above: Order Comment: Speci [facility] Type: BLOOD SPECIMENOrdering Facility: [facility] Address: [address] [place] [address] Performed By: #### 2 4321-2 ####[facility] LABORATORYCLIA [id number] [address] [place] Chloride [Moles/Vol] 106 mmol/L High 97-105 [facility] Comment on above: Order Comment: Speci men Type: BLOOD SPECIMENOrdering Facility: [facility] Address: [address] [place] [address] Performed By: #### 2 4321-2 ####[facility] LABORATORYCLIA [id number] [address] OF [facility] CO2 [Moles/Vol] 25 mmol/L Normal 22-30 [facility] Comment on above: Order Comment: Speci men Type: BLOOD SPECIMENOrdering Facility: [facility] Address: [address] [place] [address] Performed By: #### 2 4321-2 ####[facility] LABORATORYCLIA [id number] [address] Creatinine [Mass/Vol] 0.81 mg/dL Normal 0.73-1.22 [facility] Comment on above: Order Comment: Speci men Type: BLOOD SPECIMENOrdering Facility: [facility] Address: [address] [place] [address] Performed By: #### 2 4321-2 ####[facility] LABORATORYCLIA [id number] [address] Creatinine and Glomerular filtration rate.predicted panel (S/P/Bld) 88 mL/min/1.73m??? Normal >=60 [facility] Comment on above: Order Comment: Speci men Type: BLOOD SPECIMENOrdering Facility: [facility] Address: [address] [place] [address] Result Comment: Christiane mated Glomerular Filtration Rate (eGFR) is calculated using the 2020 CKD-EPI creatinine equation. This equation utilizes serum creatinine, sex, and age as parameters. The creatinine assay has traceable calibration to isotope dilution-mass spectrometry. Refer to KDIGO guidelines for clinical interpretation. In patients with unstable renal function, e.g. those with acute kidney injury, the eGFR may not accurately reflect actual GFR. Performed By: #### 2 4321-2 ####[facility] LABORATORYCLIA [id number] [place] [address] [place] Glucose [Mass/Vol] 97 mg/dL Normal 74-99 [facility] Comment on above: Order Comment: Speci men Type: BLOOD SPECIMENOrdering Facility: [facility] Address: [address] [place] [address] Result Comment: The [place] Diabetes [employer] (ADA) provides guidance for cutoff values for fasting glucose and random glucose. The ADA defines fasting as no caloric intake for at least 8 hours. Fasting plasma glucose results between 100 to 125 mg/dL indicate increased risk for diabetes (prediabetes). Fasting plasma glucose results greater than or equal to 126 mg/dL meet the criteria for diagnosis of diabetes. In the absence of unequivocal hyperglycemia, results should be confirmed by repeat testing. In a patient with classic symptoms of hyperglycemia or hyperglycemic crisis, random plasma glucose results greater than or equal to 200 mg/dL meet the criteria for diagnosis of diabetes. Reference: Standards of Medical Care in Diabetes 2016, [place] [employer]. Diabetes Care. 2016.39(Suppl 1). Performed By: #### 2 4321-2 ####[facility] LABORATORYCLIA [id number] [place] [address] [place] Potassium [Moles/Vol] 3.5 mmol/L Low 3.7-5.1 [facility] Comment on above: Order Comment: Jaime men Type: BLOOD SPECIMENOrdering Facility: [facility] Address: [address] [place] [address] Performed By: #### 2 4321-2 ####[facility] LABORATORYCLIA [id number] [place] [id number] [place] Sodium [Moles/Vol] 139 mmol/L Normal 136-144 [facility] Comment on above: Order Comment: Nelli men Type: BLOOD SPECIMENOrdering Facility: [facility] Address: [address] [place] [address] Performed By: #### 2 4321-2 ####[facility] LABORATORYCLIA [id number] [place] [address] Urea nitrogen [Mass/Vol] 20 mg/dL Normal 9-24 [facility] Comment on above: Order Comment: Speci men Type: BLOOD SPECIMENOrdering Facility: [facility] Address: [address] [place] [address] Performed By: #### 2 4321-2 ####[facility] LABORATORYCLIA [id number] [address] STATES OF [facility] CBC panel Auto (Bld)on 04-06 Erythrocyte distribution width (RBC) [Ratio] 14.3 % Normal 11.5-15.0 [facility] Comment on above: Order Comment: Speci men Type: BLOOD SPECIMENOrdering Facility: [facility] Address: [address] [place] [address] Performed By: #### 5 8410-2 ####[facility] LABORATORYCLIA [id number] [address] Hematocrit (Bld) [Volume fraction] 26.8 % Low 39.0-51.0 [facility] Comment on above: Order Comment: Speci men Type: BLOOD SPECIMENOrdering Facility: [facility] Address: [address] [place] [address] Performed By: #### 5 8410-2 ####[facility] LABORATORYCLIA [id number] [address] STATES OF [facility] Hemoglobin (Bld) [Mass/Vol] 8.8 g/dL Low 13.0-17.0 [facility] Comment on above: Order Comment: Speci men Type: BLOOD SPECIMENOrdering Facility: [facility] Address: [address] [place] [address] Performed By: #### 5 8410-2 ####[facility] LABORATORYCLIA [id number] [address] STATES [facility] MCH (RBC) [Entitic mass] 30.0 pg Normal 26.0-34.0 [facility] Comment on above: Order Comment: Speci men Type: BLOOD SPECIMENOrdering Facility: [facility] Address: [address] [place], [place] [address] Performed By: #### 5 8410-2 ####[facility] LABORATORYCLIA [id number] [address] STATES OF [facility] MCHC (RBC) [Mass/Vol] 32.8 g/dL Normal 30.5-36.0 [facility] Comment on above: Order Comment: Speci men Type: BLOOD SPECIMENOrdering Facility: [facility] Address: [address] [place] [address] Performed By: #### 5 8410-2 ####[facility] LABORATORYCLIA [id number] [address] [place] MCV (RBC) [Entitic vol] 91.5 fL Normal 80.0-100.0 [facility] Comment on above: Order Comment: Speci men Type: BLOOD SPECIMENOrdering Facility: [facility] Address: [address] [place] [address] Performed By: #### 5 8410-2 ####[facility] LABORATORYCLIA [id number] [address] STATES OF [facility] Nucleated RBC (Bld) [#/Vol] 10*3/uL Normal <0.01 [facility] Comment on above: Order Comment: Speci men Type: BLOOD SPECIMENOrdering Facility: [facility] Address: [address] [place] [address] Performed By: #### 5 8410-2 ####[facility] LABORATORYCLIA [id number] [address] [place] Platelet mean volume (Bld) [Entitic vol] 9.5 fL Normal 9.0-12.7 [facility] Comment on above: Order Comment: Speci men Type: BLOOD SPECIMENOrdering Facility: [facility] Address: [address] [place] [address] Performed By: #### 5 8410-2 ####[facility] LABORATORYCLIA [id number] [address] [place] Platelets (Bld) [#/Vol] 165 10*3/uL Normal 150-400 [facility] Comment on above: Order Comment: Speci men Type: BLOOD SPECIMENOrdering Facility: [facility] Address: [address] [place] [address] Performed By: #### 5 8410-2 ####[facility] LABORATORYCLIA [id number] [address] OF [facility] RBC (Bld) [#/Vol] 2.93 10*6/uL Low 4.20-6.00 [facility] Comment on above: Order Comment: Speci men Type: BLOOD SPECIMENOrdering Facility: [facility] Address: [address] [place] [address] Performed By: #### 5 8410-2 ####[facility] LABORATORYCLIA [id number] [address] WBC (Bld) [#/Vol] 8.09 10*3/uL Normal 3.70-11.00 [facility] Comment on above: Order Comment: Speci men Type: BLOOD SPECIMENOrdering Facility: [facility] Address: [address] [place] [address] Performed By: #### 5 8410-2 ####[facility] LABORATORYCLIA [id number] [address] NURSING PROGon 04-06-2023 NURSING PROG HNO ID: [id number] Author: MARY ANNE PERAZA RN Service: ? Author Type: Registered Nurse Type: Nursing Progress Note Filed: 04/06/2023 16:23 Note Text: Other: RN discontinued sitter at 1500. Pt. has not shown any signs of confusion since this morning and has not tried to pull any medical equipment. Bed alarm is on and functioning. Normal [facility] XR CHEST 1V FRONTALon 2023 XR CHEST 1V FRONTAL * * *Final Report* * * DATE OF EXAM: Apr 06 2023 5:10AM AKX 5290 - XR CHEST 1V FRONTAL / PROCEDURE REASON: Post-operative/post-p rocedure assessment * * * * Physician Interpretation * * * * EXAMINATION: CHEST RADIOGRAPH (SINGLE VIEW AP OR PA) CLINICAL HISTORY: Post-operative/post-p rocedure assessment, Evaluate tube, line, or lead position MQ: XC1_5 Comparison: 04/05/2023 at 04 53 RESULT: Lines, tubes, and devices: Right-sided chest tube in stable position. Overlying cardiac catheterization technologist leads. Intact median sternotomy wires and sternal plate. Lungs and pleura: No pneumothorax. Improving right-sided loculated pleural effusion. Remainder right and left lung is clear. Cardiomediastinal silhouette: Stable. Other: Right-sided rib fractures are not as clearly identified on this exam. No significant additional findings. IMPRESSION: Right-sided pleural opacity most likely representing loculated fluid is improving. Otherwise stable findings. Sourcing Intern: PSCB Transcribe Date/Time: Apr 06 2023 7:03A Dictated by : RANULFO MORTON MD This examination was interpreted and the report reviewed and electronically signed by: RANULFO MORTON MD on Apr 06 2023 7:05AM EST [id number] N Normal [facility] Basic metabolic 2000 panelon 04-05-2023 Anion gap [Moles/Vol] 7 mmol/L Low 9-18 [facility] Comment on above: Order Comment: Speci men Type: BLOOD SPECIMENOrdering Facility: [facility] Address: [address] [place] [address] Performed By: #### 2 777-1, 84431-5, 13243-4 ####[facility] LABORATORYCLIA [id number] [place] [address] [place] Calcium [Mass/Vol] 9.0 mg/dL Normal 8.5-10.2 [facility] Comment on above: Order Comment: Speci men Type: BLOOD SPECIMENOrdering Facility: [facility] Address: [address] [place] [address] Performed By: #### 2 777-1, , ####[facility] LABORATORYCLIA [id number] [place] [address] [place] Chloride [Moles/Vol] 104 mmol/L Normal 97-105 [facility] Comment on above: Order Comment: Speci men Type: BLOOD SPECIMENOrdering Facility: [facility] Address: [address] [place] [address] Performed By: #### 2 777-1, , ####[facility]NACLIA [id number] [place] [id number] [place] OF [facility] CO2 [Moles/Vol] 26 mmol/L Normal 22-30 [facility] Comment on above: Order Comment: Speci men Type: BLOOD SPECIMENOrdering Facility: [facility] Address: [address] [place] [address] Performed By: #### 2 777-1, , ####[facility]IA [id number] [address] [place] Creatinine [Mass/Vol] 0.71 mg/dL Low 0.73-1.22 [facility] Comment on above: Order Comment: Speci men Type: BLOOD SPECIMENOrdering Facility: [facility] Address: [address] [place] [address] Performed By: #### 2 777-1, , ####[facility]ITALIA [id number] [address] Creatinine and Glomerular filtration rate.predicted panel (S/P/Bld) 92 mL/min/1.73m??? Normal >=60 [facility] Comment on above: Order Comment: Speci men Type: BLOOD SPECIMENOrdering Facility: [facility] Address: [address] [place] [address] Result Comment: Christiane mated Glomerular Filtration Rate (eGFR) is calculated using the 2020 CKD-EPI creatinine equation. This equation utilizes serum creatinine, sex, and age as parameters. The creatinine assay has traceable calibration to isotope dilution-mass spectrometry. Refer to KDIGO guidelines for clinical interpretation. In patients with unstable renal function, e.g. those with acute kidney injury, the eGFR may not accurately reflect actual GFR. Performed By: #### 2 777-1, , 73231-2 ####[facility] LABORATORYCLIA [id number] [place] [address] [place] Glucose [Mass/Vol] 107 mg/dL High 74-99 [facility] Comment on above: Order Comment: Speci men Type: BLOOD SPECIMENOrdering Facility: [facility] Address: [address] [place] [address] Result Comment: The [place] Diabetes [employer] (ADA) provides guidance for cutoff values for fasting glucose and random glucose. The ADA defines fasting as no caloric intake for at least 8 hours. Fasting plasma glucose results between 100 to 125 mg/dL indicate increased risk for diabetes (prediabetes). Fasting plasma glucose results greater than or equal to 126 mg/dL meet the criteria for diagnosis of diabetes. In the absence of unequivocal hyperglycemia, results should be confirmed by repeat testing. In a patient with classic symptoms of hyperglycemia or hyperglycemic crisis, random plasma glucose results greater than or equal to 200 mg/dL meet the criteria for diagnosis of diabetes. Reference: Standards of Medical Care in Diabetes 2016, [place] [employer]. Diabetes Care. 2016.39(Suppl 1). Performed By: #### 2 777-1, , ####[facility] LABORATORYCLIA [id number] [place] [address] [place] Potassium [Moles/Vol] 4.1 mmol/L Normal 3.7-5.1 [facility] Comment on above: Order Comment: Speci men Type: BLOOD SPECIMENOrdering Facility: [facility] Address: [address] [place] [address] Performed By: #### 2 777-1, , 28584-0 ####[facility] LABORATORYCLIA [id number] [place] [id number] [place] Sodium [Moles/Vol] 137 mmol/L Normal 136-144 [facility] Comment on above: Order Comment: Speci men Type: BLOOD SPECIMENOrdering Facility: [facility] Address: [address] [place] [address] Performed By: #### 2 777-1, , 80533-7 ####[facility] LABORATORYCLIA [id number] [place] [address] [place] Urea nitrogen [Mass/Vol] 21 mg/dL Normal 9-24 [facility] Comment on above: Order Comment: Speci men Type: BLOOD SPECIMENOrdering Facility: [facility] Address: [address] [place] [address] Performed By: #### 2 777-1, 92372-0, 11662-4 ####[facility] LABORATORYCLIA [id number] [address] STATES OF [facility] CBC panel Auto (Bld)on 04-05 Erythrocyte distribution width (RBC) [Ratio] 14.6 % Normal 11.5-15.0 [facility] Comment on above: Order Comment: Speci men Type: BLOOD SPECIMENOrdering Facility: [facility] Address: [address] [place] [address] Performed By: #### 5 8410-2 ####[facility] LABORATORYCLIA [id number] [address] STATES OF [facility] Hematocrit (Bld) [Volume fraction] 27.0 % Low 39.0-51.0 [facility] Comment on above: Order Comment: Speci men Type: BLOOD SPECIMENOrdering Facility: [facility] Address: [address] [place] [address] Performed By: #### 5 8410-2 ####[facility] LABORATORYCLIA [id number] [address] [place] Hemoglobin (Bld) [Mass/Vol] 8.9 g/dL Low 13.0-17.0 [facility] Comment on above: Order Comment: Speci men Type: BLOOD SPECIMENOrdering Facility: [facility] Address: [address] [place] [address] Performed By: #### 5 8410-2 ####[facility] LABORATORYCLIA [id number] [address] [place] MCH (RBC) [Entitic mass] 30.1 pg Normal 26.0-34.0 [facility] Comment on above: Order Comment: Speci men Type: BLOOD SPECIMENOrdering Facility: [facility] Address: [address] [place] [address] Performed By: #### 5 8410-2 ####[facility] LABORATORYCLIA [id number] [address] MCHC (RBC) [Mass/Vol] 33.0 g/dL Normal 30.5-36.0 [facility] Comment on above: Order Comment: Speci men Type: BLOOD SPECIMENOrdering Facility: [facility] Address: [address] [place] [address] Performed By: #### 5 8410-2 ####[facility] LABORATORYCLIA [id number] [address] MCV (RBC) [Entitic vol] 91.2 fL Normal 80.0-100.0 [facility] Comment on above: Order Comment: Speci men Type: BLOOD SPECIMENOrdering Facility: [facility] Address: [address] [place] [address] Performed By: #### 5 8410-2 ####[facility] LABORATORYCLIA [id number] [address] Nucleated RBC (Bld) [#/Vol] 10*3/uL Normal <0.01 [facility] Comment on above: Order Comment: Speci men Type: BLOOD SPECIMENOrdering Facility: [facility] Address: [address] [place] [address] Performed By: #### 5 8410-2 ####[facility] LABORATORYCLIA [id number] [address] Platelet mean volume (Bld) [Entitic vol] 9.7 fL Normal 9.0-12.7 [facility] Comment on above: Order Comment: Speci men Type: BLOOD SPECIMENOrdering Facility: [facility] Address: [address] [place] [address] Performed By: #### 5 8410-2 ####[facility] LABORATORYCLIA [id number] [address] [place] Platelets (Bld) [#/Vol] 170 10*3/uL Normal 150-400 [facility] Comment on above: Order Comment: Speci men Type: BLOOD SPECIMENOrdering Facility: [facility] Address: [address] [place] [address] Performed By: #### 5 8410-2 ####[facility] LABORATORYCLIA [id number] [address] OF [facility] RBC (Bld) [#/Vol] 2.96 10*6/uL Low 4.20-6.00 [facility] Comment on above: Order Comment: Speci men Type: BLOOD SPECIMENOrdering Facility: [facility] Address: [address] [place] [address] Performed By: #### 5 8410-2 ####[facility] LABORATORYCLIA [id number] [address] WBC (Bld) [#/Vol] 8.28 10*3/uL Normal 3.70-11.00 [facility] Comment on above: Order Comment: Speci men Type: BLOOD SPECIMENOrdering Facility: [facility] Address: [address] [place] [address] Performed By: #### 5 8410-2 ####[facility] LABORATORYCLIA [id number] [address] CNCOon 04-05-2023 CNCO Letter Text Normal [facility] CONSULT PROGon 04-05-2023 CONSULT PROG HNO ID: [id number] Author: SERAFIN STYLES APRN.[employer] Service: Clinical Cardiology Author Type: Nurse Practitioner Type: Consult Progress Note Filed: 04/05/2023 13:21 Note Text: Plan of care note: Chart reviewed patient: Reviewing patient telemetry. Patient rate controlled A-fib 70-90 on telemetry. Continue Cardizem CD 240 mg and Eliquis 5 mg, continue holding metoprolol at this time. Cardiology will sign off at this time. We will follow patient outpatient. Please reach out if you have any further questions. Thank you. Serafin Styles APRN.[employer] Normal [facility] Calcium.ionized [Moles/Vol]o n 04-05-2023 Calcium.ionized (BldV) [Mass/Vol] 1.22 mmol/L Normal 1.08-1.30 [facility] Comment on above: Order Comment: Jaime howell Type: BLOOD SPECIMENOrdering Facility: [facility] Address: [address] [place] [address] Performed By: #### 1 995-0 ####[facility] LABORATORYCLIA [id number] [address] OF [facility] Calcium.ionized adjusted to pH 7.4 (Bld) [Moles/Vol] 1.25 mmol/L Normal 1.08-1.30 [facility] Comment on above: Order Comment: Jaime howell Type: BLOOD SPECIMENOrdering Facility: [facility] Address: [address] [place] [address] Performed By: #### 1 995-0 ####[facility] LABORATORYCLIA [id number] [address] [place] Magnesium SerPl-mCncon 04-05 Magnesium [Mass/Vol] 1.9 mg/dL Normal 1.7-2.3 [facility] Comment on above: Order Comment: Jaime howell Type: BLOOD SPECIMENOrdering Facility: [facility] Address: [address] [place] [address] Performed By: #### 2 777-1, 94137-2, 89637-5 ####[facility] LABORATORYCLIA [id number] [place] [address] [place] NURSING PROGon 04-05-2023 NURSING PROG HNO ID: [id number] Author: MARY ANNE PERAZA RN Service: ? Author Type: Registered Nurse Type: Nursing Progress Note Filed: 04/05/2023 13:04 Note Text: Other: Pt. Bradycardic on telemetry with lowest heart rate reading 38. He is a-fib and consistently running a HR of 50-60 with occasional dips into the high 30's low 40's. Dr. Garza with cardiology notified. Metoprolol discontinued, no other orders at this time. Will continue to monitor. Normal [facility] NURSING PROG HNO ID: [id number] Author: KRISTAN QUINONEZ, RN Service: Nursing Author Type: Registered Nurse Type: Nursing Progress Note Filed: 04/05/2023 06:40 Note Text: Summary: restlessness Frequently setting off bed alarm. Stated, I need to get out of this bed to go downstairs. Pulled off tele leads and o2 probe several times. Redirected and reoriented. Fall precautions in place. Normal [facility] NURSING PROG HNO ID: [id number] Author: NELDA SOSA RN Service: Nursing Author Type: Registered Nurse Type: Nursing Progress Note Filed: 04/05/2023 03:46 Note Text: Transfer Note: PATIENT NAME: Olga Lindsey Patient Location: [place] [address] [address] 07-10 Room: [place] [address] Patient transferred into room/unit [facility] in stable condition. Actions taken: Report given/called to Kristan RN No futher actions taken at this time. Will continue to monitor and check with patient. Patient belongings with patient Normal [facility] Phosphate SerPl-mCncon 04-05 Phosphate [Mass/Vol] 2.5 mg/dL Low 2.7-4.8 [facility] Comment on above: Order Comment: Speci men Type: BLOOD SPECIMENOrdering Facility: [facility] Address: [address] [place] [address] Performed By: #### 2 777-1, 19400-6, 01009-3 ####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, 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 tolerate 3 hours of therapies daily Recommended Discharge Disposition Due to: Patient requires daily, facility-based rehabilitation from at least one discipline due to:, decline in functional status requiring daily skilled care ASSESSMENT Response to Therapy Interventions: Good Participation in Activities, Low Activity Tolerance, Pain PRECAUTIONS Fall Risk, Bed/Chair Alarm, Lines/Tubes/Drains R rib fractures; chest tube CURRENT HOSPITAL COURSE Fall while pushing wheelbarrow; fell onto another piece of farm equipment; right lateral ribs 7-9 fracture and hemothorax; +chest tube Relevant Past Medical History: HTN, tremor, trigeminal neuralgia HOME LIVING Patient Lives With: Spouse Assistance Available: None, Other: See Comment Comments: is w/c bound Entry To Home: Ramp Number Of Stairs To Bed/Bath: 0 Tub/Shower Type: shower chair but does not use normally Equipment Owned: Walker- Wheeled, Cane, Shower Chair PRIOR FUNCTIONAL 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 SUBJECTIVE Pleasant and agreeable to PT. THERAPY DIAGNOSIS Reduced mobility-other, Muscle Weakness (generalized), Unsteadiness on feet, Abnormalities of gait and mobility-other, General symptoms and signs-other, Difficulty walking-musculoskelet al TREATMENT INTERVENTIONS Evaluation, Gait Training (39763) Timed Code Treatment (minutes): 10 Skilled Treatment Time (minutes): 30 $ Evaluation-Moderate (90482) Billed Units: 1 unit Gait Training (02969) Treatment Minutes: 10 $ Gait Training (23154) Billed Units: 1 unit See grid as well as balance and activity tolerance section(s) for functional mobility facilitated and education provided. Education regarding importance of continued and progressive mobility with staff assist to prevent hospital acquired weakness. Education on fall prevention. Up with assist only. Oriented to call light. TRAINING AND EDUCATION PROVIDED Anatomy and Impact on Deficits, Assistive Device Use, Bed Mobility, Benefits of In-Hospital Mobility, Equipment, Gait Pattern, Reduction of Deviations, Role of Physical Therapy, Sitting Balance, Standing Balance, Transfers THERAPEUTIC SKILLS USED Activity Dosing, Cues for Sequencing/Proper Technique for Activity, Cuing Verbal, Movement Facilitation, Muscle Activation Facilitation, Physical Assist, Postural Alignment Correction FUNCTIONAL STATUS Bed Mobility Supine To Sit: Moderate Assistance, Additional Information instructed technique, assist to guide BLE to EOB and elevate trunk Scooting: Minimal Assistance, Additional Information assist for positioning at EOB Transfers Sit To Stand: Minimal Assistance, Additional Information cues for hand placement at walker, assist to lift Stand To Sit: Minimal Assistance, Additional Information cues for positioning at surface, reach hands back and sit slowly Bed to Chair Gait Minimal Assistance, Additional Information cues for upright posture and positioning in walker, assist balance throughout, cues for walker management and safety Gait Device: Wheeled Walker General Deviations/Observatio ns: Digna decreased, Difficulty changing direction/turning, Flexed trunk posture, Narrow Base of Support, Non-functional gait speed, Step length decreased, Shuffling Gait Gait Distance (feet): 10ft Stairs ROM Right Lower Extremity ROM Comments: WFL Left Lower Extremity ROM Comments: WFL STRENGTH Right Lower Extremity Strength Comments: 4/5 Left Lower Extremity Strength Comments: 4/5 BALANCE Static Sitting Balance: Good Dynamic Sitting Balance: Fair Static Standing Balance: Fair Dynamic Standing Balance: Poor ACTIVITY TOLERANCE Standing Activity: ambulation at walker Standing Activity Tolerance (in minutes): 3 GOALS Able to Perform HEP with: Verbal Cues Only (BLE general strengthening) Transfer Supine to/from Sit with: Stand By Assistance Transfer Sit to/from Stand with: Independent Ambulate with: Independent Distance: 50ft intervals Device: Wheeled Walker Rehab Potential: Good PLAN PT Frequency: 4 Times Per Week (2-4) Treatment Interventions: Education, Strengthening, Functional Mobility Training, Balance Training, Pain Management SIGNATURE: Vaibhav Porras PT PATIENT NAME: Olga Lindsey DATE: April 05, 2023 TIME: 12:08 PM Normal [facility] THERAPY NT HNO ID: [id number] Author: KYLE VELÁZQUEZ OTR/L Service: Occupational Therapy Author Type: Occupational Therapist Type: Therapy (PT/OT/Speech/Resp) Filed: 04/05/2023 11:13 Note Text: Occupational Therapy Evaluation Summary SERVICE DATE: 04/05/2023 SERVICE TIME: 1011 to 1027 ROOM: [id number] OT 6 Clicks Score: 16 DISCHARGE RECOMMENDATIONS Acute Rehab Recommended Discharge Disposition Comments: Pt s/p fall with rib fractures; 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 Recommended Discharge Disposition Due to: Patient requires an active, intensive rehabilitation therapy program due to:, ADL impairment resulting in caregiver dependence, decline in functional status requiring daily skilled care ASSESSMENT Response to Therapy Interventions: Good Participation in Activities, Pain, Needs Frequent Redirection or Reinstruction PRECAUTIONS Fall Risk, Bed/Chair Alarm, Lines/Tubes/Drains R rib fractures; chest tube CURRENT HOSPITAL COURSE Fall while pushing wheelbarrow; fell onto another piece of farm equipment; right lateral ribs 7-9 fracture and hemothorax; +chest tube Relevant Past Medical History: HTN, tremor, trigeminal neuralgia HOME LIVING Patient Lives With: Spouse Assistance Available: None, Other: See Comment Comments: is w/c bound Entry To Home: Ramp Number Of Stairs To Bed/Bath: 0 Tub/Shower Type: shower chair but does not use normally Equipment Owned: Walker- Wheeled, Cane, Shower Chair PRIOR FUNCTIONAL 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 Baseline Cognition: Oriented to self, Oriented to place, Oriented to time, Oriented to situation SUBJECTIVE agreeable to session; reports pain is an 8 or 9/10 during transfers COGNITION Responsiveness: Alert Follows Commands: 1-step Commands, Cueing Needed Cueing to Follow Commands: Minimum 4AT Score: 2 (04/05/23) Delirium Positive/Negative: Negative (04/05/23) THERAPY DIAGNOSIS Reduced mobility-other, Decreased activities of daily living (ADL) TREATMENT INTERVENTIONS Evaluation Skilled Treatment Time (minutes): 16 $ Evaluation - Moderate (81072) Billed Units: 1 unit TRAINING AND EDUCATION PROVIDED Activity Adaptation/Compensato ry Strategies, Assistive Device Use, Benefits of In-Hospital Mobility, Functional Mobility Involving ADLs, Lower Extremity Dressing, Orientation, Precautions/Restricti ons, Role of Occupational Therapy, Sitting Balance to Improve [place] with ADLs/Self-Care, Transfer - Sit to Stand THERAPEUTIC SKILLS USED Activity Dosing, Assessment of Tolerance Including Vitals Response to Activity, Cues for Sequencing/Proper Technique for Activity, Cuing Verbal, Physical Assist FUNCTIONAL STATUS Activities of Daily Living Assist Level Additional Information Feeding Independent Grooming Set Up Bathing Upper Body Moderate Assistance Bathing Lower Body Maximal Assistance Dressing Upper Body Minimal Assistance Dressing Lower Body Maximal Assistance Toileting Maximal Assistance Mobility Assist Level Additional Information Bed Mobility Sit to Stand Minimal Assistance Stand to Sit Minimal Assistance Bed to Chair Toilet/Commode Shower Functional Mobility ROM STRENGTH Strength Limitation Comments: B UEs 4/5 ACTIVITY TOLERANCE Sitting Activity: ADLs in chair Sitting Activity Tolerance (in minutes): 4 Standing Activity: static standing from chair Standing Activity Tolerance (in minutes): 1 BALANCE Dynamic Sitting Balance: Fair Static Standing Balance: Fair GOALS Grooming with: Independent Upper Body Bathing with: Set Up Upper Body Dressing with: Set Up Lower Body Bathing with: Moderate Assistance Lower Body Dressing with: Moderate Assistance Toilet Hygiene with: Moderate Assistance Chair Transfer with: Contact Guard Assistance Toilet Transfer with: Contact Guard Assistance Tolerate (minutes of functional activity): 25 Functional Activity with: Contact Guard Assistance Demonstrate Competence with Education with: Independent Rehab Potential: Good PLAN OT Frequency: 1 Time Per Week Treatment Interventions: Education, Self Care/Home Management, Functional Mobility Training SIGNATURE: JOSE CARLOS De La Torre/Viktoriya PATIENT NAME: Olga Lindsey DATE: April 05, 2023 TIME: 11:12 AM Normal [facility] XR CHEST 1V FRONTALon 2023 XR CHEST 1V FRONTAL * * *Final Report* * * DATE OF EXAM: Apr 05 2023 6:03AM AKX 5290 - XR CHEST 1V FRONTAL / PROCEDURE REASON: Post-operative/post-p rocedure assessment * * * * Physician Interpretation * * * * EXAMINATION: CHEST RADIOGRAPH (SINGLE VIEW AP OR PA) CLINICAL HISTORY: Post-operative/post-p rocedure assessment, Evaluate tube, line, or lead position MQ: XC1_5 Comparison: Previous studies with the most recent performed one day ago RESULT: Lines, tubes, and devices: Right-sided thoracostomy tube remains in unaltered position. Cardiac monitoring leads. Lungs and pleura: There is a peripheral, pleural-based rounded opacity at the lateral right inferior chest. This appears to be slowly enlarging relative to prior exams. This may represent a loculated pleural effusion or hemothorax. Trace pneumothorax again seen at the right lung base. Minor atelectasis also seen at the lung base. The left lung is clear. Cardiomediastinal silhouette: Normal cardiac size. Status post median sternotomy. Other: Right rib fractures. IMPRESSION: 1. Enlarging peripheral opacity at the inferior right hemithorax may represent loculated effusion or hemothorax as this is seen adjacent to multiple right rib fractures. 2. Trace right basilar pneumothorax, unchanged. Sourcing Intern: PSCB Transcribe Date/Time: Apr 05 2023 7:27A Dictated by : ARSLAN ZAPATA MD This examination was interpreted and the report reviewed and electronically signed by: ARSLAN ZAPATA MD on Apr 05 2023 7:31AM EST [id number] Normal [facility] Basic metabolic 2000 panelon 04-04-2023 Anion gap [Moles/Vol] 7 mmol/L Low 9-18 [facility] Comment on above: Order Comment: Speci men Type: BLOOD SPECIMENOrdering Facility: [facility] Address: [address] [place] [id number] Performed By: #### 2 777-1, , 56515-7 ####[facility] LABORATORYCLIA [id number] [place] [address] [place] Calcium [Mass/Vol] 9.0 mg/dL Normal 8.5-10.2 [facility] Comment on above: Order Comment: Speci men Type: BLOOD SPECIMENOrdering Facility: [facility] Address: [address] [place] [id number] Performed By: #### 2 777-1, , 10631-4 ####[facility] LABORATORYCLIA [id number] [place] [address] [place] Chloride [Moles/Vol] 105 mmol/L Normal 97-105 [facility] Comment on above: Order Comment: Speci men Type: BLOOD SPECIMENOrdering Facility: [facility] Address: [address] [id number] Performed By: #### 2 777-1, , ####[facility] LABORATORYCLIA [id number] [place] [address] [place] CO2 [Moles/Vol] 26 mmol/L Normal 22-30 [facility] Comment on above: Order Comment: Speci men Type: BLOOD SPECIMENOrdering Facility: [facility] Address: [address] [place] [address] Performed By: #### 2 777-1, , ####[facility] [id number] [place] [id number] [place] Creatinine [Mass/Vol] 0.66 mg/dL Low 0.73-1.22 [facility] Comment on above: Order Comment: Speci men Type: BLOOD SPECIMENOrdering Facility: [facility] Address: [address] [place] [address] Performed By: #### 2 777-1, , ####[facility]CLIA [id number] [address] OF [facility] Creatinine and Glomerular filtration rate.predicted panel (S/P/Bld) 94 mL/min/1.73m??? Normal >=60 [facility] Comment on above: Order Comment: Speci men Type: BLOOD SPECIMENOrdering Facility: [facility] Address: [address] [place] [address] Result Comment: Christiane mated Glomerular Filtration Rate (eGFR) is calculated using the 2020 CKD-EPI creatinine equation. This equation utilizes serum creatinine, sex, and age as parameters. The creatinine assay has traceable calibration to isotope dilution-mass spectrometry. Refer to KDIGO guidelines for clinical interpretation. In patients with unstable renal function, e.g. those with acute kidney injury, the eGFR may not accurately reflect actual GFR. Performed By: #### 2 777-1, , 59943-3 ####[facility] LABORATORYCLIA [id number] [place] [address] [place] Glucose [Mass/Vol] 89 mg/dL Normal 74-99 [facility] Comment on above: Order Comment: Speci men Type: BLOOD SPECIMENOrdering Facility: [facility] Address: [address] [place] [address] Result Comment: The [place] Diabetes [employer] (ADA) provides guidance for cutoff values for fasting glucose and random glucose. The ADA defines fasting as no caloric intake for at least 8 hours. Fasting plasma glucose results between 100 to 125 mg/dL indicate increased risk for diabetes (prediabetes). Fasting plasma glucose results greater than or equal to 126 mg/dL meet the criteria for diagnosis of diabetes. In the absence of unequivocal hyperglycemia, results should be confirmed by repeat testing. In a patient with classic symptoms of hyperglycemia or hyperglycemic crisis, random plasma glucose results greater than or equal to 200 mg/dL meet the criteria for diagnosis of diabetes. Reference: Standards of Medical Care in Diabetes 2016, [place] [employer]. Diabetes Care. 2016.39(Suppl 1). Performed By: #### 2 777-1, , ####[facility] LABORATORYCLIA [id number] [place] [address] [place] Potassium [Moles/Vol] 3.8 mmol/L Normal 3.7-5.1 [facility] Comment on above: Order Comment: Speci men Type: BLOOD SPECIMENOrdering Facility: [facility] Address: [address] [place] [address] Performed By: #### 2 777-1, , ####[facility] LABORATORYCLIA [id number] [place] [address] [place] Sodium [Moles/Vol] 138 mmol/L Normal 136-144 [facility] Comment on above: Order Comment: Speci men Type: BLOOD SPECIMENOrdering Facility: [facility] Address: [address] [place] [address] Performed By: #### 2 777-1, , ####[facility] LABORATORYCLIA [id number] [place] [address] [place] Urea nitrogen [Mass/Vol] 18 mg/dL Normal 9-24 [facility] Comment on above: Order Comment: Speci men Type: BLOOD SPECIMENOrdering Facility: [facility] Address: [address] [place] [address] Performed By: #### 2 777-1, 92211-4, 17735-3 ####[facility] LABORATORYCLIA [id number] [address] [place] CBC panel Auto (Bld)on 04-04 Erythrocyte distribution width (RBC) [Ratio] 14.6 % Normal 11.5-15.0 [facility] Comment on above: Order Comment: Speci men Type: BLOOD SPECIMENOrdering Facility: [facility] Address: [address] [place] [address] Performed By: #### 5 8410-2 ####[facility] LABORATORYCLIA [id number] [address] [place] Hematocrit (Bld) [Volume fraction] 27.5 % Low 39.0-51.0 [facility] Comment on above: Order Comment: Speci men Type: BLOOD SPECIMENOrdering Facility: [facility] Address: [address] [place] [address] Performed By: #### 5 8410-2 ####[facility] LABORATORYCLIA [id number] [address] [place] Hemoglobin (Bld) [Mass/Vol] 9.0 g/dL Low 13.0-17.0 [facility] Comment on above: Order Comment: Speci men Type: BLOOD SPECIMENOrdering Facility: [facility] Address: [address] [place] [address] Performed By: #### 5 8410-2 ####[facility] LABORATORYCLIA [id number] [address] [place] MCH (RBC) [Entitic mass] 30.3 pg Normal 26.0-34.0 [facility] Comment on above: Order Comment: Speci men Type: BLOOD SPECIMENOrdering Facility: [facility] Address: [address] [place] [address] Performed By: #### 5 8410-2 ####[facility] LABORATORYCLIA [id number] [address] STATES OF [facility] MCHC (RBC) [Mass/Vol] 32.7 g/dL Normal 30.5-36.0 [facility] Comment on above: Order Comment: Speci men Type: BLOOD SPECIMENOrdering Facility: [facility] Address: [address] [place] [address] Performed By: #### 5 8410-2 ####[facility] LABORATORYCLIA [id number] [address] [place] MCV (RBC) [Entitic vol] 92.6 fL Normal 80.0-100.0 [facility] Comment on above: Order Comment: Speci men Type: BLOOD SPECIMENOrdering Facility: [facility] Address: [address] [place] [address] Performed By: #### 5 8410-2 ####[facility] LABORATORYCLIA [id number] [address] Nucleated RBC (Bld) [#/Vol] 10*3/uL Normal <0.01 [facility] Comment on above: Order Comment: Speci men Type: BLOOD SPECIMENOrdering Facility: [facility] Address: [address] [place] [address] Performed By: #### 5 8410-2 ####[facility] LABORATORYCLIA [id number] [address] Platelet mean volume (Bld) [Entitic vol] 9.5 fL Normal 9.0-12.7 [facility] Comment on above: Order Comment: Speci men Type: BLOOD SPECIMENOrdering Facility: [facility] Address: [address] [place] [address] Performed By: #### 5 8410-2 ####[facility] LABORATORYCLIA [id number] [address] [place] Platelets (Bld) [#/Vol] 155 10*3/uL Normal 150-400 [facility] Comment on above: Order Comment: Speci men Type: BLOOD SPECIMENOrdering Facility: [facility] Address: [address] [place] [address] Performed By: #### 5 8410-2 ####[facility] LABORATORYCLIA [id number] [address] RBC (Bld) [#/Vol] 2.97 10*6/uL Low 4.20-6.00 [facility] Comment on above: Order Comment: Speci men Type: BLOOD SPECIMENOrdering Facility: [facility] Address: [address] [place] [address] Performed By: #### 5 8410-2 ####[facility] LABORATORYCLIA [id number] [address] WBC (Bld) [#/Vol] 6.62 10*3/uL Normal 3.70-11.00 [facility] Comment on above: Order Comment: Speci men Type: BLOOD SPECIMENOrdering Facility: [facility] Address: [address] [place] [address] Performed By: #### 5 8410-2 ####[facility] LABORATORYCLIA [id number] [address] CONSULT PROGon 04-04-2023 CONSULT PROG HNO ID: [id number] Author: RICHMOND NOVAK MD Service: General Surgery Author Type: Physician Type: Consult Progress Note Filed: 04/04/2023 10:22 Note Text: Surgical Intensive Care Unit Consult Note SERVICE DATE: 04/02/2023 SERVICE TIME: 7:08 AM REASON FOR CONSULT: rib fx, hemothorax REQUESTING PHYSICIAN: ED Subjective Patient seen in the morning. Patient has right-sided chest tube with 2075 cc output loss 24 hours. Patient is able to pull 1500 cc on incentive spirometer. Patient is alert and oriented x 3. Encephalopathy seems to have improved significantly improved since admission. FUNCTIONAL STATUS: Independent PAST MEDICAL HISTORY Diagnosis Date CAD (coronary artery disease) HTN (hypertension) 08/12/2013 [place] neurology Tremor Trigeminal neuralgia PAST SURGICAL HISTORY Procedure Laterality Date CABG (3) VEIN GRAFTS AND ARTERIAL GRAFT(S) 04/20/2022 (RICHMOND-LAD, SVG-OM, SVG-PDA PAST SURGICAL HISTORY OF chain saw laceration PAST SURGICAL HISTORY OF stereotactic radiosurgery for left sided trigeminal neuralgia and meningioma PROSTATECTOMY, SIMPLE, BENIGN 08/18/2013 Dr. Vasquez TONSILLECTOMY PRIMARY/SECONDARY Tonsillectomy FAMILY HISTORY Problem Relation Age of Onset None Mother None Father Social History Tobacco Use Smoking status: Never Smokeless tobacco: Never Vaping Use Vaping Use: Never used Substance Use Topics Alcohol use: No Drug use: No ELIQUIS 5 mg tab(s), Take 1 tablet by mouth every 12 hours., Disp: , Rfl: lisinopril (ZESTRIL) 40 mg tablet, Take 1 tablet by mouth every afternoon., Disp: , Rfl: acetaminophen (TYLENOL) 500 mg tablet, Take 500 mg by mouth as needed for pain., Disp: , Rfl: dilTIAZem CD (CARDIZEM CD, CARTIA XT) 240 mg 24 hr capsule, Take 1 capsule by mouth once daily. Hold for heart rate <60, SBP <100, Disp: 30 capsule, Rfl: 2 atorvastatin (LIPITOR) 40 mg tablet, Take 1 tablet by mouth daily at bedtime., Disp: 90 tablet, Rfl: 0 clopidogrel (PLAVIX) 75 mg tablet, Take 1 tablet by mouth once daily., Disp: 90 tablet, Rfl: 3 metoprolol tartrate, short acting, (LOPRESSOR) 50 mg tablet, Take 1 tablet by mouth every 8 hours. Hold for heart rate <60, SBP <100 (Patient taking differently: Take 50 mg by mouth two times a day. Hold for heart rate <60, SBP <100), Disp: 90 tablet, Rfl: 0 albuterol HFA (PROVENTIL HFA, VENTOLIN HFA) 90 mcg/actuation inhaler, Inhale 1 Puff as instructed every 4 hours as needed for wheezing/shortness of breath., Disp: , Rfl: levothyroxine 50 mcg cap, Take 50 mcg by mouth daily before breakfast., Disp: , Rfl: carBAMazepine (TEGRETOL) 200 mg tablet, Take 1 tablet by mouth three times daily., Disp: 270 tablet, Rfl: 3 Current Facility-Administered Medications Medication Dose Route Frequency carBAMazepine 200 mg tab(s) (TEGretol) 200 mg ORAL TID atorvastatin 40 mg tab(s) (LIPITOR) 40 mg ORAL AT BEDTIME albuterol HFA 90 mcg/actuation 1 Puff (PROVENTIL HFA, VENTOLIN HFA) 1 Puff INHALATION q 4 H PRN levothyroxine 25 mcg tab(s) (SYNTHROID) 25 mcg ORAL BEFORE BREAKFAST DAILY NaCl 0.9% iv flush bag 20 mL INTRAVENOUS PRN acetaminophen 975 mg tab(s) (TYLENOL) 975 mg ORAL/FEEDING TUBE QID oxyCODONE IR 5-10 mg tab(s) (ROXICODONE) 5-10 mg ORAL/FEEDING TUBE q 6 H PRN ipratropium-albuterol 3 mL nebulizer solution (DUONEB) 3 mL INHALATION q 6 H PRN ondansetron 4 mg tab(s) (ZOFRAN) 4 mg ORAL q 6 H PRN Or ondansetron (PF) 4 mg injection (ZOFRAN) 4 mg INTRAVENOUS q 6 H PRN lidocaine 4 % 1 Patch (SALONPAS) 1 Patch TRANSDERMAL DAILY And lidocaine patch - REMOVE OTHER AT BEDTIME And lidocaine - VERIFY PATCH OTHER q 8 H pregabalin 75 mg cap(s) (LYRICA) 75 mg ORAL BID fentaNYL 50 mcg/mL 50 mcg injection (SUBLIMAZE) 50 mcg INTRAVENOUS q 1 H PRN dilTIAZem CD 120 mg cap(s) (CARDIZEM CD, CARTIA XT) 120 mg ORAL DAILY senna-docusate 8.6-50 mg 1 tablet (SENNA-S) 1 tablet ORAL BID lactated ringers iv infusion 125 mL/hr INTRAVENOUS CONTINUOUS apixaban 5 mg tab(s) (ELIQUIS) 5 mg ORAL q 12 HR clopidogrel 75 mg tab(s) (PLAVIX) 75 mg ORAL DAILY sodium phosphate 45 mmol in D5W 250 mL 45 mmol INTRAVENOUS ONCE metoprolol 5 mg injection (LOPRESSOR) 5 mg INTRAVENOUS q 6 H PRN Allergies As of Date: 04/01/2023 (No Known Allergies) Fully Assessed 04/01/2023 Objective Physical exam BP: 138/75 Temp: 36.3 ?C (97.3 ?F) Temp src: Oral Pulse: 87 Resp: 9 SpO2: 96 % General: Patient is lying supine in bed. Does not appear in acute distress. Alert and oriented x 3 Neuro: Alert and oriented x 3 no gross motor or sensory deficits. Patient is able to follow directions and respond to questions appropriately HEENT: ERNESTO, AT Cards: HR wnl today Am. BP wnl. Patient stable on exam. Resp: BL equal chest rise. No accessory muscle use on exam. R CT on -20CS with 275 cc output. No airleak appreciated on chest tube. ABD: Soft, non-tender, non-distended. Extremities: No deformities on exam. Psych: Appr (more content not included)... Normal [facility] CONSULT PROG HNO ID: [id number] Author: ANNA VALENTIN MD Service: General Surgery Author Type: Physician Type: Consult Progress Note Filed: 04/04/2023 14:51 Note Text: Trauma Surgery Progress Note SERVICE DATE: 04/04/2023 Trauma Service Pager: For questions or concerns Mon-Fri 6a-5p please page [phone]. After 5pm and on Weekends and Holidays, please page [phone] if in ICU or [phone] if on RNF. SUBJECTIVE: Patient seen in the morning. Blood pressure with systolics in the 200s requiring metoprolol and hydralazine. Aox3 this am OBJECTIVE: Vitals: Temp (24hrs), Av.5 ?C (97.7 ?F), Min:36.4 ?C (97.5 ?F), Max:36.6 ?C (97.9 ?F) BP (!) 204/110 Pulse 110 Temp 36.6 ?C (97.9 ?F) (Oral) Resp 21 Ht 177.8 cm (5' 10) Wt 83.8 kg (184 lb 11.9 oz) SpO2 94% BMI 26.51 kg/m? O2 Therapy: Room Air IANDO: Date 04/03/23699 - 04/04/23 0659 04/04/23 07 - 04/05/23 0659 Shift 3122-2180 1871-2680 8608-4444 24 Hour Total 5436-7385 7521-4265 2358-6040 24 Hour Total INTAKE PO 480 480 PO 480 480 IV 1586 1586 Volume (mL) (lactated ringers iv infusion) 1586 1586 Shift Total 480 1586 2066 OUTPUT Urine 484 463 3532 2050 Output ( External Collection Device 04/01/[address] [place] [address]) 108 226 7358 2050 Chest Tube 70 55 150 275 Chest Tube Output (Chest Tube 04/01/23 1115 [facility] Right Lateral Pleural 28 Fr Tube #1) 70 55 150 275 Shift Total 070 577 4968 2325 Weight (kg) 83.8 83.8 83.8 83.8 83.8 83.8 83.8 83.8 MEDICATIONS: Current Facility-Administered Medications Medication Dose Route Frequency sodium phosphate 45 mmol in D5W 250 mL 45 mmol INTRAVENOUS ONCE potassium chloride iv piggyback 20 mEq/100 mL 20 mEq INTRAVENOUS q 2 H metoprolol 5 mg injection (LOPRESSOR) 5 mg INTRAVENOUS q 6 H PRN apixaban 5 mg tab(s) (ELIQUIS) 5 mg ORAL q 12 HR clopidogrel 75 mg tab(s) (PLAVIX) 75 mg ORAL DAILY senna-docusate 8.6-50 mg 1 tablet (SENNA-S) 1 tablet ORAL BID lactated ringers iv infusion 125 mL/hr INTRAVENOUS CONTINUOUS carBAMazepine 200 mg tab(s) (TEGretol) 200 mg ORAL TID atorvastatin 40 mg tab(s) (LIPITOR) 40 mg ORAL AT BEDTIME albuterol HFA 90 mcg/actuation 1 Puff (PROVENTIL HFA, VENTOLIN HFA) 1 Puff INHALATION q 4 H PRN levothyroxine 25 mcg tab(s) (SYNTHROID) 25 mcg ORAL BEFORE BREAKFAST DAILY NaCl 0.9% iv flush bag 20 mL INTRAVENOUS PRN acetaminophen 975 mg tab(s) (TYLENOL) 975 mg ORAL/FEEDING TUBE QID oxyCODONE IR 5-10 mg tab(s) (ROXICODONE) 5-10 mg ORAL/FEEDING TUBE q 6 H PRN ipratropium-albuterol 3 mL nebulizer solution (DUONEB) 3 mL INHALATION q 6 H PRN ondansetron 4 mg tab(s) (ZOFRAN) 4 mg ORAL q 6 H PRN Or ondansetron (PF) 4 mg injection (ZOFRAN) 4 mg INTRAVENOUS q 6 H PRN lidocaine 4 % 1 Patch (SALONPAS) 1 Patch TRANSDERMAL DAILY And lidocaine patch - REMOVE OTHER AT BEDTIME And lidocaine - VERIFY PATCH OTHER q 8 H pregabalin 75 mg cap(s) (LYRICA) 75 mg ORAL BID fentaNYL 50 mcg/mL 50 mcg injection (SUBLIMAZE) 50 mcg INTRAVENOUS q 1 H PRN dilTIAZem CD 120 mg cap(s) (CARDIZEM CD, CARTIA XT) 120 mg ORAL DAILY Labs: Recent Labs 04/04/23 0357 04/03/23 0410 04/02/23 1845 04/02/23 1626 NA 138 139 -- -- K 3.8 3.8 -- -- CHLOR 105 102 -- -- CO2 26 27 -- -- BUN 18 31* -- -- CREAT 0.66* 1.01 -- -- GLUC 89 93 -- -- ANION 7* 10 -- -- CA 9.0 9.0 -- -- MG 2.1 2.6* -- -- P 2.0* 3.4 -- -- WBC 6.62 8.25 < > -- HB 9.0* 9.6* < > -- HCT 27.5* 29.7* < > -- PLT 155 150 < > -- LACT -- -- -- 0.9 PH -- -- -- 7.42 PCO2 -- -- -- 41 PO2 -- -- -- 74* BE -- -- -- 2 HCO3 -- -- -- 26 < > = values in this interval not displayed. PHYSICAL EXAM: Physical exam BP: 167/58 Temp: 36.3 ?C (97.3 ?F) Pulse: 76 Resp: 13 SpO2: 100 % General: Patient is lying supine in bed. Does not appear in acute distress. He is not able to respond appropriate questions. Neuro: AANDOx0. No gross motor or sensory deficits. Patient is able to follow directions but not able to respond appropriately to questions. HEENT: NC, AT Cards: HR wnl today Am. BP wnl. Patient stable on exam. Resp: BL equal chest rise. No accessory muscle use on exam. R CT on -20CS with 160cc output. No airleak appreciated on chest tube. ABD: Soft, non-tender, non-distended. Extremities: No deformities on exam. Psych: Appropriate affect. 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 Home BP: 186/102 P 57 Office BP: 192/82 P 60 Assessment: 83 year old male s/p GLF while using wheelbarrow Imaging performed: CTHNCAP (more content not included)... Normal [facility] Calcium.ionized [Moles/Vol]o n 04-04-2023 Calcium.ionized (BldV) [Mass/Vol] 1.18 mmol/L Normal 1.08-1.30 [facility] Comment on above: Order Comment: Jaime howell Type: BLOOD SPECIMENOrdering Facility: [facility] Address: [address] [place] [address] Performed By: #### 1 995-0 ####[facility]CL[facility] [id number] [address] STATES OF [facility] Calcium.ionized adjusted to pH 7.4 (Bld) [Moles/Vol] 1.23 mmol/L Normal 1.08-1.30 [facility] Comment on above: Order Comment: Jaime howell Type: BLOOD SPECIMENOrdering Facility: [facility] Address: [address] [place] [address] Performed By: #### 1 995-0 ####[facility] LABORATORYCLIA [id number] [place] [address] [place] Magnesium SerPl-mCncon 04-04 Magnesium [Mass/Vol] 2.1 mg/dL Normal 1.7-2.3 [facility] Comment on above: Order Comment: Specavril howell Type: BLOOD SPECIMENOrdering Facility: [facility] Address: [address] [place] [address] Performed By: #### 2 777-1, 24619-6, 16345-1 ####[facility] LABORATORYCLIA [id number] [place] [address] [place] Phosphate SerPl-mCncon 02-25 -2024 Phosphate [Mass/Vol] 2.0 mg/dL Low 2.7-4.8 [facility] Comment on above: Order Comment: Speci men Type: BLOOD SPECIMENOrdering Facility: [facility] Address: [facility] [place] [address] Performed By: #### 2 777-1, 34828-2, 54356-6 ####[facility] LABORATORYCLIA [id number] [place] [id number] [facility] XR CHEST 1V FRONTALon 2023 XR CHEST 1V FRONTAL * * *Final Report* * * DATE OF EXAM: Apr 04 2023 5:35AM AKX [id number] - XR CHEST 1V FRONTAL / PROCEDURE REASON: Post-operative/post-p rocedure assessment * * * * Physician Interpretation * * * * EXAMINATION: CHEST RADIOGRAPH (SINGLE VIEW AP OR PA) CLINICAL HISTORY: Post-operative/post-p rocedure assessment, Evaluate tube, line, or lead position MQ: XC1_5 Comparison: Chest x-ray April 03, 2023 RESULT: Lines, tubes, and devices: case monitor leads overlie the thorax. Right chest tube. Lungs and pleura: Possible trace pneumothorax at the right lung base. Small right pleural effusion and patchy opacities at the right lung base likely atelectasis Cardiomediastinal silhouette: Normal cardiomediastinal silhouette. Other: External fixation hardware. IMPRESSION: No significant interval change from prior chest x-ray. Sourcing Intern: PSCB Transcribe Date/Time: Apr 04 2023 7:28A Dictated by : RONEL OWUSU MD This examination was interpreted and the report reviewed and electronically signed by: RONEL OWUSU MD on Apr 04 2023 7:31AM EST [id number] Normal [facility] ALLIED HEALTHon 04-03-2023 ALLIED HEALTH HNO ID: [id number] Author: LACIE SILVA RT(R) Service: ? Author Type: Technologist Type: Allied Health Filed: 04/03/2023 06:09 Note Text: Radiology Service Progress Note PATIENT NAME: Olga Lindsey DATE OF SERVICE: April 03, 2023 TIME: 6:09 AM PATIENT IDENTITY VERIFICATION COMPLETED USING TWO (2) IDENTIFIERS: Name and Date of confirmed by patient verbally and Name and Date of confirmed by identification band. FALL SCREENING: Has the patient had 2 falls in the last year or 1 fall with injury or currently using an Ambulatory Assistive Device (Walker, Cane, Wheelchair, Crutches, etc.)? Inpatient: Screened on floor PATIENT GENDER DATA: Male PATIENT RELEVANT IMPLANT DATA REVIEWED: Not Applicable PATIENT PRESENTS WITH AN IMPLANTABLE OR ATTACHED EDUCATION ADMINISTRATIVE ASSISTANT: No RADIOLOGY DEPARTMENT: General X-ray: Exam(s) Completed: Chest X-Ray PERIPHERAL IV DATA: Not applicable SIGNED BY: Lacie Silva RT(R) April 03, 2023 6:09 AM Normal [facility] Basic metabolic 2000 panelon 04-03-2023 Anion gap [Moles/Vol] 10 mmol/L Normal 9-18 [facility] Comment on above: Order Comment: Speci men Type: BLOOD SPECIMENOrdering Facility: [facility] Address: [address] [place] [address] Performed By: #### 1 9123-9, 60327-2, 2776-02 ####[facility] LABORATORYCLIA [id number] [place] [address] [place] Calcium [Mass/Vol] 9.0 mg/dL Normal 8.5-10.2 [facility] Comment on above: Order Comment: Speci men Type: BLOOD SPECIMENOrdering Facility: [facility] Address: [address] [place] [address] Performed By: #### 1 9123-9, 37062-4, 2776-02 ####[facility] LABORATORYCLIA [id number] [place] [address] [place] Chloride [Moles/Vol] 102 mmol/L Normal 97-105 [facility] Comment on above: Order Comment: Speci men Type: BLOOD SPECIMENOrdering Facility: [facility] Address: [address] [place] [address] Performed By: #### 1 9123-9, 35316-6, 277- ####[facility] LABORATORYCLIA [id number] [place] [address] [place] CO2 [Moles/Vol] 27 mmol/L Normal 22-30 [facility] Comment on above: Order Comment: Speci dante Type: BLOOD SPECIMENOrdering Facility: [facility] Address: [address] [place] [address] Performed By: #### 1 9123-9, 49824-7, 2776- ####[facility] LABORATORYCLIA [id number] [address] STATES OF [facility] Creatinine [Mass/Vol] 1.01 mg/dL Normal 0.73-1.22 [facility] Comment on above: Order Comment: Speci men Type: BLOOD SPECIMENOrdering Facility: [facility] Address: [address] [place] [address] Performed By: #### 1 9123-9, 37845-2, 2776-02 ####[facility]NACLIA [id number] [address] Creatinine and Glomerular filtration rate.predicted panel (S/P/Bld) 74 mL/min/1.73m??? Normal >=60 [facility] Comment on above: Order Comment: Speci dante Type: BLOOD SPECIMENOrdering Facility: [facility] Address: [address] [place] [address] Result Comment: Christiane mated Glomerular Filtration Rate (eGFR) is calculated using the 2020 CKD-EPI creatinine equation. This equation utilizes serum creatinine, sex, and age as parameters. The creatinine assay has traceable calibration to isotope dilution-mass spectrometry. Refer to KDIGO guidelines for clinical interpretation. In patients with unstable renal function, e.g. those with acute kidney injury, the eGFR may not accurately reflect actual GFR. Performed By: #### 1 9123-9, 25975-1, 2776-02 ####[facility] LABORATORYCLIA [id number] [address] STATES OF [facility] Glucose [Mass/Vol] 93 mg/dL Normal 74-99 [facility] Comment on above: Order Comment: Speci men Type: BLOOD SPECIMENOrdering Facility: [facility] Address: [address] [place] [address] Result Comment: The [place] Diabetes [employer] (ADA) provides guidance for cutoff values for fasting glucose and random glucose. The ADA defines fasting as no caloric intake for at least 8 hours. Fasting plasma glucose results between 100 to 125 mg/dL indicate increased risk for diabetes (prediabetes). Fasting plasma glucose results greater than or equal to 126 mg/dL meet the criteria for diagnosis of diabetes. In the absence of unequivocal hyperglycemia, results should be confirmed by repeat testing. In a patient with classic symptoms of hyperglycemia or hyperglycemic crisis, random plasma glucose results greater than or equal to 200 mg/dL meet the criteria for diagnosis of diabetes. Reference: Standards of Medical Care in Diabetes 2016, [place] [employer]. Diabetes Care. 2016.39(Suppl 1). Performed By: #### 1 9123-9, 46175-7, 2776-02 ####[facility] LABORATORYCLIA [id number] [place] [address] [place] Potassium [Moles/Vol] 3.8 mmol/L Normal 3.7-5.1 [facility] Comment on above: Order Comment: Jaime howell Type: BLOOD SPECIMENOrdering Facility: [facility] Address: [address] [place] [address] Performed By: #### 1 9123-9, 77345-3, 2776-02 ####[facility] LABORATORYCLIA [id number] [place] [address] [place] Sodium [Moles/Vol] 139 mmol/L Normal 136-144 [facility] Comment on above: Order Comment: Jaime men Type: BLOOD SPECIMENOrdering Facility: [facility] Address: [address] [place] [address] Performed By: #### 1 9123-9, 32091-6, 2776-02 ####[facility] LABORATORYCLIA [id number] [place] [address] [place] Urea nitrogen [Mass/Vol] 31 mg/dL High 9-24 [facility] Comment on above: Order Comment: Jaime howell Type: BLOOD SPECIMENOrdering Facility: [facility] Address: [address] [place] [address] Performed By: #### 1 9123-9, 21353-9, 2777-1 ####[facility] LABORATORYCLIA [id number] [address] CBC panel Auto (Bld)on 04-03 Erythrocyte distribution width (RBC) [Ratio] 14.8 % Normal 11.5-15.0 [facility] Comment on above: Order Comment: Speci men Type: BLOOD SPECIMENOrdering Facility: [facility] Address: [address] [place] [address] Performed By: #### 5 8410-2 ####[facility] LABORATORYCLIA [id number] [address] Hematocrit (Bld) [Volume fraction] 29.7 % Low 39.0-51.0 [facility] Comment on above: Order Comment: Speci men Type: BLOOD SPECIMENOrdering Facility: [facility] Address: [address] [place] [address] Performed By: #### 5 8410-2 ####[facility] LABORATORYCLIA [id number] [address] Hemoglobin (Bld) [Mass/Vol] 9.6 g/dL Low 13.0-17.0 [facility] Comment on above: Order Comment: Speci men Type: BLOOD SPECIMENOrdering Facility: [facility] Address: [address] [place] [address] Performed By: #### 5 8410-2 ####[facility] LABORATORYCLIA [id number] [address] MCH (RBC) [Entitic mass] 29.7 pg Normal 26.0-34.0 [facility] Comment on above: Order Comment: Speci men Type: BLOOD SPECIMENOrdering Facility: [facility] Address: [address] [place] [address] Performed By: #### 5 8410-2 ####[facility] LABORATORYCLIA [id number] [address] MCHC (RBC) [Mass/Vol] 32.3 g/dL Normal 30.5-36.0 [facility] Comment on above: Order Comment: Speci men Type: BLOOD SPECIMENOrdering Facility: [facility] Address: [address] [place] [address] Performed By: #### 5 8410-2 ####[facility] LABORATORYCLIA [id number] [address] [place] MCV (RBC) [Entitic vol] 92.0 fL Normal 80.0-100.0 [facility] Comment on above: Order Comment: Speci men Type: BLOOD SPECIMENOrdering Facility: [facility] Address: [address] [place] [address] Performed By: #### 5 8410-2 ####[facility] LABORATORYCLIA [id number] [address] [place] Nucleated RBC (Bld) [#/Vol] 10*3/uL Normal <0.01 [facility] Comment on above: Order Comment: Speci men Type: BLOOD SPECIMENOrdering Facility: [facility] Address: [address] [place] [address] Performed By: #### 5 8410-2 ####[facility] LABORATORYCLIA [id number] [address] [place] Platelet mean volume (Bld) [Entitic vol] 9.8 fL Normal 9.0-12.7 [facility] Comment on above: Order Comment: Speci men Type: BLOOD SPECIMENOrdering Facility: [facility] Address: [address] [place] [address] Performed By: #### 5 8410-2 ####[facility] LABORATORYCLIA [id number] [address] [place] Platelets (Bld) [#/Vol] 150 10*3/uL Normal 150-400 [facility] Comment on above: Order Comment: Speci men Type: BLOOD SPECIMENOrdering Facility: [facility] Address: [address] [place] [address] Performed By: #### 5 8410-2 ####[facility]ORATORYCLIA [id number] [place] [address] [facility] RBC (Bld) [#/Vol] 3.23 10*6/uL Low 4.20-6.00 [facility] Comment on above: Order Comment: Speci men Type: BLOOD SPECIMENOrdering Facility: [facility] Address: [address] [place] [address] Performed By: #### 5 8410-2 ####[facility] LABORATORYCLIA [id number] [place] [id number] [facility] WBC (Bld) [#/Vol] 8.25 10*3/uL Normal 3.70-11.00 [facility] Comment on above: Order Comment: Speci men Type: BLOOD SPECIMENOrdering Facility: [facility] Address: [address] [place] [address] Performed By: #### 5 8410-2 ####[facility] LABORATORYCLIA [id number] [place] [id number] [facility] CONSULT PROGon 04-03-2023 CONSULT PROG HNO ID: [id number] Author: ANNA VALENTIN MD Service: General Surgery Author Type: Physician Type: Consult Progress Note Filed: 04/03/2023 13:59 Note Text: Trauma Surgery Progress Note SERVICE DATE: 04/03/2023 Trauma Service Pager: For questions or concerns Mon-Fri 6a-5p please page [phone]. After 5pm and on Weekends and Holidays, please page [phone] if in ICU or [phone] if on RNF. SUBJECTIVE: Patient seen in the morning. Patient's respiratory status is improved from previous and chest tube is having <100cc output from yesterday. Patient is alert and oriented x 0 on exam. According to nursing at around 7 or 8 PM patient was alert and oriented x 3 and responding appropriately. It seems that patient's altered mental status is likely a waxing and waning type delirium based on presentation. Ammonia workup for causes of metabolic encephalopathy have been negative. Continuous EEG results are pending OBJECTIVE: Vitals: Temp (24hrs), Av.7 ?C (98 ?F), Min:36.3 ?C (97.3 ?F), Max:37.6 ?C (99.7 ?F) BP 167/58 Pulse 76 Temp 36.3 ?C (97.3 ?F) Resp 13 Ht 177.8 cm (5' 10) Wt 83.8 kg (184 lb 11.9 oz) SpO2 100% BMI 26.51 kg/m? O2 Therapy: Nasal Cannula IANDO: Date 04/02/23 07 - 04/03/23 0659 04/03/23 07 - 04/04/23 0659 Shift 8966-8176 6819-4189 6111-8643 24 Hour Total 6407-5630 0808-8992 2243-6453 24 Hour Total INTAKE IV 314 521 6922 1807 Volume (mL) (magnesium sulfate in sterile water 4 g in 100 mL iv piggyback) 100 100 Volume (mL) (lactated ringers iv infusion) 216 1491 1707 Shift Total 366 700 8314 1807 OUTPUT Urine 137 532 5669 1750 Output ( External Collection Device 04/01/23 1600 [facility]) 611 963 9827 1750 Chest Tube 160 0 200 360 Chest Tube Output (Chest Tube 04/01/23 1115 [facility] Right Lateral Pleural 28 Fr Tube #1) 160 0 200 360 Shift Total 900 842 9120 2110 Weight (kg) 83.8 83.8 83.8 83.8 83.8 83.8 83.8 83.8 MEDICATIONS: Current Facility-Administered Medications Medication Dose Route Frequency senna-docusate 8.6-50 mg 1 tablet (SENNA-S) 1 tablet ORAL BID lactated ringers iv infusion 125 mL/hr INTRAVENOUS CONTINUOUS carBAMazepine 200 mg tab(s) (TEGretol) 200 mg ORAL TID atorvastatin 40 mg tab(s) (LIPITOR) 40 mg ORAL AT BEDTIME albuterol HFA 90 mcg/actuation 1 Puff (PROVENTIL HFA, VENTOLIN HFA) 1 Puff INHALATION q 4 H PRN levothyroxine 25 mcg tab(s) (SYNTHROID) 25 mcg ORAL BEFORE BREAKFAST DAILY NaCl 0.9% iv flush bag 20 mL INTRAVENOUS PRN acetaminophen 975 mg tab(s) (TYLENOL) 975 mg ORAL/FEEDING TUBE QID oxyCODONE IR 5-10 mg tab(s) (ROXICODONE) 5-10 mg ORAL/FEEDING TUBE q 6 H PRN ipratropium-albuterol 3 mL nebulizer solution (DUONEB) 3 mL INHALATION q 6 H PRN ondansetron 4 mg tab(s) (ZOFRAN) 4 mg ORAL q 6 H PRN Or ondansetron (PF) 4 mg injection (ZOFRAN) 4 mg INTRAVENOUS q 6 H PRN lidocaine 4 % 1 Patch (SALONPAS) 1 Patch TRANSDERMAL DAILY And lidocaine patch - REMOVE OTHER AT BEDTIME And lidocaine - VERIFY PATCH OTHER q 8 H pregabalin 75 mg cap(s) (LYRICA) 75 mg ORAL BID fentaNYL 50 mcg/mL 50 mcg injection (SUBLIMAZE) 50 mcg INTRAVENOUS q 1 H PRN dilTIAZem CD 120 mg cap(s) (CARDIZEM CD, CARTIA XT) 120 mg ORAL DAILY Labs: Recent Labs 04/03/23 0410 04/02/23 1845 04/02/23 1626 04/02/23 1157 04/02/23 0343 NA 139 -- -- 135* 137 K 3.8 -- -- -- 4.0 CHLOR 102 -- -- -- 100 CO2 27 -- -- -- 25 BUN 31* -- -- -- 30* CREAT 1.01 -- -- 1.42* 1.10 GLUC 93 -- -- -- 121* ANION 10 -- -- -- 12 CA 9.0 -- -- -- 9.1 MG 2.6* -- -- -- 1.9 P 3.4 -- -- -- 6.8* WBC 8.25 9.29 -- -- 11.01* HB 9.6* 9.3* -- -- 9.4* HCT 29.7* 27.8* -- -- 29.1* PLT 150 144* -- -- 159 LACT -- -- 0.9 -- -- PH -- -- 7.42 -- -- PCO2 -- -- 41 -- -- PO2 -- -- 74* -- -- BE -- -- 2 -- -- HCO3 -- -- 26 -- -- PHYSICAL EXAM: Physical exam BP: 167/58 Temp: 36.3 ?C (97.3 ?F) Pulse: 76 Resp: 13 SpO2: 100 % General: Patient is lying supine in bed. Does not appear in acute distress. He is not able to respond appropriate questions. Neuro: AANDOx0. No gross motor or sensory deficits. Patient is able to follow directions but not able to respond appropriately to questions. HEENT: NC, AT Cards: HR wnl today Am. BP wnl. Patient stable on exam. Resp: BL equal chest rise. No accessory muscle use on exam. R CT on -20CS with 160cc output. No airleak appreciated on chest tube. ABD: Soft, non-tender, non-distended. Extremities: No deformities on exam. Psych: Appropriate affect. 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 Normal [facility] CONSULT PROG HNO ID: [id number] Author: RICHMOND NOVAK MD Service: General Surgery Author Type: Physician Type: Consult Progress Note Filed: 04/03/2023 10:58 Note Text: Surgical Intensive Care Unit Consult Note SERVICE DATE: 04/02/2023 SERVICE TIME: 7:08 AM REASON FOR CONSULT: rib fx, hemothorax REQUESTING PHYSICIAN: ED Subjective Patient seen in the morning. Patient's respiratory status is improved from previous and chest tube is having <100cc output from yesterday. Patient is alert and oriented x 0 on exam. According to nursing at around 7 or 8 PM patient was alert and oriented x 3 and responding appropriately. It seems that patient's altered mental status is likely a waxing and waning type delirium based on presentation. Ammonia workup for causes of metabolic encephalopathy have been negative. Continuous EEG results are pending FUNCTIONAL STATUS: Independent PAST MEDICAL HISTORY Diagnosis Date CAD (coronary artery disease) HTN (hypertension) 08/12/2013 [place] neurology Tremor Trigeminal neuralgia PAST SURGICAL HISTORY Procedure Laterality Date CABG (3) VEIN GRAFTS AND ARTERIAL GRAFT(S) 04/20/2022 (RICHMOND-LAD, SVG-OM, SVG-PDA PAST SURGICAL HISTORY OF chain saw laceration PAST SURGICAL HISTORY OF stereotactic radiosurgery for left sided trigeminal neuralgia and meningioma PROSTATECTOMY, SIMPLE, BENIGN 08/18/2013 Dr. Vasquez TONSILLECTOMY PRIMARY/SECONDARY Tonsillectomy FAMILY HISTORY Problem Relation Age of Onset None Mother None Father Social History Tobacco Use Smoking status: Never Smokeless tobacco: Never Vaping Use Vaping Use: Never used Substance Use Topics Alcohol use: No Drug use: No ELIQUIS 5 mg tab(s), Take 1 tablet by mouth every 12 hours., Disp: , Rfl: lisinopril (ZESTRIL) 40 mg tablet, Take 1 tablet by mouth every afternoon., Disp: , Rfl: acetaminophen (TYLENOL) 500 mg tablet, Take 500 mg by mouth as needed for pain., Disp: , Rfl: dilTIAZem CD (CARDIZEM CD, CARTIA XT) 240 mg 24 hr capsule, Take 1 capsule by mouth once daily. Hold for heart rate <60, SBP <100, Disp: 30 capsule, Rfl: 2 atorvastatin (LIPITOR) 40 mg tablet, Take 1 tablet by mouth daily at bedtime., Disp: 90 tablet, Rfl: 0 clopidogrel (PLAVIX) 75 mg tablet, Take 1 tablet by mouth once daily., Disp: 90 tablet, Rfl: 3 metoprolol tartrate, short acting, (LOPRESSOR) 50 mg tablet, Take 1 tablet by mouth every 8 hours. Hold for heart rate <60, SBP <100 (Patient taking differently: Take 50 mg by mouth two times a day. Hold for heart rate <60, SBP <100), Disp: 90 tablet, Rfl: 0 albuterol HFA (PROVENTIL HFA, VENTOLIN HFA) 90 mcg/actuation inhaler, Inhale 1 Puff as instructed every 4 hours as needed for wheezing/shortness of breath., Disp: , Rfl: levothyroxine 50 mcg cap, Take 50 mcg by mouth daily before breakfast., Disp: , Rfl: carBAMazepine (TEGRETOL) 200 mg tablet, Take 1 tablet by mouth three times daily., Disp: 270 tablet, Rfl: 3 Current Facility-Administered Medications Medication Dose Route Frequency carBAMazepine 200 mg tab(s) (TEGretol) 200 mg ORAL TID atorvastatin 40 mg tab(s) (LIPITOR) 40 mg ORAL AT BEDTIME albuterol HFA 90 mcg/actuation 1 Puff (PROVENTIL HFA, VENTOLIN HFA) 1 Puff INHALATION q 4 H PRN levothyroxine 25 mcg tab(s) (SYNTHROID) 25 mcg ORAL BEFORE BREAKFAST DAILY NaCl 0.9% iv flush bag 20 mL INTRAVENOUS PRN acetaminophen 975 mg tab(s) (TYLENOL) 975 mg ORAL/FEEDING TUBE QID oxyCODONE IR 5-10 mg tab(s) (ROXICODONE) 5-10 mg ORAL/FEEDING TUBE q 6 H PRN ipratropium-albuterol 3 mL nebulizer solution (DUONEB) 3 mL INHALATION q 6 H PRN ondansetron 4 mg tab(s) (ZOFRAN) 4 mg ORAL q 6 H PRN Or ondansetron (PF) 4 mg injection (ZOFRAN) 4 mg INTRAVENOUS q 6 H PRN lidocaine 4 % 1 Patch (SALONPAS) 1 Patch TRANSDERMAL DAILY And lidocaine patch - REMOVE OTHER AT BEDTIME And lidocaine - VERIFY PATCH OTHER q 8 H pregabalin 75 mg cap(s) (LYRICA) 75 mg ORAL BID fentaNYL 50 mcg/mL 50 mcg injection (SUBLIMAZE) 50 mcg INTRAVENOUS q 1 H PRN dilTIAZem CD 120 mg cap(s) (CARDIZEM CD, CARTIA XT) 120 mg ORAL DAILY senna-docusate 8.6-50 mg 1 tablet (SENNA-S) 1 tablet ORAL BID lactated ringers iv infusion 125 mL/hr INTRAVENOUS CONTINUOUS Allergies As of Date: 04/01/2023 (No Known Allergies) Fully Assessed 04/01/2023 Objective Physical exam BP: 167/58 Temp: 36.3 ?C (97.3 ?F) Pulse: 76 Resp: 13 SpO2: 100 % General: Patient is lying supine in bed. Does not appear in acute distress. He is not able to respond appropriate questions. Neuro: AANDOx0. No gross motor or sensory deficits. Patient is able to follow directions but not able to respond appropriately to questions. HEENT: NC, AT Cards: HR wnl today Am. BP wnl. Patient stable on exam. Resp: BL equal chest rise. No accessory muscle use on exam. R CT on -20CS with 160cc output. No airleak appreciated on chest tube. ABD: Soft, non-tender, non-distended. Extremities: No deformities on (more content not included)... Normal [facility] Calcium.ionized [Moles/Vol]o n 04-03-2023 Calcium.ionized (BldV) [Mass/Vol] 1.22 mmol/L Normal 1.08-1.30 [facility] Comment on above: Order Comment: Speci men Type: BLOOD SPECIMENOrdering Facility: [facility] Address: [address] [place] [address] Performed By: #### 1 995-0 ####[facility] LABORATORYCLIA [id number] [place] [address] [place] Calcium.ionized adjusted to pH 7.4 (Bld) [Moles/Vol] 1.20 mmol/L Normal 1.08-1.30 [facility] Comment on above: Order Comment: Speci men Type: BLOOD SPECIMENOrdering Facility: [facility] Address: [address] [place] [address] Performed By: #### 1 995-0 ####[facility] LABORATORYCLIA [id number] [place] [address] [place] Magnesium SerPl-mCncon 04-03 Magnesium [Mass/Vol] 2.6 mg/dL High 1.7-2.3 [facility] Comment on above: Order Comment: Speci men Type: BLOOD SPECIMENOrdering Facility: [facility] Address: [address] [place] [address] Performed By: #### 1 9123-9, 96794-0, 2777-1 ####[facility] LABORATORYCLIA [id number] [place] [address] [place] Phosphate SerPl-mCncon 04-03 Phosphate [Mass/Vol] 3.4 mg/dL Normal 2.7-4.8 [facility] Comment on above: Order Comment: Speci men Type: BLOOD SPECIMENOrdering Facility: [facility] Address: [address] [place] [address] Performed By: #### 1 9123-9, 60038-4, 2777-1 ####[facility] LABORATORYCLIA [id number] [place] [address] [place] XR CHEST 1V FRONTALon 2023 XR CHEST 1V FRONTAL * * *Final Report* * * DATE OF EXAM: Apr 03 2023 5:42AM [id number] - XR CHEST 1V FRONTAL / PROCEDURE REASON: Post-operative/post-p rocedure assessment * * * * Physician Interpretation * * * * EXAM TITLE: AP/PA CHEST X RAY COMPARISON: 04/02/2023 CLINICAL HISTORY: Post-operative/post-p rocedure assessment, Evaluate tube, line, or lead position ENCOUNTER: Not applicable MQ: XC1_5 RESULT: Patient rotated to the left. Lines, tubes, and devices: No significant change regarding right-sided thoracostomy tube with tip overlying the mid aspect of the right midlung zone. Lungs and pleura: Increased conspicuity of small right basilar pneumothorax. No discrete left-sided pneumothorax or right-sided effusion. Mild interval worsening of opacities at the lateral aspect of the right lower lung zone, compared to previous examination. Cardiomediastinal silhouette: Unchanged. Other: Again demonstrated are multiple right-sided rib fractures. IMPRESSION: No suggestion change regarding right-sided thoracostomy tube. Increase in size/conspicuity of small right basilar pneumothorax. Mild interval worsening of opacities at the right lower lung zone, lateral aspect. Appearance may be positional or due to worsening contusion versus consolidation or presence of loculated pleural fluid. ACTIONABLE RESULT: FOLLOW-UP Acuity: Actionable Findings: Thoracic-Other Routing Code: CT_1 Recommendation: Unlisted Recommendation (see report) Time Frame: At the discretion of the clinical team. COMMUNICATION: Results will be communicated with the ordering provider via [employer] staff message or phone message by [employer] within 2 business days of report finalization. --END OF FINDING-- Sourcing Intern: BEVERLYB Transcribe Date/Time: Apr 03 2023 7:38A Dictated by : SHAWN STUART MD This examination was interpreted and the report reviewed and electronically signed by: SHAWN STUART MD on Apr 03 2023 7:42AM EST [id number] ACTIONABLE Invalid Interpretation Code [facility] ALLIED HEALTHon 04-02-2023 [facility] HNO ID: [id number] Author: ANEL SARABIA RT(R) Service: Radiology Author Type: Technologist Type: [facility] Filed: 04/02/2023 10:10 Note Text: Radiology Service Progress Note PATIENT NAME: Olga Lindsey DATE OF SERVICE: April 02, 2023 TIME: 10:10 AM PATIENT IDENTITY VERIFICATION COMPLETED USING TWO (2) IDENTIFIERS: Name and Date of confirmed by patient verbally and Name and Date of confirmed by identification band. FALL SCREENING: Has the patient had 2 falls in the last year or 1 fall with injury or currently using an Ambulatory Assistive Device (Walker, Cane, Wheelchair, Crutches, etc.)? Inpatient: Screened on floor PATIENT GENDER DATA: Male PATIENT RELEVANT IMPLANT DATA REVIEWED: Not Applicable PATIENT PRESENTS WITH AN IMPLANTABLE OR ATTACHED EDUCATION ADMINISTRATIVE ASSISTANT: No RADIOLOGY DEPARTMENT: CT; Exam(s) Completed: Brain PERIPHERAL IV DATA: Not applicable SIGNED BY: RT Sabino(R) April 02, 2023 10:10 AM Normal [facility] HNO ID: [id number] Author: LACIE SILVA RT(R) Service: ? Author Type: Technologist Type: Allied Health Filed: 04/02/2023 06:37 Note Text: Radiology Service Progress Note PATIENT NAME: Olga Lindsey DATE OF SERVICE: April 02, 2023 TIME: 6:37 AM PATIENT IDENTITY VERIFICATION COMPLETED USING TWO (2) IDENTIFIERS: Name and Date of confirmed by patient verbally and Name and Date of confirmed by identification band. FALL SCREENING: Has the patient had 2 falls in the last year or 1 fall with injury or currently using an Ambulatory Assistive Device (Walker, Cane, Wheelchair, Crutches, etc.)? Inpatient: Screened on floor PATIENT GENDER DATA: Male PATIENT RELEVANT IMPLANT DATA REVIEWED: Not Applicable PATIENT PRESENTS WITH AN IMPLANTABLE OR ATTACHED EDUCATION ADMINISTRATIVE ASSISTANT: No RADIOLOGY DEPARTMENT: General X-ray: Exam(s) Completed: Chest X-Ray PERIPHERAL IV DATA: Not applicable SIGNED BY: RT Víctor(R) April 02, 2023 6:37 AM Normal [facility] ARTERIAL BLOOD GASESon 04-02 Base excess Calc (Bld) [Moles/Vol] 2 mmol/L Normal 0-2 [facility] Comment on above: Order Comment: Speci men Type: ARTERIAL BLOOD SPECIMENOrdering Facility: [facility] Address: [address] [place] [address] Performed By: #### A LLBG ####[facility] LABORATORYCLIA [id number] [address] Body temperature 97.7 [degF] Normal [facility] Comment on above: Order Comment: Speci men Type: ARTERIAL BLOOD SPECIMENOrdering Facility: [facility] Address: [address] [place] [address] Performed By: #### A LLBG ####[facility] LABORATORYCLIA [id number] [address] Calcium.ionized (BldV) [Mass/Vol] 1.20 mmol/L Normal 1.08-1.30 [facility] Comment on above: Order Comment: Speci men Type: ARTERIAL BLOOD SPECIMENOrdering Facility: [facility] Address: [address] [place] [address] Performed By: #### A LLBG ####[facility] LABORATORYCLIA [id number] [address] Calcium.ionized adjusted to pH 7.4 (BldA) [Moles/Vol] 1.22 mmol/L Normal 1.08-1.30 [facility] Comment on above: Order Comment: Speci men Type: ARTERIAL BLOOD SPECIMENOrdering Facility: [facility] Address: [address] [place] [address] Performed By: #### A LLBG ####[facility] LABORATORYCLIA [id number] [address] Carboxyhemoglobin (BldA) [Mass fraction] 1.9 % Normal 0.0-2.0 [facility] Comment on above: Order Comment: Speci men Type: ARTERIAL BLOOD SPECIMENOrdering Facility: [facility] Address: [address] [place] [address] Result Comment: Carb oxyhemoglobin Reference Range for Smokers: 2.0-8.0% Performed By: #### A LLBG ####[facility]ORATORYCLIA [id number] [place] [address] [place] Chloride [Moles/Vol] 100 mmol/L Low 102-109 [facility] Comment on above: Order Comment: Speci men Type: ARTERIAL BLOOD SPECIMENOrdering Facility: [facility] Address: [address] [place] [address] Performed By: #### A LLBG ####[facility]ORATORYCLIA [id number] [address] [place] CO2 (Bld) [Partial pressure] 41 mm Hg Normal 36-46 [facility] Comment on above: Order Comment: Speci men Type: ARTERIAL BLOOD SPECIMENOrdering Facility: [facility] Address: [address] [place] [address] Performed By: #### A LLBG ####[facility] LABORATORYCLIA [id number] [address] CO2 adjusted to patient's actual temperature (Bld) [Partial pressure] 40 mmHg Normal 36-46 [facility] Comment on above: Order Comment: Speci men Type: ARTERIAL BLOOD SPECIMENOrdering Facility: [facility] Address: [address] [place] [address] Performed By: #### A LLBG ####[facility]ORATORYCLIA [id number] [address] [place] Glucose [Mass/Vol] 106 mg/dL High 60-105 [facility] Comment on above: Order Comment: Speci men Type: ARTERIAL BLOOD SPECIMENOrdering Facility: [facility] Address: [address] [place] [address] Performed By: #### A LLBG ####[facility]ATORYCLIA [id number] [address] [place] HCO3 (Bld) [Moles/Vol] 26 mmol/L Normal 22-26 [facility] Comment on above: Order Comment: Speci men Type: ARTERIAL BLOOD SPECIMENOrdering Facility: [facility] Address: [address] [place] [address] Performed By: #### A LLBG ####[facility]ATORYCLIA [id number] [address] [place] Hematocrit (Bld) [Volume fraction] 28.2 % Low 39.0-51.0 [facility] Comment on above: Order Comment: Speci men Type: ARTERIAL BLOOD SPECIMENOrdering Facility: [facility] Address: [address] [place] [address] Performed By: #### A LLBG ####[facility]ATORYCLIA [id number] [address] [place] Hemoglobin (Bld) [Mass/Vol] 9.1 g/dL Low 13.0-17.0 [facility] Comment on above: Order Comment: Speci men Type: ARTERIAL BLOOD SPECIMENOrdering Facility: [facility] Address: [address] [place] [address] Performed By: #### A LLBG ####[facility] LABORATORYCLIA [id number] [address] [place] Lactate [Moles/Vol] 0.9 mmol/L Normal 0.5-2.2 [facility] Comment on above: Order Comment: Speci men Type: ARTERIAL BLOOD SPECIMENOrdering Facility: [facility] Address: [address] [place] [address] Performed By: #### A LLBG ####[facility] LABORATORYCLIA [id number] [address] [place] Methemoglobin (Bld) [Mass fraction] 0.1 % Normal 0.0-1.5 [facility] Comment on above: Order Comment: Speci men Type: ARTERIAL BLOOD SPECIMENOrdering Facility: [facility] Address: [address] [place] [address] Performed By: #### A LLBG ####[facility]ATORYCLIA [id number] [address] [place] O2 THERAPY RA=Room Air Normal [facility] Comment on above: Order Comment: Speci men Type: ARTERIAL BLOOD SPECIMENOrdering Facility: [facility] Address: [address] [place] [address] Performed By: #### A LLBG ####[facility]ATORYCLIA [id number] [address] [place] Oxygen (Bld) [Partial pressure] 74 mm Hg Low 85-95 [facility] Comment on above: Order Comment: Speci men Type: ARTERIAL BLOOD SPECIMENOrdering Facility: [facility] Address: [address] [place] [address] Performed By: #### A LLBG ####[facility] LABORATORYCLIA [id number] [address] Oxygen adjusted to patient's actual temperature (Bld) [Partial pressure] 72 mmHg Low 85-95 [facility] Comment on above: Order Comment: Speci men Type: ARTERIAL BLOOD SPECIMENOrdering Facility: [facility] Address: [address] [place] [address] Performed By: #### A LLBG ####[facility] LABORATORYCLIA [id number] [address] [place] Oxyhemoglobin (BldA) [Mass fraction] 93 % Low 95-98 [facility] Comment on above: Order Comment: Speci men Type: ARTERIAL BLOOD SPECIMENOrdering Facility: [facility] Address: [address] [place] [address] Performed By: #### A LLBG ####[facility] LABORATORYCLIA [id number] [address] [place] pH (Bld) 7.42 [pH] Normal 7.35-7.45 [facility] Comment on above: Order Comment: Speci men Type: ARTERIAL BLOOD SPECIMENOrdering Facility: [facility] Address: [address] [place] [address] Performed By: #### A LLBG ####[facility]ORYCLIA [id number] [address] [place] pH adjusted to patient's actual temperature (Bld) 7.43 Normal 7.35-7.45 [facility] Comment on above: Order Comment: Speci men Type: ARTERIAL BLOOD SPECIMENOrdering Facility: [facility] Address: [address] [place] [address] Performed By: #### A LLBG ####[facility] LABORATORYCLIA [id number] [address] PO2 / FIO2 RATIO 352 mmHg Normal >300 [facility] Comment on above: Order Comment: Speci men Type: ARTERIAL BLOOD SPECIMENOrdering Facility: [facility] Address: [address] [place] [address] Performed By: #### A LLBG ####[facility] LABORATORYCLIA [id number] [address] OF [facility] Potassium [Moles/Vol] 3.7 mmol/L Normal 3.5-5.0 [facility] Comment on above: Order Comment: Speci men Type: ARTERIAL BLOOD SPECIMENOrdering Facility: [facility] Address: [address] [place] [address] Performed By: #### A LLBG ####[facility] LABORATORYCLIA [id number] [address] [place] Sodium [Moles/Vol] 132 mmol/L Low 136-144 [facility] Comment on above: Order Comment: Speci men Type: ARTERIAL BLOOD SPECIMENOrdering Facility: [facility] Address: [address] [place] [address] Performed By: #### A LLBG ####[facility] LABORATORYCLIA [id number] [address] [place] Ammonia Plas-sCncon 04-02-19 24 Ammonia (P) [Moles/Vol] 36 umol/L Normal 16-60 [facility] Comment on above: Order Comment: Speci men Type: BLOOD SPECIMENOrdering Facility: [facility] Address: [address] [place] [address] Performed By: #### 1 6362-6 ####[facility]ATORYCLIA [id number] [address] [place] Basic metabolic 2000 panelon 04-02-2023 Anion gap [Moles/Vol] 12 mmol/L Normal 9-18 [facility] Comment on above: Order Comment: Speci men Type: BLOOD SPECIMENOrdering Facility: [facility] Address: [address] [place] [address] Performed By: #### 2 777-1, , ####[facility]ORATORYCLIA [id number] [place] [address] [place] Calcium [Mass/Vol] 9.1 mg/dL Normal 8.5-10.2 [facility] Comment on above: Order Comment: Speci men Type: BLOOD SPECIMENOrdering Facility: [facility] Address: [address] [place] [address] Performed By: #### 2 777-1, , ####[facility] LABORATORYCLIA [id number] [place] [address] [place] Chloride [Moles/Vol] 100 mmol/L Normal 97-105 [facility] Comment on above: Order Comment: Speci men Type: BLOOD SPECIMENOrdering Facility: [facility] Address: [address] [place] [address] Performed By: #### 2 777-1, , ####[facility] LABORATORYCLIA [id number] [place] [address] [place] CO2 [Moles/Vol] 25 mmol/L Normal 22-30 [facility] Comment on above: Order Comment: Speci men Type: BLOOD SPECIMENOrdering Facility: [facility] Address: [address] [place] [address] Performed By: #### 2 777-1, , ####[facility] LABORATORYCLIA [id number] [place] [address] [place] Creatinine [Mass/Vol] 1.10 mg/dL Normal 0.73-1.22 [facility] Comment on above: Order Comment: Speci men Type: BLOOD SPECIMENOrdering Facility: [facility] Address: [address] [place] [address] Performed By: #### 2 777-1, 71498-2, 50676-3 ####[facility]NACLIA [id number] [place] [id number] [place] Creatinine and Glomerular filtration rate.predicted panel (S/P/Bld) 67 mL/min/1.73m??? Normal >=60 [facility] Comment on above: Order Comment: Jaime howell Type: BLOOD SPECIMENOrdering Facility: [facility] Address: [address] [place] [address] Result Comment: Christiane mated Glomerular Filtration Rate (eGFR) is calculated using the 2020 CKD-EPI creatinine equation. This equation utilizes serum creatinine, sex, and age as parameters. The creatinine assay has traceable calibration to isotope dilution-mass spectrometry. Refer to KDIGO guidelines for clinical interpretation. In patients with unstable renal function, e.g. those with acute kidney injury, the eGFR may not accurately reflect actual GFR. Performed By: #### 2 777-1, 41494-7, ####[facility] LABORATORYCLIA [id number] [place] [id number] [place] Glucose [Mass/Vol] 121 mg/dL High 74-99 [facility] Comment on above: Order Comment: Jaime howell Type: BLOOD SPECIMENOrdering Facility: [facility] Address: [address] [place] [address] Result Comment: The [place] Diabetes [employer] (ADA) provides guidance for cutoff values for fasting glucose and random glucose. The ADA defines fasting as no caloric intake for at least 8 hours. Fasting plasma glucose results between 100 to 125 mg/dL indicate increased risk for diabetes (prediabetes). Fasting plasma glucose results greater than or equal to 126 mg/dL meet the criteria for diagnosis of diabetes. In the absence of unequivocal hyperglycemia, results should be confirmed by repeat testing. In a patient with classic symptoms of hyperglycemia or hyperglycemic crisis, random plasma glucose results greater than or equal to 200 mg/dL meet the criteria for diagnosis of diabetes. Reference: Standards of Medical Care in Diabetes 2016, [place] [employer]. Diabetes Care. 2016.39(Suppl 1). Performed By: #### 2 777-1, , ####[facility] LABORATORYCLIA [id number] [place] [address] [place] Potassium [Moles/Vol] 4.0 mmol/L Normal 3.7-5.1 [facility] Comment on above: Order Comment: Speci men Type: BLOOD SPECIMENOrdering Facility: [facility] Address: [address] [place] [address] Performed By: #### 2 777-1, , 08057-6 ####[facility] LABORATORYCLIA [id number] [place] [address] [place] Sodium [Moles/Vol] 137 mmol/L Normal 136-144 [facility] Comment on above: Order Comment: Speci men Type: BLOOD SPECIMENOrdering Facility: [facility] Address: [address] [place] [address] Performed By: #### 2 777-1, , ####[facility] LABORATORYCLIA [id number] [address] [place] Urea nitrogen [Mass/Vol] 30 mg/dL High 9-24 [facility] Comment on above: Order Comment: Speci men Type: BLOOD SPECIMENOrdering Facility: [facility] Address: [address] [place] [address] Performed By: #### 2 777-1, , 47007-8 ####[facility] LABORATORYCLIA [id number] [address] [place] CBC W Auto Differential pane l (Bld)on 04-02-2023 Basophils (Bld) [#/Vol] 0.03 10*3/uL Normal <0.11 [facility] Comment on above: Order Comment: Speci men Type: BLOOD SPECIMENOrdering Facility: [facility] Address: [address] [place] [address] Performed By: #### 5 7021-8 ####[facility] LABORATORYCLIA [id number] [address] [place] Basophils/100 WBC (Bld) 0.3 % Normal A [facility] Comment on above: Order Comment: Speci men Type: BLOOD SPECIMENOrdering Facility: [facility] Address: [address] [place] [address] Performed By: #### 5 7021-8 ####[facility]ORATORYCLIA [id number] [address] OF [facility] Differential cell count method Nom (Bld) Auto Normal [facility] Comment on above: Order Comment: Speci men Type: BLOOD SPECIMENOrdering Facility: [facility] Address: [address] [place] [address] Performed By: #### 5 7021-8 ####[facility] LABORATORYCLIA [id number] [address] [place] Eosinophils (Bld) [#/Vol] 0.11 10*3/uL Normal <0.46 [facility] Comment on above: Order Comment: Speci men Type: BLOOD SPECIMENOrdering Facility: [facility] Address: [address] [place] [address] Performed By: #### 5 7021-8 ####[facility] LABORATORYCLIA [id number] [address] Eosinophils/100 WBC (Bld) 1.2 % Normal [facility] Comment on above: Order Comment: Speci men Type: BLOOD SPECIMENOrdering Facility: [facility] Address: [address] [place] [address] Performed By: #### 5 7021-8 ####[facility]ATORYCLIA [id number] [address] [place] Erythrocyte distribution width (RBC) [Ratio] 14.7 % Normal 11.5-15.0 [facility] Comment on above: Order Comment: Speci men Type: BLOOD SPECIMENOrdering Facility: [facility] Address: [address] [place] [address] Performed By: #### 5 7021-8 ####[facility]ATORYCLIA [id number] [address] [place] Hematocrit (Bld) [Volume fraction] 27.8 % Low 39.0-51.0 [facility] Comment on above: Order Comment: Speci men Type: BLOOD SPECIMENOrdering Facility: [facility] Address: [address] [place] [address] Performed By: #### 5 7021-8 ####[facility] LABORATORYCLIA [id number] [place] [address] [place] Hemoglobin (Bld) [Mass/Vol] 9.3 g/dL Low 13.0-17.0 [facility] Comment on above: Order Comment: Speci men Type: BLOOD SPECIMENOrdering Facility: [facility] Address: [address] [place] [address] Performed By: #### 5 7021-8 ####[facility] LABORATORYCLIA [id number] [address] [place] Immature granulocytes (Bld) [#/Vol] 10*3/uL Normal <0.10 [facility] Comment on above: Order Comment: Speci men Type: BLOOD SPECIMENOrdering Facility: [facility] Address: [address] [place] [address] Performed By: #### 5 7021-8 ####[facility] LABORATORYCLIA [id number] [address] [place] Immature granulocytes/100 WBC (Bld) 0.2 % Normal [facility] Comment on above: Order Comment: Speci men Type: BLOOD SPECIMENOrdering Facility: [facility] Address: [address] [place] [address] Performed By: #### 5 7021-8 ####[facility] LABORATORYCLIA [id number] [place] [address] [place] Lymphocytes (Bld) [#/Vol] 2.28 10*3/uL Normal 1.00-4.00 [facility] Comment on above: Order Comment: Speci men Type: BLOOD SPECIMENOrdering Facility: [facility] Address: [address] [place] [address] Performed By: #### 5 7021-8 ####[facility] LABORATORYCLIA [id number] [address] Lymphocytes/100 WBC (Bld) 24.5 % Normal [facility] Comment on above: Order Comment: Speci men Type: BLOOD SPECIMENOrdering Facility: [facility] Address: [address] [place] [address] Performed By: #### 5 7021-8 ####[facility] LABORATORYCLIA [id number] [address] OF [facility] MCH (RBC) [Entitic mass] 30.3 pg Normal 26.0-34.0 [facility] Comment on above: Order Comment: Speci men Type: BLOOD SPECIMENOrdering Facility: [facility] Address: [address] [place] [address] Performed By: #### 5 7021-8 ####[facility] LABORATORYCLIA [id number] [address] MCHC (RBC) [Mass/Vol] 33.5 g/dL Normal 30.5-36.0 [facility] Comment on above: Order Comment: Speci men Type: BLOOD SPECIMENOrdering Facility: [facility] Address: [address] [place] [address] Performed By: #### 5 7021-8 ####[facility] LABORATORYCLIA [id number] [address] [place] MCV (RBC) [Entitic vol] 90.6 fL Normal 80.0-100.0 [facility] Comment on above: Order Comment: Speci men Type: BLOOD SPECIMENOrdering Facility: [facility] Address: [address] [place] [address] Performed By: #### 5 7021-8 ####[facility] LABORATORYCLIA [id number] [address] Monocytes (Bld) [#/Vol] 1.28 10*3/uL High <0.87 [facility] Comment on above: Order Comment: Speci men Type: BLOOD SPECIMENOrdering Facility: [facility] Address: [address] [place] [address] Performed By: #### 5 7021-8 ####[facility] LABORATORYCLIA [id number] [address] [place] Monocytes/100 WBC (Bld) 13.8 % Normal A [facility] Comment on above: Order Comment: Speci men Type: BLOOD SPECIMENOrdering Facility: [facility] Address: [address] [place] [address] Performed By: #### 5 7021-8 ####[facility] LABORATORYCLIA [id number] [address] [place] Neutrophils (Bld) [#/Vol] 5.57 10*3/uL Normal 1.45-7.50 [facility] Comment on above: Order Comment: Speci men Type: BLOOD SPECIMENOrdering Facility: [facility] Address: [address] [place] [address] Performed By: #### 5 7021-8 ####[facility]ORYCLIA [id number] [address] [place] Neutrophils/100 WBC (Bld) 60.0 % Normal [facility] Comment on above: Order Comment: Speci men Type: BLOOD SPECIMENOrdering Facility: [facility] Address: [address] [place] [address] Performed By: #### 5 7021-8 ####[facility]ORATORYCLIA [id number] [place] [address] [place] Nucleated RBC (Bld) [#/Vol] 10*3/uL Normal <0.01 [facility] Comment on above: Order Comment: Speci men Type: BLOOD SPECIMENOrdering Facility: [facility] Address: [address] [place] [address] Performed By: #### 5 7021-8 ####[facility]ORATORYCLIA [id number] [place] [address] [place] Nucleated RBC/100 WBC (Bld) [Ratio] 0.0 /100 WBC Normal [facility] Comment on above: Order Comment: Speci men Type: BLOOD SPECIMENOrdering Facility: [facility] Address: [facility] [place] [address] Performed By: #### 5 7021-8 ####[facility] LABORATORYCLIA [id number] [place] [address] [place] Platelet mean volume (Bld) [Entitic vol] 9.8 fL Normal 9.0-12.7 [facility] Comment on above: Order Comment: Speci men Type: BLOOD SPECIMENOrdering Facility: [facility] Address: [address] [place] [address] Performed By: #### 5 7021-8 ####[facility] LABORATORYCLIA [id number] [place] [address] [place] Platelets (Bld) [#/Vol] 144 10*3/uL Low 150-400 [facility] Comment on above: Order Comment: Speci men Type: BLOOD SPECIMENOrdering Facility: [facility] Address: [address] [place] [address] Performed By: #### 5 7021-8 ####[facility] LABORATORYCLIA [id number] [place] [address] [place] RBC (Bld) [#/Vol] 3.07 10*6/uL Low 4.20-6.00 [facility] Comment on above: Order Comment: Speci men Type: BLOOD SPECIMENOrdering Facility: [facility] Address: [address] [place] [address] Performed By: #### 5 7021-8 ####[facility] LABORATORYCLIA [id number] [place] [address] [place] WBC (Bld) [#/Vol] 9.29 10*3/uL Normal 3.70-11.00 [facility] Comment on above: Order Comment: Speci men Type: BLOOD SPECIMENOrdering Facility: [facility] Address: [address] [place] [address] Performed By: #### 5 7021-8 ####[facility] LABORATORYCLIA [id number] [address] CBC panel Auto (Bld)on 04-02 Erythrocyte distribution width (RBC) [Ratio] 14.7 % Normal 11.5-15.0 [facility] Comment on above: Order Comment: Speci men Type: BLOOD SPECIMENOrdering Facility: [facility] Address: [address] [place] [address] Performed By: #### 5 8410-2 ####[facility] LABORATORYCLIA [id number] [address] Hematocrit (Bld) [Volume fraction] 29.1 % Low 39.0-51.0 [facility] Comment on above: Order Comment: Speci men Type: BLOOD SPECIMENOrdering Facility: [facility] Address: [address] [place] [address] Performed By: #### 5 8410-2 ####[facility] LABORATORYCLIA [id number] [address] Hemoglobin (Bld) [Mass/Vol] 9.4 g/dL Low 13.0-17.0 [facility] Comment on above: Order Comment: Speci men Type: BLOOD SPECIMENOrdering Facility: [facility] Address: [address] [place] [address] Performed By: #### 5 8410-2 ####[facility] LABORATORYCLIA [id number] [address] MCH (RBC) [Entitic mass] 29.7 pg Normal 26.0-34.0 [facility] Comment on above: Order Comment: Speci men Type: BLOOD SPECIMENOrdering Facility: [facility] Address: [address] [place] [address] Performed By: #### 5 8410-2 ####[facility] LABORATORYCLIA [id number] [address] [place] MCHC (RBC) [Mass/Vol] 32.3 g/dL Normal 30.5-36.0 [facility] Comment on above: Order Comment: Speci men Type: BLOOD SPECIMENOrdering Facility: [facility] Address: [address] [place] [address] Performed By: #### 5 8410-2 ####[facility] LABORATORYCLIA [id number] [address] MCV (RBC) [Entitic vol] 92.1 fL Normal 80.0-100.0 [facility] Comment on above: Order Comment: Speci men Type: BLOOD SPECIMENOrdering Facility: [facility] Address: [address] [place] [address] Performed By: #### 5 8410-2 ####[facility] LABORATORYCLIA [id number] [address] Nucleated RBC (Bld) [#/Vol] 10*3/uL Normal <0.01 [facility] Comment on above: Order Comment: Speci men Type: BLOOD SPECIMENOrdering Facility: [facility] Address: [address] [place] [address] Performed By: #### 5 8410-2 ####[facility] LABORATORYCLIA [id number] [address] Platelet mean volume (Bld) [Entitic vol] 9.9 fL Normal 9.0-12.7 [facility] Comment on above: Order Comment: Speci men Type: BLOOD SPECIMENOrdering Facility: [facility] Address: [address] [place] [address] Performed By: #### 5 8410-2 ####[facility] LABORATORYCLIA [id number] [address] Platelets (Bld) [#/Vol] 159 10*3/uL Normal 150-400 [facility] Comment on above: Order Comment: Speci men Type: BLOOD SPECIMENOrdering Facility: [facility] Address: [address] [place] [address] Performed By: #### 5 8410-2 ####[facility] LABORATORYCLIA [id number] [address] RBC (Bld) [#/Vol] 3.16 10*6/uL Low 4.20-6.00 [facility] Comment on above: Order Comment: Speci men Type: BLOOD SPECIMENOrdering Facility: [facility] Address: [address] [place] [address] Performed By: #### 5 8410-2 ####[facility] LABORATORYCLIA [id number] [address] OF [facility] WBC (Bld) [#/Vol] 11.01 10*3/uL High 3.70-11.00 [facility] Comment on above: Order Comment: Speci men Type: BLOOD SPECIMENOrdering Facility: [facility] Address: [address] [place] [address] Performed By: #### 5 8410-2 ####[facility] LABORATORYCLIA [id number] [address] CK SerPl-cCncon 04-02-2023 CK [Catalytic activity/Vol] 64 U/L Normal 51-298 [facility] Comment on above: Order Comment: Speci men Type: BLOOD SPECIMENOrdering Facility: [facility] Address: [address] [place] [address] Performed By: #### 2 157-6 ####[facility] LABORATORYCLIA [id number] [address] CONSULT PROGon 04-02-2023 CONSULT PROG HNO ID: [id number] Author: ANNA VALENTIN MD Service: General Surgery Author Type: Physician Type: Consult Progress Note Filed: 04/02/2023 14:47 Note Text: Trauma Surgery Progress Note SERVICE DATE: 04/02/2023 Trauma Service Pager: For questions or concerns Mon-Fri 6a-5p please page [phone]. After 5pm and on Weekends and Holidays, please page [phone] if in ICU or [phone] if on RNF. SUBJECTIVE: NAEO. This am patient states that he is feeling better and his pain is better controlled. Denies any other issues. Able to pull 1L on his IS pretty consistently. OBJECTIVE: Vitals: Temp (24hrs), Av.6 ?C (97.8 ?F), Min:36.5 ?C (97.7 ?F), Max:36.6 ?C (97.9 ?F) BP 117/53 Pulse 60 Temp 36.5 ?C (97.7 ?F) Resp 17 Ht 177.8 cm (5' 10) Wt 83.8 kg (184 lb 11.9 oz) SpO2 98% BMI 26.51 kg/m? O2 Therapy: Nasal Cannula IANDO: Date 04/01/23699 - 04/02/23 0604/02/23699 - 04/03/23 0659 Shift 0690-7419 4024-2626 6617-5135 24 Hour Total 6822-3116 2056-7725 0648-0129 24 Hour Total INTAKE IV 250 500 750 Volume (mL) (lactated ringers 500 mL iv bolus) 500 500 Volume (mL) (sodium phosphate 45 mmol in D5W 250 mL) 250 250 Shift Total 250 500 750 OUTPUT Urine 200 200 400 Output ( External Collection Device 04/01/23 1600 [facility]) 200 200 400 Chest Tube 850 80 190 1120 Chest Tube Output (Chest Tube 04/01/23 1115 [facility] Right Lateral Pleural 28 Fr Tube #1) 850 80 190 1120 Shift Total 850 168 359 2976 Weight (kg) 83 83 83.8 83.8 83.8 83.8 83.8 83.8 MEDICATIONS: Current Facility-Administered Medications Medication Dose Route Frequency magnesium sulfate in sterile water 4 g in 100 mL iv piggyback 4 g INTRAVENOUS ONCE carBAMazepine 200 mg tab(s) (TEGretol) 200 mg ORAL TID atorvastatin 40 mg tab(s) (LIPITOR) 40 mg ORAL AT BEDTIME albuterol HFA 90 mcg/actuation 1 Puff (PROVENTIL HFA, VENTOLIN HFA) 1 Puff INHALATION q 4 H PRN levothyroxine 25 mcg tab(s) (SYNTHROID) 25 mcg ORAL BEFORE BREAKFAST DAILY NaCl 0.9% iv flush bag 20 mL INTRAVENOUS PRN acetaminophen 975 mg tab(s) (TYLENOL) 975 mg ORAL/FEEDING TUBE QID oxyCODONE IR 5-10 mg tab(s) (ROXICODONE) 5-10 mg ORAL/FEEDING TUBE q 6 H PRN ipratropium-albuterol 3 mL nebulizer solution (DUONEB) 3 mL INHALATION q 6 H PRN ondansetron 4 mg tab(s) (ZOFRAN) 4 mg ORAL q 6 H PRN Or ondansetron (PF) 4 mg injection (ZOFRAN) 4 mg INTRAVENOUS q 6 H PRN lidocaine 4 % 1 Patch (SALONPAS) 1 Patch TRANSDERMAL DAILY And lidocaine patch - REMOVE OTHER AT BEDTIME And lidocaine - VERIFY PATCH OTHER q 8 H pregabalin 75 mg cap(s) (LYRICA) 75 mg ORAL BID fentaNYL 50 mcg/mL 50 mcg injection (SUBLIMAZE) 50 mcg INTRAVENOUS q 1 H PRN dilTIAZem CD 120 mg cap(s) (CARDIZEM CD, CARTIA XT) 120 mg ORAL DAILY Labs: Recent Labs 04/02/23 0343 04/01/23 1400 04/01/23 0842 NA 137 -- 139 K 4.0 -- 4.0 CHLOR 100 -- 101 CO2 25 -- 26 BUN 30* -- 18 CREAT 1.10 -- 0.66* GLUC 121* -- 137* ANION 12 -- 12 CA 9.1 -- 10.0 MG 1.9 -- 2.1 P 6.8* -- 3.3 WBC 11.01* 10.87 8.94 HB 9.4* 11.4* 11.8* HCT 29.1* 35.1* 36.7* PLT 159 151 168 PHYSICAL EXAM: Genl: NAD. Resting in bed comfortably. HEENT: EOMI. Glasses on. PERRLA. Resp: Poor excursion. Good saturation. Pulls 1 L on IS. R. CT with sanguinous output noted. Has a total of 900cc's out initially on CT placement from his hemothorax. Has had a total of 1.6 L out and is mostly SS now. No pouring of sanguinous output noted. CVS: RRR as above. 2+ RA, DP, PT pulses bilaterally. GI: Abdomen is soft, non-tender, non-distended. No guarding or peritoneal signs. MSK: No gross deformities. No clubbing, cyanosis or edema. Normal AROM x 4. Skin: Warm and dry. Not jaundiced. Neuro: AANDOx3. Strength and sensation grossly intact in all extremities. CARMONA. GCS15. Psych: Normal mood. Normal affect. Appropriate insight into current situation. ASSESSMENT AND PLAN: Assessment Active Hospital Problems Diagnosis Date Noted Trauma 04/01/2023 Assessment: 83 year old male s/p GLF while using wheelbarrow Imaging performed: CTHNCAP (without IV con) Traumatic Injuries: R. Lateral 7-9th rib fractures Hemothorax Pulmonary contusions Operations/Procedures : 1. R. 28-Fr chest tube Care Plan: R. Lateral 7-9th rib fx Hemothorax Pulmonary contusions Monitor in SICU given no FEIBA and continued slowing of ABLA (see #2) Multimodal pain control Aggressive pulmonary hygiene Okay for diet Needs IS, Acapella, and duonebs ABLA Monitor vitals closely No need for blood products at this time Will likely level out Transfuse only for signs/symptoms of ABLA Current diet order: DIET HEART HEALTHY Pain regimen: Per SICU Bowel regimen: Per SICU Labs: Daily labs PPX: DVT: SCD's. Eliquis held. Ulcer: Not needed. Vit D level if > 65 yo: Pending Consulted Services: SICU Dispo Planning: PT/OT recs pending. Case management following. Inc (more content not included)... Normal [facility] CONSULT PROG HNO ID: [id number] Author: RICHMOND NOVAK MD Service: General Surgery Author Type: Physician Type: Consult Progress Note Filed: 04/02/2023 10:23 Note Text: Surgical Intensive Care Unit Consult Note SERVICE DATE: 04/02/2023 SERVICE TIME: 7:08 AM REASON FOR CONSULT: rib fx, hemothorax REQUESTING PHYSICIAN: ED Subjective Pt seen in the AM. Patient respiratory status improved from yesterday. Able to pull 1000ml on IS. Patient has R CT in place with 1500cc output in the last 24 hrs. Patient HDS on exam. Bradycardic last night in A-fib with slow ventricular rate. CVICU was consulted. FUNCTIONAL STATUS: Independent PAST MEDICAL HISTORY Diagnosis Date CAD (coronary artery disease) HTN (hypertension) 08/12/2013 [place] neurology Tremor Trigeminal neuralgia PAST SURGICAL HISTORY Procedure Laterality Date CABG (3) VEIN GRAFTS AND ARTERIAL GRAFT(S) 04/20/2022 (RICHMOND-LAD, SVG-OM, SVG-PDA PAST SURGICAL HISTORY OF chain saw laceration PAST SURGICAL HISTORY OF stereotactic radiosurgery for left sided trigeminal neuralgia and meningioma PROSTATECTOMY, SIMPLE, BENIGN 08/18/2013 Dr. Vasquez TONSILLECTOMY PRIMARY/SECONDARY Tonsillectomy FAMILY HISTORY Problem Relation Age of Onset None Mother None Father Social History Tobacco Use Smoking status: Never Smokeless tobacco: Never Vaping Use Vaping Use: Never used Substance Use Topics Alcohol use: No Drug use: No ELIQUIS 5 mg tab(s), Take 1 tablet by mouth every 12 hours., Disp: , Rfl: lisinopril (ZESTRIL) 40 mg tablet, Take 1 tablet by mouth every afternoon., Disp: , Rfl: acetaminophen (TYLENOL) 500 mg tablet, Take 500 mg by mouth as needed for pain., Disp: , Rfl: dilTIAZem CD (CARDIZEM CD, CARTIA XT) 240 mg 24 hr capsule, Take 1 capsule by mouth once daily. Hold for heart rate <60, SBP <100, Disp: 30 capsule, Rfl: 2 atorvastatin (LIPITOR) 40 mg tablet, Take 1 tablet by mouth daily at bedtime., Disp: 90 tablet, Rfl: 0 clopidogrel (PLAVIX) 75 mg tablet, Take 1 tablet by mouth once daily., Disp: 90 tablet, Rfl: 3 metoprolol tartrate, short acting, (LOPRESSOR) 50 mg tablet, Take 1 tablet by mouth every 8 hours. Hold for heart rate <60, SBP <100 (Patient taking differently: Take 50 mg by mouth two times a day. Hold for heart rate <60, SBP <100), Disp: 90 tablet, Rfl: 0 albuterol HFA (PROVENTIL HFA, VENTOLIN HFA) 90 mcg/actuation inhaler, Inhale 1 Puff as instructed every 4 hours as needed for wheezing/shortness of breath., Disp: , Rfl: levothyroxine 50 mcg cap, Take 50 mcg by mouth daily before breakfast., Disp: , Rfl: carBAMazepine (TEGRETOL) 200 mg tablet, Take 1 tablet by mouth three times daily., Disp: 270 tablet, Rfl: 3 Current Facility-Administered Medications Medication Dose Route Frequency carBAMazepine 200 mg tab(s) (TEGretol) 200 mg ORAL TID atorvastatin 40 mg tab(s) (LIPITOR) 40 mg ORAL AT BEDTIME albuterol HFA 90 mcg/actuation 1 Puff (PROVENTIL HFA, VENTOLIN HFA) 1 Puff INHALATION q 4 H PRN levothyroxine 25 mcg tab(s) (SYNTHROID) 25 mcg ORAL BEFORE BREAKFAST DAILY NaCl 0.9% iv flush bag 20 mL INTRAVENOUS PRN acetaminophen 975 mg tab(s) (TYLENOL) 975 mg ORAL/FEEDING TUBE QID oxyCODONE IR 5-10 mg tab(s) (ROXICODONE) 5-10 mg ORAL/FEEDING TUBE q 6 H PRN ipratropium-albuterol 3 mL nebulizer solution (DUONEB) 3 mL INHALATION q 6 H PRN ondansetron 4 mg tab(s) (ZOFRAN) 4 mg ORAL q 6 H PRN Or ondansetron (PF) 4 mg injection (ZOFRAN) 4 mg INTRAVENOUS q 6 H PRN lidocaine 4 % 1 Patch (SALONPAS) 1 Patch TRANSDERMAL DAILY And lidocaine patch - REMOVE OTHER AT BEDTIME And lidocaine - VERIFY PATCH OTHER q 8 H pregabalin 75 mg cap(s) (LYRICA) 75 mg ORAL BID fentaNYL 50 mcg/mL 50 mcg injection (SUBLIMAZE) 50 mcg INTRAVENOUS q 1 H PRN dilTIAZem CD 120 mg cap(s) (CARDIZEM CD, CARTIA XT) 120 mg ORAL DAILY magnesium sulfate in sterile water 4 g in 100 mL iv piggyback 4 g INTRAVENOUS ONCE Allergies As of Date: 04/01/2023 (No Known Allergies) Fully Assessed 04/01/2023 Objective Physical exam BP: 117/53 Temp: 36.5 ?C (97.7 ?F) Temp src: Oral Pulse: 60 Resp: 17 O2 Therapy: Nasal Cannula SpO2: 98 % General: Sitting upright drinking morning coffee, in no acute distress. Neuro: AANDOx3. No gross motor or sensory deficits. HEENT: NC, AT Cards: HR wnl today Am. BP wnl. Patient stable on exam. Resp: BL equal chest rise. No accessory muscle use on exam. R CT on -20CS with 1500cc output. ABD: Soft, non-tender, non-distended. Extremities: No deformities on exam. Psych: Appropriate affect. DATA: Labs: Recent Labs 04/02/23 0343 04/01/23 1400 04/01/23 0842 NA 137 -- 139 K 4.0 -- 4.0 CHLOR 100 -- 101 CO2 25 -- 26 BUN 30* -- 18 CREAT 1.10 -- 0.66* GLUC 121* -- 137* ANION 12 -- 12 CA 9.1 -- 10.0 MG 1.9 -- 2.1 P 6.8* -- 3.3 WBC 11.01* 10.87 8.94 HB 9.4* 11.4* 11.8* HCT 29.1* 35.1* 36.7* PLT 159 151 168 Diagnostic tests reviewed for today's (more content not included)... Normal [facility] CREATININE BLDon 04-02-2023 Creatinine [Mass/Vol] 1.42 mg/dL High 0.73-1.22 [facility] Comment on above: Order Comment: Speci men Type: BLOOD SPECIMENOrdering Facility: [facility] Address: [address] [place] [address] Performed By: #### 2 951-2, CRET1 ####[facility] INDIANACLIA [id number] [address] Creatinine and Glomerular filtration rate.predicted panel (S/P/Bld) 49 mL/min/1.73m??? Low >=60 [facility] Comment on above: Order Comment: Speci men Type: BLOOD SPECIMENOrdering Facility: [facility] Address: [address] [place] [address] Result Comment: Christiane mated Glomerular Filtration Rate (eGFR) is calculated using the 2020 CKD-EPI creatinine equation. This equation utilizes serum creatinine, sex, and age as parameters. The creatinine assay has traceable calibration to isotope dilution-mass spectrometry. Refer to KDIGO guidelines for clinical interpretation. In patients with unstable renal function, e.g. those with acute kidney injury, the eGFR may not accurately reflect actual GFR. Performed By: #### 2 951-2, CRET1 ####[facility] LABORATORYCLIA [id number] [address] OF [facility] CT BRAIN WO IVCONon 04-02-[address] BRAIN WO IVCON * * *Final Report* * * DATE OF EXAM: Apr 02 2023 10:12AM [facility] 0504 - CT BRAIN WO IVCON / PROCEDURE REASON: Head trauma, moderate-severe * * * * Physician Interpretation * * * * EXAMINATION: CT BRAIN WO IVCON CLINICAL HISTORY: Recent trauma, anticoagulated TECHNIQUE: Serial axial images without IV contrast were obtained from the vertex to the foramen magnum. MQ: [id number] CT Radiation dose: Integrated Dose-Length Product (DLP) for this visit = 875 mGy*cm CT Dose Reduction Employed: Automated exposure control (AEC) COMPARISON: 03/20/2019 MRI brain RESULT: Post-operative change: None. Acute change: No evidence of an acute infarct or other acute parenchymal process. Hemorrhage: No evidence of acute intracranial hemorrhage. ECASS hemorrhagic transformation score: Not Applicable Mass Lesion / Mass Effect: There is no evidence of an intracranial mass or extraaxial fluid collection. No significant mass effect. Chronic change: Moderate degree of arterial calcifications distal intradural vertebral as well as distal intracranial internal carotid arteries. 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 Parenchyma: Mild parenchymal volume loss. Ventricles: The ventricles are within normal limits of size and configuration for age and central atrophy. Paranasal sinuses and skull base: The visualized paranasal sinuses are grossly clear. The skull base and imaged soft tissues are unremarkable. 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 Moderate degree of arterial calcifications distal intradural vertebral as well as distal intracranial internal carotid arteries. Sourcing Intern: [facility] Transcribe Date/Time: Apr 02 2023 10:39A Dictated by : PAYTON AMOR MD This examination was interpreted and the report reviewed and electronically signed by: PAYTON AMOR MD on Apr 02 2023 10:48AM EST [id number] N Normal [facility] Calcium.ionized [Moles/Vol]o n 04-02-2023 Calcium.ionized (BldV) [Mass/Vol] 1.22 mmol/L Normal 1.08-1.30 [facility] Comment on above: Order Comment: Speci men Type: BLOOD SPECIMENOrdering Facility: [facility] Address: [address] [place] [address] Performed By: #### 1 995-0 ####[facility] LABORATORYCLIA [id number] [place] [address] [place] Calcium.ionized adjusted to pH 7.4 (Bld) [Moles/Vol] 1.18 mmol/L Normal 1.08-1.30 [facility] Comment on above: Order Comment: Speci men Type: BLOOD SPECIMENOrdering Facility: [facility] Address: [address] [place] [address] Performed By: #### 1 995-0 ####[facility]ITAL[facility] [id number] [place] [address] [place] Creatinine Unsp time (U) [Ma ss/Vol]on 04-02-2023 Creatinine (U) [Mass/Vol] 89.0 mg/dL Normal 46.8-314.5 [facility] Comment on above: Order Comment: Speci men Type: URINE SPECIMENOrdering Facility: [facility] Address: [address] [place] [address] Performed By: #### 3 5678-2, 91892-7 ####[facility]ITALIA [id number] [place] [address] [place] Magnesium SerPl-mCncon 04-02 Magnesium [Mass/Vol] 1.9 mg/dL Normal 1.7-2.3 [facility] Comment on above: Order Comment: Speci men Type: BLOOD SPECIMENOrdering Facility: [facility] Address: [address] [place] [address] Performed By: #### 2 777-1, 11834-9, 80592-1 ####[facility]ITALIA [id number] [place] [address] [place] Osmolality Uron 04-02-2023 Osmolality (U) [Osmolality] 550 mosm/kg Normal 50-1200 [facility] Comment on above: Order Comment: Speci men Type: URINE SPECIMENOrdering Facility: [facility] Address: [address] [place] [address] Performed By: #### 2 695-5 ####[facility] LABCLIA [id number] [place] [id number] [id number] [place] Phosphate SerPl-mCncon 04-02 Phosphate [Mass/Vol] 6.8 mg/dL High 2.7-4.8 [facility] Comment on above: Order Comment: Speci men Type: BLOOD SPECIMENOrdering Facility: [facility] Address: [address] [place] [address] Performed By: #### 2 777-1, 67137-4, 25536-4 ####[facility] LABORATORYCLIA [id number] [place] [address] [place] Sodium ?Tm Ur-sCncon 024 Sodium Unsp time (U) [Moles/Vol] 108 mmol/L Normal 14-216 [facility] Comment on above: Order Comment: Speci men Type: URINE SPECIMENOrdering Facility: [facility] Address: [address] [place] [address] Performed By: #### 3 5678-2, 08202-8 ####[facility] LABORATORYCLIA [id number] [place] [address] [place] Sodium SerPl-sCncon 04-02-19 24 Sodium [Moles/Vol] 135 mmol/L Low 136-144 [facility] Comment on above: Order Comment: Speci men Type: BLOOD SPECIMENOrdering Facility: [facility] Address: [address] [place] [address] Performed By: #### 2 951-2, CRET1 ####[facility] LABORATORYCLIA [id number] [place] [address] [place] T3Free SerPl-mCncon 04-02-19 24 Free T3 [Mass/Vol] 1.4 pg/mL Low 2.3-4.1 [facility] Comment on above: Order Comment: Speci men Type: BLOOD SPECIMENOrdering Facility: [facility] Address: [address] [place] [address] Performed By: #### 3 024-7, 3051-0, 3016-3 ####[facility] LABORATORYCLIA [id number] [address] [place] T4 Free SerPl-mCncon 024 Free T4 [Mass/Vol] 0.8 ng/dL Low 0.9-1.7 [facility] Comment on above: Order Comment: Speci men Type: BLOOD SPECIMENOrdering Facility: [facility] Address: [address] [place] [address] Performed By: #### 3 024-7, 3051-0, 3016-3 ####[facility] LABORATORYCLIA [id number] [address] [place] TSH SerPl-aCncon 04-02-2023 TSH Qn 2.320 m[IU]/L Normal 0.270-4.200 [facility] Comment on above: Order Comment: Speci men Type: BLOOD SPECIMENOrdering Facility: [facility] Address: [address] [place] [address] Performed By: #### 3 024-7, 305-0, 6-3 ####[facility] LABORATORYCLIA [id number] [address] URINALYSIS, REFLEX MICROSCOP ICon 04-02-2023 Bilirubin Ql (U) Negative Normal Negative [facility] Comment on above: Order Comment: Speci men Type: URINE SPECIMENOrdering Facility: [facility] Address: [address] [place] [address] Performed By: #### L [id number] ####[facility] LABORATORYCLIA [id number] [address] [place] Clarity (Unsp spec) Turbid Abnormal Clear [facility] Comment on above: Order Comment: Speci men Type: URINE SPECIMENOrdering Facility: [facility] Address: [address] [place] [address] Performed By: #### L [id number] ####[facility] LABORATORYCLIA [id number] [address] Color (U) Yellow Normal yellow [facility] Comment on above: Order Comment: Speci men Type: URINE SPECIMENOrdering Facility: [facility] Address: [address] [place] [address] Performed By: #### L [id number] ####[facility] LABORATORYCLIA [id number] [address] Glucose Test strip (U) [Mass/Vol] Negative Normal Trace, Negative [facility] Comment on above: Order Comment: Speci men Type: URINE SPECIMENOrdering Facility: [facility] Address: [address] [place] [address] Performed By: #### L [id number] ####[facility] LABORATORYCLIA [id number] [address] [place] Hemoglobin Ql (U) Trace Normal Negative, Trace [facility] Comment on above: Order Comment: Speci men Type: URINE SPECIMENOrdering Facility: [facility] Address: [address] [place] [address] Performed By: #### L [id number] ####[facility] LABORATORYCLIA [id number] [address] Hyaline casts (Urine sed) [#/Area] 1-3 /LPF Abnormal 0 /LPF [facility] Comment on above: Order Comment: Speci men Type: URINE SPECIMENOrdering Facility: [facility] Address: [address] [place] [address] Performed By: #### L [id number] ####[facility] LABORATORYCLIA [id number] [address] Ketones Ql (U) Negative Normal Negative, Trace [facility] Comment on above: Order Comment: Speci men Type: URINE SPECIMENOrdering Facility: [facility] Address: [address] [place] [address] Performed By: #### L [id number] ####[facility] LABORATORYCLIA [id number] [address] Leukocyte esterase Test strip Ql (U) 500 Tiffanie/uL Abnormal Negative, 25 Tiffanie/uL [facility] Comment on above: Order Comment: Speci men Type: URINE SPECIMENOrdering Facility: [facility] Address: [address] [place] [address] Performed By: #### L [id number] ####[facility] LABORATORYCLIA [id number] [address] STATES [facility] Nitrite Ql (U) Negative Normal Negative [facility] Comment on above: Order Comment: Speci men Type: URINE SPECIMENOrdering Facility: [facility] Address: [address] [place] [address] Performed By: #### L [id number] ####[facility] LABORATORYCLIA [id number] [address] [place] pH (U) 7.5 [pH] Normal 5.0-8.0 [facility] Comment on above: Order Comment: Speci men Type: URINE SPECIMENOrdering Facility: [facility] Address: [address] [place] [address] Performed By: #### L [id number] ####[facility] [id number] [address] Protein (U) [Mass/Vol] 1+ Abnormal Trace , Negative [facility] Comment on above: Order Comment: Speci men Type: URINE SPECIMENOrdering Facility: [facility] Address: [address] [place] [address] Performed By: #### L [id number] ####[facility] LABORATORYCLIA [id number] [address] RBC LM.HPF (Urine sed) [#/Area] 11-25 /HPF Abnormal 0-3 /HPF [facility] Comment on above: Order Comment: Speci men Type: URINE SPECIMENOrdering Facility: [facility] Address: [address] [place] [address] Performed By: #### L [id number] ####[facility] LABORATORYCLIA [id number] [address] Specific gravity (U) [Rel density] 1.020 Normal 1.005-1.030 [facility] Comment on above: Order Comment: Speci men Type: URINE SPECIMENOrdering Facility: [facility] Address: [address] [place] [address] Performed By: #### L [id number] ####[facility] LABORATORYCLIA [id number] [address] Triple phosphate crystals LM.HPF (Urine sed) [#/Area] Few Abnormal None Seen [facility] Comment on above: Order Comment: Speci men Type: URINE SPECIMENOrdering Facility: [facility] Address: [address] [place] [address] Performed By: #### L [id number] ####[facility] LABORATORYCLIA [id number] [address] Urobilinogen Ql (U) Normal Normal Normal [facility] Comment on above: Order Comment: Speci men Type: URINE SPECIMENOrdering Facility: [facility] Address: [address] [place] [address] Performed By: #### L [id number] ####[facility] LABORATORYCLIA [id number] [address] [place] [facility] WBC LM.HPF (Urine sed) [#/Area] /[HPF] Abnormal 0-5 /HPF [facility] Comment on above: Order Comment: Speci men Type: URINE SPECIMENOrdering Facility: [facility] Address: [address] [place] [address] Performed By: #### L [id number] ####[facility] LABORATORYCLIA [id number] [address] [place] XR CHEST 1V FRONTALon 2023 XR CHEST 1V FRONTAL * * *Final Report* * * DATE OF EXAM: Apr 02 2023 6:19AM AKX [id number] - XR CHEST 1V FRONTAL / PROCEDURE REASON: Post-operative/post-p rocedure assessment * * * * Physician Interpretation * * * * EXAMINATION: CHEST RADIOGRAPH (SINGLE VIEW AP OR PA) CLINICAL HISTORY: Post-operative/post-p rocedure assessment, Evaluate tube, line, or lead position MQ: XC1_5 Comparison: 04/01/2023 RESULT: Lines, tubes, and devices: Right-sided chest tube in stable position. Overlying cardiac catheterization technologist leads. Intact median sternotomy wires and sternal plate. Lungs and pleura: Trace right-sided pleural effusion. Minimal patchy diminished aeration of both lung bases. No significant pneumothorax. Cardiomediastinal silhouette: Normal cardiomediastinal silhouette. Other: No significant additional findings. IMPRESSION: Stable appearance of the chest Sourcing Intern: ELIZA Transcribe Date/Time: Apr 02 2023 6:56A Dictated by : RANULFO MORTON MD This examination was interpreted and the report reviewed and electronically signed by: RANULFO MORTON MD on Apr 02 2023 6:58AM EST [id number] Normal [facility] Absolute lymphocyte countOrd ered By: Rayray Wiggins on 04-01-2023 Lymphocytes Auto (Unsp spec) [#/Vol] 1.01 10*3/uL 0.83-4.51 [facility] Activated partial thrombopla stin time (aPTT) in platelet poor plasma by coagulation aOrdered By: Rayray Wiggins on 04-01-2023 aPTT Coag (PPP) [Time] 33.3 s 24.1-36.2 [facility] Automated lymphocyte count a s percentage of total leukocytesOrdered By: Rayray Wiggins on 04-01-2023 Lymphocytes/100 WBC Auto (Unsp spec) 11.5 % 19-41 [facility] Basic metabolic 2000 panelon 04-01-2023 Anion gap [Moles/Vol] 12 mmol/L Normal 9-18 [facility] Comment on above: Order Comment: Speci men Type: BLOOD SPECIMENOrdering Facility: [facility] Address: [address] [id number] Performed By: #### 1 9123-9, 37116-1, 2777-1 ####[facility] LABORATORYCLIA [id number] [place] [address] [place] Calcium [Mass/Vol] 10.0 mg/dL Normal 8.5-10.2 [facility] Comment on above: Order Comment: Speci men Type: BLOOD SPECIMENOrdering Facility: [facility] Address: [address] [place] [address] Performed By: #### 1 9123-9, 51483-0, 2777- ####[facility] LABORATORYCLIA [id number] [place] [address] [place] Chloride [Moles/Vol] 101 mmol/L Normal 97-105 [facility] Comment on above: Order Comment: Speci men Type: BLOOD SPECIMENOrdering Facility: [facility] Address: [address] [place] [address] Performed By: #### 1 9123-9, 15460-3, 277- ####[facility] LABORATORYCLIA [id number] [place] [address] [place] CO2 [Moles/Vol] 26 mmol/L Normal 22-30 [facility] Comment on above: Order Comment: Speci men Type: BLOOD SPECIMENOrdering Facility: [facility] Address: [address] [place] [address] Performed By: #### 1 9123-9, 59955-1, 2776- ####[facility] LABORATORYCLIA [id number] [address] [place] Creatinine [Mass/Vol] 0.66 mg/dL Low 0.73-1.22 [facility] Comment on above: Order Comment: Speci men Type: BLOOD SPECIMENOrdering Facility: [facility] Address: [address] [place] [address] Performed By: #### 1 9123-9, 06501-6, 27708-08 ####[facility] LABORATORYCLIA [id number] [address] Creatinine and Glomerular filtration rate.predicted panel (S/P/Bld) 94 mL/min/1.73m??? Normal >=60 [facility] Comment on above: Order Comment: Speci men Type: BLOOD SPECIMENOrdering Facility: [facility] Address: [address] [place] [address] Result Comment: Christiane mated Glomerular Filtration Rate (eGFR) is calculated using the 2020 CKD-EPI creatinine equation. This equation utilizes serum creatinine, sex, and age as parameters. The creatinine assay has traceable calibration to isotope dilution-mass spectrometry. Refer to KDIGO guidelines for clinical interpretation. In patients with unstable renal function, e.g. those with acute kidney injury, the eGFR may not accurately reflect actual GFR. Performed By: #### 1 9123-9, 69782-4, 2776-02 ####[facility] LABORATORYCLIA [id number] [place] [address] [place] Glucose [Mass/Vol] 137 mg/dL High 74-99 [facility] Comment on above: Order Comment: Specavril men Type: BLOOD SPECIMENOrdering Facility: [facility] Address: [address] [place] [address] Result Comment: The [place] Diabetes Association (ADA) provides guidance for cutoff values for fasting glucose and random glucose. The ADA defines fasting as no caloric intake for at least 8 hours. Fasting plasma glucose results between 100 to 125 mg/dL indicate increased risk for diabetes (prediabetes). Fasting plasma glucose results greater than or equal to 126 mg/dL meet the criteria for diagnosis of diabetes. In the absence of unequivocal hyperglycemia, results should be confirmed by repeat testing. In a patient with classic symptoms of hyperglycemia or hyperglycemic crisis, random plasma glucose results greater than or equal to 200 mg/dL meet the criteria for diagnosis of diabetes. Reference: Standards of Medical Care in Diabetes 2016, [place] [employer] Association. Diabetes Care. 2016.39(Suppl 1). Performed By: #### 1 9123-9, 88414-7, 2776-02 ####[facility] LABORATORYCLIA [id number] [place] [id number] [place] Potassium [Moles/Vol] 4.0 mmol/L Normal 3.7-5.1 [facility] Comment on above: Order Comment: Jaime men Type: BLOOD SPECIMENOrdering Facility: [facility] Address: [address] [id number] Performed By: #### 1 9123-9, 81694-3, 2776-02 ####[facility] LABORATORYCLIA [id number] [place] [address] [place] Sodium [Moles/Vol] 139 mmol/L Normal 136-144 [facility] Comment on above: Order Comment: Speci men Type: BLOOD SPECIMENOrdering Facility: [facility] Address: [address] [place] [address] Performed By: #### 1 9123-9, 09419-6, 27771 ####[facility] LABORATORYCLIA [id number] [place] [id number] [place] Urea nitrogen [Mass/Vol] 18 mg/dL Normal 9-24 [facility] Comment on above: Order Comment: Speci men Type: BLOOD SPECIMENOrdering Facility: [facility] Address: [address] [place], [place] [address] Performed By: #### 1 9123-9, 42076-1, 27708-08 ####[facility] LABORATORYCLIA [id number] [place] [id number] [place] Basophil percentageOrdered B y: Rayray Rosemami on 04-01-2023 Basophils/100 WBC (Bld) 0.5 % 0-1 [facility] Chloride [Moles/Vol] 108 mmol/L 98-107 [facility] Eosinophils/100 WBC (Bld) 0.2 % 0-5 [facility] Glucose [Mass/Vol] 161 mg/dL 74-106 [facility] Comment on above: Fasting Glucose resu lt greater than or equal to 126 mg/dL suggests DIABETES MELLITUS per A.D.A. criteria. Hemoglobin (Bld) [Mass/Vol] 11.6 g/dL 13.0-16.5 [facility] Monocytes/100 WBC (Bld) 8.4 % 0-10 [facility] Neutrophils (Bld) [#/Vol] 7.0 10*3/uL 2.0-7.7 [facility] Neutrophils/100 WBC (Bld) 78.9 % 47-70 [facility] Potassium [Moles/Vol] 3.9 mmol/L 3.5-5.1 [facility] Sodium [Moles/Vol] 139 mmol/L 136-145 [facility] WBC (Bld) [#/Vol] 8.8 10*3/uL 4.4-11.0 [facility] CBC panel Auto (Bld)on 04-01 Erythrocyte distribution width (RBC) [Ratio] 14.7 % Normal 11.5-15.0 [facility] Comment on above: Order Comment: Speci men Type: BLOOD SPECIMENOrdering Facility: [facility] Address: [address] [place] [address] Performed By: #### 5 8410-2 ####[facility] LABORATORYCLIA [id number] [address] OF [facility] Hematocrit (Bld) [Volume fraction] 35.1 % Low 39.0-51.0 [facility] Comment on above: Order Comment: Speci men Type: BLOOD SPECIMENOrdering Facility: [facility] Address: [address] [place] [address] Performed By: #### 5 8410-2 ####[facility]ORATORYCLIA [id number] [address] STATES OF [facility] Hemoglobin (Bld) [Mass/Vol] 11.4 g/dL Low 13.0-17.0 [facility] Comment on above: Order Comment: Speci men Type: BLOOD SPECIMENOrdering Facility: [facility] Address: [address] [place] [address] Performed By: #### 5 8410-2 ####[facility]ORATORYCLIA [id number] [address] [place] MCH (RBC) [Entitic mass] 30.2 pg Normal 26.0-34.0 [facility] Comment on above: Order Comment: Speci men Type: BLOOD SPECIMENOrdering Facility: [facility] Address: [address] [place] [address] Performed By: #### 5 8410-2 ####[facility]ORATORYCLIA [id number] [address] [place] MCHC (RBC) [Mass/Vol] 32.5 g/dL Normal 30.5-36.0 [facility] Comment on above: Order Comment: Speci men Type: BLOOD SPECIMENOrdering Facility: [facility] Address: [address] [place] [address] Performed By: #### 5 8410-2 ####[facility] LABORATORYCLIA [id number] [address] MCV (RBC) [Entitic vol] 92.9 fL Normal 80.0-100.0 [facility] Comment on above: Order Comment: Speci men Type: BLOOD SPECIMENOrdering Facility: [facility] Address: [address] [place] [address] Performed By: #### 5 8410-2 ####[facility] LABORATORYCLIA [id number] [address] [place] Nucleated RBC (Bld) [#/Vol] 10*3/uL Normal <0.01 [facility] Comment on above: Order Comment: Speci men Type: BLOOD SPECIMENOrdering Facility: [facility] Address: [address] [place] [address] Performed By: #### 5 8410-2 ####[facility]ORATORYCLIA [id number] [address] Platelet mean volume (Bld) [Entitic vol] 9.4 fL Normal 9.0-12.7 [facility] Comment on above: Order Comment: Speci men Type: BLOOD SPECIMENOrdering Facility: [facility] Address: [address] [place] [address] Performed By: #### 5 8410-2 ####[facility]ORATORYCLIA [id number] [address] Platelets (Bld) [#/Vol] 151 10*3/uL Normal 150-400 [facility] Comment on above: Order Comment: Speci men Type: BLOOD SPECIMENOrdering Facility: [facility] Address: [address] [place] [address] Performed By: #### 5 8410-2 ####[facility] LABORATORYCLIA [id number] [address] [place] RBC (Bld) [#/Vol] 3.78 10*6/uL Low 4.20-6.00 [facility] Comment on above: Order Comment: Speci men Type: BLOOD SPECIMENOrdering Facility: [facility] Address: [address] [place] [address] Performed By: #### 5 8410-2 ####[facility] LABORATORYCLIA [id number] [address] [place] WBC (Bld) [#/Vol] 10.87 10*3/uL Normal 3.70-11.00 [facility] Comment on above: Order Comment: Speci men Type: BLOOD SPECIMENOrdering Facility: [facility] Address: [address] [place] [address] Performed By: #### 5 8410-2 ####[facility] LABORATORYCLIA [id number] [address] [place] Erythrocyte distribution width (RBC) [Ratio] 14.7 % Normal 11.5-15.0 [facility] Comment on above: Order Comment: Speci men Type: BLOOD SPECIMENOrdering Facility: [facility] Address: [address] [place] [address] Performed By: #### 5 8410-2 ####[facility] LABORATORYCLIA [id number] [address] [place] Hematocrit (Bld) [Volume fraction] 36.7 % Low 39.0-51.0 [facility] Comment on above: Order Comment: Speci men Type: BLOOD SPECIMENOrdering Facility: [facility] Address: [address] [place] [address] Performed By: #### 5 8410-2 ####[facility] LABORATORYCLIA [id number] [address] [place] Hemoglobin (Bld) [Mass/Vol] 11.8 g/dL Low 13.0-17.0 [facility] Comment on above: Order Comment: Speci men Type: BLOOD SPECIMENOrdering Facility: [facility] Address: [address] [place] [address] Performed By: #### 5 8410-2 ####[facility]ORATORYCLIA [id number] [address] MCH (RBC) [Entitic mass] 29.8 pg Normal 26.0-34.0 [facility] Comment on above: Order Comment: Speci men Type: BLOOD SPECIMENOrdering Facility: [facility] Address: [address] [place] [address] Performed By: #### 5 8410-2 ####[facility] LABORATORYCLIA [id number] [address] STATES [facility] MCHC (RBC) [Mass/Vol] 32.2 g/dL Normal 30.5-36.0 [facility] Comment on above: Order Comment: Speci men Type: BLOOD SPECIMENOrdering Facility: [facility] Address: [address] [place] [address] Performed By: #### 5 8410-2 ####[facility] LABORATORYCLIA [id number] [address] MCV (RBC) [Entitic vol] 92.7 fL Normal 80.0-100.0 [facility] Comment on above: Order Comment: Speci men Type: BLOOD SPECIMENOrdering Facility: [facility] Address: [address] [place] [address] Performed By: #### 5 8410-2 ####[facility]ORATORYCLIA [id number] [address] Nucleated RBC (Bld) [#/Vol] 10*3/uL Normal <0.01 [facility] Comment on above: Order Comment: Speci men Type: BLOOD SPECIMENOrdering Facility: [facility] Address: [address] [place] [address] Performed By: #### 5 8410-2 ####[facility] LABORATORYCLIA [id number] [address] Platelet mean volume (Bld) [Entitic vol] 10.2 fL Normal 9.0-12.7 [facility] Comment on above: Order Comment: Speci men Type: BLOOD SPECIMENOrdering Facility: [facility] Address: [address] [place] [address] Performed By: #### 5 8410-2 ####[facility]ORATORYCLIA [id number] [address] Platelets (Bld) [#/Vol] 168 10*3/uL Normal 150-400 [facility] Comment on above: Order Comment: Speci men Type: BLOOD SPECIMENOrdering Facility: [facility] Address: [address] [place] [address] Performed By: #### 5 8410-2 ####[facility] LABORATORYCLIA [id number] [address] OF [facility] RBC (Bld) [#/Vol] 3.96 10*6/uL Low 4.20-6.00 [facility] Comment on above: Order Comment: Speci men Type: BLOOD SPECIMENOrdering Facility: [facility] Address: [address] [place] [address] Performed By: #### 5 8410-2 ####[facility]ORATORYCLIA [id number] [address] WBC (Bld) [#/Vol] 8.94 10*3/uL Normal 3.70-11.00 [facility] Comment on above: Order Comment: Speci men Type: BLOOD SPECIMENOrdering Facility: [facility] Address: [address] [place] [address] Performed By: #### 5 8410-2 ####[facility] LABORATORYCLIA [id number] [address] CNCRITCRon 04-01-2023 CNCRITCR Critical Care Transport (CCT) OLGA LINDSEY ([id number]) 1940 M Date Time Provider Department 04/01/23 SANDRA PONCE During your visit today, we recorded the following information about you: Allergies As of Date: 04/01/2023 (No Known Allergies) Date Reviewed: 04/01/2023 Reviewed by: Khadra Jung RN - Fully Assessed Reason for Visit: Critical Care Transport [1718] Order(s):[] hydrALAZINE 10 mg injection (APRESOLINE)Disp: Rfl: Prescriptions as of 04/01/2023 - ELIQUIS 5 mg tab(s) Take 1 tablet by mouth every 12 hours. - lisinopril (ZESTRIL) 40 mg tablet Take 1 tablet by mouth every afternoon. - acetaminophen (TYLENOL) 500 mg tablet Take 500 mg by mouth as needed for pain. - dilTIAZem CD (CARDIZEM CD, CARTIA XT) 240 mg 24 hr capsule Take 1 capsule by mouth once daily. Hold for heart rate <60, SBP <100 - atorvastatin (LIPITOR) 40 mg tablet Take 1 tablet by mouth daily at bedtime. - clopidogrel (PLAVIX) 75 mg tablet Take 1 tablet by mouth once daily. - metoprolol tartrate, short acting, (LOPRESSOR) 50 mg tablet Take 1 tablet by mouth every 8 hours. Hold for heart rate <60, SBP <100 - albuterol HFA (PROVENTIL HFA, VENTOLIN HFA) 90 mcg/actuation inhaler Inhale 1 Puff as instructed every 4 hours as needed for wheezing/shortness of breath. - levothyroxine 50 mcg cap Take 50 mcg by mouth daily before breakfast. - carBAMazepine (TEGRETOL) 200 mg tablet Take 1 tablet by mouth three times daily. Facility-Administered Medications as of 04/01/2023 - carBAMazepine 200 mg tab(s) (TEGretol) - atorvastatin 40 mg tab(s) (LIPITOR) - albuterol HFA 90 mcg/actuation 1 Puff (PROVENTIL HFA, VENTOLIN HFA) - levothyroxine 25 mcg tab(s) (SYNTHROID) - NaCl 0.9% iv flush bag - acetaminophen 975 mg tab(s) (TYLENOL) - oxyCODONE IR 5-10 mg tab(s) (ROXICODONE) - ipratropium-albuterol 3 mL nebulizer solution (DUONEB) - ondansetron 4 mg tab(s) (ZOFRAN) - ondansetron (PF) 4 mg injection (ZOFRAN) - lidocaine 4 % 1 Patch (SALONPAS) - lidocaine patch - REMOVE - lidocaine - VERIFY PATCH - pregabalin 75 mg cap(s) (LYRICA) - fentaNYL 50 mcg/mL 50 mcg injection (SUBLIMAZE) - dilTIAZem CD 120 mg cap(s) (CARDIZEM CD, CARTIA XT) Meds Comments as of 04/01/2023: 04/01/2023 Medications reviewed with Yuridia Talley (daughter and medication historian for pt) 05/06: SEVERE interaction between: apixaban and carBAMazepine, clopidogrel and apixaban - PER Liz Pulliam APRN OK to continue Problem List As Of Date 04/01/2023 Noted Resolved Essential hypertension, benign [I10] 08/30/2013 Hyperlipidemia [E78.5] 08/30/2013 Closed nondisplaced fracture of styloid process*03/25/2015 10/24/2015 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] Tremor [R25.1] 10/24/2015 Meningioma (HCC) [D32.9] 06/02/2018 NSTEMI (non-ST elevated myocardial infarction) *04/17/2022 04/30/2022 Obesity, Class I, BMI 30-34.9 [E66.9] 04/17/2022 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] 04/30/2022 Trauma [T14.90XA] 04/01/2023 Prescriptions ordered this encounter Disp Refills Start End HYDRALAZINE 20 MG/ML INJECTION SOLUT* 04/01/2023 04/01/2023 Route: INTRAVENOUS Encounter Status:Closed by BRYON BERNAL on 04/01/23 [facility]23 CONSULT HNO ID: [id number] Author: JP LUNA MD Service: Cardiovascular Medicine Author Type: Physician Type: Consults Filed: 04/02/2023 16:00 Note Text: CVICU INITIAL CONSULT NOTE PATIENT NAME: Olga Lindsey DATE: April 01, 2023 ADMITTED FOR: afib, slow ventricular response Subjective HPI Mr. Olga Lindsey is a 83 year old male with PMH: -Trauma - CAD s/p CABG x 3 (RICHMOND-LAD, SVG-OG, SVG-PDA 04/20/2022) with postoperative course complicated by atrial fibrillation on POD#1 on Plavix - Atrial fibrillation on Eliquis, diltiazem 240 mg, metoprolol tartrate 50 mg BID - HLD on atorvastatin 40 mg - HTN on lisinopril 20 mg - Meningioma - Hypothyroidism - Trigeminal neuralgia on carbamazepine Patient presented to [facility]23 as a trauma transfer after he fell while handing his wheelbarrow. Trauma workup was revealing for right lateral ribs 7-9 fracture and hemothorax. Chest tube was placed and patient was moved to SICU for further evaluation and management. While in the SICU, patient was noted to have developed bradycardia with rates in the 30-40s. EKG obtained at 0730 is revealing for afib with slow ventricular response with rates of 55. Patient has intermittently been having nonsustained rates in the high 30-40s. At bedside, patient's rate is noted to be in the high 50's-low 60s and appears irregular on telemetry. Patient reports no lightheadedness, dizziness, headaches, or shortness of breath. He does endorse feeling sleepy, but states that he has not slept well the past 48 hours due to pain. He does endorse chronic fatigue that has been ongoing since his CABG in April 2022. He denies chest palpitations. He does endorse chest right sided chest wall pain. Review of Systems Constitutional: Positive for fatigue. Negative for chills, diaphoresis and fever. Respiratory: Negative for cough, shortness of breath and wheezing. Cardiovascular: Positive for chest pain (chest wall pain) and leg swelling. Negative for palpitations (baseline). Neurological: Negative for dizziness, syncope, weakness, light-headedness and headaches. Psychiatric/Behaviora l: Negative for confusion and dysphoric mood. The patient is not nervous/anxious. Complete review of systems was performed and pertinent positives are mentioned above. PAST MEDICAL HISTORY Diagnosis Date CAD (coronary artery disease) HTN (hypertension) 08/12/2013 [place] [facility] Tremor Trigeminal neuralgia PAST SURGICAL HISTORY Procedure Laterality Date CABG (3) VEIN GRAFTS AND ARTERIAL GRAFT(S) 04/20/2022 (RICHMOND-LAD, SVG-OM, SVG-PDA PAST SURGICAL HISTORY OF chain saw laceration PAST SURGICAL HISTORY OF stereotactic radiosurgery for left sided trigeminal neuralgia and meningioma PROSTATECTOMY, SIMPLE, BENIGN 08/18/2013 Dr. Vasquez TONSILLECTOMY PRIMARY/SECONDARY Tonsillectomy FAMILY HISTORY Problem Relation Age of Onset None Mother None Father Social History Tobacco Use Smoking status: Never Smokeless tobacco: Never Vaping Use Vaping Use: Never used Substance Use Topics Alcohol use: No Drug use: No No current facility-administered medications on file prior to encounter. Current Outpatient Medications on File Prior to Encounter Medication Sig ELIQUIS 5 mg tab(s) Take 1 tablet by mouth every 12 hours. lisinopril (ZESTRIL) 40 mg tablet Take 1 tablet by mouth every afternoon. acetaminophen (TYLENOL) 500 mg tablet Take 500 mg by mouth as needed for pain. dilTIAZem CD (CARDIZEM CD, CARTIA XT) 240 mg 24 hr capsule Take 1 capsule by mouth once daily. Hold for heart rate <60, SBP <100 atorvastatin (LIPITOR) 40 mg tablet Take 1 tablet by mouth daily at bedtime. clopidogrel (PLAVIX) 75 mg tablet Take 1 tablet by mouth once daily. metoprolol tartrate, short acting, (LOPRESSOR) 50 mg tablet Take 1 tablet by mouth every 8 hours. Hold for heart rate <60, SBP <100 (Patient taking differently: Take 50 mg by mouth two times a day. Hold for heart rate <60, SBP <100) albuterol HFA (PROVENTIL HFA, VENTOLIN HFA) 90 mcg/actuation inhaler Inhale 1 Puff as instructed every 4 hours as needed for wheezing/shortness of breath. levothyroxine 50 mcg cap Take 50 mcg by mouth daily before breakfast. carBAMazepine (TEGRETOL) 200 mg tablet Take 1 tablet by mouth three times daily. Objective OBJECTIVE BP 154/87 Pulse 62 Temp 36.5 ?C (97.7 ?F) (Oral) Resp 20 Ht 177.8 cm (5' 10) Wt 83 kg (182 lb 15.7 oz) SpO2 98% BMI 26.26 kg/m? Temp (24hrs), Av.5 ?C (97.7 ?F), Min:36.3 ?C (97.3 ?F), Max:36.6 ?C (97.9 ?F) Body mass index is 26.26 kg/m?., Hemoglobin A1C (%) Date Value 04/17/2022 5.8 Intake/Output Summary (Last 24 hours) at 04/01/20231999 Last data filed at 04/01/2023 1758 Gross per 24 hour Intake 250 ml Output 850 ml Net -600 ml Physical Exam Vitals and nursing note reviewed. Constitutional: Appearance: Normal appearance. HENT: Mouth/Throat: Mouth: Mucous (more content not included)... Normal [facility] CONSULT HNO ID: [id number] Author: LAURA SYKES MD Service: General Surgery Author Type: Physician Type: Consults Filed: 04/01/2023 11:11 Note Text: Surgical Intensive Care Unit Consult Note SERVICE DATE: 04/01/2023 SERVICE TIME: 7:39 AM REASON FOR CONSULT: rib fx, hemothorax REQUESTING PHYSICIAN: ED Subjective 83 year old male with PMHx HTN, HLD, trigeminal nerualgia, CABG (04/2022 ago on plavix), A fib (on eliquis) who presents as trauma transfer after he fell while handling his wheelbarrow. He reports he was pulling haystacks when his wheelbarrow tipped over and carried him with it. He fell onto a portion of a skid steerloader and fell on his right side. No dizziness of syncope prior. No LOC and he did not his his head. He last took eliquis yesterday at 9:30p. He is currently complaining of right chest wall pain. No SOB or chest pain. No headaches or numbness or tingling. GCS 15. FUNCTIONAL STATUS: Independent PAST MEDICAL HISTORY Diagnosis Date CAD (coronary artery disease) HTN (hypertension) 08/12/2013 [place] [facility] Tremor Trigeminal neuralgia PAST SURGICAL HISTORY Procedure Laterality Date CABG (3) VEIN GRAFTS AND ARTERIAL GRAFT(S) 04/20/2022 (RICHMOND-LAD, SVG-OM, SVG-PDA PAST SURGICAL HISTORY OF chain saw laceration PAST SURGICAL HISTORY OF stereotactic radiosurgery for left sided trigeminal neuralgia and meningioma PROSTATECTOMY, SIMPLE, BENIGN 08/18/2013 Dr. Vasquez TONSILLECTOMY PRIMARY/SECONDARY Tonsillectomy FAMILY HISTORY Problem Relation Age of Onset None Mother None Father Social History Tobacco Use Smoking status: Never Smokeless tobacco: Never Vaping Use Vaping Use: Never used Substance Use Topics Alcohol use: No Drug use: No (Not in a hospital admission) Current Facility-Administered Medications Medication Dose Route Frequency NaCl 0.9% iv flush bag 50 mL INTRAVENOUS ONCE carBAMazepine 200 mg tab(s) (TEGretol) 200 mg ORAL TID atorvastatin 40 mg tab(s) (LIPITOR) 40 mg ORAL AT BEDTIME albuterol HFA 90 mcg/actuation 1 Puff (PROVENTIL HFA, VENTOLIN HFA) 1 Puff INHALATION q 4 H PRN metoprolol tartrate (short acting) 50 mg tab(s) (LOPRESSOR) 50 mg ORAL q 8 H levothyroxine cap 25 mcg 25 mcg ORAL BEFORE BREAKFAST DAILY NaCl 0.9% iv flush bag 20 mL INTRAVENOUS PRN lactated ringers iv infusion 100 mL/hr INTRAVENOUS CONTINUOUS acetaminophen 975 mg tab(s) (TYLENOL) 975 mg ORAL/FEEDING TUBE QID oxyCODONE IR 5-10 mg tab(s) (ROXICODONE) 5-10 mg ORAL/FEEDING TUBE q 6 H PRN ipratropium-albuterol 3 mL nebulizer solution (DUONEB) 3 mL INHALATION q 6 H PRN ondansetron 4 mg tab(s) (ZOFRAN) 4 mg ORAL q 6 H PRN Or ondansetron (PF) 4 mg injection (ZOFRAN) 4 mg INTRAVENOUS q 6 H PRN lidocaine 4 % 1 Patch (SALONPAS) 1 Patch TRANSDERMAL DAILY And lidocaine patch - REMOVE OTHER AT BEDTIME And lidocaine - VERIFY PATCH OTHER q 8 H pregabalin 75 mg cap(s) (LYRICA) 75 mg ORAL BID fentaNYL 50 mcg/mL 50 mcg injection (SUBLIMAZE) 50 mcg INTRAVENOUS q 1 H PRN Facility-Administered Medications Ordered in Other Encounters Medication Dose Route Frequency hydrALAZINE 10 mg injection (APRESOLINE) 10 mg INTRAVENOUS ONCE Allergies As of Date: 04/01/2023 (No Known Allergies) Fully Assessed 04/01/2023 ROS: Is the patient having any pain? Yes LOCATION: right chest wall tenderness Constitutional: none Eye/Ear/Nose: none Respiratory: none Cardiovascular: none GI/Liver/Biliary: none Genitourinary: none Psychiatric: none Neurologic: none Musculoskeletal: none Integument: none Endocrine: none Heme/Lymph: none Objective PHYSICAL EXAM: BP 199/111 Pulse 90 Temp (Src) 97.3 (Oral) Resp 26 Ht 5' 10 (1.78m) Wt 183 lb (83.0kg) SpO2 94% BMI 26.26 kg/(m2). O2 Therapy: Room Air PRIMARY SURVEY AIRWAY: Patent BREATHING: Breath sounds equal CIRCULATION: bilat DP and radials palp DISABILITY: Eye: 4=Spontaneous Verbal: 5=Oriented and Converses Motor: 6=Obeys Commands Total GCS: 15=4 Resp Rate: 10 to 29=4 Syst BP: > than 89=4 REVISED TRAUMA SCORE: 12 EXPOSE / ENVIRONMENT: Not Applicable PROCEDURES: none SECONDARY SURVEY Gen: No acute distress. Resting comfortably. Neuro: No gross neurological deficit. Sensation and motor in tact in BL UE and LE. Head: Normocephalic. Atraumatic. Neck: Trachea midline, no JVD. Resp: On RA, equal chest rise bilaterally. No use of accessory muscles for breathing. ++right chest wall tenderness CVS: RR as above. Extremities warm and well perfused. GI: Abdomen is soft, tender near inferior ribs on the right, no rebound or guarding MSK: Extremities without cyanosis or edema. Moves all extremities x4. Skin: Warm and dry. Not jaundiced. Psych: Normal mood and affect. DATA: Labs: No results for input(s): NA, K, CHLOR, CO2, BUN, CREAT, GLUC, ANION, CA, MG, P, ALB, AST, ALT, ALKPHOS, TBILI, DBILI, PHOSINTL, WBC, HB (more content not included)... Normal [facility] Calcium.ionized [Moles/Vol]o n 04-01-2023 Calcium.ionized (BldV) [Mass/Vol] 1.28 mmol/L Normal 1.08-1.30 [facility] Comment on above: Order Comment: Speci men Type: BLOOD SPECIMENOrdering Facility: [facility] Address: [address] [place] [address] Performed By: #### 1 995-0 ####[facility] LABORATORYCLIA [id number] [place] [id number] [place] Calcium.ionized adjusted to pH 7.4 (Bld) [Moles/Vol] 1.24 mmol/L Normal 1.08-1.30 [facility] Comment on above: Order Comment: Speci men Type: BLOOD SPECIMENOrdering Facility: [facility] Address: [place] [id number] Performed By: #### 1 995-0 ####[facility] LABORATORYCLIA [id number] [place] [address] [place] Determination of erythrocyte mean corpuscular volume (MCV)Ordered By: Rayray Wiggins on 04-01-2023 MCV (RBC) [Entitic vol] 91.5 fL 80-94 [facility] ECG COMPLETEon 04-01-2023 ECG COMPLETE Ventricular Rate : 5 5 BPM QRS Duration : 88 ms Q-T Interval : 440 ms QTC Calculation(Bazett) : 420 ms Calculated R Marcellus : 42 degrees Calculated T Marcellus : 16 degrees ATRIAL FIBRILLATION WITH SLOW VENTRICULAR RESPONSE MINIMAL VOLTAGE CRITERIA FOR LVH, MAY BE NORMAL VARIANT ( Sokolow-Rankin ) ABNORMAL ECG WHEN COMPARED WITH ECG OF 28-APR-2022 18:07, VENT. RATE HAS DECREASED BY 43 BPM NONSPECIFIC T WAVE ABNORMALITY, IMPROVED IN INFERIOR LEADS NONSPECIFIC T WAVE ABNORMALITY NO LONGER EVIDENT IN LATERAL LEADS Confirmed by MD SMITH VINAY ([id number]) on 04/05/2023 9:13:06 AM NAME : OLGA LINDSEY PID : [id number] : 1940 Gender : Male Race : ORD : [id number] Procedure Date : Apr 01 2023 19:20:53 Edit Date : Apr 05 2023 09:13:09 Diagnosis: ATRIAL FIBRILLATION WITH SLOW VENTRICULAR RESPONSE MINIMAL VOLTAGE CRITERIA FOR LVH, MAY BE NORMAL VARIANT ( Sokolow-Rankin ) ABNORMAL ECG WHEN COMPARED WITH ECG OF 28-APR-2022 18:07, VENT. RATE HAS DECREASED BY 43 BPM NONSPECIFIC T WAVE ABNORMALITY, IMPROVED IN INFERIOR LEADS NONSPECIFIC T WAVE ABNORMALITY NO LONGER EVIDENT IN LATERAL LEADS Confirmed by MD SMITH VINAY ([id number]) on 04/05/2023 9:13:06 AM Test Reason : Arrhythmia Location : [address] : [place] [address] Overread By : MD SMITH VINAY Edited By : MD SMITH VINAY Referred By : , Acquired by : MARY NYE [facility] ED NOTEon 04-01-2023 ED NOTE HNO ID: [id number] Author: GRACE LOPEZ RN Service: Emergency Medicine Author Type: Registered Nurse Type: ED Notes Filed: 04/01/2023 13:44 Note Text: Report to RAN Sarmiento [facility] ED NOTE HNO ID: [id number] Author: GRACE LOPEZ RN Service: Emergency Medicine Author Type: Registered Nurse Type: ED Notes Filed: 04/01/2023 11:21 Note Text: A total of 740ml's blood drained from right chest tube. [facility] ED NOTE HNO ID: [id number] Author: GRACE LOPEZ RN Service: Emergency Medicine Author Type: Registered Nurse Type: ED Notes Filed: 04/01/2023 10:50 Note Text: Dr. Keyes at bedside for chest tube prcedure, time out preformed. [facility] ED PROV NOTEon 04-01-2023 ED PROV NOTE HNO ID: [id number] Author: SHAUN ELENA MD Service: Emergency Medicine Author Type: Physician Type: ED Provider Notes Filed: 04/01/2023 09:46 Note Text: ED CONTINUATION OF CARE NOTE Code Status: Full Code Assumed care from: Dr. Manriquez Presentation / Findings / Interventions / Plan / Items to Follow Up: pending admission, plan for serratus nerve block ED Course as of 04/01/23 1119 Shaun Elena's Documentation Jenny Apr 01, 2023 1041 Surgery at bedside for chest tube 1118 S/p chest tube - moderate BRB output >400cc, tube clamped. VSS. Pt tolerated procedure well. Pending CXR and DW trauma Clinical Impressions as of 04/01/23 1119 Closed fracture of multiple ribs of right side, initial encounter Hemothorax on right Serratus block performed s/p informed consent - signed form in chart. Please see procedure note. Awaiting ICU bed. Pt placed on 2L NC for mild hypoxia 89% only after IV fentanyl administered. SIGNATURE: Shaun Elena MD PATIENT NAME: Olga Lindsey DATE: April 01, 2023 TIME: 9:43 AM PAGER/CONTACT #: SHAUN ELENA 04/01/23 0946 Normal [facility] ED PROV NOTE HNO ID: [id number] Author: MOLLY MANRIQUEZ MD Service: Emergency Medicine Author Type: Physician Type: ED Provider Notes Filed: 05/03/2023 04:18 Note Text: ED Provider Note Patient Name: Olga Lindsey : 1940 SERVICE DATE: 04/01/23 History Patient presents with: Functional Transfers: Pt transfer from [facility]. Had a fall yesterday while pushing a wheelbarrow. States he fell into another piece of farm equipment. On eliquis. Imaging showed possible Hemo/Pneumo. Patient is a 83-year-old male who is a transfer from [place]. Patient was pushing on a wheelbarrow yesterday, it fell and he fell onto a different piece of farm equipment. He walked back to the house and was doing well, he attempted to go to bed but the pain worsened so he called the ambulance. They did a workup at [place], including a chest CT that showed 3 right-sided displaced rib fractures with a hemothorax. Transferred him here for a trauma consult. He is on Eliquis and Plavix. He states he did not hit his head or lose consciousness. Is endorsing chest pain and mild abdominal pain. His last dose of Eliquis was the evening of 03/31 History provided by: Patient, EMS personnel and medical records PAST MEDICAL HISTORY Diagnosis Date CAD (coronary artery disease) HTN (hypertension) 08/12/2013 [place] [facility] Tremor Trigeminal neuralgia PAST SURGICAL HISTORY Procedure Laterality Date CABG (3) VEIN GRAFTS AND ARTERIAL GRAFT(S) 04/20/2022 (RICHMOND-LAD, SVG-OM, SVG-PDA PAST SURGICAL HISTORY OF chain saw laceration PAST SURGICAL HISTORY OF stereotactic radiosurgery for left sided trigeminal neuralgia and meningioma PROSTATECTOMY, SIMPLE, BENIGN 08/18/2013 Dr. Vasquez TONSILLECTOMY PRIMARY/SECONDARY Tonsillectomy FAMILY HISTORY Problem Relation Age of Onset None Mother None Father Social History Tobacco Use Smoking status: Never Smokeless tobacco: Never Vaping Use Vaping Use: Never used Substance and Sexual Activity Alcohol use: No Drug use: No Sexual activity: Not on file ALLERGIES No Known Allergies Review of Systems Constitutional: Negative for activity change, chills, fatigue and fever. HENT: Negative for congestion, rhinorrhea and sore throat. Eyes: Negative for pain and visual disturbance. Respiratory: Negative for cough, shortness of breath and wheezing. Cardiovascular: Positive for chest pain (Right chest wall pain). Negative for palpitations and leg swelling. Gastrointestinal: Negative for abdominal pain, nausea and vomiting. Genitourinary: Negative for dysuria and hematuria. Musculoskeletal: Negative for arthralgias and myalgias. Skin: Negative for rash and wound. Neurological: Negative for syncope, weakness, light-headedness, numbness and headaches. Psychiatric/Behaviora l: Negative for confusion and sleep disturbance. Physical Exam Vitals BP Pulse Temp Temp src Resp SpO2 Weight Height 04/01/23 0638 04/01/23 0634 04/01/23 0634 04/01/23 0634 04/01/23 0634 04/01/23 0634 04/01/23 0634 04/01/23 0634 189/110 83 36.3 ?C (97.3 ?F) Oral (!) 30 (!) 94 % 83 kg (183 lb) 1.778 m (5' 10) Physical Exam Constitutional: General: He is not in acute distress. Appearance: Normal appearance. He is not ill-appearing. HENT: Head: Normocephalic and atraumatic. Nose: Nose normal. Mouth/Throat: Mouth: Mucous membranes are moist. Pharynx: Oropharynx is clear. No oropharyngeal exudate. Eyes: General: Right eye: No discharge. Left eye: No discharge. Extraocular Movements: Extraocular movements intact. Conjunctiva/sclera: Conjunctivae normal. Cardiovascular: Rate and Rhythm: Normal rate. Rhythm irregularly irregular. Pulses: Normal pulses. Heart sounds: Normal heart sounds. Pulmonary: Effort: Pulmonary effort is normal. Tachypnea present. No respiratory distress. Breath sounds: Normal breath sounds. No wheezing. Chest: Chest wall: Tenderness and crepitus present. Abdominal: General: Abdomen is flat. There is no distension. Palpations: Abdomen is soft. Tenderness: There is abdominal tenderness (Mild right-sided abdominal pain). There is no right CVA tenderness, left CVA tenderness, guarding or rebound. Musculoskeletal: General: No swelling or signs of injury. Normal range of motion. Cervical back: Normal range of motion. No rigidity. Right lower leg: No edema. Left lower leg: No edema. Skin: General: Skin is warm and dry. Neurological: General: No focal deficit present. Mental Status: He is alert and oriented to person, place, and time. Mental status is at baseline. Psychiatric: Mood and Affect: Mood normal. Behavior: Behavior normal. Diagnostic Testing ED Labs Ordered and Reviewed CBC - Abnormal; Notable for the following components: Result Value Ref Range RBC 3.96 (*) 4.20 - 6.00 m/uL Hemoglobin 11.8 (*) 13.0 - 17.0 g/dL Hematocrit 36.7 (*) 39.0 - 51.0 % All other components within normal (more content not included)... Normal [facility] Erythrocyte distribution wid th ratioOrdered By: Rayray Wiggins on 04-01-2023 Erythrocyte distribution width (RBC) [Ratio] 14.6 % 11.6-14.6 [facility] Erythrocyte distribution wid th standard deviationOrdered By: Rayray Wiggins on 04-01-2023 Erythrocyte distribution width (RBC) [Entitic vol] 49.1 fL 35.1-43.9 [facility] GLOBAL HEMOSTASIS WITH LYSIS on 04-01-2023 Clot Lysis 30 Min post maximum clot amplitude TEG (Bld) [Length fraction] 1.1 % Normal 0.0-2.6 [facility] Comment on above: Order Comment: Speci men Type: BLOOD SPECIMENOrdering Facility: [facility] Address: [address] [place] [address] Performed By: #### T EGLYS ####[facility] LABORATORYCLIA [id number] [address] [place] Clotting time.extrinsic coagulation system activated Rotational TEG (Bld) 6.6 minutes Normal 4.6-9.1 [facility] Comment on above: Order Comment: Speci men Type: BLOOD SPECIMENOrdering Facility: [facility] Address: [address] [place] [address] Performed By: #### T EGLYS ####[facility] LABORATORYCLIA [id number] [address] [place] Maximum clot firmness.extrinsic coagulation system activated.platelets inhibited Rotational TEG (Bld) [Length] 57.5 mm Normal 52.0-70.0 [facility] Comment on above: Order Comment: Jaime howell Type: BLOOD SPECIMENOrdering Facility: [facility] Address: [address] [place] [address] Result Comment: 18.7 Performed By: #### T EGLYS ####[facility] LABORATORYCLIA [id number] [place] [id number] [facility] THROMBOGRAPH INTERP Normal [facility] Comment on above: Order Comment: Jaime howell Type: BLOOD SPECIMENOrdering Facility: [facility] Address: [address] [place] [address] Result Comment: A th romboelastograph (TEG) study was performed using citrate-anticoagulated whole blood. The R value, a measure of coagulation function, is within the normal range. This indicates normal coagulation function. The Ly30, a measure of fibrinolysis, is normal. This is indicative of normal fibrinolytic function. The Maximal Amplitude (MA), a measure of platelet function, is within the normal range. The fibrinogen contribution clot formation is normal. This test is not recommended for patients on heparin. Performed By: #### T EGLYS ####[facility] LABORATORYIA [id number] [address] HISTORY PHYSICALon HISTORY PHYSICAL HNO ID: [id number] Author: JOSE RAMON LANZA MD Service: General Surgery Author Type: Resident Type: H&P Filed: 04/21/2023 15:35 Note Text: Attestation signed by Jose Ramon Lanza MD at 04/21/2023 3:35 PM Trauma Attending Note I have personally seen and evaluated this patient and participated in the muñoz components of this encounter. I discussed the management of this case with the surgery resident team and independently confirmed the findings and plan of care as documented either attached or in their separate note from today. Any corrections or additional notes are made as needed. I evaluated the patient on April 01, 2023 and 0905 am. Assessment and Plan: Olga Lindsey is a 83 year old male evaluated following a Level 3 activation for fell with wheelbarrow The patient was evaluated according to ATLS protocols. Injuries and diagnoses are notable for: Ground level fall R 7-9 rib fxs, hemothorax and pulm contusion HTN, HLD Hx of a.fib on Eliquis, R chest tube, possible rib block by ED staff. Admit to ICU, SICU consult, multi-modal pain control, aggressive pulm toilet, interval CXR, will need PT/OT evaluation. Jose Ramon Lanza MD Delayed entry TRAUMA SURGERY HANDP [facility] [place] ARRIVAL DATE: 04/01/2023 ARRIVAL TIME: 7:22 AM CATEGORY: 3, transfer from [place] INJURY DATE: 04/01/2023 INJURY TIME: prior to arrival Subjective 83 year old male with PMHx HTN, HLD, trigeminal nerualgia, CABG (04/2022 Dr.Lahorra graves on plavix), A fib (on eliquis) who presents as trauma transfer after he fell while handling his wheelburrow. He reports he was pulling haystacks when his wheelburrow tipped over and carried him with it. He fell onto a portion of a skid steerloader and fell on his right side. No dizziness of syncope prior. No LOC and he did not his his head. He last took eliquis yesterday at 9:30p. He is currently complaining of right chest wall pain. No SOB or chest pain. No headaches or numbness or tingling. GCS 15. HPI/CHIEF COMPLAINT: GLF LAST FLUIDS/MEAL: unknown CODE STATUS: Full code ALLERGIES No Known Allergies (Not in a hospital admission) DATE OF LAST TETANUS: unknown Immunization History Administered Date(s) Administered COVID-19 vaccine (Vantrix) 11/06/2020 PAST MEDICAL HISTORY Diagnosis Date CAD (coronary artery disease) HTN (hypertension) 08/12/2013 [place] [facility] Tremor Trigeminal neuralgia PAST SURGICAL HISTORY Procedure Laterality Date CABG (3) VEIN GRAFTS AND ARTERIAL GRAFT(S) 04/20/2022 (RICHMOND-LAD, SVG-OM, SVG-PDA PAST SURGICAL HISTORY OF chain saw laceration PAST SURGICAL HISTORY OF stereotactic radiosurgery for left sided trigeminal neuralgia and meningioma PROSTATECTOMY, SIMPLE, BENIGN 08/18/2013 Dr. Vasquez TONSILLECTOMY PRIMARY/SECONDARY Tonsillectomy Social History Tobacco Use Smoking status: Never Smokeless tobacco: Never Vaping Use Vaping Use: Never used Substance Use Topics Alcohol use: No Drug use: No FAMILY HISTORY Problem Relation Age of Onset None Mother None Father ROS: Is the patient having any pain? Yes LOCATION: right chest wall tenderness Constitutional: none Eye/Ear/Nose: none Respiratory: none Cardiovascular: none GI/Liver/Biliary: none Genitourinary: none Psychiatric: none Neurologic: none Musculoskeletal: none Integument: none Endocrine: none Heme/Lymph: none Objective PRIMARY SURVEY AIRWAY: Patent BREATHING: Breath sounds equal CIRCULATION: bilat DP and radials palp DISABILITY: Eye: 4=Spontaneous Verbal: 5=Oriented and Converses Motor: 6=Obeys Commands Total GCS: 15=4 Resp Rate: 10 to 29=4 Syst BP: > than 89=4 REVISED TRAUMA SCORE: 12 EXPOSE / ENVIRONMENT: Not Applicable PROCEDURES: none SECONDARY SURVEY Gen: No acute distress. Resting comfortably. Neuro: No gross neurological deficit. Sensation and motor in tact in BL UE and LE. Head: Normocephalic. Atraumatic. Neck: Trachea midline, no JVD. Resp: On RA, equal chest rise bilaterally. No use of accessory muscles for breathing. ++right chest wall tenderness CVS: RR as above. Extremities warm and well perfused. GI: Abdomen is soft, tender near inferior ribs on the right, no rebound or guarding MSK: Extremities without cyanosis or edema. Moves all extremities x4. Skin: Warm and dry. Not jaundiced. Psych: Normal mood and affect. PRIOR TO ARRIVAL: No Loss of Consciousness IMAGES No orders to display LABS: CBC, Coags, BMP, Mg, Phos Assessment/Plan RADIOLOGICAL/OTHER TEST DATA: No orders to display PRIOR TO ARRIVAL: No Loss of Consciousness Labs: No results for input(s): NA, K, CHLOR, CO2, BUN, CREAT, GLUC, ANION, CA, MG, P, ALB, AST, ALT, ALKPHOS, TBILI, DBILI, PHOS (more content not included)... Normal [facility] Hematocrit Auto (Bld) [Volum e fraction]Ordered By: Rayray Wiggins on 04-01-2023 Hematocrit (Bld) [Volume fraction] 36.8 % 40-54 [facility] Immature granulocytes/100 WB C Auto (Bld)Ordered By: Rayray Wiggins on 04-01-2023 Immature granulocytes/100 WBC (Bld) 0.500 % 0.0-0.9 [facility] Comment on above: IG% - Immature Granu locytes (promyelocytes, myelocytes and metamyelocytes) > 1% indicates that a LEFT SHIFT is Present. Laboratory - Chemistry and C hemistry - challengeOrdered By: Rayray Wiggins on 04-01-2023 CO2 [Moles/Vol] 27.0 mmol/L 21.0-32.0 [facility] Urea nitrogen/Creatinine [Mass ratio] 28.1 mg/mg 10-20 [facility] Laboratory - CoagulationOrde red By: Rayray Wiggins on 04-01-2023 INR Coag (Bld) [Relative time] 1.4 {INR} [facility] PT Coag (PPP) [Time] 17.7 s 11.7-14.9 [facility] Laboratory - Hematology and Cell countsOrdered By: Rayray Wiggins on 04-01-2023 MCH (RBC) [Entitic mass] 28.9 pg 27.0-32.0 [facility] MCHC (RBC) [Mass/Vol] 31.5 g/dL 32-36 [facility] Nucleated RBC/100 WBC (Bld) [Ratio] 0 % 0-5 [facility] Platelet mean volume (Bld) [Entitic vol] 9.2 fL 6.2-12.0 [facility] Platelets (Bld) [#/Vol] 167 10*3/uL 150-450 [facility] Magnesium SerPl-mCncon 04-01 Magnesium [Mass/Vol] 2.1 mg/dL Normal 1.7-2.3 [facility] Comment on above: Order Comment: Speci men Type: BLOOD SPECIMENOrdering Facility: [facility] Address: [address] [place] [address] Performed By: #### 1 9123-9, 66871-9, 2777-1 ####[facility] LABORATORYCLIA [id number] [address] STATES [facility] No Panel InformationOrdered By: Rayray Wiggins on 04-01-2023 Estimated Creatinine Clearance Calc 73.51 ml/min [facility] Estimated GFR (MDRD) Amer 136 mL/min >60 [facility] Comment on above: GFR Calc Estimated GFR (MDRD) Non-Af Amer 113 mL/min >60 [facility] Comment on above: Non- GFR Calc Phosphate SerPl-mCncon 04-01 Phosphate [Mass/Vol] 3.3 mg/dL Normal 2.7-4.8 [facility] Comment on above: Order Comment: Speci men Type: BLOOD SPECIMENOrdering Facility: [facility] Address: [address] [place] [address] Performed By: #### 1 9123-9, 76237-8, 2776-02 ####[facility] LABORATORYCLIA [id number] [address] [place] RBC Auto (Bld) [#/Vol]Ordere d By: Rayray Wiggins on 04-01-2023 RBC (Bld) [#/Vol] 4.02 10*6/uL 4.6-6.2 [facility] STAPH AUREUS PCRon 4 S. aureus and MRSA panel SOFIA+probe (Nose) Normal Negative [facility] Comment on above: Order Comment: Speci men Type: SWAB OF INTERNAL NOSEOrdering Facility: [facility] Address: [address] [place] [address] Result Comment: Nega tive for Staphylococcus aureus by PCR. Negative for MRSA by PCR Performed By: #### S APCR ####[facility] LABORATORYCLIA [id number] [place] [address] [place] Serum or plasma calcium betty urement (mass/volume)Ordered By: Rayray Wiggins on 04-01-2023 Calcium [Mass/Vol] 9.9 mg/dL 8.5-10.1 [facility] Serum or plasma creatinine m easurement (mass/volume)Ordered By: Rayray Wiggins on 04-01-2023 Creatinine [Mass/Vol] 0.71 mg/dL 0.70-1.30 [facility] Comment on above: The validity of the calculated GFR & GFRAA in patients over 70 years has not been determined. Clinical correlation is essential. Serum or plasma urea nitroge n measurement (mass/volume)Ordered By: Rayray Wiggins on 04-01-2023 Urea nitrogen [Mass/Vol] 20 mg/dL 7-18 [facility] Thin prep Papanicolaou smear with manual screeningOrdered By: Rayray Wiggins on 04-01-2023 Thin prep Papanicolaou smear with manual screening 4 5-15 [facility] XR CHEST 1V FRONTALon 2023 XR CHEST 1V FRONTAL * * *Final Report* * * DATE OF EXAM: Apr 01 2023 11:25AM AKX [id number] - XR CHEST 1V FRONTAL / PROCEDURE REASON: Shortness of breath * * * * Physician Interpretation * * * * EXAMINATION: CHEST RADIOGRAPH (SINGLE VIEW AP OR PA) CLINICAL HISTORY: Shortness of breath, Evaluate tube, line, or lead position, Cough MQ: XC1_5 Comparison: 06/05/2022 RESULT: Lines, tubes, and devices: Right chest tube tip at the right suprahilar region.. EKG wires. Lungs and pleura: No convincing pneumothorax. Small right pleural effusion and right lower lung opacities. Cardiomediastinal silhouette: Grossly stable Other: Median sternotomy. Right 7th rib fracture. IMPRESSION: Small right pleural effusion and right lower lung opacities Indwelling right chest tube. No convincing pneumothorax. Sourcing Intern: PSCB Transcribe Date/Time: Apr 01 2023 11:40A Dictated by : WALT MACK MD This examination was interpreted and the report reviewed and electronically signed by: WALT MACK MD on Apr 01 2023 11:43AM EST [id number] N Normal [facility] Absolute lymphocyte countOrd ered By: Daniela Law on 01-29-2023 Lymphocytes Auto (Unsp spec) [#/Vol] 1.94 10*3/uL 0.83-4.51 [facility] Basophil percentageOrdered B y: Daniela Law on 01-29-2023 Basophils/100 WBC (Bld) 0.6 % 0-1 [facility] Chloride [Moles/Vol] 107 mmol/L 98-107 [facility] Eosinophils/100 WBC (Bld) 3.5 % 0-5 [facility] Glucose [Mass/Vol] 88 mg/dL 74-106 [facility] Neutrophils (Bld) [#/Vol] 3.5 10*3/uL 2.0-7.7 [facility] Neutrophils/100 WBC (Bld) 54.0 % 47-70 [facility] Potassium [Moles/Vol] 4.4 mmol/L 3.5-5.1 [facility] Sodium [Moles/Vol] 142 mmol/L 136-145 [facility] WBC (Bld) [#/Vol] 6.6 10*3/uL 4.4-11.0 [facility] Blood erythrocytes count (nu mber/volume)Ordered By: Daniela Law on 01-29-2023 RBC (Bld) [#/Vol] 4.17 10*6/uL 4.6-6.2 [facility] Blood hemoglobin measurement (mass/volume)Ordered By: Daniela Law on 01-29-2023 Hemoglobin (Bld) [Mass/Vol] 12.3 g/dL 13.0-16.5 [facility] Blood lymphocytes/100 leukoc ytesOrdered By: Daniela Law on 01-29-2023 Lymphocytes/100 WBC (Bld) 29.6 % 19-41 [facility] Blood monocytes/100 leukocyt esOrdered By: Daniela Law on 01-29-2023 Monocytes/100 WBC (Bld) 12.0 % 0-10 [facility] Blood platelet mean volumeOr dered By: Daniela Law on 01-29-2023 Platelet mean volume (Bld) [Entitic vol] 9.5 fL 6.2-12.0 [facility] Determination of erythrocyte mean corpuscular volume (MCV)Ordered By: Daniela Law on 01-29-2023 MCV (RBC) [Entitic vol] 92.6 fL 80-94 [facility] Hematocrit Auto (Bld) [Volum e fraction]Ordered By: Daniela Law on 01-29-2023 Hematocrit (Bld) [Volume fraction] 38.6 % 40-54 [facility] Laboratory - Chemistry and C hemistry - challengeOrdered By: Daniela Law on 01-29-2023 CO2 [Moles/Vol] 31.0 mmol/L 21.0-32.0 [facility] Free T4 [Mass/Vol] 0.63 ng/dL 0.76-1.46 [facility] Urea nitrogen/Creatinine [Mass ratio] 27.1 mg/mg 10-20 [facility] Laboratory - Hematology and Cell countsOrdered By: Daniela Law on 01-29-2023 Erythrocyte distribution width (RBC) [Entitic vol] 45.6 fL 35.1-43.9 [facility] Erythrocyte distribution width (RBC) [Ratio] 13.4 % 11.6-14.6 [facility] Immature granulocytes/100 WBC (Bld) 0.300 % 0.0-0.9 [facility] Comment on above: IG% - Immature Granu locytes (promyelocytes, myelocytes and metamyelocytes) > 1% indicates that a LEFT SHIFT is Present. MCH (RBC) [Entitic mass] 29.5 pg 27.0-32.0 [facility] Nucleated RBC/100 WBC (Bld) [Ratio] 0 % 0-5 [facility] MCHC Auto (RBC) [Mass/Vol]Or dered By: Daniela Law on 01-29-2023 MCHC (RBC) [Mass/Vol] 31.9 g/dL 32-36 [facility] No Panel InformationOrdered By: Daniela Law on 01-29-2023 Estimated GFR (MDRD) Amer 124 mL/min >60 [facility] Comment on above: GFR Calc Estimated GFR (MDRD) Non-Af Amer 102 mL/min >60 [facility] Comment on above: Non- GFR Calc Free Triiodothyronine (T3) pg/dL 2.3 pg/mL 2.18-3.98 [facility] Thyroid Stimulating Hormone (TSH) 4.86 uIU/mL 0.358-3.74 [facility] Platelets bldOrdered By: Yobany Law on 01-29-2023 Platelets (Bld) [#/Vol] 177 10*3/uL 150-450 [facility] Serum or plasma calcium betty urement (mass/volume)Ordered By: Daniela Law on 01-29-2023 Calcium [Mass/Vol] 9.7 mg/dL 8.5-10.1 [facility] Serum or plasma creatinine m easurement (mass/volume)Ordered By: Daniela Law on 01-29-2023 Creatinine [Mass/Vol] 0.77 mg/dL 0.70-1.30 [facility] Comment on above: The validity of the calculated GFR & GFRAA in patients over 70 years has not been determined. Clinical correlation is essential. Serum or plasma urea nitroge n measurement (mass/volume)Ordered By: Daniela Law on 01-29-2023 Urea nitrogen [Mass/Vol] 21 mg/dL 7-18 [facility] Thin prep Papanicolaou smear with manual screeningOrdered By: Daniela Law on 01-29-2023 Thin prep Papanicolaou smear with manual screening 4 5-15 [facility] CNPNon 06-30-2022 NASHN Telephone (SILVIAPatreon) OLGA LINDSEY ([id number]) 1940 M Date Time Provider Department 06/30/22 JAVIER ALEX During your visit today, we recorded the following information about you: Ramez Calle 06/30/2022 2:40 PM Signed Received fax from [facility] stating pt cancelled 08/31/22 with their office and didn't reschedule. Form scanned into chart Allergies As of Date: 06/30/2022 (No Known Allergies) Date Reviewed: 06/05/2022 Reviewed by: Taty Morillo LPN - Fully Assessed Reason for Visit: Referral Information [1322] Prescriptions as of 06/30/2022 - apixaban (ELIQUIS) 5 mg tab(s) Take 1 tablet by mouth twice daily. - dilTIAZem CD (CARDIZEM CD, CARTIA XT) 240 mg 24 hr capsule Take 1 capsule by mouth once daily. Hold for heart rate <60, SBP <100 - furosemide (LASIX) 20 mg tablet Take 1 tablet by mouth once daily for 3 days. - potassium chloride ER (KLOR-CON M10) 10 mEq tablet Take 1 tablet by mouth once daily. - atorvastatin (LIPITOR) 40 mg tablet Take 1 tablet by mouth daily at bedtime. - clopidogrel (PLAVIX) 75 mg tablet Take 1 tablet by mouth once daily. - metoprolol tartrate, short acting, (LOPRESSOR) 50 mg tablet Take 1 tablet by mouth every 8 hours. Hold for heart rate <60, SBP <100 - tamsulosin (FLOMAX) 0.4 mg Take 1 capsule by mouth once daily. - lisinopril (ZESTRIL) 10 mg tablet Take 1 tablet by mouth once daily. - albuterol HFA (PROVENTIL HFA, VENTOLIN HFA) 90 mcg/actuation inhaler Inhale 1 Puff as instructed every 4 hours as needed for wheezing/shortness of breath. - levothyroxine 25 mcg cap Take 25 mcg by mouth daily before breakfast. - carBAMazepine (TEGRETOL) 200 mg tablet Take 1 tablet by mouth three times daily. 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 Informing us pt is schedule to see them on 08/31/22. Allergies As of Date: 06/17/2022 (No Known Allergies) Date Reviewed: 06/05/2022 Reviewed by: Taty Morillo LPN - Fully Assessed Reason for Visit: Referral Information [[id number]] Prescriptions as of 06/17/2022 - apixaban (ELIQUIS) 5 mg tab(s) Take 1 tablet by mouth twice daily. - dilTIAZem CD (CARDIZEM CD, CARTIA XT) 240 mg 24 hr capsule Take 1 capsule by mouth once daily. Hold for heart rate <60, SBP <100 - furosemide (LASIX) 20 mg tablet Take 1 tablet by mouth once daily for 3 days. - potassium chloride ER (KLOR-CON M10) 10 mEq tablet Take 1 tablet by mouth once daily. - atorvastatin (LIPITOR) 40 mg tablet Take 1 tablet by mouth daily at bedtime. - clopidogrel (PLAVIX) 75 mg tablet Take 1 tablet by mouth once daily. - metoprolol tartrate, short acting, (LOPRESSOR) 50 mg tablet Take 1 tablet by mouth every 8 hours. Hold for heart rate <60, SBP <100 - tamsulosin (FLOMAX) 0.4 mg Take 1 capsule by mouth once daily. - lisinopril (ZESTRIL) 10 mg tablet Take 1 tablet by mouth once daily. - albuterol HFA (PROVENTIL HFA, VENTOLIN HFA) 90 mcg/actuation inhaler Inhale 1 Puff as instructed every 4 hours as needed for wheezing/shortness of breath. - levothyroxine 25 mcg cap Take 25 mcg by mouth daily before breakfast. - carBAMazepine (TEGRETOL) 200 mg tablet Take 1 tablet by mouth three times daily. 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 Will try again Referral information. 06/23/[address] Law @ [facility] [phone] . Referred to critical access hospital care S/P 04/20/22 CABG. Records faxed on 06/09/22. Dr. Rodriguez (GI) faxed referral for right hepatic dome cystic lesion seen on 04/17/22 CT Chest. Also faxed 06/05/22 office visit, CT reports, operative report, discharge summary AND demographics. They will contact pt with appt date. Dr. Simental (Pulm) faxed referral for lung nodules seen on 04/17/22 CT Chest. Also faxed 06/05/22 office visit, CT reports, operative report, discharge summary AND demographics. They will contact pt with appt date. Dr. Trevino (Oncology) faxed referral for T1 AND left 10th rib sclerotic focus seen on 04/17/22 CT Chest. Also faxed 06/05/22 office visit, CT reports, operative report, discharge summary AND demographics. They will contact pt with appt date. [phone] Ramez Calle 06/11/2022 3:15 PM Signed Pt's daughter called and was informed of the referral information. Allergies As of Date: 06/09/2022 (No Known Allergies) Date Reviewed: 06/05/2022 Reviewed by: Taty Morillo LPN - Fully Assessed Reason for Visit: Referral Information [1563] Prescriptions as of 06/11/2022 - apixaban (ELIQUIS) 5 mg tab(s) Take 1 tablet by mouth twice daily. - dilTIAZem CD (CARDIZEM CD, CARTIA XT) 240 mg 24 hr capsule Take 1 capsule by mouth once daily. Hold for heart rate <60, SBP <100 - furosemide (LASIX) 20 mg tablet Take 1 tablet by mouth once daily for 3 days. - potassium chloride ER (KLOR-CON M10) 10 mEq tablet Take 1 tablet by mouth once daily. - atorvastatin (LIPITOR) 40 mg tablet Take 1 tablet by mouth daily at bedtime. - clopidogrel (PLAVIX) 75 mg tablet Take 1 tablet by mouth once daily. - metoprolol tartrate, short acting, (LOPRESSOR) 50 mg tablet Take 1 tablet by mouth every 8 hours. Hold for heart rate <60, SBP <100 - tamsulosin (FLOMAX) 0.4 mg Take 1 capsule by mouth once daily. - lisinopril (ZESTRIL) 10 mg tablet Take 1 tablet by mouth once daily. - albuterol HFA (PROVENTIL HFA, VENTOLIN HFA) 90 mcg/actuation inhaler Inhale 1 Puff as instructed every 4 hours as needed for wheezing/shortness of breath. - levothyroxine 25 mcg cap Take 25 mcg by mouth daily before breakfast. - carBAMazepine (TEGRETOL) 200 mg tablet Take 1 tablet by mouth three times daily. 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 to [facility]. He originally presented to [facility] 04/15/22 due to worsening chest pain. Initial EKG showed NSR without ST segment changes. HS Trop elevated initially at 2134 and peaked at 3350 per record review. Given HS Trop elevations, prompted patient to undergo Cardiac Cath, which showed MV CAD. Patient diagnosed with NSTEMI, started on Heparin gtt, and transferred to [facility] for CABG evaluation. Patient underwent CABG [...] home with his who also +COVID, with [facility] on 04/30/22, with order for lasix 20 mg daily and K replacement. To have BMP in 1 week. Chart reviewed. 05/03/22 patient's daughter called reporting pt with shortness of breath and was advised to go to ER. At [facility] per daughter, lasix increased to 40 [...] without new pain/injuries. Pt was discharged from [facility] 06/03/22. On encounter, pt reports doing well Fever/chills: denies Dizziness/lightheaded ness/syncope: denies Chest pain/palpitations/inc isional pain: denies Any drainage from site: denies SOB/cough: denies SOB, sometimes cough but nothing comes up, a lot less cough than last visit Activity/Ambulation/S tairs: increasing a little every day per daughter [...] days, THEN 1 tablet once daily. albuterol (more content not included)... Normal [facility] XR CHEST 2V FRONTAL/LATon XR CHEST 2V FRONTAL/LAT * * *Final Repor t* * * DATE OF EXAM: Jun 05 2022 1:53PM AKX [id number] - XR CHEST 2V FRONTAL/LAT / PROCEDURE REASON: S/P CABG x 3 * * * * Physician Interpretation * * * * EXAMINATION: CHEST RADIOGRAPH (2 VIEW FRONTAL and LATERAL) CLINICAL HISTORY: S/P CABG x 3 MQ: XC2_6 EXAM DATE/TIME: 06/05/2022 1:53 PM COMPARISON: Chest radiograph 05/18/2022 RESULT: Lines, tubes, and devices: None. Lungs and pleura: Similar left pleural effusion and adjacent opacities. No pneumothorax. Cardiomediastinal silhouette: Stable. Sternotomy. Bones and soft tissues: Mild degenerative changes. IMPRESSION: Similar small left pleural effusion and adjacent opacities. Sourcing Intern: ELIZA Transcribe Date/Time: Jun 09 2022 11:59A Dictated by : JAYDEN GRIFFITH MD This examination was interpreted and the report reviewed and electronically signed by: JAYDEN GRIFFTIH MD on Jun 09 2022 12:01PM EST [id number] Normal [facility] CNPNon 06-03-2022 CNPN Telephone (HCSIND) OLGA LINDSEY ([id number]) 1940 M Date Time Provider Department 06/03/22 CAROL NOBLES During your visit today, we recorded the following information about you: Carol Nobles RN 06/03/2022 12:33 PM Signed Good afternoon, Pt was discharged from home health today; goals have been met. He reported a fall that he had last week outside walking the dog-the dog wrapped the strap around him and he fell to the ground. He denies any injury, no new pain since the fall. Also; his daughter requests a referral to the [facility] for cardiology. The [place] office [place] far for them and he plans to do his cardiac rehab at [facility]. Thank you for following this home health pt. Allergies As of Date: 06/03/2022 (No Known Allergies) Date Reviewed: 05/26/2022 Reviewed by: Carol Nobles RN - Fully Assessed Reason for Visit: Patient Update [3594] Home Care [2193] Patient Question [2067] Prescriptions as of 06/03/2022 - atorvastatin (LIPITOR) 40 mg tablet Take 1 tablet by mouth daily at bedtime. - clopidogrel (PLAVIX) 75 mg tablet Take 1 tablet by mouth once daily. - metoprolol tartrate, short acting, (LOPRESSOR) 50 mg tablet Take 1 tablet by mouth every 8 hours. Hold for heart rate <60, SBP <100 - tamsulosin (FLOMAX) 0.4 mg Take 1 capsule by mouth once daily. - lisinopril (ZESTRIL) 10 mg tablet Take 1 tablet by mouth once daily. - apixaban (ELIQUIS) 5 mg tab(s) Take 1 tablet by mouth twice daily. - dilTIAZem CD (CARDIZEM CD, CARTIA XT) 240 mg 24 hr capsule Take 1 capsule by mouth once daily. Hold for heart rate <60, SBP <100 - furosemide (LASIX) 20 mg tablet Take 2 tablets by mouth once daily for 3 days, THEN 1 tablet once daily. - potassium chloride ER (KLOR-CON M10) 10 mEq tablet Take 2 tablets by mouth once daily for 3 days, THEN 1 tablet once daily. - albuterol HFA (PROVENTIL HFA, VENTOLIN HFA) 90 mcg/actuation inhaler Inhale 1 Puff as instructed every 4 hours as needed for wheezing/shortness of breath. - magnesium oxide (MAG-OX) 400 mg (241.3 mg magnesium) tablet Take 1 tablet by mouth once daily. - levothyroxine 25 mcg cap Take 25 mcg by mouth daily before breakfast. - carBAMazepine (TEGRETOL) 200 mg tablet Take 1 tablet by mouth three times daily. 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 Daughter states her and 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 have been playing phone tag. Daughter states she is trying to get the remaining 5 (five) medications that are going to [facility] to go to [facility] in [place]. Taty Morillo LPN May 27, 2022 2:19 PM Allergies As of Date: 05/27/2022 (No Known Allergies) Date Reviewed: 05/26/2022 Reviewed by: Carol Nobles RN - Fully Assessed Reason for Visit: Question [2484] Cmt: Daughter, Zoya Burgos, Order(s):atorvastatin (LIPITOR) 40 mg tabletTake 1 tablet by mouth daily at bedtime.Disp: 90 tabletRfl: 0 clopidogrel (PLAVIX) 75 mg tabletTake 1 tablet by mouth once daily.Disp: 90 tabletRfl: 3 metoprolol tartrate, short acting, (LOPRESSOR) 50 mg tabletTake 1 tablet by mouth every 8 hours. Hold for heart rate <60, SBP <100Disp: 90 tabletRfl: 0 tamsulosin (FLOMAX) 0.4 mgTake 1 capsule by mouth once daily.Disp: 90 capsuleRfl: 0 lisinopril (ZESTRIL) 10 mg tabletTake 1 tablet by mouth once daily.Disp: 90 tabletRfl: 0 Prescriptions as of 05/27/2022 - atorvastatin (LIPITOR) 40 mg tablet Take 1 tablet by mouth daily at bedtime. - clopidogrel (PLAVIX) 75 mg tablet Take 1 tablet by mouth once daily. - metoprolol tartrate, short acting, (LOPRESSOR) 50 mg tablet Take 1 tablet by mouth every 8 hours. Hold for heart rate <60, SBP <100 - tamsulosin (FLOMAX) 0.4 mg Take 1 capsule by mouth once daily. - lisinopril (ZESTRIL) 10 mg tablet Take 1 tablet by mouth once daily. - apixaban (ELIQUIS) 5 mg tab(s) Take 1 tablet by mouth twice daily. - dilTIAZem CD (CARDIZEM CD, CARTIA XT) 240 mg 24 hr capsule Take 1 capsule by mouth once daily. Hold for heart rate <60, SBP <100 - furosemide (LASIX) 20 mg tablet Take 2 tablets by mouth once daily for 3 days, THEN 1 tablet once daily. - potassium chloride ER (KLOR-CON M10) 10 mEq tablet Take 2 tablets by mouth once daily for 3 days, THEN 1 tablet once daily. - albuterol HFA (PROVENTIL HFA, VENTOLIN HFA) 90 mcg/actuation inhaler Inhale 1 Puff as instructed every 4 hours as needed for wheezing/shortness of breath. - acetaminophen (TYLENOL) 500 mg tablet Take 2 tablets by mouth every 6 hours as needed for pain. - magnesium oxide (MAG-OX) 400 mg (241.3 mg magnesium) tablet Take 1 tablet by mouth once daily. - levothyroxine 25 mcg cap Take 25 mcg by mouth daily before breakfast. - carBAMazepine (TEGRETOL) 200 mg tablet Take 1 tablet by mouth three times daily. 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 CLOPIDOGREL 75 MG TABLET 90 t* 3 05/27/2022 05/27/2023 Route: ORAL Sig: Take 1 tablet by mouth once daily. METOPROLOL TARTRATE 50 MG TABLET 90 t* 0 05/27/2022 06/26/2022 Route: ORAL Sig: Take 1 tablet by mouth every 8 hours. Hold for heart rate <60, SBP <100 TAMSULOSIN 0.4 MG CAPSULE 90 c* 0 05/27/2022 08/25/2022 Route: ORAL Sig: Take 1 capsule by mouth once daily. LISINOPRIL 10 MG TABLET 90 t* 0 05/27/2022 08/25/2022 Route: ORAL Sig: Take 1 tablet by mouth once daily. Medications Discontinued During This Encounter Prescriptions - atorvastatin (LIPITOR) 40 mg tablet (Discontinued) Take 1 tablet by mouth daily at bedtime. - lisinopril (ZESTRIL) 10 mg tablet (Discontinued) Take 1 tablet by mouth once daily. - tamsulosin (FLOMAX) 0.4 mg (Discontinued) Take 1 capsule by mouth once daily. - metoprolol tartrate, short acting, (LOPRESSOR) 50 mg tablet (Discontinued) Take 1 tablet by mouth every 8 hours. Hold for heart rate <60, SBP <100 - clopidogrel (PLAVIX) 75 mg tablet (Discontinued) Take 1 tablet by mouth once daily. Encounter Status:Closed by MAGI PULLIAM on 05/27/22 [facility] 05-25-2022 [facility] Telephone (LAMBERTO) OLGA LINDSEY ([id number]) 1940 M Date Time Provider Department 05/25/22 JAVIER ALEX During your visit today, we recorded the following information about you: Taty Morillo LPN 05/25/2022 9:32 AM Signed Daughter, Zoya Burgos, , calling in and left message. States she would like to speak with someone regarding patient's medications to make sure ALL are going to be sent to [facility]. Daughter states that only a couple have been transferred. Taty Morillo LPN May 25, 2022 9:30 AM Teresita Bernal APRN.FOUNTAIN WORKER 05/25/2022 3:08 PM Signed Returned call to patient's daughter. Left VM and asked for return call, clarifying which medications she was expecting to have sent to [facility]. Allergies As of Date: 05/25/2022 (No Known Allergies) Date Reviewed: 05/21/2022 Reviewed by: Little Marquis PT - Fully Assessed Reason for Visit: Question [0064] Cmt: Daughter, Zoya Burgos, Prescriptions as of 05/25/2022 - apixaban (ELIQUIS) 5 mg tab(s) Take 1 tablet by mouth twice daily. - dilTIAZem CD (CARDIZEM CD, CARTIA XT) 240 mg 24 hr capsule Take 1 capsule by mouth once daily. Hold for heart rate <60, SBP <100 - furosemide (LASIX) 20 mg tablet Take 2 tablets by mouth once daily for 3 days, THEN 1 tablet once daily. - potassium chloride ER (KLOR-CON M10) 10 mEq tablet Take 2 tablets by mouth once daily for 3 days, THEN 1 tablet once daily. - albuterol HFA (PROVENTIL HFA, VENTOLIN [...] for heart rate <60, SBP <100 - magnesium oxide (MAG-OX) 400 mg (241.3 mg magnesium) tablet Take 1 tablet by mouth once daily. - clopidogrel (PLAVIX) 75 mg tablet Take 1 tablet by mouth once daily. - levothyroxine 25 mcg cap Take 25 mcg by mouth daily before breakfast. - carBAMazepine (TEGRETOL) 200 mg tablet Take 1 tablet by mouth three times daily. 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 Requesting refill of diltiazem to be called in to [facility]. States request made however [facility] states they didn't receive medication refill request. Taty Morillo LPN May 18, 2022 1:12 PM Taty Morillo LPN 05/19/2022 9:45 AM Signed This Nurse contacted [facility]. This medication is on HOLD due to too early to fill. Insurance will contact cover since it had already been filled. Will be ready May 25, 2022 This Nurse contacted daughter, Kaitlyn Burgos, [phone], and notified. Taty Morillo LPN May 19, 2022 9:44 AM Teresita Bernal APRN.FOUNTAIN WORKER (4:52 PM) Can you please call pharmacy and see what the situation is? Looks like I sent this to [facility] on 05/15 for 30 day supply, it says received, not sure why I need to ?resend? Thanks! Teresita Allergies As of Date: 05/18/2022 (No Known Allergies) Date Reviewed: 05/15/2022 Reviewed by: Carol Nobles RN - Fully Assessed Reason for Visit: Orders [681] Cmt: Prescription for Diltiazem Request to contact [Other] Cmt: 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 request to contact pharmacy Prescriptions as of 05/19/2022 - apixaban (ELIQUIS) 5 mg tab(s) Take 1 tablet by mouth twice daily. - dilTIAZem CD (CARDIZEM CD, CARTIA XT) 240 mg 24 hr capsule Take 1 capsule by mouth once daily. Hold for heart rate <60, SBP <100 - furosemide (LASIX) 20 mg tablet Take [...] for heart rate <60, SBP <100 - magnesium oxide (MAG-OX) 400 mg (241.3 mg magnesium) tablet Take 1 tablet by mouth once daily. - clopidogrel (PLAVIX) 75 mg tablet Take 1 tablet by mouth once daily. - levothyroxine 25 mcg cap Take 25 mcg by mouth daily before breakfast. - carBAMazepine (TEGRETOL) 200 mg tablet Take 1 tablet by mouth three times daily. 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 She stated that she gave her sister Yuridia FOOD TRUCK CATERER'S name and phone number to call back. Kaitlyn statd she could talk with FOOD TRUCK CATERER regarding community resources. FOOD TRUCK CATERER educated the pt.'s daughter on PASSPORT and she stated that her sister looked into that and the pt. and his are not low income. FOOD TRUCK CATERER asked her if she wanted information on Agencies to hire an Aide/ Homemaker and she does. She stated she would like FOOD TRUCK CATERER to mail information to the pt.'s home and Email her sister Yuridia the information. FOOD TRUCK CATERER stated she can call her sister Yuridia and inform her FOOD TRUCK CATERER is Emailing her information. FOOD TRUCK CATERER mailed and Emailed a list of Agencies to hire an Aide/Homemaker, list of Home Delivered Meal Providers, information on [employer] [facility] Agency on Aging for PASSPORT and the Aging and Disability Resource Center, [employer] information and referral, information on [facility] Transit and information on [employer] [facility] for transportation to medical appointments. Thank You, Allergies As of Date: 05/18/2022 (No Known Allergies) Date Reviewed: 05/15/2022 Reviewed by: Carol Nobles RN - Fully Assessed Reason for Visit: Home Care [4073] Prescriptions as of 05/18/2022 - apixaban (ELIQUIS) 5 mg tab(s) Take 1 tablet by mouth twice daily. - dilTIAZem CD (CARDIZEM CD, CARTIA XT) 240 mg 24 hr capsule Take 1 capsule by mouth once daily. Hold for heart rate <60, SBP <100 - furosemide (LASIX) 20 mg tablet Take [...] for heart rate <60, SBP <100 - magnesium oxide (MAG-OX) 400 mg (241.3 mg magnesium) tablet Take 1 tablet by mouth once daily. - clopidogrel (PLAVIX) 75 mg tablet Take 1 tablet by mouth once daily. - levothyroxine 25 mcg cap Take 25 mcg by mouth daily before breakfast. - carBAMazepine (TEGRETOL) 200 mg tablet Take 1 tablet by mouth three times daily. 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 Slightly improved from the prior study. Basal atelectasis on the left has slightly improved. No pneumothorax. No new significant collapse or consolidation Cardiomediastinal silhouette: Stable cardiomediastinal silhouette. Bones and soft tissues: Unremarkable. IMPRESSION: Mild improvement in fluid and atelectasis Sourcing Intern: ELIZA Transcribe Date/Time: May 18 2022 11:35A Dictated by : DEMETRIA LEE MD This examination was interpreted and the report reviewed and electronically signed by: DEMETRIA LEE MD on May 18 2022 11:37AM EST [id number] N Normal [facility] XR Chest PA and Lateralon IMPRESSION: Mild improvement in fluid and atelectasis Sourcing Intern: [facility] Transcribe Date/Time: May 18 2022 11:35A Dictated by : DEMETRIA LEE MD This examination was interpreted and the report reviewed and electronically signed by: DEMETRIA LEE MD on May 18 2022 11:37AM EST DIVISION OF RADIOLOGY * * *Final Report* * * DATE OF EXAM: May 18 2022 10:37AM WOX [id number] - XR CHEST 2V FRONTAL/LAT / PROCEDURE REASON: S/P CABG x 3 * * * * Physician Interpretation * * * * EXAMINATION: CHEST RADIOGRAPH (2 VIEW FRONTAL & LATERAL) CLINICAL HISTORY: S/P CABG x 3 MQ: XC2_6 EXAM DATE/TIME: 05/18/2022 10:37 AM COMPARISON: 05/11/2022 RESULT: Lines, tubes, and devices: Mediastinal wires are in place Lungs and pleura: Bilateral pleural fluid collections, left greater than right. Slightly improved from the prior study. Basal atelectasis on the left has slightly improved. No pneumothorax. No new significant collapse or consolidation Cardiomediastinal silhouette: Stable cardiomediastinal silhouette. Bones and soft tissues: Unremarkable. DIVISION OF RADIOLOGY Provider, Lara Burden - 05/18/2022 * * *Final Report* * * DATE OF EXAM: May 18 2022 10:37AM WOX [id number] - XR CHEST 2V FRONTAL/LAT / PROCEDURE REASON: S/P CABG x 3 * * * * Physician Interpretation * * * * EXAMINATION: CHEST RADIOGRAPH (2 VIEW FRONTAL & LATERAL) CLINICAL HISTORY: S/P CABG x 3 MQ: XC2_6 EXAM DATE/TIME: 05/18/2022 10:37 AM COMPARISON: 05/11/2022 RESULT: Lines, tubes, and devices: Mediastinal wires are in place Lungs and pleura: Bilateral pleural fluid collections, left greater than right. Slightly improved from the prior study. Basal atelectasis on the left has slightly improved. No pneumothorax. No new significant collapse or consolidation Cardiomediastinal silhouette: Stable cardiomediastinal silhouette. Bones and soft tissues: Unremarkable. IMPRESSION IMPRESSION: Mild improvement in fluid and atelectasis Sourcing Intern: PSCB Transcribe Date/Time: May 18 2022 11:35A Dictated by : DEMETRIA LEE MD This examination was interpreted and the report reviewed and electronically signed by: DEMETRIA LEE MD on May 18 2022 11:37AM EST [facility] Radiology Study observation (narrative) Aminta johnson [facility] XR Chest PA and LateralOrder ed By: [facility] Provider on 05-18-2022 [facility] 05-15-2022 CNPN Telephone (LAMBERTO) OLGA LINDSEY ([id number]) 1940 M Date Time Provider Department 05/15/22 TERESITA BERNAL During your visit today, we recorded the following information about you: Teresita Bernal APRN.FOUNTAIN WORKER 05/15/2022 1:04 PM Signed Pt seen earlier this week by myself in office at which time CXR final read had not yet been done. Reviewed CXR results with Dr. Alex this morning from 05/11/22 showing: IMPRESSION: Worsened LEFT lung base includes increase in size of small/moderate pleural effusion with adjacent infiltrate or atelectasis. Correlate with clinical symptoms. Follow-up exam is recommended. On my exam 05/11/22, pt was afebrile, saturating well on room air, clear lungs with intermittent dry cough at which time gave order to increase lasix x 3 days with K and repeat CXR early next week. Call placed to patient today with no answer. Called pt's daughter, Kaitlyn, who reports pt doing very well, feeling better and better everyday, improving, but tired. No fever, pulse ox has been > 92% on room air, cough improving, completed additional lasix yesterday and resumed previous daily dose today. Kaitlyn states they plan on having the repeat CXR done early next week. I let them know I'd look out for the results and we'll go from there but to please call with any questions/concerns which she verbalized understanding. Kaitlyn asked for refills on eliquis and diltiazem - sent. Allergies As of Date: 05/15/2022 (No Known Allergies) Date Reviewed: 05/14/2022 Reviewed by: Jessica Burrell OT/L - Fully Assessed Reason for Visit: Patient Update [1234] Refill Request [94] Primary Visit Diagnosis:Atrial fibrillation, unspecified type (HCC) [I48.91] Order(s):apixaban (ELIQUIS) 5 mg tab(s)Take 1 tablet by mouth twice daily.Disp: 60 tabletRfl: 0 dilTIAZem CD (CARDIZEM CD, CARTIA XT) 240 mg 24 hr capsuleTake 1 capsule by mouth once daily. Hold for heart rate <60, SBP <100Disp: 30 capsuleRfl: 0 Prescriptions as of 05/15/2022 - apixaban (ELIQUIS) 5 mg tab(s) Take 1 tablet by mouth twice daily. - dilTIAZem CD (CARDIZEM CD, CARTIA XT) 240 mg 24 hr capsule Take 1 capsule by mouth once daily. 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 DILTIAZEM SR 240 MG 24 HR CAP 30 c* 0 05/15/2022 06/14/2022 Route: ORAL Sig: Take 1 capsule by mouth once daily. Hold for heart rate <60, SBP <100 Medications Discontinued During This Encounter Prescriptions - dilTIAZem CD (CARDIZEM CD, CARTIA XT) 240 mg 24 hr capsule (Discontinued) Take 1 capsule by mouth once daily. Hold for heart ra (more content not included)... Normal [facility] CNPMendy 05-14-2022 [facility] Telephone (LAMBERTO) OLGA LINDSEY ([id number]) 1940 M Date Time Provider Department 05/14/22 JAVIER ALEX During your visit today, we recorded the following information about you: Taty Morillo LPN 05/14/2022 9:54 AM Signed Kaitlyn Burgos, , notified per below. Taty Morillo LPN May 14, 2022 9:54 AM Teresita Bernal APRN.RICHARD Received: Today Hi! Can you please let the patient know his labs from 05/12/22 are unremarkable, no new orders from us at this point in time. Thanks! Allergies As of Date: 05/14/2022 (No Known Allergies) Date Reviewed: 05/12/2022 Reviewed by: Carol Nobles RN - Fully Assessed Reason for Visit: Request to call [Other] Cmt: 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 requests to contact daughter, Kaitlyn Burgos, regarding patient's recent lab work. 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 Cardiac Rehab phone [phone] fax [phone] Orders, 05/11/22 office encounter AND 04/20/22 operative report faxed on 05/13/22 Allergies As of Date: 05/13/2022 (No Known Allergies) Date Reviewed: 05/12/2022 Reviewed by: Carol Nobles, RN - Fully Assessed Reason for Visit: Cardiac Rehab [4191] Cmt: Referral to [facility] Prescriptions as of 05/13/2022 - furosemide (LASIX) 20 mg tablet Take [...] apixaban and carBAMazepine, clopidogrel and apixaban - PER Liz Pulliam APRN OK to continue Problem List As Of Date 05/13/2022 Noted Resolved Essential hypertension, benign [I10] 08/30/2013 Hyperlipidemia [E78.5] 08/30/2013 Closed nondisplaced fracture of styloid process*03/25/2015 10/24/2015 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] Tremor [R25.1] 10/24/2015 Meningioma (HCC) [D32.9] 06/02/2018 NSTEMI (non-ST elevated myocardial infarction) *04/17/2022 04/30/2022 Obesity, Class I, BMI 30-34.9 [E66.9] 04/17/2022 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 LABCLIA [id number] [place] [address] [place] Calcium [Mass/Vol] 9.7 mg/dL Normal 8.5-10.2 [facility] Comment on above: Order Comment: Speci men Type: BLOOD SPECIMENOrdering Facility: [facility] Address: [address] [place] [address], [place] [address] Performed By: #### 2 4321-2 ####[facility] LABCLIA [id number] [place] [address] [place] Chloride [Moles/Vol] 101 mmol/L Normal 97-105 [facility] Comment on above: Order Comment: Speci men Type: BLOOD SPECIMENOrdering Facility: [facility] Address: [address] [place] [address], [place] [address] Performed By: #### 2 4321-2 ####[facility] LABCLIA [id number] [facility] [place] [address] [place] CO2 [Moles/Vol] 28 mmol/L Normal 22-30 [facility] Comment on above: Order Comment: Jaime howell Type: BLOOD SPECIMENOrdering Facility: [facility] Address: [address] [place] [address], [place] [address] Performed By: #### 2 4321-2 ####[facility] LABCLIA [id number] [place] [address] [place] Creatinine [Mass/Vol] 0.72 mg/dL Low 0.73-1.22 [facility] Comment on above: Order Comment: Jaime howell Type: BLOOD SPECIMENOrdering Facility: [facility] Care Services Address: [address] [place] [address], [place] [address] Performed By: #### 2 4321-2 ####[facility] LABCLIA [id number] [place] [address] [place] [facility] ESTIMATED GLOMERULAR FILTRATION RATE 92 mL/min/1.73m??? Normal >=60 [facility] Comment on above: Order Comment: Jaime howell Type: BLOOD SPECIMENOrdering Facility: [facility] Address: [address] [place] [address], [place] [address] Result Comment: Christiane mated Glomerular Filtration Rate (eGFR) is calculated using the 2020 CKD-EPI creatinine equation. This equation utilizes serum creatinine, sex, and age as parameters. The creatinine assay has traceable calibration to isotope dilution-mass spectrometry. Refer to KDIGO guidelines for clinical interpretation. In patients with unstable renal function, e.g. those with acute kidney injury, the eGFR may not accurately reflect actual GFR. Performed By: #### 2 4321-2 ####[facility] LABCLIA [id number] [place] [address] [place] Glucose [Mass/Vol] 95 mg/dL Normal 74-99 [facility] Comment on above: Order Comment: Jaime howell Type: BLOOD SPECIMENOrdering Facility: [facility] Address: [address] [place] [address], [place] [id number] Result Comment: The [place] Diabetes Association (ADA) provides guidance for cutoff values for fasting glucose and random glucose. The ADA defines fasting as no caloric intake for at least 8 hours. Fasting plasma glucose results between 100 to 125 mg/dL indicate increased risk for diabetes (prediabetes). Fasting plasma glucose results greater than or equal to 126 mg/dL meet the criteria for diagnosis of diabetes. In the absence of unequivocal hyperglycemia, results should be confirmed by repeat testing. In a patient with classic symptoms of hyperglycemia or hyperglycemic crisis, random plasma glucose results greater than or equal to 200 mg/dL meet the criteria for diagnosis of diabetes. Reference: Standards of Medical Care in Diabetes 2016, [place] Diabetes Association. Diabetes Care. 2016.39(Suppl 1). Performed By: #### 2 4321-2 ####[facility] [employer] LABCLIA [id number] [place] [address] [place] Potassium [Moles/Vol] 3.7 mmol/L Normal 3.7-5.1 [facility] Comment on above: Order Comment: Jaime howell Type: BLOOD SPECIMENOrdering Facility: [facility] Address: [address] [place] [address], [place] [address] Performed By: #### 2 1-2 ####[facility] [employer] LABCLIA [id number] [place] [address] [place] Sodium [Moles/Vol] 138 mmol/L Normal 136-144 [facility] Comment on above: Order Comment: Jaime howell Type: BLOOD SPECIMENOrdering Facility: [facility] Address: [address] [place] [address], [place] [address] Performed By: #### 2 1-2 ####[facility] [employer] LABCLIA [id number] [place] [address] [place] Urea nitrogen [Mass/Vol] 21 mg/dL Normal 9-24 [facility] Comment on above: Order Comment: Jaime howell Type: BLOOD SPECIMENOrdering Facility: [facility] Address: [address] [place] [address], [place] [address] Performed By: #### 2 4321-2 ####[facility] [employer] LABCLIA [id number] [place] [address] [place] CBC panel Auto (Bld)on 05-12 Erythrocyte distribution width (RBC) [Ratio] 15.7 % High 11.5-15.0 [facility] Comment on above: Order Comment: Speci men Type: BLOOD SPECIMENOrdering Facility: [facility] Address: [address] [place] [address], [place] [id number] Performed By: #### 5 8410-2 ####[facility] [place] LABCLIA [id number] [facility] [place] [address] [facility] Hematocrit (Bld) [Volume fraction] 32.6 % Low 39.0-51.0 [facility] Comment on above: Order Comment: Speci men Type: BLOOD SPECIMENOrdering Facility: [facility] Address: [address] [place] [address], [place] [id number] Performed By: #### 5 8410-2 ####[facility] [place] LABCLIA [id number] [facility] [place] [address] [facility] Hemoglobin (Bld) [Mass/Vol] 10.4 g/dL Low 13.0-17.0 [facility] Comment on above: Order Comment: Speci men Type: BLOOD SPECIMENOrdering Facility: [facility] Address: [address] [place] [address], [place] [address] Performed By: #### 5 8410-2 ####[facility] [place] LABCLIA [id number] [facility] [place] [address] [place] MCH (RBC) [Entitic mass] 30.1 pg Normal 26.0-34.0 [facility] Comment on above: Order Comment: Speci men Type: BLOOD SPECIMENOrdering Facility: [facility] Address: [address] [place] [address], [place] [id number] Performed By: #### 5 8410-2 ####[facility] [place] LABCLIA [id number] [facility] [place] [address] [place] MCHC (RBC) [Mass/Vol] 31.9 g/dL Normal 30.5-36.0 [facility] Comment on above: Order Comment: Speci men Type: BLOOD SPECIMENOrdering Facility: [facility] Address: [address] [place] [address], [place] [id number] Performed By: #### 5 8410-2 ####[facility] [place] LABCLIA [id number] [place] [address] [place] MCV (RBC) [Entitic vol] 94.5 fL Normal 80.0-100.0 [facility] Comment on above: Order Comment: Speci men Type: BLOOD SPECIMENOrdering Facility: [facility] Address: [address] [place] [address], [place] [address] Performed By: #### 5 8410-2 ####[facility] [place] LABCLIA [id number] [place] [address] [place] [facility] Platelet mean volume (Bld) [Entitic vol] 8.7 fL Low 9.0-12.7 [facility] Comment on above: Order Comment: Speci men Type: BLOOD SPECIMENOrdering Facility: [facility] Address: [address] [place] [address], [place] [address] Performed By: #### 5 8410-2 ####[facility] [place] LABCLIA [id number] [place] [address] [facility] Platelets (Bld) [#/Vol] 336 10*3/uL Normal 150-400 [facility] Comment on above: Order Comment: Speci men Type: BLOOD SPECIMENOrdering Facility: [facility] Address: [address] [place] [address], [place] [address] Performed By: #### 5 8410-2 ####[facility] [place] LABCLIA [id number] [place] [address] [place] RBC (Bld) [#/Vol] 3.45 10*6/uL Low 4.20-6.00 [facility] Comment on above: Order Comment: Speci men Type: BLOOD SPECIMENOrdering Facility: [facility] Address: [address] [place] [address], [place] [address] Performed By: #### 5 8410-2 ####[facility] [place] LABCLIA [id number] [place] [address] [place] WBC (Bld) [#/Vol] 6.07 10*3/uL Normal 3.70-11.00 [facility] Comment on above: Order Comment: Speci men Type: BLOOD SPECIMENOrdering Facility: [facility] Address: [address] [place] [address], [place] [id number] Performed By: #### 5 8410-2 ####[facility] [place] LABCLIA [id number] [place] [address] [place] CNOVon 05-11-2022 CNOV Office Visit (AGVASACC) OLGA LINDSEY ([id number]) 1940 M Date Time Provider Department 05/11/22 2:00 PM TERESITA BERNAL During your visit today, we recorded the following information about you: Pulse Blood pressure Weight Height 119/minute 104/60 92.2 kg 1.778 m Teresita Bernal APRN.[employer] WORKER 05/11/2022 3:38 PM Signed HPI: This is an 82 year old male with a PMHx of HTN, Trigeminal Neuralgia, resting tremor and HLD who presented as a transfer from [facility] to [facility]. He originally presented to [place] 04/15/22 due to worsening chest pain. Initial EKG showed NSR without ST segment changes. HS Trop elevated initially at 2134 and peaked at 3350 per record review. Given HS Trop elevations, prompted patient to undergo Cardiac Cath, which showed MV CAD. Patient diagnosed with NSTEMI, started on Heparin gtt, and transferred to [facility] for CABG evaluation. Patient underwent CABG [...] home with his who also +COVID, with [facility] on 04/30/22, with order for lasix 20 mg daily and K replacement. To have BMP in 1 week. Chart reviewed. 05/03/22 patient's daughter called reporting pt with shortness of breath and was advised to go to ER. At [facility] per daughter, lasix increased to 40 [...] that I'm in no pain Fever/chills: denies Dizziness/lightheaded ness/syncope: dizzy when I first get up Chest pain/palpitations/inc isional pain: denies Any drainage from site: denies SOB/cough: coughing all the time, nothing comes up, gets SOB with coughing, better when sitting up per daughter Activity/Ambulation/S tairs: walking with walker, not short of breath Appetite: terrible, daughters state pt has no problem eating [...] Take 1 tablet by mouth once daily. tamsulo (more content not included)... Normal [facility] [place] 05-11-2022 MICHELLE Telephone (HCSIND) OLGA LINDSEY ([id number]) 1940 M Date Time Provider Department 05/11/22 SELF HCSIND During your visit today, we recorded the following information about you: Omer Pineda 05/11/2022 1:01 PM Signed There has been a delay in service for Home Care OT Evaluation for this patient due to schedule conflict. Patient was notified on 05/11/22. Thank you for this referral, please contact us with any questions. Omer Pineda Allergies As of Date: 05/11/2022 (No Known Allergies) Date Reviewed: 05/08/2022 Reviewed by: Alicia Saldivar RN - Fully Assessed Reason for Visit: Home Care [4073] Cmt: Delay in Service OT Prescriptions as of 05/11/2022 - guaiFENesin (MUCINEX) 600 mg 12 hr tablet Take 600 mg by mouth twice daily. - albuterol HFA (PROAIR HFA) 90 mcg/actuation inhaler Inhale 1 Puff as instructed every 4 hours as needed for wheezing/shortness of breath. - potassium chloride ER (KLOR-CON M10) 10 mEq tablet Take 1 tablet by mouth once daily for 14 days. - furosemide (LASIX) 20 mg tablet Take 1 tablet by mouth once daily for 14 days. 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 SOB (shortness of breath) . Comparison: 04/27/2022 RESULT: Lines, tubes, and devices: none Lungs and pleura: Worsened appearance at LEFT lung base includes increase in size of a small/moderate LEFT pleural effusion with adjacent infiltrate or atelectasis. Possible trace RIGHT pleural effusion again seen. Cardiomediastinal silhouette: Sternotomy wires and cardiac enlargement again seen. Other: - IMPRESSION: Worsened LEFT lung base includes increase in size of small/moderate pleural effusion with adjacent infiltrate or atelectasis. Correlate with clinical symptoms. Follow-up exam is recommended. Sourcing Intern: ELIZA Transcribe Date/Time: May 12 2022 11:31A Dictated by : GEMA MAZARIEGOS MD This examination was interpreted and the report reviewed and electronically signed by: GEMA MAZARIEGOS MD on May 12 2022 11:33AM EST [id number] N Normal [facility] 05-05-2022 CNPN Telephone (AGVASACC) OLGA LINDSEY ([id number]) 1940 M Date Time Provider Department 05/05/22 JAVIER ALEXACC During your visit today, we recorded the following information about you: Taty Morillo LPN 05/05/2022 1:14 PM Signed Daughter, Kaitlyn Burgos, requesting a return call from 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 regarding questions on Discharge and why being referred to nurses director? Requesting return call to: [phone]. Taty Morillo LPN May 05, 2022 1:14 PM Magi Pulliam APRN.[employer]OUNTAIN WORKER 05/05/2022 4:59 PM Signed Called Kaitlyn back and she stated he went to [facility] on Wednesday for SOB. Seen and released and discharged to home from ER. She states they increased the lasix dose for two days to 60 mg once daily and then he is now back to his prescribed homegoing dose of 20 mg once daily. They also added albuterol, and mucinex. No fevers. Mild cough, now more productive. Weights have been 216.4, 211.4, 209.2, steadily coming down. Leg edema improving. (Reported dry weight 216 lbs) She inquired about mention of cardiology follow up in 6 weeks. I explained that that was the protocol, and that after a few visits he would be discharged from our office and recommended close follow up. Seen by Dr. Smith in hospital consultation. Offfice number provided and she will call to set up appt. Will order CXR for him to get on Wednesday prior to follow up with 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 at 1400. Advised to call us If worsening SOB/CP, weight gain 3+ lbs in a day or worsening edema. Will call in refill of lasix 20 mg once daily. Will reach out to [facility] to drawn blood work this week. Pt has not been seen by them yet. Magi Pulliam APRN.FOUNTAIN WORKER Allergies As of Date: 05/05/2022 (No Known Allergies) Date Reviewed: 04/30/2022 Reviewed by: Lissette Bay APRN.FOUNTAIN WORKER - Fully Assessed Reason for Visit: Question [8223] Cmt: Daughter, Kaitlyn Burgos, asking for return call Primary Visit Diagnosis:SOB (shortness of breath) [R06.02] Order(s):XR CHEST 2V FRONTAL/LAT [[id number]] Order #: [id number] FUTURE potassium chloride ER (KLOR-CON M10) 10 mEq tabletTake 1 tablet by mouth once daily for 14 days.Disp: 14 tabletRfl: 0 furosemide (LASIX) 20 mg tabletTake 1 tablet by mouth once daily for 14 days.Disp: 14 tabletRfl: 0 Prescriptions as of 05/06/2022 - potassium chloride ER (KLOR-CON M10) 10 mEq tablet Take 1 tablet by mouth once daily for 14 days. - furosemide (LASIX) 20 mg tablet Take 1 tablet by mouth once daily for 14 days. 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 FUROSEMIDE 20 MG TABLET 14 t* 0 05/05/2022 05/19/2022 Route: ORAL Sig: Take 1 tablet by mouth once daily for 14 days. Medications Discontinued During This Encounter Prescriptions - furosemide (LASIX) 20 mg tablet (Discontinued) Take 1 tablet by mouth once daily for 7 days. - potassium chloride ER (KLOR-CON M10) 10 mEq tablet (Discontinued) Take 1 tablet by mouth once daily for 7 days. Encounter Status:Closed by TATY MORILLO on 05/06/22 Normal [facility] Absolute lymphocyte countOrd ered By: Toya Lazcano on 05-03-2022 Lymphocytes Auto (Unsp spec) [#/Vol] 1.29 10*3/uL 0.83-4.51 [facility] Basophil percentageOrdered B y: Toya Lazcano on 05-03-2022 Basophils/100 WBC (Bld) 0.4 % 0-1 [facility] Chloride [Moles/Vol] 105 mmol/L 98-107 [facility] Eosinophils/100 WBC (Bld) 0.7 % 0-5 [facility] Glucose [Mass/Vol] 116 mg/dL 74-106 [facility] Comment on above: Fasting Glucose resu lt from 100 to 125 mg/dL suggests IMPAIRED HOMEOSTASIS per A.D.A. criteria. Neutrophils (Bld) [#/Vol] 3.7 10*3/uL 2.0-7.7 [facility] Neutrophils/100 WBC (Bld) 66.5 % 47-70 [facility] Potassium [Moles/Vol] 4.2 mmol/L 3.5-5.1 [facility] Sodium [Moles/Vol] 137 mmol/L 136-145 [facility] WBC (Bld) [#/Vol] 5.6 10*3/uL 4.4-11.0 [facility] Blood erythrocytes count (nu mber/volume)Ordered By: Toya Lazcano on 05-03-2022 RBC (Bld) [#/Vol] 3.35 10*6/uL 4.6-6.2 [facility] Blood hemoglobin measurement (mass/volume)Ordered By: Toya Lazcano on 05-03-2022 Hemoglobin (Bld) [Mass/Vol] 10.1 g/dL 13.0-16.5 [facility] Blood lymphocytes/100 leukoc ytesOrdered By: Toya Lazcano on 05-03-2022 Lymphocytes/100 WBC (Bld) 23.0 % 19-41 [facility] Blood monocytes/100 leukocyt esOrdered By: Toya Lazcano on 05-03-2022 Monocytes/100 WBC (Bld) 8.9 % 0-10 [facility] Blood platelet mean volumeOr dered By: Toya Lazcano on 05-03-2022 Platelet mean volume (Bld) [Entitic vol] 8.5 fL 6.2-12.0 [facility] OLGA LINDSEY ([id number]) 1940 M Date Time Provider Department 05/03/22 GEMA COX [facility] During your visit today, we recorded the following information about you: Gema Cox MD 05/03/2022 10:58 AM Signed Patient's daughter says he is having difficult time catching his breath. She plans on taking him to nearest ER and was advised to consider calling 911. Recommended not delaying at all. Allergies As of Date: 05/03/2022 (No Known Allergies) Date Reviewed: 04/30/2022 Reviewed by: Lissette Bay APRN.[facility] - Fully Assessed Reason for Visit: Returning Patient's Call [[id number]] Cmt: Paged by answering service and returned call spoke with daughter 05/03/2022 1050 am. Prescriptions as of 05/03/2022 - acetaminophen (TYLENOL) 500 mg tablet Take [...] times daily. 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] 04/30/2022 Encounter Status:Closed by GEMA COX on 05/03/22 Normal [facility] Determination of erythrocyte mean corpuscular volume (MCV)Ordered By: Toya Lazcano on 05-03-2022 MCV (RBC) [Entitic vol] 94.3 fL 80-94 [facility] Hematocrit Auto (Bld) [Volum e fraction]Ordered By: Toya Lazcano on 05-03-2022 Hematocrit (Bld) [Volume fraction] 31.6 % 40-54 [facility] - Chemistry and C hemistry - challengeOrdered By: Toya Lazcano on 05-03-2022 CO2 [Moles/Vol] 29.0 mmol/L 21.0-32.0 [facility] Urea nitrogen/Creatinine [Mass ratio] 25.7 mg/mg 10-20 [facility] - Chemistry and C hemistry - challengeOrdered By: Dr. Garcia on 05-03-2022 Natriuretic peptide B (Bld) [Mass/Vol] 434.7 pg/mL 0-100 [facility] - Hematology and Cell countsOrdered By: Toya Lazcano on 05-03-2022 Erythrocyte distribution width (RBC) [Entitic vol] 49.5 fL 35.1-43.9 [facility] Erythrocyte distribution width (RBC) [Ratio] 14.6 % 11.6-14.6 [facility] Immature granulocytes/100 WBC (Bld) 0.500 % 0.0-0.9 [facility] Comment on above: IG% - Immature Granu locytes (promyelocytes, myelocytes and metamyelocytes) > 1% indicates that a LEFT SHIFT is Present. MCH (RBC) [Entitic mass] 30.1 pg 27.0-32.0 [facility] Nucleated RBC/100 WBC (Bld) [Ratio] 0 % 0-5 [facility] MCHC Auto (RBC) [Mass/Vol]Or dered By: Toya Lazcano on 05-03-2022 MCHC (RBC) [Mass/Vol] 32.0 g/dL 32-36 [facility] No Panel InformationOrdered By: Toya Lazcano on 05-03-2022 Troponin I High Sensitivity 45 pg/mL 3.0-78.0 [facility] Comment on above: Please Note: New Jennifer t Units and Gender Specific Reference Ranges. For more information see Policy Stat Procedure Idabel High Sensitivity Troponin (TNIH) and attachments. Estimated GFR (MDRD) Amer 123 mL/min >60 [facility] Comment on above: GFR Calc Estimated GFR (MDRD) Non-Af Amer 102 mL/min >60 [facility] Comment on above: Non- GFR Calc Platelets bldOrdered By: Jarvis Lazcano on 05-03-2022 Platelets (Bld) [#/Vol] 212 10*3/uL 150-450 [facility] Serum or plasma calcium betty urement (mass/volume)Ordered By: Toya Lazcano on 05-03-2022 Calcium [Mass/Vol] 8.9 mg/dL 8.5-10.1 [facility] Serum or plasma creatinine m easurement (mass/volume)Ordered By: Toya Lazcano on 05-03-2022 Creatinine [Mass/Vol] 0.78 mg/dL 0.70-1.30 [facility] Comment on above: The validity of the calculated GFR & GFRAA in patients over 70 years has not been determined. Clinical correlation is essential. Serum or plasma urea nitroge n measurement (mass/volume)Ordered By: Toya Lazcano on 05-03-2022 Urea nitrogen [Mass/Vol] 20 mg/dL 7-18 [facility] Thin prep Papanicolaou smear with manual screeningOrdered By: Toya Lazcano on 05-03-2022 Thin prep Papanicolaou smear with manual screening 3 5-15 [facility] Basophil percentageOrdered B y: Dr. Gallardo on 04-16-2022 Bilirubin [Mass/Vol] 0.30 mg/dL 0.20-1.00 [facility] Comment on above: For patients on eltr ombopag therapy, use of Dimension [place]abel TBIL is not recommended. Chloride [Moles/Vol] 101 mmol/L 98-107 [facility] Cholesterol [Mass/Vol] 201 mg/dL <200 [facility] Comment on above: <200 mg/dL Desirable 200-240 mg/dL Borderline >240 mg/dL High Risk Glucose [Mass/Vol] 114 mg/dL 74-106 [facility] Comment on above: Fasting Glucose resu lt from 100 to 125 mg/dL suggests IMPAIRED HOMEOSTASIS per A.D.A. criteria. Potassium [Moles/Vol] 3.9 mmol/L 3.5-5.1 [facility] Protein [Mass/Vol] 6.4 g/dL 6.4-8.2 [facility] Sodium [Moles/Vol] 135 mmol/L 136-145 [facility] Triglyceride [Mass/Vol] 138 mg/dL <199 [facility] Comment on above: The drugs N-Acetylcy steine and Metamizole may falsely depress this assay.Serum Triglycerides Reference Interval Normal <150 mg/dL Borderline high 150 - 199 mg/dL High 200 - 499 mg/dL Very High > or = 500 mg/dL WBC (Bld) [#/Vol] 7.5 10*3/uL 4.4-11.0 [facility] Blood erythrocytes count (nu mber/volume)Ordered By: Dr. Gallardo on 04-16-2022 RBC (Bld) [#/Vol] 4.27 10*6/uL 4.6-6.2 [facility] Blood hemoglobin measurement (mass/volume)Ordered By: Dr. Gallardo on 04-16-2022 Hemoglobin (Bld) [Mass/Vol] 12.8 g/dL 13.0-16.5 [facility] Blood platelet mean volumeOr dered By: Dr. Gallardo on 04-16-2022 Platelet mean volume (Bld) [Entitic vol] 8.7 fL 6.2-12.0 [facility] COVID-19 virus antigen assay Ordered By: Dr. Crockett on 04-16-2022 SARS-CoV-2 (COVID-19) Ag IA.rapid Ql (Resp) [facility] Determination of erythrocyte mean corpuscular volume (MCV)Ordered By: Dr. Gallardo on 04-16-2022 MCV (RBC) [Entitic vol] 88.1 fL 80-94 [facility] Hematocrit Auto (Bld) [Volum e fraction]Ordered By: Dr. Gallardo on 04-16-2022 Hematocrit (Bld) [Volume fraction] 37.6 % 40-54 [facility] Laboratory - Chemistry and C hemistry - challengeOrdered By: Dr. Gallardo on 04-16-2022 ALP [Catalytic activity/Vol] 71 U/L 45-117 [facility] ALT [Catalytic activity/Vol] 22 U/L 16-61 [facility] CO2 [Moles/Vol] 30.0 mmol/L 21.0-32.0 [facility] Free T4 [Mass/Vol] 0.75 ng/dL 0.76-1.46 [facility] Globulin (S) [Mass/Vol] 3.1 g/dL 2.2-4.2 [facility] Urea nitrogen/Creatinine [Mass ratio] 26.5 mg/mg 10-20 [facility] Laboratory - CoagulationOrde red By: Dr. Crockett on 04-16-2022 aPTT Coag (Bld) [Time] 47.3 s 24.1-36.2 [facility] - Hematology and Cell countsOrdered By: Dr. Gallardo on 04-16-2022 Erythrocyte distribution width (RBC) [Entitic vol] 42.4 fL 35.1-43.9 [facility] Erythrocyte distribution width (RBC) [Ratio] 13.2 % 11.6-14.6 [facility] MCH (RBC) [Entitic mass] 30.0 pg 27.0-32.0 [facility] MCHC Auto (RBC) [Mass/Vol]Or dered By: Dr. Gallardo on 04-16-2022 MCHC (RBC) [Mass/Vol] 34.0 g/dL 32-36 [facility] No Panel InformationOrdered By: Dr. Gallardo on 04-16-2022 Estimated Creatinine Clearance Calc 59.82 ml/min [facility] Estimated GFR (MDRD) Amer 135 mL/min >60 [facility] Comment on above: GFR Calc Estimated GFR (MDRD) Non-Af Amer 112 mL/min >60 [facility] Comment on above: Non- GFR Calc Thyroid Stimulating Hormone (TSH) 4.53 uIU/mL 0.358-3.74 [facility] Platelets bldOrdered By: Dr. Gallardo on 04-16-2022 Platelets (Bld) [#/Vol] 160 10*3/uL 150-450 [facility] Serum or plasma albumin betty urement (mass/volume)Ordered By: Dr. Gallardo on 04-16-2022 Albumin [Mass/Vol] 3.3 g/dL 3.2-5.0 [facility] Serum or plasma albumin/glob ulin mass ratioOrdered By: Dr. Gallardo on 04-16-2022 Albumin/Globulin [Mass ratio] 1.1 {ratio} 0.9-2.4 [facility] Serum or plasma calcium betty urement (mass/volume)Ordered By: Dr. Gallardo on 04-16-2022 Calcium [Mass/Vol] 9.6 mg/dL 8.5-10.1 [facility] Serum or plasma cholesterol in HDL measurement (mass/volume)Ordered By: Dr. Gallardo on 04-16-2022 Cholesterol in HDL [Mass/Vol] 56 mg/dL >40 [facility] Comment on above: The drugs N-Acetylcy steine and Metamizole may falsely depress this assay. Reference Range HDL <40 mg/dL Low HDL Cholesterol HDL >or= 60 mg/dL High HDL Cholesterol Serum or plasma cholesterol in VLDL measurement (mass/volume)Ordered By: Dr. Gallardo on 04-16-2022 Cholesterol in VLDL [Mass/Vol] 28 mg/dL 5-40 [facility] Serum or plasma creatinine m easurement (mass/volume)Ordered By: Dr. Gallardo on 04-16-2022 Creatinine [Mass/Vol] 0.72 mg/dL 0.70-1.30 [facility] Comment on above: The validity of the calculated GFR & GFRAA in patients over 70 years has not been determined. Clinical correlation is essential. Serum or plasma low density lipoprotein (LDL) cholesterol measurement (mass/volume)Ordered By: Dr. Gallardo on 04-16-2022 Cholesterol in LDL [Mass/Vol] 117 mg/dL 0-130 [facility] Serum or plasma urea nitroge n measurement (mass/volume)Ordered By: Dr. Gallardo on 04-16-2022 Urea nitrogen [Mass/Vol] 19 mg/dL 7-18 [facility] Thin prep Papanicolaou smear with manual screeningOrdered By: Dr. Gallardo on 04-16-2022 Thin prep Papanicolaou smear with manual screening 27 U/L 15-37 [facility] Thin prep Papanicolaou smear with manual screening 4 5-15 [facility] Whole blood hemoglobin A1c/t otal hemoglobin ratio (mass fraction)Ordered By: Dr. Gallardo on 04-16-2022 HbA1c (Bld) [Mass fraction] 5.8 % 3.8-5.6 [facility] Comment on above: Normal < 5.7 % Predi abetic 5.7 - 6.4 % Diabetic >or= 6.5 % Please note range changes. Absolute lymphocyte countOrd ered By: Dr. Mccabe on 04-15-2022 Lymphocytes Auto (Unsp spec) [#/Vol] 2.72 10*3/uL 0.83-4.51 [facility] Basophil percentageOrdered B y: Dr. Gallardo on 04-15-2022 Basophil percentage 2.6 mg/dL 2.5-4.9 [facility] Basophil percentageOrdered B y: Dr. Mccabe on 04-15-2022 Basophils/100 WBC (Bld) 0.6 % 0-1 [facility] Chloride [Moles/Vol] 104 mmol/L 98-107 [facility] Eosinophils/100 WBC (Bld) 2.2 % 0-5 [facility] Glucose [Mass/Vol] 113 mg/dL 74-106 [facility] Comment on above: Fasting Glucose resu lt from 100 to 125 mg/dL suggests IMPAIRED HOMEOSTASIS per A.D.A. criteria. Neutrophils (Bld) [#/Vol] 3.4 10*3/uL 2.0-7.7 [facility] Neutrophils/100 WBC (Bld) 48.2 % 47-70 [facility] Potassium [Moles/Vol] 3.9 mmol/L 3.5-5.1 [facility] Sodium [Moles/Vol] 137 mmol/L 136-145 [facility] WBC (Bld) [#/Vol] 7.1 10*3/uL 4.4-11.0 [facility] Blood erythrocytes count (nu mber/volume)Ordered By: Dr. Mccabe on 04-15-2022 RBC (Bld) [#/Vol] 4.62 10*6/uL 4.6-6.2 [facility] Blood hemoglobin measurement (mass/volume)Ordered By: Dr. Mccabe on 04-15-2022 Hemoglobin (Bld) [Mass/Vol] 13.8 g/dL 13.0-16.5 [facility] Blood lymphocytes/100 leukoc ytesOrdered By: Dr. Mccabe on 04-15-2022 Lymphocytes/100 WBC (Bld) 38.1 % 19-41 [facility] Blood monocytes/100 leukocyt esOrdered By: Dr. Mccabe on 04-15-2022 Monocytes/100 WBC (Bld) 10.5 % 0-10 [facility] Blood platelet mean volumeOr dered By: Dr. Mccabe on 04-15-2022 Platelet mean volume (Bld) [Entitic vol] 8.9 fL 6.2-12.0 [facility] Determination of erythrocyte mean corpuscular volume (MCV)Ordered By: Dr. Mccabe on 04-15-2022 MCV (RBC) [Entitic vol] 87.9 fL 80-94 [facility] Hematocrit Auto (Bld) [Volum e fraction]Ordered By: Dr. Mccabe on 04-15-2022 Hematocrit (Bld) [Volume fraction] 40.6 % 40-54 [facility] INR in Blood by Coagulation assayOrdered By: Dr. Mccabe on 04-15-2022 INR Coag (Bld) [Relative time] 1.1 {INR} [facility] Laboratory - Chemistry and C hemistry - challengeOrdered By: Dr. Mccabe on 04-15-2022 CO2 [Moles/Vol] 26.0 mmol/L 21.0-32.0 [facility] Urea nitrogen/Creatinine [Mass ratio] 27.7 mg/mg 10-20 [facility] - Chemistry and C hemistry - challengeOrdered By: Dr. Gallardo on 04-15-2022 Magnesium [Mass/Vol] 2.1 mg/dL 1.6-2.6 [facility] Laboratory - CoagulationOrde red By: Dr. Mccabe on 04-15-2022 aPTT Coag (Bld) [Time] 33.4 s 24.1-36.2 [facility] PT Coag (PPP) [Time] 13.6 s 11.7-14.9 [facility] Laboratory - Hematology and Cell countsOrdered By: Dr. Mccabe on 04-15-2022 Erythrocyte distribution width (RBC) [Entitic vol] 42.2 fL 35.1-43.9 [facility] Erythrocyte distribution width (RBC) [Ratio] 13.1 % 11.6-14.6 [facility] Immature granulocytes/100 WBC (Bld) 0.400 % 0.0-0.9 [facility] Comment on above: IG% - Immature Granu locytes (promyelocytes, myelocytes and metamyelocytes) > 1% indicates that a LEFT SHIFT is Present. MCH (RBC) [Entitic mass] 29.9 pg 27.0-32.0 [facility] Nucleated RBC/100 WBC (Bld) [Ratio] 0 % 0-5 [facility] Auto (RBC) [Mass/Vol]Or dered By: Dr. Mccabe on 04-15-2022 MCHC (RBC) [Mass/Vol] 34.0 g/dL 32-36 [facility] No Panel InformationOrdered By: Dr. Gallardo on 04-15-2022 Troponin I High Sensitivity 3085 pg/mL 3.0-78.0 [facility] Comment on above: Critical Result(s) C alled at: 20:54:05 04/15/2022 by: Ludy Mcbride. Results read back by same. Please Note: New Test Units and Gender Specific Reference Ranges. For more information see Policy Stat Procedure [place] High Sensitivity Troponin (TNIH) and attachments. No Panel InformationOrdered By: Dr. Mccabe on 04-15-2022 Estimated Creatinine Clearance Calc 59.82 ml/min [facility] Estimated GFR (MDRD) Amer 127 mL/min >60 [facility] Comment on above: GFR Calc Estimated GFR (MDRD) Non-Af Amer 105 mL/min >60 [facility] Comment on above: Non- GFR Calc Troponin I High Sensitivity 2134 pg/mL 3.0-78.0 [facility] Comment on above: Critical Result(s) C alled at: 13:18:57 04/15/2022 by: Vaibhav Youssef. Results read back by same. Please Note: New Test Units and Gender Specific Reference Ranges. For more information see Policy Stat Procedure [place] High Sensitivity Troponin (TNIH) and attachments. Platelets bldOrdered By: Dr. Mccabe on 04-15-2022 Platelets (Bld) [#/Vol] 187 10*3/uL 150-450 [facility] Serum or plasma calcium betty urement (mass/volume)Ordered By: Dr. Mccabe on 04-15-2022 Calcium [Mass/Vol] 10.3 mg/dL 8.5-10.1 [facility] Serum or plasma creatinine m easurement (mass/volume)Ordered By: Dr. Mccabe on 04-15-2022 Creatinine [Mass/Vol] 0.76 mg/dL 0.70-1.30 [facility] Comment on above: The validity of the calculated GFR & GFRAA in patients over 70 years has not been determined. Clinical correlation is essential. Serum or plasma urea nitroge n measurement (mass/volume)Ordered By: Dr. Mccabe on 04-15-2022 Urea nitrogen [Mass/Vol] 21 mg/dL 7-18 [facility] Thin prep Papanicolaou smear with manual screeningOrdered By: Dr. Mccabe on 04-15-2022 Thin prep Papanicolaou smear with manual screening 7 5-15 [facility] Laboratory - Chemistry and C hemistry - challengeon 08-18-2021 Free T4 [Mass/Vol] 0.73 ng/dL 0.76-1.46 [facility] Work Phone: No Panel Informationon 08-18 Free Triiodothyronine (T3) pg/dL 2.2 pg/mL 2.18-3.98 [facility] Work Phone: Thyroid Stimulating Hormone (TSH) 3.53 uIU/mL 0.358-3.74 [facility] Work Phone: MRI BRAIN W/WO CONTRASTon MRI BRAIN W/WO CONTRAST Performed at [facility] APPROVED BY: Ebenezer Heck MD EXAM TITLE: MRI OF THE BRAIN WITHOUT AND WITH INTRAVENOUS CONTRAST (GAMMA KNIFE PROTOCOL) DATE:08/19/2017 10:25 COMPARISON: MR brain 11/17/2016 CLINICAL INDICATION/HISTORY: Follow-up left trigeminal nerve/Meckel's cave meningioma; status post gamma treatment x2; left facial pain TECHNIQUE: T1 axial precontrast. Following the administration of intravenous gadolinium contrast 3-D thin section axial T1 images were obtained with coronal reformats. Imaging was focused on the skull base and did not include the entirety of the brain. Please note this should not be considered a comprehensive review of the brain. 20 cc Dotarem intravenous gadolinium contrast was used. FINDINGS: POSTERIOR FOSSA:There is again noted to be a lobular enhancing mass within the left-sided prepontine cistern extending slightly into the left-sided Meckel's cave. This is along the left fifth cranial nerve. The mass measures approximately 15 mm AP by 10 mm TV by 10 mm CC and has not changed in size or appearance compared to the November 2016 and July 2016 MRIs. There is slight mass effect upon the left side of the alcides which is similar compared to prior. The right-sided Meckel's cave and prepontine cistern are unremarkable. No additional posterior fossa lesions. No additional abnormalities are seen within the included portions of the brain. IMPRESSION:Stable appearance of the enhancing lesion along the left 5th cranial nerve within the prepontine cistern and Meckel's cave. See above for details. Normal [facility] MRI BRAIN W/WO CONTRASTon Protein Performed at [facility] APPROVED BY: Berry Gr MD MR BRAIN WITH AND WITHOUT CONTRAST EXAM DATE: 11/17/2016 13:23 CLINICAL HISTORY: Meningioma. Patient presents for follow-up. TECHNIQUE: Routine gamma knife brain MRI protocol with and without intravenous gadolinium including axial fiesta images through the brainstem. COMPARISON: 08/04/2016 FINDINGS: No significant interval change in appearance of the previously noted lobular homogeneously enhancing extra-axial lesion within the left ventral aspect prepontine cistern extending anteriorly into Meckel's cave. This measures approximately 16 x 6 x 10 mm. Lesion is inseparable from the left 5th cranial nerve. No additional enhancing lesions are seen throughout the imaged brain. Stable ventricular size and configuration. IMPRESSION: No significant interval change compared to 08/04/2016 examination. Normal [facility] Vital Signs Date Time Vital Sign Value Performing Clinician Facility 11-17-2024 11:40-0400 Diastolic blood pressure 100 mm[Hg] Dr. Shira Brady MD Work Phone: [facility] 11-17-2024 11:40-0400 Systolic blood pressure 180 mm[Hg] Dr. Shira Brady MD Work Phone: [facility] 11-17-2024 07:43-0400 Body height 177.[address] Shira Brady MD Work Phone: [facility] 11-17-2024 07:43-0400 Body mass index (BMI) [Ratio] 28.3 kg/m2 Dr. Shira Brady MD Work Phone: [facility] 11-17-2024 07:43-0400 Body weight 89.[address] Shira Brady MD Work Phone: [facility] 11-17-2024 07:43-0400 Heart rate 85 /min Dr. Shira Brady MD Work Phone: [facility] 11-17-2024 07:43-0400 Respiratory rate 18 /min Dr. Shira Brady MD Work Phone: [facility] 11-17-2024 07:43-0400 SaO2% (BldA) [Mass fraction] 97 % Dr. Shira Brady MD Work Phone: [facility] 08-03-2024 11:08-0400 Body height 177.[address] Shira Brady MD Work Phone: [facility] 08-03-2024 11:08-0400 Body mass index (BMI) [Ratio] 27.1 kg/m2 Dr. Shira Brady MD Work Phone: [facility] 08-03-2024 11:08-0400 Body weight 85.[address] Shira Brady MD Work Phone: [facility] 08-03-2024 11:08-0400 Diastolic blood pressure 79 mm[Hg] Dr. Shira Brady MD Work Phone: [facility] 08-03-2024 11:08-0400 Heart rate 71 /min Dr. Shira Brady MD Work Phone: [facility] 08-03-2024 11:08-0400 Respiratory rate 18 /min Dr. Shira Brady MD Work Phone: [facility] 08-03-2024 11:08-0400 Systolic blood pressure 157 mm[Hg] Dr. Shira Brady MD Work Phone: [facility] 06-21-2023 21:20-0400 Body temperature 98.5 [degF] Dr. Shira Brady Work Phone: [facility] 06-21-2023 21:20-0400 Diastolic blood pressure 72 mm[Hg] Dr. Shira Brady Work Phone: [facility] 06-21-2023 21:20-0400 Heart rate 97 /min Dr. Shira Brady Work Phone: [facility] 06-21-2023 21:20-0400 Respiratory rate 18 /min Dr. Shira Brady Work Phone: [facility] 06-21-2023 21:20-0400 SaO2% (BldA) [Mass fraction] 100 % Dr. Shira Brady Work Phone: [facility] 06-21-2023 21:20-0400 Systolic blood pressure 168 mm[Hg] Dr. Shira Brady Work Phone: [facility] 06-21-2023 06:00-0400 Body mass index (BMI) [Ratio] 25.9 kg/m2 Dr. Shira Brady Work Phone: [facility] 06-21-2023 06:00-0400 Body weight 82.[address] Shira Brady Work Phone: [facility] 06-20-2023 02:39-0400 Inhaled oxygen flow rate 2 L/min Dr. Shira Brady Work Phone: [facility] 06-19-2023 04:18-0400 Body height 177.[address] Shira Brady Work Phone: [facility] 06-17-2023 14:18-0400 Diastolic blood pressure 90 mm[Hg] Dr. Shira Brady Work Phone: [facility] 06-17-2023 14:18-0400 Heart rate 102 /min Dr. Shira Brady Work Phone: [facility] 06-17-2023 14:18-0400 Respiratory rate 14 /min Dr. Shira Brady Work Phone: [facility] 06-17-2023 14:18-0400 SaO2% (BldA) [Mass fraction] 94 % Dr. Shira Brady Work Phone: [facility] 06-17-2023 14:18-0400 Systolic blood pressure 168 mm[Hg] Dr. Shira Brady Work Phone: [facility] 06-17-2023 12:39-0400 Body temperature 97.2 [degF] Dr. Shira Brady Work Phone: [facility] 06-17-2023 07:40-0400 Body height 177.[address] Shira Brady Work Phone: [facility] 06-17-2023 07:40-0400 Body mass index (BMI) [Ratio] 29.2 kg/m2 Dr. Shira Brady Work Phone: [facility] 06-17-2023 07:40-0400 Body weight 92.[address] Shira Brady Work Phone: [facility] 05-20-2023 11:32-0400 Body height 177.[address] Shira Brady Work Phone: [facility] 05-20-2023 11:32-0400 Body mass index (BMI) [Ratio] 26.1 kg/m2 Dr. Shira Brady Work Phone: [facility] 05-20-2023 11:32-0400 Body temperature 98.2 [degF] Dr. Shira Brady Work Phone: [facility] 05-20-2023 11:32-0400 Body weight 82.[address] Shira Brady Work Phone: [facility] 05-20-2023 11:32-0400 Diastolic blood pressure 74 mm[Hg] Dr. Shira Brady Work Phone: [facility] 05-20-2023 11:32-0400 Heart rate 74 /min Dr. Shira Brady Work Phone: [facility] 05-20-2023 11:32-0400 Respiratory rate 16 /min Dr. Shira Brady Work Phone: [facility] 05-20-2023 11:32-0400 SaO2% (BldA) [Mass fraction] 96 % Dr. Shira Brady Work Phone: [facility] 05-20-2023 11:32-0400 Systolic blood pressure 180 mm[Hg] Dr. Shira Brady Work Phone: [facility] 04-29-2023 12:58-0400 Body height 177.8 cm Acute 359 Work Phone: [facility] 04-29-2023 12:58-0400 Diastolic blood pressure 72 mm[Hg] Acute 359 Work Phone: [facility] 04-29-2023 12:58-0400 Heart rate 104 /min Acute 359 Work Phone: [facility] 04-29-2023 12:58-0400 SaO2% (BldA) [Mass fraction] 98 % Acute 359 Work Phone: [facility] 04-29-2023 12:58-0400 Systolic blood pressure 146 mm[Hg] Acute 359 Work Phone: [facility] 04-28-2023 15:53-0400 Body height 177.[address] Shira Brady Work Phone: [facility] 04-28-2023 15:53-0400 Body mass index (BMI) [Ratio] 25.8 kg/m2 Dr. Shira Brady Work Phone: [facility] 04-28-2023 15:53-0400 Body temperature 98.2 [degF] Dr. Shira Brady Work Phone: [facility] 04-28-2023 15:53-0400 Body weight 81.[address] Shira Brady Work Phone: [facility] 04-28-2023 15:53-0400 Diastolic blood pressure 69 mm[Hg] Dr. Shira Brady Work Phone: [facility] 04-28-2023 15:53-0400 Heart rate 87 /min Dr. Shira Brady Work Phone: [facility] 04-28-2023 15:53-0400 SaO2% (BldA) [Mass fraction] 95 % Dr. Shira Brady Work Phone: [facility] 04-28-2023 15:53-0400 Systolic blood pressure 157 mm[Hg] Dr. Shira Brady Work Phone: [facility] 04-21-2023 14:58-0400 Body temperature 97.8 [degF] Dr. Shira Brady Work Phone: [facility] 04-21-2023 14:58-0400 Diastolic blood pressure 51 mm[Hg] Dr. Shira Brady Work Phone: [facility] 04-21-2023 14:58-0400 Heart rate 88 /min Dr. Shira Brady Work Phone: [facility] 04-21-2023 14:58-0400 Respiratory rate 17 /min Dr. Shira Brady Work Phone: [facility] 04-21-2023 14:58-0400 SaO2% (BldA) [Mass fraction] 98 % Dr. Shira Brady Work Phone: [facility] 04-21-2023 14:58-0400 Systolic blood pressure 107 mm[Hg] Dr. Shira Brady Work Phone: [facility] 04-21-2023 06:00-0400 Body mass index (BMI) [Ratio] 25.2 kg/m2 Dr. Shira Brady Work Phone: [facility] 04-21-2023 06:00-0400 Body weight 79.[address] Shira Brady Work Phone: [facility] 04-09-2023 12:40-0500 Body height 177.[address] Shira Brady Work Phone: [facility] 04-02-2023 18:26-0500 SaO2% (BldA) [Mass fraction] 95 % TERESITA BERNAL [facility] Comment on above: Order Comment: Specimen Type: ARTERIAL B LOOD SPECIMENOrdering Facility: [facility] Address: [address] [address] Performed By: #### A LLBG ####[facility] LABORATORYCLIA [id number] [place] [address] [place] [facility] 04-01-2023 05:35-0500 Body temperature 98 [degF] Dr. Shira Brady Work Phone: [facility] 04-01-2023 05:35-0500 Diastolic blood pressure 22 mm[Hg] Dr. Shira Brady Work Phone: [facility] 04-01-2023 05:35-0500 Heart rate 88 /min Dr. Shira Brady Work Phone: [facility] 04-01-2023 05:35-0500 Respiratory rate 18 /min Dr. Shira Brady Work Phone: [facility] 04-01-2023 05:35-0500 SaO2% (BldA) [Mass fraction] 93 % Dr. Shira Brady Work Phone: [facility] 04-01-2023 05:35-0500 Systolic blood pressure 155 mm[Hg] Dr. Shira Brady Work Phone: [facility] 04-01-2023 00:50-0500 Body height 177.[address] Shira Brady Work Phone: [facility] 04-01-2023 00:50-0500 Body mass index (BMI) [Ratio] 27.3 kg/m2 Dr. Shira Brady Work Phone: [facility] 04-01-2023 00:50-0500 Body weight 86.[address] Shira Brady Work Phone: [facility] 01-29-2023 11:41-0500 Body height 177.[address] Shira Brady Work Phone: [facility] 01-29-2023 11:41-0500 Body mass index (BMI) [Ratio] 26.8 kg/m2 Dr. Shira Brady Work Phone: [facility] 01-29-2023 11:41-0500 Body weight 84.[address] Shira Brady Work Phone: [facility] 01-29-2023 11:41-0500 Diastolic blood pressure 75 mm[Hg] Dr. Shira Brady Work Phone: [facility] 01-29-2023 11:41-0500 Heart rate 75 /min Dr. Shira Brady Work Phone: [facility] 01-29-2023 11:41-0500 Respiratory rate 18 /min Dr. Shira Brady Work Phone: [facility] 01-29-2023 11:41-0500 SaO2% (BldA) [Mass fraction] 96 % Dr. Shira Brady Work Phone: [facility] 01-29-2023 11:41-0500 Systolic blood pressure 158 mm[Hg] Dr. Shira Brady Work Phone: [facility] 06-17-2022 09:48-0400 Body height 177.[address] Shira Brady Work Phone: [facility] 06-17-2022 09:48-0400 Body mass index (BMI) [Ratio] 28.7 kg/m2 Dr. Shira Brady Work Phone: [facility] 06-17-2022 09:48-0400 Body temperature 97.8 [degF] Dr. Shira Brady Work Phone: [facility] 06-17-2022 09:48-0400 Body weight 90.[address] Shira Brady Work Phone: [facility] 06-17-2022 09:48-0400 Diastolic blood pressure 92 mm[Hg] Dr. Shira Brady Work Phone: [facility] 06-17-2022 09:48-0400 Heart rate 97 /min Dr. Shira Brady Work Phone: [facility] 06-17-2022 09:48-0400 Respiratory rate 18 /min Dr. Shira Brady Work Phone: [facility] 06-17-2022 09:48-0400 SaO2% (BldA) [Mass fraction] 94 % Dr. Shira Brady Work Phone: [facility] 06-17-2022 09:48-0400 Systolic blood pressure 160 mm[Hg] Dr. Shira Brady Work Phone: [facility] 06-17-2022 09:31-0400 Body weight 92.[address] Shira Brady Work Phone: [facility] 06-17-2022 09:07-0400 Body mass index (BMI) [Ratio] 29.1 kg/m2 Dr. Shira Brady Work Phone: [facility] 06-17-2022 09:07-0400 Body temperature 98.6 [degF] Dr. Shira Brady Work Phone: [facility] 06-17-2022 09:07-0400 Diastolic blood pressure 70 mm[Hg] Dr. Shira Brady Work Phone: [facility] 06-17-2022 09:07-0400 Heart rate 107 /min Dr. Shira Brady Work Phone: [facility] 06-17-2022 09:07-0400 Respiratory rate 16 /min Dr. Shira Brady Work Phone: [facility] 06-17-2022 09:07-0400 SaO2% (BldA) [Mass fraction] 97 % Dr. Shira Brady Work Phone: [facility] 06-17-2022 09:07-0400 Systolic blood pressure 130 mm[Hg] Dr. Shira Brady Work Phone: [facility] 06-03-2022 12:10-0400 Body temperature 97.9 [degF] Carol Most RN Work Phone: [facility] 06-03-2022 12:10-0400 Body weight 90.72 kg Carol Most RN Work Phone: [facility] 06-03-2022 12:10-0400 Diastolic blood pressure 74 mm[Hg] Carol Most RN Work Phone: [facility] 06-03-2022 12:10-0400 Heart rate 68 /min Carol Most RN Work Phone: [facility] 06-03-2022 12:10-0400 Respiratory rate 16 /min Carol Most RN Work Phone: [facility] 06-03-2022 12:10-0400 SaO2% (BldA) [Mass fraction] 98 % Carol Most RN Work Phone: [facility] 06-03-2022 12:10-0400 Systolic blood pressure 122 mm[Hg] Carol Most RN Work Phone: [facility] 05-26-2022 15:49-0400 Body temperature 97 [degF] Carol Most RN Work Phone: [facility] 05-26-2022 15:49-0400 Body weight 94.26 kg Carol Most RN Work Phone: [facility] 05-26-2022 15:49-0400 Diastolic blood pressure 62 mm[Hg] Carol Most RN Work Phone: [facility] 05-26-2022 15:49-0400 Heart rate 88 /min Carol Most RN Work Phone: [facility] 05-26-2022 15:49-0400 Respiratory rate 16 /min Carolmercy Nobles RN Work Phone: [facility] 05-26-2022 15:49-0400 SaO2% (BldA) [Mass fraction] 96 % Carol Most RN Work Phone: [facility] 05-26-2022 15:49-0400 Systolic blood pressure 118 mm[Hg] Carolmercy Nobles RN Work Phone: [facility] 05-21-2022 11:06-0400 Body temperature 98.6 [degF] Little Berry-Sylvester PT Work Phone: [facility] 05-21-2022 11:06-0400 Diastolic blood pressure 60 mm[Hg] Little Ayaladerman-Phan PT Work Phone: [facility] 05-21-2022 11:06-0400 Heart rate 92 /min Little Marquis PT Work Phone: [facility] 05-21-2022 11:06-0400 Respiratory rate 16 /min Little Marquis PT Work Phone: [facility] 05-21-2022 11:06-0400 SaO2% (BldA) [Mass fraction] 95 % Little Montanaman-Phan PT Work Phone: [facility] 05-21-2022 11:06-0400 Systolic blood pressure 124 mm[Hg] Little Montanaman-Phan PT Work Phone: [facility] 05-20-2022 12:31-0400 Body temperature 97.5 [degF] Carolmercy Nobles RN Work Phone: [facility] 05-20-2022 12:31-0400 Body weight 94.26 kg Carolmercy Nobles RN Work Phone: [facility] 05-20-2022 12:31-0400 Diastolic blood pressure 56 mm[Hg] Carolmercy Nobles RN Work Phone: [facility] 05-20-2022 12:31-0400 Heart rate 84 /min Carolmercy Nobles RN Work Phone: [facility] 05-20-2022 12:31-0400 Respiratory rate 16 /min Carol Nobles RN Work Phone: [facility] 05-20-2022 12:31-0400 SaO2% (BldA) [Mass fraction] 97 % Carol Nobles RN Work Phone: [facility] 05-20-2022 12:31-0400 Systolic blood pressure 108 mm[Hg] Carolgaby Nobles RN Work Phone: [facility] 05-20-2022 10:51-0400 Diastolic blood pressure 80 mm[Hg] Jessica Ashanti OT /L Work Phone: [facility] 05-20-2022 10:51-0400 Heart rate 100 /min Jessica Ashanti OT/L Work Phone: [facility] 05-20-2022 10:51-0400 SaO2% (BldA) [Mass fraction] 98 % Jessica Ashanti OT/L Work Phone: [facility] 05-20-2022 10:51-0400 Systolic blood pressure 136 mm[Hg] Jessica Ashanti OT/ L Work Phone: [facility] 05-20-2022 10:22-0400 Body temperature 98.29 [degF] Jessica Ashanti OT/L Work Phone: [facility] 05-20-2022 10:22-0400 Respiratory rate 18 /min Jessica Ashanti OT/L Work Phone: [facility] 05-19-2022 17:25-0400 Diastolic blood pressure 78 mm[Hg] Anthony Kruger P TA Work Phone: [facility] 05-19-2022 17:25-0400 Heart rate 83 /min Anthony Kruger POOLING OPERATOR Work Phone: [facility] 05-19-2022 17:25-0400 SaO2% (BldA) [Mass fraction] 97 % Anthony Kruger POOLING OPERATOR Work Phone: [facility] 05-19-2022 17:25-0400 Systolic blood pressure 128 mm[Hg] Anthony Kruger PT A Work Phone: [facility] 05-19-2022 16:50-0400 Body temperature 97.81 [degF] Anthony Kruger POOLING OPERATOR Work Phone: [facility] 05-19-2022 16:50-0400 Respiratory rate 17 /min Anthony Kruger POOLING OPERATOR Work Phone: [facility] 05-15-2022 13:21-0400 Body temperature 97.7 [degF] Carolmercy Nobles RN Work Phone: [facility] 05-15-2022 13:21-0400 Body weight 93.08 kg Carol Most RN Work Phone: [facility] 05-15-2022 13:21-0400 Diastolic blood pressure 64 mm[Hg] Carol Most RN Work Phone: [facility] 05-15-2022 13:21-0400 Heart rate 84 /min Carol Most RN Work Phone: [facility] 05-15-2022 13:21-0400 Respiratory rate 16 /min Carol Most RN Work Phone: [facility] 05-15-2022 13:21-0400 SaO2% (BldA) [Mass fraction] 95 % Carol Most RN Work Phone: [facility] 05-15-2022 13:21-0400 Systolic blood pressure 112 mm[Hg] Carol Most RN Work Phone: [facility] 05-15-2022 12:05-0400 Diastolic blood pressure 78 mm[Hg] Anthony Kruger P TA Work Phone: [facility] 05-15-2022 12:05-0400 Heart rate 80 /min Anthony Kruger POOLING OPERATOR Work Phone: [facility] 05-15-2022 12:05-0400 Respiratory rate 17 /min Anthony Kruger POOLING OPERATOR Work Phone: [facility] 05-15-2022 12:05-0400 SaO2% (BldA) [Mass fraction] 96 % Anthony Kruger POOLING OPERATOR Work Phone: [facility] 05-15-2022 12:05-0400 Systolic blood pressure 120 mm[Hg] Anthony Kruger PT A Work Phone: [facility] 05-15-2022 11:20-0400 Body temperature 97 [degF] Anthony Jonesert POOLING OPERATOR Work Phone: [facility] 05-13-2022 12:53-0400 Diastolic blood pressure 74 mm[Hg] Anthony Kruger P TA Work Phone: [facility] 05-13-2022 12:53-0400 Heart rate 84 /min Anthony Jonesjimmie POOLING OPERATOR Work Phone: [facility] 05-13-2022 12:53-0400 Respiratory rate 70 /min Anthony Jonesjimmie POOLING OPERATOR Work Phone: [facility] 05-13-2022 12:53-0400 SaO2% (BldA) [Mass fraction] 98 % Anthony Kruger POOLING OPERATOR Work Phone: [facility] 05-13-2022 12:53-0400 Systolic blood pressure 110 mm[Hg] Anthony Kruger PT A Work Phone: [facility] 05-13-2022 12:05-0400 Body temperature 97.39 [degF] Anthony Kruger POOLING OPERATOR Work Phone: [facility] 05-12-2022 15:22-0400 Body temperature 98.29 [degF] Carol Nobles RN Work Phone: [facility] 05-12-2022 15:22-0400 Body weight 93.62 kg Carol Most RN Work Phone: [facility] 05-12-2022 15:22-0400 Diastolic blood pressure 86 mm[Hg] Carol Nobles RN Work Phone: [facility] 05-12-2022 15:22-0400 Heart rate 96 /min Carolmercy Nobles RN Work Phone: [facility] 05-12-2022 15:22-0400 Respiratory rate 16 /min Carol Nobles RN Work Phone: [facility] 05-12-2022 15:22-0400 SaO2% (BldA) [Mass fraction] 97 % Carol Nobles RN Work Phone: [facility] 05-12-2022 15:22-0400 Systolic blood pressure 134 mm[Hg] Carol Nobles RN Work Phone: [facility] 05-11-2022 14:07-0400 Body height 177.8 cm Teresita Bernal APRN.FOUNTAIN WORKER Work Phone: [facility] 05-11-2022 14:07-0400 Body weight 92.17 kg Teresita Bernal APRN.FOUNTAIN WORKER Work Phone: [facility] 05-11-2022 14:07-0400 Diastolic blood pressure 60 mm[Hg] Teresita Bernal APRN.FOUNTAIN WORKER Work Phone: [facility] 05-11-2022 14:07-0400 Heart rate 119 /min Teresita Bernal APRN.FOUNTAIN WORKER Work Phone: [facility] 05-11-2022 14:07-0400 SaO2% (BldA) [Mass fraction] 93 % Teresita Bernal APRN.FOUNTAIN WORKER Work Phone: [facility] 05-11-2022 14:07-0400 Systolic blood pressure 104 mm[Hg] Teresita Bernal APRN.FOUNTAIN WORKER Work Phone: [facility] 05-08-2022 11:11-0400 Body temperature 97.2 [degF] Alicia Saldivar RN Work Phone: [facility] 05-08-2022 11:11-0400 Diastolic blood pressure 68 mm[Hg] Alicia Saldivar RN Work Phone: [facility] 05-08-2022 11:11-0400 Heart rate 110 /min Alicia Saldivar RN Work Phone: [facility] 05-08-2022 11:11-0400 Respiratory rate 18 /min Alicia Saldivar RN Work Phone: [facility] 05-08-2022 11:11-0400 SaO2% (BldA) [Mass fraction] 95 % Alicia Saldivar RN Work Phone: [facility] 05-08-2022 11:11-0400 Systolic blood pressure 144 mm[Hg] Alicia Saldivar RN Work Phone: [facility] 05-07-2022 13:45-0400 Body temperature 96.6 [degF] Little Halderman-Phan PT Work Phone: [facility] 05-07-2022 13:45-0400 Diastolic blood pressure 56 mm[Hg] Little Halderman-Phan PT Work Phone: [facility] 05-07-2022 13:45-0400 Heart rate 84 /min Little Halderman-Phan PT Work Phone: [facility] 05-07-2022 13:45-0400 Respiratory rate 18 /min Little Halderman-Phan PT Work Phone: [facility] 05-07-2022 13:45-0400 SaO2% (BldA) [Mass fraction] 95 % Little Halderman-Phan PT Work Phone: [facility] 05-07-2022 13:45-0400 Systolic blood pressure 110 mm[Hg] Little Halderman-Phan PT Work Phone: [facility] 05-06-2022 19:41-0400 Body temperature 97 [degF] Alicia Saldivar RN Work Phone: [facility] 05-06-2022 19:41-0400 Diastolic blood pressure 62 mm[Hg] Alicia Saldivar RN Work Phone: [facility] 05-06-2022 19:41-0400 Heart rate 90 /min Alicia Saldivar RN Work Phone: [facility] 05-06-2022 19:41-0400 Respiratory rate 18 /min Alicia Saldivar RN Work Phone: [facility] 05-06-2022 19:41-0400 SaO2% (BldA) [Mass fraction] 93 % Alicia Saldivar RN Work Phone: [facility] 05-06-2022 19:41-0400 Systolic blood pressure 128 mm[Hg] Alicia Saldivar RN Work Phone: [facility] 05-03-2022 15:44-0400 Body temperature 97.8 [degF] Dr. Shira Brady Work Phone: [facility] 05-03-2022 15:44-0400 Diastolic blood pressure 73 mm[Hg] Dr. Shira Brady Work Phone: [facility] 05-03-2022 15:44-0400 Heart rate 78 /min Dr. Shira Brady Work Phone: [facility] 05-03-2022 15:44-0400 Respiratory rate 16 /min Dr. Shira Brady Work Phone: [facility] 05-03-2022 15:44-0400 SaO2% (BldA) [Mass fraction] 100 % Dr. Shira Brady Work Phone: [facility] 05-03-2022 15:44-0400 Systolic blood pressure 155 mm[Hg] Dr. Shira Brady Work Phone: [facility] 05-03-2022 15:00-0400 Body mass index (BMI) [Ratio] 27.8 kg/m2 Dr. Shira Brady Work Phone: [facility] 05-03-2022 15:00-0400 Body weight 87.[address] Shira Brady Work Phone: [facility] 05-03-2022 11:11-0400 Body height 177.[address] Shira Brady Work Phone: [facility] 04-16-2022 20:06-0500 Body temperature 98.1 [degF] Dr. Shira Brady Work Phone: [facility] 04-16-2022 20:06-0500 Diastolic blood pressure 61 mm[Hg] Dr. Shira Brady Work Phone: [facility] 04-16-2022 20:06-0500 Heart rate 62 /min Dr. Shira Brady Work Phone: [facility] 04-16-2022 20:06-0500 Respiratory rate 18 /min Dr. Shira Brady Work Phone: [facility] 04-16-2022 20:06-0500 SaO2% (BldA) [Mass fraction] 97 % Dr. Shira Brady Work Phone: [facility] 04-16-2022 20:06-0500 Systolic blood pressure 135 mm[Hg] Dr. Shira Brady Work Phone: [facility] 04-16-2022 05:24-0500 Body mass index (BMI) [Ratio] 30.9 kg/m2 Dr. Shira Brady Work Phone: [facility] 04-16-2022 05:24-0500 Body weight 97.[address] Shira Brady Work Phone: [facility] 04-15-2022 14:49-0500 Body height 177.[address] Shira Brady Work Phone: [facility] 04-15-2022 13:59-0500 Body temperature 98 [degF] [facility] 04-15-2022 13:59-0500 Diastolic blood pressure 77 mm[Hg] [facility] 04-15-2022 13:59-0500 Heart rate 62 /min [facility] 04-15-2022 13:59-0500 Respiratory rate 18 /min [facility] 04-15-2022 13:59-0500 SaO2% (BldA) [Mass fraction] 99 % [facility] 04-15-2022 13:59-0500 Systolic blood pressure 155 mm[Hg] [facility] 04-15-2022 12:20050 Body height 177.8 cm [facility] 04-15-2022 12:20050 Body mass index (BMI) [Ratio] 31.9 kg/m2 [facility] 04-15-2022 12:20050 Body weight 101.1 kg [facility] Encounters Encounter Date Encounter Type Care Provider Facility Start: 12-20-2024 ambulatory Blade Espino Facility:[facility] Start: 12-20-2024 ambulatory Shira Brady Facility :[facility] Start: 11-17-2024 End: 11-17-2024 Patient encounter procedure Daniela WISEMAN [facility] Work Phone: Start: 11-17-2024 End: 11-17-[address] Shira Brady MD Work Phone: -[facility] Start: 11-17-2024 End: 11-17-2024 ambulatory Shira Brady Facility:[facility] Start: 08-03-2024 End: 08-03-2024 Patient encounter procedure Pilar Alvarez HI -[facility] Work Phone: Start: 08-03-2024 End: 08-03-[address] Shira Brady MD Work Phone: [facility] Work Phone: Start: 06-21-2023 Non-patient / Non-visit Dr. Lindsay Brady Work Phone: [facility] Work Phone: Start: 06-20-2023 Non-patient / Non-visit Dr. Lindsay Brady Work Phone: [facility] Work Phone: Start: 06-19-2023 Non-patient / Non-visit Dr. Lindsay Brady Work Phone: [facility] Work Phone: Start: 06-18-2023 Non-patient / Non-visit Dr. Lindsay Brady Work Phone: [facility] Work Phone: Start: 06-17-2023 End: 06-21-2023 Evaluation and management of inpatient Dr. Shira Brady Work Phone: [facility]-Medical Surgical 3 Work Phone: Start: 05-20-2023 End: 05-20-[address] Shira Brady Work Phone: [facility] Work Phone: Start: 05-20-2023 End: 05-20-[address] Shira Brady Work Phone: [facility]-Radiology, [facility] Work Phone: Start: 05-20-2023 End: 05-20-[address] Shira Brady Work Phone: [facility] Work Phone: Start: 05-14-2023 ambulatory [facility] Start: 05-13-2023 End: 05-13-2023 ambulatory Acute 359 Work Phone: [facility] Comment on above: Hemothorax, traumati c, initial encounter (Primary Dx); Closed fracture of multiple ribs of right side with routine healing Start: 05-13-2023 End: 05-13-2023 Telemedicine consultation with patient [facility] Work Phone: [facility] Start: 05-10-2023 End: 05-10-2023 ambulatory [facility] Facility:[facility] Start: 05-10-2023 End: 05-10-2023 Subsequent hospital visit by physician [facility] Work Phone: Radiology Comment on above: Closed fracture of m ultiple ribs of right side with routine healing [S22.41XD] Start: 05-10-2023 End: 05-10-[address] Shira Brady Work Phone: [facility] Work Phone: Start: 05-10-2023 End: 05-10-[address] Shira Brady Work Phone: [facility]-Laboratory Work Phone: Start: 04-29-2023 End: 04-30-2023 ambulatory HSIRA BRADY Facility:[facility] Start: 04-29-2023 End: 04-29-2023 Patient encounter procedure [facility] Work Phone: [facility] Comment on above: Closed fracture of m ultiple ribs of right side with routine healing; Pleural effusion (right) Start: 04-29-2023 End: 04-29-2023 Subsequent hospital visit by physician Xr [facility] Comment on above: Closed fracture of m ultiple ribs of right side, initial encounter [S22.41XA] Start: 04-28-2023 End: 04-28-[address] Shira Brady Work Phone: [facility] Work Phone: Start: 04-27-2023 End: 04-27-[address] Shira Brady Work Phone: [facility] Work Phone: Start: 04-27-2023 End: 04-27-[address] [facility] Work Phone: Start: 04-21-2023 Non-patient / Non-visit Dr. Lindsay Brady Work Phone: [facility] Work Phone: Start: 04-19-2023 Non-patient / Non-visit Dr. Lindsay Brady Work Phone: [facility] Work Phone: Start: 04-16-2023 Non-patient / Non-visit Dr. Lindsay Brady Work Phone: [facility] Work Phone: Start: 04-15-2023 Non-patient / Non-visit Dr. Lindsay Brady Work Phone: [facility] Work Phone: Start: 04-13-2023 Non-patient / Non-visit Dr. Lindsay Brady Work Phone: [facility] Work Phone: Start: 04-12-2023 Non-patient / Non-visit Dr. Lindsay Brady Work Phone: [facility] Work Phone: Start: 04-09-2023 Non-patient / Non-visit Dr. Lindsay Brady Work Phone: [facility] Work Phone: Start: 04-08-2023 End: 04-21-2023 Evaluation and management of inpatient Dr. Shira Brady Work Phone: [facility]-Rehab Unit Work Phone: Start: 04-01-2023 ambulatory Sandra Ponce FOOT CUTTER.FOUNTAIN WORKER Work Phone: Critical Care Start: 04-01-2023 End: 04-08-2023 Evaluation and management of inpatient SHIRA BRADY Facility:[facility] Start: 04-01-2023 End: 04-01-2023 Emergency department patient visit Dr. Shira Brady Work Phone: [facility]-Emergency Department Work Phone: Start: 01-29-2023 End: 01-29-[address] Shira Brady Work Phone: [facility] Work Phone: Start: 01-29-2023 End: 01-29-[address] Shira Brady Work Phone: [facility] Work Phone: Start: 06-17-2022 End: 06-17-[address] Shira Brady Work Phone: [facility] Start: 06-17-2022 End: 06-17-[address] Shira Brady Work Phone: [facility] Work Phone: Start: 06-17-2022 End: 06-17-[address] 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] Start: 06-03-2022 Telephone encounter Carol Nobles RN Work Phone: [facility] Comment on above: Patient Update; Home Care; Patient Question Start: 06-03-2022 End: 06-03-2022 Home visit Carol Nobles RN Work Phone: [facility] Comment on above: SN AGENCY DC W VISIT Start: 05-27-2022 Telephone encounter Javier edouard MD Work Phone: [facility] Comment on above: Question (Daughter, Zoya Burgos, ) Start: 05-26-2022 End: 05-26-2022 Home visit Carol Most RN Work Phone: [facility] Comment on above: SN ROUTINE Start: 05-25-2022 Telephone encounter Javier edouard MD Work Phone: [facility] Comment on above: Question (Daughter, Zoya Burgos, ) Start: 05-21-2022 End: 05-21-2022 Orders Only Javier Alex MD Work Phone: [facility] Comment on above: PT DISC DC W VISIT Start: 05-20-2022 End: 05-20-2022 Home visit Carol Nobles RN Work Phone: [facility] Comment on above: SN ROUTINE OT ROUTINE Start: 05-19-2022 End: 05-19-2022 Home visit Anthoyn Kruger POOLING OPERATOR Work Phone: [facility] Comment on above: POOLING OPERATOR ROUTINE Start: 05-18-2022 Telephone encounter Susie negron FOOD TRUCK CATERER Work Phone: [facility] Comment on above: Home Care Orders (Prescription for Diltiazem); Request to contact (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 request to contact pharmacy) Start: 05-18-2022 End: 05-18-2022 Home visit Susie Schmitz FOOD TRUCK CATERER Work Phone: [facility] Comment on above: TELEPHONE CONTACT HOME HEALTH CAREGIVER CARE COORDINATIO N Start: 05-18-2022 End: 05-18-2022 ambulatory [facility] Facility:[facility] Start: 05-18-2022 End: 05-18-2022 Subsequent hospital visit by physician Dez [facility] Gauri Work Phone: Radiology Comment on above: 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] Start: 05-15-2022 End: 05-15-2022 Home visit Susie Schmitz FOOD TRUCK CATERER Work Phone: [facility] Comment on above: HOME HEALTH CAREGIVER CARE COORDINATIO N POOLING OPERATOR ROUTINE SN ROUTINE Start: 05-14-2022 Telephone encounter Javier edouard MD Work Phone: [facility] Comment on above: Request to call (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 requests to contact daughter, Kaitlyn Burgos, regarding patient's recent lab work.) Start: 05-13-2022 Telephone encounter Javier edouard MD Work Phone: [facility] Comment on above: Cardiac Rehab (Refer ral to [facility]) Start: 05-13-2022 End: 05-13-2022 Home visit Anthony Kruger POOLING OPERATOR Work Phone: [facility] Comment on above: POOLING OPERATOR ROUTINE Start: 05-12-2022 End: 05-12-2022 Home visit Carol Nobles RN Work Phone: [facility] Comment on above: SN ROUTINE Start: 05-12-2022 [facility] Start: 05-12-2022 Follow-up encounter Daniel Dawson RN [facility] Comment on above: Transition Of Care ( Tcm follow up) Start: 05-11-2022 End: 05-11-2022 ambulatory TERESITA BERNAL Facility:[facility] Start: 05-11-2022 End: 05-11-2022 Patient encounter procedure Teresita Bernal FOOT CUTTER.FOUNTAIN WORKER Work Phone: [facility] Comment on above: S/P CABG x 3 (Primar y Dx); Acute blood loss anemia Start: 05-11-2022 End: 05-11-2022 Subsequent hospital visit by physician Xr [facility] Comment on above: SOB (shortness of br eath) [R06.02] Start: 05-08-2022 Telephone encounter Alicia saez RN Work Phone: [facility] Comment on above: Home Care (Severe me dication interaction) Start: 05-08-2022 End: 05-08-2022 Home visit Alicia Saldivar RN Work Phone: [facility] Comment on above: SN ABBREV SOC 2ND SIT Start: 05-07-2022 End: 05-07-2022 Home visit Little Marquis PT Work Phone: [facility] Comment on above: PT EVAL Start: 05-06-2022 End: 05-06-2022 Home visit Alicia Saldivar RN Work Phone: [facility] Comment on above: SN ABBREV SOC 1ST SIT Start: 05-05-2022 ambulatory Catracho vanessa RN Work Phone: [facility] Start: 05-05-2022 Follow-up encounter Catracho kimble RN Work Phone: [employer] Comment on above: Transition Of Care ( TCM follow up [facility] Discharge 04/30/22) Start: 05-03-2022 End: 05-03-2022 Home visit Jennifer Holt RN Work Phone: [facility] Comment on above: SN UNMADE VISIT Start: 05-03-2022 End: 05-03-2022 Emergency department patient visit Dr. Shira Brady Work Phone: [facility]-Emergency Department Start: 05-01-2022 Patient Outreach Catracho roberts RN Work Phone: [facility] Comment on above: Transition Of Care ( TCM Initial [facility] Discharge 04/30/22) Start: 04-30-2022 Telephone encounter Javier edouard MD Work Phone: [facility] Comment on above: Other (Home Health C are orders) Home Care (Confirmat ion Call ) Start: 04-17-2022 Telephone encounter Gema Cox MD Work Phone: [facility] Comment on above: Orders Start: 04-16-2022 Non-patient / Non-visit Dr. Lindsay Brady Work Phone: [facility] Start: 04-16-2022 Non-patient / Non-visit Dr. Lindsay Brady Work Phone: [facility] Start: 03-08-2023 Non-patient / Non-visit Dr. Lindsay Brady Work Phone: [facility] Start: 04-15-2022 Non-patient / Non-visit Dr. Lindsay Brady Work Phone: [facility] Start: 04-15-2022 End: 04-16-2022 Evaluation and management of inpatient [facility]Progressive Care Unit Start: 08-18-2021 End: 08-18-2021 Patient encounter procedure [facility]Laboratory Start: 08-19-2017 End: 08-19-2017 Patient encounter Jaskaran JulietAdryan Nevarez Facility:[facility] Start: 01-15-2017 End: 01-15-2017 Patient encounter RODNEY APONTE Facility:[facility] Start: 11-17-2016 Patient encounter [facility] Procedures Date Procedure Procedure Detail Performing Clinician Start: 06-21-[address] Shira Brady Work Phone: Start: 06-19-2023 Fluoroscopic guidance Elizabeth Brady Work Phone: Start: 06-19-[address] Adryan Brady Work Phone: Start: 06-19-2023 Plain X-ray of hip Dr. Shira Brady Work Phone: Start: 06-18-2023 Radiologic examinati on of knee Dr. Shira Brady Work Phone: Start: 06-17-2023 CT of head without contrast Dr. Shira Brady Work Phone: Start: 06-17-2023 Plain chest X-ray Dr. Viktoriya Brady Work Phone: Start: 06-17-2023 Plain X-ray of femur Dr Adryan Brady Work Phone: Start: 06-17-2023 CT cervical spine without contrast Dr. Shira Brady Work Phone: Start: 06-17-2023 CT of head without contrast Dr. Shira Brady Work Phone: Start: 05-20-2023 Plain x-ray of humerus Dr. Shira Brady Work Phone: Start: 05-20-2023 Plain X-ray of shoulder Dr. Shira Brady Work Phone: Start: 05-10-2023 Radiologic exam ches t 2 views Jose Ramon Werner PA-C Work Phone: Start: 04-27-[address] Shira Brady Work Phone: Start: 04-13-2023 Measurement of occul t blood in stool specimen using immunoassay Dr. Shira Brady Work Phone: Start: 04-09-[address] Shira Brady Work Phone: Start: 04-09-2023 Plain chest X-ray Dr. Viktoriya Brady Work Phone: Start: 04-01-2023 CT cervical spine without contrast Dr. Shira Brady Work Phone: Start: 04-01-2023 CT of abdomen and pe lvis without contrast Dr. Shira Brady Work Phone: Start: 04-01-2023 CT of chest without contrast Dr. Shira Brady Work Phone: Start: 04-01-2023 CT of head without contrast Dr. Shira Brady Work Phone: Start: 05-18-2022 Radiologic exam ches t 2 views Teresita Bernal APRN.CNP Work Phone: Start: 05-03-2022 Plain chest X-ray Dr. Viktoriya Brady Work Phone: Start: 04-30-2022 History of coronary artery bypass grafting S/P CABG x 3 Javier Alex MD Work Phone: Start: 04-15-2022 Plain chest X-ray H/O: surgery History of chest tube placement Dr. Shira Brady Work Phone: Comment on above: Placed into the righ t chest for right hemothorax on 04/01/2023 and removed on 04/05/2023. History of coronary artery bypass grafting Hx of CABG Dr. 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 Shira Brady Work Phone: Comment on above: CABG x3 on 04/20/[address] Prasad in situ mammary end-to-side mid LAD, vein graft ascending aorta end-to-side obtuse marginal 1, vein graft ascending aorta end-to-side posterior descending (PDA). 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 Olga Lidia Brady Work Phone: Plan of Treatment Date Care Activity Detail Author Start: 04-07-2026 Diabetes Screening Diabetes Screenin [facility] Start: 04-01-2026 Diabetes Screening Diabetes Screenin [facility] Start: 05-12-2025 DIABETES SCREEN DIABETES SCREEN [facility] Start: 04-29-2025 DIABETES SCREEN DIABETES SCREEN [facility] Start: 04-17-2025 DIABETES SCREEN DIABETES SCREEN [facility] Start: 10-10-2023 Covid-19 Vaccine ( season) Covid-19 Vaccine ( season) [facility] Start: 10-10-2023 Covid-19 Vaccine ( season) Covid-19 Vaccine ( season) [facility] Start: 10-10-2023 Influenza vaccination [facility] Start: 06-21-2023 Patient discharge [facility] Start: 06-19-2023 Provision of overbed trapeze [facility] Start: 06-19-2023 Recommendation to continue with treatment [facility] Start: 06-19-2023 Ambulation therapy management [facility] Start: 06-19-2023 Application of device [facility] Start: 06-19-2023 Assessment of risk o f venous thromboembolism [facility] Start: 06-19-2023 Catheterization of vein [facility] Start: 06-19-2023 Exercises [facility] Start: 06-19-2023 Following clinical pathway protocol [facility] Start: 06-19-2023 Introduction of urin irais catheter [facility] Start: 06-19-2023 Measuring intake and output [facility] Start: 06-19-2023 Neurovascular assessment [facility] Start: 06-19-2023 Patient education [facility] Start: 06-19-2023 Procedure discontinued [facility] Start: 06-19-2023 Provision of activit y privileges [facility] Start: 06-19-2023 Referral to occupati onal therapist [facility] Start: 06-19-2023 Referral to service [facility] Start: 06-19-2023 Vital signs measurements [facility] Start: 06-19-2023 Wound care [facility] Start: 06-19-2023 [facility] Start: 06-19-2023 Osteoplasty of femur IM Sorindin g Hip, Intertan Nail S/N (Right) [facility] Start: 06-17-2023 Application of intermittent pneumatic compression device [facility] Start: 06-17-2023 [facility] Start: 06-17-2023 Following clinical pathway protocol [facility] Start: 06-17-2023 Assessment of risk o f venous thromboembolism [facility] Start: 06-17-2023 Catheterization of vein [facility] Start: 06-17-2023 Consultation [facility] Start: 06-17-2023 Documentation procedure [facility] Start: 06-17-2023 Inhalation therapy procedure [facility] Start: 06-17-2023 Insertion of cathete r into peripheral vein [facility] Start: 06-17-2023 Measuring intake and output [facility] Start: 06-17-2023 Oxygen therapy [facility] Start: 06-17-2023 Providing care accor ding to standard [facility] Start: 06-17-2023 Referral to occupati onal therapist [facility] Start: 06-17-2023 Referral to service [facility] Start: 06-17-2023 [facility] Start: 06-17-2023 Verification routine [facility] Start: 06-17-2023 Admission procedure [facility] Start: 06-17-2023 Hospital admission, emergency, from emergency room, medical nature [facility] Start: 05-10-2023 End: 05-28-2024 XR Chest PA and Lateral XR CHEST 2V FRONTAL/LAT Radiology Routine Closed fracture of multiple ribs of right side with routine healing Pleural effusion (right) Expected: 05/10/2023, Expires: 05/28/2024 [facility] Work Phone: Comment on above: Expected: 05/10/2023 , Expires: 05/28/2024 Start: 04-21-2023 Patient discharge [facility] Start: 04-20-2023 [facility] Start: 04-16-2023 [facility] Start: 04-16-2023 Referral to service [facility] Start: 04-12-2023 Verification routine [facility] Start: 04-11-2023 Contact precautions [facility] Start: 04-09-2023 Introduction of urin irais catheter [facility] Start: 04-09-2023 [facility] Start: 04-08-2023 Wound care [facility] Start: 04-08-2023 Recommendation to continue with treatment [facility] Start: 04-08-2023 Urinary bladder training [facility] Start: 04-08-2023 Referral to service [facility] Start: 04-08-2023 Admission procedure [facility] Start: 04-08-2023 Measuring intake and output [facility] Start: 04-08-2023 Patient referral to dietitian [facility] Start: 04-08-2023 Referral to occupati onal therapist [facility] Start: 04-08-2023 Vital signs measurements [facility] Start: 04-08-2023 End: 04-08-2023 [facility] Start: 04-08-2023 Speech therapy assessment [facility] Start: 04-01-2023 [facility] Start: 02-08-2023 Advance Directive Discussion Advance Directive Discussion [facility] Start: 02-08-2023 Behavioral Health Screening Behavioral Health Screening [facility] Start: 02-08-2023 Depression Assessment Depression Ass essment [facility] Start: 10-09-2022 Covid-19 Vaccine () Covid-19 Vaccine () [facility] Start: 10-09-2022 Influenza vaccination [facility] Start: 06-17-2022 [facility] Start: 06-17-2022 Patient referral to dietitian [facility] Start: 05-18-2022 End: 06-10-2023 Radiologic exam chest 2 views XR CHEST 2V FRONTAL/LAT Radiology Routine S/P CABG x 3 Expected: 05/18/2022 (Approximate), Expires: 06/10/2023 [facility] Work Phone: Comment on above: Expected: 05/18/2022 (Approximate), Expires: 06/10/2023 Start: 05-12-2022 End: 07-12-2022 CBC panel - Blood by Automated count CBC Lab Routine Acute blood loss anemia Expected: 05/12/2022, Expires: 07/12/2022 [facility] Work Phone: Comment on above: Expected: 05/12/2022 , Expires: 07/12/2022 Start: 05-11-2022 End: 07-11-2022 Basic metabolic 2000 panel - Serum or Plasma BASIC METABOLIC PNL Lab Routine S/P CABG x 3 Expected: 05/11/2022, Expires: 07/11/2022 [facility] Work Phone: Comment on above: Expected: 05/11/2022 , Expires: 07/11/2022 Start: 05-03-2022 [facility] Start: 04-17-2022 Blood chemistry [facility] Start: 04-16-2022 Patient discharge [facility] Start: 04-16-2022 Notification of physician [facility] Start: 04-16-2022 Patient discharge [facility] Start: 04-16-2022 Patient education [facility] Start: 04-16-2022 Provision of activit y privileges [facility] Start: 04-16-2022 Pulse taking [facility] Start: 04-16-2022 Taking patient vital signs [facility] Start: 04-16-2022 Wound care [facility] Start: 04-16-2022 [facility] Start: 04-15-2022 Catheterization of vein [facility] Start: 04-15-2022 Medication not administered [facility] Start: 04-15-2022 Notification of physician [facility] Start: 04-15-2022 Preoperative care [facility] Start: 04-15-2022 [facility] Start: 04-15-2022 Ambulation without limitation [facility] Start: 04-15-2022 Assessment of risk o f venous thromboembolism [facility] Start: 04-15-2022 Incentive spirometry [facility] Start: 04-15-2022 Insertion of cathete r into peripheral vein [facility] Start: 04-15-2022 Measuring intake and output [facility] Start: 04-15-2022 Oxygen therapy [facility] Start: 04-15-2022 Providing care accor ding to standard [facility] Start: 04-15-2022 Referral to nurses director [facility] Start: 04-15-2022 Referral to occupati onal therapist [facility] Start: 04-15-2022 Referral to service [facility] Start: 04-15-2022 Tobacco use cessatio n education [facility] Start: 04-15-2022 [facility] Start: 04-15-2022 Following clinical pathway protocol [facility] Start: 04-15-2022 Admission procedure [facility] Start: 04-15-2022 Blood chemistry [facility] Start: 04-15-2022 End: 04-15-2022 [facility] Start: 02-08-2022 ADVANCE DIRECTIVE DISCUSSION ADVANCE DIRECTIVE DISCUSSION [facility] Start: 02-08-2022 DEPRESSION ASSESSMENT DEPRESSION ASS ESSMENT [facility] Start: 10-09-2021 Influenza vaccination INFLUENZA (#1) [facility] Start: 01-01-2021 COVID-19 VACCINE (2 - Booster for Radha series) COVID-19 VACCINE (2 - Booster for Radha series) [facility] Start: 2016 RSV Vaccine (1 - 1-d ose 75+ series) RSV Vaccine (1 - 1-dose 75+ series) [facility] Start: 2006 Pneumococcal Vaccine : 65+ (1 of 1 - PCV) Pneumococcal Vaccine: 65+ (1 of 1 - PCV) [facility] Start: 2006 PNEUMOCOCCAL: 65+ (1 - PCV) PNEUMOCOCCAL: 65+ (1 - PCV) [facility] Start: 2001 RSV Vaccine (1 - 1-d ose 60+ series) RSV Vaccine (1 - 1-dose 60+ series) [facility] Start: 1991 SHINGRIX VACCINE (1 of 2) REDDY GRIX VACCINE (1 of 2) [facility] Start: 1960 Urine microalbumin profile [facility] Start: 1959 Anxiety Screening Anxiety Screening [facility] Start: 1959 Depression Screening Depression Scre ening [facility] Anion gap measurement [facility] BUN/Creatinine ratio [facility] Calcium [Mass/volume ] in Serum or Plasma [facility] Carbon dioxide, tota l [Moles/volume] in Serum or Plasma [facility] CARDIAC REHAB II OUT PT ([place], [place]) CARDIAC REHAB II OUTPT ([place]) BIC Routine S/P CABG x 3 Ordered: 05/11/2022 [facility] Work Phone: Comment on above: Ordered: 05/11/2022 Chloride [Moles/volu me] in Serum or Plasma [facility] Creatinine [Moles/vo lume] in Serum or Plasma [facility] End: 05-12-2023 EXERCISE STRESS ECG (WITHOUT IMAGING) EXERCISE STRESS ECG (WITHOUT IMAGING) Cardiology Routine S/P CABG x 3 1 Occurrences starting 05/11/2022 until 05/12/2023 [facility] Work Phone: Comment on above: 1 Occurrences starti ng 05/11/2022 until 05/12/2023 Glucose [Mass/volume ] in Serum or Plasma [facility] Measurement of renal function [facility] Patient Education [facility] Work Phone: Patient referral [facility] Work Phone: Potassium [Moles/vol ume] in Serum or Plasma [facility] End: 06-09-2023 Radiologic exam chest 2 views XR CHEST 2V FRONTAL/LAT Radiology Routine S/P CABG x 3 1 Occurrences starting 05/11/2022 until 06/09/2023 [facility] Work Phone: Comment on above: 1 Occurrences starti ng 05/11/2022 until 06/09/2023 End: 05-11-2022 Radiologic exam chest 2 views [facility] Work Phone: Comment on above: 1 Occurrences starti ng 05/11/2022 until 05/11/2022 End: 06-05-2022 Radiologic exam chest 2 views [facility] Work Phone: Comment on above: 1 Occurrences starti ng 06/05/2022 until 06/05/2022 Sodium [Moles/volume ] in Serum or Plasma [facility] Urea nitrogen [Mass/volume] in Serum or Plasma [facility] XR Chest PA and Lateral XR CHEST 2V FRONTAL/LAT Radiology Routine Closed fracture of multiple ribs of right side, initial encounter Hemothorax on right 04/29/2023 12:38 PM EDT [facility] Work Phone: [facility] Immunizations Immunization Date Immunization Notes Care Provider [facility] 11-06-2020 [place] [facility] Dr. 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 Medicare [id number] Unknown [id number] Unknown [id number] Unknown [id number] Unknown [id number] Unknown [id number] Social History Date Type Detail Facility Start: 01-14-2021 End: 06-17-2023 Tobacco smoking status NHIS Unknown if ever smoked [facility] Start: 1940 Sex Assigned At Male [facility] Start: 10-24-2015 [facility] Start: 10-24-2015 Tobacco use and exposure Smokeless tobacco non-user [facility] Start: 09-21-2021 End: 06-05-2022 Alcohol intake Current non-drinker of alcohol (finding) [facility] Start: 1940 Sex Assigned At Not on file [facility] Start: 05-03-2022 End: 04-01-2023 History of Social function [facility] Start: 05-03-2022 End: 04-01-2023 Tobacco use panel [facility] Adult Depression Screening Assessment 0 [facility] Start: 06-28-2023 Tobacco smoking stat [facility] Ex-smoker (finding) [facility] Medical Equipment Procedure Code Equipment Code Equipment Origin al Text Equipment Identifier Dates Insertion, trochanteric nail, femur, proximal ([id number]) Orthopaedic bone screw, non-bioabsorbable, sterile [id number] FDA Start: 06-19-2023 Insertion, trochanteric nail, femur, proximal ([id number]) Femur nail, sterile [id number] FDA Start: 06-19-2023 Insertion, trochanteric nail, femur, proximal ([id number]) Orthopaedic bone screw, non-bioabsorbable, sterile [id number] FDA Start: 06-19-2023 Low Profile Ster nal X-Plate 8 Holes [id number] Start: 04-20-2022 Axs Smartlock Driving Screw 2.3mm X 12mm [id number] Start: 04-20-2022 Goals Date Patient Goal Desired Activity /State Functional Status Date Assessment Result Facility 06-21-2023 Functional status Activity Abili ty With Assist of 2 [facility] Work Phone: 06-21-2023 Functional status Chair [facility] Work Phone: 04-21-2023 Functional status Activity Abili ty With Assist of 1 [facility] Work Phone: 04-19-2023 Functional status Patient Activity Chair [facility] Work Phone: 04-18-2023 Functional status Rolling Walker [facility] Work Phone: 04-16-2022 Functional status Activity Ability Indepe ndent [facility] Work Phone: 04-16-2022 Functional status Ambulates;Up ad anshu [facility] Work Phone: Mental Status Date Assessment Result Facility 06-21-2023 Cognitive function Voice/Name [facility] Work Phone: 06-21-2023 Cognitive function Appropriate;C ooperative;Cr pedro [facility] Work Phone: 04-21-2023 Cognitive function Voice/Name [facility] Work Phone: 04-16-2022 Cognitive function Voice/Name [facility] Work Phone: 04-15-2022 Cognitive function Voice/Name [facility] Work Phone: Clinical Notes 03-25-2015 to 11-17-2024 Note Date & Type Note Facility 11-17-2024 Progress note [facility] 06-21-2023 Discharge summary Note Date/Time June 21, 2023 4:20pm [facility] Medical Records Department [address] [place] [id number] Discharge Summary 06/21/23 1615 MR#: [id number] Acct: [id number] Name: OLGA LINDSEY Rep #:[id number] : 1940 83 From: Katerina Moreno MD PCP: Dr. Shira Brady MD Status:ADM IN [id number] Providers Date of Admission: 06/17/23 Date of Discharge: 06/21/23 Primary Care Physician: Dr. Shira Brady MD Consultations 06/17/23 14:53 Consult: Orthopedics Routine Consulting Provider: Ignacio Sifuentes Reason for Consult: R Hip Fracture EMERGENT Consult: No MD Notified: Yes Date Notified: 06/17/23 Time Notified: 11:22 Method of Notification: ED Physician Initiated Reason For Visit: R HIP FRACTURE S/P MECHANICAL FALL Diagnosis Discharge Diagnosis (1) Closed right hip fracture: Status: Acute Code(s): S72.001A - Fracture of unspecified part of neck of right femur, initial encounter for closed fracture (2) Fall: Status: Acute Code(s): W19.XXXA - Unspecified fall, initial encounter (3) Closed head injury: Status: Acute Code(s): S09.90XA - Unspecified injury of head, initial encounter (4) Laceration: Status: Acute (5) Hypokalemia: Status: Acute Code(s): E87.6 - Hypokalemia Medications at Discharge Home Medications aspirin 81 mg chewable tablet 1 tab PO DAILY heart health 04/08/23 acetaminophen 500 mg tablet 1,000 mg (2 x 500 mg) PO Q8H PRN PRN fever or pain #50 tabs 04/21/23 apixaban 5 mg tablet 5 mg PO BID #60 tabs 04/21/23 atorvastatin 40 mg tablet (Lipitor) 40 mg PO QHS cholesterol #30 tabs 04/21/23 diltiazem HCl 240 mg capsule,extended release 24 hr 240 mg PO DAILY blood pressure #30 caps 04/21/23 ferrous gluconate 324 mg (37.5 mg iron) tablet 324 mg PO DAILY #90 tabs 04/21/23 levothyroxine 50 mcg tablet 50 mcg PO DAILY@0600 #30 tabs 04/21/23 magnesium oxide 400 mg PO BID supplement #60 tabs 04/21/23 sennosides 8.6 mg-docusate sodium 50 mg tablet (Stool Softener-Stimulant Laxative) 2 tab PO BID #120 tabs 04/21/23 tamsulosin 0.4 mg capsule 0.4 mg PO DAILY@1730 #30 caps 04/21/23 lisinopril 5 mg tablet 5 mg PO BID #60 tabs 05/03/23 hydralazine 25 mg tablet 25 mg PO BID #180 tabs 05/10/23 carbamazepine 200 mg tablet (Tegretol) 200 mg PO TID seziures #90 tabs 06/11/23 cranberry 500 mg capsule 1,000 mg PO DAILY 06/17/23 oxycodone 5 mg tablet 5 mg PO Q4H PRN PRN Pain Score 4-10 3 days #18 tabs 06/21/23 Hospital Course Operations - (right hip cephalomedullary nailing) Procedures None Summary of Care Provided Minutes Spent on Discharge: 47 Hospital Course: Patient is an 83-year-old male with a past medical history as outlined was admitted through the ED on 06/17/2023 with a complaint of mechanical fall. He wasgetting out of bed to go to the bathroom and fell. He hit his head and had a small laceration above his right eye. He had severe pain in his right hip so hewas brought into the ED. CT of the brain shows soft tissue swelling over the right orbital region but no evidence of fracture. CT of the cervical spine was unremarkable and chest x-ray showed hyperinflation with pleural-parenchymal changes at the right base. Pelvic x-ray showed a nondisplaced right intertrochanteric fracture. He was admitted and managed for debility due to mechanical fall with resultant right intertrochanteric fracture. He had a right cephalomedullary nailing done on 06/19/2023. Post op course was uncomplicated. Hewas placed back on his home dose of eliquis for DVT prophylaxis. He reemained stable and was discharged to a rehab facility on 06/21/2023. He is to follow up with his PCP and orthopedic surgery within 1-2 weeks. Patient was seen and examined prior to discharge. He felt well and had no complaints. He had had an uneventful night. Review of systems otherwise negative. Labs and vitals reviewed. Medication reviewed and reconciled. Patient was given a prescription for p.o. oxycodone 5 mg every 4 hours as neededfor total of 18 tablets for 3 days. Physical Exam Const alert, oriented x3, no apparent distress and average body habitus General Appearance: cooperative, comfortable and well kempt Orientation / Consciousness: awake Exam Limitations: no limitations HEENT normocephalic, head/scalp atraumatic, hearing grossly normal bilaterally and moist oral mucous membranes HEENT Narrative: resolving right periorbital bruising. Mouth: oral and palatal mucosa normal Eyes PERRL, EOMs intact bilaterally and conjunctivae normal Neck no lymphadenopathy and supple Resp normal respiratory effort, no retractions, no use of accessory muscles and clearto auscultation bilaterally Cardio regular rate, regular rhythm, S1 normal heart sound, S2 normal heart sound and no murmurs GI normal to inspection, nondistended, normoactive bowel sounds, soft to palpation and non-tender Extremity normal to inspection, full ROM and no clubbing, cyanosis or edema Skin no rashes or lesions noted and no wounds Skin Narrative: intact dressing over right hip. Neuro oriented x3, CN's II-XII intact bilaterally, moves all extremities, no focal motor deficits and no sensory deficits noted Motor Exam: strength 5/5 throughout Weight / BMI Weight Weight: 181 lb 3.52 oz Body Mass Index (BMI) 25.9 ABG / Lab / Microbiology Data 06/21/23 05:54 06/21/23 05:54 Laboratory: Laboratory Results - last 24 hr 06/21/23 05:54: WBC 7.2, RBC 2.59 L, Hgb 7.3 L, Hct 22.8 L, MCV 88.0, MCH 28.2, MCHC 32.0, RDW Std Deviation 51.5 H, RDW Coeff of Maday 15.9 H, Plt Count 133 L, MPV 10.2, Sodium 132 L, Potassium 4.0, Chloride 102, Carbon Dioxide 27.0, Anion Gap 3 L, BUN 26 H, Creatinine 0.57 L, Estim Creat Clear Calc 73.51, Est GFR (MDRD) Af Amer 177, Est GFR (MDRD) Non-Af 147, BUN/Creatinine Ratio 45.9 H, Glucose 116 H, Calcium 9.2 Microbiology: Microbiology 06/21/23 15:00 Nasal Secretion SARS-CoV-2 Antigen (Rapid) - Final D/C Instructions Discharge Diet: Low fat / Low cholesterol Discharge Activity: Return to Normal Activity Weight Bearing Status: Weight bearing as tolerated Call your doctor if you observe: Fever of 101 or Higher, Shortness of breath, Dizziness, Swelling in the ankles and Chest pain Meaningful Use Info Meaningful Use Meaningful Use Diagnoses (Choose all that apply): None applicable Ischemic Stroke Statin Dosing Therapy Reference: STATIN DOSE THERAPY REFERENCE: * Patients > 75 years receive moderate or high dose statin therapy. * Patients 75 years or YOUNGER should receive HIGH intensity statin dose unless contraindicated. You will be required to document reason for non-treatment if statin daily dose does not meet guidelines. HIGH DOSE STATIN THERAPY DAILY Atorvastatin > than or = to 40 mg Rosuvastatin > than or = to 20 mg Amlodipine + Atorvastatin > than or = to 2.5/40 mg Ezetimibe + Simvastatin 10/80 mg Simvastatin 80mg Discharge Plan Admission Admit Date/Time: 06/17/23 11:16 Primary Reason for Your Visit: right hip fracture Attending Provider: Katerina Moreno Primary Care Provider: Shira Brady Consulting Providers: Ignacio Sifuentes; Lucille Colindres Instructions Patient Instructions: Hip Fx Surg Dc Discharge Orders/Prescriptions Prescriptions: New oxycodone 5 mg Tablet 5 mg PO Q4H PRN PRN (Reason: Pain Score 4-10) 3 Days Qty: 18 0RF Continued aspirin 81 mg tablet,chewable 1 tab PO DAILY acetaminophen 500 mg Tablet 1,000 mg PO Q8H PRN PRN (Reason: fever or pain) Qty: 50 0RF sennosides-docusate sodium [Stool Softener-Stimulant Laxat] 8.6-50 mg Tablet 2 tab PO BID Qty: 120 3RF tamsulosin 0.4 mg Capsule 0.4 mg PO DAILY@1730 Qty: 30 0RF levothyroxine 50 mcg Tablet 50 mcg PO DAILY@0600 Qty: 30 0RF atorvastatin [Lipitor] 40 mg tablet 40 mg PO QHS Qty: 30 0RF diltiazem HCl 240 mg capsule,extended release 24hr 240 mg PO DAILY Qty: 30 3RF apixaban 5 mg tablet 5 mg PO BID Qty: 60 0RF magnesium oxide 400 mg magnesium tablet 400 mg PO BID Qty: 60 0RF ferrous gluconate 324 mg (37.5 mg iron) tablet 324 mg PO DAILY Qty: 90 0RF Rx Instructions: Take this medication once daily WITH FOOD cranberry 500 mg capsule 1,000 mg PO DAILY Patient Comments: unsure of strength lisinopril 5 mg tablet 5 mg PO BID Qty: 60 5RF hydralazine 25 mg tablet 25 mg PO BID Qty: 180 3RF carbamazepine [Tegretol] 200 mg tablet 200 mg PO TID Qty: 90 1RF Patient Comments: 1st dose taken today 06/16 Referrals / Follow Up: Shira Brady MD [Primary Care Provider] - Within 2 Weeks Ignacio Sifuentes MD [Med Staff - Active Staff] - Within 2 Weeks Disposition Disposition (needs filled in before D/C Order can be placed): [facility] Charges/Coding Visit Charges Inpatient E&M: 25541 Disch Hosp >30min 06/21/23 1623 <Electronically signed by Katerina Moreno MD> Cosigner Signature (if applicable): CC: Dr. Shira Brady MD; Dr. Katerina Moreno MD~ Signed [facility] Work Phone: 1(854) 759-672405-13-2024 Discharge summary [facility] June 21, 2023 4:15pm Note Date/Time June 21, 2023 4:15p m [facility] Medical Records Department [address] [place] [address] Transfer to [facility] MR#: [id number] Acct: [id number] Name: OLGA LINDSEY Rep #:[id number] : 1940 83 From: Katerina Moreno MD PCP: Dr. Shira Brady MD Status:ADM IN Certification of patient admission REQUIRED AT TIME OF ADMISSION. I CERTIFY THAT POST-HOSPITAL ECF SERVICES ARE REQUIRED TO BE GIVEN ON AN IN-PATIENT BASIS BECAUSE OF THE ABOVE NAMED PATIENT'S NEED FOR RESIDENTIAL CARE ON A CONTINUING BASIS FOR THE CONDITION(S) FOR WHICH HE/SHE WAS RECEIVING IN-PATIENT HOSPITAL SERVICES PRIOR TO HIS/HER TRANSFER TO THE F. 06/21/23 1615<Electronically signed by Katerina Moreno MD> Diet Diet Order/Speech Therapy: 06/20/23 14:32 Diet: Regular - General Routine Orders/Code Status Enema Type: Fleetz Enema Frequency: Daily PRN Suppository Type: Dulcolax 10mg Suppository Frequency: Daily PRN O2 Frequency: PRN Keep PO Greater than or Equal to (%): 90 Wound(s) X2 ON RT ELBOW: Wound Type: Abrasion X2 ABOVE RT EYE: Wound Type: Abrasion RIGHT HIP: Wound Type: Surgical Incision Therapies Weight Bearing: Weight bearing as tolerated Physical Therapy: Eval and Treat Occupational Therapy: Eval and Treat Problem/Diagnosis (1) Closed right hip fracture: Status: Acute Code(s): S72.001A - Fracture of unspecified part of neck of right femur, initial encounter for closed fracture (2) Fall: Status: Acute Code(s): W19.XXXA - Unspecified fall, initial encounter (3) Closed head injury: Status: Acute Code(s): S09.90XA - Unspecified injury of head, initial encounter (4) Laceration: Status: Acute (5) Hypokalemia: Status: Acute Code(s): E87.6 - Hypokalemia Allergies/Procedures Done in Hospital Allergies No Known Allergies Allergy (Verified 06/17/23 07:40) Type of Care/Length of Stay Estimated LOS: Convalescent Care Less Than 30 days Type of Care Needed: Skilled Rehab Potential: Fair Prognosis: Fair Additional Orders/Day of Discharge Day of Discharge: 06/21/23 Discharge Plan Admission Admit Date/Time: 06/17/23 11:16 Primary Reason for Your Visit: right hip fracture Attending Provider: Katerina Moreno Primary Care Provider: Shira Brady Consulting Providers: Ignacio Sifuentes; Lucille Colindres Instructions Patient Instructions: Hip Fx Surg Dc Discharge Orders/Prescriptions Prescriptions: New oxycodone 5 mg Tablet 5 mg PO Q4H PRN PRN (Reason: Pain Score 4-10) 3 Days Qty: 18 0RF Continued aspirin 81 mg tablet,chewable 1 tab PO DAILY acetaminophen 500 mg Tablet 1,000 mg PO Q8H PRN PRN (Reason: fever or pain) Qty: 50 0RF sennosides-docusate sodium [Stool Softener-Stimulant Laxat] 8.6-50 mg Tablet 2 tab PO BID Qty: 120 3RF tamsulosin 0.4 mg Capsule 0.4 mg PO DAILY@1730 Qty: 30 0RF levothyroxine 50 mcg Tablet 50 mcg PO DAILY@0600 Qty: 30 0RF atorvastatin [Lipitor] 40 mg tablet 40 mg PO QHS Qty: 30 0RF diltiazem HCl 240 mg capsule,extended release 24hr 240 mg PO DAILY Qty: 30 3RF apixaban 5 mg tablet 5 mg PO BID Qty: 60 0RF magnesium oxide 400 mg magnesium tablet 400 mg PO BID Qty: 60 0RF ferrous gluconate 324 mg (37.5 mg iron) tablet 324 mg PO DAILY Qty: 90 0RF Rx Instructions: Take this medication once daily WITH FOOD cranberry 500 mg capsule 1,000 mg PO DAILY Patient Comments: unsure of strength lisinopril 5 mg tablet 5 mg PO BID Qty: 60 5RF hydralazine 25 mg tablet 25 mg PO BID Qty: 180 3RF carbamazepine [Tegretol] 200 mg tablet 200 mg PO TID Qty: 90 1RF Patient Comments: 1st dose taken today 06/16 Referrals / Follow Up: Shira Brady MD [Primary Care Provider] - Within 2 Weeks Disposition Disposition (needs filled in before D/C Order can be placed): [facility] 06/21/23 1615 <Electronically signed by Katerina Moreno MD> Cosigner Signature (if applicable): CC: Dr. Lucille Colindres DO; Dr. Shira Brady MD; Dr. Ignacio Sifuentes MD ~ [facility] Work Phone: 1(981) 215-616105-12-2024 Progress note Author Lucille Colindres [facility] June 20, 2023 10:55am Note Date/Time June 20, 2023 10:42 am [facility] Medical Records Department [address] [place] [id number] Progress Note - Hospitalist 06/20/23 1040 MR#: [id number] Acct: [id number] Name: OLGA LINDSEY Rep #:[id number] : 1940 83 From: Lucille Colindres DO PCP: Dr. Shira Brady MD Status:ADM IN [id number] Reason for Visit Reason for Visit: Right hip pain after mechanical fall Subjective Subjective Patient denies any complaints at this time. He does state that the ice pack wasburning earlier so they took it off. Reports he is currently comfortable. He did indicate they got him up to stand him and he had a hard time with that. We did discuss that he would need to go to skilled facility at discharge and he understands. Did have some confusion last night and it was noted yesterday whenI saw him as per my note. I suspect this is related to anesthesia. Family has reported that he is sensitive to this and he indicated preoperatively that he had some sensitivities to medications as well. Objective Data Objective Data Vital Signs: Vital Signs Temp Pulse Resp BP Pulse Ox O2 Del Method O2 Flow Rate 99.1 F 130 H 15 114/72 94 Room Air 2 06/20/23 02:39 06/20/23 09:04 06/20/23 07:02 06/20/23 09:04 06/20/23 07:02 06/20/23 07:02 06/20/23 02:39 Oxygen Flow Rate (L/min) 2 Oxygen Delivery Method Room Air Weight: 82.4 kg Body Mass Index (BMI) 25.9 Intake & Output: Intake and Output for Last 24 Hours 06/18/23 06/19/23 06/20/23 23:59 23:59 23:59 Intake Total 350 / 550 710 / 1210 1150 / 1150 Output Total 1550 / 2300 2450 / 2800 550 / 550 Balance -1200 / -1750 -1740 / -1590 600 / 600 Lab / Micro Data 06/20/23 05:31 06/20/23 05:31 Labs: Laboratory Results - last 24 hr 06/20/23 05:31: WBC 8.1, RBC 2.80 L, Hgb 7.9 L, Hct 24.9 L, MCV 88.9, MCH 28.2, MCHC 31.7 L, RDW Std Deviation 51.8 H, RDW Coeff of Maday 15.9 H, Plt Count 110 L,MPV 9.7, Sodium 134 L, Potassium 4.1, Chloride 104, Carbon Dioxide 25.0, Anion Gap 5, BUN 22 H, Creatinine 0.53 L, Estim Creat Clear Calc 73.51, Est GFR (MDRD)Af Amer 191, Est GFR (MDRD) Non-Af 158, BUN/Creatinine Ratio 41.4 H, Glucose 116H, Calcium 9.1 Radiography Diagnostic Testing: Radiology Impression Hip X-Ray 06/19/23 08:00 IMPRESSION: No intraoperative complications noted during open reduction internal fixation of an intertrochanteric fracture of the right femur. Electronically Signed: Ignacio Natarajan MD at 13:38 EDT , Physical Exam Const alert, oriented x3, average body habitus, healthy appearing and well nourished; Negative for no apparent distress Constitutional Narrative: Elderly, white male, sitting up in bed, appears comfortable, alert and oriented x 3 but still some mild confusion noted as compared to baseline, appears comfortable and nontoxic at this time HEENT normocephalic and moist oral mucous membranes; Negative for head/scalp atraumatic HEENT Narrative: Mallampati is 2, no thrush, still significant ecchymosis surrounding right eye but less swelling noted today, vision is stable, laceration above the eye that was glued on emergency department appears to be healing Resp normal respiratory effort, no retractions, no use of accessory muscles and clearto auscultation bilaterally Cardio regular rate, S1 normal heart sound, S2 normal heart sound, no murmurs, no rub, no gallops and no clicks; Negative for regular rhythm Cardio Narrative: Irregular irregular rhythm GI normal to inspection, nondistended, normoactive bowel sounds, soft to palpation and non-tender Extremity no clubbing, cyanosis or edema Extremity Narrative: Postoperative dressing is in place and is clean dry and intact, no significant ecchymosis surrounding, mild tenderness Neuro oriented x3, moves all extremities and no focal motor deficits Neuro Narrative: Unable to move right lower extremity due to pain Sensorium / Orientation: awake, alert and oriented to person; Negative for oriented to place or oriented to time Speech: speech normal Psych affect normal Psych Narrative: Affect is flat but appropriate for current situation Assessment & Plan Assessment/Plan (1) Closed right hip fracture: (2) Fall: (3) Closed head injury: (4) Laceration: (5) Hypokalemia: PLAN: Plan Closed intertrochanteric fracture of the right hip -Imaging showed intertrochanteric fracture -Postop day 1 intramedullary nail done with Dr. Sifuentes -Continue scheduled Tylenol and as needed oxycodone -Discontinue IV pain medication -Continue bowel regimen with scheduled and as needed stool softeners available -Restart Eliquis today -PT/OT to follow -Weightbearing as tolerated -Knee-high HEATH hose recommended -Vitamin D level was greater than 30 -Outpatient follow-up with Dr. Sifuentes in 2 weeks -Consult case management/social work as I do anticipate that he will likely needplacement at discharge -Should be able to discharge once deemed medically stable-should not need pre- CERT Acute on chronic anemia -Baseline hemoglobin appears to be between 8 and 10 -7.9 this morning -40 mg of Lasix given -Repeat hemoglobin at noon -Anticoagulations restarted today per orthopedic surgery -Will repeat a.m.--> suspect this is related to volume status from intraoperative fluids and not active bleeding as there does not seem to be any identifiable bleeding Closed head injury/right supraorbital laceration -Closed with Dermabond -CT x 2 of brain unremarkable -Remains clinically stable -Continue monitor clinically for any change Mechanical fall -PT/OT consultation CAD/HTN/HPL -CABG x3 on 04/20/[address] Prasad in situ mammary end-to-side mid LAD, vein graft ascending aorta end-to-side obtuse marginal 1, vein graft ascending aorta end-to-side posterior descending (PDA) -Continue home aspirin -Continue home atorvastatin -Continue home hydralazine -Continue home diltiazem -Restart lisinopril tomorrow as blood pressure allows -As needed hydralazine available for systolic pressure greater than 160 -Most recent echocardiogram from 04/16/2022 showed an EF of 65% with a mildly enlarged left atrium--> repeat echo done today postoperative after his bypass isrelatively stable compared to previous Paroxysmal atrial fibrillation with RVR -Continue diltiazem -Eliquis restarted today History of trigeminal neuralgia -Continue home carbamazepine BPH with obstruction -Continue home Flomax Hypothyroidism -Continue levothyroxine -TSH is within normal limits Chronic tremor -Slightly worse currently due to pain -Continue to monitor History of meningioma -No current issues DVT prophylaxis -Continue home Eliquis CODE STATUS -Full code is verified Charges/Coding Visit Charges Inpatient E&M: 34771 Subs Hosp L2 06/20/23 1055 <Electronically signed by Lucille Colindres DO> Cosigner Signature (if applicable): CC: ~ Signed [facility] Work Phone: 1(765) 838-705205-12-2024 Progress note Author Ignacio Sifuentes [facility] June 20, 2023 9:24am Note Date/Time June 20, 2023 9:24a m [facility] Medical Records Department [address] [facility] [place] [address] Progress Note - Orthopedic 06/20/2313 MR#: [id number] Acct: [id number] Name: OLGA LINDSEY Rep #:[id number] : 1940 83 From: Ignacio Johnson PCP: Dr. Shira Brady MD Status:ADM IN Location: [facility] TW847-1 Subjective Subjective Patient is doing well this morning. He did have some confusion after anesthesiayesterday. His cognitive function has improved throughout the wound. He is alert and oriented this morning. Objective Data Objective Data Vital Signs: Vital Signs Temp Pulse Resp BP Pulse Ox O2 Del Method O2 Flow Rate 99.1 F 98 15 125/64 H 94 Room Air 2 06/20/23 02:39 06/20/23 07:02 06/20/23 07:02 06/20/23 02:39 06/20/23 07:02 06/20/23 07:02 06/20/23 02:39 Oxygen Flow Rate (L/min) 2 Oxygen Delivery Method Room Air Weight: 181 lb 10.574 oz Body Mass Index (BMI) 25.9 Intake & Output: Intake and Output for Last 24 Hours 06/18/23 06/19/23 06/20/23 23:59 23:59 23:59 Intake Total 350 / 550 710 / 1210 1150 / 1150 Output Total 1550 / 2300 2450 / 2800 550 / 550 Balance -1200 / -1750 -1740 / -1590 600 / 600 Lab / Micro Data Attestation: I reviewed the patient's lab results. 06/20/23 05:31 06/20/23 05:31 Labs: Laboratory Results - last 24 hr 06/20/23 05:31: WBC 8.1, RBC 2.80 L, Hgb 7.9 L, Hct 24.9 L, MCV 88.9, MCH 28.2, MCHC 31.7 L, RDW Std Deviation 51.8 H, RDW Coeff of Maday 15.9 H, Plt Count 110 L,MPV 9.7, Sodium 134 L, Potassium 4.1, Chloride 104, Carbon Dioxide 25.0, Anion Gap 5, BUN 22 H, Creatinine 0.53 L, Estim Creat Clear Calc 73.51, Est GFR (MDRD)Af Amer 191, Est GFR (MDRD) Non-Af 158, BUN/Creatinine Ratio 41.4 H, Glucose 116H, Calcium 9.1 Radiography Diagnostic Testing: Radiology Impression Hip X-Ray 06/19/23 08:00 IMPRESSION: No intraoperative complications noted during open reduction internal fixation of an intertrochanteric fracture of the right femur. Electronically Signed: Ignacio Natarajan MD at 13:38 EDT , Physical Exam Narrative Right lower extremity: Distal dressing is clean dry and intact. Proximal dressing does have some saturation. Sensations intact to light touch saphenous, sural, superficial peroneal, deep peroneal, and tibial distributions Motors intact EHL, DF, PF calves are soft and supple Const alert and oriented x3 Constitutional Narrative: Tearful Assessment & Plan Assessment/Plan (1) Closed right hip fracture: PLAN: Postop day 1 cephalomedullary nail right hip 1. DVT prophylaxis: Patient will resume Eliquis today 2. Pain control: Per primary service. Recommend minimizing use of narcotics Tylenol. Patient's kidney function appropriate nonsteroidal anti-inflammatory such as Mobic. 3. Physical therapy: Weightbearing as tolerated, activity as tolerated 4. Dressing: Proximal dressing wound changes 3 sides, contact with blood. Currently stable. Remove dressing in place after day 5 clean and dry okay to leave open to air. Currently patient can shower current dressings. 5. Anemia: Acute on chronic. Recent changes associated with hip fracture internal bleeding and perioperative blood loss. Vitals are stable at this time. 6. Disposition: Patient is doing well today. Will recommend follow-up with orthopedics in 2 weeks in the office with x-ray and removal of martina. Okay toremove dressing on postop day 5 and leave open to air clean and dry. Continue appropriate dressing changes if drainage continues. Contact orthopedics at drainage continues. Patient will likely need longterm upon discharge dueto nature of injury and surgical intervention. Please contact orthopedics if any further questions or concerns arise. [facility] Office: (2) Right knee pain: PLAN: X-rays reviewed. No acute fractures or bony lesions. No degenerative changes. As tolerated. 06/20/23 0959 <Electronically signed by Ignacio Sifuentes MD> Cosigner Signature (if applicable): CC: ~ Signed [facility] Work Phone: 1(494) 497-141505-11-2024 Progress note Author Lucille Colindres [facility] June 19, 2023 1:29pm Note Date/Time June 19, 2023 1:29p [facility] Medical Records Department [address] [place] [address] Progress Note - Hospitalist 06/19/23 1324 MR#: [id number] Acct: [id number] Name: OLGA LINDSEY Rep #:[id number] : 1940 83 From: Lucille Colindres DO PCP: Dr. Shira Brady MD Status:ADM IN [id number] Reason for Visit Reason for Visit: Mechanical fall with resultant right hip pain Subjective Subjective Patient seen postoperatively. Slight confusion but does complain that he is cold. I did get him some warm blankets. His right eye is matted so we cleaned this up for him as well. He denied any other needs at this time. Objective Data Objective Data Vital Signs: Vital Signs Temp Pulse Resp BP Pulse Ox O2 Del Method O2 Flow Rate 98.1 F 100 16 149/67 H 100 Room Air 2 06/19/23 11:17 06/19/23 11:17 06/19/23 11:17 06/19/23 11:17 06/19/23 11:17 06/19/23 11:17 06/19/23 10:15 Oxygen Flow Rate (L/min) 2 Oxygen Delivery Method Room Air Weight: 89 kg Body Mass Index (BMI) 28.1 Intake & Output: Intake and Output for Last 24 Hours 06/17/23 06/18/23 06/19/23 23:59 23:59 23:59 Intake Total 600 / 900 350 / 550 310 / 310 Output Total 500 / 1150 1550 / 2300 1150 / 1150 Balance 100 / -250 -1200 / -1750 -840 / -840 Lab / Micro Data 06/19/23 06:30 06/19/23 06:30 Labs: Laboratory Results - last 24 hr 06/19/23 06:30: WBC 7.8, RBC 3.45 L, Hgb 9.6 L, Hct 30.4 L, MCV 88.1, MCH 27.8, MCHC 31.6 L, RDW Std Deviation 52.5 H, RDW Coeff of Maday 16.1 H, Plt Count 142 L,MPV 10.0, PT 16.8 H, INR 1.4, APTT 37.4 H, Sodium 136, Potassium 4.2, Chloride 106, Carbon Dioxide 26.0, Anion Gap 4 L, BUN 15, Creatinine 0.59 L, Estim Creat Clear Calc 79.95, Est GFR (MDRD) Af Amer 169, Est GFR (MDRD) Non-Af 139, BUN/Creatinine Ratio 25.4 H, Glucose 112 H, Calcium 9.5, Blood Type B POSITIVE, Antibody Screen NEGATIVE Radiography Diagnostic Testing: Radiology Impression Knee X-Ray 06/18/23 12:50 IMPRESSION: 1. Osteopenia and mild osteoporotic changes. 2. No fracture malalignment or destructive bony process. Electronically Signed: Fredrick Diaz MD at 17:34 EDT , Physical Exam Const alert, average body habitus and well nourished; Negative for no apparent distress Constitutional Narrative: Elderly, white male, lying in bed, has just returned from surgery, slightly confused but cooperative, oriented to self only at this time Orientation / Consciousness: confused HEENT normocephalic and moist oral mucous membranes; Negative for head/scalp atraumatic HEENT Narrative: Ecchymosis around right eye has extended and eye is slightly swollen but vision per his report is stable, eye is slightly matted Resp normal respiratory effort, no retractions, no use of accessory muscles and clearto auscultation bilaterally Cardio regular rate, S1 normal heart sound, S2 normal heart sound, no murmurs, no rub, no gallops and no clicks; Negative for regular rhythm Cardio Narrative: Irregular irregular rhythm GI normal to inspection, nondistended, normoactive bowel sounds, soft to palpation and non-tender Extremity no clubbing, cyanosis or edema Extremity Narrative: Postoperative dressing in place with a small area of bloody drainage, no significant ecchymosis noted ice in place Neuro no focal motor deficits Sensorium / Orientation: awake, alert and oriented to person; Negative for oriented to place or oriented to time Speech: speech normal Psych Psych Narrative: Affect is flat but appropriate for current situation Assessment & Plan Assessment/Plan (1) Closed right hip fracture: (2) Fall: (3) Closed head injury: (4) Laceration: (5) Hypokalemia: PLAN: Plan Right closed hip fracture -Imaging showed intertrochanteric fracture -Postop day 0 intramedullary nail done with Dr. Sifuentes -Hold Eliquis--> last dose was p.m. of 06/16/2023--> okay to resume tomorrow morning per orthopedic surgery documentation -PT/OT to follow -Weightbearing as tolerated -Knee-high HEATH hose recommended -Continue SCDs for now -Vitamin D level was greater than 30 -Outpatient follow-up with Dr. Sifuentes in 2 weeks -Consult case management/social work as I do anticipate that he will likely needplacement at discharge Closed head injury/right supraorbital laceration -Closed with Dermabond -CT x 2 of brain unremarkable -Remains clinically stable -Continue monitor clinically for any change Mechanical fall -PT/OT consultation CAD/HTN/HPL -CABG x3 on 04/20/[address] Prasad in situ mammary end-to-side mid LAD, vein graft ascending aorta end-to-side obtuse marginal 1, vein graft ascending aorta end-to-side posterior descending (PDA) -Continue home aspirin -Continue home atorvastatin -Continue home hydralazine -Continue home diltiazem -Restart lisinopril tomorrow as blood pressure allows -As needed hydralazine available for systolic pressure greater than 160 -Most recent echocardiogram from 04/16/2022 showed an EF of 65% with a mildly enlarged left atrium--> repeat echo done today postoperative after his bypass isrelatively stable compared to previous Paroxysmal atrial fibrillation with RVR -Continue diltiazem -Hold Eliquis and restart tomorrow morning per orthopedic surgery documentation History of trigeminal neuralgia -Continue home carbamazepine BPH with obstruction -Continue home Flomax Hypothyroidism -Continue levothyroxine -TSH is within normal limits Chronic anemia -Hemoglobin appears to be stable -Apixaban on hold till tomorrow morning -Will follow blood counts while hospitalized -Expect some drop with fracture and pending surgery -Repeat CBC in a.m. Chronic tremor -Slightly worse currently due to pain -Continue to monitor History of meningioma -No current issues DVT prophylaxis -SCDs for now -Will restart Eliquis tomorrow morning CODE STATUS -Full code is verified Charges/Coding Visit Charges Inpatient E&M: 93850 Subs Hosp L2 06/19/23 1329 <Electronically signed by Lucille Colindres DO> Cosigner Signature (if applicable): CC: ~ Signed [facility] Work Phone: 1(753) 780-129605-11-2024 Consult note Author Ignacio Sifuentes [facility] June 19, 2023 8:15am Note Date/Time June 18, 2023 11:22 am [facility] Medical Records Department [address] [place] [address] Consultation - Orthopedics 06/18/23 1119 MR#: [id number] Acct: [id number] Name: OLGA LINDSEY Rep #:[id number] : 1940 83 From: Ignacio Johnson PCP: Dr. Shira Brady MD Status:ADM IN [id number] H[facility] Consult Data Date of Consult: 06/18/23 HPI Narrative Reason for Consultation: Right hip pain HPI Narrative: OLGA LINDSEY, is a 83 M with history of atrial fibrillation and chronic anticoagulation who presents today with right hip pain after a fall. Patient notes that he has a platform at the bedside to help his in and out of bed he stepped awkwardly off the platform and this with his foot falling onto his right hip. He also hit his face and had a laceration over his eye. He is contusion over his right eye. Patient notes he was unable to bear weight was brought to the emergency department was found to have intertrochanteric hip fracture. Patient reports pain is severe better with immobilization and pain medications as well as ice worse with movement. Denies any numbness and tingling distally. 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 Patient denies the use of cane or walker regularly. Patient does report he completes all ADLs except as daughter does not grocery shopping. Additionally, he reports pain in his right knee today. 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 Fall Hearing loss, left Hearing problem Heart attack Hemothorax on right History of hypothyroidism Hyperlipemia Hypertension Longstanding persistent atrial fibrillation Multiple fractures of ribs of right side Non-ST elevated myocardial infarction Trigeminal nerve disease Unstable angina Home Medications aspirin 81 mg chewable tablet 1 tab PO DAILY heart health 04/08/23 [History Last Taken 06/16/23] acetaminophen 500 mg tablet 1,000 mg (2 x 500 mg) PO Q8H PRN PRN fever or pain #50 tabs 04/21/23 [Rx Last Taken Unknown] apixaban 5 mg tablet 5 mg PO BID #60 tabs 04/21/23 [Rx Last Taken 06/16/23] atorvastatin 40 mg tablet (Lipitor) 40 mg PO QHS cholesterol #30 tabs 04/21/23 [Rx Last Taken 06/16/23] diltiazem HCl 240 mg capsule,extended release 24 hr 240 mg PO DAILY blood pressure #30 caps 04/21/23 [Rx Last Taken 06/16/23] ferrous gluconate 324 mg (37.5 mg iron) tablet 324 mg PO DAILY #90 tabs 04/21/23[Rx Last Taken 06/16/23] levothyroxine 50 mcg tablet 50 mcg PO DAILY@0600 #30 tabs 04/21/23 [Rx Last Taken 06/17/23] magnesium oxide 400 mg PO BID supplement #60 tabs 04/21/23 [Rx Last Taken 06/16/23] sennosides 8.6 mg-docusate sodium 50 mg tablet (Stool Softener-Stimulant Laxative) 2 tab PO BID #120 tabs 04/21/23 [Rx Last Taken Unknown] tamsulosin 0.4 mg capsule 0.4 mg PO DAILY@1730 #30 caps 04/21/23 [Rx Last Taken 06/16/23] lisinopril 5 mg tablet 5 mg PO BID #60 tabs 05/03/23 [Rx Last Taken 06/16/23] hydralazine 25 mg tablet 25 mg PO BID #180 tabs 05/10/23 [Rx Last Taken 06/16/23] carbamazepine 200 mg tablet (Tegretol) 200 mg PO TID seziures #90 tabs 06/11/23 [Rx Last Taken 06/17/23] cranberry 500 mg capsule 1,000 mg PO DAILY 06/17/23 [History Last Taken 06/16/23] Allergy/AdvReac Type Severity Reaction Status Date / Time No Known Allergies Allergy Verified 06/17/23 07:40 Family History Other Heart disease Surgical History (Reviewed 06/18/23 @ :[address] Ignacio Sifuentes MD) History of chest tube placement History of prostate surgery Hx of skin graft Hx of tonsillectomy Status post aorto-coronary artery bypass graft Social History Smoking Status: Former smoker how long ago did patient quit smokin02/08/1969 alcohol intake: never substance use type: does not use what type of physical activity do you participate in: none ROS ROS Narrative 14 point review of systems outside was mentioned in the HPI is negative Vital Signs Vital Signs Vital Signs: 06/17/23 12:00 06/17/23 12:39 06/17/23 13:00 Temperature 97.2 F L Temperature Source Pulse Rate 93 91 95 Pulse Strength Respiratory Rate 20 H 21 H 21 H Respiratory Effort Respiratory Depth Respiratory Pattern Blood Pressure 188/115 H 179/97 H 158/98 H Blood Pressure Mean 139 124 118 Blood Pressure Source Blood Pressure Position Blood Pressure Location Pulse Ox 93 93 95 Oxygen Delivery Method Room Air Oxygen Flow Rate (L/min) 06/17/23 14:18 06/17/23 16:02 06/17/23 16:31 Temperature Temperature Source Pulse Rate 102 H 82 Pulse Strength Respiratory Rate 14 Respiratory Effort Respiratory Depth Respiratory Pattern Blood Pressure 168/90 H 201/107 H Blood Pressure Mean 116 Blood Pressure Source Blood Pressure Position Blood Pressure Location Pulse Ox 94 Oxygen Delivery Method Room Air Room Air Oxygen Flow Rate (L/min) 06/17/23 17:32 06/17/23 14:58 06/17/23 15:53 Temperature 98.1 F 98.3 F Temperature Source Oral Oral Pulse Rate 82 111 H Pulse Strength Respiratory Rate 16 15 Respiratory Effort Respiratory Depth Respiratory Pattern Blood Pressure 201/107 H 184/95 H Blood Pressure Mean 138 124 Blood Pressure Source Monitor Monitor Blood Pressure Position Semi-Fowlers Semi-Fowlers Blood Pressure Location Left Arm Left Arm Pulse Ox 100 96 Oxygen Delivery Method Nasal Cannula Room Air Room Air Oxygen Flow Rate (L/min) 2 06/17/23 21:00 06/17/23 21:05 06/17/23 23:10 Temperature 97.1 F L Temperature Source Temporal Pulse Rate 103 H 95 Pulse Strength Respiratory Rate 18 Respiratory Effort Normal Non-Labored Respiratory Depth Normal Respiratory Pattern Normal Blood Pressure 108/55 L 100/53 L Blood Pressure Mean 72 Blood Pressure Source Monitor Blood Pressure Position Semi-Fowlers Blood Pressure Location Right Arm Pulse Ox 100 Oxygen Delivery Method Room Air Room Air Oxygen Flow Rate (L/min) 06/17/23 22:00 06/18/23 03:00 06/18/23 08:03 Temperature 97.2 F L Temperature Source Temporal Pulse Rate 93 Pulse Strength Strong (3+) Respiratory Rate 18 Respiratory Effort Respiratory Depth Respiratory Pattern Blood Pressure 118/57 L Blood Pressure Mean 77 Blood Pressure Source Monitor Blood Pressure Position Semi-Fowlers Blood Pressure Location Right Arm Pulse Ox 98 Oxygen Delivery Method Room Air Room Air Oxygen Flow Rate (L/min) 06/18/23 08:14 06/18/23 08:23 Temperature 98.2 F Temperature Source Oral Pulse Rate 89 84 Pulse Strength Respiratory Rate 18 Respiratory Effort Respiratory Depth Respiratory Pattern Blood Pressure 107/63 Blood Pressure Mean 77 Blood Pressure Source Monitor Blood Pressure Position Blood Pressure Location Pulse Ox 96 Oxygen Delivery Method Room Air Oxygen Flow Rate (L/min) Weight Weight: 180 lb 15.992 oz Body Mass Index (BMI) 25.9 Physical Exam Const alert and oriented x3 General Appearance: cooperative HEENT HEENT Narrative: Contusion of the right eye. Eyes PERRL Neck no JVD Resp normal respiratory effort Cardio Cardio Narrative: irregular pulse rate GI non-distended Extremity Extremity Narrative: Right lower extremity: Skin clean, dry, and intact. Posterior bruising and ecchymosis Limb is shortened and externally rotated Motor is intact dorsiflexion, EHL and plantar flexion. Sensation is intact to light touch saphenous, burak,l superficial peroneal, deep peroneal and tibial distributions. Calves are soft and supple. Tenderness palpation around the knee Skin Skin Narrative: Posterior thigh bruising and ecchymosis Neuro CN's II-XII intact bilaterally Psych mental status grossly normal Psych Narrative: [facility] Medical Records Data Attestation: I reviewed the patient's medical records Lab / Micro Data Attestation: I reviewed the patient's lab results. 06/18/23 07:10 06/18/23 07:10 Labs: Laboratory Results - last 24 hr 06/17/23 15:57: Vitamin D 25-Hydroxy 45.6 06/18/23 07:10: WBC 8.6, RBC 3.40 L, Hgb 9.6 L, Hct 29.9 L, MCV 87.9, MCH 28.2, MCHC 32.1, RDW Std Deviation 52.1 H, RDW Coeff of Maday 16.1 H, Plt Count 138 L, MPV 9.2, Immature Gran % (Auto) 0.300, Neut % (Auto) 70.7 H, Lymph % (Auto) 15.3L, Pettis % (Auto) 8.5, Eos % (Auto) 4.6, Baso % (Auto) 0.6, Absolute Neuts (auto)6.1, Absolute Lymphs (auto) 1.32, Nucleated RBC % 0, Sodium 136, Potassium 4.1, Chloride 105, Carbon Dioxide 25.0, Anion Gap 6, BUN 20 H, Creatinine 0.87, EstimCreat Clear Calc 67.59, Est GFR (MDRD) Af Amer 108, Est GFR (MDRD) Non-Af 89, BUN/Creatinine Ratio 23.0 H, Glucose 109 H, Calcium 9.2, Phosphorus 3.2, Magnesium 1.8, Total Bilirubin 0.60, AST 12 L, ALT 18, Alkaline Phosphatase 77, Total Protein 5.9 L, Albumin 2.9 L, Globulin 3.0, Albumin/Globulin Ratio 1.0 Imaging Radiology Impression Brain CT 06/17/23 14:47 IMPRESSION: 1. No acute intracranial abnormality. 2. Stable senescent changes. Electronically Signed: Constantino Euceda MD at 15:40 EDT , Right hip images full length femur and pelvis were reviewed as well as femur images consistent with minimally displaced right intertrochanteric hip fracture. Femur radiographs distally show degenerative changes of the knee. I do have some concern for a medial tibial plateau fracture. Cervical spine results were also reviewed showing multiple levels of degenerative disc disease, no acute fractures Assessment & Plan Assessment/Plan (1) Closed right hip fracture: PLAN: Natural history of the disease process was discussed the patient. Patientwas alert and able to discuss appropriately. Treatment options including nonoperative and operative intervention were discussed the patient. This includes cephalomedullary nail as appropriate operative intervention. Ultimately, I did not recommend nonoperative intervention. Patient was healthy and active prior to the injury and was a poor candidate for nonoperative treatment. Cephalomedullary nail was recommended as appropriate treatment. Risk and benefits of the procedure were discussed the patient clean but not limited to blood loss, DVTs, PEs, neurovascular damage, infection, risk of anesthesia include loss of life. Additionally discussed nonunion, malunion hardware failure and hardware cut out as a potential complication of the surgery. In addition to this we discussed postoperative expectations and rehabilitation including the potential for chronic use of cane or walker and loss of ambulation. Patient demonstrated understanding. Did inform me that hisdaughter is his primary sourcing assistant. I attempted to call her with no answer. A message was left with my cell phone number for her to contact me. Plan is to proceed with surgery tomorrow as Elimauricio was taken late Wednesday evening will need 48 hours to proceed with surgical intervention. Patient demonstrates understanding and is agreeable to this. Antibiotics were ordered on-call to theoperating room. (2) Acute on chronic anemia: PLAN: Primary service to monitor will transfuse as necessary. (3) Atherosclerotic heart disease of [place] coronary artery without angina pectoris: PLAN: Patient was receiving echo today. Will await final surgical optimization. (4) Right knee pain: PLAN: Patient reports pain after the fall will obtain x-rays of the knee to ensure no concomitant injuries and further care. 06/18/23 1133 <Electronically signed by Ignacio Sifuentes MD> Cosigner Signature (if applicable): CC: Dr. Shira Brady MD~ Signed ADDENDUM by Dr. Ignacio Sifuentes MD on 06/19/23 at 0808 Addendum pt seen and evaluated this AM optimized for surgery. spoke with family at bedside and answered any further questions. will proceed with surgery this AM. saw 06/19/23 0808<Electronically signed by Ignacio Sifuentes MD> Cosigner Signature (if applicable): cc: Dr. Shira Brady MD ~* Signed ADDENDUM by Dr. Ignacio Sifuentes MD on 06/19/23 at 0815 Addendum right knee x-ray from yesterday reviewed no acute fracture mild degenerative changes noted on non weight bearing films 06/19/23 0815<Electronically signed by Ignacio Sifuentes MD> Cosigner Signature (if applicable): cc: Dr. Shira Brady MD ~* Signed [facility] Work Phone: 1(857) 669-215805-11-2024 Procedure [facility] 06-18-2023 Progress note Author Lucille Colindres [facility] June 18, 2023 2:06pm Note Date/Time June 18, 2023 2:06p m [facility] Medical Records Department [address] [place] [id number] Progress Note - Hospitalist 06/18/23 1358 MR#: [id number] Acct: [id number] Name: OLGA LINDSEY Rep #:[id number] : 1940 83 From: Lucille Colindres DO PCP: Dr. Shira Brady MD Status:ADM IN [place] [facility] [id number] Reason for Visit Reason for Visit: R Hip pain s/p mech fall Subjective Subjective Patient states his pain is much better controlled. Only having pain if he triesto move at all. Echocardiogram performed and no wall motion abnormalities. Plan is for surgery tomorrow morning. Objective Data Objective Data Vital Signs: Vital Signs Temp Pulse Resp BP Pulse Ox O2 Del Method O2 Flow Rate 98.2 F 77 18 130/65 H 96 Room Air 2 06/18/23 08:23 06/18/23 11:23 06/18/23 08:23 06/18/23 11:23 06/18/23 08:23 06/18/23 09:15 06/17/23 17:32 Oxygen Flow Rate (L/min) 2 Oxygen Delivery Method Room Air Weight: 82.1 kg Body Mass Index (BMI) 25.9 Intake & Output: Intake and Output for Last 24 Hours 06/16/23 06/17/23 06/18/23 23:59 23:59 23:59 Intake Total 600 / 900 350 / 350 Output Total 500 / 1150 800 / 800 Balance 100 / -250 -450 / -450 Lab / Micro Data 06/18/23 07:10 06/18/23 07:10 Labs: Laboratory Results - last 24 hr 06/17/23 15:57: Vitamin D 25-Hydroxy 45.6 06/18/23 07:10: WBC 8.6, RBC 3.40 L, Hgb 9.6 L, Hct 29.9 L, MCV 87.9, MCH 28.2, MCHC 32.1, RDW Std Deviation 52.1 H, RDW Coeff of Maday 16.1 H, Plt Count 138 L, MPV 9.2, Immature Gran % (Auto) 0.300, Neut % (Auto) 70.7 H, Lymph % (Auto) 15.3L, Pettis % (Auto) 8.5, Eos % (Auto) 4.6, Baso % (Auto) 0.6, Absolute Neuts (auto)6.1, Absolute Lymphs (auto) 1.32, Nucleated RBC % 0, Sodium 136, Potassium 4.1, Chloride 105, Carbon Dioxide 25.0, Anion Gap 6, BUN 20 H, Creatinine 0.87, EstimCreat Clear Calc 67.59, Est GFR (MDRD) Af Amer 108, Est GFR (MDRD) Non-Af 89, BUN/Creatinine Ratio 23.0 H, Glucose 109 H, Calcium 9.2, Phosphorus 3.2, Magnesium 1.8, Total Bilirubin 0.60, AST 12 L, ALT 18, Alkaline Phosphatase 77, Total Protein 5.9 L, Albumin 2.9 L, Globulin 3.0, Albumin/Globulin Ratio 1.0 Radiography Diagnostic Testing: Radiology Impression Brain CT 06/17/23 14:47 IMPRESSION: 1. No acute intracranial abnormality. 2. Stable senescent changes. Electronically Signed: Constantino Euceda MD at 15:40 EDT , Echocardiogram 06/18/23 11:48 Interpretation Summary Moderate concentric left ventricular hypertrophy. The left ventricular ejection fraction is 55 %. Aortic sclerosis, no stenosis. There is severe biatrial dilatation. Mild tricuspid valve insufficiency. Ordering Physician: Lucille Colindres Referring Physician: Shira Brady M.D. Performed By: Koffi Villarreal and Student Physical Exam Const alert, oriented x3, average body habitus, healthy appearing and well nourished; Negative for no apparent distress Constitutional Narrative: Elderly, white male, sitting up in bed watching television, appears comfortable,nontoxic, much more comfortable than yesterday General Appearance: cooperative HEENT normocephalic and moist oral mucous membranes; Negative for head/scalp atraumatic HEENT Narrative: Ecchymotic area over and surrounding right eye with no ocular abnormalities Resp normal respiratory effort, no retractions, no use of accessory muscles and clearto auscultation bilaterally Cardio regular rate, S1 normal heart sound, S2 normal heart sound, no murmurs, no rub, no gallops and no clicks; Negative for regular rhythm Cardio Narrative: Irregular irregular rhythm GI normal to inspection, nondistended, normoactive bowel sounds, soft to palpation and non-tender Extremity no clubbing, cyanosis or edema Extremity Narrative: Right lower extremity is shortened and externally rotated Neuro oriented x3 and no focal motor deficits Neuro Narrative: Unable to move right lower extremity due to pain Speech: speech normal Psych affect normal Psych Narrative: Appears comfortable, nontoxic Assessment & Plan Assessment/Plan (1) Closed right hip fracture: (2) Fall: (3) Closed head injury: (4) Laceration: (5) Hypokalemia: PLAN: Plan Right closed hip fracture -Imaging shows intertrochanteric fracture -Preop chest x-ray was unremarkable for any acute findings -Preop EKG with A-fib with rate control -Patient is not having any chest pain or shortness of breath -Echocardiogram shows a normal EF at 55% with moderate LVH and biatrial enlargement which would explain his chronic atrial fibrillation with no wall motion abnormality--> patient had multivessel 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 of 06/16/2023 -Bedrest for now and PT/OT consultation postoperatively -SCDs until postoperatively -Vitamin D level was greater than 30 -Will restart Eliquis for DVT prophylaxis postoperatively when okay with Dr. Sifuentes -Orthopedic surgery following and plan is for cephalomedullary nail tomorrow morning -Consult case management/social work as I do anticipate that he will likely needplacement at discharge Closed head injury/right supraorbital laceration -Closed with Dermabond -CT x 2 of brain unremarkable -Repeat CT was pursued due to vomiting -Clinically stable -Continue monitor clinically for any change Hypokalemia -Resolved Mechanical fall -PT/OT to evaluate after surgery CAD/HTN/HPL -CABG x3 on 04/20/[address] Alex-YI in situ mammary end-to-side mid LAD, vein graft ascending aorta end-to-side obtuse marginal 1, vein graft ascending aorta end-to-side posterior descending (PDA) -Continue home aspirin -Continue home atorvastatin -Continue home hydralazine -Continue home diltiazem -Hold lisinopril for now and restart parts operatively -As needed hydralazine available for systolic pressure greater than 160 -Most recent echocardiogram from 04/16/2022 showed an EF of 65% with a mildly enlarged left atrium--> repeat echo done today postoperative after his bypass isrelatively stable compared to previous Paroxysmal atrial fibrillation with RVR -Continue diltiazem -Eliquis on hold due to fracture and in preparation for surgery on Wednesday morning -Restart Eliquis postoperatively when okay with orthopedic surgery History of trigeminal neuralgia -Continue home carbamazepine BPH with obstruction -Continue home Flomax Hypothyroidism -Continue levothyroxine -TSH is within normal limits Chronic anemia -Hemoglobin appears to be stable -Apixaban on hold in preparation for surgery -Will follow blood counts while hospitalized -Expect some drop with fracture and pending surgery Chronic tremor -Slightly worse currently due to pain -Continue to monitor History of meningioma -No current issues DVT prophylaxis -SCDs for now -Will restart Eliquis when appropriate per orthopedic surgery -Anticipate a.m. of 06/20/2023 CODE STATUS -Full code is verified Charges/Coding Visit Charges Inpatient E&M: 82041 Subs Hosp L2 06/18/23 1451 <Electronically signed by Lucille Colindres DO> Cosigner Signature (if applicable): CC: ~ Signed [facility] Work Phone: 1(239) 169-461505-09-2024 History and physical note Author Lucille Colindres [facility] June 17, 2023 6:01pm Note Date/Time June 17, 2023 11:16a m [facility] Medical Records Department [address] [place] [address] H&P Exam - Hospitalist 06/17/23 1113 MR#: [id number] Acct: [id number] Name: OLGA LINDSEY Rep #:[id number] : 1940 83 From: Lucille Colindres DO PCP: Dr. Shira Brady MD Status:ADM IN [place] [facility] [id number] HPI - General General Date of Admission: 06/17/23 Date of Service: 06/17/23 Chief Complaint: R Hip pain HPI Narrative OLGA LINDSEY, is a 83 M who presented to the emergency department at [facility] on 06/17/2023 after sustaining a mechanical fall. He indicatedhe got up out of bed to go to the bathroom and he had 1 step built up to his bedfor his who has some disability to help her get in bed and stepped onto thecarpeted step accidentally and lost his balance falling forward. He did hit hishead and had small laceration above his right eye and was complaining of some pain to his right eye area with no change in his vision as well as pain in his right hip area. He is chronically anticoagulated with Eliquis due to history ofatrial fibrillation. Vital signs on presentation showed temperature of 97.2, heart rate 87, blood pressure was 186/21 with repeat at 158/90, respiratory was 14 oxygen saturationswere 100% on room air. His initial EKG was atrial fibrillation with a ventricular rate of 88 bpm and no signs of ischemia. CBC showed a mild anemia with a hemoglobin of 11.5. Or slightly elevated but not dramatically abnormal given his history of Eliquis use. His chemistry panel showed mild hyponatremia with a potassium of 3.3 his glucose was 114. Extensive imaging was performed given his fall on Eliquis. He had a CT of his brain which showed soft tissue swelling at the right orbital region but no signs of fractures and only chronic involutional changes of the brain. CT of the cervical spine was unremarkable for any acute findings. Chest x-ray demonstrated hyperinflation with pleural-parenchymal changes at the right base. Sternotomy wires are noted. Pelvic x-rays and right femoral x-rays both demonstrated a nondisplaced right intertrochanteric fracture. He was given potassium placement as well as medications for pain and nausea and admitted to the medical floor. 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 Fall Hearing loss, left Hearing problem Heart attack Hemothorax on right History of hypothyroidism Hyperlipemia Hypertension Longstanding persistent atrial fibrillation Multiple fractures of ribs of right side Non-ST elevated myocardial infarction Trigeminal nerve disease Unstable angina Home Medications aspirin 81 mg chewable tablet 1 tab PO DAILY heart health 04/08/23 [History Last Taken 06/16/23] acetaminophen 500 mg tablet 1,000 mg (2 x 500 mg) PO Q8H PRN PRN fever or pain #50 tabs 04/21/23 [Rx Last Taken Unknown] apixaban 5 mg tablet 5 mg PO BID #60 tabs 04/21/23 [Rx Last Taken 06/16/23] atorvastatin 40 mg tablet (Lipitor) 40 mg PO QHS cholesterol #30 tabs 04/21/23 [Rx Last Taken 06/16/23] diltiazem HCl 240 mg capsule,extended release 24 hr 240 mg PO DAILY blood pressure #30 caps 04/21/23 [Rx Last Taken 06/16/23] ferrous gluconate 324 mg (37.5 mg iron) tablet 324 mg PO DAILY #90 tabs 04/21/23[Rx Last Taken 06/16/23] levothyroxine 50 mcg tablet 50 mcg PO DAILY@0600 #30 tabs 04/21/23 [Rx Last Taken 06/17/23] magnesium oxide 400 mg PO BID supplement #60 tabs 04/21/23 [Rx Last Taken 06/16/23] sennosides 8.6 mg-docusate sodium 50 mg tablet (Stool Softener-Stimulant Laxative) 2 tab PO BID #120 tabs 04/21/23 [Rx Last Taken Unknown] tamsulosin 0.4 mg capsule 0.4 mg PO DAILY@1730 #30 caps 04/21/23 [Rx Last Taken 06/16/23] lisinopril 5 mg tablet 5 mg PO BID #60 tabs 05/03/23 [Rx Last Taken 06/16/23] hydralazine 25 mg tablet 25 mg PO BID #180 tabs 05/10/23 [Rx Last Taken 06/16/23] carbamazepine 200 mg tablet (Tegretol) 200 mg PO TID seziures #90 tabs 06/11/23 [Rx Last Taken 06/17/23] cranberry 500 mg capsule 1,000 mg PO DAILY 06/17/23 [History Last Taken 06/16/23] Allergy/AdvReac Type Severity Reaction Status Date / Time No Known Allergies Allergy Verified 06/17/23 07:40 Family History Other Heart disease Surgical History History of chest tube placement History of prostate surgery Hx of skin graft Hx of tonsillectomy Status post aorto-coronary artery bypass graft Social History Smoking Status: Former smoker how long ago did patient quit smokin02/08/1969 alcohol intake: never substance use type: does not use what type of physical activity do you participate in: none ROS Constitutional Constitutional: Denies anorexia, change in weight, chills, fatigue, fever(s), malaise, night sweats, weakness or other Eyes Eyes: Denies blurry vision, change in eye color, change in vision, discharge from eye(s), double vision, erythema, eye pain, loss of vision or other ENT HEENT: Reports abnormal hearing and hearing loss; Denies dysphagia, ear pain, epistaxis, headache(s), nasal congestion, nasal discharge, post nasal drip, sinus pressure, sore throat or other Cardiovascular Cardiovascular: Denies chest pain, claudication, dyspnea on exertion, edema, lightheadedness, orthopnea, palpitations, paroxysmal nocturnal dyspnea, rapid heart rate, syncope or other Respiratory/Chest Respiratory/Chest: Denies cough, dyspnea, excessive phlegm production, hemoptysis, productive cough, shortness of breath at rest, shortness of breath with exertion, wheezing or other Gastrointestinal Gastrointestinal: Reports nausea and other Details: Dry heaving ; Denies abdominal pain, coffee ground emesis, constipation, diarrhea, dyspepsia, hematemesis, hematochezia, loose stools, melena or vomiting Genitourinary Genitourinary: Reports difficulty urinating, nocturia and urinary hesitancy; Denies burning urination, dysuria, hematuria, urinary frequency, urinary incontinence, urinary urgency or other Musculoskeletal Musculoskeletal: Reports joint pain and joint swelling; Denies arthralgias, backpain, joint stiffness, myalgias, neck pain or other Neurologic Neurologic: Reports abnormal gait; Denies abnormal speech, confusion, disequilibrium, dizziness, focal weakness, headache(s), numbness, paresthesias, seizure-like activity, seizures, syncope, tingling, tremor(s) or other Psychiatric Psychiatric: Denies anxiety, depression, homicidal ideation, suicidal ideation or other Endocrine Endocrinology: Denies change in body appearance, cold intolerance, excessive sweating, heat intolerance, polydipsia, polyuria or other Hematologic/Lymphatic Hematologic/Lymphatic: Denies anemia, easy bleeding, easy bruising, lymphadenopathy or other Allergic/Immunologic Allergic/Immunologic: Denies rhinitis, hives, eczemia, asthma or other Vital Signs Vital Signs Vital Signs: 06/17/23 07:40 06/17/23 07:44 06/17/23 08:39 Temperature 97.2 F L Temperature Source Temporal Pulse Rate 87 91 Respiratory Rate 14 19 H Respiratory Effort Normal Non-Labored Blood Pressure 186/121 H 158/90 H Blood Pressure Mean 142 112 Pulse Ox 100 99 Oxygen Delivery Method Room Air Room Air 06/17/23 09:00 Temperature Temperature Source Pulse Rate 104 H Respiratory Rate 26 H Respiratory Effort Blood Pressure 157/94 H Blood Pressure Mean 115 Pulse Ox 100 Oxygen Delivery Method Room Air Weight Weight: 92.6 kg Body Mass Index (BMI) 29.2 Physical Exam Const alert, oriented x3, average body habitus and well nourished; Negative for no apparent distress Constitutional Narrative: Elderly, white male, sitting up in bed, nursing at bedside, nurses aide at bedside, patient quite nauseated and actively dry heaving, does not appear toxicbut does appear uncomfortable General Appearance: cooperative HEENT normocephalic and moist oral mucous membranes; Negative for head/scalp atraumatic HEENT Narrative: Laceration above right eye that has been glued with Dermabond and ecchymotic area around right eye superior and inferior to the orbit, no significant hearingloss appreciated, Mallampati is 2, no thrush Eyes PERRL, EOMs intact bilaterally and conjunctivae normal Eyes Narrative: No scleral icterus Neck no lymphadenopathy and supple Neck Narrative: Trachea midline, no thyroid enlargement Resp normal respiratory effort, no retractions, no use of accessory muscles and clearto auscultation bilaterally Cardio S1 normal heart sound, S2 normal heart sound, no murmurs, no rub, no gallops andno clicks; Negative for regular rate or regular rhythm Cardio Narrative: Irregular irregular rhythm with slightly elevated heart rate GI normal to inspection, nondistended, normoactive bowel sounds, soft to palpation and non-tender Extremity no clubbing, cyanosis or edema Extremity Narrative: Right lower extremity is shortened and externally rotated Skin No no rashes or lesions noted, No no wounds, skin turgor normal, no jaundice, nopetechiae and no mottling Skin Narrative: Significant ecchymosis on face as noted above with laceration as noted above, well-healing sternotomy incision Neuro oriented x3, moves all extremities and no focal motor deficits Speech: speech normal Psych affect normal Psych Narrative: Appears comfortable, nontoxic Results Lab / Micro Data 06/17/23 08:08 06/17/23 08:08 Labs: Laboratory Results - last 24 hr 06/17/23 08:08: WBC 8.9, RBC 4.17 L, Hgb 11.5 L, Hct 36.5 L, MCV 87.5, MCH 27.6,MCHC 31.5 L, RDW Std Deviation 50.4 H, RDW Coeff of Maday 15.8 H, Plt Count 165, MPV 8.9, Immature Gran % (Auto) 0.900, Neut % (Auto) 79.2 H, Lymph % (Auto) 11.6L, Pettis % (Auto) 6.7, Eos % (Auto) 1.2, Baso % (Auto) 0.4, Absolute Neuts (auto)7.1, Absolute Lymphs (auto) 1.03, Nucleated RBC % 0, PT 16.2 H, INR 1.3, APTT 35.6, Sodium 140, Potassium 3.3 L, Chloride 108 H, Carbon Dioxide 28.0, Anion Gap 4 L, BUN 12, Creatinine 0.61 L, Estim Creat Clear Calc 81.40, Est GFR (MDRD)Af Amer 161, Est GFR (MDRD) Non-Af 133, BUN/Creatinine Ratio 19.5, Glucose 114 H, Calcium 10.1 Imaging Radiology Impression Brain CT 06/17/23 07:54 IMPRESSION: Chronic involutional changes of the brain. Soft tissue swelling overlying the right orbital region.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 which is stable. I spoke with Olga's dtr today and she tells me that Grace was increased to 50 mcg of Levothyroxine in February and this is likely why the TSH is now normal. He came to us on 25 mcg. Objective Data Objective Data Vital Signs: Vital Signs Temp Pulse Resp BP Pulse Ox O2 Del Method 97.5 F L 100 16 108/42 L 97 Room Air 04/19/23 05:42 04/19/23 06:28 04/19/23 05:42 04/19/23 08:04 04/19/23 05:42 04/19/23 05:42 Oxygen Delivery Method Room Air Weight: 181 lb 7.047 oz Body Mass Index (BMI) 25.9 Intake & Output: Intake and Output for Last 24 Hours 04/17/23 04/18/23 04/19/23 22:59 23:59 23:59 Intake Total 920 / 920 Output Total 1625 / 1625 Balance -705 / -705 Lab / Micro Data 04/19/23 05:07 04/19/23 05:07 Labs: Laboratory Results - last 24 hr 04/19/23 05:07: WBC 6.7, RBC 2.90 L, Hgb 8.2 L, Hct 25.8 L, MCV 89.0, MCH 28.3, MCHC 31.8 L, RDW Std Deviation 48.7 H, RDW Coeff of Maday 14.9 H, Plt Count 403, MPV 8.4, Sodium 137, Potassium 4.2, Chloride 106, Carbon Dioxide 26.0, Anion Gap5, BUN 21 H, Creatinine 0.69 L, Estim Creat Clear Calc 73.51, Est GFR (MDRD) Af Amer 141, Est GFR (MDRD) Non-Af 117, BUN/Creatinine Ratio 30.5 H, Glucose 95, Calcium 9.6, Total Bilirubin 0.30, AST 39 H, ALT 46, Alkaline Phosphatase 128 H,Total Protein 6.6, Albumin 2.3 L, Globulin 4.3 H, Albumin/Globulin Ratio 0.5 L, Carbamazepine 11.2 Micro: Microbiology 04/13/23 09:50 Stool Stool Occult Blood (LEW) - Final 04/09/23 04:40 Urine Catheter - Catheter Urine Culture - Final Meth. resistant Staph. aureus Physical Exam Const alert and no apparent distress General Appearance: cooperative HEENT moist oral mucous membranes Resp clear to auscultation bilaterally Resp Narrative: No conversational dyspnea Effort and Inspection: Negative for tachypneic Cardio Cardio Narrative: irreg irreg rhythm with controlled ventricular response. He denies palpitations. Denies orthopnea. GI normal to inspection, nondistended, normoactive bowel sounds, soft to palpation and non-tender GI Narrative: No guarding with palpation Extremity no calf tenderness General Extremity: Negative for edema Assessment & Plan Assessment/Plan (1) Physical debility: (2) Multiple fractures of ribs of right side: QUALIFIERS: Encounter type: subsequent encounter Fracture type: closed PLAN: No CP and no SOB today (3) Uncontrolled hypertension: (4) Urine retention: (5) Acute on chronic anemia: (6) Action tremor: PLAN: Plan 1. Continue therapy 2. Increase levothyroxine to 50 mcg daily 3. Check a serum iron, percent iron saturation, ferritin and retic count today. Stool is heme negative. ` 4. Increase hydralazine to 50 mg p.o. twice daily and continue to monitor bloodpressures. 5. Olga is agreeable to trying to manage meds with a pill box. His dtr will assist him in setting up the pill boxes. He is also agreeable to having [facility] but, this is a hard sell for him. 6. will reinsert Justin. Will need a SN at [place] to help manage the Justin at home. 7. Follow up with urology as OP. I suspect he has neurogenic bladder. Charges/Coding Visit Charges Inpatient E&M: 39781 Subs Hosp L2 04/20/231926 <Electronically signed by Brandee Monterroso DO> Brandee Monterroso DO Cosigner Signature (if applicable): CC: ~ Signed [facility] Work Phone: 1(777) 382-283803-08-2024 Progress note Author Brandee Kriss [facility] April 16, 2023 4:48pm Note Date/Time April 16, 2023 1:50 pm [facility] Medical Records Department [address] [place] [address] Progress Note 04/16/23 1348 MR#: [id number] Acct: [id number] Name: OLGA LINDSEY Rep #:[id number] : 1940 83 From: Brandee Monterroso DO PCP: Dr. Shira Brady MD Status:ADM IN Location: [place] [address] Subjective Subjective Afebrile VSS Maintaining appropriate oxygen saturation on RA Oral intake - FOOD good FLUIDS good Discussed with nursing - no problems that need addressed Reviewed the THERAPY notes Medication list reviewed. The Justin was removed yesterday. He had 2 bladder scans that were greater than 300 cc with no urge to void and the Justin has been reinserted. Lab for today is pending. TSH has been high the past few times it was checked. T4 has been low since 01/14/21. TSH and T4 are pending. There is a drug interaction between carbamazepine and levothyroxine. May need to increase the levothyroxine dose. Carbamazepine level is also pending. Urine in the Justin bag is pale yellow and clear. Denies cephalgia, lightheadedness, vertigo, chest pain, cough, shortness of breath, nausea/vomiting/abdominal pain, diarrhea/constipation, dysuria and calf pain. Objective Data Objective Data Vital Signs: Vital Signs Temp Pulse Resp BP Pulse Ox O2 Del Method 98.7 F 95 15 121/57 H 96 Room Air 04/16/23 08:41 04/16/23 08:46 04/16/23 08:41 04/16/23 08:46 04/16/23 08:41 04/16/23 10:00 Oxygen Delivery Method Room Air Weight: 181 lb 7.047 oz Body Mass Index (BMI) 25.9 Intake & Output: Intake and Output for Last 24 Hours 04/14/23 04/15/23 04/16/23 23:59 23:59 23:59 Intake Total 1690 / 1690 1880 / 1880 720 / 720 Output Total 1450 / 1450 1800 / 1800 1075 / 1075 Balance 240 / 240 80 / 80 -355 / -355 Lab / Micro Data 04/14/23 05:30 04/13/23 05:45 Micro: Microbiology 04/13/23 09:50 Stool Stool Occult Blood (LEW) - Final 04/09/23 04:40 Urine Catheter - Catheter Urine Culture - Final Meth. resistant Staph. aureus Physical Exam Const alert and no apparent distress General Appearance: cooperative HEENT moist oral mucous membranes Resp Resp Narrative: Diminished in the right base with a few coarse crackles. No cough with deep inspiration. Denies shortness of breath. Cardio Cardio Narrative: irreg irreg rhythm with controlled ventricular response. He denies palpitations. Denies orthopnea. GI normal to inspection, nondistended, normoactive bowel sounds, soft to palpation and non-tender GI Narrative: No guarding with palpation Extremity no calf tenderness General Extremity: Negative for edema Assessment & Plan Assessment/Plan (1) Physical debility: (2) Multiple fractures of ribs of right side: QUALIFIERS: Encounter type: subsequent encounter Fracture type: closed (3) Uncontrolled hypertension: (4) Urine retention: (5) Acute on chronic anemia: (6) Action tremor: PLAN: Plan 1. Continue therapy 2. Check TSH, T4, T3, carbamazepine level. 3. DC the Justin and bladder scan if he goes more than 6 hours without voiding. Straight cath if residual or bladder scan is > 300. Do this for the next 48 hours and if he continues to retain will reinsert the Justin and have him follow up with urology as OP. 4. Dc Seroquel, albuterol/ipratropium and doxazosin. 5. CBC and CMP on Wednesday 6. Bactrim will conclude after his second dose tomorrow. 7. I suspect we are going to need to increase the levothyroxine dose because ofthe drug interaction between carbamazepine and levothyroxine. Charges/Coding Visit Charges Inpatient E&M: 95828 Subs Hosp L1 04/16/23 1434 <Electronically signed by Brandee Monterroso DO> Brandee Monterroso DO Cosigner Signature (if applicable): CC: ~ Signed ADDENDUM by Dr. Brandee Monterroso DO on 04/16/23 at 1648 Addendum TSH is normal at 2.87 and the free T4 is also normal at 0.81. I suspect he may be somewhat noncompliant with his medications at home and he has known cognitivedeficits. Will need someone to supervise medications following discharge from rehab. Carbamazepine is mildly increased at 12.3, suspect due to the interaction with Seroque. Seroquel has been discontinued. Will hold the next dose and recheck a level on Wednesday. 04/16/23 1648 <Electronically signed by Brandee beauchamp DO> Date _ Brandee Monterroso DO Cosigner Signature (if applicable): Date cc: ~* Signed [facility] Work Phone: 1(542) 930-118103-08-2024 Progress note Author Brandee Monterroso [facility] April 16, 2023 1:45pm Note Date/Time April 15, 2023 11:5 6am [facility] Medical Records Department [address] [place] [address] Progress Note 04/15/23 1152 MR#: [id number] Acct: [id number] Name: OLGA LINDSEY Rep #:[id number] : 1940 83 From: Brandee Monterroso DO PCP: Dr. Shira Brady MD Status:ADM IN Location: [place] [address] Subjective Subjective Afebrile VSS-he had 1 blood pressure of 98/50 yesterday but I think this is a false number. Blood pressures have been elevated the past 24 hours. Repeat orthostatics were negative. Maintaining appropriate oxygen saturation on RA Oral intake - FOOD good FLUIDS good Discussed with nursing - no problems that need addressed Reviewed the THERAPY notes Medication list reviewed. Olga is c/o tremors in his hands with activity. He has had this in the past but, it seems to be getting worse. Possibly due to increased Carbamazepine level due to drug interactions with Seroquel, Tramadol. Has not taken any breathing treatments since admission. Denies rib pain, CP, SOB, cough, N/V, abd pain, diarrhea/constipation, dysuria and calf tenderness. Denies lightheadedness. Objective Data Objective Data Vital Signs: Vital Signs Temp Pulse Resp BP Pulse Ox O2 Del Method 98.5 F 83 17 142/96 H 97 Room Air 04/15/23 06:00 04/15/23 08:10 04/15/23 06:00 04/15/23 08:10 04/15/23 06:00 04/15/23 06:00 Oxygen Delivery Method Room Air Weight: 181 lb 7.047 oz Body Mass Index (BMI) 25.9 Intake & Output: Intake and Output for Last 24 Hours 04/13/23 04/14/23 04/15/23 23:59 23:59 23:59 Intake Total 1650 / 1650 1690 / 1690 1060 / 1060 Output Total 2100 / 2100 1450 / 1450 1100 / 1100 Balance -450 / -450 240 / 240 -40 / -40 Lab / Micro Data 04/14/23 05:30 04/13/23 05:45 Micro: Microbiology 04/13/23 09:50 Stool Stool Occult Blood (LEW) - Final 04/09/23 04:40 Urine Catheter - Catheter Urine Culture - Final Meth. resistant Staph. aureus Assessment & Plan Assessment/Plan (1) Physical debility: (2) Multiple fractures of ribs of right side: QUALIFIERS: Encounter type: subsequent encounter Fracture type: closed (3) Uncontrolled hypertension: (4) Urine retention: (5) Acute on chronic anemia: (6) Action tremor: PLAN: Plan 1. Continue therapy 2. Increase lisinopril to 5 mg p.o. twice daily. Continue Cardizem CD 240 mg once daily, hydralazine 25 mg twice daily and doxazosin 1 mg at at bedtime. 3. Voiding trial today. 4. check a carbamazepine level. Charges/Coding Visit Charges Inpatient E&M: 16569 Subs Hosp L1 04/16/23 1345 <Electronically signed by Brandee Monterroso DO> Brandee Monterroso DO Cosigner Signature (if applicable): CC: ~ Signed [facility] Work Phone: 1(741) 412-794103-05-2024 Progress note Author Brandee Monterroso [facility] April 13, 2023 8:56am Note Date/Time April 13, 2023 8:50 am [facility] Medical Records Department [address] [place] [address] Progress Note 04/13/23 0843 MR#: [id number] Acct: [id number] Name: OLGA LINDSEY Rep #:[id number] : 1940 83 From: Brandee Monterroso DO PCP: Dr. Shira Brady MD Status:ADM IN Location: [place] [address] Subjective Subjective Day #04/14 of Bactrim for MRSA UTI Afebrile VSS-systolic blood pressure remains high and over the past 24 hours has ranged from 142/67 to 187/91. Pulse is ranged from 71-87. Maintaining appropriate oxygen saturation on RA Oral intake - FOOD good FLUIDS good Having regular bowel movements. Discussed with nursing - no problems that need addressed Reviewed the THERAPY notes Medication list reviewed. Antihypertensives include doxazosin 1 mg nightly, lisinopril 5 mg daily, Cardizem CD 240 mg daily and as needed hydralazine 10 mg. He received 10 mg of hydralazine last night for blood pressure of 187/91 and 1 hour later it was 164/72. All lab drawn this morning was personally reviewed. The white blood cell count is normal at 7. Hemoglobin is 7.9, down from 8.8 on 04/09/2023. Platelets are within normal limits. Sodium is 141 and the potassium is 4.1. BUN is down to 18 from 21 and the creatinine is stable at 0.74. LFTs are normal. PSA is good at 1.73. Objective Data Objective Data Vital Signs: Vital Signs Temp Pulse Resp BP Pulse Ox O2 Del Method 97.7 F L 87 18 168/80 H 97 Room Air 04/13/23 06:00 04/13/23 06:00 04/13/23 06:00 04/13/23 06:00 04/13/23 06:00 04/13/23 06:00 Oxygen Delivery Method Room Air Weight: 182 lb 8.684 oz Body Mass Index (BMI) 26.2 Intake & Output: Intake and Output for Last 24 Hours 04/11/23 04/12/23 04/13/23 23:59 23:59 23:59 Intake Total 2320 / 2320 1620 / 1620 Output Total 2075 / 2075 1700 / 1700 700 / 700 Balance 245 / 245 -80 / -80 -700 / -700 Lab / Micro Data 04/13/23 05:45 04/13/23 05:45 Labs: Laboratory Results - last 24 hr 04/13/23 05:45: WBC 7.0, RBC 2.72 L, Hgb 7.9 L, Hct 24.5 L, MCV 90.1, MCH 29.0, MCHC 32.2, RDW Std Deviation 47.4 H, RDW Coeff of Maday 14.3, Plt Count 262, MPV 8.8, Immature Gran % (Auto) 0.700, Neut % (Auto) 61.4, Lymph % (Auto) 19.6, Pettis% (Auto) 12.5 H, Eos % (Auto) 5.2 H, Baso % (Auto) 0.6, Absolute Neuts (auto) 4.3, Absolute Lymphs (auto) 1.37, Nucleated RBC % 0, Sodium 141, Potassium 4.1, Chloride 106, Carbon Dioxide 27.0, Anion Gap 8, BUN 18, Creatinine 0.74, Estim Creat Clear Calc 73.51, Est GFR (MDRD) Af Amer 131, Est GFR (MDRD) Non-Af 108, BUN/Creatinine Ratio 24.4 H, Glucose 92, Calcium 9.3, Total Bilirubin 0.30, AST 35, ALT 36, Alkaline Phosphatase 101, Total Protein 5.9 L, Albumin 2.3 L, Globulin 3.6, Albumin/Globulin Ratio 0.6 L, PSA Screen 1.73 Micro: Microbiology 04/09/23 04:40 Urine Catheter - Catheter Urine Culture - Final Meth. resistant Staph. aureus Physical Exam Const alert and no apparent distress General Appearance: cooperative HEENT moist oral mucous membranes Resp Resp Narrative: Diminished in the right base with a few coarse crackles. No cough with deep inspiration. Denies shortness of breath. Effort and Inspection: Negative for tachypneic or labored Cardio Cardio Narrative: irreg irreg rhythm with controlled ventricular response. He denies palpitations. Denies orthopnea. GI normal to inspection, nondistended, normoactive bowel sounds, soft to palpation and non-tender GI Narrative: No guarding with palpation Extremity no calf tenderness General Extremity: Negative for edema Assessment & Plan Assessment/Plan (1) Physical debility: (2) Multiple fractures of ribs of right side: QUALIFIERS: Encounter type: subsequent encounter Fracture type: closed (3) Uncontrolled hypertension: (4) Urine retention: (5) Acute on chronic anemia: PLAN: Plan 1. Continue therapy 2. Start hydralazine 25 mg p.o. twice daily for better blood pressure control and continue as needed hydralazine for uncontrolled hypertension. 3. Hemoccult stool today 4. Orthostatic vital signs today 5. Continue Bactrim for MRSA UTI 6. Recheck H&H in a.m. Charges/Coding Visit Charges Inpatient E&M: 66426 Subs Hosp L1 04/13/23 0856 <Electronically signed by Brandee Monterroso DO> Brandee Monterroso DO Cosigner Signature (if applicable): CC: ~ Signed [facility] Work Phone: 1(988) 594-970503-04-2024 Progress note Author [facility] April 12, 2023 4:05pm Note Date/Time April 12, 2023 11:3 0am [facility] Medical Records Department [address] [place] [address] Progress Note 04/12/23 1120 MR#: [id number] Acct: [id number] Name: OLGA LINDSEY Rep #:[id number] : 1940 83 From: Brandee Monterroso DO PCP: Dr. Shira Brady MD Status:ADM IN Location: [id number] Subjective Subjective Olga was seen on team rounds today. Olga's daughter Yuridia was present in the room for rounds. She is aware that he lacks judgement at times. Both her mother and father have not been wanting to face that they have been declining. Olga's is physically disabled but, she is able to take care of finances andhelp with medications. Jazzy also helps with medications. Olga is able to physically assist his in the house. 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 We explained we are concerned about his safety. his was very tearful on rounds and all he wants is to go home so he can take care of his . Bactrim day # 2/ for MRSA urinary tract infection Afebrile VSS-blood pressures remain uncontrolled. Blood pressures for the past 3 days have ranged from 126/63 to 173/106. Heart rates have ranged from 78-98. No bradycardia. Maintaining appropriate oxygen saturation on RA Oral intake - FOOD very good FLUIDS good Discussed with nursing - no problems that need addressed Reviewed the THERAPY notes Medication list reviewed. Denies rib pain. He denies SOB at rest but, when ambulating without an AD he became SOB and had to sit down and rest. No coughing. Has not requested an aerosol treatment. Not tachypneic at rest. Denies suprapubic pain, penile pain, calf pain, cephalgia, lightheadedness. Olga denies feeling depressed. He is sad that he is not at home helping his Kimmie. They have only been apart 3 times in the 57 years they have been . He is willing to sell his horses so that he does not have to care for them. Objective Data Objective Data Vital Signs: Vital Signs Temp Pulse Resp BP Pulse Ox O2 Del Method 99.0 F 80 20 H 154/72 H 96 Room Air 04/12/23 06:00 04/12/23 06:00 04/12/23 06:00 04/12/23 06:00 04/12/23 06:00 04/12/23 09:01 Oxygen Delivery Method Room Air Weight: 182 lb 8.684 oz Body Mass Index (BMI) 26.2 Intake & Output: Intake and Output for Last 24 Hours 04/10/23 04/11/23 04/12/23 23:59 23:59 23:59 Intake Total 2130 / 2330 2320 / 2320 580 / 580 Output Total 1350 / 2100 2075 / 2075 650 / 650 Balance 780 / 230 245 / 245 -70 / -70 Lab / Micro Data 04/09/23 05:14 04/09/23 05:14 Micro: Microbiology 04/09/23 04:40 Urine Catheter - Catheter Urine Culture - Final Meth. resistant Staph. aureus Physical Exam Const alert, oriented x3 and no apparent distress Constitutional Narrative: He is sitting in the recliner and appears comfortable. General Appearance: cooperative HEENT moist oral mucous membranes Resp Resp Narrative: He has diminished breath sounds in the right base however there is more air exchange than there was at admission to rehab. No wheezing. There are a few coarse crackles in the right base. He is able to take a deep breath without coughing. He denies any rib breaking when taking a deep breath. He is not tachypneic at rest and has no conversational dyspnea. Effort and Inspection: Negative for labored Cardio Cardio Narrative: irreg irreg rhythm with controlled ventricular response. He denies palpitations. Denies orthopnea. GI normal to inspection, nondistended, normoactive bowel sounds, soft to palpation and non-tender GI Narrative: No guarding with palpation Extremity no calf tenderness General Extremity: Negative for edema Skin Wound Narrative: The wound created by the chest tube in the right chest is healing. There is a small spot of dried serosanguineous drainage on the bandage but there is no erythema around the puncture site and no swelling. He did Norovirus with palpation of the area around the previous chest tube Neuro CN's II-XII intact bilaterally and no focal motor deficits Psych Psych Narrative: Tearful and realizes he could be depressed with the recent events but, he tells himself he is not going to go there. She is sleeping well at night and he has agood appetite. He is cooperative with therapy and never refuses to do therapy. He is tearful but, I would not call him depressed at this time. Appearance: appropriate Attitude: No agitated Activity / Motor Behavior: Negative for restless Mood & Affect: Negative for anxious Assessment & Plan Assessment/Plan (1) Physical debility: (2) Multiple fractures of ribs of right side: (3) Uncontrolled hypertension: (4) Urine retention: PLAN: Etiology undetermined at this time. With his age he may have BPH but could also have prostate cancer. He could also have a neurogenic bladder. He denies any back pain or pain that radiates into his legs but, after reviewing the EMR he has apparently complained of back pain in the past. PLAN: Plan 1. Continue therapy 2. DC clonidine. Start doxazosin 1 mg p.o. nightly 3. Hydralazine 10 mg every 6 hours as needed systolic greater than 160 or diastolic greater than 90 4. CMP and CBC in the AM 5. Orthostatics daily X 3 days. Denies lightheadedness. 6. Continue the Bactrim for a total of 7 days. Can not increase the Lisinoprilwhile he is on Bactrim due to a drug interaction. 7. He is very unaware of his deficits. Poor safety awareness. Balance is poorand he is at risk for falls. His story about how often he uses a WW at home changes from day to day. 8. Voiding trial at the end of the week. I informed Olga and Yuridia that he has had CVA's in the past even though he has never been diagnosed with this. There are areas of encephalomalacia within the posterior right occipital lobe and there is mild cerebellar atrophy. He had a CT scan of the brain done in 2013 that showed a possible left cerebellar stroke. MRI done in 2015 showed no evidence of prior strokes. 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 I suspect these posterior strokes contribute to his poor balance/proprioception. All Yuridia and Olga's questions were answered while on team rounds. Charges/Coding Visit Charges Inpatient E&M: 11671 Subs Hosp L2 04/12/23 4702 <Electronically signed by Brandee Monterroso DO> Brandee Monterroso DO Cosigner Signature (if applicable): CC: ~ Signed [facility] Work Phone: 1(128) 901-688303-02-2024 History and physical note Author [facility]ee [facility] April 10, 2023 11:02am Note Date/Time April 09, 2023 11:3 6am [facility] Medical Records Department [address] [place] [address] Post Admission Physician Selena 04/09/23 1135 MR#: [id number] Acct: [id number] Name: CÉSAROLGA Rep #:[id number] : 1940 83 From: Brandee Monterroso DO PCP: Dr. Shira Brady MD Status:ADM IN Location: [id number] Admission Information Primary Diagnosis:: Physical debility post fall with multiple rib fractures and hemothorax. Status Changes from Prescreening?: No changes Identified Actual Problem List:: Bleeding, Falls, Skin Intergrity, Pain, ALteration in Cmfrt, Alteration in Sleep, Mobility Impaired, Self Care Deficit, BP, Hypertension, Alteration/ Air Exchange and Alteration-Leisure Activ. 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 and Stroke patients assessed for lethargy or change in status. Infection: Clinical Staff to Monitor for S/S of infection: and S/S of infection include fever, redness, warmth, etc. Urinary Tract Infection: Monitor for frequency, burning, discomfort, or incontinence. and Nursing will obtain urine sample for urinalysis and C&S when ordered. Aspiration: Clinical staff will monitor for coughing, drooling, congestion., Speech will evaluate swallowing and dsyphasia. and Nursing will monitor patient swallowing during meals. Falls: Patient will be evaluated for Fall Precautions and Patient will be placedon Fall Precautions as indicated per protocol. Skin Breakdown: Nursing will assess skin daily using assessment tool. and Nursing will place on Skin Breakdown Precautions as indicated. Pain: Clinical staff will assess patient's pain level per protocol., Medicationswill be given, if needed, and the pain level reassessed. and Other methods: Massage, distraction, decrease stimulus, etc. used PRN. Plan of Care Patient requires physician specializing in physical medicine and rehab oversightto provide close medical supervision of rehab issues including: Pain Management,Sleep Problems, Bowel and Bladder, Medical and co-morbidity Management, DVT prophylaxis, Rehabilitation Leadership and Coordination of treatment team Patient needs Physical Therapy: For a minimum of 1 hour and At least 5 out of 7 days Patient needs Physical Therapy to improve:: Mobility, Strengthening, Transfers, Stretching, ROM, Endurance, Stairs, Gait and Balance Patient needs Occupational Therapy: For a minimum of 1 hour and At least 5 out of 7 days Patient needs Occupational Therapy to improve ADL's incl.: Eating, Grooming, Bathing, Dressing, Toileting, Toilet transfers, Community Reintegration, Higher functioning activities, Household tasks, Adaptive Equipment, Splinting and Otheractivities as determined Patient requires speech therapy: For a minimum of 1 hour and At least 5 out of 7days Patient requires speech therapy for: Swallowing, Cognition, Language Skills and Compensatory Strategies Patient requires 24/7 Rehabilitation Nursing for: Pain Issues, Identifying and preventing risk factors, Monitoring and reporting current medical conditions, Assisting with ambulation, transfer, and all ADL's, Teaching patients about disease process and medications, Family teaching, Providing safe environment, Bowel and Bladder Issues, Skin integrity and Medication Management Patient needs Fourdrinier Machine Tender/ Case Management for: Discharge Planning, Arranging Home Equipment or Services and Family Interventions Patient needs Dietary and Nutrition Services for: Adequate Nutrition, Nutritional Supplements and Nutritional Education Goals Goals Patient will remain: free from falls Patient will perform eating at: MOD I level of assist. Patient will perform bed mobility at: MOD I level of assist. Patient will complete transfers from bed to chair at: MOD I level of assist. Patient will ambulate: 50 feet (50 feet without a device on various surfaces at mod I. 165 feet with a wheeled walker) Patient will complete upper body dressing at: MOD I level of assist. Patient will complete lower body dressing at: MOD I level of assist. Patient will complete toilet transfer at: MOD I level of assist. Patient will complete toileting at: MOD I level of assist. Patient will perform bathing at: MOD I level of assist. Patient will perform Tub/Shower transfer at: MOD I level of assist. Patient will complete grooming at: MOD I level of assist. Patient will complete home management skills at: MOD I level of assist. Patient will achieve: 12 stairs (He will ascend/descend 12 steps with 1 handrailat standby assist to allow access to his basement. He will complete 1 curb stepfor community access with the least restrictive device at standby assist to allow access for his doctors appointments.) Patient will have pain level of: of 3 or less Patient's skin will: remain intact Patient will receive: adequate nutrition. Discharge Planning Pt Prognosis for Sig. Practical Improv. w/in Reasonable Time: Good Estimated Length of stay (days): 21 Anticipated D/C Destination: Home Was Preadmission Assessment Accurate?: Yes 04/10/23 1102 <Electronically signed by Brandee Monterroso DO> Cosigner Signature (if applicable): CC: ~ Signed [facility] Work Phone: 1(359) 310-203303-01-2024 History and physical note Author Brandee Monterroso [facility] April 09, 2023 11:45am Note Date/Time April 09, 2023 9:40 am [facility] Medical Records Department [address] [place] [address] History & Physical Exam 04/09/23919 MR#: [id number] Acct: [id number] Name: OLGA LINDSEY Rep #:[id number] : 1940 83 From: Brandee Monterroso DO PCP: Dr. Shira Brady MD Status:ADM IN Location: [place] [address] HPI - General General Date of Admission: 04/08/23 Date of Service: 04/09/23 Chief Complaint: multiple rib fractures HPI Narrative OLGA LINDSEY, is a 83 YO M with a PMH of chronic AF, chronic anticoagulation withEliquis, HLD, HTN, CAD, hx of NSTEMI, Hx of CABG, trigeminal neuralgia, historyof meningioma and hypothyroidism who presented to the ED at [facility] on 04/01/2023 c/o R rib pain after a fall. CT chest showed acute minimally displaced fractures of the lateral right-sided ninth, eighth and seventh ribs. There was softtissue emphysema adjacent to the right sided ribs within the chest wall. Bones appeared osteopenic. CT of the abdomen/pelvis showed a right-sided hemothorax with right side pulmonary hemorrhage and contusions secondary to multiple right-sided rib fractures and no CT evidence of acute intra-abdominal disease. CT head showed no acute processes. There was an old right occipital lobe infarct present He was transferred to [facility] hospital for further trauma evaluation. A chest tube was placed on the R. The CT was placed to water seal on 04/05/23 and removed on 04/07/2023. He required no surgical intervention for rib fractures. He was transferred to acute inpt rehab at [facility] on 04/08/23 for 3 hours of therapy daily to restore function/independence at or near his level prior to the trauma. While at [facility] he had delirium and was requiring a sitter. He apparently had delirium through the night prior to transfer and we were told that the delirium had resolved. He was transferred on no sedating medications and on no pain meds. 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 There were no acute changes. BP at arrival on rehab was 194/95. He received Catapres and the BP 1 hour later was 123/58. This morning it is 164/83. BP's were uncontrolled when he uncontrolled at presentation to [facility] Ed and while he was at [facility]. Adjustments to the antihypertensive regimen were made at [facility]. He is afebrile. Other complications at [facility] were bradycardia with HR's in the 30-40 range. Metoprolol was discontinued and he continued on Cardizem. Heart rate is ranged from 80-104. He is maintaining an appropriate oxygen saturation on room air and it has rangedfrom 92 to 100%. All lab drawn this morning was personally reviewed. Hemoglobin is 8.8, down from 11.6 on the calcium, phosphorus and magnesium are all within normal limits. LFTs are normal. TSH in January was mildly increased at 4.86 with a free T4 of 0.63 which is mildly decreased. Repeat TSH at [facility] was normal at 2.32. T3 and T4 were both mildly decreased and this is consistent with euthyroid sick syndrome. No changes in the levothyroxine dose are indicated. Night nursing reports that he slept well last night. I ordered Tramadol for himPRN but, he pain has been controlled with Acetaminophen 1,000 mg Q 8H ELMO. Restrictions: no lifting > 10-15 lbs and no strenuous exercise for 4 weeks. He was started back on Eliquis prior to transfer to [place]. [facility] Medical History (Updated 04/09/23 @ 11:[address] Brandee Monterroso DO) Atherosclerotic heart disease of [place] coronary artery without angina pectoris Back problem Brainstem tumor Fall Hearing problem History of hypothyroidism Hyperlipemia Hypertension Longstanding persistent atrial fibrillation Non-ST elevated myocardial infarction Trigeminal nerve disease Unstable angina Home Medications carbamazepine 200 mg tablet (Tegretol) 200 mg PO TID seziures #270 tabs 05/10/23[Rx Last Taken Unknown] diltiazem HCl 240 mg capsule,extended release 24 hr 240 mg PO DAILY blood pressure #90 caps 12/16/22 [Rx Last Taken 04/08/23] apixaban 5 mg tablet (Eliquis) 5 mg PO BID AFIB #180 tabs 01/29/23 [Rx Last Taken 04/08/23] acetaminophen 500 mg tablet 1,000 mg PO Q8 pain 04/08/23 [History Last Taken Unknown] albuterol sulfate 90 mcg/actuation aerosol inhaler (Ventolin HFA) 1 puff inhalation Q4H PRN PRN Wheezing 04/08/23 [History Last Taken Unknown] aspirin 81 mg chewable tablet 1 tab PO DAILY heart health 04/08/23 [History Last Taken 04/08/23] atorvastatin 40 mg tablet (Lipitor) 40 mg PO QHS cholesterol 04/08/23 [History Last Taken 04/07/23] ergocalciferol (vitamin D2) 1,250 mcg (50,000 unit) capsule 1,250 mcg PO QWEEK supplement 04/08/23 [History Last Taken 04/06/23] ipratropium 0.5 mg-albuterol 3 mg (2.5 mg base)/3 mL nebulization soln 3 ml inhalation Q6H PRN wheezing/SOB 04/08/23 [History Last Taken Unknown] levothyroxine 25 mcg tablet 25 mcg PO DAILY thyroid 04/08/23 [History Last Taken 04/08/23] lidocaine 5 % topical patch (Lidoderm) 1 patch topical DAILY pain 04/08/23 [History Last Taken Unknown] lisinopril 5 mg tablet 5 mg PO DAILY Blood Pressure 04/08/23 [History Last Taken 04/08/23] magnesium oxide 400 mg PO BID supplement 04/08/23 [History Last Taken 04/08/23] melatonin 3 mg tablet 9 mg PO QHS sleep 04/08/23 [History Last Taken 04/07/23] Allergy/AdvReac Type Severity Reaction Status Date / Time No Known Allergies Allergy Verified 04/01/23 01:18 Family History unable to obtain Surgical History (Updated 04/09/23 @ 11:[address] Brandee Monterroso, DO) History of chest tube placement History of prostate surgery Hx of skin graft Hx of tonsillectomy Status post aorto-coronary artery bypass graft Social History Smoking Status: Former smoker how long ago did patient quit smokin02/08/1969 alcohol intake: never substance use type: does not use what type of physical activity do you participate in: none ROS Constitutional Constitutional: Reports fatigue and weakness; Denies anorexia, change in weight,chills, fever(s) or night sweats Eyes Eyes: Denies blurry vision, change in vision, eye pain or loss of vision ENT HEENT: Reports abnormal hearing and hearing loss; Denies dizziness, dysphagia, headache(s), nasal congestion or sore throat Cardiovascular Cardiovascular: Reports chest pain and other Details: Chest pain is localized tothe R chest and is due to recent fall resulting in multiple R rib fractures. ; Denies dyspnea on exertion, edema, lightheadedness, orthopnea, palpitations, paroxysmal nocturnal dyspnea or syncope Respiratory/Chest Respiratory/Chest: Reports cough; Denies dyspnea, shortness of breath at rest, shortness of breath with exertion or wheezing Gastrointestinal Gastrointestinal: Denies abdominal pain, constipation, diarrhea, dyspepsia, hematemesis, hematochezia, nausea or vomiting Genitourinary Genitourinary: Denies dysuria, hematuria, nocturia, urinary frequency, urinary hesitancy, urinary incontinence or urinary urgency Musculoskeletal Musculoskeletal: Denies back pain, joint pain, joint swelling or neck pain Integumentary Integumentary: Reports dry skin, wounds and other Details: There is a wound to the right chest secondary to recent chest tube placement for right hemothorax ; Denies jaundice or rash Neurologic Neurologic: Reports other; Denies confusion, disequilibrium, dizziness, focal weakness, headache(s), paresthesias, seizures or tremor(s) Psychiatric Psychiatric: Reports other Details: He had delirium at the previous hospital......including the night prior to transfer ; Denies anxiety, depression, homicidal ideation or suicidal ideation Endocrine Endocrinology: Reports fatigue; Denies change in body appearance, cold intolerance, polydipsia or polyuria Hematologic/Lymphatic Hematologic/Lymphatic: Reports easy bleeding and easy bruising; Denies lymphadenopathy Allergic/Immunologic Allergic/Immunologic: Denies rhinitis, eczemia or asthma Vital Signs Vital Signs Vital Signs: 04/08/23 18:00 04/08/23 19:52 04/08/23 22:00 Temperature 98.5 F 98.9 F Temperature Source Temporal Temporal Pulse Rate 104 H 83 94 Respiratory Rate 18 16 16 Respiratory Effort Normal Non-Labored Respiratory Depth Normal Respiratory Pattern Normal Blood Pressure 194/95 H 123/58 H Blood Pressure Mean 128 79 Blood Pressure Source Monitor Monitor Blood Pressure Position Semi-Fowlers Semi-Fowlers Blood Pressure Location Right Arm Left Arm Pulse Ox 96 100 92 Oxygen Delivery Method Room Air Room Air Room Air 04/09/23 07:27 04/09/23 08:26 Temperature 98 F Temperature Source Temporal Pulse Rate 80 Respiratory Rate 16 Respiratory Effort Respiratory Depth Respiratory Pattern Blood Pressure 164/83 H Blood Pressure Mean 110 Blood Pressure Source Monitor Blood Pressure Position Semi-Fowlers Blood Pressure Location Left Arm Pulse Ox 100 92 Oxygen Delivery Method Room Air Room Air Weight Weight: 182 lb 8.684 oz Body Mass Index (BMI) 26.2 Physical Exam Const alert, oriented x3, no apparent distress, average body habitus and healthy appearing General Appearance: cooperative, well kempt and well developed HEENT HEENT Narrative: some hearing difficulty.....he has hearing aids but, family has no brought them in yet. Mucous membranes are moist. Head and Scalp: normocephalic and atraumatic Mouth: No mouth trauma and No thrush Eyes PERRL, EOMs intact bilaterally, conjunctivae normal and no scleral icterus Eyes Narrative: No discharge from the eye and no mattering of the eyelashes. Neck supple Chest Chest Narrative: Pain with palpation of the right chest around the site of previous chest tube. No erythema around the dressing and only a small spot of dried serosanguineous drainage on the dressing. He is splinting the R chest when taking deep breaths due to pain. He tells me that the pain in the R chest is gradually decreasing. Resp Resp Narrative: Very diminished on the R side , better air exchange on the left. No wheezes orcrackles. Not tachypneic. Resp is not labored. No conversational dyspnea. Effort and Inspection: able to speak in complete sentences Cardio Cardio Narrative: irreg, irreg with controlled VR. No MM and no gallop. Jugular Venous Distention: Negative for JVD GI normal to inspection, nondistended, normoactive bowel sounds and soft to palpation GI Narrative: No guarding with palpation, no HS and no masses. Back/Spine no CVA tenderness and normal to inspection Extremity no calf tenderness Extremity Narrative: Trace edema of the Left ankle only. V graft for CABG was likely taken from the left leg. He tells me that this is normal for him. No clubbing and no cyanosis. Peripheral Pulses: Yes pulses 2+ throughout Skin Skin Narrative: He has a bandage over the chest tube site in the right lower chest and the bandage has a very small amount of dried serosanguineous discharge. There is noerythema and no significant swelling around the site. He has some tenderness topalpation with the area immediately around the chest tube site. General Skin Exam: dry skin; Negative for jaundice Neuro oriented x3, CN's II-XII intact bilaterally, moves all extremities, no focal motor deficits and no sensory deficits noted Psych mental status grossly normal and cooperative; Negative for denies hallucinations, denies homicidal ideation or denies suicidal ideation Psych Narrative: He is very pleasant and talkative. He is appropriate and calm. He is able to stay on topic when I am speaking with him. Appearance: grossly normal, appropriate and well kempt Attitude: calm Activity / Motor Behavior: appropriate eye contact Speech: normal speech Mood & Affect: euthymic mood Results Lab / Micro Data 04/09/23 05:14 04/09/23 05:14 Labs: Laboratory Results - last 24 hr 04/09/23 04:40: Urine Color Yellow, Urine Clarity Clear, Urine pH 7.0, Ur Specific [place] 1.010, Urine Protein 15 H, Urine Glucose (UA) Normal, Urine Ketones Negative, Urine Occult Blood 50 H, Urine Nitrite Negative, Urine Bilirubin Negative, Urine Urobilinogen 1 H, Ur Leukocyte Esterase 500 H, Urine RBC 5-10 SEEN, Urine WBC >100 SEEN, Ur Squamous Epith Cells 0 SEEN, Urine Bacteria 4+, Urine Mucus 0 SEEN 04/09/23 05:14: WBC 7.5, RBC 3.03 L, Hgb 8.8 L, Hct 28.0 L, MCV 92.4, MCH 29.0, MCHC 31.4 L, RDW Std Deviation 47.8 H, RDW Coeff of Mad[place] 14.0, Plt Count 235, MPV9.2, Immature Gran % (Auto) 0.500, Neut % (Auto) 59.7, Lymph % (Auto) 19.4, Pettis% (Auto) 14.3 H, Eos % (Auto) 5.4 H, Baso % (Auto) 0.7, Absolute Neuts (auto) 4.5, Absolute Lymphs (auto) 1.45, Nucleated RBC % 0, Sodium 136, Potassium 4.0, Chloride 104, Carbon Dioxide 29.0, Anion Gap 3 L, BUN 21 H, Creatinine 0.73, Estim Creat Clear Calc 73.51, Est GFR (MDRD) Af Amer 132, Est GFR (MDRD) Non-Af 109, BUN/Creatinine Ratio 28.7 H, Glucose 103, Calcium 9.5, Phosphorus 3.3, Magnesium 2.2, Total Bilirubin 0.50, AST 27, ALT 21, Alkaline Phosphatase 85, TotalProtein 6.1 L, Albumin 2.5 L, Globulin 3.6, Albumin/Globulin Ratio 0.7 L Assessment & Plan Assessment/Plan (1) Physical debility: (2) Fall: QUALIFIERS: Encounter type: subsequent encounter Qualified Code(s): W19.XXXD - Unspecified fall, subsequent encounter (3) Multiple fractures of ribs of right side: (4) Hemothorax on right: (5) History of chest tube placement: (6) Acute on chronic anemia: (7) Uncontrolled hypertension: (8) Urine retention: (9) Euthyroid sick syndrome: PLAN: Normal TSH with low T3 and T4. (10) Longstanding persistent atrial fibrillation: PLAN: Rate controlled. (11) Current use of assisted anticoagulation: PLAN: Eliquis PLAN: Plan PLAN PT for gait stability OT for ADL's ST for evaluation - he told me today he was coughing with eating toast and it was too hard. 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 Analgesics as needed Bowel protocol Fall precautions Assess for Anxiety/Depression GI prophylaxis -not currently on a PPI or an H2 jerad. He denies nausea/vomiting/abdominal pain/heartburn and has a good appetite. Will continueto monitor for any signs of epigastric pain/heartburn. DVT prophylaxis- He is on Eliquis chronically for AF Follow up with [facility], Dr. Shira Brady and the trauma surgeon at [facility] following DC from [facility] AM lab including CMP, CBC, Mag and Phos -personally reviewed PA and lateral chest x-ray today for diminished breath sounds in the right base Check a Hemoccult stool Cancel/reschedule appts for follow up with surgery until he is discharged from rehab. He normally uses a WW at home for ambulation and if it is a longer distance he has someone with him. He tells me that he takes care of the horses.....wondering what he was doing using a wheelbarrow? Will discuss safetywith his family. Wait to see the other postvoid residuals prior to adding Flomax. Continue Seroquel 12.5 mg nightly for a couple days and if he continues to sleepwell we will try discontinuing early next week. Continue tramadol for breakthrough pain Obtain records from Dr. Brady Decrease melatonin to 3 mg p.o. nightly. Continue clonidine 0.1 mg every 8 hours as needed uncontrolled blood pressure Vital signs every 4 hours while awake so that we can adjust antihypertensives toget the blood pressure under control. 75 minutes spent reviewing past diagnostic tests, lab results, vital sign trends, medical history, medications, all additional paperwork sent by [facility], and ordering medications, examining the the patient and completing documentation. Charges/Coding Visit Charges Inpatient E&M: 94282 Init Hosp L2 04/09/23 1134 <Electronically signed by Brandee Monterroso DO> Cosigner Signature (if applicable): CC: Dr. Shira Brady MD; Dr. Brandee Monterroso DO~ Signed ADDENDUM by Dr. Brandee Monterroso DO on 04/09/23 at 1145 Addendum UA showed greater than 100 WBCs per high-power field with 4+ bacteria. Will start Augmentin 500 mg x 1 and then 250 mg p.o. every 8 hours. Urine culture ordered. Allergies were reviewed and he has no known allergies. 04/09/23 1145<Electronically signed by Brandee Monterroso DO> Cosigner Signature (if applicable): cc: Dr. Shira Brady MD; Dr. Brandee Monterroso DO ~* Signed [facility] Work Phone: [phone]) 246-689002-29-2024 NoteHNO ID: [id number] Author: KANDIS ISLAS RN Service: Care Management Author Type: Registered Nurse Type: Care Mgt Progress Note Filed: 04/08/2023 13:17 Note Text: CARE MANAGEMENT DISCHARGE NOTE SERVICE DATE: April 08, 2023 SERVICE TIME: 1:14 PM Admission Date: 04/01/2023 LOS: 7 days Discharge Arrangement Discharge Arrangement: Acute Care [facility] Assessment Caregiver is ready, willing and able to meet the patient's needs as recommended by the inter-professional team: Yes Name of Caregiver: [facility] Transportation Arrangements Transportation Arrangements: Ambulance Transportation Agency and Phone #:: [facility] ( [facility] ) [phone] / [phone] Date of Trip: 04/08/23 Time of Trip: 1500 Type of Service: BLS Non-emergency Is Patient Medicaid Pending?: No Was transportation financial coverage discussed with family?: Patient;Spouse Marketing Producer Location: [facility] Destination: [facility] Financial Care Management Responsibility: None Handoff Communication: Handoff to: Other Caregiver Other Caregiver [facility]Phone: [facility] Bedside RN Spoke with patient and patient's spouse Zabrina. Discharge today. Discharge orders complete. [facility] is able to accept patient. Medicare. No insurance authorization needed. Transportation set for 1500. [facility] and bedside RN notified. SIGNATURE: Kandis Islas RN PATIENT NAME: Olga Lindsey DATE: April 08, 2023 TIME: 1:14 PM CONTACT #: [id number] NoteHNO ID: [id number] Author: KANDIS ISLAS RN Service: Care Management Author Type: Registered Nurse Type: Care Mgt Progress Note Filed: 04/08/2023 11:04 Note Text: CARE MANAGEMENT PROGRESS NOTE SERVICE DATE: 04/08/2023 SERVICE TIME: 11:04 AM LOS: 7 days IMM Follow Up Copy Given: Yes Copy given to:: Patient Cook Supervisor Cook Supervisor Name/Relationship: Zabrina Lindsey/ Spouse Method: By Phone (Verbal confirmation obtained) SIGNATURE: Kandis Islas RN PATIENT NAME: Olga Lindsey DATE: April 08, 2023 TIME: 11:04 AM PAGER/CONTACT #: [phone] [facility]02-29-2024 Note HNO ID: [id number] Author: DANIELLE VU APRN.CNP Service: General Surgery Author Type: Nurse Practitioner Type: Progress Notes Filed: 04/08/2023 08:07 Note Text: Trauma Surgery Progress Note SERVICE DATE: 04/06/2023 Trauma Service Pager: For questions or concerns Mon-Fri 6a-5p please page [phone]. After 5pm and on Weekends and Holidays, please page [phone] if in ICU or [phone] if on RNF. SUBJECTIVE: No acute overnight events. Patient is alert and oriented x 3, FC, CARMONA. He reports mild pain to right chest wall, however his pain is improved following chest tube removal. Patient's respiratory status is stable on RA. Patient denies chest pain, shortness of breath, abdominal pain, nausea, vomiting. OBJECTIVE: Vitals: Temp (24hrs), Av.8 ?C (98.3 ?F), Min:36.4 ?C (97.5 ?F), Max:37.2 ?C (99 ?F) BP 173/95 Pulse 79 Temp 37.2 ?C (99 ?F) (Oral) Resp 18 Ht 177.8 cm (5' 10) Wt 89.8 kg (197 lb 15.6 oz) SpO2 95% BMI 28.41 kg/m? O2 Therapy: Room Air IANDO: Date 04/07/23 07 - 04/08/23 0659 04/08/23 07 - 04/09/23 0659 Shift 2139-7636 7424-7500 0449-7467 24 Hour Total 3129-9348 5869-1016 2740-2797 24 Hour Total INTAKE Shift Total OUTPUT Urine 700 999 052 0241 Void (ml) 700 604 577 6144 # of BMs Number of BMs 1 x 1 x Shift Total 700 374 414 1797 Weight (kg) 89.8 89.8 89.8 89.8 89.8 89.8 89.8 89.8 MEDICATIONS Current Facility-Administered Medications Medication Dose Route Frequency magnesium oxide 400 mg tab(s) (MAG-OX) 400 mg ORAL BID lidocaine 4 % 1 Patch (SALONPAS) 1 Patch TRANSDERMAL DAILY And lidocaine patch - REMOVE OTHER AT BEDTIME And lidocaine - VERIFY PATCH OTHER q 8 H oxyCODONE IR 2.5-5 mg tab(s) (ROXICODONE) 2.5-5 mg ORAL/FEEDING TUBE q 6 H PRN ergocalciferol (vitamin D2) 50,000 Units cap(s) (DRISDOL) 50,000 Units ORAL 1/WK melatonin 9 mg tab(s) 9 mg ORAL DAILY (8 PM) aspirin 81 mg chewable tab(s) 81 mg ORAL DAILY dilTIAZem CD 240 mg cap(s) (CARDIZEM CD, CARTIA XT) 240 mg ORAL DAILY lisinopril 5 mg tab(s) 5 mg ORAL DAILY apixaban 5 mg tab(s) (ELIQUIS) 5 mg ORAL q 12 HR senna-docusate 8.6-50 mg 1 tablet (SENNA-S) 1 tablet ORAL BID carBAMazepine 200 mg tab(s) (TEGretol) 200 mg ORAL TID atorvastatin 40 mg tab(s) (LIPITOR) 40 mg ORAL AT BEDTIME albuterol HFA 90 mcg/actuation 1 Puff (PROVENTIL HFA, VENTOLIN HFA) 1 Puff INHALATION q 4 H PRN levothyroxine 25 mcg tab(s) (SYNTHROID) 25 mcg ORAL BEFORE BREAKFAST DAILY NaCl 0.9% iv flush bag 20 mL INTRAVENOUS PRN acetaminophen 975 mg tab(s) (TYLENOL) 975 mg ORAL/FEEDING TUBE QID ipratropium-albuterol 3 mL nebulizer solution (DUONEB) 3 mL INHALATION q 6 H PRN ondansetron 4 mg tab(s) (ZOFRAN) 4 mg ORAL q 6 H PRN Or ondansetron (PF) 4 mg injection (ZOFRAN) 4 mg INTRAVENOUS q 6 H PRN Labs: Recent Labs 04/08/23 0518 04/07/23 0524 NA 135* 138 K 4.4 3.4* CHLOR 101 108* CO2 28 23 BUN 18 15 CREAT 0.74 0.59* GLUC 99 86 ANION 6* 7* CA 9.5 7.5* MG -- 1.5* WBC 7.77 7.51 HB 8.8* 9.4* HCT 27.4* 28.9* PLT 204 183 PHYSICAL EXAM: Genl: Appears age appropriate. No acute distress. Resting comfortably. Head/Face: Normocephalic. Atraumatic. Eyes: EOMI. Sclera not icteric, not injected Resp: No audible wheezes. Breathing is non-labored on RA @97%. Right chest wall + TTP. CT insertion site dressing is clean, dry, intact. CVS: HR as above; 2+ pulses at RA, DP bilat. GI: Abdomen is soft, non-tender, not distended. No peritonitis. MSK: Extremities without clubbing, cyanosis, edema. Normal ROM x 4. Skin: Warm and dry. Not jaundiced. Neuro: AANDOx3. Strength and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 (04/04/23 0027) Scheduled medications:sodium phosphate/glycerophosphate, 45 mmol, ONCE potassium chloride, 20 mEq, q 2 H apixaban, 5 mg, q 12 HR clopidogrel, 75 mg, DAILY senna-docusate, 1 tablet, BID carBAMazepine, 200 mg, TID atorvastatin, 40 mg, AT BEDTIME levothyroxine, 25 mcg, BEFORE BREAKFAST DAILY acetaminophen, 975 mg, QID lidocaine, 1 Patch, DAILY And lidocaine patch - REMOVE, , AT BEDTIME And lidocaine - VERIFY PATCH, , q 8 H pregabalin, 75 mg, BID dilTIAZem CD, 120 mg, DAILY PRN:metoprolol, 5 mg, q 6 H PRN albuterol HFA, 1 Puff, q 4 H PRN NaCl 0.9%, 20 mL, PRN oxyCODONE IR, 5-10 mg, q 6 H PRN ipratropium-albuterol, 3 mL, q 6 H PRN ondansetron, 4 mg, q 6 H PRN Or ondansetron (PF), 4 mg, q 6 H PRN fentaNYL, 50 mcg, q 1 H PRN LABORATORY: Cardiac:No results for input(s): CKTEST, CKMB, CKMBP, TROPONIN, BNP in the last 168 hours. BLOOD GAS: CBC: Recent Labs 04/04/23 0357 04/03/23 0410 04/02/23 1845 04/02/23 0343 04/01/23 1400 04/01/23 0842 WBC 6.62 8.25 9.29 11.01* 10.87 8.94 HB 9.0* 9.6* 9.3* 9.4* 11.4* 11.8* HCT 27.5* 29.7* 27.8* 29.1* 35.1* 36.7* PLT 155 150 144* 159 151 168 MCV 92.6 92.0 90.6 92.1 92.9 92.7 RDWCV 14.6 14.8 14.7 14.7 14.7 14.7 NEUTP -- -- 60.0 -- -- -- ABSNEUT -- -- 5.57 -- -- -- LYMPHP -- -- 24.5 -- -- -- MONOP -- -- 13.8 -- -- -- EODINP -- -- 1.2 -- -- -- COAG: No results for input(s): APTT, INR in the last 168 hours. CMP: Recent Labs 04/04/23 0357 04/03/23 0410 04/02/23 1157 04/02/23 0343 04/01/23 0842 GLUC 89 93 -- 121* 137* NA 138 139 135* 137 139 K 3.8 3.8 -- 4.0 4.0 CHLOR 105 102 -- 100 101 CO2 26 27 -- 25 26 ANION 7* 10 -- 12 12 BUN 18 31* -- 30* 18 CREAT 0.66* 1.01 1.42* 1.10 0.66* MG 2.1 2.6* -- 1.9 2.1 URINALYSIS: Recent Labs 04/02/23 1845 04/02/23 1626 PH -- 7.42 SPGR 1.020 -- UGLUC Negative -- UBILI Negative -- UKET Negative -- UHB Trace -- UPROT 1+* -- UWBC >25 /HPF* -- BLOOD GAS: Recent Labs 04/02/23 1626 PH 7.42 PCO2 41 PO2 74* BE 2 HCO3 26 O2HB 93* COHB 1.9 MHGB 0.1 PHTC 7.43 PCO2T 40 PO2T 72* Microbiology: Positive Micro-30 Days No results found for the last 720 (more content not included)...[facility]02-24-2024 NoteHNO ID: [id number] Author: PATRIZIA GARZA MD Service: Cardiovascular Medicine Author Type: Physician Type: Progress Notes Filed: 04/03/2023 13:55 Note Text: CVICU PROGRESS NOTE PATIENT NAME: Olga Lindsey ADMITTED FOR: Afib with slow response LOS: 2 Subjective HPI Mr. Olga Lindsey is a 83 year old male with PMH of -Trauma - CAD s/p CABG x 3 (RICHMOND-LAD, SVG-OG, SVG-PDA 04/20/2022) with postoperative course complicated by atrial fibrillation on POD#1 on Plavix - Atrial fibrillation on Eliquis, diltiazem 240 mg, metoprolol tartrate 50 mg BID - HLD on atorvastatin 40 mg - HTN on lisinopril 20 mg - Meningioma - Hypothyroidism - Trigeminal neuralgia on carbamazepine Patient presented to [facility] on 04/01/2023 as a trauma transfer after he fell while handing his wheelbarrow. Trauma workup was revealing for right lateral ribs 7-9 fracture and hemothorax. Chest tube was placed and patient was moved to SICU for further evaluation and management. While in the SICU, patient was noted to have developed bradycardia with rates in the 30-40s. EKG revealed afib with slow ventricular response with rates of 55. Patient intermittently with episodes of marked bradycardia with rates in the high 30-40s. He does endorse chronic fatigue that has been ongoing since his CABG in April 2022. He denies chest palpitations. He does endorse chest right sided chest wall pain. INTERVAL EVENTS Patient reports pain in his chest and abdomen where the tube is. He is Aox3 but had to redirect him to the date. He answers questions appropriately but talks in a faint voice. Objective OBJECTIVE Body mass index is 26.51 kg/m?., Hemoglobin A1C (%) Date Value 04/17/2022 5.8 Intake/Output Summary (Last 24 hours) at 04/03/2023 0729 Last data filed at 04/03/2023 0631 Gross per 24 hour Intake 1807 ml Output 2110 ml Net -303 ml BP 137/77 Pulse 85 Temp (Src) 97.3 (Oral) Resp 15 Ht 5' 10 (1.78m) Wt 184 lb 11.9 oz (83.8kg) SpO2 100% BMI 26.51 kg/(m2). O2 Therapy: Nasal Cannula, Liters: 2 General appearance: Normal, alert, appears to be in no acute distress, cooperative Head: Normocephalic, atraumatic HEENT: Extraocular movements intact; mucous membranes moist Lungs: CTAB anteriorly Heart: Irregularly irregular; normal S1/S2; no murmurs/gallops/rubs Extremities: No significant lower extremity edema bilaterally Neurologic: Grossly nonfocal Psych: Normal mood/affect CURRENT MEDICATIONS: IV infusions:lactated ringers, Last Rate: 125 mL/hr (04/02/232014) Scheduled medications:senna-docusate, 1 tablet, BID carBAMazepine, 200 mg, TID atorvastatin, 40 mg, AT BEDTIME levothyroxine, 25 mcg, BEFORE BREAKFAST DAILY acetaminophen, 975 mg, QID lidocaine, 1 Patch, DAILY And lidocaine patch - REMOVE, , AT BEDTIME And lidocaine - VERIFY PATCH, , q 8 H pregabalin, 75 mg, BID dilTIAZem CD, 120 mg, DAILY PRN:albuterol HFA, 1 Puff, q 4 H PRN NaCl 0.9%, 20 mL, PRN oxyCODONE IR, 5-10 mg, q 6 H PRN ipratropium-albuterol, 3 mL, q 6 H PRN ondansetron, 4 mg, q 6 H PRN Or ondansetron (PF), 4 mg, q 6 H PRN fentaNYL, 50 mcg, q 1 H PRN LABORATORY: Cardiac:No results for input(s): CKTEST, CKMB, CKMBP, TROPONIN, BNP in the last 168 hours. BLOOD GAS: CBC: Recent Labs 04/03/23 0410 04/02/23 1845 04/02/23 0343 04/01/23 1400 04/01/23 0842 WBC 8.25 9.29 11.01* 10.87 8.94 HB 9.6* 9.3* 9.4* 11.4* 11.8* HCT 29.7* 27.8* 29.1* 35.1* 36.7* PLT 150 144* 159 151 168 MCV 92.0 90.6 92.1 92.9 92.7 RDWCV 14.8 14.7 14.7 14.7 14.7 NEUTP -- 60.0 -- -- -- ABSNEUT -- 5.57 -- -- -- LYMPHP -- 24.5 -- -- -- MONOP -- 13.8 -- -- -- EODINP -- 1.2 -- -- -- COAG: No results for input(s): APTT, INR in the last 168 hours. CMP: Recent Labs 04/03/23 0410 04/02/23 1157 04/02/23 0343 04/01/23 0842 GLUC 93 -- 121* 137* NA 139 135* 137 139 K 3.8 -- 4.0 4.0 CHLOR 102 -- 100 101 CO2 27 -- 25 26 ANION 10 -- 12 12 BUN 31* -- 30* 18 CREAT 1.01 1.42* 1.10 0.66* MG 2.6* -- 1.9 2.1 URINALYSIS: Recent Labs 04/02/23 1845 04/02/23 1626 PH -- 7.42 SPGR 1.020 -- UGLUC Negative -- UBILI Negative -- UKET Negative -- UHB Trace -- UPROT 1+* -- UWBC >25 /HPF* -- BLOOD GAS: Recent Labs 04/02/23 1626 PH 7.42 PCO2 41 PO2 74* BE 2 HCO3 26 O2HB 93* COHB 1.9 MHGB 0.1 PHTC 7.43 PCO2T 40 PO2T 72* Microbiology: Positive Micro-30 Days No results found for the last 720 hours. IMAGING: CT Brain Report CT BRAIN WO IVCON Exam End: 04/02/2023 10:12 AM (Final result) Narrative: * * *Final Report* * * DATE OF EXAM: Apr 02 2023 10:12AM [facility] 0504 - CT BRAIN WO IVCON / PROCEDURE REASON: Head trauma, moderate-severe * * * * Physician Interpretation * * * * EXAMINATION: CT BRAIN WO IVCON CLINICAL HISTORY: Recent trauma, anticoagulated TECHNIQUE: Serial axial images without IV contrast were obtained (more content not included)...[facility]02-23-2024 NoteHNO ID: [id number] Author: CONSTANTINE BAEZA RN Service: Care Management Author Type: Registered Nurse Type: Care Mgt Initial Assessment Filed: 04/02/2023 13:53 Note Text: CARE MANAGEMENT: ASSESSMENT AND DISCHARGE PLAN SERVICE DATE: April 02, 2023 SERVICE TIME: 1:49 PM PCP: Shira Brady MD Primary Contact: Extended Emergency Contact Information Primary Emergency Contact: ZABRINA LINDSEY Address: [address] [place] [id number] Mobile Relation: Spouse Secondary Emergency Contact: Yuridia Talley Mobile Relation: Daughter Admission Status: Inpatient Insurance Provider: MEDICARE A AND B Discharge Planning requested by: Per Department Practice Potential Transition Plans Home Advance Directives Current Advance Directive: None Current Living Arrangements and Support Lives with: Spouse/significant other Type of Residence: Private Residence (House) Support: Family members How do you manage to accomplish the following: Independent: Ambulation;Bathe/Shower;Dress;Meals/Meal Prep;Going to the bathroom;Medication Management Current Services/Equipment Current Post-Acute Service(s): None Discharge Planning Patient Goal(s): Better mobility, Be able to go home [place] Choice Explained: [place] of [place] Given: No Reason Not Given: Unable to complete with this assessment - revisit Are you interested in bedside delivery of your medications? No Discharge Planning Participant(s): Spouse/significant other Patient/Family Comments: Caregiver Assessment: Caregiver is ready, willing and able to meet the patient's needs as recommended by the inter-professional team: Yes Transport at Discharge: Transportation Arrangements: To Be Determined Needs Prior to Discharge: Needs Prior to Discharge: OT/PT Evaluation Post-Acute Discharge Plan: Pt lives with spouse Kimmie. Pt I for ADL's. No DME. Pt does have hearing issues and is a little shaky Discussed need for chest tube removal prior to DC- goal for DC home. Discussed possible PT/OT evals depending on LOS. SIGNATURE: Constantine Baeza RN PATIENT NAME: Olga Lindsey DATE: April 02, 2023 TIME: 1:48 PM CONTACT #: [phone] Note HNO ID: [id number] Author: SABIHA BOSTON LSW Service: Care Management Author Type: Food Processing Plant Manager Type: Care Mgt Progress Note Filed: 04/02/2023 10:06 Note Text: CARE MANAGEMENT PROGRESS NOTE SERVICE DATE: 04/02/2023 SERVICE TIME: 10:05 AM LOS: 1 day Trauma Assessment- Chart Reviewed. Tox screen not completed. No concerns for substance abuse. Trauma Assessment not indicated at this time. SIGNATURE: BALDEMAR Mccord PATIENT NAME: Olga Lindsey DATE: April 02, 2023 TIME: 10:04 AM PAGER/CONTACT #: [phone]23 NoteHNO ID: [id number] Author: LINDA KINSEY [facility] Service: Pharmacy Author Type: Pharmacist Type: Plan of Care Filed: 04/05/2023 15:31 Note Text: PHARMACY MEDICATION REVIEW Patient Name: Olga Lindsey : 1940 The following medications were updated within the POOLING OPERATOR medication list: Medications ADDED to POOLING OPERATOR medication list acetaminophen (TYLENOL) 500 mg tablet Family Member Yes Yes OTC PRN up to TID for pain per daughter Medications CHANGED on POOLING OPERATOR medication list carBAMazepine (TEGRETOL) 200 mg tablet OTHER No Yes Sig: Take 1 tablet by mouth three times daily. Daughter states pt. takes at 5am, 1130am and 545pm. metoprolol tartrate, short acting, (LOPRESSOR) 50 mg tablet OTHER No Yes Sig: Take 1 tablet by mouth every 8 hours. Hold for heart rate <60, SBP <100 Patient taking differently: Take 50 mg by mouth two times a day. Hold for heart rate <60, SBP <100 Daughter states pt. is take 50 mg TID. Medications REMOVED from POOLING OPERATOR medication list tamsulosin (FLOMAX) 0.4 mg Not on Formulary lisinopril (ZESTRIL) 10 mg tablet Auto furosemide (LASIX) 20 mg tablet Discontinued by another Health Care Provider Not taking medications per daughter. (Lisinopril was increased to 40mg) Additional comments: I was able to talk with pt. and later daughter Yuridia about home medications. Yuridia ([phone]) is a good medication historian and was able to verify the 10 medications recorded below on the POOLING OPERATOR list. I have added 1 medication to the POOLING OPERATOR list and removed 3 medications. I have noted a change to 3 medications per interview with Yuridia. Pt. was a transfer from [facility]. Required follow up actions for nursing: Medication history completed by Historian. No nursing follow up required. The below information represents the best possible medication history: Yes Medication history completed by: Roller Engraver: Jose Ramon Lyman (Medicare Sales Executive) Source of history: Pharmacy records: [facility] and family Medication nonadherence identified: Unable to assess Reconciliation completed: Yes Completed by: Linda Kinsey PharmD, [facility] Nursing Unit Based Pharmacist Ext: [phone] All POOLING OPERATOR medications addressed by LIP Patient interested in Bedside Delivery Services or using CC OP Pharmacy at discharge? Unable to assess Preferred outpatient pharmacy: [id number] [place] [address] - [address] [facility] [phone] [id number] [facility] Allergies: No Known Allergies Prior to Admission Medications Prescriptions Last Dose Informant Patient Reported? Taking? ELIQUIS 5 mg tab(s) OTHER Yes Yes Sig: Take 1 tablet by mouth every 12 hours. acetaminophen (TYLENOL) 500 mg tablet Family Member Yes Yes Sig: Take 500 mg by mouth as needed for pain. albuterol HFA (PROVENTIL HFA, VENTOLIN HFA) 90 mcg/actuation inhaler Family Member Yes Yes Sig: Inhale 1 Puff as instructed every 4 hours as needed for wheezing/shortness of breath. atorvastatin (LIPITOR) 40 mg tablet OTHER No Yes Sig: Take 1 tablet by mouth daily at bedtime. carBAMazepine (TEGRETOL) 200 mg tablet OTHER No Yes Sig: Take 1 tablet by mouth three times daily. clopidogrel (PLAVIX) 75 mg tablet OTHER No Yes Sig: Take 1 tablet by mouth once daily. dilTIAZem CD (CARDIZEM CD, CARTIA XT) 240 mg 24 hr capsule OTHER No Yes Sig: Take 1 capsule by mouth once daily. Hold for heart rate <60, SBP <100 levothyroxine 50 mcg cap OTHER Yes Yes Sig: Take 50 mcg by mouth daily before breakfast. lisinopril (ZESTRIL) 40 mg tablet OTHER Yes Yes Sig: Take 1 tablet by mouth every afternoon. metoprolol tartrate, short acting, (LOPRESSOR) 50 mg tablet OTHER No Yes Sig: Take 1 tablet by mouth every 8 hours. Hold for heart rate <60, SBP <100 Patient taking differently: Take 50 mg by mouth two times a day. Hold for heart rate <60, SBP <100 Facility-Administered Medications: None Jose Ramon Lyman (Medicare Sales Executive) phone [phone] 04/01/2023 I have reviewed and agree with the medication history note completed by the medication historian as documented above. All medications reviewed and reconciled appropriately. Linda Johnson, SusanaD, [facility] Based Pharmacist Ext: [phone] [facility] NoteHNO ID: [id number] Author: JOSE RAMON LANZA MD Service: General Surgery Author Type: Resident Type: Procedures Filed: 04/01/2023 18:08 Note Text: Attestation signed by Jose Ramon Lanza MD at 04/01/2023 6:08 PM I agree with, but was not present for the procedure. Jose Ramon Lanza MD BEDSIDE PROCEDURE NOTE CHEST TUBE Date/Start Time: 04/01/2023 11:37 AM Performed by: Zuleika Keyes DO Authorized by: Jose Ramon Lanza MD Where was Patient When this Procedure was Performed ED This procedure has been performed by a resident/fellow without an attending's supervision Informed Consent Consent Obtained: Written [place] Protocol A moment to CARE was completed. SIGN IN Personnel directly involved with the procedure wore the appropriate PPE. TIME OUT Intended patient and procedure match the source document(s). Pre-Procedure Details: The area was prepped with alcohol and allowed to dry. A sterile partial body drape was applied following the usual aseptic technique. Medications: Analgesia (see MAR): Fentanyl Local Anesthesia (see MAR): Lidocaine 1% with 1 to 100,000 epinephrine Procedure Details: Indication: hemothorax Chest Tube Type: Chest Tube Location: right Intercostal Space: 5th Position: lateral Insertion site: pleural space Chest Tube Number: 1 A 28 Fr chest tube was inserted into the cavity to 15 cm depth. Using open technique, a 3 cm incision was made. The pleural cavity was entered using a daniela clamp. The appropriate location in the pleural cavity was confirmed by noting the presence of lung. Placement in the pleural space was confirmed by chest x-ray. The tube was secured with sterile sutures A Tegaderm dressing was placed around the tube. The tube was connected to suction Drainage: bloody fluid Drainage amount (mL): 800 Post-insertion x-ray findings: Reviewed tube in good position Number of attempts: 1 Successful Placement: Yes Post-Procedure Details: Estimated Blood Loss: mL (comment) (800) SIGNATURE: Zuleika Keyes DO PATIENT NAME: Olga Lindsey DATE: April 01, 2023 TIME: 11:37 [facility]05-02-2023 Miscellaneous Notes* Telephone Encounter - Ramez Calle - 06/09/2022 3:03 PM EDT Unable to reach Yuridia Talley (pt's sam) [phone] no answer voicemail not set up. Will try again Referral information. 06/23/[address] Law @ [facility] [phone] . Referred to critical access hospital care S/P 04/20/22 CABG. Records faxed on 06/09/22. Dr. Rodriguez (GI) faxed referral for right hepatic dome cystic lesion seen on 04/17/22 CT Chest. Also faxed 06/05/22 office visit, CT reports, operative report, discharge summary & demographics. Theywill contact pt with appt date. Dr. Simental [...] They will contact pt with appt date. [id number] documented in this encounterCleveland Clinic Mentor [facility]04-28-2023 NoteHNO ID: [id number] Author: Teresita Bernal APRN.FOUNTAIN WORKER Service: ? Author Type: Nurse Practitioner Type: Progress Notes Filed: 06/05/2022 5:34 PM Note Text: HPI: This is an 82 year old male with a PMHx of HTN, Trigeminal Neuralgia, resting tremor and HLD who presented as a transfer from [facility] to [facility]. He originally presented to [facility] 04/15/22 due to worsening chest pain. Initial EKG showed NSR without ST segment changes. HS Trop elevated initially at 2134 and peaked at 3350 per record review. Given HS Trop elevations, prompted patient to undergo Cardiac Cath, which showed MV CAD. Patient diagnosed with NSTEMI, started on Heparin gtt, and transferred to [facility] for CABG evaluation. Patient underwent CABG [...] home with his who also +COVID, with [facility] on 04/30/22, with order for lasix 20 mg daily and K replacement. To have BMP in 1 week. Chart reviewed. 05/03/22 patient's daughter called reporting pt with shortness of breath and was advised to go to ER. At [facility] per daughter, lasix increased to 40 [...] without new pain/injuries. Pt was discharged from [facility] 06/03/22. On encounter, pt reports doing well Fever/chills: denies Dizziness/lightheadedness/syncope: denies Chest pain/palpitations/incisional pain: denies Any drainage [...] before breakfast. carBAMazepine (TEGRETOL) (more content not included)...[facility]04-26-2023 Miscellaneous Notes* Telephone Encounter - Carol Nobles RN - 06/03/2022 12:29 PM EDT Good afternoon, Pt was discharged from home health today; goals have been met. He reported a fall that he had last week outside walking the dog-the dog wrapped the strap around him and he fell to the ground. He denies any injury, no new pain since the fall. Also; his daughter requests a referral to the [facility] for cardiology. [place] office [place] far for them and he plans to do his cardiac rehab at [facility]. Thank you for following this home health pt. documented in this encounterCleveland Clinic Mentor Hospital04-26-2023 Miscellaneous Notes* [facility] Agency DC - Carol Nobles RN - 06/03/2022 11:57 AM EDT SITUATION: Correction agency discharge visit completed today. daughter also [...] is feeling well, just still weak in legs.SN encouraged him to continue the ambulation exercises [...] for additional medical questions/concerns. documented in this encounterCleveland Clinic Mentor Hospital04-19-2023 Miscellaneous Notes* Telephone Encounter - Taty Morillo LPN - 05/27/2022 2:17 PM EDT Daughter, Zoya Burgos, , calling in. Daughter states her and 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 have been playingphone tag. Daughter states she is trying to get the remaining 5 (five) medications that are [facility] to [facility] in [place]. Taty Morillo LPN May 27, 2022 2:19 PM documented in this encounterCleveland Clinic Mentor Hospital04-18-2023 Miscellaneous Notes* SN Routine - Carol Nobles RN - 05/26/2022 3:21 PM EDT SITUATION: Correction routine visit completed today. only patient present [...] chair resting. His daughter went back to [place] this am and he has other family members checking in on him periodically by phone or in person. He feels that he is getting around and managing his own basic needs. All chest wounds are healed, L leg incition stillhas dermabond intact but no signs of drainage [...] services for safety and post CABG assessment andinstruction. . Current Discharge plan: self-care, family support and chronic care clinic RECOMMENDATION: Next visit to focus on (be specific): Agency dc documented in this encounterCleveland Clinic Mentor Hospital04-17-2023 Miscellaneous Notes* Telephone Encounter - Teresita Bernal APRN.NASH - 05/25/2022 3:07 PM EDT Returned call to patient's daughter. Left VM and asked for return call, clarifying which medications she was expecting to have sent to [place]. * Telephone Encounter - Taty Morillo LPN - 05/25/2022 9:29 AM EDT Daughter, Zoya Burgos, , calling in and left message. States she would like to speak with someone regarding patient's medications to make sure ALL are going to be sent to [place]. Daughter states that only a couple have been transferred. Taty Morillo LPN May 25, 2022 9:30 AM documented in this encounterCleveland Clinic Mentor Hospital04-13-2023 Miscellaneous Notes* PT DISCHARGE - [place], PT - 05/21/2022 10:36 AM EDT SITUATION: daughter present during today's visit. patient and caregiver reports the following sincethe last homecare visit: medications/allergies--no changes, no fall. patient reports feeling much better. BACKGROUND: Diagnoses (reason for Home Care): [facility] on 04/16/2022-04/30/2022. PrimaryDiagnoses (reason for Home Care): Encounter for surgical aftercare following surgery on the circulatory system Presence of aortocoronary bypass gr aftNon-ST elevation (NSTEMI) myocardial infarction At herosclerotic heart disease of [place] coronary artery without angina pectoris Essential (primary) hypertension COVID-19 PROCEDURE(S): 04/20/2022 Coronary Artery Bypass Graft ACTIVE PROBLEM LIST Essential Hypertension, Benign Hyperlipidemia Trigemina l Nerve Disorder TremorMeningioma (Hcc) Nstemi (Non-St Elevated Myocardial Infarction) (Hcc) [...] summary for intervention/education details. documented in this encounterCleveland Clinic Mentor Hospital04-12-2023 Miscellaneous Notes* SN Routine - Carol Nobles RN - 05/20/2022 12:06 PM EDT SITUATION: Correction routine visit completed today. daughter also present [...] CABG assessment and instruction documented in this encounterCleveland Clinic Mentor Hospital04-12-2023 Miscellaneous Notes* OT ROUTINE / CASE MGMT VISIT - ANNE Davis - 05/20/2022 10:10 AM EDT SITUATION: OT routine visit daughter present during today's visit. patient reports the following since the last homecare visit:medications/allergies--no changes, no fall. patient reports he has been doing well and is havin no issues . BACKGROUND: Diagnoses or reason for Home Care: elevation (NSTEMI) myocardial infarction Atherosclerotic heart disease of [place] coronary artery without angina pectoris Essential (primary) [...] review of ue hep documented in this encounterCleveland Clinic Mentor Hospital04-11-2023 Miscellaneous Notes* PT ROUTINE/REASSESSMENT/RECERT/CASE MGMT - Anthony Kruger PTA - 05/19/2022 4:39 PM EDT SITUATION: POOLING OPERATOR routine visit. daughter present during today's visit. patient and caregiver reports the following since the last homecare visit: medications/allergies--no changes, no fall. patient reports feeling much better. BACKGROUND: Diagnoses (reason for Home Care): [facility] on 04/16/2022-04/30/2022. Primary Diagnoses (reason for Home Care): Encounter for surgical aftercare following surgery on thecirculatory system Presence of aortocoronary bypass gr aftNon-ST elevation (NSTEMI) myocardial infarction Atherosclerotic heart disease of [place] coronary artery without angina pectoris Essential (primary) [...] summary for intervention/education details. documented in this encounterCleveland Clinic Mentor Hospital04-11-2023 Miscellaneous Notes* Telephone Encounter - Taty Morillo LPN - 05/19/2022 9:42 AM EDT This Nurse contacted [facility]. This medication is on HOLD due to too early to fill. Insurance will contact cover since it had already been filled. Will be ready May 25, 2022 This Nurse contacted daughter, Kaitlyn Burgos, [phone], and notified. Taty Morillo LPN May 19, 2022 9:44 AM Teresita Bernal APRN.NASH (4:52 PM) Can you please call pharmacy and see what the situation is? Looks like I sent this to [facility] [place] on 05/15 for 30 day supply, it says received, not sure why I need to ?resend? Thanks! Teresita * Telephone Encounter - Taty Morillo LPN - 05/18/2022 1:10 PM EDT Daughter, Kaitlyn Burgos, , calling in to speak with 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, Teresita. Requesting refill of diltiazem to be called in to [place] [facility]. States request made however [facility] states they didn't receive medication refill request. Taty Morillo LPN May 18, 2022 1:12 PM documented in this encounterCleveland Clinic Mentor Hospital04-10-2023 Miscellaneous Notes* Telephone Encounter - BALDEMAR Edwards - 05/18/2022 2:07 PM EDT 05/18/22 FOOD TRUCK CATERER received a phone call back from the pt.'s daughter Kaitlyn. She stated that she gave her sister Yuridia FOOD TRUCK CATERER'S name and phone number to call back. Kaitlyn statd she could talk with FOOD TRUCK CATERER regarding community resources. FOOD TRUCK CATERER educated the pt.'s daughter on [employer] and she stated that her sister looked into that and the pt. and his are not low income. FOOD TRUCK CATERER asked her if she wanted information on Agencies to hire an Aide/ Homemaker and she does. She stated she would like FOOD TRUCK CATERER to mail information to the pt.'s home and Email her sister Yuridia the information. FOOD TRUCK CATERER stated she can call her sisterYuridia and inform her FOOD TRUCK CATERER is Emailing her information. FOOD TRUCK CATERER mailed and Emailed a list of Agencies tohire an Aide/Homemaker, list of Home Delivered Meal Providers, information on Direction Home [facility] Agency on Aging for PASSPORT and the Aging and Disability Resource Center, Critical access hospital and [facility] information and referral, information on [facility] Transit and information on Community Action [place] for transportation to medical appointments. Thank You, documented in this encounterCleveland Clinic Mentor Hospital04-10-2023 Miscellaneous Notes* CARE COORDINATION - BALDEMAR Edwards - 05/18/2022 1:00 PM EDT 05/18/22 12:57 PM - 1:02 PM FOOD TRUCK CATERER received a phone call back from the pt.'s daughter Kaitlyn. She statedthat she gave her sister Yuridia FOOD TRUCK CATERER'S name and phone number to call back. Kaitlyn statelizabeth she could talk with FOOD TRUCK CATERER regarding community resources. FOOD TRUCK CATERER educated the pt.'s daughter on [employer] and she statedthat her sister looked into that and the pt. and his are not low income. FOOD TRUCK CATERER asked her if she wanted information on Agencies to hire an Aide/ Homemaker and she does. She stated she would like FOOD TRUCK CATERER to mail information to the pt.'s home and Email her sister Yuridia the information. Email:[email or web address]. FOOD TRUCK CATERER stated she can call her sister Yuridia and informher FOOD TRUCK CATERER is Emailing her information. 05/18/22 1:10 PM - 1:11 PM FOOD TRUCK CATERER called the pt.'s daughter Yuridia and mckaylaage came on voicemail not setup and unable to leave a message. 05/18/22 FOOD TRUCK CATERER mailed a list of Agencies to hire an Aide/Homemaker, list of Home Delivered Meal Providers, information on Direction [facility] Agency on Aging for PASSPORT and the Aging and Disability Resource Center, [employer] information and referral, information on [facility] Transit and information on Community Action [place] for transportation to medical appointments. FOOD TRUCK CATERER attached her card with information mailed. 05/18/22 1:47 PM FOOD TRUCK CATERER Emailed the pt.'s daughter Yuridia - a list of Agencies to hire an Aide/Homemaker, list of Home Delivered Meal Providers, information on Direction [facility] Agency on Aging for PASSPORT and the Aging and Disability Resource Center, [employer] information and referral, information on [facility] Transit and information on [facility] Action [place] for transportation to medical appointments. 05/18/[address] Javier Alex - FOOD TRUCK CATERER received a phone call back from the pt.'s daughter Kaitlyn. She stated that she gave her sister Yuridia FOOD TRUCK CATERER'S name and phone number to call back. Kaitlyn statelizabeth she could talk with FOOD TRUCK CATERER regarding community resources. FOOD TRUCK CATERER educated the pt.'s daughter on [employer] and she stated that her sister looked into that and the pt. and his are not low income. FOOD TRUCK CATERER asked her if she wanted information on Agencies to hire an Aide/ Homemaker and she does. She stated she would like FOOD TRUCK CATERER to mail information to the pt.'s home and Email her sister Yuridia the information.FOOD TRUCK CATERER stated she can call her sister Yuridia and inform her FOOD TRUCK CATERER is Emailing her information. FOOD TRUCK CATERER mailed and Emailed a list of Agencies to hire an Aide/Homemaker, list of Home Delivered Meal Providers, information on Direction [facility] Agency on Aging for PASSPORT and the Aging and Disability Resource Center, Critical access hospital and [facility] information and referral, information on [facility] Transit and information on Community Action [facility] for transportation to medical appointments. Thank You, documented in this encounterCleveland Clinic Mentor Hospital04-10-2023 NoteHNO ID: [id number] Author: RT Autumn(Elliott) Service: Radiology Author Type: Technologist Type: Progress [...] BY: RT Autumn(R) May 18, 2022 10:30 [facility]04-10-2023 History of Present illness Narrative* Arline Whipple RT(R) - 05/18/2022 10:10 AM EDT Radiology Service Progress Note PATIENT NAME: Olga Lindsey DATE OF SERVICE: May 18, 2022 TIME: 10:30 AM PATIENT IDENTITY VERIFICATION COMPLETED USING TWO (2) IDENTIFIERS: Name and Date of confirmedby patient verbally. FALL SCREENING: Has the patient [...] RT Autumn(R) May 18, 2022 10:30 AM documented in this encounterCleveland Clinic Mentor Hospital04-07-2023 Miscellaneous Notes* SN Routine - Carol Nobles RN - 05/15/2022 12:56 PM EDT SITUATION: Correction routine visit completed today. daughter also present [...] Pt reports that his appetite is improving andhe is taking fluids well. See intervention summary for education details. Patient demonstrated a need for further skilled SN services for chronic disease management & education, medication education, safety and post CABG assessment and instruction. . Current Discharge plan: self-care and family support RECOMMENDATION: Next visit to focus on (be specific): post CABG assessment and instruction documented in this encounterCleveland Clinic Mentor Hospital04-07-2023 Miscellaneous Notes* PT ROUTINE/REASSESSMENT/RECERT/CASE MGMT - Anthony Kruger PTA - 05/15/2022 11:11 AM EDT SITUATION: POOLING OPERATOR routine visit. daughter present during today's visit. patient reports the following since the last homecare visit:medications/allergies--no changes, no fall. patient reports: I feel pretty good Anthony. Much better. BACKGROUND: Diagnoses (reason for Home Care): [facility] on 04/16/2022-04/30/2022. Primary Diagnoses (reason for Home Care): Encounter for surgical aftercare following surgery on thecirculatory system Presence of aortocoronary bypass gr aftNon-ST elevation (NSTEMI) myocardial infarction Atherosclerotic heart disease of [place] coronary artery without angina pectoris Essential (primary) [...] summary for intervention/education details. documented in this encounterCleveland Clinic [facility] Hospital04-07-2023 Miscellaneous Notes* CARE COORDINATION - BALDEMAR Edwards - 05/15/2022 10:00 AM EDT 05/15/22 8:38 AM FOOD TRUCK CATERER received phone call from Carol Nobles RN regarding the pt.'s daughter Kaitlyn is herstaying with the pt. from [place]. She wanted information on Agencies to hire an Aide in the home. FOOD TRUCK CATERER will contact the pt.'s daughter. 05/15/22 10:01 AM - 10:03 AM FOOD TRUCK CATERER called the pt.'s daughter Kaitlyn and left her a message that Carol the Nurse called FOOD TRUCK CATERER today regarding her wanting information on Agencies to hire an Aide in the home and regarding community resources. FOOD TRUCK CATERER left her name and phone number for the pt.'s daughter to call FOOD TRUCK CATERER back. documented in this encounterCleveland Clinic Ment[facility] Hospital04-06-2023 Miscellaneous Notes* Telephone Encounter - Taty Morillo LPN - 05/14/2022 9:52 AM EDT Kaitlyn Burgos, , notified per below. Taty Morillo LPN May 14, 2022 9:54 AM Teresita Bernal APRN.CN Received: Today Hi! Can you please let the patient know his labs from 05/12/22 are unremarkable, no new orders from us at this point in time. Thanks! documented in this encounterCleveland Clinic Mentor Hospital04-05-2023 Miscellaneous Notes* Telephone Encounter - Ramez Calle - 05/13/2022 11:51 AM EDT [facility] Cardiac Rehab phone [phone] fax [phone] Orders, 05/11/22 office encounter & 04/20/22 operative report faxed on 05/13/22 documented in this encounterCleveland Clinic [facility] Hospital04-05-2023 Miscellaneous Notes* PT ROUTINE/REASSESSMENT/RECERT/CASE MGMT - Anthony Kruger PTA - 05/13/2022 11:25 AM EDT SITUATION: POOLING OPERATOR routine visit. daughter present during today's visit. patient and caregiver reports the following since the last homecare visit: medications/allergies--no changes, no fall. patient reports feeling better. BACKGROUND: Diagnoses (reason for Home Care): [facility] on 04/16/2022-04/30/2022. Primary Diagnoses (reason for Home Care): Encounter for surgical aftercare following surgery on thecirculatory system Presence of aortocoronary bypass gr aftNon-ST elevation (NSTEMI) myocardial infarction Atherosclerotic heart disease of [place] coronary artery without angina pectoris Essential (primary) [...] summary for intervention/education details. documented in this encounterCleveland Clinic Mentor Hospital04-04-2023 NoteHNO ID: [id number] Author: Daniel Dawson RN Service: ? Author Type: Registered Nurse Type: Progress Notes Filed: 05/12/2022 2:07 PM Note Text: TRANSITION CARE MANAGEMENT (TCM) FOLLOW-UP NOTE Provider Action/FYI TCM received VM from daughter inquiring about OT. Validated daughter Kaitlyn is involved in patient's care. She is aware [facility] will be reaching out to her later today in regards to OT visit for tomorrow. Kaitlyn appreciative of return call, denies questions/concerns. Patient identified by name and date of : YES Spoke to daughter Kaitlyn Summary: Pt discharged from [facility] on 04/30/22. Admitted for: NSTEMI Hospital Cleaner plan for next outreach: No further follow up needed at this time [facility] Education Ordered -: No Signature Daniel Dawson RN [facility] 12[facility]04-04-[facility] Miscellaneous Notes* SN Routine - Carol Nobles RN - 05/12/2022 2:51 PM EDT SITUATION: Correction routine visit completed today. daughter also present [...] and pt reported from his vs with 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 yesterday and that furosemide was increased back to 40 mg daily for the next 3 days. Pt had a 3 lb weight gain since yesterday but only took 20 mg of the furosemide yesterday. Pt has minimal edema to lower legs andfeet and cg reports that this was worse [...] CABG assessment and instruction. documented in this encounterCleveland Clinic Mentor Hospital04-04-2023 History of Present illness Narrative* Daniel Dawson RN - 05/12/2022 2:03 PM EDT TRANSITION CARE MANAGEMENT (TCM) FOLLOW-UP NOTE Provider Action/FYI TCM received VM from daughter inquiring about OT. Validated daughter Kaitlyn is involved in patient's care. She is aware [facility] will be reaching out to her later today in regards to OT visit for tomorrow. Kaitlyn appreciative of return call, denies questions/concerns. Patient identified by name and date of : YES Spoke to junito Sahni Summary: Pt discharged from [facility] on 04/30/22. Admitted for: NSTEMI Hospital Cleaner plan for next outreach: No further follow up needed at this time MERLINE Education Ordered -: No Signature Daniel Dawson RN May 12, 2022 documented in this encounterCleveland Clinic Mentor [facility]04-04-2023 NotePatient Outreach ([facility]) OLGA LINDSEY ([id number]) 1940 M Date Time Provider Department 05/12/22 DANIEL DAWSON During your visit today, we recorded the following information about you: Daniel Dawson RN 05/12/2022 2:07 PM Signed TRANSITION CARE MANAGEMENT (TCM) FOLLOW-UP NOTE Provider Action/KHAII TCM received VM from daughter inquiring about OT. Validated daughter Kaitlyn is involved in patient's care. She is aware [facility] will be reaching out to her later today in regards to OT visit for tomorrow. Kaitlyn appreciative of return call, denies questions/concerns. Patient identified by name and date of : YES Spoke to daughter Kaitlyn Summary: Pt discharged from [facility] on 04/30/22. Admitted for: NSTEMI Hospital Cleaner plan for next outreach: No further follow [...] 04/30/2022 Encounter Status:Closed by DANIEL DAWSON on 05/12/22[facility] 05-11-2022 NoteHNO ID: [id number] Author: Teresita Bernal APRN.FOUNTAIN WORKER Service: ? Author Type: Nurse Practitioner Type: Progress Notes Filed: 05/11/2022 3:38 PM Note Text: HPI: This is an 82 year old male with a PMHx of HTN, Trigeminal Neuralgia, resting tremor and HLD who presented as a transfer from [facility] to [facility]. He originally presented to [place] 04/15/22 due to worsening chest pain. Initial EKG showed NSR without ST segment changes. HS Trop elevated initially at 2134 and peaked at 3350 per record review. Given HS Trop elevations, prompted patient to undergo Cardiac Cath, which showed MV CAD. Patient diagnosed with NSTEMI, started on Heparin gtt, and transferred to [facility] for CABG evaluation. Patient underwent CABG [...] home with his who also +COVID, with [facility] on 04/30/22, with order for lasix 20 mg daily and K replacement. To have BMP in 1 week. Chart reviewed. 05/03/22 patient's daughter called reporting pt with shortness of breath and was advised to go to ER. At [place] ER per daughter, lasix increased to 40 [...] that I'm in no pain Fever/chills: denies Dizziness/lightheadedness/syncope: dizzy when I first get up Chest pain/palpitations/incisional pain: denies Any drainage from site: denies SOB/cough: coughing all the time, nothing comes up, gets SOB with coughing, better when sitting up per daughter Activity/Ambulation/Stairs: walking with walker, not short of breath Appetite: terrible, daughters state pt has no problem eating [...] 240 mg 24 hr (more content not included)...[facility]04-03-2023 Instructions* Patient Instructions* Teresita Bernal APRN.CNP - 05/11/2022 3:15 PM EDT Weight: Please [...] call us if you have any concerns/questions: [phone] Teresita Bernal APRN.NASH documented in this encounterCleveland Clinic Mentor Hospital04-03-2023 History of Present illness Narrative* Teresita Bernal, FOOT CUTTER.FOUNTAIN WORKER - 05/11/2022 2:00 PM EDT HPI: This is an 82 year old male with a PMHx of HTN, Trigeminal Neuralgia, resting tremor and HLD who presented as a transfer from [facility] to [facility]. He originally presented to [place] 04/15/22 due to worsening chest pain. Initial EKG showed NSR without ST segment changes. HS Trop elevated initially at 2134 and peaked at 3350 per record review. Given HS Trop elevations, prompted patient toundergo Cardiac Cath, which showed MV CAD. Patient diagnosed with NSTEMI, started on Heparin gtt, and transferred to [facility] for CABG evaluation. Patient underwent CABG [...] retention and required reinsertion of justin catheter, buton POD#5 passed voiding trial and is able [...] transitioned to oral cardizem, continued on betablocker. Encouragedambulation/showering. POD 9 Rapid response team for non cardiac chest pain - no ischemic changes toEKG, trop 71 (297 prior). Ambulated in seymour several times subsequently, and showered, tolerated well. POD#10: Tele reviewed a fib 80-90s, no arrhythmias appreciated. VSS, SBP 106- 128, 96% on RA. Denies any current chest [...] home with his who also +COVID, with [facility] on 04/30/22, with order for lasix 20 mg daily and K replacement. To haveBMP in 1 week. Chart reviewed. 05/03/22 patient's daughter called reporting pt with shortness of breath and was advised to go to ER. At [place] ER per daughter, lasix increased to 40 mg daily x 2 days then resume 20mg daily. Mucinex and albuterol added. Leg edema [...] that I'm in no pain Fever/chills: denies Dizziness/lightheadedness/syncope: dizzy when I first get up Chest pain/palpitations/incisional pain: denies Any drainage from site: denies SOB/cough: coughing all the time, nothing comes up, gets SOB with coughing, better when sitting up per daughter Activity/Ambulation/Stairs: walking with walker, not short of breath Appetite: terrible, daughters state pt has no problem eating sweets N/V/D/C/abdominal pain: denies Leg swelling: denies, they're tired though Sleep: sleeps a lot, only wakes from coughing fits Energy: feels tired weights: 216.4 day after discharge, today 203.2 per daughters. Doesn't like the protein shakes. Hasbeen drinking one per day BP & HR [...] Take 1 capsule by mouth once daily. Holdfor heart rate <60, SBP <100 apixaban (ELIQUIS) [...] MEDICAL HISTORY Diagnosis Date HTN (hypertension) 08/12/2013 [place] [facility] Tremor Trigeminal neuralgia PAST SURGICAL HISTORY [...] then transitioned to cardizem CD 240 mg oncedaily at discharge, continue - Continue metoprolol 50 [...] then resume lasix 20 mg dialy and K10 mEq daily. - repeat CXR later this [...] focus - Patient should follow up with production quality analyst, will need follow-up CT chest as well. [...] to schedule with pulm Dr. Tasha Mitchell [phone] - Encouraged pt to schedule with GI Dr. Fabricio Rogel [phone] - encouraged pt to schedule with heme/onc Dr. Radha Moya [phone] PCP follow up appointment: to be scheduled by family Electronically signed by Teresita Bernal APRN.FOUNTAIN WORKER on May 11, 2022, 0 documented in this encounterCleveland Clinic Mentor Hospital03-31-2023 Miscellaneous Notes* Telephone Encounter - Alicia Saldivar RN - 05/08/2022 12:03 PM EDT SN Nicolas SOC completed today and medications reviewed - SEVERE medication interaction between the following medications: apixaban and carBAMazepine, clopidogrel and apixaban. Please review and notify if ptOK to continue as prescribed. Thank you for your time, Alicia STORY, RN documented in this encounterCleveland Clinic Mentor Hospital03-31-2023 Miscellaneous Notes* HH SN Abbrev SOC IV 2nd Visit - Alicia Saldivar RN - 05/08/2022 10:40 AM EDT SITUATION: Correction Abbreviated SOC IV 2nd visit completed today. [...] home with daughter who is visiting from [place] until 05/26. Home environment: clean, uncluttered and has pets: 2 dogs. Patient/CG concerns verbalized today: CG reports pt finished Potassium Chloride - SN reviewed Rx and found pt to be taking in addition to extended doses of Lasix. Daughter to cherry picker operator today Vitals (see flow sheet for details): [...] log, has appetite improved? documented in this encounterCleveland Clinic Mentor Hospital03-30-2023 Miscellaneous Notes* PT EVALUATION - [place], PT - 05/07/2022 1:30 PM EDT SITUATION: daughter present during today's visit. patient reports the following since the last homecare visit:medications/allergies--no changes, no fall. patient reports that he is getting stronger but I'm still getting out of breath . BACKGROUND: Diagnoses (reason for Home Care): [facility] on 04/16/2022-04/30/2022. Primary Diagnoses (reason for Home Care): Encounter for surgical aftercare following surgery on thecirculatory system Presence of aortocoronary bypass gr aftNon-ST elevation (NSTEMI) myocardial infarction Atherosclerotic heart disease of [place] coronary artery without angina pectoris Essential (primary) hypertension COVID-19 PROCEDURE(S): 04/20/2022 Coronary Artery Bypass Graft ACTIVE PROBLEM LIST Essential Hypertension, Benign Hyperlipidemia Trigemina l Nerve Disorder Tremor Meningioma (Hcc) Nstemi (Non-St Elevated Myocardial Infarction) (Hcc) See intervention summary for intervention/education details. Weight Bearing or Surgical Precautions: sternal precautions ASSESSMENT: [facility]. Reviewed and explained homecare [...] summary for intervention/education details. documented in this encounterCleveland Clinic Mentor Hospital03-29-2023 Miscellaneous Notes* SN Alberto SOC IV 1st Visit - Alicia Saldivar RN - 05/06/2022 7:04 PM EDT SITUATION: Correction Abbreviated SOC IV1st visit completed today. daughter also present during today's visit. patient and caregiver reports the following: Allergies--reviewed Medications--full medication reconciliation completed Falls--None BACKGROUND: Discharged/Referral from acute care hospital on 04/30 following treatment for NSTEMI, [...] all aspects of care at this time. Ptlives in ranch style home and ambulates with rollator. Daughter has medications very neatly organized and manages them for pt. Pt has automatic BP cuff to monitor BP/HR prior to taking metoprolol and cardiazem. Daughter aware or parameters. No edema noted. Dyspnea on exertion. Pt using inhaler PRN,but denies it helping much. SN observed pt using inhaler to ensure it was being done correctly, no concerns noted. LS with rhonchi in upper lobes, clear otherwise. Pt has moist and occasional productive cough (clear, thin mucous). Incision - chest and LLE healing well - closed with glue and withouts/s infection. Plan of care reviewed with pt/daughter who are agreeable. See intervention summary for education details and skills performed. Additional concerns to be followed up on: NONE documented in this encounterCleveland Clinic Mentor Hospital03-28-2023 History of Present illness Narrative* Catracho Sutton RN - 05/05/2022 1:07 PM EDT TRANSITIONAL CARE MANAGEMENT (TCM) COMMUNITY MONITORING PROGRAM Provider Action/FYI: TCM Chart review Name removed from care team tab. Pt has outside PCP Updated pcp to Dr Shira Brady, confirmed pcp in care everywhere Outside pcp, cannot schedule for outside pcp SUMMARY: Pt discharged from [facility] on 04/30/22. Admitted for: NSTEMI Contact made with patient: No Outreach ended Catracho Sutton RN documented in this encounterCleveland Clinic Ment[facility] Hospital03-26-2023 Miscellaneous Notes* CARE COORDINATION - Jennifer Holt RN - 05/03/2022 8:32 AM EDT Unmade Visit today- patient back in hospital documented in this encounterCleveland Clinic Ment[facility]03-24-2023 History of Present illness Narrative* Daniel Dawson RN - 05/01/2022 3:43 PM EDT Images from the original note were not [...] you Follow-up with Dr. Rogel or another senior technical program manager/a&p mechanic regarding right hepatic cystic liver lesion in 4 weeks Follow-up with Dr. Alan Kiser or another oncologist regarding sclerotic lesion in T1 and left 10thrib in 4 weeks Follow-up with Dr. Kent or production quality analyst regarding follow-up on bilateral lower lobe lung nodules in 4 weeks Cards in 6 weeks Vascular 05/11 Daughter aware of above appts. Needed and reports she will call Wednesday to . [facility] - provided contact information to daughter, has [...] patient at home until she returns to [place]. Pt. Reports doing well. BM, brown, formed, [...] home - currently admitted into ICU at [facility]- support provided COVID-19 Caregiver Adult Monitoring COVID-19 [...] like to speak with a social work rock climbing team member to help give you support for any of these needs? No It can be normal to feel anxious or down during a time like this. Would you like to talk to a mental health professional about how you have been feeling? No SUMMARY: Pt discharged from [facility] on 04/30/22. Admitted for: NSTEMI/covid Contact made with patient: Yes Hi my name is Daniel Dawson RN and I am calling from the [facility] on behalf of your PCP,Jose Ramon Welch MD I understand you were [...] like to speak with a social work rock climbing team member to help give you support for any [...] provider to ensure you have safely transitioned home.If you are agreeable, I will send your request to a bioinformatics programmer who will contact and assist you with that appointment. This will give you an opportunity to ask any questions or address any concerns youmay have with your PCP. Inform the patient that if they have any questions or concerns prior to that appointment, to call their PCP's office right away. ACTION TAKEN: Patient desires an appointment - Routed to [facility] [[id number]] for schedulingtelehealth visit (telephonic, virtual visit, or Facetime) within [...] unless instructed to do so. For any non- emergency symptoms, call your Doctor s office to get instructions on how to manage (we might recommend a telephone or virtualvisit). For emergency symptoms, proceed to Emergency Department as usual but inform them of cough and fever symptoms KEVIN if present (or call on the way if possible). MERLINE Education Ordered -: No * Catracho Sutton RN - 05/01/2022 8:47 AM EDT TCM Home Visit Referral Source of Stratification: [facility] Admission Status: Discharged Readmission Risk Score: 26 BARRY Score: 14 Patient meets program referral criteria: No Patient does not qualify for High Risk TCM Home Visit program due to: Discharged home, does not meet program criteria Catracho Sutton RN May 01, 2022 8:47 AM TRANSITIONAL CARE MANAGEMENT (TCM) COMMUNITY MONITORING PROGRAM Provider Action/FYI: Outreach attempt #1 Unable to reach patient. Left message. Will try again later Pt does not have PCP scheduled at this time. Appointments for Next 60 Days Date Time Provider Location Dept Phone 05/03/2022 4:00 AM HOME CARE, NURSING [facility] [phone] 05/04/2022 6:30 AM HOME CARE, OT [facility] [phone] 05/04/2022 6:30 AM [facility] [phone] 05/11/2022 2:00 PM TERESITA BERNAL GENERA [phone] SUMMARY: Pt discharged from [facility] on 04/30/22. Admitted for: NSTEMI HPI: This is a 82 year old male with a PMHx of HTN, Trigeminal Neuralgia, resting tremor and HLD who presents as a transfer from [facility]. He originally presented to [place] 04/15 due to worsening chest pain. Initial EKG showed NSR without ST segment changes, per my interpretation. HS Trop elevated initially at 2134 at peakedat 3350 per record review. Given HS Trop elevations, prompted patient to undergo Cardiac Cath, which showed MV CAD. Patient diagnosed with NSTEMI, started on Heparin gtt, and transferred to [facility] for CABG evaluation. Patient notes he [...] CT PE negative for pulmonary embolism. Small pericardialeffusion. A fib rvr 160s around 1900 so cardizem gtt was started as well. POD 8 transitioned to oral cardizem, continued on betablocker. Encouraged ambulation/showering. POD 9 Rapid response team for non cardiac chest pain - no ischemicchanges to EKG, trop 71 (297 prior). Ambulated in [place] several times yesterday and showered, tolerated well. POD#10: Pt seen on 4200 this AM. Tele reviewed a fib 80-90s, no arrhythmias appreciated. VSS, SBP 106-128, 96% on RA. Denies anycurrent chest pain, palp, sob, lh or dizziness. + nonproductive moist cough at times, improving each day. Reports looseBM last hs, none today. Voiding without difficulty. [...] and thus will be going home with hiswife with [facility] Contact made with patient: No - next outreach attempt will be on next day Outreach ended Catracho Sutton RN documented in this encounterCleveland Clinic Mentor Hospital03-23-2023 Miscellaneous Notes* Telephone Encounter - Octavia Eisenberg LPN - 04/30/2022 5:[address] Javier Alex [facility] spoke with the patient and they are agreeable to a SOC on 05/03/22 Please let us know if you are agreeable to this date. If we do not hear back, we will continue withthis planned date. Thank you, Octavia Eisenberg LPN [facility] documented in this encounterCleveland Clinic Mentor Hospital03-23-2023 Miscellaneous Notes* Telephone Encounter - Constantine Wren - 04/30/2022 4:16 PM EDT Welcome Home Call: a. Date and Time: 4:17 PM 04/30/2022 b. Contact name/relationship: Kimmie/spouse c. Have you been active with any Home Care company in the last 60 days(such as help with bathing, filling medications, checking your blood pressure) ? No. d. Was patient given Flu shot this Season (After Oct,): No: Patient refused e. [facility] will be providing your care, [...] maintain a safe environment for our caregivers, [facility] requires anyanimals or weapons present in the home be located in a secured location. Our clinicians will call you the night before or the morning of the appointment. Their # may come up restricted but they'll leave a VM for you. In case you have any questions or concerns in the meantime, our # is [phone], option 5 Thank you for your time and have a great day. Constantine Wren documented in this encounterCleveland Clinic Mentor Hospital03-23-2023 Miscellaneous Notes* Telephone Encounter - Constantine Eisenberg LPN - 04/30/2022 3:25 PM EDT Spoke with Teresita Bernal,NASH & Dr. Alex will follow [facility] care. Melina @ [facility] notified. Constantine Eisenberg LPN * Telephone Encounter - Constantine Eisenberg LPN - 04/30/2022 10:05 AM EDT Melina from [facility] called asking if Dr. Alex would be the provider following [facility] orders. Melina can be reached @ [phone]. Constantine Eisenberg LPN documented in this encounterCleveland Clinic Mentor Hospital03-10-2023 History of Past illness Narrative* Problem Noted Date Resolved Date NSTEMI (non-ST elevated myocardial infarction) 0 04/17/2022 04/30/2022 Closed nondisplaced fracture of styloid process of right ulna 03/25/2015 10/24/2015 documented as of this encounter (statuses as of 04/30/2022) [address]10-2023 History of Past illness Narrative* Problem Noted Date Resolved Date NSTEMI (non-ST elevated myocardial infarction) 0 04/17/2022 04/30/2022 Closed nondisplaced fracture of styloid process of right ulna 03/25/2015 10/24/2015 documented as of this encounter (statuses as of 05/01/2022) [address]10-2023 History of Past illness Narrative* Problem Noted Date Resolved Date NSTEMI (non-ST elevated myocardial infarction) 0 04/17/2022 04/30/2022 Closed nondisplaced fracture of styloid process of right ulna 03/25/2015 10/24/2015 documented as of this encounter (statuses as of 05/03/2022) [address]10-2023 History of Past illness Narrative* Problem Noted Date Resolved Date NSTEMI (non-ST elevated myocardial infarction) 0 04/17/2022 04/30/2022 Closed nondisplaced fracture of styloid process of right ulna 03/25/2015 10/24/2015 documented as of this encounter (statuses as of 05/05/2022) [address]10-2023 History of Past illness Narrative* Problem Noted Date Resolved Date NSTEMI (non-ST elevated myocardial infarction) 0 04/17/2022 04/30/2022 Closed nondisplaced fracture of styloid process of right ulna 03/25/2015 10/24/2015 documented as of this encounter (statuses as of 05/07/2022) [address]10-2023 History of Past illness Narrative* Problem Noted Date Resolved Date NSTEMI (non-ST elevated myocardial infarction) 0 04/17/2022 04/30/2022 Closed nondisplaced fracture of styloid process of right ulna 03/25/2015 10/24/2015 documented as of this encounter (statuses as of 05/08/2022) [address]-2023 History of Past illness Narrative* Problem Noted Date Resolved Date NSTEMI (non-ST elevated myocardial infarction) 0 04/17/2022 04/30/2022 Closed nondisplaced fracture of styloid process of right ulna 03/25/2015 10/24/2015 documented as of this encounter (statuses as of 05/08/2022) [address]-2023 History of Past illness Narrative* Problem Noted Date Resolved Date NSTEMI (non-ST elevated myocardial infarction) 0 04/17/2022 04/30/2022 Closed nondisplaced fracture of styloid process of right ulna 03/25/2015 10/24/2015 documented as of this encounter (statuses as of 05/12/2022) [address]23 History of Past illness Narrative* Problem Noted Date Resolved Date NSTEMI (non-ST elevated myocardial infarction) 0 04/17/2022 04/30/2022 Closed nondisplaced fracture of styloid process of right ulna 03/25/2015 10/24/2015 documented as of this encounter (statuses as of 05/12/2022) [address]-2023 History of Past illness Narrative* Problem Noted Date Resolved Date NSTEMI (non-ST elevated myocardial infarction) 0 04/17/2022 04/30/2022 Closed nondisplaced fracture of styloid process of right ulna 03/25/2015 10/24/2015 documented as of this encounter (statuses as of 05/12/2022) [address]-2023 History of Past illness Narrative* Problem Noted Date Resolved Date NSTEMI (non-ST elevated myocardial infarction) 0 04/17/2022 04/30/2022 Closed nondisplaced fracture of styloid process of right ulna 03/25/2015 10/24/2015 documented as of this encounter (statuses as of 05/13/2022) [address]10-2023 History of Past illness Narrative* Problem Noted Date Resolved Date NSTEMI (non-ST elevated myocardial infarction) 0 04/17/2022 04/30/2022 Closed nondisplaced fracture of styloid process of right ulna 03/25/2015 10/24/2015 documented as of this encounter (statuses as of 05/13/2022) [address]-2023 History of Past illness Narrative* Problem Noted Date Resolved Date NSTEMI (non-ST elevated myocardial infarction) 0 04/17/2022 04/30/2022 Closed nondisplaced fracture of styloid process of right ulna 03/25/2015 10/24/2015 documented as of this encounter (statuses as of 05/13/2022) [address]-2023 History of Past illness Narrative* Problem Noted Date Resolved Date NSTEMI (non-ST elevated myocardial infarction) 0 04/17/2022 04/30/2022 Closed nondisplaced fracture of styloid process of right ulna 03/25/2015 10/24/2015 documented as of this encounter (statuses as of 05/14/2022) [address]10-2023 History of Past illness Narrative* Problem Noted Date Resolved Date NSTEMI (non-ST elevated myocardial infarction) 0 04/17/2022 04/30/2022 Closed nondisplaced fracture of styloid process of right ulna 03/25/2015 10/24/2015 documented as of this encounter (statuses as of 05/15/2022) [address]10-2023 History of Past illness Narrative* Problem Noted Date Resolved Date NSTEMI (non-ST elevated myocardial infarction) 0 04/17/2022 04/30/2022 Closed nondisplaced fracture of styloid process of right ulna 03/25/2015 10/24/2015 documented as of this encounter (statuses as of 05/16/2022) [address]10-2023 History of Past illness Narrative* Problem Noted Date Resolved Date NSTEMI (non-ST elevated myocardial infarction) 0 04/17/2022 04/30/2022 Closed nondisplaced fracture of styloid process of right ulna 03/25/2015 10/24/2015 documented as of this encounter (statuses as of 05/18/2022) [address]-2023 History of Past illness Narrative* Problem Noted Date Resolved Date NSTEMI (non-ST elevated myocardial infarction) 0 04/17/2022 04/30/2022 Closed nondisplaced fracture of styloid process of right ulna 03/25/2015 10/24/2015 documented as of this encounter (statuses as of 05/18/2022) [address]-2023 History of Past illness Narrative* Problem Noted Date Resolved Date NSTEMI (non-ST elevated myocardial infarction) 0 04/17/2022 04/30/2022 Closed nondisplaced fracture of styloid process of right ulna 03/25/2015 10/24/2015 documented as of this encounter (statuses as of 05/19/2022) [address]10-2023 History of Past illness Narrative* Problem Noted Date Resolved Date NSTEMI (non-ST elevated myocardial infarction) 0 04/17/2022 04/30/2022 Closed nondisplaced fracture of styloid process of right ulna 03/25/2015 10/24/2015 documented as of this encounter (statuses as of 05/21/2022) [address]10-2023 History of Past illness Narrative* Problem Noted Date Resolved Date NSTEMI (non-ST elevated myocardial infarction) 0 04/17/2022 04/30/2022 Closed nondisplaced fracture of styloid process of right ulna 03/25/2015 10/24/2015 documented as of this encounter (statuses as of 05/21/2022) [address]10-2023 History of Past illness Narrative* Problem Noted Date Resolved Date NSTEMI (non-ST elevated myocardial infarction) 0 04/17/2022 04/30/2022 Closed nondisplaced fracture of styloid process of right ulna 03/25/2015 10/24/2015 documented as of this encounter (statuses as of 05/22/2022) [address]10-2023 History of Past illness Narrative* Problem Noted Date Resolved Date NSTEMI (non-ST elevated myocardial infarction) 0 04/17/2022 04/30/2022 Closed nondisplaced fracture of styloid process of right ulna 03/25/2015 10/24/2015 documented as of this encounter (statuses as of 05/22/2022) [address]10-2023 History of Past illness Narrative* Problem Noted Date Resolved Date NSTEMI (non-ST elevated myocardial infarction) 0 04/17/2022 04/30/2022 Closed nondisplaced fracture of styloid process of right ulna 03/25/2015 10/24/2015 documented as of this encounter (statuses as of 05/26/2022) [address]10-2023 History of Past illness Narrative* Problem Noted Date Resolved Date NSTEMI (non-ST elevated myocardial infarction) 0 04/17/2022 04/30/2022 Closed nondisplaced fracture of styloid process of right ulna 03/25/2015 10/24/2015 documented as of this encounter (statuses as of 05/28/2022) [address]10-2023 History of Past illness Narrative* Problem Noted Date Resolved Date NSTEMI (non-ST elevated myocardial infarction) 0 04/17/2022 04/30/2022 Closed nondisplaced fracture of styloid process of right ulna 03/25/2015 10/24/2015 documented as of this encounter (statuses as of 05/28/2022) [address]10-2023 History of Past illness Narrative* Problem Noted Date Resolved Date NSTEMI (non-ST elevated myocardial infarction) 0 04/17/2022 04/30/2022 Closed nondisplaced fracture of styloid process of right ulna 03/25/2015 10/24/2015 documented as of this encounter (statuses as of 06/03/2022) [address]10-2023 History of Past illness Narrative* Problem Noted Date Resolved Date NSTEMI (non-ST elevated myocardial infarction) 0 04/17/2022 04/30/2022 Closed nondisplaced fracture of styloid process of right ulna 03/25/2015 10/24/2015 documented as of this encounter (statuses as of 06/03/2022) [address]10-2023 History of Past illness Narrative* Problem Noted Date Resolved Date NSTEMI (non-ST elevated myocardial infarction) 0 04/17/2022 04/30/2022 Closed nondisplaced fracture of styloid process of right ulna 03/25/2015 10/24/2015 documented as of this encounter (statuses as of 06/10/2022) [address]10-2023 History of Past illness Narrative* Problem Noted Date Resolved Date NSTEMI (non-ST elevated myocardial infarction) 0 04/17/2022 04/30/2022 Closed nondisplaced fracture of styloid process of right ulna 03/25/2015 10/24/2015 documented as of this encounter (statuses as of 07/25/2022) [address]10-2023 History of Past illness Narrative* Problem Noted Date Diagnosed Date Resolved Date NSTEMI (non-ST elevated myoc ardial infarction) 04/17/2022 04/30/2022 Closed nondisplaced fracture of styloid process of right ulna 03/25/2015 10/24/2015 documented as of this encounter (statuses as of 04/02/2023) [address]10-2023 History of Past illness Narrative* Problem Noted Date Diagnosed Date Resolved Date NSTEMI (non-ST elevated myoc ardial infarction) 04/17/2022 04/30/2022 Closed nondisplaced fracture of styloid process of right ulna 03/25/2015 10/24/2015 documented as of this encounter (statuses as of 04/12/2023) [address]10-2023 History of Past illness Narrative* Problem Noted Date Diagnosed Date Resolved Date NSTEMI (non-ST elevated myoc ardial infarction) 04/17/2022 04/30/2022 Closed nondisplaced fracture of styloid process of right ulna 03/25/2015 10/24/2015 documented as of this encounter (statuses as of 04/29/2023) [address]10-2023 History of Past illness Narrative* Problem Noted Date Diagnosed Date Resolved Date NSTEMI (non-ST elevated myoc ardial infarction) 04/17/2022 04/30/2022 Closed nondisplaced fracture of styloid process of right ulna 03/25/2015 10/24/2015 documented as of this encounter (statuses as of 04/30/2023) [address]10-2023 History of Past illness Narrative* Problem Noted Date Diagnosed Date Resolved Date NSTEMI (non-ST elevated myoc ardial infarction) 04/17/2022 04/30/2022 Closed nondisplaced fracture of styloid process of right ulna 03/25/2015 10/24/2015 documented as of this encounter (statuses as of 05/14/2023) [address]10-2023 History of Past illness Narrative* Problem Noted Date Diagnosed Date Resolved Date NSTEMI (non-ST elevated myoc ardial infarction) 04/17/2022 04/30/2022 Closed nondisplaced fracture of styloid process of right ulna 03/25/2015 10/24/2015 documented as of this encounter (statuses as of 05/14/2023) [facility]03-10-2023 History of Past illness Narrative* Problem Noted Date Resolved Date NSTEMI (non-ST elevated myocardial infarction) 0 04/17/2022 04/30/2022 Closed nondisplaced fracture of styloid process of right ulna 03/25/2015 10/24/2015 documented as of this encounter (statuses as of 06/06/2022) [facility]03-09-[address] Crockett [facility] April 16, 2022 1:57pm Note Date/Time April 16, 2022 1:57 pm [facility] Medical Records Department [address] [place] [id number] Progress Note - Cardiology 04/16/22 1350 MR#: [id number] Acct: [id number] Name: OLGA LINDSEY Rep #:[id number] : 1940 82 From: Garett Crockett MD PCP: Dr. Shira Brady MD Status:ADM IN Location: [place] [address] Subjective Subjective The patient was evaluated earlier this day. He stated while he has been restinghe has been feeling okay . He has not complained of any obvious recurrent events of his chest discomfort or dyspnea that originally brought him to the hospital. The patient underwent diagnostic cardiac catheterization earlier this day without any obvious adverse events. He was found to have angiographically significant multivessel disease. He has been recommended for coronary revascularization therapy with CABG. Objective Data Vital Signs: Vital Signs Temp Pulse Resp BP Pulse Ox O2 Del Method 97.3 F L 56 L 16 186/87 H 100 Room Air 04/16/22 11:37 04/16/22 11:37 04/16/22 11:37 04/16/22 12:32 04/16/22 11:37 04/16/22 11:37 Oxygen Delivery Method Room Air Weight: 215 lb 8 oz Body Mass Index (BMI) 30.9 Intake & Output: Intake and Output for Last 24 Hours 04/14/22 04/15/22 04/16/22 23:59 23:59 23:59 Intake Total 70 / 70 1179.25 / 1179.25 Balance 70 / 70 1179.25 / 1179.25 Lab / Micro Data Result Diagrams: 04/16/22 02:05 04/16/22 02:05 Labs: Laboratory Results - last 24 hr 04/15/22 12:25: Phosphorus 2.6, Magnesium 2.1 04/15/22 12:25: PT 13.6, INR 1.1, APTT 33.4 04/15/22 15:14: Troponin I High Sens 3350 H* 04/15/22 20:18: APTT 74.3 H 04/15/22 20:18: Troponin I High Sens 3085 H* 04/16/22 02:05: WBC 7.5, RBC 4.27 L, Hgb 12.8 L, Hct 37.6 L, MCV 88.1, MCH 30.0,MCHC 34.0, RDW Std Deviation 42.4, RDW Coeff of Maday 13.2, Plt Count 160, MPV 8.7 04/16/22 02:05: Sodium 135 L, Potassium 3.9, Chloride 101, Carbon Dioxide 30.0, Anion Gap 4 L, BUN 19 H, Creatinine 0.72, Estim Creat Clear Calc 59.82, Est GFR (MDRD) Af Amer 135, Est GFR (MDRD) Non-Af 112, BUN/Creatinine Ratio 26.5 H, Glucose 114 H, Calcium 9.6, Total Bilirubin 0.30, AST 27, ALT 22, Alkaline Phosphatase 71, Total Protein 6.4, Albumin 3.3, Globulin 3.1, Albumin/Globulin Ratio 1.1, Triglycerides 138, Cholesterol 201 H, LDL Cholesterol 117, VLDL Cholesterol 28, HDL Cholesterol 56, TSH 4.53 H 04/16/22 02:05: Hemoglobin A1c 5.8 H 04/16/22 02:05: APTT 63.6 H 04/16/22 02:05: Free T4 0.75 L Rhythm Strip Rhythm Strip: Sinus Rhythm Rate: 74 Ectopy: None Cardiology Labs/Tests 04/15/22 12:25: Phosphorus 2.6, Magnesium 2.1 04/15/22 12:25: PT 13.6, INR 1.1, APTT 33.4 04/15/22 20:18: APTT 74.3 H 04/16/22 02:05: WBC 7.5, RBC 4.27 L, Hgb 12.8 L, Hct 37.6 L, MCV 88.1, MCH 30.0,MCHC 34.0, Plt Count 160, MPV 8.7 04/16/22 02:05: Sodium 135 L, Potassium 3.9, Chloride 101, Carbon Dioxide 30.0, Anion Gap 4 L, BUN 19 H, Creatinine 0.72, Est GFR (MDRD) Af Amer 135, Est GFR (MDRD) Non-Af 112, BUN/Creatinine Ratio 26.5 H, Glucose 114 H, Calcium 9.6, Total Bilirubin 0.30, Triglycerides 138, Cholesterol 201 H, LDL Cholesterol 117,VLDL Cholesterol 28, HDL Cholesterol 56 04/16/22 02:05: Hemoglobin A1c 5.8 H 04/16/22 02:05: APTT 63.6 H Rhythm: Sinus rhythm EKG: Sinus bradycardia; no acute ECG change ECHO: See below Cardiac Cath: CONCLUSIONS Normal Left Ventricular End Diastolic Pressure [place] Multivessel CAD RECOMMENDATIONS Risk factor modification Medical therapy Surgery consult for coronary revascularization DESCRIPTION OF? PROCEDURE The patient arrived to the procedure lab. The risks and benefits of the procedure as well as a full description of our services here and current unavailability of surgical backup were fully explained to the patient and/or their significant other prior to the catheterization. The Timeout was completed, verifying the correct patient and procedure. The patient's procedural site was prepped and draped in the usual fashion. Local anesthetic was given subcutaneously to right radial region with Lidocaine 2%. Using a modified Seldinger technique, arterial access was obtained via the right radial artery, a 6Fr sheath was inserted.? LV to AO pullback pressures were then recorded. Right Coronary Artery selective angiography was then performed in multiple views using a 5 Fr. 4.0 [place] catheter. Left Coronary Artery selective angiography was performed in multiple views using a 5 Fr. JL3.5 catheter.The arterial sheath was pulled and a TR Band was applied for hemostasis CORONARY ANGIOGRAPHY DOMINANCE:? Right Dominant LEFT HEART ASSESSMENT Left Ventricular Ejection Fraction: Not assessed Normal Left Ventricular End Diastolic Pressure LVEDP: 10 mmHg LEFT MAIN: Severe calcification, proximal: eccentric: 25 % Stenosis, distal: 50 % Stenosis LEFT ANTERIOR DESCENDING ARTERY: OSTIAL LAD: 75 % Stenosis PROX LAD: Severe calcification MID LAD: Severe calcification, Mild luminal irregularities CIRCUMFLEX ARTERY: OSTIAL CIRC: 75 % Stenosis PROX CIRC: Severe calcification OM 1: Mid - 50 % Stenosis RIGHT CORONARY ARTERY: Mild calcification Mild luminal irregularities OSTIAL RCA: 90 % Stenosis DISTAL RCA: 50 % Stenosis COMPLICATIONS No Complications Radiography Diagnostic Testing: Radiology Impression Echocardiogram 04/16/22 05:55 Interpretation Summary Left ventricular systolic function is normal. The estimated ejection fraction is 65 %. The left atrium is mildly enlarged. Mild diffuse mitral valve thickening. Mild (1+) mitral valve insufficiency. Mild tricuspid valve insufficiency. Mild diffuse aortic valve thickening. Moderate focal aortic valve calcification. Calcified aortic root. Right ventricular systolic pressure estimated to be 30 mmHg. No evidence for diastolic dysfunction. Ordering Physician: Lai Gallardo Referring Physician: Shira Brady M.D. Performed By: Erin Yap RCS Physical Exam Const alert, oriented x3, no apparent distress and healthy appearing Orientation / Consciousness: awake HEENT normocephalic, head/scalp atraumatic and hearing grossly normal bilaterally Eyes PERRL, EOMs intact bilaterally and conjunctivae normal Neck full ROM, supple and no JVD Carotids: normal carotid upstroke Resp normal respiratory effort and clear to auscultation bilaterally Cardio regular rate, regular rhythm, S1 normal heart sound and S2 normal heart sound GI normal to inspection, nondistended, normoactive bowel sounds Extremity no pedal edema Skin no rashes or lesions noted Psych mental status grossly normal Assessment & Plan Assessment/Plan (1) Unstable angina: PLAN: The patient has symptoms which appeared initially compatible with stable exertional angina pectoris. However the time of this appears to be worsening tothe point where it may be compatible with an unstable angina pectoris. At the same time he has been evaluated. He has been found to have objective findings compatible with an acute non-ST segment elevation WI. At the present time he is resting comfortably. He has subsequently undergone evaluation with a transthoracic echocardiogram afshan diagnostic cardiac catheterization as noted. He will continue medical therapy which includes his aspirin, nitrates as needed,beta-blockers, ALBAN inhibitor therapy, lipid-lowering therapy with statins, and his anticoagulant therapy. He is being referred for CT surgery evaluation for coronary bypass grafting surgery. The patient's case was discussed with Dr. Alex at [facility] CT surgery. He agreed to accept the patient in transfer for further evaluation and care. (2) Non-ST elevated myocardial infarction: PLAN: The patient does have findings compatible with an acute non-ST segment elevation WI. He has now undergone both noninvasive and invasive valuation as noted. He will continue his medical therapy. As noted above he is pending transfer to [facility] for consideration for CABG. (3) Hyperlipemia: PLAN: The patient will continue with lipid-lowering therapy. (4) Hypertension: PLAN: The patient states his blood pressure has been challenging to control. His blood pressure will be monitored. His medication can be adjusted as needed. Addt'l Comments The patient's case was discussed and reviewed with the patient and via telephoneconversation with his . The patient's case was discussed and reviewed with Dr. Edawrds of interventional cardiology. The patient's case was also discussed with Dr. Alex of CT surgery at [facility] Comment: Time spent in the patient's evaluation, examination, review of medical records/imaging studies, placing orders, documentation, discussion with the family, and discussion with other health care providers, etc.: 50 minutes 04/16/22 0667 <Electronically signed by Garett Crockett MD> Cosigner Signature (if applicable): CC: ~ Signed [facility] Work Phone: [phone]) 926-317203-08-[address] Crockett [facility] April 15, 2022 8:17pm Note Date/Time April 15, 2022 8:17 pm [facility] Medical Records Department [address] [place] [id number] Consultation - Cardiology 04/15/222007 MR#: [id number] Acct: [id number] Name: OLGA LINDSEY Rep #:[id number] : 1940 82 From: Garett Crockett MD PCP: Dr. Shira Brady MD Status:ADM IN Location: [place] [address]- 1 Assessment & Plan Assessment/Plan (1) Unstable angina: PLAN: The patient has symptoms which appeared initially compatible with stable exertional angina pectoris. However the time of this appears to be worsening tothe point where it may be compatible with an unstable angina pectoris. At the same time he has been evaluated. He has been found to have objective findings compatible with an acute non-ST segment elevation WI. At the present time he is resting comfortably. He will continue to be monitored. His cardiac enzymes and ECG will be followed. He will be asked to have an echocardiogram to assess his left ventricular wall motion and systolic function. He was recommended for further evaluation with diagnostic cardiac catheterization. The procedures were discussed with him. He was agreeable to thisapproach. In the interim he will continue medical therapy which includes his aspirin, nitrates as needed, beta-blockers, ALBAN inhibitor therapy, lipid-lowering therapywith statins, and his anticoagulant therapy. (2) Non-ST elevated myocardial infarction: PLAN: The patient does have findings compatible with an acute non-ST segment elevation WI. This is based upon his high-sensitivity troponin I level changes. Thus far there is been no other etiology to explain his symptoms or these findings. He will continue to be monitored and he will continue medical management as noted above. He will proceed with noninvasive and invasive valuation as noted above. (3) Hyperlipemia: PLAN: The patient will continue with lipid-lowering therapy. (4) Hypertension: PLAN: The patient states his blood pressure has been challenging to control. His blood pressure will be monitored. His medication can be adjusted as needed. Addt'l Comments The patient's case was discussed and reviewed with the patient, Dr. Mccabe at the [facility] emergency department staff, and Dr. Gallardo of the [facility] staff. Comment: Time spent in the patient's overall evaluation, examination, review of medical records, review of radiologic images, placing orders, documentation, anddiscussion with the patient and the medical staff members, etc.: 60 minutes. HPI Consult Data Date of Consult: 04/15/22 HPI Narrative HPI Narrative: OLGA LINDSEY, is a 82 year old white male who presents for vascular consultation based upon concerns of an acute non-ST segment elevation WI superimposed upon a history of hyperlipidemia and hypertension. The patient states for approximately the last 2 weeks she has been noticing exertional symptoms of chest discomfort which she describes as a compression on his chest that radiates down both upper extremities that improves with rest. He also notes when this occurs he feels more short of breath and dyspneic that also improves with rest. He states this is progressively gotten worse over the last 2 weeks to limit his abilities to complete his household related activities/chores whichdo include helping to take care of 10 horses and his spouse. He states his symptoms have gotten to the point where he can only walk a very short distance without noticing the discomfort. At the same time he has not had any associatednausea, emesis, or diaphoresis. He denies any orthopnea or PND or peripheral pitting edema. He denies any history of near syncope or syncope. To the best of his knowledge she has never required cardiovascular evaluation. Based upon his symptoms he presented to the emergency department for further evaluation. He was noted to have a high-sensitivity troponin I level 2134 whichis subsequently increased to 3350. His ECG demonstrated sinus rhythm with minimal voltage criteria for LVH with nonspecific ST and T wave changes. His chest x-ray was reviewed. He did not appear to have any acute cardiopulmonary disease process. He was subsequently placed in the PCU for further evaluation and care. He was started on medical therapy which included aspirin, carvedilol, in addition to continuation of his HCTZ therapy, lisinopril therapy, amlodipine therapy, and his statin therapy. He was also placed on IV heparin. At the present time he appears to be resting comfortably. He has no acute symptoms at rest. [facility] Medical History Back problem Brainstem tumor Hearing problem Hyperlipemia Hypertension Trigeminal nerve disease Home Medications amlodipine 5 mg tablet 5 mg PO DAILY #90 tabs 01/14/21 [Rx Last Taken Unknown] potassium chloride 10 mEq tablet,extended release 10 meq PO BID #180 tabs 01/14/21 [Rx Last Taken Unknown] carbamazepine 200 mg tablet 200 mg PO TID #270 tabs 01/12/22 [Rx Last Taken Unknown] hydrochlorothiazide 25 mg tablet 25 mg PO DAILY #90 tabs 01/12/22 [Rx Last Taken Unknown] levothyroxine 25 mcg tablet 25 mcg PO DAILY #90 tabs 01/12/22 [Rx Last Taken Unknown] lisinopril 40 mg tablet 40 mg PO DAILY #90 tabs 01/12/22 [Rx Last Taken Unknown] lovastatin 20 mg tablet 20 mg PO QPM #90 tabs 01/12/22 [Rx Last Taken Unknown] Allergy/AdvReac Type Severity Reaction Status Date / Time No Known Allergies Allergy Verified 09/17/21 13:27 Surgical History History of prostate surgery Hx of skin graft Social History Smoking Status: Former smoker how long ago did patient quit smokin02/08/1969 alcohol intake: never substance use type: does not use what type of physical activity do you participate in: none ROS Constitutional Constitutional: Reports as per HPI Eyes Eyes: Reports as per HPI ENT HEENT: Reports as per HPI Cardiovascular Cardiovascular: Reports chest pain with activity Respiratory/Chest Respiratory/Chest: Reports dyspnea on exertion Gastrointestinal Gastrointestinal: Reports as per HPI Genitourinary Genitourinary: Reports as per HPI Musculoskeletal Musculoskeletal: Reports as per HPI Integumentary Integumentary: Reports as per HPI Neurologic Neurologic: Reports as per HPI Physical Exam Const alert, oriented x3, no apparent distress and healthy appearing Orientation / Consciousness: awake HEENT normocephalic, head/scalp atraumatic and hearing grossly normal bilaterally Eyes PERRL, EOMs intact bilaterally and conjunctivae normal Neck full ROM, supple and no JVD Carotids: normal carotid upstroke Resp normal respiratory effort and clear to auscultation bilaterally Cardio regular rate, regular rhythm, S1 normal heart sound and S2 normal heart sound GI normal to inspection, nondistended, normoactive bowel sounds Extremity no pedal edema Skin no rashes or lesions noted Psych mental status grossly normal Risk Stratification Risk Stratification Applicable: Yes Age >/= 65: Yes >/= 3 CAD Risk Factors (HTN, HLD, DM, family hx of CAD, or current smoker): Yes Aspirin Use in the Past 7 Days: No Severe Angina (>/= episodes in 24 hours): Yes EKG ST Changes >/= 0.5mm: No Positive Cardiac Marker: Yes MANOJ Risk Stratification Score: 4 MANOJ % Risk: 20% Risk Procedure Criteria Type of Procedure Procedure Type: Elective Elective Risks - COVID COVID Risk Discussion: The surgeon/proceduralist and patient have discussed in detail the risk of exposure to and/or potential harm posed by the COVID-19 virus with having a surgery/procedure at this time versus the risk of delaying the surgery/procedure. It is not possible to know either the risk of delaying the surgery or procedure or chance of getting an infection with perfect accuracy, but a joint decision was made between the patient and the surgeon/proceduralist to proceed at this time with the scheduled surgery/procedure as indicated on theconsent form. Objective Data Vital Signs: Vital Signs Temp Pulse Resp BP Pulse Ox O2 Del Method 97.6 F L 56 L 23 H 184/88 H 97 Room Air 04/15/22 15:00 04/15/22 15:00 04/15/22 15:00 04/15/22 15:00 04/15/22 15:00 04/15/22 15:00 Oxygen Delivery Method Room Air Weight: 215 lb 6.266 oz Body Mass Index (BMI) 30.9 Lab / Micro Data Result Diagrams: 04/15/22 12:25 04/15/22 12:25 Labs: Laboratory Results - last 24 hr 04/15/22 12:25: WBC 7.1, RBC 4.62, Hgb 13.8, Hct 40.6, MCV 87.9, MCH 29.9, MCHC 34.0, RDW Std Deviation 42.2, RDW Coeff of Maday 13.1, Plt Count 187, MPV 8.9, Immature Gran % (Auto) 0.400, Neut % (Auto) 48.2, Lymph % (Auto) 38.1, Pettis % (Auto) 10.5 H, Eos % (Auto) 2.2, Baso % (Auto) 0.6, Absolute Neuts (auto) 3.4, Absolute Lymphs (auto) 2.72, Nucleated RBC % 0 04/15/22 12:25: Sodium 137, Potassium 3.9, Chloride 104, Carbon Dioxide 26.0, Anion Gap 7, BUN 21 H, Creatinine 0.76, Estim Creat Clear Calc 59.82, Est GFR (MDRD) Af Amer 127, Est GFR (MDRD) Non-Af 105, BUN/Creatinine Ratio 27.7 H, Glucose 113 H, Calcium 10.3 H, Troponin I High Sens 2134 H* 04/15/22 12:25: Phosphorus 2.6, Magnesium 2.1 04/15/22 12:25: PT 13.6, INR 1.1, APTT 33.4 04/15/22 15:14: Troponin I High Sens 3350 H* Rhythm Strip Rhythm Strip: Sinus Rhythm Rate: 74 Ectopy: None Cardiology Labs/Tests 04/15/22 12:25: WBC 7.1, RBC 4.62, Hgb 13.8, Hct 40.6, MCV 87.9, MCH 29.9, MCHC 34.0, Plt Count 187, MPV 8.9, Immature Gran % (Auto) 0.400, Neut % (Auto) 48.2, Lymph % (Auto) 38.1, Pettis % (Auto) 10.5 H, Eos % (Auto) 2.2, Baso % (Auto) 0.6, Absolute Neuts (auto) 3.4, Nucleated RBC % 0 04/15/22 12:25: Sodium 137, Potassium 3.9, Chloride 104, Carbon Dioxide 26.0, Anion Gap 7, BUN 21 H, Creatinine 0.76, Est GFR (MDRD) Af Amer 127, Est GFR (MDRD) Non-Af 105, BUN/Creatinine Ratio 27.7 H, Glucose 113 H, Calcium 10.3 H 04/15/22 12:25: Phosphorus 2.6, Magnesium 2.1 04/15/22 12:25: PT 13.6, INR 1.1, APTT 33.4 Rhythm: Sinus rhythm EKG: As noted above Radiography Diagnostic Testing: Radiology Impression Chest X-Ray 04/15/22 12:57 IMPRESSION: No radiographic evidence of acute cardiopulmonary disease. Electronically Signed: Destiny Luo MD at 13:15 EST , 04/15/222016 <Electronically signed by Garett Crockett MD> Cosigner Signature (if applicable): CC: Dr. Shira Brady MD; Dr. Garett Crockett MD~ Signed [facility] Work Phone: 1([phone]) 644-145303-08-2023 History and physical note Author Dr. Gallardo [facility] April 15, 2022 3:59pm Note Date/Time April 15, 2022 2:57 pm [facility] Medical Records Department [address] [place] [address] H&P Exam - Hospitalist 04/15/22 1349 MR#: [id number] Acct: [id number] Name: OLGA LINDSEY Rep #:[id number] : 1940 82 From: Lai Johnson PCP: Dr. Shira Brady MD Status:ADM IN Location: [facility] [id number] HPI - General General Date of Admission: 04/15/22 Date of Service: 04/15/22 Chief Complaint: Anginal quality chest pain for 2 weeks along with shortness of breath. HPI Narrative OLGA LINDSEY, is a 82 M who presents came to ED for exertional chest pain along with shortness of breath for 2 weeks. The patient is states that he feels my chest is caving in, is squeezing sensations/heavy weight put on the chest when he starts doing usual house chores like taking horses out or walking. He stateswhen he tries to do his usual work he has to stop because he cannot breathe and then chest pressure starts about 4-5/10 intensity. Recently has to sit down andrest for 3 times while doing his usual house chores as compared to before when he used to do without any problem, shortness of breath or chest pain. Chest pressure radiates to both arms and the hands feels numb or heavy. After resting, it takes about 5 to 10 minutes for chest pressures or shortness of breath to go away. He does not have sublingual nitro pill. 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 He denies passing out/syncope or diaphoresis. In ED, twelve-lead EKG was done which shows normal sinus rhythm, LVH 74 bpm, nonspecific ST-T changes, QTc 406 ms. Previous EKG R 01/13/2016 and similar withLVH at 60 bpm. First troponin done in the ER is very high therefore being admitted with a diagnosis of non-STEMI. Patient already had 324 mg aspirin and started on heparin drip. Patient blood pressure is also high in ED. Social history: Former smoker. Family history: His brother had minor heart attack in his cardiac stent. His parents both have but they did not have heart disease. [facility] Medical History Back problem Brainstem tumor Hearing problem Hyperlipemia Hypertension Trigeminal nerve disease Home Medications amlodipine 5 mg tablet 5 mg PO DAILY #90 tabs 01/14/21 [Rx Last Taken Unknown] potassium chloride 10 mEq tablet,extended release 10 meq PO BID #180 tabs 01/14/21 [Rx Last Taken Unknown] carbamazepine 200 mg tablet 200 mg PO TID #270 tabs 01/12/22 [Rx Last Taken Unknown] hydrochlorothiazide 25 mg tablet 25 mg PO DAILY #90 tabs 01/12/22 [Rx Last Taken Unknown] levothyroxine 25 mcg tablet 25 mcg PO DAILY #90 tabs 01/12/22 [Rx Last Taken Unknown] lisinopril 40 mg tablet 40 mg PO DAILY #90 tabs 01/12/22 [Rx Last Taken Unknown] lovastatin 20 mg tablet 20 mg PO QPM #90 tabs 01/12/22 [Rx Last Taken Unknown] Allergy/AdvReac Type Severity Reaction Status Date / Time No Known Allergies Allergy Verified 09/17/21 13:27 Surgical History History of prostate surgery Hx of skin graft Social History Smoking Status: Former smoker how long ago did patient quit smokin02/08/1969 alcohol intake: never substance use type: does not use what type of physical activity do you participate in: none ROS ROS Narrative Constitutional: Reports fatigue and weakness while doing usual work as describedin HPI. HEENT: Reports systems reviewed and no addt'l complaints, except as documented Respiratory/Chest: As described in HPI Gastrointestinal: Denies coffee ground emesis, hematemesis or vomiting Genitourinary: Denies burning urination or new urinary tract symptoms Musculoskeletal: Denies joint pain and limited range of motion Neurologic: Trigeminal neuralgia on carbamazepine. 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 No rash Endocrinology: Reports systems reviewed and no addt'l complaints, except as documented Hematologic/Lymphatic: Reports systems reviewed and no addt'l complaints, exceptas documented Rest 14 ROS are negative except as mentioned in HPI Vital Signs Vital Signs Vital Signs: 04/15/22 12:20 04/15/22 12:27 04/15/22 12:36 Temperature 97.6 F L 97.6 F L Temperature Source Temporal Temporal Pulse Rate 74 74 Respiratory Rate 14 14 Respiratory Effort Short of Breath Blood Pressure 182/86 H 182/86 H Blood Pressure Mean 118 118 Pulse Ox 98 98 Oxygen Delivery Method Room Air Room Air 04/15/22 12:46 Temperature Temperature Source Pulse Rate Respiratory Rate Respiratory Effort Blood Pressure Blood Pressure Mean Pulse Ox Oxygen Delivery Method Room Air Weight Weight: 222 lb 14.197 oz Body Mass Index (BMI) 31.9 Physical Exam Narrative General: Alert, Oriented x3, Cooperative HEENT: Hard of hearing bilateral. Atraumatic, PERRLA, EOMI, Normocephalic Oral: Oral mucosa moist. No Gingival or Mucosal Lesions/ Ulcerations Neck: Supple, No JVD, Negative Carotid Bruits Lungs: Air entry diminished in bilateral lung bases. No crepitation/rhonchi Cardiovascular: Regular rate, Regular Rhythm, Normal S1, Normal S2, soft systolic murmur right second ICS, and LLSB feels like click. Abdomen: Bowel Sounds Present, Soft, Non Tender, Non-Distended : No renal angle tenderness. No suprapubic tenderness. Extremities: No edema, Capillary Refill Less than 3 Seconds Skin: No rashes, No breakdown Musculoskeletal: No Tenderness to Palpation of Joints or Extremities, muscle strength 5/5 at hip and knee joints. Neurological: Cranial nerves II-XII grossly intact, DTR 2+/4 and Symmetrical, Neuro grossly intact Psych/Mental Status: Normal Affect, Appropriate. Results Lab / Micro Data Result Diagrams: 04/15/22 12:25 04/15/22 12:25 Labs: Laboratory Results - last 24 hr 04/15/22 12:25: WBC 7.1, RBC 4.62, Hgb 13.8, Hct 40.6, MCV 87.9, MCH 29.9, MCHC 34.0, RDW Std Deviation 42.2, RDW Coeff of Maday 13.1, Plt Count 187, MPV 8.9, Immature Gran % (Auto) 0.400, Neut % (Auto) 48.2, Lymph % (Auto) 38.1, Pettis % (Auto) 10.5 H, Eos % (Auto) 2.2, Baso % (Auto) 0.6, Absolute Neuts (auto) 3.4, Absolute Lymphs (auto) 2.72, Nucleated RBC % 0 04/15/22 12:25: Sodium 137, Potassium 3.9, Chloride 104, Carbon Dioxide 26.0, Anion Gap 7, BUN 21 H, Creatinine 0.76, Estim Creat Clear Calc 59.82, Est GFR (MDRD) Af Amer 127, Est GFR (MDRD) Non-Af 105, BUN/Creatinine Ratio 27.7 H, Glucose 113 H, Calcium 10.3 H, Troponin I High Sens 2134 H* Rhythm Strip Rhythm Strip: Sinus Rhythm Rate: 74 Ectopy: None Radiology Impression Chest X-Ray 04/15/22 12:57 IMPRESSION: No radiographic evidence of acute cardiopulmonary disease. Electronically Signed: Destiny Luo MD at 13:15 EST , Assessment & Plan Assessment/Plan (1) Non-ST elevated myocardial infarction: PLAN: Plan This is a 82-year-old gentleman is being admitted for 2 weeks history of exertional chest pain and dyspnea, shortness of breath and lab consistent with non-STEMI. 1. Unstable angina/non-STEMI: Patient is being admitted in PCU. Twelve-lead EKG initially reviewed does not show acute change. Troponin is high to 134. Patient is started on IV heparin drip. Started on carvedilol, high intensity statin and aspirin. Serial cardiac enzymes and EKG. Front Desk Representative is consulted. 2D echo is ordered. Patient will need LHC. 2. Accelerated essential hypertension with LVH changes on EKG: Patient BP was high 182/86 in ED. HCTZ 25 mg ordered, blood pressure is better 155/77. Continue home antihypertensive medications, lisinopril, amlodipine and HCTZ. Patient also had potassium supplement. 3. Trigeminal neuralgia: Patient is on carbamazepine 200 mg 3 times daily; continued. 4. Dyslipidemia: Hold lovastatin. Fasting profile tomorrow AM. Started on atorvastatin. 5. Other comorbidities include bilateral hearing impaired, bilateral CTS, chronic back pain and history of prostate surgery: Follow-up with PCP. Patient does not have any acute issues regarding this diagnoses. VTE prophylaxis: Moderate to high risk. Patient is on IV heparin drip. Living will/advanced directive/end of life care: Patient does not have living will or advanced directive. His is next of kin but she is on wheelchair. Her daughter also lives in 1 mile distance. After discussion of benefits/risks procedures involved with full code, DNR CC arrest and DNR CC, the patient optedfor full code. Patient does want artificial life support including intubation, tube feed, ventilator and/chest compression, central venous catheter, vasopressor and DC shock if needed Total time spent in [id number] encounter in discussion of advanced directive 17 minutes. Laboratory Results 04/15/22 12:25: WBC 7.1, RBC 4.62, Hgb 13.8, Hct 40.6, MCV 87.9, MCH 29.9, MCHC 34.0, RDW Std Deviation 42.2, RDW Coeff of Maday 13.1, Plt Count 187, MPV 8.9, Immature Gran % (Auto) 0.400, Neut % (Auto) 48.2, Lymph % (Auto) 38.1, Pettis % (Auto) 10.5 H, Eos % (Auto) 2.2, Baso % (Auto) 0.6, Absolute Neuts (auto) 3.4, Absolute Lymphs (auto) 2.72, Nucleated RBC % 0 04/15/22 12:25: Sodium 137, Potassium 3.9, Chloride 104, Carbon Dioxide 26.0, Anion Gap 7, BUN 21 H, Creatinine 0.76, Estim Creat Clear Calc 59.82, Est GFR (MDRD) Af Amer 127, Est GFR (MDRD) Non-Af 105, BUN/Creatinine Ratio 27.7 H, Glucose 113 H, Calcium 10.3 H, Troponin I High Sens 2134 H* 04/15/22 12:25: Phosphorus 2.6, Magnesium 2.1 04/15/22 12:25: PT 13.6, INR 1.1, APTT 33.4 Charges/Coding Visit Charges Inpatient E&M: 77237 Init Hosp L3 Procedures Hospitalists Procedures: 23436 Advncd Care Plan 30 Min 04/15/22 1458 <Electronically signed by Lai Gallardo MD> Cosigner Signature (if applicable): CC: Dr. Shira Brady MD; Dr. Lai Gallardo MD~ Signed ADDENDUM by Dr. Lai Gallardo MD on 04/15/22 at 1551 Addendum Chest x-ray is individually reviewed and does not show any acute abnormality. 04/15/22 1551<Electronically signed by Lai Gallardo MD> Cosigner Signature (if applicable): cc: Dr. Shira Brady MD; Dr. Lai Gallardo MD ~* Signed ADDENDUM by Dr. Lai Gallardo MD on 04/15/22 at 1559 Addendum MANOJ risk score 4. Although classified as moderate risk but patient meets criteria of NSTEMI therefore MANOJ risk stratification is not good for him. Cardiac cath probably tomorrow AM. Discussed with the nurses director. Continue above medications. Coreg dose decreased to 3.125 mg p.o. twice daily as patientheart rate is in 50s. 04/15/22 155<Electronically signed by Lai Gallardo MD> Cosigner Signature (if applicable): cc: Dr. Shira Brady MD; Dr. Lai Gallardo MD ~* Signed [facility] Work Phone: 1(638) 504-703203-08-[address] Mccabe [facility] April 15, 2022 3:35pm Note Date/Time April 15, 2022 12:5 1pm [facility] Medical Records Department [address] [place] [address] Emergency Department Summary 04/15/22 MR#: [id number] Acct: [id number] Name: OLGA LINDSEY Rep #:[id number] : 1940 82 From: Luis Miguel Mccabe MD PCP: Dr. Shira Brady MD Status:ADM IN Location: [address] History of Present Illness Chief Complaint: Chest Pain Informant: patient Onset/Context/Timing Onset: Weeks Activity at onset: gradual Timing: Intermittent Quality: Positive for Heaviness, Pain, Pressure and Tightness Location: Substernal Current Severity: Gone Maximum Severity: Moderate Worsened By: Exertion Relieved By: Rest Associated Symptoms: Positive for Dyspnea Narrative Narrative: 82-year-old male history of hypertension. He has had no prior cardiac history has never had a heart cath he does not remember a prior stress test. States thelast 2 weeks he has had exertional chest pain and exertional dyspnea. Still hasthey have horses at his home when he goes out to do chores with the horses it typically takes him 45 minutes. In the past he could do that without any problem. He says now he has to sit down or rest 3 times to be able to get this done. He said once he rests 10 minutes his chest pain resolves. Also said whenhe takes his dogs out for a walk he has to rest several times while walking to have the chest pain go away. He says coming on more frequently and with more intensity over the last week. Associated dyspnea. No nausea or diaphoresis. Currently symptom-free. Also states has been radiating to his arms. Prior Similar Symptoms: No Recent Illness/Hospitalization: No CVD Risk Factors: Positive for Hypertension PE Risk Factors: Negative for Recent Travel/Surgery, Recent Immobilization, Prior DVT or PE, Cancer or OCP + Smoking + >/=35 TAD Risk Factors: Negative for Marfan's Syndrome [facility] Medical History Back problem Brainstem tumor Hearing problem Hyperlipemia Hypertension Trigeminal nerve disease Home Medications amlodipine 5 mg tablet 5 mg PO DAILY #90 tabs 01/14/21 [Rx Last Taken Unknown] potassium chloride 10 mEq tablet,extended release 10 meq PO BID #180 tabs 01/14/21 [Rx Last Taken Unknown] carbamazepine 200 mg tablet 200 mg PO TID #270 tabs 01/12/22 [Rx Last Taken Unknown] hydrochlorothiazide 25 mg tablet 25 mg PO DAILY #90 tabs 01/12/22 [Rx Last Taken Unknown] levothyroxine 25 mcg tablet 25 mcg PO DAILY #90 tabs 01/12/22 [Rx Last Taken Unknown] lisinopril 40 mg tablet 40 mg PO DAILY #90 tabs 01/12/22 [Rx Last Taken Unknown] lovastatin 20 mg tablet 20 mg PO QPM #90 tabs 01/12/22 [Rx Last Taken Unknown] Allergy/AdvReac Type Severity Reaction Status Date / Time No Known Allergies Allergy Verified 09/17/21 13:27 Surgical History History of prostate surgery Hx of skin graft Social History Smoking Status: Former smoker how long ago did patient quit smokin02/08/1969 alcohol intake: never substance use type: does not use what type of physical activity do you participate in: none ROS ROS ED ROS Narrative Exertional chest pain. Exertional dyspnea. Review of Systems ROS Unobtainable: Denies due to encephalopathy Constitutional Constitutional ED: Denies chills or fever(s) Eyes Eyes: Reports none ENT ENT ED: Denies ear pain or rhinorrhea Cardiovascular Cardiovascular: Reports as per HPI and chest pain; Denies palpitations or racingheartbeat Respiratory/Chest Respiratory/Chest: Reports dyspnea and dyspnea on exertion; Denies cough Gastrointestinal Gastrointestinal: Denies abdominal pain, constipation, diarrhea, melena, nausea or vomiting Genitourinary Genitourinary ED: Denies dysuria or hematuria Musculoskeletal Musculoskeletal: Denies arthralgias Integumentary Denies abscess or Abrasions Neurologic Neurologic: Denies headache(s) Psychiatric Psychiatric: Denies anxiety Endocrine Endocrinology: Denies cold intolerance Hematologic/Lymphatic Hematologic/Lymphatic: Denies easy bleeding or easy bruising Allergic/Immunologic Allergic/Immunologic ED: Denies mouth swelling or tongue swelling EXAM Physical Exam Narrative Exam Narrative: Well-appearing 82-year-old male. Vital signs are stable afebrile. Initial blood pressure 182/86. Pulse ox 90% on room air no hypoxia. He is currently inno distress. Currently is not having any chest pain or shortness of breath. H EENT exam unremarkable. Neck nontender no JVD. Lungs clear to auscultation bilaterally. Heart regular rate and rhythm rate about 75 no appreciable murmur. Chest were nontender. Abdomen soft nontender. Moving all 4 extremities. Calves are nontender that edema or cords. Neurologically is awake and alert with no focal motor deficits. Const Vital Signs: 04/15/22 12:20 04/15/22 12:27 04/15/22 12:36 Temperature 97.6 F L 97.6 F L Temperature Source Temporal Temporal Pulse Rate 74 74 Respiratory Rate 14 14 Respiratory Effort Short of Breath Blood Pressure 182/86 H 182/86 H Blood Pressure Mean 118 118 Pulse Ox 98 98 Oxygen Delivery Method Room Air Room Air 04/15/22 12:46 Temperature Temperature Source Pulse Rate Respiratory Rate Respiratory Effort Blood Pressure Blood Pressure Mean Pulse Ox Oxygen Delivery Method Room Air Positive well nourished, well developed and obese; Negative for cachectic, contractures or unkempt General Appearance ED: well developed and NAD; Negative for unkempt, cachectic, contractures or pallor Nutritional Appearance: obese; Negative for cachectic HEENT Reports moist mucous membranes normocephalic; Negative for atraumatic or trauma Eyes PERRL and EOMs intact bilaterally General Eye ED: Negative for pale conjunctiva or scleral icterus Neck no lymphadenopathy, supple and no JVD General: Negative for tenderness Chest Wall inspection of chest normal and palpation of chest normal Chest: Negative for tenderness Resp normal respiratory effort and clear to auscultation bilaterally Effort and Inspection: Negative for respiratory distress Auscultation: Negative for rales, rhonchi or wheezes Cardio regular rate, regular rhythm, S1 normal heart sound, S2 normal heart sound and no murmurs Rate: Negative for bradycardia or tachycardic Rhythm: Negative for abnormal rhythm Peripheral Pulses: pulses 2+ throughout GI normal to inspection, nondistended, normoactive bowel sounds, soft to palpation,non-tender, non-distended and no masses Auscultation: Negative for hyperactive bowel sounds Palpation: Negative for splenomegaly Back/Spine no CVA tenderness and no thoracic nor lumbar tenderness General Back: Negative for CVA tenderness Cervical Spine: Negative for cervical spine tenderness Extremity normal to inspection General Extremety ED: Negative for edema or pulses abnormal General Extremity: Negative for edema or pulses abnormal Neuro oriented x3 and CN's II-XII intact bilaterally Sensorium / Orientation: awake, alert, oriented to person and oriented to place;Negative for oriented to time, confused, lethargic or stuporous Motor Exam: strength 5/5 throughout Psych mental status grossly normal Appearance: Negative for unkempt Attitude: No agitated Mood & Affect: Negative for depressed, anxious or tearful Skin no rashes or lesions noted and no wounds General Skin Exam: Negative for jaundice or pallor Rashes: No rashes noted Trauma: Negative for abrasion or laceration Heart Score History: Highly Suspicious ECG: Normal Risk Factors: 1 or 2 Risk Factors Troponin: </= Normal Limit Score: 3 MDM MDM MDM Narrative Medical decision making narrative: 82-year-old male with new onset exertional chest pain and dyspnea for the last 2weeks that is highly suspicious for unstable angina. Patient has a normal exam. Currently symptom-free. He will undergo cardiac work-up. Be given aspirin. Justa spoke to cardiology because I think this patient most likely will need aheart catheterization. Once the labs return I will speak to the hospitalist about admission to the PCU. Repeat exam patient doing well at 1:53 PM. He will be admitted for non-ST elevation WI and unstable angina. I have spoken to general cardiology on-call for last 2 days, interventional cardiology and the hospitalist. Hospitalist will admit to the PCU. Patient will receive heparin bolus and drip. Hospitalist will consult cardiology on admission. I discussed all test results with the patient. He understands the need for admission and further evaluation. History & Record Review Discussion w/independent historian: Patient Lab Data Attestation: I reviewed the patient's lab results. Lab results narrative: CBC shows a white count of 7. H&H of 13.8 and 40. Platelets 187,000. Electrolytes are unremarkable. Gap is 7. BUN 21 creatinine 0.7. Glucose of 113. Troponin elevated at 2134. Labs: Laboratory Results - last 24 hr 04/15/22 04/15/22 12:25 12:25 WBC 7.1 RBC 4.62 Hgb 13.8 Hct 40.6 MCV 87.9 MCH 29.9 MCHC 34.0 RDW Std Deviation 42.2 RDW Coeff of Maday 13.1 Plt Count 187 MPV 8.9 Immature Gran % (Auto) 0.400 Neut % (Auto) 48.2 Lymph % (Auto) 38.1 Pettis % (Auto) 10.5 H Eos % (Auto) 2.2 Baso % (Auto) 0.6 Absolute Neuts (auto) 3.4 Absolute Lymphs (auto) 2.72 Nucleated RBC % 0 Sodium 137 Potassium 3.9 Chloride 104 Carbon Dioxide 26.0 Anion Gap 7 BUN 21 H Creatinine 0.76 Estim Creat Clear Calc 59.82 Est GFR (MDRD) Af Amer 127 Est GFR (MDRD) Non-Af 105 BUN/Creatinine Ratio 27.7 H Glucose 113 H Calcium 10.3 H Troponin I High Sens 2134 H* Radiography Chest X-Ray - ED: 1 View, Read by ED Physician, Read by Radiologist, Heart, Mediastinum, Bony Structures, No Acute Disease and Chronic Changes Diagnostic Testing: Clinical Impression(s) from Imaging Studies Chest X-Ray 04/15/22 12:57 IMPRESSION: No radiographic evidence of acute cardiopulmonary disease. Electronically Signed: Destiny Luo MD at 13:15 EST , Chest x-ray, portable, single view shows no acute abnormality. Interpreted bothby myself and the radiologist. Rhythm Strip Rhythm Strip: Sinus Rhythm Rate: 74 Ectopy: None EKG Initial EKG: Attestation: I personally reviewed and interpreted this EKG as follows: Interpretation: Sinus Rhythm and No Acute Injury Pattern Comments: Normal sinus rhythm rate of 74. No signs of acute WI. This he does have 2-3 signs consistent with LVH. Unchanged from prior EKG from January2016. Prior EKG tracings: available for review Prior: Unchanged Management Discussion w/another healthcare provider: Hospitalist and Gunner'S Mate Critical Care Time Critical Care Time: Yes Critical care time (excluding procedures): 30-74 minutes, Including time spent:,Discussing w/Patient &/or Family/Security Supervisor, Discussing w/Consultants, ArrangingAdmission or Transfer, Performing Direct Patient Care at Bedside and - (33 min) Discharge Plan Triage Chief Complaint: Chest Pain ED Provider: Luis Miguel Mccabe Dx/Rx/DC Orders Clinical Impression: Chest pain, Non-ST elevated myocardial infarction, Unstable angina Prescriptions: No Action amlodipine 5 mg tablet 5 mg PO DAILY Qty: 90 3RF potassium chloride 10 mEq tablet extended release 10 meq PO BID Qty: 180 3RF carbamazepine 200 mg tablet 200 mg PO TID Qty: 270 3RF hydrochlorothiazide 25 mg tablet 25 mg PO DAILY Qty: 90 3RF levothyroxine 25 mcg tablet 25 mcg PO DAILY Qty: 90 3RF Rx Instructions: Take 1 tab daily, each morning on an empty stomach. Do not eat or drink for 20 minutes after taking medication. Take medication at same time every day. lisinopril 40 mg tablet 40 mg PO DAILY Qty: 90 3RF lovastatin 20 mg tablet 20 mg PO QPM Qty: 90 3RF Primary Care Provider: Shira Brady Referrals: Shira Brady MD [Primary Care Provider] - Disposition Disposition: Acute Care Hospital [facility] What to do if you have Problems For any increased pain, shortness of breath, bleeding, nausea or vomiting, chestpain, or any unexpected problems, contact your Primary Care Provider. Call [facility] ([phone]) or report to the closest Emergency Room. Call 911 if necessary. 04/15/22 8435 <Electronically signed by Luis Miguel Mccabe MD> Cosigner Signature (if applicable): CC: Dr. Shira Brady MD ~ Signed [facility] Work Phone: [phone]) 156-288302-15-2016 History of Past illness Narrative* Problem Noted Date Resolved Date Closed nondisplaced fracture of styloid process of right ulna 03/25/2015 10/24/2015 documented as of this encounter (statuses as of 04/17/2022) [facility] April 01, 2023 4:42am Note Date/Time April 01, 2023 4:43am [facility] Medical Records Department [address] [place] [address] Emergency Department Summary 04/01/23 MR#: [id number] Acct: [id number] Name: OLGA LINDSEY Rep #:[id number] : 1940 83 From: Rayray Wiggins DO PCP: Dr. Shira Brady MD Status:REG ER Location: ED HPI History of Present Illness Chief Complaint: Fall Informant: patient and EMS Narrative Narrative: Patient is an 83-year-old male with past medical history of hypertension hyperlipidemia chronic A-fib currently on Eliquis as well as coronary artery disease with three-vessel bypass roughly 1 year ago on Plavix. He states that he was working out in the [employer] and around 8 PM he was trying to jump a wheelbarrow when he lost his balance and fell landing on his right side. He denies striking his head or any loss of consciousness. He states he was able to get up and make it into the house. He states however that as time passed his pain continued to worsen and he could not sleep secondary to it and therefore EMS was called [facility] Medical History Atherosclerotic heart disease of [place] coronary artery without angina pectoris Back problem Brainstem tumor Hearing problem Hyperlipemia Hypertension Non-ST elevated myocardial infarction Trigeminal nerve disease Unstable angina Home Medications albuterol sulfate 90 mcg/actuation aerosol inhaler (Ventolin HFA) 1 - 2 puff inhalation Q4H PRN PRN Wheezing #1 inh 05/03/22 [Rx Last Taken Unknown] acetaminophen 325 mg tablet (Tylenol) 500 mg PO Q6H PRN Pain 06/17/22 [History Last Taken Unknown] carbamazepine 200 mg tablet (Tegretol) 200 mg PO TID #270 tabs 06/17/22 [Rx Last Taken Unknown] clopidogrel 75 mg tablet (Plavix) 75 mg PO 06/17/22 [History Last Taken Unknown] lisinopril 20 mg tablet 20 mg PO DAILY #90 tabs 10/02/22 [Rx Last Taken Unknown] atorvastatin 40 mg tablet (Lipitor) 40 mg PO DAILY #90 tabs 10/29/22 [Rx Last Taken Unknown] metoprolol tartrate 50 mg tablet 50 mg PO BID #180 tabs 11/19/22 [Rx Last Taken Unknown] diltiazem HCl 240 mg capsule,extended release 24 hr 240 mg PO DAILY #90 caps 12/16/22 [Rx Last Taken Unknown] apixaban 5 mg tablet (Eliquis) 5 mg PO BID #180 tabs 01/29/23 [Rx Last Taken Unknown] levothyroxine 50 mcg tablet 50 mcg PO DAILY #90 tabs 02/04/23 [Rx Last Taken Unknown] Allergy/AdvReac Type Severity Reaction Status Date / Time No Known Allergies Allergy Verified 04/01/23 01:18 Surgical History History of prostate surgery Hx of skin graft Hx of tonsillectomy S/P CABG x 3 (~04/20/22) Social History (Reviewed 01/29/23 @ 11:51 by 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 Law 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, 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-C) Smoking Status: Former smoker how long ago did patient quit smokin02/08/1969 alcohol intake: never substance use type: does not use what type of physical activity do you participate in: none ROS ROS ED Constitutional Constitutional ED: Denies chills or fever(s) Eyes Eyes: Denies change in vision ENT ENT ED: Denies sore throat Cardiovascular Cardiovascular: Reports palpitations; Denies chest pain or racing heartbeat Respiratory/Chest Respiratory/Chest: Denies cough or dyspnea Gastrointestinal Gastrointestinal: Reports nausea; Denies abdominal pain, diarrhea or vomiting Genitourinary Genitourinary ED: Denies dysuria or hematuria Musculoskeletal Musculoskeletal: Reports back pain; Denies neck pain Integumentary Reports Abrasions Neurologic Neurologic: Denies headache(s) Hematologic/Lymphatic Hematologic/Lymphatic: Reports easy bleeding and easy bruising EXAM Physical Exam Const Vital Signs: 04/01/23 00:50 04/01/23 00:57 04/01/23 01:03 Temperature 97.8 F Temperature Source Temporal Pulse Rate 90 Respiratory Rate 22 H Respiratory Effort Normal Non-Labored Respiratory Depth Shallow Blood Pressure 222/108 H 222/116 H Blood Pressure Mean 146 151 Pulse Ox 95 Oxygen Delivery Method Room Air Room Air 04/01/23 03:00 Temperature Temperature Source Pulse Rate Respiratory Rate Respiratory Effort Respiratory Depth Blood Pressure 155/72 H Blood Pressure Mean 99 Pulse Ox Oxygen Delivery Method Positive well nourished and well developed General Appearance ED: well developed HEENT HEENT Narrative: Normocephalic atraumatic Eyes PERRL and EOMs intact bilaterally Eyes Narrative: No hyphema noted Neck supple Neck Narrative: No bony deformity or step-off of the cervical spine no midline pain with palpation Patient is able to move his neck in all directions without pain Chest Wall Chest Narrative: Patient has soft tissue swelling with ecchymosis along the right posterior lateral aspect of his ribs/back rib regions 8-10. There is severe reproducible pain at the site but no obvious crepitance palpated. Resp normal respiratory effort and clear to auscultation bilaterally Resp Narrative: Breath sounds are diminished throughout with faint crackles noted in the right lower base but no nasal flaring retractions tachypnea or accessory muscle use Cardio regular rate Rate: other Other Details: Irregularly irregular rhythm with regular rate consistent with past medical history of chronic atrial fibrillation GI normal to inspection, nondistended, normoactive bowel sounds, non-tender and non-distended GI Narrative: Soft nontender nondistended with normal active bowel sounds no voluntary guarding or rigidity or pulsatile mass Auscultation: normoactive bowel sounds Palpation: soft Back/Spine Back/Spine Narrative: No bony deformity or step-off of the thoracic or lumbar spine no midline pain with palpation Extremity normal to inspection Extremity Narrative: Pelvis is stable there is no shortening or external rotation of either lower extremity Patient is able to move all extremities without difficulty Neuro oriented x3, CN's II-XII intact bilaterally and no sensory deficits noted Sensorium / Orientation: alert Motor Exam: strength 5/5 throughout Psych mental status grossly normal Skin Skin Narrative: Soft tissue swelling with ecchymosis to the right posterior lateral back as documented above otherwise no other areas of abrasions or ecchymosis MDM MDM MDM Narrative Medical decision making narrative: Patient arrived to the ER hypertensive but has a past medical history of this and it is unsure if he took his nighttime medication and he is in pain. He reported mechanical fall so there is no need for cardiac or syncope workup. However with bruising swelling and pain along the right back/rib cage there is concern for rib fracture versus pneumothorax versus hemothorax versus pulmonary contusion versus underlying head trauma such as subdural or subarachnoid hemorrhage. CTs of the head and chest were obtained. Head CT revealed no acute bleed or signs of skull fracture but chest CT did confirm fractures to the rightseventh eighth and ninth ribs with hemothorax. Based on the fact he had a trauma leading to multiple rib fractures with blood within the lungs and is on ablood thinner it was felt he should be transferred to higher level of care/trauma center. After the rib fractures with hemothorax was found basic blood work was ordered to ensure he is not anemic and imaging of the cervical spine as well as abdomen and pelvis were obtained to rule out any other signs oftrauma or active bleeding. A FAST exam was performed at bedside upon arrival and there was no obvious signs of internal bleeding on that exam. The patient requested transfer to [facility] as he has been there in the past for his bypass surgery. They were contacted and they do agree to except the patient at this time. We discussed providing DDAVP or Andexxa but at this time it has been multiple hours since his last Eliquis dose he is overall hemodynamically stable and not in any distress and therefore was decided to holdoff at this point. As the patient is at high risk for potential decompensation based on his hemothorax and blood thinner use he will be transferred to [facility] by mobile ICU. This plan of care was discussed with the patient he is agreeable to it. He was given medication for his hypertension but overallremained hemodynamically stable for his entire ER stay History & Record Review Discussion w/independent historian: Patient Lab Data Attestation: I reviewed the patient's lab results. Labs: Laboratory Results - last 24 hr 04/01/23 03:15 WBC 8.8 RBC 4.02 L Hgb 11.6 L Hct 36.8 L MCV 91.5 MCH 28.9 MCHC 31.5 L RDW Std Deviation 49.1 H RDW Coeff of [place] 14.6 Plt Count 167 MPV 9.2 Immature Gran % (Auto) 0.500 Neut % (Auto) 78.9 H Lymph % (Auto) 11.5 L Pettis % (Auto) 8.4 Eos % (Auto) 0.2 Baso % (Auto) 0.5 Absolute Neuts (auto) 7.0 Absolute Lymphs (auto) 1.01 Nucleated RBC % 0 PT 17.7 H INR 1.4 APTT 33.3 Sodium 139 Potassium 3.9 Chloride 108 H Carbon Dioxide 27.0 Anion Gap 4 L BUN 20 H Creatinine 0.71 Estim Creat Clear Calc 73.51 Est GFR (MDRD) Af Amer 136 Est GFR (MDRD) Non-Af 113 BUN/Creatinine Ratio 28.1 H Glucose 161 H Calcium 9.9 Radiography Diagnostic Testing: Clinical Impression(s) from Imaging Studies Brain CT 04/01/23 01:14 IMPRESSION: 1. Chronic involutional changes of the brain. 2. 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 3. No CT evidence of acute intracranial hemorrhage. Electronically Signed: Vicki Mckeon MD at 3:24 EST , Chest CT 04/01/23 01:14 IMPRESSION: 1. Acute displaced right lateral seventh, eighth and ninth rib fractures. 2. Right-sided hemothorax with right lower lobe pulmonary hemorrhage and possible contusion. 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, Accidental fall Prescriptions: No Action albuterol sulfate [Ventolin HFA] 90 mcg/actuation HFA aerosol inhaler 1 - 2 puff inhalation Q4H PRN PRN (Reason: Wheezing) Qty: 1 0RF acetaminophen [Tylenol] 325 mg Tablet 500 mg PO Q6H PRN (Reason: Pain) clopidogrel [Plavix] 75 mg Tablet 75 mg PO carbamazepine [Tegretol] 200 mg tablet 200 mg PO TID Qty: 270 3RF lisinopril 20 mg tablet 20 mg PO DAILY Qty: 90 3RF atorvastatin [Lipitor] 40 mg tablet 40 mg PO DAILY Qty: 90 3RF metoprolol tartrate 50 mg tablet 50 mg PO BID Qty: 180 3RF diltiazem HCl 240 mg capsule,extended release 24hr 240 mg PO DAILY Qty: 90 3RF Eliquis 5 mg tablet 5 mg PO BID Qty: 180 4RF levothyroxine 50 mcg tablet 50 mcg PO DAILY Qty: 90 3RF Primary Care Provider: Shira Brady Referrals: Shira Brady MD [Primary Care Provider] - Disposition Disposition: Acute Care Hospital Discharge Location: [facility] What to do if you have Problems For any increased pain, shortness of breath, bleeding, nausea or vomiting, chestpain, or any unexpected problems, contact your Primary Care Provider. Call [facility] ([phone]) or report to the closest Emergency Room. Call 911 if necessary. 04/01/23 0442 <Electronically signed by Rayray Wiggins DO> Cosigner Signature (if applicable): CC: Dr. Shira Brady MD ~ Signed [facility] Work Phone: Evaluation noteNo assessment information available [facility] Work Phone: Evaluation note* Diagnosis Onset Date Resolution Status Chest pain acute Non-ST elevated myocardial infarction acute Unstable angina acute [facility] Work Phone: Evaluation note* Diagnosis Onset Date Resolution Status Chest pain acute Non-ST elevated myocardial infarction acute Unstable angina acute Hyperlipemia chronic Hypertension chronic [facility] Work Phone: Evaluation note* Diagnosis Coronary artery disease involving [place] coronary artery of [place] heart without angina pectoris- Primary NSTEMI (non-ST elevated myocardial infarction) (HCC) Acute myocardial infarction, subendocardial infarction, episode of care unspecified Coronary artery disease involving [place] coronary artery of [place] heart without angina pectoris NSTEMI (non-ST elevated myocardial infarction) ([facility]) Acute myocardial infarction, subendocardial infarction, episode of care unspecified [facility] Diagnosis Onset Date Resolution Status Chest pain resolved [facility] Work Phone: Evaluation note* Diagnosis 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 Acute blood loss anemia Acute posthemorrhagic anemia [facility] Diagnosis SOB (shortness of breath) Shortness of breath [facility] Diagnosis Onset Date Resolution Status Chest pain resolved Atherosclerotic heart diseas e of [place] coronary artery without angina pectoris acute General unsteadiness acute Hypothyroidism acute Postural lightheadedness acu te Status post aorto-coronary artery bypass graft acute [facility] Work Phone: Evaluation note* Diagnosis Onset Date Resolution Status Atrial fibrillation acute Fatigue acute Hyperlipemia acute Status post aorto-coronary artery bypass graft acute Hypertension chronic [facility] Work Phone: Evaluation note* Diagnosis Onset Date Resolution Status Hyperlipemia chronic Hypertension chronic Euthyroid sick syndrome acut e Fall acute History of chest tube placement acute History of hypothyroidism [place] deficiency acute Multiple fractures of ribs of right side acute Physical debility acute Uncontrolled hypertension [place] Action tremor chronic 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 Current use of assisted anticoagulation chronic Hypertension chronic Longstanding persistent atrial fibrillation chronic Urine retention chronic Hemothorax on right resolved [facility] Work Phone: Evaluation note* Diagnosis Closed fracture of multiple ribs of right side with routine healing Pleural effusion (right) Unspecified pleural effusion [facility] Diagnosis Closed fracture of multiple ribs of right side, initial encounter Hemothorax on right Other specified forms of effusion, except tuberculous [facility] Diagnosis Onset Date Resolution Status Hyperlipemia chronic Hypertension chronic History of hypothyroidism ac [place] Iron deficiency acute Physical debility acute Uncontrolled hypertension [place] 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 Hypertension chronic Urine retention chronic Hemothorax on right resolved History of hypothyroidism [place] History of trigeminal neuralgia acute Physical debility acute Rib fractures acute UTI (urinary tract infection) acute Hyperlipemia chronic Hypertension chronic [facility] Work Phone: Evaluation note* Diagnosis Hemothorax, traumatic, initial encounter- Primary Closed fracture of multiple ribs of right side with routine healing [facility] Diagnosis Onset Date Resolution Status Hyperlipemia chronic Hypertension chronic History of hypothyroidism ac [place] Iron deficiency acute Physical debility acute Uncontrolled hypertension [place] 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 Hypertension chronic Urine retention chronic Hemothorax on right resolved History of hypothyroidism [place] History of trigeminal neuralgia acute Physical debility acute Rib fractures acute UTI (urinary tract infection) acute Hyperlipemia chronic Hypertension chronic Left arm pain acute [facility] Work Phone: Evaluation note* Diagnosis Onset Date Resolution Status History of hypothyroidism [place] Iron deficiency acute Physical debility acute Uncontrolled hypertension ac [place] 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 Hypertension chronic Urine retention chronic Hemothorax on right resolved History of hypothyroidism [place] History of trigeminal neuralgia acute Physical debility acute Rib fractures acute UTI (urinary tract infection) acute Hyperlipemia chronic Hypertension chronic Left arm pain acute Closed head injury acute Closed right hip fracture ac [place] Fall acute Hypokalemia acute Laceration acute Laceration of right facial nerve acute [facility] Work Phone: Evaluation note* Diagnosis Onset Date Resolution Status History of hypothyroidism ac [place] Iron deficiency acute Physical debility acute Uncontrolled hypertension ac [place] 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 Hypertension chronic Urine retention chronic Hemothorax on right resolved History of hypothyroidism [place] History of trigeminal neuralgia acute Physical debility acute Rib fractures acute UTI (urinary tract infection) acute Hyperlipemia chronic Hypertension chronic Left arm pain acute Atherosclerotic heart diseas e of [place] coronary artery without angina pectoris acute Closed head injury acute Closed right hip fracture [place] Fall acute Hypokalemia acute Laceration acute Laceration of right facial nerve acute Right knee pain acute 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 [facility] Work Phone: Evaluation note* Diagnosis Closed fracture of multiple ribs of right side with routine healing Pleural effusion (right) Unspecified pleural effusion [facility] Diagnosis S/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 [facility] Diagnosis S/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 [facility] Diagnosis Onset Date Resolution Status Admit Date Hyperlipemia chronic August 03 10:59am Hypertension chronic August 03 10:59am Status post aorto-coronary artery bypass graft inactive August 03 10:59am Atrial fibrillation deleted August 03, 2024 10:59am [facility] Work Phone: Evaluation note* Diagnosis Onset Date Resolution Status Admit Date Atrial fibrillation chronic Oct2024 11:10am Hyperlipemia chronic November 11:10am Hypertension chronic November 11:10am Status post aorto-coronary artery bypass graft chronic November 11:10am [facility] Work Phone: Hospital Discharge instructions Additional Instructions Please return for any worsening of symptoms. Follow-up with PCP.[facility] Work Phone: Patient's home Plan of care note* Visit Details Visit Type -SN ABBREV SOC 1S T VISIT Discipline -Correction Problems Problem Description Start Date Status Goals [...] this visit SN Cardiac Procedure/Surge ry Disciplines: SN 05/06/2022 Active 1 goal linked to scheduled/document ed intervention 1 goal intervention scheduled/documente d in this visit SN Integumentary/W ounds Disciplines: SN 05/06/2022 Active 1 goal linked [...] seconds or with an alcohol based hand machine sizer containing at least 60% alcohol, +Clean all [...] and pain management. [facility] Visit Details [...] pillow when coughing [facility] Visit Details Visit Type -SN ABBREV SOC 2N D VISIT Discipline -Correction Problems Problem Description Start Date Status Goals [...] seconds or with an alcohol based hand machine sizer containing at least 60% alcohol, +Clean all [...] Discuss all medications you are taking, even bnfv-xmt-rscrgph medicines, with your provider and pharmacist since [...] management and nutrition. [facility]* Visit Details Visit Type -SN ROUTINE Discipline -Correction Problems Problem Description Start Date Status Goals [...] Discuss all medications you are taking, even fyio-lqg-yjxujph medicines, with your provider and pharmacist since [...] Discuss all medications you are taking, even pbdj-aty-erjnbod medicines, with your provider and pharmacist since [...] surgical care precautions. documented [facility]* Visit Details Visit Type -POOLING OPERATOR ROUTINE Discipline -Physical Therapy Problems Problem Description [...] pillow when coughing [facility] Visit Details Visit Type -POOLING OPERATOR ROUTINE Discipline -Physical Therapy Problems Problem Description [...] pillow when coughing [facility] Visit Details Visit Type -SN ROUTINE Discipline -Correction Problems Problem Description Start Date Status Goals [...] this visit SN Cardiac Procedure/Surge ry Disciplines: SN 05/06/2022 Active 1 goal linked [...] Discuss all medications you are taking, even xlpp-dht-wjmcwht medicines, with your provider and pharmacist since [...] surgical care precautions. [facility]* Visit Details Visit Type -SN ROUTINE Discipline -Correction Problems Problem Description Start Date Status Goals [...] in this visit SN Integumentary/W ounds Disciplines: SN 05/06/2022 Active 1 goal linked [...] Discuss all medications you are taking, even ijpz-hag-bhfdaba medicines, with your provider and pharmacist since [...] Discuss all medications you are taking, even qcmz-ygy-gxhgyzp medicines, with your provider and pharmacist since [...] surgical care precautions. documented [facility]* Visit Details Visit Type -POOLING OPERATOR ROUTINE Discipline -Physical Therapy Problems Problem Description [...] No LOB observed. [facility] Visit Details [...] shower/tub with indep [facility] Visit Details [...] include: verbal cues. documented [facility] this [facility]* Visit Details Visit Type -SN ROUTINE Discipline -Correction Problems Problem Description Start Date Status Goals [...] Discuss all medications you are taking, even htjp-pee-hwwfuow medicines, with your provider and pharmacist since [...] Discuss all medications you are taking, even qdgk-zos-xxgowgo medicines, with your provider and pharmacist since [...] surgical care precautions. documented [facility]* Visit Details Visit Type -SN AGENCY DC W V ISIT Discipline -Correction Problems Problem Description Start Date Status Goals [...] Discuss all medications you are taking, even dcec-zfb-rosylku medicines, with your provider and pharmacist since [...] Discuss all medications you are taking, even nztt-hri-mdfrxdf medicines, with your provider and pharmacist since [...] surgical care precautions. [facility] Author Daniela Law [facility] Note Date/Time November 17, 2024 1 1:59am [facility] [address] [place] [address] OFFICE VISIT Date of Service: 11/17/24 MR#: [id number] Acct: [id number] Name: OLGA LINDSEY Rep #: [id number] : 1940 Provider: BOWEN Law Age/Sex: 84/M Location: [facility] Status: Signed HPI HPI History of Present Illness Details: Olga Lindsey is an 84-year-old male who presents to the office today for a cardiovascular follow-up visit. Patient presented to [facility] room on 04/15/2022 with complaints of chest pain, and exertional dyspnea. Patient was admitted for non-ST elevation [place] and unstable angina. Patient underwent a cardiac catheterization on 04/16/2022 which demonstrated [place] multivessel coronary artery disease. He was then referred for coronary revascularization. He underwent CABG x3 on 04/20/[address] Prasad in situ mammary end-to-side mid LAD, vein graft ascending aorta end-to-side obtuse marginal 1, vein graft ascending aorta end-to-side posterior descending (PDA). He has a history of atrial fibrillation, hypertension, and hyperlipidemia. From a cardiac standpoint, the patient is doing well. He denies any palpitations, chest pain, pressure or heaviness. He denies SOB, Orthopnea, and PND. He does not have bleeding issues; no blood in urine, stool, or nosebleeds. He denies any decrease in energy level, myalgias, or claudication. He does acknowledge occasional bilateral ankle edema. He does not have sudden weight gain. He does have occasional lightheadedness with quick positional changes. He denies dizziness, syncopal or near syncopal episodes, and headaches. He states he monitors his blood pressures at home, and they have been trending up. 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: No Is patient in pain?: No Allergies No Known Allergies Allergy (Verified 11/17/24 11:36) Medications ?Medication ?Instructions ?Recorded ?Confirmed ?Type magnesium oxide 400 mg PO BID supplement #60 tabs 04/21/23 11/17/24 Rx acetaminophen 500 mg tablet 1,000 mg (2 x 500 mg) PO Q 8H PRN 07/10/23 11/17/24 Rx fever or pain #180 tabs ergocalciferol (vitamin D2) 1,250 1,250 mcg PO QWEEK 0 10/04/23 11/17/24 History mcg (50,000 unit) capsule nitroglycerin 0.4 mg sublingual 0.4 mg sublingual Q5-1 5M PRN chest 10/04/23 11/17/24 Rx tablet (Nitrostat) pain #25 tabs apixaban 5 mg tablet 5 mg PO BID Faxed to [facility] 06/16/24 11/17/24 Rx [facility] #180 tabs Fruits supplement PO QDAY 08/03/24 11/17/24 [facility] ferrous gluconate 324 mg (37.5 mg 324 mg PO QDAY 08/0311/17/24 History iron) tablet prevagen PO QDAY 08/03/24 11/17/24 [facility] veggies supplement PO QDAY 08/03/24 11/17/24 [facility] aspirin 81 mg tablet,delayed 81 mg PO DAILY #90 tabs 0 09/20/24 11/17/24 Rx release (Adult Low Dose Aspirin) atorvastatin 40 mg tablet (Lipitor) 40 mg PO QHS fidelia sterol #90 tabs 09/20/24 11/17/24 Rx carbamazepine 200 mg tablet 200 mg PO TID seziures #27 0 tabs 09/20/24 11/17/24 Rx (Tegretol) diltiazem HCl 240 mg 240 mg PO DAILY blood pressu re #90 09/20/24 11/17/24 Rx capsule,extended release 24 hr caps hydralazine 50 mg tablet 50 mg PO BID #180 tabs 09/2011/17/24 Rx levothyroxine 50 mcg tablet 50 mcg PO DAILY@0600 thyro id #90 09/20/24 11/17/24 Rx tabs tamsulosin 0.4 mg capsule 0.4 mg PO BID bladder #180 c aps 09/20/24 11/17/24 Rx lisinopril 10 mg tablet 10 mg PO BID #180 tabs 11/1711/17/24 Rx Ejection fraction %: 55 Have you fallen in the past year?: No PFSH Medical History (Reviewed 11/17/24 @ 11:36 by Daniela Law 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, 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-C) S/P right hip fracture 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 Colonization with drug-resistant bacteria Generalized weakness Symptomatic anemia Acute on chronic anemia Atrial fibrillation and flutter History of trigeminal neuralgia Transfusion of blood during current hospitalisation Rib fractures Hip fracture, right Right knee pain Bleeding tendency Heart attack Hearing loss, left Fall Laceration of right facial nerve Action tremor Longstanding persistent atrial fibrillation History of hypothyroidism Fall Hemothorax on right Multiple fractures of ribs of right side Atherosclerotic heart disease of [place] coronary artery without angina pectoris Unstable angina Non-ST elevated myocardial infarction Trigeminal nerve disease Brainstem tumor Hyperlipemia Back problem Hypertension Surgical History (Reviewed 11/17/24 @ 11:36 by Daniela Law 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, 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-C) History of open reduction and internal fixation (ORIF) procedure History of chest tube placement Status post aorto-coronary artery bypass graft Hx of tonsillectomy Hx of skin graft History of prostate surgery Family History (Reviewed 11/17/24 @ 11:36 by Daniela Law 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, 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-C) Other Heart disease Social History Smoking Status: Former smoker how long ago did patient quit smokin02/08/1969 alcohol intake: never substance use type: does not use what type of physical activity do you participate in: none ROS Const Const: Negative for fatigue, weakness, headache(s) or frequent falls Eyes Eyes: Negative for blurry vision ENT ENT: Negative for headache(s), dizziness or Nosebleed/epistaxis Cardio Chest Pain: No Palpitations: No Edema: Bilateral Muscle aches with walking: None Resp Respiratory: Negative for SOB with activity, SOB at rest or SOB orthopnea\SOB lying down GI GI: Negative nausea, vomiting, heartburn, bright, red blood in stools or black,tarry stools : Negative for hematuria Neuro Neuro: Positive for lightheadedness and near syncope; Negative for dizziness, syncope, frequent falls, headache(s), weakness or blurryvision Endo Endo: Negative for fatigue Cardiology Exam Const Appearance: cooperative and no acute distress Nutritional Appearance: overweight Orientation: alert and oriented x3 Head Head: normal to inspection Ears: hearing grossly normal bilaterally Nose: external nose normal Face and Sinus: face symmetric Eyes General: appearance normal, both eyes and all related structures Eyelids: eyelids normal Conjunctivae: conjunctivae normal Pupils: PERRL and pupil size EOM: EOM intact bilaterally Neck Neck: normal visual inspection Carotids: Negative bruit Chest Chest inspection: normal inspection of the chest, midline sternotomy incision and normal respiratory effort Auscultation: Bilateral: Clear to Auscultation Cardio Palpation: normal PMI Rhythm: irregularly irregular Heart sounds: S1 normal and S2 normal; Negative rub, gallop or murmur GI GI: normal to inspection and soft Neuro General: patient alert, patient oriented x3 and CN's II-XI intact bilaterally Skin Skin: no rashes or lesions noted Extremities Pulses: Normal: Right Posterior Tibial Pulse, Left Posterior Tibial Pulse, RightRadial Pulse and Left Radial Pulse Lower Extremity Edema: None: Bilateral Psych Psychological: normal affect Supplemental Info Supplemental Information Echocardiogram 06/18/2023: Moderate concentric left ventricular hypertrophy. The left ventricular ejection fraction is 55 %. Aortic sclerosis, no stenosis. There is severe biatrial dilatation. Mild tricuspid valve insufficiency. Echocardiogram 04/16/2022: Interpretation Summary Left ventricular systolic function is normal. The estimated ejection fraction is 65 %. The left atrium is mildly enlarged. Mild diffuse mitral valve thickening. Mild (1+) mitral valve insufficiency. Mild tricuspid valve insufficiency. Mild diffuse aortic valve thickening. Moderate focal aortic valve calcification. Calcified aortic root. Right ventricular systolic pressure estimated to be 30 mmHg. No evidence for diastolic dysfunction. Cardiac catheterization 04/16/2022: CONCLUSIONS Normal Left Ventricular End Diastolic Pressure [place] Multivessel CAD CORONARY ANGIOGRAPHY DOMINANCE: Right Dominant LEFT HEART ASSESSMENT Left Ventricular Ejection Fraction: Not assessed Normal Left Ventricular End Diastolic Pressure LVEDP: 10 mmHg LEFT MAIN: Severe calcification, proximal: eccentric: 25 % Stenosis, distal: 50 % Stenosis LEFT ANTERIOR DESCENDING ARTERY: OSTIAL LAD: 75 % Stenosis PROX LAD: Severe calcification MID LAD: Severe calcification, Mild luminal irregularities CIRCUMFLEX ARTERY: OSTIAL CIRC: 75 % Stenosis PROX CIRC: Severe calcification OM 1: Mid - 50 % Stenosis RIGHT CORONARY ARTERY: Mild calcification Mild luminal irregularities OSTIAL RCA: 90 % Stenosis DISTAL RCA: 50 % Stenosis Cardiovascular Surgery 3/13/23 ([facility]) Grafts: [place] in situ mammary end to side mid LAD; Vein graft ascending aorta endto side obtuse marginal 1; vein graft ascending aorta end to side posterior desending (PDA) Labs: LDL Cholesterol, (0-130) 49 mg/dL HDL Cholesterol, (40-) 81 mg/dL Cholesterol, (<=200) 155 mg/dL Triglycerides, (-199) 57 mg/dL Diagnostics: Electrocardiogram Echocardiogram Cardiac Catheterization Chest X-Ray Abdomen/Pelvis CT Past Visits: Cardiology Visit Today Assessment and Plan Assessment and Plan (1) Status post aorto-coronary artery bypass graft: Status: Chronic Comment: CABG x3 on 04/20/[address] Alex-R[place] in situ mammary end-to-side mid LAD, vein graft ascending aorta end-to-side obtuse marginal 1, vein graft ascending aorta end-to-side posterior descending (PDA). Plan: Patient has a history of coronary artery disease with CABG x3 on 04/20/[address] Alex. He appears stable at this time, and denies any recent symptoms or events. He will continue ASA 81mg daily, and atorvastatin 40mg daily. He will continue with aggressive risk factor and lifestyle modifications, along with monitoring for any concerning symptoms. (2) Atrial fibrillation: Status: Chronic Plan: Patient has a history of atrial fibrillation. This is persistent. His echocardiogram from 06/18/2023 demonstrated ejection fraction of 55%, and severe biatrial enlargement. He appears to be in an irregularly irregular rhythm on exam today. His heart rate is well controlled at this time. He will continue with Eliquis 5mg twice daily, and diltiazem 240mg daily. He will continue to monitor for any concerning symptoms of atrial fibrillation. (3) Hypertension: Status: Chronic Qualifiers: Hypertension type: primary hypertension Qualified Code(s): I10 - Essential (primary) hypertension Plan: Patient has a history of hypertension. His blood pressure is elevated in the office today. He does acknowledge eating a lot of frozen meals. He was encouraged to decrease sodium intake. He will be asked to increase lisinopril to10mg twice daily. He will continue hydralazine 50mg twice daily, and diltiazem 240mg daily. He was asked to monitor his blood pressures at home, and notify ouroffice of readings in 1-2 weeks. Depending on readings, further recommendations will be made. Will also obtain lab work to assess his kidney function. Dependingon results, further recommendations will be made. (4) Hyperlipemia: Status: Chronic Plan: Patient has a history of hyperlipidemia. His most recent lipid panel from 06/22/2023: Cholesterol 103, HDL 44, LDL 49. He will obtain a fasting lipid and liver profile to reassess this. Depending on results, further recommendations will be made. He will continue atorvastatin 40 mg daily, along with aggressiverisk factor lifestyle modifications. Orders: Orders Comprehensive Metabolic Profil Today I10 - Essential (primary) hypertension Lipid Profile Today E78.5 - Hyperlipidemia, unspecified Magnesium Today I10 - Essential (primary) hypertension Medications: Changed From lisinopril 5 mg PO BID 60 tabs 0RF To lisinopril 10 mg PO BID 180 tabs 3RF Refilled lisinopril 5 mg PO BID 60 tabs 0RF Plan Details Additional Comments: Patient will follow-up in 4-6 weeks, or sooner if needed. Thank you for allowing me to participate in the care of your patient. Please donot hesitate to call if any issues arise. This note was generated using a voice recognition system and there may be incorrect words, spelling, or punctuation that were not noted when reviewing theoffice note prior to saving. Portions of this documentation were copied and pasted from previous office visitnotes to provide cohesive continuity of the history. The note has been reviewed,edited, and updated, as necessary. Follow Up: 4-6 Weeks (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/PA) Coding Level of Care Code Off vis,est,level 4 Diagnoses Status post aorto-coronary artery bypass graft Z95.1 Atrial fibrillation I48.91 Primary hypertension I10 Hypertension type: primary hypertension Hyperlipemia E78.5 Coding Level of Care Code Off vis,est,level 4 Diagnoses Status post aorto-coronary artery bypass graft Z95.1 Atrial fibrillation I48.91 Primary hypertension I10 Hypertension type: primary hypertension Hyperlipemia E78.5 Clinical Quality Measures Falls Risk Screening/Assistive Devices Have you fallen in the past year?: No Cardiac Ejection fraction %: 55 11/17/24 1061 <Electronically signed by Daniela Law NP 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-C> Date _ Daniela Law NP 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-C Alviner Signature: Date (if applicable) CC: ~ [facility] Work Phone: Reason for referral (narrative)No reason for referral information availableBlAd[facility] Work Phone: Summary Purpose Family History No Family History Records Found Relationship Condition Age at Onset Recorded Date/T ed Not Specified Cardiac disease Unknown Advance Directives No Advanced Directives Records Found Advance Directive Response Recorded Date/ Time Advance Directives No January 13, 2016 3:47pm Living Will No January 12 3:47pm Power of Folder Seamer No January 13, 2016 3:47pm Advance Directive Response Recorded Date/ Time Advance Directives No January 13, 2016 2:47pm Living Will No April 15, 2022 12:27pm Power of Folder Seamer No April 15 12:27pm Advance Directive Response Recorded Date/ Time Advance Directives No January 13, 2016 2:47pm Living Will No April 15, 2022 2:50pm Power of Folder Seamer No April 15 2:50pm Advance Directive Response Recorded Date/ Time Advance Directives No January 13, 2016 3:47pm Living Will No May 03, 2022 11:13am Power of Folder Seamer No May 03 11:13am Latest Code Status on File Code Status Date Activated Date Inactivated Comments Full Code 05/08/2022 12:15 PM Advance Directive Response Recorded Date/ Time Advance Directives on File No June 082022 9:07am Advance Directives No January 13, 2016 3:47pm Living Will No June 17, 2022 9 :07am Power of Folder Seamer No June 17, 2022 9:07am Advance Directive Response Recorded Date/ Time Advance Directives No January 13, 2016 2:47pm Living Will No June 17, 2022 8 :07am Power of Folder Seamer No June 17, 2022 8:07am Advance Directive Response Recorded Date/ Time Advance Directives No January 13, 2016 2:47pm Living Will No April 01 12:57am Power of Folder Seamer No April 01, 2023 12:57am Latest Code Status on File Code Status Date Activated Date Inactivated Comments Full Code 04/01/2023 7:36 AM Question Answer Comments Full Code Order Discussed With: Patient Code Status History Code Status Date Activated Date Inactivated Comments Full Code 05/08/2022 12:15 PM 04/01/2023 6:29 AM Latest Code Status on File Code Status Date Activated Date Inactivated Comments Full Code 04/01/2023 7:36 AM 04/08/2023 7:15 PM Question Answer Comments Full Code Order Discussed With: Patient Advance Directive Response Recorded Date/ Time Name of Medical Power of Folder Seamer Daughter Anel April 08, 2023 7:00pm Advance Directives No January 13, 2016 3:47pm Living Will No April 12, 2023 5:33pm Power of Folder Seamer No April 11 5:33pm Date Activated Date Inactivated Comments 04/01/2023 7:36 AM 04/08/2023 7:15 PM Question Answer Comments Full Code Order Discussed With: Patient Date Activated Date Inactivated Comments 05/08/2022 12:15 PM 04/01/2023 6:29 AM Advance Directive Response Recorded Date/ Time Name of Medical Power of Folder Seamer Daughter Anel April 08, 2023 7:00pm Name of Medical Power of Folder Seamer DAUGHTER June 17, 2023 7:42am Advance Directives No January 13, 2016 3:47pm Living Will Yes June 17, 2023 7: 42am Power of Folder Seamer Yes June 17, 2023 7:42am Advance Directive Response Recorded Date/ Time Name of Medical Power of Folder Seamer Daughter Anel April 08, 2023 7:00pm Name of Medical Power of Folder Seamer THINKS ITS YURIDIA THE OLDEST DAUGHTER June 17, 2023 2:58pm Advance Directives No January 13, 2016 3:47pm Living Will Yes June 17, 2023 2: 58pm Power of Folder Seamer Yes June 17, 2023 2:58pm Advance Directive Response Recorded Date/ Time Living Will No July 01, 2023 4 :20pm Do you have a Healthcare Power of Folder Seamer? Yes July 01, 2023 4:20pm Advance Directives No January 13, 2016 3:47pm Chief Complaint and Reason for Visit Chief Complaint E ORDER Chief Complaint ATYPICAL CHEST PAIN Reason for Visit Chest pain Non-ST elevated myocardial infarction Unstable angina Chief Complaint ATYPICAL CHEST PAIN ATYPICAL CHEST PAIN ATYPICAL CHEST PAIN Reason for Visit Chest pain Non-ST elevated myocardial infarction Unstable angina Hyperlipemia Hypertension Chief Complaint ATYPICAL CHEST PAIN ATYPICAL CHEST PAIN ATYPICAL CHEST PAIN ATYPICAL CHEST PAIN SOB Reason for Visit Chest pain Chief Complaint ATYPICAL CHEST PAIN ATYPICAL CHEST PAIN ATYPICAL CHEST PAIN ATYPICAL CHEST PAIN SOB S/P CABG FU after Heart Attack, Discharged on 04/30 Reason for Visit Chest pain Atherosclerotic heart disease of [place] coronary artery without angina pectoris General unsteadiness Hypothyroidism Postural lightheadedness Status post aorto-coronary artery bypass graft Chief Complaint 6 M FU Reason for Visit Atrial fibrillation Fatigue Hyperlipemia Status post aorto-coronary artery bypass graft Hypertension Chief Complaint 6 M FU fall Reason for Visit Atrial fibrillation Fatigue Hyperlipemia Status post aorto-coronary artery bypass graft Hypertension Chief Complaint 6 M FU fall MULTIPLE TRAUMA MULTIPLE TRAUMA MULTIPLE TRAUMA MULTIPLE TRAUMA MULTIPLE TRAUMA MULTIPLE TRAUMA MULTIPLE TRAUMA MULTIPLE TRAUMA Reason for Visit Hyperlipemia Hypertension Euthyroid sick syndrome Fall History of chest tube placement History of hypothyroidism Iron deficiency Multiple fractures of ribs of right side Physical debility Uncontrolled hypertension Action tremor Acute on chronic anemia Current use of assisted anticoagulation Hypertension Longstanding persistent atrial fibrillation Urine retention Hemothorax on right Chief Complaint 6 M FU fall MULTIPLE TRAUMA MULTIPLE TRAUMA MULTIPLE TRAUMA MULTIPLE TRAUMA MULTIPLE TRAUMA MULTIPLE TRAUMA MULTIPLE TRAUMA MULTIPLE TRAUMA [facility] Discharge FU Reason for Visit Hyperlipemia Hypertension History of hypothyroidism Iron deficiency Physical debility Uncontrolled hypertension Acute on chronic anemia Hypertension Urine retention Hemothorax on right History of hypothyroidism History of trigeminal neuralgia Physical debility Rib fractures UTI (urinary tract infection) Hyperlipemia Hypertension Chief Complaint 6 M FU fall MULTIPLE TRAUMA MULTIPLE TRAUMA MULTIPLE TRAUMA MULTIPLE TRAUMA MULTIPLE TRAUMA MULTIPLE TRAUMA MULTIPLE TRAUMA MULTIPLE TRAUMA [facility] Discharge FU EORDER Reason for Visit Hyperlipemia Hypertension History of hypothyroidism Iron deficiency Physical debility Uncontrolled hypertension Acute on chronic anemia Hypertension Urine retention Hemothorax on right History of hypothyroidism History of trigeminal neuralgia Physical debility Rib fractures UTI (urinary tract infection) Hyperlipemia Hypertension Chief Complaint 6 M FU fall MULTIPLE TRAUMA MULTIPLE TRAUMA MULTIPLE TRAUMA MULTIPLE TRAUMA MULTIPLE TRAUMA MULTIPLE TRAUMA MULTIPLE TRAUMA MULTIPLE TRAUMA [facility] Discharge FU EORDER Pain in Arm EORDERS Reason for Visit Hyperlipemia Hypertension History of hypothyroidism Iron deficiency Physical debility Uncontrolled hypertension Acute on chronic anemia Hypertension Urine retention Hemothorax on right History of hypothyroidism History of trigeminal neuralgia Physical debility Rib fractures UTI (urinary tract infection) Hyperlipemia Hypertension Left arm pain Chief Complaint fall MULTIPLE TRAUMA MULTIPLE TRAUMA MULTIPLE TRAUMA MULTIPLE TRAUMA MULTIPLE TRAUMA MULTIPLE TRAUMA MULTIPLE TRAUMA MULTIPLE TRAUMA [facility] Discharge FU EORDER Pain in Arm EORDERS R HIP FRACTURE S/P MECHANICAL FALL Reason for Visit History of hypothyro idism Iron deficiency Physical debility Uncontrolled hypertension Acute on chronic anemia Hypertension Urine retention Hemothorax on right History of hypothyroidism History of trigeminal neuralgia Physical debility Rib fractures UTI (urinary tract infection) Hyperlipemia Hypertension Left arm pain Closed head injury Closed right hip fracture Fall Hypokalemia Laceration Laceration of right facial nerve Chief Complaint fall MULTIPLE TRAUMA MULTIPLE TRAUMA MULTIPLE TRAUMA MULTIPLE TRAUMA MULTIPLE TRAUMA MULTIPLE TRAUMA MULTIPLE TRAUMA MULTIPLE TRAUMA [facility] Discharge FU EORDER Pain in Arm EORDERS R HIP FRACTURE S/P MECHANICAL FALL R HIP FRACTURE S/P MECHANICAL FALL R HIP FRACTURE S/P MECHANICAL FALL R HIP FRACTURE S/P MECHANICAL FALL R HIP FRACTURE S/P MECHANICAL FALL Reason for Visit History of hypothyro idism Iron deficiency Physical debility Uncontrolled hypertension Acute on chronic anemia Hypertension Urine retention Hemothorax on right History of hypothyroidism History of trigeminal neuralgia Physical debility Rib fractures UTI (urinary tract infection) Hyperlipemia Hypertension Left arm pain Atherosclerotic heart disease of [place] coronary artery without angina pectoris Closed head injury Closed right hip fracture Fall Hypokalemia Laceration Laceration of right facial nerve Right knee pain Acute on chronic anemia Chief Complaint Admit Date 6 M FU August 03, 2024 10:5 9am Reason for Visit Admit Date Hyperlipemia August 03, 2024 10:5 9am Hypertension August 03, 2024 10:5 9am Status post aorto-coronary artery bypass graft August 03, 2024 10:59am Atrial fibrillation August 03, 2024 10:5 9am Chief Complaint Admit Date 1 Y FU/MOVED FROM [facility] November 17, 2024 11:10am E ORDERS November 17, 2024 1 2:07pm Reason for Visit Admit Date Atrial fibrillation November 17, 2024 1 1:10am Hyperlipemia November 17, 2024 1 1:10am Hypertension November 17, 2024 1 1:10am Status post aorto-coronary artery bypass graft November 17, 2024 11:10am Health Concerns Infection Onset Date Last Indicated Resolved Time COVID-19 Rule-Out 04/17/2022 04/17/2022 04/17/2022 2:02 PM EST Infection Onset Date Last Indicated Resolved Time COVID-19 Rule-Out 04/30/2022 04/30/2022 04/30/2022 1:25 PM EDT COVID-19 Confirmed 04/30/2022 04/30/2022 Infection Onset Date Last Indicated Resolved Time COVID-19 Confirmed 04/30/2022 04/30/2022 Infection Onset Date Last Indicated Resolved Time COVID-19 Confirmed 04/30/2022 04/30/2022 8:51 PM EDT Infection Onset Date Last Indicated Resolved Time COVID-19 Rule-Out 04/30/2022 04/30/2022 04/30/2022 1:25 PM EDT COVID-19 Confirmed 04/30/2022 04/30/2022 8:51 PM EDT Additional Source Comments (unrecognized sect ion and content) No Status Records FoundNo Status Records FoundNo Status Records FoundNo Status Records Found INFORMATION SOURCE (unrecogn ized section and content) DATE CREATED AUTHOR 08/23/2017 [facility] DATE CREATED AUTHOR AUTHOR'S ORGANIZ ATION 05/03/2023 [facility] DATE CREATED AUTHOR AUTHOR'S ORGANIZ ATION 05/11/2023 [facility] DATE CREATED AUTHOR AUTHOR'S ORGANIZ ATION 12/21/2024 [facility] Goals (unrecognized section and content) Goals may be documented in a n alternate sectionGoals may be documented in an alternate sectionGoals may be documented in an alternate sectionGoals may be documented in an alternate sectionGoals may be documented in an alternate sectionGoals may be documented in an alternate sectionGoals may be documented in an alternate sectionGoals may be documented in an alternate sectionGoals may be documented in an alternate sectionGoals may be documented in an alternate sectionGoals may be documented in an alternate section Care Teams (unrecognized sec tion and content) Team Status: Active Member Role Status Dates Dr. Jose Ramon Welch MD Family Provider Active Dr. Shira Brady MD Primary Care Provider Active Team Status: Active Member Role Status Dates Dr. Shira Brady MD Primary Care Provider Active Dr. Luis Miguel Mccabe MD Emergency Provider Active Dr. Lai Gallardo MD Admit Provider, Attending Provi jose Active Team Status: Active Member Role Status Dates Dr. Shira Brady MD Primary Care Provider Active Dr. Luis Miguel Mccabe MD Emergency Provider Active Dr. Lai Gallardo MD Admit Provider, A ttending Provider, Other Provider Active Team Status: Active Member Role Status Dates Dr. Shira Brady MD Primary Care Provider Active Dr. Luis Miguel Mccabe MD Emergency Provider Active Dr. Lai Gallardo MD Admit Provider, Other Provider Active Dr. Garett Crockett MD Attending Provider, Other Prov ider Active Team Status: Active Member Role Status Dates Dr. Shira Brady MD Primary Care Provider Active Dr. Garett Crockett MD Attending Provider Active Team Status: Inactive Member Role Status Dates Dr. Shira Brady MD Primary Care Provider Active Dr. Luis Miguel Mccabe MD Emergency Provider Active Dr. Lai Gallardo MD Admit Provider, Attending Provi jose Active Dr. Garett Crockett MD Other Provider Active Plugger Worker Relationship Specialty Start Date End Date Jose Ramon Welch MD [address] [place], [place] [address] PCP - General Family Medicine 04/30/22 Magi Pulliam, FOOT CUTTER.FOUNTAIN WORKER [address] [place] [address] Referring Cardiac Surg 04/30/22 Javier Alex MD [address] [place] [address] Home Care Provider Cardiothoracic Surgery 04/30/22 Zay Chavez, RAN [address] [place], [place] [id number] Relocation Associate Post Acute Care 04/30/22 Plugger Worker Relationship Specialty Start Date End Date Jose Ramon Welch MD [address] [place] [address] PCP - General Family Medicine 04/30/22 Magi Pulliam, FOOT CUTTER.FOUNTAIN WORKER [address] [address] [place] [address] Referring Cardiac Surg 04/30/22 Javier Alex MD [address] [place] [address] [place] [address] Home Care Provider Cardiothoracic Surgery 04/30/22 Zay Chavez RN [address] [place], [place] [id number] Relocation Associate Post Acute Care 04/30/22 Plugger Worker Relationship Specialty Start Date End Date Jose Ramon Welch MD [address] [place], [place] [id number] PCP - General Family Medicine 04/30/22 Magi Pulliam, FOOT CUTTER.FOUNTAIN WORKER [address] [address] [place] [address] Referring Cardiac Surg 04/30/22 Javier Alex MD [address] [place] [address] Home Care Provider Cardiothoracic Surgery 04/30/22 Zay Chavez, RAN [address] [place], [place] [id number] Relocation Associate Post Acute Care 04/30/22 Catracho Sutton, RAN [address] [place], [place] [id number] Primary Care Milk Runner Internal Medicine 05/01/22 05/31/22 Team Status: Active Member Role Status Dates Dr. Shira Brady MD Primary Care Provider Active Dr. Luis Miguel Mccabe MD Emergency Provider Active Dr. Lai Gallardo MD Admit Provider, A ttending Provider, Other Provider Active Dr. Garett Crockett MD Other Provider Active Team Status: Inactive Member Role Status Dates Dr. Shira Brady MD Primary Care Provider Active Dr. Ju Garcia MD Emergency Provider Active Plugger Worker Relationship Specialty Start Date End Date Jose Ramon Welch MD [address] [place] [address] PCP - General Family Medicine 04/30/22 Magi Pulliam, FOOT CUTTER.FOUNTAIN WORKER [address] [place] [address] Referring Cardiac Surg 04/30/22 Javier Alex MD [address] [place] [address] Home Care Provider Cardiothoracic Surgery 04/30/22 Zay Chavez, RAN [address] [place] [address] Relocation Associate Post Acute Care 04/30/22 Catracho Sutton, RAN [address] [place], [place] [id number] Primary Care Milk Runner Internal Medicine 05/01/22 05/31/22 Plugger Worker Relationship Specialty Start Date End Date Shira Brady MD [address] [place] [address] PCP - General Internal Medicine 05/04/22 Magi Pulliam, FOOT CUTTER.FOUNTAIN WORKER [address] [address] [place] [address] Referring Cardiac Surg 04/30/22 Javier Alex MD [address] [address] [place] [address] Home Care Provider Cardiothoracic Surgery 04/30/22 Zay Chavez, RAN [address] [place] [address] Relocation Associate Post Acute Care 04/30/22 Plugger Worker Relationship Specialty Start Date End Date Shira Brady MD [address] [facility] [place] [address] PCP - General Internal Medicine 05/04/22 Magi Pulliam, FOOT CUTTER.FOUNTAIN WORKER [address] [place] [address] [place] [address] Referring Cardiac Surg 04/30/22 Javier Alex MD [address] [place] [address] [place] [address] Home Care Provider Cardiothoracic Surgery 04/30/22 Zay Chavez RN [address] [place] [address] Relocation Associate Post Acute Care 04/30/22 Plugger Worker Relationship Specialty Start Date End Date Shira Brady MD [address] [place] [address] PCP - General Internal Medicine 05/04/22 Magi Pulliam, FOOT CUTTER.FOUNTAIN WORKER [address] [place] [address] [place] [address] Referring Cardiac Surg 04/30/22 Javier Alex MD [address] [place] [address] [place] [address] Home Care Provider Cardiothoracic Surgery 04/30/22 Zay Chavez RN [address] [place] [address] Relocation Associate Post Acute Care 04/30/22 Plugger Worker Relationship Specialty Start Date End Date Shira Brady MD [address] [place] [address] PCP - General Internal Medicine 05/04/22 Magi Pulliam, FOOT CUTTER.FOUNTAIN WORKER [address] [place] [address] [place] [address] Referring Cardiac Surg 04/30/22 Javier Alex MD [address] [place] [address] [place] [address] Home Care Provider Cardiothoracic Surgery 04/30/22 Zay Chavez RN [address] [facility] [place] [address] Relocation Associate Post Acute Care 04/30/22 Plugger Worker Relationship Specialty Start Date End Date Shira Brady MD [address] [place] [address] PCP - General Internal Medicine 05/04/22 Magi Pulliam, FOOT CUTTER.FOUNTAIN WORKER [address] [place] [address] [place] [address] Referring Cardiac Surg 04/30/22 Javier Alex MD [address] [place] [address] [place] [address] Home Care Provider Cardiothoracic Surgery 04/30/22 Zay Chavez RN [address] [facility] [place] [address] Relocation Associate Post Acute Care 04/30/22 Plugger Worker Relationship Specialty Start Date End Date Shira Brady MD [address] [place] [address] PCP - General Internal Medicine 05/04/22 Magi Pulliam, FOOT CUTTER.FOUNTAIN WORKER [address] [place] [address] [place] [address] Referring Cardiac Surg 04/30/22 Javier Alex MD [address] [place] [address] [place] [address] Home Care Provider Cardiothoracic Surgery 04/30/22 Zay Chavez RN [address] [facility] [place] [address] Relocation Associate Post Acute Care 04/30/22 Plugger Worker Relationship Specialty Start Date End Date Shira Brady MD [address] [place] [address] PCP - General Internal Medicine 05/04/22 Magi Pulliam, FOOT CUTTER.FOUNTAIN WORKER [address] [place] [address] [place] [address] Referring Cardiac Surg 04/30/22 Javier Alex MD [address] [place] [address] [place] [address] Home Care Provider Cardiothoracic Surgery 04/30/22 Zay Chavez, RAN [address] [place] [address] Relocation Associate Post Acute Care 04/30/22 Plugger Worker Relationship Specialty Start Date End Date Shira Brady MD [address] [place] [address] PCP - General Internal Medicine 05/04/22 Magi Pulliam, FOOT CUTTER.FOUNTAIN WORKER [address] [place] [address] [place] [address] Referring Cardiac Surg 04/30/22 Javier Alex MD [address] [place] [address] [place] [address] Home Care Provider Cardiothoracic Surgery 04/30/22 Zay Chavez, RAN [address] [place] [address] Relocation Associate Post Acute Care 04/30/22 Plugger Worker Relationship Specialty Start Date End Date Shira Brady MD [address] [place] [address] PCP - General Internal Medicine 05/04/22 Magi Pulliam, FOOT CUTTER.FOUNTAIN WORKER [address] [place] [address] [place] [address] Referring Cardiac Surg 04/30/22 Javier Alex MD [address] [place] [address] [place] [address] Home Care Provider Cardiothoracic Surgery 04/30/22 Zay Chavez, RAN [address] [facility] [address] Relocation Associate Post Acute Care 04/30/22 Plugger Worker Relationship Specialty Start Date End Date Shira Brady MD [address] [place] [address] PCP - General Internal Medicine 05/04/22 Magi Pulliam, FOOT CUTTER.FOUNTAIN WORKER [address] [place] [address] [place] [address] Referring Cardiac Surg 04/30/22 Javier Alex MD [address] [place] [address] [place] [address] Home Care Provider Cardiothoracic Surgery 04/30/22 Zay Chavez RN [address] [facility] [place] [address] Relocation Associate Post Acute Care 04/30/22 Plugger Worker Relationship Specialty Start Date End Date Shira Brady MD [address] [place] [address] PCP - General Internal Medicine 05/04/22 Magi Pulliam, FOOT CUTTER.FOUNTAIN WORKER [address] [place] [address] [place] [address] Referring Cardiac Surg 04/30/22 Javier Alex MD [address] [place] [address] [place] [address] Home Care Provider Cardiothoracic Surgery 04/30/22 Zay Chavez RN [address] [facility] [place] [address] Relocation Associate Post Acute Care 04/30/22 Plugger Worker Relationship Specialty Start Date End Date Shira Brady MD [address] [place] [address] PCP - General Internal Medicine 05/04/22 Magi Pulliam, FOOT CUTTER.FOUNTAIN WORKER [address] [place] [address] [place] [address] Referring Cardiac Surg 04/30/22 Javier Alex MD [address] [place] [address] [place] [address] Home Care Provider Cardiothoracic Surgery 04/30/22 Zay Chavez, RAN [address] [place] [address] Relocation Associate Post Acute Care 04/30/22 Plugger Worker Relationship Specialty Start Date End Date Shira Brady MD [address] [place] [address] PCP - General Internal Medicine 05/04/22 Magi Pulliam, FOOT CUTTER.FOUNTAIN WORKER [address] [place] [address] [place] [address] Referring Cardiac Surg 04/30/22 Javier Alex MD [address] [place] [address] [place] [address] Home Care Provider Cardiothoracic Surgery 04/30/22 Zay Chavez RN [address] [place] [address] Relocation Associate Post Acute Care 04/30/22 Plugger Worker Relationship Specialty Start Date End Date Shira Brady MD [address] [place] [address] PCP - General Internal Medicine 05/04/22 Magi Pulliam, FOOT CUTTER.FOUNTAIN WORKER [address] [place] [address] [place] [address] Referring Cardiac Surg 04/30/22 Javier Alex MD [address] [place] [address] [place] [address] Home Care Provider Cardiothoracic Surgery 04/30/22 Zay Chavez RN [address] [place], [place] [id number] Relocation Associate Post Acute Care 04/30/22 Plugger Worker Relationship Specialty Start Date End Date Shira Brady MD [address] [facility] [place] [address] PCP - General Internal Medicine 05/04/22 Magi Pulliam, FOOT CUTTER.FOUNTAIN WORKER [address] [place] [address] [place] [address] Referring Cardiac Surg 04/30/22 Javier Alex MD [address] [place] [address] [place] [address] Home Care Provider Cardiothoracic Surgery 04/30/22 Team Status: Inactive Member Role Status Dates Dr. Shira Brady MD Primary Care Provider, Attendi ng Provider Active Team Status: Inactive Member Role Status Dates Dr. Shira Brady MD Primary Care Provider Active Dr. Ju Garcia MD Attending Provider, Emergency Provider Active Team Status: Inactive Member Role Status Dates Dr. Shira Brady MD Primary Care Provider Active Dr. Javier Alex MD Attending Provider, Referring Provider Active Plugger Worker Relationship Specialty Start Date End Date Shira Brady MD [address] [place] [address] PCP - General Internal Medicine 05/04/22 Magi Pulliam, FOOT CUTTER.FOUNTAIN WORKER [address] [place] [address] [place] [address] Referring Cardiac Surg 04/30/22 Javier Alex MD [address] [place] [address] [place] [address] Home Care Provider Cardiothoracic Surgery 04/30/22 Zay Chavez RN [address] [place] [address] Relocation Associate Post Acute Care 04/30/22 06/03/22 Team Status: Inactive Member Role Status Dates Dr. Shira Brady MD Primary Care Provider, Referri ng Provider Active Daniela Law 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, 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-C Attending Provider Active Team Status: Inactive Member Role Status Dates Dr. Shira Brady MD Primary Care Provider Active Daniela Law 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, 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-C Attending Provider Active Team Status: Inactive Member Role Status Dates Dr. Shira Brady MD Primary Care Provider Active Dr. Rayray Wiggins DO Emergency Provider Active Plugger Worker Relationship Specialty Start Date End Date Shira Brady MD [address] [place], [place] [address] PCP - General Internal Medicine 05/04/22 Magi Pulliam, FOOT CUTTER.FOUNTAIN WORKER [address] [place] [address] [place], [place] [id number] Referring Cardiac Surg 04/30/22 Javier Alex MD [address] [address] [place], [place] [id number] Home Care Provider Cardiothoracic Surgery 04/30/22 Plugger Worker Relationship Specialty Start Date End Date Jose Ramon Welch MD [address] [place] [address] PCP - General Family Medicine 04/30/22 05/03/22 Shira Brady MD [address] [place] [address] PCP - General Internal Medicine 05/04/22 Magi Pulliam, FOOT CUTTER.FOUNTAIN WORKER [address] [address] [place] [address] Referring Cardiac Surg 04/30/22 Javier Alex MD [address] [place] [address] Home Care Provider Cardiothoracic Surgery 04/30/22 Zay Chavez, RN [address] [place] [address] Relocation Associate Post Acute Care 04/30/22 06/03/22 Catracho Sutton, RAN [address] [place], [place] [id number] Primary Care Milk Runner Internal Medicine 05/01/22 05/04/22 Team Status: Active Member Role Status Dates Dr. Shira Brady MD Primary Care Provider Active Dr. Brandee Monterroso DO Admit Pr ovider, Attending Provider, Other Provider Active Team Status: Active Member Role Status Dates Dr. Shira Brady MD Primary Care Provider Active Dr. Brandee Monterroso DO Admit Pr ovider, Attending Provider, Referring Provider, Other Provider Active Team Status: Inactive Member Role Status Dates Dr. Shira Brady MD Primary Care Provider Active Dr. Rayray Wiggins DO Attending Provider, Emergency Pr ovider Active Team Status: Inactive Member Role Status Dates Dr. Shira Brady MD Primary Care Provider Active Dr. Brandee Monterroso DO Admit Pr ovider, Attending Provider, Referring Provider Active Plugger Worker Relationship Specialty Start Date End Date Shira Brady MD [address] [place] [id number] PCP - General Internal Medicine 05/04/22 Magi Pulliam, FOOT CUTTER.FOUNTAIN WORKER [address] [place] [address] [place], [place] [id number] Referring Cardiac Surg 04/30/22 Javier Alex MD [address] [address] [place], [place] [id number] Home Care Provider Cardiothoracic Surgery 04/30/22 Plugger Worker Relationship Specialty Start Date End Date Shira Brady MD [address] [place] [address] PCP - General Internal Medicine 05/04/22 Magi Pulliam, FOOT CUTTER.FOUNTAIN WORKER [address] [place] [address] [place] [address] Referring Cardiac Surg 04/30/22 Javier Alex MD [address] [place] [address] [place], [place] [id number] [phone] Home Care Provider Cardiothoracic Surgery 04/30/22 Plugger Worker Relationship Specialty Start Date End Date Shira Brady MD [address] [place] [address] PCP - General Internal Medicine 05/04/22 Magi Pulliam, FOOT CUTTER.FOUNTAIN WORKER [address] [place] [address] [place], [place] [id number] [phone] Referring Cardiac Surg 04/30/22 Javier Alex MD [address] [place] [address] [place] [address] Home Care Provider Cardiothoracic Surgery 04/30/22 Team Status: Inactive Member Role Status Dates Dr. Shira Brady MD Primary Care Pro vider, Attending Provider, Referring Provider Active Plugger Worker Relationship Specialty Start Date End Date Shira Brady MD [address] [place] [address] PCP - General Internal Medicine 05/04/22 Magi Pulliam, FOOT CUTTER.FOUNTAIN WORKER [address] [place] [address] [place] [address] Referring Cardiac Surg 04/30/22 Javier Alex MD [address] [place] [address] [place], [place] [id number] Home Care Provider Cardiothoracic Surgery 04/30/22 Team Status: Active Member Role Status Dates Dr. Shira Brady MD Primary Care Provider Active Dr. Ju Garcia MD Emergency Provider Active Dr. Lucille Colindres DO Admit Provider, Attending Provide r Active Team Status: Active Member Role Status Dates Dr. Shira Brady MD Primary Care Provider Active Dr. Kris Edwards MD Attending Provider Active Team Status: Active Member Role Status Dates Dr. Shira Brady MD Primary Care Provider Active Dr. Ju Garcia MD Emergency Provider Active Dr. Lucille Colindres DO Admit Provider, Att ending Provider, Other Provider Active Dr. Ignacio Sifuentes MD Other Provider Active Team Status: Active Member Role Status Dates Dr. Shira Brady MD Primary Care Provider Active Dr. Ju Garcia MD Emergency Provider Active Dr. Lucille Colindres DO Admit Provider, Other Provider Ac tive Dr. Ignacio Sifuentes MD Other Provider Active Dr. Katerina Moreno MD Attending Provider, Other Prov ider Active Team Status: Inactive Member Role Status Dates Dr. Shira Brady MD Primary Care Provider Active Dr. Ju Garcia MD Emergency Provider Active Dr. Lucille Colindres DO Admit Provider, Other Provider Ac tive Dr. Ignacio Sifuentes MD Other Provider Active Dr. 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 Shira Brady MD Primary Care Provider Active Start: August 03, 2024 End: August 03, 2024 Dr. Shira Brady MD Referring Provider Active Start: August 03, 2024 End: August 03, 2024 Pilar Alvarez PA, PA Attending Provider Active Start: August 03, 2024 End: August 03, 2024 Team Status: Active Member Role/Relationship Status Dates Dr. Shira Brady MD Primary care physician Active Team Status: Inactive Member Role/Relationship Status Dates Dr. Shira Brady MD Primary care physician Active Start: November 17, 2024 End: November 17, 2024 Dr. Shira Brady MD Referring Provider Active Start: November 17, 2024 End: November 17, 2024 Daniela Law NP, 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-C Attending physician Active Start: November 17, 2024 End: November 17, 2024 Team Status: Inactive Member Role/Relationship Status Dates Dr. Shira Brady MD Primary care physician Active Start: November 17, 2024 End: November 17, 2024 Daniela Law NP, NP-C Attending physician Active Start: November 17, 2024 End: November 17, 2024 Daniela Law NP, NP-C Referring Provider Active Start: November 17, 2024 End: November 17, 2024 Source Comments (unrecognize d section and content) In the event this informatio n is protected by the Federal Confidentiality of Alcohol and Drug Abuse Patient Records regulations: The Federal rules restrict any use of the information to criminally investigate or prosecute any alcohol or drug abuse patient.[facility] the event this information is protected by the Federal Confidentiality of Alcohol and Drug Abuse Patient Records regulations: The Federal rules restrict any use of the information to criminally investigate or prosecute any alcohol or drug abuse patient.[facility] the event this information is protected by the Federal Confidentiality of Alcohol and Drug Abuse Patient Records regulations: The Federal rules restrict any use of the information to criminally investigate or prosecute any alcohol or drug abuse patient.[facility] the event this information is protected by the Federal Confidentiality of Alcohol and Drug Abuse Patient Records regulations: The Federal rules restrict any use of the information to criminally investigate or prosecute any alcohol or drug abuse patient.[facility] the event this information is protected by the Federal Confidentiality of Alcohol and Drug Abuse Patient Records regulations: The Federal rules restrict any use of the information to criminally investigate or prosecute any alcohol or drug abuse patient.[facility] the event this information is protected by the Federal Confidentiality of Alcohol and Drug Abuse Patient Records regulations: The Federal rules restrict any use of the information to criminally investigate or prosecute any alcohol or drug abuse patient.[facility] the event this information is protected by the Federal Confidentiality of Alcohol and Drug Abuse Patient Records regulations: The Federal rules restrict any use of the information to criminally investigate or prosecute any alcohol or drug abuse patient.[facility] the event this information is protected by the Federal Confidentiality of Alcohol and Drug Abuse Patient Records regulations: The Federal rules restrict any use of the information to criminally investigate or prosecute any alcohol or drug abuse patient.[facility] the event this information is protected by the Federal Confidentiality of Alcohol and Drug Abuse Patient Records regulations: The Federal rules restrict any use of the information to criminally investigate or prosecute any alcohol or drug abuse patient.[facility] the event this information is protected by the Federal Confidentiality of Alcohol and Drug Abuse Patient Records regulations: The Federal rules restrict any use of the information to criminally investigate or prosecute any alcohol or drug abuse patient.[facility] the event this information is protected by the Federal Confidentiality of Alcohol and Drug Abuse Patient Records regulations: The Federal rules restrict any use of the information to criminally investigate or prosecute any alcohol or drug abuse patient.[facility] Hospital[facility] the event this information is protected by the Federal Confidentiality of Alcohol and Drug Abuse Patient Records regulations: The Federal rules restrict any use of the information to criminally investigate or prosecute any alcohol or drug abuse patient.[facility] Hospital[facility] the event this information is protected by the Federal Confidentiality of Alcohol and Drug Abuse Patient Records regulations: The Federal rules restrict any use of the information to criminally investigate or prosecute any alcohol or drug abuse patient.[facility] Hospital[facility] the event this information is protected by the Federal Confidentiality of Alcohol and Drug Abuse Patient Records regulations: The Federal rules restrict any use of the information to criminally investigate or prosecute any alcohol or drug abuse patient.[facility] Hospital[facility] the event this information is protected by the Federal Confidentiality of Alcohol and Drug Abuse Patient Records regulations: The Federal rules restrict any use of the information to criminally investigate or prosecute any alcohol or drug abuse patient.[facility] Hospital[facility] the event this information is protected by the Federal Confidentiality of Alcohol and Drug Abuse Patient Records regulations: The Federal rules restrict any use of the information to criminally investigate or prosecute any alcohol or drug abuse patient.[facility] Hospital[facility] the event this information is protected by the Federal Confidentiality of Alcohol and Drug Abuse Patient Records regulations: The Federal rules restrict any use of the information to criminally investigate or prosecute any alcohol or drug abuse patient.[facility] Hospital[facility] the event this information is protected by the Federal Confidentiality of Alcohol and Drug Abuse Patient Records regulations: The Federal rules restrict any use of the information to criminally investigate or prosecute any alcohol or drug abuse patient.[facility] Hospital[facility] the event this information is protected by the Federal Confidentiality of Alcohol and Drug Abuse Patient Records regulations: The Federal rules restrict any use of the information to criminally investigate or prosecute any alcohol or drug abuse patient.[facility] HospitalIn the event this information is protected by the Federal Confidentiality of Alcohol and Drug Abuse Patient Records regulations: The Federal rules restrict any use of the information to criminally investigate or prosecute any alcohol or drug abuse patient.[facility] HospitalIn the event this information is protected by the Federal Confidentiality of Alcohol and Drug Abuse Patient Records regulations: The Federal rules restrict any use of the information to criminally investigate or prosecute any alcohol or drug abuse patient.[facility] HospitalIn the event this information is protected by the Federal Confidentiality of Alcohol and Drug Abuse Patient Records regulations: The Federal rules restrict any use of the information to criminally investigate or prosecute any alcohol or drug abuse patient.[facility] HospitalIn the event this information is protected by the Federal Confidentiality of Alcohol and Drug Abuse Patient Records regulations: The Federal rules restrict any use of the information to criminally investigate or prosecute any alcohol or drug abuse patient.[facility] HospitalIn the event this information is protected by the Federal Confidentiality of Alcohol and Drug Abuse Patient Records regulations: The Federal rules restrict any use of the information to criminally investigate or prosecute any alcohol or drug abuse patient.[facility] HospitalIn the event this information is protected by the Federal Confidentiality of Alcohol and Drug Abuse Patient Records regulations: The Federal rules restrict any use of the information to criminally investigate or prosecute any alcohol or drug abuse patient.[facility] HospitalIn the event this information is protected by the Federal Confidentiality of Alcohol and Drug Abuse Patient Records regulations: The Federal rules restrict any use of the information to criminally investigate or prosecute any alcohol or drug abuse patient.[facility] HospitalIn the event this information is protected by the Federal Confidentiality of Alcohol and Drug Abuse Patient Records regulations: The Federal rules restrict any use of the information to criminally investigate or prosecute any alcohol or drug abuse patient.[facility] HospitalIn the event this information is protected by the Federal Confidentiality of Alcohol and Drug Abuse Patient Records regulations: The Federal rules restrict any use of the information to criminally investigate or prosecute any alcohol or drug abuse patient.[facility] HospitalIn the event this information is protected by the Federal Confidentiality of Alcohol and Drug Abuse Patient Records regulations: The Federal rules restrict any use of the information to criminally investigate or prosecute any alcohol or drug abuse patient.[facility] HospitalIn the event this information is protected by the Federal Confidentiality of Alcohol and Drug Abuse Patient Records regulations: The Federal rules restrict any use of the information to criminally investigate or prosecute any alcohol or drug abuse patient.[facility] HospitalIn the event this information is protected by the Federal Confidentiality of Alcohol and Drug Abuse Patient Records regulations: The Federal rules restrict any use of the information to criminally investigate or prosecute any alcohol or drug abuse patient.[facility] HospitalIn the event this information is protected by the Federal Confidentiality of Alcohol and Drug Abuse Patient Records regulations: The Federal rules restrict any use of the information to criminally investigate or prosecute any alcohol or drug abuse patient.[facility] HospitalIn the event this information is protected by the Federal Confidentiality of Alcohol and Drug Abuse Patient Records regulations: The Federal rules restrict any use of the information to criminally investigate or prosecute any alcohol or drug abuse patient.[facility] HospitalIn the event this information is protected by the Federal Confidentiality of Alcohol and Drug Abuse Patient Records regulations: The Federal rules restrict any use of the information to criminally investigate or prosecute any alcohol or drug abuse patient.[facility] HospitalIn the event this information is protected by the Federal Confidentiality of Alcohol and Drug Abuse Patient Records regulations: The Federal rules restrict any use of the information to criminally investigate or prosecute any alcohol or drug abuse patient.[facility] HospitalIn the event this information is protected by the Federal Confidentiality of Alcohol and Drug Abuse Patient Records regulations: The Federal rules restrict any use of the information to criminally investigate or prosecute any alcohol or drug abuse patient.[facility] HospitalIn the event this information is protected by the Federal Confidentiality of Alcohol and Drug Abuse Patient Records regulations: The Federal rules restrict any use of the information to criminally investigate or prosecute any alcohol or drug abuse patient.[facility] HospitalIn the event this information is protected by the Federal Confidentiality of Alcohol and Drug Abuse Patient Records regulations: The Federal rules restrict any use of the information to criminally investigate or prosecute any alcohol or drug abuse patient.[facility] HospitalIn the event this information is protected by the Federal Confidentiality of Alcohol and Drug Abuse Patient Records regulations: The Federal rules restrict any use of the information to criminally investigate or prosecute any alcohol or drug abuse patient.[facility] HospitalIn the event this information is protected by the Federal Confidentiality of Alcohol and Drug Abuse Patient Records regulations: The Federal rules restrict any use of the information to criminally investigate or prosecute any alcohol or drug abuse patient.[facility] HospitalIn the event this information is protected by the Federal Confidentiality of Alcohol and Drug Abuse Patient Records regulations: The Federal rules restrict any use of the information to criminally investigate or prosecute any alcohol or drug abuse patient.[facility] HospitalIn the event this information is protected by the Federal Confidentiality of Alcohol and Drug Abuse Patient Records regulations: The Federal rules restrict any use of the information to criminally investigate or prosecute any alcohol or drug abuse patient.[facility] HospitalIn the event this information is protected by the Federal Confidentiality of Alcohol and Drug Abuse Patient Records regulations: The Federal rules restrict any use of the information to criminally investigate or prosecute any alcohol or drug abuse patient.[facility] HospitalIn the event this information is protected by the Federal Confidentiality of Alcohol and Drug Abuse Patient Records regulations: The Federal rules restrict any use of the information to criminally investigate or prosecute any alcohol or drug abuse patient.[facility] Reason for Visit (unrecogniz ed section and content) Reason Comments Orders Reason Comments Other Home Health Care ord ers Reason Comments Home Care Confirmation Call Reason Onset Date Comments Transition Of Care 05/01/2022 TCM Initial A [facility] Discharge 04/30/22 Reason Onset Date Comments Transition Of Care 05/05/2022 TCM follow up [facility] Discharge 04/30/22 Reason Comments 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 Reason Comments Home Care Reason Comments Orders Prescription for Dil tiazem Request to contact 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 request to contac t pharmacy Reason Comments Question DaughterZoya, Reason Comments Patient Update Home Care Patient Question Reason Comments Referral Information Reason Comments Home Care Severe medication in teraction Reason Comments Critical Care Transport Reason Comments Post Op Follow Up Post Op Hemothorax Reason Comments Post Op Follow Up FOR RECORDS PERTAINING TO PATIENTS WHO ARE [...] BE BASED ON THE PRIMARY CLINICAL RECORDS. [facility] [employer] [facility]. provides no warranty or guarantee of the accuracy or completeness of information in this document.
[2025-01-31] MEDS: Lactated Ringers 1,000 ML 15 ML IV (06:50)
--- NOTE | 2025-01-31 06:55 | PCM.PRE.AN2 ---
ASA Classification* ASA Classification ASA Classification: 3 Assessment & Plan Anesthesia* Anesthesia Assessment Anesthesia Assessment: Discussed sedation and/or anesthesia options, risks, benefits, and alternatives with patient/parents/legal guardian/POA. Questions invited. The patient/parents/legal guardian/POA seems to understand and agrees to proceed with anesthesia plan. Reviewed the physical assessment, medical history, allergy history and patient home medications list prior to surgery/procedure/anesthetic and documented any changes. Performed airway and anesthesia risk assessments. Anesthesia Type Anesthesia Type: MAC Anesthesia Focused Assessment* Temperature: 98.1 F Pulse Rate: 89 Blood Pressure: 208/109 Respiratory Rate: 16 Pulse Ox: 100 Airway Assessment Mouth opens: >3 cm Mallampati Score: II Labs Anesthesia Preop lab: CBC WBC, (4.4-11.0) 4.7 K/mm3 08/16/23, 10:10 RBC, (4.6-6.2) 3.83 M/mm3 L 08/16/23, 10:10 Hgb, (13.0-16.5) 11.2 g/dL L 08/16/23, 10:10 Hct, (40-54) 36.0 % L 08/16/23, 10:10 Plt Count, (150-450) 162 K/mm3 08/16/23, 10:10 CHEMISTRY Potassium, (3.3-5.1) 4.3 mmol/L 11/17/24, 12:14 Sodium, (133-145) 139 mmol/L 11/17/24, 12:14 Magnesium, (1.5-2.2) 2.2 mg/dL 11/17/24, 12:14 Phosphorus, (2.5-4.9) 2.8 mg/dL 06/29/23, 05:03 BUN, (4-19) 18 mg/dL 11/17/24, 12:14 Creatinine, (0.70-1.20) 0.72 mg/dL 11/17/24, 12:14 Glucose, (70-99) 98 mg/dL 11/17/24, 12:14 TSH, (0.358-3.74) 2.32 uIU/mL 06/26/23, 03:27 COAG PT, (11.7-14.9) 19.2 SECONDS H 06/25/23, 10:28 Pre-Assessment Diagnosis/Proposed Procedure Planned Operative Procedure(s): (R) Right Endoscopic Carpal Tunnel Release Anesthesia History Anesthesia History - senior resident care director: Anesthesia History - senior resident care director Hx Hospitalization No 01/22/25 10:17 Any Problems With Anesthesia Yes: confusion, 01/22/25 10:17 hallucinations after open heart surgery Cholinesterase deficiency No 01/22/25 10:17 You/Your Family Experience No 01/22/25 10:17 fever (hyperthermia) with Relationship Recent Exposure to Contagious No 01/31/25 06:22 Disease Does patient have nerve No 01/22/25 10:17 stimulator Patient instructed to have device shut off --Does patient have Pacemaker No 01/31/25 06:26 or ICD? When Was Last Pacemaker Check QUESTION #4 FULL TEXT: You/Your Family Experience fever (hyperthermia) with Anesthesia Last Oral Intake Last Oral intake: Last Oral Intake NPO since 01:00 01/31/25 06:26 Meds taken in AM with sips of Yes 01/31/25 06:26 water? Meds patient instructed to tegretol 01/31/25 06:26 take am of surgery levothyroine PONV PONV - senior resident care director: PONV - senior resident care director Female No 01/22/25 10:17 HX of Motion Sickness No 01/22/25 10:17 HX of N/V After Surgery No 01/22/25 10:17 Non-Smoker Yes 01/22/25 10:17 Duration of Surgery greater No 01/22/25 10:17 than 60 minutes Number of Risk Factors 1 01/22/25 10:17 PONV Score Low Risk 01/22/25 10:17 Height & Weight Height & Weight: Anesthesia: Height & Weight Height 5 ft 11 in 01/31/25 06:26 Weight: 90 kg 01/31/25 06:26 Body Mass Index (BMI) 27.6 01/31/25 06:26 Respiratory Assessment Respiratory Assessment - senior resident care director: Respiratory Tract Infection Hx - senior resident care director Hx Respiratory Tract Infection No 01/22/25 10:17 STOP Sleep Apnea STOP Sleep Apnea - senior resident care director: STOP Sleep Apnea - senior resident care director Hx Hypertension Yes: currently trying to 01/22/25 10:17 control, recent med changes Hx Sleep Apnea No 01/22/25 10:17 CPAP No 06/26/23 09:55 BIPAP No 04/15/22 14:50 Do you snore loudly (louder No 01/22/25 10:17 than talking or can be heard Do you often feel tired/ No 01/22/25 10:17 fatigued/ sleepy during daytime? Has anyone observed you stop No 01/22/25 10:17 breathing during sleep? STOP Results Negative 01/22/25 10:17 QUESTION #5 FULL TEXT : Do you snore loudly (louder than talking or can be heard through closed doors)? 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 Specify any problems Hx of Preganancy in last 3 N/A 01/22/25 10:17 Months Nurse Filling Out Transfusion NBUCHER 01/22/25 10:17 & Questions: Date: 01/22/25 01/22/25 10:17 Time: 10:26 01/22/25 10:17 Patient unable to answer at this time (ie. confused, unrespo /Reproduction History /Reproductive History - senior resident care director: /Reproductive Hx- senior resident care director Hx Now No 01/22/25 10:17 Gestational Age (in weeks): EDC: Hx Hx Para Hx Section SAB No 01/22/25 10:17 Does the father of the baby or his family experience fever w Father of the baby Malignant Hypertension history comment Active Medications Active Medications: Current Medications Generic Name Dose Route Start Last Admin Trade Name Freq PRN Reason Stop Dose Admin Cefazolin Sodium 2 gm/ Sodium 110 mls @ 200 mls/hr 01/31/25 07:00 Chloride IV 01/31/25 07:32 INTRAOP ONE Lactated Ringer's 1,000 mls @ 15 mls/hr 01/31/25 06:15 01/31/25 06:50 IV 15 mls/hr .Q48H ELMO Administration PFSH Medical History (Updated 01/22/25 @ 10:38 by Maite Hoang) Wears hearing aid Loss of hearing Wears glasses Hypothyroid Thyroid disease Arthritis BPH (benign prostatic hyperplasia) Prostate disease High cholesterol Trigeminal neuralgia Difficulty chewing History of hiatal hernia History of GI bleed History of heart attack History of echocardiogram Cardiology follow-up encounter History of rib fracture History of hip fracture Right carpal tunnel syndrome Colonization with drug-resistant bacteria Generalized weakness Hip fracture, right Atrial fibrillation and flutter S/P right hip fracture Transfusion of blood during current hospitalisation Symptomatic anemia Right knee pain Bleeding tendency Heart attack Hearing loss, left Fall Laceration of right facial nerve Rib fractures History of trigeminal neuralgia Action tremor Acute on chronic anemia Longstanding persistent atrial fibrillation History of hypothyroidism Fall 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 Hemothorax on right Multiple fractures of ribs of right side Atherosclerotic heart disease of [place] coronary artery without angina pectoris Unstable angina Non-ST elevated myocardial infarction Trigeminal nerve disease Brainstem tumor Hyperlipemia Back problem Hypertension Home Medications ?Medication ?Instructions ?Recorded ?Last Taken ?Type magnesium oxide 400 mg PO BID supplement #60 tabs 04/21/23 01/30/25 Rx acetaminophen 500 mg tablet 1,000 mg (2 x 500 mg) PO Q8H PRN 07/10/23 Unknown Rx fever or pain #180 tabs ergocalciferol (vitamin D2) 1,250 1,250 mcg PO QWEEK 10/04/23 01/30/25 History mcg (50,000 unit) capsule nitroglycerin 0.4 mg sublingual 0.4 mg sublingual Q5-15M PRN chest 10/04/23 Unknown Rx tablet (Nitrostat) pain #25 tabs apixaban 5 mg tablet 5 mg PO BID [facility]ed [facility] 06/16/24 01/28/25 Rx [facility] #180 tabs Fruits supplement 1 cap PO QDAY 08/03/24 01/30/25 History ferrous gluconate 324 mg (37.5 mg 324 mg PO QDAY 08/03/24 01/30/25 History iron) tablet veggies supplement 1 cap PO QDAY 08/03/24 01/30/25 History aspirin 81 mg tablet,delayed 81 mg PO DAILY #90 tabs 09/20/24 01/30/25 Rx release (Adult Low Dose Aspirin) atorvastatin 40 mg tablet (Lipitor) 40 mg PO QHS cholesterol #90 tabs 09/20/24 01/30/25 Rx carbamazepine 200 mg tablet 200 mg PO TID trigeminal neuralgia 09/20/24 01/31/25 Rx (Tegretol) #270 tabs diltiazem HCl 240 mg 240 mg PO DAILY blood pressure #90 09/20/24 Unknown Rx capsule,extended release 24 hr caps levothyroxine 50 mcg tablet 50 mcg PO DAILY@0600 thyroid #90 09/20/24 01/31/25 Rx tabs tamsulosin 0.4 mg capsule 0.4 mg PO BID bladder #180 caps 09/20/24 01/30/25 Rx lisinopril 20 mg tablet 20 mg PO BID #60 tabs 11/30/24 01/30/25 Rx hydralazine 50 mg tablet 50 mg PO TID #270 tabs 01/16/25 01/30/25 Rx Prevagen 1 cap PO DAILY 01/22/25 01/30/25 History ascorbic acid (vitamin C) 1,000 mg 1 g PO DAILY 01/22/25 01/30/25 History tablet (Vitamin C) cranberry fruit 450 mg tablet 450 mg PO DAILY 01/22/25 01/30/25 History (cranberry) Allergy/AdvReac Type Severity Reaction Status Date / Time No Known Allergies Allergy Verified 01/22/25 10:05 Family History Other Heart disease Surgical History (Updated 01/22/25 @ 10:38 by Maite Hoang) S/P CABG (coronary artery bypass graft) History of heart surgery History of esophagogastroduodenoscopy (EGD) History of open reduction and internal fixation (ORIF) procedure History of chest tube placement Status post aorto-coronary artery bypass graft Hx of tonsillectomy Hx of skin graft History of prostate surgery Social History (Reviewed 01/01/25 @ 13:28 by JANA Alcantara Smoking Status: Former smoker how long ago did patient quit smokin02/08/1969 alcohol intake: never substance use type: does not use what type of physical activity do you participate in: none Review of Systems (Anesthesia) ROS Narrative System reviewed and no additional complaints, except as documented.
--- NOTE | 2025-01-31 07:10 | PCM.HP.STD ---
HPI - General HPI Narrative MARGARET CREWS, is a 84 M who presents for right endoscopic carpal tunnel release. No changes to history and physical exam. Right wrist marked. Questions answered. Blood thinner held. Risks alternatives benefits discussed as well as postoperative instructions and narcotic counseling the patient understands wished to proceed no further questions. MR#: [id number] Acct: [id number] Name: MARGARET CREWS Rep #: [id number] : 1940 Provider: Dr. Harish Faulkner MD Age/Sex: 84/M [place] [facility] [place] Status: Signed Intake Vital Signs 12/22/2506:48 01/01/2513:24 Height 5 ft 10 in 5 ft 10 in Weight: 202 lb 203 lb BMI 29.0 29.1 BP 155/71 H Blood Pressure Location Lt brachial Position Sitting Respiration 18 Pulse 66 Pulse Source Monitor Intake Visit Reasons: RIGHT HAND Chief Complaint: Right hand pain Accompanied by: Daughter Is patient in pain?: Yes Pain scale (1-10): 2 Allergies No Known Allergies Allergy (Verified 01/01/25 13:27) Medications ?Medication ?Instructions ?Recorded ?Confirmed ?Type magnesium oxide 400 mg PO BID supplement #60 tabs 04/21/23 01/01/25 Rx acetaminophen 500 mg tablet 1,000 mg (2 x 500 mg) PO Q8H PRN 07/10/23 01/01/25 Rx fever or pain #180 tabs ergocalciferol (vitamin D2) 1,250 1,250 mcg PO QWEEK 10/04/23 01/01/25 History mcg (50,000 unit) capsule nitroglycerin 0.4 mg sublingual 0.4 mg sublingual Q5-15M PRN chest 10/04/23 01/01/25 Rx tablet (Nitrostat) pain #25 tabs apixaban 5 mg tablet 5 mg PO BID [facility]/16/24 01/01/25 Rx [facility] #180 tabs Fruits supplement PO QDAY 08/03/24 01/01/25 History ferrous gluconate 324 mg (37.5 mg 324 mg PO QDAY 08/03/24 01/01/25 History iron) tablet veggies supplement PO QDAY 08/03/24 01/01/25 History aspirin 81 mg tablet,delayed 81 mg PO DAILY #90 tabs 09/20/24 01/01/25 Rx release (Adult Low Dose Aspirin) atorvastatin 40 mg tablet (Lipitor) 40 mg PO QHS cholesterol #90 tabs 09/20/24 01/01/25 Rx carbamazepine 200 mg tablet 200 mg PO TID seziures #270 tabs 09/20/24 01/01/25 Rx (Tegretol) diltiazem HCl 240 mg 240 mg PO DAILY blood pressure #90 09/20/24 01/01/25 Rx capsule,extended release 24 hr caps levothyroxine 50 mcg tablet 50 mcg PO DAILY@0600 thyroid #90 09/20/24 01/01/25 Rx tabs tamsulosin 0.4 mg capsule 0.4 mg PO BID bladder #180 caps 09/20/24 01/01/25 Rx lisinopril 20 mg tablet 20 mg PO BID #60 tabs 11/30/24 01/01/25 Rx hydralazine 50 mg tablet 50 mg PO TID #270 tabs 12/22/24 01/01/25 Rx Have you fallen in the past year?: No PFSH Medical History Right carpal tunnel syndrome S/P right hip fracture Current use of custodial anticoagulation Colonization with drug-resistant bacteria Generalized weakness Symptomatic anemia Acute on chronic anemia Atrial fibrillation and flutter History of trigeminal neuralgia Transfusion of blood during current hospitalisation Rib fractures Hip fracture, right Right knee pain Bleeding tendency Heart attack Hearing loss, left Fall Laceration of right facial nerve Action tremor Longstanding persistent atrial fibrillation History of hypothyroidism Fall Hemothorax on right Multiple fractures of ribs of right side 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 Unstable angina Non-ST elevated myocardial infarction Trigeminal nerve disease Brainstem tumor Hyperlipemia Back problem Hypertension Surgical History History of open reduction and internal fixation (ORIF) procedure History of chest tube placement Status post aorto-coronary artery bypass graft Hx of tonsillectomy Hx of skin graft History of prostate surgery Family History Other Heart disease Social History Smoking Status: Former smoker how long ago did patient quit smokin02/08/1969 alcohol intake: never substance use type: does not use what type of physical activity do you participate in: none HPI RIGHT HAND Details: This documentation accurately reflects the service provided and the decisions made by me, Dr. Harish Faulkner MD 01/01/25 0928. Part of today?s visit was documented by [ ], acting as scribe. MARGARET CREWS is a 84 year old M here today for Right CTS. middle and index finger tingling. worse at night. 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 1-2 years. LHD. eats with the right, can't grab a spoon. has to shake it out. no tx. Questionnaire Social Determinants of Health* SDOH Screening Will the patient participate in the screening?: declined to provide Supplemental Info [facility]monary [facility]/Neurology [address] [place] [address] MR#: [id number] Acct: [id number] Name: MARGARET CREWS Rep #: [id number] : 1940 84 From: Blade Espino MD Referring Dr: Jolly Brady MD Status: REG CLI Location: [facility] Date: 12/20/24 Sex: M C NCS and/or EMG Patient Report Ordering Doctor: Jolly Brady DATE OF SERVICE: 12/20/24 Margaret presents for electrodiagnostic testing of the right upper limb. He reports numbness and tingling in the right hand. Electrodiagnostic findings: Right median motor nerve demonstrates prolonged distal latency with reduced amplitude and reduced conduction velocity. Right ulnar motor response within normal limits. Prolonged right median F?wave. Prolonged right ulnar F?wave. Absent right median sensory latency at the wrist and palm. Needle EMG testing was performed in the right upper limb. Motor unit action potentials were of normal amplitude and duration. Electrodiagnostic impression: This is an abnormal study. 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 This consistent with a severe right carpal tunnel syndrome. Multi Select Codes Neurology Neurology Interp Codes: 81220-60 Musc test done w/n test comp (interp) and 13595-56 Nrv cndj tst 5-6 studies (interp) Coding Level of Care Code Off vis,new,level 4 Diagnoses Right carpal tunnel syndrome G56.01 Additional Codes Intake - Is patient in pain?: Yes (1125F) Assessment and Plan Assessment and Plan (1) Right carpal tunnel syndrome: Status: Acute Plan: 84-year-old male with severe right carpal tunnel syndrome. We discussed the diagnosis prognosis different treatment patients. The patient is more interested in a definitive surgical solution. Given the patient's age and severity this would be a little bit more unreliable given his age over 81 and the severe nature of the problem with atrophy. This can take up to a year to fully improve and I did warn the patient of this that surgery is not a guarantee. Him and his daughter would like to go ahead with right endoscopic carpal tunnel release on the paperwork we will begin contact as well with cardiology to ensure it is okay to hold his Eliquis before surgery. Patient understands and signed consent form for right endoscopic carpal tunnel release. Pros and cons risks and benefits were discussed with the patient including but not limited to infection, pain, stiffness, bleeding, damage to surrounding structures, neurovascular injury, recurrence or retear, failure or wear of hardware or fixation, instability, fracture, deep vein thrombosis and pulmonary embolism, anesthetic risks, , patient dissatisfaction, need for further surgery and other risks. Patient understood and wished to proceed with surgery, and signed the informed consent documentation. Carpal Tunnel Syndrome (CTS) occurs when the median nerve, which runs through the wrist, becomes compressed. Treatment options vary based on the severity of the condition: Non-Surgical Treatments: Wrist Splinting: Wearing a splint at night to keep the wrist in a neutral position. Activity Modification: Avoiding repetitive wrist movements or adjusting work habits. Physical Therapy: Exercises to improve wrist and hand function. Medications: Anti-inflammatory drugs (NSAIDs) or corticosteroid injections to reduce swelling and pain. Surgical Treatment: Carpal Tunnel Release Surgery: A procedure where the ligament pressing on the median nerve is cut to relieve pressure. This is considered when non-surgical treatments are ineffective. Options are min-open or endoscopic. Clinical Quality Measures Falls Risk Screening/Assistive Devices Have you fallen in the past year?: No Ortho Exam General General: Yes no acute distress Neurologic: Yes alert and Yes oriented x3 Psychologic: Yes reasonable and appropriate Right Wrist/Hand Skin/Wound: Yes CDI, No Swelling, No Ecchymosis, Yes nail intact and Yes capillary refill normal Right Wrist: Yes ROM-Extension 0-60, ROM-Pronation 0-80, ROM-Supination 0-90, Phalen's and Thenar Atrophy; No Tinel's or Hypothenar Atrophy Motor: EPL: 5, FDP-2: 5, 1st Dorsal Interosseous: 5 and APB: 4 Sensation: Radial: I, Ulnar: I and Median: D Left Wrist/Hand Skin/Wound: No Swelling and No Ecchymosis [facility] Medical History (Updated 01/22/25 @ 10:38 by Maite Hoang) Wears hearing aid Loss of hearing Wears glasses Hypothyroid Thyroid disease Arthritis BPH (benign prostatic hyperplasia) Prostate disease High cholesterol Trigeminal neuralgia Difficulty chewing History of hiatal hernia History of GI bleed History of heart attack History of echocardiogram Cardiology follow-up encounter History of rib fracture History of hip fracture Right carpal tunnel syndrome Colonization with drug-resistant bacteria Generalized weakness Hip fracture, right Atrial fibrillation and flutter S/P right hip fracture Transfusion of blood during current hospitalisation Symptomatic anemia Right knee pain Bleeding tendency Heart attack Hearing loss, left Fall Laceration of right facial nerve Rib fractures History of trigeminal neuralgia Action tremor Acute on chronic anemia Longstanding persistent atrial fibrillation History of hypothyroidism Fall Current use of custodial anticoagulation Hemothorax on right Multiple fractures of ribs of right side 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 Unstable angina Non-ST elevated myocardial infarction Trigeminal nerve disease Brainstem tumor Hyperlipemia Back problem Hypertension Home Medications ?Medication ?Instructions ?Recorded ?Last Taken ?Type magnesium oxide 400 mg PO BID supplement #60 tabs 04/21/23 01/30/25 Rx acetaminophen 500 mg tablet 1,000 mg (2 x 500 mg) PO Q8H PRN 07/10/23 Unknown Rx fever or pain #180 tabs ergocalciferol (vitamin D2) 1,250 1,250 mcg PO QWEEK 10/04/23 01/30/25 History mcg (50,000 unit) capsule nitroglycerin 0.4 mg sublingual 0.4 mg sublingual Q5-15M PRN chest 10/04/23 Unknown Rx tablet (Nitrostat) pain #25 tabs apixaban 5 mg tablet 5 mg PO BID [facility]/16/24 01/28/25 Rx [facility] #180 tabs Fruits supplement 1 cap PO QDAY 08/03/24 01/30/25 History ferrous gluconate 324 mg (37.5 mg 324 mg PO QDAY 08/03/24 01/30/25 History iron) tablet veggies supplement 1 cap PO QDAY 08/03/24 01/30/25 History aspirin 81 mg tablet,delayed 81 mg PO DAILY #90 tabs 09/20/24 01/30/25 Rx release (Adult Low Dose Aspirin) atorvastatin 40 mg tablet (Lipitor) 40 mg PO QHS cholesterol #90 tabs 09/20/24 01/30/25 Rx carbamazepine 200 mg tablet 200 mg PO TID trigeminal neuralgia 09/20/24 01/31/25 Rx (Tegretol) #270 tabs diltiazem HCl 240 mg 240 mg PO DAILY blood pressure #90 09/20/24 Unknown Rx capsule,extended release 24 hr caps levothyroxine 50 mcg tablet 50 mcg PO DAILY@0600 thyroid #90 09/20/24 01/31/25 Rx tabs tamsulosin 0.4 mg capsule 0.4 mg PO BID bladder #180 caps 09/20/24 01/30/25 Rx lisinopril 20 mg tablet 20 mg PO BID #60 tabs 11/30/24 01/30/25 Rx hydralazine 50 mg tablet 50 mg PO TID #270 tabs 01/16/25 01/30/25 Rx Prevagen 1 cap PO DAILY 01/22/25 01/30/25 History ascorbic acid (vitamin C) 1,000 mg 1 g PO DAILY 01/22/25 01/30/25 History tablet (Vitamin C) cranberry fruit 450 mg tablet 450 mg PO DAILY 01/22/25 01/30/25 History (cranberry) Allergy/AdvReac Type Severity Reaction Status Date / Time No Known Allergies Allergy Verified 01/22/25 10:05 Family History Other Heart disease Surgical History (Updated 01/22/25 @ 10:38 by Maite Hoang) S/P CABG (coronary artery bypass graft) History of heart surgery History of esophagogastroduodenoscopy (EGD) History of open reduction and internal fixation (ORIF) procedure History of chest tube placement Status post aorto-coronary artery bypass graft Hx of tonsillectomy Hx of skin graft History of prostate surgery Social History Smoking Status: Former smoker how long ago did patient quit smokin02/08/1969 alcohol intake: never substance use type: does not use what type of physical activity do you participate in: none Patient's Goals Of Care . What would you like to achieve or improve as a result of your hospital stay?: n/a Vital Signs Vital Signs Vital Signs: 01/31/25 06:22 01/31/25 06:26 01/31/25 06:48 Temperature 98.1 F Temperature Source Temporal Pulse Rate 89 Respiratory Rate 16 Respiratory Pattern Normal Blood Pressure 208/109 H Blood Pressure Mean 142 Blood Pressure Source Monitor Blood Pressure Position Semi-Fowlers Blood Pressure Location Left Arm Baseline BP 174/109 Pulse Ox 100 Oxygen Delivery Method Room Air 01/31/25 06:56 Temperature 98.1 F Temperature Source Pulse Rate 89 Respiratory Rate 16 Respiratory Pattern Blood Pressure 208/109 H Blood Pressure Mean Blood Pressure Source Blood Pressure Position Blood Pressure Location Baseline BP Pulse Ox 100 Oxygen Delivery Method Weight Weight: 198 lb 6.656 oz Body Mass Index (BMI) 27.6
[2025-01-31] MEDS: Cefazolin 1 GM/5 ML Vial 2 GM IV (07:23)
[2025-01-31] MEDS: Lidocaine 1% (5 ml sdv) 5 ML Vial 6 ML IV (07:28)
--- NOTE | 2025-01-31 07:51 | OP.PCM_ITS ---
Procedures Musculoskeletal 20xxx-29xxx: Other Procedure See Report Operative Report (Standard) Operative Information Date of Procedure: 01/31/25 Pre-Operative Diagnosis: R CTS Post-Operative Diagnosis: same Surgery/Procedure Performed: R ECTR button maker and installer: Yes Full Stack Net Developer: howie Tasks completed by engineer first assistant: Retracting Type of Anesthesia: General and Local RN Documented Start/Stop Times: Operation Date: 01/31/25 07:30 Case Time Into Pre-Op 01/31/25 06:07 Out of Pre-Op 01/31/25 07:18 Anesthesia Start 01/31/25 07:23 Into Room 01/31/25 07:23 Procedure Start 01/31/25 07:38 Procedure End 01/31/25 07:48 Procedure Start Time: 07:38 Procedure Stop Time: 07:48 Select all DRAINS/GRAFTS/IMPLANTS that apply: None Estimated Blood Loss: 5 Specimen collected: No Description of surgery: Patient brought to the operating room theater. Placed supine upon on the table. 2g iv ancef before the start of the case. MAC induced by the anesthetic team. Patient placed supine on the table all bony prominences padded. SCDs on the legs. Hand table used right side. Tourniquet applied properly padded to the upper extremity. Upper extremity prepped and draped in the usual sterile fashion with chlorhexidine-based prep solution allowing over 3 minutes drying time prior to draping. Preoperative timeout performed to confirm the site patient and the surgery. Began by elevating the limb and inflated the tourniquet to 250 mmHg. I used the [employer] center line endoscopic carpal tunnel kit technique. 5cc 0.25% bupivicaine for local anesthesia. I made a transverse 2 cm incision in line with the? transverse wrist crease.? This was in line with the fourth digit.? I carried the dissection down through skin and subcutaneous tissue achieved meticulous hemostasis. Just ulnar to palmaris tendon.? I incised the antebrachial fascia, in a U shape.? I passed sequential dilators into the carpal tunnel along the radial border of the Guyon's canal aiming for the fourth digit with the wrist in extension.? I used a synovial elevator to identify the transverse fibers of the transverse carpal tunnel ligament.? Passed the scope into the carpal tunnel. Once I had identified the full proximal and distal extent of the ligament I fully released the ligament under direct visualization by deploying the blade and slowly withdrawing the scope made sequential passes until I no longer felt tension as well as the entire extent of the ligament was released under direct visualization.? Sounded the tunnel with sparks tenotomy scissors, complete release, no bands. Nerve visualized and protected. Arthroscope light was more visible through the skin. More room for the large dilator. Release the forearm fascia also proximal. Pictures taken and saved. Wounds thoroughly irrigated.? Tourniquet let down prior to end of the case and meticulous hemostasis achieved.? Thorough irrigation.? ? Incisions closed with 3-0 ethilon, horizontal mattress. ?Then adaptic 4x4 gauze and tape. Patient woken up,? transferred off the operating room table and taken to postanesthetic care unit in stable condition. All sponge needle instrument counts were correct no complications.?Plan for the patient to be discharged home according to day surgery criteria when they are comfortable. Follow-up in the office in 2 days time. Gentle ROM finger and elbow no heavy lifting. Recommend wrist brace 2 [place] [address] Surgical Findings: as above Complications Complications: No Admit VTE Documentation VTE Present on Admission: No VTE Mechan Device Prophylaxis: SCD's VTE Pharm Prophylaxis ordered?: No Reason prophylaxis not ordered: Treatment Not Indicated
--- NOTE | 2025-01-31 07:52 | DCINST_ITS ---
Discharge Instructions Diet Discharge Diet: No restrictions Activity Discharge Activity: Return to Normal Activity Lifting Restrictions: no repetitive or heavy lifting Keep extremity elevated above heart level: Operative Extremity Dressing / Incision Call your doctor if your incision/area has: Continuous Slow Oozing, Sudden Increased Bleeding, Increased Pain/ Swelling, Increased Redness, Foul Smelling Discharge and Swelling at the incision site Call your doctor if you observe: Fever of 101 or Higher, Coldness, Increased Pain and Numbness or Tingling Change Dressing in: 2 days Cleanse incision/area with: Do not get Incision Wet Follow Up Care Please Follow Up With: Harish Faulkner MD When: within 2 weeks Test Results: Test results from this visit will be discussed in further detail at your follow- up appointment, if applicable. Discharge Plan Admission Attending Provider: Harish Faulkner Primary Care Provider: Jolly Brady Instructions Patient Instructions: Carpal Tunnel Release Surgery Print Language: [place] Discharge Orders/Prescriptions Prescriptions: No Action ergocalciferol (vitamin D2) 1,250 mcg (50,000 unit) capsule 1,250 mcg PO QWEEK nitroglycerin [Nitrostat] 0.4 mg tablet, sublingual 0.4 mg sublingual Q5-15M PRN (Reason: chest pain) Qty: 25 3RF Rx Instructions: do not exceed 3 doses per episode Fruits supplement capsule 1 cap PO QDAY veggies supplement capsule 1 cap PO QDAY ferrous gluconate 324 mg (37.5 mg iron) tablet 324 mg PO QDAY magnesium oxide 400 mg magnesium tablet 400 mg PO BID Qty: 60 0RF acetaminophen 500 mg Tablet 1,000 mg PO Q8H PRN (Reason: fever or pain) Qty: 180 0RF Rx Instructions: Take Tylenol every 8 hours as need for pain or fever. Prevagen 1 cap PO DAILY ascorbic acid (vitamin C) [Vitamin C] 1,000 mg tablet 1 g PO DAILY cranberry 450 mg tablet 450 mg PO DAILY Rx Instructions: administer with a meal apixaban 5 mg tablet 5 mg PO BID Qty: 180 3RF Rx Instructions: Please contact patient's daughter Joanne Talley at [phone] atorvastatin [Lipitor] 40 mg tablet 40 mg PO QHS Qty: 90 3RF carbamazepine [Tegretol] 200 mg tablet 200 mg PO TID Qty: 270 3RF Patient Comments: 1st dose taken today 06/16 levothyroxine 50 mcg tablet 50 mcg PO DAILY@0600 Qty: 90 3RF tamsulosin 0.4 mg capsule 0.4 mg PO BID Qty: 180 3RF aspirin [Adult Low Dose Aspirin] 81 mg tablet,delayed release (DR/EC) 81 mg PO DAILY Qty: 90 3RF diltiazem HCl 240 mg capsule,extended release 24hr 240 mg PO DAILY Qty: 90 3RF lisinopril 20 mg tablet 20 mg PO BID Qty: 60 11RF hydralazine 50 mg tablet 50 mg PO TID Qty: 270 3RF Referrals / Follow Up: Jolly Brady MD [Primary Care Provider, Internal Medicine - [facility]] Harish Faulkner MD [Med Staff - Active Staff, Orthopedics] Disposition Disposition (needs filled in before D/C Order can be placed): Home, Self Care
--- NOTE | 2025-01-31 08:10 | PCM.POST.ANE ---
Anesthesia: Postop Eval I Current Vital Signs Temperature: 98.1 F Pulse Rate: 67 Blood Pressure: 127/51 Respiratory Rate: 16 Pulse Ox: 98 Assessment Airway patent: Yes Spontaneous unlabored respirations: Yes nausea: No Vomiting: No Anesthesia Complication: No Fluid Hydration Crystalloid volume administer (ml): 200 Total IV fluid infused: 200 Progress Note Anesthesia document: Postop Eval 1 completed: Yes
--- NOTE | 2025-01-31 14:08 | POSTOPAN2_ITS ---
Anesthesia Postop Eval I Sum Postop Eval Completion status Anesthesia document: Postop Eval 1 completed: Yes Anesthesia Postop Eval I Summary Anesthesia Postop Eval I Summary: Anesthesia Postop Eval I: Assessment Summary Airway patent Yes 01/31/25 08:10 CIRCUS TRAIN SUPERVISOR.TNES Spontaneous unlabored Yes 01/31/25 08:10 CIRCUS TRAIN SUPERVISOR.TNES respirations Mental status nausea No 01/31/25 08:10 CIRCUS TRAIN SUPERVISOR.TNES Vomiting No 01/31/25 08:10 CIRCUS TRAIN SUPERVISOR.TNES Anesthesia Postop Eval I: Fluid Summary Crystalloid volume administer 200 01/31/25 08:10 CIRCUS TRAIN SUPERVISOR.TNES (ml) Colloids volume administered ( ml) Blood Product volume administered (ml) Total IV fluid infused 200 01/31/25 08:10 CIRCUS TRAIN SUPERVISOR.TNES Anesthesia Postop Eval I: Summary Notes Anesthesia Complication No 01/31/25 08:10 CIRCUS TRAIN SUPERVISOR.TNES Anesthesia Complication Comment: Post-operative progress note Anesthesia: Postop Eval II Evaluation Mental status: Awake Pain Level: 0 nausea: No Vomiting: No
--- NOTE | 2025-01-31 14:08 | PCM.POSTANE2 ---
Anesthesia Postop Eval I Sum Postop Eval Completion status Anesthesia document: Postop Eval 1 completed: Yes Anesthesia Postop Eval I Summary Anesthesia Postop Eval I Summary: Anesthesia Postop Eval I: Assessment Summary Airway patent Yes 01/31/25 08:10 SOFTWARE SUPPORT REPRESENTATIVE.TNES Spontaneous unlabored Yes 01/31/25 08:10 SOFTWARE SUPPORT REPRESENTATIVE.TNES respirations Mental status nausea No 01/31/25 08:10 SOFTWARE SUPPORT REPRESENTATIVE.TNES Vomiting No 01/31/25 08:10 SOFTWARE SUPPORT REPRESENTATIVE.TNES Anesthesia Postop Eval I: Fluid Summary Crystalloid volume administer 200 01/31/25 08:10 SOFTWARE SUPPORT REPRESENTATIVE.TNES (ml) Colloids volume administered ( ml) Blood Product volume administered (ml) Total IV fluid infused 200 01/31/25 08:10 SOFTWARE SUPPORT REPRESENTATIVE.TNES Anesthesia Postop Eval I: Summary Notes Anesthesia Complication No 01/31/25 08:10 SOFTWARE SUPPORT REPRESENTATIVE.TNES Anesthesia Complication Comment: Post-operative progress note Anesthesia: Postop Eval II Evaluation Mental status: Awake Pain Level: 0 nausea: No Vomiting: No
== END 2025-01-31 09:07 | disposition home or self-care (01) ==
LOC: SDC 06:02 → AC 06:05
PROVIDERS: PCP Internal Medicine; Referring Provider Orthopaedic Surgery Sports Medicine; Visit Provider Orthopaedic Surgery Sports Medicine
PROC: (CPT 29848; principal; 2025-01-31 07:15)
DX: G56.01 Carpal tunnel syndrome, right upper limb (principal); I48.11 Longstanding persistent atrial fibrillation; I25.10 Atherosclerotic heart disease of native coronary artery without angina pectoris; Z79.899 Other long term (current) drug therapy; Z79.01 Long term (current) use of anticoagulants; Z87.891 Personal history of nicotine dependence; E78.5 Hyperlipidemia, unspecified; I10 Essential (primary) hypertension; E03.9 Hypothyroidism, unspecified; Z79.890 Hormone replacement therapy
CPT/HCPCS: 29848; 01830